=== PATIENT | male | born 1945 | race Hispanic/Latino ===

== ENCOUNTER 2018-08-21 03:56 | Inpatient (IN) | payer MEDICARE, OTHER ==
[~2018-08-21 03:56] MED LIST: ADRENALIN ONE
--- NOTE | 2018-08-21 04:48 | Emergency Department Report ---
ED Shortness of Breath HPI - General Chief Complaint: Cardiac Arrest/CPR Stated Complaint: RESP DISTRESS Time Seen by Provider: 08/21/18 04:09 Source: EMS Mode of arrival: Stretcher Limitations: Other - History of Present Illness Initial Comments: 73-year-old male with history of COPD, sleep apnea, chronic kidney disease, liver disease, morbid obesity presents to ED in respiratory arrest. states patient has been having some shortness of breath since being discharged from the [facility] at the end of last month. Patient is on 2 L of O2 chronically. Uses CPAP at night. Prior to EMS arrival patient became increasingly short of breath while on his CPAP. EMS states patient was alert and talking on their arrival but was slightly confused. O2 sats in the 80s on CPAP. Patient then went into cardiac arrest with EMS just prior to arrival, with reported rhythm of asystole. Upon ED arrival patient noted to be in PEA. ACLS was initiated. MD Complaint: shortness of breath -: During the night Severity: severe Improves With: nothing Worsens With: exertion Known History Of: COPD Treatments Prior to Arrival: oxygen, intubation - Related Data Home Oxygen Therapy: Yes Home Oxygen Amount: 2 Liters Home Medications Medication Instructions Recorded Confirmed Last Taken AtorvaSTATin [Lipitor] 10 mg PO QHS 08/21/18 08/21/18 Unknown Ferrous Sulfate [Feosol] 325 mg PO QDAY 08/21/18 08/21/18 Unknown Melatonin [Melatonin 10MG CAP] 10 mg PO DAILY 08/21/18 08/21/18 Unknown NIFEdipine [Nifedipine ER] 60 mg PO BID 08/21/18 08/21/18 Unknown Sennosides Tab [Senokot] 1 tab PO HS 08/21/18 08/21/18 Unknown Tamsulosin [Flomax] 2 cap PO HS 08/21/18 08/21/18 Unknown Torsemide [Demadex] 20 mg PO DAILY 08/21/18 08/21/18 Unknown Venlafaxine HCl [Venlafaxin ER] 75 mg PO QDAY 08/21/18 08/21/18 Unknown buPROPion [Wellbutrin] 100 mg PO DAILY 08/21/18 08/21/18 Unknown Allergies Allergy/AdvReac Type Severity Reaction Status Date / Time Penicillins Allergy Unknown Verified 08/21/18 04:49 -cillins Allergy Unknown Uncoded 06/24/19 04:49 ED Review of Systems ROS: Stated complaint: RESP DISTRESS Other details as noted in HPI Comment: Unobtainable due to pts medical conditions (cardiac arrest) ED Past Medical Hx - Past Medical History Previous Medical History?: Yes Hx COPD: Yes - Surgical History Past Surgical History?: Yes Additional Surgical History: unknown - Social History Smoking Status: Unknown if ever smoked - Medications Home Medications: Home Medications Medication Instructions Recorded Confirmed Last Taken Type AtorvaSTATin [Lipitor] 10 mg PO QHS 08/21/18 08/21/18 Unknown History Ferrous Sulfate [Feosol] 325 mg PO QDAY 08/21/18 08/21/18 Unknown History Melatonin [Melatonin 10MG CAP] 10 mg PO DAILY 08/21/18 08/21/18 Unknown History NIFEdipine [Nifedipine ER] 60 mg PO BID 08/21/18 08/21/18 Unknown History Sennosides Tab [Senokot] 1 tab PO HS 08/21/18 08/21/18 Unknown History Tamsulosin [Flomax] 2 cap PO HS 08/21/18 08/21/18 Unknown History Torsemide [Demadex] 20 mg PO DAILY 08/21/18 08/21/18 Unknown History Venlafaxine HCl [Venlafaxin ER] 75 mg PO QDAY 08/21/18 08/21/18 Unknown History buPROPion [Wellbutrin] 100 mg PO DAILY 08/21/18 08/21/18 Unknown History ED Physical Exam - General Limitations: Other General appearance: obese - Head Head exam: Present: atraumatic, normocephalic - Eye Eye exam: Present: normal appearance, PERRL - ENT ENT exam: Present: mucous membranes moist - Neck Neck exam: Present: normal inspection - Respiratory Respiratory exam: Present: other (agonal breaths present) - Cardiovascular Cardiovascular Exam: Present: other (pulseless) - GI/Abdominal GI/Abdominal exam: Present: soft. Absent: distended - Extremities Exam Extremities exam: Absent: pedal edema - Neurological Exam Neurological exam: Present: other (GCS= 3) - Skin Skin exam: Present: warm, dry, intact, normal color ED Course Vital Signs 08/21/18 08/21/18 08/21/18 03:56 04:00 04:16 Temperature Pulse Rate 65 74 Respiratory 43 H 13 Rate Blood Pressure 129/64 141/66 O2 Sat by Pulse 84 80 L 100 Oximetry 08/21/18 08/21/18 08/21/18 04:30 05:00 05:15 Temperature Pulse Rate 66 69 69 Respiratory 16 19 11 L Rate Blood Pressure 129/58 125/55 107/62 O2 Sat by Pulse 100 99 96 Oximetry 08/21/18 08/21/18 08/21/18 05:30 05:45 05:48 Temperature Pulse Rate 65 63 Respiratory 15 17 Rate Blood Pressure 101/68 106/37 O2 Sat by Pulse 96 94 100 Oximetry 08/21/18 08/21/18 08/21/18 06:00 06:15 06:30 Temperature Pulse Rate 63 72 73 Respiratory 16 16 16 Rate Blood Pressure 110/45 99/34 124/40 O2 Sat by Pulse 93 97 93 Oximetry 08/21/18 08/21/18 08/21/18 06:45 07:00 07:01 Temperature Pulse Rate 73 72 Respiratory 17 15 Rate Blood Pressure 117/42 134/68 O2 Sat by Pulse 95 96 94 Oximetry 08/21/18 08/21/18 08/21/18 07:15 07:30 07:45 Temperature Pulse Rate 70 68 65 Respiratory 23 26 H 26 H Rate Blood Pressure 124/50 119/75 117/50 O2 Sat by Pulse 99 97 99 Oximetry 08/21/18 08/21/18 08/21/18 08:00 08:15 08:24 Temperature Pulse Rate 62 60 59 L Respiratory 26 H 26 H Rate Blood Pressure 117/52 110/52 110/47 O2 Sat by Pulse 99 98 98 Oximetry 08/21/18 08/21/18 08/21/18 08:30 08:45 09:00 Temperature Pulse Rate 59 L 58 L 57 L Respiratory 26 H 26 H 26 H Rate Blood Pressure 113/50 112/50 106/52 O2 Sat by Pulse 95 97 97 Oximetry 08/21/18 08/21/18 08/21/18 09:15 09:30 09:45 Temperature Pulse Rate 58 L 62 64 Respiratory 26 H 20 23 Rate Blood Pressure 109/49 116/47 124/50 O2 Sat by Pulse 100 100 100 Oximetry 08/21/18 08/21/18 08/21/18 10:00 10:15 10:30 Temperature Pulse Rate 67 69 69 Respiratory 11 L 8 L 14 Rate Blood Pressure 124/52 129/52 135/62 O2 Sat by Pulse 96 96 95 Oximetry 08/21/18 08/21/18 08/21/18 10:45 11:15 11:30 Temperature Pulse Rate 71 72 72 Respiratory 12 22 18 Rate Blood Pressure 144/57 140/64 126/42 O2 Sat by Pulse 95 100 99 Oximetry 08/21/18 08/21/18 08/21/18 11:45 12:00 12:15 Temperature Pulse Rate 71 70 72 Respiratory 10 L 28 H 22 Rate Blood Pressure 120/46 120/46 123/41 O2 Sat by Pulse 96 95 97 Oximetry 08/21/18 08/21/18 08/21/18 12:31 12:45 12:51 Temperature Pulse Rate 69 72 72 Respiratory 15 28 H Rate Blood Pressure 105/45 129/46 128/48 O2 Sat by Pulse 95 100 99 Oximetry 08/21/18 08/21/18 08/21/18 13:01 13:15 13:30 Temperature Pulse Rate 72 73 73 Respiratory 12 12 11 L Rate Blood Pressure 126/76 126/47 116/50 O2 Sat by Pulse 92 Oximetry 08/21/18 08/21/18 08/21/18 13:45 14:00 14:15 Temperature Pulse Rate 71 71 74 Respiratory 13 17 20 Rate Blood Pressure 116/46 114/47 96/49 O2 Sat by Pulse 94 Oximetry 08/21/18 08/21/18 08/21/18 14:30 14:45 15:00 Temperature Pulse Rate 73 73 72 Respiratory 16 21 14 Rate Blood Pressure 111/46 110/43 111/43 O2 Sat by Pulse 89 94 95 Oximetry 08/21/18 08/21/18 08/21/18 15:15 15:30 15:45 Temperature Pulse Rate 72 72 72 Respiratory 19 25 H 22 Rate Blood Pressure 110/41 112/45 113/48 O2 Sat by Pulse 94 95 97 Oximetry 08/21/18 08/21/18 08/21/18 16:00 16:15 16:30 Temperature Pulse Rate 72 72 72 Respiratory 18 15 23 Rate Blood Pressure 113/47 115/50 115/48 O2 Sat by Pulse 100 97 97 Oximetry 08/21/18 08/21/18 08/21/18 16:45 17:00 17:15 Temperature Pulse Rate 73 73 73 Respiratory 24 10 L 10 L Rate Blood Pressure 117/47 117/49 112/47 O2 Sat by Pulse 99 100 100 Oximetry 08/21/18 08/21/18 08/21/18 17:30 17:32 17:45 Temperature 97.6 F Pulse Rate 73 73 Respiratory 13 13 Rate Blood Pressure 118/51 116/46 O2 Sat by Pulse 100 100 Oximetry 08/21/18 08/21/18 08/21/18 18:00 18:15 18:30 Temperature Pulse Rate 73 73 73 Respiratory 9 L 17 15 Rate Blood Pressure 118/48 119/49 118/47 O2 Sat by Pulse 100 100 100 Oximetry 08/21/18 08/21/18 08/21/18 18:45 19:00 19:15 Temperature Pulse Rate 73 73 73 Respiratory 11 L 18 16 Rate Blood Pressure 118/48 119/49 117/48 O2 Sat by Pulse 100 100 100 Oximetry 08/21/18 08/21/18 08/21/18 19:25 19:30 19:45 Temperature Pulse Rate 73 72 72 Respiratory 12 19 Rate Blood Pressure 114/48 116/48 116/47 O2 Sat by Pulse 100 99 97 Oximetry 08/21/18 08/21/18 08/21/18 20:00 20:15 20:30 Temperature 98.1 F Pulse Rate 72 72 72 Respiratory 18 15 13 Rate Blood Pressure 118/48 118/49 118/45 O2 Sat by Pulse 98 99 99 Oximetry 08/21/18 08/21/18 08/21/18 20:45 21:00 21:15 Temperature Pulse Rate 72 72 72 Respiratory 13 18 19 Rate Blood Pressure 121/49 117/48 118/52 O2 Sat by Pulse 99 99 99 Oximetry 08/21/18 08/21/18 08/21/18 21:30 21:45 22:00 Temperature Pulse Rate 72 74 71 Respiratory 18 12 28 H Rate Blood Pressure 124/51 126/52 118/49 O2 Sat by Pulse 99 97 99 Oximetry 08/21/18 08/21/18 08/21/18 22:15 22:30 22:45 Temperature Pulse Rate 72 71 71 Respiratory 26 H 28 H 24 Rate Blood Pressure 116/49 115/49 116/48 O2 Sat by Pulse 98 99 99 Oximetry 08/21/18 08/21/18 08/21/18 23:00 23:15 23:46 Temperature Pulse Rate 71 71 70 Respiratory 24 26 H 27 H Rate Blood Pressure 114/50 117/47 O2 Sat by Pulse 99 99 95 Oximetry 08/21/18 08/21/18 23:49 23:50 Temperature Pulse Rate 70 70 Respiratory 28 H Rate Blood Pressure 122/48 122/48 O2 Sat by Pulse 98 100 Oximetry - Reevaluation(s) Reevaluation #1: 08/21/18 04:10 Upon arrival pt in cardiac arrest. Poorly intubated by EMS, so tube removed and I intubated via Glidescope. No IV access upon arrival. After nurses obtained IV access, pt received 1 amp of bicarb, 2 rounds of Epi prior to pulse return. Right femoral line placed - Central Line Placement Right Femoral Consent Obtained: emergent situation Patient Placed on Monitor/Pulse Ox: Yes MD Prep: mask, gown, gloves Central Line Prep: Chlorhexidine scrub, sterile drapes applied Ultrasound Used for Placement: Yes Central Line Lumen Inserted: triple Central Line Position: good blood return, all ports aspirated, flus, sutured in place with nyl Dressing Applied: Tegaderm Patient Tolerated Procedure: well Complications: none - Intubation Laryngoscope: fiberoptic video scope ET Tube Size: 7.5 Tube Secured Depth (cm): 25 Tube Secured Location: teeth Tube Placement Confirmation: visualized tube passing t, equal breath sounds bilat, no breath sounds over epi, confirmation by capnometr Patient Tolerated Procedure: well Intubation Complications: none ED Medical Decision Making - Lab Data Result diagrams: 08/22/18 06:10 08/22/18 06:10 - EKG Data -: EKG Interpreted by Mn EKG shows normal: ST-T waves - EKG Data Interpretation: other (RBBB, prolonged MN, prior inferior infarct) - Radiology Data Radiology results: report reviewed, image reviewed - Medical Decision Making 73-year-old male status post cardiac arrest. Return of pulse after 2 rounds of epinephrine. Patient has WBCs and 19, with lactic acid of 5. Chest x-ray shows bilateral lower lung infiltrates with effusions. Blood cultures drawn, patient given antibiotic therapy to cover for hospital-acquired pneumonia, vancomycin and aztreonam, since he was recently hospitalized. 30/kg dosing of NS held due to volume overload. Effusions, possible edema, on CXR and BNP elevated. BP is currently stable, and administration of such a large volume of fluids may cause cardiac decline, given existing signs of cardiac and renal failure. reports history of chronic kidney disease. Creatinine is currently 4.3, with potassium of 6. Baseline creatinine is unknown, as patient has no previous records at this facility. Possibly acute on chronic renal failure. Hyperkalemia treatment initiated, including albuterol, insulin, D50, calcium chloride. EKG shows right bundle branch block, possibly widened due to the hyperkalemia. No ST changes present, troponin 0.03. Spoke w/ Dr Weber, hospitalist, for further management. - Differential Diagnosis COPD, ACS, pneumonia, pulm edema Critical Care Time: Yes Critical care time in (mins) excluding proc time.: 35 Critical care attestation.: If time is entered above; I have spent that time in minutes in the direct care of this critically ill patient, excluding procedure time. Critical Care Time: 35 minutes ED Disposition Clinical Impression: Cardiac arrest, Sepsis, Hyperkalemia, Lactic acidosis, Acute renal failure, Pneumonia Disposition: OP ADMIT IP TO THIS HOSP Is pt being admited?: Yes Condition: Stable Time of Disposition: 05:51
[2018-08-21 05:04] LABS: Hematocrit 24.5 % (35.5-45.6); Hemoglobin 7.7 gm/dl (11.8-15.2); Mean Corpuscular HGB Conc 32 % (32-34); Mean Corpuscular Hemoglobin 31 pg (28-32); Mean Corpuscular Volume 98 fl (84-94); Platelet Count 190 K/mm3 (140-440); Red Blood Count 2.49 M/mm3 (3.65-5.03); Red Cell Distribution Width 17.7 % (13.2-15.2)
[2018-08-21 05:09] LABS: INR 1.76 (0.87-1.13); Partial Thromboplastin Time 30.8 Sec. (24.2-36.6)
[2018-08-21] MEDS ORDERED: VANCOMYCIN/NS 1 GM/250 ML 1 GM/250 ML BAG IV ONE (05:15)
[2018-08-21] MEDS ORDERED: AZACTAM/NS 1 GM/50 ML 1 GM/50 ML VIAL IV ONE (05:15)
[2018-08-21] MEDS ORDERED: DIPRIVAN 10 MG/ML 1,000 MG/100 ML BOTTLE IV ONE ×2 (05:16→09:51)
[2018-08-21 05:18] LABS: Albumin 3.2 g/dL (3.9-5); Calcium 8.8 mg/dL (8.4-10.2)
[2018-08-21] MEDS ORDERED: CALCIUM CHLORIDE IV ONE (05:24)
[2018-08-21] MEDS ORDERED: KIONEX PR ONE (05:25)
[2018-08-21] MEDS ORDERED: HumuLIN R IV ONE (05:25)
[2018-08-21] MEDS ORDERED: D50W (25GM) Syringe IV ONE (05:25)
[2018-08-21] MEDS ORDERED: PROVENTIL IH ONE ×2 (05:25→08:48)
[2018-08-21] MEDS ORDERED: NACL 0.9% 1000 ML 1,000 ML IV ONE (05:36)
--- NOTE | 2018-08-21 05:43 | XRay Report ---
PROCEDURE: XR CHEST 1V AP TECHNIQUE: Chest radiograph single view. HISTORY: resp distress, post-intubation COMPARISONS: None . FINDINGS: Heart: Normal. Mediastinum/Vessels: Normal. Lungs/Pleural space: Bilateral lower lung infiltrates. Mild vascular congestion. Slight pleural effu sions. Bony thorax: No acute osseous abnormality. Life support devices: The endotracheal tube ends 2 cm above the joby. IMPRESSION: Mild bilateral lower lung infiltrates. Mild vascular congestion with slight pleural effu sions. The endotracheal tube ends 2 cm above the joby. This document is electronically signed by Jaycee Zayas DO., August 21 2018 05:42:14 AM ET
[2018-08-21 05:46] LABS: Basophils % (Manual) 0 % (0.0-1.8); Eosinophils % (Manual) 0 % (0.0-4.3); RBC Morphology Normal; Total Cells Counted 100
[2018-08-21] MEDS: DIPRIVAN 10 MG/ML 1,000 MG/100 ML BOTTLE IV SCH ×2 (05:57→09:57)
[2018-08-21 06:03] LABS: Chol/HDL Ratio 2.26 %
[2018-08-21] MEDS ORDERED: SODIUM CHLORIDE FLUSH SYRINGE 10 ML IV PRN (06:31)
[2018-08-21] MEDS ORDERED: ZOFRAN IV PRN (06:31)
[2018-08-21] MEDS ORDERED: TYLENOL PR PRN (06:31)
[2018-08-21] MEDS ORDERED: LEVAQUIN 750MG/150ML 750 MG/150 ML BAG IV SCH ×2 (06:33→06:45)
--- NOTE | 2018-08-21 06:38 | History and Physical Report ---
History of Present Illness Date of examination: 08/21/18 History of present illness: History is per the at bedside. 73 -year-old man with a history of COPD, chronic kidney disease, liver disease, diabetes, GITA, colon cancer, comes to the emergency room with complaints of shortness of breath. Per the he was in the hospital in June for COPD. Probably discharge he had decreased oral intake, last time became more short of breath, hallucinating and then became combative, pulling off his CPAP. She called EMS, they had difficulty intubating the patient in the field, he was bagged, per EMS, when he arrived at the entrance of the hospital he lost his pulse. Patient was intubated in the emergency room, given 2 rounds of epi with ROSC. Status post hyperkalemic cocktail PAST MEDICAL HISTORY:COPD, chronic kidney disease, liver disease, diabetes, GITA, colon cancer PAST SURGICAL HISTORY: Colon resection SOCIAL HISTORY: Denies alcohol, drugs, tobacco FAMILY HISTORY: Hypertension Medications and Allergies Allergies Allergy/AdvReac Type Severity Reaction Status Date / Time Penicillins Allergy Unknown Verified 08/21/18 04:49 -cillins Allergy Unknown Uncoded 08/21/18 04:49 Home Medications Medication Instructions Recorded Confirmed Last Taken Type AtorvaSTATin [Lipitor] 10 mg PO QHS 08/21/18 08/21/18 Unknown History Ferrous Sulfate [Feosol] 325 mg PO QDAY 08/21/18 08/21/18 Unknown History Melatonin [Melatonin 10MG CAP] 10 mg PO DAILY 08/21/18 08/21/18 Unknown History NIFEdipine [Nifedipine ER] 60 mg PO BID 08/21/18 08/21/18 Unknown History Sennosides Tab [Senokot] 1 tab PO HS 08/21/18 08/21/18 Unknown History Tamsulosin [Flomax] 2 cap PO HS 08/21/18 08/21/18 Unknown History Torsemide [Demadex] 20 mg PO DAILY 08/21/18 08/21/18 Unknown History Venlafaxine HCl [Venlafaxin ER] 75 mg PO QDAY 08/21/18 08/21/18 Unknown History buPROPion [Wellbutrin] 100 mg PO DAILY 08/21/18 08/21/18 Unknown History Active Meds: Active Medications Acetaminophen (Tylenol) 650 mg PO Q4H PRN PRN Reason: Pain MILD(1-3)/Fever >100.5/COOK Acetaminophen (Tylenol) 650 mg AR Q4H PRN PRN Reason: Pain MILD(1-3)/Fever >100.5/COOK Enoxaparin Sodium (Lovenox) 30 mg SUB-Q QDAY LUIS Vancomycin HCl (Vancomycin/Ns 1 Gm/250 Ml) 1 gm in 250 mls @ 167.007 mls/hr IV ONCE ONE; Protocol Stop: 08/21/18 06:44 Last Admin: 08/21/18 06:10 Dose: 167.007 mls/hr Documented by: Propofol (Diprivan 10 Mg/Ml) 1,000 mg in 100 mls @ 4.232 mls/hr IV TITR LUIS; Protocol Last Admin: 08/21/18 05:57 Dose: 10 mcg/kg/min, 8.464 mls/hr Documented by: Sodium Chloride (Nacl 0.9% 1000 Ml) 1,000 mls @ 150 mls/hr IV DIRECT LUIS Levofloxacin/Dextrose (Levaquin 750mg/150ml) 750 mg in 150 mls @ 100 mls/hr IV Q24H LUIS Methylprednisolone Sodium Succinate (Solu-Medrol) 125 mg IV Q6HR LUIS Ondansetron HCl (Zofran) 4 mg IV Q8H PRN PRN Reason: Nausea And Vomiting Sodium Chloride (Sodium Chloride Flush Syringe 10 Ml) 10 ml IV BID LUIS Sodium Chloride (Sodium Chloride Flush Syringe 10 Ml) 10 ml IV PRN PRN PRN Reason: LINE FLUSH Exam - Physical Exam Narrative exam: General Apperance: The patient lying in bed, breathing comfortable, intubated HEENT: Normocephalic, atraumatic. Pupils equally round and reactive to light, unable to do EOM, no sclericterus or JVD or thyromegaly or nodule. , no carotid bruit, mucous membranes moist, unable to examine oral cavity, ET tube in place Heart: S1-S2, regular is rhythm Lungs: Clear to auscultation bilaterally, breathing comfortable Abdomen: Positive bowel sounds, soft, nondistended, no organomegaly Extremities: No edema cyanosis clubbing Skin: no rash, nodule, warm and dry Neuro: Sedated - Constitutional Vitals: Temp Pulse Resp BP Pulse Ox 65 15 101/68 100 08/21/18 05:30 08/21/18 05:30 08/21/18 05:30 08/21/18 05:48 Results - Labs CBC & Chem 7: 08/24/18 10:10 08/24/18 14:27 Labs: Abnormal lab results 08/21/18 08/21/18 08/21/18 Range/Units 04:42 04:42 04:42 WBC 19.1 H (4.5-11.0) K/mm3 RBC 2.49 L (3.65-5.03) M/mm3 Hgb 7.7 L (11.8-15.2) gm/dl Hct 24.5 L (35.5-45.6) % MCV 98 H (84-94) fl RDW 17.7 H (13.2-15.2) % Seg Neuts % (Manual) 84.0 H (40.0-70.0) % Lymphocytes % (Manual) 7.0 L (13.4-35.0) % Monocytes % (Manual) 9.0 H (0.0-7.3) % Seg Neutrophils # Man 16.0 H (1.8-7.7) K/mm3 Monocytes # (Manual) 1.7 H (0.0-0.8) K/mm3 PT 20.1 H (12.2-14.9) Sec. INR 1.76 H (0.87-1.13) POC ABG pH (7.35-7.45) POC ABG pCO2 (35-45) POC ABG pO2 (80-105) Potassium (3.6-5.0) mmol/L Carbon Dioxide (22-30) mmol/L BUN (9-20) mg/dL Creatinine (0.8-1.5) mg/dL Glucose (75-100) mg/dL Lactic Acid (0.7-2.0) mmol/L Total Bilirubin (0.1-1.2) mg/dL AST (5-40) units/L ALT (7-56) units/L Troponin T 0.032 H (0.00-0.029) ng/mL NT-Pro-B Natriuret Pep (0-900) pg/mL Albumin (3.9-5) g/dL LDL Cholesterol Direct 44 L (50-130) mg/dL 08/21/18 08/21/18 08/21/18 Range/Units 04:42 04:42 04:42 WBC (4.5-11.0) K/mm3 RBC (3.65-5.03) M/mm3 Hgb (11.8-15.2) gm/dl Hct (35.5-45.6) % MCV (84-94) fl RDW (13.2-15.2) % Seg Neuts % (Manual) (40.0-70.0) % Lymphocytes % (Manual) (13.4-35.0) % Monocytes % (Manual) (0.0-7.3) % Seg Neutrophils # Man (1.8-7.7) K/mm3 Monocytes # (Manual) (0.0-0.8) K/mm3 PT (12.2-14.9) Sec. INR (0.87-1.13) POC ABG pH (7.35-7.45) POC ABG pCO2 (35-45) POC ABG pO2 (80-105) Potassium 6.0 H (3.6-5.0) mmol/L Carbon Dioxide 15 L (22-30) mmol/L BUN 57 H (9-20) mg/dL Creatinine 4.3 H (0.8-1.5) mg/dL Glucose 111 H (75-100) mg/dL Lactic Acid 5.80 H* (0.7-2.0) mmol/L Total Bilirubin 1.80 H (0.1-1.2) mg/dL AST 212 H (5-40) units/L ALT 94 H (7-56) units/L Troponin T (0.00-0.029) ng/mL NT-Pro-B Natriuret Pep 42651 H (0-900) pg/mL Albumin 3.2 L (3.9-5) g/dL LDL Cholesterol Direct (50-130) mg/dL 08/21/18 08/21/18 08/21/18 Range/Units 05:08 05:58 05:58 WBC (4.5-11.0) K/mm3 RBC (3.65-5.03) M/mm3 Hgb (11.8-15.2) gm/dl Hct (35.5-45.6) % MCV (84-94) fl RDW (13.2-15.2) % Seg Neuts % (Manual) (40.0-70.0) % Lymphocytes % (Manual) (13.4-35.0) % Monocytes % (Manual) (0.0-7.3) % Seg Neutrophils # Man (1.8-7.7) K/mm3 Monocytes # (Manual) (0.0-0.8) K/mm3 PT (12.2-14.9) Sec. INR (0.87-1.13) POC ABG pH 7.164 L (7.35-7.45) POC ABG pCO2 46.3 H (35-45) POC ABG pO2 229 H (80-105) Potassium (3.6-5.0) mmol/L Carbon Dioxide (22-30) mmol/L BUN (9-20) mg/dL Creatinine (0.8-1.5) mg/dL Glucose (75-100) mg/dL Lactic Acid 5.10 H* (0.7-2.0) mmol/L Total Bilirubin (0.1-1.2) mg/dL AST (5-40) units/L ALT (7-56) units/L Troponin T 0.035 H (0.00-0.029) ng/mL NT-Pro-B Natriuret Pep (0-900) pg/mL Albumin (3.9-5) g/dL LDL Cholesterol Direct (50-130) mg/dL - Imaging and Cardiology EKG: image reviewed Chest x-ray: report reviewed Assessment and Plan Assessment Acute respiratory failure Cardiac arrest Sepsis COPD exacerbation Pneumonia, HCAP Hyperkalemia Probably acute on chronic kidney disease Abnormal cardiac enzymes liver disease diabetes GITA colon cancer Plan Admit to medicine Start IV fluids, broad-spectrum antibiotics, IV steroids Check cardiac enzymes, echo, consult cardiology, critical care Continue sedation, s/p hyperkalemic cocktail, low potassium Check fingersticks and initiate insulin sliding scale Repeat ABG now DVT prophylaxis
[2018-08-21] MEDS ORDERED: D50W (25GM) Syringe IV PRN (06:48)
[2018-08-21] MEDS ORDERED: NACL 0.9% 1000 ML 1,000 ML IV SCH (07:00)
[2018-08-21] MEDS ORDERED: LEVAQUIN 750MG/150ML 750 MG/150 ML BAG IV ONE (07:51)
[2018-08-21] MEDS ORDERED: SOLU-Medrol ONE ×3 (07:51→19:28)
[2018-08-21 08:09] LABS: Creatine Kinase MB 9.1 ng/mL (0.0-4.0)
[2018-08-21] MEDS: SOLU-Medrol IV SCH ×3 (08:12→19:28)
--- NOTE | 2018-08-21 09:10 | Event Note ---
Date: 08/21/18 Admitted this morning; This is his only visit in our EMR and son at bedside. Intubated and sedated with diprivan AVSS Critical ill appearing, morbid obese bmi 50.2 lungs coarse bs with crackles abd soft kessler present Right TLC femoral line present ABG noted, still acidotic, consulted and d/w Dr. Dillon consulted nephrology
[2018-08-21] MEDS: SODIUM CHLORIDE FLUSH SYRINGE 10 ML IV SCH (09:30)
--- NOTE | 2018-08-21 09:52 | Consultation ---
History of Present Illness Consult date: 08/21/18 Requesting physician: HORACIO MENDEZ History of present illness: History is per the at bedside. 73 -year-old man with a history of COPD on home oxygen at 2L/min, chronic kidney disease, liver disease, diabetes, GITA, colon cancer, comes to the emergency room with complaints of shortness of breath. Per the he was in the hospital in June at the [facility] for shortness of breath, requiring BIPAP for several days. At the time she states he was diagnosed with CHF, but her denies that he has any heart problems. Since discharge he had decreased oral intake and ongoing shortness of breath.Last night he became more short of breath, hallucinating and then became combative, pulling off his home CPAP. She called EMS, they had difficulty intubating the patient in the field, he was bagged, per EMS, when he arrived at the entrance of the hospital he lost his pulse. Per EMS/ED notes -EMS states patient was alert and talking on their arrival but was slightly confused. O2 sats in the 80s on CPAP. Patient then went into cardiac arrest with EMS just prior to arrival, with reported rhythm of asystole. Upon ED arrival patient noted to be in PEA. ACLS was initiated. Patient was intubated in the emergency room, given 2 rounds of epinephrine, chest compressions with ROSC. A right femoral CVC was placed He is currently intubated. I have been consulted for critical care management. Patient was seen and examined. Vitals, labs, medications, chart and imaging were reviewed. Medications and Allergies Allergies Allergy/AdvReac Type Severity Reaction Status Date / Time Penicillins Allergy Unknown Verified 08/21/18 04:49 -cillins Allergy Unknown Uncoded 08/21/18 04:49 Home Medications Medication Instructions Recorded Confirmed Last Taken Type AtorvaSTATin [Lipitor] 10 mg PO QHS 08/21/18 08/21/18 Unknown History Ferrous Sulfate [Feosol] 325 mg PO QDAY 08/21/18 08/21/18 Unknown History Melatonin [Melatonin 10MG CAP] 10 mg PO DAILY 08/21/18 08/21/18 Unknown History NIFEdipine [Nifedipine ER] 60 mg PO BID 08/21/18 08/21/18 Unknown History Sennosides Tab [Senokot] 1 tab PO HS 08/21/18 08/21/18 Unknown History Tamsulosin [Flomax] 2 cap PO HS 08/21/18 08/21/18 Unknown History Torsemide [Demadex] 20 mg PO DAILY 08/21/18 08/21/18 Unknown History Venlafaxine HCl [Venlafaxin ER] 75 mg PO QDAY 08/21/18 08/21/18 Unknown History buPROPion [Wellbutrin] 100 mg PO DAILY 08/21/18 08/21/18 Unknown History Active Meds: Active Medications Acetaminophen (Tylenol) 650 mg PO Q4H PRN PRN Reason: Pain MILD(1-3)/Fever >100.5/COOK Acetaminophen (Tylenol) 650 mg [place] Q4H PRN PRN Reason: Pain MILD(1-3)/Fever >100.5/COOK Dextrose (D50w (25gm) Syringe) 50 ml IV PRN PRN PRN Reason: Hypoglycemia Propofol (Diprivan 10 Mg/Ml) 1,000 mg in 100 mls @ 4.232 mls/hr IV TITR LUIS; Protocol Last Titration: 08/21/18 07:32 Dose: 30 mcg/kg/min, 25.392 mls/hr Documented by: Levofloxacin/Dextrose (Levaquin 750mg/150ml) 750 mg in 150 mls @ 100 mls/hr IV Q48HR LUIS Last Admin: 08/21/18 08:14 Dose: 100 mls/hr Documented by: Aztreonam (Azactam/Ns 1 Gm/50 Ml) 1 gm in 50 mls @ 50 mls/hr IV Q8HR LUIS; Protocol Sodium Bicarbonate 150 meq/ (Dextrose) 1,150 mls @ 100 mls/hr IV DIRECT LUIS Insulin Human Lispro (Humalog) 0 unit SUB-Q Q6HR LUIS; Protocol Methylprednisolone Sodium Succinate (Solu-Medrol) 125 mg IV Q6HR LUIS Last Admin: 08/21/18 08:12 Dose: 125 mg Documented by: Ondansetron HCl (Zofran) 4 mg IV Q8H PRN PRN Reason: Nausea And Vomiting Sodium Chloride (Sodium Chloride Flush Syringe 10 Ml) 10 ml IV BID LUIS Last Admin: 08/21/18 09:30 Dose: 10 ml Documented by: Sodium Chloride (Sodium Chloride Flush Syringe 10 Ml) 10 ml IV PRN PRN PRN Reason: LINE FLUSH Review of Systems ROS unobtainable: due to endotracheal tube, due to mental status Physical Examination Vital signs: Vital Signs Pulse Ox 84 08/21/18 03:56 General appearance: lethargic, appears uncomfortable, other (morbidly obese) Eyes: non-icteric ENT: oropharynx dry, other (orally intubated, ETT 8, 24cm at the lip, OGT in place) Neck: supple, no JVD, other (short neck) Effort: mildly labored Ascultation: Bilateral: diminished breath sounds, rhonchi (coarse BS bilaterall y) Cardiovascular: regular rate and rhythm, other (S1,S2, no murmurs, no gallops or rubs) Gastrointestinal: normoactive bowel sounds, soft, non-tender, non-distended, other (Madison catheter in place, minimal urine tea colored) Integumentary: normal Extremities: no cyanosis, no edema, pulses normal, no ischemia or petechiae unable to assess other (intubated, on fentanyl) Results - Laboratory Findings CBC and BMP: 08/22/18 06:10 08/21/18 10:43 ABG POC ABG pH 7.160 (7.35-7.45) L 08/21/18 06:53 POC ABG pCO2 46.8 (35-45) H 08/21/18 06:53 POC ABG pO2 88 (80-105) 08/21/18 06:53 POC ABG HCO3 16.7 (22-26 mml/L) 08/21/18 06:53 POC ABG Total CO2 18 (23-27mmol/L) 08/21/18 06:53 POC ABG O2 Sat 93 08/21/18 06:53 PT/INR, D-dimer PT 20.1 Sec. (12.2-14.9) H 08/21/18 04:42 INR 1.76 (0.87-1.13) H 08/21/18 04:42 Abnormal lab findings: Abnormal Labs 08/21/18 08/21/18 08/21/18 04:42 04:42 04:42 WBC 19.1 H RBC 2.49 L Hgb 7.7 L Hct 24.5 L MCV 98 H RDW 17.7 H Seg Neuts % (Manual) 84.0 H Lymphocytes % (Manual) 7.0 L Monocytes % (Manual) 9.0 H Seg Neutrophils # Man 16.0 H Monocytes # (Manual) 1.7 H PT 20.1 H INR 1.76 H POC ABG pH POC ABG pCO2 POC ABG pO2 Potassium Carbon Dioxide BUN Creatinine Glucose Lactic Acid Total Bilirubin AST ALT Total Creatine Kinase CK-MB (CK-2) Troponin T 0.032 H NT-Pro-B Natriuret Pep Albumin LDL Cholesterol Direct 44 L 08/21/18 08/21/18 08/21/18 04:42 04:42 04:42 WBC RBC Hgb Hct MCV RDW Seg Neuts % (Manual) Lymphocytes % (Manual) Monocytes % (Manual) Seg Neutrophils # Man Monocytes # (Manual) PT INR POC ABG pH POC ABG pCO2 POC ABG pO2 Potassium 6.0 H Carbon Dioxide 15 L BUN 57 H Creatinine 4.3 H Glucose 111 H Lactic Acid 5.80 H* Total Bilirubin 1.80 H AST 212 H ALT 94 H Total Creatine Kinase CK-MB (CK-2) Troponin T NT-Pro-B Natriuret Pep 83323 H Albumin 3.2 L LDL Cholesterol Direct 08/21/18 08/21/18 08/21/18 05:08 05:58 05:58 WBC RBC Hgb Hct MCV RDW Seg Neuts % (Manual) Lymphocytes % (Manual) Monocytes % (Manual) Seg Neutrophils # Man Monocytes # (Manual) PT INR POC ABG pH 7.164 L POC ABG pCO2 46.3 H POC ABG pO2 229 H Potassium Carbon Dioxide BUN Creatinine Glucose Lactic Acid 5.10 H* Total Bilirubin AST ALT Total Creatine Kinase CK-MB (CK-2) Troponin T 0.035 H NT-Pro-B Natriuret Pep Albumin LDL Cholesterol Direct 08/21/18 08/21/18 08/21/18 06:45 06:45 06:53 WBC RBC Hgb Hct MCV RDW Seg Neuts % (Manual) Lymphocytes % (Manual) Monocytes % (Manual) Seg Neutrophils # Man Monocytes # (Manual) PT INR POC ABG pH 7.160 L POC ABG pCO2 46.8 H POC ABG pO2 Potassium Carbon Dioxide BUN Creatinine Glucose Lactic Acid 4.70 H* Total Bilirubin AST ALT Total Creatine Kinase 234 H CK-MB (CK-2) 9.1 H Troponin T 0.032 H NT-Pro-B Natriuret Pep Albumin LDL Cholesterol Direct - Diagnostic Findings Chest x-ray: image reviewed (Bilateral alveolar infiltrates, cardiomegally, ETT in position) Assessment and Plan -s/p Cardiopulmonary arrest with ROSC -Acute on chronic hypoxemic respiratory failure on MVS -Lactic acidosis -Acute metabolic/respiratory acidosis -Acute on chronic renal failure (multifactorial) -Sepsis probably secondary to aspiration PNA -AE-COPD -Acute metabolic-toxic encephalopathy -Morbid obesity -NSTEMI- probably type 2 ischemia -Type 2 DM -h/o Liver disease -h/o Colon CA -Hyperkalemia -Would have benefitted from targeted temperature management post cardiopulmonary arrest. Currently hypothermic, I have discussed with his RN that I am comfortable with permissive hypothermia for now. No need to warm him up to normal temperature -Continue with volume resuscitation -Serial cardiac enzymes/troponins, get BNP -2 D echocardiogram -Blood cultures, urine cultures with urinalysis, tracheal aspirate for culture Follow up cultures -Adjust minute ventilation for better gas exchange -Lung protective strategies -Serial CXR and ABG -VAP bundle addressed -Supplemental oxygen to keep O2 sats 88-90% -Restrictive oxygen therapy -Bronchodilators -Chronic home medications fro COPD -Short course of steroids -Accuchecks with glycemic control. Target blood glucose <180mg/dL -Address nutrition within the next 72 hours -Nutrition consult -Agitation management -Titrate sedation to RAAS 0 to -1 -Prevention of delirium, maintenance of sleep-wake cycle -Empiric antibiotic therapy for HAP/aspiration pneumonia -Will de-escalate therapy based on microbiology/AIDE/Cultures -Avoid nephrotoxic agents, adjust all antibiotics and medications for CrCL and GFR -VTE and Stress ulcer prophylaxis( therapeutic PPI for now) -Get FOBT- the aspirate from the OGT appears dark ?old blood -CT head in view of history of colon cancer with encephalopathy -Madison catheter in this critically ill patient with acute on chronic renal failure, requiring strict intake and output monitoring. Will assess daily, the need for ongoing Madison catheter -Will plan to discontinue the femoral CVC and place midline in the next 24 hours -Medical management of hyperkalemia- start bicarbonate infusion to help this this and also for volume resuscitation -[facility]- Renal CONDITION: CRITICAL PROGNOSIS: GUARDED CODE STATUS: FULL CODE Discussed extensively with the patient's son and his who were at the bedside. All their questions were answered. Discussed with the hospitalist, Dr. Mendez and with RT/RN Did notify the family that he may need HD, depending on how his renal function and hemodynamics respond to current therapies The high probability of a clinically significant, sudden or life-threatening deterioration of the [respiratory, cardiovascular, renal , gastrointestinal, neurology] system(s) required my full and direct attention, intervention and personal management. The aggregate critical care time was [75 ] minutes without overlap. Time includes spent on; [x] Data Review and interpretation [x] Patient assessment and monitoring of vital signs [x] Documentation [x] Medication orders and management
[2018-08-21] MEDS ORDERED: LOVENOX SUB-Q SCH (10:00)
[2018-08-21 11:20] LABS: Calcium 8.7 mg/dL (8.4-10.2)
[2018-08-21] MEDS ORDERED: LASIX 100 MG in NACL 0.9% 50 ML IV ONE (11:30)
[2018-08-21] MEDS ORDERED: ARTIFICIAL TEARS OPHTH OINT OU PRN (11:34)
[2018-08-21] MEDS ORDERED: VASELINE LIP THERAPY TP PRN (11:34)
[2018-08-21] MEDS ORDERED: SUBLIMAZE ONE ×3 (11:59→19:29)
[2018-08-21] MEDS ORDERED: fentaNYL DRIP Premix 2,000 MCG/100 ML BAG IV ONE ×3 (11:59→20:32)
[2018-08-21] MEDS: SODIUM BICARBONATE 150 MEQ in D5W 1,000 ML IV SCH (12:16)
[2018-08-21] MEDS: SUBLIMAZE IV PRN ×3 (12:20→18:50)
[2018-08-21] MEDS: fentaNYL DRIP Premix 2,000 MCG/100 ML BAG IV SCH ×4 (12:22→23:51)
[2018-08-21] MEDS: HumaLOG SUB-Q SCH (12:35)
--- NOTE | 2018-08-21 13:11 | Consultation ---
History of Present Illness Consult date: 08/21/18 Requesting physician: MARISSA ESTEBAN Consult reason: cardiac arrest History of present illness: The pt is a 73-year-old male with history of COPD, sleep apnea, chronic kidney disease, liver disease, morbid obesity. He is intubated on evaluation and thus HPI is obtained per the chart. Pt presented to ED in respiratory arrest. states patient has been having some shortness of breath since being discharged from the [facility] at the end of last month. Patient is on 2 L of O2 chronically. Uses CPAP at night. Prior to EMS arrival patient became increasingly short of breath while on his CPAP. EMS states patient was alert and talking on their arrival but was slightly confused. O2 sats in the 80s on CPAP. Patient then went into cardiac arrest with EMS just prior to arrival, with reported rhythm of asystole. Upon ED arrival patient noted to be in PEA. ACLS was initiated. ROSC obtained. Pt remains intubated, in NSR on evaluation. Past History Past Medical History: other (as per HPI) Medications and Allergies Allergies Allergy/AdvReac Type Severity Reaction Status Date / Time Penicillins Allergy Unknown Verified 08/21/18 04:49 -cillins Allergy Unknown Uncoded 08/21/18 04:49 Home Medications Medication Instructions Recorded Confirmed Last Taken Type AtorvaSTATin [Lipitor] 10 mg PO QHS 08/21/18 08/21/18 Unknown History Ferrous Sulfate [Feosol] 325 mg PO QDAY 08/21/18 08/21/18 Unknown History Melatonin [Melatonin 10MG CAP] 10 mg PO DAILY 08/21/18 08/21/18 Unknown History NIFEdipine [Nifedipine ER] 60 mg PO BID 08/21/18 08/21/18 Unknown History Sennosides Tab [Senokot] 1 tab PO HS 08/21/18 08/21/18 Unknown History Tamsulosin [Flomax] 2 cap PO HS 08/21/18 08/21/18 Unknown History Torsemide [Demadex] 20 mg PO DAILY 08/21/18 08/21/18 Unknown History Venlafaxine HCl [Venlafaxin ER] 75 mg PO QDAY 08/21/18 08/21/18 Unknown History buPROPion [Wellbutrin] 100 mg PO DAILY 08/21/18 08/21/18 Unknown History Active Meds: Active Medications Acetaminophen (Tylenol) 650 mg PO Q4H PRN PRN Reason: Pain MILD(1-3)/Fever >100.5/COOK Acetaminophen (Tylenol) 650 mg [place] Q4H PRN PRN Reason: Pain MILD(1-3)/Fever >100.5/COOK Dextrose (D50w (25gm) Syringe) 50 ml IV PRN PRN PRN Reason: Hypoglycemia Fentanyl (Sublimaze) 50 mcg IV Q10MIN PRN PRN Reason: ANALGESIA Last Admin: 08/21/18 12:20 Dose: 50 mcg Documented by: Hydrophilic Ointment (Vaseline Lip Therapy) 1 applic TP Q2HR PRN PRN Reason: Dry Lips Levofloxacin/Dextrose (Levaquin 750mg/150ml) 750 mg in 150 mls @ 100 mls/hr IV Q48HR LUIS Last Admin: 08/21/18 08:14 Dose: 100 mls/hr Documented by: Aztreonam (Azactam/Ns 1 Gm/50 Ml) 1 gm in 50 mls @ 50 mls/hr IV Q8HR LUIS; Protocol Sodium Bicarbonate 150 meq/ (Dextrose) 1,150 mls @ 100 mls/hr IV DIRECT LUIS Last Admin: 08/21/18 12:16 Dose: 100 mls/hr Documented by: Fentanyl Citrate (Fentanyl Drip Premix) 2,000 mcg in 100 mls @ 7.053 mls/hr IV TITR LUIS; Protocol Last Admin: 08/21/18 12:22 Dose: 1 mcg/kg/hr, 7.053 mls/hr Documented by: Insulin Human Lispro (Humalog) 0 unit SUB-Q Q6HR LUIS; Protocol Last Admin: 08/21/18 12:35 Dose: Not Given Documented by: Methylprednisolone Sodium Succinate (Solu-Medrol) 125 mg IV Q6HR LUIS Last Admin: 08/21/18 12:05 Dose: 125 mg Documented by: Multi-Ingred Cream/Lotion/Oil/Oint (Artificial Tears Ophth Oint) 1 applic OU Q4HR PRN PRN Reason: Dry Eye(s) Ondansetron HCl (Zofran) 4 mg IV Q8H PRN PRN Reason: Nausea And Vomiting Sodium Chloride (Sodium Chloride Flush Syringe 10 Ml) 10 ml IV BID LUIS Last Admin: 08/21/18 09:30 Dose: 10 ml Documented by: Sodium Chloride (Sodium Chloride Flush Syringe 10 Ml) 10 ml IV PRN PRN PRN Reason: LINE FLUSH Review of Systems ROS unobtainable: due to endotracheal tube, due to mental status Physical Examination Vital Signs Pulse Ox 84 08/21/18 03:56 General appearance: other (intubated, chronically ill appearing) Cardiac: Positive: Reg Rate and Rhythm, S1/S2 Lungs: Positive: Decreased Breath Sounds, Rhonchi, Oxygen, Ventilated Respirati ons Neuro: Positive: Other (intubated) Skin: Negative: Rash Extremities: Absent: edema Results 08/21/18 04:42 08/21/18 10:43 Cardiac Enzymes 08/21/18 08/21/18 Range/Units 04:42 06:45 AST 212 H (5-40) units/L CK-MB (CK-2) 9.1 H (0.0-4.0) ng/mL Coagulation 08/21/18 Range/Units 04:42 PT 20.1 H (12.2-14.9) Sec. INR 1.76 H (0.87-1.13) APTT 30.8 (24.2-36.6) Sec. Lipids 08/21/18 Range/Units 04:42 Triglycerides 87 (2-149) mg/dL Cholesterol 93 (50-199) mg/dL HDL Cholesterol 41 (40-59) mg/dL Cholesterol/HDL Ratio 2.26 % CBC 08/21/18 Range/Units 04:42 WBC 19.1 H (4.5-11.0) K/mm3 RBC 2.49 L (3.65-5.03) M/mm3 Hgb 7.7 L (11.8-15.2) gm/dl Hct 24.5 L (35.5-45.6) % Plt Count 190 (140-440) K/mm3 Lymph # [place] # [place] Eos # [place] Baso # [place] Comprehensive Metabolic Panel 08/21/18 08/21/18 Range/Units 04:42 10:43 Sodium 137 137 (137-145) mmol/L Potassium 6.0 H 4.9 (3.6-5.0) mmol/L Chloride 101.5 101.2 (98-107) mmol/L Carbon Dioxide 15 L 17 L (22-30) mmol/L BUN 57 H 59 H (9-20) mg/dL Creatinine 4.3 H 4.2 H (0.8-1.5) mg/dL Glucose 111 H 85 (75-100) mg/dL Calcium 8.8 8.7 (8.4-10.2) mg/dL AST 212 H (5-40) units/L ALT 94 H (7-56) units/L Alkaline Phosphatase 102 (35-129) units/L Total Protein 7.5 (6.3-8.2) g/dL Albumin 3.2 L (3.9-5) g/dL - Imaging and Cardiology Echo: pending EKG: report reviewed, image reviewed EKG interpretations - Telemetry EKG Rhythm: Sinus Rhythm - EKG Sinus rhythms and dysrhythmias: sinus rhythm AV and intraventricular conduction: right bundle branch block Assessment and Plan Await echo. Volume optimization per nephrology. Cont supportive management. Further recs to follow per hospital course. The patient has been seen in conjunction with Dr. Jay who agrees with the assessment and plan of care. - Patient Problems (1) Cardiac arrest Current Visit: Yes Status: Acute (2) Acute on chronic respiratory failure Current Visit: Yes Status: Acute (3) Acute renal failure Current Visit: Yes Status: Acute (4) Hyperkalemia Current Visit: Yes Status: Acute (5) Lactic acidosis Current Visit: Yes Status: Acute (6) Pneumonia Current Visit: Yes Status: Acute (7) Sepsis Current Visit: Yes Status: Suspected (8) Anemia Current Visit: Yes Status: Acute (9) GI bleed Current Visit: Yes Status: Suspected (10) Acute heart failure Current Visit: Yes Status: Acute (11) Elevated liver enzymes Current Visit: Yes Status: Acute (12) Elevated troponin Current Visit: Yes Status: Acute
[2018-08-21 14:25] LABS: Creatine Kinase MB 9.2 ng/mL (0.0-4.0)
[2018-08-21] MEDS ORDERED: VERSED IV PRN (14:32)
[2018-08-21] MEDS ORDERED: VERSED IV ONE (14:38)
[2018-08-21] MEDS: AZACTAM/NS 1 GM/50 ML 1 GM/50 ML VIAL IV SCH ×2 (14:50→23:53)
[2018-08-21] MEDS ORDERED: MIDAZOLAM 100 MG in NACL 0.9% 80 ML IV SCH (15:00)
[2018-08-21 15:25] LABS: Bacteria,Urine 1+ /HPF (Negative); Bilirubin,Urine NEG (Negative); Blood,Urine MOD (Negative); Color,Urine Yellow (Yellow); Mucus,Urine FEW /HPF; Urobilinogen,Urine < 2.0 mg/dL (<2.0)
--- NOTE | 2018-08-21 17:17 | Consultation ---
History of Present Illness - Reason for Consult acute renal failure - History of Present Illness 73-year-old gentleman with medical history significant for hypertension, congestive heart failure, diabetes mellitus type 2, chronic kidney disease stage III admitted with complaints of shortness of breath for the past few days is on home oxygen 2 L nasal cannula prior to the arrival in the hospital developed pulseless electrical activity and code was called and was intubated labs show worsening renal function from baseline currently on FiO2 60% of systems is limited as patient is intubated Past History Past Medical History: other (as per HPI) Medications and Allergies Allergies Allergy/AdvReac Type Severity Reaction Status Date / Time Penicillins Allergy Unknown Verified 08/21/18 04:49 -cillins Allergy Unknown Uncoded 08/21/18 04:49 Home Medications Medication Instructions Recorded Confirmed Last Taken Type AtorvaSTATin [Lipitor] 10 mg PO QHS 08/21/18 08/21/18 Unknown History Ferrous Sulfate [Feosol] 325 mg PO QDAY 08/21/18 08/21/18 Unknown History Melatonin [Melatonin 10MG CAP] 10 mg PO DAILY 08/21/18 08/21/18 Unknown History NIFEdipine [Nifedipine ER] 60 mg PO BID 08/21/18 08/21/18 Unknown History Sennosides Tab [Senokot] 1 tab PO HS 08/21/18 08/21/18 Unknown History Tamsulosin [Flomax] 2 cap PO HS 08/21/18 08/21/18 Unknown History Torsemide [Demadex] 20 mg PO DAILY 08/21/18 08/21/18 Unknown History Venlafaxine HCl [Venlafaxin ER] 75 mg PO QDAY 08/21/18 08/21/18 Unknown History buPROPion [Wellbutrin] 100 mg PO DAILY 08/21/18 08/21/18 Unknown History Active Meds: Active Medications Acetaminophen (Tylenol) 650 mg PO Q4H PRN PRN Reason: Pain MILD(1-3)/Fever >100.5/COOK Acetaminophen (Tylenol) 650 mg [place] Q4H PRN PRN Reason: Pain MILD(1-3)/Fever >100.5/COOK Dextrose (D50w (25gm) Syringe) 50 ml IV PRN PRN PRN Reason: Hypoglycemia Fentanyl (Sublimaze) 50 mcg IV Q10MIN PRN PRN Reason: ANALGESIA Last Admin: 08/21/18 12:40 Dose: 50 mcg Documented by: Hydrophilic Ointment (Vaseline Lip Therapy) 1 applic TP Q2HR PRN PRN Reason: Dry Lips Levofloxacin/Dextrose (Levaquin 750mg/150ml) 750 mg in 150 mls @ 100 mls/hr IV Q48HR LUIS Last Admin: 08/21/18 08:14 Dose: 100 mls/hr Documented by: Aztreonam (Azactam/Ns 1 Gm/50 Ml) 1 gm in 50 mls @ 50 mls/hr IV Q8HR LUIS; Protocol Last Admin: 08/21/18 14:50 Dose: 50 mls/hr Documented by: Sodium Bicarbonate 150 meq/ (Dextrose) 1,150 mls @ 100 mls/hr IV DIRECT LUIS Last Admin: 08/21/18 12:16 Dose: 100 mls/hr Documented by: Fentanyl Citrate (Fentanyl Drip Premix) 2,000 mcg in 100 mls @ 7.053 mls/hr IV TITR LUIS; Protocol Last Admin: 08/21/18 15:59 Dose: 4 mcg/kg/hr, 28.213 mls/hr Documented by: Midazolam HCl 100 mg/ Sodium (Chloride) 100 mls @ 2 mls/hr IV TITR LUIS; Protocol Last Admin: 08/21/18 15:00 Dose: 1 mg/hr, 1 mls/hr Documented by: Insulin Human Lispro (Humalog) 0 unit SUB-Q Q6HR LUIS; Protocol Last Admin: 08/21/18 12:35 Dose: Not Given Documented by: Methylprednisolone Sodium Succinate (Solu-Medrol) 125 mg IV Q6HR LUIS Last Admin: 08/21/18 12:05 Dose: 125 mg Documented by: Midazolam HCl (Versed) 2 mg IV Q10MIN PRN PRN Reason: Sedation Last Admin: 08/21/18 14:52 Dose: 2 mg Documented by: Multi-Ingred Cream/Lotion/Oil/Oint (Artificial Tears Ophth Oint) 1 applic OU Q4HR PRN PRN Reason: Dry Eye(s) Ondansetron HCl (Zofran) 4 mg IV Q8H PRN PRN Reason: Nausea And Vomiting Sodium Chloride (Sodium Chloride Flush Syringe 10 Ml) 10 ml IV BID LUIS Last Admin: 08/21/18 09:30 Dose: 10 ml Documented by: Sodium Chloride (Sodium Chloride Flush Syringe 10 Ml) 10 ml IV PRN PRN PRN Reason: LINE FLUSH Review of Systems ROS unobtainable: due to endotracheal tube Exam - Vital Signs Vital signs: Vital Signs Pulse Ox 84 08/21/18 03:56 - General Appearance General appearance: well-developed, well-nourished EENT: ATNC, PERRL, mucous membranes moist Neck: Present: neck supple Respiratory: Ronchi, Decreased Breath Sounds Heart: regular, S1S2 Gastrointestinal: Present: normal, normoactive bowel sounds Integumentary: no rash, warm and dry Neurologic: alert and oriented x3, CN 3-12 intact Psychiatric: mood/affect appropriate Results - Lab Results 08/21/18 04:42 08/21/18 10:43 Most recent lab results Calcium 8.7 mg/dL (8.4-10.2) 08/21/18 10:43 - Image Kidney/bladder ultrasound: other (I reviewed chest x-ray with bilateral patchy opacities. Pulmonary congestion versus airspace disease) Assessment and Plan - Patient Problems (1) Acute on chronic respiratory failure Current Visit: Yes Status: Acute Plan to address problem: Acute on chronic respiratory failure Currently intubated chest x-ray with consent for edema versus infiltrate We'll give Lasix 100 mg IV 1, and was put on antibiotics Remains intubated Wean oxygen as tolerated (2) Acute renal failure Current Visit: Yes Status: Acute Plan to address problem: Acute renal failure Has baseline history of chronic kidney disease stage III Current creatinine is 4.3 Currently has volume overload We'll initiate diuretics 100 mg Lasix 1 Obtain kidney ultrasound Obtain urine studies Avoid nephrotoxic medications (3) Hyperkalemia Current Visit: Yes Status: Acute Plan to address problem: Hyperkalemia moderately severe Recent cardiac arrest Received insulin and dextrose received calcium gluconate Received Kayexalate Also received diuretics Repeat potassium improved (4) Lactic acidosis Current Visit: Yes Status: Acute Plan to address problem: Lactic acidosis in setting of cardiac arrest Obtain echocardiogram to further evaluate cardiac function Trend lactic levels (5) Cardiac arrest Current Visit: Yes Status: Acute Plan to address problem: Cardiac arrest Query secondary to cardiogenic causes Status post intubation Remains intubated orally on broad-spectrum antibiotics Cardiology on board
[2018-08-21] MEDS ORDERED: VASELINE LIP THERAPY TP ONE (17:45)
[2018-08-22] MEDS: SODIUM CHLORIDE FLUSH SYRINGE 10 ML IV SCH ×3 (00:30→21:26)
[2018-08-22] MEDS: SOLU-Medrol IV SCH ×4 (00:30→21:26)
[2018-08-22] MEDS: HumaLOG SUB-Q SCH ×6 (00:35→23:59)
[2018-08-22] MEDS: SODIUM BICARBONATE 150 MEQ in D5W 1,000 ML IV SCH (00:46)
[2018-08-22] MEDS: fentaNYL DRIP Premix 2,000 MCG/100 ML BAG IV SCH ×3 (04:31→21:25)
[2018-08-22] MEDS: AZACTAM/NS 1 GM/50 ML 1 GM/50 ML VIAL IV SCH ×2 (06:12→13:26)
[2018-08-22 06:31] LABS: Hematocrit 21.2 % (35.5-45.6); Mean Corpuscular HGB Conc 33 % (32-34); Mean Corpuscular Hemoglobin 31 pg (28-32); Mean Corpuscular Volume 93 fl (84-94); Platelet Count 129 K/mm3 (140-440); Red Blood Count 2.27 M/mm3 (3.65-5.03); Red Cell Distribution Width 16.8 % (13.2-15.2)
[2018-08-22 06:55] LABS: Calcium 8.6 mg/dL (8.4-10.2)
--- NOTE | 2018-08-22 07:02 | Progress Note ---
Assessment and Plan -s/p Cardiopulmonary arrest with ROSC -Acute on chronic hypoxemic respiratory failure on MVS -Lactic acidosis -Acute metabolic/respiratory acidosis -Acute on chronic renal failure (multifactorial) -Sepsis probably secondary to aspiration PNA -AE-COPD -Acute metabolic-toxic encephalopathy -Morbid obesity -NSTEMI- probably type 2 ischemia -Type 2 DM -h/o Liver disease -h/o Colon CA -Hyperkalemia -Lung protective strategies -Serial CXR and ABG- adjust minute ventilation for better gas exchange -VAP bundle addressed -Blood cultures, urine cultures with urinalysis, tracheal aspirate for culture Follow up cultures -Start SATs and SBTs today -Supplemental oxygen to keep O2 sats 88-90% -Restrictive oxygen therapy -Bronchodilators -Short course of steroids with taper -Accuchecks with glycemic control. Target blood glucose <180mg/dL -Nutrition consult, start enteric nutrition with aspiration precautions...HOB >40 -Agitation management -Titrate sedation to RAAS 0 to -1 -Prevention of delirium, maintenance of sleep-wake cycle -Empiric antibiotic therapy for HAP/aspiration pneumonia -Currently on Aztreonam, Levofloxacin and had received a dose of vancomycin earlier. -Check random vancomycin level--discussed with Pharmacy -Avoid nephrotoxic agents, adjust all antibiotics and medications for CrCL and GFR -VTE and Stress ulcer prophylaxis( therapeutic PPI for now) -Madison catheter in this critically ill patient with acute on chronic renal failure, requiring strict intake and output monitoring. Will assess daily, the need for ongoing Madison catheter -Will plan to discontinue the femoral CVC and place midline -[facility] Discussed with hospitalist service Place on contact isolation until the final ID on blood cultures is received. CONDITION: CRITICAL PROGNOSIS: GUARDED CODE STATUS: FULL CODE The high probability of a clinically significant, sudden or life-threatening deterioration of the [respiratory, cardiovascular, renal , gastrointestinal, neurology] system(s) required my full and direct attention, intervention and personal management. The aggregate critical care time was [45 ] minutes without overlap. Time includes spent on; [x] Data Review and interpretation [x] Patient assessment and monitoring of vital signs [x] Documentation [x] Medication orders and management Subjective Date of service: 08/22/18 Interval history: Patient is seen today for: cardiopulmonary arrest, severe sepsis, acute hypoxemic-hypercapnic respiratory failure on MVS, edgar on ckd Seen and examined at bedside; 24hour events reviewed; nursing and respiratory care staff consulted; no adverse overnight events reported to me; no fevers overnight. Currently on midazolam and fentanyl infusions. Madison in place with clear urine, adequate amounts of urine Remains on full MVS, blood cultures positive for GPC in clusters Vitals, labs, medications, chart and imaging reviewed. Discussed in ICU-IDT rounds. Objective Vital Signs - 12hr 08/21/18 08/21/18 08/21/18 19:15 19:25 19:30 Temperature Pulse Rate 73 73 72 Pulse Rate [ From Monitor] Respiratory 16 12 Rate Blood Pressure 117/48 114/48 116/48 O2 Sat by Pulse 100 100 99 Oximetry 08/21/18 08/21/18 08/21/18 19:45 20:00 20:15 Temperature 98.1 F Pulse Rate 72 72 72 Pulse Rate [ From Monitor] Respiratory 19 18 15 Rate Blood Pressure 116/47 118/48 118/49 O2 Sat by Pulse 97 98 99 Oximetry 08/21/18 08/21/18 08/21/18 20:30 20:45 21:00 Temperature Pulse Rate 72 72 72 Pulse Rate [ From Monitor] Respiratory 13 13 18 Rate Blood Pressure 118/45 121/49 117/48 O2 Sat by Pulse 99 99 99 Oximetry 08/21/18 08/21/18 08/21/18 21:15 21:30 21:45 Temperature Pulse Rate 72 72 74 Pulse Rate [ From Monitor] Respiratory 19 18 12 Rate Blood Pressure 118/52 124/51 126/52 O2 Sat by Pulse 99 99 97 Oximetry 08/21/18 08/21/18 08/21/18 22:00 22:15 22:30 Temperature Pulse Rate 71 72 71 Pulse Rate [ From Monitor] Respiratory 28 H 26 H 28 H Rate Blood Pressure 118/49 116/49 115/49 O2 Sat by Pulse 99 98 99 Oximetry 08/21/18 08/21/18 08/21/18 22:45 23:00 23:15 Temperature Pulse Rate 71 71 71 Pulse Rate [ From Monitor] Respiratory 24 24 26 H Rate Blood Pressure 116/48 114/50 117/47 O2 Sat by Pulse 99 99 99 Oximetry 08/21/18 08/21/18 08/21/18 23:46 23:49 23:50 Temperature Pulse Rate 70 70 70 Pulse Rate [ From Monitor] Respiratory 27 H 28 H Rate Blood Pressure 122/48 122/48 O2 Sat by Pulse 95 98 100 Oximetry 08/22/18 08/22/18 08/22/18 00:00 00:10 00:20 Temperature 96 F L Pulse Rate 70 69 69 Pulse Rate [ 69 From Monitor] Respiratory 28 H 28 H 28 H Rate Blood Pressure 122/48 119/52 119/52 O2 Sat by Pulse 100 92 99 Oximetry 08/22/18 08/22/18 08/22/18 00:30 00:40 00:50 Temperature Pulse Rate 68 68 68 Pulse Rate [ From Monitor] Respiratory 28 H 28 H 28 H Rate Blood Pressure 119/52 119/52 119/52 O2 Sat by Pulse 100 100 100 Oximetry 08/22/18 08/22/18 08/22/18 01:00 01:10 01:20 Temperature Pulse Rate 68 69 69 Pulse Rate [ From Monitor] Respiratory 28 H 28 H 28 H Rate Blood Pressure 119/52 127/56 127/56 O2 Sat by Pulse 100 100 100 Oximetry 08/22/18 08/22/18 08/22/18 01:30 01:40 01:50 Temperature Pulse Rate 69 68 68 Pulse Rate [ From Monitor] Respiratory 28 H 28 H 28 H Rate Blood Pressure 127/56 127/56 127/56 O2 Sat by Pulse 100 100 100 Oximetry 08/22/18 08/22/18 08/22/18 02:00 02:10 02:21 Temperature Pulse Rate 68 68 68 Pulse Rate [ From Monitor] Respiratory 27 H 28 H 28 H Rate Blood Pressure 127/56 127/56 128/57 O2 Sat by Pulse 100 100 100 Oximetry 08/22/18 08/22/18 08/22/18 02:31 02:41 02:51 Temperature Pulse Rate 69 67 68 Pulse Rate [ From Monitor] Respiratory 28 H 28 H 22 Rate Blood Pressure 128/57 128/57 128/57 O2 Sat by Pulse 100 100 100 Oximetry 08/22/18 08/22/18 08/22/18 03:01 03:10 03:21 Temperature Pulse Rate 68 68 68 Pulse Rate [ From Monitor] Respiratory 25 H 28 H 28 H Rate Blood Pressure 129/63 129/63 129/63 O2 Sat by Pulse 100 100 100 Oximetry 08/22/18 08/22/18 08/22/18 03:31 03:41 03:50 Temperature Pulse Rate 69 69 70 Pulse Rate [ From Monitor] Respiratory 28 H 20 28 H Rate Blood Pressure 129/63 129/63 129/63 O2 Sat by Pulse 100 100 100 Oximetry 08/22/18 08/22/18 08/22/18 04:00 04:10 04:13 Temperature Pulse Rate 69 69 68 Pulse Rate [ 69 From Monitor] Respiratory 28 H 27 H Rate Blood Pressure 129/63 129/63 114/47 O2 Sat by Pulse 100 100 100 Oximetry 08/22/18 08/22/18 08/22/18 04:21 04:31 04:41 Temperature Pulse Rate 69 68 68 Pulse Rate [ From Monitor] Respiratory 28 H 28 H 28 H Rate Blood Pressure 114/47 114/47 114/47 O2 Sat by Pulse 100 100 100 Oximetry 08/22/18 08/22/18 08/22/18 04:51 05:01 05:11 Temperature Pulse Rate 69 69 69 Pulse Rate [ From Monitor] Respiratory 28 H 28 H 28 H Rate Blood Pressure 114/47 114/49 114/49 O2 Sat by Pulse 100 100 100 Oximetry 08/22/18 08/22/18 08/22/18 05:21 05:31 05:41 Temperature Pulse Rate 69 71 70 Pulse Rate [ From Monitor] Respiratory 28 H 28 H 28 H Rate Blood Pressure 114/49 114/49 114/49 O2 Sat by Pulse 100 100 100 Oximetry 08/22/18 08/22/18 08/22/18 05:50 06:00 06:10 Temperature Pulse Rate 69 68 68 Pulse Rate [ From Monitor] Respiratory 28 H 28 H 26 H Rate Blood Pressure 114/49 114/49 118/50 O2 Sat by Pulse 100 100 100 Oximetry 08/22/18 08/22/18 08/22/18 06:21 06:31 06:33 Temperature 97.1 F L Pulse Rate 68 67 Pulse Rate [ From Monitor] Respiratory 28 H 28 H Rate Blood Pressure 118/50 118/50 O2 Sat by Pulse 100 100 Oximetry 08/22/18 08/22/18 08/22/18 06:41 06:51 07:00 Temperature Pulse Rate 68 68 69 Pulse Rate [ From Monitor] Respiratory 27 H 25 H 28 H Rate Blood Pressure 118/50 118/50 118/50 O2 Sat by Pulse 100 100 100 Oximetry Constitutional: lethargic, appears uncomfortable, other (morbidly obese, orally intubated, 7.5ETT at 24cm at the lip, no dys-synchrony) Eyes: non-icteric ENT: oropharynx dry, other (orally intubated, ETT 8, 24cm at the lip, OGT in place) Neck: supple, no JVD, other (short neck) Effort: mildly labored Ascultation: Bilateral: diminished breath sounds, rhonchi (coarse BS bilaterally) Cardiovascular: regular rate and rhythm, other (S1,S2, no murmurs, no gallops or rubs) Gastrointestinal: normoactive bowel sounds, soft, non-tender, non-distended, other (Madison catheter in place, minimal urine tea colored) Integumentary: normal Extremities: no cyanosis, no edema, pulses normal, no ischemia or petechiae Neurologic: unable to assess Psychiatric: other (intubated, on fentanyl) CBC and BMP: 08/23/18 04:52 08/23/18 04:52 ABG, PT/INR, D-dimer: ABG POC ABG pH 7.457 (7.35-7.45) H 08/22/18 04:27 POC ABG pO2 117 (80-105) H 08/22/18 04:27 POC ABG HCO3 19.4 (22-26 mml/L) 08/22/18 04:27 POC ABG Total CO2 20 (23-27mmol/L) 08/22/18 04:27 POC ABG O2 Sat 99 08/22/18 04:27 PT/INR, D-dimer PT 20.1 Sec. (12.2-14.9) H 08/21/18 04:42 INR 1.76 (0.87-1.13) H 08/21/18 04:42 Abnormal lab findings: Abnormal Labs 08/21/18 08/21/18 08/21/18 04:42 04:42 04:42 WBC 19.1 H RBC 2.49 L Hgb 7.7 L Hct 24.5 L MCV 98 H RDW 17.7 H Plt Count Seg Neuts % (Manual) 84.0 H Lymphocytes % (Manual) 7.0 L Monocytes % (Manual) 9.0 H Seg Neutrophils # Man 16.0 H Monocytes # (Manual) 1.7 H PT 20.1 H INR 1.76 H POC ABG pH POC ABG pCO2 POC ABG pO2 Potassium Carbon Dioxide BUN Creatinine Glucose POC Glucose Lactic Acid Total Bilirubin AST ALT Total Creatine Kinase CK-MB (CK-2) CK-MB (CK-2) Rel Index Troponin T 0.032 H NT-Pro-B Natriuret Pep Albumin LDL Cholesterol Direct 44 L Urine WBC (Auto) 08/21/18 08/21/18 08/21/18 04:42 04:42 04:42 WBC RBC Hgb Hct MCV RDW Plt Count Seg Neuts % (Manual) Lymphocytes % (Manual) Monocytes % (Manual) Seg Neutrophils # Man Monocytes # (Manual) PT INR POC ABG pH POC ABG pCO2 POC ABG pO2 Potassium 6.0 H Carbon Dioxide 15 L BUN 57 H Creatinine 4.3 H Glucose 111 H POC Glucose Lactic Acid 5.80 H* Total Bilirubin 1.80 H AST 212 H ALT 94 H Total Creatine Kinase CK-MB (CK-2) CK-MB (CK-2) Rel Index Troponin T NT-Pro-B Natriuret Pep 81326 H Albumin 3.2 L LDL Cholesterol Direct Urine WBC (Auto) 08/21/18 08/21/18 08/21/18 05:08 05:58 05:58 WBC RBC Hgb Hct MCV RDW Plt Count Seg Neuts % (Manual) Lymphocytes % (Manual) Monocytes % (Manual) Seg Neutrophils # Man Monocytes # (Manual) PT INR POC ABG pH 7.164 L POC ABG pCO2 46.3 H POC ABG pO2 229 H Potassium Carbon Dioxide BUN Creatinine Glucose POC Glucose Lactic Acid 5.10 H* Total Bilirubin AST ALT Total Creatine Kinase CK-MB (CK-2) CK-MB (CK-2) Rel Index Troponin T 0.035 H NT-Pro-B Natriuret Pep Albumin LDL Cholesterol Direct Urine WBC (Auto) 08/21/18 08/21/18 08/21/18 06:45 06:45 06:53 WBC RBC Hgb Hct MCV RDW Plt Count Seg Neuts % (Manual) Lymphocytes % (Manual) Monocytes % (Manual) Seg Neutrophils # Man Monocytes # (Manual) PT INR POC ABG pH 7.160 L POC ABG pCO2 46.8 H POC ABG pO2 Potassium Carbon Dioxide BUN Creatinine Glucose POC Glucose Lactic Acid 4.70 H* Total Bilirubin AST ALT Total Creatine Kinase 234 H CK-MB (CK-2) 9.1 H CK-MB (CK-2) Rel Index Troponin T 0.032 H NT-Pro-B Natriuret Pep Albumin LDL Cholesterol Direct Urine WBC (Auto) 08/21/18 08/21/18 08/21/18 10:43 10:43 10:45 WBC RBC Hgb Hct MCV RDW Plt Count Seg Neuts % (Manual) Lymphocytes % (Manual) Monocytes % (Manual) Seg Neutrophils # Man Monocytes # (Manual) PT INR POC ABG pH POC ABG pCO2 POC ABG pO2 Potassium Carbon Dioxide 17 L BUN 59 H Creatinine 4.2 H Glucose POC Glucose Lactic Acid 3.70 H* Total Bilirubin AST ALT Total Creatine Kinase 222 H CK-MB (CK-2) 9.2 H CK-MB (CK-2) Rel Index 4.1 H Troponin T 0.044 H D NT-Pro-B Natriuret Pep Albumin LDL Cholesterol Direct Urine WBC (Auto) 08/21/18 08/21/18 08/21/18 11:38 12:33 15:03 WBC RBC Hgb Hct MCV RDW Plt Count Seg Neuts % (Manual) Lymphocytes % (Manual) Monocytes % (Manual) Seg Neutrophils # Man Monocytes # (Manual) PT INR POC ABG pH 7.250 L POC ABG pCO2 POC ABG pO2 121 H Potassium Carbon Dioxide BUN Creatinine Glucose POC Glucose 129 H Lactic Acid Total Bilirubin AST ALT Total Creatine Kinase CK-MB (CK-2) CK-MB (CK-2) Rel Index Troponin T NT-Pro-B Natriuret Pep Albumin LDL Cholesterol Direct Urine WBC (Auto) 13.0 H 08/21/18 08/22/18 08/22/18 15:47 00:01 04:27 WBC RBC Hgb Hct MCV RDW Plt Count Seg Neuts % (Manual) Lymphocytes % (Manual) Monocytes % (Manual) Seg Neutrophils # Man Monocytes # (Manual) PT INR POC ABG pH 7.457 H POC ABG pCO2 POC ABG pO2 117 H Potassium Carbon Dioxide BUN Creatinine Glucose POC Glucose 211 H Lactic Acid 2.70 H* Total Bilirubin AST ALT Total Creatine Kinase CK-MB (CK-2) CK-MB (CK-2) Rel Index Troponin T NT-Pro-B Natriuret Pep Albumin LDL Cholesterol Direct Urine WBC (Auto) 08/22/18 08/22/18 08/22/18 05:46 06:10 06:10 WBC RBC 2.27 L Hgb 7.0 L Hct 21.2 L MCV RDW 16.8 H Plt Count 129 L Seg Neuts % (Manual) Lymphocytes % (Manual) Monocytes % (Manual) Seg Neutrophils # Man Monocytes # (Manual) PT INR POC ABG pH POC ABG pCO2 POC ABG pO2 Potassium Carbon Dioxide 20 L BUN 63 H Creatinine 3.9 H Glucose 205 H POC Glucose 223 H Lactic Acid Total Bilirubin AST ALT Total Creatine Kinase CK-MB (CK-2) CK-MB (CK-2) Rel Index Troponin T NT-Pro-B Natriuret Pep Albumin LDL Cholesterol Direct Urine WBC (Auto) Chest x-ray: image reviewed Allied health notes reviewed: RT
--- NOTE | 2018-08-22 07:12 | XRay Report ---
PROCEDURE: XR CHEST 1V AP TECHNIQUE: Chest radiograph single view. HISTORY: follow up respiratory failure COMPARISONS: 08/21/2018 . FINDINGS: Heart: The heart is mild to moderately enlarged.. Mediastinum/Vessels: The lungs are diffusely congested.. Lungs/Pleural space: There is bilateral interstitial edema with extensive airspace disease in the ri ght lower lobe. Small effusions cannot be excluded.. Bony thorax: No acute osseous abnormality. Life support devices: The tip of the ET tube is just above the joby. The tip of the NG tube is in t he distal esophagus. It needs be advanced least 15 cm.. IMPRESSION: Diffuse pulmonary vascular congestion with interstitial edema. Stable extensive airspace disease in t he right lung base. The tip of the ET tube is just above the joby. The tip of NG tube is in the distal esophagus. The NG tube needs be advanced at least 15 cm with repe at imaging to confirm adequate positioning. This document is electronically signed by Abdi Babcock MD., August 22 2018 07:10:27 AM ET
[2018-08-22 08:32] LABS: Band Neutrophils # (Manual) 0.2 K/mm3; Basophils % (Manual) 0 % (0.0-1.8); Eosinophils % (Manual) 0 % (0.0-4.3); Total Cells Counted 100
[2018-08-22 08:34] LABS: Platelet Estimate Consistent w Auto; RBC Morphology Normal
[2018-08-22] MEDS ORDERED: SODIUM BICARBONATE FEEDTUBE PRN (09:25)
[2018-08-22] MEDS ORDERED: PANCREAZE DR 10,500 UNIT FEEDTUBE PRN (09:25)
[2018-08-22] MEDS ORDERED: SIMPLE SYRUP FEEDTUBE PRN ×2 (09:25)
--- NOTE | 2018-08-22 09:53 | Progress Note ---
Assessment and Plan Assessment and plan: 73 -year-old man with a history of COPD, chronic kidney disease, liver disease, diabetes, GITA, colon cancer, comes to the emergency room with complaints of shortness of 4. Per the he was in the hospital in June for COPD. Probably discharge he had decreased oral intake, last time became more short of breath, hallucinating and then became combative, pulling off his CPAP. She called EMS, they had difficulty intubating the patient in the field, he was bagged, per EMS, when he arrived at the entrance of the hospital he lost his pulse. Patient was intubated in the emergency room, given 2 rounds of epi with ROSC. Status post hyperkalemic cocktail Acute respiratory failure s/p Cardiac arrest Severe Sepsis COPD exacerbation Pneumonia, HCAP-PRESUMED GNR Acute Metabolic Encephalopathy Hyperkalemia Type 2 NM Anemia ?acute blood loss KHRIS secondary to vasomotor nephropathy with possible Probably acute on chronic kidney disease Abnormal cardiac enzymes liver disease diabetes Left facail contusion- No evidence of trauma ?infection GITA colon cancer Morbidly obese Plan Continue supportvie care- Remains intubated, off versed, still on fentanyl drip, hypothermia with bedhugg started Obtain ID consult considering GPC in culture and recent hx of MRSA CELLULITIS check blood cultures, h/h -obtain records from the [facility] -discussed with nursing staff, No family present. Aspiration precautions Cardiology and Critical care input noted Abx per ID recs Per family aptient has had prior admission to [facility] and was supposed to be on BIPAP which has been 4 weeks delayed. Case mangement consutl Echo reviewed, no vegitation noted. EF 40-45%, Discussed with cardiology The high probability of a clinically significant, sudden or life-threatening deterioration of the [respiratory, cardiovascular, renal , gastrointestinal, neurology] system(s) required my full and direct attention, intervention and personal management. The aggregate critical care time was [35 ] minutes without overlap. [x] Data Review and interpretation [x] Patient assessment and monitoring of vital signs [x] Documentation [x] Medication orders and management History Interval history: Patient seen and examined, remains on full ventilatory support. No adverse complaints reported to me overnight Hospitalist Physical - Physical exam Narrative exam: General Apperance: The patient lying in bed, on full mechanical ventilatory support, daughter at bedside. HEENT: Normocephalic, atraumatic. Pupils equally round and reactive to light, unable to do EOM, no sclericterus or JVD or thyromegaly or nodule. , no carotid bruit, mucous membranes moist, unable to examine oral cavity, ET tube in place Heart: S1-S2, regular is rhythm Lungs: Clear to auscultation bilaterally, breathing comfortable Abdomen: Positive bowel sounds, soft, nondistended, no organomegaly Extremities: No edema cyanosis clubbing Skin: no rash, nodule, warm and dry Neuro: Sedated - Constitutional Vitals: Temp Pulse Resp BP Pulse Ox 97.1 F L 69 28 H 118/50 100 08/22/18 06:33 08/22/18 07:49 08/22/18 07:00 08/22/18 07:49 08/22/18 07:49 General appearance: Present: other (intubated, chronically ill appearing) Results - Labs CBC & Chem 7: 08/23/18 04:52 08/23/18 04:52 Labs: Laboratory Last Values WBC 8.2 K/mm3 (4.5-11.0) 08/22/18 06:10 RBC 2.27 M/mm3 (3.65-5.03) L 08/22/18 06:10 Hgb 7.0 gm/dl (11.8-15.2) L 08/22/18 06:10 Hct 21.2 % (35.5-45.6) L 08/22/18 06:10 MCV 93 fl (84-94) 08/22/18 06:10 MCH 31 pg (28-32) 08/22/18 06:10 MCHC 33 % (32-34) 08/22/18 06:10 RDW 16.8 % (13.2-15.2) H 08/22/18 06:10 Plt Count 129 K/mm3 (140-440) L 08/22/18 06:10 Lymph % (Auto) Medical Office Representative 08/21/18 04:42 [place] % (Auto) Medical Office Representative 08/21/18 04:42 Eos % (Auto) Medical Office Representative 08/21/18 04:42 Baso % (Auto) Medical Office Representative 08/21/18 04:42 Lymph # Medical Office Representative 08/21/18 04:42 [place] # Medical Office Representative 08/21/18 04:42 Eos # Medical Office Representative 08/21/18 04:42 Baso # Medical Office Representative 08/21/18 04:42 Add Manual Diff Complete 08/22/18 06:10 Total Counted 100 08/22/18 06:10 Seg Neutrophils % Medical Office Representative 08/22/18 06:10 Seg Neuts % (Manual) 95.0 % (40.0-70.0) H 08/22/18 06:10 3.0 % 08/22/18 06:10 1.0 % (13.4-35.0) L 08/22/18 06:10 Reactive Lymphs % (Man) 0 % 08/22/18 06:10 1.0 % (0.0-7.3) 08/22/18 06:10 0 % (0.0-4.3) 08/22/18 06:10 0 % (0.0-1.8) 08/22/18 06:10 0 % 08/22/18 06:10 0 % 08/22/18 06:10 0 % 08/22/18 06:10 0 % 08/22/18 06:10 Nucleated RBC % 1.0 % (0.0-0.9) H 08/22/18 06:10 Seg Neutrophils # Medical Office Representative 08/21/18 04:42 Seg Neutrophils # Man 7.8 K/mm3 (1.8-7.7) H 08/22/18 06:10 Band Neutrophils # 0.2 K/mm3 08/22/18 06:10 0.1 K/mm3 (1.2-5.4) L 08/22/18 06:10 Abs React Lymphs (Man) 0.0 K/mm3 08/22/18 06:10 0.1 K/mm3 (0.0-0.8) 08/22/18 06:10 0.0 K/mm3 (0.0-0.4) 08/22/18 06:10 0.0 K/mm3 (0.0-0.1) 08/22/18 06:10 0.0 K/mm3 08/22/18 06:10 0.0 K/mm3 08/22/18 06:10 0.0 K/mm3 08/22/18 06:10 Blast Cells # 0.0 K/mm3 08/22/18 06:10 WBC Morphology Not Reportable 08/22/18 06:10 Hypersegmented Neuts Not Reportable 08/22/18 06:10 Hyposegmented Neuts Not Reportable 08/22/18 06:10 Hypogranular Neuts Not Reportable 08/22/18 06:10 Not Reportable 08/22/18 06:10 Not Reportable 08/22/18 06:10 Not Reportable 08/22/18 06:10 Not Reportable 08/22/18 06:10 Not Reportable 08/22/18 06:10 Not Reportable 08/22/18 06:10 Consistent w auto 08/22/18 06:10 Not Reportable 08/22/18 06:10 Plt Clumps, EDTA Not Reportable 08/22/18 06:10 Not Reportable 08/22/18 06:10 Not Reportable 08/22/18 06:10 Not Reportable 08/22/18 06:10 Plt Morphology Comment Not Reportable 08/22/18 06:10 RBC Morphology Normal 08/22/18 06:10 Dimorphic RBCs Not Reportable 08/22/18 06:10 Not Reportable 08/22/18 06:10 Not Reportable 08/22/18 06:10 Not Reportable 08/22/18 06:10 Not Reportable 08/22/18 06:10 Not Reportable 08/22/18 06:10 Not Reportable 08/22/18 06:10 Not Reportable 08/22/18 06:10 Not Reportable 08/22/18 06:10 Not Reportable 08/22/18 06:10 Not Reportable 08/22/18 06:10 Not Reportable 08/22/18 06:10 Not Reportable 08/22/18 06:10 Not Reportable 08/22/18 06:10 Not Reportable 08/22/18 06:10 Not Reportable 08/22/18 06:10 Not Reportable 08/22/18 06:10 Not Reportable 08/22/18 06:10 Not Reportable 08/22/18 06:10 Not Reportable 08/22/18 06:10 Acanthocytes (Spur) Not Reportable 08/22/18 06:10 Rouleaux Not Reportable 08/22/18 06:10 Not Reportable 08/22/18 06:10 Not Reportable 08/22/18 06:10 Not Reportable 08/22/18 06:10 Not Reportable 08/22/18 06:10 Hem Pathologist Commnt No 08/22/18 06:10 PT 20.1 Sec. (12.2-14.9) H 08/21/18 04:42 INR 1.76 (0.87-1.13) H 08/21/18 04:42 APTT 30.8 Sec. (24.2-36.6) 08/21/18 04:42 POC ABG pH 7.457 (7.35-7.45) H 08/22/18 04:27 POC ABG pCO2 39.3 (35-45) 08/21/18 11:38 POC ABG pO2 117 (80-105) H 08/22/18 04:27 POC ABG HCO3 19.4 (22-26 mml/L) 08/22/18 04:27 POC ABG Total CO2 20 (23-27mmol/L) 08/22/18 04:27 POC ABG O2 Sat 99 08/22/18 04:27 POC ABG Base Excess -5 ((-2) - (+3)mmol/L) 08/22/18 04:27 50 % 08/22/18 04:27 Sodium 137 mmol/L (137-145) 08/22/18 06:10 Potassium 4.7 mmol/L (3.6-5.0) 08/22/18 06:10 Chloride 100.2 mmol/L (98-107) 08/22/18 06:10 Carbon Dioxide 20 mmol/L (22-30) L 08/22/18 06:10 22 mmol/L 08/22/18 06:10 BUN 63 mg/dL (9-20) H 08/22/18 06:10 3.9 mg/dL (0.8-1.5) H 08/22/18 06:10 Estimated GFR 15 ml/min 08/22/18 06:10 16 % 08/22/18 06:10 Glucose 205 mg/dL (75-100) H 08/22/18 06:10 POC Glucose 223 (70-105) H 08/22/18 05:46 Lactic Acid 1.30 mmol/L (0.7-2.0) 08/21/18 20:50 Calcium 8.6 mg/dL (8.4-10.2) 08/22/18 06:10 1.80 mg/dL (0.1-1.2) H 08/21/18 04:42 AST 212 units/L (5-40) H 08/21/18 04:42 ALT 94 units/L (7-56) H 08/21/18 04:42 102 units/L (35-129) 08/21/18 04:42 222 units/L (55-170) H 08/21/18 10:45 CK-MB (CK-2) 9.2 ng/mL (0.0-4.0) H 08/21/18 10:45 CK-MB (CK-2) Rel Index 4.1 (0-4) H 08/21/18 10:45 0.044 ng/mL (0.00-0.029) H D 08/21/18 10:45 NT-Pro-B Natriuret Pep 32848 pg/mL (0-900) H 08/21/18 04:42 7.5 g/dL (6.3-8.2) 08/21/18 04:42 3.2 g/dL (3.9-5) L 08/21/18 04:42 0.7 % 08/21/18 04:42 Triglycerides 87 mg/dL (2-149) 08/21/18 04:42 Cholesterol 93 mg/dL (50-199) 08/21/18 04:42 44 mg/dL (50-130) L 08/21/18 04:42 41 mg/dL (40-59) 08/21/18 04:42 2.26 % 08/21/18 04:42 Yellow (Yellow) 08/21/18 15:03 Slightly-cloudy (Clear) 08/21/18 15:03 5.0 (5.0-7.0) 08/21/18 15:03 Ur Specific [place] 1.015 (1.003-1.030) 08/21/18 15:03 30 mg/dl mg/dL (Negative) 08/21/18 15:03 Neg mg/dL (Negative) 08/21/18 15:03 Neg mg/dL (Negative) 08/21/18 15:03 Mod (Negative) 08/21/18 15:03 Neg (Negative) 08/21/18 15:03 Neg (Negative) 08/21/18 15:03 < 2.0 mg/dL (<2.0) 08/21/18 15:03 Ur Leukocyte Esterase Tr (Negative) 08/21/18 15:03 13.0 /HPF (0.0-6.0) H 08/21/18 15:03 15.0 /HPF (0.0-6.0) 08/21/18 15:03 U Epithel Cells (Auto) 1.0 /HPF (0-13.0) 08/21/18 15:03 1+ /HPF (Negative) 08/21/18 15:03 Few /HPF 08/21/18 15:03 Active Medications - Current Medications Current Medications: Generic Name Dose Route Start Last Admin Trade Name Freq PRN Reason Stop Dose Admin Acetaminophen 650 mg 08/21/18 06:31 Tylenol PO Q4H PRN Pain MILD(1-3)/Fever >100.5/COOK Acetaminophen 650 mg 08/21/18 06:31 Tylenol [place] Q4H PRN Pain MILD(1-3)/Fever >100.5/COOK Lipase/Protease/Amylase 1 each 08/22/18 09:[address] 10,500 Unit FEEDTUBE PRN PRN For Clogged Feeding Tube Dextrose 50 ml 08/21/18 06:48 D50w (25gm) Syringe IV PRN PRN Hypoglycemia Famotidine 20 mg 08/22/18 10:00 Pepcid IV DAILY [facility] Fentanyl 50 mcg 08/21/18 11:34 08/21/18 18:50 Sublimaze IV 50 mcg Q10MIN PRN Administration ANALGESIA Furosemide 80 mg 08/22/18 10:00 Lasix IV 0900,2100 LUIS Heparin Sodium (Porcine) 5,000 unit 08/22/18 10:00 Heparin SUB-Q Q12HR [facility]IS Hydrophilic Ointment 1 applic 08/21/18 11:34 Vaseline Lip Therapy TP Q2HR PRN Dry Lips Levofloxacin/Dextrose 750 mg in 150 mls @ 100 mls/hr 08/21/18 06:45 08/21/18 08:14 Levaquin 750mg/150ml IV 100 mls/hr Q48HR [facility]IS Administration Aztreonam 1 gm in 50 mls @ 50 mls/hr 08/21/18 14:00 08/22/18 06:12 Azactam/Ns 1 Gm/50 Ml IV 50 mls/hr Q8HR [facility]IS Administration Protocol Sodium Bicarbonate 150 meq/ 1,150 mls @ 50 mls/hr 08/21/18 10:00 08/22/18 07:55 Dextrose IV 50 mls/hr DIRECT [facility] Infusion Fentanyl Citrate 2,000 mcg in 100 mls @ 7.053 mls/hr 08/21/18 12:00 08/22/18 07:56 Fentanyl Drip Premix IV 1 mcg/kg/hr TITR [facility]IS 7.053 mls/hr Titration Protocol 1 MCG/KG/HR Midazolam HCl 100 mg/ Sodium 100 mls @ 2 mls/hr 08/21/18 15:00 08/22/18 07:55 Chloride IV 1 mg/hr TITR LUIS 1 mls/hr Titration Protocol 2 MG/HR Insulin Human Lispro 0 unit 08/21/18 12:00 08/22/18 06:07 Humalog SUB-Q 4 unit Q6HR [facility] Administration Protocol Methylprednisolone Sodium Succinate 40 mg 08/22/18 14:00 Solu-Medrol IV 08/23/18 06:01 Q8HR [facility] Methylprednisolone Sodium Succinate 20 mg 08/23/18 14:00 Solu-Medrol IV 08/24/18 06:01 Q8HR [facility] Methylprednisolone Sodium Succinate 20 mg 08/24/18 22:00 Solu-Medrol IV 08/25/18 10:01 Q12HR [facility] Methylprednisolone Sodium Succinate 20 mg 08/26/18 10:00 Solu-Medrol IV 08/29/18 10:01 Q24HR [facility] Midazolam HCl 2 mg 08/21/18 14:32 08/21/18 14:52 Versed IV 2 mg Q10MIN PRN Administration Sedation Multi-Ingred Cream/Lotion/Oil/Oint 1 applic 08/21/18 11:34 Artificial Tears Ophth Oint OU Q4HR PRN Dry Eye(s) Ondansetron HCl 4 mg 08/21/18 06:31 Zofran IV Q8H PRN Nausea And Vomiting Simple Syrup 15 ml 08/22/18 09:25 Simple Syrup FEEDTUBE PRN PRN Hypoglycemia Simple Syrup 30 ml 08/22/18 09:25 Simple Syrup FEEDTUBE PRN PRN Hypoglycemia Sodium Bicarbonate 325 mg 08/22/18 09:25 Sodium Bicarbonate FEEDTUBE PRN PRN For Clogged Feeding Tube Sodium Chloride 10 ml 08/21/18 10:00 08/22/18 00:30 Sodium Chloride Flush Syringe 10 Ml IV 10 ml BID [facility] Administration Sodium Chloride 10 ml 08/21/18 06:31 Sodium Chloride Flush Syringe 10 Ml IV PRN PRN LINE FLUSH Nutrition/Malnutrition Assess - Dietary Evaluation Nutrition/Malnutrition Findings: Nutrition Notes Start: 08/21/18 16:58 Freq: Status: Active Protocol: Document 08/22/18 09:17 LP (Rec: 08/22/18 09:23 LP [id number]) Nutrition Notes Need for Assessment generated from: MD Order Initial or Follow up Reassessment Current Diagnosis Acute Kidney Injury,CKD(stage I-IV),COPD,Diabetes,Sepsis Other Pertinent Diagnosis Hx colon CA, Pneu Current Diet NPO Labs/Tests Reviewed Pertinent Medications Reviewed Height 5 ft 6 in Weight 144.6 kg [place] Body Weight (kg) 64.54 BMI 51.4 Subjective/Other Information Consult for TF. Pt continues on vent. Burn Absent Trauma Absent #1 Nutrition Diagnosis Inadequate oral intake Diagnosis Progress(for reassessment Continues documentation) Is patient on ventilator? Yes Is Patient Ambulatory and/or Out of Bed No REE-([facility]-confined to bed) 2571.672 Kcal/Kg value to use for calculation 14 Approximate Energy Requirements Using 2023 kcal/Kg Calculation Used for Recommendations Kcal/kg Additional Notes Protein needs are 161g (2.5g/ kg IBW) Fluid Needs: 1 ml/kcal Nutrition Intervention Change Diet Order: TF Nutrition Support: Nepro at 45ml/hr 150ml q4h flush Kcal 1,944 Protein (gm) 87 Fluid (mL) 785 Goal #1 Meet at least 80% of kcal and protein needs Anticipated Discharge Needs: Unable to determine at this time Follow-Up By: 08/24/18 Additional Comments Follow for TF start/tolerance
[2018-08-22] MEDS: LASIX IV SCH ×2 (10:01→20:38)
[2018-08-22] MEDS: HEPARIN SUB-Q SCH ×2 (10:02→21:27)
[2018-08-22] MEDS: PEPCID IV SCH (10:02)
--- NOTE | 2018-08-22 12:27 | Progress Note ---
Assessment and Plan - Patient Problems (1) Acute on chronic respiratory failure Current Visit: Yes Status: Acute Plan to address problem: Acute on chronic respiratory failure Currently intubated chest x-ray with consent for edema versus infiltrate We'll give Lasix 80 mg IV BID Remains intubated Wean oxygen as tolerated (2) Acute renal failure Current Visit: Yes Status: Acute Plan to address problem: Acute renal failure Has baseline history of chronic kidney disease stage III Admission creatinine is 4.3, current creatinine 3.9 Currently has volume overload Continue diuretics Lasix 80 mg IV twice a day Obtain kidney ultrasound Obtain urine studies Discontinue bicarbonate drip this will only worsen volume overload Avoid nephrotoxic medications (3) Hyperkalemia Current Visit: Yes Status: Acute Plan to address problem: Hyperkalemia moderately severe improved Recent cardiac arrest Received insulin and dextrose received calcium gluconate Received Kayexalate Also received diuretics Repeat potassium improved (4) Lactic acidosis Current Visit: Yes Status: Acute Plan to address problem: Lactic acidosis in setting of cardiac arrest I reviewed echocardiogram with global hypokinesis and reduced ejection fraction about 40% consistent with CHF Trend lactic levels (5) Cardiac arrest Current Visit: Yes Status: Acute Plan to address problem: Cardiac arrest Query secondary to cardiogenic causes Status post intubation Remains intubated orally on broad-spectrum antibiotics Cardiology on board Subjective Interval history: 73-year-old gentleman with medical history significant for hypertension, congestive heart failure, diabetes mellitus type 2, chronic kidney disease stage III admitted with complaints of shortness of breath for the past few days is on home oxygen 2 L nasal cannula prior to the arrival in the hospital developed pulseless electrical activity and code was called. Patient was seen today remains intubated FiO2 40% still has significant edema Chest x-ray with pulmonary edema Received Lasix yesterday with improvement in urine output patient's remains sedated review of systems unobtainable Objective - Vital Signs Vital signs: Vital Signs - 12hr 08/22/18 08/22/18 08/22/18 00:30 00:40 00:50 Temperature Pulse Rate 68 68 68 Pulse Rate [ From Monitor] Respiratory 28 H 28 H 28 H Rate Blood Pressure 119/52 119/52 119/52 O2 Sat by Pulse 100 100 100 Oximetry 08/22/18 08/22/18 08/22/18 01:00 01:10 01:20 Temperature Pulse Rate 68 69 69 Pulse Rate [ From Monitor] Respiratory 28 H 28 H 28 H Rate Blood Pressure 119/52 127/56 127/56 O2 Sat by Pulse 100 100 100 Oximetry 08/22/18 08/22/18 08/22/18 01:30 01:40 01:50 Temperature Pulse Rate 69 68 68 Pulse Rate [ From Monitor] Respiratory 28 H 28 H 28 H Rate Blood Pressure 127/56 127/56 127/56 O2 Sat by Pulse 100 100 100 Oximetry 08/22/18 08/22/18 08/22/18 02:00 02:10 02:21 Temperature Pulse Rate 68 68 68 Pulse Rate [ From Monitor] Respiratory 27 H 28 H 28 H Rate Blood Pressure 127/56 127/56 128/57 O2 Sat by Pulse 100 100 100 Oximetry 08/22/18 08/22/18 08/22/18 02:31 02:41 02:51 Temperature Pulse Rate 69 67 68 Pulse Rate [ From Monitor] Respiratory 28 H 28 H 22 Rate Blood Pressure 128/57 128/57 128/57 O2 Sat by Pulse 100 100 100 Oximetry 08/22/18 08/22/18 08/22/18 03:01 03:10 03:21 Temperature Pulse Rate 68 68 68 Pulse Rate [ From Monitor] Respiratory 25 H 28 H 28 H Rate Blood Pressure 129/63 129/63 129/63 O2 Sat by Pulse 100 100 100 Oximetry 08/22/18 08/22/18 08/22/18 03:31 03:41 03:50 Temperature Pulse Rate 69 69 70 Pulse Rate [ From Monitor] Respiratory 28 H 20 28 H Rate Blood Pressure 129/63 129/63 129/63 O2 Sat by Pulse 100 100 100 Oximetry 08/22/18 08/22/18 08/22/18 04:00 04:10 04:13 Temperature Pulse Rate 69 69 68 Pulse Rate [ 69 From Monitor] Respiratory 28 H 27 H Rate Blood Pressure 129/63 129/63 114/47 O2 Sat by Pulse 100 100 100 Oximetry 08/22/18 08/22/18 08/22/18 04:21 04:31 04:41 Temperature Pulse Rate 69 68 68 Pulse Rate [ From Monitor] Respiratory 28 H 28 H 28 H Rate Blood Pressure 114/47 114/47 114/47 O2 Sat by Pulse 100 100 100 Oximetry 08/22/18 08/22/18 08/22/18 04:51 05:01 05:11 Temperature Pulse Rate 69 69 69 Pulse Rate [ From Monitor] Respiratory 28 H 28 H 28 H Rate Blood Pressure 114/47 114/49 114/49 O2 Sat by Pulse 100 100 100 Oximetry 08/22/18 08/22/18 08/22/18 05:21 05:31 05:41 Temperature Pulse Rate 69 71 70 Pulse Rate [ From Monitor] Respiratory 28 H 28 H 28 H Rate Blood Pressure 114/49 114/49 114/49 O2 Sat by Pulse 100 100 100 Oximetry 08/22/18 08/22/18 08/22/18 05:50 06:00 06:10 Temperature Pulse Rate 69 68 68 Pulse Rate [ From Monitor] Respiratory 28 H 28 H 26 H Rate Blood Pressure 114/49 114/49 118/50 O2 Sat by Pulse 100 100 100 Oximetry 08/22/18 08/22/18 08/22/18 06:21 06:31 06:33 Temperature 97.1 F L Pulse Rate 68 67 Pulse Rate [ From Monitor] Respiratory 28 H 28 H Rate Blood Pressure 118/50 118/50 O2 Sat by Pulse 100 100 Oximetry 08/22/18 08/22/18 08/22/18 06:41 06:51 07:00 Temperature Pulse Rate 68 68 69 Pulse Rate [ From Monitor] Respiratory 27 H 25 H 28 H Rate Blood Pressure 118/50 118/50 118/50 O2 Sat by Pulse 100 100 100 Oximetry 08/22/18 07:49 Temperature Pulse Rate 69 Pulse Rate [ From Monitor] Respiratory Rate Blood Pressure 118/50 O2 Sat by Pulse 100 Oximetry - General Appearance General appearance: well-developed, well-nourished EENT: ATNC, PERRL, mucous membranes moist Neck: no JVD Respiratory: Present: Clear to Ascultation, Decreased Breath Sounds Cardiology: regular, S1S2 Gastrointestinal: normal, normoactive bowel sounds Integumentary: no rash, warm and dry Neurologic: no focal deficit, CN 3-12 intact Psychiatric: mood/affect appropriate - Lab 08/22/18 06:10 08/22/18 06:10 Most recent lab results Calcium 8.6 mg/dL (8.4-10.2) 08/22/18 06:10 - Imaging Chest x-ray: image reviewed (I reviewed chest x-ray with bilateral diffuse opacities consistent with pulmonary edema) Medications & Allergies - Medications Allergies/Adverse Reactions: Allergies Penicillins Allergy (Verified 08/21/18 04:49) Unknown -cillins Allergy (Uncoded 08/21/18 04:49) Unknown Home Medications: Home Medications Medication Instructions Recorded Confirmed Last Taken Type AtorvaSTATin [Lipitor] 10 mg PO QHS 08/21/18 08/21/18 Unknown History Ferrous Sulfate [Feosol] 325 mg PO QDAY 08/21/18 08/21/18 Unknown History Melatonin [Melatonin 10MG CAP] 10 mg PO DAILY 08/21/18 08/21/18 Unknown History NIFEdipine [Nifedipine ER] 60 mg PO BID 08/21/18 08/21/18 Unknown History Sennosides Tab [Senokot] 1 tab PO HS 08/21/18 08/21/18 Unknown History Tamsulosin [Flomax] 2 cap PO HS 08/21/18 08/21/18 Unknown History Torsemide [Demadex] 20 mg PO DAILY 08/21/18 08/21/18 Unknown History Venlafaxine HCl [Venlafaxin ER] 75 mg PO QDAY 08/21/18 08/21/18 Unknown History buPROPion [Wellbutrin] 100 mg PO DAILY 08/21/18 08/21/18 Unknown History Active Medications: Generic Name Dose Route Start Last Admin Trade Name Freq PRN Reason Stop Dose Admin Acetaminophen 650 mg 08/21/18 06:31 Tylenol PO Q4H PRN Pain MILD(1-3)/Fever >100.5/COOK Acetaminophen 650 mg 08/21/18 06:31 Tylenol [place] Q4H PRN Pain MILD(1-3)/Fever >100.5/COOK Lipase/Protease/Amylase 1 each 08/22/18 09:25 [place]cre[place] 10,500 Unit FEEDTUBE PRN PRN For Clogged Feeding Tube Dextrose 50 ml 08/21/18 06:48 D50w (25gm) Syringe IV PRN PRN Hypoglycemia Famotidine 20 mg 08/22/18 10:00 08/22/18 10:02 Pepcid IV 20 mg DAILY [facility] Administration Fentanyl 50 mcg 08/21/18 11:34 08/21/18 18:50 Sublimaze IV 50 mcg Q10MIN PRN Administration ANALGESIA Furosemide 80 mg 08/22/18 10:00 08/22/18 10:01 Lasix IV 80 mg 0900,2100 LUIS Administration Heparin Sodium (Porcine) 5,000 unit 08/22/18 10:00 08/22/18 10:02 Heparin SUB-Q 5,000 unit Q12HR [facility] Administration Hydrophilic Ointment 1 applic 08/21/18 11:34 Vaseline Lip Therapy TP Q2HR PRN Dry Lips Levofloxacin/Dextrose 750 mg in 150 mls @ 100 mls/hr 08/21/18 06:45 08/21/18 08:14 Levaquin 750mg/150ml IV 100 mls/hr Q48HR [facility] Administration Aztreonam 1 gm in 50 mls @ 50 mls/hr 08/21/18 14:00 08/22/18 06:12 Azactam/Ns 1 Gm/50 Ml IV 50 mls/hr Q8HR [facility] Administration Protocol Sodium Bicarbonate 150 meq/ 1,150 mls @ 50 mls/hr 08/21/18 10:00 08/22/18 07:55 Dextrose IV 50 mls/hr DIRECT [facility] Infusion Fentanyl Citrate 2,000 mcg in 100 mls @ 7.053 mls/hr 08/21/18 12:00 08/22/18 12:09 Fentanyl Drip Premix IV 2 mcg/kg/hr TITR LUIS 14.107 mls/hr Titration Protocol 1 MCG/KG/HR Midazolam HCl 100 mg/ Sodium 100 mls @ 2 mls/hr 08/21/18 15:00 08/22/18 12:09 Chloride IV 1 mg/hr TITR LUIS 1 mls/hr Titration Protocol 2 MG/HR Insulin Human Lispro 0 unit 08/21/18 12:00 08/22/18 06:07 Humalog SUB-Q 4 unit Q6HR [facility] Administration Protocol Methylprednisolone Sodium Succinate 40 mg 08/22/18 14:00 Solu-Medrol IV 08/23/18 06:01 Q8HR [facility] Methylprednisolone Sodium Succinate 20 mg 08/23/18 14:00 Solu-Medrol IV 08/24/18 06:01 Q8HR [facility] Methylprednisolone Sodium Succinate 20 mg 08/24/18 22:00 Solu-Medrol IV 08/25/18 10:01 Q12HR [facility] Methylprednisolone Sodium Succinate 20 mg 08/26/18 10:00 Solu-Medrol IV 08/29/18 10:01 Q24HR [facility] Midazolam HCl 2 mg 08/21/18 14:32 08/21/18 14:52 Versed IV 2 mg Q10MIN PRN Administration Sedation Multi-Ingred Cream/Lotion/Oil/Oint 1 applic 08/21/18 11:34 Artificial Tears Ophth Oint OU Q4HR PRN Dry Eye(s) Ondansetron HCl 4 mg 08/21/18 06:31 Zofran IV Q8H PRN Nausea And Vomiting Simple Syrup 15 ml 08/22/18 09:25 Simple Syrup FEEDTUBE PRN PRN Hypoglycemia Simple Syrup 30 ml 08/22/18 09:25 Simple Syrup FEEDTUBE PRN PRN Hypoglycemia Sodium Bicarbonate 325 mg 08/22/18 09:25 Sodium Bicarbonate FEEDTUBE PRN PRN For Clogged Feeding Tube Sodium Chloride 10 ml 08/21/18 10:00 08/22/18 10:02 Sodium Chloride Flush Syringe 10 Ml IV 10 ml BID LUIS Administration Sodium Chloride 10 ml 08/21/18 06:31 Sodium Chloride Flush Syringe 10 Ml IV PRN PRN LINE FLUSH
--- NOTE | 2018-08-22 12:50 | Progress Note ---
Assessment and Plan Echo reviewed - EF 40-45%, LV mod dilated, pseudonormalization, RV severely dilated, RA mod dilated, mod TR, RVSP 47mmHg. Cont supportive management. The patient has been seen in conjunction with Dr. Jay who agrees with the assessment and plan of care. - Patient Problems (1) Cardiac arrest Current Visit: Yes Status: Acute (2) Acute HFrEF (heart failure with reduced ejection fraction) Current Visit: Yes Status: Acute (3) Cardiomyopathy Current Visit: Yes Status: Acute (4) Acute on chronic respiratory failure Current Visit: Yes Status: Acute (5) Acute renal failure Current Visit: Yes Status: Acute (6) Hyperkalemia Current Visit: Yes Status: Acute (7) Lactic acidosis Current Visit: Yes Status: Acute (8) Pneumonia Current Visit: Yes Status: Acute (9) Sepsis Current Visit: Yes Status: Suspected (10) Anemia Current Visit: Yes Status: Acute (11) GI bleed Current Visit: Yes Status: Suspected (12) Elevated liver enzymes Current Visit: Yes Status: Acute (13) Elevated troponin Current Visit: Yes Status: Acute (14) Altered mental status Current Visit: Yes Status: Acute Subjective Date of service: 08/22/18 Principal diagnosis: cardiac arrest Interval history: pt remains intubated, sedated. no family at bedside. Objective Last Vital Signs Temp 97.1 F L 08/22/18 06:33 Pulse 69 08/22/18 07:49 Resp 28 H 08/22/18 07:00 BP 118/50 08/22/18 07:49 Pulse Ox 100 08/22/18 07:49 - Physical Examination General: Other (intubated, sedated) Neck: Positive: neck supple Cardiac: Positive: Reg Rate and Rhythm, S1/S2 Lungs: Positive: Oxygen, Ventilated Respirations Neuro: Positive: Other (intubated, sedated) Skin: Negative: Rash Extremities: Absent: edema - Labs and Meds Cardiac Enzymes 08/21/18 Range/Units 10:45 CK-MB (CK-2) 9.2 H (0.0-4.0) ng/mL CBC 08/22/18 Range/Units 06:10 WBC 8.2 (4.5-11.0) K/mm3 RBC 2.27 L (3.65-5.03) M/mm3 Hgb 7.0 L (11.8-15.2) gm/dl Hct 21.2 L (35.5-45.6) % Plt Count 129 L (140-440) K/mm3 Comprehensive Metabolic Panel 08/22/18 Range/Units 06:10 Sodium 137 (137-145) mmol/L Potassium 4.7 (3.6-5.0) mmol/L Chloride 100.2 (98-107) mmol/L Carbon Dioxide 20 L (22-30) mmol/L BUN 63 H (9-20) mg/dL Creatinine 3.9 H (0.8-1.5) mg/dL Glucose 205 H (75-100) mg/dL Calcium 8.6 (8.4-10.2) mg/dL - Imaging and Cardiology EKG: report reviewed, image reviewed Echo: report reviewed - Telemetry EKG Rhythm: Sinus Rhythm - EKG Sinus rhythms and dysrhythmias: sinus rhythm AV and intraventricular conduction: right bundle branch block
--- NOTE | 2018-08-22 14:23 | Consultation ---
History of Present Illness - Reason for Consult Consult date: 08/22/18 positive sputum and h/o MRSA Requesting physician: STEVEN GREENFIELD - History of Present Illness 73 y/o male with a history of chronic kidney disease, liver disease, COPD, diabetes, GITA, colon cancer admitted on 08/21/2018 due to 4-day history of progressive shortness of breath and right neck/face edema and tenderness associated with poor po intake. Patient is unable to provide a history as he is currently intubated and sedated. Per , at home he became hallucinating and combative, pulling off his CPAP and she called EMS. Of note, reports he was recently admitted to the [facility] due to cellulitis of left leg and found to have MRSA. She is not clear from what specimen. In the ED, temp 97.6, HR 67, R 43, BP 84, BP 129/64. WBC 19. Hg 7.7. Plat 190. Creat 4.3. Lactate 5.8. AST 212. AST 94. UA with 13 wbc, trace LE. Blood cultures 08/21/2018 GPC in clusters 1 of 4. Urine culture 08/21/2018 no growth. CXR bilateral infiltrate with airspace disease on RLL. Patient became unresponsive en route. EMS unable to intubate. Pt bagged with 100%. Patient found in asystole receiving s/p CRP. Blood cultures 08/21/2018 GPC in clusters 1 of 4. Sputum cultures 08/21/2018 Staph aureus. Review of Systems: unable to obtain Past History Past Medical History: other (as per HPI) Medications and Allergies Allergies Allergy/AdvReac Type Severity Reaction Status Date / Time Penicillins Allergy Unknown Verified 08/21/18 04:49 -cillins Allergy Unknown Uncoded 08/21/18 04:49 Home Medications Medication Instructions Recorded Confirmed Last Taken Type AtorvaSTATin [Lipitor] 10 mg PO QHS 08/21/18 08/21/18 Unknown History Ferrous Sulfate [Feosol] 325 mg PO QDAY 08/21/18 08/21/18 Unknown History Melatonin [Melatonin 10MG CAP] 10 mg PO DAILY 08/21/18 08/21/18 Unknown History NIFEdipine [Nifedipine ER] 60 mg PO BID 08/21/18 08/21/18 Unknown History Sennosides Tab [Senokot] 1 tab PO HS 08/21/18 08/21/18 Unknown History Tamsulosin [Flomax] 2 cap PO HS 08/21/18 08/21/18 Unknown History Torsemide [Demadex] 20 mg PO DAILY 08/21/18 08/21/18 Unknown History Venlafaxine HCl [Venlafaxin ER] 75 mg PO QDAY 08/21/18 08/21/18 Unknown History buPROPion [Wellbutrin] 100 mg PO DAILY 08/21/18 08/21/18 Unknown History Active Meds: Active Medications Acetaminophen (Tylenol) 650 mg PO Q4H PRN PRN Reason: Pain MILD(1-3)/Fever >100.5/COOK Acetaminophen (Tylenol) 650 mg MI Q4H PRN PRN Reason: Pain MILD(1-3)/Fever >100.5/COOK Lipase/Protease/Amylase (Pancreaze Dr 10,500 Unit) 1 each FEEDTUBE PRN PRN PRN Reason: For Clogged Feeding Tube Dextrose (D50w (25gm) Syringe) 50 ml IV PRN PRN PRN Reason: Hypoglycemia Famotidine (Pepcid) 20 mg IV DAILY [facility] Last Admin: 08/22/18 10:02 Dose: 20 mg Documented by: Fentanyl (Sublimaze) 50 mcg IV Q10MIN PRN PRN Reason: ANALGESIA Last Admin: 08/21/18 18:50 Dose: 50 mcg Documented by: Furosemide (Lasix) 80 mg IV 0900,2100 [facility] Last Admin: 08/22/18 10:01 Dose: 80 mg Documented by: Heparin Sodium (Porcine) (Heparin) 5,000 unit SUB-Q Q12HR [facility] Last Admin: 08/22/18 10:02 Dose: 5,000 unit Documented by: Hydrophilic Ointment (Vaseline Lip Therapy) 1 applic TP Q2HR PRN PRN Reason: Dry Lips Levofloxacin/Dextrose (Levaquin 750mg/150ml) 750 mg in 150 mls @ 100 mls/hr IV Q48HR [facility] Last Admin: 08/21/18 08:14 Dose: 100 mls/hr Documented by: Aztreonam (Azactam/Ns 1 Gm/50 Ml) 1 gm in 50 mls @ 50 mls/hr IV Q8HR [facility]; Protocol Last Admin: 08/22/18 13:26 Dose: 50 mls/hr Documented by: Fentanyl Citrate (Fentanyl Drip Premix) 2,000 mcg in 100 mls @ 7.053 mls/hr IV TITR LUIS; Protocol Last Titration: 08/22/18 12:09 Dose: 2 mcg/kg/hr, 14.107 mls/hr Documented by: Midazolam HCl 100 mg/ Sodium (Chloride) 100 mls @ 2 mls/hr IV TITR [facility]; Protocol Last Titration: 08/22/18 12:09 Dose: 1 mg/hr, 1 mls/hr Documented by: Insulin Human Lispro (Humalog) 0 unit SUB-Q Q6HR [facility]IS; Protocol Last Admin: 08/22/18 12:53 Dose: 3 unit Documented by: Methylprednisolone Sodium Succinate (Solu-Medrol) 40 mg IV Q8HR [facility] Stop: 08/23/18 06:01 Last Admin: 08/22/18 13:26 Dose: 40 mg Documented by: Methylprednisolone Sodium Succinate (Solu-Medrol) 20 mg IV Q8HR [facility] Stop: 08/24/18 06:01 Methylprednisolone Sodium Succinate (Solu-Medrol) 20 mg IV Q12HR [facility] Stop: 08/25/18 10:01 Methylprednisolone Sodium Succinate (Solu-Medrol) 20 mg IV Q24HR [facility] Stop: 08/29/18 10:01 Midazolam HCl (Versed) 2 mg IV Q10MIN PRN PRN Reason: Sedation Last Admin: 08/21/18 14:52 Dose: 2 mg Documented by: Multi-Ingred Cream/Lotion/Oil/Oint (Artificial Tears Ophth Oint) 1 applic OU Q4HR PRN PRN Reason: Dry Eye(s) Ondansetron HCl (Zofran) 4 mg IV Q8H PRN PRN Reason: Nausea And Vomiting Simple Syrup (Simple Syrup) 15 ml FEEDTUBE PRN PRN PRN Reason: Hypoglycemia Simple Syrup (Simple Syrup) 30 ml FEEDTUBE PRN PRN PRN Reason: Hypoglycemia Sodium Bicarbonate (Sodium Bicarbonate) 325 mg FEEDTUBE PRN PRN PRN Reason: For Clogged Feeding Tube Sodium Chloride (Sodium Chloride Flush Syringe 10 Ml) 10 ml IV BID [facility] Last Admin: 08/22/18 10:02 Dose: 10 ml Documented by: Sodium Chloride (Sodium Chloride Flush Syringe 10 Ml) 10 ml IV PRN PRN PRN Reason: LINE FLUSH Physical Examination - Physical Exam Narrative exam: General appearance: sedated intubated in NAD Eyes: anicteric sclerae, moist conjunctivae; no lid-lag; PERRLA HENT: Atraumatic; oropharynx +ETT Neck: left neck mandibular area edema and tenderness spread to left temporal area. Lungs: norris rhonchi CV: RRR Abdomen: Soft, non-tender; no masses or hepatosplenomegaly Extremities: no edema Skin: norris chronic calf discoloration Psych: sedated. Neuro: sedated - Constitutional Vitals: Vital Signs Temp Pulse Resp BP Pulse Ox 98.6 F 72 28 H 126/55 100 08/22/18 12:00 08/22/18 13:51 08/22/18 13:51 08/22/18 13:51 08/22/18 13:51 Temperature -Last 24 Hours Temperature 98.6 F Temperature 95.6 F Temperature 97.1 F Temperature 96 F Temperature 98.1 F Temperature 97.6 F Results - Labs CBC & Chem 7: 08/22/18 06:10 08/22/18 06:10 Labs: Abnormal lab results 08/21/18 08/21/18 08/21/18 Range/Units 10:45 12:33 15:03 RBC (3.65-5.03) M/mm3 Hgb (11.8-15.2) gm/dl Hct (35.5-45.6) % RDW (13.2-15.2) % Plt Count (140-440) K/mm3 Seg Neuts % (Manual) (40.0-70.0) % Lymphocytes % (Manual) (13.4-35.0) % Nucleated RBC % (0.0-0.9) % Seg Neutrophils # Man (1.8-7.7) K/mm3 Lymphocytes # (Manual) (1.2-5.4) K/mm3 POC ABG pH (7.35-7.45) POC ABG pO2 (80-105) Carbon Dioxide (22-30) mmol/L BUN (9-20) mg/dL Creatinine (0.8-1.5) mg/dL Glucose (75-100) mg/dL POC Glucose 129 H (70-105) Lactic Acid (0.7-2.0) mmol/L Total Creatine Kinase 222 H (55-170) units/L CK-MB (CK-2) 9.2 H (0.0-4.0) ng/mL CK-MB (CK-2) Rel Index 4.1 H (0-4) Troponin T 0.044 H D (0.00-0.029) ng/mL Urine WBC (Auto) 13.0 H (0.0-6.0) /HPF 08/21/18 08/22/18 08/22/18 Range/Units 15:47 00:01 04:27 RBC (3.65-5.03) M/mm3 Hgb (11.8-15.2) gm/dl Hct (35.5-45.6) % RDW (13.2-15.2) % Plt Count (140-440) K/mm3 Seg Neuts % (Manual) (40.0-70.0) % Lymphocytes % (Manual) (13.4-35.0) % Nucleated RBC % (0.0-0.9) % Seg Neutrophils # Man (1.8-7.7) K/mm3 Lymphocytes # (Manual) (1.2-5.4) K/mm3 POC ABG pH 7.457 H (7.35-7.45) POC ABG pO2 117 H (80-105) Carbon Dioxide (22-30) mmol/L BUN (9-20) mg/dL Creatinine (0.8-1.5) mg/dL Glucose (75-100) mg/dL POC Glucose 211 H (70-105) Lactic Acid 2.70 H* (0.7-2.0) mmol/L Total Creatine Kinase (55-170) units/L CK-MB (CK-2) (0.0-4.0) ng/mL CK-MB (CK-2) Rel Index (0-4) Troponin T (0.00-0.029) ng/mL Urine WBC (Auto) (0.0-6.0) /HPF 08/22/18 08/22/18 08/22/18 Range/Units 05:46 06:10 06:10 RBC 2.27 L (3.65-5.03) M/mm3 Hgb 7.0 L (11.8-15.2) gm/dl Hct 21.2 L (35.5-45.6) % RDW 16.8 H (13.2-15.2) % Plt Count 129 L (140-440) K/mm3 Seg Neuts % (Manual) 95.0 H (40.0-70.0) % Lymphocytes % (Manual) 1.0 L (13.4-35.0) % Nucleated RBC % 1.0 H (0.0-0.9) % Seg Neutrophils # Man 7.8 H (1.8-7.7) K/mm3 Lymphocytes # (Manual) 0.1 L (1.2-5.4) K/mm3 POC ABG pH (7.35-7.45) POC ABG pO2 (80-105) Carbon Dioxide 20 L (22-30) mmol/L BUN 63 H (9-20) mg/dL Creatinine 3.9 H (0.8-1.5) mg/dL Glucose 205 H (75-100) mg/dL POC Glucose 223 H (70-105) Lactic Acid (0.7-2.0) mmol/L Total Creatine Kinase (55-170) units/L CK-MB (CK-2) (0.0-4.0) ng/mL CK-MB (CK-2) Rel Index (0-4) Troponin T (0.00-0.029) ng/mL Urine WBC (Auto) (0.0-6.0) /HPF 08/22/18 Range/Units 12:57 RBC (3.65-5.03) M/mm3 Hgb (11.8-15.2) gm/dl Hct (35.5-45.6) % RDW (13.2-15.2) % Plt Count (140-440) K/mm3 Seg Neuts % (Manual) (40.0-70.0) % Lymphocytes % (Manual) (13.4-35.0) % Nucleated RBC % (0.0-0.9) % Seg Neutrophils # Man (1.8-7.7) K/mm3 Lymphocytes # (Manual) (1.2-5.4) K/mm3 POC ABG pH (7.35-7.45) POC ABG pO2 (80-105) Carbon Dioxide (22-30) mmol/L BUN (9-20) mg/dL Creatinine (0.8-1.5) mg/dL Glucose (75-100) mg/dL POC Glucose 166 H (70-105) Lactic Acid (0.7-2.0) mmol/L Total Creatine Kinase (55-170) units/L CK-MB (CK-2) (0.0-4.0) ng/mL CK-MB (CK-2) Rel Index (0-4) Troponin T (0.00-0.029) ng/mL Urine WBC (Auto) (0.0-6.0) /HPF Assessment and Plan Cultures: Blood cultures 08/21/2018 GPC in clusters 1 of 4. Sputum cultures 08/21/2018 Staph aureus. Assessment: 73 y/o male with a history of chronic kidney disease, liver disease, COPD, diabetes, GITA, colon cancer admitted on due to 4-day history of progressive shortness of breath and right neck/face edema and tenderness associated with po or po intake, patient became unresponsive en route. EMS unable to intubate. Pt bagged with 100%. Patient found in asystole at the ED receiving s/p CRP. 1) Severe Sepsis s/p arrest in the ED: Present on admission, manifested by tachypnea, leukocytosis, increased lactate. Etiology likely pneumonia +/- bacteremia. 2) Pneumonia: likely HCAP (recent admission to [facility] for MRSA cellulitis?). CXR shows bilateral infiltrate with airspace disease on RLL. Sputum cultures 08/21/2018 Staph aureus. ?MRSA pneumonia. 3) GPC Bacteremia: real v/s contaminant. Of note, recent history of MRSA infection. Blood cultures 08/21/2018 GPC in clusters 1 of 4. Sputum cultures 08/21/2018 Staph aureus. ?Staph bacteremia. 4) Left facial/neck swelling: parotitis ? neck infection? 5) Acute on CKD: renaly adjust meds 6) Elevated LFTs: from sepsis ? liver disease? 7) Acute encephalopathy: Per , at home he became hallucinating and combative, pulling off his CPAP ? sepsis Recommendations: - follow-up blood cultures, sputum and urine cultures - contact isolation - obtain CT head - obtaib CT soft tissue neck when stable to r/o left neck abscess/parotitis - obtain TTE - repeat blood cultures in 48h - continue vancomycin renally adjusted - stop aztreonam - continue levaquin for now, will stop soon Will follow. Vira Johnson MD Infectious Diseases [facility] ([facility] M [phone] O [phone]
--- NOTE | 2018-08-22 14:56 | Cat Scan Report ---
CT HEAD WITHOUT CONTRAST: HISTORY: Left sided occipital swelling. TECHNIQUE: Sequential 2.5mm CT images. COMPARISON: none. FINDINGS: Cerebral Parenchyma: Mild diffuse cortical volume loss is identified. A focal chronic cortical infarct in the right frontal lobe measures 2.7 x 1.9 cm. The remaining brain parenchyma is within normal limits. Cerebellum: Within normal limits. Brainstem: Within normal limits. Ventricles: Normal. Sella: Normal. Extra-axial spaces: Normal. Basal Cisterns: Normal. Intracranial Hemorrhage: None. Midline Shift: None. Calvarium: Intact. There is mild left temporal soft tissue swelling or edema. Sinuses: Normal. Mastoid Air Cells: Normal. Visualized Orbits: Normal. IMPRESSION: Mild volume loss. 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 Nonspecific left-sided soft tissue swelling or edema.
--- NOTE | 2018-08-22 14:58 | Cat Scan Report ---
CT FACIAL BONES WITHOUT CONTRAST: HISTORY: Left-sided occipital swelling. TECHNIQUE: Helical CT images with sagittal and coronal CT reformations. FINDINGS: All paranasal sinuses are clear. No sinus wall fracture, fluid level or opacification. The orbital cavities are symmetric and intact. The skull base and upper cervical spine demonstrate no evidence for acute injury. The mandible is intact although there appears to be anterior subluxation or dislocation at the left temporomandibular joint. There is adjacent soft tissue swelling in the left facial soft tissues and left parotid gland. No discrete hematoma or fluid collection. IMPRESSION: Subluxation or dislocation at the left temporomandibular joint is suspected. There is adjacent soft tissue swelling. No associated fracture is appreciated.
--- NOTE | 2018-08-22 19:33 | XRay Report ---
PROCEDURE: XR ABDOMEN 1V AP TECHNIQUE: AP view of the left lower chest/upper abdomen HISTORY: NGT placement COMPARISONS: . FINDINGS: There is an NG tube in place with the tip in the stomach. The visualized bowel gas pattern appears no rmal. The bones are unremarkable. IMPRESSION: NG tube tip in stomach This document is electronically signed by Amy Banegas MD., August 22 2018 07:31:47 PM ET
[2018-08-22] MEDS ORDERED: DUONEB *Not for PRN Use IH ONE (22:59)
--- NOTE | 2018-08-23 03:33 | XRay Report ---
PROCEDURE: XR CHEST 1V AP TECHNIQUE: Chest radiograph single view. HISTORY: follow up respiratory failure COMPARISONS: None . FINDINGS: Single frontal view of the chest was acquired and compared to the prior examination of August 22. Endotracheal tube lies in appropriate position. There is a nasogastric tube which extends into the st omach. There is cardiomegaly and moderate pulmonary edema, similar to the prior exam. There are small bilateral pleural effusions similar to prior exam. IMPRESSION: Moderate pulmonary edema similar to prior exam This document is electronically signed by Britton Mohr MD., August 23 2018 03:31:34 AM ET
[2018-08-23] MEDS: fentaNYL DRIP Premix 2,000 MCG/100 ML BAG IV SCH ×3 (04:24→18:19)
[2018-08-23 05:25] LABS: Hematocrit 22.8 % (35.5-45.6); Hemoglobin 7.5 gm/dl (11.8-15.2); Mean Corpuscular HGB Conc 33 % (32-34); Mean Corpuscular Hemoglobin 31 pg (28-32); Mean Corpuscular Volume 95 fl (84-94); Platelet Count 149 K/mm3 (140-440); Red Blood Count 2.39 M/mm3 (3.65-5.03); Red Cell Distribution Width 17.6 % (13.2-15.2)
[2018-08-23 05:45] LABS: Calcium 8.3 mg/dL (8.4-10.2)
[2018-08-23] MEDS: SOLU-Medrol IV SCH ×3 (05:48→22:17)
[2018-08-23] MEDS: HumaLOG SUB-Q SCH ×3 (05:48→18:00)
[2018-08-23 05:49] LABS: Albumin 2.8 g/dL (3.9-5); Calcium 8.2 mg/dL (8.4-10.2)
--- NOTE | 2018-08-23 07:59 | Progress Note ---
Assessment and Plan -s/p Cardiopulmonary arrest with ROSC -Acute on chronic hypoxemic respiratory failure on MVS -Lactic acidosis -Acute metabolic/respiratory acidosis -Acute on chronic renal failure (multifactorial) -Sepsis probably secondary to aspiration PNA -AE-COPD -Acute metabolic-toxic encephalopathy -Morbid obesity -NSTEMI- probably type 2 ischemia -Type 2 DM -h/o Liver disease -h/o Colon CA -Hyperkalemia LEFT TMJ JOINT DISLOCATION-POA May need renal replacement therapy to optimize UF and help facilitate liberation from MVS Daily SATs and SBTs -start today Will need maxillo facial surgery for evaluation of TMJ dislocation Discontinue the femoral CVC and place midline Enteric nutrition with aspiration precautions...HOB >40 -Lung protective strategies -Serial CXR and ABG-adjust minute ventilation for better gas exchange -VAP bundle addressed -Supplemental oxygen to keep O2 sats 88-90% -Restrictive oxygen therapy -Bronchodilators -Continue steroids with taper -Accuchecks with glycemic control. Target blood glucose <180mg/dL -Agitation management -Titrate sedation to RAAS 0 to -1 -Prevention of delirium, maintenance of sleep-wake cycle -Antibiotics per ID- currently on levofloxacin and vancomycin -Avoid nephrotoxic agents, adjust all antibiotics and medications for CrCL and GFR -VTE and Stress ulcer prophylaxis( Heparin/Famotidine) -Madison catheter in this critically ill patient with acute on chronic renal failure, requiring strict intake and output monitoring. Will assess daily, the need for ongoing Madison catheter Discussed with ID service Discussed in ICU-IDT rounds CONDITION: CRITICAL PROGNOSIS: GUARDED CODE STATUS: FULL CODE The high probability of a clinically significant, sudden or life-threatening deterioration of the [respiratory, cardiovascular, renal, gastrointestinal, neurology] system(s) required my full and direct attention, intervention and personal management. The aggregate critical care time was [45 ] minutes without overlap. Time includes spent on; [x] Data Review and interpretation [x] Patient assessment and monitoring of vital signs [x] Documentation [x] Medication orders and management Subjective Date of service: 08/23/18 Principal diagnosis: cardiac arrest Interval history: Patient is seen today for: cardiopulmonary arrest, severe sepsis, acute hypoxemic-hypercapnic respiratory failure on MVS, edgar on ckd Seen and examined at bedside; 24hour events reviewed; nursing and respiratory care staff consulted; no adverse overnight events reported to me; no fevers overnight, was hypothermic- external warming measure initiated Currently on fentanyl infusion at 2mcg. Madison in place with clear urine, inadequate response to lasix challenge Remains on full MVS, Vitals, labs, medications, chart and imaging reviewed. Discussed in ICU-IDT rounds. Objective Vital Signs - 12hr 08/22/18 08/22/18 08/22/18 20:00 20:01 20:11 Temperature 99.1 F Pulse Rate 70 70 70 Pulse Rate [ 73 From Monitor] Pulse Rate [ Throughout] Respiratory 14 14 16 Rate Respiratory Rate [ Throughout] Blood Pressure 113/49 113/49 O2 Sat by Pulse 96 97 98 Oximetry 08/22/18 08/22/18 08/22/18 20:21 20:31 20:41 Temperature Pulse Rate 71 72 72 Pulse Rate [ From Monitor] Pulse Rate [ Throughout] Respiratory 14 14 14 Rate Respiratory Rate [ Throughout] Blood Pressure 113/49 113/49 113/49 O2 Sat by Pulse 98 96 96 Oximetry 08/22/18 08/22/18 08/22/18 20:51 21:01 22:01 Temperature Pulse Rate 72 71 69 Pulse Rate [ From Monitor] Pulse Rate [ Throughout] Respiratory 13 15 14 Rate Respiratory Rate [ Throughout] Blood Pressure 113/49 118/55 113/52 O2 Sat by Pulse 98 97 95 Oximetry 08/22/18 08/22/18 08/22/18 23:00 23:01 23:10 Temperature Pulse Rate 71 Pulse Rate [ From Monitor] Pulse Rate [ 70 71 Throughout] Respiratory 13 Rate Respiratory 15 15 Rate [ Throughout] Blood Pressure 106/55 O2 Sat by Pulse 99 Oximetry 08/22/18 08/22/18 08/23/18 23:26 23:33 00:00 Temperature 99.3 F Pulse Rate 70 71 73 Pulse Rate [ 72 From Monitor] Pulse Rate [ Throughout] Respiratory 13 12 Rate Respiratory Rate [ Throughout] Blood Pressure 106/55 106/55 O2 Sat by Pulse 92 98 97 Oximetry 08/23/18 08/23/18 08/23/18 00:01 01:00 02:00 Temperature Pulse Rate 73 75 73 Pulse Rate [ From Monitor] Pulse Rate [ Throughout] Respiratory 10 L 12 15 Rate Respiratory Rate [ Throughout] Blood Pressure 115/56 115/56 109/58 O2 Sat by Pulse 94 91 94 Oximetry 08/23/18 08/23/18 08/23/18 03:01 03:24 04:00 Temperature 98.8 F Pulse Rate 69 70 66 Pulse Rate [ 66 From Monitor] Pulse Rate [ Throughout] Respiratory 12 20 Rate Respiratory Rate [ Throughout] Blood Pressure 108/53 106/55 O2 Sat by Pulse 97 99 Oximetry 08/23/18 08/23/18 08/23/18 04:01 05:01 06:01 Temperature Pulse Rate 67 66 67 Pulse Rate [ From Monitor] Pulse Rate [ Throughout] Respiratory 14 20 18 Rate Respiratory Rate [ Throughout] Blood Pressure 104/48 104/48 115/48 O2 Sat by Pulse 91 95 100 Oximetry 08/23/18 07:01 Temperature Pulse Rate 68 Pulse Rate [ From Monitor] Pulse Rate [ Throughout] Respiratory 18 Rate Respiratory Rate [ Throughout] Blood Pressure 120/52 O2 Sat by Pulse 100 Oximetry Constitutional: lethargic, appears uncomfortable, other (morbidly obese, orally intubated, 7.5ETT at 24cm at the lip, no dys-synchrony) Eyes: non-icteric ENT: oropharynx dry, other (orally intubated, ETT 8, 24cm at the lip, OGT in place) Neck: supple, no JVD, other (short neck) Effort: mildly labored Ascultation: Bilateral: diminished breath sounds, rhonchi (coarse BS bilaterally) Cardiovascular: regular rate and rhythm, other (S1,S2, no murmurs, no gallops or rubs) Gastrointestinal: normoactive bowel sounds, soft, non-tender, non-distended, other (Madison catheter in place, minimal urine tea colored) Integumentary: normal Extremities: no cyanosis, no edema, pulses normal, no ischemia or petechiae Neurologic: unable to assess Psychiatric: other (intubated, on fentanyl) CBC and BMP: 08/23/18 04:52 08/24/18 05:16 ABG, PT/INR, D-dimer: ABG POC ABG pH 7.249 (7.35-7.45) L 08/23/18 04:38 POC ABG pCO2 53.5 (35-45) H 08/23/18 04:38 POC ABG pO2 73 (80-105) L 08/23/18 04:38 POC ABG HCO3 23.4 (22-26 mml/L) 08/23/18 04:38 POC ABG Total CO2 25 (23-27mmol/L) 08/23/18 04:38 POC ABG O2 Sat 91 08/23/18 04:38 PT/INR, D-dimer PT 20.1 Sec. (12.2-14.9) H 08/21/18 04:42 INR 1.76 (0.87-1.13) H 08/21/18 04:42 Abnormal lab findings: Abnormal Labs 08/21/18 08/21/18 08/21/18 04:42 04:42 04:42 WBC 19.1 H RBC 2.49 L Hgb 7.7 L Hct 24.5 L MCV 98 H RDW 17.7 H Plt Count Seg Neuts % (Manual) 84.0 H Lymphocytes % (Manual) 7.0 L Monocytes % (Manual) 9.0 H Nucleated RBC % Seg Neutrophils # Man 16.0 H Lymphocytes # (Manual) Monocytes # (Manual) 1.7 H PT 20.1 H INR 1.76 H POC ABG pH POC ABG pCO2 POC ABG pO2 Potassium Carbon Dioxide BUN Creatinine Glucose POC Glucose Lactic Acid Calcium Total Bilirubin AST ALT Total Creatine Kinase CK-MB (CK-2) CK-MB (CK-2) Rel Index Troponin T 0.032 H C-Reactive Protein NT-Pro-B Natriuret Pep Albumin LDL Cholesterol Direct 44 L Urine WBC (Auto) 08/21/18 08/21/18 08/21/18 04:42 04:42 04:42 WBC RBC Hgb Hct MCV RDW Plt Count Seg Neuts % (Manual) Lymphocytes % (Manual) Monocytes % (Manual) Nucleated RBC % Seg Neutrophils # Man Lymphocytes # (Manual) Monocytes # (Manual) PT INR POC ABG pH POC ABG pCO2 POC ABG pO2 Potassium 6.0 H Carbon Dioxide 15 L BUN 57 H Creatinine 4.3 H Glucose 111 H POC Glucose Lactic Acid 5.80 H* Calcium Total Bilirubin 1.80 H AST 212 H ALT 94 H Total Creatine Kinase CK-MB (CK-2) CK-MB (CK-2) Rel Index Troponin T C-Reactive Protein NT-Pro-B Natriuret Pep 72687 H Albumin 3.2 L LDL Cholesterol Direct Urine WBC (Auto) 08/21/18 08/21/18 08/21/18 05:08 05:58 05:58 WBC RBC Hgb Hct MCV RDW Plt Count Seg Neuts % (Manual) Lymphocytes % (Manual) Monocytes % (Manual) Nucleated RBC % Seg Neutrophils # Man Lymphocytes # (Manual) Monocytes # (Manual) PT INR POC ABG pH 7.164 L POC ABG pCO2 46.3 H POC ABG pO2 229 H Potassium Carbon Dioxide BUN Creatinine Glucose POC Glucose Lactic Acid 5.10 H* Calcium Total Bilirubin AST ALT Total Creatine Kinase CK-MB (CK-2) CK-MB (CK-2) Rel Index Troponin T 0.035 H C-Reactive Protein NT-Pro-B Natriuret Pep Albumin LDL Cholesterol Direct Urine WBC (Auto) 08/21/18 08/21/18 08/21/18 06:45 06:45 06:53 WBC RBC Hgb Hct MCV RDW Plt Count Seg Neuts % (Manual) Lymphocytes % (Manual) Monocytes % (Manual) Nucleated RBC % Seg Neutrophils # Man Lymphocytes # (Manual) Monocytes # (Manual) PT INR POC ABG pH 7.160 L POC ABG pCO2 46.8 H POC ABG pO2 Potassium Carbon Dioxide BUN Creatinine Glucose POC Glucose Lactic Acid 4.70 H* Calcium Total Bilirubin AST ALT Total Creatine Kinase 234 H CK-MB (CK-2) 9.1 H CK-MB (CK-2) Rel Index Troponin T 0.032 H C-Reactive Protein NT-Pro-B Natriuret Pep Albumin LDL Cholesterol Direct Urine WBC (Auto) 08/21/18 08/21/18 08/21/18 10:43 10:43 10:45 WBC RBC Hgb Hct MCV RDW Plt Count Seg Neuts % (Manual) Lymphocytes % (Manual) Monocytes % (Manual) Nucleated RBC % Seg Neutrophils # Man Lymphocytes # (Manual) Monocytes # (Manual) PT INR POC ABG pH POC ABG pCO2 POC ABG pO2 Potassium Carbon Dioxide 17 L BUN 59 H Creatinine 4.2 H Glucose POC Glucose Lactic Acid 3.70 H* Calcium Total Bilirubin AST ALT Total Creatine Kinase 222 H CK-MB (CK-2) 9.2 H CK-MB (CK-2) Rel Index 4.1 H Troponin T 0.044 H D C-Reactive Protein NT-Pro-B Natriuret Pep Albumin LDL Cholesterol Direct Urine WBC (Auto) 08/21/18 08/21/18 08/21/18 11:38 12:33 15:03 WBC RBC Hgb Hct MCV RDW Plt Count Seg Neuts % (Manual) Lymphocytes % (Manual) Monocytes % (Manual) Nucleated RBC % Seg Neutrophils # Man Lymphocytes # (Manual) Monocytes # (Manual) PT INR POC ABG pH 7.250 L POC ABG pCO2 POC ABG pO2 121 H Potassium Carbon Dioxide BUN Creatinine Glucose POC Glucose 129 H Lactic Acid Calcium Total Bilirubin AST ALT Total Creatine Kinase CK-MB (CK-2) CK-MB (CK-2) Rel Index Troponin T C-Reactive Protein NT-Pro-B Natriuret Pep Albumin LDL Cholesterol Direct Urine WBC (Auto) 13.0 H 08/21/18 08/22/18 08/22/18 15:47 00:01 04:27 WBC RBC Hgb Hct MCV RDW Plt Count Seg Neuts % (Manual) Lymphocytes % (Manual) Monocytes % (Manual) Nucleated RBC % Seg Neutrophils # Man Lymphocytes # (Manual) Monocytes # (Manual) PT INR POC ABG pH 7.457 H POC ABG pCO2 POC ABG pO2 117 H Potassium Carbon Dioxide BUN Creatinine Glucose POC Glucose 211 H Lactic Acid 2.70 H* Calcium Total Bilirubin AST ALT Total Creatine Kinase CK-MB (CK-2) CK-MB (CK-2) Rel Index Troponin T C-Reactive Protein NT-Pro-B Natriuret Pep Albumin LDL Cholesterol Direct Urine WBC (Auto) 08/22/18 08/22/18 08/22/18 05:46 06:10 06:10 WBC RBC 2.27 L Hgb 7.0 L Hct 21.2 L MCV RDW 16.8 H Plt Count 129 L Seg Neuts % (Manual) 95.0 H Lymphocytes % (Manual) 1.0 L Monocytes % (Manual) Nucleated RBC % 1.0 H Seg Neutrophils # Man 7.8 H Lymphocytes # (Manual) 0.1 L Monocytes # (Manual) PT INR POC ABG pH POC ABG pCO2 POC ABG pO2 Potassium Carbon Dioxide 20 L BUN 63 H Creatinine 3.9 H Glucose 205 H POC Glucose 223 H Lactic Acid Calcium Total Bilirubin AST ALT Total Creatine Kinase CK-MB (CK-2) CK-MB (CK-2) Rel Index Troponin T C-Reactive Protein NT-Pro-B Natriuret Pep Albumin LDL Cholesterol Direct Urine WBC (Auto) 08/22/18 08/22/18 08/22/18 06:10 12:57 16:21 WBC RBC Hgb Hct MCV RDW Plt Count Seg Neuts % (Manual) Lymphocytes % (Manual) Monocytes % (Manual) Nucleated RBC % Seg Neutrophils # Man Lymphocytes # (Manual) Monocytes # (Manual) PT INR POC ABG pH 7.477 H POC ABG pCO2 POC ABG pO2 Potassium Carbon Dioxide BUN Creatinine Glucose POC Glucose 166 H Lactic Acid Calcium Total Bilirubin AST ALT Total Creatine Kinase CK-MB (CK-2) CK-MB (CK-2) Rel Index Troponin T C-Reactive Protein 23.60 H NT-Pro-B Natriuret Pep Albumin LDL Cholesterol Direct Urine WBC (Auto) 08/22/18 08/22/18 08/23/18 17:41 23:42 04:38 WBC RBC Hgb Hct MCV RDW Plt Count Seg Neuts % (Manual) Lymphocytes % (Manual) Monocytes % (Manual) Nucleated RBC % Seg Neutrophils # Man Lymphocytes # (Manual) Monocytes # (Manual) PT INR POC ABG pH 7.249 L POC ABG pCO2 53.5 H POC ABG pO2 73 L Potassium Carbon Dioxide BUN Creatinine Glucose POC Glucose 131 H 168 H Lactic Acid Calcium Total Bilirubin AST ALT Total Creatine Kinase CK-MB (CK-2) CK-MB (CK-2) Rel Index Troponin T C-Reactive Protein NT-Pro-B Natriuret Pep Albumin LDL Cholesterol Direct Urine WBC (Auto) 08/23/18 08/23/18 08/23/18 04:52 04:52 04:52 WBC RBC 2.39 L Hgb 7.5 L Hct 22.8 L MCV 95 H RDW 17.6 H Plt Count Seg Neuts % (Manual) Lymphocytes % (Manual) Monocytes % (Manual) Nucleated RBC % Seg Neutrophils # Man Lymphocytes # (Manual) Monocytes # (Manual) PT INR POC ABG pH POC ABG pCO2 POC ABG pO2 Potassium 5.6 H 5.6 H Carbon Dioxide 21 L BUN 71 H 72 H Creatinine 4.1 H 4.0 H Glucose 141 H 140 H POC Glucose Lactic Acid Calcium 8.3 L 8.2 L Total Bilirubin AST 247 H ALT 220 H Total Creatine Kinase CK-MB (CK-2) CK-MB (CK-2) Rel Index Troponin T C-Reactive Protein NT-Pro-B Natriuret Pep Albumin 2.8 L LDL Cholesterol Direct Urine WBC (Auto) 08/23/18 05:50 WBC RBC Hgb Hct MCV RDW Plt Count Seg Neuts % (Manual) Lymphocytes % (Manual) Monocytes % (Manual) Nucleated RBC % Seg Neutrophils # Man Lymphocytes # (Manual) Monocytes # (Manual) PT INR POC ABG pH POC ABG pCO2 POC ABG pO2 Potassium Carbon Dioxide BUN Creatinine Glucose POC Glucose 160 H Lactic Acid Calcium Total Bilirubin AST ALT Total Creatine Kinase CK-MB (CK-2) CK-MB (CK-2) Rel Index Troponin T C-Reactive Protein NT-Pro-B Natriuret Pep Albumin LDL Cholesterol Direct Urine WBC (Auto) Chest x-ray: image reviewed (Worsening aveolar infiltrates with some confluence in trace right lower lobe) Additional Studies: CT shows left TMJ dislocation v/s subluxation and some soft tissue swelling, no abscess, no parotitis. Allied health notes reviewed: RT
[2018-08-23] MEDS ORDERED: VANCOMYCIN PHARMACY TO DOSE IV SCH (08:00)
[2018-08-23] MEDS ORDERED: KIONEX PO ONE (09:00)
[2018-08-23] MEDS ORDERED: DIURIL IV ONE ×2 (09:00→22:00)
--- NOTE | 2018-08-23 09:03 | Progress Note ---
Assessment and Plan Cultures: Blood cultures 08/21/2018 CoNS 2 of 4 bottles. Sputum cultures 08/21/2018 Staph aureus. Urine cultures 08/21/2018 no growth Assessment: 73 y/o male with a history of chronic kidney disease, liver disease, COPD, diabetes, GITA, colon cancer admitted on due to 4-day history of progressive shortness of breath and right neck/face edema and tenderness associated with poor po intake, patient became unresponsive en route. EMS unable to intubate. Pt bagged with 100%. Patient found in asystole at the ED receiving s/p CRP. 1) Severe Sepsis s/p arrest in the ED: better, leukocytosis resolved, lactate now normal. Etiology likely pneumonia +/- bacteremia. 2) Pneumonia: likely HCAP (recent admission to [facility] for MRSA cellulitis?). CXR shows bilateral infiltrate with airspace disease on RLL. Sputum cultures 08/21/2018 Staph aureus. ?MRSA pneumonia. On vancomycin and levaquin. 3) CoNS Bacteremia: likely contaminant. Blood cultures 08/21/2018 CoNS 2 of 4 bottles. TTE no vegetations, EF 40-45% 4) Left facial/neck swelling/pain: CT shows left TMJ dislocation v/s subluxation and some soft tissue swelling, no abscess, no parotitis. 5) Acute on CKD: renaly adjust meds 6) Elevated LFTs: from sepsis ? liver disease? 7) Acute encephalopathy: Per , at home he became hallucinating and combative, pulling off his CPAP ? sepsis Recommendations: - ENT consult for left TMJ dislocation v/s subluxation on CT - follow-up sputum cultures - repeat blood cultures today - contact isolation - obtain TTE - continue vancomycin renally adjusted - stop levaquin Will follow. Vira Johnson MD Infectious Diseases [employer] [facility] [phone] O [phone] Subjective Date of service: 08/23/18 Principal diagnosis: cardiac arrest Interval history: Patient remains intubated sedated. No fever. ROS unable to obtain. Objective - Exam Narrative Exam: General appearance: sedated intubated in NAD Eyes: anicteric sclerae, moist conjunctivae; no lid-lag; PERRLA HENT: Atraumatic; oropharynx +ETT Neck: left neck mandibular area edema and tenderness spread to left temporal area. Lungs: norris rhonchi CV: RRR Abdomen: Soft, non-tender; no masses or hepatosplenomegaly Extremities: norris hands edema Skin: norris chronic calf discoloration Psych: sedated. Neuro: sedated right femoral line - Constitutional Vitals: Vital Signs Temp Pulse Resp BP Pulse Ox 98.8 F 68 18 120/52 100 08/23/18 04:00 08/23/18 07:01 08/23/18 07:01 08/23/18 07:01 08/23/18 07:01 Temperature -Last 24 Hours Temperature 98.8 F Temperature 99.3 F Temperature 99.1 F Temperature 97.6 F Temperature 98.6 F - Labs CBC & Chem 7: 08/23/18 04:52 08/23/18 04:52 Labs: Abnormal lab results 08/22/18 08/22/18 08/22/18 Range/Units 06:10 12:57 16:21 RBC (3.65-5.03) M/mm3 Hgb (11.8-15.2) gm/dl Hct (35.5-45.6) % MCV (84-94) fl RDW (13.2-15.2) % POC ABG pH 7.477 H (7.35-7.45) POC ABG pCO2 (35-45) POC ABG pO2 (80-105) Potassium (3.6-5.0) mmol/L Carbon Dioxide (22-30) mmol/L BUN (9-20) mg/dL Creatinine (0.8-1.5) mg/dL Glucose (75-100) mg/dL POC Glucose 166 H (70-105) Calcium (8.4-10.2) mg/dL AST (5-40) units/L ALT (7-56) units/L C-Reactive Protein 23.60 H (0.00-1.30) mg/dL Albumin (3.9-5) g/dL 08/22/18 08/22/18 08/23/18 Range/Units 17:41 23:42 04:38 RBC (3.65-5.03) M/mm3 Hgb (11.8-15.2) gm/dl Hct (35.5-45.6) % MCV (84-94) fl RDW (13.2-15.2) % POC ABG pH 7.249 L (7.35-7.45) POC ABG pCO2 53.5 H (35-45) POC ABG pO2 73 L (80-105) Potassium (3.6-5.0) mmol/L Carbon Dioxide (22-30) mmol/L BUN (9-20) mg/dL Creatinine (0.8-1.5) mg/dL Glucose (75-100) mg/dL POC Glucose 131 H 168 H (70-105) Calcium (8.4-10.2) mg/dL AST (5-40) units/L ALT (7-56) units/L C-Reactive Protein (0.00-1.30) mg/dL Albumin (3.9-5) g/dL 08/23/18 08/23/18 08/23/18 Range/Units 04:52 04:52 04:52 RBC 2.39 L (3.65-5.03) M/mm3 Hgb 7.5 L (11.8-15.2) gm/dl Hct 22.8 L (35.5-45.6) % MCV 95 H (84-94) fl RDW 17.6 H (13.2-15.2) % POC ABG pH (7.35-7.45) POC ABG pCO2 (35-45) POC ABG pO2 (80-105) Potassium 5.6 H 5.6 H (3.6-5.0) mmol/L Carbon Dioxide 21 L (22-30) mmol/L BUN 71 H 72 H (9-20) mg/dL Creatinine 4.1 H 4.0 H (0.8-1.5) mg/dL Glucose 141 H 140 H (75-100) mg/dL POC Glucose (70-105) Calcium 8.3 L 8.2 L (8.4-10.2) mg/dL AST 247 H (5-40) units/L ALT 220 H (7-56) units/L C-Reactive Protein (0.00-1.30) mg/dL Albumin 2.8 L (3.9-5) g/dL 08/23/18 Range/Units 05:50 RBC (3.65-5.03) M/mm3 Hgb (11.8-15.2) gm/dl Hct (35.5-45.6) % MCV (84-94) fl RDW (13.2-15.2) % POC ABG pH (7.35-7.45) POC ABG pCO2 (35-45) POC ABG pO2 (80-105) Potassium (3.6-5.0) mmol/L Carbon Dioxide (22-30) mmol/L BUN (9-20) mg/dL Creatinine (0.8-1.5) mg/dL Glucose (75-100) mg/dL POC Glucose 160 H (70-105) Calcium (8.4-10.2) mg/dL AST (5-40) units/L ALT (7-56) units/L C-Reactive Protein (0.00-1.30) mg/dL Albumin (3.9-5) g/dL
[2018-08-23] MEDS ORDERED: WATER FOR INJ Sterile (PF) 10 ML ONE ×2 (09:58→09:59)
[2018-08-23] MEDS ORDERED: VANCOMYCIN/NS 1 GM/250 ML 1 GM/250 ML BAG IV ONE (10:00)
--- NOTE | 2018-08-23 10:09 | Progress Note ---
Assessment and Plan - Patient Problems (1) Acute on chronic respiratory failure Current Visit: Yes Status: Acute Plan to address problem: Acute on chronic respiratory failure Currently intubated chest x-ray with consent for edema versus infiltrate We'll add Diuril 500 mg with furosemide 100 mg IV Remains intubated Wean oxygen as tolerated (2) Acute renal failure Current Visit: Yes Status: Acute Plan to address problem: Acute renal failure worsening Has baseline history of chronic kidney disease stage III Admission creatinine is 4.3, current creatinine 3.9 Current creatinine 4.1 mg/DL Currently has volume overload Now with hyperkalemia Chest x-ray with worsening edema Obtain kidney ultrasound Obtain urine studies Discontinue bicarbonate drip this will only worsen volume overload Avoid nephrotoxic medications (3) Hyperkalemia Current Visit: Yes Status: Acute Plan to address problem: Hyperkalemia worsening Recent cardiac arrest Received insulin and dextrose received calcium gluconate We'll give 30 g Kayexalate We'll also give diuretics (4) Lactic acidosis Current Visit: Yes Status: Acute Plan to address problem: Lactic acidosis in setting of cardiac arrest I reviewed echocardiogram with global hypokinesis and reduced ejection fraction about 40% consistent with CHF Trend lactic levels (5) Cardiac arrest Current Visit: Yes Status: Acute Plan to address problem: Cardiac arrest Query secondary to cardiogenic causes Status post intubation Remains intubated orally on broad-spectrum antibiotics Cardiology on board (6) Bacteremia due to coagulase-negative Staphylococcus Current Visit: Yes Status: Acute Plan to address problem: Tracheal culture with staph aureus also blood cultures growing same Continue broad-spectrum antibiotics Subjective Principal diagnosis: cardiac arrest Interval history: 73-year-old gentleman with medical history significant for hypertension, congestive heart failure, diabetes mellitus type 2, chronic kidney disease stage III admitted with complaints of shortness of breath for the past few days is on home oxygen 2 L nasal cannula prior to the arrival in the hospital developed pulseless electrical activity and code was called. Patient was seen today remains intubated FiO2 40% still has significant edema Chest x-ray with pulmonary edema Has had reduced urine output over the past 12hours blood pressure borderline but no severe hypotension noted. Objective - Vital Signs Vital signs: Vital Signs - 12hr 08/22/18 08/22/18 08/22/18 23:00 23:01 23:10 Temperature Pulse Rate 71 Pulse Rate [ From Monitor] Pulse Rate [ 70 71 Throughout] Respiratory 13 Rate Respiratory 15 15 Rate [ Throughout] Blood Pressure 106/55 O2 Sat by Pulse 99 Oximetry 08/22/18 08/22/18 08/23/18 23:26 23:33 00:00 Temperature 99.3 F Pulse Rate 70 71 73 Pulse Rate [ 72 From Monitor] Pulse Rate [ Throughout] Respiratory 13 12 Rate Respiratory Rate [ Throughout] Blood Pressure 106/55 106/55 O2 Sat by Pulse 92 98 97 Oximetry 08/23/18 08/23/18 08/23/18 00:01 01:00 02:00 Temperature Pulse Rate 73 75 73 Pulse Rate [ From Monitor] Pulse Rate [ Throughout] Respiratory 10 L 12 15 Rate Respiratory Rate [ Throughout] Blood Pressure 115/56 115/56 109/58 O2 Sat by Pulse 94 91 94 Oximetry 08/23/18 08/23/18 08/23/18 03:01 03:24 04:00 Temperature 98.8 F Pulse Rate 69 70 66 Pulse Rate [ 66 From Monitor] Pulse Rate [ Throughout] Respiratory 12 20 Rate Respiratory Rate [ Throughout] Blood Pressure 108/53 106/55 O2 Sat by Pulse 97 99 Oximetry 08/23/18 08/23/18 08/23/18 04:01 05:01 06:01 Temperature Pulse Rate 67 66 67 Pulse Rate [ From Monitor] Pulse Rate [ Throughout] Respiratory 14 20 18 Rate Respiratory Rate [ Throughout] Blood Pressure 104/48 104/48 115/48 O2 Sat by Pulse 91 95 100 Oximetry 08/23/18 08/23/18 07:01 09:09 Temperature Pulse Rate 68 66 Pulse Rate [ From Monitor] Pulse Rate [ Throughout] Respiratory 18 Rate Respiratory Rate [ Throughout] Blood Pressure 120/52 121/51 O2 Sat by Pulse 100 100 Oximetry - General Appearance General appearance: well-developed, well-nourished, sedated on ventilator EENT: ATNC, PERRL, mucous membranes moist Neck: no JVD Respiratory: Present: Rales, Ronchi Cardiology: regular, S1S2, faint heart tones Gastrointestinal: normal, normoactive bowel sounds, distended, obese Integumentary: no rash Neurologic: confused Psychiatric: mood/affect appropriate - Lab 08/23/18 04:52 08/23/18 04:52 Most recent lab results Calcium 8.2 mg/dL (8.4-10.2) L 08/23/18 04:52 Calcium 8.3 mg/dL (8.4-10.2) L 08/23/18 04:52 - Imaging Chest x-ray: image reviewed (I reviewed chest x-ray with worsening diffuse interstitial opacities consistent with pulmonary edema) Medications & Allergies - Medications Allergies/Adverse Reactions: Allergies Penicillins Allergy (Verified 08/21/18 04:49) Unknown -cillins Allergy (Uncoded 08/21/18 04:49) Unknown Home Medications: Home Medications Medication Instructions Recorded Confirmed Last Taken Type AtorvaSTATin [Lipitor] 10 mg PO QHS 08/21/18 08/21/18 Unknown History Ferrous Sulfate [Feosol] 325 mg PO QDAY 08/21/18 08/21/18 Unknown History Melatonin [Melatonin 10MG CAP] 10 mg PO DAILY 08/21/18 08/21/18 Unknown History NIFEdipine [Nifedipine ER] 60 mg PO BID 08/21/18 08/21/18 Unknown History Sennosides Tab [Senokot] 1 tab PO HS 08/21/18 08/21/18 Unknown History Tamsulosin [Flomax] 2 cap PO HS 08/21/18 08/21/18 Unknown History Torsemide [Demadex] 20 mg PO DAILY 08/21/18 08/21/18 Unknown History Venlafaxine HCl [Venlafaxin ER] 75 mg PO QDAY 08/21/18 08/21/18 Unknown History buPROPion [Wellbutrin] 100 mg PO DAILY 08/21/18 08/21/18 Unknown History Active Medications: Generic Name Dose Route Start Last Admin Trade Name Freq PRN Reason Stop Dose Admin Acetaminophen 650 mg 08/21/18 06:31 Tylenol PO Q4H PRN Pain MILD(1-3)/Fever >100.5/COOK Acetaminophen 650 mg 08/21/18 06:[address] Q4H PRN Pain MILD(1-3)/Fever >100.5/COOK Albuterol/Ipratropium 1 ampul 08/23/18 14:00 Duoneb *Not For Prn Use* IH Q6HRT LUIS Lipase/Protease/Amylase 1 each 08/22/18 09:25 Pancreamaris [place] 10,500 Unit FEEDTUBE PRN PRN For Clogged Feeding Tube Dextrose 50 ml 08/21/18 06:48 D50w (25gm) Syringe IV PRN PRN Hypoglycemia Famotidine 20 mg 08/22/18 10:00 08/22/18 10:02 Pepcid IV 20 mg DAILY LUIS Administration Fentanyl 50 mcg 08/21/18 11:34 08/21/18 18:50 Sublimaze IV 50 mcg Q10MIN PRN Administration ANALGESIA Heparin Sodium (Porcine) 5,000 unit 08/22/18 10:00 08/22/18 21:27 Heparin SUB-Q 5,000 unit Q12HR LUIS Administration Hydrophilic Ointment 1 applic 08/21/18 11:34 Vaseline Lip Therapy TP Q2HR PRN Dry Lips Fentanyl Citrate 2,000 mcg in 100 mls @ 7.053 mls/hr 08/21/18 12:00 08/23/18 04:24 Fentanyl Drip Premix IV 2 mcg/kg/hr TITR LUIS 14.107 mls/hr Administration Protocol 1 MCG/KG/HR Midazolam HCl 100 mg/ Sodium 100 mls @ 2 mls/hr 08/21/18 15:00 08/22/18 18:00 Chloride IV 0 mg/hr TITR LUIS 0 mls/hr Titration Protocol 2 MG/HR Vancomycin HCl 1 gm in 250 mls @ 167.007 mls/hr 08/23/18 10:00 Vancomycin/Ns 1 Gm/250 Ml IV 08/23/18 11:29 ONCE ONE Furosemide 100 mg/ Sodium 60 mls @ 100 mls/hr 08/23/18 10:30 Chloride IV 08/23/18 11:05 ONCE ONE Insulin Human Lispro 0 unit 08/21/18 12:00 08/23/18 05:48 Humalog SUB-Q 3 unit Q6HR LUIS Administration Protocol Methylprednisolone Sodium Succinate 20 mg 08/23/18 14:00 Solu-Medrol IV 08/24/18 06:01 Q8HR LUIS Methylprednisolone Sodium Succinate 20 mg 08/24/18 22:00 Solu-Medrol IV 08/25/18 10:01 Q12HR LUIS Methylprednisolone Sodium Succinate 20 mg 08/26/18 10:00 Solu-Medrol IV 08/29/18 10:01 Q24HR [facility] Midazolam HCl 2 mg 08/21/18 14:32 08/21/18 14:52 Versed IV 2 mg Q10MIN PRN Administration Sedation Multi-Ingred Cream/Lotion/Oil/Oint 1 applic 08/21/18 11:34 Artificial Tears Ophth Oint OU Q4HR PRN Dry Eye(s) Ondansetron HCl 4 mg 08/21/18 06:31 Zofran IV Q8H PRN Nausea And Vomiting Simple Syrup 15 ml 08/22/18 09:25 Simple Syrup FEEDTUBE PRN PRN Hypoglycemia Simple Syrup 30 ml 08/22/18 09:25 Simple Syrup FEEDTUBE PRN PRN Hypoglycemia Sodium Bicarbonate 325 mg 08/22/18 09:25 Sodium Bicarbonate FEEDTUBE PRN PRN For Clogged Feeding Tube Sodium Chloride 10 ml 08/21/18 10:00 08/22/18 21:26 Sodium Chloride Flush Syringe 10 Ml IV 10 ml BID LUIS Administration Sodium Chloride 10 ml 08/21/18 06:31 Sodium Chloride Flush Syringe 10 Ml IV PRN PRN LINE FLUSH
[2018-08-23] MEDS: PEPCID IV SCH (10:10)
[2018-08-23] MEDS: HEPARIN SUB-Q SCH ×2 (10:10→22:17)
[2018-08-23] MEDS: SODIUM CHLORIDE FLUSH SYRINGE 10 ML IV SCH (10:11)
[2018-08-23] MEDS ORDERED: LASIX 100 MG in NACL 0.9% 50 ML IV ONE (10:30)
[2018-08-23] MEDS ORDERED: WATER FOR INJ Sterile (PF) IV ONE (11:00)
--- NOTE | 2018-08-23 12:18 | Progress Note ---
Assessment and Plan Cont supportive management. The patient has been seen in conjunction with Dr. Nav Lua who agrees with the assessment and plan of care. - Patient Problems (1) Cardiac arrest Current Visit: Yes Status: Acute (2) Acute HFrEF (heart failure with reduced ejection fraction) Current Visit: Yes Status: Acute (3) Cardiomyopathy Current Visit: Yes Status: Acute (4) Acute on chronic respiratory failure Current Visit: Yes Status: Acute (5) Acute renal failure Current Visit: Yes Status: Acute (6) Hyperkalemia Current Visit: Yes Status: Acute (7) Lactic acidosis Current Visit: Yes Status: Acute (8) Pneumonia Current Visit: Yes Status: Acute (9) Sepsis Current Visit: Yes Status: Suspected (10) Anemia Current Visit: Yes Status: Acute (11) GI bleed Current Visit: Yes Status: Suspected (12) Elevated liver enzymes Current Visit: Yes Status: Acute (13) Elevated troponin Current Visit: Yes Status: Acute (14) Altered mental status Current Visit: Yes Status: Acute Subjective Date of service: 08/23/18 Principal diagnosis: cardiac arrest Interval history: pt remains intubated, sedated. no family at bedside. Objective Last Vital Signs Temp 98.8 F 08/23/18 04:00 Pulse 66 08/23/18 09:09 Resp 18 08/23/18 07:01 BP 121/51 08/23/18 09:09 Pulse Ox 100 08/23/18 09:09 - Physical Examination General: Other (intubated, sedated) Neck: Positive: neck supple Cardiac: Positive: Reg Rate and Rhythm, S1/S2 Lungs: Positive: Oxygen, Ventilated Respirations Neuro: Positive: Other (intubated, sedated) Skin: Negative: Rash Extremities: Absent: edema - Labs and Meds Cardiac Enzymes 08/23/18 Range/Units 04:52 AST 247 H (5-40) units/L CBC 08/23/18 Range/Units 04:52 WBC 10.2 (4.5-11.0) K/mm3 RBC 2.39 L (3.65-5.03) M/mm3 Hgb 7.5 L (11.8-15.2) gm/dl Hct 22.8 L (35.5-45.6) % Plt Count 149 (140-440) K/mm3 Comprehensive Metabolic Panel 08/23/18 08/23/18 Range/Units 04:52 04:52 Sodium 138 138 (137-145) mmol/L Potassium 5.6 H 5.6 H (3.6-5.0) mmol/L Chloride 100.0 99.6 (98-107) mmol/L Carbon Dioxide 21 L 22 (22-30) mmol/L BUN 71 H 72 H (9-20) mg/dL Creatinine 4.1 H 4.0 H (0.8-1.5) mg/dL Glucose 141 H 140 H (75-100) mg/dL Calcium 8.3 L 8.2 L (8.4-10.2) mg/dL AST 247 H (5-40) units/L ALT 220 H (7-56) units/L Alkaline Phosphatase 101 (35-129) units/L Total Protein 6.5 (6.3-8.2) g/dL Albumin 2.8 L (3.9-5) g/dL - Imaging and Cardiology EKG: report reviewed, image reviewed Echo: report reviewed ( EF 40-45%, LV mod dilated, pseudonormalization, RV severely dilated, RA mod dilated, mod TR, RVSP 47mmHg. ) - Telemetry EKG Rhythm: Sinus Rhythm - EKG Sinus rhythms and dysrhythmias: sinus rhythm AV and intraventricular conduction: right bundle branch block - Allied health notes Allied health notes reviewed: RT
[2018-08-23] MEDS: DUONEB *Not for PRN Use IH SCH ×2 (14:32→19:49)
--- NOTE | 2018-08-23 15:10 | Progress Note ---
Assessment and Plan Assessment and plan: 73 -year-old man with a history of COPD, chronic kidney disease, liver disease, diabetes, GITA, colon cancer, comes to the emergency room with complaints of shortness of 4. Per the he was in the hospital in June for COPD. Probably discharge he had decreased oral intake, last time became more short of breath, hallucinating and then became combative, pulling off his CPAP. She called EMS, they had difficulty intubating the patient in the field, he was bagged, per EMS, when he arrived at the entrance of the hospital he lost his pulse. Patient was intubated in the emergency room, given 2 rounds of epi with ROSC. Status post hyperkalemic cocktail Acute respiratory failure s/p Cardiac arrest Severe Sepsis COPD exacerbation Pneumonia, HCAP-PRESUMED GNR Acute Metabolic Encephalopathy LEFT TMJ JOINT DISLOCATION-POA Hyperkalemia Type 2 NM Anemia ?acute blood loss KHRIS secondary to vasomotor nephropathy with possible Probably acute on chronic kidney disease Abnormal cardiac enzymes liver disease diabetes Left facail contusion- No evidence of trauma ?infection GITA colon cancer Morbidly obese Plan Continue supportvie care- Remains intubated, off versed, still on fentanyl drip, hypothermia with bedhugg started Obtain ID consult considering GPC in culture and recent hx of MRSA CELLULITIS check blood cultures, h/h -obtain records from the [place] -discussed with nursing staff, No family present. Aspiration precautions Cardiology and Critical care input noted Abx per ID recs Per family aptient has had prior admission to [place] [facility] and was supposed to be on BIPAP which has been 4 weeks delayed. Case mangement consutl Echo reviewed, no vegitation noted. EF 40-45%, Discussed with cardiology The high probability of a clinically significant, sudden or life-threatening deterioration of the [respiratory, cardiovascular, renal , gastrointestinal, neurology] system(s) required my full and direct attention, intervention and personal management. The aggregate critical care time was [35 ] minutes without overlap. [x] Data Review and interpretation [x] Patient assessment and monitoring of vital signs [x] Documentation [x] Medication orders and management History Interval history: Patient seen and examined, remains on full ventilatory support. No adverse complaints reported to me overnight Hospitalist Physical - Physical exam Narrative exam: General Apperance: The patient lying in bed, on full mechanical ventilatory support, daughter at bedside. HEENT: Normocephalic, atraumatic. Pupils equally round and reactive to light, unable to do EOM, no sclericterus or JVD or thyromegaly or nodule. , no carotid bruit, mucous membranes moist, unable to examine oral cavity, ET tube in place Heart: S1-S2, regular is rhythm Lungs: Clear to auscultation bilaterally, breathing comfortable Abdomen: Positive bowel sounds, soft, nondistended, no organomegaly Extremities: No edema cyanosis clubbing Skin: no rash, nodule, warm and dry Neuro: Sedated - Constitutional Vitals: Temp Pulse Resp BP Pulse Ox 97.7 F 66 19 121/51 100 08/23/18 12:00 08/23/18 14:43 08/23/18 14:43 08/23/18 13:01 08/23/18 13:01 General appearance: Present: other (intubated, chronically ill appearing) Results - Labs CBC & Chem 7: 08/23/18 04:52 08/24/18 05:16 Labs: Laboratory Last Values WBC 10.2 K/mm3 (4.5-11.0) 08/23/18 04:52 RBC 2.39 M/mm3 (3.65-5.03) L 08/23/18 04:52 Hgb 7.5 gm/dl (11.8-15.2) L 08/23/18 04:52 Hct 22.8 % (35.5-45.6) L 08/23/18 04:52 MCV 95 fl (84-94) H 08/23/18 04:52 MCH 31 pg (28-32) 08/23/18 04:52 MCHC 33 % (32-34) 08/23/18 04:52 RDW 17.6 % (13.2-15.2) H 08/23/18 04:52 Plt Count 149 K/mm3 (140-440) 08/23/18 04:52 Lymph % (Auto) [place] 08/21/18 04:42 [place] % (Auto) [place] 08/21/18 04:42 Eos % (Auto) [place] 08/21/18 04:42 Baso % (Auto) [place] 08/21/18 04:42 Lymph # [place] 08/21/18 04:42 [place] # [place] 08/21/18 04:42 Eos # [place] 08/21/18 04:42 Baso # [place] 08/21/18 04:42 Add Manual Diff Complete 08/22/18 06:10 Total Counted 100 08/22/18 06:10 Seg Neutrophils % [place] 08/22/18 06:10 Seg Neuts % (Manual) 95.0 % (40.0-70.0) H 08/22/18 06:10 3.0 % 08/22/18 06:10 1.0 % (13.4-35.0) L 08/22/18 06:10 Reactive Lymphs % (Man) 0 % 08/22/18 06:10 1.0 % (0.0-7.3) 08/22/18 06:10 0 % (0.0-4.3) 08/22/18 06:10 0 % (0.0-1.8) 08/22/18 06:10 0 % 08/22/18 06:10 0 % 08/22/18 06:10 0 % 08/22/18 06:10 0 % 08/22/18 06:10 Nucleated RBC % 1.0 % (0.0-0.9) H 08/22/18 06:10 Seg Neutrophils # [place] 08/21/18 04:42 Seg Neutrophils # Man 7.8 K/mm3 (1.8-7.7) H 08/22/18 06:10 Band Neutrophils # 0.2 K/mm3 08/22/18 06:10 0.1 K/mm3 (1.2-5.4) L 08/22/18 06:10 Abs React Lymphs (Man) 0.0 K/mm3 08/22/18 06:10 0.1 K/mm3 (0.0-0.8) 08/22/18 06:10 0.0 K/mm3 (0.0-0.4) 08/22/18 06:10 0.0 K/mm3 (0.0-0.1) 08/22/18 06:10 0.0 K/mm3 08/22/18 06:10 0.0 K/mm3 08/22/18 06:10 0.0 K/mm3 08/22/18 06:10 Blast Cells # 0.0 K/mm3 08/22/18 06:10 WBC Morphology Not Reportable 08/22/18 06:10 Hypersegmented Neuts Not Reportable 08/22/18 06:10 Hyposegmented Neuts Not Reportable 08/22/18 06:10 Hypogranular Neuts Not Reportable 08/22/18 06:10 Not Reportable 08/22/18 06:10 Not Reportable 08/22/18 06:10 Not Reportable 08/22/18 06:10 Not Reportable 08/22/18 06:10 Not Reportable 08/22/18 06:10 Not Reportable 08/22/18 06:10 Consistent w auto 08/22/18 06:10 Not Reportable 08/22/18 06:10 Plt Clumps, EDTA Not Reportable 08/22/18 06:10 Not Reportable 08/22/18 06:10 Not Reportable 08/22/18 06:10 Not Reportable 08/22/18 06:10 Plt Morphology Comment Not Reportable 08/22/18 06:10 RBC Morphology Normal 08/22/18 06:10 Dimorphic RBCs Not Reportable 08/22/18 06:10 Not Reportable 08/22/18 06:10 Not Reportable 08/22/18 06:10 Not Reportable 08/22/18 06:10 Not Reportable 08/22/18 06:10 Not Reportable 08/22/18 06:10 Not Reportable 08/22/18 06:10 Not Reportable 08/22/18 06:10 Not Reportable 08/22/18 06:10 Not Reportable 08/22/18 06:10 Not Reportable 08/22/18 06:10 Not Reportable 08/22/18 06:10 Not Reportable 08/22/18 06:10 Not Reportable 08/22/18 06:10 Not Reportable 08/22/18 06:10 Not Reportable 08/22/18 06:10 Not Reportable 08/22/18 06:10 Not Reportable 08/22/18 06:10 Not Reportable 08/22/18 06:10 Not Reportable 08/22/18 06:10 Acanthocytes (Spur) Not Reportable 08/22/18 06:10 Rouleaux Not Reportable 08/22/18 06:10 Not Reportable 08/22/18 06:10 Not Reportable 08/22/18 06:10 Not Reportable 08/22/18 06:10 Not Reportable 08/22/18 06:10 Hem Pathologist Commnt No 08/22/18 06:10 PT 20.1 Sec. (12.2-14.9) H 08/21/18 04:42 INR 1.76 (0.87-1.13) H 08/21/18 04:42 APTT 30.8 Sec. (24.2-36.6) 08/21/18 04:42 POC ABG pH 7.337 (7.35-7.45) L 08/23/18 12:36 POC ABG pCO2 44.2 (35-45) 08/23/18 12:36 POC ABG pO2 145 (80-105) H 08/23/18 12:36 POC ABG HCO3 23.7 (22-26 mml/L) 08/23/18 12:36 POC ABG Total CO2 25 (23-27mmol/L) 08/23/18 12:36 POC ABG O2 Sat 99 08/23/18 12:36 POC ABG Base Excess -2 ((-2) - (+3)mmol/L) 08/23/18 12:36 55 % 08/23/18 12:36 Sodium 138 mmol/L (137-145) 08/23/18 04:52 Sodium 138 mmol/L (137-145) 08/23/18 04:52 Potassium 5.6 mmol/L (3.6-5.0) H 08/23/18 04:52 Potassium 5.6 mmol/L (3.6-5.0) H 08/23/18 04:52 Chloride 99.6 mmol/L (98-107) 08/23/18 04:52 Chloride 100.0 mmol/L (98-107) 08/23/18 04:52 Carbon Dioxide 21 mmol/L (22-30) L 08/23/18 04:52 Carbon Dioxide 22 mmol/L (22-30) 08/23/18 04:52 22 mmol/L 08/23/18 04:52 23 mmol/L 08/23/18 04:52 BUN 71 mg/dL (9-20) H 08/23/18 04:52 BUN 72 mg/dL (9-20) H 08/23/18 04:52 4.0 mg/dL (0.8-1.5) H 08/23/18 04:52 4.1 mg/dL (0.8-1.5) H 08/23/18 04:52 Estimated GFR 14 ml/min 08/23/18 04:52 Estimated GFR 15 ml/min 08/23/18 04:52 17 % 08/23/18 04:52 18 % 08/23/18 04:52 Glucose 140 mg/dL (75-100) H 08/23/18 04:52 Glucose 141 mg/dL (75-100) H 08/23/18 04:52 POC Glucose 160 (70-105) H 08/23/18 05:50 Lactic Acid 1.30 mmol/L (0.7-2.0) 08/21/18 20:50 Calcium 8.2 mg/dL (8.4-10.2) L 08/23/18 04:52 Calcium 8.3 mg/dL (8.4-10.2) L 08/23/18 04:52 0.80 mg/dL (0.1-1.2) 08/23/18 04:52 AST 247 units/L (5-40) H 08/23/18 04:52 ALT 220 units/L (7-56) H 08/23/18 04:52 101 units/L (35-129) 08/23/18 04:52 222 units/L (55-170) H 08/21/18 10:45 CK-MB (CK-2) 9.2 ng/mL (0.0-4.0) H 08/21/18 10:45 CK-MB (CK-2) Rel Index 4.1 (0-4) H 08/21/18 10:45 0.044 ng/mL (0.00-0.029) H D 08/21/18 10:45 23.60 mg/dL (0.00-1.30) H 08/22/18 06:10 NT-Pro-B Natriuret Pep 26632 pg/mL (0-900) H 08/23/18 08:38 6.5 g/dL (6.3-8.2) 08/23/18 04:52 2.8 g/dL (3.9-5) L 08/23/18 04:52 0.8 % 08/23/18 04:52 Triglycerides 87 mg/dL (2-149) 08/21/18 04:42 Cholesterol 93 mg/dL (50-199) 08/21/18 04:42 44 mg/dL (50-130) L 08/21/18 04:42 41 mg/dL (40-59) 08/21/18 04:42 2.26 % 08/21/18 04:42 Yellow (Yellow) 08/21/18 15:03 Slightly-cloudy (Clear) 08/21/18 15:03 5.0 (5.0-7.0) 08/21/18 15:03 Ur Specific [place] 1.015 (1.003-1.030) 08/21/18 15:03 30 mg/dl mg/dL (Negative) 08/21/18 15:03 Neg mg/dL (Negative) 08/21/18 15:03 Neg mg/dL (Negative) 08/21/18 15:03 Mod (Negative) 08/21/18 15:03 Neg (Negative) 08/21/18 15:03 Neg (Negative) 08/21/18 15:03 < 2.0 mg/dL (<2.0) 08/21/18 15:03 Ur Leukocyte Esterase Tr (Negative) 08/21/18 15:03 13.0 /HPF (0.0-6.0) H 08/21/18 15:03 15.0 /HPF (0.0-6.0) 08/21/18 15:03 U Epithel Cells (Auto) 1.0 /HPF (0-13.0) 08/21/18 15:03 1+ /HPF (Negative) 08/21/18 15:03 Few /HPF 08/21/18 15:03 Active Medications - Current Medications Current Medications: Generic Name Dose Route Start Last Admin Trade Name Freq PRN Reason Stop Dose Admin Acetaminophen 650 mg 08/21/18 06:31 Tylenol PO Q4H PRN Pain MILD(1-3)/Fever >100.5/COOK Acetaminophen 650 mg 08/21/18 06:[address] Q4H PRN Pain MILD(1-3)/Fever >100.5/COOK Albuterol/Ipratropium 1 ampul 08/23/18 14:00 08/23/18 14:32 Duoneb *Not For Prn Use* IH 1 ampul Q6HRT LUIS Administration Lipase/Protease/Amylase 1 each 08/22/18 09:25 [place] 10,500 Unit FEEDTUBE PRN PRN For Clogged Feeding Tube Dextrose 50 ml 08/21/18 06:48 D50w (25gm) Syringe IV PRN PRN Hypoglycemia Famotidine 20 mg 08/22/18 10:00 08/23/18 10:10 Pepcid IV 20 mg DAILY LUIS Administration Fentanyl 50 mcg 08/21/18 11:34 08/21/18 18:50 Sublimaze IV 50 mcg Q10MIN PRN Administration ANALGESIA Heparin Sodium (Porcine) 5,000 unit 08/22/18 10:00 08/23/18 10:10 Heparin SUB-Q 5,000 unit Q12HR LUIS Administration Hydrophilic Ointment 1 applic 08/21/18 11:34 Vaseline Lip Therapy TP Q2HR PRN Dry Lips Fentanyl Citrate 2,000 mcg in 100 mls @ 7.053 mls/hr 08/21/18 12:00 08/23/18 11:24 Fentanyl Drip Premix IV 2 mcg/kg/hr TITR LUIS 14.107 mls/hr Administration Protocol 1 MCG/KG/HR Midazolam HCl 100 mg/ Sodium 100 mls @ 2 mls/hr 08/21/18 15:00 08/22/18 18:00 Chloride IV 0 mg/hr TITR LUIS 0 mls/hr Titration Protocol 2 MG/HR Insulin Human Lispro 0 unit 08/21/18 12:00 08/23/18 12:18 Humalog SUB-Q 3 unit Q6HR LUIS Administration Protocol Methylprednisolone Sodium Succinate 20 mg 08/23/18 14:00 08/23/18 13:36 Solu-Medrol IV 08/24/18 06:01 20 mg Q8HR LUIS Administration Methylprednisolone Sodium Succinate 20 mg 08/24/18 22:00 Solu-Medrol IV 08/25/18 10:01 Q12HR LUIS Methylprednisolone Sodium Succinate 20 mg 08/26/18 10:00 Solu-Medrol IV 08/29/18 10:01 Q24HR LUIS Midazolam HCl 2 mg 08/21/18 14:32 08/21/18 14:52 Versed IV 2 mg Q10MIN PRN Administration Sedation Multi-Ingred Cream/Lotion/Oil/Oint 1 applic 08/21/18 11:34 Artificial Tears Ophth Oint OU Q4HR PRN Dry Eye(s) Ondansetron HCl 4 mg 08/21/18 06:31 Zofran IV Q8H PRN Nausea And Vomiting Simple Syrup 15 ml 08/22/18 09:25 Simple Syrup FEEDTUBE PRN PRN Hypoglycemia Simple Syrup 30 ml 08/22/18 09:25 Simple Syrup FEEDTUBE PRN PRN Hypoglycemia Sodium Bicarbonate 325 mg 08/22/18 09:25 Sodium Bicarbonate FEEDTUBE PRN PRN For Clogged Feeding Tube Sodium Chloride 10 ml 08/21/18 10:00 08/23/18 10:11 Sodium Chloride Flush Syringe 10 Ml IV 10 ml BID LUIS Administration Sodium Chloride 10 ml 08/21/18 06:31 Sodium Chloride Flush Syringe 10 Ml IV PRN PRN LINE FLUSH Nutrition/Malnutrition Assess - Dietary Evaluation Nutrition/Malnutrition Findings: Nutrition Notes Start: 08/21/18 16:58 Freq: Status: Active Protocol: Document 08/22/18 09:17 LP (Rec: 08/22/18 09:23 LP [id number]) Nutrition Notes Need for Assessment generated from: MD Order Initial or Follow up Reassessment Current Diagnosis Acute Kidney Injury,CKD(stage I-IV),COPD,Diabetes,Sepsis Other Pertinent Diagnosis Hx colon CA, Pneu Current Diet NPO Labs/Tests Reviewed Pertinent Medications Reviewed Height 5 ft 6 in Weight 144.6 kg [place] Body Weight (kg) 64.54 BMI 51.4 Subjective/Other Information Consult for TF. Pt continues on vent. Burn Absent Trauma Absent #1 Nutrition Diagnosis Inadequate oral intake Diagnosis Progress(for reassessment Continues documentation) Is patient on ventilator? Yes Is Patient Ambulatory and/or Out of Bed No REE-([facility]-confined to bed) 2571.672 Kcal/Kg value to use for calculation 14 Approximate Energy Requirements Using 2023 kcal/Kg Calculation Used for Recommendations Kcal/kg Additional Notes Protein needs are 161g (2.5g/ kg IBW) Fluid Needs: 1 ml/kcal Nutrition Intervention Change Diet Order: TF Nutrition Support: Nepro at 45ml/hr 150ml q4h flush Kcal 1,944 Protein (gm) 87 Fluid (mL) 785 Goal #1 Meet at least 80% of kcal and protein needs Anticipated Discharge Needs: Unable to determine at this time Follow-Up By: 08/24/18 Additional Comments Follow for TF start/tolerance
[2018-08-23 15:13] LABS: Calcium 8.1 mg/dL (8.4-10.2)
[2018-08-23] MEDS ORDERED: LASIX IV ONE (21:08)
[2018-08-23] MEDS ORDERED: DIURIL IV STA (21:09)
[2018-08-23 23:52] LABS: Calcium 8.4 mg/dL (8.4-10.2)
--- NOTE | 2018-08-24 04:48 | XRay Report ---
PROCEDURE: XR CHEST 1V AP TECHNIQUE: Chest radiograph single view. HISTORY: follow up respiratory failure COMPARISONS: None . FINDINGS: Single frontal view of the chest was acquired and compared to the prior examination of August 23. There is an endotracheal tube with its tip in appropriate position. There is a nasogastric tube, the distal tip of which is not included on the exam. There is cardiomegaly. There is mild pulmonary edema similar to the prior exam. There is some bibasil ar dependent consolidation which is likely atelectasis. IMPRESSION: Cardiomegaly and mild pulmonary edema Bibasilar dependent consolidation unchanged This document is electronically signed by Britton Mohr MD., August 24 2018 04:46:19 AM ET
[2018-08-24 05:57] LABS: Calcium 7.9 mg/dL (8.4-10.2)
[2018-08-24] MEDS: DUONEB *Not for PRN Use IH SCH ×3 (06:18→20:15)
[2018-08-24] MEDS: SOLU-Medrol IV SCH ×2 (07:08→22:46)
[2018-08-24] MEDS: HumaLOG SUB-Q SCH ×4 (07:08→17:17)
[2018-08-24] MEDS ORDERED: VANCOMYCIN PHARMACY TO DOSE IV SCH (08:00)
--- NOTE | 2018-08-24 08:13 | Progress Note ---
Assessment and Plan Cultures: Blood cultures 08/21/2018 CoNS 2 of 4 bottles. Sputum cultures 08/21/2018 MSSA Urine cultures 08/21/2018 no growth Assessment: 73 y/o male with a history of chronic kidney disease, liver disease, COPD, diabetes, GITA, colon cancer admitted on due to 4-day history of progressive shortness of breath and right neck/face edema and tenderness associated with poor po intake, patient became unresponsive en route. EMS unable to intubate. Pt bagged with 100%. Patient found in asystole at the ED receiving s/p CRP. 1) Severe Sepsis s/p arrest in the ED: better, leukocytosis resolved, lactate now normal. Etiology likely pneumonia +/- bacteremia. 2) Pneumonia: likely HCAP (recent admission to [facility] for MRSA cellulitis?). CXR shows bilateral infiltrate with airspace disease on RLL. Sputum cultures 08/21/2018 Staph aureus. ?MRSA pneumonia. On vancomycin and levaquin. 3) CoNS Bacteremia: likely contaminant. Blood cultures 08/21/2018 CoNS 2 of 4 bottles. TTE no vegetations, EF 40-45% 4) Left facial/neck swelling/pain: CT shows left TMJ dislocation v/s subluxation and some soft tissue swelling, no abscess, no parotitis. 5) Acute on CKD: renaly adjust meds 6) Elevated LFTs: from sepsis ? liver disease? 7) Acute encephalopathy: Per , at home he became hallucinating and combative, pulling off his CPAP ? 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 Will follow. Vira Johnson MD Infectious Diseases [employer] [facility] M [phone] O [phone] Subjective Date of service: 08/24/18 Principal diagnosis: cardiac arrest Interval history: Patient remains intubated sedated. No fever. ROS unable to obtain. Objective - Exam Narrative Exam: General appearance: sedated intubated in NAD Eyes: anicteric sclerae, moist conjunctivae; no lid-lag; PERRLA HENT: Atraumatic; oropharynx +ETT Neck: left neck mandibular area edema and tenderness spread to left temporal area. Lungs: norris rhonchi CV: RRR Abdomen: Soft, non-tender; no masses or hepatosplenomegaly Extremities: norris hands edema Skin: norris chronic calf discoloration Psych: sedated. Neuro: sedated right femoral line - Constitutional Vitals: Vital Signs Temp Pulse Resp BP Pulse Ox 99.6 F 72 13 121/51 98 08/24/18 06:00 08/24/18 06:00 08/24/18 06:00 08/24/18 06:00 08/24/18 06:00 Temperature -Last 24 Hours Temperature 99.6 F Temperature 99.1 F Temperature 98.9 F Temperature 98.1 F Temperature 97.7 F Temperature 97.7 F - Labs CBC & Chem 7: 08/23/18 04:52 08/24/18 05:16 Labs: Abnormal lab results 08/23/18 08/23/18 08/23/18 Range/Units 08:38 12:21 12:36 POC ABG pH 7.337 L (7.35-7.45) POC ABG pCO2 (35-45) POC ABG pO2 145 H (80-105) Sodium (137-145) mmol/L Potassium (3.6-5.0) mmol/L Chloride (98-107) mmol/L BUN (9-20) mg/dL Creatinine (0.8-1.5) mg/dL Glucose (75-100) mg/dL POC Glucose 177 H (70-105) Calcium (8.4-10.2) mg/dL NT-Pro-B Natriuret Pep 18660 H (0-900) pg/mL 08/23/18 08/23/18 08/23/18 Range/Units 14:24 18:05 22:43 POC ABG pH (7.35-7.45) POC ABG pCO2 (35-45) POC ABG pO2 (80-105) Sodium 136 L (137-145) mmol/L Potassium 5.2 H 5.3 H (3.6-5.0) mmol/L Chloride (98-107) mmol/L BUN 76 H 80 H (9-20) mg/dL Creatinine 4.2 H 4.0 H (0.8-1.5) mg/dL Glucose 158 H 164 H (75-100) mg/dL POC Glucose 169 H (70-105) Calcium 8.1 L (8.4-10.2) mg/dL NT-Pro-B Natriuret Pep (0-900) pg/mL 08/23/18 08/24/18 08/24/18 Range/Units 23:42 05:16 05:21 POC ABG pH 7.243 L (7.35-7.45) POC ABG pCO2 56.8 H (35-45) POC ABG pO2 (80-105) Sodium 136 L (137-145) mmol/L Potassium 5.2 H (3.6-5.0) mmol/L Chloride 97.9 L (98-107) mmol/L BUN 86 H (9-20) mg/dL Creatinine 4.3 H (0.8-1.5) mg/dL Glucose 202 H (75-100) mg/dL POC Glucose 183 H (70-105) Calcium 7.9 L (8.4-10.2) mg/dL NT-Pro-B Natriuret Pep (0-900) pg/mL 08/24/18 Range/Units 05:29 POC ABG pH (7.35-7.45) POC ABG pCO2 (35-45) POC ABG pO2 (80-105) Sodium (137-145) mmol/L Potassium (3.6-5.0) mmol/L Chloride (98-107) mmol/L BUN (9-20) mg/dL Creatinine (0.8-1.5) mg/dL Glucose (75-100) mg/dL POC Glucose 209 H (70-105) Calcium (8.4-10.2) mg/dL NT-Pro-B Natriuret Pep (0-900) pg/mL
--- NOTE | 2018-08-24 08:15 | Ultrasound Report ---
ULTRASOUND RENAL BILATERAL HISTORY: Acute kidney injury. TECHNIQUE: transabdominal ultrasound with color Doppler interrogation. FINDINGS: The right kidney measures 8.6 x 4.8 x 5.3cm. Right renal cortex: 1.2cm. The left kidney measures 9.9 x 5.7 x 6.3cm. Left renal cortex: 1.3cm. The right kidney is slightly atrophic with increased cortical echotexture. No focal right renal lesion or hydronephrosis is appreciated. Views of the left kidney are limited. The left kidney appears normal size, contour and echotexture. No focal left renal lesion or hydronephrosis. The bladder is partially empty and contains a [place] catheter. IMPRESSION: Slightly atrophic right kidney. Unremarkable left kidney.
[2018-08-24] MEDS ORDERED: KIONEX PO ONE (09:00)
--- NOTE | 2018-08-24 09:43 | Progress Note ---
Assessment and Plan - Patient Problems (1) Acute on chronic respiratory failure Current Visit: Yes Status: Acute Plan to address problem: Acute on chronic respiratory failure Currently intubated chest x-ray with consent for edema versus infiltrate Remains intubated Wean oxygen as tolerated (2) Acute renal failure Current Visit: Yes Status: Acute Plan to address problem: Acute renal failure worsening Has baseline history of chronic kidney disease stage III Admission creatinine is 4.3, current creatinine 3.9 Current creatinine 4.3 mg/DL Currently has volume overload also with hyperkalemia Chest x-ray with slight improvement in edema I reviewed renal ultrasound with small right kidney and normal sized left kidney etiology of KHRIS is likely volume overload with tubular injury in the setting of sepsis and cardiac arrest , also with atrophic right kidney. Will give one dose of Lasix today Hold Diuril for now. Discussed with daughter , may need RN ENDOSCOPY if renal function does not improve in the next 24hrs Repeat BMP at 3pm. Daughter will [facility] to [facility] Avoid nephrotoxic medications (3) Hyperkalemia Current Visit: Yes Status: Acute Plan to address problem: Hyperkalemia worsening Recent cardiac arrest Received insulin and dextrose received calcium gluconate repeat 30 g Kayexalate We'll also give diuretics (4) Lactic acidosis Current Visit: Yes Status: Acute (5) Cardiac arrest Current Visit: Yes Status: Acute Plan to address problem: Cardiac arrest Query secondary to cardiogenic causes Status post intubation Remains intubated orally on broad-spectrum antibiotics Cardiology on board (6) Bacteremia due to coagulase-negative Staphylococcus Current Visit: Yes Status: Acute Plan to address problem: Tracheal culture with staph aureus also blood cultures growing same Continue broad-spectrum antibiotics Subjective Principal diagnosis: cardiac arrest Interval history: 73-year-old gentleman with medical history significant for hypertension, congestive heart failure, diabetes mellitus type 2, chronic kidney disease stage III admitted with complaints of shortness of breath for the past few days is on home oxygen 2 L nasal cannula prior to the arrival in the hospital developed pulseless electrical activity and code was called. Patient was seen today remains intubated FiO2 35% still has significant edema He is signficantly agitated today , chewing on his tube and grimacing Discussed with Nursing staff Ensure pain control off sedation , plan for breathing trial Urine output is fair however this is despite signficant diuretics. Daughter at bedside, Discussed plan of care in detail with her and possible need for dialysis in the next 24hrs if hyperkalemia worsens or urine output declines . She reports he had CKD stage III in the past but will [facility] to get [facility]. Objective - Vital Signs Vital signs: Vital Signs - 12hr 08/23/18 08/23/18 08/24/18 22:01 23:01 00:00 Temperature 98.9 F Pulse Rate 66 66 68 Pulse Rate [ Anterior Bilateral Throughout] Pulse Rate [ 67 From Monitor] Respiratory 18 18 18 Rate Respiratory Rate [Anterior Bilateral Throughout] Blood Pressure 121/51 121/51 O2 Sat by Pulse 99 98 99 Oximetry 08/24/18 08/24/18 08/24/18 00:01 00:25 01:01 Temperature Pulse Rate 66 67 66 Pulse Rate [ Anterior Bilateral Throughout] Pulse Rate [ From Monitor] Respiratory 19 19 Rate Respiratory Rate [Anterior Bilateral Throughout] Blood Pressure 121/51 121/51 121/51 O2 Sat by Pulse 98 98 98 Oximetry 08/24/18 08/24/18 08/24/18 02:00 03:01 04:00 Temperature 99.1 F Pulse Rate 71 70 67 Pulse Rate [ Anterior Bilateral Throughout] Pulse Rate [ 67 From Monitor] Respiratory 18 18 19 Rate Respiratory Rate [Anterior Bilateral Throughout] Blood Pressure 121/51 121/51 121/51 O2 Sat by Pulse 96 94 98 Oximetry 08/24/18 08/24/18 08/24/18 04:50 05:00 06:00 Temperature 99.6 F Pulse Rate 79 79 72 Pulse Rate [ Anterior Bilateral Throughout] Pulse Rate [ From Monitor] Respiratory 14 13 Rate Respiratory Rate [Anterior Bilateral Throughout] Blood Pressure 121/51 121/51 121/51 O2 Sat by Pulse 98 98 98 Oximetry 08/24/18 08/24/18 08/24/18 07:01 07:59 08:00 Temperature 97.3 F L Pulse Rate 70 70 Pulse Rate [ 76 Anterior Bilateral Throughout] Pulse Rate [ 78 From Monitor] Respiratory 21 23 Rate Respiratory 20 Rate [Anterior Bilateral Throughout] Blood Pressure 121/51 136/60 O2 Sat by Pulse 100 99 Oximetry 08/24/18 08/24/18 08:01 08:10 Temperature Pulse Rate Pulse Rate [ 72 Anterior Bilateral Throughout] Pulse Rate [ From Monitor] Respiratory 23 Rate Respiratory 20 Rate [Anterior Bilateral Throughout] Blood Pressure 121/51 O2 Sat by Pulse 100 Oximetry - General Appearance General appearance: well-developed, well-nourished, anxious EENT: ATNC, PERRL, mucous membranes moist Neck: other (neck difficult to assess intubated. ) Respiratory: Present: Rales, Ronchi Cardiology: regular, S1S2 Gastrointestinal: normal, normoactive bowel sounds Integumentary: no rash Neurologic: no focal deficit, confused Musculoskeletal: deferred Psychiatric: mood/affect appropriate, agitated - Lab 08/23/18 04:52 08/24/18 05:16 Most recent lab results Calcium 7.9 mg/dL (8.4-10.2) L 08/24/18 05:16 Magnesium 2.30 mg/dL (1.7-2.3) 08/23/18 14:24 - Imaging Chest x-ray: image reviewed (I reviewed Chest X ray with bibasal opacities and cephalization, edema and pneumonia. ) Medications & Allergies - Medications Allergies/Adverse Reactions: Allergies Penicillins Allergy (Verified 08/21/18 04:49) Unknown -cillins Allergy (Uncoded 08/21/18 04:49) Unknown Home Medications: Home Medications Medication Instructions Recorded Confirmed Last Taken Type AtorvaSTATin [Lipitor] 10 mg PO QHS 08/21/18 08/21/18 Unknown History Ferrous Sulfate [Feosol] 325 mg PO QDAY 08/21/18 08/21/18 Unknown History Melatonin [Melatonin 10MG CAP] 10 mg PO DAILY 08/21/18 08/21/18 Unknown History NIFEdipine [Nifedipine ER] 60 mg PO BID 08/21/18 08/21/18 Unknown History Sennosides Tab [Senokot] 1 tab PO HS 08/21/18 08/21/18 Unknown History Tamsulosin [Flomax] 2 cap PO HS 08/21/18 08/21/18 Unknown History Torsemide [Demadex] 20 mg PO DAILY 08/21/18 08/21/18 Unknown History Venlafaxine HCl [Venlafaxin ER] 75 mg PO QDAY 08/21/18 08/21/18 Unknown History buPROPion [Wellbutrin] 100 mg PO DAILY 08/21/18 08/21/18 Unknown History Active Medications: Generic Name Dose Route Start Last Admin Trade Name Freq PRN Reason Stop Dose Admin Acetaminophen 650 mg 08/21/18 06:31 Tylenol PO Q4H PRN Pain MILD(1-3)/Fever >100.5/COOK Acetaminophen 650 mg 08/21/18 06:31 Tylenol CO Q4H PRN Pain MILD(1-3)/Fever >100.5/COOK Albuterol/Ipratropium 1 ampul 08/23/18 14:00 08/24/18 07:59 Duoneb *Not For Prn Use* IH 1 ampul Q6HRT LUIS Administration Lipase/Protease/Amylase 1 each 08/22/18 09:25 Pancreaze 10,500 Unit FEEDTUBE PRN PRN For Clogged Feeding Tube Dextrose 50 ml 08/21/18 06:48 D50w (25gm) Syringe IV PRN PRN Hypoglycemia Famotidine 20 mg 08/22/18 10:00 08/23/18 10:10 Pepcid IV 20 mg DAILY LUIS Administration Fentanyl 50 mcg 08/21/18 11:34 08/21/18 18:50 Sublimaze IV 50 mcg Q10MIN PRN Administration ANALGESIA Furosemide 60 mg 08/24/18 09:37 Lasix IV 08/24/18 09:38 ONCE ONE Heparin Sodium (Porcine) 5,000 unit 08/22/18 10:00 08/23/18 22:17 Heparin SUB-Q 5,000 unit Q12HR LUIS Administration Hydrophilic Ointment 1 applic 08/21/18 11:34 Vaseline Lip Therapy TP Q2HR PRN Dry Lips Fentanyl Citrate 2,000 mcg in 100 mls @ 7.053 mls/hr 08/21/18 12:00 08/24/18 08:55 Fentanyl Drip Premix IV 1 mcg/kg/hr TITR LUIS 7.053 mls/hr Titration Protocol 1 MCG/KG/HR Midazolam HCl 100 mg/ Sodium 100 mls @ 2 mls/hr 08/21/18 15:00 08/22/18 18:00 Chloride IV 0 mg/hr TITR LUIS 0 mls/hr Titration Protocol 2 MG/HR Insulin Human Lispro 0 unit 08/21/18 12:00 08/24/18 07:09 Humalog SUB-Q 1 unit Q6HR LUIS Administration Protocol Methylprednisolone Sodium Succinate 20 mg 08/24/18 22:00 Solu-Medrol IV 08/25/18 10:01 Q12HR LUIS Methylprednisolone Sodium Succinate 20 mg 08/26/18 10:00 Solu-Medrol IV 07/02/19 10:01 Q24HR LUIS Midazolam HCl 2 mg 08/21/18 14:32 08/21/18 14:52 Versed IV 2 mg Q10MIN PRN Administration Sedation Multi-Ingred Cream/Lotion/Oil/Oint 1 applic 08/21/18 11:34 Artificial Tears Ophth Oint OU Q4HR PRN Dry Eye(s) Ondansetron HCl 4 mg 08/21/18 06:31 Zofran IV Q8H PRN Nausea And Vomiting Simple Syrup 15 ml 08/22/18 09:25 Simple Syrup FEEDTUBE PRN PRN Hypoglycemia Simple Syrup 30 ml 08/22/18 09:25 Simple Syrup FEEDTUBE PRN PRN Hypoglycemia Sodium Bicarbonate 325 mg 08/22/18 09:25 Sodium Bicarbonate FEEDTUBE PRN PRN For Clogged Feeding Tube Sodium Chloride 10 ml 08/21/18 10:00 08/23/18 10:11 Sodium Chloride Flush Syringe 10 Ml IV 10 ml BID LUIS Administration Sodium Chloride 10 ml 08/21/18 06:31 Sodium Chloride Flush Syringe 10 Ml IV PRN PRN LINE FLUSH
[2018-08-24] MEDS ORDERED: LASIX IV ONE ×3 (10:00→23:15)
[2018-08-24 10:27] LABS: Hematocrit 23.3 % (35.5-45.6); Hemoglobin 7.5 gm/dl (11.8-15.2); Mean Corpuscular HGB Conc 32 % (32-34); Mean Corpuscular Hemoglobin 31 pg (28-32); Mean Corpuscular Volume 94 fl (84-94); Platelet Count 118 K/mm3 (140-440); Red Blood Count 2.47 M/mm3 (3.65-5.03); Red Cell Distribution Width 17.5 % (13.2-15.2)
[2018-08-24] MEDS: PEPCID IV SCH (10:44)
[2018-08-24] MEDS: HEPARIN SUB-Q SCH ×2 (10:44→22:45)
[2018-08-24] MEDS: SODIUM CHLORIDE FLUSH SYRINGE 10 ML IV SCH (10:45)
--- NOTE | 2018-08-24 11:05 | Progress Note ---
Assessment and Plan s/p Cardiopulmonary arrest with ROSC Acute on chronic hypoxemic respiratory failure on MVS Lactic acidosis Acute metabolic/respiratory acidosis Acute on chronic renal failure (multifactorial) Sepsis probably secondary to aspiration PNA AE-COPD Acute metabolic-toxic encephalopathy Morbid obesity NSTEMI- probably type 2 ischemia Type 2 DM h/o Liver disease h/o Colon CA Hyperkalemia LEFT TMJ JOINT DISLOCATION-POA - get VTE evaluation with dopplers and D-dimers - add brovana and pulmicort for severe COPD history / exacerbation (reduced JENELLE frequency) - decent urine output and good clear yellow color; continue diuresis per nephrology rec's - [employer] if fails diuretics - failed SBT and minute ventilation increased - continue daily SATs and SBTs - get EEG - get neurology evaluation - Will need maxillo facial surgery for evaluation of TMJ dislocation - Discontinued the femoral CVC and placed midline prior - Enteric nutrition with aspiration precautions...HOB >40 (begin reglan re: high residuals) - Lung protective strategies - Serial CXR and ABG (adjust minute ventilation for better gas exchange) - VAP bundle addressed - continue supplemental oxygen to keep O2 sats 88-90% - continue restrictive oxygen therapy - continue bronchodilators with pulmonry hygiene per RT - continue systemic steroids with slow taper - continue accuchecks with glycemic control per SSI for target blood glucose <180mg/dL - Agitation management - Titrate sedation to RASS 0 to -1 - Prevention of delirium, maintenance of sleep-wake cycle - Antibiotics per ID (currently on levofloxacin and vancomycin) - MSSA pneumonia and opal stopp contact precautions - Avoid nephrotoxic agents, adjust all antibiotics and medications for CrCL and GFR - VTE and Stress ulcer prophylaxis( Heparin/Famotidine) - Madison catheter in this critically ill patient with acute on chronic renal failure, requiring strict intake and output monitoring (Will assess daily, the need for ongoing Madison catheter) - continue other care per attending / other consultants .... care plan discussed at length with his in room Discussed with ID service Discussed in ICU-IDT rounds CONDITION: CRITICAL PROGNOSIS: GUARDED CODE STATUS: FULL CODE The high probability of a clinically significant, sudden or life-threatening deterioration of the [respiratory, cardiovascular, renal, gastrointestinal, neurology] system(s) required my full and direct attention, intervention and personal management. The aggregate critical care time was [40 ] minutes without overlap. Time includes spent on; [x] Data Review and interpretation [x] Patient assessment and monitoring of vital signs [x] Documentation [x] Medication orders and management Subjective Date of service: 08/24/18 Principal diagnosis: cardiac arrest Interval history: Patient is seen today for: cardiopulmonary arrest; severe sepsis; acute hypoxemic-hypercapnic respiratory failure on MVS; edgar on ckd Seen and examined at bedside; 24hour events reviewed; nursing and respiratory care staff consulted; no adverse overnight events reported to me; resting peacefully in bed; no sedation; jerks and tremors to slight sternal rub; no overt seizures; residuals in high 300's; and daughter in room Objective Vital Signs - 12hr 08/24/18 08/24/18 08/24/18 00:00 00:01 00:25 Temperature 98.9 F Pulse Rate 68 66 67 Pulse Rate [ Anterior Bilateral Throughout] Pulse Rate [ 67 From Monitor] Respiratory 18 19 Rate Respiratory Rate [Anterior Bilateral Throughout] Blood Pressure 121/51 121/51 O2 Sat by Pulse 99 98 98 Oximetry 08/24/18 08/24/18 08/24/18 01:01 02:00 03:01 Temperature Pulse Rate 66 71 70 Pulse Rate [ Anterior Bilateral Throughout] Pulse Rate [ From Monitor] Respiratory 19 18 18 Rate Respiratory Rate [Anterior Bilateral Throughout] Blood Pressure 121/51 121/51 121/51 O2 Sat by Pulse 98 96 94 Oximetry 08/24/18 08/24/18 08/24/18 04:00 04:50 05:00 Temperature 99.1 F Pulse Rate 67 79 79 Pulse Rate [ Anterior Bilateral Throughout] Pulse Rate [ 67 From Monitor] Respiratory 19 14 Rate Respiratory Rate [Anterior Bilateral Throughout] Blood Pressure 121/51 121/51 121/51 O2 Sat by Pulse 98 98 98 Oximetry 08/24/18 08/24/18 08/24/18 06:00 07:01 07:59 Temperature 99.6 F Pulse Rate 72 70 Pulse Rate [ 76 Anterior Bilateral Throughout] Pulse Rate [ From Monitor] Respiratory 13 21 Rate Respiratory 20 Rate [Anterior Bilateral Throughout] Blood Pressure 121/51 121/51 O2 Sat by Pulse 98 100 Oximetry 08/24/18 08/24/18 08/24/18 08:00 08:01 08:10 Temperature 97.3 F L Pulse Rate 70 Pulse Rate [ 72 Anterior Bilateral Throughout] Pulse Rate [ 78 From Monitor] Respiratory 23 23 Rate Respiratory 20 Rate [Anterior Bilateral Throughout] Blood Pressure 136/60 121/51 O2 Sat by Pulse 99 100 Oximetry Constitutional: lethargic, appears uncomfortable, other (morbidly obese, orally intubated, 7.5ETT at 24cm at the lip, no dys-synchrony) Eyes: non-icteric ENT: oropharynx moist, other (orally intubated, ETT 8, 24cm at the lip, OGT in place) Neck: supple, no JVD, other (short neck) Effort: mildly labored Ascultation: Bilateral: diminished breath sounds, rhonchi (coarse BS bilaterally) Percussion: Bilateral: not dull Cardiovascular: regular rate and rhythm, other (S1,S2, no murmurs, no gallops or rubs) Gastrointestinal: normoactive bowel sounds, soft, non-tender, non-distended, other (Madison catheter in place, minimal urine tea colored) Integumentary: normal Extremities: no cyanosis, no edema, pink and warm, pulses normal, no ischemia or petechiae Neurologic: non-focal exam (grossly), pupils equal and round, unable to assess Psychiatric: other (intubated, on fentanyl) CBC and BMP: 08/24/18 10:10 08/24/18 05:16 ABG, PT/INR, D-dimer: ABG POC ABG pH 7.243 (7.35-7.45) L 08/24/18 05:21 POC ABG pCO2 56.8 (35-45) H 08/24/18 05:21 POC ABG pO2 102 (80-105) 08/24/18 05:21 POC ABG HCO3 24.5 (22-26 mml/L) 08/24/18 05:21 POC ABG Total CO2 26 (23-27mmol/L) 08/24/18 05:21 POC ABG O2 Sat 96 08/24/18 05:21 PT/INR, D-dimer PT 20.1 Sec. (12.2-14.9) H 08/21/18 04:42 INR 1.76 (0.87-1.13) H 08/21/18 04:42 Abnormal lab findings: Abnormal Labs 08/21/18 08/21/18 08/21/18 04:42 04:42 04:42 WBC 19.1 H RBC 2.49 L Hgb 7.7 L Hct 24.5 L MCV 98 H RDW 17.7 H Plt Count Seg Neuts % (Manual) 84.0 H Lymphocytes % (Manual) 7.0 L Monocytes % (Manual) 9.0 H Nucleated RBC % Seg Neutrophils # Man 16.0 H Lymphocytes # (Manual) Monocytes # (Manual) 1.7 H PT 20.1 H INR 1.76 H POC ABG pH POC ABG pCO2 POC ABG pO2 Sodium Potassium Chloride Carbon Dioxide BUN Creatinine Glucose POC Glucose Lactic Acid Calcium Total Bilirubin AST ALT Total Creatine Kinase CK-MB (CK-2) CK-MB (CK-2) Rel Index Troponin T 0.032 H C-Reactive Protein NT-Pro-B Natriuret Pep Albumin LDL Cholesterol Direct 44 L Urine WBC (Auto) 08/21/18 08/21/18 08/21/18 04:42 04:42 04:42 WBC RBC Hgb Hct MCV RDW Plt Count Seg Neuts % (Manual) Lymphocytes % (Manual) Monocytes % (Manual) Nucleated RBC % Seg Neutrophils # Man Lymphocytes # (Manual) Monocytes # (Manual) PT INR POC ABG pH POC ABG pCO2 POC ABG pO2 Sodium Potassium 6.0 H Chloride Carbon Dioxide 15 L BUN 57 H Creatinine 4.3 H Glucose 111 H POC Glucose Lactic Acid 5.80 H* Calcium Total Bilirubin 1.80 H AST 212 H ALT 94 H Total Creatine Kinase CK-MB (CK-2) CK-MB (CK-2) Rel Index Troponin T C-Reactive Protein NT-Pro-B Natriuret Pep 52938 H Albumin 3.2 L LDL Cholesterol Direct Urine WBC (Auto) 08/21/18 08/21/18 08/21/18 05:08 05:58 05:58 WBC RBC Hgb Hct MCV RDW Plt Count Seg Neuts % (Manual) Lymphocytes % (Manual) Monocytes % (Manual) Nucleated RBC % Seg Neutrophils # Man Lymphocytes # (Manual) Monocytes # (Manual) PT INR POC ABG pH 7.164 L POC ABG pCO2 46.3 H POC ABG pO2 229 H Sodium Potassium Chloride Carbon Dioxide BUN Creatinine Glucose POC Glucose Lactic Acid 5.10 H* Calcium Total Bilirubin AST ALT Total Creatine Kinase CK-MB (CK-2) CK-MB (CK-2) Rel Index Troponin T 0.035 H C-Reactive Protein NT-Pro-B Natriuret Pep Albumin LDL Cholesterol Direct Urine WBC (Auto) 08/21/18 08/21/18 08/21/18 06:45 06:45 06:53 WBC RBC Hgb Hct MCV RDW Plt Count Seg Neuts % (Manual) Lymphocytes % (Manual) Monocytes % (Manual) Nucleated RBC % Seg Neutrophils # Man Lymphocytes # (Manual) Monocytes # (Manual) PT INR POC ABG pH 7.160 L POC ABG pCO2 46.8 H POC ABG pO2 Sodium Potassium Chloride Carbon Dioxide BUN Creatinine Glucose POC Glucose Lactic Acid 4.70 H* Calcium Total Bilirubin AST ALT Total Creatine Kinase 234 H CK-MB (CK-2) 9.1 H CK-MB (CK-2) Rel Index Troponin T 0.032 H C-Reactive Protein NT-Pro-B Natriuret Pep Albumin LDL Cholesterol Direct Urine WBC (Auto) 08/21/18 08/21/18 08/21/18 10:43 10:43 10:45 WBC RBC Hgb Hct MCV RDW Plt Count Seg Neuts % (Manual) Lymphocytes % (Manual) Monocytes % (Manual) Nucleated RBC % Seg Neutrophils # Man Lymphocytes # (Manual) Monocytes # (Manual) PT INR POC ABG pH POC ABG pCO2 POC ABG pO2 Sodium Potassium Chloride Carbon Dioxide 17 L BUN 59 H Creatinine 4.2 H Glucose POC Glucose Lactic Acid 3.70 H* Calcium Total Bilirubin AST ALT Total Creatine Kinase 222 H CK-MB (CK-2) 9.2 H CK-MB (CK-2) Rel Index 4.1 H Troponin T 0.044 H D C-Reactive Protein NT-Pro-B Natriuret Pep Albumin LDL Cholesterol Direct Urine WBC (Auto) 08/21/18 08/21/18 08/21/18 11:38 12:33 15:03 WBC RBC Hgb Hct MCV RDW Plt Count Seg Neuts % (Manual) Lymphocytes % (Manual) Monocytes % (Manual) Nucleated RBC % Seg Neutrophils # Man Lymphocytes # (Manual) Monocytes # (Manual) PT INR POC ABG pH 7.250 L POC ABG pCO2 POC ABG pO2 121 H Sodium Potassium Chloride Carbon Dioxide BUN Creatinine Glucose POC Glucose 129 H Lactic Acid Calcium Total Bilirubin AST ALT Total Creatine Kinase CK-MB (CK-2) CK-MB (CK-2) Rel Index Troponin T C-Reactive Protein NT-Pro-B Natriuret Pep Albumin LDL Cholesterol Direct Urine WBC (Auto) 13.0 H 08/21/18 08/22/18 08/22/18 15:47 00:01 04:27 WBC RBC Hgb Hct MCV RDW Plt Count Seg Neuts % (Manual) Lymphocytes % (Manual) Monocytes % (Manual) Nucleated RBC % Seg Neutrophils # Man Lymphocytes # (Manual) Monocytes # (Manual) PT INR POC ABG pH 7.457 H POC ABG pCO2 POC ABG pO2 117 H Sodium Potassium Chloride Carbon Dioxide BUN Creatinine Glucose POC Glucose 211 H Lactic Acid 2.70 H* Calcium Total Bilirubin AST ALT Total Creatine Kinase CK-MB (CK-2) CK-MB (CK-2) Rel Index Troponin T C-Reactive Protein NT-Pro-B Natriuret Pep Albumin LDL Cholesterol Direct Urine WBC (Auto) 08/22/18 08/22/18 08/22/18 05:46 06:10 06:10 WBC RBC 2.27 L Hgb 7.0 L Hct 21.2 L MCV RDW 16.8 H Plt Count 129 L Seg Neuts % (Manual) 95.0 H Lymphocytes % (Manual) 1.0 L Monocytes % (Manual) Nucleated RBC % 1.0 H Seg Neutrophils # Man 7.8 H Lymphocytes # (Manual) 0.1 L Monocytes # (Manual) PT INR POC ABG pH POC ABG pCO2 POC ABG pO2 Sodium Potassium Chloride Carbon Dioxide 20 L BUN 63 H Creatinine 3.9 H Glucose 205 H POC Glucose 223 H Lactic Acid Calcium Total Bilirubin AST ALT Total Creatine Kinase CK-MB (CK-2) CK-MB (CK-2) Rel Index Troponin T C-Reactive Protein NT-Pro-B Natriuret Pep Albumin LDL Cholesterol Direct Urine WBC (Auto) 08/22/18 08/22/18 08/22/18 06:10 12:57 16:21 WBC RBC Hgb Hct MCV RDW Plt Count Seg Neuts % (Manual) Lymphocytes % (Manual) Monocytes % (Manual) Nucleated RBC % Seg Neutrophils # Man Lymphocytes # (Manual) Monocytes # (Manual) PT INR POC ABG pH 7.477 H POC ABG pCO2 POC ABG pO2 Sodium Potassium Chloride Carbon Dioxide BUN Creatinine Glucose POC Glucose 166 H Lactic Acid Calcium Total Bilirubin AST ALT Total Creatine Kinase CK-MB (CK-2) CK-MB (CK-2) Rel Index Troponin T C-Reactive Protein 23.60 H NT-Pro-B Natriuret Pep Albumin LDL Cholesterol Direct Urine WBC (Auto) 08/22/18 08/22/18 08/23/18 17:41 23:42 04:38 WBC RBC Hgb Hct MCV RDW Plt Count Seg Neuts % (Manual) Lymphocytes % (Manual) Monocytes % (Manual) Nucleated RBC % Seg Neutrophils # Man Lymphocytes # (Manual) Monocytes # (Manual) PT INR POC ABG pH 7.249 L POC ABG pCO2 53.5 H POC ABG pO2 73 L Sodium Potassium Chloride Carbon Dioxide BUN Creatinine Glucose POC Glucose 131 H 168 H Lactic Acid Calcium Total Bilirubin AST ALT Total Creatine Kinase CK-MB (CK-2) CK-MB (CK-2) Rel Index Troponin T C-Reactive Protein NT-Pro-B Natriuret Pep Albumin LDL Cholesterol Direct Urine WBC (Auto) 08/23/18 08/23/18 08/23/18 04:52 04:52 04:52 WBC RBC 2.39 L Hgb 7.5 L Hct 22.8 L MCV 95 H RDW 17.6 H Plt Count Seg Neuts % (Manual) Lymphocytes % (Manual) Monocytes % (Manual) Nucleated RBC % Seg Neutrophils # Man Lymphocytes # (Manual) Monocytes # (Manual) PT INR POC ABG pH POC ABG pCO2 POC ABG pO2 Sodium Potassium 5.6 H 5.6 H Chloride Carbon Dioxide 21 L BUN 71 H 72 H Creatinine 4.1 H 4.0 H Glucose 141 H 140 H POC Glucose Lactic Acid Calcium 8.3 L 8.2 L Total Bilirubin AST 247 H ALT 220 H Total Creatine Kinase CK-MB (CK-2) CK-MB (CK-2) Rel Index Troponin T C-Reactive Protein NT-Pro-B Natriuret Pep Albumin 2.8 L LDL Cholesterol Direct Urine WBC (Auto) 08/23/18 08/23/18 08/23/18 05:50 08:38 12:21 WBC RBC Hgb Hct MCV RDW Plt Count Seg Neuts % (Manual) Lymphocytes % (Manual) Monocytes % (Manual) Nucleated RBC % Seg Neutrophils # Man Lymphocytes # (Manual) Monocytes # (Manual) PT INR POC ABG pH POC ABG pCO2 POC ABG pO2 Sodium Potassium Chloride Carbon Dioxide BUN Creatinine Glucose POC Glucose 160 H 177 H Lactic Acid Calcium Total Bilirubin AST ALT Total Creatine Kinase CK-MB (CK-2) CK-MB (CK-2) Rel Index Troponin T C-Reactive Protein NT-Pro-B Natriuret Pep 62398 H Albumin LDL Cholesterol Direct Urine WBC (Auto) 08/23/18 08/23/18 08/23/18 12:36 14:24 18:05 WBC RBC Hgb Hct MCV RDW Plt Count Seg Neuts % (Manual) Lymphocytes % (Manual) Monocytes % (Manual) Nucleated RBC % Seg Neutrophils # Man Lymphocytes # (Manual) Monocytes # (Manual) PT INR POC ABG pH 7.337 L POC ABG pCO2 POC ABG pO2 145 H Sodium 136 L Potassium 5.2 H Chloride Carbon Dioxide BUN 76 H Creatinine 4.2 H Glucose 158 H POC Glucose 169 H Lactic Acid Calcium 8.1 L Total Bilirubin AST ALT Total Creatine Kinase CK-MB (CK-2) CK-MB (CK-2) Rel Index Troponin T C-Reactive Protein NT-Pro-B Natriuret Pep Albumin LDL Cholesterol Direct Urine WBC (Auto) 08/23/18 08/23/18 08/24/18 22:43 23:42 05:16 WBC RBC Hgb Hct MCV RDW Plt Count Seg Neuts % (Manual) Lymphocytes % (Manual) Monocytes % (Manual) Nucleated RBC % Seg Neutrophils # Man Lymphocytes # (Manual) Monocytes # (Manual) PT INR POC ABG pH POC ABG pCO2 POC ABG pO2 Sodium 136 L Potassium 5.3 H 5.2 H Chloride 97.9 L Carbon Dioxide BUN 80 H 86 H Creatinine 4.0 H 4.3 H Glucose 164 H 202 H POC Glucose 183 H Lactic Acid Calcium 7.9 L Total Bilirubin AST ALT Total Creatine Kinase CK-MB (CK-2) CK-MB (CK-2) Rel Index Troponin T C-Reactive Protein NT-Pro-B Natriuret Pep Albumin LDL Cholesterol Direct Urine WBC (Auto) 08/24/18 08/24/18 08/24/18 05:21 05:29 10:10 WBC RBC 2.47 L Hgb 7.5 L Hct 23.3 L MCV RDW 17.5 H Plt Count 118 L Seg Neuts % (Manual) Lymphocytes % (Manual) Monocytes % (Manual) Nucleated RBC % Seg Neutrophils # Man Lymphocytes # (Manual) Monocytes # (Manual) PT INR POC ABG pH 7.243 L POC ABG pCO2 56.8 H POC ABG pO2 Sodium Potassium Chloride Carbon Dioxide BUN Creatinine Glucose POC Glucose 209 H Lactic Acid Calcium Total Bilirubin AST ALT Total Creatine Kinase CK-MB (CK-2) CK-MB (CK-2) Rel Index Troponin T C-Reactive Protein NT-Pro-B Natriuret Pep Albumin LDL Cholesterol Direct Urine WBC (Auto) Chest x-ray: image reviewed (cardiomegaly; mild interstitial edema) Allied health notes reviewed: RT
[2018-08-24 11:39] LABS: Basophils % (Manual) 0 % (0.0-1.8); Eosinophils % (Manual) 0 % (0.0-4.3); Total Cells Counted 100
[2018-08-24 11:40] LABS: Anisocytosis 1+; Platelet Estimate Consistent w Auto
--- NOTE | 2018-08-24 13:36 | Progress Note ---
Assessment and Plan Cont supportive management. The patient has been seen in conjunction with Dr. Jay who agrees with the assessment and plan of care. - Patient Problems (1) Cardiac arrest Current Visit: Yes Status: Acute (2) Acute HFrEF (heart failure with reduced ejection fraction) Current Visit: Yes Status: Acute (3) Cardiomyopathy Current Visit: Yes Status: Acute (4) Acute on chronic respiratory failure Current Visit: Yes Status: Acute (5) Acute renal failure Current Visit: Yes Status: Acute (6) Hyperkalemia Current Visit: Yes Status: Acute (7) Lactic acidosis Current Visit: Yes Status: Acute (8) Pneumonia Current Visit: Yes Status: Acute (9) Sepsis Current Visit: Yes Status: Suspected (10) Anemia Current Visit: Yes Status: Acute (11) GI bleed Current Visit: Yes Status: Suspected (12) Elevated liver enzymes Current Visit: Yes Status: Acute (13) Elevated troponin Current Visit: Yes Status: Acute (14) Altered mental status Current Visit: Yes Status: Acute Subjective Date of service: 08/24/18 Principal diagnosis: cardiac arrest Interval history: pt remains intubated, sedated. daughter at bedside. Objective Last Vital Signs Temp 98.3 F 08/24/18 11:48 Pulse 81 08/24/18 11:07 Resp 20 08/24/18 08:10 BP 134/63 08/24/18 11:07 Pulse Ox 96 08/24/18 11:07 - Physical Examination General: Other (intubated, sedated) Neck: Positive: neck supple Cardiac: Positive: Reg Rate and Rhythm, S1/S2 Neuro: Positive: Other (intubated, sedated) Skin: Negative: Rash Extremities: Absent: edema - Labs and Meds CBC 08/24/18 Range/Units 10:10 WBC 9.6 (4.5-11.0) K/mm3 RBC 2.47 L (3.65-5.03) M/mm3 Hgb 7.5 L (11.8-15.2) gm/dl Hct 23.3 L (35.5-45.6) % Plt Count 118 L (140-440) K/mm3 Comprehensive Metabolic Panel 08/23/18 08/23/18 08/24/18 Range/Units 14:24 22:43 05:16 Sodium 136 L 138 136 L (137-145) mmol/L Potassium 5.2 H 5.3 H 5.2 H (3.6-5.0) mmol/L Chloride 99.9 99.5 97.9 L (98-107) mmol/L Carbon Dioxide 23 22 23 (22-30) mmol/L BUN 76 H 80 H 86 H (9-20) mg/dL Creatinine 4.2 H 4.0 H 4.3 H (0.8-1.5) mg/dL Glucose 158 H 164 H 202 H (75-100) mg/dL Calcium 8.1 L 8.4 7.9 L (8.4-10.2) mg/dL - Imaging and Cardiology EKG: report reviewed, image reviewed Echo: report reviewed ( EF 40-45%, LV mod dilated, pseudonormalization, RV severely dilated, RA mod dilated, mod TR, RVSP 47mmHg. ) - EKG Sinus rhythms and dysrhythmias: sinus rhythm AV and intraventricular conduction: right bundle branch block - Allied health notes Allied health notes reviewed: RT
[2018-08-24] MEDS ORDERED: KEPPRA IV ONE (16:00)
[2018-08-24] MEDS ORDERED: D5W IV ONE (16:00)
--- NOTE | 2018-08-24 16:52 | Consultation ---
History of Present Illness Consult date: 08/24/18 Requesting physician: SAM BASSETT Reason for Consult: cardiac arrest, encephalopathy, jerks Chief complaint: cardiac arrest, encephalopathy, jerks History of present illness: This 73-year-old right-handed white male according to his has been falling for least of months. One fall dislocated his left TMJ but this is not been treated. Three days ago at 4 in the morning he had trouble breathing despite oxygen and was hallucinating and pulling his oxygen mask off. She called EMS at which point he had a cardiac or respiratory or both arrest. They attempted to intubate him. Notes from the chart indicate he was in [facility]. He was taken to this Hospital where he had several rounds of epinephrine. Some jerking of limbs yhas been noted since intubation. His mentions that he has had jerking in the past when his oxygen has been low. She states he was in the hospital at the [facility] for a week last month and was discharged July 20. Hospitalization was due to hyperkalemia to which the falls were attributed with retention of CO2 and inadequate oxygenation. CT scan shows minimal cerebellar but moderate cerebral atrophy and some white matter disease but no acute changes. History obtained from his and his daughter. 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 He was a heavy drinker until he stopped 20 years ago. Never illicit drugs. 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 Disabled due to [place] causing neuropathy and diabetes. , 1 child alive and well. Family history: Daughter has neuropathy but no diabetes and also has restless limb syndrome (arms and legs), no strokes or epilepsy, hypertension and both parents, diabetes in paternal grandmother. Review of systems: Headaches twice a month without nausea or photophonophobia. Lightheadedness associated with his falls. CPAP with 18 cm and 2 L of oxygen. Oxygen at night for over a year and for about a year as needed during the day. Some leg cramps. Occasional punching and kicking in sleep and occasional talking in sleep. Some forgetfulness. Numbness tingling and burning in hands and feet for some years.\ General appearance: Well-developed but severely obese early 70s white male, sedated, intubated with his at the bedside. HEENT: Atraumatic normocephalic, no bruits. Superficial temporal artery pulses 2+ without induration or enlargement. Cannot assess oropharynx due to intubation orally. Neck: Somewhat stiff, no bruits. Heart: Some wheezes heard, no murmur. No other extra sounds. Extremities: 2+ dorsalis pedis pulses, no clubbing or cyanosis but 1+ pretibial edema. Neurologic exam off fentanyl drip (Versed drip had been stopped earlier): Mental status: Not responding to commands in any clear way on my exam. Does not track me, does not clearly open eyes to command or voice though tends to keep them open anyway. Cranial nerves: Seems to blink to threat in all quadrants, cannot see fundi due to small pupils, PERRL, EOMs limited on Doll's eyes and dysconjugate gaze and does not track me, corneals are present, slight grimace bilaterally mainly of forehead with supraorbital or TMJ pressure. Cannot assess [place]. Has cough with tracheal suction but no gag reflex when testing with my tongue blade. Cannot do shoulder shrug or protrude tongue. Cerebellar: Cannot assess. Sensory exam: Slight withdrawal to pinprick left foot with some knee adduction. Some withdrawal of left arm to Nadira's testing. Motor exam upper extremities: Reflexive grasp on the right but not reproducible to command, sudden right thumb upwards gesture not clearly related to command, may be myoclonus. No grasp on the left. Some intermittent jerking of the hands. Brief jerk and withdrawal of right arm with nailbed pressure but more so on the left. Motor exam lower extremities: Intermittent jerking of the feet. Brief withdrawal with plantar stimulation bilaterally, slight withdrawal right foot to nailbed pressure but more so on the left foot with some knee adduction on the left. Reflexes: Jaw jerk, palmomental and snout are negative. Triceps are trace bilaterally, biceps and brachioradialis are 0 bilaterally. Nadira's is negative on the right and positive on the left, knee jerks and ankle jerks are 0 bilaterally without clonus. Toes are upgoing on the right and downgoing on the left to Babinski testing. Past History Past Medical History: other (as per HPI) Medications and Allergies Allergies Allergy/AdvReac Type Severity Reaction Status Date / Time Penicillins Allergy Unknown Verified 08/21/18 04:49 -cillins Allergy Unknown Uncoded 08/21/18 04:49 Home Medications Medication Instructions Recorded Confirmed Last Taken Type AtorvaSTATin [Lipitor] 10 mg PO QHS 08/21/18 08/21/18 Unknown History Ferrous Sulfate [Feosol] 325 mg PO QDAY 08/21/18 08/21/18 Unknown History Melatonin [Melatonin 10MG CAP] 10 mg PO DAILY 08/21/18 08/21/18 Unknown History NIFEdipine [Nifedipine ER] 60 mg PO BID 08/21/18 08/21/18 Unknown History Sennosides Tab [Senokot] 1 tab PO HS 08/21/18 08/21/18 Unknown History Tamsulosin [Flomax] 2 cap PO HS 08/21/18 08/21/18 Unknown History Torsemide [Demadex] 20 mg PO DAILY 08/21/18 08/21/18 Unknown History Venlafaxine HCl [Venlafaxin ER] 75 mg PO QDAY 08/21/18 08/21/18 Unknown History buPROPion [Wellbutrin] 100 mg PO DAILY 08/21/18 08/21/18 Unknown History Active Meds: Active Medications Acetaminophen (Tylenol) 650 mg PO Q4H PRN PRN Reason: Pain MILD(1-3)/Fever >100.5/COOK Acetaminophen (Tylenol) 650 mg [place] Q4H PRN PRN Reason: Pain MILD(1-3)/Fever >100.5/COOK Albuterol/Ipratropium (Duoneb *Not For Prn Use*) 1 ampul IH BIDRT LUIS Lipase/Protease/Amylase ([place] 10,500 Unit) 1 each FEEDTUBE PRN PRN PRN Reason: For Clogged Feeding Tube Arformoterol Tartrate (Brovana Nebu) 15 mcg IH Q12HRT LUIS Budesonide (Pulmicort) 0.5 mg IH Q12HRT LUIS Dextrose (D50w (25gm) Syringe) 50 ml IV PRN PRN PRN Reason: Hypoglycemia Famotidine (Pepcid) 20 mg IV DAILY [facility] Last Admin: 08/24/18 10:44 Dose: 20 mg Documented by: Fentanyl (Sublimaze) 50 mcg IV Q10MIN PRN PRN Reason: ANALGESIA Last Admin: 08/21/18 18:50 Dose: 50 mcg Documented by: Furosemide (Lasix) 60 mg IV ONCE ONE Stop: 08/24/18 20:01 Heparin Sodium (Porcine) (Heparin) 5,000 unit SUB-Q Q12HR LUIS Last Admin: 08/24/18 10:44 Dose: 5,000 unit Documented by: Hydrophilic Ointment (Vaseline Lip Therapy) 1 applic TP Q2HR PRN PRN Reason: Dry Lips Fentanyl Citrate (Fentanyl Drip Premix) 2,000 mcg in 100 mls @ 7.053 mls/hr IV TITR LUIS; Protocol Last Titration: 08/24/18 10:00 Dose: 1 mcg/kg/hr, 7.053 mls/hr Documented by: Midazolam HCl 100 mg/ Sodium (Chloride) 100 mls @ 2 mls/hr IV TITR LUIS; Protocol Last Titration: 08/22/18 18:00 Dose: 0 mg/hr, 0 mls/hr Documented by: Levetiracetam 750 mg/ Dextrose 107.5 mls @ 400 mls/hr IV Q6HR LUIS Insulin Human Lispro (Humalog) 0 unit SUB-Q Q6HR LUIS; Protocol Last Admin: 08/24/18 11:38 Dose: 4 unit Documented by: Methylprednisolone Sodium Succinate (Solu-Medrol) 20 mg IV Q12HR LUIS Stop: 08/25/18 10:01 Methylprednisolone Sodium Succinate (Solu-Medrol) 20 mg IV Q24HR LUIS Stop: 08/29/18 10:01 Midazolam HCl (Versed) 2 mg IV Q10MIN PRN PRN Reason: Sedation Last Admin: 08/21/18 14:52 Dose: 2 mg Documented by: Multi-Ingred Cream/Lotion/Oil/Oint (Artificial Tears Ophth Oint) 1 applic OU Q4HR PRN PRN Reason: Dry Eye(s) Ondansetron HCl (Zofran) 4 mg IV Q8H PRN PRN Reason: Nausea And Vomiting Simple Syrup (Simple Syrup) 15 ml FEEDTUBE PRN PRN PRN Reason: Hypoglycemia Simple Syrup (Simple Syrup) 30 ml FEEDTUBE PRN PRN PRN Reason: Hypoglycemia Sodium Bicarbonate (Sodium Bicarbonate) 325 mg FEEDTUBE PRN PRN PRN Reason: For Clogged Feeding Tube Sodium Chloride (Sodium Chloride Flush Syringe 10 Ml) 10 ml IV BID LUIS Last Admin: 08/24/18 10:45 Dose: 10 ml Documented by: Sodium Chloride (Sodium Chloride Flush Syringe 10 Ml) 10 ml IV PRN PRN PRN Reason: LINE FLUSH Physical Examination - Vital Signs Vital Signs: Vital Signs Pulse Ox 84 08/21/18 03:56 Results - Laboratory Findings CBC and BMP: 08/24/18 10:10 08/24/18 14:27 Abnormal Lab Findings: Abnormal Labs 08/21/18 08/21/18 08/21/18 04:42 04:42 04:42 WBC 19.1 H RBC 2.49 L Hgb 7.7 L Hct 24.5 L MCV 98 H RDW 17.7 H Plt Count Seg Neuts % (Manual) 84.0 H Lymphocytes % (Manual) 7.0 L Monocytes % (Manual) 9.0 H Nucleated RBC % Seg Neutrophils # Man 16.0 H Lymphocytes # (Manual) Monocytes # (Manual) 1.7 H PT 20.1 H INR 1.76 H D-Dimer POC ABG pH POC ABG pCO2 POC ABG pO2 Sodium Potassium Chloride Carbon Dioxide BUN Creatinine Glucose POC Glucose Lactic Acid Calcium Total Bilirubin AST ALT Total Creatine Kinase CK-MB (CK-2) CK-MB (CK-2) Rel Index Troponin T 0.032 H C-Reactive Protein NT-Pro-B Natriuret Pep Albumin LDL Cholesterol Direct 44 L Urine WBC (Auto) 08/21/18 08/21/18 08/21/18 04:42 04:42 04:42 WBC RBC Hgb Hct MCV RDW Plt Count Seg Neuts % (Manual) Lymphocytes % (Manual) Monocytes % (Manual) Nucleated RBC % Seg Neutrophils # Man Lymphocytes # (Manual) Monocytes # (Manual) PT INR D-Dimer POC ABG pH POC ABG pCO2 POC ABG pO2 Sodium Potassium 6.0 H Chloride Carbon Dioxide 15 L BUN 57 H Creatinine 4.3 H Glucose 111 H POC Glucose Lactic Acid 5.80 H* Calcium Total Bilirubin 1.80 H AST 212 H ALT 94 H Total Creatine Kinase CK-MB (CK-2) CK-MB (CK-2) Rel Index Troponin T C-Reactive Protein NT-Pro-B Natriuret Pep 49984 H Albumin 3.2 L LDL Cholesterol Direct Urine WBC (Auto) 08/21/18 08/21/18 08/21/18 05:08 05:58 05:58 WBC RBC Hgb Hct MCV RDW Plt Count Seg Neuts % (Manual) Lymphocytes % (Manual) Monocytes % (Manual) Nucleated RBC % Seg Neutrophils # Man Lymphocytes # (Manual) Monocytes # (Manual) PT INR D-Dimer POC ABG pH 7.164 L POC ABG pCO2 46.3 H POC ABG pO2 229 H Sodium Potassium Chloride Carbon Dioxide BUN Creatinine Glucose POC Glucose Lactic Acid 5.10 H* Calcium Total Bilirubin AST ALT Total Creatine Kinase CK-MB (CK-2) CK-MB (CK-2) Rel Index Troponin T 0.035 H C-Reactive Protein NT-Pro-B Natriuret Pep Albumin LDL Cholesterol Direct Urine WBC (Auto) 08/21/18 08/21/18 08/21/18 06:45 06:45 06:53 WBC RBC Hgb Hct MCV RDW Plt Count Seg Neuts % (Manual) Lymphocytes % (Manual) Monocytes % (Manual) Nucleated RBC % Seg Neutrophils # Man Lymphocytes # (Manual) Monocytes # (Manual) PT INR D-Dimer POC ABG pH 7.160 L POC ABG pCO2 46.8 H POC ABG pO2 Sodium Potassium Chloride Carbon Dioxide BUN Creatinine Glucose POC Glucose Lactic Acid 4.70 H* Calcium Total Bilirubin AST ALT Total Creatine Kinase 234 H CK-MB (CK-2) 9.1 H CK-MB (CK-2) Rel Index Troponin T 0.032 H C-Reactive Protein NT-Pro-B Natriuret Pep Albumin LDL Cholesterol Direct Urine WBC (Auto) 08/21/18 08/21/18 08/21/18 10:43 10:43 10:45 WBC RBC Hgb Hct MCV RDW Plt Count Seg Neuts % (Manual) Lymphocytes % (Manual) Monocytes % (Manual) Nucleated RBC % Seg Neutrophils # Man Lymphocytes # (Manual) Monocytes # (Manual) PT INR D-Dimer POC ABG pH POC ABG pCO2 POC ABG pO2 Sodium Potassium Chloride Carbon Dioxide 17 L BUN 59 H Creatinine 4.2 H Glucose POC Glucose Lactic Acid 3.70 H* Calcium Total Bilirubin AST ALT Total Creatine Kinase 222 H CK-MB (CK-2) 9.2 H CK-MB (CK-2) Rel Index 4.1 H Troponin T 0.044 H D C-Reactive Protein NT-Pro-B Natriuret Pep Albumin LDL Cholesterol Direct Urine WBC (Auto) 08/21/18 08/21/18 08/21/18 11:38 12:33 15:03 WBC RBC Hgb Hct MCV RDW Plt Count Seg Neuts % (Manual) Lymphocytes % (Manual) Monocytes % (Manual) Nucleated RBC % Seg Neutrophils # Man Lymphocytes # (Manual) Monocytes # (Manual) PT INR D-Dimer POC ABG pH 7.250 L POC ABG pCO2 POC ABG pO2 121 H Sodium Potassium Chloride Carbon Dioxide BUN Creatinine Glucose POC Glucose 129 H Lactic Acid Calcium Total Bilirubin AST ALT Total Creatine Kinase CK-MB (CK-2) CK-MB (CK-2) Rel Index Troponin T C-Reactive Protein NT-Pro-B Natriuret Pep Albumin LDL Cholesterol Direct Urine WBC (Auto) 13.0 H 08/21/18 08/22/18 08/22/18 15:47 00:01 04:27 WBC RBC Hgb Hct MCV RDW Plt Count Seg Neuts % (Manual) Lymphocytes % (Manual) Monocytes % (Manual) Nucleated RBC % Seg Neutrophils # Man Lymphocytes # (Manual) Monocytes # (Manual) PT INR D-Dimer POC ABG pH 7.457 H POC ABG pCO2 POC ABG pO2 117 H Sodium Potassium Chloride Carbon Dioxide BUN Creatinine Glucose POC Glucose 211 H Lactic Acid 2.70 H* Calcium Total Bilirubin AST ALT Total Creatine Kinase CK-MB (CK-2) CK-MB (CK-2) Rel Index Troponin T C-Reactive Protein NT-Pro-B Natriuret Pep Albumin LDL Cholesterol Direct Urine WBC (Auto) 08/22/18 08/22/18 08/22/18 05:46 06:10 06:10 WBC RBC 2.27 L Hgb 7.0 L Hct 21.2 L MCV RDW 16.8 H Plt Count 129 L Seg Neuts % (Manual) 95.0 H Lymphocytes % (Manual) 1.0 L Monocytes % (Manual) Nucleated RBC % 1.0 H Seg Neutrophils # Man 7.8 H Lymphocytes # (Manual) 0.1 L Monocytes # (Manual) PT INR D-Dimer POC ABG pH POC ABG pCO2 POC ABG pO2 Sodium Potassium Chloride Carbon Dioxide 20 L BUN 63 H Creatinine 3.9 H Glucose 205 H POC Glucose 223 H Lactic Acid Calcium Total Bilirubin AST ALT Total Creatine Kinase CK-MB (CK-2) CK-MB (CK-2) Rel Index Troponin T C-Reactive Protein NT-Pro-B Natriuret Pep Albumin LDL Cholesterol Direct Urine WBC (Auto) 08/22/18 08/22/18 08/22/18 06:10 12:57 16:21 WBC RBC Hgb Hct MCV RDW Plt Count Seg Neuts % (Manual) Lymphocytes % (Manual) Monocytes % (Manual) Nucleated RBC % Seg Neutrophils # Man Lymphocytes # (Manual) Monocytes # (Manual) PT INR D-Dimer POC ABG pH 7.477 H POC ABG pCO2 POC ABG pO2 Sodium Potassium Chloride Carbon Dioxide BUN Creatinine Glucose POC Glucose 166 H Lactic Acid Calcium Total Bilirubin AST ALT Total Creatine Kinase CK-MB (CK-2) CK-MB (CK-2) Rel Index Troponin T C-Reactive Protein 23.60 H NT-Pro-B Natriuret Pep Albumin LDL Cholesterol Direct Urine WBC (Auto) 08/22/18 08/22/18 08/23/18 17:41 23:42 04:38 WBC RBC Hgb Hct MCV RDW Plt Count Seg Neuts % (Manual) Lymphocytes % (Manual) Monocytes % (Manual) Nucleated RBC % Seg Neutrophils # Man Lymphocytes # (Manual) Monocytes # (Manual) PT INR D-Dimer POC ABG pH 7.249 L POC ABG pCO2 53.5 H POC ABG pO2 73 L Sodium Potassium Chloride Carbon Dioxide BUN Creatinine Glucose POC Glucose 131 H 168 H Lactic Acid Calcium Total Bilirubin AST ALT Total Creatine Kinase CK-MB (CK-2) CK-MB (CK-2) Rel Index Troponin T C-Reactive Protein NT-Pro-B Natriuret Pep Albumin LDL Cholesterol Direct Urine WBC (Auto) 08/23/18 08/23/18 08/23/18 04:52 04:52 04:52 WBC RBC 2.39 L Hgb 7.5 L Hct 22.8 L MCV 95 H RDW 17.6 H Plt Count Seg Neuts % (Manual) Lymphocytes % (Manual) Monocytes % (Manual) Nucleated RBC % Seg Neutrophils # Man Lymphocytes # (Manual) Monocytes # (Manual) PT INR D-Dimer POC ABG pH POC ABG pCO2 POC ABG pO2 Sodium Potassium 5.6 H 5.6 H Chloride Carbon Dioxide 21 L BUN 71 H 72 H Creatinine 4.1 H 4.0 H Glucose 141 H 140 H POC Glucose Lactic Acid Calcium 8.3 L 8.2 L Total Bilirubin AST 247 H ALT 220 H Total Creatine Kinase CK-MB (CK-2) CK-MB (CK-2) Rel Index Troponin T C-Reactive Protein NT-Pro-B Natriuret Pep Albumin 2.8 L LDL Cholesterol Direct Urine WBC (Auto) 08/23/18 08/23/18 08/23/18 05:50 08:38 12:21 WBC RBC Hgb Hct MCV RDW Plt Count Seg Neuts % (Manual) Lymphocytes % (Manual) Monocytes % (Manual) Nucleated RBC % Seg Neutrophils # Man Lymphocytes # (Manual) Monocytes # (Manual) PT INR D-Dimer POC ABG pH POC ABG pCO2 POC ABG pO2 Sodium Potassium Chloride Carbon Dioxide BUN Creatinine Glucose POC Glucose 160 H 177 H Lactic Acid Calcium Total Bilirubin AST ALT Total Creatine Kinase CK-MB (CK-2) CK-MB (CK-2) Rel Index Troponin T C-Reactive Protein NT-Pro-B Natriuret Pep 77420 H Albumin LDL Cholesterol Direct Urine WBC (Auto) 08/23/18 08/23/18 08/23/18 12:36 14:24 18:05 WBC RBC Hgb Hct MCV RDW Plt Count Seg Neuts % (Manual) Lymphocytes % (Manual) Monocytes % (Manual) Nucleated RBC % Seg Neutrophils # Man Lymphocytes # (Manual) Monocytes # (Manual) PT INR D-Dimer POC ABG pH 7.337 L POC ABG pCO2 POC ABG pO2 145 H Sodium 136 L Potassium 5.2 H Chloride Carbon Dioxide BUN 76 H Creatinine 4.2 H Glucose 158 H POC Glucose 169 H Lactic Acid Calcium 8.1 L Total Bilirubin AST ALT Total Creatine Kinase CK-MB (CK-2) CK-MB (CK-2) Rel Index Troponin T C-Reactive Protein NT-Pro-B Natriuret Pep Albumin LDL Cholesterol Direct Urine WBC (Auto) 08/23/18 08/23/18 08/24/18 22:43 23:42 05:16 WBC RBC Hgb Hct MCV RDW Plt Count Seg Neuts % (Manual) Lymphocytes % (Manual) Monocytes % (Manual) Nucleated RBC % Seg Neutrophils # Man Lymphocytes # (Manual) Monocytes # (Manual) PT INR D-Dimer POC ABG pH POC ABG pCO2 POC ABG pO2 Sodium 136 L Potassium 5.3 H 5.2 H Chloride 97.9 L Carbon Dioxide BUN 80 H 86 H Creatinine 4.0 H 4.3 H Glucose 164 H 202 H POC Glucose 183 H Lactic Acid Calcium 7.9 L Total Bilirubin AST ALT Total Creatine Kinase CK-MB (CK-2) CK-MB (CK-2) Rel Index Troponin T C-Reactive Protein NT-Pro-B Natriuret Pep Albumin LDL Cholesterol Direct Urine WBC (Auto) 08/24/18 08/24/18 08/24/18 05:21 05:29 10:10 WBC RBC 2.47 L Hgb 7.5 L Hct 23.3 L MCV RDW 17.5 H Plt Count 118 L Seg Neuts % (Manual) 92.0 H Lymphocytes % (Manual) 2.0 L Monocytes % (Manual) Nucleated RBC % Seg Neutrophils # Man 8.8 H Lymphocytes # (Manual) 0.2 L Monocytes # (Manual) PT INR D-Dimer POC ABG pH 7.243 L POC ABG pCO2 56.8 H POC ABG pO2 Sodium Potassium Chloride Carbon Dioxide BUN Creatinine Glucose POC Glucose 209 H Lactic Acid Calcium Total Bilirubin AST ALT Total Creatine Kinase CK-MB (CK-2) CK-MB (CK-2) Rel Index Troponin T C-Reactive Protein NT-Pro-B Natriuret Pep Albumin LDL Cholesterol Direct Urine WBC (Auto) 08/24/18 08/24/18 08/24/18 10:10 11:19 13:41 WBC RBC Hgb Hct MCV RDW Plt Count Seg Neuts % (Manual) Lymphocytes % (Manual) Monocytes % (Manual) Nucleated RBC % Seg Neutrophils # Man Lymphocytes # (Manual) Monocytes # (Manual) PT INR D-Dimer 1978.25 H POC ABG pH POC ABG pCO2 POC ABG pO2 Sodium Potassium Chloride Carbon Dioxide BUN Creatinine Glucose POC Glucose 212 H Lactic Acid Calcium Total Bilirubin AST ALT Total Creatine Kinase CK-MB (CK-2) CK-MB (CK-2) Rel Index Troponin T C-Reactive Protein NT-Pro-B Natriuret Pep 82663 H Albumin LDL Cholesterol Direct Urine WBC (Auto) 06/27/19 06/27/19 13:41 14:27 WBC RBC Hgb Hct MCV RDW Plt Count Seg Neuts % (Manual) Lymphocytes % (Manual) Monocytes % (Manual) Nucleated RBC % Seg Neutrophils # Man Lymphocytes # (Manual) Monocytes # (Manual) PT INR D-Dimer POC ABG pH POC ABG pCO2 POC ABG pO2 Sodium 136 L Potassium 5.1 H Chloride 97.8 L Carbon Dioxide BUN 90 H Creatinine 4.1 H Glucose 157 H POC Glucose Lactic Acid Calcium 8.0 L Total Bilirubin AST ALT Total Creatine Kinase CK-MB (CK-2) CK-MB (CK-2) Rel Index Troponin T C-Reactive Protein 9.00 H NT-Pro-B Natriuret Pep Albumin LDL Cholesterol Direct Urine WBC (Auto) Assessment and Plan Impression: 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 Neuropathy 4. REM behavioral sleep disorder (RBSD) 5. Sleep apnea Plan: 1. EEG being done. 2. MRI if not improving. 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 This certainly suggests improvement. 3. Keppra 2500 mg loading dose based on weight then 750 mg iv q12h due to creatinine clearance of 33.7. 4. Keppra level midday Tuesday. Aim for 30-60. Could taper Keppra slowly off after 3 months, if no seizures, and if EEG at that time shows no epileptiform activity. 5. Continue melatonin once extubated, for RBSD, may need to increase to 15 mg ONE HOUR before sleep. 6. Could try first vitamin B6 100 mg a day for neuropathy and if that fails after a 3 week trial, could try alpha lipoic acid 300 mg po bid for neuropathy. 50 min critical care time spent with this patient. Thank you for an interesting consultation on this unfortunate early 70s man. Signing off since improving, call for any questions.
--- NOTE | 2018-08-24 17:51 | Progress Note ---
Assessment and Plan Assessment and plan: 73 -year-old man with a history of COPD, chronic kidney disease, liver disease, diabetes, GITA, colon cancer, comes to the emergency room with complaints of shortness of 4. Per the he was in the hospital in June for COPD. Probably discharge he had decreased oral intake, last time became more short of breath, hallucinating and then became combative, pulling off his CPAP. She called EMS, they had difficulty intubating the patient in the field, he was bagged, per EMS, when he arrived at the entrance of the hospital he lost his pulse. Patient was intubated in the emergency room, given 2 rounds of epi with ROSC. Status post hyperkalemic cocktail Acute respiratory failure s/p Cardiac arrest-POA Severe Sepsis COPD exacerbation-POA Pneumonia, HCAP-PRESUMED GNR Acute Metabolic Encephalopathy LEFT TMJ JOINT DISLOCATION-POA Acute systolic Heart failure-POA Elevated D.DIMER Hyperkalemia Type 2 OK Anemia ?acute blood loss Myoclonic seziures Hypoxic ischemic Encephalopathy CARDIOMYOPATHY KHRIS secondary to vasomotor nephropathy with possible Probably acute on chronic kidney disease Abnormal cardiac enzymes Liver disease GITA colon cancer Morbidly obese Plan Continue supportvie care- Remains intubated, off versed, still on fentanyl drip, EEG ordered, Neurology consulted and EEG Started Doppler lower ext pending considering KUB to check for residual Obtain ID consult considering GPC in culture and recent hx of MRSA CELLULITIS check blood cultures, h/h -obtain records from the [place] -discussed with nursing staff, No family present. Aspiration precautions Cardiology and Critical care input noted Abx per ID recs Per family Patient has had prior admission to [place] [facility] and was supposed to be on BIPAP which has been 4 weeks delayed. Case management consult Echo reviewed, no vegetation noted. EF 40-45%, Discussed with cardiology The high probability of a clinically significant, sudden or life-threatening deterioration of the [respiratory, cardiovascular, renal , gastrointestinal, neurology] system(s) required my full and direct attention, intervention and personal management. The aggregate critical care time was [35 ] minutes without overlap. [x] Data Review and interpretation [x] Patient assessment and monitoring of vital signs [x] Documentation [x] Medication orders and management History Interval history: Patient seen and examined, remains on full ventilatory support. No adverse complaints reported to me overnight. weaning o2 down to 35%. patient noted to have high residuals Hospitalist Physical - Physical exam Narrative exam: General Apperance: The patient lying in bed, on full mechanical ventilatory support, daughter at bedside. HEENT: Normocephalic, atraumatic. Pupils equally round and reactive to light, unable to do EOM, no scleratic or JVD or thyromegaly or nodule. , no carotid bruit, mucous membranes moist, unable to examine oral cavity, ET tube in place Heart: S1-S2, regular is rhythm Lungs: Clear to auscultation bilaterally, breathing comfortable Abdomen: Positive bowel sounds, soft, nondistended, no organomegaly Extremities: No edema cyanosis clubbing Skin: no rash, nodule, warm and dry Neuro: Sedated - Constitutional Vitals: Temp Pulse Resp BP Pulse Ox 98.3 F 73 19 134/63 95 08/24/18 16:00 08/24/18 17:01 08/24/18 17:01 08/24/18 17:01 08/24/18 17:01 General appearance: Present: other (intubated, chronically ill appearing) Results - Labs CBC & Chem 7: 08/24/18 10:10 08/24/18 14:27 Labs: Laboratory Last Values WBC 9.6 K/mm3 (4.5-11.0) 08/24/18 10:10 RBC 2.47 M/mm3 (3.65-5.03) L 08/24/18 10:10 Hgb 7.5 gm/dl (11.8-15.2) L 08/24/18 10:10 Hct 23.3 % (35.5-45.6) L 08/24/18 10:10 MCV 94 fl (84-94) 08/24/18 10:10 MCH 31 pg (28-32) 08/24/18 10:10 MCHC 32 % (32-34) 08/24/18 10:10 RDW 17.5 % (13.2-15.2) H 08/24/18 10:10 Plt Count 118 K/mm3 (140-440) L 08/24/18 10:10 Lymph % (Auto) Development Vice President 08/21/18 04:42 [place] % (Auto) Development Vice President 08/21/18 04:42 Eos % (Auto) Development Vice President 08/21/18 04:42 Baso % (Auto) Development Vice President 08/21/18 04:42 Lymph # Development Vice President 08/21/18 04:42 [place] # Development Vice President 08/21/18 04:42 Eos # Development Vice President 08/21/18 04:42 Baso # Development Vice President 08/21/18 04:42 Add Manual Diff Complete 08/24/18 10:10 Total Counted 100 08/24/18 10:10 Seg Neutrophils % Development Vice President 08/24/18 10:10 Seg Neuts % (Manual) 92.0 % (40.0-70.0) H 08/24/18 10:10 0 % 08/24/18 10:10 2.0 % (13.4-35.0) L 08/24/18 10:10 Reactive Lymphs % (Man) 0 % 08/24/18 10:10 6.0 % (0.0-7.3) 08/24/18 10:10 0 % (0.0-4.3) 08/24/18 10:10 0 % (0.0-1.8) 08/24/18 10:10 0 % 08/24/18 10:10 0 % 08/24/18 10:10 0 % 08/24/18 10:10 0 % 08/24/18 10:10 Nucleated RBC % Not Reportable 08/24/18 10:10 Seg Neutrophils # Development Vice President 08/21/18 04:42 Seg Neutrophils # Man 8.8 K/mm3 (1.8-7.7) H 08/24/18 10:10 Band Neutrophils # 0.0 K/mm3 08/24/18 10:10 0.2 K/mm3 (1.2-5.4) L 08/24/18 10:10 Abs React Lymphs (Man) 0.0 K/mm3 08/24/18 10:10 0.6 K/mm3 (0.0-0.8) 08/24/18 10:10 0.0 K/mm3 (0.0-0.4) 08/24/18 10:10 0.0 K/mm3 (0.0-0.1) 08/24/18 10:10 0.0 K/mm3 08/24/18 10:10 0.0 K/mm3 08/24/18 10:10 0.0 K/mm3 08/24/18 10:10 Blast Cells # 0.0 K/mm3 08/24/18 10:10 WBC Morphology Not Reportable 08/24/18 10:10 Hypersegmented Neuts Not Reportable 08/24/18 10:10 Hyposegmented Neuts Not Reportable 08/24/18 10:10 Hypogranular Neuts Not Reportable 08/24/18 10:10 Not Reportable 08/24/18 10:10 Not Reportable 08/24/18 10:10 Not Reportable 08/24/18 10:10 Not Reportable 08/24/18 10:10 Not Reportable 08/24/18 10:10 Not Reportable 08/24/18 10:10 Consistent w auto 08/24/18 10:10 Not Reportable 08/24/18 10:10 Plt Clumps, EDTA Not Reportable 08/24/18 10:10 Not Reportable 08/24/18 10:10 Not Reportable 08/24/18 10:10 Not Reportable 08/24/18 10:10 Plt Morphology Comment Not Reportable 08/24/18 10:10 RBC Morphology Not Reportable 08/24/18 10:10 Dimorphic RBCs Not Reportable 08/24/18 10:10 Few 08/24/18 10:10 Not Reportable 08/24/18 10:10 Not Reportable 08/24/18 10:10 1+ 08/24/18 10:10 Not Reportable 08/24/18 10:10 Not Reportable 08/24/18 10:10 Not Reportable 08/24/18 10:10 Not Reportable 08/24/18 10:10 Not Reportable 08/24/18 10:10 Not Reportable 08/24/18 10:10 Not Reportable 08/24/18 10:10 Not Reportable 08/24/18 10:10 Not Reportable 08/24/18 10:10 Not Reportable 08/24/18 10:10 Not Reportable 08/24/18 10:10 Not Reportable 08/24/18 10:10 Not Reportable 08/24/18 10:10 Not Reportable 08/24/18 10:10 Not Reportable 08/24/18 10:10 Acanthocytes (Spur) Not Reportable 08/24/18 10:10 Rouleaux Not Reportable 08/24/18 10:10 Not Reportable 08/24/18 10:10 Not Reportable 08/24/18 10:10 Not Reportable 08/24/18 10:10 Not Reportable 08/24/18 10:10 Hem Pathologist Commnt No 08/24/18 10:10 PT 20.1 Sec. (12.2-14.9) H 08/21/18 04:42 INR 1.76 (0.87-1.13) H 08/21/18 04:42 APTT 30.8 Sec. (24.2-36.6) 08/21/18 04:42 1978.25 ng/mlDDU (0-234) H 08/24/18 13:41 POC ABG pH 7.243 (7.35-7.45) L 08/24/18 05:21 POC ABG pCO2 56.8 (35-45) H 08/24/18 05:21 POC ABG pO2 102 (80-105) 08/24/18 05:21 POC ABG HCO3 24.5 (22-26 mml/L) 08/24/18 05:21 POC ABG Total CO2 26 (23-27mmol/L) 08/24/18 05:21 POC ABG O2 Sat 96 08/24/18 05:21 POC ABG Base Excess -3 ((-2) - (+3)mmol/L) 08/24/18 05:21 40 % 08/24/18 05:21 Sodium 136 mmol/L (137-145) L 08/24/18 14:27 Potassium 5.1 mmol/L (3.6-5.0) H 08/24/18 14:27 Chloride 97.8 mmol/L (98-107) L 08/24/18 14:27 Carbon Dioxide 22 mmol/L (22-30) 08/24/18 14:27 21 mmol/L 08/24/18 14:27 BUN 90 mg/dL (9-20) H 08/24/18 14:27 4.1 mg/dL (0.8-1.5) H 08/24/18 14:27 Estimated GFR 14 ml/min 08/24/18 14:27 22 % 08/24/18 14:27 Glucose 157 mg/dL (75-100) H 08/24/18 14:27 POC Glucose 155 (70-105) H 08/24/18 17:23 Lactic Acid 1.30 mmol/L (0.7-2.0) 08/21/18 20:50 Calcium 8.0 mg/dL (8.4-10.2) L 08/24/18 14:27 Magnesium 2.30 mg/dL (1.7-2.3) 08/23/18 14:24 0.80 mg/dL (0.1-1.2) 08/23/18 04:52 AST 247 units/L (5-40) H 08/23/18 04:52 ALT 220 units/L (7-56) H 08/23/18 04:52 101 units/L (35-129) 08/23/18 04:52 222 units/L (55-170) H 08/21/18 10:45 CK-MB (CK-2) 9.2 ng/mL (0.0-4.0) H 08/21/18 10:45 CK-MB (CK-2) Rel Index 4.1 (0-4) H 08/21/18 10:45 0.044 ng/mL (0.00-0.029) H D 08/21/18 10:45 9.00 mg/dL (0.00-1.30) H 08/24/18 13:41 NT-Pro-B Natriuret Pep 56516 pg/mL (0-900) H 08/24/18 10:10 6.5 g/dL (6.3-8.2) 08/23/18 04:52 2.8 g/dL (3.9-5) L 08/23/18 04:52 0.8 % 08/23/18 04:52 Triglycerides 87 mg/dL (2-149) 08/21/18 04:42 Cholesterol 93 mg/dL (50-199) 08/21/18 04:42 44 mg/dL (50-130) L 08/21/18 04:42 41 mg/dL (40-59) 08/21/18 04:42 2.26 % 08/21/18 04:42 Yellow (Yellow) 08/21/18 15:03 Slightly-cloudy (Clear) 08/21/18 15:03 5.0 (5.0-7.0) 08/21/18 15:03 Ur Specific [place] 1.015 (1.003-1.030) 08/21/18 15:03 30 mg/dl mg/dL (Negative) 08/21/18 15:03 Neg mg/dL (Negative) 08/21/18 15:03 Neg mg/dL (Negative) 08/21/18 15:03 Mod (Negative) 08/21/18 15:03 Neg (Negative) 08/21/18 15:03 Neg (Negative) 08/21/18 15:03 < 2.0 mg/dL (<2.0) 08/21/18 15:03 Ur Leukocyte Esterase Tr (Negative) 08/21/18 15:03 13.0 /HPF (0.0-6.0) H 08/21/18 15:03 15.0 /HPF (0.0-6.0) 08/21/18 15:03 U Epithel Cells (Auto) 1.0 /HPF (0-13.0) 08/21/18 15:03 1+ /HPF (Negative) 08/21/18 15:03 Few /HPF 08/21/18 15:03 Random Vancomycin 12.4 ug/mL (0-40.0) 08/24/18 10:10 Active Medications - Current Medications Current Medications: Generic Name Dose Route Start Last Admin Trade Name Freq PRN Reason Stop Dose Admin Acetaminophen 650 mg 08/21/18 06:31 Tylenol PO Q4H PRN Pain MILD(1-3)/Fever >100.5/COOK Acetaminophen 650 mg 08/21/18 06:31 Tylenol HI Q4H PRN Pain MILD(1-3)/Fever >100.5/COOK Albuterol/Ipratropium 1 ampul 08/24/18 20:00 Duoneb *Not For Prn Use* IH BIDRT LUIS Lipase/Protease/Amylase 1 each 08/22/18 09:25 Pancreamaris [place] 10,500 Unit FEEDTUBE PRN PRN For Clogged Feeding Tube Arformoterol Tartrate 15 mcg 08/24/18 20:00 Brovana Nebu IH Q12HRT LUIS Budesonide 0.5 mg 08/24/18 20:00 Pulmicort IH Q12HRT LUIS Dextrose 50 ml 08/21/18 06:48 D50w (25gm) Syringe IV PRN PRN Hypoglycemia Famotidine 20 mg 08/22/18 10:00 08/24/18 10:44 Pepcid IV 20 mg DAILY LUIS Administration Fentanyl 50 mcg 08/21/18 11:34 08/21/18 18:50 Sublimaze IV 50 mcg Q10MIN PRN Administration ANALGESIA Furosemide 60 mg 08/24/18 20:00 Lasix IV 08/24/18 20:01 ONCE ONE Heparin Sodium (Porcine) 5,000 unit 08/22/18 10:00 08/24/18 10:44 Heparin SUB-Q 5,000 unit Q12HR [facility] Administration Hydrophilic Ointment 1 applic 08/21/18 11:34 Vaseline Lip Therapy TP Q2HR PRN Dry Lips Fentanyl Citrate 2,000 mcg in 100 mls @ 7.053 mls/hr 08/21/18 12:00 08/24/18 10:00 Fentanyl Drip Premix IV 1 mcg/kg/hr TITR LUIS 7.053 mls/hr Titration Protocol 1 MCG/KG/HR Midazolam HCl 100 mg/ Sodium 100 mls @ 2 mls/hr 08/21/18 15:00 08/22/18 18:00 Chloride IV 0 mg/hr TITR LUIS 0 mls/hr Titration Protocol 2 MG/HR Levetiracetam 750 mg/ Dextrose 107.5 mls @ 400 mls/hr 08/24/18 22:00 IV Q12HR [facility] Insulin Human Lispro 0 unit 08/21/18 12:00 08/24/18 17:17 Humalog SUB-Q 3 unit Q6HR [facility] Administration Protocol Methylprednisolone Sodium Succinate 20 mg 08/24/18 22:00 Solu-Medrol IV 08/25/18 10:01 Q12HR [facility] Methylprednisolone Sodium Succinate 20 mg 08/26/18 10:00 Solu-Medrol IV 08/29/18 10:01 Q24HR [facility] Midazolam HCl 2 mg 08/21/18 14:32 08/21/18 14:52 Versed IV 2 mg Q10MIN PRN Administration Sedation Multi-Ingred Cream/Lotion/Oil/Oint 1 applic 08/21/18 11:34 Artificial Tears Ophth Oint OU Q4HR PRN Dry Eye(s) Ondansetron HCl 4 mg 08/21/18 06:31 Zofran IV Q8H PRN Nausea And Vomiting Simple Syrup 15 ml 08/22/18 09:25 Simple Syrup FEEDTUBE PRN PRN Hypoglycemia Simple Syrup 30 ml 08/22/18 09:25 Simple Syrup FEEDTUBE PRN PRN Hypoglycemia Sodium Bicarbonate 325 mg 08/22/18 09:25 Sodium Bicarbonate FEEDTUBE PRN PRN For Clogged Feeding Tube Sodium Chloride 10 ml 08/21/18 10:00 08/24/18 10:45 Sodium Chloride Flush Syringe 10 Ml IV 10 ml BID LUIS Administration Sodium Chloride 10 ml 08/21/18 06:31 Sodium Chloride Flush Syringe 10 Ml IV PRN PRN LINE FLUSH Nutrition/Malnutrition Assess - Dietary Evaluation Nutrition/Malnutrition Findings: Nutrition Notes Start: 08/21/18 16:58 Freq: Status: Active Protocol: Document 08/24/18 14:38 RM (Rec: 08/24/18 14:42 RM [id number]) Nutrition Notes Initial or Follow up Reassessment Current Diagnosis Acute Kidney Injury,CKD(stage I-IV),COPD,Diabetes,Sepsis Other Pertinent Diagnosis Hx colon CA, Pneu Current Diet NPO Labs/Tests K 5.2 Pertinent Medications Lasix Height 5 ft 6 in Weight 146.3 kg [place] Body Weight (kg) 64.54 BMI 52.0 Subjective/Other Information Observed Nepro infusing at goal rate. Per nurse last residual was 300 mls. Percent of energy/protein needs met: 95%/54% Burn Absent Trauma Absent #1 Nutrition Diagnosis Inadequate oral intake Diagnosis Progress(for reassessment Continues documentation) Is patient on ventilator? Yes Is Patient Ambulatory and/or Out of Bed No REE-([facility]-confined to bed) 2592.060 Kcal/Kg value to use for calculation 14 Approximate Energy Requirements Using 2048 kcal/Kg Calculation Used for Recommendations Kcal/kg Additional Notes Protein needs are 161g (2.5g/ kg IBW) Fluid Needs: 1 ml/kcal Nutrition Intervention Nutrition Support: Nepro at 45ml/hr 150ml q4h flush Kcal 1,944 Protein (gm) 87 Fluid (mL) 785 Goal #1 Meet at least 80% of kcal and protein needs Anticipated Discharge Needs: Unable to determine at this time Follow-Up By: 08/28/18 Additional Comments Follow for residuals, K lab
--- NOTE | 2018-08-24 18:41 | Electroencephalogram Report ---
Electroencephalogram EEG Date of exam: 08/24/18 History: Jerking of limbs associated in the past with low oxygen according to his . Some jerking seen at the time of intubation EMS and in-hospital. Impression: This 17 channel (including 1 channel of EKG) digital EEG is performed with 10/20 international montage in a 20 minute recording. There is no alpha activity. There is slowing seen in the theta and delta range. EMG and motion artifact are prominent at times. There is no clear EEG correlation with ophthalmology surgical technician observed jerks or movements. There may be some POSTS (positive occipital sharp transients of sleep) but no other sleep architecture. At times triphasic waves are seen. Description: The waking background shows an appropriate organization with well-defined anterior posterior voltage and frequency gradients. Posteriorly, there is a well-developed alpha rhythm of [ ] Hz which is symmetrical and bilaterally reactive. Anteriorly, there is a pattern of lower voltage and slightly irregular theta and beta range frequencies. During drowsiness, there is attenuation of the background rhythms. The sleep background shows normal organization with well-formed sleep spindles and vertex waves which are synchronous and symmetrical. Throughout, the recording there are no epileptiform abnormalities, focal or lateralizing features, or significant interhemispheric findings. Interpretation: Moderately abnormal waking EEG due to slowing of background activity without clear evidence of drowsiness or sleep. This EEG does not exclude epilepsy of partial onset. Four EEGs over several months may be needed to capture interictal epileptiform activity. Myoclonic jerks (eg from hypoxia) often cannot be correlated with EEG since this requires back averaging of EEG from an EMG recording of the affected muscle (not available here).
[2018-08-24] MEDS: PULMICORT IH SCH (20:15)
[2018-08-24] MEDS: BROVANA NEBU IH SCH (20:15)
[2018-08-24] MEDS ORDERED: KEPPRA 750 MG in D5W 100 ML IV SCH (22:00)
[2018-08-24] MEDS ORDERED: KEPPRA 1,500 MG in D5W 100 ML IV SCH (22:00)
[2018-08-24] MEDS: KEPPRA 750 MG in D5W 100 ML IV SCH (22:46)
--- NOTE | 2018-08-25 05:42 | XRay Report ---
PROCEDURE: XR CHEST 1V AP TECHNIQUE: Chest radiograph single view. HISTORY: follow up respiratory failure COMPARISONS: None . FINDINGS: Frontal view of the chest was acquired and compared to the prior examination of July 2016. The endotracheal tube lies in appropriate position. There is cardiomegaly and stable mild pulmonary edema. There is bibasilar dependent consolidation, un changed in the prior exam, atelectasis versus pneumonia. IMPRESSION: Cardiomegaly and stable mild pulmonary edema Bibasilar infiltrates unchanged This document is electronically signed by Britton Mohr MD., August 25 2018 05:40:15 AM ET
[2018-08-25 06:33] LABS: Calcium 8.3 mg/dL (8.4-10.2)
[2018-08-25] MEDS: HumaLOG SUB-Q SCH ×4 (07:00→17:20)
[2018-08-25] MEDS: PULMICORT IH SCH ×2 (08:04→19:58)
[2018-08-25] MEDS: BROVANA NEBU IH SCH ×2 (08:04→19:58)
[2018-08-25] MEDS: DUONEB *Not for PRN Use IH SCH ×2 (08:05→19:58)
--- NOTE | 2018-08-25 09:50 | Progress Note ---
Assessment and Plan Assessment and plan: 73 -year-old man with a history of COPD, chronic kidney disease, liver disease, diabetes, GITA, colon cancer, comes to the emergency room with complaints of shortness of 4. Per the he was in the hospital in June for COPD. Probably discharge he had decreased oral intake, last time became more short of breath, hallucinating and then became combative, pulling off his CPAP. She called EMS, they had difficulty intubating the patient in the field, he was bagged, per EMS, when he arrived at the entrance of the hospital he lost his pulse. Patient was intubated in the emergency room, given 2 rounds of epi with ROSC. Status post hyperkalemic cocktail Contaminate Blood culture Acute respiratory failure s/p Cardiac arrest-POA Suspect Bowel obstruction Severe Sepsis- Resolved COPD exacerbation-POA Pneumonia, HCAP-PRESUMED GNR Acute Metabolic Encephalopathy LEFT TMJ JOINT DISLOCATION-POA Acute systolic Heart failure-POA Elevated D.DIMER Hyperkalemia Type 2 MN Anemia ?acute blood loss Thrombocytopenia Myoclonic seziures Hypoxic ischemic Encephalopathy CARDIOMYOPATHY KHRIS secondary to vasomotor nephropathy with possible Probably acute on chronic kidney disease Abnormal cardiac enzymes Liver disease GITA colon cancer BY HX Morbidly obese Plan Continue supportive care- Remains intubated, off versed, still on fentanyl drip Continue on abx Awaiting Doppler Hold tube feeds. TTE no vegetation Surgery consulted State KUB EEG ordered, Neurology consulted and EEG Started Doppler lower ext pending considering Obtain ID consult considering GPC in culture and recent hx of MRSA CELLULITIS check blood cultures, h[facility]h [facility] with [facility] staff, Aspiration precautions Cardiology and Critical care input noted Abx per ID recs Plan discussed with Family The high probability of a clinically significant, sudden or life-threatening deterioration of the [respiratory, cardiovascular, renal , gastrointestinal, neurology] system(s) required my full and direct attention, intervention and personal management. The aggregate critical care time was [35 ] minutes without overlap. [x] Data Review and interpretation [x] Patient assessment and monitoring of vital signs [x] Documentation [x] Medication orders and management History Interval history: Patient seen and examined, remains on full ventilatory support. Overnight was noted to have large amount of fecal like material coming out of the ngt. Hospitalist Physical - Physical exam Narrative exam: General Apperance: The patient lying in bed, on full mechanical ventilatory support, daughter at bedside. HEENT: Normocephalic, atraumatic. Pupils equally round and reactive to light, unable to do EOM, no scleratic or JVD or thyromegaly or nodule. , no carotid bruit, mucous membranes moist, unable to examine oral cavity, ET tube in place Heart: S1-S2, regular is rhythm Lungs: Clear to auscultation bilaterally, breathing comfortable Abdomen: Positive bowel sounds, soft, nondistended, no organomegaly Extremities: No edema cyanosis clubbing Skin: no rash, nodule, warm and dry Neuro: Sedated - Constitutional Vitals: Temp Pulse Resp BP Pulse Ox 99.1 F 76 22 128/62 99 08/25/18 04:00 08/25/18 09:01 08/25/18 09:01 08/25/18 09:01 08/25/18 09:01 General appearance: Present: other (intubated, chronically ill appearing) Results - Labs CBC & Chem 7: 08/25/18 16:43 08/26/18 05:53 Labs: Laboratory Last Values WBC 9.6 K/mm3 (4.5-11.0) 08/24/18 10:10 RBC 2.47 M/mm3 (3.65-5.03) L 08/24/18 10:10 Hgb 7.5 gm/dl (11.8-15.2) L 08/24/18 10:10 Hct 23.3 % (35.5-45.6) L 08/24/18 10:10 MCV 94 fl (84-94) 08/24/18 10:10 MCH 31 pg (28-32) 08/24/18 10:10 MCHC 32 % (32-34) 08/24/18 10:10 RDW 17.5 % (13.2-15.2) H 08/24/18 10:10 Plt Count 118 K/mm3 (140-440) L 08/24/18 10:10 Lymph % (Auto) Partner Manager 08/21/18 04:42 Mower % (Auto) Partner Manager 08/21/18 04:42 Eos % (Auto) Partner Manager 08/21/18 04:42 Baso % (Auto) Partner Manager 08/21/18 04:42 Lymph # Partner Manager 08/21/18 04:42 Mower # Partner Manager 08/21/18 04:42 Eos # Partner Manager 08/21/18 04:42 Baso # Partner Manager 08/21/18 04:42 Add Manual Diff Complete 08/24/18 10:10 Total Counted 100 08/24/18 10:10 Seg Neutrophils % Partner Manager 08/24/18 10:10 Seg Neuts % (Manual) 92.0 % (40.0-70.0) H 08/24/18 10:10 0 % 08/24/18 10:10 2.0 % (13.4-35.0) L 08/24/18 10:10 Reactive Lymphs % (Man) 0 % 08/24/18 10:10 6.0 % (0.0-7.3) 08/24/18 10:10 0 % (0.0-4.3) 08/24/18 10:10 0 % (0.0-1.8) 08/24/18 10:10 0 % 08/24/18 10:10 0 % 08/24/18 10:10 0 % 08/24/18 10:10 0 % 08/24/18 10:10 Nucleated RBC % Not Reportable 08/24/18 10:10 Seg Neutrophils # Partner Manager 08/21/18 04:42 Seg Neutrophils # Man 8.8 K/mm3 (1.8-7.7) H 08/24/18 10:10 Band Neutrophils # 0.0 K/mm3 08/24/18 10:10 0.2 K/mm3 (1.2-5.4) L 08/24/18 10:10 Abs React Lymphs (Man) 0.0 K/mm3 08/24/18 10:10 0.6 K/mm3 (0.0-0.8) 08/24/18 10:10 0.0 K/mm3 (0.0-0.4) 08/24/18 10:10 0.0 K/mm3 (0.0-0.1) 08/24/18 10:10 0.0 K/mm3 08/24/18 10:10 0.0 K/mm3 08/24/18 10:10 0.0 K/mm3 08/24/18 10:10 Blast Cells # 0.0 K/mm3 08/24/18 10:10 WBC Morphology Not Reportable 08/24/18 10:10 Hypersegmented Neuts Not Reportable 08/24/18 10:10 Hyposegmented Neuts Not Reportable 08/24/18 10:10 Hypogranular Neuts Not Reportable 08/24/18 10:10 Not Reportable 08/24/18 10:10 Not Reportable 08/24/18 10:10 Not Reportable 08/24/18 10:10 Not Reportable 08/24/18 10:10 Not Reportable 08/24/18 10:10 Not Reportable 08/24/18 10:10 Consistent w auto 08/24/18 10:10 Not Reportable 08/24/18 10:10 Plt Clumps, EDTA Not Reportable 08/24/18 10:10 Not Reportable 08/24/18 10:10 Not Reportable 08/24/18 10:10 Not Reportable 08/24/18 10:10 Plt Morphology Comment Not Reportable 08/24/18 10:10 RBC Morphology Not Reportable 08/24/18 10:10 Dimorphic RBCs Not Reportable 08/24/18 10:10 Few 08/24/18 10:10 Not Reportable 08/24/18 10:10 Not Reportable 08/24/18 10:10 1+ 08/24/18 10:10 Not Reportable 08/24/18 10:10 Not Reportable 08/24/18 10:10 Not Reportable 08/24/18 10:10 Not Reportable 08/24/18 10:10 Not Reportable 08/24/18 10:10 Not Reportable 08/24/18 10:10 Not Reportable 08/24/18 10:10 Not Reportable 08/24/18 10:10 Not Reportable 08/24/18 10:10 Not Reportable 08/24/18 10:10 Not Reportable 08/24/18 10:10 Not Reportable 08/24/18 10:10 Not Reportable 08/24/18 10:10 Not Reportable 08/24/18 10:10 Not Reportable 08/24/18 10:10 Acanthocytes (Spur) Not Reportable 08/24/18 10:10 Rouleaux Not Reportable 08/24/18 10:10 Not Reportable 08/24/18 10:10 Not Reportable 08/24/18 10:10 Not Reportable 08/24/18 10:10 Not Reportable 08/24/18 10:10 Hem Pathologist Commnt No 08/24/18 10:10 PT 20.1 Sec. (12.2-14.9) H 08/21/18 04:42 INR 1.76 (0.87-1.13) H 08/21/18 04:42 APTT 30.8 Sec. (24.2-36.6) 08/21/18 04:42 1978.25 ng/mlDDU (0-234) H 08/24/18 13:41 POC ABG pH 7.238 (7.35-7.45) L 08/25/18 05:22 POC ABG pCO2 58.2 (35-45) H 08/25/18 05:22 POC ABG pO2 82 (80-105) 08/25/18 05:22 POC ABG HCO3 24.8 (22-26 mml/L) 08/25/18 05:22 POC ABG Total CO2 27 (23-27mmol/L) 08/25/18 05:22 POC ABG O2 Sat 93 08/25/18 05:22 POC ABG Base Excess -3 ((-2) - (+3)mmol/L) 08/25/18 05:22 35 % 08/25/18 05:22 Sodium 140 mmol/L (137-145) 08/25/18 05:57 Potassium 5.4 mmol/L (3.6-5.0) H 08/25/18 05:57 Chloride 98.3 mmol/L (98-107) 08/25/18 05:57 Carbon Dioxide 22 mmol/L (22-30) 08/25/18 05:57 25 mmol/L 08/25/18 05:57 BUN 98 mg/dL (9-20) H 08/25/18 05:57 4.3 mg/dL (0.8-1.5) H 08/25/18 05:57 Estimated GFR 14 ml/min 08/25/18 05:57 23 % 08/25/18 05:57 Glucose 217 mg/dL (75-100) H 08/25/18 05:57 POC Glucose 235 (70-105) H 08/25/18 08:59 Lactic Acid 1.30 mmol/L (0.7-2.0) 08/21/18 20:50 Calcium 8.3 mg/dL (8.4-10.2) L 08/25/18 05:57 Magnesium 2.30 mg/dL (1.7-2.3) 08/23/18 14:24 0.80 mg/dL (0.1-1.2) 08/23/18 04:52 AST 247 units/L (5-40) H 08/23/18 04:52 ALT 220 units/L (7-56) H 08/23/18 04:52 101 units/L (35-129) 08/23/18 04:52 222 units/L (55-170) H 08/21/18 10:45 CK-MB (CK-2) 9.2 ng/mL (0.0-4.0) H 08/21/18 10:45 CK-MB (CK-2) Rel Index 4.1 (0-4) H 08/21/18 10:45 0.044 ng/mL (0.00-0.029) H D 08/21/18 10:45 9.00 mg/dL (0.00-1.30) H 08/24/18 13:41 NT-Pro-B Natriuret Pep 97041 pg/mL (0-900) H 08/25/18 05:57 6.5 g/dL (6.3-8.2) 08/23/18 04:52 2.8 g/dL (3.9-5) L 08/23/18 04:52 0.8 % 08/23/18 04:52 Triglycerides 87 mg/dL (2-149) 08/21/18 04:42 Cholesterol 93 mg/dL (50-199) 08/21/18 04:42 44 mg/dL (50-130) L 08/21/18 04:42 41 mg/dL (40-59) 08/21/18 04:42 2.26 % 08/21/18 04:42 Yellow (Yellow) 08/21/18 15:03 Slightly-cloudy (Clear) 08/21/18 15:03 5.0 (5.0-7.0) 08/21/18 15:03 Ur Specific [place] 1.015 (1.003-1.030) 08/21/18 15:03 30 mg/dl mg/dL (Negative) 08/21/18 15:03 Neg mg/dL (Negative) 08/21/18 15:03 Neg mg/dL (Negative) 08/21/18 15:03 Mod (Negative) 08/21/18 15:03 Neg (Negative) 08/21/18 15:03 Neg (Negative) 08/21/18 15:03 < 2.0 mg/dL (<2.0) 08/21/18 15:03 Ur Leukocyte Esterase Tr (Negative) 08/21/18 15:03 13.0 /HPF (0.0-6.0) H 08/21/18 15:03 15.0 /HPF (0.0-6.0) 08/21/18 15:03 U Epithel Cells (Auto) 1.0 /HPF (0-13.0) 08/21/18 15:03 1+ /HPF (Negative) 08/21/18 15:03 Few /HPF 08/21/18 15:03 Random Vancomycin 12.4 ug/mL (0-40.0) 08/24/18 10:10 Active Medications - Current Medications Current Medications: Generic Name Dose Route Start Last Admin Trade Name Freq PRN Reason Stop Dose Admin Acetaminophen 650 mg 08/21/18 06:31 Tylenol PO Q4H PRN Pain MILD(1-3)/Fever >100.5/COOK Acetaminophen 650 mg 08/21/18 06:31 Tylenol SD Q4H PRN Pain MILD(1-3)/Fever >100.5/COOK Albuterol/Ipratropium 1 ampul 08/24/18 20:00 08/25/18 08:05 Duoneb *Not For Prn Use* IH Not Given BIDRT LUIS Lipase/Protease/Amylase 1 each 08/22/18 09:25 Pancreamaris [place] 10,500 Unit FEEDTUBE PRN PRN For Clogged Feeding Tube Arformoterol Tartrate 15 mcg 08/24/18 20:00 08/25/18 08:04 Brovana Nebu IH 15 mcg Q12HRT LUIS Administration Budesonide 0.5 mg 08/24/18 20:00 08/25/18 08:04 Pulmicort IH 0.5 mg Q12HRT LUIS Administration Dextrose 50 ml 08/21/18 06:48 D50w (25gm) Syringe IV PRN PRN Hypoglycemia Famotidine 20 mg 08/25/18 10:00 Pepcid IV DAILY LUIS Fentanyl 50 mcg 08/21/18 11:34 08/21/18 18:50 Sublimaze IV 50 mcg Q10MIN PRN Administration ANALGESIA Heparin Sodium (Porcine) 5,000 unit 08/22/18 10:00 08/24/18 22:45 Heparin SUB-Q 5,000 unit Q12HR LUIS Administration Hydrophilic Ointment 1 applic 08/21/18 11:34 Vaseline Lip Therapy TP Q2HR PRN Dry Lips Fentanyl Citrate 2,000 mcg in 100 mls @ 7.053 mls/hr 08/21/18 12:00 08/24/18 15:00 Fentanyl Drip Premix IV Infused TITR LUIS Titration Protocol 1 MCG/KG/HR Midazolam HCl 100 mg/ Sodium 100 mls @ 2 mls/hr 08/21/18 15:00 08/24/18 18:21 Chloride IV 0 mg/hr TITR LUIS 0 mls/hr Titration Protocol 2 MG/HR Levetiracetam 750 mg/ Dextrose 107.5 mls @ 400 mls/hr 08/24/18 22:00 08/24/18 22:46 IV 400 mls/hr Q12HR LUIS Administration Cefazolin Sodium 2 gm/ Sodium 100 mls @ 200 mls/hr 08/25/18 10:00 Chloride IV Q24HR [facility] Insulin Human Lispro 0 unit 08/21/18 12:00 08/25/18 07:00 Humalog SUB-Q 4 unit Q6HR LUIS Administration Protocol Methylprednisolone Sodium Succinate 20 mg 08/24/18 22:00 08/24/18 22:46 Solu-Medrol IV 08/25/18 10:01 20 mg Q12HR LUIS Administration Methylprednisolone Sodium Succinate 20 mg 08/26/18 10:00 Solu-Medrol IV 08/29/18 10:01 Q24HR LUIS Midazolam HCl 2 mg 08/21/18 14:32 08/21/18 14:52 Versed IV 2 mg Q10MIN PRN Administration Sedation Multi-Ingred Cream/Lotion/Oil/Oint 1 applic 08/21/18 11:34 Artificial Tears Ophth Oint OU Q4HR PRN Dry Eye(s) Ondansetron HCl 4 mg 08/21/18 06:31 Zofran IV Q8H PRN Nausea And Vomiting Simple Syrup 15 ml 08/22/18 09:25 Simple Syrup FEEDTUBE PRN PRN Hypoglycemia Simple Syrup 30 ml 08/22/18 09:25 Simple Syrup FEEDTUBE PRN PRN Hypoglycemia Sodium Bicarbonate 325 mg 08/22/18 09:25 Sodium Bicarbonate FEEDTUBE PRN PRN For Clogged Feeding Tube Sodium Chloride 10 ml 08/21/18 10:00 08/24/18 10:45 Sodium Chloride Flush Syringe 10 Ml IV 10 ml BID LUIS Administration Sodium Chloride 10 ml 08/21/18 06:31 Sodium Chloride Flush Syringe 10 Ml IV PRN PRN LINE FLUSH Nutrition/Malnutrition Assess - Dietary Evaluation Nutrition/Malnutrition Findings: Nutrition Notes Start: 08/21/18 16:58 Freq: Status: Active Protocol: Document 08/24/18 14:38 RM (Rec: 08/24/18 14:42 RM [id number]) Nutrition Notes Initial or Follow up Reassessment Current Diagnosis Acute Kidney Injury,CKD(stage I-IV),COPD,Diabetes,Sepsis Other Pertinent Diagnosis Hx colon CA, Pneu Current Diet NPO Labs/Tests K 5.2 Pertinent Medications Lasix Height 5 ft 6 in Weight 146.3 kg [place] Body Weight (kg) 64.54 BMI 52.0 Subjective/Other Information Observed Nepro infusing at goal rate. Per nurse last residual was 300 mls. Percent of energy/protein needs met: 95%/54% Burn Absent Trauma Absent #1 Nutrition Diagnosis Inadequate oral intake Diagnosis Progress(for reassessment Continues documentation) Is patient on ventilator? Yes Is Patient Ambulatory and/or Out of Bed No REE-([facility]-confined to bed) 2592.060 Kcal/Kg value to use for calculation 14 Approximate Energy Requirements Using 2048 kcal/Kg Calculation Used for Recommendations Kcal/kg Additional Notes Protein needs are 161g (2.5g/ kg IBW) Fluid Needs: 1 ml/kcal Nutrition Intervention Nutrition Support: Nepro at 45ml/hr 150ml q4h flush Kcal 1,944 Protein (gm) 87 Fluid (mL) 785 Goal #1 Meet at least 80% of kcal and protein needs Anticipated Discharge Needs: Unable to determine at this time Follow-Up By: 08/28/18 Additional Comments Follow for residuals, K lab
[2018-08-25] MEDS: SODIUM CHLORIDE FLUSH SYRINGE 10 ML IV SCH ×3 (10:00→21:26)
[2018-08-25] MEDS ORDERED: ceFAZolin 2 GM in NACL 0.9% 100 ML IV ONE (10:00)
[2018-08-25] MEDS: KEPPRA 750 MG in D5W 100 ML IV SCH ×2 (10:23→21:26)
[2018-08-25] MEDS: SOLU-Medrol IV SCH (10:24)
[2018-08-25] MEDS: SUBLIMAZE IV PRN (10:29)
[2018-08-25] MEDS: HEPARIN SUB-Q SCH ×2 (10:30→21:26)
[2018-08-25] MEDS: PEPCID IV SCH (10:30)
--- NOTE | 2018-08-25 10:32 | XRay Report ---
ABDOMEN RADIOGRAPHS INDICATION: Obstruction. COMPARISON: 08/22/2018 FINDINGS: Frontal abdominal radiographs, 2 images again demonstrate esophagogastric tube tip and side-port within the stomach, now containing greater air. Mid to lower abdominal bowel caliber in the left hemiabdomen approximately 6 cm with possible transition about the splenic flexure not entirely excluded. Rectosigmoid though appears nondistended/unremarkable. Both flanks partly excluded from the radiographic margins. No definite pneumatosis or pneumoperitoneum, to the extent assessed. Imaged lung bases suggest cardiomegaly with bibasilar hazy opacities/infiltrates and obscured left hemidiaphragm. EKG leads. Multilevel spinal degenerative changes. CONCLUSION: 1. Nasogastric tube tip again noted in the stomach with bowel gas pattern, as described. CT may be further informative, if warranted. 2. Various other findings, including those at the imaged lung bases, as above. Thank you for the opportunity to participate in this patient's care.
--- NOTE | 2018-08-25 10:32 | Progress Note ---
Assessment and Plan Pt presented on 08/21 to ED with acute on chronic respiratory failure and respiratory arrest. Patient went into cardiac arrest just prior to EMS arrival arrival, with reported rhythm of asystole. Upon ED arrival patient noted to be in PEA and was coded again with eventual ROSC. Pt with sepsis, PNA, ARF. Echo showed EF 40-45%, LV mod dilated, pseudonormalization, RV severely dilated, RA mod dilated, mod TR, RVSP 47mmHg. Cont supportive management. The patient has been seen in conjunction with Dr. Jay who agrees with the assessment and plan of care. - Patient Problems (1) Cardiac arrest Current Visit: Yes Status: Acute (2) Acute HFrEF (heart failure with reduced ejection fraction) Current Visit: Yes Status: Acute (3) Cardiomyopathy Current Visit: Yes Status: Acute (4) Acute on chronic respiratory failure Current Visit: Yes Status: Acute (5) Acute renal failure Current Visit: Yes Status: Acute (6) Hyperkalemia Current Visit: Yes Status: Acute (7) Lactic acidosis Current Visit: Yes Status: Acute (8) Pneumonia Current Visit: Yes Status: Acute (9) Sepsis Current Visit: Yes Status: Suspected (10) Anemia Current Visit: Yes Status: Acute (11) GI bleed Current Visit: Yes Status: Suspected (12) Elevated liver enzymes Current Visit: Yes Status: Acute (13) Elevated troponin Current Visit: Yes Status: Acute (14) Altered mental status Current Visit: Yes Status: Acute Subjective Date of service: 08/25/18 Principal diagnosis: cardiac arrest Interval history: pt remains intubated, sedated. family at bedside. Objective Last Vital Signs Temp 99.1 F 08/25/18 04:00 Pulse 76 08/25/18 09:01 Resp 22 08/25/18 09:01 BP 128/62 08/25/18 09:01 Pulse Ox 99 08/25/18 09:01 - Physical Examination General: Other (intubated, sedated) Neck: Positive: neck supple Cardiac: Positive: Reg Rate and Rhythm, S1/S2 Lungs: Positive: Ventilated Respirations Neuro: Positive: Other (intubated, sedated) Skin: Negative: Rash Extremities: Absent: edema - Labs and Meds CBC 08/24/18 Range/Units 10:10 WBC 9.6 (4.5-11.0) K/mm3 RBC 2.47 L (3.65-5.03) M/mm3 Hgb 7.5 L (11.8-15.2) gm/dl Hct 23.3 L (35.5-45.6) % Plt Count 118 L (140-440) K/mm3 Comprehensive Metabolic Panel 08/24/18 08/25/18 Range/Units 14:27 05:57 Sodium 136 L 140 (137-145) mmol/L Potassium 5.1 H 5.4 H (3.6-5.0) mmol/L Chloride 97.8 L 98.3 (98-107) mmol/L Carbon Dioxide 22 22 (22-30) mmol/L BUN 90 H 98 H (9-20) mg/dL Creatinine 4.1 H 4.3 H (0.8-1.5) mg/dL Glucose 157 H 217 H (75-100) mg/dL Calcium 8.0 L 8.3 L (8.4-10.2) mg/dL - Imaging and Cardiology EKG: image reviewed Echo: report reviewed ( EF 40-45%, LV mod dilated, pseudonormalization, RV severely dilated, RA mod dilated, mod TR, RVSP 47mmHg. ) - EKG Sinus rhythms and dysrhythmias: sinus rhythm AV and intraventricular conduction: right bundle branch block - Allied health notes Allied health notes reviewed: RT
[2018-08-25] MEDS: ceFAZolin 2 GM in NACL 0.9% 100 ML IV SCH (10:58)
--- NOTE | 2018-08-25 12:37 | Progress Note ---
Assessment and Plan - Patient Problems (1) Acute on chronic respiratory failure Current Visit: Yes Status: Acute Plan to address problem: Acute on chronic respiratory failure Currently intubated chest x-ray with bilateral opacities edema versus infilt rate Remains intubated Wean oxygen as tolerated (2) Acute renal failure Current Visit: Yes Status: Acute Plan to address problem: Acute renal failure worsening Has baseline history of chronic kidney disease stage III Admission creatinine is 4.3, Current creatinine 4.3 mg/DL Currently has volume overload also with hyperkalemia Chest x-ray with slight improvement in edema I reviewed renal ultrasound with small right kidney and normal sized left kidney etiology of KHRIS is likely volume overload with tubular injury in the setting of sepsis and cardiac arrest , also with atrophic right kidney. Received Diuril and Lasix without impressive diuresis Daughter reports creatinine in April was 3.3-3.7mg/dl Discussed with daughter, recommend proceeding with [employer] for solute clearance given worsening renal function, volume overload and hyperkalemia Azotemia worsened by steroids for treatment of COPD will proceed with HD following Vas cath placement appreciate Vascular surgery assistance Plan of care discussed and prognosis discussed in detail I spent 45mins with greater than 50% face to face counselling on plan of care for treatment of renal failure ,risks and benefits of dialysis. continue Lasix 60mg IV today. Avoid nephrotoxic medications (3) Hyperkalemia Current Visit: Yes Status: Acute Plan to address problem: Hyperkalemia worsening Recent cardiac arrest Received insulin and dextrose received calcium gluconate received 30 g Kayexalate received give diuretics Will initiate HD today. (4) Lactic acidosis Current Visit: Yes Status: Acute (5) Cardiac arrest Current Visit: Yes Status: Acute Plan to address problem: Cardiac arrest Query secondary to cardiogenic causes Status post intubation Remains intubated orally on broad-spectrum antibiotics Cardiology on board (6) Bacteremia due to coagulase-negative Staphylococcus Current Visit: Yes Status: Acute Plan to address problem: Tracheal culture with staph aureus also blood cultures growing same Continue broad-spectrum antibiotics Subjective Principal diagnosis: cardiac arrest Interval history: 73-year-old gentleman with medical history significant for hypertension, conges tive heart failure, diabetes mellitus type 2, chronic kidney disease stage III admitted with complaints of shortness of breath for the past few days is on home oxygen 2 L nasal cannula prior to the arrival in the hospital developed pulseless electrical activity and code was called. Patient was seen today Less agitated today received Keppra overnight obeys commands well today. improving urine output this morning. Daughter at bedside, Discussed plan of care in detail with her and Patients at bedside , I explained prognosis and plan of care including dialysis need in detail Questions solicited and answered. Patients and daughter are agreeable with initiating hemodialysis today Objective - Vital Signs Vital signs: Vital Signs - 12hr 08/25/18 08/25/18 08/25/18 00:47 01:01 02:01 Temperature Pulse Rate 95 H 79 78 Pulse Rate [ Anterior Bilateral Throughout] Pulse Rate [ From Monitor] Respiratory 20 19 Rate Respiratory Rate [Anterior Bilateral Throughout] Blood Pressure 128/62 128/62 128/62 O2 Sat by Pulse 97 97 97 Oximetry 08/25/18 08/25/18 08/25/18 03:01 03:36 04:00 Temperature 99.1 F Pulse Rate 83 87 79 Pulse Rate [ Anterior Bilateral Throughout] Pulse Rate [ 84 From Monitor] Respiratory 19 18 Rate Respiratory Rate [Anterior Bilateral Throughout] Blood Pressure 128/62 128/62 O2 Sat by Pulse 97 97 98 Oximetry 08/25/18 08/25/18 08/25/18 04:01 05:01 06:01 Temperature Pulse Rate 93 H 96 H 75 Pulse Rate [ Anterior Bilateral Throughout] Pulse Rate [ From Monitor] Respiratory 15 10 L 12 Rate Respiratory Rate [Anterior Bilateral Throughout] Blood Pressure 128/62 128/62 128/62 O2 Sat by Pulse 97 93 99 Oximetry 08/25/18 08/25/18 08/25/18 07:01 08:00 08:01 Temperature Pulse Rate 69 77 82 Pulse Rate [ Anterior Bilateral Throughout] Pulse Rate [ 72 From Monitor] Respiratory 20 22 16 Rate Respiratory Rate [Anterior Bilateral Throughout] Blood Pressure 128/62 128/62 128/62 O2 Sat by Pulse 97 100 100 Oximetry 08/25/18 08/25/18 08/25/18 08:04 08:20 09:01 Temperature Pulse Rate 76 Pulse Rate [ 75 80 Anterior Bilateral Throughout] Pulse Rate [ From Monitor] Respiratory 22 Rate Respiratory 22 21 Rate [Anterior Bilateral Throughout] Blood Pressure 128/62 O2 Sat by Pulse 99 Oximetry 08/25/18 08/25/18 08/25/18 10:01 11:01 11:32 Temperature Pulse Rate 80 79 78 Pulse Rate [ Anterior Bilateral Throughout] Pulse Rate [ From Monitor] Respiratory 23 17 Rate Respiratory Rate [Anterior Bilateral Throughout] Blood Pressure 160/69 165/79 O2 Sat by Pulse 97 98 100 Oximetry 08/25/18 08/25/18 12:00 12:01 Temperature Pulse Rate 72 78 Pulse Rate [ Anterior Bilateral Throughout] Pulse Rate [ 72 From Monitor] Respiratory 21 18 Rate Respiratory Rate [Anterior Bilateral Throughout] Blood Pressure 165/79 O2 Sat by Pulse 99 99 Oximetry - General Appearance General appearance: well-developed, well-nourished EENT: ATNC, PERRL Neck: no JVD Respiratory: Present: Rales, Ronchi Cardiology: regular, S1S2 Gastrointestinal: normal, normoactive bowel sounds Integumentary: no rash Neurologic: other (awake and alert. ) Psychiatric: agitated - Lab 08/24/18 10:10 08/25/18 05:57 Most recent lab results Calcium 8.3 mg/dL (8.4-10.2) L 08/25/18 05:57 Magnesium 2.30 mg/dL (1.7-2.3) 08/23/18 14:24 - Imaging Chest x-ray: image reviewed (I reviewed CXr with bilateral patchy opacities pulmonary edema and infiltrate. ) Medications & Allergies - Medications Allergies/Adverse Reactions: Allergies Penicillins Allergy (Verified 08/21/18 04:49) Unknown -cillins Allergy (Uncoded 08/21/18 04:49) Unknown Home Medications: Home Medications Medication Instructions Recorded Confirmed Last Taken Type AtorvaSTATin [Lipitor] 10 mg PO QHS 08/21/18 08/21/18 Unknown History Ferrous Sulfate [Feosol] 325 mg PO QDAY 08/21/18 08/21/18 Unknown History Melatonin [Melatonin 10MG CAP] 10 mg PO DAILY 08/21/18 08/21/18 Unknown History NIFEdipine [Nifedipine ER] 60 mg PO BID 08/21/18 08/21/18 Unknown History Sennosides Tab [Senokot] 1 tab PO HS 08/21/18 08/21/18 Unknown History Tamsulosin [Flomax] 2 cap PO HS 08/21/18 08/21/18 Unknown History Torsemide [Demadex] 20 mg PO DAILY 08/21/18 08/21/18 Unknown History Venlafaxine HCl [Venlafaxin ER] 75 mg PO QDAY 08/21/18 08/21/18 Unknown History buPROPion [Wellbutrin] 100 mg PO DAILY 08/21/18 08/21/18 Unknown History Active Medications: Generic Name Dose Route Start Last Admin Trade Name Freq PRN Reason Stop Dose Admin Acetaminophen 650 mg 08/21/18 06:31 Tylenol PO Q4H PRN Pain MILD(1-3)/Fever >100.5/COOK Acetaminophen 650 mg 08/21/18 06:31 Tylenol PA Q4H PRN Pain MILD(1-3)/Fever >100.5/COOK Albuterol/Ipratropium 1 ampul 08/24/18 20:00 08/25/18 08:05 Duoneb *Not For Prn Use* IH Not Given BIDRT [facility] Lipase/Protease/Amylase 1 each 08/22/18 09:25 [place] 10,500 Unit FEEDTUBE PRN PRN For Clogged Feeding Tube Arformoterol Tartrate 15 mcg 08/24/18 20:00 08/25/18 08:04 Brovana Nebu IH 15 mcg Q12HRT [facility] Administration Budesonide 0.5 mg 08/24/18 20:00 08/25/18 08:04 Pulmicort IH 0.5 mg Q12HRT [facility] Administration Dextrose 50 ml 08/21/18 06:48 D50w (25gm) Syringe IV PRN PRN Hypoglycemia Famotidine 20 mg 08/25/18 10:00 08/25/18 10:30 Pepcid IV 20 mg DAILY [facility] Administration Fentanyl 50 mcg 08/21/18 11:34 08/25/18 10:29 Sublimaze IV 50 mcg Q10MIN PRN Administration ANALGESIA Heparin Sodium (Porcine) 5,000 unit 08/22/18 10:00 08/25/18 10:30 Heparin SUB-Q 5,000 unit Q12HR [facility] Administration Hydrophilic Ointment 1 applic 08/21/18 11:34 Vaseline Lip Therapy TP Q2HR PRN Dry Lips Fentanyl Citrate 2,000 mcg in 100 mls @ 7.053 mls/hr 08/21/18 12:00 08/24/18 15:00 Fentanyl Drip Premix IV Infused TITR [facility] Titration Protocol 1 MCG/KG/HR Midazolam HCl 100 mg/ Sodium 100 mls @ 2 mls/hr 08/21/18 15:00 08/24/18 18:21 Chloride IV 0 mg/hr TITR [facility] 0 mls/hr Titration Protocol 2 MG/HR Levetiracetam 750 mg/ Dextrose 107.5 mls @ 400 mls/hr 08/24/18 22:00 08/25/18 10:23 IV 400 mls/hr Q12HR [facility] Administration Cefazolin Sodium 2 gm/ Sodium 100 mls @ 200 mls/hr 08/25/18 10:00 08/25/18 10:58 Chloride IV 200 mls/hr Q24HR [facility] Administration Insulin Human Lispro 0 unit 08/21/18 12:00 08/25/18 12:27 Humalog SUB-Q 4 unit Q6HR [facility] Administration Protocol Methylprednisolone Sodium Succinate 20 mg 08/26/18 10:00 Solu-Medrol IV 08/29/18 10:01 Q24HR [facility] Midazolam HCl 2 mg 08/21/18 14:32 08/21/18 14:52 Versed IV 2 mg Q10MIN PRN Administration Sedation Multi-Ingred Cream/Lotion/Oil/Oint 1 applic 08/21/18 11:34 Artificial Tears Ophth Oint OU Q4HR PRN Dry Eye(s) Ondansetron HCl 4 mg 08/21/18 06:31 Zofran IV Q8H PRN Nausea And Vomiting Simple Syrup 15 ml 08/22/18 09:25 Simple Syrup FEEDTUBE PRN PRN Hypoglycemia Simple Syrup 30 ml 08/22/18 09:25 Simple Syrup FEEDTUBE PRN PRN Hypoglycemia Sodium Bicarbonate 325 mg 08/22/18 09:25 Sodium Bicarbonate FEEDTUBE PRN PRN For Clogged Feeding Tube Sodium Chloride 10 ml 08/21/18 10:00 08/24/18 10:45 Sodium Chloride Flush Syringe 10 Ml IV 10 ml BID [facility] Administration Sodium Chloride 10 ml 08/21/18 06:31 Sodium Chloride Flush Syringe 10 Ml IV PRN PRN LINE FLUSH
[2018-08-25] MEDS ORDERED: LANTUS SUB-Q ONE (13:00)
--- NOTE | 2018-08-25 13:22 | Progress Note ---
Assessment and Plan Cultures: Blood cultures 08/21/2018 CoNS 2 of 4 bottles. Sputum cultures 08/21/2018 MSSA Urine cultures 08/21/2018 no growth Assessment: 73 y/o male with a history of chronic kidney disease, liver disease, COPD, diabetes, GITA, colon cancer admitted on due to 4-day history of progressive shortness of breath and right neck/face edema and tenderness associated with poor po intake, patient became unresponsive en route. EMS unable to intubate. Pt bagged with 100%. Patient found in asystole at the ED receiving s/p CRP. 1) Severe Sepsis s/p arrest in the ED: better, leukocytosis resolved, lactate now normal. Etiology likely pneumonia +/- bacteremia +/- ? bowel obstruction. 2) Pneumonia: likely HCAP (recent admission to [facility] for MRSA cellulitis?). CXR shows bilateral infiltrate with airspace disease on RLL. Sputum cultures 08/21/2018 Staph aureus. ?MRSA pneumonia. On vancomycin and levaquin. 3) CoNS Bacteremia: likely contaminant. Blood cultures 08/21/2018 CoNS 2 of 4 bottles. TTE no vegetations, EF 40-45% 4) Left facial/neck swelling/pain: CT shows left TMJ dislocation v/s subluxation and some soft tissue swelling, no abscess, no parotitis. 5) Acute on CKD: renaly adjust meds 6) Elevated LFTs: from sepsis ? liver disease? 7) Acute encephalopathy: Per , at home he became hallucinating and combative, pulling off his CPAP ? sepsis 8) Penicillin allergy: ?unclear reaction 9) ? NGT with feculent material ? bowel obstruction. Recommendations: - surgical eval due to NGT with feculent material - trial of cefazolin IV while intubated if tolerates will stop vancomycin and continue cefazolin renally dosed - discussed with pharm - discussed with reaction to penicillin, very remote and unclear - left TMJ dislocation v/s subluxation on CT per director of transportation - f/u repeat blood cultures Dr Still will be covering the weekend Will follow. Vira Johnson MD Infectious Diseases Plant Biology Professor [facility] M [phone] O [phone] Subjective Date of service: 08/25/18 Principal diagnosis: cardiac arrest Interval history: Patient remains intubated sedated. No fever. Noted NGT fluid feculant ROS unable to obtain. Objective - Exam Narrative Exam: General appearance: sedated intubated in NAD Eyes: anicteric sclerae, moist conjunctivae; no lid-lag; PERRLA HENT: Atraumatic; oropharynx +ETT +NGT with feculent material Neck: left neck mandibular area edema and tenderness spread to left temporal area. Lungs: norris rhonchi CV: RRR Abdomen: Soft, non-tender; no masses or hepatosplenomegaly Extremities: norris hands edema Skin: norris chronic calf discoloration Psych: sedated. Neuro: sedated right femoral line - Constitutional Vitals: Vital Signs Temp Pulse Resp BP Pulse Ox 99.1 F 78 18 165/79 99 08/25/18 04:00 08/25/18 12:01 08/25/18 12:01 08/25/18 12:01 08/25/18 12:01 Temperature -Last 24 Hours Temperature 99.1 F Temperature 98.2 F Temperature 98.3 F - Labs CBC & Chem 7: 08/24/18 10:10 08/25/18 05:57 Labs: Abnormal lab results 08/24/18 08/24/18 08/24/18 Range/Units 13:41 13:41 14:27 D-Dimer 1978.25 H (0-234) ng/mlDDU POC ABG pH (7.35-7.45) POC ABG pCO2 (35-45) Sodium 136 L (137-145) mmol/L Potassium 5.1 H (3.6-5.0) mmol/L Chloride 97.8 L (98-107) mmol/L BUN 90 H (9-20) mg/dL Creatinine 4.1 H (0.8-1.5) mg/dL Glucose 157 H (75-100) mg/dL POC Glucose (70-105) Calcium 8.0 L (8.4-10.2) mg/dL C-Reactive Protein 9.00 H (0.00-1.30) mg/dL NT-Pro-B Natriuret Pep (0-900) pg/mL 08/24/18 08/25/18 08/25/18 Range/Units 17:23 00:38 05:22 D-Dimer (0-234) ng/mlDDU POC ABG pH 7.238 L (7.35-7.45) POC ABG pCO2 58.2 H (35-45) Sodium (137-145) mmol/L Potassium (3.6-5.0) mmol/L Chloride (98-107) mmol/L BUN (9-20) mg/dL Creatinine (0.8-1.5) mg/dL Glucose (75-100) mg/dL POC Glucose 155 H 176 H (70-105) Calcium (8.4-10.2) mg/dL C-Reactive Protein (0.00-1.30) mg/dL NT-Pro-B Natriuret Pep (0-900) pg/mL 08/25/18 08/25/18 08/25/18 Range/Units 05:57 06:56 08:59 D-Dimer (0-234) ng/mlDDU POC ABG pH (7.35-7.45) POC ABG pCO2 (35-45) Sodium (137-145) mmol/L Potassium 5.4 H (3.6-5.0) mmol/L Chloride (98-107) mmol/L BUN 98 H (9-20) mg/dL Creatinine 4.3 H (0.8-1.5) mg/dL Glucose 217 H (75-100) mg/dL POC Glucose 247 H 235 H (70-105) Calcium 8.3 L (8.4-10.2) mg/dL C-Reactive Protein (0.00-1.30) mg/dL NT-Pro-B Natriuret Pep 60248 H (0-900) pg/mL 08/25/18 08/25/18 Range/Units 11:38 12:29 D-Dimer (0-234) ng/mlDDU POC ABG pH 7.348 L (7.35-7.45) POC ABG pCO2 48.6 H (35-45) Sodium (137-145) mmol/L Potassium (3.6-5.0) mmol/L Chloride (98-107) mmol/L BUN (9-20) mg/dL Creatinine (0.8-1.5) mg/dL Glucose (75-100) mg/dL POC Glucose 237 H (70-105) Calcium (8.4-10.2) mg/dL C-Reactive Protein (0.00-1.30) mg/dL NT-Pro-B Natriuret Pep (0-900) pg/mL
[2018-08-25] MEDS ORDERED: HEPARIN 10,000 UNITS/10 ML ONE (13:56)
[2018-08-25] MEDS ORDERED: HEPARIN/NS 5000 UNIT/500ML(CATH LAB) 500 ML IR ONE ×2 (13:56→15:39)
[2018-08-25] MEDS ORDERED: ANCEF/STERILE WATER 2 GM/20 ML 0 GM/0 ML SYRINGE IV ONE (13:56)
[2018-08-25] MEDS ORDERED: NACL 0.9% 500 ML 500 ML ONE (14:11)
--- NOTE | 2018-08-25 14:22 | Consultation ---
History of Present Illness - Reason for Consult Consult date: 08/25/18 Eval for temporary HD access Requesting physician: ALEX HUYNH - History of Present Illness This pt is a 73yo WM admitted via the ER with AMS, s/p cardiopulmonary arrest. He has multiple comorbid conditions including colon cancer. The pt has acute on chronic renal failure, and needs to start HD per the nephrology service. A vascular surgery consult is requested to further evaluate. Past History Past Medical History: cancer (colon), COPD, diabetes, liver disease, renal failure (Chronic), other (GITA) Past Surgical History: Other (colon resection) Social history: . denies: smoking, alcohol abuse Family history: hypertension Medications and Allergies Allergies Allergy/AdvReac Type Severity Reaction Status Date / Time Penicillins Allergy Unknown Verified 08/21/18 04:49 -cillins Allergy Unknown Uncoded 08/21/18 04:49 Home Medications Medication Instructions Recorded Confirmed Last Taken Type AtorvaSTATin [Lipitor] 10 mg PO QHS 08/21/18 08/21/18 Unknown History Ferrous Sulfate [Feosol] 325 mg PO QDAY 08/21/18 08/21/18 Unknown History Melatonin [Melatonin 10MG CAP] 10 mg PO DAILY 08/21/18 08/21/18 Unknown History NIFEdipine [Nifedipine ER] 60 mg PO BID 08/21/18 08/21/18 Unknown History Sennosides Tab [Senokot] 1 tab PO HS 08/21/18 08/21/18 Unknown History Tamsulosin [Flomax] 2 cap PO HS 08/21/18 08/21/18 Unknown History Torsemide [Demadex] 20 mg PO DAILY 08/21/18 08/21/18 Unknown History Venlafaxine HCl [Venlafaxin ER] 75 mg PO QDAY 08/21/18 08/21/18 Unknown History buPROPion [Wellbutrin] 100 mg PO DAILY 08/21/18 08/21/18 Unknown History Active Meds: Active Medications Acetaminophen (Tylenol) 650 mg PO Q4H PRN PRN Reason: Pain MILD(1-3)/Fever >100.5/COOK Acetaminophen (Tylenol) 650 mg UT Q4H PRN PRN Reason: Pain MILD(1-3)/Fever >100.5/COOK Albuterol/Ipratropium (Duoneb *Not For Prn Use*) 1 ampul IH BIDRT [facility] Last Admin: 08/25/18 08:05 Dose: Not Given Documented by: Lipase/Protease/Amylase ([place] 10,500 Unit) 1 each FEEDTUBE PRN PRN PRN Reason: For Clogged Feeding Tube Arformoterol Tartrate (Brovana Nebu) 15 mcg IH Q12HRT [facility] Last Admin: 08/25/18 08:04 Dose: 15 mcg Documented by: Budesonide (Pulmicort) 0.5 mg IH Q12HRT [facility] Last Admin: 08/25/18 08:04 Dose: 0.5 mg Documented by: Dextrose (D50w (25gm) Syringe) 50 ml IV PRN PRN PRN Reason: Hypoglycemia Famotidine (Pepcid) 20 mg IV DAILY [facility] Last Admin: 08/25/18 10:30 Dose: 20 mg Documented by: Fentanyl (Sublimaze) 50 mcg IV Q10MIN PRN PRN Reason: ANALGESIA Last Admin: 08/25/18 10:29 Dose: 50 mcg Documented by: Heparin Sodium (Porcine) (Heparin) 5,000 unit SUB-Q Q12HR [facility] Last Admin: 08/25/18 10:30 Dose: 5,000 unit Documented by: Hydrophilic Ointment (Vaseline Lip Therapy) 1 applic TP Q2HR PRN PRN Reason: Dry Lips Fentanyl Citrate (Fentanyl Drip Premix) 2,000 mcg in 100 mls @ 7.053 mls/hr IV TITR [facility]; Protocol Last Titration: 08/24/18 15:00 Dose: Infused Documented by: Midazolam HCl 100 mg/ Sodium (Chloride) 100 mls @ 2 mls/hr IV TITR [facility]; Protocol Last Titration: 08/24/18 18:21 Dose: 0 mg/hr, 0 mls/hr Documented by: Levetiracetam 750 mg/ Dextrose 107.5 mls @ 400 mls/hr IV Q12HR [facility] Last Admin: 08/25/18 10:23 Dose: 400 mls/hr Documented by: Cefazolin Sodium 2 gm/ Sodium (Chloride) 100 mls @ 200 mls/hr IV Q24HR [facility] Last Admin: 08/25/18 10:58 Dose: 200 mls/hr Documented by: Insulin Human Lispro (Humalog) 0 unit SUB-Q Q6HR [facility]; Protocol Last Admin: 08/25/18 12:27 Dose: 4 unit Documented by: Methylprednisolone Sodium Succinate (Solu-Medrol) 20 mg IV Q24HR [facility] Stop: 08/29/18 10:01 Midazolam HCl (Versed) 2 mg IV Q10MIN PRN PRN Reason: Sedation Last Admin: 08/21/18 14:52 Dose: 2 mg Documented by: Multi-Ingred Cream/Lotion/Oil/Oint (Artificial Tears Ophth Oint) 1 applic OU Q4HR PRN PRN Reason: Dry Eye(s) Ondansetron HCl (Zofran) 4 mg IV Q8H PRN PRN Reason: Nausea And Vomiting Simple Syrup (Simple Syrup) 15 ml FEEDTUBE PRN PRN PRN Reason: Hypoglycemia Simple Syrup (Simple Syrup) 30 ml FEEDTUBE PRN PRN PRN Reason: Hypoglycemia Sodium Bicarbonate (Sodium Bicarbonate) 325 mg FEEDTUBE PRN PRN PRN Reason: For Clogged Feeding Tube Sodium Chloride (Sodium Chloride Flush Syringe 10 Ml) 10 ml IV BID [facility] Last Admin: 08/24/18 10:45 Dose: 10 ml Documented by: Sodium Chloride (Sodium Chloride Flush Syringe 10 Ml) 10 ml IV PRN PRN PRN Reason: LINE FLUSH Review of Systems ROS unobtainable: due to mental status Exam - Constitutional Vitals: Temp Pulse Resp BP Pulse Ox 99.1 F 78 18 165/79 99 08/25/18 04:00 08/25/18 12:01 08/25/18 12:01 08/25/18 12:01 08/25/18 12:01 General appearance: Present: no acute distress, obese - Neck Neck: Present: supple - Respiratory Respiratory effort: other (on mechanical ventilation) - Psychiatric Psychiatric: other (sedated) - Neurologic Neurologic: other (sedated) Results - Labs CBC & Chem 7: 08/24/18 10:10 08/25/18 05:57 Labs: Abnormal lab results 08/24/18 08/24/18 08/24/18 Range/Units 13:41 13:41 14:27 D-Dimer 1978.25 H (0-234) ng/mlDDU POC ABG pH (7.35-7.45) POC ABG pCO2 (35-45) Sodium 136 L (137-145) mmol/L Potassium 5.1 H (3.6-5.0) mmol/L Chloride 97.8 L (98-107) mmol/L BUN 90 H (9-20) mg/dL Creatinine 4.1 H (0.8-1.5) mg/dL Glucose 157 H (75-100) mg/dL POC Glucose (70-105) Calcium 8.0 L (8.4-10.2) mg/dL C-Reactive Protein 9.00 H (0.00-1.30) mg/dL NT-Pro-B Natriuret Pep (0-900) pg/mL 08/24/18 08/25/18 08/25/18 Range/Units 17:23 00:38 05:22 D-Dimer (0-234) ng/mlDDU POC ABG pH 7.238 L (7.35-7.45) POC ABG pCO2 58.2 H (35-45) Sodium (137-145) mmol/L Potassium (3.6-5.0) mmol/L Chloride (98-107) mmol/L BUN (9-20) mg/dL Creatinine (0.8-1.5) mg/dL Glucose (75-100) mg/dL POC Glucose 155 H 176 H (70-105) Calcium (8.4-10.2) mg/dL C-Reactive Protein (0.00-1.30) mg/dL NT-Pro-B Natriuret Pep (0-900) pg/mL 08/25/18 08/25/18 08/25/18 Range/Units 05:57 06:56 08:59 D-Dimer (0-234) ng/mlDDU POC ABG pH (7.35-7.45) POC ABG pCO2 (35-45) Sodium (137-145) mmol/L Potassium 5.4 H (3.6-5.0) mmol/L Chloride (98-107) mmol/L BUN 98 H (9-20) mg/dL Creatinine 4.3 H (0.8-1.5) mg/dL Glucose 217 H (75-100) mg/dL POC Glucose 247 H 235 H (70-105) Calcium 8.3 L (8.4-10.2) mg/dL C-Reactive Protein (0.00-1.30) mg/dL NT-Pro-B Natriuret Pep 17531 H (0-900) pg/mL 08/25/18 08/25/18 Range/Units 11:38 12:29 D-Dimer (0-234) ng/mlDDU POC ABG pH 7.348 L (7.35-7.45) POC ABG pCO2 48.6 H (35-45) Sodium (137-145) mmol/L Potassium (3.6-5.0) mmol/L Chloride (98-107) mmol/L BUN (9-20) mg/dL Creatinine (0.8-1.5) mg/dL Glucose (75-100) mg/dL POC Glucose 237 H (70-105) Calcium (8.4-10.2) mg/dL C-Reactive Protein (0.00-1.30) mg/dL NT-Pro-B Natriuret Pep (0-900) pg/mL Assessment and Plan This Pt needs temporary HD access to begin dialysis per the nephrology service. I spoke with the pt's family. I discussed the risk benefits and alternatives to vas cath insertion. They stated understanding, and agree to proceed. This will be performed in the laborer aquatic life utilizing with fluoroscopic and u/s guidance. - Patient Problems (1) Acute renal failure Current Visit: Yes Status: Acute (2) Colon cancer Current Visit: Yes Status: Acute (3) Small bowel obstruction Current Visit: Yes Status: Suspected (4) Diabetes Current Visit: Yes Status: Acute (5) COPD (chronic obstructive pulmonary disease) Current Visit: Yes Status: Acute (6) Acute on chronic respiratory failure Current Visit: Yes Status: Acute
[2018-08-25] MEDS: XYLOCAINE 1%/ EPI 1:100,000 INFILTRATI ONE ×2 (14:44→14:45)
--- NOTE | 2018-08-25 14:51 | Consultation ---
History of Present Illness Consult date: 08/25/18 Chief complaint: high residuals via NGT - History of present illness History of present illness: 73 yo M with hx of COPD, CKD, obesity who presented to ER with SOB and subsequently had respiratory arrest and was intubated. He remains intubated in the ICU and off sedation. Last night nursing noted high residuals via NGT. When NGT was hooked to suction, 400-500cc was feculent appearing material was suctioned. Patient denies pain in abdomen. No f/c. Patient cannot provide any history, obtained from chart and nursing. Surgery consulted to assess for possible obstruction. Past History Past Medical History: cancer (colon), COPD, diabetes, liver disease, renal failure (Chronic), other (GITA) Past Surgical History: Other (colon resection) Social history: . denies: smoking, alcohol abuse Family history: hypertension Medications and Allergies Allergies Allergy/AdvReac Type Severity Reaction Status Date / Time Penicillins Allergy Unknown Verified 08/21/18 04:49 -cillins Allergy Unknown Uncoded 08/21/18 04:49 Home Medications Medication Instructions Recorded Confirmed Last Taken Type AtorvaSTATin [Lipitor] 10 mg PO QHS 08/21/18 08/21/18 Unknown History Ferrous Sulfate [Feosol] 325 mg PO QDAY 08/21/18 08/21/18 Unknown History Melatonin [Melatonin 10MG CAP] 10 mg PO DAILY 08/21/18 08/21/18 Unknown History NIFEdipine [Nifedipine ER] 60 mg PO BID 08/21/18 08/21/18 Unknown History Sennosides Tab [Senokot] 1 tab PO HS 08/21/18 08/21/18 Unknown History Tamsulosin [Flomax] 2 cap PO HS 08/21/18 08/21/18 Unknown History Torsemide [Demadex] 20 mg PO DAILY 08/21/18 08/21/18 Unknown History Venlafaxine HCl [Venlafaxin ER] 75 mg PO QDAY 08/21/18 08/21/18 Unknown History buPROPion [Wellbutrin] 100 mg PO DAILY 08/21/18 08/21/18 Unknown History Active Meds: Active Medications Acetaminophen (Tylenol) 650 mg PO Q4H PRN PRN Reason: Pain MILD(1-3)/Fever >100.5/COOK Acetaminophen (Tylenol) 650 mg MS Q4H PRN PRN Reason: Pain MILD(1-3)/Fever >100.5/COOK Albuterol/Ipratropium (Duoneb *Not For Prn Use*) 1 ampul IH BIDRT [facility] Last Admin: 08/25/18 08:05 Dose: Not Given Documented by: Lipase/Protease/Amylase ([place] 10,500 Unit) 1 each FEEDTUBE PRN PRN PRN Reason: For Clogged Feeding Tube Arformoterol Tartrate (Brovana Nebu) 15 mcg IH Q12HRT [facility] Last Admin: 08/25/18 08:04 Dose: 15 mcg Documented by: Budesonide (Pulmicort) 0.5 mg IH Q12HRT [facility] Last Admin: 08/25/18 08:04 Dose: 0.5 mg Documented by: Dextrose (D50w (25gm) Syringe) 50 ml IV PRN PRN PRN Reason: Hypoglycemia Famotidine (Pepcid) 20 mg IV DAILY [facility] Last Admin: 08/25/18 10:30 Dose: 20 mg Documented by: Fentanyl (Sublimaze) 50 mcg IV Q10MIN PRN PRN Reason: ANALGESIA Last Admin: 08/25/18 10:29 Dose: 50 mcg Documented by: Heparin Sodium (Porcine) (Heparin) 5,000 unit SUB-Q Q12HR [facility] Last Admin: 08/25/18 10:30 Dose: 5,000 unit Documented by: Hydrophilic Ointment (Vaseline Lip Therapy) 1 applic TP Q2HR PRN PRN Reason: Dry Lips Fentanyl Citrate (Fentanyl Drip Premix) 2,000 mcg in 100 mls @ 7.053 mls/hr IV TITR [facility]IS; Protocol Last Titration: 08/24/18 15:00 Dose: Infused Documented by: Midazolam HCl 100 mg/ Sodium (Chloride) 100 mls @ 2 mls/hr IV TITR [facility]; Pr otocol Last Titration: 08/24/18 18:21 Dose: 0 mg/hr, 0 mls/hr Documented by: Levetiracetam 750 mg/ Dextrose 107.5 mls @ 400 mls/hr IV Q12HR [facility] Last Admin: 08/25/18 10:23 Dose: 400 mls/hr Documented by: Cefazolin Sodium 2 gm/ Sodium (Chloride) 100 mls @ 200 mls/hr IV Q24HR [facility] Last Admin: 08/25/18 10:58 Dose: 200 mls/hr Documented by: Insulin Human Lispro (Humalog) 0 unit SUB-Q Q6HR [facility]; Protocol Last Admin: 08/25/18 12:27 Dose: 4 unit Documented by: Methylprednisolone Sodium Succinate (Solu-Medrol) 20 mg IV Q24HR [facility] Stop: 08/29/18 10:01 Midazolam HCl (Versed) 2 mg IV Q10MIN PRN PRN Reason: Sedation Last Admin: 08/21/18 14:52 Dose: 2 mg Documented by: Multi-Ingred Cream/Lotion/Oil/Oint (Artificial Tears Ophth Oint) 1 applic OU Q4HR PRN PRN Reason: Dry Eye(s) Ondansetron HCl (Zofran) 4 mg IV Q8H PRN PRN Reason: Nausea And Vomiting Simple Syrup (Simple Syrup) 15 ml FEEDTUBE PRN PRN PRN Reason: Hypoglycemia Simple Syrup (Simple Syrup) 30 ml FEEDTUBE PRN PRN PRN Reason: Hypoglycemia Sodium Bicarbonate (Sodium Bicarbonate) 325 mg FEEDTUBE PRN PRN PRN Reason: For Clogged Feeding Tube Sodium Chloride (Sodium Chloride Flush Syringe 10 Ml) 10 ml IV BID [facility] Last Admin: 08/24/18 10:45 Dose: 10 ml Documented by: Sodium Chloride (Sodium Chloride Flush Syringe 10 Ml) 10 ml IV PRN PRN PRN Reason: LINE FLUSH Review of Systems ROS unobtainable: due to endotracheal tube, due to mental status Exam Vital Signs Pulse Ox 84 08/21/18 03:56 Narrative exam: Gen: Awake and alert. Opens eyes spontaneously. Answers yes/no questions ENT: NGT in place, clamped CV: S1, S2+ Resp: even and unlabored Abd: soft, NT, ND. Well healed surgical scar. Incisional hernia, soft, easily reducible and nontender. Obese with large pannus. Ext: edema Results - Labs 08/24/18 10:10 08/25/18 05:57 Abnormal lab results 08/24/18 08/24/18 08/24/18 Range/Units 13:41 13:41 14:27 D-Dimer 1978.25 H (0-234) ng/mlDDU POC ABG pH (7.35-7.45) POC ABG pCO2 (35-45) Sodium 136 L (137-145) mmol/L Potassium 5.1 H (3.6-5.0) mmol/L Chloride 97.8 L (98-107) mmol/L BUN 90 H (9-20) mg/dL Creatinine 4.1 H (0.8-1.5) mg/dL Glucose 157 H (75-100) mg/dL POC Glucose (70-105) Calcium 8.0 L (8.4-10.2) mg/dL C-Reactive Protein 9.00 H (0.00-1.30) mg/dL NT-Pro-B Natriuret Pep (0-900) pg/mL 08/24/18 08/25/18 08/25/18 Range/Units 17:23 00:38 05:22 D-Dimer (0-234) ng/mlDDU POC ABG pH 7.238 L (7.35-7.45) POC ABG pCO2 58.2 H (35-45) Sodium (137-145) mmol/L Potassium (3.6-5.0) mmol/L Chloride (98-107) mmol/L BUN (9-20) mg/dL Creatinine (0.8-1.5) mg/dL Glucose (75-100) mg/dL POC Glucose 155 H 176 H (70-105) Calcium (8.4-10.2) mg/dL C-Reactive Protein (0.00-1.30) mg/dL NT-Pro-B Natriuret Pep (0-900) pg/mL 08/25/18 08/25/18 08/25/18 Range/Units 05:57 06:56 08:59 D-Dimer (0-234) ng/mlDDU POC ABG pH (7.35-7.45) POC ABG pCO2 (35-45) Sodium (137-145) mmol/L Potassium 5.4 H (3.6-5.0) mmol/L Chloride (98-107) mmol/L BUN 98 H (9-20) mg/dL Creatinine 4.3 H (0.8-1.5) mg/dL Glucose 217 H (75-100) mg/dL POC Glucose 247 H 235 H (70-105) Calcium 8.3 L (8.4-10.2) mg/dL C-Reactive Protein (0.00-1.30) mg/dL NT-Pro-B Natriuret Pep 17569 H (0-900) pg/mL 08/25/18 08/25/18 Range/Units 11:38 12:29 D-Dimer (0-234) ng/mlDDU POC ABG pH 7.348 L (7.35-7.45) POC ABG pCO2 48.6 H (35-45) Sodium (137-145) mmol/L Potassium (3.6-5.0) mmol/L Chloride (98-107) mmol/L BUN (9-20) mg/dL Creatinine (0.8-1.5) mg/dL Glucose (75-100) mg/dL POC Glucose 237 H (70-105) Calcium (8.4-10.2) mg/dL C-Reactive Protein (0.00-1.30) mg/dL NT-Pro-B Natriuret Pep (0-900) pg/mL Diabetes panel 08/24/18 08/25/18 Range/Units 14:27 05:57 Sodium 136 L 140 (137-145) mmol/L Potassium 5.1 H 5.4 H (3.6-5.0) mmol/L Chloride 97.8 L 98.3 (98-107) mmol/L Carbon Dioxide 22 22 (22-30) mmol/L BUN 90 H 98 H (9-20) mg/dL Creatinine 4.1 H 4.3 H (0.8-1.5) mg/dL Glucose 157 H 217 H (75-100) mg/dL Calcium 8.0 L 8.3 L (8.4-10.2) mg/dL Calcium panel 08/24/18 08/25/18 Range/Units 14:27 05:57 Calcium 8.0 L 8.3 L (8.4-10.2) mg/dL Pituitary panel 08/24/18 08/25/18 Range/Units 14:27 05:57 Sodium 136 L 140 (137-145) mmol/L Potassium 5.1 H 5.4 H (3.6-5.0) mmol/L Chloride 97.8 L 98.3 (98-107) mmol/L Carbon Dioxide 22 22 (22-30) mmol/L BUN 90 H 98 H (9-20) mg/dL Creatinine 4.1 H 4.3 H (0.8-1.5) mg/dL Glucose 157 H 217 H (75-100) mg/dL Calcium 8.0 L 8.3 L (8.4-10.2) mg/dL Adrenal panel 08/24/18 08/25/18 Range/Units 14:27 05:57 Sodium 136 L 140 (137-145) mmol/L Potassium 5.1 H 5.4 H (3.6-5.0) mmol/L Chloride 97.8 L 98.3 (98-107) mmol/L Carbon Dioxide 22 22 (22-30) mmol/L BUN 90 H 98 H (9-20) mg/dL Creatinine 4.1 H 4.3 H (0.8-1.5) mg/dL Glucose 157 H 217 H (75-100) mg/dL Calcium 8.0 L 8.3 L (8.4-10.2) mg/dL - Imaging Abdominal x-ray: report reviewed, image reviewed CT scan - abdomen: image reviewed CT scan - pelvis: image reviewed Assessment and Plan 73 yo M with 1. high TF residuals, r/o bowel obstruction 2. VDRF 3. CKD 4. COPD 5. morbid obesity Plan: CT scan abd/pel reviewed, report pending - bowel is unremarkable and contrast through most of the small intestine. No free air. Bowel is not distended. Fecalization of small bowel proximal to enterocolonic anastamosis. Colon with air and stool. Will await official read 1. Keep NGT to LIWS 2. add reglan IV 3. PPI 4. Vent management per ICU 5. patient for vas cath for initiation of HD 6. gently IVF 7. DVT ppx Thank you, please call with questions.
--- NOTE | 2018-08-25 15:05 | Vascular Lab Report ---
PROCEDURE: VL VENOUS DUPLEX LE BILAT TECHNIQUE: Grayscale and color and spectral doppler ultrasound imaging of the bilateral lower extrem ity venous system was performed. HISTORY: cardiac arrest; leg swelling COMPARISONS: None. FINDINGS: There is normal compression and color flow within the bilateral lower extremity venous systems. Hien l augmentation was seen. IMPRESSION: No evidence of deep venous thrombosis. This document is electronically signed by Zhanna Stevens., August 25 2018 03:03:14 PM ET
[2018-08-25] MEDS ORDERED: XYLOCAINE 1%/ EPI 1:100,000 INFILTRATI ONE (15:15)
[2018-08-25] MEDS ORDERED: VERSED ONE (15:22)
--- NOTE | 2018-08-25 15:45 | Cat Scan Report ---
PROCEDURE: CT ABDOMEN PELVIS WO CON TECHNIQUE: Possible small bowel obstruction HISTORY: possible sbo COMPARISONS: None FINDINGS: FINDINGS: Lower Lung hawkins: There is dense consolidation in both lower lobes suggesting atelectasis or pneumo meseret. Small bilateral pleural effusions are also present. The heart is enlarged. Upper Abdomen: The edge of the liver is diffusely nodular suggesting cirrhosis. No discrete liver le sions are identified. There appear to be multiple small calcified gallstones lying dependently in the gallbladder. The gallbladder is distended. The adrenal glands, and pancreas are unremarkable. The sp akua is enlarged measuring 14.6 cm otherwise unremarkable. Kidneys, Ureters and Urinary bladder: There is an intermediate density nodule measuring 2.3 cm proje cting from the renal cortex of the upper third of the right kidney. This is a density of 30 Hounsfiel d units. Kidneys and ureters are otherwise unremarkable. No other renal masses or calculi are seen. T here is no hydronephrosis or ureteral calculi. Madison catheter is present in the urinary bladder which is otherwise nearly empty and difficult to characterize. No gross abnormality is seen. Retroperitoneum: Atherosclerotic changes are seen in the abdominal aorta. No aneurysm is visualized. Nonspecific subcentimeter lymph nodes are seen in the retroperitoneum. No pathologically enlarged ly mph nodes are identified. Bowel: The right side of the colon appears to been previously resected. Small bowel colonic anastomo sis visualized right side of the abdomen which appears patent. I do not see evidence of bowel obstruc tion. There is small amount of ascites collected along the edges of the liver and spleen and minimall y in the leaves of the mesentery. There is also small amount of ascites in the lower pelvis posterior ly. Small amount of ascites is collecting in a small right inguinal hernia containing the ascites and a s mall amount of adipose tissue. No herniated loops of bowel are identified. A mesh is visualized in the anterior abdominal wall. No hernia is seen in this location. There is marked diffuse subcutaneous edema throughout the abdomen and to a lesser degree the pelvis a nd lower extremities. Reproductive organs: Prostate gland does not appear to be enlarged. Other: No acute bone abnormalities are identified. IMPRESSION: No evidence of bowel obstruction. Right; previously resected. Colonic small bowel anastomosis appears patent. Cirrhosis of the liver suspected. Cholelithiasis. Gallbladder is distended and otherwise unremarkable. If clinically indicated gallblad melania ultrasound could be obtained for further characterization. Small amount of ascites present in the abdomen and pelvis as described. Small bilateral pleural effusions are present. There is marked diffuse subcutaneous edema throughout the abdomen and to a lesser degree the pelvis a nd lower extremities. Anterior abdominal wall mesh present as described. Cardiomegaly. Mild splenomegaly. Madison catheter in place. Intermediate dense nodule renal cortex right kidney as described. This may represent hyperdense cysts . Solid nodule not excluded. Correlation with renal ultrasound suggested. Small right inguinal hernia present as described. . This document is electronically signed by Tee Lux MD., August 25 2018 03:43:20 PM ET
--- NOTE | 2018-08-25 15:53 | Progress Note ---
Assessment and Plan s/p Cardiopulmonary arrest with ROSC Acute on chronic hypoxemic respiratory failure on MVS Lactic acidosis Acute metabolic/respiratory acidosis Acute on chronic renal failure (multifactorial) Sepsis probably secondary to aspiration PNA AE-COPD Acute metabolic-toxic encephalopathy Morbid obesity NSTEMI- probably type 2 ischemia Type 2 DM h/o Liver disease h/o Colon CA Hyperkalemia LEFT TMJ JOINT DISLOCATION-POA - surgery evaluation ongoing re: ? bowel obstruction - to begin HD/UF for toxin and volume clearance - Dopplers negative but D-dimer elevated; will consider CTA as VQ not possible while intubated - continue brovana and pulmicort for severe COPD history / exacerbation (reduced JENELLE frequency) - non-oliguric - continue daily SATs and SBTs as tolerated (itrate sedation for RASS 0 to -1) - s/p EEG - neurology evaluation ongoing - Will need maxillo facial surgery for evaluation of TMJ dislocation - continue enteral nutrition with aspiration precautions...HOB >40 (begin reglan re: high residuals) - continue lung protective strategies - serial CXR and ABG acutely - VAP bundle addressed - continue supplemental oxygen to keep O2 sats >/= 88-90% - continue restrictive oxygen therapy acutely - continue bronchodilators with pulmonry hygiene per RT - continue systemic steroids with slow taper - continue accuchecks with glycemic control per SSI for target blood glucose <180mg/dL - Agitation management - Prevention of delirium, maintenance of sleep-wake cycle - Antibiotics per ID (currently on levofloxacin and vancomycin) - MSSA pneumonia and contact precautions stopped - Avoid nephrotoxic agents, adjust all antibiotics and medications for CrCL and GFR - VTE and Stress ulcer prophylaxis( Heparin/Famotidine) - Madison catheter in this critically ill patient with acute on chronic renal failure, requiring strict intake and output monitoring (Will assess daily, the need for ongoing Madison catheter) - continue other care per attending / other consultants .... care plan discussed at length with his daughter in room Discussed in ICU-IDT rounds CONDITION: CRITICAL PROGNOSIS: GUARDED CODE STATUS: FULL CODE The high probability of a clinically significant, sudden or life-threatening deterioration of the [respiratory, cardiovascular, renal, gastrointestinal, neurology] system(s) required my full and direct attention, intervention and personal management. The aggregate critical care time was [40 ] minutes without overlap. Time includes spent on; [x] Data Review and interpretation [x] Patient assessment and monitoring of vital signs [x] Documentation [x] Medication orders and management Subjective Date of service: 08/25/18 Principal diagnosis: s/p cardiac arrest; severe sepsis; acute hypoxemic- hypercapnic resp failure Interval history: Patient is seen today for: cardiopulmonary arrest; severe sepsis; acute hypoxemic-hypercapnic respiratory failure on MVS; edgar on ckd Seen and examined at bedside; 24hour events reviewed; nursing and respiratory care staff consulted; no adverse overnight events reported to me; resting peacefully in bed; seen by neurology; gone for CT Abd/Pelvis affter fecal ttype material was reported from NGT and also for vascath placement; AMS is persistent; daughter in room; no emesis or overt aspiration Objective Vital Signs - 12hr 08/25/18 08/25/18 08/25/18 04:00 04:01 05:01 Temperature 99.1 F Pulse Rate 79 93 H 96 H Pulse Rate [ Anterior Bilateral Throughout] Pulse Rate [ 84 From Monitor] Respiratory 18 15 10 L Rate Respiratory Rate [Anterior Bilateral Throughout] Blood Pressure 128/62 128/62 O2 Sat by Pulse 98 97 93 Oximetry 08/25/18 08/25/18 08/25/18 06:01 07:01 08:00 Temperature Pulse Rate 75 69 77 Pulse Rate [ Anterior Bilateral Throughout] Pulse Rate [ 72 From Monitor] Respiratory 12 20 22 Rate Respiratory Rate [Anterior Bilateral Throughout] Blood Pressure 128/62 128/62 128/62 O2 Sat by Pulse 99 97 100 Oximetry 08/25/18 08/25/18 08/25/18 08:01 08:04 08:20 Temperature Pulse Rate 82 Pulse Rate [ 75 80 Anterior Bilateral Throughout] Pulse Rate [ From Monitor] Respiratory 16 Rate Respiratory 22 21 Rate [Anterior Bilateral Throughout] Blood Pressure 128/62 O2 Sat by Pulse 100 Oximetry 08/25/18 08/25/18 08/25/18 09:01 10:01 11:01 Temperature Pulse Rate 76 80 79 Pulse Rate [ Anterior Bilateral Throughout] Pulse Rate [ From Monitor] Respiratory 22 23 17 Rate Respiratory Rate [Anterior Bilateral Throughout] Blood Pressure 128/62 160/69 165/79 O2 Sat by Pulse 99 97 98 Oximetry 08/25/18 08/25/18 08/25/18 11:32 12:00 12:01 Temperature Pulse Rate 78 72 78 Pulse Rate [ Anterior Bilateral Throughout] Pulse Rate [ 72 From Monitor] Respiratory 21 18 Rate Respiratory Rate [Anterior Bilateral Throughout] Blood Pressure 165/79 O2 Sat by Pulse 100 99 99 Oximetry 08/25/18 13:01 Temperature Pulse Rate 78 Pulse Rate [ Anterior Bilateral Throughout] Pulse Rate [ From Monitor] Respiratory 16 Rate Respiratory Rate [Anterior Bilateral Throughout] Blood Pressure 165/79 O2 Sat by Pulse 98 Oximetry Constitutional: lethargic, appears uncomfortable, other (morbidly obese, orally intubated, 7.5ETT at 24cm at the lip, no dys-synchrony) Eyes: non-icteric ENT: oropharynx moist, other (orally intubated, ETT 8, 24cm at the lip, OGT in place) Neck: supple, no JVD, other (short neck) Effort: mildly labored Ascultation: Bilateral: diminished breath sounds, rhonchi (coarse BS bilaterally) Percussion: Bilateral: not dull Cardiovascular: regular rate and rhythm, other (S1,S2, no murmurs, no gallops or rubs) Gastrointestinal: normoactive bowel sounds, soft, non-tender, non-distended, other (Madison catheter in place, minimal urine tea colored) Integumentary: normal Extremities: no cyanosis, no edema, pink and warm, pulses normal, no ischemia or petechiae Neurologic: non-focal exam (grossly), pupils equal and round, unable to assess Psychiatric: other (intubated, on fentanyl) CBC and BMP: 08/28/18 04:49 08/28/18 04:49 ABG, PT/INR, D-dimer: ABG POC ABG pH 7.348 (7.35-7.45) L 08/25/18 11:38 POC ABG pCO2 48.6 (35-45) H 08/25/18 11:38 POC ABG pO2 91 (80-105) 08/25/18 11:38 POC ABG HCO3 26.7 (22-26 mml/L) 08/25/18 11:38 POC ABG Total CO2 28 (23-27mmol/L) 08/25/18 11:38 POC ABG O2 Sat 96 08/25/18 11:38 PT/INR, D-dimer PT 20.1 Sec. (12.2-14.9) H 08/21/18 04:42 INR 1.76 (0.87-1.13) H 08/21/18 04:42 1978.25 ng/mlDDU (0-234) H 08/24/18 13:41 Abnormal lab findings: Abnormal Labs 08/21/18 08/21/18 08/21/18 04:42 04:42 04:42 WBC 19.1 H RBC 2.49 L Hgb 7.7 L Hct 24.5 L MCV 98 H RDW 17.7 H Plt Count Seg Neuts % (Manual) 84.0 H Lymphocytes % (Manual) 7.0 L Monocytes % (Manual) 9.0 H Nucleated RBC % Seg Neutrophils # Man 16.0 H Lymphocytes # (Manual) Monocytes # (Manual) 1.7 H PT 20.1 H INR 1.76 H D-Dimer POC ABG pH POC ABG pCO2 POC ABG pO2 Sodium Potassium Chloride Carbon Dioxide BUN Creatinine Glucose POC Glucose Lactic Acid Calcium Total Bilirubin AST ALT Total Creatine Kinase CK-MB (CK-2) CK-MB (CK-2) Rel Index Troponin T 0.032 H C-Reactive Protein NT-Pro-B Natriuret Pep Albumin LDL Cholesterol Direct 44 L Urine WBC (Auto) 08/21/18 08/21/18 08/21/18 04:42 04:42 04:42 WBC RBC Hgb Hct MCV RDW Plt Count Seg Neuts % (Manual) Lymphocytes % (Manual) Monocytes % (Manual) Nucleated RBC % Seg Neutrophils # Man Lymphocytes # (Manual) Monocytes # (Manual) PT INR D-Dimer POC ABG pH POC ABG pCO2 POC ABG pO2 Sodium Potassium 6.0 H Chloride Carbon Dioxide 15 L BUN 57 H Creatinine 4.3 H Glucose 111 H POC Glucose Lactic Acid 5.80 H* Calcium Total Bilirubin 1.80 H AST 212 H ALT 94 H Total Creatine Kinase CK-MB (CK-2) CK-MB (CK-2) Rel Index Troponin T C-Reactive Protein NT-Pro-B Natriuret Pep 28303 H Albumin 3.2 L LDL Cholesterol Direct Urine WBC (Auto) 08/21/18 08/21/18 08/21/18 05:08 05:58 05:58 WBC RBC Hgb Hct MCV RDW Plt Count Seg Neuts % (Manual) Lymphocytes % (Manual) Monocytes % (Manual) Nucleated RBC % Seg Neutrophils # Man Lymphocytes # (Manual) Monocytes # (Manual) PT INR D-Dimer POC ABG pH 7.164 L POC ABG pCO2 46.3 H POC ABG pO2 229 H Sodium Potassium Chloride Carbon Dioxide BUN Creatinine Glucose POC Glucose Lactic Acid 5.10 H* Calcium Total Bilirubin AST ALT Total Creatine Kinase CK-MB (CK-2) CK-MB (CK-2) Rel Index Troponin T 0.035 H C-Reactive Protein NT-Pro-B Natriuret Pep Albumin LDL Cholesterol Direct Urine WBC (Auto) 08/21/18 08/21/18 08/21/18 06:45 06:45 06:53 WBC RBC Hgb Hct MCV RDW Plt Count Seg Neuts % (Manual) Lymphocytes % (Manual) Monocytes % (Manual) Nucleated RBC % Seg Neutrophils # Man Lymphocytes # (Manual) Monocytes # (Manual) PT INR D-Dimer POC ABG pH 7.160 L POC ABG pCO2 46.8 H POC ABG pO2 Sodium Potassium Chloride Carbon Dioxide BUN Creatinine Glucose POC Glucose Lactic Acid 4.70 H* Calcium Total Bilirubin AST ALT Total Creatine Kinase 234 H CK-MB (CK-2) 9.1 H CK-MB (CK-2) Rel Index Troponin T 0.032 H C-Reactive Protein NT-Pro-B Natriuret Pep Albumin LDL Cholesterol Direct Urine WBC (Auto) 08/21/18 08/21/18 08/21/18 10:43 10:43 10:45 WBC RBC Hgb Hct MCV RDW Plt Count Seg Neuts % (Manual) Lymphocytes % (Manual) Monocytes % (Manual) Nucleated RBC % Seg Neutrophils # Man Lymphocytes # (Manual) Monocytes # (Manual) PT INR D-Dimer POC ABG pH POC ABG pCO2 POC ABG pO2 Sodium Potassium Chloride Carbon Dioxide 17 L BUN 59 H Creatinine 4.2 H Glucose POC Glucose Lactic Acid 3.70 H* Calcium Total Bilirubin AST ALT Total Creatine Kinase 222 H CK-MB (CK-2) 9.2 H CK-MB (CK-2) Rel Index 4.1 H Troponin T 0.044 H D C-Reactive Protein NT-Pro-B Natriuret Pep Albumin LDL Cholesterol Direct Urine WBC (Auto) 08/21/18 08/21/18 08/21/18 11:38 12:33 15:03 WBC RBC Hgb Hct MCV RDW Plt Count Seg Neuts % (Manual) Lymphocytes % (Manual) Monocytes % (Manual) Nucleated RBC % Seg Neutrophils # Man Lymphocytes # (Manual) Monocytes # (Manual) PT INR D-Dimer POC ABG pH 7.250 L POC ABG pCO2 POC ABG pO2 121 H Sodium Potassium Chloride Carbon Dioxide BUN Creatinine Glucose POC Glucose 129 H Lactic Acid Calcium Total Bilirubin AST ALT Total Creatine Kinase CK-MB (CK-2) CK-MB (CK-2) Rel Index Troponin T C-Reactive Protein NT-Pro-B Natriuret Pep Albumin LDL Cholesterol Direct Urine WBC (Auto) 13.0 H 08/21/18 08/22/18 08/22/18 15:47 00:01 04:27 WBC RBC Hgb Hct MCV RDW Plt Count Seg Neuts % (Manual) Lymphocytes % (Manual) Monocytes % (Manual) Nucleated RBC % Seg Neutrophils # Man Lymphocytes # (Manual) Monocytes # (Manual) PT INR D-Dimer POC ABG pH 7.457 H POC ABG pCO2 POC ABG pO2 117 H Sodium Potassium Chloride Carbon Dioxide BUN Creatinine Glucose POC Glucose 211 H Lactic Acid 2.70 H* Calcium Total Bilirubin AST ALT Total Creatine Kinase CK-MB (CK-2) CK-MB (CK-2) Rel Index Troponin T C-Reactive Protein NT-Pro-B Natriuret Pep Albumin LDL Cholesterol Direct Urine WBC (Auto) 08/22/18 08/22/18 08/22/18 05:46 06:10 06:10 WBC RBC 2.27 L Hgb 7.0 L Hct 21.2 L MCV RDW 16.8 H Plt Count 129 L Seg Neuts % (Manual) 95.0 H Lymphocytes % (Manual) 1.0 L Monocytes % (Manual) Nucleated RBC % 1.0 H Seg Neutrophils # Man 7.8 H Lymphocytes # (Manual) 0.1 L Monocytes # (Manual) PT INR D-Dimer POC ABG pH POC ABG pCO2 POC ABG pO2 Sodium Potassium Chloride Carbon Dioxide 20 L BUN 63 H Creatinine 3.9 H Glucose 205 H POC Glucose 223 H Lactic Acid Calcium Total Bilirubin AST ALT Total Creatine Kinase CK-MB (CK-2) CK-MB (CK-2) Rel Index Troponin T C-Reactive Protein NT-Pro-B Natriuret Pep Albumin LDL Cholesterol Direct Urine WBC (Auto) 08/22/18 08/22/18 08/22/18 06:10 12:57 16:21 WBC RBC Hgb Hct MCV RDW Plt Count Seg Neuts % (Manual) Lymphocytes % (Manual) Monocytes % (Manual) Nucleated RBC % Seg Neutrophils # Man Lymphocytes # (Manual) Monocytes # (Manual) PT INR D-Dimer POC ABG pH 7.477 H POC ABG pCO2 POC ABG pO2 Sodium Potassium Chloride Carbon Dioxide BUN Creatinine Glucose POC Glucose 166 H Lactic Acid Calcium Total Bilirubin AST ALT Total Creatine Kinase CK-MB (CK-2) CK-MB (CK-2) Rel Index Troponin T C-Reactive Protein 23.60 H NT-Pro-B Natriuret Pep Albumin LDL Cholesterol Direct Urine WBC (Auto) 08/22/18 08/22/18 08/23/18 17:41 23:42 04:38 WBC RBC Hgb Hct MCV RDW Plt Count Seg Neuts % (Manual) Lymphocytes % (Manual) Monocytes % (Manual) Nucleated RBC % Seg Neutrophils # Man Lymphocytes # (Manual) Monocytes # (Manual) PT INR D-Dimer POC ABG pH 7.249 L POC ABG pCO2 53.5 H POC ABG pO2 73 L Sodium Potassium Chloride Carbon Dioxide BUN Creatinine Glucose POC Glucose 131 H 168 H Lactic Acid Calcium Total Bilirubin AST ALT Total Creatine Kinase CK-MB (CK-2) CK-MB (CK-2) Rel Index Troponin T C-Reactive Protein NT-Pro-B Natriuret Pep Albumin LDL Cholesterol Direct Urine WBC (Auto) 08/23/18 08/23/18 08/23/18 04:52 04:52 04:52 WBC RBC 2.39 L Hgb 7.5 L Hct 22.8 L MCV 95 H RDW 17.6 H Plt Count Seg Neuts % (Manual) Lymphocytes % (Manual) Monocytes % (Manual) Nucleated RBC % Seg Neutrophils # Man Lymphocytes # (Manual) Monocytes # (Manual) PT INR D-Dimer POC ABG pH POC ABG pCO2 POC ABG pO2 Sodium Potassium 5.6 H 5.6 H Chloride Carbon Dioxide 21 L BUN 71 H 72 H Creatinine 4.1 H 4.0 H Glucose 141 H 140 H POC Glucose Lactic Acid Calcium 8.3 L 8.2 L Total Bilirubin AST 247 H ALT 220 H Total Creatine Kinase CK-MB (CK-2) CK-MB (CK-2) Rel Index Troponin T C-Reactive Protein NT-Pro-B Natriuret Pep Albumin 2.8 L LDL Cholesterol Direct Urine WBC (Auto) 08/23/18 08/23/18 08/23/18 05:50 08:38 12:21 WBC RBC Hgb Hct MCV RDW Plt Count Seg Neuts % (Manual) Lymphocytes % (Manual) Monocytes % (Manual) Nucleated RBC % Seg Neutrophils # Man Lymphocytes # (Manual) Monocytes # (Manual) PT INR D-Dimer POC ABG pH POC ABG pCO2 POC ABG pO2 Sodium Potassium Chloride Carbon Dioxide BUN Creatinine Glucose POC Glucose 160 H 177 H Lactic Acid Calcium Total Bilirubin AST ALT Total Creatine Kinase CK-MB (CK-2) CK-MB (CK-2) Rel Index Troponin T C-Reactive Protein NT-Pro-B Natriuret Pep 01315 H Albumin LDL Cholesterol Direct Urine WBC (Auto) 08/23/18 08/23/18 08/23/18 12:36 14:24 18:05 WBC RBC Hgb Hct MCV RDW Plt Count Seg Neuts % (Manual) Lymphocytes % (Manual) Monocytes % (Manual) Nucleated RBC % Seg Neutrophils # Man Lymphocytes # (Manual) Monocytes # (Manual) PT INR D-Dimer POC ABG pH 7.337 L POC ABG pCO2 POC ABG pO2 145 H Sodium 136 L Potassium 5.2 H Chloride Carbon Dioxide BUN 76 H Creatinine 4.2 H Glucose 158 H POC Glucose 169 H Lactic Acid Calcium 8.1 L Total Bilirubin AST ALT Total Creatine Kinase CK-MB (CK-2) CK-MB (CK-2) Rel Index Troponin T C-Reactive Protein NT-Pro-B Natriuret Pep Albumin LDL Cholesterol Direct Urine WBC (Auto) 08/23/18 08/23/18 08/24/18 22:43 23:42 05:16 WBC RBC Hgb Hct MCV RDW Plt Count Seg Neuts % (Manual) Lymphocytes % (Manual) Monocytes % (Manual) Nucleated RBC % Seg Neutrophils # Man Lymphocytes # (Manual) Monocytes # (Manual) PT INR D-Dimer POC ABG pH POC ABG pCO2 POC ABG pO2 Sodium 136 L Potassium 5.3 H 5.2 H Chloride 97.9 L Carbon Dioxide BUN 80 H 86 H Creatinine 4.0 H 4.3 H Glucose 164 H 202 H POC Glucose 183 H Lactic Acid Calcium 7.9 L Total Bilirubin AST ALT Total Creatine Kinase CK-MB (CK-2) CK-MB (CK-2) Rel Index Troponin T C-Reactive Protein NT-Pro-B Natriuret Pep Albumin LDL Cholesterol Direct Urine WBC (Auto) 08/24/18 08/24/18 08/24/18 05:21 05:29 10:10 WBC RBC 2.47 L Hgb 7.5 L Hct 23.3 L MCV RDW 17.5 H Plt Count 118 L Seg Neuts % (Manual) 92.0 H Lymphocytes % (Manual) 2.0 L Monocytes % (Manual) Nucleated RBC % Seg Neutrophils # Man 8.8 H Lymphocytes # (Manual) 0.2 L Monocytes # (Manual) PT INR D-Dimer POC ABG pH 7.243 L POC ABG pCO2 56.8 H POC ABG pO2 Sodium Potassium Chloride Carbon Dioxide BUN Creatinine Glucose POC Glucose 209 H Lactic Acid Calcium Total Bilirubin AST ALT Total Creatine Kinase CK-MB (CK-2) CK-MB (CK-2) Rel Index Troponin T C-Reactive Protein NT-Pro-B Natriuret Pep Albumin LDL Cholesterol Direct Urine WBC (Auto) 08/24/18 08/24/18 08/24/18 10:10 11:19 13:41 WBC RBC Hgb Hct MCV RDW Plt Count Seg Neuts % (Manual) Lymphocytes % (Manual) Monocytes % (Manual) Nucleated RBC % Seg Neutrophils # Man Lymphocytes # (Manual) Monocytes # (Manual) PT INR D-Dimer 1978.25 H POC ABG pH POC ABG pCO2 POC ABG pO2 Sodium Potassium Chloride Carbon Dioxide BUN Creatinine Glucose POC Glucose 212 H Lactic Acid Calcium Total Bilirubin AST ALT Total Creatine Kinase CK-MB (CK-2) CK-MB (CK-2) Rel Index Troponin T C-Reactive Protein NT-Pro-B Natriuret Pep 36605 H Albumin LDL Cholesterol Direct Urine WBC (Auto) 08/24/18 08/24/18 08/24/18 13:41 14:27 17:23 WBC RBC Hgb Hct MCV RDW Plt Count Seg Neuts % (Manual) Lymphocytes % (Manual) Monocytes % (Manual) Nucleated RBC % Seg Neutrophils # Man Lymphocytes # (Manual) Monocytes # (Manual) PT INR D-Dimer POC ABG pH POC ABG pCO2 POC ABG pO2 Sodium 136 L Potassium 5.1 H Chloride 97.8 L Carbon Dioxide BUN 90 H Creatinine 4.1 H Glucose 157 H POC Glucose 155 H Lactic Acid Calcium 8.0 L Total Bilirubin AST ALT Total Creatine Kinase CK-MB (CK-2) CK-MB (CK-2) Rel Index Troponin T C-Reactive Protein 9.00 H NT-Pro-B Natriuret Pep Albumin LDL Cholesterol Direct Urine WBC (Auto) 08/25/18 08/25/18 08/25/18 00:38 05:22 05:57 WBC RBC Hgb Hct MCV RDW Plt Count Seg Neuts % (Manual) Lymphocytes % (Manual) Monocytes % (Manual) Nucleated RBC % Seg Neutrophils # Man Lymphocytes # (Manual) Monocytes # (Manual) PT INR D-Dimer POC ABG pH 7.238 L POC ABG pCO2 58.2 H POC ABG pO2 Sodium Potassium 5.4 H Chloride Carbon Dioxide BUN 98 H Creatinine 4.3 H Glucose 217 H POC Glucose 176 H Lactic Acid Calcium 8.3 L Total Bilirubin AST ALT Total Creatine Kinase CK-MB (CK-2) CK-MB (CK-2) Rel Index Troponin T C-Reactive Protein NT-Pro-B Natriuret Pep 29218 H Albumin LDL Cholesterol Direct Urine WBC (Auto) 08/25/18 08/25/18 08/25/18 06:56 08:59 11:38 WBC RBC Hgb Hct MCV RDW Plt Count Seg Neuts % (Manual) Lymphocytes % (Manual) Monocytes % (Manual) Nucleated RBC % Seg Neutrophils # Man Lymphocytes # (Manual) Monocytes # (Manual) PT INR D-Dimer POC ABG pH 7.348 L POC ABG pCO2 48.6 H POC ABG pO2 Sodium Potassium Chloride Carbon Dioxide BUN Creatinine Glucose POC Glucose 247 H 235 H Lactic Acid Calcium Total Bilirubin AST ALT Total Creatine Kinase CK-MB (CK-2) CK-MB (CK-2) Rel Index Troponin T C-Reactive Protein NT-Pro-B Natriuret Pep Albumin LDL Cholesterol Direct Urine WBC (Auto) 08/25/18 12:29 WBC RBC Hgb Hct MCV RDW Plt Count Seg Neuts % (Manual) Lymphocytes % (Manual) Monocytes % (Manual) Nucleated RBC % Seg Neutrophils # Man Lymphocytes # (Manual) Monocytes # (Manual) PT INR D-Dimer POC ABG pH POC ABG pCO2 POC ABG pO2 Sodium Potassium Chloride Carbon Dioxide BUN Creatinine Glucose POC Glucose 237 H Lactic Acid Calcium Total Bilirubin AST ALT Total Creatine Kinase CK-MB (CK-2) CK-MB (CK-2) Rel Index Troponin T C-Reactive Protein NT-Pro-B Natriuret Pep Albumin LDL Cholesterol Direct Urine WBC (Auto) Chest x-ray: image reviewed (small lung volumes; ETT in good position) Allied health notes reviewed: nursing
--- NOTE | 2018-08-25 16:01 | Operative Report ---
Operative Report Operative Report: Permacath Placement Diagnostic Venography Date of procedure: 08/25/2018 Pre-operative diagnosis: ESRD Post-operative diagnosis: same Procedure name(s): 1. US guided puncture of the right internal jugular vein 2. Selective catheter placement in the superior vena cava with diagnostic venography 3. Ultrasound guided puncture of the right common femoral vein 4. Placement of 44 cm permacath for dialysis in the right common femoral vein Surgeon: Tee Waggoner MD, FACS [employer] Technician: none Anesthesia: local with sedation; Sedation start: 1442 Sedation end: 1542 Total sedation time: 60 minutes or 4 anesthesia units EBL: minimal Operative indication: Patient is a 73 yo man who requires hemodialysis access. Findings: Good flow from both ports. Catheter located at the proximal inferior vena cava. 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 The superior vena cava appears to drain into the coronary sinus. The inferior vena cava appears to be of standard anatomy. Procedure: The patient was placed on the table in the supine position. He was already on a fentanyl drip. He was given Versed for additional anesthesia. The area over the right neck and chest was prepped with ChloraPrep solution and draped in the usual sterile fashion. Ultrasound interrogation revealed that the right internal jugular vein was widely patent. Local anesthesia was used with 1% lidocaine plain. A small incision was made over the right internal jugular vein. A small incision was made over the shoulder for tunneling the catheter. Using micropuncture technique and real-time ultrasound guidance, the right internal jugular vein was cannulated. The guidewire appeared to run into resistance after he got past the needle. Fluoroscopy revealed that the microwire was folded back on itself in the upper portion of the chest. I tended to straighten it out using the micro-sheath but it did not seem to want to proceed down the superior vena cava. Angiography was done through the micro- sheath which showed that I was clearly in the right internal jugular vein. However, all flow appeared to go across the left innominate vein and then down the left side of the chest toward the right atrium. I selectively placed a diagnostic catheter into the lower portion of the vena cava and confirmed that this was indeed the true superior vena cava but was draining into the coronary sinus. There is no evidence of venous structures on the right side of the chest. During these procedures the patient had significant tachycardia any time a guidewire was placed near the right atrium. I felt that it would not be appropriate to place a catheter in this vena cava because of the potential for cardiac arrhythmias. The area over the right groin was prepped with ChloraPrep solution and draped in usual sterile fashion. One percent lidocaine plain was used for local anesthesia. I should note that I reviewed his CT scan recently and new that he had a normal inferior vena cava. Micro-puncture technique was used to enter the right common femoral vein. Ultimately a 6 Romanian sheath was placed. Venography was done through the sheath which showed that the vena cava coursed through the abdomen in a standard fashion. A stiff guidewire was placed. The peel-away sheath was placed over the stiff guidewire. A 44 cm catheter had already been tunneled through a small tunnel site over the right anterior thigh. The catheter was then placed to the peel-away sheath and it was removed. The catheter was noted to be at approximately the T11 or T12 space. The catheter aspirated easily and flushed easily. It was filled to its stated volume with 1000 unit per milliliter heparin. The catheter was sewn in place using 2-0 Prolene. The catheter exit site was closed using 4-0 Monocryl. The skin insertion site was closed with 4-0 Monocryl. I should note that the jugular vein site and the tunnel exit side up on the chest were both closed with 4-0 Monocryl as well. Sterile dressings were applied. The patient tolerated the procedure well. He was taken from the cardiac catheterization lab in stable condition.
[2018-08-25 17:16] LABS: Hematocrit 27.4 % (35.5-45.6); Hemoglobin 8.9 gm/dl (11.8-15.2); INR 1.27 (0.87-1.13); Mean Corpuscular HGB Conc 33 % (32-34); Mean Corpuscular Hemoglobin 31 pg (28-32); Mean Corpuscular Volume 95 fl (84-94); Platelet Count 119 K/mm3 (140-440); Red Cell Distribution Width 17.3 % (13.2-15.2)
[2018-08-25] MEDS: DULCOLAX PR SCH (17:20)
[2018-08-25] MEDS: REGLAN IV SCH (17:20)
[2018-08-25 17:54] LABS: Anisocytosis 1+; Band Neutrophils # (Manual) 0.3 K/mm3; Basophils % (Manual) 0 % (0.0-1.8); Eosinophils % (Manual) 0 % (0.0-4.3); Total Cells Counted 100
[2018-08-25 17:55] LABS: Hypochromasia 1+; Ovalocytes Few; Platelet Estimate Consistent w Auto; Poikilocytosis Few
[2018-08-26] MEDS: HumaLOG SUB-Q SCH ×4 (00:28→17:58)
--- NOTE | 2018-08-26 05:59 | XRay Report ---
PROCEDURE: XR CHEST 1V AP TECHNIQUE: Chest radiograph single view. HISTORY: follow up respiratory failure COMPARISONS: None . FINDINGS: Single frontal view of the chest was acquired and compared to the prior examination of August 25. Cardiomegaly. There is an endotracheal tube with tip in appropriate position. There is a gastric tube which extends in the stomach. There is mild pulmonary edema which has improved. On the prior examination there is some right basila r consolidation which has resolved. IMPRESSION: Mild pulmonary edema improved This document is electronically signed by Britton Mohr MD., August 26 2018 05:57:16 AM ET
[2018-08-26] MEDS: REGLAN IV SCH (06:00)
[2018-08-26 06:33] LABS: BUN/Creatinine Ratio 27; Blood Urea Nitrogen 106 mg/dL (9-20); Calcium 8.1 mg/dL (8.4-10.2); Hemolysis Index 3
--- NOTE | 2018-08-26 07:48 | Progress Note ---
Assessment and Plan -s/p Cardiopulmonary arrest with ROSC -Acute on chronic hypoxemic respiratory failure on MVS -Lactic acidosis -Acute metabolic/respiratory acidosis -Acute on chronic renal failure (multifactorial) -Sepsis probably secondary to aspiration PNA -AE-COPD -Acute metabolic-toxic encephalopathy -Morbid obesity -NSTEMI- probably type 2 ischemia -Type 2 DM -h/o Liver disease -h/o Colon CA -Hyperkalemia LEFT TMJ JOINT DISLOCATION-POA Daily SATs and SBTs Will need maxillo facial surgery for evaluation of TMJ dislocation NGT to LIS, will need to addresss alternate sources of nutrition in trace next 24- 48 hours Decrease set rate to 16, get ABG after HD. -Lung protective strategies -CXR and ABG in am -VAP bundle addressed -Supplemental oxygen to keep O2 sats 88-90% -Restrictive oxygen therapy -Bronchodilators -Continue steroids with taper -Accuchecks with glycemic control. Target blood glucose <180mg/dL -Agitation management -Titrate sedation to RAAS 0 to -1 -Prevention of delirium, maintenance of sleep-wake cycle -Antibiotics per ID -Avoid nephrotoxic agents, adjust all antibiotics and medications for CrCL and GFR -VTE and Stress ulcer prophylaxis( Heparin/Famotidine) -Madison catheter in this critically ill patient with acute on chronic renal failure, requiring strict intake and output monitoring. Will assess daily, the need for ongoing Madison catheter Discussed with RT/RN CONDITION: CRITICAL PROGNOSIS: GUARDED CODE STATUS: FULL CODE The high probability of a clinically significant, sudden or life-threatening deterioration of the [respiratory, cardiovascular, renal, gastrointestinal, neurology] system(s) required my full and direct attention, intervention and personal management. The aggregate critical care time was [35 ] minutes without overlap. Time includes spent on; [x] Data Review and interpretation [x] Patient assessment and monitoring of vital signs [x] Documentation [x] Medication orders and management Subjective Date of service: 08/26/18 Principal diagnosis: s/p cardiac arrest; severe sepsis; acute hypoxemic- hypercapnic resp failure Interval history: Patient is seen today for: cardiopulmonary arrest, severe sepsis, acute hypoxemic-hypercapnic respiratory failure on MVS, KHRIS on CKD on HD Seen and examined at bedside; 24hour events reviewed; nursing and respiratory care staff consulted; no adverse overnight events reported to me; Currently on HD via femoral vascath and tolerating it well. Awake and alert Remains on full MVS, ETT 7.5 tube at 26 cm at the lip 22/450/6/35% ABG 7.39/45/101/27 No vasopressor support; indwelling Madison- making good urine output Vitals, labs, medications, chart and imaging reviewed. Discussed with RT/RN Objective Vital Signs - 12hr 08/25/18 08/25/18 08/25/18 19:49 19:50 19:59 Temperature 98.2 F Pulse Rate 68 Pulse Rate [ 68 Anterior Bilateral Throughout] Pulse Rate [ From Monitor] Respiratory Rate Respiratory 22 Rate [Anterior Bilateral Throughout] Blood Pressure 125/48 O2 Sat by Pulse 100 Oximetry 08/25/18 08/25/18 08/25/18 20:00 20:21 21:00 Temperature Pulse Rate 68 87 Pulse Rate [ 70 Anterior Bilateral Throughout] Pulse Rate [ 83 From Monitor] Respiratory 23 Rate Respiratory 20 Rate [Anterior Bilateral Throughout] Blood Pressure 125/48 135/94 O2 Sat by Pulse 94 97 Oximetry 08/25/18 08/25/18 08/25/18 22:00 23:00 23:21 Temperature Pulse Rate 81 76 86 Pulse Rate [ Anterior Bilateral Throughout] Pulse Rate [ From Monitor] Respiratory Rate Respiratory Rate [Anterior Bilateral Throughout] Blood Pressure 125/46 117/47 117/47 O2 Sat by Pulse 99 96 98 Oximetry 08/25/18 08/26/18 08/26/18 23:38 00:00 01:00 Temperature 98.1 F Pulse Rate 81 91 H 92 H Pulse Rate [ Anterior Bilateral Throughout] Pulse Rate [ 101 H From Monitor] Respiratory 22 Rate Respiratory Rate [Anterior Bilateral Throughout] Blood Pressure 124/50 124/50 130/58 O2 Sat by Pulse 98 98 96 Oximetry 08/26/18 08/26/18 08/26/18 02:00 03:00 04:00 Temperature 98.5 F Pulse Rate 76 76 90 Pulse Rate [ Anterior Bilateral Throughout] Pulse Rate [ 101 H From Monitor] Respiratory 18 Rate Respiratory Rate [Anterior Bilateral Throughout] Blood Pressure 111/43 119/42 124/47 O2 Sat by Pulse 98 97 97 Oximetry 08/26/18 08/26/18 08/26/18 04:38 05:00 06:00 Temperature Pulse Rate 80 96 H 105 H Pulse Rate [ Anterior Bilateral Throughout] Pulse Rate [ From Monitor] Respiratory Rate Respiratory Rate [Anterior Bilateral Throughout] Blood Pressure 128/55 128/55 128/55 O2 Sat by Pulse 99 96 91 Oximetry 08/26/18 06:39 Temperature Pulse Rate Pulse Rate [ Anterior Bilateral Throughout] Pulse Rate [ 101 H From Monitor] Respiratory 22 Rate Respiratory Rate [Anterior Bilateral Throughout] Blood Pressure O2 Sat by Pulse 100 Oximetry Constitutional: alert, appears uncomfortable, other (morbidly obese, orally intubated, 7.5 ETT at 26cm at the lip, no dys-synchrony) Eyes: non-icteric ENT: oropharynx moist, other (orally intubated, ETT 8, 24cm at the lip, OGT in place) Neck: supple, no JVD, other (short neck) Effort: mildly labored Ascultation: Bilateral: diminished breath sounds, rhonchi (coarse BS bilateral ly) Percussion: Bilateral: not dull Cardiovascular: regular rate and rhythm, other (S1,S2, no murmurs, no gallops or rubs) Gastrointestinal: normoactive bowel sounds, soft, non-tender, non-distended, other (Madison catheter in place, clear urine) Integumentary: normal, other (right femoral HD catheter) Extremities: no cyanosis, no edema, pink and warm, pulses normal, no ischemia or petechiae Neurologic: non-focal exam (grossly), pupils equal and round, other (awake and alert) Psychiatric: other (intubated, on fentanyl) CBC and BMP: 08/25/18 16:43 08/26/18 05:53 ABG, PT/INR, D-dimer: ABG POC ABG pH 7.388 (7.35-7.45) 08/26/18 04:56 POC ABG pCO2 45.2 (35-45) H 08/26/18 04:56 POC ABG pO2 101 (80-105) 08/26/18 04:56 POC ABG HCO3 27.2 (22-26 mml/L) 08/26/18 04:56 POC ABG Total CO2 29 (23-27mmol/L) 08/26/18 04:56 POC ABG O2 Sat 98 08/26/18 04:56 PT/INR, D-dimer PT 15.6 Sec. (12.2-14.9) H 08/25/18 16:43 INR 1.27 (0.87-1.13) H 08/25/18 16:43 1978.25 ng/mlDDU (0-234) H 08/24/18 13:41 Abnormal lab findings: Abnormal Labs 08/21/18 08/21/18 08/21/18 04:42 04:42 04:42 WBC 19.1 H RBC 2.49 L Hgb 7.7 L Hct 24.5 L MCV 98 H RDW 17.7 H Plt Count Seg Neuts % (Manual) 84.0 H Lymphocytes % (Manual) 7.0 L Monocytes % (Manual) 9.0 H Nucleated RBC % Seg Neutrophils # Man 16.0 H Lymphocytes # (Manual) Monocytes # (Manual) 1.7 H PT 20.1 H INR 1.76 H D-Dimer POC ABG pH POC ABG pCO2 POC ABG pO2 Sodium Potassium Chloride Carbon Dioxide BUN Creatinine Glucose POC Glucose Lactic Acid Calcium Total Bilirubin AST ALT Total Creatine Kinase CK-MB (CK-2) CK-MB (CK-2) Rel Index Troponin T 0.032 H C-Reactive Protein NT-Pro-B Natriuret Pep Albumin LDL Cholesterol Direct 44 L Urine WBC (Auto) 08/21/18 08/21/18 08/21/18 04:42 04:42 04:42 WBC RBC Hgb Hct MCV RDW Plt Count Seg Neuts % (Manual) Lymphocytes % (Manual) Monocytes % (Manual) Nucleated RBC % Seg Neutrophils # Man Lymphocytes # (Manual) Monocytes # (Manual) PT INR D-Dimer POC ABG pH POC ABG pCO2 POC ABG pO2 Sodium Potassium 6.0 H Chloride Carbon Dioxide 15 L BUN 57 H Creatinine 4.3 H Glucose 111 H POC Glucose Lactic Acid 5.80 H* Calcium Total Bilirubin 1.80 H AST 212 H ALT 94 H Total Creatine Kinase CK-MB (CK-2) CK-MB (CK-2) Rel Index Troponin T C-Reactive Protein NT-Pro-B Natriuret Pep 67039 H Albumin 3.2 L LDL Cholesterol Direct Urine WBC (Auto) 08/21/18 08/21/18 08/21/18 05:08 05:58 05:58 WBC RBC Hgb Hct MCV RDW Plt Count Seg Neuts % (Manual) Lymphocytes % (Manual) Monocytes % (Manual) Nucleated RBC % Seg Neutrophils # Man Lymphocytes # (Manual) Monocytes # (Manual) PT INR D-Dimer POC ABG pH 7.164 L POC ABG pCO2 46.3 H POC ABG pO2 229 H Sodium Potassium Chloride Carbon Dioxide BUN Creatinine Glucose POC Glucose Lactic Acid 5.10 H* Calcium Total Bilirubin AST ALT Total Creatine Kinase CK-MB (CK-2) CK-MB (CK-2) Rel Index Troponin T 0.035 H C-Reactive Protein NT-Pro-B Natriuret Pep Albumin LDL Cholesterol Direct Urine WBC (Auto) 08/21/18 08/21/18 08/21/18 06:45 06:45 06:53 WBC RBC Hgb Hct MCV RDW Plt Count Seg Neuts % (Manual) Lymphocytes % (Manual) Monocytes % (Manual) Nucleated RBC % Seg Neutrophils # Man Lymphocytes # (Manual) Monocytes # (Manual) PT INR D-Dimer POC ABG pH 7.160 L POC ABG pCO2 46.8 H POC ABG pO2 Sodium Potassium Chloride Carbon Dioxide BUN Creatinine Glucose POC Glucose Lactic Acid 4.70 H* Calcium Total Bilirubin AST ALT Total Creatine Kinase 234 H CK-MB (CK-2) 9.1 H CK-MB (CK-2) Rel Index Troponin T 0.032 H C-Reactive Protein NT-Pro-B Natriuret Pep Albumin LDL Cholesterol Direct Urine WBC (Auto) 08/21/18 08/21/18 08/21/18 10:43 10:43 10:45 WBC RBC Hgb Hct MCV RDW Plt Count Seg Neuts % (Manual) Lymphocytes % (Manual) Monocytes % (Manual) Nucleated RBC % Seg Neutrophils # Man Lymphocytes # (Manual) Monocytes # (Manual) PT INR D-Dimer POC ABG pH POC ABG pCO2 POC ABG pO2 Sodium Potassium Chloride Carbon Dioxide 17 L BUN 59 H Creatinine 4.2 H Glucose POC Glucose Lactic Acid 3.70 H* Calcium Total Bilirubin AST ALT Total Creatine Kinase 222 H CK-MB (CK-2) 9.2 H CK-MB (CK-2) Rel Index 4.1 H Troponin T 0.044 H D C-Reactive Protein NT-Pro-B Natriuret Pep Albumin LDL Cholesterol Direct Urine WBC (Auto) 08/21/18 08/21/18 08/21/18 11:38 12:33 15:03 WBC RBC Hgb Hct MCV RDW Plt Count Seg Neuts % (Manual) Lymphocytes % (Manual) Monocytes % (Manual) Nucleated RBC % Seg Neutrophils # Man Lymphocytes # (Manual) Monocytes # (Manual) PT INR D-Dimer POC ABG pH 7.250 L POC ABG pCO2 POC ABG pO2 121 H Sodium Potassium Chloride Carbon Dioxide BUN Creatinine Glucose POC Glucose 129 H Lactic Acid Calcium Total Bilirubin AST ALT Total Creatine Kinase CK-MB (CK-2) CK-MB (CK-2) Rel Index Troponin T C-Reactive Protein NT-Pro-B Natriuret Pep Albumin LDL Cholesterol Direct Urine WBC (Auto) 13.0 H 08/21/18 08/22/18 08/22/18 15:47 00:01 04:27 WBC RBC Hgb Hct MCV RDW Plt Count Seg Neuts % (Manual) Lymphocytes % (Manual) Monocytes % (Manual) Nucleated RBC % Seg Neutrophils # Man Lymphocytes # (Manual) Monocytes # (Manual) PT INR D-Dimer POC ABG pH 7.457 H POC ABG pCO2 POC ABG pO2 117 H Sodium Potassium Chloride Carbon Dioxide BUN Creatinine Glucose POC Glucose 211 H Lactic Acid 2.70 H* Calcium Total Bilirubin AST ALT Total Creatine Kinase CK-MB (CK-2) CK-MB (CK-2) Rel Index Troponin T C-Reactive Protein NT-Pro-B Natriuret Pep Albumin LDL Cholesterol Direct Urine WBC (Auto) 08/22/18 08/22/18 08/22/18 05:46 06:10 06:10 WBC RBC 2.27 L Hgb 7.0 L Hct 21.2 L MCV RDW 16.8 H Plt Count 129 L Seg Neuts % (Manual) 95.0 H Lymphocytes % (Manual) 1.0 L Monocytes % (Manual) Nucleated RBC % 1.0 H Seg Neutrophils # Man 7.8 H Lymphocytes # (Manual) 0.1 L Monocytes # (Manual) PT INR D-Dimer POC ABG pH POC ABG pCO2 POC ABG pO2 Sodium Potassium Chloride Carbon Dioxide 20 L BUN 63 H Creatinine 3.9 H Glucose 205 H POC Glucose 223 H Lactic Acid Calcium Total Bilirubin AST ALT Total Creatine Kinase CK-MB (CK-2) CK-MB (CK-2) Rel Index Troponin T C-Reactive Protein NT-Pro-B Natriuret Pep Albumin LDL Cholesterol Direct Urine WBC (Auto) 08/22/18 08/22/18 08/22/18 06:10 12:57 16:21 WBC RBC Hgb Hct MCV RDW Plt Count Seg Neuts % (Manual) Lymphocytes % (Manual) Monocytes % (Manual) Nucleated RBC % Seg Neutrophils # Man Lymphocytes # (Manual) Monocytes # (Manual) PT INR D-Dimer POC ABG pH 7.477 H POC ABG pCO2 POC ABG pO2 Sodium Potassium Chloride Carbon Dioxide BUN Creatinine Glucose POC Glucose 166 H Lactic Acid Calcium Total Bilirubin AST ALT Total Creatine Kinase CK-MB (CK-2) CK-MB (CK-2) Rel Index Troponin T C-Reactive Protein 23.60 H NT-Pro-B Natriuret Pep Albumin LDL Cholesterol Direct Urine WBC (Auto) 08/22/18 08/22/18 08/23/18 17:41 23:42 04:38 WBC RBC Hgb Hct MCV RDW Plt Count Seg Neuts % (Manual) Lymphocytes % (Manual) Monocytes % (Manual) Nucleated RBC % Seg Neutrophils # Man Lymphocytes # (Manual) Monocytes # (Manual) PT INR D-Dimer POC ABG pH 7.249 L POC ABG pCO2 53.5 H POC ABG pO2 73 L Sodium Potassium Chloride Carbon Dioxide BUN Creatinine Glucose POC Glucose 131 H 168 H Lactic Acid Calcium Total Bilirubin AST ALT Total Creatine Kinase CK-MB (CK-2) CK-MB (CK-2) Rel Index Troponin T C-Reactive Protein NT-Pro-B Natriuret Pep Albumin LDL Cholesterol Direct Urine WBC (Auto) 08/23/18 08/23/18 08/23/18 04:52 04:52 04:52 WBC RBC 2.39 L Hgb 7.5 L Hct 22.8 L MCV 95 H RDW 17.6 H Plt Count Seg Neuts % (Manual) Lymphocytes % (Manual) Monocytes % (Manual) Nucleated RBC % Seg Neutrophils # Man Lymphocytes # (Manual) Monocytes # (Manual) PT INR D-Dimer POC ABG pH POC ABG pCO2 POC ABG pO2 Sodium Potassium 5.6 H 5.6 H Chloride Carbon Dioxide 21 L BUN 71 H 72 H Creatinine 4.1 H 4.0 H Glucose 141 H 140 H POC Glucose Lactic Acid Calcium 8.3 L 8.2 L Total Bilirubin AST 247 H ALT 220 H Total Creatine Kinase CK-MB (CK-2) CK-MB (CK-2) Rel Index Troponin T C-Reactive Protein NT-Pro-B Natriuret Pep Albumin 2.8 L LDL Cholesterol Direct Urine WBC (Auto) 08/23/18 08/23/18 08/23/18 05:50 08:38 12:21 WBC RBC Hgb Hct MCV RDW Plt Count Seg Neuts % (Manual) Lymphocytes % (Manual) Monocytes % (Manual) Nucleated RBC % Seg Neutrophils # Man Lymphocytes # (Manual) Monocytes # (Manual) PT INR D-Dimer POC ABG pH POC ABG pCO2 POC ABG pO2 Sodium Potassium Chloride Carbon Dioxide BUN Creatinine Glucose POC Glucose 160 H 177 H Lactic Acid Calcium Total Bilirubin AST ALT Total Creatine Kinase CK-MB (CK-2) CK-MB (CK-2) Rel Index Troponin T C-Reactive Protein NT-Pro-B Natriuret Pep 20517 H Albumin LDL Cholesterol Direct Urine WBC (Auto) 08/23/18 08/23/18 08/23/18 12:36 14:24 18:05 WBC RBC Hgb Hct MCV RDW Plt Count Seg Neuts % (Manual) Lymphocytes % (Manual) Monocytes % (Manual) Nucleated RBC % Seg Neutrophils # Man Lymphocytes # (Manual) Monocytes # (Manual) PT INR D-Dimer POC ABG pH 7.337 L POC ABG pCO2 POC ABG pO2 145 H Sodium 136 L Potassium 5.2 H Chloride Carbon Dioxide BUN 76 H Creatinine 4.2 H Glucose 158 H POC Glucose 169 H Lactic Acid Calcium 8.1 L Total Bilirubin AST ALT Total Creatine Kinase CK-MB (CK-2) CK-MB (CK-2) Rel Index Troponin T C-Reactive Protein NT-Pro-B Natriuret Pep Albumin LDL Cholesterol Direct Urine WBC (Auto) 08/23/18 08/23/18 08/24/18 22:43 23:42 05:16 WBC RBC Hgb Hct MCV RDW Plt Count Seg Neuts % (Manual) Lymphocytes % (Manual) Monocytes % (Manual) Nucleated RBC % Seg Neutrophils # Man Lymphocytes # (Manual) Monocytes # (Manual) PT INR D-Dimer POC ABG pH POC ABG pCO2 POC ABG pO2 Sodium 136 L Potassium 5.3 H 5.2 H Chloride 97.9 L Carbon Dioxide BUN 80 H 86 H Creatinine 4.0 H 4.3 H Glucose 164 H 202 H POC Glucose 183 H Lactic Acid Calcium 7.9 L Total Bilirubin AST ALT Total Creatine Kinase CK-MB (CK-2) CK-MB (CK-2) Rel Index Troponin T C-Reactive Protein NT-Pro-B Natriuret Pep Albumin LDL Cholesterol Direct Urine WBC (Auto) 08/24/18 08/24/18 08/24/18 05:21 05:29 10:10 WBC RBC 2.47 L Hgb 7.5 L Hct 23.3 L MCV RDW 17.5 H Plt Count 118 L Seg Neuts % (Manual) 92.0 H Lymphocytes % (Manual) 2.0 L Monocytes % (Manual) Nucleated RBC % Seg Neutrophils # Man 8.8 H Lymphocytes # (Manual) 0.2 L Monocytes # (Manual) PT INR D-Dimer POC ABG pH 7.243 L POC ABG pCO2 56.8 H POC ABG pO2 Sodium Potassium Chloride Carbon Dioxide BUN Creatinine Glucose POC Glucose 209 H Lactic Acid Calcium Total Bilirubin AST ALT Total Creatine Kinase CK-MB (CK-2) CK-MB (CK-2) Rel Index Troponin T C-Reactive Protein NT-Pro-B Natriuret Pep Albumin LDL Cholesterol Direct Urine WBC (Auto) 08/24/18 08/24/18 08/24/18 10:10 11:19 13:41 WBC RBC Hgb Hct MCV RDW Plt Count Seg Neuts % (Manual) Lymphocytes % (Manual) Monocytes % (Manual) Nucleated RBC % Seg Neutrophils # Man Lymphocytes # (Manual) Monocytes # (Manual) PT INR D-Dimer 1978.25 H POC ABG pH POC ABG pCO2 POC ABG pO2 Sodium Potassium Chloride Carbon Dioxide BUN Creatinine Glucose POC Glucose 212 H Lactic Acid Calcium Total Bilirubin AST ALT Total Creatine Kinase CK-MB (CK-2) CK-MB (CK-2) Rel Index Troponin T C-Reactive Protein NT-Pro-B Natriuret Pep 93901 H Albumin LDL Cholesterol Direct Urine WBC (Auto) 08/24/18 08/24/18 08/24/18 13:41 14:27 17:23 WBC RBC Hgb Hct MCV RDW Plt Count Seg Neuts % (Manual) Lymphocytes % (Manual) Monocytes % (Manual) Nucleated RBC % Seg Neutrophils # Man Lymphocytes # (Manual) Monocytes # (Manual) PT INR D-Dimer POC ABG pH POC ABG pCO2 POC ABG pO2 Sodium 136 L Potassium 5.1 H Chloride 97.8 L Carbon Dioxide BUN 90 H Creatinine 4.1 H Glucose 157 H POC Glucose 155 H Lactic Acid Calcium 8.0 L Total Bilirubin AST ALT Total Creatine Kinase CK-MB (CK-2) CK-MB (CK-2) Rel Index Troponin T C-Reactive Protein 9.00 H NT-Pro-B Natriuret Pep Albumin LDL Cholesterol Direct Urine WBC (Auto) 08/25/18 08/25/18 08/25/18 00:38 05:22 05:57 WBC RBC Hgb Hct MCV RDW Plt Count Seg Neuts % (Manual) Lymphocytes % (Manual) Monocytes % (Manual) Nucleated RBC % Seg Neutrophils # Man Lymphocytes # (Manual) Monocytes # (Manual) PT INR D-Dimer POC ABG pH 7.238 L POC ABG pCO2 58.2 H POC ABG pO2 Sodium Potassium 5.4 H Chloride Carbon Dioxide BUN 98 H Creatinine 4.3 H Glucose 217 H POC Glucose 176 H Lactic Acid Calcium 8.3 L Total Bilirubin AST ALT Total Creatine Kinase CK-MB (CK-2) CK-MB (CK-2) Rel Index Troponin T C-Reactive Protein NT-Pro-B Natriuret Pep 75882 H Albumin LDL Cholesterol Direct Urine WBC (Auto) 08/25/18 08/25/18 08/25/18 06:56 08:59 11:38 WBC RBC Hgb Hct MCV RDW Plt Count Seg Neuts % (Manual) Lymphocytes % (Manual) Monocytes % (Manual) Nucleated RBC % Seg Neutrophils # Man Lymphocytes # (Manual) Monocytes # (Manual) PT INR D-Dimer POC ABG pH 7.348 L POC ABG pCO2 48.6 H POC ABG pO2 Sodium Potassium Chloride Carbon Dioxide BUN Creatinine Glucose POC Glucose 247 H 235 H Lactic Acid Calcium Total Bilirubin AST ALT Total Creatine Kinase CK-MB (CK-2) CK-MB (CK-2) Rel Index Troponin T C-Reactive Protein NT-Pro-B Natriuret Pep Albumin LDL Cholesterol Direct Urine WBC (Auto) 08/25/18 08/25/18 08/25/18 12:29 16:43 16:43 WBC 14.7 H RBC 2.90 L Hgb 8.9 L Hct 27.4 L MCV 95 H RDW 17.3 H Plt Count 119 L Seg Neuts % (Manual) 94.0 H Lymphocytes % (Manual) 2.0 L Monocytes % (Manual) Nucleated RBC % Seg Neutrophils # Man 13.8 H Lymphocytes # (Manual) 0.3 L Monocytes # (Manual) PT 15.6 H INR 1.27 H D-Dimer POC ABG pH POC ABG pCO2 POC ABG pO2 Sodium Potassium Chloride Carbon Dioxide BUN Creatinine Glucose POC Glucose 237 H Lactic Acid Calcium Total Bilirubin AST ALT Total Creatine Kinase CK-MB (CK-2) CK-MB (CK-2) Rel Index Troponin T C-Reactive Protein NT-Pro-B Natriuret Pep Albumin LDL Cholesterol Direct Urine WBC (Auto) 08/25/18 08/26/18 08/26/18 17:22 00:16 04:56 WBC RBC Hgb Hct MCV RDW Plt Count Seg Neuts % (Manual) Lymphocytes % (Manual) Monocytes % (Manual) Nucleated RBC % Seg Neutrophils # Man Lymphocytes # (Manual) Monocytes # (Manual) PT INR D-Dimer POC ABG pH POC ABG pCO2 45.2 H POC ABG pO2 Sodium Potassium Chloride Carbon Dioxide BUN Creatinine Glucose POC Glucose 200 H 180 H Lactic Acid Calcium Total Bilirubin AST ALT Total Creatine Kinase CK-MB (CK-2) CK-MB (CK-2) Rel Index Troponin T C-Reactive Protein NT-Pro-B Natriuret Pep Albumin LDL Cholesterol Direct Urine WBC (Auto) 08/26/18 08/26/18 05:53 06:20 WBC RBC Hgb Hct MCV RDW Plt Count Seg Neuts % (Manual) Lymphocytes % (Manual) Monocytes % (Manual) Nucleated RBC % Seg Neutrophils # Man Lymphocytes # (Manual) Monocytes # (Manual) PT INR D-Dimer POC ABG pH POC ABG pCO2 POC ABG pO2 Sodium Potassium Chloride Carbon Dioxide BUN 106 H Creatinine 3.9 H Glucose 137 H POC Glucose 131 H Lactic Acid Calcium 8.1 L Total Bilirubin AST ALT Total Creatine Kinase CK-MB (CK-2) CK-MB (CK-2) Rel Index Troponin T C-Reactive Protein NT-Pro-B Natriuret Pep Albumin LDL Cholesterol Direct Urine WBC (Auto) Chest x-ray: image reviewed Allied health notes reviewed: RT
--- NOTE | 2018-08-26 08:47 | Progress Note ---
Assessment and Plan Assessment and plan: 73 -year-old man with a history of COPD, chronic kidney disease, liver disease, diabetes, GITA, colon cancer, comes to the emergency room with complaints of shortness of 4. Per the he was in the hospital in June for COPD. Probably discharge he had decreased oral intake, last time became more short of breath, hallucinating and then became combative, pulling off his CPAP. She called EMS, they had difficulty intubating the patient in the field, he was bagged, per EMS, when he arrived at the entrance of the hospital he lost his pulse. Patient was intubated in the emergency room, given 2 rounds of epi with ROSC. Status post hyperkalemic cocktail Contaminate Blood culture Acute respiratory failure s/p Cardiac arrest-POA Bowel illeus- Resolving Severe Sepsis- Resolved COPD exacerbation-POA Pneumonia, HCAP-PRESUMED GNR Acute Metabolic Encephalopathy LEFT TMJ JOINT DISLOCATION-POA Acute systolic Heart failure-POA Elevated D.DIMER Hyperkalemia Type 2 CA Anemia ?acute blood loss Thrombocytopenia Myoclonic seziures Hypoxic ischemic Encephalopathy CARDIOMYOPATHY KHRIS secondary to vasomotor nephropathy with possible Probably acute on chronic kidney disease 3 Abnormal cardiac enzymes Liver disease GITA colon cancer BY HX Morbidly obese Plan Continue supportive care- Remains intubated, off versed, still on fentanyl drip Continue on abx Surgery input noted Dialysis started, Femoral vas cath placed 08/26/18 No evidence of obstruction possible Ileus which may be resolving as patient had BM and NGT output is clearing, Tube feeds still on hold Continue to monitor plt, considering dvt prophy Right IJ permacath started for dialysis EEG ordered, Neurology consulted and EEG Started Doppler lower ext pending considering ID input noted. 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 The aggregate critical care time was [35 ] minutes without overlap. [x] Data Review and interpretation [x] Patient assessment and monitoring of vital signs [x] Documentation [x] Medication orders and management History Interval history: Patient seen and examined, remains on full ventilatory support. NGT output improved Hospitalist Physical - Physical exam Narrative exam: General Apperance: The patient lying in bed, on full mechanical ventilatory support. awakens HEENT: Normocephalic, atraumatic. Pupils equally round and reactive to light, unable to do EOM, no scleratic or JVD or thyromegaly or nodule. , no carotid bruit, mucous membranes moist, unable to examine oral cavity, ET tube in place Heart: S1-S2, regular is rhythm Lungs: Clear to auscultation bilaterally, breathing comfortable Abdomen: Positive bowel sounds, soft, nondistended, no organomegaly Extremities: No edema cyanosis clubbing Skin: no rash, nodule, warm and dry Neuro: awakens, follows command - Constitutional Vitals: Temp Pulse Resp BP Pulse Ox 99.2 F 101 H 22 128/55 100 08/26/18 08:00 08/26/18 06:39 08/26/18 06:39 08/26/18 06:00 08/26/18 06:39 General appearance: Present: other (intubated, chronically ill appearing) Results - Labs CBC & Chem 7: 08/28/18 04:49 08/28/18 04:49 Labs: Laboratory Last Values WBC 14.7 K/mm3 (4.5-11.0) H 08/25/18 16:43 RBC 2.90 M/mm3 (3.65-5.03) L 08/25/18 16:43 Hgb 8.9 gm/dl (11.8-15.2) L 08/25/18 16:43 Hct 27.4 % (35.5-45.6) L 08/25/18 16:43 MCV 95 fl (84-94) H 08/25/18 16:43 MCH 31 pg (28-32) 08/25/18 16:43 MCHC 33 % (32-34) 08/25/18 16:43 RDW 17.3 % (13.2-15.2) H 08/25/18 16:43 Plt Count 119 K/mm3 (140-440) L 08/25/18 16:43 Lymph % (Auto) Shared Services Manager 08/25/18 16:43 [place] % (Auto) Shared Services Manager 08/25/18 16:43 Eos % (Auto) Shared Services Manager 08/25/18 16:43 Baso % (Auto) Shared Services Manager 08/25/18 16:43 Lymph # Shared Services Manager 08/25/18 16:43 [place] # Shared Services Manager 08/25/18 16:43 Eos # Shared Services Manager 08/25/18 16:43 Baso # Shared Services Manager 08/25/18 16:43 Add Manual Diff Complete 08/25/18 16:43 Total Counted 100 08/25/18 16:43 Seg Neutrophils % Shared Services Manager 08/25/18 16:43 Seg Neuts % (Manual) 94.0 % (40.0-70.0) H 08/25/18 16:43 2.0 % 08/25/18 16:43 2.0 % (13.4-35.0) L 08/25/18 16:43 Reactive Lymphs % (Man) 0 % 08/25/18 16:43 2.0 % (0.0-7.3) 08/25/18 16:43 0 % (0.0-4.3) 08/25/18 16:43 0 % (0.0-1.8) 08/25/18 16:43 0 % 08/25/18 16:43 0 % 08/25/18 16:43 0 % 08/25/18 16:43 0 % 08/25/18 16:43 Nucleated RBC % Not Reportable 08/25/18 16:43 Seg Neutrophils # Shared Services Manager 08/25/18 16:43 Seg Neutrophils # Man 13.8 K/mm3 (1.8-7.7) H 08/25/18 16:43 Band Neutrophils # 0.3 K/mm3 08/25/18 16:43 0.3 K/mm3 (1.2-5.4) L 08/25/18 16:43 Abs React Lymphs (Man) 0.0 K/mm3 08/25/18 16:43 0.3 K/mm3 (0.0-0.8) 08/25/18 16:43 0.0 K/mm3 (0.0-0.4) 08/25/18 16:43 0.0 K/mm3 (0.0-0.1) 08/25/18 16:43 0.0 K/mm3 08/25/18 16:43 0.0 K/mm3 08/25/18 16:43 0.0 K/mm3 08/25/18 16:43 Blast Cells # 0.0 K/mm3 08/25/18 16:43 WBC Morphology Not Reportable 08/25/18 16:43 Hypersegmented Neuts Not Reportable 08/25/18 16:43 Hyposegmented Neuts Not Reportable 08/25/18 16:43 Hypogranular Neuts Not Reportable 08/25/18 16:43 Not Reportable 08/25/18 16:43 Not Reportable 08/25/18 16:43 Not Reportable 08/25/18 16:43 Not Reportable 08/25/18 16:43 Not Reportable 08/25/18 16:43 Not Reportable 08/25/18 16:43 Consistent w auto 08/25/18 16:43 Not Reportable 08/25/18 16:43 Plt Clumps, EDTA Not Reportable 08/25/18 16:43 Not Reportable 08/25/18 16:43 Not Reportable 08/25/18 16:43 Not Reportable 08/25/18 16:43 Plt Morphology Comment Not Reportable 08/25/18 16:43 RBC Morphology Not Reportable 08/25/18 16:43 Dimorphic RBCs Not Reportable 08/25/18 16:43 Not Reportable 08/25/18 16:43 1+ 08/25/18 16:43 Few 08/25/18 16:43 1+ 08/25/18 16:43 Not Reportable 08/25/18 16:43 Not Reportable 08/25/18 16:43 Not Reportable 08/25/18 16:43 Not Reportable 08/25/18 16:43 Not Reportable 08/25/18 16:43 Not Reportable 08/25/18 16:43 Not Reportable 08/25/18 16:43 Few 08/25/18 16:43 Not Reportable 08/25/18 16:43 Not Reportable 08/25/18 16:43 Not Reportable 08/25/18 16:43 Not Reportable 08/25/18 16:43 Not Reportable 08/25/18 16:43 Not Reportable 08/25/18 16:43 Not Reportable 08/25/18 16:43 Acanthocytes (Spur) Not Reportable 08/25/18 16:43 Rouleaux Not Reportable 08/25/18 16:43 Not Reportable 08/25/18 16:43 Not Reportable 08/25/18 16:43 Not Reportable 08/25/18 16:43 Not Reportable 08/25/18 16:43 Hem Pathologist Commnt No 08/25/18 16:43 PT 15.6 Sec. (12.2-14.9) H 08/25/18 16:43 INR 1.27 (0.87-1.13) H 08/25/18 16:43 APTT 30.8 Sec. (24.2-36.6) 08/21/18 04:42 1978.25 ng/mlDDU (0-234) H 08/24/18 13:41 POC ABG pH 7.388 (7.35-7.45) 08/26/18 04:56 POC ABG pCO2 45.2 (35-45) H 08/26/18 04:56 POC ABG pO2 101 (80-105) 08/26/18 04:56 POC ABG HCO3 27.2 (22-26 mml/L) 08/26/18 04:56 POC ABG Total CO2 29 (23-27mmol/L) 08/26/18 04:56 POC ABG O2 Sat 98 08/26/18 04:56 POC ABG Base Excess 2 ((-2) - (+3)mmol/L) 08/26/18 04:56 35 % 08/26/18 04:56 Sodium 141 mmol/L (137-145) 08/26/18 05:53 Potassium 5.0 mmol/L (3.6-5.0) 08/26/18 05:53 Chloride 98.6 mmol/L (98-107) 08/26/18 05:53 Carbon Dioxide 24 mmol/L (22-30) 08/26/18 05:53 23 mmol/L 08/26/18 05:53 BUN 106 mg/dL (9-20) H 08/26/18 05:53 3.9 mg/dL (0.8-1.5) H 08/26/18 05:53 Estimated GFR 15 ml/min 08/26/18 05:53 27 % 08/26/18 05:53 Glucose 137 mg/dL (75-100) H 08/26/18 05:53 POC Glucose 126 (70-105) H 08/26/18 08:48 Lactic Acid 1.30 mmol/L (0.7-2.0) 08/21/18 20:50 Calcium 8.1 mg/dL (8.4-10.2) L 08/26/18 05:53 Magnesium 2.30 mg/dL (1.7-2.3) 08/23/18 14:24 0.80 mg/dL (0.1-1.2) 08/23/18 04:52 AST 247 units/L (5-40) H 08/23/18 04:52 ALT 220 units/L (7-56) H 08/23/18 04:52 101 units/L (35-129) 08/23/18 04:52 222 units/L (55-170) H 08/21/18 10:45 CK-MB (CK-2) 9.2 ng/mL (0.0-4.0) H 08/21/18 10:45 CK-MB (CK-2) Rel Index 4.1 (0-4) H 08/21/18 10:45 0.044 ng/mL (0.00-0.029) H D 08/21/18 10:45 9.00 mg/dL (0.00-1.30) H 08/24/18 13:41 NT-Pro-B Natriuret Pep 90936 pg/mL (0-900) H 08/25/18 05:57 6.5 g/dL (6.3-8.2) 08/23/18 04:52 2.8 g/dL (3.9-5) L 08/23/18 04:52 0.8 % 08/23/18 04:52 Triglycerides 87 mg/dL (2-149) 08/21/18 04:42 Cholesterol 93 mg/dL (50-199) 08/21/18 04:42 44 mg/dL (50-130) L 08/21/18 04:42 41 mg/dL (40-59) 08/21/18 04:42 2.26 % 08/21/18 04:42 Yellow (Yellow) 08/21/18 15:03 Slightly-cloudy (Clear) 08/21/18 15:03 5.0 (5.0-7.0) 08/21/18 15:03 Ur Specific [place] 1.015 (1.003-1.030) 08/21/18 15:03 30 mg/dl mg/dL (Negative) 08/21/18 15:03 Neg mg/dL (Negative) 08/21/18 15:03 Neg mg/dL (Negative) 08/21/18 15:03 Mod (Negative) 08/21/18 15:03 Neg (Negative) 08/21/18 15:03 Neg (Negative) 08/21/18 15:03 < 2.0 mg/dL (<2.0) 08/21/18 15:03 Ur Leukocyte Esterase Tr (Negative) 08/21/18 15:03 13.0 /HPF (0.0-6.0) H 08/21/18 15:03 15.0 /HPF (0.0-6.0) 08/21/18 15:03 U Epithel Cells (Auto) 1.0 /HPF (0-13.0) 08/21/18 15:03 1+ /HPF (Negative) 08/21/18 15:03 Few /HPF 08/21/18 15:03 Random Vancomycin 10.5 ug/mL (0-40.0) 08/26/18 05:53 Active Medications - Current Medications Current Medications: Generic Name Dose Route Start Last Admin Trade Name Freq PRN Reason Stop Dose Admin Acetaminophen 650 mg 08/21/18 06:31 Tylenol PO Q4H PRN Pain MILD(1-3)/Fever >100.5/COOK Acetaminophen 650 mg 08/21/18 06:31 Tylenol MD Q4H PRN Pain MILD(1-3)/Fever >100.5/COOK Albuterol/Ipratropium 1 ampul 08/24/18 20:00 08/25/18 19:58 Duoneb *Not For Prn Use* IH 1 ampul BIDRT LUIS Administration Lipase/Protease/Amylase 1 each 08/22/18 09:25 Pancreamaris [place] 10,500 Unit FEEDTUBE PRN PRN For Clogged Feeding Tube Arformoterol Tartrate 15 mcg 08/24/18 20:00 08/25/18 19:58 Christiana Salinas IH 15 mcg Q12HRT LUIS Administration Bisacodyl 10 mg 08/25/18 16:00 08/25/18 17:20 Dulcolax MD 10 mg QDAY LUIS Administration Budesonide 0.5 mg 08/24/18 20:00 08/25/18 19:58 Pulmicort IH 0.5 mg Q12HRT LUIS Administration Dextrose 50 ml 08/21/18 06:48 D50w (25gm) Syringe IV PRN PRN Hypoglycemia Famotidine 20 mg 08/25/18 10:00 08/25/18 10:30 Pepcid IV 20 mg DAILY LUIS Administration Fentanyl 50 mcg 08/21/18 11:34 08/25/18 10:29 Sublimaze IV 50 mcg Q10MIN PRN Administration ANALGESIA Heparin Sodium (Porcine) 5,000 unit 08/22/18 10:00 08/25/18 21:26 Heparin SUB-Q 5,000 unit Q12HR LUIS Administration Hydrophilic Ointment 1 applic 08/21/18 11:34 Vaseline Lip Therapy TP Q2HR PRN Dry Lips Fentanyl Citrate 2,000 mcg in 100 mls @ 7.053 mls/hr 08/21/18 12:00 08/24/18 15:00 Fentanyl Drip Premix IV Infused TITR LUIS Titration Protocol 1 MCG/KG/HR Midazolam HCl 100 mg/ Sodium 100 mls @ 2 mls/hr 08/21/18 15:00 08/24/18 18:21 Chloride IV 0 mg/hr TITR LUIS 0 mls/hr Titration Protocol 2 MG/HR Levetiracetam 750 mg/ Dextrose 107.5 mls @ 400 mls/hr 08/24/18 22:00 08/25/18 21:26 IV 400 mls/hr Q12HR LUIS Administration Cefazolin Sodium 2 gm/ Sodium 100 mls @ 200 mls/hr 08/25/18 10:00 08/25/18 10:58 Chloride IV 200 mls/hr Q24HR LUIS Administration Insulin Human Lispro 0 unit 08/21/18 12:00 08/26/18 06:32 Humalog SUB-Q Not Given Q6HR LUIS Protocol Methylprednisolone Sodium Succinate 20 mg 08/26/18 10:00 Solu-Medrol IV 08/29/18 10:01 Q24HR LUIS Metoclopramide HCl 10 mg 08/25/18 18:00 08/25/18 17:20 Reglan IV 10 mg Q12H LUIS Administration Midazolam HCl 2 mg 08/21/18 14:32 08/21/18 14:52 Versed IV 2 mg Q10MIN PRN Administration Sedation Multi-Ingred Cream/Lotion/Oil/Oint 1 applic 08/21/18 11:34 Artificial Tears Ophth Oint OU Q4HR PRN Dry Eye(s) Ondansetron HCl 4 mg 08/21/18 06:31 Zofran IV Q8H PRN Nausea And Vomiting Polyethylene Glycol 17 gm 08/26/18 10:00 Miralax 3350 PO QDAY LUIS Simple Syrup 15 ml 08/22/18 09:25 Simple Syrup FEEDTUBE PRN PRN Hypoglycemia Simple Syrup 30 ml 08/22/18 09:25 Simple Syrup FEEDTUBE PRN PRN Hypoglycemia Sodium Bicarbonate 325 mg 08/22/18 09:25 Sodium Bicarbonate FEEDTUBE PRN PRN For Clogged Feeding Tube Sodium Chloride 10 ml 08/21/18 10:00 08/25/18 21:26 Sodium Chloride Flush Syringe 10 Ml IV 10 ml BID LUIS Administration Sodium Chloride 10 ml 08/21/18 06:31 Sodium Chloride Flush Syringe 10 Ml IV PRN PRN LINE FLUSH Nutrition/Malnutrition Assess - Dietary Evaluation Nutrition/Malnutrition Findings: Nutrition Notes Start: 08/21/18 16:58 Freq: Status: Active Protocol: Document 08/24/18 14:38 RM (Rec: 08/24/18 14:42 RM [email or web address]) Nutrition Notes Initial or Follow up Reassessment Current Diagnosis Acute Kidney Injury,CKD(stage I-IV),COPD,Diabetes,Sepsis Other Pertinent Diagnosis Hx colon CA, Pneu Current Diet NPO Labs/Tests K 5.2 Pertinent Medications Lasix Height 5 ft 6 in Weight 146.3 kg [place] Body Weight (kg) 64.54 BMI 52.0 Subjective/Other Information Observed Nepro infusing at goal rate. Per nurse last residual was 300 mls. Percent of energy/protein needs met: 95%/54% Burn Absent Trauma Absent #1 Nutrition Diagnosis Inadequate oral intake Diagnosis Progress(for reassessment Continues documentation) Is patient on ventilator? Yes Is Patient Ambulatory and/or Out of Bed No REE-([facility]-confined to bed) 2592.060 Kcal/Kg value to use for calculation 14 Approximate Energy Requirements Using 2048 kcal/Kg Calculation Used for Recommendations Kcal/kg Additional Notes Protein needs are 161g (2.5g/ kg IBW) Fluid Needs: 1 ml/kcal Nutrition Intervention Nutrition Support: Nepro at 45ml/hr 150ml q4h flush Kcal 1,944 Protein (gm) 87 Fluid (mL) 785 Goal #1 Meet at least 80% of kcal and protein needs Anticipated Discharge Needs: Unable to determine at this time Follow-Up By: 08/28/18 Additional Comments Follow for [facility] lab
[2018-08-26] MEDS: BROVANA NEBU IH SCH ×2 (08:50→20:44)
[2018-08-26] MEDS: DUONEB *Not for PRN Use IH SCH ×2 (08:50→20:44)
[2018-08-26] MEDS: PULMICORT IH SCH ×2 (08:50→20:44)
--- NOTE | 2018-08-26 10:25 | Progress Note ---
Assessment and Plan Impression: * KHRIS on ckd * s/p Cardiopulmonary arrest with ROSC * Acute on chronic hypoxemic respiratory failure on MVS * Lactic acidosis * Acute metabolic/respiratory acidosis * Sepsis probably secondary to aspiration PNA * COPD * Acute metabolic-toxic encephalopathy * NSTEMI * Type 2 DM Plan: * HD q MWF and prn, plan hd treatment today as well * uf as tolerated * strict i/os, avoid nephrotoxins * daily lytes * renal diet Subjective Date of service: 08/26/18 Principal diagnosis: s/p cardiac arrest; severe sepsis; acute hypoxemic- hypercapnic resp failure Interval history: resting well in bed today Objective - Exam Narrative Exam: General appearance: well-developed, well-nourished EENT: ATNC, PERRL Neck: no JVD Respiratory: Present: Rales, [place] Cardiology: regular, S1S2 Gastrointestinal: normal, normoactive bowel sounds Integumentary: no rash Neurologic: other (awake and alert. ) Psychiatric: agitated - Vital Signs Vital signs: Vital Signs - 12hr 08/25/18 08/25/18 08/25/18 23:00 23:21 23:38 Temperature Pulse Rate 76 86 81 Pulse Rate [ From Monitor] Respiratory Rate Blood Pressure 117/47 117/47 124/50 O2 Sat by Pulse 96 98 98 Oximetry O2 Sat by Pulse Oximetry [ Anterior Bilateral Throughout] O2 Sat by Pulse Oximetry [ Throughout] 08/26/18 08/26/18 08/26/18 00:00 01:00 02:00 Temperature 98.1 F Pulse Rate 91 H 92 H 76 Pulse Rate [ 101 H From Monitor] Respiratory 22 Rate Blood Pressure 124/50 130/58 111/43 O2 Sat by Pulse 98 96 98 Oximetry O2 Sat by Pulse Oximetry [ Anterior Bilateral Throughout] O2 Sat by Pulse Oximetry [ Throughout] 08/26/18 08/26/18 08/26/18 03:00 04:00 04:38 Temperature 98.5 F Pulse Rate 76 90 80 Pulse Rate [ 101 H From Monitor] Respiratory 18 Rate Blood Pressure 119/42 124/47 128/55 O2 Sat by Pulse 97 97 99 Oximetry O2 Sat by Pulse Oximetry [ Anterior Bilateral Throughout] O2 Sat by Pulse Oximetry [ Throughout] 08/26/18 08/26/18 08/26/18 05:00 06:00 06:39 Temperature Pulse Rate 96 H 105 H Pulse Rate [ 101 H From Monitor] Respiratory 22 Rate Blood Pressure 128/55 128/55 O2 Sat by Pulse 96 91 100 Oximetry O2 Sat by Pulse Oximetry [ Anterior Bilateral Throughout] O2 Sat by Pulse Oximetry [ Throughout] 08/26/18 08/26/18 08/26/18 08:00 08:45 08:50 Temperature 99.2 F Pulse Rate 91 H Pulse Rate [ From Monitor] Respiratory Rate Blood Pressure 161/71 O2 Sat by Pulse 97 Oximetry O2 Sat by Pulse 98 Oximetry [ Anterior Bilateral Throughout] O2 Sat by Pulse 98 Oximetry [ Throughout] 08/26/18 08/26/18 08/26/18 09:15 09:30 09:45 Temperature Pulse Rate 93 H 86 87 Pulse Rate [ From Monitor] Respiratory Rate Blood Pressure 160/76 161/71 146/61 O2 Sat by Pulse Oximetry O2 Sat by Pulse Oximetry [ Anterior Bilateral Throughout] O2 Sat by Pulse Oximetry [ Throughout] 08/26/18 08/26/18 10:00 10:15 Temperature Pulse Rate 93 H 96 H Pulse Rate [ From Monitor] Respiratory Rate Blood Pressure 132/69 152/72 O2 Sat by Pulse Oximetry O2 Sat by Pulse Oximetry [ Anterior Bilateral Throughout] O2 Sat by Pulse Oximetry [ Throughout] - Lab 08/25/18 16:43 08/26/18 05:53 Most recent lab results Calcium 8.1 mg/dL (8.4-10.2) L 08/26/18 05:53 Magnesium 2.30 mg/dL (1.7-2.3) 08/23/18 14:24 Medications & Allergies - Medications Allergies/Adverse Reactions: Allergies Penicillins Allergy (Verified 08/21/18 04:49) Unknown -cillins Allergy (Uncoded 08/21/18 04:49) Unknown Home Medications: Home Medications Medication Instructions Recorded Confirmed Last Taken Type AtorvaSTATin [Lipitor] 10 mg PO QHS 08/21/18 08/21/18 Unknown History Ferrous Sulfate [Feosol] 325 mg PO QDAY 08/21/18 08/21/18 Unknown History Melatonin [Melatonin 10MG CAP] 10 mg PO DAILY 08/21/18 08/21/18 Unknown History NIFEdipine [Nifedipine ER] 60 mg PO BID 08/21/18 08/21/18 Unknown History Sennosides Tab [Senokot] 1 tab PO HS 08/21/18 08/21/18 Unknown History Tamsulosin [Flomax] 2 cap PO HS 08/21/18 08/21/18 Unknown History Torsemide [Demadex] 20 mg PO DAILY 08/21/18 08/21/18 Unknown History Venlafaxine HCl [Venlafaxin ER] 75 mg PO QDAY 08/21/18 08/21/18 Unknown History buPROPion [Wellbutrin] 100 mg PO DAILY 08/21/18 08/21/18 Unknown History Active Medications: Generic Name Dose Route Start Last Admin Trade Name Freq PRN Reason Stop Dose Admin Acetaminophen 650 mg 08/21/18 06:31 Tylenol PO Q4H PRN Pain MILD(1-3)/Fever >100.5/COOK Acetaminophen 650 mg 08/21/18 06:31 Tylenol ME Q4H PRN Pain MILD(1-3)/Fever >100.5/COOK Albuterol/Ipratropium 1 ampul 08/24/18 20:00 08/26/18 08:50 Duoneb *Not For Prn Use* IH 1 ampul BIDRT LUIS Administration Lipase/Protease/Amylase 1 each 08/22/18 09:25 Pancreamaris [place] 10,500 Unit FEEDTUBE PRN PRN For Clogged Feeding Tube Arformoterol Tartrate 15 mcg 08/24/18 20:00 08/26/18 08:50 Brovana Nebu IH 15 mcg Q12HRT LUIS Administration Bisacodyl 10 mg 08/25/18 16:00 08/25/18 17:20 Dulcolax [place] 10 mg QDAY LUIS Administration Budesonide 0.5 mg 08/24/18 20:00 08/26/18 08:50 Pulmicort IH 0.5 mg Q12HRT LUIS Administration Dextrose 50 ml 08/21/18 06:48 D50w (25gm) Syringe IV PRN PRN Hypoglycemia Famotidine 20 mg 08/25/18 10:00 08/25/18 10:30 Pepcid IV 20 mg DAILY LUIS Administration Fentanyl 50 mcg 08/21/18 11:34 08/25/18 10:29 Sublimaze IV 50 mcg Q10MIN PRN Administration ANALGESIA Heparin Sodium (Porcine) 5,000 unit 08/22/18 10:00 08/25/18 21:26 Heparin SUB-Q 5,000 unit Q12HR LUIS Administration Hydrophilic Ointment 1 applic 08/21/18 11:34 Vaseline Lip Therapy TP Q2HR PRN Dry Lips Fentanyl Citrate 2,000 mcg in 100 mls @ 7.053 mls/hr 08/21/18 12:00 08/24/18 15:00 Fentanyl Drip Premix IV Infused TITR LUIS Titration Protocol 1 MCG/KG/HR Midazolam HCl 100 mg/ Sodium 100 mls @ 2 mls/hr 08/21/18 15:00 08/24/18 18:21 Chloride IV 0 mg/hr TITR LUIS 0 mls/hr Titration Protocol 2 MG/HR Levetiracetam 750 mg/ Dextrose 107.5 mls @ 400 mls/hr 08/24/18 22:00 08/25/18 21:26 IV 400 mls/hr Q12HR LUIS Administration Cefazolin Sodium 2 gm/ Sodium 100 mls @ 200 mls/hr 08/25/18 10:00 08/25/18 10:58 Chloride IV 200 mls/hr Q24HR LUIS Administration Insulin Human Lispro 0 unit 08/21/18 12:00 08/26/18 06:32 Humalog SUB-Q Not Given Q6HR [facility] Protocol Methylprednisolone Sodium Succinate 20 mg 08/26/18 10:00 Solu-Medrol IV 08/29/18 10:01 Q24HR [facility] Metoclopramide HCl 10 mg 08/25/18 18:00 08/25/18 17:20 Reglan IV 10 mg Q12H LUIS Administration Midazolam HCl 2 mg 08/21/18 14:32 08/21/18 14:52 Versed IV 2 mg Q10MIN PRN Administration Sedation Multi-Ingred Cream/Lotion/Oil/Oint 1 applic 08/21/18 11:34 Artificial Tears Ophth Oint OU Q4HR PRN Dry Eye(s) Ondansetron HCl 4 mg 08/21/18 06:31 Zofran IV Q8H PRN Nausea And Vomiting Polyethylene Glycol 17 gm 08/26/18 10:00 Miralax 3350 PO QDAY LUIS Simple Syrup 15 ml 08/22/18 09:25 Simple Syrup FEEDTUBE PRN PRN Hypoglycemia Simple Syrup 30 ml 08/22/18 09:25 Simple Syrup FEEDTUBE PRN PRN Hypoglycemia Sodium Bicarbonate 325 mg 08/22/18 09:25 Sodium Bicarbonate FEEDTUBE PRN PRN For Clogged Feeding Tube Sodium Chloride 10 ml 08/21/18 10:00 08/25/18 21:26 Sodium Chloride Flush Syringe 10 Ml IV 10 ml BID LUIS Administration Sodium Chloride 10 ml 08/21/18 06:31 Sodium Chloride Flush Syringe 10 Ml IV PRN PRN LINE FLUSH
[2018-08-26] MEDS: KEPPRA 750 MG in D5W 100 ML IV SCH ×2 (10:42→23:30)
[2018-08-26] MEDS: SOLU-Medrol IV SCH (10:42)
[2018-08-26] MEDS: MIRALAX 3350 PO SCH (10:43)
[2018-08-26] MEDS: HEPARIN SUB-Q SCH ×2 (10:43→23:32)
[2018-08-26] MEDS: PEPCID IV SCH (10:44)
[2018-08-26] MEDS: DULCOLAX PR SCH (10:45)
[2018-08-26] MEDS: SUBLIMAZE IV PRN (10:49)
--- NOTE | 2018-08-26 11:41 | Progress Note ---
Assessment and Plan Cardiac status currently stable. Will continue supportive care. The patient has been seen in conjunction with Dr. Glover, who agrees with assessment and plan. - Patient Problems (1) Cardiac arrest Current Visit: Yes Status: Acute (2) Acute HFrEF (heart failure with reduced ejection fraction) Current Visit: Yes Status: Acute (3) Acute on chronic respiratory failure Current Visit: Yes Status: Acute (4) Acute renal failure Current Visit: Yes Status: Acute (5) Altered mental status Current Visit: Yes Status: Acute (6) Anemia Current Visit: Yes Status: Acute (7) Bacteremia due to coagulase-negative Staphylococcus Current Visit: Yes Status: Acute (8) COPD (chronic obstructive pulmonary disease) Current Visit: Yes Status: Acute (9) Cardiomyopathy Current Visit: Yes Status: Acute (10) Colon cancer Current Visit: Yes Status: Acute (11) Diabetes Current Visit: Yes Status: Acute (12) Elevated liver enzymes Current Visit: Yes Status: Acute (13) Elevated troponin Current Visit: Yes Status: Acute (14) Lactic acidosis Current Visit: Yes Status: Acute (15) Sepsis Current Visit: Yes Status: Acute (16) GI bleed Current Visit: Yes Status: Suspected Subjective Date of service: 08/26/18 Principal diagnosis: s/p cardiac arrest; severe sepsis; acute hypoxemic- hypercapnic resp failure Interval history: Patient intubated, but awake and alert. Objective Last Vital Signs Temp 99.2 F 08/26/18 08:00 Pulse 103 H 08/26/18 11:15 Resp 22 08/26/18 06:39 BP 158/80 08/26/18 11:15 Pulse Ox 97 08/26/18 08:50 - Physical Examination General: Other (intubated, sedated) HEENT: Positive: PERRL Neck: Positive: neck supple Cardiac: Positive: Regular Rhythm Lungs: Positive: Ventilated Respirations Neuro: Positive: Other (intubated, but awake and alert) Abdomen: Positive: Other (Obese) /Rectal: Other ([place] in place. ) Skin: Negative: Rash Musculoskeletal: Decreased Range of Motion Extremities: Present: Other (Generalized edema). Absent: edema - Labs and Meds Coagulation 08/25/18 Range/Units 16:43 PT 15.6 H (12.2-14.9) Sec. INR 1.27 H (0.87-1.13) CBC 08/25/18 Range/Units 16:43 WBC 14.7 H (4.5-11.0) K/mm3 RBC 2.90 L (3.65-5.03) M/mm3 Hgb 8.9 L (11.8-15.2) gm/dl Hct 27.4 L (35.5-45.6) % Plt Count 119 L (140-440) K/mm3 Lymph # Char Filter Tank Tender Head Ceiba # Char Filter Tank Tender Head Eos # Char Filter Tank Tender Head Baso # Char Filter Tank Tender Head Comprehensive Metabolic Panel 08/26/18 Range/Units 05:53 Sodium 141 (137-145) mmol/L Potassium 5.0 (3.6-5.0) mmol/L Chloride 98.6 (98-107) mmol/L Carbon Dioxide 24 (22-30) mmol/L BUN 106 H (9-20) mg/dL Creatinine 3.9 H (0.8-1.5) mg/dL Glucose 137 H (75-100) mg/dL Calcium 8.1 L (8.4-10.2) mg/dL - Imaging and Cardiology EKG: image reviewed Echo: report reviewed ( EF 40-45%, LV mod dilated, pseudonormalization, RV severely dilated, RA mod dilated, mod TR, RVSP 47mmHg. ) - Telemetry EKG Rhythm: Sinus Rhythm - EKG Sinus rhythms and dysrhythmias: sinus rhythm AV and intraventricular conduction: right bundle branch block - Allied health notes Allied health notes reviewed: RT
[2018-08-26] MEDS ORDERED: PANCREAZE DR 10,500 UNIT FEEDTUBE PRN ×2 (12:07→13:46)
[2018-08-26] MEDS ORDERED: SIMPLE SYRUP FEEDTUBE PRN ×4 (12:07→13:46)
[2018-08-26] MEDS ORDERED: SODIUM BICARBONATE FEEDTUBE PRN ×2 (12:07→13:46)
--- NOTE | 2018-08-26 12:16 | Progress Note ---
Assessment and Plan 73 yo M with 1. high TF residuals, r/o bowel obstruction 2. VDRF 3. CKD 4. COPD 5. morbid obesity Plan: CT scan abd/pel - no obstruction 1. Ok to start TF at 100cc/hr - will adv very slowly to goal of 45cc/hr 2. continue reglan IV 3. PPI 4. Vent management per ICU 5. HD per nephro 6. ok to stop IVF 7. DVT ppx 8. bowel regimen Thank you, please call with questions. Subjective Date of service: 08/26/18 Narrative: Pt seen and examined. Has had 2 BMs since yesterday. NGT to LIWS. On HD now. Objective Vital Signs - 12hr 08/26/18 08/26/18 08/26/18 01:00 02:00 03:00 Temperature Pulse Rate 92 H 76 76 Pulse Rate [ From Monitor] Pulse Rate [ Right Dorsalis Pedis] Respiratory Rate Blood Pressure 130/58 111/43 119/42 O2 Sat by Pulse 96 98 97 Oximetry O2 Sat by Pulse Oximetry [ Anterior Bilateral Throughout] O2 Sat by Pulse Oximetry [ Throughout] 08/26/18 08/26/18 08/26/18 04:00 04:38 05:00 Temperature 98.5 F Pulse Rate 90 80 96 H Pulse Rate [ 101 H From Monitor] Pulse Rate [ Right Dorsalis Pedis] Respiratory 18 Rate Blood Pressure 124/47 128/55 128/55 O2 Sat by Pulse 97 99 96 Oximetry O2 Sat by Pulse Oximetry [ Anterior Bilateral Throughout] O2 Sat by Pulse Oximetry [ Throughout] 08/26/18 08/26/18 08/26/18 06:00 06:30 06:39 Temperature Pulse Rate 105 H 80 Pulse Rate [ 101 H From Monitor] Pulse Rate [ Right Dorsalis Pedis] Respiratory 22 Rate Blood Pressure 128/55 128/55 O2 Sat by Pulse 91 97 100 Oximetry O2 Sat by Pulse Oximetry [ Anterior Bilateral Throughout] O2 Sat by Pulse Oximetry [ Throughout] 08/26/18 08/26/18 08/26/18 06:46 07:00 07:16 Temperature Pulse Rate 85 80 76 Pulse Rate [ From Monitor] Pulse Rate [ Right Dorsalis Pedis] Respiratory Rate Blood Pressure 128/55 130/45 130/45 O2 Sat by Pulse 99 98 94 Oximetry O2 Sat by Pulse Oximetry [ Anterior Bilateral Throughout] O2 Sat by Pulse Oximetry [ Throughout] 08/26/18 08/26/18 08/26/18 07:30 07:46 08:00 Temperature 99.2 F Pulse Rate 84 80 76 Pulse Rate [ 101 H From Monitor] Pulse Rate [ 101 H Right Dorsalis Pedis] Respiratory 20 Rate Blood Pressure 130/45 130/45 130/45 O2 Sat by Pulse 93 99 98 Oximetry O2 Sat by Pulse Oximetry [ Anterior Bilateral Throughout] O2 Sat by Pulse Oximetry [ Throughout] 08/26/18 08/26/18 08/26/18 08:16 08:30 08:45 Temperature Pulse Rate 90 100 H Pulse Rate [ From Monitor] Pulse Rate [ Right Dorsalis Pedis] Respiratory Rate Blood Pressure 130/45 130/45 O2 Sat by Pulse 98 96 Oximetry O2 Sat by Pulse 98 Oximetry [ Anterior Bilateral Throughout] O2 Sat by Pulse 98 Oximetry [ Throughout] 08/26/18 08/26/18 08/26/18 08:46 08:50 09:00 Temperature Pulse Rate 96 H 91 H 94 H Pulse Rate [ From Monitor] Pulse Rate [ Right Dorsalis Pedis] Respiratory Rate Blood Pressure 116/98 161/71 116/98 O2 Sat by Pulse 98 97 96 Oximetry O2 Sat by Pulse Oximetry [ Anterior Bilateral Throughout] O2 Sat by Pulse Oximetry [ Throughout] 08/26/18 08/26/18 08/26/18 09:15 09:16 09:30 Temperature Pulse Rate 93 H 94 H 93 H Pulse Rate [ From Monitor] Pulse Rate [ Right Dorsalis Pedis] Respiratory Rate Blood Pressure 160/76 116/98 160/76 O2 Sat by Pulse 98 97 Oximetry O2 Sat by Pulse Oximetry [ Anterior Bilateral Throughout] O2 Sat by Pulse Oximetry [ Throughout] 08/26/18 08/26/18 08/26/18 09:45 09:46 10:00 Temperature Pulse Rate 87 86 87 Pulse Rate [ From Monitor] Pulse Rate [ Right Dorsalis Pedis] Respiratory Rate Blood Pressure 146/61 161/71 146/61 O2 Sat by Pulse 98 99 Oximetry O2 Sat by Pulse Oximetry [ Anterior Bilateral Throughout] O2 Sat by Pulse Oximetry [ Throughout] 08/26/18 08/26/18 08/26/18 10:15 10:16 10:30 Temperature Pulse Rate 96 H 101 H 107 H Pulse Rate [ From Monitor] Pulse Rate [ Right Dorsalis Pedis] Respiratory Rate Blood Pressure 152/72 152/72 157/77 O2 Sat by Pulse 97 97 Oximetry O2 Sat by Pulse Oximetry [ Anterior Bilateral Throughout] O2 Sat by Pulse Oximetry [ Throughout] 08/26/18 08/26/18 08/26/18 10:45 10:46 11:00 Temperature Pulse Rate 104 H 104 H 101 H Pulse Rate [ From Monitor] Pulse Rate [ Right Dorsalis Pedis] Respiratory Rate Blood Pressure 170/86 170/86 173/83 O2 Sat by Pulse 94 97 Oximetry O2 Sat by Pulse Oximetry [ Anterior Bilateral Throughout] O2 Sat by Pulse Oximetry [ Throughout] 08/26/18 08/26/18 08/26/18 11:15 11:30 11:45 Temperature Pulse Rate 102 H 105 H 91 H Pulse Rate [ From Monitor] Pulse Rate [ Right Dorsalis Pedis] Respiratory Rate Blood Pressure 158/80 156/81 176/76 O2 Sat by Pulse 96 96 Oximetry O2 Sat by Pulse Oximetry [ Anterior Bilateral Throughout] O2 Sat by Pulse Oximetry [ Throughout] 08/26/18 11:57 Temperature Pulse Rate 91 H Pulse Rate [ From Monitor] Pulse Rate [ Right Dorsalis Pedis] Respiratory Rate Blood Pressure 177/81 O2 Sat by Pulse Oximetry O2 Sat by Pulse Oximetry [ Anterior Bilateral Throughout] O2 Sat by Pulse Oximetry [ Throughout] - General physical appearance Narrative Exam: Gen: on vent. Eyes open spontaneously ENT; NGT with light brown drainage in canister CV: S1, S2+ resp; on vent Abd: soft, obese, NT, ND NGT - 800cc of light brown drainage in canister - unsure of time interval or when canister was changed - Labs 08/25/18 16:43 08/26/18 05:53 Diabetes panel 08/26/18 Range/Units 05:53 Sodium 141 (137-145) mmol/L Potassium 5.0 (3.6-5.0) mmol/L Chloride 98.6 (98-107) mmol/L Carbon Dioxide 24 (22-30) mmol/L BUN 106 H (9-20) mg/dL Creatinine 3.9 H (0.8-1.5) mg/dL Glucose 137 H (75-100) mg/dL Calcium 8.1 L (8.4-10.2) mg/dL Calcium panel 08/26/18 Range/Units 05:53 Calcium 8.1 L (8.4-10.2) mg/dL Pituitary panel 08/26/18 Range/Units 05:53 Sodium 141 (137-145) mmol/L Potassium 5.0 (3.6-5.0) mmol/L Chloride 98.6 (98-107) mmol/L Carbon Dioxide 24 (22-30) mmol/L BUN 106 H (9-20) mg/dL Creatinine 3.9 H (0.8-1.5) mg/dL Glucose 137 H (75-100) mg/dL Calcium 8.1 L (8.4-10.2) mg/dL Adrenal panel 08/26/18 Range/Units 05:53 Sodium 141 (137-145) mmol/L Potassium 5.0 (3.6-5.0) mmol/L Chloride 98.6 (98-107) mmol/L Carbon Dioxide 24 (22-30) mmol/L BUN 106 H (9-20) mg/dL Creatinine 3.9 H (0.8-1.5) mg/dL Glucose 137 H (75-100) mg/dL Calcium 8.1 L (8.4-10.2) mg/dL
[2018-08-26] MEDS ORDERED: NACL 0.9 (PRIMING MACHINE ONLY DIALYSIS) MC ONE (12:29)
[2018-08-26] MEDS: ceFAZolin 2 GM in NACL 0.9% 100 ML IV SCH (13:10)
[2018-08-26] MEDS ORDERED: MORPHINE ONE (14:17)
[2018-08-26] MEDS: APRESOLINE IV PRN (15:19)
--- NOTE | 2018-08-26 15:51 | Progress Note ---
Assessment and Plan Cultures: 08/21/2018 Blood culture: CoNS, Diphtheroids Sputum cultures 08/21/2018 MSSA Urine cultures 08/21/2018 no growth Assessment: 73 y/o male with a history of chronic kidney disease, liver disease, COPD, diabetes, GITA, colon cancer admitted on due to 4-day history of progressive shortness of breath and right neck/face edema and tenderness associated with poor po intake, patient became unresponsive en route. EMS unable to intubate. Pt bagged with 100%. Patient found in asystole at the ED receiving s/p CRP. 1) Severe Sepsis s/p arrest in the ED: better, leukocytosis resolved, lactate now normal. Etiology ? pneumonia. 2) Pneumonia: likely HCAP (recent admission to [facility] for MRSA cellulitis?). CXR shows bilateral infiltrate with airspace disease on RLL. Sputum cultures 08/21/2018 MSSA. 3) CoNS and diphtheroids bacteremia: likely contaminant. Blood cultures 08/21/2018 CoNS 2 of 4 bottles. TTE no vegetations, EF 40-45%. Repeat cultures negative. 4) Acute on CKD: renaly adjust meds 5) Elevated LFTs: from sepsis ? liver disease? 6) Acute encephalopathy: ? sepsis related 7) Penicillin allergy: ?unclear reaction. Tolerating Cefazolin. 8) NGT with feculent material: bowel obstruction ruled out per CT. Gen Surgery following with plans for tube feeding. Recommendations: - Continue with cefazolin IV, Day 2 - WBC up, probably from steroids - Vancomycin d/natalee MD [facility] C: [phone] O: [phone] F: [phone] Subjective Date of service: 08/26/18 Principal diagnosis: s/p cardiac arrest; severe sepsis; acute hypoxemic- hypercapnic resp failure Interval history: No fever. Awake. Restless. at bedside. Still intubated. Objective - Exam Narrative Exam: Physical Exam: Constitutional: awake, restless, intubated. Obese Head, Ears, Nose: Normocephalic, atraumatic. External ears, nose normal. NG tube + Eyes: Conjunctivae/corneas clear. No icterus. No ptosis. Neck: Supple, no meningeal signs Oral: intubated Cardiovascular: S1, S2 normal. Respiratory: Good air entry, clear to auscultation bilaterally GI: Soft, non-tender; bowel sounds normal. No peritoneal signs Musculoskeletal: No pedal edema, no cyanosis. b/l LE hyperpigmentation Skin: No rash or abscess Hem/Lymphatic: No palpable cervical or supraclavicular nodes. No lymphangitis Psych: restless Neurological: awake, intubated, on vent - Constitutional Vitals: Vital Signs Temp Pulse Resp BP Pulse Ox 98.7 F 98 H 23 188/86 96 08/26/18 12:00 08/26/18 15:19 08/26/18 12:00 08/26/18 15:19 08/26/18 13:45 Temperature -Last 24 Hours Temperature 98.7 F Temperature 98.7 F Temperature 99.2 F Temperature 98.5 F Temperature 98.1 F Temperature 98.2 F - Labs CBC & Chem 7: 08/25/18 16:43 08/26/18 05:53 Labs: Abnormal lab results 08/25/18 08/25/18 08/25/18 Range/Units 16:43 16:43 17:22 WBC 14.7 H (4.5-11.0) K/mm3 RBC 2.90 L (3.65-5.03) M/mm3 Hgb 8.9 L (11.8-15.2) gm/dl Hct 27.4 L (35.5-45.6) % MCV 95 H (84-94) fl RDW 17.3 H (13.2-15.2) % Plt Count 119 L (140-440) K/mm3 Seg Neuts % (Manual) 94.0 H (40.0-70.0) % Lymphocytes % (Manual) 2.0 L (13.4-35.0) % Seg Neutrophils # Man 13.8 H (1.8-7.7) K/mm3 Lymphocytes # (Manual) 0.3 L (1.2-5.4) K/mm3 PT 15.6 H (12.2-14.9) Sec. INR 1.27 H (0.87-1.13) POC ABG pCO2 (35-45) BUN (9-20) mg/dL Creatinine (0.8-1.5) mg/dL Glucose (75-100) mg/dL POC Glucose 200 H (70-105) Calcium (8.4-10.2) mg/dL NT-Pro-B Natriuret Pep (0-900) pg/mL 08/26/18 08/26/18 08/26/18 Range/Units 00:16 04:56 05:53 WBC (4.5-11.0) K/mm3 RBC (3.65-5.03) M/mm3 Hgb (11.8-15.2) gm/dl Hct (35.5-45.6) % MCV (84-94) fl RDW (13.2-15.2) % Plt Count (140-440) K/mm3 Seg Neuts % (Manual) (40.0-70.0) % Lymphocytes % (Manual) (13.4-35.0) % Seg Neutrophils # Man (1.8-7.7) K/mm3 Lymphocytes # (Manual) (1.2-5.4) K/mm3 PT (12.2-14.9) Sec. INR (0.87-1.13) POC ABG pCO2 45.2 H (35-45) BUN 106 H (9-20) mg/dL Creatinine 3.9 H (0.8-1.5) mg/dL Glucose 137 H (75-100) mg/dL POC Glucose 180 H (70-105) Calcium 8.1 L (8.4-10.2) mg/dL NT-Pro-B Natriuret Pep > 00578 H (0-900) pg/mL 08/26/18 08/26/18 08/26/18 Range/Units 06:20 08:48 11:39 WBC (4.5-11.0) K/mm3 RBC (3.65-5.03) M/mm3 Hgb (11.8-15.2) gm/dl Hct (35.5-45.6) % MCV (84-94) fl RDW (13.2-15.2) % Plt Count (140-440) K/mm3 Seg Neuts % (Manual) (40.0-70.0) % Lymphocytes % (Manual) (13.4-35.0) % Seg Neutrophils # Man (1.8-7.7) K/mm3 Lymphocytes # (Manual) (1.2-5.4) K/mm3 PT (12.2-14.9) Sec. INR (0.87-1.13) POC ABG pCO2 (35-45) BUN (9-20) mg/dL Creatinine (0.8-1.5) mg/dL Glucose (75-100) mg/dL POC Glucose 131 H 126 H 156 H (70-105) Calcium (8.4-10.2) mg/dL NT-Pro-B Natriuret Pep (0-900) pg/mL - Imaging and cardiology Chest x-ray: report reviewed, image reviewed (R basilar consolidation improving.)
[2018-08-26] MEDS ORDERED: SUBLIMAZE IV PRN (16:26)
[2018-08-26] MEDS: fentaNYL DRIP Premix 2,000 MCG/100 ML BAG IV SCH (16:48)
[2018-08-26] MEDS ORDERED: fentaNYL DRIP Premix 2,000 MCG/100 ML BAG IV SCH (17:00)
[2018-08-26] MEDS: DIPRIVAN 10 MG/ML 1,000 MG/100 ML BOTTLE IV SCH ×2 (17:20→23:26)
[2018-08-26] MEDS: SODIUM CHLORIDE FLUSH SYRINGE 10 ML IV SCH ×2 (23:30→23:33)
[2018-08-27] MEDS: fentaNYL DRIP Premix 2,000 MCG/100 ML BAG IV SCH ×3 (00:23→17:20)
[2018-08-27] MEDS: HumaLOG SUB-Q SCH ×2 (00:39→05:27)
[2018-08-27] MEDS: REGLAN IV SCH (05:27)
--- NOTE | 2018-08-27 07:58 | XRay Report ---
EXAM: XR CHEST 1V AP HISTORY: follow up respiratory failure TECHNIQUE: Portable CXR dated August 27, 2018 at 2:00 AM. COMPARISON: CXR dated August 26, 2018. FINDINGS: ET tube in situ with distal tip approximately 5.1 cm above the joby (adequate position). Nasogastri c tube with distal tip out of [id number] below the hemidiaphragms, presumably within the stomach. Clinical correlation is advised. There is evidence for cardiomegaly. The pulmonary vascularity and interstitial markings are diffusely prominent, consistent with mild CHF or volume overload in the appropriate clinical setting (with mil d interval progression of congestive changes since the previous exam); cannot rule out concomitant br onchitis or bronchopneumonia (especially in the right lower lobe) in the appropriate clinical setting . There is increased opacity in the right lung base with loss of definition of the hemidiaphragm in shanda ping with basilar atelectasis and/or small pleural effusion; cannot rule out a pneumonic infiltrate i n the appropriate clinical setting. Clinical correlation is advised. There is no pneumothorax seen. T he visualized bony structures are within normal limits. IMPRESSION: 1. Findings consistent with mild CHF or volume overload in the appropriate clinical setting (with mi ld interval progression of congestive changes since the previous exam); cannot rule out concomitant b ronchitis or bronchopneumonia (especially in the right lower lobe) in the appropriate clinical settin g. 2. Increased opacity in the right lung base with loss of definition of the hemidiaphragm in keeping with basilar atelectasis and/or small pleural effusion (new finding); cannot rule out a pneumonic inf iltrate in the appropriate clinical setting. 3. Recommend clinical correlation and appropriate followup evaluation as clinically warranted to ens ure complete clearance. This document is electronically signed by Courtney Leblanc MD., August 27 2018 07:57:02 AM ET
[2018-08-27] MEDS: DUONEB *Not for PRN Use IH SCH ×2 (08:16→19:43)
[2018-08-27] MEDS: BROVANA NEBU IH SCH ×2 (08:16→19:43)
[2018-08-27] MEDS: PULMICORT IH SCH ×2 (08:16→19:43)
--- NOTE | 2018-08-27 09:09 | Progress Note ---
Assessment and Plan Impression: * KHRIS on ckd * s/p Cardiopulmonary arrest with ROSC * Acute on chronic hypoxemic respiratory failure on MVS * Lactic acidosis * Acute metabolic/respiratory acidosis * Sepsis probably secondary to aspiration PNA * COPD * Acute metabolic-toxic encephalopathy * NSTEMI * Type 2 DM Plan: * HD q MWF and prn * antibiotics per primary team * uf as tolerated * strict i/os, avoid nephrotoxins * daily lytes * renal diet Subjective Date of service: 08/27/18 Principal diagnosis: s/p cardiac arrest; severe sepsis; acute hypoxemic- hypercapnic resp failure Interval history: resting well in bed today Objective - Exam Narrative Exam: General appearance: well-developed, well-nourished EENT: ATNC, PERRL Neck: no JVD Respiratory: Present: Rales, Ronchi Cardiology: regular, S1S2 Gastrointestinal: normal, normoactive bowel sounds Integumentary: no rash Neurologic: other (awake and alert. ) Psychiatric: agitated - Vital Signs Vital signs: Vital Signs - 12hr 08/26/18 08/26/18 08/26/18 21:15 21:30 21:45 Temperature Pulse Rate 69 69 64 Pulse Rate [ Anterior Bilateral Throughout] Pulse Rate [ From Monitor] Pulse Rate [ Right Dorsalis Pedis] Respiratory Rate Respiratory Rate [Anterior Bilateral Throughout] Blood Pressure 169/68 163/67 162/63 O2 Sat by Pulse 100 99 98 Oximetry 08/26/18 08/26/18 08/26/18 22:00 22:15 22:30 Temperature Pulse Rate 62 74 79 Pulse Rate [ Anterior Bilateral Throughout] Pulse Rate [ From Monitor] Pulse Rate [ Right Dorsalis Pedis] Respiratory 18 13 Rate Respiratory Rate [Anterior Bilateral Throughout] Blood Pressure 158/61 165/71 164/69 O2 Sat by Pulse 98 95 97 Oximetry 08/26/18 08/26/18 08/26/18 22:45 23:00 23:16 Temperature Pulse Rate 84 74 68 Pulse Rate [ Anterior Bilateral Throughout] Pulse Rate [ From Monitor] Pulse Rate [ Right Dorsalis Pedis] Respiratory 14 19 18 Rate Respiratory Rate [Anterior Bilateral Throughout] Blood Pressure 157/62 157/62 157/62 O2 Sat by Pulse 89 99 Oximetry 08/26/18 08/26/18 08/26/18 23:30 23:40 23:45 Temperature Pulse Rate 67 67 69 Pulse Rate [ Anterior Bilateral Throughout] Pulse Rate [ From Monitor] Pulse Rate [ Right Dorsalis Pedis] Respiratory 18 18 Rate Respiratory Rate [Anterior Bilateral Throughout] Blood Pressure 157/62 162/45 162/45 O2 Sat by Pulse 100 100 99 Oximetry 08/26/18 08/27/18 08/27/18 23:46 00:00 00:08 Temperature 99.6 F Pulse Rate 70 68 Pulse Rate [ Anterior Bilateral Throughout] Pulse Rate [ 70 From Monitor] Pulse Rate [ 70 Right Dorsalis Pedis] Respiratory 19 18 Rate Respiratory Rate [Anterior Bilateral Throughout] Blood Pressure 166/41 166/41 O2 Sat by Pulse 100 100 Oximetry 08/27/18 08/27/18 08/27/18 00:15 00:30 00:45 Temperature Pulse Rate 72 66 61 Pulse Rate [ Anterior Bilateral Throughout] Pulse Rate [ From Monitor] Pulse Rate [ Right Dorsalis Pedis] Respiratory 18 18 18 Rate Respiratory Rate [Anterior Bilateral Throughout] Blood Pressure 166/46 168/67 168/64 O2 Sat by Pulse 100 100 100 Oximetry 08/27/18 08/27/18 08/27/18 01:00 01:16 01:30 Temperature Pulse Rate 60 70 60 Pulse Rate [ Anterior Bilateral Throughout] Pulse Rate [ From Monitor] Pulse Rate [ Right Dorsalis Pedis] Respiratory 18 17 19 Rate Respiratory Rate [Anterior Bilateral Throughout] Blood Pressure 165/62 165/62 143/59 O2 Sat by Pulse 100 100 Oximetry 08/27/18 08/27/18 08/27/18 01:46 02:00 02:16 Temperature Pulse Rate 61 60 65 Pulse Rate [ Anterior Bilateral Throughout] Pulse Rate [ From Monitor] Pulse Rate [ Right Dorsalis Pedis] Respiratory 18 20 18 Rate Respiratory Rate [Anterior Bilateral Throughout] Blood Pressure 138/63 138/63 138/63 O2 Sat by Pulse 99 99 Oximetry 08/27/18 08/27/18 08/27/18 02:30 02:46 03:00 Temperature Pulse Rate 60 62 61 Pulse Rate [ Anterior Bilateral Throughout] Pulse Rate [ From Monitor] Pulse Rate [ Right Dorsalis Pedis] Respiratory 18 18 18 Rate Respiratory Rate [Anterior Bilateral Throughout] Blood Pressure 138/63 143/61 143/61 O2 Sat by Pulse 100 100 Oximetry 08/27/18 08/27/18 08/27/18 03:16 03:30 03:39 Temperature 99.1 F Pulse Rate 61 59 L Pulse Rate [ Anterior Bilateral Throughout] Pulse Rate [ From Monitor] Pulse Rate [ Right Dorsalis Pedis] Respiratory 18 18 Rate Respiratory Rate [Anterior Bilateral Throughout] Blood Pressure 141/62 141/62 O2 Sat by Pulse 100 Oximetry 08/27/18 08/27/18 08/27/18 03:46 04:00 04:16 Temperature Pulse Rate 61 61 76 Pulse Rate [ Anterior Bilateral Throughout] Pulse Rate [ 70 From Monitor] Pulse Rate [ 81 Right Dorsalis Pedis] Respiratory 18 18 17 Rate Respiratory Rate [Anterior Bilateral Throughout] Blood Pressure 146/61 146/61 151/66 O2 Sat by Pulse 100 97 97 Oximetry 08/27/18 08/27/18 08/27/18 04:30 04:45 04:46 Temperature Pulse Rate 81 77 76 Pulse Rate [ Anterior Bilateral Throughout] Pulse Rate [ From Monitor] Pulse Rate [ Right Dorsalis Pedis] Respiratory 18 14 Rate Respiratory Rate [Anterior Bilateral Throughout] Blood Pressure 151/66 151/66 O2 Sat by Pulse 96 96 94 Oximetry 08/27/18 08/27/18 08/27/18 05:00 05:16 05:30 Temperature Pulse Rate 77 82 81 Pulse Rate [ Anterior Bilateral Throughout] Pulse Rate [ From Monitor] Pulse Rate [ Right Dorsalis Pedis] Respiratory 18 19 18 Rate Respiratory Rate [Anterior Bilateral Throughout] Blood Pressure 151/66 145/61 148/61 O2 Sat by Pulse 95 94 96 Oximetry 08/27/18 08/27/18 08/27/18 05:46 06:00 08:00 Temperature 98.3 F Pulse Rate 75 64 82 Pulse Rate [ Anterior Bilateral Throughout] Pulse Rate [ From Monitor] Pulse Rate [ Right Dorsalis Pedis] Respiratory 20 18 Rate Respiratory Rate [Anterior Bilateral Throughout] Blood Pressure 152/62 148/61 148/62 O2 Sat by Pulse 96 97 97 Oximetry 08/27/18 08:20 Temperature Pulse Rate Pulse Rate [ 80 Anterior Bilateral Throughout] Pulse Rate [ From Monitor] Pulse Rate [ Right Dorsalis Pedis] Respiratory Rate Respiratory 20 Rate [Anterior Bilateral Throughout] Blood Pressure O2 Sat by Pulse Oximetry - Lab 08/25/18 16:43 08/26/18 05:53 Most recent lab results Calcium 8.1 mg/dL (8.4-10.2) L 08/26/18 05:53 Magnesium 2.30 mg/dL (1.7-2.3) 08/23/18 14:24 Medications & Allergies - Medications Allergies/Adverse Reactions: Allergies Penicillins Allergy (Verified 08/21/18 04:49) Unknown -cillins Allergy (Uncoded 08/21/18 04:49) Unknown Home Medications: Home Medications Medication Instructions Recorded Confirmed Last Taken Type AtorvaSTATin [Lipitor] 10 mg PO QHS 08/21/18 08/21/18 Unknown History Ferrous Sulfate [Feosol] 325 mg PO QDAY 08/21/18 08/21/18 Unknown History Melatonin [Melatonin 10MG CAP] 10 mg PO DAILY 08/21/18 08/21/18 Unknown History NIFEdipine [Nifedipine ER] 60 mg PO BID 08/21/18 08/21/18 Unknown History Sennosides Tab [Senokot] 1 tab PO 08/21/18 08/21/18 Unknown History Tamsulosin [Flomax] 2 cap PO HS 08/21/18 08/21/18 Unknown History Torsemide [Demadex] 20 mg PO DAILY 08/21/18 08/21/18 Unknown History Venlafaxine HCl [Venlafaxin ER] 75 mg PO QDAY 08/21/18 08/21/18 Unknown History buPROPion [Wellbutrin] 100 mg PO DAILY 08/21/18 08/21/18 Unknown History Active Medications: Generic Name Dose Route Start Last Admin Trade Name Freq PRN Reason Stop Dose Admin Acetaminophen 650 mg 08/21/18 06:31 Tylenol PO Q4H PRN Pain MILD(1-3)/Fever >100.5/COOK Acetaminophen 650 mg 08/21/18 06:31 Tylenol GA Q4H PRN Pain MILD(1-3)/Fever >100.5/COOK Albuterol/Ipratropium 1 ampul 08/24/18 20:00 08/27/18 08:16 Duoneb *Not For Prn Use* IH 1 ampul BIDRT LUIS Administration Lipase/Protease/Amylase 1 each 08/26/18 12:07 Taye [place] 10,500 Unit FEEDTUBE PRN PRN For Clogged Feeding Tube Arformoterol Tartrate 15 mcg 08/24/18 20:00 08/27/18 08:16 Brovana Elmau IH 15 mcg Q12HRT LUIS Administration Bisacodyl 10 mg 08/25/18 16:00 08/26/18 10:45 Dulcolax GA Not Given QDAY LUIS Budesonide 0.5 mg 08/24/18 20:00 08/27/18 08:16 Pulmicort IH 0.5 mg Q12HRT LUIS Administration Dextrose 50 ml 08/21/18 06:48 D50w (25gm) Syringe IV PRN PRN Hypoglycemia Famotidine 20 mg 08/25/18 10:00 08/26/18 10:44 Pepcid IV 20 mg DAILY LUIS Administration Fentanyl 50 mcg 08/26/18 16:26 Sublimaze IV Q10MIN PRN ANALGESIA Heparin Sodium (Porcine) 5,000 unit 08/22/18 10:00 08/26/18 23:32 Heparin SUB-Q 5,000 unit Q12HR LUIS Administration Hydralazine HCl 10 mg 08/26/18 15:08 08/26/18 15:19 Apresoline IV 10 mg Q6H PRN Administration Hypertension Hydrophilic Ointment 1 applic 08/21/18 11:34 Vaseline Lip Therapy TP Q2HR PRN Dry Lips Fentanyl Citrate 2,000 mcg in 100 mls @ 7.053 mls/hr 08/21/18 12:00 08/27/18 01:00 Fentanyl Drip Premix IV 1 mcg/kg/hr TITR LUIS 7.053 mls/hr Titration Protocol 1 MCG/KG/HR Midazolam HCl 100 mg/ Sodium 100 mls @ 2 mls/hr 08/21/18 15:00 08/24/18 18:21 Chloride IV 0 mg/hr TITR LUIS 0 mls/hr Titration Protocol 2 MG/HR Levetiracetam 750 mg/ Dextrose 107.5 mls @ 400 mls/hr 08/24/18 22:00 08/26/18 23:30 IV 400 mls/hr Q12HR LUIS Administration Cefazolin Sodium 2 gm/ Sodium 100 mls @ 200 mls/hr 08/25/18 10:00 08/26/18 1 3:10 Chloride IV 200 mls/hr Q24HR LUIS Administration Propofol 1,000 mg in 100 mls @ 4.389 mls/hr 08/26/18 18:00 08/27/18 01:00 Diprivan 10 Mg/Ml IV 10 mcg/kg/min TITR LUIS 8.778 mls/hr Titration Protocol 5 MCG/KG/MIN Insulin Human Lispro 0 unit 08/21/18 12:00 08/27/18 05:27 Humalog SUB-Q Not Given Q6HR [facility] Protocol Methylprednisolone Sodium Succinate 20 mg 08/26/18 10:00 08/26/18 10:42 Solu-Medrol IV 08/29/18 10:01 20 mg Q24HR LUIS Administration Metoclopramide HCl 10 mg 08/25/18 18:00 08/27/18 05:27 Reglan IV 10 mg Q12H LUIS Administration Midazolam HCl 2 mg 08/21/18 14:32 08/21/18 14:52 Versed IV 2 mg Q10MIN PRN Administration Sedation Morphine Sulfate 2 mg 08/26/18 14:24 Morphine IV Q6H PRN Pain, Moderate (4-6) Multi-Ingred Cream/Lotion/Oil/Oint 1 applic 08/21/18 11:34 Artificial Tears Ophth Oint OU Q4HR PRN Dry Eye(s) Ondansetron HCl 4 mg 08/21/18 06:31 Zofran IV Q8H PRN Nausea And Vomiting Polyethylene Glycol 17 gm 08/26/18 10:00 08/26/18 10:43 Miralax 3350 PO 17 gm QDAY LUIS Administration Simple Syrup 15 ml 08/26/18 12:07 Simple Syrup FEEDTUBE PRN PRN Hypoglycemia Simple Syrup 30 ml 08/26/18 12:07 Simple Syrup FEEDTUBE PRN PRN Hypoglycemia Sodium Bicarbonate 325 mg 08/26/18 12:07 Sodium Bicarbonate FEEDTUBE PRN PRN For Clogged Feeding Tube Sodium Chloride 10 ml 08/21/18 10:00 08/26/18 23:33 Sodium Chloride Flush Syringe 10 Ml IV 10 ml BID LUIS Administration Sodium Chloride 10 ml 08/21/18 06:31 Sodium Chloride Flush Syringe 10 Ml IV PRN PRN LINE FLUSH
--- NOTE | 2018-08-27 09:30 | Progress Note ---
Assessment and Plan -s/p Cardiopulmonary arrest with ROSC -Acute on chronic hypoxemic respiratory failure on MVS -Lactic acidosis -Acute metabolic/respiratory acidosis -Acute on chronic renal failure (multifactorial) -Sepsis probably secondary to aspiration PNA -AE-COPD -Acute metabolic-toxic encephalopathy -Morbid obesity -NSTEMI- probably type 2 ischemia -Type 2 DM -h/o Liver disease -h/o Colon CA -Hyperkalemia LEFT TMJ JOINT DISLOCATION-POA Daily SATs and SBTs Will need maxillo facial surgery for evaluation of TMJ dislocation NGT to LIS, will need to addresss alternate sources of nutrition in trace next 24- 48 hours Decrease set rate to 16, get ABG after HD. -Lung protective strategies -CXR and ABG in am -VAP bundle addressed -Supplemental oxygen to keep O2 sats 88-90% -Restrictive oxygen therapy -Bronchodilators -Continue steroids with taper -Accuchecks with glycemic control. Target blood glucose <180mg/dL -Agitation management -Titrate sedation to RAAS 0 to -1 -Prevention of delirium, maintenance of sleep-wake cycle -Antibiotics per ID -Avoid nephrotoxic agents, adjust all antibiotics and medications for CrCL and GFR -VTE and Stress ulcer prophylaxis( Heparin/Famotidine) -Madison catheter in this critically ill patient with acute on chronic renal failure, requiring strict intake and output monitoring. Will assess daily, the need for ongoing Madison catheter Discussed with RT/RN Discussed with his at the bedside, answered all her questions. Continue liberation trials as tolerated, hopeful that he can be liberated from MVS, without a need for trachesotomy. CONDITION: CRITICAL PROGNOSIS: GUARDED CODE STATUS: FULL CODE The high probability of a clinically significant, sudden or life-threatening deterioration of the [respiratory, cardiovascular, renal, gastrointestinal, neurology] system(s) required my full and direct attention, intervention and personal management. The aggregate critical care time was [35 ] minutes without overlap. Time includes spent on; [x] Data Review and interpretation [x] Patient assessment and monitoring of vital signs [x] Documentation [x] Medication orders and management Subjective Date of service: 08/27/18 Principal diagnosis: s/p cardiac arrest; severe sepsis; acute hypoxemic- hypercapnic resp failure Interval history: Patient is seen today for: cardiopulmonary arrest, severe sepsis, acute hypoxemic-hypercapnic respiratory failure on MVS, KHRIS on CKD on HD Seen and examined at bedside; 24hour events reviewed; nursing and respiratory care staff consulted; no adverse overnight events reported to me; s/p HD yesterday via femoral vascath and toleratedit well. Awake and alert, obeying simple commands Was on Propofol and fentanyl , off for SAT Remains on full MVS, ETT 7.5 tube at 26 cm at the lip 22/450/6/35% ABG 7.39/45/101/27 No vasopressor support; indwelling Madison- making good urine output Vitals, labs, medications, chart and imaging reviewed. Discussed with RT/RN Objective Vital Signs - 12hr 08/26/18 08/26/18 08/26/18 21:45 22:00 22:15 Temperature Pulse Rate 64 62 74 Pulse Rate [ Anterior Bilateral Throughout] Pulse Rate [ From Monitor] Pulse Rate [ Right Dorsalis Pedis] Respiratory 18 Rate Respiratory Rate [Anterior Bilateral Throughout] Blood Pressure 162/63 158/61 165/71 O2 Sat by Pulse 98 98 95 Oximetry 08/26/18 08/26/18 08/26/18 22:30 22:45 23:00 Temperature Pulse Rate 79 84 74 Pulse Rate [ Anterior Bilateral Throughout] Pulse Rate [ From Monitor] Pulse Rate [ Right Dorsalis Pedis] Respiratory 13 14 19 Rate Respiratory Rate [Anterior Bilateral Throughout] Blood Pressure 164/69 157/62 157/62 O2 Sat by Pulse 97 89 99 Oximetry 08/26/18 08/26/18 08/26/18 23:16 23:30 23:40 Temperature Pulse Rate 68 67 67 Pulse Rate [ Anterior Bilateral Throughout] Pulse Rate [ From Monitor] Pulse Rate [ Right Dorsalis Pedis] Respiratory 18 18 Rate Respiratory Rate [Anterior Bilateral Throughout] Blood Pressure 157/62 157/62 162/45 O2 Sat by Pulse 100 100 Oximetry 08/26/18 08/26/18 08/27/18 23:45 23:46 00:00 Temperature 99.6 F Pulse Rate 69 70 Pulse Rate [ Anterior Bilateral Throughout] Pulse Rate [ 70 From Monitor] Pulse Rate [ 70 Right Dorsalis Pedis] Respiratory 18 19 Rate Respiratory Rate [Anterior Bilateral Throughout] Blood Pressure 162/45 166/41 O2 Sat by Pulse 99 100 Oximetry 08/27/18 08/27/18 08/27/18 00:08 00:15 00:30 Temperature Pulse Rate 68 72 66 Pulse Rate [ Anterior Bilateral Throughout] Pulse Rate [ From Monitor] Pulse Rate [ Right Dorsalis Pedis] Respiratory 18 18 18 Rate Respiratory Rate [Anterior Bilateral Throughout] Blood Pressure 166/41 166/46 168/67 O2 Sat by Pulse 100 100 100 Oximetry 08/27/18 08/27/18 08/27/18 00:45 01:00 01:16 Temperature Pulse Rate 61 60 70 Pulse Rate [ Anterior Bilateral Throughout] Pulse Rate [ From Monitor] Pulse Rate [ Right Dorsalis Pedis] Respiratory 18 18 17 Rate Respiratory Rate [Anterior Bilateral Throughout] Blood Pressure 168/64 165/62 165/62 O2 Sat by Pulse 100 100 100 Oximetry 08/27/18 08/27/18 08/27/18 01:30 01:46 02:00 Temperature Pulse Rate 60 61 60 Pulse Rate [ Anterior Bilateral Throughout] Pulse Rate [ From Monitor] Pulse Rate [ Right Dorsalis Pedis] Respiratory 19 18 20 Rate Respiratory Rate [Anterior Bilateral Throughout] Blood Pressure 143/59 138/63 138/63 O2 Sat by Pulse 99 Oximetry 08/27/18 08/27/18 08/27/18 02:16 02:30 02:46 Temperature Pulse Rate 65 60 62 Pulse Rate [ Anterior Bilateral Throughout] Pulse Rate [ From Monitor] Pulse Rate [ Right Dorsalis Pedis] Respiratory 18 18 18 Rate Respiratory Rate [Anterior Bilateral Throughout] Blood Pressure 138/63 138/63 143/61 O2 Sat by Pulse 99 100 100 Oximetry 08/27/18 08/27/18 08/27/18 03:00 03:16 03:30 Temperature Pulse Rate 61 61 59 L Pulse Rate [ Anterior Bilateral Throughout] Pulse Rate [ From Monitor] Pulse Rate [ Right Dorsalis Pedis] Respiratory 18 18 18 Rate Respiratory Rate [Anterior Bilateral Throughout] Blood Pressure 143/61 141/62 141/62 O2 Sat by Pulse 100 Oximetry 08/27/18 08/27/18 08/27/18 03:39 03:46 04:00 Temperature 99.1 F Pulse Rate 61 61 Pulse Rate [ Anterior Bilateral Throughout] Pulse Rate [ 70 From Monitor] Pulse Rate [ 81 Right Dorsalis Pedis] Respiratory 18 18 Rate Respiratory Rate [Anterior Bilateral Throughout] Blood Pressure 146/61 146/61 O2 Sat by Pulse 100 97 Oximetry 08/27/18 08/27/18 08/27/18 04:16 04:30 04:45 Temperature Pulse Rate 76 81 77 Pulse Rate [ Anterior Bilateral Throughout] Pulse Rate [ From Monitor] Pulse Rate [ Right Dorsalis Pedis] Respiratory 17 18 Rate Respiratory Rate [Anterior Bilateral Throughout] Blood Pressure 151/66 151/66 O2 Sat by Pulse 97 96 96 Oximetry 08/27/18 08/27/18 08/27/18 04:46 05:00 05:16 Temperature Pulse Rate 76 77 82 Pulse Rate [ Anterior Bilateral Throughout] Pulse Rate [ From Monitor] Pulse Rate [ Right Dorsalis Pedis] Respiratory 14 18 19 Rate Respiratory Rate [Anterior Bilateral Throughout] Blood Pressure 151/66 151/66 145/61 O2 Sat by Pulse 94 95 94 Oximetry 08/27/18 08/27/18 08/27/18 05:30 05:46 06:00 Temperature Pulse Rate 81 75 64 Pulse Rate [ Anterior Bilateral Throughout] Pulse Rate [ From Monitor] Pulse Rate [ Right Dorsalis Pedis] Respiratory 18 20 18 Rate Respiratory Rate [Anterior Bilateral Throughout] Blood Pressure 148/61 152/62 148/61 O2 Sat by Pulse 96 96 97 Oximetry 08/27/18 08/27/18 08/27/18 08:00 08:20 09:07 Temperature 98.3 F Pulse Rate 82 Pulse Rate [ 80 Anterior Bilateral Throughout] Pulse Rate [ From Monitor] Pulse Rate [ Right Dorsalis Pedis] Respiratory Rate Respiratory 20 Rate [Anterior Bilateral Throughout] Blood Pressure 148/62 151/59 O2 Sat by Pulse 97 90 Oximetry 08/27/18 09:23 Temperature Pulse Rate 94 H Pulse Rate [ Anterior Bilateral Throughout] Pulse Rate [ From Monitor] Pulse Rate [ Right Dorsalis Pedis] Respiratory Rate Respiratory Rate [Anterior Bilateral Throughout] Blood Pressure 151/59 O2 Sat by Pulse 93 Oximetry Constitutional: alert, appears uncomfortable, other (morbidly obese, orally intubated, 7.5 ETT at 26cm at the lip, no dys-synchrony) Eyes: non-icteric ENT: oropharynx moist, other (orally intubated, ETT 8, 24cm at the lip, OGT in place) Neck: supple, no JVD, other (short neck) Effort: mildly labored Ascultation: Bilateral: diminished breath sounds, rhonchi (coarse BS bilaterally) Percussion: Bilateral: not dull Cardiovascular: regular rate and rhythm, other (S1,S2, no murmurs, no gallops or rubs) Gastrointestinal: normoactive bowel sounds, soft, non-tender, non-distended, other (Madison catheter in place, clear urine) Integumentary: normal, other (right femoral HD catheter) Extremities: no cyanosis, no edema, pink and warm, pulses normal, no ischemia or petechiae Neurologic: non-focal exam (grossly), pupils equal and round, other (awake and alert, obeying one step commands) Psychiatric: other (intubated, on fentanyl) CBC and BMP: 08/30/18 06:10 08/30/18 05:34 ABG, PT/INR, D-dimer: ABG POC ABG pH 7.563 (7.35-7.45) H 08/27/18 04:59 POC ABG pO2 69 (80-105) L 08/27/18 04:59 POC ABG HCO3 25.7 (22-26 mml/L) 08/27/18 04:59 POC ABG Total CO2 27 (23-27mmol/L) 08/27/18 04:59 POC ABG O2 Sat 96 08/27/18 04:59 PT/INR, D-dimer PT 15.6 Sec. (12.2-14.9) H 08/25/18 16:43 INR 1.27 (0.87-1.13) H 08/25/18 16:43 1978.25 ng/mlDDU (0-234) H 08/24/18 13:41 Abnormal lab findings: Abnormal Labs 08/21/18 08/21/18 08/21/18 04:42 04:42 04:42 WBC 19.1 H RBC 2.49 L Hgb 7.7 L Hct 24.5 L MCV 98 H RDW 17.7 H Plt Count Seg Neuts % (Manual) 84.0 H Lymphocytes % (Manual) 7.0 L Monocytes % (Manual) 9.0 H Nucleated RBC % Seg Neutrophils # Man 16.0 H Lymphocytes # (Manual) Monocytes # (Manual) 1.7 H PT 20.1 H INR 1.76 H D-Dimer POC ABG pH POC ABG pCO2 POC ABG pO2 Sodium Potassium Chloride Carbon Dioxide BUN Creatinine Glucose POC Glucose Lactic Acid Calcium Total Bilirubin AST ALT Total Creatine Kinase CK-MB (CK-2) CK-MB (CK-2) Rel Index Troponin T 0.032 H C-Reactive Protein NT-Pro-B Natriuret Pep Albumin LDL Cholesterol Direct 44 L Urine WBC (Auto) 08/21/18 08/21/18 08/21/18 04:42 04:42 04:42 WBC RBC Hgb Hct MCV RDW Plt Count Seg Neuts % (Manual) Lymphocytes % (Manual) Monocytes % (Manual) Nucleated RBC % Seg Neutrophils # Man Lymphocytes # (Manual) Monocytes # (Manual) PT INR D-Dimer POC ABG pH POC ABG pCO2 POC ABG pO2 Sodium Potassium 6.0 H Chloride Carbon Dioxide 15 L BUN 57 H Creatinine 4.3 H Glucose 111 H POC Glucose Lactic Acid 5.80 H* Calcium Total Bilirubin 1.80 H AST 212 H ALT 94 H Total Creatine Kinase CK-MB (CK-2) CK-MB (CK-2) Rel Index Troponin T C-Reactive Protein NT-Pro-B Natriuret Pep 29280 H Albumin 3.2 L LDL Cholesterol Direct Urine WBC (Auto) 08/21/18 08/21/18 08/21/18 05:08 05:58 05:58 WBC RBC Hgb Hct MCV RDW Plt Count Seg Neuts % (Manual) Lymphocytes % (Manual) Monocytes % (Manual) Nucleated RBC % Seg Neutrophils # Man Lymphocytes # (Manual) Monocytes # (Manual) PT INR D-Dimer POC ABG pH 7.164 L POC ABG pCO2 46.3 H POC ABG pO2 229 H Sodium Potassium Chloride Carbon Dioxide BUN Creatinine Glucose POC Glucose Lactic Acid 5.10 H* Calcium Total Bilirubin AST ALT Total Creatine Kinase CK-MB (CK-2) CK-MB (CK-2) Rel Index Troponin T 0.035 H C-Reactive Protein NT-Pro-B Natriuret Pep Albumin LDL Cholesterol Direct Urine WBC (Auto) 08/21/18 08/21/18 08/21/18 06:45 06:45 06:53 WBC RBC Hgb Hct MCV RDW Plt Count Seg Neuts % (Manual) Lymphocytes % (Manual) Monocytes % (Manual) Nucleated RBC % Seg Neutrophils # Man Lymphocytes # (Manual) Monocytes # (Manual) PT INR D-Dimer POC ABG pH 7.160 L POC ABG pCO2 46.8 H POC ABG pO2 Sodium Potassium Chloride Carbon Dioxide BUN Creatinine Glucose POC Glucose Lactic Acid 4.70 H* Calcium Total Bilirubin AST ALT Total Creatine Kinase 234 H CK-MB (CK-2) 9.1 H CK-MB (CK-2) Rel Index Troponin T 0.032 H C-Reactive Protein NT-Pro-B Natriuret Pep Albumin LDL Cholesterol Direct Urine WBC (Auto) 08/21/18 08/21/18 08/21/18 10:43 10:43 10:45 WBC RBC Hgb Hct MCV RDW Plt Count Seg Neuts % (Manual) Lymphocytes % (Manual) Monocytes % (Manual) Nucleated RBC % Seg Neutrophils # Man Lymphocytes # (Manual) Monocytes # (Manual) PT INR D-Dimer POC ABG pH POC ABG pCO2 POC ABG pO2 Sodium Potassium Chloride Carbon Dioxide 17 L BUN 59 H Creatinine 4.2 H Glucose POC Glucose Lactic Acid 3.70 H* Calcium Total Bilirubin AST ALT Total Creatine Kinase 222 H CK-MB (CK-2) 9.2 H CK-MB (CK-2) Rel Index 4.1 H Troponin T 0.044 H D C-Reactive Protein NT-Pro-B Natriuret Pep Albumin LDL Cholesterol Direct Urine WBC (Auto) 08/21/18 08/21/18 08/21/18 11:38 12:33 15:03 WBC RBC Hgb Hct MCV RDW Plt Count Seg Neuts % (Manual) Lymphocytes % (Manual) Monocytes % (Manual) Nucleated RBC % Seg Neutrophils # Man Lymphocytes # (Manual) Monocytes # (Manual) PT INR D-Dimer POC ABG pH 7.250 L POC ABG pCO2 POC ABG pO2 121 H Sodium Potassium Chloride Carbon Dioxide BUN Creatinine Glucose POC Glucose 129 H Lactic Acid Calcium Total Bilirubin AST ALT Total Creatine Kinase CK-MB (CK-2) CK-MB (CK-2) Rel Index Troponin T C-Reactive Protein NT-Pro-B Natriuret Pep Albumin LDL Cholesterol Direct Urine WBC (Auto) 13.0 H 08/21/18 08/22/18 08/22/18 15:47 00:01 04:27 WBC RBC Hgb Hct MCV RDW Plt Count Seg Neuts % (Manual) Lymphocytes % (Manual) Monocytes % (Manual) Nucleated RBC % Seg Neutrophils # Man Lymphocytes # (Manual) Monocytes # (Manual) PT INR D-Dimer POC ABG pH 7.457 H POC ABG pCO2 POC ABG pO2 117 H Sodium Potassium Chloride Carbon Dioxide BUN Creatinine Glucose POC Glucose 211 H Lactic Acid 2.70 H* Calcium Total Bilirubin AST ALT Total Creatine Kinase CK-MB (CK-2) CK-MB (CK-2) Rel Index Troponin T C-Reactive Protein NT-Pro-B Natriuret Pep Albumin LDL Cholesterol Direct Urine WBC (Auto) 08/22/18 08/22/18 08/22/18 05:46 06:10 06:10 WBC RBC 2.27 L Hgb 7.0 L Hct 21.2 L MCV RDW 16.8 H Plt Count 129 L Seg Neuts % (Manual) 95.0 H Lymphocytes % (Manual) 1.0 L Monocytes % (Manual) Nucleated RBC % 1.0 H Seg Neutrophils # Man 7.8 H Lymphocytes # (Manual) 0.1 L Monocytes # (Manual) PT INR D-Dimer POC ABG pH POC ABG pCO2 POC ABG pO2 Sodium Potassium Chloride Carbon Dioxide 20 L BUN 63 H Creatinine 3.9 H Glucose 205 H POC Glucose 223 H Lactic Acid Calcium Total Bilirubin AST ALT Total Creatine Kinase CK-MB (CK-2) CK-MB (CK-2) Rel Index Troponin T C-Reactive Protein NT-Pro-B Natriuret Pep Albumin LDL Cholesterol Direct Urine WBC (Auto) 08/22/18 08/22/18 08/22/18 06:10 12:57 16:21 WBC RBC Hgb Hct MCV RDW Plt Count Seg Neuts % (Manual) Lymphocytes % (Manual) Monocytes % (Manual) Nucleated RBC % Seg Neutrophils # Man Lymphocytes # (Manual) Monocytes # (Manual) PT INR D-Dimer POC ABG pH 7.477 H POC ABG pCO2 POC ABG pO2 Sodium Potassium Chloride Carbon Dioxide BUN Creatinine Glucose POC Glucose 166 H Lactic Acid Calcium Total Bilirubin AST ALT Total Creatine Kinase CK-MB (CK-2) CK-MB (CK-2) Rel Index Troponin T C-Reactive Protein 23.60 H NT-Pro-B Natriuret Pep Albumin LDL Cholesterol Direct Urine WBC (Auto) 08/22/18 08/22/18 08/23/18 17:41 23:42 04:38 WBC RBC Hgb Hct MCV RDW Plt Count Seg Neuts % (Manual) Lymphocytes % (Manual) Monocytes % (Manual) Nucleated RBC % Seg Neutrophils # Man Lymphocytes # (Manual) Monocytes # (Manual) PT INR D-Dimer POC ABG pH 7.249 L POC ABG pCO2 53.5 H POC ABG pO2 73 L Sodium Potassium Chloride Carbon Dioxide BUN Creatinine Glucose POC Glucose 131 H 168 H Lactic Acid Calcium Total Bilirubin AST ALT Total Creatine Kinase CK-MB (CK-2) CK-MB (CK-2) Rel Index Troponin T C-Reactive Protein NT-Pro-B Natriuret Pep Albumin LDL Cholesterol Direct Urine WBC (Auto) 08/23/18 08/23/18 08/23/18 04:52 04:52 04:52 WBC RBC 2.39 L Hgb 7.5 L Hct 22.8 L MCV 95 H RDW 17.6 H Plt Count Seg Neuts % (Manual) Lymphocytes % (Manual) Monocytes % (Manual) Nucleated RBC % Seg Neutrophils # Man Lymphocytes # (Manual) Monocytes # (Manual) PT INR D-Dimer POC ABG pH POC ABG pCO2 POC ABG pO2 Sodium Potassium 5.6 H 5.6 H Chloride Carbon Dioxide 21 L BUN 71 H 72 H Creatinine 4.1 H 4.0 H Glucose 141 H 140 H POC Glucose Lactic Acid Calcium 8.3 L 8.2 L Total Bilirubin AST 247 H ALT 220 H Total Creatine Kinase CK-MB (CK-2) CK-MB (CK-2) Rel Index Troponin T C-Reactive Protein NT-Pro-B Natriuret Pep Albumin 2.8 L LDL Cholesterol Direct Urine WBC (Auto) 08/23/18 08/23/18 08/23/18 05:50 08:38 12:21 WBC RBC Hgb Hct MCV RDW Plt Count Seg Neuts % (Manual) Lymphocytes % (Manual) Monocytes % (Manual) Nucleated RBC % Seg Neutrophils # Man Lymphocytes # (Manual) Monocytes # (Manual) PT INR D-Dimer POC ABG pH POC ABG pCO2 POC ABG pO2 Sodium Potassium Chloride Carbon Dioxide BUN Creatinine Glucose POC Glucose 160 H 177 H Lactic Acid Calcium Total Bilirubin AST ALT Total Creatine Kinase CK-MB (CK-2) CK-MB (CK-2) Rel Index Troponin T C-Reactive Protein NT-Pro-B Natriuret Pep 90205 H Albumin LDL Cholesterol Direct Urine WBC (Auto) 08/23/18 08/23/18 08/23/18 12:36 14:24 18:05 WBC RBC Hgb Hct MCV RDW Plt Count Seg Neuts % (Manual) Lymphocytes % (Manual) Monocytes % (Manual) Nucleated RBC % Seg Neutrophils # Man Lymphocytes # (Manual) Monocytes # (Manual) PT INR D-Dimer POC ABG pH 7.337 L POC ABG pCO2 POC ABG pO2 145 H Sodium 136 L Potassium 5.2 H Chloride Carbon Dioxide BUN 76 H Creatinine 4.2 H Glucose 158 H POC Glucose 169 H Lactic Acid Calcium 8.1 L Total Bilirubin AST ALT Total Creatine Kinase CK-MB (CK-2) CK-MB (CK-2) Rel Index Troponin T C-Reactive Protein NT-Pro-B Natriuret Pep Albumin LDL Cholesterol Direct Urine WBC (Auto) 08/23/18 08/23/18 08/24/18 22:43 23:42 05:16 WBC RBC Hgb Hct MCV RDW Plt Count Seg Neuts % (Manual) Lymphocytes % (Manual) Monocytes % (Manual) Nucleated RBC % Seg Neutrophils # Man Lymphocytes # (Manual) Monocytes # (Manual) PT INR D-Dimer POC ABG pH POC ABG pCO2 POC ABG pO2 Sodium 136 L Potassium 5.3 H 5.2 H Chloride 97.9 L Carbon Dioxide BUN 80 H 86 H Creatinine 4.0 H 4.3 H Glucose 164 H 202 H POC Glucose 183 H Lactic Acid Calcium 7.9 L Total Bilirubin AST ALT Total Creatine Kinase CK-MB (CK-2) CK-MB (CK-2) Rel Index Troponin T C-Reactive Protein NT-Pro-B Natriuret Pep Albumin LDL Cholesterol Direct Urine WBC (Auto) 08/24/18 08/24/18 08/24/18 05:21 05:29 10:10 WBC RBC 2.47 L Hgb 7.5 L Hct 23.3 L MCV RDW 17.5 H Plt Count 118 L Seg Neuts % (Manual) 92.0 H Lymphocytes % (Manual) 2.0 L Monocytes % (Manual) Nucleated RBC % Seg Neutrophils # Man 8.8 H Lymphocytes # (Manual) 0.2 L Monocytes # (Manual) PT INR D-Dimer POC ABG pH 7.243 L POC ABG pCO2 56.8 H POC ABG pO2 Sodium Potassium Chloride Carbon Dioxide BUN Creatinine Glucose POC Glucose 209 H Lactic Acid Calcium Total Bilirubin AST ALT Total Creatine Kinase CK-MB (CK-2) CK-MB (CK-2) Rel Index Troponin T C-Reactive Protein NT-Pro-B Natriuret Pep Albumin LDL Cholesterol Direct Urine WBC (Auto) 08/24/18 08/24/18 08/24/18 10:10 11:19 13:41 WBC RBC Hgb Hct MCV RDW Plt Count Seg Neuts % (Manual) Lymphocytes % (Manual) Monocytes % (Manual) Nucleated RBC % Seg Neutrophils # Man Lymphocytes # (Manual) Monocytes # (Manual) PT INR D-Dimer 1978.25 H POC ABG pH POC ABG pCO2 POC ABG pO2 Sodium Potassium Chloride Carbon Dioxide BUN Creatinine Glucose POC Glucose 212 H Lactic Acid Calcium Total Bilirubin AST ALT Total Creatine Kinase CK-MB (CK-2) CK-MB (CK-2) Rel Index Troponin T C-Reactive Protein NT-Pro-B Natriuret Pep 83098 H Albumin LDL Cholesterol Direct Urine WBC (Auto) 08/24/18 08/24/18 08/24/18 13:41 14:27 17:23 WBC RBC Hgb Hct MCV RDW Plt Count Seg Neuts % (Manual) Lymphocytes % (Manual) Monocytes % (Manual) Nucleated RBC % Seg Neutrophils # Man Lymphocytes # (Manual) Monocytes # (Manual) PT INR D-Dimer POC ABG pH POC ABG pCO2 POC ABG pO2 Sodium 136 L Potassium 5.1 H Chloride 97.8 L Carbon Dioxide BUN 90 H Creatinine 4.1 H Glucose 157 H POC Glucose 155 H Lactic Acid Calcium 8.0 L Total Bilirubin AST ALT Total Creatine Kinase CK-MB (CK-2) CK-MB (CK-2) Rel Index Troponin T C-Reactive Protein 9.00 H NT-Pro-B Natriuret Pep Albumin LDL Cholesterol Direct Urine WBC (Auto) 08/25/18 08/25/18 08/25/18 00:38 05:22 05:57 WBC RBC Hgb Hct MCV RDW Plt Count Seg Neuts % (Manual) Lymphocytes % (Manual) Monocytes % (Manual) Nucleated RBC % Seg Neutrophils # Man Lymphocytes # (Manual) Monocytes # (Manual) PT INR D-Dimer POC ABG pH 7.238 L POC ABG pCO2 58.2 H POC ABG pO2 Sodium Potassium 5.4 H Chloride Carbon Dioxide BUN 98 H Creatinine 4.3 H Glucose 217 H POC Glucose 176 H Lactic Acid Calcium 8.3 L Total Bilirubin AST ALT Total Creatine Kinase CK-MB (CK-2) CK-MB (CK-2) Rel Index Troponin T C-Reactive Protein NT-Pro-B Natriuret Pep 09228 H Albumin LDL Cholesterol Direct Urine WBC (Auto) 08/25/18 08/25/18 08/25/18 06:56 08:59 11:38 WBC RBC Hgb Hct MCV RDW Plt Count Seg Neuts % (Manual) Lymphocytes % (Manual) Monocytes % (Manual) Nucleated RBC % Seg Neutrophils # Man Lymphocytes # (Manual) Monocytes # (Manual) PT INR D-Dimer POC ABG pH 7.348 L POC ABG pCO2 48.6 H POC ABG pO2 Sodium Potassium Chloride Carbon Dioxide BUN Creatinine Glucose POC Glucose 247 H 235 H Lactic Acid Calcium Total Bilirubin AST ALT Total Creatine Kinase CK-MB (CK-2) CK-MB (CK-2) Rel Index Troponin T C-Reactive Protein NT-Pro-B Natriuret Pep Albumin LDL Cholesterol Direct Urine WBC (Auto) 08/25/18 08/25/18 08/25/18 12:29 16:43 16:43 WBC 14.7 H RBC 2.90 L Hgb 8.9 L Hct 27.4 L MCV 95 H RDW 17.3 H Plt Count 119 L Seg Neuts % (Manual) 94.0 H Lymphocytes % (Manual) 2.0 L Monocytes % (Manual) Nucleated RBC % Seg Neutrophils # Man 13.8 H Lymphocytes # (Manual) 0.3 L Monocytes # (Manual) PT 15.6 H INR 1.27 H D-Dimer POC ABG pH POC ABG pCO2 POC ABG pO2 Sodium Potassium Chloride Carbon Dioxide BUN Creatinine Glucose POC Glucose 237 H Lactic Acid Calcium Total Bilirubin AST ALT Total Creatine Kinase CK-MB (CK-2) CK-MB (CK-2) Rel Index Troponin T C-Reactive Protein NT-Pro-B Natriuret Pep Albumin LDL Cholesterol Direct Urine WBC (Auto) 08/25/18 08/26/18 08/26/18 17:22 00:16 04:56 WBC RBC Hgb Hct MCV RDW Plt Count Seg Neuts % (Manual) Lymphocytes % (Manual) Monocytes % (Manual) Nucleated RBC % Seg Neutrophils # Man Lymphocytes # (Manual) Monocytes # (Manual) PT INR D-Dimer POC ABG pH POC ABG pCO2 45.2 H POC ABG pO2 Sodium Potassium Chloride Carbon Dioxide BUN Creatinine Glucose POC Glucose 200 H 180 H Lactic Acid Calcium Total Bilirubin AST ALT Total Creatine Kinase CK-MB (CK-2) CK-MB (CK-2) Rel Index Troponin T C-Reactive Protein NT-Pro-B Natriuret Pep Albumin LDL Cholesterol Direct Urine WBC (Auto) 08/26/18 08/26/18 08/26/18 05:53 06:20 08:48 WBC RBC Hgb Hct MCV RDW Plt Count Seg Neuts % (Manual) Lymphocytes % (Manual) Monocytes % (Manual) Nucleated RBC % Seg Neutrophils # Man Lymphocytes # (Manual) Monocytes # (Manual) PT INR D-Dimer POC ABG pH POC ABG pCO2 POC ABG pO2 Sodium Potassium Chloride Carbon Dioxide BUN 106 H Creatinine 3.9 H Glucose 137 H POC Glucose 131 H 126 H Lactic Acid Calcium 8.1 L Total Bilirubin AST ALT Total Creatine Kinase CK-MB (CK-2) CK-MB (CK-2) Rel Index Troponin T C-Reactive Protein NT-Pro-B Natriuret Pep > 72100 H Albumin LDL Cholesterol Direct Urine WBC (Auto) 08/26/18 08/26/18 08/26/18 11:39 17:33 18:02 WBC RBC Hgb Hct MCV RDW Plt Count Seg Neuts % (Manual) Lymphocytes % (Manual) Monocytes % (Manual) Nucleated RBC % Seg Neutrophils # Man Lymphocytes # (Manual) Monocytes # (Manual) PT INR D-Dimer POC ABG pH POC ABG pCO2 POC ABG pO2 58 L Sodium Potassium Chloride Carbon Dioxide BUN Creatinine Glucose POC Glucose 156 H 173 H Lactic Acid Calcium Total Bilirubin AST ALT Total Creatine Kinase CK-MB (CK-2) CK-MB (CK-2) Rel Index Troponin T C-Reactive Protein NT-Pro-B Natriuret Pep Albumin LDL Cholesterol Direct Urine WBC (Auto) 08/26/18 08/27/18 23:12 04:59 WBC RBC Hgb Hct MCV RDW Plt Count Seg Neuts % (Manual) Lymphocytes % (Manual) Monocytes % (Manual) Nucleated RBC % Seg Neutrophils # Man Lymphocytes # (Manual) Monocytes # (Manual) PT INR D-Dimer POC ABG pH 7.563 H POC ABG pCO2 POC ABG pO2 69 L Sodium Potassium Chloride Carbon Dioxide BUN Creatinine Glucose POC Glucose 130 H Lactic Acid Calcium Total Bilirubin AST ALT Total Creatine Kinase CK-MB (CK-2) CK-MB (CK-2) Rel Index Troponin T C-Reactive Protein NT-Pro-B Natriuret Pep Albumin LDL Cholesterol Direct Urine WBC (Auto) Chest x-ray: image reviewed Allied health notes reviewed: RT
--- NOTE | 2018-08-27 10:23 | Progress Note ---
Assessment and Plan Patient now awake and agitated. SBT underway. Surgery evaluating d/t concern for obstruction. From a cardiac standpoint, he is stable and we will continue supportive care. Patient has been seen in conjunction with Dr. Glover, who agrees with assessment and plan. - Patient Problems (1) Cardiac arrest Current Visit: Yes Status: Acute (2) Acute HFrEF (heart failure with reduced ejection fraction) Current Visit: Yes Status: Acute (3) Acute on chronic respiratory failure Current Visit: Yes Status: Acute (4) Acute renal failure Current Visit: Yes Status: Acute (5) Altered mental status Current Visit: Yes Status: Acute (6) Anemia Current Visit: Yes Status: Acute (7) Bacteremia due to coagulase-negative Staphylococcus Current Visit: Yes Status: Acute (8) COPD (chronic obstructive pulmonary disease) Current Visit: Yes Status: Acute (9) Cardiomyopathy Current Visit: Yes Status: Acute (10) Colon cancer Current Visit: Yes Status: Acute (11) Diabetes Current Visit: Yes Status: Acute (12) Elevated liver enzymes Current Visit: Yes Status: Acute (13) Elevated troponin Current Visit: Yes Status: Acute (14) Lactic acidosis Current Visit: Yes Status: Acute (15) Sepsis Current Visit: Yes Status: Acute (16) GI bleed Current Visit: Yes Status: Suspected Subjective Date of service: 08/27/18 Principal diagnosis: s/p cardiac arrest; severe sepsis; acute hypoxemic- hypercapnic resp failure Interval history: Patient intubated, but is currently on a breathing trial. Sedation is off and patient is awake and agitated. SR with PACs in 70s on telemetry. UOP approx 1.5L. Objective Last Vital Signs Temp 98.3 F 08/27/18 08:00 Pulse 94 H 08/27/18 09:23 Resp 20 08/27/18 08:20 BP 151/59 08/27/18 09:23 Pulse Ox 93 08/27/18 09:23 - Physical Examination General: Other (intubated. Awake and agitated. ) HEENT: Positive: PERRL Neck: Positive: neck supple Cardiac: Positive: Irregularly Regular, irregularly irregular Lungs: Positive: Decreased Breath Sounds, Ventilated Respirations Neuro: Positive: Grossly Intact, Other (intubated, but awake and alert) Abdomen: Positive: Soft, Other (Obese) /Rectal: Other ([place] in place. ) Skin: Positive: Clear. Negative: Rash Musculoskeletal: Decreased Range of Motion Extremities: Present: Other (Generalized edema). Absent: edema - Imaging and Cardiology EKG: image reviewed Echo: report reviewed ( EF 40-45%, LV mod dilated, pseudonormalization, RV severely dilated, RA mod dilated, mod TR, RVSP 47mmHg. ) - Telemetry EKG Rhythm: Sinus Rhythm - EKG Sinus rhythms and dysrhythmias: sinus rhythm Supraventricular dysrhythmia: atrial premature complexe AV and intraventricular conduction: right bundle branch block - Allied health notes Allied health notes reviewed: RT
[2018-08-27] MEDS: DIPRIVAN 10 MG/ML 1,000 MG/100 ML BOTTLE IV SCH ×2 (10:33→19:12)
[2018-08-27] MEDS: MIRALAX 3350 PO SCH (10:44)
[2018-08-27] MEDS: ceFAZolin 2 GM in NACL 0.9% 100 ML IV SCH (10:44)
[2018-08-27] MEDS: PEPCID IV SCH (10:44)
[2018-08-27] MEDS: HEPARIN SUB-Q SCH ×2 (10:44→22:25)
[2018-08-27] MEDS: KEPPRA 750 MG in D5W 100 ML IV SCH ×2 (10:44→22:27)
[2018-08-27] MEDS: DULCOLAX PR SCH (10:44)
[2018-08-27 12:44] LABS: Hematocrit 24.7 % (35.5-45.6); Hemoglobin 8.1 gm/dl (11.8-15.2); Mean Corpuscular HGB Conc 33 % (32-34); Mean Corpuscular Hemoglobin 31 pg (28-32); Mean Corpuscular Volume 93 fl (84-94); Red Blood Count 2.66 M/mm3 (3.65-5.03); Red Cell Distribution Width 16.7 % (13.2-15.2)
[2018-08-27 13:06] LABS: Albumin 2.4 g/dL (3.9-5); Calcium 7.6 mg/dL (8.4-10.2)
--- NOTE | 2018-08-27 14:19 | Progress Note ---
Assessment and Plan 73 yo M with 1. high TF residuals, r/o bowel obstruction, ?gastroparesis 2. VDRF 3. CKD 4. COPD 5. morbid obesity Plan: CT scan abd/pel - no obstruction. 1. TF not restarted yesterday as ordered. Per nursing, not started due to content coming out of NGT - only 300 cc documented x 24 hours yesterday. Ok to start TF at 10cc/hr - will adv very slowly to goal of 45cc/hr. Discussed with RN again. 2. continue reglan IV 3. on pepcid BID. 4. Vent management per ICU 5. HD per nephro 6. DVT ppx 7. bowel regimen Will s/o. Please call with questions or concerns.. Subjective Date of service: 08/27/18 Narrative: Pt seen and examined. Pt with multiple BMs. Family at bedside. No f/c. TF not started yesterday as per orders and discussion with RN. Objective Vital Signs - 12hr 08/27/18 08/27/18 08/27/18 02:30 02:46 03:00 Temperature Pulse Rate 60 62 61 Pulse Rate [ Anterior Bilateral Throughout] Pulse Rate [ From Monitor] Pulse Rate [ Right Dorsalis Pedis] Respiratory 18 18 18 Rate Respiratory Rate [Anterior Bilateral Throughout] Blood Pressure 138/63 143/61 143/61 O2 Sat by Pulse 100 100 Oximetry 08/27/18 08/27/18 08/27/18 03:16 03:30 03:39 Temperature 99.1 F Pulse Rate 61 59 L Pulse Rate [ Anterior Bilateral Throughout] Pulse Rate [ From Monitor] Pulse Rate [ Right Dorsalis Pedis] Respiratory 18 18 Rate Respiratory Rate [Anterior Bilateral Throughout] Blood Pressure 141/62 141/62 O2 Sat by Pulse 100 Oximetry 08/27/18 08/27/18 08/27/18 03:46 04:00 04:16 Temperature Pulse Rate 61 61 76 Pulse Rate [ Anterior Bilateral Throughout] Pulse Rate [ 70 From Monitor] Pulse Rate [ 81 Right Dorsalis Pedis] Respiratory 18 18 17 Rate Respiratory Rate [Anterior Bilateral Throughout] Blood Pressure 146/61 146/61 151/66 O2 Sat by Pulse 100 97 97 Oximetry 08/27/18 08/27/18 08/27/18 04:30 04:45 04:46 Temperature Pulse Rate 81 77 76 Pulse Rate [ Anterior Bilateral Throughout] Pulse Rate [ From Monitor] Pulse Rate [ Right Dorsalis Pedis] Respiratory 18 14 Rate Respiratory Rate [Anterior Bilateral Throughout] Blood Pressure 151/66 151/66 O2 Sat by Pulse 96 96 94 Oximetry 08/27/18 08/27/18 08/27/18 05:00 05:16 05:30 Temperature Pulse Rate 77 82 81 Pulse Rate [ Anterior Bilateral Throughout] Pulse Rate [ From Monitor] Pulse Rate [ Right Dorsalis Pedis] Respiratory 18 19 18 Rate Respiratory Rate [Anterior Bilateral Throughout] Blood Pressure 151/66 145/61 148/61 O2 Sat by Pulse 95 94 96 Oximetry 08/27/18 08/27/18 08/27/18 05:46 06:00 08:00 Temperature 98.3 F Pulse Rate 75 64 82 Pulse Rate [ Anterior Bilateral Throughout] Pulse Rate [ From Monitor] Pulse Rate [ Right Dorsalis Pedis] Respiratory 20 18 Rate Respiratory Rate [Anterior Bilateral Throughout] Blood Pressure 152/62 148/61 148/62 O2 Sat by Pulse 96 97 97 Oximetry 08/27/18 08/27/18 08/27/18 08:20 09:07 09:23 Temperature Pulse Rate 94 H Pulse Rate [ 80 Anterior Bilateral Throughout] Pulse Rate [ From Monitor] Pulse Rate [ Right Dorsalis Pedis] Respiratory Rate Respiratory 20 Rate [Anterior Bilateral Throughout] Blood Pressure 151/59 151/59 O2 Sat by Pulse 90 93 Oximetry 08/27/18 08/27/18 11:54 12:00 Temperature 98.9 F Pulse Rate 65 Pulse Rate [ Anterior Bilateral Throughout] Pulse Rate [ From Monitor] Pulse Rate [ Right Dorsalis Pedis] Respiratory Rate Respiratory Rate [Anterior Bilateral Throughout] Blood Pressure 205/32 O2 Sat by Pulse 97 Oximetry - General physical appearance Narrative Exam: Gen: Intubated, sedated ENT: NGT in place with clear pink tinged fluid in tubing. CV; S1, S2+ resp; on vent Abd: flat, obese - Labs 08/27/18 11:58 08/27/18 11:58 Diabetes panel 08/27/18 Range/Units 11:58 Sodium 138 (137-145) mmol/L Potassium 3.7 D (3.6-5.0) mmol/L Chloride 98.5 (98-107) mmol/L Carbon Dioxide 26 (22-30) mmol/L BUN 71 H (9-20) mg/dL Creatinine 2.9 H (0.8-1.5) mg/dL Glucose 93 (75-100) mg/dL Calcium 7.6 L (8.4-10.2) mg/dL AST 33 (5-40) units/L ALT 25 (7-56) units/L Alkaline Phosphatase 98 (35-129) units/L Total Protein 6.1 L (6.3-8.2) g/dL Albumin 2.4 L (3.9-5) g/dL Calcium panel 08/27/18 Range/Units 11:58 Calcium 7.6 L (8.4-10.2) mg/dL Albumin 2.4 L (3.9-5) g/dL Pituitary panel 08/27/18 Range/Units 11:58 Sodium 138 (137-145) mmol/L Potassium 3.7 D (3.6-5.0) mmol/L Chloride 98.5 (98-107) mmol/L Carbon Dioxide 26 (22-30) mmol/L BUN 71 H (9-20) mg/dL Creatinine 2.9 H (0.8-1.5) mg/dL Glucose 93 (75-100) mg/dL Calcium 7.6 L (8.4-10.2) mg/dL Adrenal panel 08/27/18 Range/Units 11:58 Sodium 138 (137-145) mmol/L Potassium 3.7 D (3.6-5.0) mmol/L Chloride 98.5 (98-107) mmol/L Carbon Dioxide 26 (22-30) mmol/L BUN 71 H (9-20) mg/dL Creatinine 2.9 H (0.8-1.5) mg/dL Glucose 93 (75-100) mg/dL Calcium 7.6 L (8.4-10.2) mg/dL Total Bilirubin 0.80 (0.1-1.2) mg/dL AST 33 (5-40) units/L ALT 25 (7-56) units/L Alkaline Phosphatase 98 (35-129) units/L Total Protein 6.1 L (6.3-8.2) g/dL Albumin 2.4 L (3.9-5) g/dL
[2018-08-27] MEDS: SODIUM CHLORIDE FLUSH SYRINGE 10 ML IV SCH (22:28)
[2018-08-28 00:27] LABS: Hepatitis A Antibody IgM Non-Reactive (NonReactive); Hepatitis B Core IgM Non-Reactive (NonReactive); Hepatitis C Virus Antibody Non-Reactive (NonReactive)
[2018-08-28] MEDS: HumaLOG SUB-Q SCH ×3 (00:56→18:57)
[2018-08-28 03:45] LABS: Hepatitis B Surface Antigen Non-Reactive (Negative)
--- NOTE | 2018-08-28 04:58 | XRay Report ---
PROCEDURE: XR CHEST 1V AP TECHNIQUE: Chest radiograph single view. HISTORY: follow up respiratory failure COMPARISONS: 08/27/2018 . FINDINGS: Satisfactory endotracheal and enteric tubes. No mediastinal shift. Cardiomegaly is unchanged. No pneu mothorax. Bibasilar opacities and effusions. IMPRESSION: Satisfactory appearance of the patient's support apparatus without pneumothorax or significant change compared to 08/27/2018. This document is electronically signed by Kilo Rooney MD., August 28 2018 04:56:12 AM ET
[2018-08-28] MEDS: DIPRIVAN 10 MG/ML 1,000 MG/100 ML BOTTLE IV SCH ×2 (04:59→19:29)
[2018-08-28] MEDS: fentaNYL DRIP Premix 2,000 MCG/100 ML BAG IV SCH ×3 (05:04→19:29)
[2018-08-28 05:38] LABS: Hematocrit 25.3 % (35.5-45.6); Hemoglobin 8.3 gm/dl (11.8-15.2); Mean Corpuscular HGB Conc 33 % (32-34); Mean Corpuscular Hemoglobin 31 pg (28-32); Mean Corpuscular Volume 96 fl (84-94); Red Blood Count 2.65 M/mm3 (3.65-5.03); Red Cell Distribution Width 17.3 % (13.2-15.2)
[2018-08-28 05:56] LABS: Platelet Count 83 K/mm3 (140-440)
[2018-08-28 05:59] LABS: Albumin 2.2 g/dL (3.9-5); Calcium 7.7 mg/dL (8.4-10.2)
[2018-08-28] MEDS: PULMICORT IH SCH ×2 (07:28→19:38)
[2018-08-28] MEDS: DUONEB *Not for PRN Use IH SCH ×2 (07:28→19:38)
[2018-08-28] MEDS: BROVANA NEBU IH SCH ×2 (07:28→19:38)
--- NOTE | 2018-08-28 08:31 | Progress Note ---
Assessment and Plan Impression: * Nonoliguric KHRIS on CKD * s/p Cardiopulmonary arrest with ROSC * Acute on chronic hypoxemic respiratory failure * Lactic acidosis * Acute metabolic/respiratory acidosis * Sepsis probably secondary to aspiration PNA * COPD * Acute metabolic-toxic encephalopathy * NSTEMI * Type 2 DM Plan: * Hemodialysis today as ordered * Monitor SCr and UOP for evidence of recovery * Reassess need for HD daily * Vent management per pulmonary/CCM * Antibiotics per primary team * Strict i/os * Avoid nephrotoxins * AM labs Subjective Date of service: 08/28/18 Principal diagnosis: s/p cardiac arrest; severe sepsis; acute hypoxemic- hypercapnic resp failure Interval history: No acute events overnight. Remains intubated. Objective - Vital Signs Vital signs: Vital Signs - 12hr 08/27/18 08/27/18 08/27/18 20:31 20:45 21:01 Temperature Pulse Rate 56 L 58 L 57 L Pulse Rate [ Anterior Bilateral Throughout] Pulse Rate [ From Monitor] Pulse Rate [ Right Dorsalis Pedis] Respiratory 18 14 18 Rate Respiratory Rate [Anterior Bilateral Throughout] Blood Pressure 165/58 165/58 158/52 O2 Sat by Pulse 100 100 100 Oximetry 08/27/18 08/27/18 08/27/18 21:15 21:31 21:45 Temperature Pulse Rate 55 L 56 L 56 L Pulse Rate [ Anterior Bilateral Throughout] Pulse Rate [ From Monitor] Pulse Rate [ Right Dorsalis Pedis] Respiratory 18 18 18 Rate Respiratory Rate [Anterior Bilateral Throughout] Blood Pressure 158/52 159/59 164/60 O2 Sat by Pulse 100 100 100 Oximetry 08/27/18 08/27/18 08/27/18 22:01 22:15 22:30 Temperature Pulse Rate 56 L 55 L 60 Pulse Rate [ Anterior Bilateral Throughout] Pulse Rate [ From Monitor] Pulse Rate [ Right Dorsalis Pedis] Respiratory 18 18 18 Rate Respiratory Rate [Anterior Bilateral Throughout] Blood Pressure 162/58 167/73 147/56 O2 Sat by Pulse 100 100 100 Oximetry 08/27/18 08/27/18 08/27/18 22:45 23:00 23:15 Temperature Pulse Rate 61 59 L 63 Pulse Rate [ Anterior Bilateral Throughout] Pulse Rate [ From Monitor] Pulse Rate [ Right Dorsalis Pedis] Respiratory 18 18 18 Rate Respiratory Rate [Anterior Bilateral Throughout] Blood Pressure 145/57 133/49 136/49 O2 Sat by Pulse 100 100 100 Oximetry 08/27/18 08/27/18 08/27/18 23:30 23:41 23:45 Temperature Pulse Rate 74 63 63 Pulse Rate [ Anterior Bilateral Throughout] Pulse Rate [ From Monitor] Pulse Rate [ Right Dorsalis Pedis] Respiratory 19 18 18 Rate Respiratory Rate [Anterior Bilateral Throughout] Blood Pressure 136/53 145/57 118/43 O2 Sat by Pulse 100 100 100 Oximetry 08/27/18 08/28/18 08/28/18 23:57 00:00 00:15 Temperature 98.6 F Pulse Rate 62 61 58 L Pulse Rate [ Anterior Bilateral Throughout] Pulse Rate [ 60 From Monitor] Pulse Rate [ 60 Right Dorsalis Pedis] Respiratory 18 19 Rate Respiratory Rate [Anterior Bilateral Throughout] Blood Pressure 126/51 126/51 129/51 O2 Sat by Pulse 100 100 100 Oximetry 08/28/18 08/28/18 08/28/18 00:30 00:45 01:00 Temperature Pulse Rate 58 L 54 L 56 L Pulse Rate [ Anterior Bilateral Throughout] Pulse Rate [ From Monitor] Pulse Rate [ Right Dorsalis Pedis] Respiratory 18 18 18 Rate Respiratory Rate [Anterior Bilateral Throughout] Blood Pressure 129/49 131/49 131/49 O2 Sat by Pulse 100 100 100 Oximetry 08/28/18 08/28/18 08/28/18 01:15 01:30 01:45 Temperature Pulse Rate 55 L 55 L 54 L Pulse Rate [ Anterior Bilateral Throughout] Pulse Rate [ From Monitor] Pulse Rate [ Right Dorsalis Pedis] Respiratory 18 18 18 Rate Respiratory Rate [Anterior Bilateral Throughout] Blood Pressure 134/50 135/54 134/50 O2 Sat by Pulse 100 100 100 Oximetry 08/28/18 08/28/18 08/28/18 02:00 02:15 02:30 Temperature Pulse Rate 55 L 68 63 Pulse Rate [ Anterior Bilateral Throughout] Pulse Rate [ From Monitor] Pulse Rate [ Right Dorsalis Pedis] Respiratory 18 18 18 Rate Respiratory Rate [Anterior Bilateral Throughout] Blood Pressure 139/53 147/61 127/47 O2 Sat by Pulse 100 100 100 Oximetry 08/28/18 08/28/18 08/28/18 02:45 03:00 03:15 Temperature Pulse Rate 59 L 57 L 59 L Pulse Rate [ Anterior Bilateral Throughout] Pulse Rate [ From Monitor] Pulse Rate [ Right Dorsalis Pedis] Respiratory 18 18 18 Rate Respiratory Rate [Anterior Bilateral Throughout] Blood Pressure 128/47 136/51 129/49 O2 Sat by Pulse 100 100 100 Oximetry 08/28/18 08/28/18 08/28/18 03:30 03:45 04:00 Temperature 98.2 F Pulse Rate 56 L 55 L 56 L Pulse Rate [ Anterior Bilateral Throughout] Pulse Rate [ 59 L From Monitor] Pulse Rate [ 59 L Right Dorsalis Pedis] Respiratory 18 18 18 Rate Respiratory Rate [Anterior Bilateral Throughout] Blood Pressure 128/48 127/45 134/51 O2 Sat by Pulse 100 100 100 Oximetry 08/28/18 08/28/18 08/28/18 04:15 04:24 04:30 Temperature Pulse Rate 55 L 57 L 56 L Pulse Rate [ Anterior Bilateral Throughout] Pulse Rate [ From Monitor] Pulse Rate [ Right Dorsalis Pedis] Respiratory 18 18 Rate Respiratory Rate [Anterior Bilateral Throughout] Blood Pressure 127/48 127/48 134/52 O2 Sat by Pulse 100 100 100 Oximetry 08/28/18 08/28/18 08/28/18 04:45 05:00 05:15 Temperature Pulse Rate 57 L 59 L 73 Pulse Rate [ Anterior Bilateral Throughout] Pulse Rate [ From Monitor] Pulse Rate [ Right Dorsalis Pedis] Respiratory 18 18 13 Rate Respiratory Rate [Anterior Bilateral Throughout] Blood Pressure 132/52 131/51 123/64 O2 Sat by Pulse 98 98 86 Oximetry 08/28/18 08/28/18 08/28/18 05:30 05:45 06:00 Temperature Pulse Rate 79 70 60 Pulse Rate [ Anterior Bilateral Throughout] Pulse Rate [ From Monitor] Pulse Rate [ Right Dorsalis Pedis] Respiratory 17 18 18 Rate Respiratory Rate [Anterior Bilateral Throughout] Blood Pressure 112/55 126/51 127/51 O2 Sat by Pulse 96 98 99 Oximetry 08/28/18 08/28/18 08/28/18 06:15 07:28 07:29 Temperature Pulse Rate 57 L 58 L Pulse Rate [ 78 Anterior Bilateral Throughout] Pulse Rate [ From Monitor] Pulse Rate [ Right Dorsalis Pedis] Respiratory 18 Rate Respiratory 18 Rate [Anterior Bilateral Throughout] Blood Pressure 137/54 143/54 O2 Sat by Pulse 99 99 Oximetry 08/28/18 07:38 Temperature Pulse Rate Pulse Rate [ 74 Anterior Bilateral Throughout] Pulse Rate [ From Monitor] Pulse Rate [ Right Dorsalis Pedis] Respiratory Rate Respiratory 18 Rate [Anterior Bilateral Throughout] Blood Pressure O2 Sat by Pulse Oximetry - General Appearance General appearance: intubated EENT: ATNC, other (ETT in place) Respiratory: Present: Other (coarse breath sounds) Cardiology: regular, S1S2 Gastrointestinal: no tenderness, no distended, obese Musculoskeletal: other (Trace edema) - Lab 08/28/18 04:49 08/28/18 04:49 Most recent lab results Calcium 7.7 mg/dL (8.4-10.2) L 08/28/18 04:49 Magnesium 2.30 mg/dL (1.7-2.3) 08/23/18 14:24 Medications & Allergies - Medications Allergies/Adverse Reactions: Allergies Penicillins Allergy (Verified 08/21/18 04:49) Unknown -cillins Allergy (Uncoded 08/21/18 04:49) Unknown Home Medications: Home Medications Medication Instructions Recorded Confirmed Last Taken Type AtorvaSTATin [Lipitor] 10 mg PO QHS 08/21/18 08/21/18 Unknown History Ferrous Sulfate [Feosol] 325 mg PO QDAY 08/21/18 08/21/18 Unknown History Melatonin [Melatonin 10MG CAP] 10 mg PO DAILY 08/21/18 08/21/18 Unknown History NIFEdipine [Nifedipine ER] 60 mg PO BID 08/21/18 08/21/18 Unknown History Sennosides Tab [Senokot] 1 tab PO HS 08/21/18 08/21/18 Unknown History Tamsulosin [Flomax] 2 cap PO HS 08/21/18 08/21/18 Unknown History Torsemide [Demadex] 20 mg PO DAILY 08/21/18 08/21/18 Unknown History Venlafaxine HCl [Venlafaxin ER] 75 mg PO QDAY 08/21/18 08/21/18 Unknown History buPROPion [Wellbutrin] 100 mg PO DAILY 08/21/18 08/21/18 Unknown History Active Medications: Generic Name Dose Route Start Last Admin Trade Name Freq PRN Reason Stop Dose Admin Acetaminophen 650 mg 08/21/18 06:31 Tylenol PO Q4H PRN Pain MILD(1-3)/Fever >100.5/COOK Acetaminophen 650 mg 08/21/18 06:31 Tylenol DE Q4H PRN Pain MILD(1-3)/Fever >100.5/COOK Albuterol/Ipratropium 1 ampul 08/24/18 20:00 08/28/18 07:28 Duoneb *Not For Prn Use* IH 1 ampul BIDRT LUIS Administration Lipase/Protease/Amylase 1 each 08/26/18 12:07 [place] 10,500 Unit FEEDTUBE PRN PRN For Clogged Feeding Tube Arformoterol Tartrate 15 mcg 08/24/18 20:00 08/28/18 07:28 Brovana Nebu IH 15 mcg Q12HRT LUIS Administration Bisacodyl 10 mg 08/25/18 16:00 08/27/18 10:44 Dulcolax DE 10 mg QDAY LUIS Administration Budesonide 0.5 mg 08/24/18 20:00 08/28/18 07:28 Pulmicort IH 0.5 mg Q12HRT LUIS Administration Dextrose 50 ml 08/21/18 06:48 D50w (25gm) Syringe IV PRN PRN Hypoglycemia Famotidine 20 mg 08/25/18 10:00 08/27/18 10:44 Pepcid IV 20 mg DAILY LUIS Administration Fentanyl 50 mcg 08/26/18 16:26 Sublimaze IV Q10MIN PRN ANALGESIA Heparin Sodium (Porcine) 5,000 unit 08/22/18 10:00 08/27/18 22:25 Heparin SUB-Q 5,000 unit Q12HR LUIS Administration Hydralazine HCl 10 mg 08/26/18 15:08 08/26/18 15:19 Apresoline IV 10 mg Q6H PRN Administration Hypertension Hydrophilic Ointment 1 applic 08/21/18 11:34 Vaseline Lip Therapy TP Q2HR PRN Dry Lips Midazolam HCl 100 mg/ Sodium 100 mls @ 2 mls/hr 08/21/18 15:00 08/24/18 18:21 Chloride IV 0 mg/hr TITR LUIS 0 mls/hr Titration Protocol 2 MG/HR Levetiracetam 750 mg/ Dextrose 107.5 mls @ 400 mls/hr 08/24/18 22:00 08/27/18 22:27 IV 400 mls/hr Q12HR LUIS Administration Cefazolin Sodium 2 gm/ Sodium 100 mls @ 200 mls/hr 08/25/18 10:00 08/27/18 10:44 Chloride IV 200 mls/hr Q24HR LUIS Administration Propofol 1,000 mg in 100 mls @ 4.389 mls/hr 08/26/18 18:00 08/28/18 04:59 Diprivan 10 Mg/Ml IV 10 mcg/kg/min TITR LUIS 8.778 mls/hr Administration Protocol 5 MCG/KG/MIN Fentanyl Citrate 2,000 mcg in 100 mls @ 7.053 mls/hr 08/27/18 12:00 08/28/18 05:04 Fentanyl Drip Premix IV 2 mcg/kg/hr TITR LUIS 14.107 mls/hr Administration Protocol 1 MCG/KG/HR Insulin Human Lispro 0 unit 08/21/18 12:00 08/28/18 05:06 Humalog SUB-Q Not Given Q6HR [facility] Protocol Methylprednisolone Sodium Succinate 20 mg 08/26/18 10:00 08/26/18 10:42 Solu-Medrol IV 08/29/18 10:01 20 mg Q24HR LUIS Administration Metoclopramide HCl 10 mg 08/25/18 18:00 08/27/18 05:27 Reglan IV 10 mg Q12H LUIS Administration Midazolam HCl 2 mg 08/21/18 14:32 08/21/18 14:52 Versed IV 2 mg Q10MIN PRN Administration Sedation Morphine Sulfate 2 mg 08/26/18 14:24 Morphine IV Q6H PRN Pain, Moderate (4-6) Multi-Ingred Cream/Lotion/Oil/Oint 1 applic 08/21/18 11:34 Artificial Tears Ophth Oint OU Q4HR PRN Dry Eye(s) Ondansetron HCl 4 mg 08/21/18 06:31 Zofran IV Q8H PRN Nausea And Vomiting Polyethylene Glycol 17 gm 08/26/18 10:00 08/27/18 10:44 Miralax 3350 PO 17 gm QDAY LUIS Administration Simple Syrup 15 ml 08/26/18 12:07 Simple Syrup FEEDTUBE PRN PRN Hypoglycemia Simple Syrup 30 ml 08/26/18 12:07 Simple Syrup FEEDTUBE PRN PRN Hypoglycemia Sodium Bicarbonate 325 mg 08/26/18 12:07 Sodium Bicarbonate FEEDTUBE PRN PRN For Clogged Feeding Tube Sodium Chloride 10 ml 08/21/18 10:00 08/27/18 22:28 Sodium Chloride Flush Syringe 10 Ml IV 10 ml BID LUIS Administration Sodium Chloride 10 ml 08/21/18 06:31 Sodium Chloride Flush Syringe 10 Ml IV PRN PRN LINE FLUSH
--- NOTE | 2018-08-28 10:10 | Progress Note ---
Assessment and Plan s/p Cardiopulmonary arrest with ROSC Acute on chronic hypoxemic respiratory failure on MVS Lactic acidosis Acute metabolic/respiratory acidosis Acute on chronic renal failure (multifactorial) Sepsis probably secondary to aspiration PNA AE-COPD Acute metabolic-toxic encephalopathy Morbid obesity NSTEMI- probably type 2 ischemia Type 2 DM h/o Liver disease h/o Colon CA Hyperkalemia LEFT TMJ JOINT DISLOCATION-POA - reduce set rate to 12/min - discontinue kessler catheter if OK with nephrology - surgery evaluation negative for bowel obstruction and now tolerating tube feeds well - continue HD/UF for toxin and volume clearance - Dopplers negative but D-dimer elevated; will consider CTA as VQ not possible while intubated - continue brovana and pulmicort for severe COPD history / exacerbation (reduced JENELLE frequency) - non-oliguric - continue daily SATs and SBTs as tolerated (titrate sedation for RASS 0 to -1) - s/p EEG - neurology evaluation ongoing - Will need maxillo facial surgery for evaluation of TMJ dislocation - continue enteral nutrition with aspiration precautions...HOB >40 - continue Rglan - continue lung protective strategies - serial CXR and ABG acutely - VAP bundle addressed - continue supplemental oxygen to keep O2 sats >/= 88-90% - continue restrictive oxygen therapy acutely - continue bronchodilators with pulmonary hygiene per RT - continue systemic steroids with slow taper - continue accuchecks with glycemic control per SSI for target blood glucose <180mg/dL - Agitation management - Prevention of delirium, maintenance of sleep-wake cycle - Antibiotics per ID (currently on levofloxacin and vancomycin) - MSSA pneumonia and contact precautions stopped - Avoid nephrotoxic agents, adjust all antibiotics and medications for CrCL and GFR - VTE and Stress ulcer prophylaxis( Heparin/Famotidine) - Kessler catheter in this critically ill patient with acute on chronic renal failure, requiring strict intake and output monitoring (Will assess daily, the need for ongoing Kessler catheter) - continue other care per attending / other consultants .... care plan discussed at length with his daughter in room Discussed in ICU-IDT rounds CONDITION: CRITICAL PROGNOSIS: GUARDED CODE STATUS: FULL CODE The high probability of a clinically significant, sudden or life-threatening deterioration of the [respiratory, cardiovascular, renal, gastrointestinal, neurology] system(s) required my full and direct attention, intervention and personal management. The aggregate critical care time was [35 ] minutes without overlap. Time includes spent on; [x] Data Review and interpretation [x] Patient assessment and monitoring of vital signs [x] Documentation [x] Medication orders and management Subjective Date of service: 08/28/18 Principal diagnosis: s/p cardiac arrest; severe sepsis; acute hypoxemic- hypercapnic resp failure Interval history: Patient is seen today for: cardiopulmonary arrest; severe sepsis; acute hypoxemic-hypercapnic respiratory failure on MVS; edgar on ckd Seen and examined at bedside; 24hour events reviewed; nursing and respiratory care staff consulted; no adverse overnight events reported to me; resting peacefully in bed; a little more alert; tenuously tolerating SBT; daughter in room; now with spontaneous movt to all extremities and following simple commands; No N/V/F/C; tolerating dialysis well so far Objective Vital Signs - 12hr 08/27/18 08/27/18 08/27/18 22:15 22:30 22:45 Temperature Pulse Rate 55 L 60 61 Pulse Rate [ Anterior Bilateral Throughout] Pulse Rate [ From Monitor] Pulse Rate [ Right Dorsalis Pedis] Respiratory 18 18 18 Rate Respiratory Rate [Anterior Bilateral Throughout] Blood Pressure 167/73 147/56 145/57 O2 Sat by Pulse 100 100 100 Oximetry 08/27/18 08/27/18 08/27/18 23:00 23:15 23:30 Temperature Pulse Rate 59 L 63 74 Pulse Rate [ Anterior Bilateral Throughout] Pulse Rate [ From Monitor] Pulse Rate [ Right Dorsalis Pedis] Respiratory 18 18 19 Rate Respiratory Rate [Anterior Bilateral Throughout] Blood Pressure 133/49 136/49 136/53 O2 Sat by Pulse 100 100 100 Oximetry 08/27/18 08/27/18 08/27/18 23:41 23:45 23:57 Temperature Pulse Rate 63 63 62 Pulse Rate [ Anterior Bilateral Throughout] Pulse Rate [ From Monitor] Pulse Rate [ Right Dorsalis Pedis] Respiratory 18 18 Rate Respiratory Rate [Anterior Bilateral Throughout] Blood Pressure 145/57 118/43 126/51 O2 Sat by Pulse 100 100 100 Oximetry 08/28/18 08/28/18 08/28/18 00:00 00:15 00:30 Temperature 98.6 F Pulse Rate 61 58 L 58 L Pulse Rate [ Anterior Bilateral Throughout] Pulse Rate [ 60 From Monitor] Pulse Rate [ 60 Right Dorsalis Pedis] Respiratory 18 19 18 Rate Respiratory Rate [Anterior Bilateral Throughout] Blood Pressure 126/51 129/51 129/49 O2 Sat by Pulse 100 100 100 Oximetry 08/28/18 08/28/18 08/28/18 00:45 01:00 01:15 Temperature Pulse Rate 54 L 56 L 55 L Pulse Rate [ Anterior Bilateral Throughout] Pulse Rate [ From Monitor] Pulse Rate [ Right Dorsalis Pedis] Respiratory 18 18 18 Rate Respiratory Rate [Anterior Bilateral Throughout] Blood Pressure 131/49 131/49 134/50 O2 Sat by Pulse 100 100 100 Oximetry 08/28/18 08/28/18 08/28/18 01:30 01:45 02:00 Temperature Pulse Rate 55 L 54 L 55 L Pulse Rate [ Anterior Bilateral Throughout] Pulse Rate [ From Monitor] Pulse Rate [ Right Dorsalis Pedis] Respiratory 18 18 18 Rate Respiratory Rate [Anterior Bilateral Throughout] Blood Pressure 135/54 134/50 139/53 O2 Sat by Pulse 100 100 100 Oximetry 08/28/18 08/28/18 08/28/18 02:15 02:30 02:45 Temperature Pulse Rate 68 63 59 L Pulse Rate [ Anterior Bilateral Throughout] Pulse Rate [ From Monitor] Pulse Rate [ Right Dorsalis Pedis] Respiratory 18 18 18 Rate Respiratory Rate [Anterior Bilateral Throughout] Blood Pressure 147/61 127/47 128/47 O2 Sat by Pulse 100 100 100 Oximetry 08/28/18 08/28/18 08/28/18 03:00 03:15 03:30 Temperature Pulse Rate 57 L 59 L 56 L Pulse Rate [ Anterior Bilateral Throughout] Pulse Rate [ From Monitor] Pulse Rate [ Right Dorsalis Pedis] Respiratory 18 18 18 Rate Respiratory Rate [Anterior Bilateral Throughout] Blood Pressure 136/51 129/49 128/48 O2 Sat by Pulse 100 100 100 Oximetry 08/28/18 08/28/18 08/28/18 03:45 04:00 04:15 Temperature 98.2 F Pulse Rate 55 L 56 L 55 L Pulse Rate [ Anterior Bilateral Throughout] Pulse Rate [ 59 L From Monitor] Pulse Rate [ 59 L Right Dorsalis Pedis] Respiratory 18 18 18 Rate Respiratory Rate [Anterior Bilateral Throughout] Blood Pressure 127/45 134/51 127/48 O2 Sat by Pulse 100 100 100 Oximetry 08/28/18 08/28/18 08/28/18 04:24 04:30 04:45 Temperature Pulse Rate 57 L 56 L 57 L Pulse Rate [ Anterior Bilateral Throughout] Pulse Rate [ From Monitor] Pulse Rate [ Right Dorsalis Pedis] Respiratory 18 18 Rate Respiratory Rate [Anterior Bilateral Throughout] Blood Pressure 127/48 134/52 132/52 O2 Sat by Pulse 100 100 98 Oximetry 08/28/18 08/28/18 08/28/18 05:00 05:15 05:30 Temperature Pulse Rate 59 L 73 79 Pulse Rate [ Anterior Bilateral Throughout] Pulse Rate [ From Monitor] Pulse Rate [ Right Dorsalis Pedis] Respiratory 18 13 17 Rate Respiratory Rate [Anterior Bilateral Throughout] Blood Pressure 131/51 123/64 112/55 O2 Sat by Pulse 98 86 96 Oximetry 08/28/18 08/28/18 08/28/18 05:45 06:00 06:15 Temperature Pulse Rate 70 60 57 L Pulse Rate [ Anterior Bilateral Throughout] Pulse Rate [ From Monitor] Pulse Rate [ Right Dorsalis Pedis] Respiratory 18 18 18 Rate Respiratory Rate [Anterior Bilateral Throughout] Blood Pressure 126/51 127/51 137/54 O2 Sat by Pulse 98 99 99 Oximetry 08/28/18 08/28/18 08/28/18 07:28 07:29 07:38 Temperature Pulse Rate 58 L Pulse Rate [ 78 74 Anterior Bilateral Throughout] Pulse Rate [ From Monitor] Pulse Rate [ Right Dorsalis Pedis] Respiratory Rate Respiratory 18 18 Rate [Anterior Bilateral Throughout] Blood Pressure 143/54 O2 Sat by Pulse 99 Oximetry Constitutional: alert, appears uncomfortable, other (morbidly obese, orally intubated, 7.5ETT at 24cm at the lip, no dys-synchrony) Eyes: non-icteric ENT: oropharynx moist, other (orally intubated, ETT 8, 24cm at the lip, OGT in place) Neck: supple, no JVD, other (short neck) Effort: mildly labored Ascultation: Bilateral: diminished breath sounds, rhonchi (coarse BS bilaterally) Percussion: Bilateral: not dull Cardiovascular: regular rate and rhythm, other (S1,S2, no murmurs, no gallops or rubs) Gastrointestinal: normoactive bowel sounds, soft, non-tender, non-distended, other (Kessler catheter in place, minimal urine tea colored) Integumentary: normal Extremities: no cyanosis, no edema, pink and warm, pulses normal, no ischemia or petechiae Neurologic: normal mental status, non-focal exam (grossly), pupils equal and round, CN II-XII normal Psychiatric: mood appropriate, affect normal, other CBC and BMP: 08/29/18 05:35 08/29/18 05:35 ABG, PT/INR, D-dimer: ABG POC ABG pH 7.425 (7.35-7.45) 08/28/18 04:38 POC ABG pCO2 43.7 (35-45) 08/28/18 04:38 POC ABG pO2 112 (80-105) H 08/28/18 04:38 POC ABG HCO3 28.7 (22-26 mml/L) 08/28/18 04:38 POC ABG Total CO2 30 (23-27mmol/L) 08/28/18 04:38 POC ABG O2 Sat 98 08/28/18 04:38 PT/INR, D-dimer PT 15.6 Sec. (12.2-14.9) H 08/25/18 16:43 INR 1.27 (0.87-1.13) H 08/25/18 16:43 1978.25 ng/mlDDU (0-234) H 08/24/18 13:41 Abnormal lab findings: Abnormal Labs 08/21/18 08/21/18 08/21/18 04:42 04:42 04:42 WBC 19.1 H RBC 2.49 L Hgb 7.7 L Hct 24.5 L MCV 98 H RDW 17.7 H Plt Count Seg Neuts % (Manual) 84.0 H Lymphocytes % (Manual) 7.0 L Monocytes % (Manual) 9.0 H Nucleated RBC % Seg Neutrophils # Man 16.0 H Lymphocytes # (Manual) Monocytes # (Manual) 1.7 H PT 20.1 H INR 1.76 H D-Dimer POC ABG pH POC ABG pCO2 POC ABG pO2 Sodium Potassium Chloride Carbon Dioxide BUN Creatinine Glucose POC Glucose Lactic Acid Calcium Total Bilirubin AST ALT Total Creatine Kinase CK-MB (CK-2) CK-MB (CK-2) Rel Index Troponin T 0.032 H C-Reactive Protein NT-Pro-B Natriuret Pep Total Protein Albumin LDL Cholesterol Direct 44 L Urine WBC (Auto) 08/21/18 08/21/18 08/21/18 04:42 04:42 04:42 WBC RBC Hgb Hct MCV RDW Plt Count Seg Neuts % (Manual) Lymphocytes % (Manual) Monocytes % (Manual) Nucleated RBC % Seg Neutrophils # Man Lymphocytes # (Manual) Monocytes # (Manual) PT INR D-Dimer POC ABG pH POC ABG pCO2 POC ABG pO2 Sodium Potassium 6.0 H Chloride Carbon Dioxide 15 L BUN 57 H Creatinine 4.3 H Glucose 111 H POC Glucose Lactic Acid 5.80 H* Calcium Total Bilirubin 1.80 H AST 212 H ALT 94 H Total Creatine Kinase CK-MB (CK-2) CK-MB (CK-2) Rel Index Troponin T C-Reactive Protein NT-Pro-B Natriuret Pep 76610 H Total Protein Albumin 3.2 L LDL Cholesterol Direct Urine WBC (Auto) 08/21/18 08/21/18 08/21/18 05:08 05:58 05:58 WBC RBC Hgb Hct MCV RDW Plt Count Seg Neuts % (Manual) Lymphocytes % (Manual) Monocytes % (Manual) Nucleated RBC % Seg Neutrophils # Man Lymphocytes # (Manual) Monocytes # (Manual) PT INR D-Dimer POC ABG pH 7.164 L POC ABG pCO2 46.3 H POC ABG pO2 229 H Sodium Potassium Chloride Carbon Dioxide BUN Creatinine Glucose POC Glucose Lactic Acid 5.10 H* Calcium Total Bilirubin AST ALT Total Creatine Kinase CK-MB (CK-2) CK-MB (CK-2) Rel Index Troponin T 0.035 H C-Reactive Protein NT-Pro-B Natriuret Pep Total Protein Albumin LDL Cholesterol Direct Urine WBC (Auto) 08/21/18 08/21/18 08/21/18 06:45 06:45 06:53 WBC RBC Hgb Hct MCV RDW Plt Count Seg Neuts % (Manual) Lymphocytes % (Manual) Monocytes % (Manual) Nucleated RBC % Seg Neutrophils # Man Lymphocytes # (Manual) Monocytes # (Manual) PT INR D-Dimer POC ABG pH 7.160 L POC ABG pCO2 46.8 H POC ABG pO2 Sodium Potassium Chloride Carbon Dioxide BUN Creatinine Glucose POC Glucose Lactic Acid 4.70 H* Calcium Total Bilirubin AST ALT Total Creatine Kinase 234 H CK-MB (CK-2) 9.1 H CK-MB (CK-2) Rel Index Troponin T 0.032 H C-Reactive Protein NT-Pro-B Natriuret Pep Total Protein Albumin LDL Cholesterol Direct Urine WBC (Auto) 0608/21/18 08/21/18 10:43 10:43 10:45 WBC RBC Hgb Hct MCV RDW Plt Count Seg Neuts % (Manual) Lymphocytes % (Manual) Monocytes % (Manual) Nucleated RBC % Seg Neutrophils # Man Lymphocytes # (Manual) Monocytes # (Manual) PT INR D-Dimer POC ABG pH POC ABG pCO2 POC ABG pO2 Sodium Potassium Chloride Carbon Dioxide 17 L BUN 59 H Creatinine 4.2 H Glucose POC Glucose Lactic Acid 3.70 H* Calcium Total Bilirubin AST ALT Total Creatine Kinase 222 H CK-MB (CK-2) 9.2 H CK-MB (CK-2) Rel Index 4.1 H Troponin T 0.044 H D C-Reactive Protein NT-Pro-B Natriuret Pep Total Protein Albumin LDL Cholesterol Direct Urine WBC (Auto) 08/21/18 08/21/18 08/21/18 11:38 12:33 15:03 WBC RBC Hgb Hct MCV RDW Plt Count Seg Neuts % (Manual) Lymphocytes % (Manual) Monocytes % (Manual) Nucleated RBC % Seg Neutrophils # Man Lymphocytes # (Manual) Monocytes # (Manual) PT INR D-Dimer POC ABG pH 7.250 L POC ABG pCO2 POC ABG pO2 121 H Sodium Potassium Chloride Carbon Dioxide BUN Creatinine Glucose POC Glucose 129 H Lactic Acid Calcium Total Bilirubin AST ALT Total Creatine Kinase CK-MB (CK-2) CK-MB (CK-2) Rel Index Troponin T C-Reactive Protein NT-Pro-B Natriuret Pep Total Protein Albumin LDL Cholesterol Direct Urine WBC (Auto) 13.0 H 08/21/18 08/22/18 08/22/18 15:47 00:01 04:27 WBC RBC Hgb Hct MCV RDW Plt Count Seg Neuts % (Manual) Lymphocytes % (Manual) Monocytes % (Manual) Nucleated RBC % Seg Neutrophils # Man Lymphocytes # (Manual) Monocytes # (Manual) PT INR D-Dimer POC ABG pH 7.457 H POC ABG pCO2 POC ABG pO2 117 H Sodium Potassium Chloride Carbon Dioxide BUN Creatinine Glucose POC Glucose 211 H Lactic Acid 2.70 H* Calcium Total Bilirubin AST ALT Total Creatine Kinase CK-MB (CK-2) CK-MB (CK-2) Rel Index Troponin T C-Reactive Protein NT-Pro-B Natriuret Pep Total Protein Albumin LDL Cholesterol Direct Urine WBC (Auto) 0608/22/18 08/22/18 05:46 06:10 06:10 WBC RBC 2.27 L Hgb 7.0 L Hct 21.2 L MCV RDW 16.8 H Plt Count 129 L Seg Neuts % (Manual) 95.0 H Lymphocytes % (Manual) 1.0 L Monocytes % (Manual) Nucleated RBC % 1.0 H Seg Neutrophils # Man 7.8 H Lymphocytes # (Manual) 0.1 L Monocytes # (Manual) PT INR D-Dimer POC ABG pH POC ABG pCO2 POC ABG pO2 Sodium Potassium Chloride Carbon Dioxide 20 L BUN 63 H Creatinine 3.9 H Glucose 205 H POC Glucose 223 H Lactic Acid Calcium Total Bilirubin AST ALT Total Creatine Kinase CK-MB (CK-2) CK-MB (CK-2) Rel Index Troponin T C-Reactive Protein NT-Pro-B Natriuret Pep Total Protein Albumin LDL Cholesterol Direct Urine WBC (Auto) 08/22/18 08/22/18 08/22/18 06:10 12:57 16:21 WBC RBC Hgb Hct MCV RDW Plt Count Seg Neuts % (Manual) Lymphocytes % (Manual) Monocytes % (Manual) Nucleated RBC % Seg Neutrophils # Man Lymphocytes # (Manual) Monocytes # (Manual) PT INR D-Dimer POC ABG pH 7.477 H POC ABG pCO2 POC ABG pO2 Sodium Potassium Chloride Carbon Dioxide BUN Creatinine Glucose POC Glucose 166 H Lactic Acid Calcium Total Bilirubin AST ALT Total Creatine Kinase CK-MB (CK-2) CK-MB (CK-2) Rel Index Troponin T C-Reactive Protein 23.60 H NT-Pro-B Natriuret Pep Total Protein Albumin LDL Cholesterol Direct Urine WBC (Auto) 08/22/18 08/22/18 08/23/18 17:41 23:42 04:38 WBC RBC Hgb Hct MCV RDW Plt Count Seg Neuts % (Manual) Lymphocytes % (Manual) Monocytes % (Manual) Nucleated RBC % Seg Neutrophils # Man Lymphocytes # (Manual) Monocytes # (Manual) PT INR D-Dimer POC ABG pH 7.249 L POC ABG pCO2 53.5 H POC ABG pO2 73 L Sodium Potassium Chloride Carbon Dioxide BUN Creatinine Glucose POC Glucose 131 H 168 H Lactic Acid Calcium Total Bilirubin AST ALT Total Creatine Kinase CK-MB (CK-2) CK-MB (CK-2) Rel Index Troponin T C-Reactive Protein NT-Pro-B Natriuret Pep Total Protein Albumin LDL Cholesterol Direct Urine WBC (Auto) 08/23/18 08/23/18 08/23/18 04:52 04:52 04:52 WBC RBC 2.39 L Hgb 7.5 L Hct 22.8 L MCV 95 H RDW 17.6 H Plt Count Seg Neuts % (Manual) Lymphocytes % (Manual) Monocytes % (Manual) Nucleated RBC % Seg Neutrophils # Man Lymphocytes # (Manual) Monocytes # (Manual) PT INR D-Dimer POC ABG pH POC ABG pCO2 POC ABG pO2 Sodium Potassium 5.6 H 5.6 H Chloride Carbon Dioxide 21 L BUN 71 H 72 H Creatinine 4.1 H 4.0 H Glucose 141 H 140 H POC Glucose Lactic Acid Calcium 8.3 L 8.2 L Total Bilirubin AST 247 H ALT 220 H Total Creatine Kinase CK-MB (CK-2) CK-MB (CK-2) Rel Index Troponin T C-Reactive Protein NT-Pro-B Natriuret Pep Total Protein Albumin 2.8 L LDL Cholesterol Direct Urine WBC (Auto) 08/23/18 08/23/18 08/23/18 05:50 08:38 12:21 WBC RBC Hgb Hct MCV RDW Plt Count Seg Neuts % (Manual) Lymphocytes % (Manual) Monocytes % (Manual) Nucleated RBC % Seg Neutrophils # Man Lymphocytes # (Manual) Monocytes # (Manual) PT INR D-Dimer POC ABG pH POC ABG pCO2 POC ABG pO2 Sodium Potassium Chloride Carbon Dioxide BUN Creatinine Glucose POC Glucose 160 H 177 H Lactic Acid Calcium Total Bilirubin AST ALT Total Creatine Kinase CK-MB (CK-2) CK-MB (CK-2) Rel Index Troponin T C-Reactive Protein NT-Pro-B Natriuret Pep 16669 H Total Protein Albumin LDL Cholesterol Direct Urine WBC (Auto) 08/23/18 08/23/18 08/23/18 12:36 14:24 18:05 WBC RBC Hgb Hct MCV RDW Plt Count Seg Neuts % (Manual) Lymphocytes % (Manual) Monocytes % (Manual) Nucleated RBC % Seg Neutrophils # Man Lymphocytes # (Manual) Monocytes # (Manual) PT INR D-Dimer POC ABG pH 7.337 L POC ABG pCO2 POC ABG pO2 145 H Sodium 136 L Potassium 5.2 H Chloride Carbon Dioxide BUN 76 H Creatinine 4.2 H Glucose 158 H POC Glucose 169 H Lactic Acid Calcium 8.1 L Total Bilirubin AST ALT Total Creatine Kinase CK-MB (CK-2) CK-MB (CK-2) Rel Index Troponin T C-Reactive Protein NT-Pro-B Natriuret Pep Total Protein Albumin LDL Cholesterol Direct Urine WBC (Auto) 08/23/18 08/23/18 08/24/18 22:43 23:42 05:16 WBC RBC Hgb Hct MCV RDW Plt Count Seg Neuts % (Manual) Lymphocytes % (Manual) Monocytes % (Manual) Nucleated RBC % Seg Neutrophils # Man Lymphocytes # (Manual) Monocytes # (Manual) PT INR D-Dimer POC ABG pH POC ABG pCO2 POC ABG pO2 Sodium 136 L Potassium 5.3 H 5.2 H Chloride 97.9 L Carbon Dioxide BUN 80 H 86 H Creatinine 4.0 H 4.3 H Glucose 164 H 202 H POC Glucose 183 H Lactic Acid Calcium 7.9 L Total Bilirubin AST ALT Total Creatine Kinase CK-MB (CK-2) CK-MB (CK-2) Rel Index Troponin T C-Reactive Protein NT-Pro-B Natriuret Pep Total Protein Albumin LDL Cholesterol Direct Urine WBC (Auto) 08/24/18 08/24/18 08/24/18 05:21 05:29 10:10 WBC RBC 2.47 L Hgb 7.5 L Hct 23.3 L MCV RDW 17.5 H Plt Count 118 L Seg Neuts % (Manual) 92.0 H Lymphocytes % (Manual) 2.0 L Monocytes % (Manual) Nucleated RBC % Seg Neutrophils # Man 8.8 H Lymphocytes # (Manual) 0.2 L Monocytes # (Manual) PT INR D-Dimer POC ABG pH 7.243 L POC ABG pCO2 56.8 H POC ABG pO2 Sodium Potassium Chloride Carbon Dioxide BUN Creatinine Glucose POC Glucose 209 H Lactic Acid Calcium Total Bilirubin AST ALT Total Creatine Kinase CK-MB (CK-2) CK-MB (CK-2) Rel Index Troponin T C-Reactive Protein NT-Pro-B Natriuret Pep Total Protein Albumin LDL Cholesterol Direct Urine WBC (Auto) 08/24/18 08/24/18 08/24/18 10:10 11:19 13:41 WBC RBC Hgb Hct MCV RDW Plt Count Seg Neuts % (Manual) Lymphocytes % (Manual) Monocytes % (Manual) Nucleated RBC % Seg Neutrophils # Man Lymphocytes # (Manual) Monocytes # (Manual) PT INR D-Dimer 1978.25 H POC ABG pH POC ABG pCO2 POC ABG pO2 Sodium Potassium Chloride Carbon Dioxide BUN Creatinine Glucose POC Glucose 212 H Lactic Acid Calcium Total Bilirubin AST ALT Total Creatine Kinase CK-MB (CK-2) CK-MB (CK-2) Rel Index Troponin T C-Reactive Protein NT-Pro-B Natriuret Pep 46817 H Total Protein Albumin LDL Cholesterol Direct Urine WBC (Auto) 08/24/18 08/24/18 08/24/18 13:41 14:27 17:23 WBC RBC Hgb Hct MCV RDW Plt Count Seg Neuts % (Manual) Lymphocytes % (Manual) Monocytes % (Manual) Nucleated RBC % Seg Neutrophils # Man Lymphocytes # (Manual) Monocytes # (Manual) PT INR D-Dimer POC ABG pH POC ABG pCO2 POC ABG pO2 Sodium 136 L Potassium 5.1 H Chloride 97.8 L Carbon Dioxide BUN 90 H Creatinine 4.1 H Glucose 157 H POC Glucose 155 H Lactic Acid Calcium 8.0 L Total Bilirubin AST ALT Total Creatine Kinase CK-MB (CK-2) CK-MB (CK-2) Rel Index Troponin T C-Reactive Protein 9.00 H NT-Pro-B Natriuret Pep Total Protein Albumin LDL Cholesterol Direct Urine WBC (Auto) 08/25/18 08/25/18 08/25/18 00:38 05:22 05:57 WBC RBC Hgb Hct MCV RDW Plt Count Seg Neuts % (Manual) Lymphocytes % (Manual) Monocytes % (Manual) Nucleated RBC % Seg Neutrophils # Man Lymphocytes # (Manual) Monocytes # (Manual) PT INR D-Dimer POC ABG pH 7.238 L POC ABG pCO2 58.2 H POC ABG pO2 Sodium Potassium 5.4 H Chloride Carbon Dioxide BUN 98 H Creatinine 4.3 H Glucose 217 H POC Glucose 176 H Lactic Acid Calcium 8.3 L Total Bilirubin AST ALT Total Creatine Kinase CK-MB (CK-2) CK-MB (CK-2) Rel Index Troponin T C-Reactive Protein NT-Pro-B Natriuret Pep 72848 H Total Protein Albumin LDL Cholesterol Direct Urine WBC (Auto) 08/25/18 08/25/18 08/25/18 06:56 08:59 11:38 WBC RBC Hgb Hct MCV RDW Plt Count Seg Neuts % (Manual) Lymphocytes % (Manual) Monocytes % (Manual) Nucleated RBC % Seg Neutrophils # Man Lymphocytes # (Manual) Monocytes # (Manual) PT INR D-Dimer POC ABG pH 7.348 L POC ABG pCO2 48.6 H POC ABG pO2 Sodium Potassium Chloride Carbon Dioxide BUN Creatinine Glucose POC Glucose 247 H 235 H Lactic Acid Calcium Total Bilirubin AST ALT Total Creatine Kinase CK-MB (CK-2) CK-MB (CK-2) Rel Index Troponin T C-Reactive Protein NT-Pro-B Natriuret Pep Total Protein Albumin LDL Cholesterol Direct Urine WBC (Auto) 08/25/18 08/25/18 08/25/18 12:29 16:43 16:43 WBC 14.7 H RBC 2.90 L Hgb 8.9 L Hct 27.4 L MCV 95 H RDW 17.3 H Plt Count 119 L Seg Neuts % (Manual) 94.0 H Lymphocytes % (Manual) 2.0 L Monocytes % (Manual) Nucleated RBC % Seg Neutrophils # Man 13.8 H Lymphocytes # (Manual) 0.3 L Monocytes # (Manual) PT 15.6 H INR 1.27 H D-Dimer POC ABG pH POC ABG pCO2 POC ABG pO2 Sodium Potassium Chloride Carbon Dioxide BUN Creatinine Glucose POC Glucose 237 H Lactic Acid Calcium Total Bilirubin AST ALT Total Creatine Kinase CK-MB (CK-2) CK-MB (CK-2) Rel Index Troponin T C-Reactive Protein NT-Pro-B Natriuret Pep Total Protein Albumin LDL Cholesterol Direct Urine WBC (Auto) 08/25/18 08/26/18 08/26/18 17:22 00:16 04:56 WBC RBC Hgb Hct MCV RDW Plt Count Seg Neuts % (Manual) Lymphocytes % (Manual) Monocytes % (Manual) Nucleated RBC % Seg Neutrophils # Man Lymphocytes # (Manual) Monocytes # (Manual) PT INR D-Dimer POC ABG pH POC ABG pCO2 45.2 H POC ABG pO2 Sodium Potassium Chloride Carbon Dioxide BUN Creatinine Glucose POC Glucose 200 H 180 H Lactic Acid Calcium Total Bilirubin AST ALT Total Creatine Kinase CK-MB (CK-2) CK-MB (CK-2) Rel Index Troponin T C-Reactive Protein NT-Pro-B Natriuret Pep Total Protein Albumin LDL Cholesterol Direct Urine WBC (Auto) 08/26/18 08/26/18 08/26/18 05:53 06:20 08:48 WBC RBC Hgb Hct MCV RDW Plt Count Seg Neuts % (Manual) Lymphocytes % (Manual) Monocytes % (Manual) Nucleated RBC % Seg Neutrophils # Man Lymphocytes # (Manual) Monocytes # (Manual) PT INR D-Dimer POC ABG pH POC ABG pCO2 POC ABG pO2 Sodium Potassium Chloride Carbon Dioxide BUN 106 H Creatinine 3.9 H Glucose 137 H POC Glucose 131 H 126 H Lactic Acid Calcium 8.1 L Total Bilirubin AST ALT Total Creatine Kinase CK-MB (CK-2) CK-MB (CK-2) Rel Index Troponin T C-Reactive Protein NT-Pro-B Natriuret Pep > 31352 H Total Protein Albumin LDL Cholesterol Direct Urine WBC (Auto) 08/26/18 08/26/18 08/26/18 11:39 17:33 18:02 WBC RBC Hgb Hct MCV RDW Plt Count Seg Neuts % (Manual) Lymphocytes % (Manual) Monocytes % (Manual) Nucleated RBC % Seg Neutrophils # Man Lymphocytes # (Manual) Monocytes # (Manual) PT INR D-Dimer POC ABG pH POC ABG pCO2 POC ABG pO2 58 L Sodium Potassium Chloride Carbon Dioxide BUN Creatinine Glucose POC Glucose 156 H 173 H Lactic Acid Calcium Total Bilirubin AST ALT Total Creatine Kinase CK-MB (CK-2) CK-MB (CK-2) Rel Index Troponin T C-Reactive Protein NT-Pro-B Natriuret Pep Total Protein Albumin LDL Cholesterol Direct Urine WBC (Auto) 08/26/18 08/27/18 08/27/18 23:12 04:59 11:51 WBC RBC Hgb Hct MCV RDW Plt Count Seg Neuts % (Manual) Lymphocytes % (Manual) Monocytes % (Manual) Nucleated RBC % Seg Neutrophils # Man Lymphocytes # (Manual) Monocytes # (Manual) PT INR D-Dimer POC ABG pH 7.563 H POC ABG pCO2 POC ABG pO2 69 L Sodium Potassium Chloride Carbon Dioxide BUN Creatinine Glucose POC Glucose 130 H 107 H Lactic Acid Calcium Total Bilirubin AST ALT Total Creatine Kinase CK-MB (CK-2) CK-MB (CK-2) Rel Index Troponin T C-Reactive Protein NT-Pro-B Natriuret Pep Total Protein Albumin LDL Cholesterol Direct Urine WBC (Auto) 08/27/18 08/27/18 08/27/18 11:58 11:58 11:58 WBC RBC 2.66 L Hgb 8.1 L Hct 24.7 L MCV RDW 16.7 H Plt Count Seg Neuts % (Manual) Lymphocytes % (Manual) Monocytes % (Manual) Nucleated RBC % Seg Neutrophils # Man Lymphocytes # (Manual) Monocytes # (Manual) PT INR D-Dimer POC ABG pH POC ABG pCO2 POC ABG pO2 Sodium Potassium Chloride Carbon Dioxide BUN 71 H Creatinine 2.9 H Glucose POC Glucose Lactic Acid Calcium 7.6 L Total Bilirubin AST ALT Total Creatine Kinase CK-MB (CK-2) CK-MB (CK-2) Rel Index Troponin T C-Reactive Protein NT-Pro-B Natriuret Pep > 50358 H Total Protein 6.1 L Albumin 2.4 L LDL Cholesterol Direct Urine WBC (Auto) 08/28/18 08/28/18 08/28/18 04:38 04:49 04:49 WBC RBC 2.65 L Hgb 8.3 L Hct 25.3 L MCV 96 H RDW 17.3 H Plt Count 83 L Seg Neuts % (Manual) Lymphocytes % (Manual) Monocytes % (Manual) Nucleated RBC % Seg Neutrophils # Man Lymphocytes # (Manual) Monocytes # (Manual) PT INR D-Dimer POC ABG pH POC ABG pCO2 POC ABG pO2 112 H Sodium Potassium Chloride Carbon Dioxide BUN Creatinine Glucose POC Glucose Lactic Acid Calcium Total Bilirubin AST ALT Total Creatine Kinase CK-MB (CK-2) CK-MB (CK-2) Rel Index Troponin T C-Reactive Protein NT-Pro-B Natriuret Pep > 98384 H Total Protein Albumin LDL Cholesterol Direct Urine WBC (Auto) 08/28/18 04:49 WBC RBC Hgb Hct MCV RDW Plt Count Seg Neuts % (Manual) Lymphocytes % (Manual) Monocytes % (Manual) Nucleated RBC % Seg Neutrophils # Man Lymphocytes # (Manual) Monocytes # (Manual) PT INR D-Dimer POC ABG pH POC ABG pCO2 POC ABG pO2 Sodium Potassium Chloride Carbon Dioxide BUN 69 H Creatinine 2.4 H Glucose POC Glucose Lactic Acid Calcium 7.7 L Total Bilirubin AST ALT Total Creatine Kinase CK-MB (CK-2) CK-MB (CK-2) Rel Index Troponin T C-Reactive Protein NT-Pro-B Natriuret Pep Total Protein 5.4 L Albumin 2.2 L LDL Cholesterol Direct Urine WBC (Auto) Chest x-ray: image reviewed (bibasilar infiltrates) Allied health notes reviewed: nursing
--- NOTE | 2018-08-28 12:00 | Progress Note ---
Assessment and Plan Cultures: 08/21/2018 Blood culture: CoNS, Diphtheroids Sputum cultures 08/21/2018 MSSA Urine cultures 08/21/2018 no growth Repeat blood cultures negative Assessment: 73 y/o male with a history of chronic kidney disease, liver disease, COPD, diabetes, GITA, colon cancer admitted on due to 4-day history of progressive shortness of breath and right neck/face edema and tenderness associated with poor po intake, patient became unresponsive en route. EMS unable to intubate. Pt bagged with 100%. Patient found in asystole at the ED receiving s/p CRP. 1) Severe Sepsis s/p arrest in the ED: better, leukocytosis resolved, lactate now normal. Etiology ? pneumonia. 2) Pneumonia: likely HCAP (recent admission to [facility] for MRSA cellulitis?). CXR shows bilateral infiltrate with airspace disease on RLL. Sputum cultures 08/21/2018 MSSA. 3) CoNS and diphtheroids bacteremia: likely contaminant. Blood cultures 08/21/2018 CoNS 2 of 4 bottles. TTE no vegetations, EF 40-45%. Repeat cultures negative. 4) Acute on CKD: renally adjust abx dosing. 5) Elevated LFTs: from sepsis ? liver disease? 6) Acute encephalopathy: ? sepsis related 7) Penicillin allergy: ?unclear reaction. Tolerating Cefazolin. 8) NGT with feculent material: bowel obstruction ruled out per CT. Gen Surgery following with plans for tube feeding. Recommendations: - Continue with cefazolin IV, Day 4 of 7. Dose adjusted. MD [facility] C: [phone] O: [phone] F: [phone] Subjective Date of service: 08/28/18 Principal diagnosis: s/p cardiac arrest; severe sepsis; acute hypoxemic- hypercapnic resp failure Interval history: Remains on the vent. No fever. On trickle tube feeds. Objective - Exam Narrative Exam: Physical Exam: Constitutional: intubated. Obese Head, Ears, Nose: Normocephalic, atraumatic. External ears, nose normal. Eyes: Conjunctivae/corneas clear. No icterus. No ptosis. Neck: Supple, no meningeal signs Oral: intubated Cardiovascular: S1, S2 normal. Respiratory: Good air entry, clear to auscultation bilaterally GI: Soft, non-tender; bowel sounds normal. No peritoneal signs Musculoskeletal: No pedal edema, no cyanosis. b/l LE hyperpigmentation Skin: No rash or abscess Hem/Lymphatic: No palpable cervical or supraclavicular nodes. No lymphangitis Psych: no agitation Neurological: intubated, on vent, exam limited - Constitutional Vitals: Vital Signs Temp Pulse Resp BP Pulse Ox 98.2 F 74 18 143/54 99 08/28/18 04:00 08/28/18 07:38 08/28/18 07:38 08/28/18 07:29 08/28/18 07:29 Temperature -Last 24 Hours Temperature 98.2 F Temperature 98.2 F Temperature 98.6 F Temperature 99.0 F Temperature 98.6 F Temperature 98.9 F - Labs CBC & Chem 7: 08/28/18 04:49 08/28/18 04:49 Labs: Abnormal lab results 08/27/18 08/27/18 08/27/18 Range/Units 11:51 11:58 11:58 RBC 2.66 L (3.65-5.03) M/mm3 Hgb 8.1 L (11.8-15.2) gm/dl Hct 24.7 L (35.5-45.6) % MCV (84-94) fl RDW 16.7 H (13.2-15.2) % Plt Count (140-440) K/mm3 POC ABG pO2 (80-105) BUN (9-20) mg/dL Creatinine (0.8-1.5) mg/dL POC Glucose 107 H (70-105) Calcium (8.4-10.2) mg/dL NT-Pro-B Natriuret Pep > 71194 H (0-900) pg/mL Total Protein (6.3-8.2) g/dL Albumin (3.9-5) g/dL 08/27/18 08/28/18 08/28/18 Range/Units 11:58 04:38 04:49 RBC (3.65-5.03) M/mm3 Hgb (11.8-15.2) gm/dl Hct (35.5-45.6) % MCV (84-94) fl RDW (13.2-15.2) % Plt Count (140-440) K/mm3 POC ABG pO2 112 H (80-105) BUN 71 H (9-20) mg/dL Creatinine 2.9 H (0.8-1.5) mg/dL POC Glucose (70-105) Calcium 7.6 L (8.4-10.2) mg/dL NT-Pro-B Natriuret Pep > 56120 H (0-900) pg/mL Total Protein 6.1 L (6.3-8.2) g/dL Albumin 2.4 L (3.9-5) g/dL 08/28/18 08/28/18 Range/Units 04:49 04:49 RBC 2.65 L (3.65-5.03) M/mm3 Hgb 8.3 L (11.8-15.2) gm/dl Hct 25.3 L (35.5-45.6) % MCV 96 H (84-94) fl RDW 17.3 H (13.2-15.2) % Plt Count 83 L (140-440) K/mm3 POC ABG pO2 (80-105) BUN 69 H (9-20) mg/dL Creatinine 2.4 H (0.8-1.5) mg/dL POC Glucose (70-105) Calcium 7.7 L (8.4-10.2) mg/dL NT-Pro-B Natriuret Pep (0-900) pg/mL Total Protein 5.4 L (6.3-8.2) g/dL Albumin 2.2 L (3.9-5) g/dL - Imaging and cardiology Chest x-ray: report reviewed, image reviewed (bibasilar opacities)
--- NOTE | 2018-08-28 12:50 | Progress Note ---
Assessment and Plan Cont supportive management. Will follow on as needed basis. The patient has been seen in conjunction with Dr. Thapa who agrees with the asse ssment and plan of care. - Patient Problems (1) Cardiac arrest Current Visit: Yes Status: Acute (2) Acute HFrEF (heart failure with reduced ejection fraction) Current Visit: Yes Status: Acute (3) Cardiomyopathy Current Visit: Yes Status: Acute (4) Acute on chronic respiratory failure Current Visit: Yes Status: Acute (5) Acute renal failure Current Visit: Yes Status: Acute (6) Hyperkalemia Current Visit: Yes Status: Acute (7) Lactic acidosis Current Visit: Yes Status: Acute (8) Pneumonia Current Visit: Yes Status: Acute (9) Sepsis Current Visit: Yes Status: Suspected (10) Anemia Current Visit: Yes Status: Acute (11) GI bleed Current Visit: Yes Status: Suspected (12) Elevated liver enzymes Current Visit: Yes Status: Acute (13) Elevated troponin Current Visit: Yes Status: Acute (14) Altered mental status Current Visit: Yes Status: Acute Subjective Date of service: 08/28/18 Principal diagnosis: s/p cardiac arrest; severe sepsis; acute hypoxemic- hypercapnic resp failure Interval history: pt remains intubated, sedated. family at bedside. Objective Last Vital Signs Temp 98.2 F 08/28/18 04:00 Pulse 74 08/28/18 07:38 Resp 18 08/28/18 07:38 BP 143/54 08/28/18 07:29 Pulse Ox 99 08/28/18 07:29 - Physical Examination General: Other (intubated. Awake and agitated. ) HEENT: Positive: PERRL Neck: Positive: neck supple Cardiac: Positive: Reg Rate and Rhythm, S1/S2 Lungs: Positive: Decreased Breath Sounds Neuro: Positive: Grossly Intact, Other (intubated, but awake and alert) Abdomen: Positive: Soft, Other (Obese) /Rectal: Other ([place] in place. ) Skin: Positive: Clear. Negative: Rash Musculoskeletal: Decreased Range of Motion Extremities: Present: Other (Generalized edema). Absent: edema - Labs and Meds Cardiac Enzymes 08/27/18 08/28/18 Range/Units 11:58 04:49 AST 33 27 (5-40) units/L CBC 08/28/18 Range/Units 04:49 WBC 8.3 (4.5-11.0) K/mm3 RBC 2.65 L (3.65-5.03) M/mm3 Hgb 8.3 L (11.8-15.2) gm/dl Hct 25.3 L (35.5-45.6) % Plt Count 83 L (140-440) K/mm3 Comprehensive Metabolic Panel 08/27/18 08/28/18 Range/Units 11:58 04:49 Sodium 138 139 (137-145) mmol/L Potassium 3.7 D 4.1 (3.6-5.0) mmol/L Chloride 98.5 101.2 (98-107) mmol/L Carbon Dioxide 26 25 (22-30) mmol/L BUN 71 H 69 H (9-20) mg/dL Creatinine 2.9 H 2.4 H (0.8-1.5) mg/dL Glucose 93 76 (75-100) mg/dL Calcium 7.6 L 7.7 L (8.4-10.2) mg/dL AST 33 27 (5-40) units/L ALT 25 12 (7-56) units/L Alkaline Phosphatase 98 87 (35-129) units/L Total Protein 6.1 L 5.4 L (6.3-8.2) g/dL Albumin 2.4 L 2.2 L (3.9-5) g/dL - Imaging and Cardiology EKG: image reviewed Echo: report reviewed ( EF 40-45%, LV mod dilated, pseudonormalization, RV severely dilated, RA mod dilated, mod TR, RVSP 47mmHg. ) - EKG Sinus rhythms and dysrhythmias: sinus rhythm AV and intraventricular conduction: right bundle branch block - Allied health notes Allied health notes reviewed: nursing
[2018-08-28] MEDS: SOLU-Medrol IV SCH (13:10)
[2018-08-28] MEDS: PEPCID IV SCH (13:10)
[2018-08-28] MEDS: HEPARIN SUB-Q SCH ×2 (13:11→21:50)
[2018-08-28] MEDS: DULCOLAX PR SCH (13:15)
--- NOTE | 2018-08-28 13:15 | Event Note ---
Date: 08/28/18 clinically better moving all extremities now - discontinue MRI - repeat CT head in a few days .... re-evaluate in am & prn
[2018-08-28] MEDS: MIRALAX 3350 PO SCH (13:16)
[2018-08-28] MEDS: ceFAZolin 2 GM in NACL 0.9% 100 ML IV SCH ×2 (13:28→21:55)
--- NOTE | 2018-08-28 15:53 | Event Note ---
Date: 08/28/18 Chart reviewed, Pt not seen. Pt with acute on CKD. Vascular surgery consulted to eval for temporary HD access. Pt brought down to the lab aid for the procedure. 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 The superior vena cava appears to drain into the coronary sinus. The inferior vena cava appears to be of standard anatomy. A femoral permacath was placed. Pt will need a CT scan of the chest to further clarify his anatomy. Chart review suggest will will be going for a CT scan of the head in the next few days. Recommend CT of the chest being performed at the same time.
--- NOTE | 2018-08-28 17:02 | Progress Note ---
Assessment and Plan Assessment and plan: 73 -year-old man with a history of COPD, chronic kidney disease, liver disease, diabetes, GITA, colon cancer, comes to the emergency room with complaints of shortness of 4. Per the he was in the hospital in June for COPD. Probably discharge he had decreased oral intake, last time became more short of breath, hallucinating and then became combative, pulling off his CPAP. She called EMS, they had difficulty intubating the patient in the field, he was bagged, per EMS, when he arrived at the entrance of the hospital he lost his pulse. Patient was intubated in the emergency room, given 2 rounds of epi with ROSC. Status post hyperkalemic cocktail Contaminate Blood culture Acute respiratory failure s/p Cardiac arrest-POA Bowel illeus- Resolving Severe Sepsis- Resolved COPD exacerbation-POA Pneumonia, HCAP-PRESUMED GNR Acute Metabolic Encephalopathy LEFT TMJ JOINT DISLOCATION-POA Acute systolic Heart failure-POA Elevated D.DIMER Hyperkalemia Type 2 PA Anemia ?acute blood loss Thrombocytopenia Myoclonic seziures Hypoxic ischemic Encephalopathy CARDIOMYOPATHY KHRIS secondary to vasomotor nephropathy with possible Probably acute on chronic kidney disease 3 Abnormal cardiac enzymes Liver disease GITA colon cancer BY HX Morbidly obese Plan Continue supportive care- Remains intubated, off versed, still on fentanyl drip Continue weaning trails Continue on abx Surgery input noted Dialysis started, Femoral vas cath placed 08/26/18- to be changed to permacath No evidence of obstruction possible Ileus which may be resolving as patient had BM and NGT output is clearing, Tube feeds still on hold Continue to monitor plt, considering dvt prophy Right IJ permacath started for dialysis EEG ordered, Neurology consulted and EEG Started Doppler lower ext pending with no DVT noted ID input noted. Patient with prior hx of MRSA cellulites check blood cultures, [facility] with [facility] staff, Aspiration precautions Cardiology and Critical care input noted Abx per ID recs Plan discussed with Family The high probability of a clinically significant, sudden or life-threatening deterioration of the [respiratory, cardiovascular, renal , gastrointestinal, neurology] system(s) required my full and direct attention, intervention and personal management. The aggregate critical care time was [35 ] minutes without overlap. [x] Data Review and interpretation [x] Patient assessment and monitoring of vital signs [x] Documentation [x] Medication orders and management History Interval history: Patient seen and examined, remains on full ventilatory support. NGT output improved, failed SBT yesterday and was agitated. Hospitalist Physical - Physical exam Narrative exam: General Apperance: The patient lying in bed, on full mechanical ventilatory support. awakens HEENT: Normocephalic, atraumatic. Pupils equally round and reactive to light, unable to do EOM, no scleratic or JVD or thyromegaly or nodule. , no carotid bruit, mucous membranes moist, ET tube in place, swelling in the TJ joint Heart: S1-S2, regular is rhythm Lungs: Clear to auscultation bilaterally, breathing comfortable Abdomen: Positive bowel sounds, soft, nondistended, no organomegaly Extremities: No edema cyanosis clubbing Skin: no rash, nodule, warm and dry Neuro: awakens, follows command - Constitutional Vitals: Temp Pulse Resp BP Pulse Ox 96.4 F L 64 10 L 133/57 99 08/28/18 14:30 08/28/18 17:00 08/28/18 14:30 08/28/18 17:00 08/28/18 14:30 General appearance: Present: other (intubated, chronically ill appearing) Results - Labs CBC & Chem 7: 08/28/18 04:49 08/28/18 04:49 Labs: Laboratory Last Values WBC 8.3 K/mm3 (4.5-11.0) 08/28/18 04:49 RBC 2.65 M/mm3 (3.65-5.03) L 08/28/18 04:49 Hgb 8.3 gm/dl (11.8-15.2) L 08/28/18 04:49 Hct 25.3 % (35.5-45.6) L 08/28/18 04:49 MCV 96 fl (84-94) H 08/28/18 04:49 MCH 31 pg (28-32) 08/28/18 04:49 MCHC 33 % (32-34) 08/28/18 04:49 RDW 17.3 % (13.2-15.2) H 08/28/18 04:49 Plt Count 83 K/mm3 (140-440) L 08/28/18 04:49 Lymph % (Auto) Research Director 08/25/18 16:43 [place] % (Auto) Research Director 08/25/18 16:43 Eos % (Auto) Research Director 08/25/18 16:43 Baso % (Auto) Research Director 08/25/18 16:43 Lymph # Research Director 08/25/18 16:43 [place] # Research Director 08/25/18 16:43 Eos # Research Director 08/25/18 16:43 Baso # Research Director 08/25/18 16:43 Add Manual Diff Complete 08/25/18 16:43 Total Counted 100 08/25/18 16:43 Seg Neutrophils % Research Director 08/25/18 16:43 Seg Neuts % (Manual) 94.0 % (40.0-70.0) H 08/25/18 16:43 2.0 % 08/25/18 16:43 2.0 % (13.4-35.0) L 08/25/18 16:43 Reactive Lymphs % (Man) 0 % 08/25/18 16:43 2.0 % (0.0-7.3) 08/25/18 16:43 0 % (0.0-4.3) 08/25/18 16:43 0 % (0.0-1.8) 08/25/18 16:43 0 % 08/25/18 16:43 0 % 08/25/18 16:43 0 % 08/25/18 16:43 0 % 08/25/18 16:43 Nucleated RBC % Not Reportable 08/25/18 16:43 Seg Neutrophils # Research Director 08/25/18 16:43 Seg Neutrophils # Man 13.8 K/mm3 (1.8-7.7) H 08/25/18 16:43 Band Neutrophils # 0.3 K/mm3 08/25/18 16:43 0.3 K/mm3 (1.2-5.4) L 08/25/18 16:43 Abs React Lymphs (Man) 0.0 K/mm3 08/25/18 16:43 0.3 K/mm3 (0.0-0.8) 08/25/18 16:43 0.0 K/mm3 (0.0-0.4) 08/25/18 16:43 0.0 K/mm3 (0.0-0.1) 08/25/18 16:43 0.0 K/mm3 08/25/18 16:43 0.0 K/mm3 08/25/18 16:43 0.0 K/mm3 08/25/18 16:43 Blast Cells # 0.0 K/mm3 08/25/18 16:43 WBC Morphology Not Reportable 08/25/18 16:43 Hypersegmented Neuts Not Reportable 08/25/18 16:43 Hyposegmented Neuts Not Reportable 08/25/18 16:43 Hypogranular Neuts Not Reportable 08/25/18 16:43 Not Reportable 08/25/18 16:43 Not Reportable 08/25/18 16:43 Not Reportable 08/25/18 16:43 Not Reportable 08/25/18 16:43 Not Reportable 08/25/18 16:43 Not Reportable 08/25/18 16:43 Consistent w auto 08/25/18 16:43 Not Reportable 08/25/18 16:43 Plt Clumps, EDTA Not Reportable 08/25/18 16:43 Not Reportable 08/25/18 16:43 Not Reportable 08/25/18 16:43 Not Reportable 08/25/18 16:43 Plt Morphology Comment Not Reportable 08/25/18 16:43 RBC Morphology Not Reportable 08/25/18 16:43 Dimorphic RBCs Not Reportable 08/25/18 16:43 Not Reportable 08/25/18 16:43 1+ 08/25/18 16:43 Few 08/25/18 16:43 1+ 08/25/18 16:43 Not Reportable 08/25/18 16:43 Not Reportable 08/25/18 16:43 Not Reportable 08/25/18 16:43 Not Reportable 08/25/18 16:43 Not Reportable 08/25/18 16:43 Not Reportable 08/25/18 16:43 Not Reportable 08/25/18 16:43 Few 08/25/18 16:43 Not Reportable 08/25/18 16:43 Not Reportable 08/25/18 16:43 Not Reportable 08/25/18 16:43 Not Reportable 08/25/18 16:43 Not Reportable 08/25/18 16:43 Not Reportable 08/25/18 16:43 Not Reportable 08/25/18 16:43 Acanthocytes (Spur) Not Reportable 08/25/18 16:43 Rouleaux Not Reportable 08/25/18 16:43 Not Reportable 08/25/18 16:43 Not Reportable 08/25/18 16:43 Not Reportable 08/25/18 16:43 Not Reportable 08/25/18 16:43 Hem Pathologist Commnt No 08/25/18 16:43 PT 15.6 Sec. (12.2-14.9) H 08/25/18 16:43 INR 1.27 (0.87-1.13) H 08/25/18 16:43 APTT 30.8 Sec. (24.2-36.6) 08/21/18 04:42 1978.25 ng/mlDDU (0-234) H 08/24/18 13:41 POC ABG pH 7.278 (7.35-7.45) L 08/28/18 14:24 POC ABG pCO2 57.9 (35-45) H 08/28/18 14:24 POC ABG pO2 79 (80-105) L 08/28/18 14:24 POC ABG HCO3 27.1 (22-26 mml/L) 08/28/18 14:24 POC ABG Total CO2 29 (23-27mmol/L) 08/28/18 14:24 POC ABG O2 Sat 93 08/28/18 14:24 POC ABG Base Excess 0 ((-2) - (+3)mmol/L) 08/28/18 14:24 30 % 08/28/18 14:24 Sodium 139 mmol/L (137-145) 08/28/18 04:49 Potassium 4.1 mmol/L (3.6-5.0) 08/28/18 04:49 Chloride 101.2 mmol/L (98-107) 08/28/18 04:49 Carbon Dioxide 25 mmol/L (22-30) 08/28/18 04:49 17 mmol/L 08/28/18 04:49 BUN 69 mg/dL (9-20) H 08/28/18 04:49 2.4 mg/dL (0.8-1.5) H 08/28/18 04:49 Estimated GFR 27 ml/min 08/28/18 04:49 29 % 08/28/18 04:49 Glucose 76 mg/dL (75-100) 08/28/18 04:49 POC Glucose 97 (70-105) 08/28/18 11:47 Lactic Acid 1.30 mmol/L (0.7-2.0) 08/21/18 20:50 Calcium 7.7 mg/dL (8.4-10.2) L 08/28/18 04:49 Magnesium 2.30 mg/dL (1.7-2.3) 08/23/18 14:24 0.60 mg/dL (0.1-1.2) 08/28/18 04:49 AST 27 units/L (5-40) 08/28/18 04:49 ALT 12 units/L (7-56) 08/28/18 04:49 87 units/L (35-129) 08/28/18 04:49 222 units/L (55-170) H 08/21/18 10:45 CK-MB (CK-2) 9.2 ng/mL (0.0-4.0) H 08/21/18 10:45 CK-MB (CK-2) Rel Index 4.1 (0-4) H 08/21/18 10:45 0.044 ng/mL (0.00-0.029) H D 08/21/18 10:45 9.00 mg/dL (0.00-1.30) H 08/24/18 13:41 NT-Pro-B Natriuret Pep > 33944 pg/mL (0-900) H 08/28/18 04:49 5.4 g/dL (6.3-8.2) L 08/28/18 04:49 2.2 g/dL (3.9-5) L 08/28/18 04:49 0.7 % 08/28/18 04:49 Triglycerides 87 mg/dL (2-149) 08/21/18 04:42 Cholesterol 93 mg/dL (50-199) 08/21/18 04:42 44 mg/dL (50-130) L 08/21/18 04:42 41 mg/dL (40-59) 08/21/18 04:42 2.26 % 08/21/18 04:42 Yellow (Yellow) 08/21/18 15:03 Slightly-cloudy (Clear) 08/21/18 15:03 5.0 (5.0-7.0) 08/21/18 15:03 Ur Specific [place] 1.015 (1.003-1.030) 08/21/18 15:03 30 mg/dl mg/dL (Negative) 08/21/18 15:03 Neg mg/dL (Negative) 08/21/18 15:03 Neg mg/dL (Negative) 08/21/18 15:03 Mod (Negative) 08/21/18 15:03 Neg (Negative) 08/21/18 15:03 Neg (Negative) 08/21/18 15:03 < 2.0 mg/dL (<2.0) 08/21/18 15:03 Ur Leukocyte Esterase Tr (Negative) 08/21/18 15:03 13.0 /HPF (0.0-6.0) H 08/21/18 15:03 15.0 /HPF (0.0-6.0) 08/21/18 15:03 U Epithel Cells (Auto) 1.0 /HPF (0-13.0) 08/21/18 15:03 1+ /HPF (Negative) 08/21/18 15:03 Few /HPF 08/21/18 15:03 Random Vancomycin 10.5 ug/mL (0-40.0) 08/26/18 05:53 Hepatitis A IgM Ab Non-reactive (NonReactive) 08/27/18 23:25 Hep Bs Antigen Non-reactive (Negative) 08/27/18 23:25 Hep B Core IgM Ab Non-reactive (NonReactive) 08/27/18 23:25 Non-reactive (NonReactive) 08/27/18 23:25 Active Medications - Current Medications Current Medications: Generic Name Dose Route Start Last Admin Trade Name Freq PRN Reason Stop Dose Admin Acetaminophen 650 mg 08/21/18 06:31 Tylenol PO Q4H PRN Pain MILD(1-3)/Fever >100.5/COOK Acetaminophen 650 mg 08/21/18 06:31 Tylenol [place] Q4H PRN Pain MILD(1-3)/Fever >100.5/COOK Albuterol/Ipratropium 1 ampul 08/24/18 20:00 08/28/18 07:28 Duoneb *Not For Prn Use* IH 1 ampul BIDRT LUIS Administration Lipase/Protease/Amylase 1 each 08/26/18 12:[address] 10,500 Unit FEEDTUBE PRN PRN For Clogged Feeding Tube Arformoterol Tartrate 15 mcg 08/24/18 20:00 08/28/18 07:28 Brovansally Willsu IH 15 mcg Q12HRT LUIS Administration Bisacodyl 10 mg 08/25/18 16:00 08/28/18 13:15 Dulcolax OK Not Given QDAY LUIS Budesonide 0.5 mg 08/24/18 20:00 08/28/18 07:28 Pulmicort IH 0.5 mg Q12HRT LUIS Administration Dextrose 50 ml 08/21/18 06:48 D50w (25gm) Syringe IV PRN PRN Hypoglycemia Famotidine 20 mg 08/25/18 10:00 08/28/18 13:10 Pepcid IV 20 mg DAILY LUIS Administration Fentanyl 50 mcg 08/26/18 16:26 Sublimaze IV Q10MIN PRN ANALGESIA Heparin Sodium (Porcine) 5,000 unit 08/22/18 10:00 08/28/18 13:11 Heparin SUB-Q 5,000 unit Q12HR LUIS Administration Hydralazine HCl 10 mg 08/26/18 15:08 08/26/18 15:19 Apresoline IV 10 mg Q6H PRN Administration Hypertension Hydrophilic Ointment 1 applic 08/21/18 11:34 Vaseline Lip Therapy TP Q2HR PRN Dry Lips Midazolam HCl 100 mg/ Sodium 100 mls @ 2 mls/hr 08/21/18 15:00 08/24/18 18:21 Chloride IV 0 mg/hr TITR LUIS 0 mls/hr Titration Protocol 2 MG/HR Levetiracetam 750 mg/ Dextrose 107.5 mls @ 400 mls/hr 08/24/18 22:00 08/27/18 22:27 IV 400 mls/hr Q12HR LUIS Administration Propofol 1,000 mg in 100 mls @ 4.389 mls/hr 08/26/18 18:00 08/28/18 04:59 Diprivan 10 Mg/Ml IV 10 mcg/kg/min TITR LUIS 8.778 mls/hr Administration Protocol 5 MCG/KG/MIN Fentanyl Citrate 2,000 mcg in 100 mls @ 7.053 mls/hr 08/27/18 12:00 08/28/18 13:10 Fentanyl Drip Premix IV 2 mcg/kg/hr TITR LUIS 14.107 mls/hr Administration Protocol 1 MCG/KG/HR Cefazolin Sodium 2 gm/ Sodium 100 mls @ 200 mls/hr 08/28/18 12:00 08/28/18 13:28 Chloride IV 200 mls/hr Q12HR LUIS Administration Insulin Human Lispro 0 unit 08/21/18 12:00 08/28/18 05:06 Humalog SUB-Q Not Given Q6HR [facility] Protocol Methylprednisolone Sodium Succinate 20 mg 08/26/18 10:00 08/28/18 13:10 Solu-Medrol IV 08/29/18 10:01 20 mg Q24HR LUIS Administration Metoclopramide HCl 10 mg 08/25/18 18:00 08/27/18 05:27 Reglan IV 10 mg Q12H LUIS Administration Midazolam HCl 2 mg 08/21/18 14:32 08/21/18 14:52 Versed IV 2 mg Q10MIN PRN Administration Sedation Morphine Sulfate 2 mg 08/26/18 14:24 Morphine IV Q6H PRN Pain, Moderate (4-6) Multi-Ingred Cream/Lotion/Oil/Oint 1 applic 08/21/18 11:34 Artificial Tears Ophth Oint OU Q4HR PRN Dry Eye(s) Ondansetron HCl 4 mg 08/21/18 06:31 Zofran IV Q8H PRN Nausea And Vomiting Polyethylene Glycol 17 gm 08/26/18 10:00 08/28/18 13:16 Miralax 3350 PO 17 gm QDAY LUIS Administration Simple Syrup 15 ml 08/26/18 12:07 Simple Syrup FEEDTUBE PRN PRN Hypoglycemia Simple Syrup 30 ml 08/26/18 12:07 Simple Syrup FEEDTUBE PRN PRN Hypoglycemia Sodium Bicarbonate 325 mg 08/26/18 12:07 Sodium Bicarbonate FEEDTUBE PRN PRN For Clogged Feeding Tube Sodium Chloride 10 ml 08/21/18 10:00 08/27/18 22:28 Sodium Chloride Flush Syringe 10 Ml IV 10 ml BID LUIS Administration Sodium Chloride 10 ml 08/21/18 06:31 Sodium Chloride Flush Syringe 10 Ml IV PRN PRN LINE FLUSH Nutrition/Malnutrition Assess - Dietary Evaluation Nutrition/Malnutrition Findings: Nutrition Notes Start: 08/21/18 16:58 Freq: Status: Active Protocol: Document 08/28/18 15:03 RM (Rec: 08/28/18 15:11 RM [id number]) Nutrition Notes Initial or Follow up Reassessment Current Diagnosis Acute Kidney Injury,CKD(stage I-IV),COPD,Diabetes,Sepsis Other Pertinent Diagnosis Hx colon CA, Pneu Current Diet Nepro at 45 ml/hr Labs/Tests K 4.1 Pertinent Medications Reviewed Height 5 ft 6 in Weight 146.3 kg [place] Body Weight (kg) 64.54 BMI 52.0 Subjective/Other Information Observed Nepro infusing at 10 ml/hr. Per nurse Dr. Holguin ordered TF to be reduced to trickle feed d/t pt having stool buildup. Nurse also stated that pt is not having many BMs. Burn Absent Trauma Absent #1 Nutrition Diagnosis Inadequate oral intake Diagnosis Progress(for reassessment Continues documentation) Is patient on ventilator? Yes Is Patient Ambulatory and/or Out of Bed No REE-([place]-confined to bed) 2592.060 Kcal/Kg value to use for calculation 14 Approximate Energy Requirements Using 2048 kcal/Kg Calculation Used for Recommendations Kcal/kg Additional Notes Protein needs are 161g (2.5g/ kg IBW) Fluid Needs: 1 ml/kcal Nutrition Intervention Nutrition Support: Nepro at 10 ml/hr 150ml q4h flush Kcal 432 Protein (gm) 18 Fluid (mL) 195 Goal #1 TF tolerance Goal #2 Trickle TF to meet needs as best possible Anticipated Discharge Needs: Unable to determine at this time Follow-Up By: 08/30/18 Additional Comments Follow for TF tolerance, BMs
[2018-08-28] MEDS: KEPPRA 750 MG in D5W 100 ML IV SCH (21:38)
[2018-08-28] MEDS: SODIUM CHLORIDE FLUSH SYRINGE 10 ML IV SCH (21:46)
[2018-08-28] MEDS: APRESOLINE IV PRN (21:49)
[2018-08-29] MEDS: HumaLOG SUB-Q SCH ×4 (00:57→17:29)
[2018-08-29] MEDS: fentaNYL DRIP Premix 2,000 MCG/100 ML BAG IV SCH (01:00)
[2018-08-29 06:14] LABS: Hematocrit 29.5 % (35.5-45.6); Hemoglobin 9.4 gm/dl (11.8-15.2); Mean Corpuscular HGB Conc 32 % (32-34); Mean Corpuscular Hemoglobin 31 pg (28-32); Mean Corpuscular Volume 96 fl (84-94); Platelet Count 127 K/mm3 (140-440); Red Blood Count 3.09 M/mm3 (3.65-5.03); Red Cell Distribution Width 17.9 % (13.2-15.2)
[2018-08-29] MEDS: REGLAN IV SCH ×3 (06:14→17:28)
[2018-08-29 06:40] LABS: Calcium 8.6 mg/dL (8.4-10.2)
[2018-08-29] MEDS: SODIUM CHLORIDE FLUSH SYRINGE 10 ML IV SCH ×4 (08:01→22:04)
[2018-08-29] MEDS: KEPPRA 750 MG in D5W 100 ML IV SCH ×3 (08:02→22:04)
[2018-08-29] MEDS: SOLU-Medrol IV SCH ×2 (08:03→10:38)
[2018-08-29] MEDS: PULMICORT IH SCH ×2 (08:52→20:10)
[2018-08-29] MEDS: BROVANA NEBU IH SCH ×2 (08:52→20:10)
[2018-08-29] MEDS: DUONEB *Not for PRN Use IH SCH ×2 (08:53→20:10)
--- NOTE | 2018-08-29 08:53 | Progress Note ---
Assessment and Plan Impression: * Nonoliguric KHRIS on CKD * s/p Cardiopulmonary arrest with ROSC * Acute on chronic hypoxemic respiratory failure * Lactic acidosis * Acute metabolic/respiratory acidosis * Sepsis probably secondary to aspiration PNA * COPD * Acute metabolic-toxic encephalopathy * NSTEMI * Type 2 DM Plan: * Hold HD today. Reassess daily for need for HD * Continue to monitor SCr and UOP for evidence of recovery * Vent management per pulmonary/CCM * Antibiotics per primary team * Strict i/os * Avoid nephrotoxins * AM labs * Plan of care discussed with daughter who is at bedside Subjective Date of service: 08/29/18 Principal diagnosis: s/p cardiac arrest; severe sepsis; acute hypoxemic-h ypercapnic resp failure Interval history: No acute events overnight. Objective - Vital Signs Vital signs: Vital Signs - 12hr 08/28/18 08/28/18 08/28/18 21:01 21:15 21:30 Temperature Pulse Rate 63 60 55 L Pulse Rate [ From Monitor] Respiratory 13 12 13 Rate Blood Pressure 161/53 176/64 173/57 O2 Sat by Pulse 97 96 96 Oximetry 08/28/18 08/28/18 08/28/18 21:45 21:49 22:00 Temperature Pulse Rate 58 L 61 62 Pulse Rate [ From Monitor] Respiratory 12 11 L Rate Blood Pressure 173/61 173/61 162/53 O2 Sat by Pulse 96 96 Oximetry 08/28/18 08/28/18 08/28/18 22:04 22:15 22:30 Temperature Pulse Rate 59 L 61 61 Pulse Rate [ From Monitor] Respiratory 12 12 12 Rate Blood Pressure 162/53 151/47 154/49 O2 Sat by Pulse 96 96 96 Oximetry 08/28/18 08/28/18 08/28/18 22:45 23:01 23:15 Temperature Pulse Rate 66 90 85 Pulse Rate [ From Monitor] Respiratory 12 15 12 Rate Blood Pressure 159/54 128/65 128/65 O2 Sat by Pulse 98 96 95 Oximetry 08/28/18 08/28/18 08/28/18 23:30 23:45 23:48 Temperature 97.9 F Pulse Rate 78 75 Pulse Rate [ From Monitor] Respiratory 12 12 Rate Blood Pressure 113/65 128/65 O2 Sat by Pulse 95 96 Oximetry 08/29/18 08/29/18 08/29/18 00:00 00:15 00:22 Temperature 98.7 F Pulse Rate 71 74 66 Pulse Rate [ 89 From Monitor] Respiratory 12 12 Rate Blood Pressure 145/64 171/71 145/58 O2 Sat by Pulse 100 97 100 Oximetry 08/29/18 08/29/18 08/29/18 00:30 00:45 01:00 Temperature Pulse Rate 72 66 67 Pulse Rate [ From Monitor] Respiratory 15 13 12 Rate Blood Pressure 178/73 144/54 144/54 O2 Sat by Pulse 99 93 Oximetry 08/29/18 08/29/18 08/29/18 01:15 01:31 01:45 Temperature Pulse Rate 64 63 63 Pulse Rate [ From Monitor] Respiratory 11 L 12 12 Rate Blood Pressure 127/52 94/50 96/42 O2 Sat by Pulse 95 94 95 Oximetry 08/29/18 08/29/18 08/29/18 02:00 02:15 02:30 Temperature Pulse Rate 61 61 62 Pulse Rate [ From Monitor] Respiratory 13 12 12 Rate Blood Pressure 96/42 90/41 99/43 O2 Sat by Pulse 93 94 95 Oximetry 08/29/18 08/29/18 08/29/18 02:45 03:01 03:15 Temperature Pulse Rate 61 63 62 Pulse Rate [ From Monitor] Respiratory 11 L 12 12 Rate Blood Pressure 87/39 90/43 96/42 O2 Sat by Pulse 95 95 95 Oximetry 08/29/18 08/29/18 08/29/18 03:30 03:35 03:45 Temperature 98.9 F Pulse Rate 61 63 Pulse Rate [ From Monitor] Respiratory 12 13 Rate Blood Pressure 88/43 91/43 O2 Sat by Pulse 95 96 Oximetry 08/29/18 08/29/18 08/29/18 04:00 04:01 04:15 Temperature Pulse Rate 65 64 69 Pulse Rate [ 85 From Monitor] Respiratory 13 12 Rate Blood Pressure 129/58 132/64 O2 Sat by Pulse 100 98 97 Oximetry 08/29/18 08/29/18 08/29/18 04:31 04:32 04:45 Temperature Pulse Rate 84 82 82 Pulse Rate [ From Monitor] Respiratory 11 L 12 Rate Blood Pressure 110/68 110/68 129/62 O2 Sat by Pulse 95 96 97 Oximetry 08/29/18 08/29/18 08/29/18 05:01 05:15 05:31 Temperature Pulse Rate 81 78 82 Pulse Rate [ From Monitor] Respiratory 11 L 11 L 15 Rate Blood Pressure 111/62 116/62 140/65 O2 Sat by Pulse 98 96 96 Oximetry 08/29/18 08/29/18 08/29/18 05:45 06:00 06:15 Temperature Pulse Rate 73 76 86 Pulse Rate [ From Monitor] Respiratory 11 L 12 11 L Rate Blood Pressure 134/68 133/57 110/62 O2 Sat by Pulse 95 97 97 Oximetry 08/29/18 06:30 Temperature Pulse Rate 73 Pulse Rate [ From Monitor] Respiratory 12 Rate Blood Pressure 112/55 O2 Sat by Pulse 99 Oximetry - General Appearance General appearance: well-developed, well-nourished, intubated EENT: ATNC, other (ETT in place) Respiratory: Present: Other (Coarse BS) Cardiology: regular, S1S2 Gastrointestinal: obese Integumentary: warm and dry Neurologic: other (intubated, sedated) - Lab 08/29/18 05:35 08/29/18 05:35 Most recent lab results Calcium 8.6 mg/dL (8.4-10.2) 08/29/18 05:35 Magnesium 2.30 mg/dL (1.7-2.3) 08/23/18 14:24 Medications & Allergies - Medications Allergies/Adverse Reactions: Allergies Penicillins Allergy (Verified 08/21/18 04:49) Unknown -cillins Allergy (Uncoded 08/21/18 04:49) Unknown Home Medications: Home Medications Medication Instructions Recorded Confirmed Last Taken Type AtorvaSTATin [Lipitor] 10 mg PO QHS 08/21/18 08/21/18 Unknown History Ferrous Sulfate [Feosol] 325 mg PO QDAY 08/21/18 08/21/18 Unknown History Melatonin [Melatonin 10MG CAP] 10 mg PO DAILY 08/21/18 08/21/18 Unknown History NIFEdipine [Nifedipine ER] 60 mg PO BID 08/21/18 08/21/18 Unknown History Sennosides Tab [Senokot] 1 tab PO HS 08/21/18 08/21/18 Unknown History Tamsulosin [Flomax] 2 cap PO HS 08/21/18 08/21/18 Unknown History Torsemide [Demadex] 20 mg PO DAILY 08/21/18 08/21/18 Unknown History Venlafaxine HCl [Venlafaxin ER] 75 mg PO QDAY 08/21/18 08/21/18 Unknown History buPROPion [Wellbutrin] 100 mg PO DAILY 08/21/18 08/21/18 Unknown History Active Medications: Generic Name Dose Route Start Last Admin Trade Name Freq PRN Reason Stop Dose Admin Acetaminophen 650 mg 08/21/18 06:31 Tylenol PO Q4H PRN Pain MILD(1-3)/Fever >100.5/COOK Acetaminophen 650 mg 08/21/18 06:31 Tylenol [place] Q4H PRN Pain MILD(1-3)/Fever >100.5/COOK Albuterol/Ipratropium 1 ampul 08/24/18 20:00 08/28/18 19:38 Duoneb *Not For Prn Use* IH 1 ampul BIDRT LUIS Administration Lipase/Protease/Amylase 1 each 08/26/18 12:07 Pancre[place] 10,500 Unit FEEDTUBE PRN PRN For Clogged Feeding Tube Arformoterol Tartrate 15 mcg 08/24/18 20:00 08/28/18 19:38 Brovana Nebu IH 15 mcg Q12HRT LUIS Administration Bisacodyl 10 mg 08/25/18 16:00 08/28/18 13:15 Dulcolax [place] Not Given QDAY LUIS Budesonide 0.5 mg 08/24/18 20:00 08/28/18 19:38 Pulmicort IH 0.5 mg Q12HRT LUIS Administration Dextrose 50 ml 08/21/18 06:48 D50w (25gm) Syringe IV PRN PRN Hypoglycemia Famotidine 20 mg 08/25/18 10:00 08/28/18 13:10 Pepcid IV 20 mg DAILY LUIS Administration Fentanyl 50 mcg 08/26/18 16:26 Sublimaze IV Q10MIN PRN ANALGESIA Heparin Sodium (Porcine) 5,000 unit 08/22/18 10:00 08/28/18 21:50 Heparin SUB-Q 5,000 unit Q12HR LUIS Administration Hydralazine HCl 10 mg 08/26/18 15:08 08/28/18 21:49 Apresoline IV 10 mg Q6H PRN Administration Hypertension Hydrophilic Ointment 1 applic 08/21/18 11:34 Vaseline Lip Therapy TP Q2HR PRN Dry Lips Midazolam HCl 100 mg/ Sodium 100 mls @ 2 mls/hr 08/21/18 15:00 08/24/18 18:21 Chloride IV 0 mg/hr TITR LUIS 0 mls/hr Titration Protocol 2 MG/HR Levetiracetam 750 mg/ Dextrose 107.5 mls @ 400 mls/hr 08/24/18 22:00 08/29/18 08:02 IV Not Given Q12HR [facility] Propofol 1,000 mg in 100 mls @ 4.389 mls/hr 08/26/18 18:00 08/29/18 03:52 Diprivan 10 Mg/Ml IV 0 mcg/kg/min TITR LUIS 0 mls/hr Titration Protocol 5 MCG/KG/MIN Fentanyl Citrate 2,000 mcg in 100 mls @ 7.053 mls/hr 08/27/18 12:00 08/29/18 06:14 Fentanyl Drip Premix IV 2 mcg/kg/hr TITR LUIS 14.107 mls/hr Titration Protocol 1 MCG/KG/HR Cefazolin Sodium 2 gm/ Sodium 100 mls @ 200 mls/hr 08/28/18 12:00 08/28/18 21:55 Chloride IV 200 mls/hr Q12HR [facility] Administration Insulin Human Lispro 0 unit 08/21/18 12:00 08/29/18 05:59 Humalog SUB-Q Not Given Q6HR [facility] Protocol Methylprednisolone Sodium Succinate 20 mg 08/26/18 10:00 08/29/18 08:03 Solu-Medrol IV 08/29/18 10:01 Not Given Q24HR [facility] Metoclopramide HCl 10 mg 08/25/18 18:00 08/29/18 08:01 Reglan IV Not Given Q12H [facility] Midazolam HCl 2 mg 08/21/18 14:32 08/21/18 14:52 Versed IV 2 mg Q10MIN PRN Administration Sedation Morphine Sulfate 2 mg 08/26/18 14:24 Morphine IV Q6H PRN Pain, Moderate (4-6) Multi-Ingred Cream/Lotion/Oil/Oint 1 applic 08/21/18 11:34 Artificial Tears Ophth Oint OU Q4HR PRN Dry Eye(s) Ondansetron HCl 4 mg 08/21/18 06:31 Zofran IV Q8H PRN Nausea And Vomiting Polyethylene Glycol 17 gm 08/26/18 10:00 08/28/18 13:16 Miralax 3350 PO 17 gm QDAY LUIS Administration Simple Syrup 15 ml 08/26/18 12:07 Simple Syrup FEEDTUBE PRN PRN Hypoglycemia Simple Syrup 30 ml 08/26/18 12:07 Simple Syrup FEEDTUBE PRN PRN Hypoglycemia Sodium Bicarbonate 325 mg 08/26/18 12:07 Sodium Bicarbonate FEEDTUBE PRN PRN For Clogged Feeding Tube Sodium Chloride 10 ml 08/21/18 10:00 08/29/18 08:01 Sodium Chloride Flush Syringe 10 Ml IV Not Given BID LUIS Sodium Chloride 10 ml 08/21/18 06:31 Sodium Chloride Flush Syringe 10 Ml IV PRN PRN LINE FLUSH
[2018-08-29] MEDS: APRESOLINE IV PRN ×3 (10:35→19:20)
[2018-08-29] MEDS: PEPCID IV SCH (10:38)
[2018-08-29] MEDS: ceFAZolin 2 GM in NACL 0.9% 100 ML IV SCH ×2 (10:39→17:29)
[2018-08-29] MEDS: HEPARIN SUB-Q SCH ×2 (10:49→22:04)
[2018-08-29] MEDS: MIRALAX 3350 PO SCH (10:55)
[2018-08-29] MEDS: DULCOLAX PR SCH (13:14)
--- NOTE | 2018-08-29 13:21 | Progress Note ---
Assessment and Plan Cultures: 08/21/2018 Blood culture: CoNS, Diphtheroids Sputum cultures 08/21/2018 MSSA Urine cultures 08/21/2018 no growth Repeat blood cultures negative Assessment: 73 y/o male with a history of chronic kidney disease, liver disease, COPD, diabetes, GITA, colon cancer admitted on due to 4-day history of progressive shortness of breath and right neck/face edema and tenderness associated with poor po intake, patient became unresponsive en route. EMS unable to intubate. Pt bagged with 100%. Patient found in asystole at the ED receiving s/p CRP. 1) Severe Sepsis s/p arrest in the ED: resolved, lactate now normal. Etiology ? pneumonia. 2) Pneumonia: likely HCAP (recent admission to [facility] for MRSA cellulitis?). CXR shows bilateral infiltrate with airspace disease on RLL. Sputum cultures 2018 MSSA. 3) CoNS and diphtheroids bacteremia: likely contaminant. Blood cultures 08/21/2018 CoNS 2 of 4 bottles. TTE no vegetations, EF 40-45%. Repeat cultures negative. 4) Acute renal failure on CKD: renally adjust abx dosing. On intermittent dialysis per nephrology. 5) Elevated LFTs: from sepsis ? liver disease? 6) Acute encephalopathy: ? sepsis related. Improved. 7) Penicillin allergy: ?unclear reaction. Tolerating Cefazolin. 8) NGT with feculent material: bowel obstruction ruled out per CT. Recommendations: - Continue with cefazolin IV, Day 5 of 7 MD [facility] C: [phone] O: [phone] F: [phone] Subjective Date of service: 08/29/18 Principal diagnosis: s/p cardiac arrest; severe sepsis; acute hypoxemic-h ypercapnic resp failure Interval history: Awake, alert, still on vent, but CPAP trial ongoing appears comfortable. No fever. at bedside. Objective - Exam Narrative Exam: Physical Exam: Constitutional: awake, intubated. Obese Head, Ears, Nose: Normocephalic, atraumatic. External ears, nose normal. Eyes: Conjunctivae/corneas clear. No icterus. No ptosis. Neck: Supple, no meningeal signs Oral: intubated. Cardiovascular: S1, S2 normal. Respiratory: Good air entry, clear to auscultation bilaterally GI: Soft, non-tender; bowel sounds normal. No peritoneal signs Musculoskeletal: No pedal edema, no cyanosis. b/l LE hyperpigmentation Skin: No rash or abscess Hem/Lymphatic: No palpable cervical or supraclavicular nodes. No lymphangitis Psych: calm, no agitation Neurological: awake, intubated, on vent, follows commands - Constitutional Vitals: Vital Signs Temp Pulse Resp BP Pulse Ox 97.4 F L 84 10 L 164/68 95 08/29/18 12:00 08/29/18 12:20 08/29/18 11:46 08/29/18 12:20 08/29/18 12:20 Temperature -Last 24 Hours Temperature 97.4 F Temperature 97.4 F Temperature 97.5 F Temperature 98.9 F Temperature 98.7 F Temperature 97.9 F Temperature 97.2 F Temperature 97.7 F Temperature 97.7 F Temperature 96.4 F - Labs CBC & Chem 7: 08/29/18 05:35 08/29/18 05:35 Labs: Abnormal lab results 08/28/18 08/29/18 08/29/18 Range/Units 14:24 00:11 04:39 WBC (4.5-11.0) K/mm3 RBC (3.65-5.03) M/mm3 Hgb (11.8-15.2) gm/dl Hct (35.5-45.6) % MCV (84-94) fl RDW (13.2-15.2) % Plt Count (140-440) K/mm3 POC ABG pH 7.278 L 7.312 L (7.35-7.45) POC ABG pCO2 57.9 H 57.6 H (35-45) POC ABG pO2 79 L 79 L (80-105) BUN (9-20) mg/dL Creatinine (0.8-1.5) mg/dL Glucose (75-100) mg/dL POC Glucose 171 H (70-105) 08/29/18 08/29/18 08/29/18 Range/Units 05:35 05:35 05:48 WBC 13.6 H (4.5-11.0) K/mm3 RBC 3.09 L (3.65-5.03) M/mm3 Hgb 9.4 L (11.8-15.2) gm/dl Hct 29.5 L (35.5-45.6) % MCV 96 H (84-94) fl RDW 17.9 H (13.2-15.2) % Plt Count 127 L (140-440) K/mm3 POC ABG pH (7.35-7.45) POC ABG pCO2 (35-45) POC ABG pO2 (80-105) BUN 42 H (9-20) mg/dL Creatinine 1.9 H (0.8-1.5) mg/dL Glucose 107 H (75-100) mg/dL POC Glucose 114 H (70-105) 08/29/18 Range/Units 11:37 WBC (4.5-11.0) K/mm3 RBC (3.65-5.03) M/mm3 Hgb (11.8-15.2) gm/dl Hct (35.5-45.6) % MCV (84-94) fl RDW (13.2-15.2) % Plt Count (140-440) K/mm3 POC ABG pH (7.35-7.45) POC ABG pCO2 (35-45) POC ABG pO2 (80-105) BUN (9-20) mg/dL Creatinine (0.8-1.5) mg/dL Glucose (75-100) mg/dL POC Glucose 116 H (70-105)
--- NOTE | 2018-08-29 14:05 | Progress Note ---
Assessment and Plan Assessment and plan: Patient is a 73 yo man with a history of hypertension, CKD 3, chronic respiratory failure on 2 liters of O2 due to end stage COPD, diabetes, GITA and colon cancer who presented to [facility] ED on 08/21/18 due to SOB, hallucinating and then became combative, pulling off his CPAP. He was just discharge from [place] at the end on June for COPD. Patient became unresponsive en route. EMS unable to intubate. Pt was bagged with 100%. When he arrived at the entrance of the hospital. he lost his pulse. Patient found in PEA. He was successfully intubated and resuscitated in ED with CPR/ACLS and 2 rounds of epi with ROSC. He was also in ARF with hyperkalemia. Acute on chronic hypoxic respiratory failure >96 hours ETT: continue CPAP trails, d/w Dr. Cottrell, trach and PEG has been discussed. KHRIS secondary to ATN and vasomotor nephropathy, poa acute on chronic kidney disease 3: on HD, Nephrology following, Dialysis started, Femoral vas cath placed 08/26/18- to be changed to permacath Acute COPD exacerbation-POA: continue to treat with nebs, o2, abx until completion Pneumonia, HCAP-PRESUMED GNR: Continue with cefazolin IV, Day 5 of 7 Acute Metabolic Encephalopathy Cardiac arrest-POA, successfully resuscitated, resolved Bowel illeus- Resolved, Surgery input noted Severe Sepsis- Resolved LEFT TMJ JOINT DISLOCATION-POA Acute systolic Heart failure-POA Elevated D.DIMER Hyperkalemia Type 2 MN Anemia ?acute blood loss Thrombocytopenia; CBC pending Myoclonic seziures: EEG ordered, Neurology consulted and EEG Started Hypoxic ischemic Encephalopathy CARDIOMYOPATHY Abnormal cardiac enzymes Liver disease GITA colon cancer BY HX Morbidly obese Plan Continue supportive care- Remains intubated, off versed, still on fentanyl drip Continue weaning trails Continue on abx No evidence of obstruction possible Ileus which may be resolving as patient had BM and NGT output is clearing, Tube feeds still on hold Continue to monitor plt, considering dvt prophy Right IJ permacath started for dialysis Doppler lower ext pending with no DVT noted ID input noted. Patient with prior hx of MRSA cellulites check blood cultures, [facility] with [facility] staff, Aspiration precautions Cardiology and Critical care input noted Abx per ID recs Plan discussed with Family The high probability of a clinically significant, sudden or life-threatening deterioration of the [respiratory, cardiovascular, renal , gastrointestinal, neurology] system(s) required my full and direct attention, intervention and personal management. The aggregate critical care time was [33 ] minutes without overlap. [x] Data Review and interpretation [x] Patient assessment and monitoring of vital signs [x] Documentation [x] Medication orders and management History Interval history: Patient was seen and examined. Follow-up on current diagnosis of Respiratory failure. No overnight events reported to me. Patient denies any chest pain, shortness breath, nausea/vomiting or severe headaches. Imaging, nursing note, chart, labs and old chart reviewed. Discussed with patient. Gen: critically ill appearing, intubated, sedated. HEENT: NCAT, EOMI, PERRL, OP Clear Neck: supple, no adenopathy, no thyromegaly, no JVD CVS/Heart: RRR, normal S1S2, pulses present bilaterally Chest/Lungs: diminished bs bilaterally, Symmetrical chest expansion, good air entry bilaterally GI/Abdomen: soft, NTND, good bowel sounds, no guarding or rebound /Bladder: no suprapubic tenderness, no CVA or paraspinal tenderness Extermity/Skin: dependent edema MSK: sedated Neuro: sedated Psych: sedated Hospitalist Physical - Constitutional Vitals: Temp Pulse Resp BP Pulse Ox 97.4 F L 82 10 L 153/46 94 08/29/18 12:00 08/29/18 13:30 08/29/18 13:30 08/29/18 13:30 08/29/18 13:30 General appearance: Present: other (intubated, chronically ill appearing) Results - Labs CBC & Chem 7: 08/29/18 05:35 08/29/18 05:35 Labs: Laboratory Last Values WBC 13.6 K/mm3 (4.5-11.0) H 08/29/18 05:35 RBC 3.09 M/mm3 (3.65-5.03) L 08/29/18 05:35 Hgb 9.4 gm/dl (11.8-15.2) L 08/29/18 05:35 Hct 29.5 % (35.5-45.6) L 08/29/18 05:35 MCV 96 fl (84-94) H 08/29/18 05:35 MCH 31 pg (28-32) 08/29/18 05:35 MCHC 32 % (32-34) 08/29/18 05:35 RDW 17.9 % (13.2-15.2) H 08/29/18 05:35 Plt Count 127 K/mm3 (140-440) L 08/29/18 05:35 Lymph % (Auto) Public Relations Associate 08/25/18 16:43 [place] % (Auto) Public Relations Associate 08/25/18 16:43 Eos % (Auto) Public Relations Associate 08/25/18 16:43 Baso % (Auto) Public Relations Associate 08/25/18 16:43 Lymph # Public Relations Associate 08/25/18 16:43 [place] # Public Relations Associate 08/25/18 16:43 Eos # Public Relations Associate 08/25/18 16:43 Baso # Public Relations Associate 08/25/18 16:43 Add Manual Diff Complete 08/25/18 16:43 Total Counted 100 08/25/18 16:43 Seg Neutrophils % Public Relations Associate 08/25/18 16:43 Seg Neuts % (Manual) 94.0 % (40.0-70.0) H 08/25/18 16:43 2.0 % 08/25/18 16:43 2.0 % (13.4-35.0) L 08/25/18 16:43 Reactive Lymphs % (Man) 0 % 08/25/18 16:43 2.0 % (0.0-7.3) 08/25/18 16:43 0 % (0.0-4.3) 08/25/18 16:43 0 % (0.0-1.8) 08/25/18 16:43 0 % 08/25/18 16:43 0 % 08/25/18 16:43 0 % 08/25/18 16:43 0 % 08/25/18 16:43 Nucleated RBC % Not Reportable 08/25/18 16:43 Seg Neutrophils # Public Relations Associate 08/25/18 16:43 Seg Neutrophils # Man 13.8 K/mm3 (1.8-7.7) H 08/25/18 16:43 Band Neutrophils # 0.3 K/mm3 08/25/18 16:43 0.3 K/mm3 (1.2-5.4) L 08/25/18 16:43 Abs React Lymphs (Man) 0.0 K/mm3 08/25/18 16:43 0.3 K/mm3 (0.0-0.8) 08/25/18 16:43 0.0 K/mm3 (0.0-0.4) 08/25/18 16:43 0.0 K/mm3 (0.0-0.1) 08/25/18 16:43 0.0 K/mm3 08/25/18 16:43 0.0 K/mm3 08/25/18 16:43 0.0 K/mm3 08/25/18 16:43 Blast Cells # 0.0 K/mm3 08/25/18 16:43 WBC Morphology Not Reportable 08/25/18 16:43 Hypersegmented Neuts Not Reportable 08/25/18 16:43 Hyposegmented Neuts Not Reportable 08/25/18 16:43 Hypogranular Neuts Not Reportable 08/25/18 16:43 Not Reportable 08/25/18 16:43 Not Reportable 08/25/18 16:43 Not Reportable 08/25/18 16:43 Not Reportable 08/25/18 16:43 Not Reportable 08/25/18 16:43 Not Reportable 08/25/18 16:43 Consistent w auto 08/25/18 16:43 Not Reportable 08/25/18 16:43 Plt Clumps, EDTA Not Reportable 08/25/18 16:43 Not Reportable 08/25/18 16:43 Not Reportable 08/25/18 16:43 Not Reportable 08/25/18 16:43 Plt Morphology Comment Not Reportable 08/25/18 16:43 RBC Morphology Not Reportable 08/25/18 16:43 Dimorphic RBCs Not Reportable 08/25/18 16:43 Not Reportable 08/25/18 16:43 1+ 08/25/18 16:43 Few 08/25/18 16:43 1+ 08/25/18 16:43 Not Reportable 08/25/18 16:43 Not Reportable 08/25/18 16:43 Not Reportable 08/25/18 16:43 Not Reportable 08/25/18 16:43 Not Reportable 08/25/18 16:43 Not Reportable 08/25/18 16:43 Not Reportable 08/25/18 16:43 Few 08/25/18 16:43 Not Reportable 08/25/18 16:43 Not Reportable 08/25/18 16:43 Not Reportable 08/25/18 16:43 Not Reportable 08/25/18 16:43 Not Reportable 08/25/18 16:43 Not Reportable 08/25/18 16:43 Not Reportable 08/25/18 16:43 Acanthocytes (Spur) Not Reportable 08/25/18 16:43 Rouleaux Not Reportable 08/25/18 16:43 Not Reportable 08/25/18 16:43 Not Reportable 08/25/18 16:43 Not Reportable 08/25/18 16:43 Not Reportable 08/25/18 16:43 Hem Pathologist Commnt No 08/25/18 16:43 PT 15.6 Sec. (12.2-14.9) H 08/25/18 16:43 INR 1.27 (0.87-1.13) H 08/25/18 16:43 APTT 30.8 Sec. (24.2-36.6) 08/21/18 04:42 1978.25 ng/mlDDU (0-234) H 08/24/18 13:41 POC ABG pH 7.312 (7.35-7.45) L 08/29/18 04:39 POC ABG pCO2 57.6 (35-45) H 08/29/18 04:39 POC ABG pO2 79 (80-105) L 08/29/18 04:39 POC ABG HCO3 29.1 (22-26 mml/L) 08/29/18 04:39 POC ABG Total CO2 31 (23-27mmol/L) 08/29/18 04:39 POC ABG O2 Sat 94 08/29/18 04:39 POC ABG Base Excess 3 ((-2) - (+3)mmol/L) 08/29/18 04:39 30 % 08/29/18 04:39 Sodium 144 mmol/L (137-145) 08/29/18 05:35 Potassium 4.2 mmol/L (3.6-5.0) 08/29/18 05:35 Chloride 105.0 mmol/L (98-107) 08/29/18 05:35 Carbon Dioxide 25 mmol/L (22-30) 08/29/18 05:35 18 mmol/L 08/29/18 05:35 BUN 42 mg/dL (9-20) H 08/29/18 05:35 1.9 mg/dL (0.8-1.5) H 08/29/18 05:35 Estimated GFR 35 ml/min 08/29/18 05:35 22 % 08/29/18 05:35 Glucose 107 mg/dL (75-100) H 08/29/18 05:35 POC Glucose 116 (70-105) H 08/29/18 11:37 Lactic Acid 1.30 mmol/L (0.7-2.0) 08/21/18 20:50 Calcium 8.6 mg/dL (8.4-10.2) 08/29/18 05:35 Magnesium 2.30 mg/dL (1.7-2.3) 08/23/18 14:24 0.60 mg/dL (0.1-1.2) 08/28/18 04:49 AST 27 units/L (5-40) 08/28/18 04:49 ALT 12 units/L (7-56) 08/28/18 04:49 87 units/L (35-129) 08/28/18 04:49 222 units/L (55-170) H 08/21/18 10:45 CK-MB (CK-2) 9.2 ng/mL (0.0-4.0) H 08/21/18 10:45 CK-MB (CK-2) Rel Index 4.1 (0-4) H 08/21/18 10:45 0.044 ng/mL (0.00-0.029) H D 08/21/18 10:45 9.00 mg/dL (0.00-1.30) H 08/24/18 13:41 NT-Pro-B Natriuret Pep > 82978 pg/mL (0-900) H 08/28/18 04:49 5.4 g/dL (6.3-8.2) L 08/28/18 04:49 2.2 g/dL (3.9-5) L 08/28/18 04:49 0.7 % 08/28/18 04:49 Triglycerides 87 mg/dL (2-149) 08/21/18 04:42 Cholesterol 93 mg/dL (50-199) 08/21/18 04:42 44 mg/dL (50-130) L 08/21/18 04:42 41 mg/dL (40-59) 08/21/18 04:42 2.26 % 08/21/18 04:42 Yellow (Yellow) 08/21/18 15:03 Slightly-cloudy (Clear) 08/21/18 15:03 5.0 (5.0-7.0) 08/21/18 15:03 Ur Specific [place] 1.015 (1.003-1.030) 08/21/18 15:03 30 mg/dl mg/dL (Negative) 08/21/18 15:03 Neg mg/dL (Negative) 08/21/18 15:03 Neg mg/dL (Negative) 08/21/18 15:03 Mod (Negative) 08/21/18 15:03 Neg (Negative) 08/21/18 15:03 Neg (Negative) 08/21/18 15:03 < 2.0 mg/dL (<2.0) 08/21/18 15:03 Ur Leukocyte Esterase Tr (Negative) 08/21/18 15:03 13.0 /HPF (0.0-6.0) H 08/21/18 15:03 15.0 /HPF (0.0-6.0) 08/21/18 15:03 U Epithel Cells (Auto) 1.0 /HPF (0-13.0) 08/21/18 15:03 1+ /HPF (Negative) 08/21/18 15:03 Few /HPF 08/21/18 15:03 Random Vancomycin 10.5 ug/mL (0-40.0) 08/26/18 05:53 Hepatitis A IgM Ab Non-reactive (NonReactive) 08/27/18 23:25 Hep Bs Antigen Non-reactive (Negative) 08/27/18 23:25 Hep B Core IgM Ab Non-reactive (NonReactive) 08/27/18 23:25 Non-reactive (NonReactive) 08/27/18 23:25 Active Medications - Current Medications Current Medications: Generic Name Dose Route Start Last Admin Trade Name Freq PRN Reason Stop Dose Admin Acetaminophen 650 mg 08/21/18 06:31 Tylenol PO Q4H PRN Pain MILD(1-3)/Fever >100.5/COOK Acetaminophen 650 mg 08/21/18 06:31 Tylenol MS Q4H PRN Pain MILD(1-3)/Fever >100.5/COOK Albuterol/Ipratropium 1 ampul 08/24/18 20:00 08/29/18 08:53 Duoneb *Not For Prn Use* IH Not Given BIDRT LUIS Lipase/Protease/Amylase 1 each 08/26/18 12:07 [place]aye [place] 10,500 Unit FEEDTUBE PRN PRN For Clogged Feeding Tube Arformoterol Tartrate 15 mcg 08/24/18 20:00 08/29/18 08:52 Brovana Nebu IH 15 mcg Q12HRT LUIS Administration Bisacodyl 10 mg 08/25/18 16:00 08/29/18 13:14 Dulcolax MS Not Given QDAY LUIS Budesonide 0.5 mg 08/24/18 20:00 08/29/18 08:52 Pulmicort IH 0.5 mg Q12HRT LUIS Administration Dextrose 50 ml 08/21/18 06:48 D50w (25gm) Syringe IV PRN PRN Hypoglycemia Famotidine 20 mg 08/25/18 10:00 08/29/18 10:38 Pepcid IV 20 mg DAILY LUIS Administration Fentanyl 50 mcg 08/26/18 16:26 Sublimaze IV Q10MIN PRN ANALGESIA Heparin Sodium (Porcine) 5,000 unit 08/22/18 10:00 08/29/18 10:49 Heparin SUB-Q 5,000 unit Q12HR LUIS Administration Hydralazine HCl 10 mg 08/26/18 15:08 08/29/18 10:35 Apresoline IV 10 mg Q6H PRN Administration Hypertension Hydrophilic Ointment 1 applic 08/21/18 11:34 Vaseline Lip Therapy TP Q2HR PRN Dry Lips Midazolam HCl 100 mg/ Sodium 100 mls @ 2 mls/hr 08/21/18 15:00 08/24/18 18:21 Chloride IV 0 mg/hr TITR LUIS 0 mls/hr Titration Protocol 2 MG/HR Levetiracetam 750 mg/ Dextrose 107.5 mls @ 400 mls/hr 08/24/18 22:00 08/29/18 10:39 IV 400 mls/hr Q12HR LUIS Administration Propofol 1,000 mg in 100 mls @ 4.389 mls/hr 08/26/18 18:00 08/29/18 11:21 Diprivan 10 Mg/Ml IV 0 mcg/kg/min TITR LUIS 0 mls/hr Titration Protocol 5 MCG/KG/MIN Fentanyl Citrate 2,000 mcg in 100 mls @ 7.053 mls/hr 08/27/18 12:00 08/29/18 09:15 Fentanyl Drip Premix IV 0 mcg/kg/hr TITR LUIS 0 mls/hr Titration Protocol 1 MCG/KG/HR Cefazolin Sodium 2 gm/ Sodium 100 mls @ 200 mls/hr 08/29/18 18:00 Chloride IV QPM [facility] Insulin Human Lispro 0 unit 08/21/18 12:00 08/29/18 13:14 Humalog SUB-Q Not Given Q6HR [facility] Protocol Metoclopramide HCl 10 mg 08/25/18 18:00 08/29/18 08:01 Reglan IV Not Given Q12H [facility] Midazolam HCl 2 mg 08/21/18 14:32 08/21/18 14:52 Versed IV 2 mg Q10MIN PRN Administration Sedation Morphine Sulfate 2 mg 08/26/18 14:24 Morphine IV Q6H PRN Pain, Moderate (4-6) Multi-Ingred Cream/Lotion/Oil/Oint 1 applic 08/21/18 11:34 Artificial Tears Ophth Oint OU Q4HR PRN Dry Eye(s) Ondansetron HCl 4 mg 08/21/18 06:31 Zofran IV Q8H PRN Nausea And Vomiting Polyethylene Glycol 17 gm 08/26/18 10:00 08/29/18 10:55 Miralax 3350 PO 17 gm QDAY LUIS Administration Simple Syrup 15 ml 08/26/18 12:07 Simple Syrup FEEDTUBE PRN PRN Hypoglycemia Simple Syrup 30 ml 08/26/18 12:07 Simple Syrup FEEDTUBE PRN PRN Hypoglycemia Sodium Bicarbonate 325 mg 08/26/18 12:07 Sodium Bicarbonate FEEDTUBE PRN PRN For Clogged Feeding Tube Sodium Chloride 10 ml 08/21/18 10:00 08/29/18 10:39 Sodium Chloride Flush Syringe 10 Ml IV 10 ml BID LUIS Administration Sodium Chloride 10 ml 08/21/18 06:31 Sodium Chloride Flush Syringe 10 Ml IV PRN PRN LINE FLUSH Nutrition/Malnutrition Assess - Dietary Evaluation Nutrition/Malnutrition Findings: Nutrition Notes Start: 08/21/18 16:58 Freq: Status: Active Protocol: Document 08/29/18 10:35 LP (Rec: 08/29/18 10:37 LP [id number]) Nutrition Notes Need for Assessment generated from: MD Order Initial or Follow up Brief Note Subjective/Other Information Consult for TF. Pt ok to increase TF to goal rate. Nutrition Intervention Nutrition Support: Nepro at 45ml/hr 150ml q4h flush Kcal 1,944 Protein (gm) 87 Fluid (mL) 785 Goal #1 TF tolerance Goal #2 Meet at least 80% of kcal and protein needs Anticipated Discharge Needs: Unable to determine at this time Follow-Up By: 09/01/18 Additional Comments Follow for TF tolerance
[2018-08-29] MEDS ORDERED: NORMODYNE IV STA (18:06)
[2018-08-30] MEDS: HumaLOG SUB-Q SCH ×6 (00:30→23:55)
[2018-08-30] MEDS: MORPHINE IV PRN (01:40)
[2018-08-30] MEDS: REGLAN IV SCH ×3 (06:29→18:39)
[2018-08-30 06:40] LABS: Hematocrit 25.6 % (35.5-45.6); Hemoglobin 8.2 gm/dl (11.8-15.2); Mean Corpuscular HGB Conc 32 % (32-34); Mean Corpuscular Hemoglobin 31 pg (28-32); Mean Corpuscular Volume 96 fl (84-94); Platelet Count 118 K/mm3 (140-440); Red Blood Count 2.68 M/mm3 (3.65-5.03); Red Cell Distribution Width 17.2 % (13.2-15.2)
--- NOTE | 2018-08-30 06:40 | Progress Note ---
Assessment and Plan s/p Cardiopulmonary arrest with ROSC Acute on chronic hypoxemic respiratory failure on MVS Lactic acidosis Acute metabolic/respiratory acidosis Acute on chronic renal failure (multifactorial) Sepsis probably secondary to aspiration PNA AE-COPD Acute metabolic-toxic encephalopathy Morbid obesity NSTEMI- probably type 2 ischemia Type 2 DM h/o Liver disease h/o Colon CA Hyperkalemia LEFT TMJ JOINT DISLOCATION-POA - will continue SBT whole day if tolerates and rest on AC overnight - tentative extubation if passes SBT in am - keep set rate at 12/min - surgery evaluation negative for bowel obstruction and now tolerating tube feeds well - continue HD/UF for toxin and volume clearance - Dopplers negative but D-dimer elevated; will get VQ post extubation - repeat CXR in am - continue brovana and pulmicort for severe COPD history / exacerbation (reduced JENELLE frequency) - continue daily SATs and SBTs as tolerated (titrate sedation for RASS 0 to -1) - s/p EEG - neurology evaluation ongoing - Will need maxillo facial surgery for evaluation of TMJ dislocation - continue enteral nutrition with aspiration precautions...HOB >40 - continue Reglan - continue lung protective strategies - VAP bundle addressed - continue supplemental oxygen to keep O2 sats >/= 88-90% - continue restrictive oxygen therapy acutely - continue bronchodilators with pulmonary hygiene per RT - continue systemic steroids with slow taper - continue accuchecks with glycemic control per SSI for target blood glucose <180mg/dL - Agitation management - Prevention of delirium, maintenance of sleep-wake cycle - Antibiotics per ID - MSSA pneumonia and contact precautions stopped - Avoid nephrotoxic agents, adjust all antibiotics and medications for CrCL and GFR - VTE and Stress ulcer prophylaxis( Heparin/Famotidine) - Madison catheter in this critically ill patient with acute on chronic renal failure, requiring strict intake and output monitoring (Will assess daily, the need for ongoing Madison catheter) - continue other care per attending / other consultants .... care plan discussed at length with his in room Discussed in ICU-IDT rounds CONDITION: CRITICAL PROGNOSIS: GUARDED CODE STATUS: FULL CODE The high probability of a clinically significant, sudden or life-threatening deterioration of the [respiratory, cardiovascular, renal, gastrointestinal, neurology] system(s) required my full and direct attention, intervention and personal management. The aggregate critical care time was [32 ] minutes without overlap. Time includes spent on; [x] Data Review and interpretation [x] Patient assessment and monitoring of vital signs [x] Documentation [x] Medication orders and management Subjective Date of service: 08/29/18 Principal diagnosis: s/p cardiac arrest; severe sepsis; acute hypoxemic- hypercapnic resp failure Interval history: LATE ENTRY FOR DOS 08/29/18 Patient is seen today for: cardiopulmonary arrest; severe sepsis; acute hypoxemic-hypercapnic respiratory failure on MVS; edgar on ckd Seen and examined at bedside; 24hour events reviewed; nursing and respiratory care staff consulted; no adverse overnight events reported to me; resting pe acefully in bed; much more alert and tolerating SBT very well; No N/V/F/C; in room; he denies acute chest pains or palpitations and suggest's he will be able to tolerate NIV well if needed acutely post extubation Objective Vital Signs - 12hr 08/29/18 08/29/18 08/29/18 18:46 19:00 19:16 Temperature Pulse Rate 76 72 71 Pulse Rate [ Anterior Bilateral Throughout] Respiratory 10 L 14 14 Rate Respiratory Rate [Anterior Bilateral Throughout] Blood Pressure 181/61 181/61 O2 Sat by Pulse 96 95 95 Oximetry 08/29/18 08/29/18 08/29/18 19:20 19:30 19:46 Temperature Pulse Rate 73 75 73 Pulse Rate [ Anterior Bilateral Throughout] Respiratory 14 13 13 Rate Respiratory Rate [Anterior Bilateral Throughout] Blood Pressure 181/61 176/56 173/56 O2 Sat by Pulse 98 95 98 Oximetry 08/29/18 08/29/18 08/29/18 19:58 20:00 20:11 Temperature 97.1 F L Pulse Rate 73 79 Pulse Rate [ 80 Anterior Bilateral Throughout] Respiratory 13 Rate Respiratory 12 Rate [Anterior Bilateral Throughout] Blood Pressure 175/56 173/56 O2 Sat by Pulse 97 96 Oximetry 08/29/18 08/29/18 08/29/18 20:13 20:16 20:28 Temperature Pulse Rate 70 76 Pulse Rate [ 74 Anterior Bilateral Throughout] Respiratory 12 15 Rate Respiratory 13 Rate [Anterior Bilateral Throughout] Blood Pressure 175/56 175/56 O2 Sat by Pulse 97 95 Oximetry 08/29/18 08/29/18 08/29/18 20:30 20:36 20:40 Temperature Pulse Rate 74 83 74 Pulse Rate [ Anterior Bilateral Throughout] Respiratory 16 14 14 Rate Respiratory Rate [Anterior Bilateral Throughout] Blood Pressure 185/65 185/65 O2 Sat by Pulse 91 97 98 Oximetry 08/29/18 08/29/18 08/29/18 20:46 21:00 21:16 Temperature Pulse Rate 83 79 85 Pulse Rate [ Anterior Bilateral Throughout] Respiratory 15 15 19 Rate Respiratory Rate [Anterior Bilateral Throughout] Blood Pressure 175/56 175/56 174/57 O2 Sat by Pulse 97 97 98 Oximetry 08/29/18 08/29/18 08/29/18 21:30 21:46 22:00 Temperature Pulse Rate 77 79 76 Pulse Rate [ Anterior Bilateral Throughout] Respiratory 15 14 14 Rate Respiratory Rate [Anterior Bilateral Throughout] Blood Pressure 164/50 164/50 165/55 O2 Sat by Pulse 97 98 98 Oximetry 08/29/18 08/29/18 08/29/18 22:05 22:16 22:30 Temperature Pulse Rate 79 75 Pulse Rate [ Anterior Bilateral Throughout] Respiratory 14 17 15 Rate Respiratory Rate [Anterior Bilateral Throughout] Blood Pressure 165/55 169/55 O2 Sat by Pulse 98 97 98 Oximetry 08/29/18 08/29/18 08/29/18 22:46 23:00 23:16 Temperature Pulse Rate 77 73 76 Pulse Rate [ Anterior Bilateral Throughout] Respiratory 15 13 15 Rate Respiratory Rate [Anterior Bilateral Throughout] Blood Pressure 169/55 153/48 153/48 O2 Sat by Pulse 97 98 98 Oximetry 08/29/18 08/29/18 08/30/18 23:30 23:46 00:00 Temperature Pulse Rate 76 75 76 Pulse Rate [ Anterior Bilateral Throughout] Respiratory 16 15 12 Rate Respiratory Rate [Anterior Bilateral Throughout] Blood Pressure 167/53 167/53 169/55 O2 Sat by Pulse 97 98 96 Oximetry 08/30/18 08/30/18 08/30/18 00:16 00:20 00:30 Temperature 98.0 F Pulse Rate 75 76 Pulse Rate [ Anterior Bilateral Throughout] Respiratory 14 16 Rate Respiratory Rate [Anterior Bilateral Throughout] Blood Pressure 169/55 171/57 O2 Sat by Pulse 98 97 Oximetry 08/30/18 08/30/18 08/30/18 00:46 00:52 01:00 Temperature Pulse Rate 76 76 76 Pulse Rate [ Anterior Bilateral Throughout] Respiratory 19 18 Rate Respiratory Rate [Anterior Bilateral Throughout] Blood Pressure 171/57 171/57 169/55 O2 Sat by Pulse 92 97 95 Oximetry 08/30/18 08/30/18 08/30/18 01:16 01:30 01:40 Temperature Pulse Rate 74 73 Pulse Rate [ Anterior Bilateral Throughout] Respiratory 17 18 18 Rate Respiratory Rate [Anterior Bilateral Throughout] Blood Pressure 210/76 210/76 O2 Sat by Pulse 97 96 Oximetry 08/30/18 08/30/18 08/30/18 01:46 02:00 02:10 Temperature Pulse Rate 74 69 Pulse Rate [ Anterior Bilateral Throughout] Respiratory 14 15 12 Rate Respiratory Rate [Anterior Bilateral Throughout] Blood Pressure 174/52 164/52 O2 Sat by Pulse 96 95 Oximetry 08/30/18 08/30/18 08/30/18 02:16 02:21 02:30 Temperature Pulse Rate 65 73 67 Pulse Rate [ Anterior Bilateral Throughout] Respiratory 16 14 12 Rate Respiratory Rate [Anterior Bilateral Throughout] Blood Pressure 160/46 160/46 O2 Sat by Pulse 97 98 95 Oximetry 08/30/18 08/30/18 08/30/18 02:46 03:00 03:16 Temperature Pulse Rate 68 70 75 Pulse Rate [ Anterior Bilateral Throughout] Respiratory 17 15 14 Rate Respiratory Rate [Anterior Bilateral Throughout] Blood Pressure 159/52 159/52 181/58 O2 Sat by Pulse 96 93 94 Oximetry 08/30/18 08/30/18 08/30/18 03:30 03:46 04:00 Temperature Pulse Rate 71 70 71 Pulse Rate [ Anterior Bilateral Throughout] Respiratory 15 15 17 Rate Respiratory Rate [Anterior Bilateral Throughout] Blood Pressure 181/58 165/51 180/52 O2 Sat by Pulse 94 93 94 Oximetry 08/30/18 08/30/18 08/30/18 04:16 04:20 04:25 Temperature 98.0 F Pulse Rate 81 75 74 Pulse Rate [ Anterior Bilateral Throughout] Respiratory 16 14 Rate Respiratory Rate [Anterior Bilateral Throughout] Blood Pressure 180/52 196/68 O2 Sat by Pulse 91 97 98 Oximetry 08/30/18 08/30/18 08/30/18 04:30 04:46 05:00 Temperature Pulse Rate 74 73 70 Pulse Rate [ Anterior Bilateral Throughout] Respiratory 15 16 16 Rate Respiratory Rate [Anterior Bilateral Throughout] Blood Pressure 180/52 175/61 175/61 O2 Sat by Pulse 99 99 Oximetry 08/30/18 08/30/18 08/30/18 05:16 05:30 05:46 Temperature Pulse Rate 72 66 67 Pulse Rate [ Anterior Bilateral Throughout] Respiratory 14 14 12 Rate Respiratory Rate [Anterior Bilateral Throughout] Blood Pressure 172/56 172/56 169/56 O2 Sat by Pulse 99 99 99 Oximetry 08/30/18 05:48 Temperature Pulse Rate 67 Pulse Rate [ Anterior Bilateral Throughout] Respiratory 14 Rate Respiratory Rate [Anterior Bilateral Throughout] Blood Pressure O2 Sat by Pulse 98 Oximetry Constitutional: alert, appears uncomfortable, other (morbidly obese, orally intubated, 7.5ETT at 24cm at the lip, no dys-synchrony) Eyes: non-icteric ENT: oropharynx moist, other (orally intubated, ETT 8, 24cm at the lip, OGT in place) Neck: supple, no JVD, other (short neck) Effort: mildly labored Ascultation: Bilateral: diminished breath sounds, rhonchi (coarse BS bilaterally in bases) Percussion: Bilateral: not dull Cardiovascular: regular rate and rhythm, other (S1,S2, no murmurs, no gallops or rubs) Gastrointestinal: normoactive bowel sounds, soft, non-tender, non-distended, other (Madison catheter in place, minimal urine tea colored) Integumentary: normal Extremities: no cyanosis, no edema, pink and warm, pulses normal, no ischemia or petechiae Neurologic: normal mental status, non-focal exam (grossly), pupils equal and round, CN II-XII normal Psychiatric: mood appropriate, affect normal CBC and BMP: 08/29/18 05:35 08/29/18 05:35 ABG, PT/INR, D-dimer: ABG POC ABG pH 7.384 (7.35-7.45) 08/30/18 04:41 POC ABG pCO2 48.1 (35-45) H 08/30/18 04:41 POC ABG pO2 84 (80-105) 08/30/18 04:41 POC ABG HCO3 28.7 (22-26 mml/L) 08/30/18 04:41 POC ABG Total CO2 30 (23-27mmol/L) 08/30/18 04:41 POC ABG O2 Sat 96 08/30/18 04:41 PT/INR, D-dimer PT 15.6 Sec. (12.2-14.9) H 08/25/18 16:43 INR 1.27 (0.87-1.13) H 08/25/18 16:43 1978.25 ng/mlDDU (0-234) H 08/24/18 13:41 Abnormal lab findings: Abnormal Labs 08/21/18 08/21/18 08/21/18 04:42 04:42 04:42 WBC 19.1 H RBC 2.49 L Hgb 7.7 L Hct 24.5 L MCV 98 H RDW 17.7 H Plt Count Seg Neuts % (Manual) 84.0 H Lymphocytes % (Manual) 7.0 L Monocytes % (Manual) 9.0 H Nucleated RBC % Seg Neutrophils # Man 16.0 H Lymphocytes # (Manual) Monocytes # (Manual) 1.7 H PT 20.1 H INR 1.76 H D-Dimer POC ABG pH POC ABG pCO2 POC ABG pO2 Sodium Potassium Chloride Carbon Dioxide BUN Creatinine Glucose POC Glucose Lactic Acid Calcium Total Bilirubin AST ALT Total Creatine Kinase CK-MB (CK-2) CK-MB (CK-2) Rel Index Troponin T 0.032 H C-Reactive Protein NT-Pro-B Natriuret Pep Total Protein Albumin LDL Cholesterol Direct 44 L Urine WBC (Auto) 08/21/18 08/21/18 08/21/18 04:42 04:42 04:42 WBC RBC Hgb Hct MCV RDW Plt Count Seg Neuts % (Manual) Lymphocytes % (Manual) Monocytes % (Manual) Nucleated RBC % Seg Neutrophils # Man Lymphocytes # (Manual) Monocytes # (Manual) PT INR D-Dimer POC ABG pH POC ABG pCO2 POC ABG pO2 Sodium Potassium 6.0 H Chloride Carbon Dioxide 15 L BUN 57 H Creatinine 4.3 H Glucose 111 H POC Glucose Lactic Acid 5.80 H* Calcium Total Bilirubin 1.80 H AST 212 H ALT 94 H Total Creatine Kinase CK-MB (CK-2) CK-MB (CK-2) Rel Index Troponin T C-Reactive Protein NT-Pro-B Natriuret Pep 08002 H Total Protein Albumin 3.2 L LDL Cholesterol Direct Urine WBC (Auto) 08/21/18 08/21/18 08/21/18 05:08 05:58 05:58 WBC RBC Hgb Hct MCV RDW Plt Count Seg Neuts % (Manual) Lymphocytes % (Manual) Monocytes % (Manual) Nucleated RBC % Seg Neutrophils # Man Lymphocytes # (Manual) Monocytes # (Manual) PT INR D-Dimer POC ABG pH 7.164 L POC ABG pCO2 46.3 H POC ABG pO2 229 H Sodium Potassium Chloride Carbon Dioxide BUN Creatinine Glucose POC Glucose Lactic Acid 5.10 H* Calcium Total Bilirubin AST ALT Total Creatine Kinase CK-MB (CK-2) CK-MB (CK-2) Rel Index Troponin T 0.035 H C-Reactive Protein NT-Pro-B Natriuret Pep Total Protein Albumin LDL Cholesterol Direct Urine WBC (Auto) 08/21/18 08/21/18 08/21/18 06:45 06:45 06:53 WBC RBC Hgb Hct MCV RDW Plt Count Seg Neuts % (Manual) Lymphocytes % (Manual) Monocytes % (Manual) Nucleated RBC % Seg Neutrophils # Man Lymphocytes # (Manual) Monocytes # (Manual) PT INR D-Dimer POC ABG pH 7.160 L POC ABG pCO2 46.8 H POC ABG pO2 Sodium Potassium Chloride Carbon Dioxide BUN Creatinine Glucose POC Glucose Lactic Acid 4.70 H* Calcium Total Bilirubin AST ALT Total Creatine Kinase 234 H CK-MB (CK-2) 9.1 H CK-MB (CK-2) Rel Index Troponin T 0.032 H C-Reactive Protein NT-Pro-B Natriuret Pep Total Protein Albumin LDL Cholesterol Direct Urine WBC (Auto) 08/21/18 08/21/18 08/21/18 10:43 10:43 10:45 WBC RBC Hgb Hct MCV RDW Plt Count Seg Neuts % (Manual) Lymphocytes % (Manual) Monocytes % (Manual) Nucleated RBC % Seg Neutrophils # Man Lymphocytes # (Manual) Monocytes # (Manual) PT INR D-Dimer POC ABG pH POC ABG pCO2 POC ABG pO2 Sodium Potassium Chloride Carbon Dioxide 17 L BUN 59 H Creatinine 4.2 H Glucose POC Glucose Lactic Acid 3.70 H* Calcium Total Bilirubin AST ALT Total Creatine Kinase 222 H CK-MB (CK-2) 9.2 H CK-MB (CK-2) Rel Index 4.1 H Troponin T 0.044 H D C-Reactive Protein NT-Pro-B Natriuret Pep Total Protein Albumin LDL Cholesterol Direct Urine WBC (Auto) 08/21/18 08/21/18 08/21/18 11:38 12:33 15:03 WBC RBC Hgb Hct MCV RDW Plt Count Seg Neuts % (Manual) Lymphocytes % (Manual) Monocytes % (Manual) Nucleated RBC % Seg Neutrophils # Man Lymphocytes # (Manual) Monocytes # (Manual) PT INR D-Dimer POC ABG pH 7.250 L POC ABG pCO2 POC ABG pO2 121 H Sodium Potassium Chloride Carbon Dioxide BUN Creatinine Glucose POC Glucose 129 H Lactic Acid Calcium Total Bilirubin AST ALT Total Creatine Kinase CK-MB (CK-2) CK-MB (CK-2) Rel Index Troponin T C-Reactive Protein NT-Pro-B Natriuret Pep Total Protein Albumin LDL Cholesterol Direct Urine WBC (Auto) 13.0 H 08/21/18 08/22/18 08/22/18 15:47 00:01 04:27 WBC RBC Hgb Hct MCV RDW Plt Count Seg Neuts % (Manual) Lymphocytes % (Manual) Monocytes % (Manual) Nucleated RBC % Seg Neutrophils # Man Lymphocytes # (Manual) Monocytes # (Manual) PT INR D-Dimer POC ABG pH 7.457 H POC ABG pCO2 POC ABG pO2 117 H Sodium Potassium Chloride Carbon Dioxide BUN Creatinine Glucose POC Glucose 211 H Lactic Acid 2.70 H* Calcium Total Bilirubin AST ALT Total Creatine Kinase CK-MB (CK-2) CK-MB (CK-2) Rel Index Troponin T C-Reactive Protein NT-Pro-B Natriuret Pep Total Protein Albumin LDL Cholesterol Direct Urine WBC (Auto) 08/22/18 08/22/18 08/22/18 05:46 06:10 06:10 WBC RBC 2.27 L Hgb 7.0 L Hct 21.2 L MCV RDW 16.8 H Plt Count 129 L Seg Neuts % (Manual) 95.0 H Lymphocytes % (Manual) 1.0 L Monocytes % (Manual) Nucleated RBC % 1.0 H Seg Neutrophils # Man 7.8 H Lymphocytes # (Manual) 0.1 L Monocytes # (Manual) PT INR D-Dimer POC ABG pH POC ABG pCO2 POC ABG pO2 Sodium Potassium Chloride Carbon Dioxide 20 L BUN 63 H Creatinine 3.9 H Glucose 205 H POC Glucose 223 H Lactic Acid Calcium Total Bilirubin AST ALT Total Creatine Kinase CK-MB (CK-2) CK-MB (CK-2) Rel Index Troponin T C-Reactive Protein NT-Pro-B Natriuret Pep Total Protein Albumin LDL Cholesterol Direct Urine WBC (Auto) 08/22/18 08/22/18 08/22/18 06:10 12:57 16:21 WBC RBC Hgb Hct MCV RDW Plt Count Seg Neuts % (Manual) Lymphocytes % (Manual) Monocytes % (Manual) Nucleated RBC % Seg Neutrophils # Man Lymphocytes # (Manual) Monocytes # (Manual) PT INR D-Dimer POC ABG pH 7.477 H POC ABG pCO2 POC ABG pO2 Sodium Potassium Chloride Carbon Dioxide BUN Creatinine Glucose POC Glucose 166 H Lactic Acid Calcium Total Bilirubin AST ALT Total Creatine Kinase CK-MB (CK-2) CK-MB (CK-2) Rel Index Troponin T C-Reactive Protein 23.60 H NT-Pro-B Natriuret Pep Total Protein Albumin LDL Cholesterol Direct Urine WBC (Auto) 08/22/18 08/22/18 08/23/18 17:41 23:42 04:38 WBC RBC Hgb Hct MCV RDW Plt Count Seg Neuts % (Manual) Lymphocytes % (Manual) Monocytes % (Manual) Nucleated RBC % Seg Neutrophils # Man Lymphocytes # (Manual) Monocytes # (Manual) PT INR D-Dimer POC ABG pH 7.249 L POC ABG pCO2 53.5 H POC ABG pO2 73 L Sodium Potassium Chloride Carbon Dioxide BUN Creatinine Glucose POC Glucose 131 H 168 H Lactic Acid Calcium Total Bilirubin AST ALT Total Creatine Kinase CK-MB (CK-2) CK-MB (CK-2) Rel Index Troponin T C-Reactive Protein NT-Pro-B Natriuret Pep Total Protein Albumin LDL Cholesterol Direct Urine WBC (Auto) 08/23/18 08/23/18 08/23/18 04:52 04:52 04:52 WBC RBC 2.39 L Hgb 7.5 L Hct 22.8 L MCV 95 H RDW 17.6 H Plt Count Seg Neuts % (Manual) Lymphocytes % (Manual) Monocytes % (Manual) Nucleated RBC % Seg Neutrophils # Man Lymphocytes # (Manual) Monocytes # (Manual) PT INR D-Dimer POC ABG pH POC ABG pCO2 POC ABG pO2 Sodium Potassium 5.6 H 5.6 H Chloride Carbon Dioxide 21 L BUN 71 H 72 H Creatinine 4.1 H 4.0 H Glucose 141 H 140 H POC Glucose Lactic Acid Calcium 8.3 L 8.2 L Total Bilirubin AST 247 H ALT 220 H Total Creatine Kinase CK-MB (CK-2) CK-MB (CK-2) Rel Index Troponin T C-Reactive Protein NT-Pro-B Natriuret Pep Total Protein Albumin 2.8 L LDL Cholesterol Direct Urine WBC (Auto) 08/23/18 08/23/18 08/23/18 05:50 08:38 12:21 WBC RBC Hgb Hct MCV RDW Plt Count Seg Neuts % (Manual) Lymphocytes % (Manual) Monocytes % (Manual) Nucleated RBC % Seg Neutrophils # Man Lymphocytes # (Manual) Monocytes # (Manual) PT INR D-Dimer POC ABG pH POC ABG pCO2 POC ABG pO2 Sodium Potassium Chloride Carbon Dioxide BUN Creatinine Glucose POC Glucose 160 H 177 H Lactic Acid Calcium Total Bilirubin AST ALT Total Creatine Kinase CK-MB (CK-2) CK-MB (CK-2) Rel Index Troponin T C-Reactive Protein NT-Pro-B Natriuret Pep 36193 H Total Protein Albumin LDL Cholesterol Direct Urine WBC (Auto) 08/23/18 08/23/18 08/23/18 12:36 14:24 18:05 WBC RBC Hgb Hct MCV RDW Plt Count Seg Neuts % (Manual) Lymphocytes % (Manual) Monocytes % (Manual) Nucleated RBC % Seg Neutrophils # Man Lymphocytes # (Manual) Monocytes # (Manual) PT INR D-Dimer POC ABG pH 7.337 L POC ABG pCO2 POC ABG pO2 145 H Sodium 136 L Potassium 5.2 H Chloride Carbon Dioxide BUN 76 H Creatinine 4.2 H Glucose 158 H POC Glucose 169 H Lactic Acid Calcium 8.1 L Total Bilirubin AST ALT Total Creatine Kinase CK-MB (CK-2) CK-MB (CK-2) Rel Index Troponin T C-Reactive Protein NT-Pro-B Natriuret Pep Total Protein Albumin LDL Cholesterol Direct Urine WBC (Auto) 08/23/18 08/23/18 08/24/18 22:43 23:42 05:16 WBC RBC Hgb Hct MCV RDW Plt Count Seg Neuts % (Manual) Lymphocytes % (Manual) Monocytes % (Manual) Nucleated RBC % Seg Neutrophils # Man Lymphocytes # (Manual) Monocytes # (Manual) PT INR D-Dimer POC ABG pH POC ABG pCO2 POC ABG pO2 Sodium 136 L Potassium 5.3 H 5.2 H Chloride 97.9 L Carbon Dioxide BUN 80 H 86 H Creatinine 4.0 H 4.3 H Glucose 164 H 202 H POC Glucose 183 H Lactic Acid Calcium 7.9 L Total Bilirubin AST ALT Total Creatine Kinase CK-MB (CK-2) CK-MB (CK-2) Rel Index Troponin T C-Reactive Protein NT-Pro-B Natriuret Pep Total Protein Albumin LDL Cholesterol Direct Urine WBC (Auto) 08/24/18 08/24/18 08/24/18 05:21 05:29 10:10 WBC RBC 2.47 L Hgb 7.5 L Hct 23.3 L MCV RDW 17.5 H Plt Count 118 L Seg Neuts % (Manual) 92.0 H Lymphocytes % (Manual) 2.0 L Monocytes % (Manual) Nucleated RBC % Seg Neutrophils # Man 8.8 H Lymphocytes # (Manual) 0.2 L Monocytes # (Manual) PT INR D-Dimer POC ABG pH 7.243 L POC ABG pCO2 56.8 H POC ABG pO2 Sodium Potassium Chloride Carbon Dioxide BUN Creatinine Glucose POC Glucose 209 H Lactic Acid Calcium Total Bilirubin AST ALT Total Creatine Kinase CK-MB (CK-2) CK-MB (CK-2) Rel Index Troponin T C-Reactive Protein NT-Pro-B Natriuret Pep Total Protein Albumin LDL Cholesterol Direct Urine WBC (Auto) 08/24/18 08/24/18 08/24/18 10:10 11:19 13:41 WBC RBC Hgb Hct MCV RDW Plt Count Seg Neuts % (Manual) Lymphocytes % (Manual) Monocytes % (Manual) Nucleated RBC % Seg Neutrophils # Man Lymphocytes # (Manual) Monocytes # (Manual) PT INR D-Dimer 1978.25 H POC ABG pH POC ABG pCO2 POC ABG pO2 Sodium Potassium Chloride Carbon Dioxide BUN Creatinine Glucose POC Glucose 212 H Lactic Acid Calcium Total Bilirubin AST ALT Total Creatine Kinase CK-MB (CK-2) CK-MB (CK-2) Rel Index Troponin T C-Reactive Protein NT-Pro-B Natriuret Pep 21623 H Total Protein Albumin LDL Cholesterol Direct Urine WBC (Auto) 08/24/18 08/24/18 08/24/18 13:41 14:27 17:23 WBC RBC Hgb Hct MCV RDW Plt Count Seg Neuts % (Manual) Lymphocytes % (Manual) Monocytes % (Manual) Nucleated RBC % Seg Neutrophils # Man Lymphocytes # (Manual) Monocytes # (Manual) PT INR D-Dimer POC ABG pH POC ABG pCO2 POC ABG pO2 Sodium 136 L Potassium 5.1 H Chloride 97.8 L Carbon Dioxide BUN 90 H Creatinine 4.1 H Glucose 157 H POC Glucose 155 H Lactic Acid Calcium 8.0 L Total Bilirubin AST ALT Total Creatine Kinase CK-MB (CK-2) CK-MB (CK-2) Rel Index Troponin T C-Reactive Protein 9.00 H NT-Pro-B Natriuret Pep Total Protein Albumin LDL Cholesterol Direct Urine WBC (Auto) 08/25/18 08/25/18 08/25/18 00:38 05:22 05:57 WBC RBC Hgb Hct MCV RDW Plt Count Seg Neuts % (Manual) Lymphocytes % (Manual) Monocytes % (Manual) Nucleated RBC % Seg Neutrophils # Man Lymphocytes # (Manual) Monocytes # (Manual) PT INR D-Dimer POC ABG pH 7.238 L POC ABG pCO2 58.2 H POC ABG pO2 Sodium Potassium 5.4 H Chloride Carbon Dioxide BUN 98 H Creatinine 4.3 H Glucose 217 H POC Glucose 176 H Lactic Acid Calcium 8.3 L Total Bilirubin AST ALT Total Creatine Kinase CK-MB (CK-2) CK-MB (CK-2) Rel Index Troponin T C-Reactive Protein NT-Pro-B Natriuret Pep 27052 H Total Protein Albumin LDL Cholesterol Direct Urine WBC (Auto) 08/25/18 08/25/18 08/25/18 06:56 08:59 11:38 WBC RBC Hgb Hct MCV RDW Plt Count Seg Neuts % (Manual) Lymphocytes % (Manual) Monocytes % (Manual) Nucleated RBC % Seg Neutrophils # Man Lymphocytes # (Manual) Monocytes # (Manual) PT INR D-Dimer POC ABG pH 7.348 L POC ABG pCO2 48.6 H POC ABG pO2 Sodium Potassium Chloride Carbon Dioxide BUN Creatinine Glucose POC Glucose 247 H 235 H Lactic Acid Calcium Total Bilirubin AST ALT Total Creatine Kinase CK-MB (CK-2) CK-MB (CK-2) Rel Index Troponin T C-Reactive Protein NT-Pro-B Natriuret Pep Total Protein Albumin LDL Cholesterol Direct Urine WBC (Auto) 08/25/18 08/25/18 08/25/18 12:29 16:43 16:43 WBC 14.7 H RBC 2.90 L Hgb 8.9 L Hct 27.4 L MCV 95 H RDW 17.3 H Plt Count 119 L Seg Neuts % (Manual) 94.0 H Lymphocytes % (Manual) 2.0 L Monocytes % (Manual) Nucleated RBC % Seg Neutrophils # Man 13.8 H Lymphocytes # (Manual) 0.3 L Monocytes # (Manual) PT 15.6 H INR 1.27 H D-Dimer POC ABG pH POC ABG pCO2 POC ABG pO2 Sodium Potassium Chloride Carbon Dioxide BUN Creatinine Glucose POC Glucose 237 H Lactic Acid Calcium Total Bilirubin AST ALT Total Creatine Kinase CK-MB (CK-2) CK-MB (CK-2) Rel Index Troponin T C-Reactive Protein NT-Pro-B Natriuret Pep Total Protein Albumin LDL Cholesterol Direct Urine WBC (Auto) 08/25/18 08/26/18 08/26/18 17:22 00:16 04:56 WBC RBC Hgb Hct MCV RDW Plt Count Seg Neuts % (Manual) Lymphocytes % (Manual) Monocytes % (Manual) Nucleated RBC % Seg Neutrophils # Man Lymphocytes # (Manual) Monocytes # (Manual) PT INR D-Dimer POC ABG pH POC ABG pCO2 45.2 H POC ABG pO2 Sodium Potassium Chloride Carbon Dioxide BUN Creatinine Glucose POC Glucose 200 H 180 H Lactic Acid Calcium Total Bilirubin AST ALT Total Creatine Kinase CK-MB (CK-2) CK-MB (CK-2) Rel Index Troponin T C-Reactive Protein NT-Pro-B Natriuret Pep Total Protein Albumin LDL Cholesterol Direct Urine WBC (Auto) 08/26/18 08/26/18 08/26/18 05:53 06:20 08:48 WBC RBC Hgb Hct MCV RDW Plt Count Seg Neuts % (Manual) Lymphocytes % (Manual) Monocytes % (Manual) Nucleated RBC % Seg Neutrophils # Man Lymphocytes # (Manual) Monocytes # (Manual) PT INR D-Dimer POC ABG pH POC ABG pCO2 POC ABG pO2 Sodium Potassium Chloride Carbon Dioxide BUN 106 H Creatinine 3.9 H Glucose 137 H POC Glucose 131 H 126 H Lactic Acid Calcium 8.1 L Total Bilirubin AST ALT Total Creatine Kinase CK-MB (CK-2) CK-MB (CK-2) Rel Index Troponin T C-Reactive Protein NT-Pro-B Natriuret Pep > 54946 H Total Protein Albumin LDL Cholesterol Direct Urine WBC (Auto) 08/26/18 08/26/18 08/26/18 11:39 17:33 18:02 WBC RBC Hgb Hct MCV RDW Plt Count Seg Neuts % (Manual) Lymphocytes % (Manual) Monocytes % (Manual) Nucleated RBC % Seg Neutrophils # Man Lymphocytes # (Manual) Monocytes # (Manual) PT INR D-Dimer POC ABG pH POC ABG pCO2 POC ABG pO2 58 L Sodium Potassium Chloride Carbon Dioxide BUN Creatinine Glucose POC Glucose 156 H 173 H Lactic Acid Calcium Total Bilirubin AST ALT Total Creatine Kinase CK-MB (CK-2) CK-MB (CK-2) Rel Index Troponin T C-Reactive Protein NT-Pro-B Natriuret Pep Total Protein Albumin LDL Cholesterol Direct Urine WBC (Auto) 08/26/18 08/27/18 08/27/18 23:12 04:59 11:51 WBC RBC Hgb Hct MCV RDW Plt Count Seg Neuts % (Manual) Lymphocytes % (Manual) Monocytes % (Manual) Nucleated RBC % Seg Neutrophils # Man Lymphocytes # (Manual) Monocytes # (Manual) PT INR D-Dimer POC ABG pH 7.563 H POC ABG pCO2 POC ABG pO2 69 L Sodium Potassium Chloride Carbon Dioxide BUN Creatinine Glucose POC Glucose 130 H 107 H Lactic Acid Calcium Total Bilirubin AST ALT Total Creatine Kinase CK-MB (CK-2) CK-MB (CK-2) Rel Index Troponin T C-Reactive Protein NT-Pro-B Natriuret Pep Total Protein Albumin LDL Cholesterol Direct Urine WBC (Auto) 08/27/18 08/27/18 08/27/18 11:58 11:58 11:58 WBC RBC 2.66 L Hgb 8.1 L Hct 24.7 L MCV RDW 16.7 H Plt Count Seg Neuts % (Manual) Lymphocytes % (Manual) Monocytes % (Manual) Nucleated RBC % Seg Neutrophils # Man Lymphocytes # (Manual) Monocytes # (Manual) PT INR D-Dimer POC ABG pH POC ABG pCO2 POC ABG pO2 Sodium Potassium Chloride Carbon Dioxide BUN 71 H Creatinine 2.9 H Glucose POC Glucose Lactic Acid Calcium 7.6 L Total Bilirubin AST ALT Total Creatine Kinase CK-MB (CK-2) CK-MB (CK-2) Rel Index Troponin T C-Reactive Protein NT-Pro-B Natriuret Pep > 95650 H Total Protein 6.1 L Albumin 2.4 L LDL Cholesterol Direct Urine WBC (Auto) 08/28/18 08/28/18 08/28/18 04:38 04:49 04:49 WBC RBC 2.65 L Hgb 8.3 L Hct 25.3 L MCV 96 H RDW 17.3 H Plt Count 83 L Seg Neuts % (Manual) Lymphocytes % (Manual) Monocytes % (Manual) Nucleated RBC % Seg Neutrophils # Man Lymphocytes # (Manual) Monocytes # (Manual) PT INR D-Dimer POC ABG pH POC ABG pCO2 POC ABG pO2 112 H Sodium Potassium Chloride Carbon Dioxide BUN Creatinine Glucose POC Glucose Lactic Acid Calcium Total Bilirubin AST ALT Total Creatine Kinase CK-MB (CK-2) CK-MB (CK-2) Rel Index Troponin T C-Reactive Protein NT-Pro-B Natriuret Pep > 20608 H Total Protein Albumin LDL Cholesterol Direct Urine WBC (Auto) 08/28/18 08/28/18 08/29/18 04:49 14:24 00:11 WBC RBC Hgb Hct MCV RDW Plt Count Seg Neuts % (Manual) Lymphocytes % (Manual) Monocytes % (Manual) Nucleated RBC % Seg Neutrophils # Man Lymphocytes # (Manual) Monocytes # (Manual) PT INR D-Dimer POC ABG pH 7.278 L POC ABG pCO2 57.9 H POC ABG pO2 79 L Sodium Potassium Chloride Carbon Dioxide BUN 69 H Creatinine 2.4 H Glucose POC Glucose 171 H Lactic Acid Calcium 7.7 L Total Bilirubin AST ALT Total Creatine Kinase CK-MB (CK-2) CK-MB (CK-2) Rel Index Troponin T C-Reactive Protein NT-Pro-B Natriuret Pep Total Protein 5.4 L Albumin 2.2 L LDL Cholesterol Direct Urine WBC (Auto) 08/29/18 08/29/18 08/29/18 04:39 05:35 05:35 WBC 13.6 H RBC 3.09 L Hgb 9.4 L Hct 29.5 L MCV 96 H RDW 17.9 H Plt Count 127 L Seg Neuts % (Manual) Lymphocytes % (Manual) Monocytes % (Manual) Nucleated RBC % Seg Neutrophils # Man Lymphocytes # (Manual) Monocytes # (Manual) PT INR D-Dimer POC ABG pH 7.312 L POC ABG pCO2 57.6 H POC ABG pO2 79 L Sodium Potassium Chloride Carbon Dioxide BUN 42 H Creatinine 1.9 H Glucose 107 H POC Glucose Lactic Acid Calcium Total Bilirubin AST ALT Total Creatine Kinase CK-MB (CK-2) CK-MB (CK-2) Rel Index Troponin T C-Reactive Protein NT-Pro-B Natriuret Pep Total Protein Albumin LDL Cholesterol Direct Urine WBC (Auto) 08/29/18 08/29/18 08/29/18 05:48 11:37 15:32 WBC RBC Hgb Hct MCV RDW Plt Count Seg Neuts % (Manual) Lymphocytes % (Manual) Monocytes % (Manual) Nucleated RBC % Seg Neutrophils # Man Lymphocytes # (Manual) Monocytes # (Manual) PT INR D-Dimer POC ABG pH POC ABG pCO2 47.0 H POC ABG pO2 78 L Sodium Potassium Chloride Carbon Dioxide BUN Creatinine Glucose POC Glucose 114 H 116 H Lactic Acid Calcium Total Bilirubin AST ALT Total Creatine Kinase CK-MB (CK-2) CK-MB (CK-2) Rel Index Troponin T C-Reactive Protein NT-Pro-B Natriuret Pep Total Protein Albumin LDL Cholesterol Direct Urine WBC (Auto) 08/29/18 08/30/18 08/30/18 17:28 00:17 04:41 WBC RBC Hgb Hct MCV RDW Plt Count Seg Neuts % (Manual) Lymphocytes % (Manual) Monocytes % (Manual) Nucleated RBC % Seg Neutrophils # Man Lymphocytes # (Manual) Monocytes # (Manual) PT INR D-Dimer POC ABG pH POC ABG pCO2 48.1 H POC ABG pO2 Sodium Potassium Chloride Carbon Dioxide BUN Creatinine Glucose POC Glucose 174 H 132 H Lactic Acid Calcium Total Bilirubin AST ALT Total Creatine Kinase CK-MB (CK-2) CK-MB (CK-2) Rel Index Troponin T C-Reactive Protein NT-Pro-B Natriuret Pep Total Protein Albumin LDL Cholesterol Direct Urine WBC (Auto) 08/30/18 05:17 WBC RBC Hgb Hct MCV RDW Plt Count Seg Neuts % (Manual) Lymphocytes % (Manual) Monocytes % (Manual) Nucleated RBC % Seg Neutrophils # Man Lymphocytes # (Manual) Monocytes # (Manual) PT INR D-Dimer POC ABG pH POC ABG pCO2 POC ABG pO2 Sodium Potassium Chloride Carbon Dioxide BUN Creatinine Glucose POC Glucose 141 H Lactic Acid Calcium Total Bilirubin AST ALT Total Creatine Kinase CK-MB (CK-2) CK-MB (CK-2) Rel Index Troponin T C-Reactive Protein NT-Pro-B Natriuret Pep Total Protein Albumin LDL Cholesterol Direct Urine WBC (Auto) Chest x-ray: pending Allied health notes reviewed: nursing
--- NOTE | 2018-08-30 06:41 | Progress Note ---
Assessment and Plan s/p Cardiopulmonary arrest with ROSC Acute on chronic hypoxemic respiratory failure on MVS Lactic acidosis Acute metabolic/respiratory acidosis Acute on chronic renal failure (multifactorial) Sepsis probably secondary to aspiration PNA AE-COPD Acute metabolic-toxic encephalopathy Morbid obesity NSTEMI- probably type 2 ischemia Type 2 DM h/o Liver disease h/o Colon CA Hyperkalemia LEFT TMJ JOINT DISLOCATION-POA - hold tube feeds - extubate after 2-3 hours - scheduled BIPAP qhs with prn daytime use post extubation - continue HD/UF for toxin and volume clearance - Dopplers negative but D-dimer elevated; will get VQ post extubation - repeat CXR prn at this point - continue brovana and pulmicort for severe COPD history / exacerbation (reduced JENELLE frequency) - continue daily SATs and SBTs as tolerated (titrate sedation for RASS 0 to -1) - s/p EEG - neurology evaluation ongoing - Will need maxillo facial surgery for evaluation of TMJ dislocation - continue enteral nutrition with aspiration precautions...HOB >40 - continue Reglan - continue lung protective strategies - VAP bundle addressed - continue supplemental oxygen to keep O2 sats >/= 88-90% - continue restrictive oxygen therapy acutely - continue bronchodilators with pulmonary hygiene per RT - continue systemic steroids with slow taper - continue accuchecks with glycemic control per SSI for target blood glucose <180mg/dL - Agitation management - Prevention of delirium, maintenance of sleep-wake cycle - Antibiotics per ID - MSSA pneumonia and contact precautions stopped - Avoid nephrotoxic agents, adjust all antibiotics and medications for CrCL and GFR - VTE and Stress ulcer prophylaxis( Heparin/Famotidine) - Madison catheter in this critically ill patient with acute on chronic renal failure, requiring strict intake and output monitoring (Will assess daily, the need for ongoing Madison catheter) - continue other care per attending / other consultants .... care plan discussed at length with his in room Discussed in ICU-IDT rounds CONDITION: CRITICAL PROGNOSIS: GUARDED CODE STATUS: FULL CODE The high probability of a clinically significant, sudden or life-threatening deterioration of the [respiratory, cardiovascular, renal, gastrointestinal, neurology] system(s) required my full and direct attention, intervention and personal management. The aggregate critical care time was [35] minutes without overlap. Time includes spent on; [x] Data Review and interpretation [x] Patient assessment and monitoring of vital signs [x] Documentation [x] Medication orders and management Subjective Date of service: 08/30/18 Principal diagnosis: s/p cardiac arrest; severe sepsis; acute hypoxemic- hypercapnic resp failure Interval history: Patient is seen today for: cardiopulmonary arrest; severe sepsis; acute hypoxemic-hypercapnic respiratory failure on MVS; edgar on ckd Seen and examined at bedside; 24hour events reviewed; nursing and respiratory care staff consulted; no adverse overnight events reported to me; resting peacefully in bed; A&O; tolerating SBT very well; No N/V/F/C Objective Vital Signs - 12hr 08/29/18 08/29/18 08/29/18 18:46 19:00 19:16 Temperature Pulse Rate 76 72 71 Pulse Rate [ Anterior Bilateral Throughout] Respiratory 10 L 14 14 Rate Respiratory Rate [Anterior Bilateral Throughout] Blood Pressure 181/61 181/61 O2 Sat by Pulse 96 95 95 Oximetry 08/29/18 08/29/18 08/29/18 19:20 19:30 19:46 Temperature Pulse Rate 73 75 73 Pulse Rate [ Anterior Bilateral Throughout] Respiratory 14 13 13 Rate Respiratory Rate [Anterior Bilateral Throughout] Blood Pressure 181/61 176/56 173/56 O2 Sat by Pulse 98 95 98 Oximetry 08/29/18 08/29/18 08/29/18 19:58 20:00 20:11 Temperature 97.1 F L Pulse Rate 73 79 Pulse Rate [ 80 Anterior Bilateral Throughout] Respiratory 13 Rate Respiratory 12 Rate [Anterior Bilateral Throughout] Blood Pressure 175/56 173/56 O2 Sat by Pulse 97 96 Oximetry 08/29/18 08/29/18 08/29/18 20:13 20:16 20:28 Temperature Pulse Rate 70 76 Pulse Rate [ 74 Anterior Bilateral Throughout] Respiratory 12 15 Rate Respiratory 13 Rate [Anterior Bilateral Throughout] Blood Pressure 175/56 175/56 O2 Sat by Pulse 97 95 Oximetry 08/29/18 08/29/18 08/29/18 20:30 20:36 20:40 Temperature Pulse Rate 74 83 74 Pulse Rate [ Anterior Bilateral Throughout] Respiratory 16 14 14 Rate Respiratory Rate [Anterior Bilateral Throughout] Blood Pressure 185/65 185/65 O2 Sat by Pulse 91 97 98 Oximetry 08/29/18 08/29/18 08/29/18 20:46 21:00 21:16 Temperature Pulse Rate 83 79 85 Pulse Rate [ Anterior Bilateral Throughout] Respiratory 15 15 19 Rate Respiratory Rate [Anterior Bilateral Throughout] Blood Pressure 175/56 175/56 174/57 O2 Sat by Pulse 97 97 98 Oximetry 08/29/18 08/29/18 08/29/18 21:30 21:46 22:00 Temperature Pulse Rate 77 79 76 Pulse Rate [ Anterior Bilateral Throughout] Respiratory 15 14 14 Rate Respiratory Rate [Anterior Bilateral Throughout] Blood Pressure 164/50 164/50 165/55 O2 Sat by Pulse 97 98 98 Oximetry 08/29/18 08/29/18 08/29/18 22:05 22:16 22:30 Temperature Pulse Rate 79 75 Pulse Rate [ Anterior Bilateral Throughout] Respiratory 14 17 15 Rate Respiratory Rate [Anterior Bilateral Throughout] Blood Pressure 165/55 169/55 O2 Sat by Pulse 98 97 98 Oximetry 08/29/18 08/29/18 08/29/18 22:46 23:00 23:16 Temperature Pulse Rate 77 73 76 Pulse Rate [ Anterior Bilateral Throughout] Respiratory 15 13 15 Rate Respiratory Rate [Anterior Bilateral Throughout] Blood Pressure 169/55 153/48 153/48 O2 Sat by Pulse 97 98 98 Oximetry 08/29/18 08/29/18 08/30/18 23:30 23:46 00:00 Temperature Pulse Rate 76 75 76 Pulse Rate [ Anterior Bilateral Throughout] Respiratory 16 15 12 Rate Respiratory Rate [Anterior Bilateral Throughout] Blood Pressure 167/53 167/53 169/55 O2 Sat by Pulse 97 98 96 Oximetry 08/30/18 08/30/18 08/30/18 00:16 00:20 00:30 Temperature 98.0 F Pulse Rate 75 76 Pulse Rate [ Anterior Bilateral Throughout] Respiratory 14 16 Rate Respiratory Rate [Anterior Bilateral Throughout] Blood Pressure 169/55 171/57 O2 Sat by Pulse 98 97 Oximetry 08/30/18 08/30/18 08/30/18 00:46 00:52 01:00 Temperature Pulse Rate 76 76 76 Pulse Rate [ Anterior Bilateral Throughout] Respiratory 19 18 Rate Respiratory Rate [Anterior Bilateral Throughout] Blood Pressure 171/57 171/57 169/55 O2 Sat by Pulse 92 97 95 Oximetry 08/30/18 08/30/18 08/30/18 01:16 01:30 01:40 Temperature Pulse Rate 74 73 Pulse Rate [ Anterior Bilateral Throughout] Respiratory 17 18 18 Rate Respiratory Rate [Anterior Bilateral Throughout] Blood Pressure 210/76 210/76 O2 Sat by Pulse 97 96 Oximetry 08/30/18 08/30/18 08/30/18 01:46 02:00 02:10 Temperature Pulse Rate 74 69 Pulse Rate [ Anterior Bilateral Throughout] Respiratory 14 15 12 Rate Respiratory Rate [Anterior Bilateral Throughout] Blood Pressure 174/52 164/52 O2 Sat by Pulse 96 95 Oximetry 08/30/18 08/30/18 08/30/18 02:16 02:21 02:30 Temperature Pulse Rate 65 73 67 Pulse Rate [ Anterior Bilateral Throughout] Respiratory 16 14 12 Rate Respiratory Rate [Anterior Bilateral Throughout] Blood Pressure 160/46 160/46 O2 Sat by Pulse 97 98 95 Oximetry 08/30/18 08/30/18 08/30/18 02:46 03:00 03:16 Temperature Pulse Rate 68 70 75 Pulse Rate [ Anterior Bilateral Throughout] Respiratory 17 15 14 Rate Respiratory Rate [Anterior Bilateral Throughout] Blood Pressure 159/52 159/52 181/58 O2 Sat by Pulse 96 93 94 Oximetry 08/30/18 08/30/18 08/30/18 03:30 03:46 04:00 Temperature Pulse Rate 71 70 71 Pulse Rate [ Anterior Bilateral Throughout] Respiratory 15 15 17 Rate Respiratory Rate [Anterior Bilateral Throughout] Blood Pressure 181/58 165/51 180/52 O2 Sat by Pulse 94 93 94 Oximetry 08/30/18 08/30/18 08/30/18 04:16 04:20 04:25 Temperature 98.0 F Pulse Rate 81 75 74 Pulse Rate [ Anterior Bilateral Throughout] Respiratory 16 14 Rate Respiratory Rate [Anterior Bilateral Throughout] Blood Pressure 180/52 196/68 O2 Sat by Pulse 91 97 98 Oximetry 08/30/18 08/30/18 08/30/18 04:30 04:46 05:00 Temperature Pulse Rate 74 73 70 Pulse Rate [ Anterior Bilateral Throughout] Respiratory 15 16 16 Rate Respiratory Rate [Anterior Bilateral Throughout] Blood Pressure 180/52 175/61 175/61 O2 Sat by Pulse 99 99 Oximetry 08/30/18 08/30/18 08/30/18 05:16 05:30 05:46 Temperature Pulse Rate 72 66 67 Pulse Rate [ Anterior Bilateral Throughout] Respiratory 14 14 12 Rate Respiratory Rate [Anterior Bilateral Throughout] Blood Pressure 172/56 172/56 169/56 O2 Sat by Pulse 99 99 99 Oximetry 08/30/18 05:48 Temperature Pulse Rate 67 Pulse Rate [ Anterior Bilateral Throughout] Respiratory 14 Rate Respiratory Rate [Anterior Bilateral Throughout] Blood Pressure O2 Sat by Pulse 98 Oximetry Constitutional: alert, appears uncomfortable, other (morbidly obese, orally intubated, 7.5ETT at 24cm at the lip, no dys-synchrony) Eyes: non-icteric ENT: oropharynx moist, other (orally intubated, ETT 8, 24cm at the lip, OGT in place) Neck: supple, no JVD, other (short neck) Effort: mildly labored Ascultation: Bilateral: diminished breath sounds, rhonchi (improved overall) Percussion: Bilateral: not dull Cardiovascular: regular rate and rhythm, other (S1,S2, no murmurs, no gallops or rubs) Gastrointestinal: normoactive bowel sounds, soft, non-tender, non-distended, other (Madison catheter in place, minimal urine tea colored) Integumentary: normal Extremities: no cyanosis, no edema, pink and warm, pulses normal, no ischemia or petechiae Neurologic: normal mental status, non-focal exam (grossly), pupils equal and round, CN II-XII normal Psychiatric: mood appropriate, affect normal CBC and BMP: 09/02/18 05:16 09/02/18 05:16 ABG, PT/INR, D-dimer: ABG POC ABG pH 7.384 (7.35-7.45) 08/30/18 04:41 POC ABG pCO2 48.1 (35-45) H 08/30/18 04:41 POC ABG pO2 84 (80-105) 08/30/18 04:41 POC ABG HCO3 28.7 (22-26 mml/L) 08/30/18 04:41 POC ABG Total CO2 30 (23-27mmol/L) 08/30/18 04:41 POC ABG O2 Sat 96 08/30/18 04:41 PT/INR, D-dimer PT 15.6 Sec. (12.2-14.9) H 08/25/18 16:43 INR 1.27 (0.87-1.13) H 08/25/18 16:43 1978.25 ng/mlDDU (0-234) H 08/24/18 13:41 Abnormal lab findings: Abnormal Labs 08/21/18 08/21/18 08/21/18 04:42 04:42 04:42 WBC 19.1 H RBC 2.49 L Hgb 7.7 L Hct 24.5 L MCV 98 H RDW 17.7 H Plt Count Seg Neuts % (Manual) 84.0 H Lymphocytes % (Manual) 7.0 L Monocytes % (Manual) 9.0 H Nucleated RBC % Seg Neutrophils # Man 16.0 H Lymphocytes # (Manual) Monocytes # (Manual) 1.7 H PT 20.1 H INR 1.76 H D-Dimer POC ABG pH POC ABG pCO2 POC ABG pO2 Sodium Potassium Chloride Carbon Dioxide BUN Creatinine Glucose POC Glucose Lactic Acid Calcium Total Bilirubin AST ALT Total Creatine Kinase CK-MB (CK-2) CK-MB (CK-2) Rel Index Troponin T 0.032 H C-Reactive Protein NT-Pro-B Natriuret Pep Total Protein Albumin LDL Cholesterol Direct 44 L Urine WBC (Auto) 08/21/18 08/21/18 08/21/18 04:42 04:42 04:42 WBC RBC Hgb Hct MCV RDW Plt Count Seg Neuts % (Manual) Lymphocytes % (Manual) Monocytes % (Manual) Nucleated RBC % Seg Neutrophils # Man Lymphocytes # (Manual) Monocytes # (Manual) PT INR D-Dimer POC ABG pH POC ABG pCO2 POC ABG pO2 Sodium Potassium 6.0 H Chloride Carbon Dioxide 15 L BUN 57 H Creatinine 4.3 H Glucose 111 H POC Glucose Lactic Acid 5.80 H* Calcium Total Bilirubin 1.80 H AST 212 H ALT 94 H Total Creatine Kinase CK-MB (CK-2) CK-MB (CK-2) Rel Index Troponin T C-Reactive Protein NT-Pro-B Natriuret Pep 93732 H Total Protein Albumin 3.2 L LDL Cholesterol Direct Urine WBC (Auto) 08/21/18 08/21/18 08/21/18 05:08 05:58 05:58 WBC RBC Hgb Hct MCV RDW Plt Count Seg Neuts % (Manual) Lymphocytes % (Manual) Monocytes % (Manual) Nucleated RBC % Seg Neutrophils # Man Lymphocytes # (Manual) Monocytes # (Manual) PT INR D-Dimer POC ABG pH 7.164 L POC ABG pCO2 46.3 H POC ABG pO2 229 H Sodium Potassium Chloride Carbon Dioxide BUN Creatinine Glucose POC Glucose Lactic Acid 5.10 H* Calcium Total Bilirubin AST ALT Total Creatine Kinase CK-MB (CK-2) CK-MB (CK-2) Rel Index Troponin T 0.035 H C-Reactive Protein NT-Pro-B Natriuret Pep Total Protein Albumin LDL Cholesterol Direct Urine WBC (Auto) 08/21/18 08/21/18 08/21/18 06:45 06:45 06:53 WBC RBC Hgb Hct MCV RDW Plt Count Seg Neuts % (Manual) Lymphocytes % (Manual) Monocytes % (Manual) Nucleated RBC % Seg Neutrophils # Man Lymphocytes # (Manual) Monocytes # (Manual) PT INR D-Dimer POC ABG pH 7.160 L POC ABG pCO2 46.8 H POC ABG pO2 Sodium Potassium Chloride Carbon Dioxide BUN Creatinine Glucose POC Glucose Lactic Acid 4.70 H* Calcium Total Bilirubin AST ALT Total Creatine Kinase 234 H CK-MB (CK-2) 9.1 H CK-MB (CK-2) Rel Index Troponin T 0.032 H C-Reactive Protein NT-Pro-B Natriuret Pep Total Protein Albumin LDL Cholesterol Direct Urine WBC (Auto) 08/21/18 08/21/18 08/21/18 10:43 10:43 10:45 WBC RBC Hgb Hct MCV RDW Plt Count Seg Neuts % (Manual) Lymphocytes % (Manual) Monocytes % (Manual) Nucleated RBC % Seg Neutrophils # Man Lymphocytes # (Manual) Monocytes # (Manual) PT INR D-Dimer POC ABG pH POC ABG pCO2 POC ABG pO2 Sodium Potassium Chloride Carbon Dioxide 17 L BUN 59 H Creatinine 4.2 H Glucose POC Glucose Lactic Acid 3.70 H* Calcium Total Bilirubin AST ALT Total Creatine Kinase 222 H CK-MB (CK-2) 9.2 H CK-MB (CK-2) Rel Index 4.1 H Troponin T 0.044 H D C-Reactive Protein NT-Pro-B Natriuret Pep Total Protein Albumin LDL Cholesterol Direct Urine WBC (Auto) 08/21/18 08/21/18 08/21/18 11:38 12:33 15:03 WBC RBC Hgb Hct MCV RDW Plt Count Seg Neuts % (Manual) Lymphocytes % (Manual) Monocytes % (Manual) Nucleated RBC % Seg Neutrophils # Man Lymphocytes # (Manual) Monocytes # (Manual) PT INR D-Dimer POC ABG pH 7.250 L POC ABG pCO2 POC ABG pO2 121 H Sodium Potassium Chloride Carbon Dioxide BUN Creatinine Glucose POC Glucose 129 H Lactic Acid Calcium Total Bilirubin AST ALT Total Creatine Kinase CK-MB (CK-2) CK-MB (CK-2) Rel Index Troponin T C-Reactive Protein NT-Pro-B Natriuret Pep Total Protein Albumin LDL Cholesterol Direct Urine WBC (Auto) 13.0 H 08/21/18 08/22/18 08/22/18 15:47 00:01 04:27 WBC RBC Hgb Hct MCV RDW Plt Count Seg Neuts % (Manual) Lymphocytes % (Manual) Monocytes % (Manual) Nucleated RBC % Seg Neutrophils # Man Lymphocytes # (Manual) Monocytes # (Manual) PT INR D-Dimer POC ABG pH 7.457 H POC ABG pCO2 POC ABG pO2 117 H Sodium Potassium Chloride Carbon Dioxide BUN Creatinine Glucose POC Glucose 211 H Lactic Acid 2.70 H* Calcium Total Bilirubin AST ALT Total Creatine Kinase CK-MB (CK-2) CK-MB (CK-2) Rel Index Troponin T C-Reactive Protein NT-Pro-B Natriuret Pep Total Protein Albumin LDL Cholesterol Direct Urine WBC (Auto) 08/22/18 08/22/18 08/22/18 05:46 06:10 06:10 WBC RBC 2.27 L Hgb 7.0 L Hct 21.2 L MCV RDW 16.8 H Plt Count 129 L Seg Neuts % (Manual) 95.0 H Lymphocytes % (Manual) 1.0 L Monocytes % (Manual) Nucleated RBC % 1.0 H Seg Neutrophils # Man 7.8 H Lymphocytes # (Manual) 0.1 L Monocytes # (Manual) PT INR D-Dimer POC ABG pH POC ABG pCO2 POC ABG pO2 Sodium Potassium Chloride Carbon Dioxide 20 L BUN 63 H Creatinine 3.9 H Glucose 205 H POC Glucose 223 H Lactic Acid Calcium Total Bilirubin AST ALT Total Creatine Kinase CK-MB (CK-2) CK-MB (CK-2) Rel Index Troponin T C-Reactive Protein NT-Pro-B Natriuret Pep Total Protein Albumin LDL Cholesterol Direct Urine WBC (Auto) 08/22/18 08/22/18 08/22/18 06:10 12:57 16:21 WBC RBC Hgb Hct MCV RDW Plt Count Seg Neuts % (Manual) Lymphocytes % (Manual) Monocytes % (Manual) Nucleated RBC % Seg Neutrophils # Man Lymphocytes # (Manual) Monocytes # (Manual) PT INR D-Dimer POC ABG pH 7.477 H POC ABG pCO2 POC ABG pO2 Sodium Potassium Chloride Carbon Dioxide BUN Creatinine Glucose POC Glucose 166 H Lactic Acid Calcium Total Bilirubin AST ALT Total Creatine Kinase CK-MB (CK-2) CK-MB (CK-2) Rel Index Troponin T C-Reactive Protein 23.60 H NT-Pro-B Natriuret Pep Total Protein Albumin LDL Cholesterol Direct Urine WBC (Auto) 08/22/18 08/22/18 08/23/18 17:41 23:42 04:38 WBC RBC Hgb Hct MCV RDW Plt Count Seg Neuts % (Manual) Lymphocytes % (Manual) Monocytes % (Manual) Nucleated RBC % Seg Neutrophils # Man Lymphocytes # (Manual) Monocytes # (Manual) PT INR D-Dimer POC ABG pH 7.249 L POC ABG pCO2 53.5 H POC ABG pO2 73 L Sodium Potassium Chloride Carbon Dioxide BUN Creatinine Glucose POC Glucose 131 H 168 H Lactic Acid Calcium Total Bilirubin AST ALT Total Creatine Kinase CK-MB (CK-2) CK-MB (CK-2) Rel Index Troponin T C-Reactive Protein NT-Pro-B Natriuret Pep Total Protein Albumin LDL Cholesterol Direct Urine WBC (Auto) 08/23/18 08/23/18 08/23/18 04:52 04:52 04:52 WBC RBC 2.39 L Hgb 7.5 L Hct 22.8 L MCV 95 H RDW 17.6 H Plt Count Seg Neuts % (Manual) Lymphocytes % (Manual) Monocytes % (Manual) Nucleated RBC % Seg Neutrophils # Man Lymphocytes # (Manual) Monocytes # (Manual) PT INR D-Dimer POC ABG pH POC ABG pCO2 POC ABG pO2 Sodium Potassium 5.6 H 5.6 H Chloride Carbon Dioxide 21 L BUN 71 H 72 H Creatinine 4.1 H 4.0 H Glucose 141 H 140 H POC Glucose Lactic Acid Calcium 8.3 L 8.2 L Total Bilirubin AST 247 H ALT 220 H Total Creatine Kinase CK-MB (CK-2) CK-MB (CK-2) Rel Index Troponin T C-Reactive Protein NT-Pro-B Natriuret Pep Total Protein Albumin 2.8 L LDL Cholesterol Direct Urine WBC (Auto) 08/23/18 08/23/18 08/23/18 05:50 08:38 12:21 WBC RBC Hgb Hct MCV RDW Plt Count Seg Neuts % (Manual) Lymphocytes % (Manual) Monocytes % (Manual) Nucleated RBC % Seg Neutrophils # Man Lymphocytes # (Manual) Monocytes # (Manual) PT INR D-Dimer POC ABG pH POC ABG pCO2 POC ABG pO2 Sodium Potassium Chloride Carbon Dioxide BUN Creatinine Glucose POC Glucose 160 H 177 H Lactic Acid Calcium Total Bilirubin AST ALT Total Creatine Kinase CK-MB (CK-2) CK-MB (CK-2) Rel Index Troponin T C-Reactive Protein NT-Pro-B Natriuret Pep 83873 H Total Protein Albumin LDL Cholesterol Direct Urine WBC (Auto) 08/23/18 08/23/18 08/23/18 12:36 14:24 18:05 WBC RBC Hgb Hct MCV RDW Plt Count Seg Neuts % (Manual) Lymphocytes % (Manual) Monocytes % (Manual) Nucleated RBC % Seg Neutrophils # Man Lymphocytes # (Manual) Monocytes # (Manual) PT INR D-Dimer POC ABG pH 7.337 L POC ABG pCO2 POC ABG pO2 145 H Sodium 136 L Potassium 5.2 H Chloride Carbon Dioxide BUN 76 H Creatinine 4.2 H Glucose 158 H POC Glucose 169 H Lactic Acid Calcium 8.1 L Total Bilirubin AST ALT Total Creatine Kinase CK-MB (CK-2) CK-MB (CK-2) Rel Index Troponin T C-Reactive Protein NT-Pro-B Natriuret Pep Total Protein Albumin LDL Cholesterol Direct Urine WBC (Auto) 08/23/18 08/23/18 08/24/18 22:43 23:42 05:16 WBC RBC Hgb Hct MCV RDW Plt Count Seg Neuts % (Manual) Lymphocytes % (Manual) Monocytes % (Manual) Nucleated RBC % Seg Neutrophils # Man Lymphocytes # (Manual) Monocytes # (Manual) PT INR D-Dimer POC ABG pH POC ABG pCO2 POC ABG pO2 Sodium 136 L Potassium 5.3 H 5.2 H Chloride 97.9 L Carbon Dioxide BUN 80 H 86 H Creatinine 4.0 H 4.3 H Glucose 164 H 202 H POC Glucose 183 H Lactic Acid Calcium 7.9 L Total Bilirubin AST ALT Total Creatine Kinase CK-MB (CK-2) CK-MB (CK-2) Rel Index Troponin T C-Reactive Protein NT-Pro-B Natriuret Pep Total Protein Albumin LDL Cholesterol Direct Urine WBC (Auto) 08/24/18 08/24/18 08/24/18 05:21 05:29 10:10 WBC RBC 2.47 L Hgb 7.5 L Hct 23.3 L MCV RDW 17.5 H Plt Count 118 L Seg Neuts % (Manual) 92.0 H Lymphocytes % (Manual) 2.0 L Monocytes % (Manual) Nucleated RBC % Seg Neutrophils # Man 8.8 H Lymphocytes # (Manual) 0.2 L Monocytes # (Manual) PT INR D-Dimer POC ABG pH 7.243 L POC ABG pCO2 56.8 H POC ABG pO2 Sodium Potassium Chloride Carbon Dioxide BUN Creatinine Glucose POC Glucose 209 H Lactic Acid Calcium Total Bilirubin AST ALT Total Creatine Kinase CK-MB (CK-2) CK-MB (CK-2) Rel Index Troponin T C-Reactive Protein NT-Pro-B Natriuret Pep Total Protein Albumin LDL Cholesterol Direct Urine WBC (Auto) 08/24/18 08/24/18 08/24/18 10:10 11:19 13:41 WBC RBC Hgb Hct MCV RDW Plt Count Seg Neuts % (Manual) Lymphocytes % (Manual) Monocytes % (Manual) Nucleated RBC % Seg Neutrophils # Man Lymphocytes # (Manual) Monocytes # (Manual) PT INR D-Dimer 1978.25 H POC ABG pH POC ABG pCO2 POC ABG pO2 Sodium Potassium Chloride Carbon Dioxide BUN Creatinine Glucose POC Glucose 212 H Lactic Acid Calcium Total Bilirubin AST ALT Total Creatine Kinase CK-MB (CK-2) CK-MB (CK-2) Rel Index Troponin T C-Reactive Protein NT-Pro-B Natriuret Pep 95545 H Total Protein Albumin LDL Cholesterol Direct Urine WBC (Auto) 08/24/18 08/24/18 08/24/18 13:41 14:27 17:23 WBC RBC Hgb Hct MCV RDW Plt Count Seg Neuts % (Manual) Lymphocytes % (Manual) Monocytes % (Manual) Nucleated RBC % Seg Neutrophils # Man Lymphocytes # (Manual) Monocytes # (Manual) PT INR D-Dimer POC ABG pH POC ABG pCO2 POC ABG pO2 Sodium 136 L Potassium 5.1 H Chloride 97.8 L Carbon Dioxide BUN 90 H Creatinine 4.1 H Glucose 157 H POC Glucose 155 H Lactic Acid Calcium 8.0 L Total Bilirubin AST ALT Total Creatine Kinase CK-MB (CK-2) CK-MB (CK-2) Rel Index Troponin T C-Reactive Protein 9.00 H NT-Pro-B Natriuret Pep Total Protein Albumin LDL Cholesterol Direct Urine WBC (Auto) 08/25/18 08/25/18 08/25/18 00:38 05:22 05:57 WBC RBC Hgb Hct MCV RDW Plt Count Seg Neuts % (Manual) Lymphocytes % (Manual) Monocytes % (Manual) Nucleated RBC % Seg Neutrophils # Man Lymphocytes # (Manual) Monocytes # (Manual) PT INR D-Dimer POC ABG pH 7.238 L POC ABG pCO2 58.2 H POC ABG pO2 Sodium Potassium 5.4 H Chloride Carbon Dioxide BUN 98 H Creatinine 4.3 H Glucose 217 H POC Glucose 176 H Lactic Acid Calcium 8.3 L Total Bilirubin AST ALT Total Creatine Kinase CK-MB (CK-2) CK-MB (CK-2) Rel Index Troponin T C-Reactive Protein NT-Pro-B Natriuret Pep 83176 H Total Protein Albumin LDL Cholesterol Direct Urine WBC (Auto) 08/25/18 08/25/18 08/25/18 06:56 08:59 11:38 WBC RBC Hgb Hct MCV RDW Plt Count Seg Neuts % (Manual) Lymphocytes % (Manual) Monocytes % (Manual) Nucleated RBC % Seg Neutrophils # Man Lymphocytes # (Manual) Monocytes # (Manual) PT INR D-Dimer POC ABG pH 7.348 L POC ABG pCO2 48.6 H POC ABG pO2 Sodium Potassium Chloride Carbon Dioxide BUN Creatinine Glucose POC Glucose 247 H 235 H Lactic Acid Calcium Total Bilirubin AST ALT Total Creatine Kinase CK-MB (CK-2) CK-MB (CK-2) Rel Index Troponin T C-Reactive Protein NT-Pro-B Natriuret Pep Total Protein Albumin LDL Cholesterol Direct Urine WBC (Auto) 08/25/18 08/25/18 08/25/18 12:29 16:43 16:43 WBC 14.7 H RBC 2.90 L Hgb 8.9 L Hct 27.4 L MCV 95 H RDW 17.3 H Plt Count 119 L Seg Neuts % (Manual) 94.0 H Lymphocytes % (Manual) 2.0 L Monocytes % (Manual) Nucleated RBC % Seg Neutrophils # Man 13.8 H Lymphocytes # (Manual) 0.3 L Monocytes # (Manual) PT 15.6 H INR 1.27 H D-Dimer POC ABG pH POC ABG pCO2 POC ABG pO2 Sodium Potassium Chloride Carbon Dioxide BUN Creatinine Glucose POC Glucose 237 H Lactic Acid Calcium Total Bilirubin AST ALT Total Creatine Kinase CK-MB (CK-2) CK-MB (CK-2) Rel Index Troponin T C-Reactive Protein NT-Pro-B Natriuret Pep Total Protein Albumin LDL Cholesterol Direct Urine WBC (Auto) 08/25/18 08/26/18 08/26/18 17:22 00:16 04:56 WBC RBC Hgb Hct MCV RDW Plt Count Seg Neuts % (Manual) Lymphocytes % (Manual) Monocytes % (Manual) Nucleated RBC % Seg Neutrophils # Man Lymphocytes # (Manual) Monocytes # (Manual) PT INR D-Dimer POC ABG pH POC ABG pCO2 45.2 H POC ABG pO2 Sodium Potassium Chloride Carbon Dioxide BUN Creatinine Glucose POC Glucose 200 H 180 H Lactic Acid Calcium Total Bilirubin AST ALT Total Creatine Kinase CK-MB (CK-2) CK-MB (CK-2) Rel Index Troponin T C-Reactive Protein NT-Pro-B Natriuret Pep Total Protein Albumin LDL Cholesterol Direct Urine WBC (Auto) 08/26/18 08/26/18 08/26/18 05:53 06:20 08:48 WBC RBC Hgb Hct MCV RDW Plt Count Seg Neuts % (Manual) Lymphocytes % (Manual) Monocytes % (Manual) Nucleated RBC % Seg Neutrophils # Man Lymphocytes # (Manual) Monocytes # (Manual) PT INR D-Dimer POC ABG pH POC ABG pCO2 POC ABG pO2 Sodium Potassium Chloride Carbon Dioxide BUN 106 H Creatinine 3.9 H Glucose 137 H POC Glucose 131 H 126 H Lactic Acid Calcium 8.1 L Total Bilirubin AST ALT Total Creatine Kinase CK-MB (CK-2) CK-MB (CK-2) Rel Index Troponin T C-Reactive Protein NT-Pro-B Natriuret Pep > 38907 H Total Protein Albumin LDL Cholesterol Direct Urine WBC (Auto) 08/26/18 08/26/18 08/26/18 11:39 17:33 18:02 WBC RBC Hgb Hct MCV RDW Plt Count Seg Neuts % (Manual) Lymphocytes % (Manual) Monocytes % (Manual) Nucleated RBC % Seg Neutrophils # Man Lymphocytes # (Manual) Monocytes # (Manual) PT INR D-Dimer POC ABG pH POC ABG pCO2 POC ABG pO2 58 L Sodium Potassium Chloride Carbon Dioxide BUN Creatinine Glucose POC Glucose 156 H 173 H Lactic Acid Calcium Total Bilirubin AST ALT Total Creatine Kinase CK-MB (CK-2) CK-MB (CK-2) Rel Index Troponin T C-Reactive Protein NT-Pro-B Natriuret Pep Total Protein Albumin LDL Cholesterol Direct Urine WBC (Auto) 08/26/18 08/27/18 08/27/18 23:12 04:59 11:51 WBC RBC Hgb Hct MCV RDW Plt Count Seg Neuts % (Manual) Lymphocytes % (Manual) Monocytes % (Manual) Nucleated RBC % Seg Neutrophils # Man Lymphocytes # (Manual) Monocytes # (Manual) PT INR D-Dimer POC ABG pH 7.563 H POC ABG pCO2 POC ABG pO2 69 L Sodium Potassium Chloride Carbon Dioxide BUN Creatinine Glucose POC Glucose 130 H 107 H Lactic Acid Calcium Total Bilirubin AST ALT Total Creatine Kinase CK-MB (CK-2) CK-MB (CK-2) Rel Index Troponin T C-Reactive Protein NT-Pro-B Natriuret Pep Total Protein Albumin LDL Cholesterol Direct Urine WBC (Auto) 08/27/18 08/27/18 08/27/18 11:58 11:58 11:58 WBC RBC 2.66 L Hgb 8.1 L Hct 24.7 L MCV RDW 16.7 H Plt Count Seg Neuts % (Manual) Lymphocytes % (Manual) Monocytes % (Manual) Nucleated RBC % Seg Neutrophils # Man Lymphocytes # (Manual) Monocytes # (Manual) PT INR D-Dimer POC ABG pH POC ABG pCO2 POC ABG pO2 Sodium Potassium Chloride Carbon Dioxide BUN 71 H Creatinine 2.9 H Glucose POC Glucose Lactic Acid Calcium 7.6 L Total Bilirubin AST ALT Total Creatine Kinase CK-MB (CK-2) CK-MB (CK-2) Rel Index Troponin T C-Reactive Protein NT-Pro-B Natriuret Pep > 61516 H Total Protein 6.1 L Albumin 2.4 L LDL Cholesterol Direct Urine WBC (Auto) 08/28/18 08/28/18 08/28/18 04:38 04:49 04:49 WBC RBC 2.65 L Hgb 8.3 L Hct 25.3 L MCV 96 H RDW 17.3 H Plt Count 83 L Seg Neuts % (Manual) Lymphocytes % (Manual) Monocytes % (Manual) Nucleated RBC % Seg Neutrophils # Man Lymphocytes # (Manual) Monocytes # (Manual) PT INR D-Dimer POC ABG pH POC ABG pCO2 POC ABG pO2 112 H Sodium Potassium Chloride Carbon Dioxide BUN Creatinine Glucose POC Glucose Lactic Acid Calcium Total Bilirubin AST ALT Total Creatine Kinase CK-MB (CK-2) CK-MB (CK-2) Rel Index Troponin T C-Reactive Protein NT-Pro-B Natriuret Pep > 50920 H Total Protein Albumin LDL Cholesterol Direct Urine WBC (Auto) 08/28/18 08/28/18 08/29/18 04:49 14:24 00:11 WBC RBC Hgb Hct MCV RDW Plt Count Seg Neuts % (Manual) Lymphocytes % (Manual) Monocytes % (Manual) Nucleated RBC % Seg Neutrophils # Man Lymphocytes # (Manual) Monocytes # (Manual) PT INR D-Dimer POC ABG pH 7.278 L POC ABG pCO2 57.9 H POC ABG pO2 79 L Sodium Potassium Chloride Carbon Dioxide BUN 69 H Creatinine 2.4 H Glucose POC Glucose 171 H Lactic Acid Calcium 7.7 L Total Bilirubin AST ALT Total Creatine Kinase CK-MB (CK-2) CK-MB (CK-2) Rel Index Troponin T C-Reactive Protein NT-Pro-B Natriuret Pep Total Protein 5.4 L Albumin 2.2 L LDL Cholesterol Direct Urine WBC (Auto) 08/29/18 08/29/18 08/29/18 04:39 05:35 05:35 WBC 13.6 H RBC 3.09 L Hgb 9.4 L Hct 29.5 L MCV 96 H RDW 17.9 H Plt Count 127 L Seg Neuts % (Manual) Lymphocytes % (Manual) Monocytes % (Manual) Nucleated RBC % Seg Neutrophils # Man Lymphocytes # (Manual) Monocytes # (Manual) PT INR D-Dimer POC ABG pH 7.312 L POC ABG pCO2 57.6 H POC ABG pO2 79 L Sodium Potassium Chloride Carbon Dioxide BUN 42 H Creatinine 1.9 H Glucose 107 H POC Glucose Lactic Acid Calcium Total Bilirubin AST ALT Total Creatine Kinase CK-MB (CK-2) CK-MB (CK-2) Rel Index Troponin T C-Reactive Protein NT-Pro-B Natriuret Pep Total Protein Albumin LDL Cholesterol Direct Urine WBC (Auto) 08/29/18 08/29/18 08/29/18 05:48 11:37 15:32 WBC RBC Hgb Hct MCV RDW Plt Count Seg Neuts % (Manual) Lymphocytes % (Manual) Monocytes % (Manual) Nucleated RBC % Seg Neutrophils # Man Lymphocytes # (Manual) Monocytes # (Manual) PT INR D-Dimer POC ABG pH POC ABG pCO2 47.0 H POC ABG pO2 78 L Sodium Potassium Chloride Carbon Dioxide BUN Creatinine Glucose POC Glucose 114 H 116 H Lactic Acid Calcium Total Bilirubin AST ALT Total Creatine Kinase CK-MB (CK-2) CK-MB (CK-2) Rel Index Troponin T C-Reactive Protein NT-Pro-B Natriuret Pep Total Protein Albumin LDL Cholesterol Direct Urine WBC (Auto) 08/29/18 08/30/18 08/30/18 17:28 00:17 04:41 WBC RBC Hgb Hct MCV RDW Plt Count Seg Neuts % (Manual) Lymphocytes % (Manual) Monocytes % (Manual) Nucleated RBC % Seg Neutrophils # Man Lymphocytes # (Manual) Monocytes # (Manual) PT INR D-Dimer POC ABG pH POC ABG pCO2 48.1 H POC ABG pO2 Sodium Potassium Chloride Carbon Dioxide BUN Creatinine Glucose POC Glucose 174 H 132 H Lactic Acid Calcium Total Bilirubin AST ALT Total Creatine Kinase CK-MB (CK-2) CK-MB (CK-2) Rel Index Troponin T C-Reactive Protein NT-Pro-B Natriuret Pep Total Protein Albumin LDL Cholesterol Direct Urine WBC (Auto) 08/30/18 05:17 WBC RBC Hgb Hct MCV RDW Plt Count Seg Neuts % (Manual) Lymphocytes % (Manual) Monocytes % (Manual) Nucleated RBC % Seg Neutrophils # Man Lymphocytes # (Manual) Monocytes # (Manual) PT INR D-Dimer POC ABG pH POC ABG pCO2 POC ABG pO2 Sodium Potassium Chloride Carbon Dioxide BUN Creatinine Glucose POC Glucose 141 H Lactic Acid Calcium Total Bilirubin AST ALT Total Creatine Kinase CK-MB (CK-2) CK-MB (CK-2) Rel Index Troponin T C-Reactive Protein NT-Pro-B Natriuret Pep Total Protein Albumin LDL Cholesterol Direct Urine WBC (Auto) Chest x-ray: image reviewed Allied health notes reviewed: nursing
[2018-08-30 07:01] LABS: Calcium 8.5 mg/dL (8.4-10.2)
[2018-08-30] MEDS: BROVANA NEBU IH SCH ×2 (08:17→19:59)
[2018-08-30] MEDS: PULMICORT IH SCH ×2 (08:17→19:58)
[2018-08-30] MEDS: DUONEB *Not for PRN Use IH SCH ×2 (08:17→19:58)
[2018-08-30] MEDS: SODIUM CHLORIDE FLUSH SYRINGE 10 ML IV SCH ×3 (08:35→22:26)
[2018-08-30] MEDS: ceFAZolin 2 GM in NACL 0.9% 100 ML IV SCH ×2 (08:36→18:37)
--- NOTE | 2018-08-30 08:46 | XRay Report ---
CHEST 1 VIEW INDICATION: pulmonary edema. COMPARISON: 08/28/2018 FINDINGS: Support devices: The endotracheal tube remains in good position. The nasogastric tube is unchanged an d is followed to the mid stomach. Heart: Mild cardiomegaly is stable. Lungs/Pleura: Pulmonary venous congestion has decreased by 25% since the previous exam. Improvement i n trace pleural effusions is also suspected. No consolidation or pneumothorax. Additional findings: None. IMPRESSION: 1. Mild improvement in congestive changes since the exam 2 days ago. Signer Name: Hilario Harris Jr, MD Signed: 08/30/2018 7:41 AM Workstation Name: [id number]
[2018-08-30] MEDS: HEPARIN SUB-Q SCH ×2 (11:12→22:27)
[2018-08-30] MEDS: MIRALAX 3350 PO SCH (11:12)
[2018-08-30] MEDS: DULCOLAX PR SCH (11:12)
[2018-08-30] MEDS: APRESOLINE IV PRN ×2 (11:12→22:26)
[2018-08-30] MEDS: PEPCID IV SCH (11:12)
[2018-08-30] MEDS: KEPPRA 750 MG in D5W 100 ML IV SCH ×2 (11:17→22:25)
--- NOTE | 2018-08-30 11:26 | Progress Note ---
Assessment and Plan Cultures: 08/21/2018 Blood culture: CoNS, Diphtheroids Sputum cultures 08/21/2018 MSSA Urine cultures 08/21/2018 no growth Repeat blood cultures negative Assessment: 73 y/o male with a history of chronic kidney disease, liver disease, COPD, diabetes, GITA, colon cancer admitted on due to 4-day history of progressive shortness of breath and right neck/face edema and tenderness associated with poor po intake, patient became unresponsive en route. EMS unable to intubate. Pt bagged with 100%. Patient found in asystole at the ED receiving s/p CRP. 1) Severe Sepsis s/p arrest in the ED: resolved, lactate now normal. Etiology ? pneumonia. 2) Pneumonia: likely HCAP (recent admission to [facility] for MRSA cellulitis?). CXR shows bilateral infiltrate with airspace disease on RLL. Sputum cultures 2018 MSSA. 3) CoNS and diphtheroids bacteremia: likely contaminant. Blood cultures 08/21/2018 CoNS 2 of 4 bottles. TTE no vegetations, EF 40-45%. Repeat cultures negative. 4) Acute renal failure on CKD: renally adjust abx dosing. On intermittent dialysis per nephrology. 5) Elevated LFTs: from sepsis ? liver disease? 6) Acute encephalopathy: ? sepsis related. Improved. 7) Penicillin allergy: ?unclear reaction. Tolerating Cefazolin. 8) NGT with feculent material: bowel obstruction ruled out per CT. tolerating tube feeds. Recommendations: - Continue with cefazolin IV, Day 6 of 7 MD [facility] C: [phone] O: [phone] F: [phone] Subjective Date of service: 08/30/18 Principal diagnosis: s/p cardiac arrest; severe sepsis; acute hypoxemic- hypercapnic resp failure Interval history: Awake, remains intubated. On CPAP trial this morning. No fever. Objective - Exam Narrative Exam: Physical Exam: Constitutional: awake, intubated. Obese Head, Ears, Nose: Normocephalic, atraumatic. External ears, nose normal. Eyes: Conjunctivae/corneas clear. No icterus. No ptosis. Neck: Supple, no meningeal signs Oral: intubated. Cardiovascular: S1, S2 normal. Respiratory: Good air entry, clear to auscultation bilaterally GI: Soft, non-tender; bowel sounds normal. No peritoneal signs Musculoskeletal: trace pedal edema, no cyanosis. b/l LE hyperpigmentation Skin: No rash or abscess Hem/Lymphatic: No palpable cervical or supraclavicular nodes. No lymphangitis Psych: calm, no agitation Neurological: awake, intubated, on vent, follows commands - Constitutional Vitals: Vital Signs Temp Pulse Resp BP Pulse Ox 98.2 F 76 11 L 181/65 98 08/30/18 08:00 08/30/18 11:12 08/30/18 11:00 08/30/18 11:12 08/30/18 11:00 Temperature -Last 24 Hours Temperature 98.2 F Temperature 98.0 F Temperature 98.0 F Temperature 97.1 F Temperature 99.0 F Temperature 97.4 F Temperature 97.4 F - Labs CBC & Chem 7: 08/30/18 06:10 08/30/18 05:34 Labs: Abnormal lab results 08/27/18 08/29/18 08/29/18 Range/Units 04:59 11:37 15:32 RBC (3.65-5.03) M/mm3 Hgb (11.8-15.2) gm/dl Hct (35.5-45.6) % MCV (84-94) fl RDW (13.2-15.2) % Plt Count (140-440) K/mm3 POC ABG pCO2 < 30 L 47.0 H (35-45) POC ABG pO2 78 L (80-105) BUN (9-20) mg/dL Creatinine (0.8-1.5) mg/dL Glucose (75-100) mg/dL POC Glucose 116 H (70-105) 08/29/18 08/30/18 08/30/18 Range/Units 17:28 00:17 04:41 RBC (3.65-5.03) M/mm3 Hgb (11.8-15.2) gm/dl Hct (35.5-45.6) % MCV (84-94) fl RDW (13.2-15.2) % Plt Count (140-440) K/mm3 POC ABG pCO2 48.1 H (35-45) POC ABG pO2 (80-105) BUN (9-20) mg/dL Creatinine (0.8-1.5) mg/dL Glucose (75-100) mg/dL POC Glucose 174 H 132 H (70-105) 08/30/18 08/30/18 08/30/18 Range/Units 05:17 05:34 06:10 RBC 2.68 L (3.65-5.03) M/mm3 Hgb 8.2 L (11.8-15.2) gm/dl Hct 25.6 L (35.5-45.6) % MCV 96 H (84-94) fl RDW 17.2 H (13.2-15.2) % Plt Count 118 L (140-440) K/mm3 POC ABG pCO2 (35-45) POC ABG pO2 (80-105) BUN 54 H (9-20) mg/dL Creatinine 2.4 H (0.8-1.5) mg/dL Glucose 120 H (75-100) mg/dL POC Glucose 141 H (70-105) - Imaging and cardiology Chest x-ray: report reviewed, image reviewed (improving airspace disease.)
--- NOTE | 2018-08-30 13:57 | Progress Note ---
Assessment and Plan Assessment and plan: Patient is a 73 yo man with a history of hypertension, CKD 3, chronic respiratory failure on 2 liters of O2 due to end stage COPD, diabetes, GITA and colon cancer who presented to [facility] ED on 08/21/18 due to SOB, hallucinating and then became combative, pulling off his CPAP. He was just discharge from [facility] at the end on June for COPD. Patient became unresponsive en route. EMS unable to intubate. Pt was bagged with 100%. When he arrived at the entrance of the hospital. he lost his pulse. Patient found in PEA. He was successfully intubated and resuscitated in ED with CPR/ACLS and 2 rounds of epi with ROSC. He was also in ARF with hyperkalemia. Acute on chronic hypoxic respiratory failure >96 hours ETT: continue CPAP trails, d/w Dr. Cottrell, trach and PEG has been discussed. KHRIS secondary to ATN and vasomotor nephropathy, poa acute on chronic kidney disease 3: on HD, Nephrology following, Dialysis started, Femoral vas cath placed 08/26/18- to be changed to permacath Acute COPD exacerbation-POA: continue to treat with nebs, o2, abx until completion Pneumonia, HCAP-PRESUMED GNR: Continue with cefazolin IV, Day 5 of 7 Acute Metabolic Encephalopathy Cardiac arrest-POA, successfully resuscitated, resolved Bowel illeus- Resolved, Surgery input noted Severe Sepsis- Resolved LEFT TMJ JOINT DISLOCATION-POA Acute systolic Heart failure-POA Elevated D.DIMER Hyperkalemia Type 2 MD Anemia ?acute blood loss Thrombocytopenia; CBC pending Myoclonic seziures: EEG ordered, Neurology consulted and EEG Started Hypoxic ischemic Encephalopathy CARDIOMYOPATHY Abnormal cardiac enzymes Liver disease GITA colon cancer BY HX Morbidly obese Plan Continue supportive care- Remains intubated, off versed, still on fentanyl drip Continue weaning trails Continue on abx No evidence of obstruction possible Ileus resolved as patient had BM and NGT output is clearing, Tube feeds restarted Continue to monitor plt, considering dvt prophy Right IJ permacath started for dialysis Doppler lower ext pending with no DVT noted ID input noted. Patient with prior hx of MRSA cellulites check blood cultures, h[facility]ed with [facility] staff, Aspiration precautions Cardiology and Critical care input noted Abx per ID recs Plan discussed with Family The high probability of a clinically significant, sudden or life-threatening deterioration of the [respiratory, cardiovascular, renal , gastrointestinal, neurology] system(s) required my full and direct attention, intervention and personal management. The aggregate critical care time was [31] minutes without overlap. [x] Data Review and interpretation [x] Patient assessment and monitoring of vital signs [x] Documentation [x] Medication orders and management History Interval history: Patient was seen and examined. Follow-up on current diagnosis of Respiratory failure. No overnight events reported to me. Imaging, nursing note, chart, labs and old chart reviewed. Discussed with daughter Jenny at bedside who has a plethora of questions. Hospitalist Physical - Physical exam Narrative exam: Gen: critically ill appearing, intubated, sedated. HEENT: NCAT, EOMI, PERRL, OP Clear Neck: supple, no adenopathy, no thyromegaly, no JVD CVS/Heart: RRR, normal S1S2, pulses present bilaterally Chest/Lungs: diminished bs bilaterally, Symmetrical chest expansion, good air entry bilaterally GI/Abdomen: soft, NTND, good bowel sounds, no guarding or rebound /Bladder: no suprapubic tenderness, no CVA or paraspinal tenderness Extermity/Skin: dependent edema MSK: sedated Neuro: sedated Psych: sedated - Constitutional Vitals: Temp Pulse Resp BP Pulse Ox 98.6 F 77 17 174/56 97 08/30/18 12:00 08/30/18 13:30 08/30/18 13:30 08/30/18 13:30 08/30/18 13:30 General appearance: Present: other (intubated, chronically ill appearing) Results - Labs CBC & Chem 7: 08/30/18 06:10 08/30/18 05:34 Labs: Laboratory Last Values WBC 9.4 K/mm3 (4.5-11.0) 08/30/18 06:10 RBC 2.68 M/mm3 (3.65-5.03) L 08/30/18 06:10 Hgb 8.2 gm/dl (11.8-15.2) L 08/30/18 06:10 Hct 25.6 % (35.5-45.6) L 08/30/18 06:10 MCV 96 fl (84-94) H 08/30/18 06:10 MCH 31 pg (28-32) 08/30/18 06:10 MCHC 32 % (32-34) 08/30/18 06:10 RDW 17.2 % (13.2-15.2) H 08/30/18 06:10 Plt Count 118 K/mm3 (140-440) L 08/30/18 06:10 Lymph % (Auto) [employer] 08/25/18 16:43 [place] % (Auto) [employer]ter 08/25/18 16:43 Eos % (Auto) [employer] 08/25/18 16:43 Baso % (Auto) [employer] 08/25/18 16:43 Lymph # [employer] 08/25/18 16:43 [place] # [employer]ter 08/25/18 16:43 Eos # [employer] Machine [employer]ter 08/25/18 16:43 Baso # [employer]ter 08/25/18 16:43 Add Manual Diff Complete 08/25/18 16:43 Total Counted 100 08/25/18 16:43 Seg Neutrophils % [employer] 08/25/18 16:43 Seg Neuts % (Manual) 94.0 % (40.0-70.0) H 08/25/18 16:43 2.0 % 08/25/18 16:43 2.0 % (13.4-35.0) L 08/25/18 16:43 Reactive Lymphs % (Man) 0 % 08/25/18 16:43 2.0 % (0.0-7.3) 08/25/18 16:43 0 % (0.0-4.3) 08/25/18 16:43 0 % (0.0-1.8) 08/25/18 16:43 0 % 08/25/18 16:43 0 % 08/25/18 16:43 0 % 08/25/18 16:43 0 % 08/25/18 16:43 Nucleated RBC % Not Reportable 08/25/18 16:43 Seg Neutrophils # [employer] 08/25/18 16:43 Seg Neutrophils # Man 13.8 K/mm3 (1.8-7.7) H 08/25/18 16:43 Band Neutrophils # 0.3 K/mm3 08/25/18 16:43 0.3 K/mm3 (1.2-5.4) L 08/25/18 16:43 Abs React Lymphs (Man) 0.0 K/mm3 08/25/18 16:43 0.3 K/mm3 (0.0-0.8) 08/25/18 16:43 0.0 K/mm3 (0.0-0.4) 08/25/18 16:43 0.0 K/mm3 (0.0-0.1) 08/25/18 16:43 0.0 K/mm3 08/25/18 16:43 0.0 K/mm3 08/25/18 16:43 0.0 K/mm3 08/25/18 16:43 Blast Cells # 0.0 K/mm3 08/25/18 16:43 WBC Morphology Not Reportable 08/25/18 16:43 Hypersegmented Neuts Not Reportable 08/25/18 16:43 Hyposegmented Neuts Not Reportable 08/25/18 16:43 Hypogranular Neuts Not Reportable 08/25/18 16:43 Not Reportable 08/25/18 16:43 Not Reportable 08/25/18 16:43 Not Reportable 08/25/18 16:43 Not Reportable 08/25/18 16:43 Not Reportable 08/25/18 16:43 Not Reportable 08/25/18 16:43 Consistent w auto 08/25/18 16:43 Not Reportable 08/25/18 16:43 Plt Clumps, EDTA Not Reportable 08/25/18 16:43 Not Reportable 08/25/18 16:43 Not Reportable 08/25/18 16:43 Not Reportable 08/25/18 16:43 Plt Morphology Comment Not Reportable 08/25/18 16:43 RBC Morphology Not Reportable 08/25/18 16:43 Dimorphic RBCs Not Reportable 08/25/18 16:43 Not Reportable 08/25/18 16:43 1+ 08/25/18 16:43 Few 08/25/18 16:43 1+ 08/25/18 16:43 Not Reportable 08/25/18 16:43 Not Reportable 08/25/18 16:43 Not Reportable 08/25/18 16:43 Not Reportable 08/25/18 16:43 Not Reportable 08/25/18 16:43 Not Reportable 08/25/18 16:43 Not Reportable 08/25/18 16:43 Few 08/25/18 16:43 Not Reportable 08/25/18 16:43 Not Reportable 08/25/18 16:43 Not Reportable 08/25/18 16:43 Not Reportable 08/25/18 16:43 Not Reportable 08/25/18 16:43 Not Reportable 08/25/18 16:43 Not Reportable 08/25/18 16:43 Acanthocytes (Spur) Not Reportable 08/25/18 16:43 Rouleaux Not Reportable 08/25/18 16:43 Not Reportable 08/25/18 16:43 Not Reportable 08/25/18 16:43 Not Reportable 08/25/18 16:43 Not Reportable 08/25/18 16:43 Hem Pathologist Commnt No 08/25/18 16:43 PT 15.6 Sec. (12.2-14.9) H 08/25/18 16:43 INR 1.27 (0.87-1.13) H 08/25/18 16:43 APTT 30.8 Sec. (24.2-36.6) 08/21/18 04:42 1978.25 ng/mlDDU (0-234) H 08/24/18 13:41 POC ABG pH 7.410 (7.35-7.45) 08/30/18 13:35 POC ABG pCO2 41.4 (35-45) 08/30/18 13:35 POC ABG pO2 99 (80-105) 08/30/18 13:35 POC ABG HCO3 26.2 (22-26 mml/L) 08/30/18 13:35 POC ABG Total CO2 27 (23-27mmol/L) 08/30/18 13:35 POC ABG O2 Sat 98 08/30/18 13:35 POC ABG Base Excess 2 ((-2) - (+3)mmol/L) 08/30/18 13:35 30 % 08/30/18 13:35 Sodium 144 mmol/L (137-145) 08/30/18 05:34 Potassium 4.1 mmol/L (3.6-5.0) 08/30/18 05:34 Chloride 104.1 mmol/L (98-107) 08/30/18 05:34 Carbon Dioxide 26 mmol/L (22-30) 08/30/18 05:34 18 mmol/L 08/30/18 05:34 BUN 54 mg/dL (9-20) H 08/30/18 05:34 2.4 mg/dL (0.8-1.5) H 08/30/18 05:34 Estimated GFR 27 ml/min 08/30/18 05:34 23 % 08/30/18 05:34 Glucose 120 mg/dL (75-100) H 08/30/18 05:34 POC Glucose 167 (70-105) H 08/30/18 13:11 Lactic Acid 1.30 mmol/L (0.7-2.0) 08/21/18 20:50 Calcium 8.5 mg/dL (8.4-10.2) 08/30/18 05:34 Magnesium 2.30 mg/dL (1.7-2.3) 08/23/18 14:24 0.60 mg/dL (0.1-1.2) 08/28/18 04:49 AST 27 units/L (5-40) 08/28/18 04:49 ALT 12 units/L (7-56) 08/28/18 04:49 87 units/L (35-129) 08/28/18 04:49 222 units/L (55-170) H 08/21/18 10:45 CK-MB (CK-2) 9.2 ng/mL (0.0-4.0) H 08/21/18 10:45 CK-MB (CK-2) Rel Index 4.1 (0-4) H 08/21/18 10:45 0.044 ng/mL (0.00-0.029) H D 08/21/18 10:45 9.00 mg/dL (0.00-1.30) H 08/24/18 13:41 NT-Pro-B Natriuret Pep > 13333 pg/mL (0-900) H 08/28/18 04:49 5.4 g/dL (6.3-8.2) L 08/28/18 04:49 2.2 g/dL (3.9-5) L 08/28/18 04:49 0.7 % 08/28/18 04:49 Triglycerides 87 mg/dL (2-149) 08/21/18 04:42 Cholesterol 93 mg/dL (50-199) 08/21/18 04:42 44 mg/dL (50-130) L 08/21/18 04:42 41 mg/dL (40-59) 08/21/18 04:42 2.26 % 08/21/18 04:42 Yellow (Yellow) 08/21/18 15:03 Slightly-cloudy (Clear) 08/21/18 15:03 5.0 (5.0-7.0) 08/21/18 15:03 Ur Specific [place] 1.015 (1.003-1.030) 08/21/18 15:03 30 mg/dl mg/dL (Negative) 08/21/18 15:03 Neg mg/dL (Negative) 08/21/18 15:03 Neg mg/dL (Negative) 08/21/18 15:03 Mod (Negative) 08/21/18 15:03 Neg (Negative) 08/21/18 15:03 Neg (Negative) 08/21/18 15:03 < 2.0 mg/dL (<2.0) 08/21/18 15:03 Ur Leukocyte Esterase Tr (Negative) 08/21/18 15:03 13.0 /HPF (0.0-6.0) H 08/21/18 15:03 15.0 /HPF (0.0-6.0) 08/21/18 15:03 U Epithel Cells (Auto) 1.0 /HPF (0-13.0) 08/21/18 15:03 1+ /HPF (Negative) 08/21/18 15:03 Few /HPF 08/21/18 15:03 Random Vancomycin 10.5 ug/mL (0-40.0) 08/26/18 05:53 Hepatitis A IgM Ab Non-reactive (NonReactive) 08/27/18 23:25 Hep Bs Antigen Non-reactive (Negative) 08/27/18 23:25 Hep B Core IgM Ab Non-reactive (NonReactive) 08/27/18 23:25 Non-reactive (NonReactive) 08/27/18 23:25 Active Medications - Current Medications Current Medications: Generic Name Dose Route Start Last Admin Trade Name Freq PRN Reason Stop Dose Admin Acetaminophen 650 mg 08/21/18 06:31 Tylenol PO Q4H PRN Pain MILD(1-3)/Fever >100.5/COOK Acetaminophen 650 mg 08/21/18 06:31 Tylenol IA Q4H PRN Pain MILD(1-3)/Fever >100.5/COOK Albuterol/Ipratropium 1 ampul 08/24/18 20:00 08/30/18 08:17 Duoneb *Not For Prn Use* IH Not Given BIDRT LUIS Lipase/Protease/Amylase 1 each 08/26/18 12:07 Pancreamaris [place] 10,500 Unit FEEDTUBE PRN PRN For Clogged Feeding Tube Arformoterol Tartrate 15 mcg 08/24/18 20:00 08/30/18 08:17 Brovana Nebu IH 15 mcg Q12HRT LUIS Administration Bisacodyl 10 mg 08/25/18 16:00 08/30/18 11:12 Dulcolax IA Not Given QDAY LUIS Budesonide 0.5 mg 08/24/18 20:00 08/30/18 08:17 Pulmicort IH 0.5 mg Q12HRT LUIS Administration Dextrose 50 ml 08/21/18 06:48 D50w (25gm) Syringe IV PRN PRN Hypoglycemia Famotidine 20 mg 08/25/18 10:00 08/30/18 11:12 Pepcid IV 20 mg DAILY LUIS Administration Fentanyl 50 mcg 08/26/18 16:26 Sublimaze IV Q10MIN PRN ANALGESIA Heparin Sodium (Porcine) 5,000 unit 08/22/18 10:00 08/30/18 11:12 Heparin SUB-Q 5,000 unit Q12HR LUIS Administration Hydralazine HCl 10 mg 08/29/18 16:14 08/30/18 11:12 Apresoline IV 10 mg Q4HR PRN Administration HTN Hydrophilic Ointment 1 applic 08/21/18 11:34 Vaseline Lip Therapy TP Q2HR PRN Dry Lips Midazolam HCl 100 mg/ Sodium 100 mls @ 2 mls/hr 08/21/18 15:00 08/24/18 18:21 Chloride IV 0 mg/hr TITR LUIS 0 mls/hr Titration Protocol 2 MG/HR Levetiracetam 750 mg/ Dextrose 107.5 mls @ 400 mls/hr 08/24/18 22:00 08/30/18 11:17 IV 400 mls/hr Q12HR LUIS Administration Propofol 1,000 mg in 100 mls @ 4.389 mls/hr 08/26/18 18:00 08/29/18 11:21 Diprivan 10 Mg/Ml IV 0 mcg/kg/min TITR LUIS 0 mls/hr Titration Protocol 5 MCG/KG/MIN Fentanyl Citrate 2,000 mcg in 100 mls @ 7.053 mls/hr 08/27/18 12:00 08/29/18 18:19 Fentanyl Drip Premix IV 0 mcg/kg/hr TITR LUIS 0 mls/hr Titration Protocol 1 MCG/KG/HR Cefazolin Sodium 2 gm/ Sodium 100 mls @ 200 mls/hr 08/29/18 18:00 08/29/18 17:29 Chloride IV 200 mls/hr QPM [facility] Administration Insulin Human Lispro 0 unit 08/21/18 12:00 08/30/18 08:35 Humalog SUB-Q Not Given Q6HR [facility] Protocol Metoclopramide HCl 10 mg 08/25/18 18:00 08/30/18 08:35 Reglan IV Not Given Q12H [facility] Midazolam HCl 2 mg 08/21/18 14:32 08/21/18 14:52 Versed IV 2 mg Q10MIN PRN Administration Sedation Morphine Sulfate 2 mg 08/26/18 14:24 08/30/18 01:40 Morphine IV 2 mg Q6H PRN Administration Pain, Moderate (4-6) Multi-Ingred Cream/Lotion/Oil/Oint 1 applic 08/21/18 11:34 Artificial Tears Ophth Oint OU Q4HR PRN Dry Eye(s) Ondansetron HCl 4 mg 08/21/18 06:31 Zofran IV Q8H PRN Nausea And Vomiting Polyethylene Glycol 17 gm 08/26/18 10:00 08/30/18 11:12 Miralax 3350 PO 17 gm QDAY LUIS Administration Simple Syrup 15 ml 08/26/18 12:07 Simple Syrup FEEDTUBE PRN PRN Hypoglycemia Simple Syrup 30 ml 08/26/18 12:07 Simple Syrup FEEDTUBE PRN PRN Hypoglycemia Sodium Bicarbonate 325 mg 08/26/18 12:07 Sodium Bicarbonate FEEDTUBE PRN PRN For Clogged Feeding Tube Sodium Chloride 10 ml 08/21/18 10:00 08/30/18 11:13 Sodium Chloride Flush Syringe 10 Ml IV 10 ml BID LUIS Administration Sodium Chloride 10 ml 08/21/18 06:31 Sodium Chloride Flush Syringe 10 Ml IV PRN PRN LINE FLUSH Nutrition/Malnutrition Assess - Dietary Evaluation Nutrition/Malnutrition Findings: Nutrition Notes Start: 08/21/18 16:58 Freq: Status: Active Protocol: Document 08/29/18 10:35 LP (Rec: 08/29/18 10:37 LP [id number]) Nutrition Notes Need for Assessment generated from: MD Order Initial or Follow up Brief Note Subjective/Other Information Consult for TF. Pt ok to increase TF to goal rate. Nutrition Intervention Nutrition Support: Nepro at 45ml/hr 150ml q4h flush Kcal 1,944 Protein (gm) 87 Fluid (mL) 785 Goal #1 TF tolerance Goal #2 Meet at least 80% of kcal and protein needs Anticipated Discharge Needs: Unable to determine at this time Follow-Up By: 09/01/18 Additional Comments Follow for TF tolerance
--- NOTE | 2018-08-30 20:19 | Progress Note ---
Assessment and Plan Impression: * Nonoliguric KHRIS on CKD * s/p Cardiopulmonary arrest with ROSC * Acute on chronic hypoxemic respiratory failure * Lactic acidosis * Acute metabolic/respiratory acidosis * Sepsis probably secondary to aspiration PNA * COPD * Acute metabolic-toxic encephalopathy * NSTEMI * Type 2 DM Plan: * Hold HD today. Last HD treatment on August 28. Continue to monitor SCr and UOP for evidence of recovery * Reassess daily for need for HD * Strict I/O - 24h urine output noted; per RN, day shift RN did not document I/O yesterday * Vent management per pulmonary/CCM * Start hydralazine 25mg PO/NGT TID * Antibiotics per primary team * Avoid nephrotoxins * AM labs * Plan of care discussed with family member who is at bedside Subjective Date of service: 08/30/18 Principal diagnosis: s/p cardiac arrest; severe sepsis; acute hypoxemic- hypercapnic resp failure Interval history: No acute events overnight. 24h urine output noted; per RN, day shift RN did not document I/O yesterday Objective - Vital Signs Vital signs: Vital Signs - 12hr 08/30/18 08/30/18 08/30/18 08:16 08:18 08:23 Temperature Pulse Rate 72 74 Pulse Rate [ 68 Anterior Bilateral Throughout] Respiratory 14 Rate Respiratory 14 Rate [Anterior Bilateral Throughout] Blood Pressure 160/52 160/52 O2 Sat by Pulse 97 97 Oximetry 08/30/18 08/30/18 08/30/18 08:30 08:46 09:00 Temperature Pulse Rate 75 71 67 Pulse Rate [ Anterior Bilateral Throughout] Respiratory 14 13 13 Rate Respiratory Rate [Anterior Bilateral Throughout] Blood Pressure 160/52 160/52 176/74 O2 Sat by Pulse 96 99 98 Oximetry 08/30/18 08/30/18 08/30/18 09:16 09:30 09:46 Temperature Pulse Rate 82 73 70 Pulse Rate [ Anterior Bilateral Throughout] Respiratory 18 13 12 Rate Respiratory Rate [Anterior Bilateral Throughout] Blood Pressure 176/74 147/65 176/74 O2 Sat by Pulse 99 99 99 Oximetry 08/30/18 08/30/18 08/30/18 10:00 10:16 10:30 Temperature Pulse Rate 72 73 70 Pulse Rate [ Anterior Bilateral Throughout] Respiratory 13 12 13 Rate Respiratory Rate [Anterior Bilateral Throughout] Blood Pressure 170/65 170/65 170/65 O2 Sat by Pulse 98 98 98 Oximetry 08/30/18 08/30/18 08/30/18 10:46 11:00 11:12 Temperature Pulse Rate 77 72 76 Pulse Rate [ Anterior Bilateral Throughout] Respiratory 10 L 11 L Rate Respiratory Rate [Anterior Bilateral Throughout] Blood Pressure 175/62 181/65 181/65 O2 Sat by Pulse 99 98 Oximetry 08/30/18 08/30/18 08/30/18 11:16 11:30 11:46 Temperature Pulse Rate 70 68 75 Pulse Rate [ Anterior Bilateral Throughout] Respiratory 13 14 13 Rate Respiratory Rate [Anterior Bilateral Throughout] Blood Pressure 181/65 162/52 162/52 O2 Sat by Pulse 97 98 98 Oximetry 08/30/18 08/30/18 08/30/18 12:00 12:16 12:30 Temperature 98.6 F Pulse Rate 67 61 67 Pulse Rate [ Anterior Bilateral Throughout] Respiratory 13 12 13 Rate Respiratory Rate [Anterior Bilateral Throughout] Blood Pressure 173/54 164/55 O2 Sat by Pulse 98 98 98 Oximetry 08/30/18 08/30/18 08/30/18 12:46 13:00 13:16 Temperature Pulse Rate 71 73 67 Pulse Rate [ Anterior Bilateral Throughout] Respiratory 15 13 13 Rate Respiratory Rate [Anterior Bilateral Throughout] Blood Pressure 173/54 174/56 174/56 O2 Sat by Pulse 98 99 98 Oximetry 08/30/18 08/30/18 08/30/18 13:30 13:45 13:46 Temperature Pulse Rate 77 80 Pulse Rate [ Anterior Bilateral Throughout] Respiratory 17 15 Rate Respiratory Rate [Anterior Bilateral Throughout] Blood Pressure 174/56 174/56 O2 Sat by Pulse 97 98 97 Oximetry 08/30/18 08/30/18 08/30/18 14:00 14:16 14:30 Temperature Pulse Rate 75 75 70 Pulse Rate [ Anterior Bilateral Throughout] Respiratory 19 18 16 Rate Respiratory Rate [Anterior Bilateral Throughout] Blood Pressure 169/61 169/61 158/52 O2 Sat by Pulse 96 95 97 Oximetry 08/30/18 08/30/18 08/30/18 14:46 15:00 15:16 Temperature Pulse Rate 74 75 77 Pulse Rate [ Anterior Bilateral Throughout] Respiratory 17 19 17 Rate Respiratory Rate [Anterior Bilateral Throughout] Blood Pressure 158/52 158/52 164/62 O2 Sat by Pulse 96 97 Oximetry 07/03/19 07/03/19 07/03/19 15:30 15:46 16:00 Temperature 98.9 F Pulse Rate 68 71 71 Pulse Rate [ Anterior Bilateral Throughout] Respiratory 15 19 17 Rate Respiratory Rate [Anterior Bilateral Throughout] Blood Pressure 161/57 161/57 163/63 O2 Sat by Pulse 97 98 97 Oximetry 08/30/18 08/30/18 08/30/18 16:16 16:30 16:46 Temperature Pulse Rate 73 73 77 Pulse Rate [ Anterior Bilateral Throughout] Respiratory 18 16 17 Rate Respiratory Rate [Anterior Bilateral Throughout] Blood Pressure 163/63 168/61 163/63 O2 Sat by Pulse 97 98 98 Oximetry 08/30/18 08/30/18 08/30/18 17:00 17:16 17:30 Temperature Pulse Rate 70 73 79 Pulse Rate [ Anterior Bilateral Throughout] Respiratory 15 14 14 Rate Respiratory Rate [Anterior Bilateral Throughout] Blood Pressure 163/63 172/60 172/69 O2 Sat by Pulse 96 99 98 Oximetry 08/30/18 08/30/18 08/30/18 17:46 18:00 18:16 Temperature Pulse Rate 74 73 69 Pulse Rate [ Anterior Bilateral Throughout] Respiratory 16 15 18 Rate Respiratory Rate [Anterior Bilateral Throughout] Blood Pressure 172/69 165/62 165/62 O2 Sat by Pulse 99 99 97 Oximetry 08/30/18 08/30/18 19:59 20:00 Temperature Pulse Rate Pulse Rate [ 74 Anterior Bilateral Throughout] Respiratory Rate Respiratory 15 Rate [Anterior Bilateral Throughout] Blood Pressure O2 Sat by Pulse 97 Oximetry - General Appearance General appearance: intubated EENT: ATNC, other (ETT in place) Respiratory: Present: Other (coarse breath sounds) Cardiology: regular, S1S2 Gastrointestinal: no tenderness, no distended, obese Neurologic: other (awake, alert) Psychiatric: cooperative - Lab 08/30/18 06:10 08/30/18 05:34 Most recent lab results Calcium 8.5 mg/dL (8.4-10.2) 08/30/18 05:34 Magnesium 2.30 mg/dL (1.7-2.3) 08/23/18 14:24 Medications & Allergies - Medications Allergies/Adverse Reactions: Allergies Penicillins Allergy (Verified 08/21/18 04:49) Unknown -cillins Allergy (Uncoded 08/21/18 04:49) Unknown Home Medications: Home Medications Medication Instructions Recorded Confirmed Last Taken Type AtorvaSTATin [Lipitor] 10 mg PO QHS 08/21/18 08/21/18 Unknown History Ferrous Sulfate [Feosol] 325 mg PO QDAY 08/21/18 08/21/18 Unknown History Melatonin [Melatonin 10MG CAP] 10 mg PO DAILY 08/21/18 08/21/18 Unknown History NIFEdipine [Nifedipine ER] 60 mg PO BID 08/21/18 08/21/18 Unknown History Sennosides Tab [Senokot] 1 tab PO HS 08/21/18 08/21/18 Unknown History Tamsulosin [Flomax] 2 cap PO HS 08/21/18 08/21/18 Unknown History Torsemide [Demadex] 20 mg PO DAILY 08/21/18 08/21/18 Unknown History Venlafaxine HCl [Venlafaxin ER] 75 mg PO QDAY 08/21/18 08/21/18 Unknown History buPROPion [Wellbutrin] 100 mg PO DAILY 08/21/18 08/21/18 Unknown History Active Medications: Generic Name Dose Route Start Last Admin Trade Name Freq PRN Reason Stop Dose Admin Acetaminophen 650 mg 08/21/18 06:31 Tylenol PO Q4H PRN Pain MILD(1-3)/Fever >100.5/COOK Acetaminophen 650 mg 08/21/18 06:31 Tylenol DC Q4H PRN Pain MILD(1-3)/Fever >100.5/COOK Albuterol/Ipratropium 1 ampul 08/24/18 20:00 08/30/18 19:58 Duoneb *Not For Prn Use* IH 1 ampul BIDRT LUIS Administration Lipase/Protease/Amylase 1 each 08/26/18 12:07 [place] 10,500 Unit FEEDTUBE PRN PRN For Clogged Feeding Tube Arformoterol Tartrate 15 mcg 08/24/18 20:00 08/30/18 19:59 Brovana Nebu IH 15 mcg Q12HRT LUIS Administration Bisacodyl 10 mg 08/25/18 16:00 08/30/18 11:12 Dulcolax DC Not Given QDAY LUIS Budesonide 0.5 mg 08/24/18 20:00 08/30/18 19:58 Pulmicort IH 0.5 mg Q12HRT LUIS Administration Dextrose 50 ml 08/21/18 06:48 D50w (25gm) Syringe IV PRN PRN Hypoglycemia Famotidine 20 mg 08/25/18 10:00 08/30/18 11:12 Pepcid IV 20 mg DAILY LUIS Administration Fentanyl 50 mcg 08/26/18 16:26 Sublimaze IV Q10MIN PRN ANALGESIA Heparin Sodium (Porcine) 5,000 unit 08/22/18 10:00 08/30/18 11:12 Heparin SUB-Q 5,000 unit Q12HR LUIS Administration Hydralazine HCl 10 mg 08/30/18 18:31 Apresoline IV 09/01/18 18:30 Q4HR PRN Blood Pressure Hydrophilic Ointment 1 applic 08/21/18 11:34 Vaseline Lip Therapy TP Q2HR PRN Dry Lips Midazolam HCl 100 mg/ Sodium 100 mls @ 2 mls/hr 08/21/18 15:00 08/24/18 18:21 Chloride IV 0 mg/hr TITR LUIS 0 mls/hr Titration Protocol 2 MG/HR Levetiracetam 750 mg/ Dextrose 107.5 mls @ 400 mls/hr 08/24/18 22:00 08/30/18 11:17 IV 400 mls/hr Q12HR LUIS Administration Propofol 1,000 mg in 100 mls @ 4.389 mls/hr 08/26/18 18:00 08/29/18 11:21 Diprivan 10 Mg/Ml IV 0 mcg/kg/min TITR LUIS 0 mls/hr Titration Protocol 5 MCG/KG/MIN Fentanyl Citrate 2,000 mcg in 100 mls @ 7.053 mls/hr 08/27/18 12:00 08/29/18 18:19 Fentanyl Drip Premix IV 0 mcg/kg/hr TITR LUIS 0 mls/hr Titration Protocol 1 MCG/KG/HR Cefazolin Sodium 2 gm/ Sodium 100 mls @ 200 mls/hr 08/29/18 18:00 08/30/18 18:37 Chloride IV 200 mls/hr QPM LUIS Administration Insulin Human Lispro 0 unit 08/21/18 12:00 08/30/18 18:38 Humalog SUB-Q Not Given Q6HR LUIS Protocol Metoclopramide HCl 10 mg 08/25/18 18:00 08/30/18 18:39 Reglan IV 10 mg Q12H LUIS Administration Midazolam HCl 2 mg 08/21/18 14:32 08/21/18 14:52 Versed IV 2 mg Q10MIN PRN Administration Sedation Morphine Sulfate 2 mg 08/26/18 14:24 08/30/18 01:40 Morphine IV 2 mg Q6H PRN Administration Pain, Moderate (4-6) Multi-Ingred Cream/Lotion/Oil/Oint 1 applic 08/21/18 11:34 Artificial Tears Ophth Oint OU Q4HR PRN Dry Eye(s) Ondansetron HCl 4 mg 08/21/18 06:31 Zofran IV Q8H PRN Nausea And Vomiting Polyethylene Glycol 17 gm 08/26/18 10:00 08/30/18 11:12 Miralax 3350 PO 17 gm QDAY LUIS Administration Simple Syrup 15 ml 08/26/18 12:07 Simple Syrup FEEDTUBE PRN PRN Hypoglycemia Simple Syrup 30 ml 08/26/18 12:07 Simple Syrup FEEDTUBE PRN PRN Hypoglycemia Sodium Bicarbonate 325 mg 08/26/18 12:07 Sodium Bicarbonate FEEDTUBE PRN PRN For Clogged Feeding Tube Sodium Chloride 10 ml 08/21/18 10:00 08/30/18 11:13 Sodium Chloride Flush Syringe 10 Ml IV 10 ml BID LUIS Administration Sodium Chloride 10 ml 08/21/18 06:31 Sodium Chloride Flush Syringe 10 Ml IV PRN PRN LINE FLUSH
[2018-08-30] MEDS: APRESOLINE PO SCH (21:31)
[2018-08-31 06:04] LABS: Hemoglobin 8.1 gm/dl (11.8-15.2); Mean Corpuscular HGB Conc 32 % (32-34); Mean Corpuscular Hemoglobin 31 pg (28-32); Mean Corpuscular Volume 96 fl (84-94); Platelet Count 128 K/mm3 (140-440); Red Blood Count 2.62 M/mm3 (3.65-5.03); Red Cell Distribution Width 17.5 % (13.2-15.2)
[2018-08-31 06:23] LABS: Calcium 8.5 mg/dL (8.4-10.2)
[2018-08-31] MEDS: HumaLOG SUB-Q SCH ×3 (07:38→21:46)
[2018-08-31] MEDS: APRESOLINE PO SCH ×3 (07:38→21:45)
[2018-08-31] MEDS: APRESOLINE IV PRN ×2 (07:44→13:16)
[2018-08-31] MEDS: REGLAN IV SCH ×2 (07:44→19:56)
--- NOTE | 2018-08-31 08:07 | Progress Note ---
Assessment and Plan -s/p Cardiopulmonary arrest with ROSC -Acute on chronic hypoxemic respiratory failure, extubated -Lactic acidosis -Acute metabolic/respiratory acidosis -Acute on chronic renal failure (multifactorial) -Sepsis probably secondary to aspiration PNA -AE-COPD -Acute metabolic-toxic encephalopathy -Morbid obesity -NSTEMI- probably type 2 ischemia -Type 2 DM -h/o Liver disease -h/o Colon CA -Hyperkalemia LEFT TMJ JOINT DISLOCATION-POA -Supplemental oxygen to keep O2 sats 88-90% -Restrictive oxygen therapy -Bronchodilators -Accuchecks with glycemic control. Target blood glucose <180mg/dL -Prevention of delirium, maintenance of sleep-wake cycle -Antibiotics per ID -Avoid nephrotoxic agents, adjust all antibiotics and medications for CrCL and GFR -VTE and Stress ulcer prophylaxis( Heparin/Famotidine) --PT/OT to treat Discussed with RT/RN Discussed with his at the bedside, answered all her questions. OK TO TRANSFER TO TELEMETRY FLOOR CONDITION: IMPROVING PROGNOSIS:FAIR CODE STATUS: FULL CODE Subjective Date of service: 08/31/18 Principal diagnosis: s/p cardiac arrest; severe sepsis; acute hypoxemic-hype rcapnic resp failure Interval history: Patient is seen today for: cardiopulmonary arrest, severe sepsis, acute hypoxemic-hypercapnic respiratory failure , extubated , KHRIS on CKD on HD Seen and examined at bedside; 24hour events reviewed; nursing and respiratory care staff consulted; no adverse overnight events reported to me; Awake and alert, obeying simple commands Extubated, passed swallow evaluation and is on a modified diet is at the bedside No vasopressor support; indwelling Madison- making good urine output Vitals, labs, medications, chart and imaging reviewed. Discussed with RT/RN Objective Vital Signs - 12hr 08/30/18 08/30/18 08/30/18 20:15 21:00 22:00 Temperature Pulse Rate 80 68 Pulse Rate [ 76 Anterior Bilateral Throughout] Pulse Rate [ From Monitor] Respiratory 16 20 Rate Respiratory 15 Rate [Anterior Bilateral Throughout] Blood Pressure 158/61 179/87 O2 Sat by Pulse 97 94 Oximetry 08/30/18 08/30/18 08/30/18 22:26 23:00 23:02 Temperature Pulse Rate 77 71 77 Pulse Rate [ Anterior Bilateral Throughout] Pulse Rate [ From Monitor] Respiratory 21 18 Rate Respiratory Rate [Anterior Bilateral Throughout] Blood Pressure 179/87 161/67 179/87 O2 Sat by Pulse 98 98 Oximetry 08/30/18 08/31/18 08/31/18 23:08 00:00 01:00 Temperature 98.8 F Pulse Rate 73 70 64 Pulse Rate [ Anterior Bilateral Throughout] Pulse Rate [ 70 From Monitor] Respiratory 16 16 19 Rate Respiratory Rate [Anterior Bilateral Throughout] Blood Pressure 161/67 157/60 159/52 O2 Sat by Pulse 98 98 97 Oximetry 08/31/18 08/31/18 08/31/18 02:00 03:00 04:00 Temperature 98.7 F Pulse Rate 67 68 60 Pulse Rate [ Anterior Bilateral Throughout] Pulse Rate [ 60 From Monitor] Respiratory 14 15 12 Rate Respiratory Rate [Anterior Bilateral Throughout] Blood Pressure 150/51 161/53 155/52 O2 Sat by Pulse 98 99 98 Oximetry 08/31/18 08/31/18 08/31/18 04:43 05:00 06:00 Temperature Pulse Rate 64 65 64 Pulse Rate [ Anterior Bilateral Throughout] Pulse Rate [ From Monitor] Respiratory 17 14 16 Rate Respiratory Rate [Anterior Bilateral Throughout] Blood Pressure 155/52 167/50 177/48 O2 Sat by Pulse 98 99 99 Oximetry 08/31/18 08/31/18 08/31/18 07:00 07:44 07:57 Temperature 98.0 F Pulse Rate 61 70 Pulse Rate [ Anterior Bilateral Throughout] Pulse Rate [ From Monitor] Respiratory 14 Rate Respiratory Rate [Anterior Bilateral Throughout] Blood Pressure 173/63 173/51 O2 Sat by Pulse 97 Oximetry Constitutional: alert, other (morbidly obese, resting peacefully in bed) Eyes: non-icteric ENT: oropharynx moist Neck: supple, no JVD, other (short neck) Effort: mildly labored Ascultation: Bilateral: diminished breath sounds, rhonchi (coarse BS bilaterally) Percussion: Bilateral: not dull Cardiovascular: regular rate and rhythm, other (S1,S2, no murmurs, no gallops or rubs) Gastrointestinal: normoactive bowel sounds, soft, non-tender, non-distended, other (Madison catheter in place, clear urine) Integumentary: normal, other (right femoral HD catheter) Extremities: no cyanosis, no edema, pink and warm, pulses normal, no ischemia or petechiae Neurologic: non-focal exam (grossly), pupils equal and round, CN II-XII normal, motor strength normal and, other (awake and alert, obeying commands) Psychiatric: mood appropriate, affect normal CBC and BMP: 09/11/18 06:00 09/11/18 06:00 ABG, PT/INR, D-dimer: ABG POC ABG pH 7.410 (7.35-7.45) 08/30/18 13:35 POC ABG pCO2 41.4 (35-45) 08/30/18 13:35 POC ABG pO2 99 (80-105) 08/30/18 13:35 POC ABG HCO3 26.2 (22-26 mml/L) 08/30/18 13:35 POC ABG Total CO2 27 (23-27mmol/L) 08/30/18 13:35 POC ABG O2 Sat 98 08/30/18 13:35 PT/INR, D-dimer PT 15.6 Sec. (12.2-14.9) H 08/25/18 16:43 INR 1.27 (0.87-1.13) H 08/25/18 16:43 1978.25 ng/mlDDU (0-234) H 08/24/18 13:41 Abnormal lab findings: Abnormal Labs 08/21/18 08/21/18 08/21/18 04:42 04:42 04:42 WBC 19.1 H RBC 2.49 L Hgb 7.7 L Hct 24.5 L MCV 98 H RDW 17.7 H Plt Count Seg Neuts % (Manual) 84.0 H Lymphocytes % (Manual) 7.0 L Monocytes % (Manual) 9.0 H Nucleated RBC % Seg Neutrophils # Man 16.0 H Lymphocytes # (Manual) Monocytes # (Manual) 1.7 H PT 20.1 H INR 1.76 H D-Dimer POC ABG pH POC ABG pCO2 POC ABG pO2 Sodium Potassium Chloride Carbon Dioxide BUN Creatinine Glucose POC Glucose Lactic Acid Calcium Total Bilirubin AST ALT Total Creatine Kinase CK-MB (CK-2) CK-MB (CK-2) Rel Index Troponin T 0.032 H C-Reactive Protein NT-Pro-B Natriuret Pep Total Protein Albumin LDL Cholesterol Direct 44 L Urine WBC (Auto) 08/21/18 08/21/18 08/21/18 04:42 04:42 04:42 WBC RBC Hgb Hct MCV RDW Plt Count Seg Neuts % (Manual) Lymphocytes % (Manual) Monocytes % (Manual) Nucleated RBC % Seg Neutrophils # Man Lymphocytes # (Manual) Monocytes # (Manual) PT INR D-Dimer POC ABG pH POC ABG pCO2 POC ABG pO2 Sodium Potassium 6.0 H Chloride Carbon Dioxide 15 L BUN 57 H Creatinine 4.3 H Glucose 111 H POC Glucose Lactic Acid 5.80 H* Calcium Total Bilirubin 1.80 H AST 212 H ALT 94 H Total Creatine Kinase CK-MB (CK-2) CK-MB (CK-2) Rel Index Troponin T C-Reactive Protein NT-Pro-B Natriuret Pep 19606 H Total Protein Albumin 3.2 L LDL Cholesterol Direct Urine WBC (Auto) 08/21/18 08/21/18 08/21/18 05:08 05:58 05:58 WBC RBC Hgb Hct MCV RDW Plt Count Seg Neuts % (Manual) Lymphocytes % (Manual) Monocytes % (Manual) Nucleated RBC % Seg Neutrophils # Man Lymphocytes # (Manual) Monocytes # (Manual) PT INR D-Dimer POC ABG pH 7.164 L POC ABG pCO2 46.3 H POC ABG pO2 229 H Sodium Potassium Chloride Carbon Dioxide BUN Creatinine Glucose POC Glucose Lactic Acid 5.10 H* Calcium Total Bilirubin AST ALT Total Creatine Kinase CK-MB (CK-2) CK-MB (CK-2) Rel Index Troponin T 0.035 H C-Reactive Protein NT-Pro-B Natriuret Pep Total Protein Albumin LDL Cholesterol Direct Urine WBC (Auto) 08/21/18 08/21/18 08/21/18 06:45 06:45 06:53 WBC RBC Hgb Hct MCV RDW Plt Count Seg Neuts % (Manual) Lymphocytes % (Manual) Monocytes % (Manual) Nucleated RBC % Seg Neutrophils # Man Lymphocytes # (Manual) Monocytes # (Manual) PT INR D-Dimer POC ABG pH 7.160 L POC ABG pCO2 46.8 H POC ABG pO2 Sodium Potassium Chloride Carbon Dioxide BUN Creatinine Glucose POC Glucose Lactic Acid 4.70 H* Calcium Total Bilirubin AST ALT Total Creatine Kinase 234 H CK-MB (CK-2) 9.1 H CK-MB (CK-2) Rel Index Troponin T 0.032 H C-Reactive Protein NT-Pro-B Natriuret Pep Total Protein Albumin LDL Cholesterol Direct Urine WBC (Auto) 0608/21/18 08/21/18 10:43 10:43 10:45 WBC RBC Hgb Hct MCV RDW Plt Count Seg Neuts % (Manual) Lymphocytes % (Manual) Monocytes % (Manual) Nucleated RBC % Seg Neutrophils # Man Lymphocytes # (Manual) Monocytes # (Manual) PT INR D-Dimer POC ABG pH POC ABG pCO2 POC ABG pO2 Sodium Potassium Chloride Carbon Dioxide 17 L BUN 59 H Creatinine 4.2 H Glucose POC Glucose Lactic Acid 3.70 H* Calcium Total Bilirubin AST ALT Total Creatine Kinase 222 H CK-MB (CK-2) 9.2 H CK-MB (CK-2) Rel Index 4.1 H Troponin T 0.044 H D C-Reactive Protein NT-Pro-B Natriuret Pep Total Protein Albumin LDL Cholesterol Direct Urine WBC (Auto) 08/21/18 08/21/18 08/21/18 11:38 12:33 15:03 WBC RBC Hgb Hct MCV RDW Plt Count Seg Neuts % (Manual) Lymphocytes % (Manual) Monocytes % (Manual) Nucleated RBC % Seg Neutrophils # Man Lymphocytes # (Manual) Monocytes # (Manual) PT INR D-Dimer POC ABG pH 7.250 L POC ABG pCO2 POC ABG pO2 121 H Sodium Potassium Chloride Carbon Dioxide BUN Creatinine Glucose POC Glucose 129 H Lactic Acid Calcium Total Bilirubin AST ALT Total Creatine Kinase CK-MB (CK-2) CK-MB (CK-2) Rel Index Troponin T C-Reactive Protein NT-Pro-B Natriuret Pep Total Protein Albumin LDL Cholesterol Direct Urine WBC (Auto) 13.0 H 08/21/18 08/22/18 08/22/18 15:47 00:01 04:27 WBC RBC Hgb Hct MCV RDW Plt Count Seg Neuts % (Manual) Lymphocytes % (Manual) Monocytes % (Manual) Nucleated RBC % Seg Neutrophils # Man Lymphocytes # (Manual) Monocytes # (Manual) PT INR D-Dimer POC ABG pH 7.457 H POC ABG pCO2 POC ABG pO2 117 H Sodium Potassium Chloride Carbon Dioxide BUN Creatinine Glucose POC Glucose 211 H Lactic Acid 2.70 H* Calcium Total Bilirubin AST ALT Total Creatine Kinase CK-MB (CK-2) CK-MB (CK-2) Rel Index Troponin T C-Reactive Protein NT-Pro-B Natriuret Pep Total Protein Albumin LDL Cholesterol Direct Urine WBC (Auto) 0608/22/18 08/22/18 05:46 06:10 06:10 WBC RBC 2.27 L Hgb 7.0 L Hct 21.2 L MCV RDW 16.8 H Plt Count 129 L Seg Neuts % (Manual) 95.0 H Lymphocytes % (Manual) 1.0 L Monocytes % (Manual) Nucleated RBC % 1.0 H Seg Neutrophils # Man 7.8 H Lymphocytes # (Manual) 0.1 L Monocytes # (Manual) PT INR D-Dimer POC ABG pH POC ABG pCO2 POC ABG pO2 Sodium Potassium Chloride Carbon Dioxide 20 L BUN 63 H Creatinine 3.9 H Glucose 205 H POC Glucose 223 H Lactic Acid Calcium Total Bilirubin AST ALT Total Creatine Kinase CK-MB (CK-2) CK-MB (CK-2) Rel Index Troponin T C-Reactive Protein NT-Pro-B Natriuret Pep Total Protein Albumin LDL Cholesterol Direct Urine WBC (Auto) 08/22/18 08/22/18 08/22/18 06:10 12:57 16:21 WBC RBC Hgb Hct MCV RDW Plt Count Seg Neuts % (Manual) Lymphocytes % (Manual) Monocytes % (Manual) Nucleated RBC % Seg Neutrophils # Man Lymphocytes # (Manual) Monocytes # (Manual) PT INR D-Dimer POC ABG pH 7.477 H POC ABG pCO2 POC ABG pO2 Sodium Potassium Chloride Carbon Dioxide BUN Creatinine Glucose POC Glucose 166 H Lactic Acid Calcium Total Bilirubin AST ALT Total Creatine Kinase CK-MB (CK-2) CK-MB (CK-2) Rel Index Troponin T C-Reactive Protein 23.60 H NT-Pro-B Natriuret Pep Total Protein Albumin LDL Cholesterol Direct Urine WBC (Auto) 08/22/18 08/22/18 08/23/18 17:41 23:42 04:38 WBC RBC Hgb Hct MCV RDW Plt Count Seg Neuts % (Manual) Lymphocytes % (Manual) Monocytes % (Manual) Nucleated RBC % Seg Neutrophils # Man Lymphocytes # (Manual) Monocytes # (Manual) PT INR D-Dimer POC ABG pH 7.249 L POC ABG pCO2 53.5 H POC ABG pO2 73 L Sodium Potassium Chloride Carbon Dioxide BUN Creatinine Glucose POC Glucose 131 H 168 H Lactic Acid Calcium Total Bilirubin AST ALT Total Creatine Kinase CK-MB (CK-2) CK-MB (CK-2) Rel Index Troponin T C-Reactive Protein NT-Pro-B Natriuret Pep Total Protein Albumin LDL Cholesterol Direct Urine WBC (Auto) 08/23/18 08/23/18 08/23/18 04:52 04:52 04:52 WBC RBC 2.39 L Hgb 7.5 L Hct 22.8 L MCV 95 H RDW 17.6 H Plt Count Seg Neuts % (Manual) Lymphocytes % (Manual) Monocytes % (Manual) Nucleated RBC % Seg Neutrophils # Man Lymphocytes # (Manual) Monocytes # (Manual) PT INR D-Dimer POC ABG pH POC ABG pCO2 POC ABG pO2 Sodium Potassium 5.6 H 5.6 H Chloride Carbon Dioxide 21 L BUN 71 H 72 H Creatinine 4.1 H 4.0 H Glucose 141 H 140 H POC Glucose Lactic Acid Calcium 8.3 L 8.2 L Total Bilirubin AST 247 H ALT 220 H Total Creatine Kinase CK-MB (CK-2) CK-MB (CK-2) Rel Index Troponin T C-Reactive Protein NT-Pro-B Natriuret Pep Total Protein Albumin 2.8 L LDL Cholesterol Direct Urine WBC (Auto) 08/23/18 08/23/18 08/23/18 05:50 08:38 12:21 WBC RBC Hgb Hct MCV RDW Plt Count Seg Neuts % (Manual) Lymphocytes % (Manual) Monocytes % (Manual) Nucleated RBC % Seg Neutrophils # Man Lymphocytes # (Manual) Monocytes # (Manual) PT INR D-Dimer POC ABG pH POC ABG pCO2 POC ABG pO2 Sodium Potassium Chloride Carbon Dioxide BUN Creatinine Glucose POC Glucose 160 H 177 H Lactic Acid Calcium Total Bilirubin AST ALT Total Creatine Kinase CK-MB (CK-2) CK-MB (CK-2) Rel Index Troponin T C-Reactive Protein NT-Pro-B Natriuret Pep 25526 H Total Protein Albumin LDL Cholesterol Direct Urine WBC (Auto) 08/23/18 08/23/18 08/23/18 12:36 14:24 18:05 WBC RBC Hgb Hct MCV RDW Plt Count Seg Neuts % (Manual) Lymphocytes % (Manual) Monocytes % (Manual) Nucleated RBC % Seg Neutrophils # Man Lymphocytes # (Manual) Monocytes # (Manual) PT INR D-Dimer POC ABG pH 7.337 L POC ABG pCO2 POC ABG pO2 145 H Sodium 136 L Potassium 5.2 H Chloride Carbon Dioxide BUN 76 H Creatinine 4.2 H Glucose 158 H POC Glucose 169 H Lactic Acid Calcium 8.1 L Total Bilirubin AST ALT Total Creatine Kinase CK-MB (CK-2) CK-MB (CK-2) Rel Index Troponin T C-Reactive Protein NT-Pro-B Natriuret Pep Total Protein Albumin LDL Cholesterol Direct Urine WBC (Auto) 08/23/18 08/23/18 08/24/18 22:43 23:42 05:16 WBC RBC Hgb Hct MCV RDW Plt Count Seg Neuts % (Manual) Lymphocytes % (Manual) Monocytes % (Manual) Nucleated RBC % Seg Neutrophils # Man Lymphocytes # (Manual) Monocytes # (Manual) PT INR D-Dimer POC ABG pH POC ABG pCO2 POC ABG pO2 Sodium 136 L Potassium 5.3 H 5.2 H Chloride 97.9 L Carbon Dioxide BUN 80 H 86 H Creatinine 4.0 H 4.3 H Glucose 164 H 202 H POC Glucose 183 H Lactic Acid Calcium 7.9 L Total Bilirubin AST ALT Total Creatine Kinase CK-MB (CK-2) CK-MB (CK-2) Rel Index Troponin T C-Reactive Protein NT-Pro-B Natriuret Pep Total Protein Albumin LDL Cholesterol Direct Urine WBC (Auto) 08/24/18 08/24/18 08/24/18 05:21 05:29 10:10 WBC RBC 2.47 L Hgb 7.5 L Hct 23.3 L MCV RDW 17.5 H Plt Count 118 L Seg Neuts % (Manual) 92.0 H Lymphocytes % (Manual) 2.0 L Monocytes % (Manual) Nucleated RBC % Seg Neutrophils # Man 8.8 H Lymphocytes # (Manual) 0.2 L Monocytes # (Manual) PT INR D-Dimer POC ABG pH 7.243 L POC ABG pCO2 56.8 H POC ABG pO2 Sodium Potassium Chloride Carbon Dioxide BUN Creatinine Glucose POC Glucose 209 H Lactic Acid Calcium Total Bilirubin AST ALT Total Creatine Kinase CK-MB (CK-2) CK-MB (CK-2) Rel Index Troponin T C-Reactive Protein NT-Pro-B Natriuret Pep Total Protein Albumin LDL Cholesterol Direct Urine WBC (Auto) 08/24/18 08/24/18 08/24/18 10:10 11:19 13:41 WBC RBC Hgb Hct MCV RDW Plt Count Seg Neuts % (Manual) Lymphocytes % (Manual) Monocytes % (Manual) Nucleated RBC % Seg Neutrophils # Man Lymphocytes # (Manual) Monocytes # (Manual) PT INR D-Dimer 1978.25 H POC ABG pH POC ABG pCO2 POC ABG pO2 Sodium Potassium Chloride Carbon Dioxide BUN Creatinine Glucose POC Glucose 212 H Lactic Acid Calcium Total Bilirubin AST ALT Total Creatine Kinase CK-MB (CK-2) CK-MB (CK-2) Rel Index Troponin T C-Reactive Protein NT-Pro-B Natriuret Pep 51525 H Total Protein Albumin LDL Cholesterol Direct Urine WBC (Auto) 08/24/18 08/24/18 08/24/18 13:41 14:27 17:23 WBC RBC Hgb Hct MCV RDW Plt Count Seg Neuts % (Manual) Lymphocytes % (Manual) Monocytes % (Manual) Nucleated RBC % Seg Neutrophils # Man Lymphocytes # (Manual) Monocytes # (Manual) PT INR D-Dimer POC ABG pH POC ABG pCO2 POC ABG pO2 Sodium 136 L Potassium 5.1 H Chloride 97.8 L Carbon Dioxide BUN 90 H Creatinine 4.1 H Glucose 157 H POC Glucose 155 H Lactic Acid Calcium 8.0 L Total Bilirubin AST ALT Total Creatine Kinase CK-MB (CK-2) CK-MB (CK-2) Rel Index Troponin T C-Reactive Protein 9.00 H NT-Pro-B Natriuret Pep Total Protein Albumin LDL Cholesterol Direct Urine WBC (Auto) 08/25/18 08/25/18 08/25/18 00:38 05:22 05:57 WBC RBC Hgb Hct MCV RDW Plt Count Seg Neuts % (Manual) Lymphocytes % (Manual) Monocytes % (Manual) Nucleated RBC % Seg Neutrophils # Man Lymphocytes # (Manual) Monocytes # (Manual) PT INR D-Dimer POC ABG pH 7.238 L POC ABG pCO2 58.2 H POC ABG pO2 Sodium Potassium 5.4 H Chloride Carbon Dioxide BUN 98 H Creatinine 4.3 H Glucose 217 H POC Glucose 176 H Lactic Acid Calcium 8.3 L Total Bilirubin AST ALT Total Creatine Kinase CK-MB (CK-2) CK-MB (CK-2) Rel Index Troponin T C-Reactive Protein NT-Pro-B Natriuret Pep 40829 H Total Protein Albumin LDL Cholesterol Direct Urine WBC (Auto) 08/25/18 08/25/18 08/25/18 06:56 08:59 11:38 WBC RBC Hgb Hct MCV RDW Plt Count Seg Neuts % (Manual) Lymphocytes % (Manual) Monocytes % (Manual) Nucleated RBC % Seg Neutrophils # Man Lymphocytes # (Manual) Monocytes # (Manual) PT INR D-Dimer POC ABG pH 7.348 L POC ABG pCO2 48.6 H POC ABG pO2 Sodium Potassium Chloride Carbon Dioxide BUN Creatinine Glucose POC Glucose 247 H 235 H Lactic Acid Calcium Total Bilirubin AST ALT Total Creatine Kinase CK-MB (CK-2) CK-MB (CK-2) Rel Index Troponin T C-Reactive Protein NT-Pro-B Natriuret Pep Total Protein Albumin LDL Cholesterol Direct Urine WBC (Auto) 08/25/18 08/25/18 08/25/18 12:29 16:43 16:43 WBC 14.7 H RBC 2.90 L Hgb 8.9 L Hct 27.4 L MCV 95 H RDW 17.3 H Plt Count 119 L Seg Neuts % (Manual) 94.0 H Lymphocytes % (Manual) 2.0 L Monocytes % (Manual) Nucleated RBC % Seg Neutrophils # Man 13.8 H Lymphocytes # (Manual) 0.3 L Monocytes # (Manual) PT 15.6 H INR 1.27 H D-Dimer POC ABG pH POC ABG pCO2 POC ABG pO2 Sodium Potassium Chloride Carbon Dioxide BUN Creatinine Glucose POC Glucose 237 H Lactic Acid Calcium Total Bilirubin AST ALT Total Creatine Kinase CK-MB (CK-2) CK-MB (CK-2) Rel Index Troponin T C-Reactive Protein NT-Pro-B Natriuret Pep Total Protein Albumin LDL Cholesterol Direct Urine WBC (Auto) 08/25/18 08/26/18 08/26/18 17:22 00:16 04:56 WBC RBC Hgb Hct MCV RDW Plt Count Seg Neuts % (Manual) Lymphocytes % (Manual) Monocytes % (Manual) Nucleated RBC % Seg Neutrophils # Man Lymphocytes # (Manual) Monocytes # (Manual) PT INR D-Dimer POC ABG pH POC ABG pCO2 45.2 H POC ABG pO2 Sodium Potassium Chloride Carbon Dioxide BUN Creatinine Glucose POC Glucose 200 H 180 H Lactic Acid Calcium Total Bilirubin AST ALT Total Creatine Kinase CK-MB (CK-2) CK-MB (CK-2) Rel Index Troponin T C-Reactive Protein NT-Pro-B Natriuret Pep Total Protein Albumin LDL Cholesterol Direct Urine WBC (Auto) 08/26/18 08/26/18 08/26/18 05:53 06:20 08:48 WBC RBC Hgb Hct MCV RDW Plt Count Seg Neuts % (Manual) Lymphocytes % (Manual) Monocytes % (Manual) Nucleated RBC % Seg Neutrophils # Man Lymphocytes # (Manual) Monocytes # (Manual) PT INR D-Dimer POC ABG pH POC ABG pCO2 POC ABG pO2 Sodium Potassium Chloride Carbon Dioxide BUN 106 H Creatinine 3.9 H Glucose 137 H POC Glucose 131 H 126 H Lactic Acid Calcium 8.1 L Total Bilirubin AST ALT Total Creatine Kinase CK-MB (CK-2) CK-MB (CK-2) Rel Index Troponin T C-Reactive Protein NT-Pro-B Natriuret Pep > 33523 H Total Protein Albumin LDL Cholesterol Direct Urine WBC (Auto) 08/26/18 08/26/18 08/26/18 11:39 17:33 18:02 WBC RBC Hgb Hct MCV RDW Plt Count Seg Neuts % (Manual) Lymphocytes % (Manual) Monocytes % (Manual) Nucleated RBC % Seg Neutrophils # Man Lymphocytes # (Manual) Monocytes # (Manual) PT INR D-Dimer POC ABG pH POC ABG pCO2 POC ABG pO2 58 L Sodium Potassium Chloride Carbon Dioxide BUN Creatinine Glucose POC Glucose 156 H 173 H Lactic Acid Calcium Total Bilirubin AST ALT Total Creatine Kinase CK-MB (CK-2) CK-MB (CK-2) Rel Index Troponin T C-Reactive Protein NT-Pro-B Natriuret Pep Total Protein Albumin LDL Cholesterol Direct Urine WBC (Auto) 08/26/18 08/27/18 08/27/18 23:12 04:59 11:51 WBC RBC Hgb Hct MCV RDW Plt Count Seg Neuts % (Manual) Lymphocytes % (Manual) Monocytes % (Manual) Nucleated RBC % Seg Neutrophils # Man Lymphocytes # (Manual) Monocytes # (Manual) PT INR D-Dimer POC ABG pH 7.563 H POC ABG pCO2 < 30 L POC ABG pO2 69 L Sodium Potassium Chloride Carbon Dioxide BUN Creatinine Glucose POC Glucose 130 H 107 H Lactic Acid Calcium Total Bilirubin AST ALT Total Creatine Kinase CK-MB (CK-2) CK-MB (CK-2) Rel Index Troponin T C-Reactive Protein NT-Pro-B Natriuret Pep Total Protein Albumin LDL Cholesterol Direct Urine WBC (Auto) 08/27/18 08/27/18 08/27/18 11:58 11:58 11:58 WBC RBC 2.66 L Hgb 8.1 L Hct 24.7 L MCV RDW 16.7 H Plt Count Seg Neuts % (Manual) Lymphocytes % (Manual) Monocytes % (Manual) Nucleated RBC % Seg Neutrophils # Man Lymphocytes # (Manual) Monocytes # (Manual) PT INR D-Dimer POC ABG pH POC ABG pCO2 POC ABG pO2 Sodium Potassium Chloride Carbon Dioxide BUN 71 H Creatinine 2.9 H Glucose POC Glucose Lactic Acid Calcium 7.6 L Total Bilirubin AST ALT Total Creatine Kinase CK-MB (CK-2) CK-MB (CK-2) Rel Index Troponin T C-Reactive Protein NT-Pro-B Natriuret Pep > 61563 H Total Protein 6.1 L Albumin 2.4 L LDL Cholesterol Direct Urine WBC (Auto) 08/28/18 08/28/18 08/28/18 04:38 04:49 04:49 WBC RBC 2.65 L Hgb 8.3 L Hct 25.3 L MCV 96 H RDW 17.3 H Plt Count 83 L Seg Neuts % (Manual) Lymphocytes % (Manual) Monocytes % (Manual) Nucleated RBC % Seg Neutrophils # Man Lymphocytes # (Manual) Monocytes # (Manual) PT INR D-Dimer POC ABG pH POC ABG pCO2 POC ABG pO2 112 H Sodium Potassium Chloride Carbon Dioxide BUN Creatinine Glucose POC Glucose Lactic Acid Calcium Total Bilirubin AST ALT Total Creatine Kinase CK-MB (CK-2) CK-MB (CK-2) Rel Index Troponin T C-Reactive Protein NT-Pro-B Natriuret Pep > 03655 H Total Protein Albumin LDL Cholesterol Direct Urine WBC (Auto) 08/28/18 08/28/18 08/29/18 04:49 14:24 00:11 WBC RBC Hgb Hct MCV RDW Plt Count Seg Neuts % (Manual) Lymphocytes % (Manual) Monocytes % (Manual) Nucleated RBC % Seg Neutrophils # Man Lymphocytes # (Manual) Monocytes # (Manual) PT INR D-Dimer POC ABG pH 7.278 L POC ABG pCO2 57.9 H POC ABG pO2 79 L Sodium Potassium Chloride Carbon Dioxide BUN 69 H Creatinine 2.4 H Glucose POC Glucose 171 H Lactic Acid Calcium 7.7 L Total Bilirubin AST ALT Total Creatine Kinase CK-MB (CK-2) CK-MB (CK-2) Rel Index Troponin T C-Reactive Protein NT-Pro-B Natriuret Pep Total Protein 5.4 L Albumin 2.2 L LDL Cholesterol Direct Urine WBC (Auto) 07/04/1808/29/18 08/29/18 04:39 05:35 05:35 WBC 13.6 H RBC 3.09 L Hgb 9.4 L Hct 29.5 L MCV 96 H RDW 17.9 H Plt Count 127 L Seg Neuts % (Manual) Lymphocytes % (Manual) Monocytes % (Manual) Nucleated RBC % Seg Neutrophils # Man Lymphocytes # (Manual) Monocytes # (Manual) PT INR D-Dimer POC ABG pH 7.312 L POC ABG pCO2 57.6 H POC ABG pO2 79 L Sodium Potassium Chloride Carbon Dioxide BUN 42 H Creatinine 1.9 H Glucose 107 H POC Glucose Lactic Acid Calcium Total Bilirubin AST ALT Total Creatine Kinase CK-MB (CK-2) CK-MB (CK-2) Rel Index Troponin T C-Reactive Protein NT-Pro-B Natriuret Pep Total Protein Albumin LDL Cholesterol Direct Urine WBC (Auto) 08/29/18 08/29/18 08/29/18 05:48 11:37 15:32 WBC RBC Hgb Hct MCV RDW Plt Count Seg Neuts % (Manual) Lymphocytes % (Manual) Monocytes % (Manual) Nucleated RBC % Seg Neutrophils # Man Lymphocytes # (Manual) Monocytes # (Manual) PT INR D-Dimer POC ABG pH POC ABG pCO2 47.0 H POC ABG pO2 78 L Sodium Potassium Chloride Carbon Dioxide BUN Creatinine Glucose POC Glucose 114 H 116 H Lactic Acid Calcium Total Bilirubin AST ALT Total Creatine Kinase CK-MB (CK-2) CK-MB (CK-2) Rel Index Troponin T C-Reactive Protein NT-Pro-B Natriuret Pep Total Protein Albumin LDL Cholesterol Direct Urine WBC (Auto) 08/29/18 08/30/18 08/30/18 17:28 00:17 04:41 WBC RBC Hgb Hct MCV RDW Plt Count Seg Neuts % (Manual) Lymphocytes % (Manual) Monocytes % (Manual) Nucleated RBC % Seg Neutrophils # Man Lymphocytes # (Manual) Monocytes # (Manual) PT INR D-Dimer POC ABG pH POC ABG pCO2 48.1 H POC ABG pO2 Sodium Potassium Chloride Carbon Dioxide BUN Creatinine Glucose POC Glucose 174 H 132 H Lactic Acid Calcium Total Bilirubin AST ALT Total Creatine Kinase CK-MB (CK-2) CK-MB (CK-2) Rel Index Troponin T C-Reactive Protein NT-Pro-B Natriuret Pep Total Protein Albumin LDL Cholesterol Direct Urine WBC (Auto) 08/30/18 08/30/18 08/30/18 05:17 05:34 06:10 WBC RBC 2.68 L Hgb 8.2 L Hct 25.6 L MCV 96 H RDW 17.2 H Plt Count 118 L Seg Neuts % (Manual) Lymphocytes % (Manual) Monocytes % (Manual) Nucleated RBC % Seg Neutrophils # Man Lymphocytes # (Manual) Monocytes # (Manual) PT INR D-Dimer POC ABG pH POC ABG pCO2 POC ABG pO2 Sodium Potassium Chloride Carbon Dioxide BUN 54 H Creatinine 2.4 H Glucose 120 H POC Glucose 141 H Lactic Acid Calcium Total Bilirubin AST ALT Total Creatine Kinase CK-MB (CK-2) CK-MB (CK-2) Rel Index Troponin T C-Reactive Protein NT-Pro-B Natriuret Pep Total Protein Albumin LDL Cholesterol Direct Urine WBC (Auto) 08/30/18 08/30/18 08/30/18 13:11 18:11 23:55 WBC RBC Hgb Hct MCV RDW Plt Count Seg Neuts % (Manual) Lymphocytes % (Manual) Monocytes % (Manual) Nucleated RBC % Seg Neutrophils # Man Lymphocytes # (Manual) Monocytes # (Manual) PT INR D-Dimer POC ABG pH POC ABG pCO2 POC ABG pO2 Sodium Potassium Chloride Carbon Dioxide BUN Creatinine Glucose POC Glucose 167 H 144 H 144 H Lactic Acid Calcium Total Bilirubin AST ALT Total Creatine Kinase CK-MB (CK-2) CK-MB (CK-2) Rel Index Troponin T C-Reactive Protein NT-Pro-B Natriuret Pep Total Protein Albumin LDL Cholesterol Direct Urine WBC (Auto) 08/31/18 08/31/18 08/31/18 05:07 05:07 05:44 WBC RBC 2.62 L Hgb 8.1 L Hct 25.0 L MCV 96 H RDW 17.5 H Plt Count 128 L Seg Neuts % (Manual) Lymphocytes % (Manual) Monocytes % (Manual) Nucleated RBC % Seg Neutrophils # Man Lymphocytes # (Manual) Monocytes # (Manual) PT INR D-Dimer POC ABG pH POC ABG pCO2 POC ABG pO2 Sodium Potassium Chloride Carbon Dioxide BUN 58 H Creatinine 2.3 H Glucose 103 H POC Glucose 109 H Lactic Acid Calcium Total Bilirubin AST ALT Total Creatine Kinase CK-MB (CK-2) CK-MB (CK-2) Rel Index Troponin T C-Reactive Protein NT-Pro-B Natriuret Pep Total Protein Albumin LDL Cholesterol Direct Urine WBC (Auto) Chest x-ray: image reviewed Allied health notes reviewed: RT
[2018-08-31] MEDS: DUONEB *Not for PRN Use IH SCH ×2 (08:56→20:45)
[2018-08-31] MEDS: BROVANA NEBU IH SCH ×2 (08:56→20:45)
[2018-08-31] MEDS: PULMICORT IH SCH ×2 (08:56→20:45)
--- NOTE | 2018-08-31 09:10 | Progress Note ---
Assessment and Plan Assessment and plan: Patient is a 73 yo man with a history of hypertension, CKD 3, chronic respiratory failure on 2 liters of O2 due to end stage COPD, diabetes, GITA and colon cancer who presented to [facility] ED on 08/21/18 due to SOB, hallucinating and then became combative, pulling off his CPAP. He was just discharge from [place] at the end on June for COPD. Patient became unresponsive en route. EMS unable to intubate. Pt was bagged with 100%. When he arrived at the entrance of the hospital. he lost his pulse. Patient found in PEA. He was successfully intubated and resuscitated in ED with CPR/ACLS and 2 rounds of epi with ROSC. He was also in ARF with hyperkalemia, right femoral Vas cath placed and hemodialysis started on 08/26/18. He continue to improve and was extubated on 08/30/2018. He passed his swallow evaluation on 08/31/18 and diet started. Acute on chronic hypoxic respiratory failure >96 hours ETT: extubated on 08/30/18, doing better, still requiring O2 KHRIS secondary to ATN and vasomotor nephropathy, poa acute on chronic kidney disease 3: on HD, Nephrology following, Dialysis started, Femoral vas cath placed 08/26/18- to be changed to permacath Acute COPD exacerbation-POA: continue to treat with nebs, o2, abx until completion Pneumonia, HCAP-PRESUMED GNR: treated with ABX, ID is following Acute Metabolic Encephalopathy resolving Cardiac arrest-POA, successfully resuscitated, resolved Bowel illeus- Resolved, Surgery input noted, they have signed off Severe Sepsis- Resolved LEFT TMJ JOINT DISLOCATION-POA: need Oral Facial Maxillary surgeon, not available here Acute systolic Heart failure-POA/Type 2 HI/CARDIOMYOPATHY and Abnormal cardiac enzymes: Cardiology consulted, input noted, they have signed off Elevated D.DIMER, Venous leg doppler negative for DVT: Pulmonology is following Hyperkalemia resolved:monitor bmp closely Anemia ?acute blood loss: follow CBC closely Thrombocytopenia; monitoring CBC Myoclonic seziures: EEG ordered, Neurology managing Hypoxic ischemic Encephalopathy Liver disease: monitor CMP GITA; on CPAP at night, Colon cancer BY HX Morbidly obese, bmi 52: [employer] consulted [facility] Transfer to telemetry CCT 32 minutes History Interval history: Patient was seen and examined. Follow-up on current diagnosis of Respiratory failure. No overnight events reported to me. Imaging, nursing note, chart, labs and old chart reviewed. Discussed with patient, and son at bedside. Extubated on 08/30/18 Hospitalist Physical - Physical exam Narrative exam: Gen: deconditioned, nad, extubated, talking, awake and alert HEENT: NCAT, EOMI, PERRL, OP Clear Neck: supple, no adenopathy, no thyromegaly, no JVD CVS/Heart: RRR, normal S1S2, pulses present bilaterally Chest/Lungs: diminished bs bilaterally, Symmetrical chest expansion, good air entry bilaterally GI/Abdomen: soft, NTND, good bowel sounds, no guarding or rebound /Bladder: no suprapubic tenderness, no CVA or paraspinal tenderness Extermity/Skin: dependent edema x 4 MSK: moving all extermities Neuro: no obvious focal deficits, equal strength. Psych: calm - Constitutional Vitals: Temp Pulse Resp BP Pulse Ox 98.0 F 68 16 173/51 96 08/31/18 07:57 08/31/18 08:56 08/31/18 08:56 08/31/18 07:44 08/31/18 08:54 General appearance: Present: other (intubated, chronically ill appearing) Results - Labs CBC & Chem 7: 08/31/18 05:07 08/31/18 05:07 Labs: Laboratory Last Values WBC 8.4 K/mm3 (4.5-11.0) 08/31/18 05:07 RBC 2.62 M/mm3 (3.65-5.03) L 08/31/18 05:07 Hgb 8.1 gm/dl (11.8-15.2) L 08/31/18 05:07 Hct 25.0 % (35.5-45.6) L 08/31/18 05:07 MCV 96 fl (84-94) H 08/31/18 05:07 MCH 31 pg (28-32) 08/31/18 05:07 MCHC 32 % (32-34) 08/31/18 05:07 RDW 17.5 % (13.2-15.2) H 08/31/18 05:07 Plt Count 128 K/mm3 (140-440) L 08/31/18 05:07 Lymph % (Auto) Tray Checker 08/25/18 16:43 [place] % (Auto) Tray Checker 08/25/18 16:43 Eos % (Auto) Tray Checker 08/25/18 16:43 Baso % (Auto) Tray Checker 08/25/18 16:43 Lymph # Tray Checker 08/25/18 16:43 [place] # Tray Checker 08/25/18 16:43 Eos # Tray Checker 08/25/18 16:43 Baso # Tray Checker 08/25/18 16:43 Add Manual Diff Complete 08/25/18 16:43 Total Counted 100 08/25/18 16:43 Seg Neutrophils % Tray Checker 08/25/18 16:43 Seg Neuts % (Manual) 94.0 % (40.0-70.0) H 08/25/18 16:43 2.0 % 08/25/18 16:43 2.0 % (13.4-35.0) L 08/25/18 16:43 Reactive Lymphs % (Man) 0 % 08/25/18 16:43 2.0 % (0.0-7.3) 08/25/18 16:43 0 % (0.0-4.3) 08/25/18 16:43 0 % (0.0-1.8) 08/25/18 16:43 0 % 08/25/18 16:43 0 % 08/25/18 16:43 0 % 08/25/18 16:43 0 % 08/25/18 16:43 Nucleated RBC % Not Reportable 08/25/18 16:43 Seg Neutrophils # Tray Checker 08/25/18 16:43 Seg Neutrophils # Man 13.8 K/mm3 (1.8-7.7) H 08/25/18 16:43 Band Neutrophils # 0.3 K/mm3 08/25/18 16:43 0.3 K/mm3 (1.2-5.4) L 08/25/18 16:43 Abs React Lymphs (Man) 0.0 K/mm3 08/25/18 16:43 0.3 K/mm3 (0.0-0.8) 08/25/18 16:43 0.0 K/mm3 (0.0-0.4) 08/25/18 16:43 0.0 K/mm3 (0.0-0.1) 08/25/18 16:43 0.0 K/mm3 08/25/18 16:43 0.0 K/mm3 08/25/18 16:43 0.0 K/mm3 08/25/18 16:43 Blast Cells # 0.0 K/mm3 08/25/18 16:43 WBC Morphology Not Reportable 08/25/18 16:43 Hypersegmented Neuts Not Reportable 08/25/18 16:43 Hyposegmented Neuts Not Reportable 08/25/18 16:43 Hypogranular Neuts Not Reportable 08/25/18 16:43 Not Reportable 08/25/18 16:43 Not Reportable 08/25/18 16:43 Not Reportable 08/25/18 16:43 Not Reportable 08/25/18 16:43 Not Reportable 08/25/18 16:43 Not Reportable 08/25/18 16:43 Consistent w auto 08/25/18 16:43 Not Reportable 08/25/18 16:43 Plt Clumps, EDTA Not Reportable 08/25/18 16:43 Not Reportable 08/25/18 16:43 Not Reportable 08/25/18 16:43 Not Reportable 08/25/18 16:43 Plt Morphology Comment Not Reportable 08/25/18 16:43 RBC Morphology Not Reportable 08/25/18 16:43 Dimorphic RBCs Not Reportable 08/25/18 16:43 Not Reportable 08/25/18 16:43 1+ 08/25/18 16:43 Few 08/25/18 16:43 1+ 08/25/18 16:43 Not Reportable 08/25/18 16:43 Not Reportable 08/25/18 16:43 Not Reportable 08/25/18 16:43 Not Reportable 08/25/18 16:43 Not Reportable 08/25/18 16:43 Not Reportable 08/25/18 16:43 Not Reportable 08/25/18 16:43 Few 08/25/18 16:43 Not Reportable 08/25/18 16:43 Not Reportable 08/25/18 16:43 Not Reportable 08/25/18 16:43 Not Reportable 08/25/18 16:43 Not Reportable 08/25/18 16:43 Not Reportable 08/25/18 16:43 Not Reportable 08/25/18 16:43 Acanthocytes (Spur) Not Reportable 08/25/18 16:43 Rouleaux Not Reportable 08/25/18 16:43 Not Reportable 08/25/18 16:43 Not Reportable 08/25/18 16:43 Not Reportable 08/25/18 16:43 Not Reportable 08/25/18 16:43 Hem Pathologist Commnt No 08/25/18 16:43 PT 15.6 Sec. (12.2-14.9) H 08/25/18 16:43 INR 1.27 (0.87-1.13) H 08/25/18 16:43 APTT 30.8 Sec. (24.2-36.6) 08/21/18 04:42 1978.25 ng/mlDDU (0-234) H 08/24/18 13:41 POC ABG pH 7.410 (7.35-7.45) 08/30/18 13:35 POC ABG pCO2 41.4 (35-45) 08/30/18 13:35 POC ABG pO2 99 (80-105) 08/30/18 13:35 POC ABG HCO3 26.2 (22-26 mml/L) 08/30/18 13:35 POC ABG Total CO2 27 (23-27mmol/L) 08/30/18 13:35 POC ABG O2 Sat 98 08/30/18 13:35 POC ABG Base Excess 2 ((-2) - (+3)mmol/L) 08/30/18 13:35 30 % 08/30/18 13:35 Sodium 145 mmol/L (137-145) 08/31/18 05:07 Potassium 3.9 mmol/L (3.6-5.0) 08/31/18 05:07 Chloride 106.2 mmol/L (98-107) 08/31/18 05:07 Carbon Dioxide 27 mmol/L (22-30) 08/31/18 05:07 16 mmol/L 08/31/18 05:07 BUN 58 mg/dL (9-20) H 08/31/18 05:07 2.3 mg/dL (0.8-1.5) H 08/31/18 05:07 Estimated GFR 28 ml/min 08/31/18 05:07 25 % 08/31/18 05:07 Glucose 103 mg/dL (75-100) H 08/31/18 05:07 POC Glucose 109 (70-105) H 08/31/18 05:44 Lactic Acid 1.30 mmol/L (0.7-2.0) 08/21/18 20:50 Calcium 8.5 mg/dL (8.4-10.2) 08/31/18 05:07 Magnesium 2.30 mg/dL (1.7-2.3) 08/23/18 14:24 0.60 mg/dL (0.1-1.2) 08/28/18 04:49 AST 27 units/L (5-40) 08/28/18 04:49 ALT 12 units/L (7-56) 08/28/18 04:49 87 units/L (35-129) 08/28/18 04:49 222 units/L (55-170) H 08/21/18 10:45 CK-MB (CK-2) 9.2 ng/mL (0.0-4.0) H 08/21/18 10:45 CK-MB (CK-2) Rel Index 4.1 (0-4) H 08/21/18 10:45 0.044 ng/mL (0.00-0.029) H D 08/21/18 10:45 9.00 mg/dL (0.00-1.30) H 08/24/18 13:41 NT-Pro-B Natriuret Pep > 25128 pg/mL (0-900) H 08/28/18 04:49 5.4 g/dL (6.3-8.2) L 08/28/18 04:49 2.2 g/dL (3.9-5) L 08/28/18 04:49 0.7 % 08/28/18 04:49 Triglycerides 87 mg/dL (2-149) 08/21/18 04:42 Cholesterol 93 mg/dL (50-199) 08/21/18 04:42 44 mg/dL (50-130) L 08/21/18 04:42 41 mg/dL (40-59) 08/21/18 04:42 2.26 % 08/21/18 04:42 Yellow (Yellow) 08/21/18 15:03 Slightly-cloudy (Clear) 08/21/18 15:03 5.0 (5.0-7.0) 08/21/18 15:03 Ur Specific [place] 1.015 (1.003-1.030) 08/21/18 15:03 30 mg/dl mg/dL (Negative) 08/21/18 15:03 Neg mg/dL (Negative) 08/21/18 15:03 Neg mg/dL (Negative) 08/21/18 15:03 Mod (Negative) 08/21/18 15:03 Neg (Negative) 08/21/18 15:03 Neg (Negative) 08/21/18 15:03 < 2.0 mg/dL (<2.0) 08/21/18 15:03 Ur Leukocyte Esterase Tr (Negative) 08/21/18 15:03 13.0 /HPF (0.0-6.0) H 08/21/18 15:03 15.0 /HPF (0.0-6.0) 08/21/18 15:03 U Epithel Cells (Auto) 1.0 /HPF (0-13.0) 08/21/18 15:03 1+ /HPF (Negative) 08/21/18 15:03 Few /HPF 08/21/18 15:03 Random Vancomycin 10.5 ug/mL (0-40.0) 08/26/18 05:53 Hepatitis A IgM Ab Non-reactive (NonReactive) 08/27/18 23:25 Hep Bs Antigen Non-reactive (Negative) 08/27/18 23:25 Hep B Core IgM Ab Non-reactive (NonReactive) 08/27/18 23:25 Non-reactive (NonReactive) 08/27/18 23:25 Active Medications - Current Medications Current Medications: Generic Name Dose Route Start Last Admin Trade Name Freq PRN Reason Stop Dose Admin Acetaminophen 650 mg 08/21/18 06:31 Tylenol PO Q4H PRN Pain MILD(1-3)/Fever >100.5/COOK Acetaminophen 650 mg 08/21/18 06:31 Tylenol OR Q4H PRN Pain MILD(1-3)/Fever >100.5/COOK Albuterol/Ipratropium 1 ampul 08/24/18 20:00 08/31/18 08:56 Duoneb *Not For Prn Use* IH 1 ampul BIDRT LUIS Administration Lipase/Protease/Amylase 1 each 08/26/18 12:07 [place] 10,500 Unit FEEDTUBE PRN PRN For Clogged Feeding Tube Arformoterol Tartrate 15 mcg 08/24/18 20:00 08/31/18 08:56 Brovana Nebu IH 15 mcg Q12HRT LUIS Administration Bisacodyl 10 mg 08/25/18 16:00 08/30/18 11:12 Dulcolax OR Not Given QDAY LUIS Budesonide 0.5 mg 08/24/18 20:00 08/31/18 08:56 Pulmicort IH 0.5 mg Q12HRT LUIS Administration Dextrose 50 ml 08/21/18 06:48 D50w (25gm) Syringe IV PRN PRN Hypoglycemia Famotidine 20 mg 08/25/18 10:00 08/30/18 11:12 Pepcid IV 20 mg DAILY LUIS Administration Fentanyl 50 mcg 08/26/18 16:26 Sublimaze IV Q10MIN PRN ANALGESIA Heparin Sodium (Porcine) 5,000 unit 08/22/18 10:00 08/30/18 22:27 Heparin SUB-Q 5,000 unit Q12HR LUIS Administration Hydralazine HCl 10 mg 08/30/18 18:31 08/31/18 07:44 Apresoline IV 09/01/18 18:30 10 mg Q4HR PRN Administration Blood Pressure Hydralazine HCl 25 mg 08/30/18 22:00 08/31/18 07:38 Apresoline PO Not Given Q8HR LUIS Hydrophilic Ointment 1 applic 08/21/18 11:34 Vaseline Lip Therapy TP Q2HR PRN Dry Lips Midazolam HCl 100 mg/ Sodium 100 mls @ 2 mls/hr 08/21/18 15:00 08/24/18 18:21 Chloride IV 0 mg/hr TITR LUIS 0 mls/hr Titration Protocol 2 MG/HR Levetiracetam 750 mg/ Dextrose 107.5 mls @ 400 mls/hr 08/24/18 22:00 08/30/18 22:25 IV 400 mls/hr Q12HR LUIS Administration Propofol 1,000 mg in 100 mls @ 4.389 mls/hr 08/26/18 18:00 08/29/18 11:21 Diprivan 10 Mg/Ml IV 0 mcg/kg/min TITR LUIS 0 mls/hr Titration Protocol 5 MCG/KG/MIN Fentanyl Citrate 2,000 mcg in 100 mls @ 7.053 mls/hr 08/27/18 12:00 08/29/18 18:19 Fentanyl Drip Premix IV 0 mcg/kg/hr TITR LUIS 0 mls/hr Titration Protocol 1 MCG/KG/HR Cefazolin Sodium 2 gm/ Sodium 100 mls @ 200 mls/hr 08/29/18 18:00 08/30/18 18:37 Chloride IV 200 mls/hr QPM LUIS Administration Insulin Human Lispro 0 unit 08/21/18 12:00 08/31/18 07:38 Humalog SUB-Q Not Given Q6HR [facility] Protocol Metoclopramide HCl 10 mg 08/25/18 18:00 08/31/18 07:44 Reglan IV 10 mg Q12H LUIS Administration Midazolam HCl 2 mg 08/21/18 14:32 08/21/18 14:52 Versed IV 2 mg Q10MIN PRN Administration Sedation Morphine Sulfate 2 mg 08/26/18 14:24 08/30/18 01:40 Morphine IV 2 mg Q6H PRN Administration Pain, Moderate (4-6) Multi-Ingred Cream/Lotion/Oil/Oint 1 applic 08/21/18 11:34 Artificial Tears Ophth Oint OU Q4HR PRN Dry Eye(s) Ondansetron HCl 4 mg 08/21/18 06:31 Zofran IV Q8H PRN Nausea And Vomiting Polyethylene Glycol 17 gm 08/26/18 10:00 08/30/18 11:12 Miralax 3350 PO 17 gm QDAY LUIS Administration Simple Syrup 15 ml 08/26/18 12:07 Simple Syrup FEEDTUBE PRN PRN Hypoglycemia Simple Syrup 30 ml 08/26/18 12:07 Simple Syrup FEEDTUBE PRN PRN Hypoglycemia Sodium Bicarbonate 325 mg 08/26/18 12:07 Sodium Bicarbonate FEEDTUBE PRN PRN For Clogged Feeding Tube Sodium Chloride 10 ml 08/21/18 10:00 08/30/18 22:26 Sodium Chloride Flush Syringe 10 Ml IV 10 ml BID LUIS Administration Sodium Chloride 10 ml 08/21/18 06:31 Sodium Chloride Flush Syringe 10 Ml IV PRN PRN LINE FLUSH Nutrition/Malnutrition Assess - Dietary Evaluation Nutrition/Malnutrition Findings: Nutrition Notes Start: 08/21/18 16:58 Freq: Status: Active Protocol: Document 08/29/18 10:35 LP (Rec: 08/29/18 10:37 LP [id number]) Nutrition Notes Need for Assessment generated from: MD Order Initial or Follow up Brief Note Subjective/Other Information Consult for TF. Pt ok to increase TF to goal rate. Nutrition Intervention Nutrition Support: Nepro at 45ml/hr 150ml q4h flush Kcal 1,944 Protein (gm) 87 Fluid (mL) 785 Goal #1 TF tolerance Goal #2 Meet at least 80% of kcal and protein needs Anticipated Discharge Needs: Unable to determine at this time Follow-Up By: 09/01/18 Additional Comments Follow for TF tolerance
[2018-08-31] MEDS: PEPCID IV SCH (10:29)
[2018-08-31] MEDS: HEPARIN SUB-Q SCH ×2 (10:29→21:45)
[2018-08-31] MEDS: DULCOLAX PR SCH (10:29)
[2018-08-31] MEDS: SODIUM CHLORIDE FLUSH SYRINGE 10 ML IV SCH ×3 (10:30→21:46)
[2018-08-31] MEDS: MIRALAX 3350 PO SCH (10:30)
--- NOTE | 2018-08-31 11:16 | Progress Note ---
Assessment and Plan Cultures: 08/21/2018 Blood culture: CoNS, Diphtheroids Sputum cultures 08/21/2018 MSSA Urine cultures 08/21/2018 no growth Repeat blood cultures negative Assessment: 73 y/o male with a history of chronic kidney disease, liver disease, COPD, diabetes, GITA, colon cancer admitted on due to 4-day history of progressive shortness of breath and right neck/face edema and tenderness associated with poor po intake, patient became unresponsive en route. EMS unable to intubate. Pt bagged with 100%. Patient found in asystole at the ED receiving s/p CRP. 1) Severe Sepsis s/p arrest in the ED: resolved, lactate now normal. Etiology likely RLL pneumonia. 2) Pneumonia: likely HCAP (recent admission to [facility] for MRSA cellulitis?). CXR shows bilateral infiltrate with airspace disease on RLL. Sputum cultures 08/21/2018 MSSA. 3) CoNS and diphtheroids bacteremia: likely contaminant. Blood cultures 08/22/19 19 CoNS 2 of 4 bottles. TTE no vegetations, EF 40-45%. Repeat cultures negative. 4) Acute renal failure on CKD: renally adjust abx dosing. On intermittent dialysis per nephrology. 5) Penicillin allergy: ?unclear reaction. Tolerating Cefazolin. Recommendations: - Continue with Cefazolin IV, Day 7 of 7, stop after today's dose MD [facility] C: [phone] O: [phone] F: [phone] Subjective Date of service: 08/31/18 Principal diagnosis: s/p cardiac arrest; severe sepsis; acute hypoxemic- hypercapnic resp failure Interval history: Extubated. Feeling well. No fever. No rash. Objective - Exam Narrative Exam: Physical Exam: Constitutional: awake, alert. Obese Head, Ears, Nose: Normocephalic, atraumatic. External ears, nose normal. Eyes: Conjunctivae/corneas clear. No icterus. No ptosis. Neck: thick neck, supple, no meningeal signs Oral: no thrush Cardiovascular: S1, S2 normal. Respiratory: left clear, right side with few rhonchi GI: Soft, non-tender; bowel sounds normal. No peritoneal signs Musculoskeletal: trace pedal edema, no cyanosis. b/l LE hyperpigmentation Skin: No rash or abscess Hem/Lymphatic: No palpable cervical or supraclavicular nodes. No lymphangitis Psych: calm, no agitation Neurological: awake, answers questions, follows commands - Constitutional Vitals: Vital Signs Temp Pulse Resp BP Pulse Ox 98.0 F 67 16 173/51 96 08/31/18 07:57 08/31/18 09:28 08/31/18 09:28 08/31/18 07:44 08/31/18 08:54 Temperature -Last 24 Hours Temperature 98.0 F Temperature 98.7 F Temperature 98.8 F Temperature 98.6 F Temperature 98.9 F Temperature 98.6 F - Labs CBC & Chem 7: 08/31/18 05:07 08/31/18 05:07 Labs: Abnormal lab results 08/30/18 08/30/18 08/30/18 Range/Units 13:11 18:11 23:55 RBC (3.65-5.03) M/mm3 Hgb (11.8-15.2) gm/dl Hct (35.5-45.6) % MCV (84-94) fl RDW (13.2-15.2) % Plt Count (140-440) K/mm3 BUN (9-20) mg/dL Creatinine (0.8-1.5) mg/dL Glucose (75-100) mg/dL POC Glucose 167 H 144 H 144 H (70-105) 08/31/18 08/31/18 08/31/18 Range/Units 05:07 05:07 05:44 RBC 2.62 L (3.65-5.03) M/mm3 Hgb 8.1 L (11.8-15.2) gm/dl Hct 25.0 L (35.5-45.6) % MCV 96 H (84-94) fl RDW 17.5 H (13.2-15.2) % Plt Count 128 L (140-440) K/mm3 BUN 58 H (9-20) mg/dL Creatinine 2.3 H (0.8-1.5) mg/dL Glucose 103 H (75-100) mg/dL POC Glucose 109 H (70-105)
--- NOTE | 2018-08-31 11:29 | Progress Note ---
Subjective Principal diagnosis: s/p cardiac arrest; severe sepsis; acute hypoxemic- hypercapnic resp failure Interval history: Patient was seen today for follow-up on multiple renal related issues Events of this hospitalization noted Vitals labs intake output medications were reviewed Social history: Reviewed Allergies: Reviewed Family history: Reviewed Physical examination HEENT: Oral mucosa moist no pallor or icterus Neck: Supple no JVD Chest: Clear to auscultation anteriorly CVS: Regular rate and rhythm S1 and S2 heard Abdomen: Soft nontender no suprapubic masses no organomegaly appreciable Extremity: Dry skin less than 1+ peripheral edema Musculoskeletal: No joint effusion noted in knees and ankle Neurological: Alert awake Dermatology: No petechial rashes Psychiatry: No evidence of any agitation and aggression noted Assessment and plan; Acute kidney injury with underlying chronic kidney disease in a patient who has had cardiopulmonary arrest resulting in hypoxemia respiratory failure likely etiology for renal failure appears to be due to acute tubular necrosis: Severe Patient is currently nonoliguric there is some increase in creatinine May need gentle hydration, check osmolality uric acid to guide the fluid therapy Patient was initiated on renal replacement therapy will need daily monitoring of labs close follow-up on the renal function dialysis only on when necessary basis, Avoid any form of nephrotoxic medication continue with supportive care Multiple underlying comorbidities including cardiopulmonary arrest, lactic acidosis, COPD, non-ST elevation [place], diabetes Overall prognosis guarded to poor We'll continue to follow and make recommendation from renal standpoint Objective - Vital Signs Vital signs: Vital Signs - 12hr 08/31/18 08/31/18 08/31/18 00:00 01:00 02:00 Temperature 98.8 F Pulse Rate 70 64 67 Pulse Rate [ Anterior Bilateral Throughout] Pulse Rate [ 70 From Monitor] Respiratory 16 19 14 Rate Respiratory Rate [Anterior Bilateral Throughout] Blood Pressure 157/60 159/52 150/51 O2 Sat by Pulse 98 97 98 Oximetry 08/31/18 08/31/18 08/31/18 03:00 04:00 04:43 Temperature 98.7 F Pulse Rate 68 60 64 Pulse Rate [ Anterior Bilateral Throughout] Pulse Rate [ 60 From Monitor] Respiratory 15 12 17 Rate Respiratory Rate [Anterior Bilateral Throughout] Blood Pressure 161/53 155/52 155/52 O2 Sat by Pulse 99 98 98 Oximetry 08/31/18 08/31/18 08/31/18 05:00 06:00 07:00 Temperature Pulse Rate 65 64 61 Pulse Rate [ Anterior Bilateral Throughout] Pulse Rate [ From Monitor] Respiratory 14 16 14 Rate Respiratory Rate [Anterior Bilateral Throughout] Blood Pressure 167/50 177/48 173/63 O2 Sat by Pulse 99 99 97 Oximetry 08/31/18 08/31/18 08/31/18 07:44 07:57 08:54 Temperature 98.0 F Pulse Rate 70 Pulse Rate [ Anterior Bilateral Throughout] Pulse Rate [ From Monitor] Respiratory Rate Respiratory Rate [Anterior Bilateral Throughout] Blood Pressure 173/51 O2 Sat by Pulse 96 Oximetry 08/31/18 08/31/18 08:56 09:28 Temperature Pulse Rate Pulse Rate [ 68 67 Anterior Bilateral Throughout] Pulse Rate [ From Monitor] Respiratory Rate Respiratory 16 16 Rate [Anterior Bilateral Throughout] Blood Pressure O2 Sat by Pulse Oximetry - Lab 08/31/18 05:07 08/31/18 05:07 Most recent lab results Calcium 8.5 mg/dL (8.4-10.2) 08/31/18 05:07 Magnesium 2.30 mg/dL (1.7-2.3) 08/23/18 14:24 Medications & Allergies - Medications Allergies/Adverse Reactions: Allergies Penicillins Allergy (Verified 08/21/18 04:49) Unknown -cillins Allergy (Uncoded 08/21/18 04:49) Unknown Home Medications: Home Medications Medication Instructions Recorded Confirmed Last Taken Type AtorvaSTATin [Lipitor] 10 mg PO QHS 08/21/18 08/21/18 Unknown History Ferrous Sulfate [Feosol] 325 mg PO QDAY 08/21/18 08/21/18 Unknown History Melatonin [Melatonin 10MG CAP] 10 mg PO DAILY 08/21/18 08/21/18 Unknown History NIFEdipine [Nifedipine ER] 60 mg PO BID 08/21/18 08/21/18 Unknown History Sennosides Tab [Senokot] 1 tab PO HS 08/21/18 08/21/18 Unknown History Tamsulosin [Flomax] 2 cap PO HS 08/21/18 08/21/18 Unknown History Torsemide [Demadex] 20 mg PO DAILY 08/21/18 08/21/18 Unknown History Venlafaxine HCl [Venlafaxin ER] 75 mg PO QDAY 08/21/18 08/21/18 Unknown History buPROPion [Wellbutrin] 100 mg PO DAILY 08/21/18 08/21/18 Unknown History Active Medications: Generic Name Dose Route Start Last Admin Trade Name Freq PRN Reason Stop Dose Admin Acetaminophen 650 mg 08/21/18 06:31 Tylenol PO Q4H PRN Pain MILD(1-3)/Fever >100.5/COOK Acetaminophen 650 mg 08/21/18 06:31 Tylenol ND Q4H PRN Pain MILD(1-3)/Fever >100.5/COOK Albuterol/Ipratropium 1 ampul 08/24/18 20:00 08/31/18 08:56 Duoneb *Not For Prn Use* IH 1 ampul BIDRT LUSI Administration Lipase/Protease/Amylase 1 each 08/26/18 12:07 [place] 10,500 Unit FEEDTUBE PRN PRN For Clogged Feeding Tube Arformoterol Tartrate 15 mcg 08/24/18 20:00 08/31/18 08:56 Brovana Nebu IH 15 mcg Q12HRT LUIS Administration Bisacodyl 10 mg 08/25/18 16:00 08/31/18 10:29 Dulcolax ND Not Given QDAY LUIS Budesonide 0.5 mg 08/24/18 20:00 08/31/18 08:56 Pulmicort IH 0.5 mg Q12HRT LUIS Administration Dextrose 50 ml 08/21/18 06:48 D50w (25gm) Syringe IV PRN PRN Hypoglycemia Famotidine 20 mg 08/25/18 10:00 08/31/18 10:29 Pepcid IV 20 mg DAILY LUIS Administration Fentanyl 50 mcg 08/26/18 16:26 Sublimaze IV Q10MIN PRN ANALGESIA Heparin Sodium (Porcine) 5,000 unit 08/22/18 10:00 08/31/18 10:29 Heparin SUB-Q 5,000 unit Q12HR LUIS Administration Hydralazine HCl 10 mg 08/30/18 18:31 08/31/18 07:44 Apresoline IV 09/01/18 18:30 10 mg Q4HR PRN Administration Blood Pressure Hydralazine HCl 25 mg 08/30/18 22:00 08/31/18 07:38 Apresoline PO Not Given Q8HR LUIS Hydrophilic Ointment 1 applic 08/21/18 11:34 Vaseline Lip Therapy TP Q2HR PRN Dry Lips Midazolam HCl 100 mg/ Sodium 100 mls @ 2 mls/hr 08/21/18 15:00 08/24/18 18:21 Chloride IV 0 mg/hr TITR LUIS 0 mls/hr Titration Protocol 2 MG/HR Levetiracetam 750 mg/ Dextrose 107.5 mls @ 400 mls/hr 08/24/18 22:00 08/30/18 22:25 IV 400 mls/hr Q12HR LUIS Administration Propofol 1,000 mg in 100 mls @ 4.389 mls/hr 08/26/18 18:00 08/29/18 11:21 Diprivan 10 Mg/Ml IV 0 mcg/kg/min TITR LUIS 0 mls/hr Titration Protocol 5 MCG/KG/MIN Fentanyl Citrate 2,000 mcg in 100 mls @ 7.053 mls/hr 08/27/18 12:00 08/29/18 18:19 Fentanyl Drip Premix IV 0 mcg/kg/hr TITR LUIS 0 mls/hr Titration Protocol 1 MCG/KG/HR Cefazolin Sodium 2 gm/ Sodium 100 mls @ 200 mls/hr 08/29/18 18:00 08/30/18 18:37 Chloride IV 200 mls/hr QPM LUIS Administration Insulin Human Lispro 0 unit 08/21/18 12:00 08/31/18 07:38 Humalog SUB-Q Not Given Q6HR [facility] Protocol Metoclopramide HCl 10 mg 08/25/18 18:00 08/31/18 07:44 Reglan IV 10 mg Q12H LUIS Administration Midazolam HCl 2 mg 08/21/18 14:32 08/21/18 14:52 Versed IV 2 mg Q10MIN PRN Administration Sedation Morphine Sulfate 2 mg 08/26/18 14:24 08/30/18 01:40 Morphine IV 2 mg Q6H PRN Administration Pain, Moderate (4-6) Multi-Ingred Cream/Lotion/Oil/Oint 1 applic 08/21/18 11:34 Artificial Tears Ophth Oint OU Q4HR PRN Dry Eye(s) Ondansetron HCl 4 mg 08/21/18 06:31 Zofran IV Q8H PRN Nausea And Vomiting Polyethylene Glycol 17 gm 08/26/18 10:00 08/31/18 10:30 Miralax 3350 PO Not Given QDAY LUIS Simple Syrup 15 ml 08/26/18 12:07 Simple Syrup FEEDTUBE PRN PRN Hypoglycemia Simple Syrup 30 ml 08/26/18 12:07 Simple Syrup FEEDTUBE PRN PRN Hypoglycemia Sodium Bicarbonate 325 mg 08/26/18 12:07 Sodium Bicarbonate FEEDTUBE PRN PRN For Clogged Feeding Tube Sodium Chloride 10 ml 08/21/18 10:00 08/31/18 10:30 Sodium Chloride Flush Syringe 10 Ml IV 10 ml BID LUIS Administration Sodium Chloride 10 ml 08/21/18 06:31 Sodium Chloride Flush Syringe 10 Ml IV PRN PRN LINE FLUSH
[2018-08-31] MEDS: KEPPRA 750 MG in D5W 100 ML IV SCH ×2 (13:15→21:44)
[2018-08-31] MEDS: ceFAZolin 2 GM in NACL 0.9% 100 ML IV SCH (19:52)
[2018-09-01] MEDS: REGLAN IV SCH ×2 (06:29→21:12)
[2018-09-01] MEDS: APRESOLINE PO SCH ×3 (06:29→21:13)
[2018-09-01] MEDS: PULMICORT IH SCH ×2 (07:31→20:38)
[2018-09-01] MEDS: DUONEB *Not for PRN Use IH SCH ×2 (07:31→20:38)
[2018-09-01] MEDS: BROVANA NEBU IH SCH ×2 (07:32→20:38)
[2018-09-01] MEDS: HumaLOG SUB-Q SCH ×3 (08:40→17:45)
[2018-09-01 09:49] LABS: Hematocrit 25.8 % (35.5-45.6); Hemoglobin 8.6 gm/dl (11.8-15.2); Mean Corpuscular HGB Conc 33 % (32-34); Mean Corpuscular Hemoglobin 31 pg (28-32); Mean Corpuscular Volume 94 fl (84-94); Platelet Count 146 K/mm3 (140-440); Red Blood Count 2.74 M/mm3 (3.65-5.03); Red Cell Distribution Width 17.3 % (13.2-15.2)
[2018-09-01 10:20] LABS: Calcium 7.1 mg/dL (8.4-10.2)
[2018-09-01] MEDS: KEPPRA 750 MG in D5W 100 ML IV SCH ×2 (10:21→21:51)
[2018-09-01] MEDS: SODIUM CHLORIDE FLUSH SYRINGE 10 ML IV SCH ×2 (10:22→21:14)
[2018-09-01] MEDS: DULCOLAX PR SCH (10:22)
[2018-09-01] MEDS: HEPARIN SUB-Q SCH ×2 (10:32→21:14)
--- NOTE | 2018-09-01 11:08 | Progress Note ---
Assessment and Plan Cultures: 08/21/2018 Blood culture: CoNS, Diphtheroids Sputum cultures 08/21/2018 MSSA Urine cultures 08/21/2018 no growth Repeat blood cultures negative Assessment: 73 y/o male with a history of chronic kidney disease, liver disease, COPD, diabetes, GITA, colon cancer admitted on due to 4-day history of progressive shortness of breath and right neck/face edema and tenderness associated with poor po intake, patient became unresponsive en route. EMS unable to intubate. Pt bagged with 100%. Patient found in asystole at the ED receiving s/p CRP. 1) Severe Sepsis s/p arrest in the ED: resolved, lactate now normal. Etiology likely RLL pneumonia. 2) Pneumonia: likely HCAP (recent admission to [facility] for MRSA cellulitis?). CXR shows bilateral infiltrate with airspace disease on RLL. Sputum cultures 08/21/2018 MSSA. 3) CoNS and diphtheroids bacteremia: likely contaminant. Blood cultures 08/21/2018 CoNS 2 of 4 bottles. TTE no vegetations, EF 40-45%. Repeat cultures negative. 4) Acute renal failure on CKD: renally adjust abx dosing. On intermittent dialysis per nephrology. 5) Penicillin allergy: ?unclear reaction. Tolerating Cefazolin. Recommendations: - Discontinue Cefazolin - antibiotic course completed - Monitor off antibiotics -follow-up ID clinic in 2 weeks (sent to billing administrator) Dr. Goncalves is supervisor [employer] this weekend [phone], please call for questions. Dr. Still will round on Tuesday. Korina Basurto NP [facility] M: [phone] O:[phone] Subjective Date of service: 09/01/18 Principal diagnosis: s/p cardiac arrest; severe sepsis; acute hypoxemic- hypercapnic resp failure Interval history: Patient seen and examined. Laying in bed. Reports generalized weakness with productive cough. No pain. No fevers . Objective - Exam Narrative Exam: Constitutional: awake, alert. Obese Head, Ears, Nose: Normocephalic, atraumatic. External ears, nose normal. Eyes: Conjunctivae/corneas clear. No icterus. No ptosis. Neck: thick neck, supple, no meningeal signs Oral: no thrush Cardiovascular: S1, S2 normal. Respiratory: left clear, right side with scattered rhonchi, +productive cough, brownish sputum GI: Soft, non-tender; bowel sounds normal. No peritoneal signs Musculoskeletal: trace pedal edema, no cyanosis. b/l LE hyperpigmentation Skin: No rash or abscess Hem/Lymphatic: No palpable cervical or supraclavicular nodes. No lymphangitis Psych: calm, no agitation Neurological: awake, answers questions, follows commands - Constitutional Vitals: Vital Signs Temp Pulse Resp BP Pulse Ox 97.6 F 62 18 144/51 97 09/01/18 05:45 09/01/18 07:31 09/01/18 07:31 09/01/18 06:29 09/01/18 07:31 Temperature -Last 24 Hours Temperature 97.6 F Temperature 97.4 F Temperature 97.7 F Temperature 97.7 F Temperature 97.8 F - Labs CBC & Chem 7: 09/01/18 09:21 09/01/18 09:21 Labs: Abnormal lab results 08/31/18 08/31/18 08/31/18 Range/Units 11:26 13:54 19:05 RBC (3.65-5.03) M/mm3 Hgb (11.8-15.2) gm/dl Hct (35.5-45.6) % RDW (13.2-15.2) % Potassium (3.6-5.0) mmol/L Chloride (98-107) mmol/L BUN (9-20) mg/dL Creatinine (0.8-1.5) mg/dL POC Glucose 117 H 186 H (70-105) Uric Acid 9.6 H (3.5-7.6) mg/dL Calcium (8.4-10.2) mg/dL 08/31/18 09/01/18 09/01/18 Range/Units 23:50 06:27 09:21 RBC 2.74 L (3.65-5.03) M/mm3 Hgb 8.6 L (11.8-15.2) gm/dl Hct 25.8 L (35.5-45.6) % RDW 17.3 H (13.2-15.2) % Potassium (3.6-5.0) mmol/L Chloride (98-107) mmol/L BUN (9-20) mg/dL Creatinine (0.8-1.5) mg/dL POC Glucose 141 H 62 L (70-105) Uric Acid (3.5-7.6) mg/dL Calcium (8.4-10.2) mg/dL 09/01/18 Range/Units 09:21 RBC (3.65-5.03) M/mm3 Hgb (11.8-15.2) gm/dl Hct (35.5-45.6) % RDW (13.2-15.2) % Potassium 3.0 L D (3.6-5.0) mmol/L Chloride 109.8 H (98-107) mmol/L BUN 45 H (9-20) mg/dL Creatinine 1.7 H (0.8-1.5) mg/dL POC Glucose (70-105) Uric Acid (3.5-7.6) mg/dL Calcium 7.1 L D (8.4-10.2) mg/dL
--- NOTE | 2018-09-01 11:23 | Progress Note ---
Assessment and Plan Impression: * Nonoliguric KHRIS on CKD * s/p Cardiopulmonary arrest with ROSC * Acute on chronic hypoxemic respiratory failure * Lactic acidosis * Acute metabolic/respiratory acidosis * Sepsis probably secondary to aspiration PNA * COPD * Acute metabolic-toxic encephalopathy * NSTEMI * Type 2 DM Plan: * Renal function recovering. Will hold HD today. Last HD treatment on August 28. * Continue to monitor SCr and UOP for evidence of recovery * Strict I/O * Antibiotics per primary team * Avoid nephrotoxins * AM labs * Plan of care discussed with family member who is at bedside * Will arrange femoral vascath removal for tomorrow pending stable renal function Subjective Date of service: 09/01/18 Principal diagnosis: s/p cardiac arrest; severe sepsis; acute hypoxemic- hypercapnic resp failure Interval history: Patient has no complaints today Objective - Vital Signs Vital signs: Vital Signs - 12hr 08/31/18 08/31/18 08/31/18 23:41 23:47 23:49 Temperature 97.4 F L Pulse Rate 65 60 Pulse Rate [ Anterior Bilateral Throughout] Pulse Rate [ From Monitor] Respiratory 20 Rate Respiratory Rate [Anterior Bilateral Throughout] Blood Pressure 145/59 O2 Sat by Pulse 97 Oximetry 08/31/18 09/01/18 09/01/18 23:54 04:00 05:44 Temperature Pulse Rate 62 62 Pulse Rate [ Anterior Bilateral Throughout] Pulse Rate [ 78 From Monitor] Respiratory 20 20 Rate Respiratory Rate [Anterior Bilateral Throughout] Blood Pressure 144/51 O2 Sat by Pulse 96 96 Oximetry 09/01/18 09/01/18 09/01/18 05:45 06:29 07:31 Temperature 97.6 F Pulse Rate 62 Pulse Rate [ 62 Anterior Bilateral Throughout] Pulse Rate [ From Monitor] Respiratory Rate Respiratory 18 Rate [Anterior Bilateral Throughout] Blood Pressure 144/51 O2 Sat by Pulse 97 Oximetry - General Appearance General appearance: well-developed, well-nourished EENT: ATNC Respiratory: Present: Other (coarse BS) Cardiology: regular, S1S2 Gastrointestinal: obese Neurologic: no focal deficit Psychiatric: cooperative - Lab 09/01/18 09:21 09/01/18 09:21 Most recent lab results Calcium 7.1 mg/dL (8.4-10.2) L D 09/01/18 09:21 Magnesium 2.30 mg/dL (1.7-2.3) 08/23/18 14:24 Medications & Allergies - Medications Allergies/Adverse Reactions: Allergies Penicillins Allergy (Verified 08/21/18 04:49) Unknown -cillins Allergy (Uncoded 08/21/18 04:49) Unknown Home Medications: Home Medications Medication Instructions Recorded Confirmed Last Taken Type AtorvaSTATin [Lipitor] 10 mg PO QHS 08/21/18 08/21/18 Unknown History Ferrous Sulfate [Feosol] 325 mg PO QDAY 08/21/18 08/21/18 Unknown History Melatonin [Melatonin 10MG CAP] 10 mg PO DAILY 08/21/18 08/21/18 Unknown History NIFEdipine [Nifedipine ER] 60 mg PO BID 08/21/18 08/21/18 Unknown History Sennosides Tab [Senokot] 1 tab PO HS 08/21/18 08/21/18 Unknown History Tamsulosin [Flomax] 2 cap PO HS 08/21/18 08/21/18 Unknown History Torsemide [Demadex] 20 mg PO DAILY 08/21/18 08/21/18 Unknown History Venlafaxine HCl [Venlafaxin ER] 75 mg PO QDAY 08/21/18 08/21/18 Unknown History buPROPion [Wellbutrin] 100 mg PO DAILY 08/21/18 08/21/18 Unknown History Active Medications: Generic Name Dose Route Start Last Admin Trade Name Freq PRN Reason Stop Dose Admin Acetaminophen 650 mg 08/21/18 06:31 Tylenol PO Q4H PRN Pain MILD(1-3)/Fever >100.5/COOK Albuterol/Ipratropium 1 ampul 08/24/18 20:00 09/01/18 07:31 Duoneb *Not For Prn Use* IH 1 ampul BIDRT LUIS Administration Lipase/Protease/Amylase 1 each 08/26/18 12:07 [place] 10,500 Unit FEEDTUBE PRN PRN For Clogged Feeding Tube Arformoterol Tartrate 15 mcg 08/24/18 20:00 09/01/18 07:32 Brovana Rita IH 15 mcg Q12HRT LUIS Administration Bisacodyl 10 mg 08/25/18 16:00 09/01/18 10:22 Dulcolax IA 10 mg QDAY LUIS Administration Budesonide 0.5 mg 08/24/18 20:00 09/01/18 07:31 Pulmicort IH 0.5 mg Q12HRT LUIS Administration Dextrose 50 ml 08/21/18 06:48 D50w (25gm) Syringe IV PRN PRN Hypoglycemia Heparin Sodium (Porcine) 5,000 unit 08/22/18 10:00 09/01/18 10:32 Heparin SUB-Q 5,000 unit Q12HR LUIS Administration Hydralazine HCl 10 mg 08/30/18 18:31 08/31/18 13:16 Apresoline IV 09/01/18 18:30 10 mg Q4HR PRN Administration Blood Pressure Hydralazine HCl 25 mg 08/30/18 22:00 09/01/18 06:29 Apresoline PO 25 mg Q8HR LUIS Administration Levetiracetam 750 mg/ Dextrose 107.5 mls @ 400 mls/hr 08/24/18 22:00 09/01/18 10:21 IV 400 mls/hr Q12HR ULIS Administration Insulin Human Lispro 0 unit 08/31/18 22:00 09/01/18 08:40 Humalog SUB-Q Not Given ACHS [facility] Protocol Metoclopramide HCl 10 mg 08/25/18 18:00 09/01/18 06:29 Reglan IV 10 mg Q12H LUIS Administration Morphine Sulfate 2 mg 08/26/18 14:24 08/30/18 01:40 Morphine IV 2 mg Q6H PRN Administration Pain, Moderate (4-6) Ondansetron HCl 4 mg 08/21/18 06:31 Zofran IV Q8H PRN Nausea And Vomiting Sodium Chloride 10 ml 08/21/18 10:00 09/01/18 10:22 Sodium Chloride Flush Syringe 10 Ml IV 10 ml BID LUIS Administration
--- NOTE | 2018-09-01 12:26 | Progress Note ---
Assessment and Plan -s/p Cardiopulmonary arrest with ROSC -Acute on chronic hypoxemic respiratory failure s/p MVS -Lactic acidosis, resolved -Acute metabolic/respiratory acidosis -Acute on chronic renal failure (multifactorial) -Sepsis probably secondary to aspiration PNA, resolving -AE-COPD -Acute metabolic-toxic encephalopathy -Morbid obesity -NSTEMI- probably type 2 ischemia -Type 2 DM -h/o Liver disease -h/o Colon CA -Hyperkalemia -LEFT TMJ JOINT DISLOCATION-POA -Supplemental oxygen to keep O2 sats 88-90% -Restrictive oxygen therapy -Bronchodilators -Modified diet with aspiration precautions -Accuchecks with glycemic control. Target blood glucose <180mg/dL -Prevention of delirium, maintenance of sleep-wake cycle -Antibiotics per ID -Avoid nephrotoxic agents, adjust all antibiotics and medications for CrCL and GFR -VTE and Stress ulcer prophylaxis( Heparin/Famotidine) --PT/OT to treat -increase activity -Will need maxillo facial evaluation -Nocturnal BIPAP and prn during the day Discussed with RT/RN Updated the patient and his at the bedside. CONDITION: IMPROVING PROGNOSIS:FAIR CODE STATUS: FULL CODE Subjective Date of service: 09/01/18 Principal diagnosis: s/p cardiac arrest; severe sepsis; acute hypoxemic-hyp ercapnic resp failure Interval history: Patient is seen today for: cardiopulmonary arrest, severe sepsis, acute hypoxemic-hypercapnic respiratory failure s/p MVS, KHRIS on CKD on HD Seen and examined at bedside; 24hour events reviewed; nursing and respiratory care staff consulted; no adverse overnight events reported to me; Awake and alert, obeying simple commands, being fed by his . Making good amounts of urine, HD on hold for now. He denies any chest pain, no shortness of breath, no nausea or vomiting, no fevers Objective Vital Signs - 12hr 09/01/18 09/01/18 09/01/18 04:00 05:44 05:45 Temperature 97.6 F Pulse Rate 62 62 Pulse Rate [ Anterior Bilateral Throughout] Respiratory 20 Rate Respiratory Rate [Anterior Bilateral Throughout] Blood Pressure 144/51 O2 Sat by Pulse 96 Oximetry 09/01/18 09/01/18 09/01/18 06:29 07:31 08:00 Temperature Pulse Rate 62 62 Pulse Rate [ 62 Anterior Bilateral Throughout] Respiratory Rate Respiratory 18 Rate [Anterior Bilateral Throughout] Blood Pressure 144/51 O2 Sat by Pulse 97 Oximetry Constitutional: no acute distress, alert Eyes: non-icteric ENT: oropharynx moist, other Neck: supple, no JVD, other (short neck) Effort: mildly labored Ascultation: Bilateral: diminished breath sounds, rhonchi (coarse BS bilaterally) Percussion: Bilateral: not dull Cardiovascular: regular rate and rhythm, other (S1,S2, no murmurs, no gallops or rubs) Gastrointestinal: normoactive bowel sounds, soft, non-tender, non-distended, other (Madison catheter in place, clear urine) Integumentary: normal, other (right femoral HD catheter) Extremities: no cyanosis, no edema, pink and warm, pulses normal, no ischemia or petechiae Neurologic: non-focal exam (grossly), pupils equal and round, motor strength no rmal and, other (awake and alert, obeying one step commands) Psychiatric: mood appropriate, affect normal CBC and BMP: 09/11/18 06:00 09/11/18 06:00 ABG, PT/INR, D-dimer: ABG POC ABG pH 7.410 (7.35-7.45) 08/30/18 13:35 POC ABG pCO2 41.4 (35-45) 08/30/18 13:35 POC ABG pO2 99 (80-105) 08/30/18 13:35 POC ABG HCO3 26.2 (22-26 mml/L) 08/30/18 13:35 POC ABG Total CO2 27 (23-27mmol/L) 08/30/18 13:35 POC ABG O2 Sat 98 08/30/18 13:35 PT/INR, D-dimer PT 15.6 Sec. (12.2-14.9) H 08/25/18 16:43 INR 1.27 (0.87-1.13) H 08/25/18 16:43 1978.25 ng/mlDDU (0-234) H 08/24/18 13:41 Abnormal lab findings: Abnormal Labs 08/21/18 08/21/18 08/21/18 04:42 04:42 04:42 WBC 19.1 H RBC 2.49 L Hgb 7.7 L Hct 24.5 L MCV 98 H RDW 17.7 H Plt Count Seg Neuts % (Manual) 84.0 H Lymphocytes % (Manual) 7.0 L Monocytes % (Manual) 9.0 H Nucleated RBC % Seg Neutrophils # Man 16.0 H Lymphocytes # (Manual) Monocytes # (Manual) 1.7 H PT 20.1 H INR 1.76 H D-Dimer POC ABG pH POC ABG pCO2 POC ABG pO2 Sodium Potassium Chloride Carbon Dioxide BUN Creatinine Glucose POC Glucose Lactic Acid Uric Acid Calcium Total Bilirubin AST ALT Total Creatine Kinase CK-MB (CK-2) CK-MB (CK-2) Rel Index Troponin T 0.032 H C-Reactive Protein NT-Pro-B Natriuret Pep Total Protein Albumin LDL Cholesterol Direct 44 L Urine WBC (Auto) 08/21/18 08/21/18 08/21/18 04:42 04:42 04:42 WBC RBC Hgb Hct MCV RDW Plt Count Seg Neuts % (Manual) Lymphocytes % (Manual) Monocytes % (Manual) Nucleated RBC % Seg Neutrophils # Man Lymphocytes # (Manual) Monocytes # (Manual) PT INR D-Dimer POC ABG pH POC ABG pCO2 POC ABG pO2 Sodium Potassium 6.0 H Chloride Carbon Dioxide 15 L BUN 57 H Creatinine 4.3 H Glucose 111 H POC Glucose Lactic Acid 5.80 H* Uric Acid Calcium Total Bilirubin 1.80 H AST 212 H ALT 94 H Total Creatine Kinase CK-MB (CK-2) CK-MB (CK-2) Rel Index Troponin T C-Reactive Protein NT-Pro-B Natriuret Pep 47262 H Total Protein Albumin 3.2 L LDL Cholesterol Direct Urine WBC (Auto) 08/21/18 08/21/18 08/21/18 05:08 05:58 05:58 WBC RBC Hgb Hct MCV RDW Plt Count Seg Neuts % (Manual) Lymphocytes % (Manual) Monocytes % (Manual) Nucleated RBC % Seg Neutrophils # Man Lymphocytes # (Manual) Monocytes # (Manual) PT INR D-Dimer POC ABG pH 7.164 L POC ABG pCO2 46.3 H POC ABG pO2 229 H Sodium Potassium Chloride Carbon Dioxide BUN Creatinine Glucose POC Glucose Lactic Acid 5.10 H* Uric Acid Calcium Total Bilirubin AST ALT Total Creatine Kinase CK-MB (CK-2) CK-MB (CK-2) Rel Index Troponin T 0.035 H C-Reactive Protein NT-Pro-B Natriuret Pep Total Protein Albumin LDL Cholesterol Direct Urine WBC (Auto) 08/21/18 08/21/18 08/21/18 06:45 06:45 06:53 WBC RBC Hgb Hct MCV RDW Plt Count Seg Neuts % (Manual) Lymphocytes % (Manual) Monocytes % (Manual) Nucleated RBC % Seg Neutrophils # Man Lymphocytes # (Manual) Monocytes # (Manual) PT INR D-Dimer POC ABG pH 7.160 L POC ABG pCO2 46.8 H POC ABG pO2 Sodium Potassium Chloride Carbon Dioxide BUN Creatinine Glucose POC Glucose Lactic Acid 4.70 H* Uric Acid Calcium Total Bilirubin AST ALT Total Creatine Kinase 234 H CK-MB (CK-2) 9.1 H CK-MB (CK-2) Rel Index Troponin T 0.032 H C-Reactive Protein NT-Pro-B Natriuret Pep Total Protein Albumin LDL Cholesterol Direct Urine WBC (Auto) 08/21/18 08/21/18 08/21/18 10:43 10:43 10:45 WBC RBC Hgb Hct MCV RDW Plt Count Seg Neuts % (Manual) Lymphocytes % (Manual) Monocytes % (Manual) Nucleated RBC % Seg Neutrophils # Man Lymphocytes # (Manual) Monocytes # (Manual) PT INR D-Dimer POC ABG pH POC ABG pCO2 POC ABG pO2 Sodium Potassium Chloride Carbon Dioxide 17 L BUN 59 H Creatinine 4.2 H Glucose POC Glucose Lactic Acid 3.70 H* Uric Acid Calcium Total Bilirubin AST ALT Total Creatine Kinase 222 H CK-MB (CK-2) 9.2 H CK-MB (CK-2) Rel Index 4.1 H Troponin T 0.044 H D C-Reactive Protein NT-Pro-B Natriuret Pep Total Protein Albumin LDL Cholesterol Direct Urine WBC (Auto) 08/21/18 08/21/18 08/21/18 11:38 12:33 15:03 WBC RBC Hgb Hct MCV RDW Plt Count Seg Neuts % (Manual) Lymphocytes % (Manual) Monocytes % (Manual) Nucleated RBC % Seg Neutrophils # Man Lymphocytes # (Manual) Monocytes # (Manual) PT INR D-Dimer POC ABG pH 7.250 L POC ABG pCO2 POC ABG pO2 121 H Sodium Potassium Chloride Carbon Dioxide BUN Creatinine Glucose POC Glucose 129 H Lactic Acid Uric Acid Calcium Total Bilirubin AST ALT Total Creatine Kinase CK-MB (CK-2) CK-MB (CK-2) Rel Index Troponin T C-Reactive Protein NT-Pro-B Natriuret Pep Total Protein Albumin LDL Cholesterol Direct Urine WBC (Auto) 13.0 H 08/21/18 08/22/18 08/22/18 15:47 00:01 04:27 WBC RBC Hgb Hct MCV RDW Plt Count Seg Neuts % (Manual) Lymphocytes % (Manual) Monocytes % (Manual) Nucleated RBC % Seg Neutrophils # Man Lymphocytes # (Manual) Monocytes # (Manual) PT INR D-Dimer POC ABG pH 7.457 H POC ABG pCO2 POC ABG pO2 117 H Sodium Potassium Chloride Carbon Dioxide BUN Creatinine Glucose POC Glucose 211 H Lactic Acid 2.70 H* Uric Acid Calcium Total Bilirubin AST ALT Total Creatine Kinase CK-MB (CK-2) CK-MB (CK-2) Rel Index Troponin T C-Reactive Protein NT-Pro-B Natriuret Pep Total Protein Albumin LDL Cholesterol Direct Urine WBC (Auto) 08/22/18 08/22/18 08/22/18 05:46 06:10 06:10 WBC RBC 2.27 L Hgb 7.0 L Hct 21.2 L MCV RDW 16.8 H Plt Count 129 L Seg Neuts % (Manual) 95.0 H Lymphocytes % (Manual) 1.0 L Monocytes % (Manual) Nucleated RBC % 1.0 H Seg Neutrophils # Man 7.8 H Lymphocytes # (Manual) 0.1 L Monocytes # (Manual) PT INR D-Dimer POC ABG pH POC ABG pCO2 POC ABG pO2 Sodium Potassium Chloride Carbon Dioxide 20 L BUN 63 H Creatinine 3.9 H Glucose 205 H POC Glucose 223 H Lactic Acid Uric Acid Calcium Total Bilirubin AST ALT Total Creatine Kinase CK-MB (CK-2) CK-MB (CK-2) Rel Index Troponin T C-Reactive Protein NT-Pro-B Natriuret Pep Total Protein Albumin LDL Cholesterol Direct Urine WBC (Auto) 08/22/18 08/22/18 08/22/18 06:10 12:57 16:21 WBC RBC Hgb Hct MCV RDW Plt Count Seg Neuts % (Manual) Lymphocytes % (Manual) Monocytes % (Manual) Nucleated RBC % Seg Neutrophils # Man Lymphocytes # (Manual) Monocytes # (Manual) PT INR D-Dimer POC ABG pH 7.477 H POC ABG pCO2 POC ABG pO2 Sodium Potassium Chloride Carbon Dioxide BUN Creatinine Glucose POC Glucose 166 H Lactic Acid Uric Acid Calcium Total Bilirubin AST ALT Total Creatine Kinase CK-MB (CK-2) CK-MB (CK-2) Rel Index Troponin T C-Reactive Protein 23.60 H NT-Pro-B Natriuret Pep Total Protein Albumin LDL Cholesterol Direct Urine WBC (Auto) 08/22/18 08/22/18 08/23/18 17:41 23:42 04:38 WBC RBC Hgb Hct MCV RDW Plt Count Seg Neuts % (Manual) Lymphocytes % (Manual) Monocytes % (Manual) Nucleated RBC % Seg Neutrophils # Man Lymphocytes # (Manual) Monocytes # (Manual) PT INR D-Dimer POC ABG pH 7.249 L POC ABG pCO2 53.5 H POC ABG pO2 73 L Sodium Potassium Chloride Carbon Dioxide BUN Creatinine Glucose POC Glucose 131 H 168 H Lactic Acid Uric Acid Calcium Total Bilirubin AST ALT Total Creatine Kinase CK-MB (CK-2) CK-MB (CK-2) Rel Index Troponin T C-Reactive Protein NT-Pro-B Natriuret Pep Total Protein Albumin LDL Cholesterol Direct Urine WBC (Auto) 08/23/18 08/23/18 08/23/18 04:52 04:52 04:52 WBC RBC 2.39 L Hgb 7.5 L Hct 22.8 L MCV 95 H RDW 17.6 H Plt Count Seg Neuts % (Manual) Lymphocytes % (Manual) Monocytes % (Manual) Nucleated RBC % Seg Neutrophils # Man Lymphocytes # (Manual) Monocytes # (Manual) PT INR D-Dimer POC ABG pH POC ABG pCO2 POC ABG pO2 Sodium Potassium 5.6 H 5.6 H Chloride Carbon Dioxide 21 L BUN 71 H 72 H Creatinine 4.1 H 4.0 H Glucose 141 H 140 H POC Glucose Lactic Acid Uric Acid Calcium 8.3 L 8.2 L Total Bilirubin AST 247 H ALT 220 H Total Creatine Kinase CK-MB (CK-2) CK-MB (CK-2) Rel Index Troponin T C-Reactive Protein NT-Pro-B Natriuret Pep Total Protein Albumin 2.8 L LDL Cholesterol Direct Urine WBC (Auto) 08/23/18 08/23/18 08/23/18 05:50 08:38 12:21 WBC RBC Hgb Hct MCV RDW Plt Count Seg Neuts % (Manual) Lymphocytes % (Manual) Monocytes % (Manual) Nucleated RBC % Seg Neutrophils # Man Lymphocytes # (Manual) Monocytes # (Manual) PT INR D-Dimer POC ABG pH POC ABG pCO2 POC ABG pO2 Sodium Potassium Chloride Carbon Dioxide BUN Creatinine Glucose POC Glucose 160 H 177 H Lactic Acid Uric Acid Calcium Total Bilirubin AST ALT Total Creatine Kinase CK-MB (CK-2) CK-MB (CK-2) Rel Index Troponin T C-Reactive Protein NT-Pro-B Natriuret Pep 90282 H Total Protein Albumin LDL Cholesterol Direct Urine WBC (Auto) 08/23/18 08/23/18 08/23/18 12:36 14:24 18:05 WBC RBC Hgb Hct MCV RDW Plt Count Seg Neuts % (Manual) Lymphocytes % (Manual) Monocytes % (Manual) Nucleated RBC % Seg Neutrophils # Man Lymphocytes # (Manual) Monocytes # (Manual) PT INR D-Dimer POC ABG pH 7.337 L POC ABG pCO2 POC ABG pO2 145 H Sodium 136 L Potassium 5.2 H Chloride Carbon Dioxide BUN 76 H Creatinine 4.2 H Glucose 158 H POC Glucose 169 H Lactic Acid Uric Acid Calcium 8.1 L Total Bilirubin AST ALT Total Creatine Kinase CK-MB (CK-2) CK-MB (CK-2) Rel Index Troponin T C-Reactive Protein NT-Pro-B Natriuret Pep Total Protein Albumin LDL Cholesterol Direct Urine WBC (Auto) 08/23/18 08/23/18 08/24/18 22:43 23:42 05:16 WBC RBC Hgb Hct MCV RDW Plt Count Seg Neuts % (Manual) Lymphocytes % (Manual) Monocytes % (Manual) Nucleated RBC % Seg Neutrophils # Man Lymphocytes # (Manual) Monocytes # (Manual) PT INR D-Dimer POC ABG pH POC ABG pCO2 POC ABG pO2 Sodium 136 L Potassium 5.3 H 5.2 H Chloride 97.9 L Carbon Dioxide BUN 80 H 86 H Creatinine 4.0 H 4.3 H Glucose 164 H 202 H POC Glucose 183 H Lactic Acid Uric Acid Calcium 7.9 L Total Bilirubin AST ALT Total Creatine Kinase CK-MB (CK-2) CK-MB (CK-2) Rel Index Troponin T C-Reactive Protein NT-Pro-B Natriuret Pep Total Protein Albumin LDL Cholesterol Direct Urine WBC (Auto) 08/24/18 08/24/18 08/24/18 05:21 05:29 10:10 WBC RBC 2.47 L Hgb 7.5 L Hct 23.3 L MCV RDW 17.5 H Plt Count 118 L Seg Neuts % (Manual) 92.0 H Lymphocytes % (Manual) 2.0 L Monocytes % (Manual) Nucleated RBC % Seg Neutrophils # Man 8.8 H Lymphocytes # (Manual) 0.2 L Monocytes # (Manual) PT INR D-Dimer POC ABG pH 7.243 L POC ABG pCO2 56.8 H POC ABG pO2 Sodium Potassium Chloride Carbon Dioxide BUN Creatinine Glucose POC Glucose 209 H Lactic Acid Uric Acid Calcium Total Bilirubin AST ALT Total Creatine Kinase CK-MB (CK-2) CK-MB (CK-2) Rel Index Troponin T C-Reactive Protein NT-Pro-B Natriuret Pep Total Protein Albumin LDL Cholesterol Direct Urine WBC (Auto) 08/24/18 08/24/18 08/24/18 10:10 11:19 13:41 WBC RBC Hgb Hct MCV RDW Plt Count Seg Neuts % (Manual) Lymphocytes % (Manual) Monocytes % (Manual) Nucleated RBC % Seg Neutrophils # Man Lymphocytes # (Manual) Monocytes # (Manual) PT INR D-Dimer 1978.25 H POC ABG pH POC ABG pCO2 POC ABG pO2 Sodium Potassium Chloride Carbon Dioxide BUN Creatinine Glucose POC Glucose 212 H Lactic Acid Uric Acid Calcium Total Bilirubin AST ALT Total Creatine Kinase CK-MB (CK-2) CK-MB (CK-2) Rel Index Troponin T C-Reactive Protein NT-Pro-B Natriuret Pep 55000 H Total Protein Albumin LDL Cholesterol Direct Urine WBC (Auto) 08/24/18 08/24/18 08/24/18 13:41 14:27 17:23 WBC RBC Hgb Hct MCV RDW Plt Count Seg Neuts % (Manual) Lymphocytes % (Manual) Monocytes % (Manual) Nucleated RBC % Seg Neutrophils # Man Lymphocytes # (Manual) Monocytes # (Manual) PT INR D-Dimer POC ABG pH POC ABG pCO2 POC ABG pO2 Sodium 136 L Potassium 5.1 H Chloride 97.8 L Carbon Dioxide BUN 90 H Creatinine 4.1 H Glucose 157 H POC Glucose 155 H Lactic Acid Uric Acid Calcium 8.0 L Total Bilirubin AST ALT Total Creatine Kinase CK-MB (CK-2) CK-MB (CK-2) Rel Index Troponin T C-Reactive Protein 9.00 H NT-Pro-B Natriuret Pep Total Protein Albumin LDL Cholesterol Direct Urine WBC (Auto) 08/25/18 08/25/18 08/25/18 00:38 05:22 05:57 WBC RBC Hgb Hct MCV RDW Plt Count Seg Neuts % (Manual) Lymphocytes % (Manual) Monocytes % (Manual) Nucleated RBC % Seg Neutrophils # Man Lymphocytes # (Manual) Monocytes # (Manual) PT INR D-Dimer POC ABG pH 7.238 L POC ABG pCO2 58.2 H POC ABG pO2 Sodium Potassium 5.4 H Chloride Carbon Dioxide BUN 98 H Creatinine 4.3 H Glucose 217 H POC Glucose 176 H Lactic Acid Uric Acid Calcium 8.3 L Total Bilirubin AST ALT Total Creatine Kinase CK-MB (CK-2) CK-MB (CK-2) Rel Index Troponin T C-Reactive Protein NT-Pro-B Natriuret Pep 22353 H Total Protein Albumin LDL Cholesterol Direct Urine WBC (Auto) 08/25/18 08/25/18 08/25/18 06:56 08:59 11:38 WBC RBC Hgb Hct MCV RDW Plt Count Seg Neuts % (Manual) Lymphocytes % (Manual) Monocytes % (Manual) Nucleated RBC % Seg Neutrophils # Man Lymphocytes # (Manual) Monocytes # (Manual) PT INR D-Dimer POC ABG pH 7.348 L POC ABG pCO2 48.6 H POC ABG pO2 Sodium Potassium Chloride Carbon Dioxide BUN Creatinine Glucose POC Glucose 247 H 235 H Lactic Acid Uric Acid Calcium Total Bilirubin AST ALT Total Creatine Kinase CK-MB (CK-2) CK-MB (CK-2) Rel Index Troponin T C-Reactive Protein NT-Pro-B Natriuret Pep Total Protein Albumin LDL Cholesterol Direct Urine WBC (Auto) 08/25/18 08/25/18 08/25/18 12:29 16:43 16:43 WBC 14.7 H RBC 2.90 L Hgb 8.9 L Hct 27.4 L MCV 95 H RDW 17.3 H Plt Count 119 L Seg Neuts % (Manual) 94.0 H Lymphocytes % (Manual) 2.0 L Monocytes % (Manual) Nucleated RBC % Seg Neutrophils # Man 13.8 H Lymphocytes # (Manual) 0.3 L Monocytes # (Manual) PT 15.6 H INR 1.27 H D-Dimer POC ABG pH POC ABG pCO2 POC ABG pO2 Sodium Potassium Chloride Carbon Dioxide BUN Creatinine Glucose POC Glucose 237 H Lactic Acid Uric Acid Calcium Total Bilirubin AST ALT Total Creatine Kinase CK-MB (CK-2) CK-MB (CK-2) Rel Index Troponin T C-Reactive Protein NT-Pro-B Natriuret Pep Total Protein Albumin LDL Cholesterol Direct Urine WBC (Auto) 08/25/18 08/26/18 08/26/18 17:22 00:16 04:56 WBC RBC Hgb Hct MCV RDW Plt Count Seg Neuts % (Manual) Lymphocytes % (Manual) Monocytes % (Manual) Nucleated RBC % Seg Neutrophils # Man Lymphocytes # (Manual) Monocytes # (Manual) PT INR D-Dimer POC ABG pH POC ABG pCO2 45.2 H POC ABG pO2 Sodium Potassium Chloride Carbon Dioxide BUN Creatinine Glucose POC Glucose 200 H 180 H Lactic Acid Uric Acid Calcium Total Bilirubin AST ALT Total Creatine Kinase CK-MB (CK-2) CK-MB (CK-2) Rel Index Troponin T C-Reactive Protein NT-Pro-B Natriuret Pep Total Protein Albumin LDL Cholesterol Direct Urine WBC (Auto) 08/26/18 08/26/18 08/26/18 05:53 06:20 08:48 WBC RBC Hgb Hct MCV RDW Plt Count Seg Neuts % (Manual) Lymphocytes % (Manual) Monocytes % (Manual) Nucleated RBC % Seg Neutrophils # Man Lymphocytes # (Manual) Monocytes # (Manual) PT INR D-Dimer POC ABG pH POC ABG pCO2 POC ABG pO2 Sodium Potassium Chloride Carbon Dioxide BUN 106 H Creatinine 3.9 H Glucose 137 H POC Glucose 131 H 126 H Lactic Acid Uric Acid Calcium 8.1 L Total Bilirubin AST ALT Total Creatine Kinase CK-MB (CK-2) CK-MB (CK-2) Rel Index Troponin T C-Reactive Protein NT-Pro-B Natriuret Pep > 82210 H Total Protein Albumin LDL Cholesterol Direct Urine WBC (Auto) 08/26/18 08/26/18 08/26/18 11:39 17:33 18:02 WBC RBC Hgb Hct MCV RDW Plt Count Seg Neuts % (Manual) Lymphocytes % (Manual) Monocytes % (Manual) Nucleated RBC % Seg Neutrophils # Man Lymphocytes # (Manual) Monocytes # (Manual) PT INR D-Dimer POC ABG pH POC ABG pCO2 POC ABG pO2 58 L Sodium Potassium Chloride Carbon Dioxide BUN Creatinine Glucose POC Glucose 156 H 173 H Lactic Acid Uric Acid Calcium Total Bilirubin AST ALT Total Creatine Kinase CK-MB (CK-2) CK-MB (CK-2) Rel Index Troponin T C-Reactive Protein NT-Pro-B Natriuret Pep Total Protein Albumin LDL Cholesterol Direct Urine WBC (Auto) 08/26/18 08/27/18 08/27/18 23:12 04:59 11:51 WBC RBC Hgb Hct MCV RDW Plt Count Seg Neuts % (Manual) Lymphocytes % (Manual) Monocytes % (Manual) Nucleated RBC % Seg Neutrophils # Man Lymphocytes # (Manual) Monocytes # (Manual) PT INR D-Dimer POC ABG pH 7.563 H POC ABG pCO2 < 30 L POC ABG pO2 69 L Sodium Potassium Chloride Carbon Dioxide BUN Creatinine Glucose POC Glucose 130 H 107 H Lactic Acid Uric Acid Calcium Total Bilirubin AST ALT Total Creatine Kinase CK-MB (CK-2) CK-MB (CK-2) Rel Index Troponin T C-Reactive Protein NT-Pro-B Natriuret Pep Total Protein Albumin LDL Cholesterol Direct Urine WBC (Auto) 08/27/18 08/27/18 08/27/18 11:58 11:58 11:58 WBC RBC 2.66 L Hgb 8.1 L Hct 24.7 L MCV RDW 16.7 H Plt Count Seg Neuts % (Manual) Lymphocytes % (Manual) Monocytes % (Manual) Nucleated RBC % Seg Neutrophils # Man Lymphocytes # (Manual) Monocytes # (Manual) PT INR D-Dimer POC ABG pH POC ABG pCO2 POC ABG pO2 Sodium Potassium Chloride Carbon Dioxide BUN 71 H Creatinine 2.9 H Glucose POC Glucose Lactic Acid Uric Acid Calcium 7.6 L Total Bilirubin AST ALT Total Creatine Kinase CK-MB (CK-2) CK-MB (CK-2) Rel Index Troponin T C-Reactive Protein NT-Pro-B Natriuret Pep > 75574 H Total Protein 6.1 L Albumin 2.4 L LDL Cholesterol Direct Urine WBC (Auto) 08/28/18 08/28/18 08/28/18 04:38 04:49 04:49 WBC RBC 2.65 L Hgb 8.3 L Hct 25.3 L MCV 96 H RDW 17.3 H Plt Count 83 L Seg Neuts % (Manual) Lymphocytes % (Manual) Monocytes % (Manual) Nucleated RBC % Seg Neutrophils # Man Lymphocytes # (Manual) Monocytes # (Manual) PT INR D-Dimer POC ABG pH POC ABG pCO2 POC ABG pO2 112 H Sodium Potassium Chloride Carbon Dioxide BUN Creatinine Glucose POC Glucose Lactic Acid Uric Acid Calcium Total Bilirubin AST ALT Total Creatine Kinase CK-MB (CK-2) CK-MB (CK-2) Rel Index Troponin T C-Reactive Protein NT-Pro-B Natriuret Pep > 57740 H Total Protein Albumin LDL Cholesterol Direct Urine WBC (Auto) 08/28/18 08/28/18 08/29/18 04:49 14:24 00:11 WBC RBC Hgb Hct MCV RDW Plt Count Seg Neuts % (Manual) Lymphocytes % (Manual) Monocytes % (Manual) Nucleated RBC % Seg Neutrophils # Man Lymphocytes # (Manual) Monocytes # (Manual) PT INR D-Dimer POC ABG pH 7.278 L POC ABG pCO2 57.9 H POC ABG pO2 79 L Sodium Potassium Chloride Carbon Dioxide BUN 69 H Creatinine 2.4 H Glucose POC Glucose 171 H Lactic Acid Uric Acid Calcium 7.7 L Total Bilirubin AST ALT Total Creatine Kinase CK-MB (CK-2) CK-MB (CK-2) Rel Index Troponin T C-Reactive Protein NT-Pro-B Natriuret Pep Total Protein 5.4 L Albumin 2.2 L LDL Cholesterol Direct Urine WBC (Auto) 08/29/18 08/29/18 08/29/18 04:39 05:35 05:35 WBC 13.6 H RBC 3.09 L Hgb 9.4 L Hct 29.5 L MCV 96 H RDW 17.9 H Plt Count 127 L Seg Neuts % (Manual) Lymphocytes % (Manual) Monocytes % (Manual) Nucleated RBC % Seg Neutrophils # Man Lymphocytes # (Manual) Monocytes # (Manual) PT INR D-Dimer POC ABG pH 7.312 L POC ABG pCO2 57.6 H POC ABG pO2 79 L Sodium Potassium Chloride Carbon Dioxide BUN 42 H Creatinine 1.9 H Glucose 107 H POC Glucose Lactic Acid Uric Acid Calcium Total Bilirubin AST ALT Total Creatine Kinase CK-MB (CK-2) CK-MB (CK-2) Rel Index Troponin T C-Reactive Protein NT-Pro-B Natriuret Pep Total Protein Albumin LDL Cholesterol Direct Urine WBC (Auto) 08/29/18 08/29/18 08/29/18 05:48 11:37 15:32 WBC RBC Hgb Hct MCV RDW Plt Count Seg Neuts % (Manual) Lymphocytes % (Manual) Monocytes % (Manual) Nucleated RBC % Seg Neutrophils # Man Lymphocytes # (Manual) Monocytes # (Manual) PT INR D-Dimer POC ABG pH POC ABG pCO2 47.0 H POC ABG pO2 78 L Sodium Potassium Chloride Carbon Dioxide BUN Creatinine Glucose POC Glucose 114 H 116 H Lactic Acid Uric Acid Calcium Total Bilirubin AST ALT Total Creatine Kinase CK-MB (CK-2) CK-MB (CK-2) Rel Index Troponin T C-Reactive Protein NT-Pro-B Natriuret Pep Total Protein Albumin LDL Cholesterol Direct Urine WBC (Auto) 08/29/18 08/30/18 08/30/18 17:28 00:17 04:41 WBC RBC Hgb Hct MCV RDW Plt Count Seg Neuts % (Manual) Lymphocytes % (Manual) Monocytes % (Manual) Nucleated RBC % Seg Neutrophils # Man Lymphocytes # (Manual) Monocytes # (Manual) PT INR D-Dimer POC ABG pH POC ABG pCO2 48.1 H POC ABG pO2 Sodium Potassium Chloride Carbon Dioxide BUN Creatinine Glucose POC Glucose 174 H 132 H Lactic Acid Uric Acid Calcium Total Bilirubin AST ALT Total Creatine Kinase CK-MB (CK-2) CK-MB (CK-2) Rel Index Troponin T C-Reactive Protein NT-Pro-B Natriuret Pep Total Protein Albumin LDL Cholesterol Direct Urine WBC (Auto) 08/30/18 08/30/18 08/30/18 05:17 05:34 06:10 WBC RBC 2.68 L Hgb 8.2 L Hct 25.6 L MCV 96 H RDW 17.2 H Plt Count 118 L Seg Neuts % (Manual) Lymphocytes % (Manual) Monocytes % (Manual) Nucleated RBC % Seg Neutrophils # Man Lymphocytes # (Manual) Monocytes # (Manual) PT INR D-Dimer POC ABG pH POC ABG pCO2 POC ABG pO2 Sodium Potassium Chloride Carbon Dioxide BUN 54 H Creatinine 2.4 H Glucose 120 H POC Glucose 141 H Lactic Acid Uric Acid Calcium Total Bilirubin AST ALT Total Creatine Kinase CK-MB (CK-2) CK-MB (CK-2) Rel Index Troponin T C-Reactive Protein NT-Pro-B Natriuret Pep Total Protein Albumin LDL Cholesterol Direct Urine WBC (Auto) 08/30/18 08/30/18 08/30/18 13:11 18:11 23:55 WBC RBC Hgb Hct MCV RDW Plt Count Seg Neuts % (Manual) Lymphocytes % (Manual) Monocytes % (Manual) Nucleated RBC % Seg Neutrophils # Man Lymphocytes # (Manual) Monocytes # (Manual) PT INR D-Dimer POC ABG pH POC ABG pCO2 POC ABG pO2 Sodium Potassium Chloride Carbon Dioxide BUN Creatinine Glucose POC Glucose 167 H 144 H 144 H Lactic Acid Uric Acid Calcium Total Bilirubin AST ALT Total Creatine Kinase CK-MB (CK-2) CK-MB (CK-2) Rel Index Troponin T C-Reactive Protein NT-Pro-B Natriuret Pep Total Protein Albumin LDL Cholesterol Direct Urine WBC (Auto) 08/31/18 08/31/18 08/31/18 05:07 05:07 05:44 WBC RBC 2.62 L Hgb 8.1 L Hct 25.0 L MCV 96 H RDW 17.5 H Plt Count 128 L Seg Neuts % (Manual) Lymphocytes % (Manual) Monocytes % (Manual) Nucleated RBC % Seg Neutrophils # Man Lymphocytes # (Manual) Monocytes # (Manual) PT INR D-Dimer POC ABG pH POC ABG pCO2 POC ABG pO2 Sodium Potassium Chloride Carbon Dioxide BUN 58 H Creatinine 2.3 H Glucose 103 H POC Glucose 109 H Lactic Acid Uric Acid Calcium Total Bilirubin AST ALT Total Creatine Kinase CK-MB (CK-2) CK-MB (CK-2) Rel Index Troponin T C-Reactive Protein NT-Pro-B Natriuret Pep Total Protein Albumin LDL Cholesterol Direct Urine WBC (Auto) 08/31/18 08/31/18 08/31/18 11:26 13:54 19:05 WBC RBC Hgb Hct MCV RDW Plt Count Seg Neuts % (Manual) Lymphocytes % (Manual) Monocytes % (Manual) Nucleated RBC % Seg Neutrophils # Man Lymphocytes # (Manual) Monocytes # (Manual) PT INR D-Dimer POC ABG pH POC ABG pCO2 POC ABG pO2 Sodium Potassium Chloride Carbon Dioxide BUN Creatinine Glucose POC Glucose 117 H 186 H Lactic Acid Uric Acid 9.6 H Calcium Total Bilirubin AST ALT Total Creatine Kinase CK-MB (CK-2) CK-MB (CK-2) Rel Index Troponin T C-Reactive Protein NT-Pro-B Natriuret Pep Total Protein Albumin LDL Cholesterol Direct Urine WBC (Auto) 08/31/18 09/01/18 09/01/18 23:50 06:27 09:21 WBC RBC 2.74 L Hgb 8.6 L Hct 25.8 L MCV RDW 17.3 H Plt Count Seg Neuts % (Manual) Lymphocytes % (Manual) Monocytes % (Manual) Nucleated RBC % Seg Neutrophils # Man Lymphocytes # (Manual) Monocytes # (Manual) PT INR D-Dimer POC ABG pH POC ABG pCO2 POC ABG pO2 Sodium Potassium Chloride Carbon Dioxide BUN Creatinine Glucose POC Glucose 141 H 62 L Lactic Acid Uric Acid Calcium Total Bilirubin AST ALT Total Creatine Kinase CK-MB (CK-2) CK-MB (CK-2) Rel Index Troponin T C-Reactive Protein NT-Pro-B Natriuret Pep Total Protein Albumin LDL Cholesterol Direct Urine WBC (Auto) 09/01/18 09:21 WBC RBC Hgb Hct MCV RDW Plt Count Seg Neuts % (Manual) Lymphocytes % (Manual) Monocytes % (Manual) Nucleated RBC % Seg Neutrophils # Man Lymphocytes # (Manual) Monocytes # (Manual) PT INR D-Dimer POC ABG pH POC ABG pCO2 POC ABG pO2 Sodium Potassium 3.0 L D Chloride 109.8 H Carbon Dioxide BUN 45 H Creatinine 1.7 H Glucose POC Glucose Lactic Acid Uric Acid Calcium 7.1 L D Total Bilirubin AST ALT Total Creatine Kinase CK-MB (CK-2) CK-MB (CK-2) Rel Index Troponin T C-Reactive Protein NT-Pro-B Natriuret Pep Total Protein Albumin LDL Cholesterol Direct Urine WBC (Auto) Allied health notes reviewed: RT
[2018-09-01] MEDS ORDERED: K-DUR PO ONE (14:43)
--- NOTE | 2018-09-01 14:47 | Progress Note ---
Assessment and Plan Assessment and plan: Patient is a 73 yo man with a history of hypertension, CKD 3, chronic respiratory failure on 2 liters of O2 due to end stage COPD, diabetes, GITA and colon cancer who presented to [facility] ED on 08/21/18 due to SOB, hallucinating and then became combative, pulling off his CPAP. He was just discharge from [facility] at the end on June for COPD. Patient became unresponsive en route. EMS unable to intubate. Pt was bagged with 100%. When he arrived at the entrance of the hospital. he lost his pulse. Patient found in PEA. He was successfully intubated and resuscitated in ED with CPR/ACLS and 2 rounds of epi with ROSC. He was also in ARF with hyperkalemia, right femoral Vas cath placed and hemodialysis started on 08/26/18. He continue to improve and was extubated on 08/30/2018. He passed his swallow evaluation on 08/31/18 and diet started. Acute on chronic hypoxic respiratory failure >96 hours ETT: extubated on 08/30/18, doing better, still requiring O2 KHRIS secondary to ATN and vasomotor nephropathy, poa acute on chronic kidney disease 3: on HD, Nephrology following, Dialysis started, Femoral vas cath placed 08/26/18- to be changed to permacath Acute COPD exacerbation-POA: continue to treat with nebs, o2, abx until completion Pneumonia, HCAP-PRESUMED GNR: treated with ABX, ID is following Acute Metabolic Encephalopathy resolving Cardiac arrest-POA, successfully resuscitated, resolved Bowel illeus- Resolved, Surgery input noted, they have signed off Severe Sepsis- Resolved LEFT TMJ JOINT DISLOCATION-POA: need Oral Facial Maxillary surgeon, not available here Acute systolic Heart failure-POA/Type 2 MN/CARDIOMYOPATHY and Abnormal cardiac enzymes: Cardiology consulted, input noted, they have signed off Elevated D.DIMER, Venous leg doppler negative for DVT: Pulmonology is following Hyperkalemia resolved:monitor bmp closely Anemia ?acute blood loss: follow CBC closely Thrombocytopenia; monitoring CBC Myoclonic seziures: EEG ordered, Neurology managing Hypoxic ischemic Encephalopathy Liver disease: monitor CMP GITA; on CPAP at night, Colon cancer BY HX Morbidly obese, bmi 52: Piling Cutter consulted [facility] pending History Interval history: Patient was seen and examined. Follow-up on current diagnosis of Respiratory failure. No overnight events reported to me. Imaging, nursing note, chart, labs and old chart reviewed. Discussed with patient, and son at bedside. Extubated on 08/30/18 Hospitalist Physical - Physical exam Narrative exam: Gen: deconditioned, nad, extubated, talking, awake and alert HEENT: NCAT, EOMI, PERRL, OP Clear Neck: supple, no adenopathy, no thyromegaly, no JVD CVS/Heart: RRR, normal S1S2, pulses present bilaterally Chest/Lungs: diminished bs bilaterally, Symmetrical chest expansion, good air entry bilaterally GI/Abdomen: soft, NTND, good bowel sounds, no guarding or rebound /Bladder: no suprapubic tenderness, no CVA or paraspinal tenderness Extermity/Skin: dependent edema x 4 MSK: moving all extermities Neuro: no obvious focal deficits, equal strength. Psych: calm - Constitutional Vitals: Temp Pulse Resp BP Pulse Ox 97.6 F 88 19 144/51 94 09/01/18 05:45 09/01/18 12:00 09/01/18 08:00 09/01/18 06:29 09/01/18 08:00 General appearance: Present: other (intubated, chronically ill appearing) Results - Labs CBC & Chem 7: 09/01/18 09:21 09/01/18 09:21 Labs: Laboratory Last Values WBC 7.9 K/mm3 (4.5-11.0) 09/01/18 09:21 RBC 2.74 M/mm3 (3.65-5.03) L 09/01/18 09:21 Hgb 8.6 gm/dl (11.8-15.2) L 09/01/18 09:21 Hct 25.8 % (35.5-45.6) L 09/01/18 09:21 MCV 94 fl (84-94) 09/01/18 09:21 MCH 31 pg (28-32) 09/01/18 09:21 MCHC 33 % (32-34) 09/01/18 09:21 RDW 17.3 % (13.2-15.2) H 09/01/18 09:21 Plt Count 146 K/mm3 (140-440) 09/01/18 09:21 Lymph % (Auto) Irrigation Manager 08/25/18 16:43 Yates % (Auto) Irrigation Manager 08/25/18 16:43 Eos % (Auto) Irrigation Manager 08/25/18 16:43 Baso % (Auto) Irrigation Manager 08/25/18 16:43 Lymph # Irrigation Manager 08/25/18 16:43 Yates # Irrigation Manager 08/25/18 16:43 Eos # Irrigation Manager 08/25/18 16:43 Baso # Irrigation Manager 08/25/18 16:43 Add Manual Diff Complete 08/25/18 16:43 Total Counted 100 08/25/18 16:43 Seg Neutrophils % Irrigation Manager 08/25/18 16:43 Seg Neuts % (Manual) 94.0 % (40.0-70.0) H 08/25/18 16:43 2.0 % 08/25/18 16:43 2.0 % (13.4-35.0) L 08/25/18 16:43 Reactive Lymphs % (Man) 0 % 08/25/18 16:43 2.0 % (0.0-7.3) 08/25/18 16:43 0 % (0.0-4.3) 08/25/18 16:43 0 % (0.0-1.8) 08/25/18 16:43 0 % 08/25/18 16:43 0 % 08/25/18 16:43 0 % 08/25/18 16:43 0 % 08/25/18 16:43 Nucleated RBC % Not Reportable 08/25/18 16:43 Seg Neutrophils # Irrigation Manager 08/25/18 16:43 Seg Neutrophils # Man 13.8 K/mm3 (1.8-7.7) H 08/25/18 16:43 Band Neutrophils # 0.3 K/mm3 08/25/18 16:43 0.3 K/mm3 (1.2-5.4) L 08/25/18 16:43 Abs React Lymphs (Man) 0.0 K/mm3 08/25/18 16:43 0.3 K/mm3 (0.0-0.8) 08/25/18 16:43 0.0 K/mm3 (0.0-0.4) 08/25/18 16:43 0.0 K/mm3 (0.0-0.1) 08/25/18 16:43 0.0 K/mm3 08/25/18 16:43 0.0 K/mm3 08/25/18 16:43 0.0 K/mm3 08/25/18 16:43 Blast Cells # 0.0 K/mm3 08/25/18 16:43 WBC Morphology Not Reportable 08/25/18 16:43 Hypersegmented Neuts Not Reportable 08/25/18 16:43 Hyposegmented Neuts Not Reportable 08/25/18 16:43 Hypogranular Neuts Not Reportable 08/25/18 16:43 Not Reportable 08/25/18 16:43 Not Reportable 08/25/18 16:43 Not Reportable 08/25/18 16:43 Not Reportable 08/25/18 16:43 Not Reportable 08/25/18 16:43 Not Reportable 08/25/18 16:43 Consistent w auto 08/25/18 16:43 Not Reportable 08/25/18 16:43 Plt Clumps, EDTA Not Reportable 08/25/18 16:43 Not Reportable 08/25/18 16:43 Not Reportable 08/25/18 16:43 Not Reportable 08/25/18 16:43 Plt Morphology Comment Not Reportable 08/25/18 16:43 RBC Morphology Not Reportable 08/25/18 16:43 Dimorphic RBCs Not Reportable 08/25/18 16:43 Not Reportable 08/25/18 16:43 1+ 08/25/18 16:43 Few 08/25/18 16:43 1+ 08/25/18 16:43 Not Reportable 08/25/18 16:43 Not Reportable 08/25/18 16:43 Not Reportable 08/25/18 16:43 Not Reportable 08/25/18 16:43 Not Reportable 08/25/18 16:43 Not Reportable 08/25/18 16:43 Not Reportable 08/25/18 16:43 Few 08/25/18 16:43 Not Reportable 08/25/18 16:43 Not Reportable 08/25/18 16:43 Not Reportable 08/25/18 16:43 Not Reportable 08/25/18 16:43 Not Reportable 08/25/18 16:43 Not Reportable 08/25/18 16:43 Not Reportable 08/25/18 16:43 Acanthocytes (Spur) Not Reportable 08/25/18 16:43 Rouleaux Not Reportable 08/25/18 16:43 Not Reportable 08/25/18 16:43 Not Reportable 08/25/18 16:43 Not Reportable 08/25/18 16:43 Not Reportable 08/25/18 16:43 Hem Pathologist Commnt No 08/25/18 16:43 PT 15.6 Sec. (12.2-14.9) H 08/25/18 16:43 INR 1.27 (0.87-1.13) H 08/25/18 16:43 APTT 30.8 Sec. (24.2-36.6) 08/21/18 04:42 1978.25 ng/mlDDU (0-234) H 08/24/18 13:41 POC ABG pH 7.410 (7.35-7.45) 08/30/18 13:35 POC ABG pCO2 41.4 (35-45) 08/30/18 13:35 POC ABG pO2 99 (80-105) 08/30/18 13:35 POC ABG HCO3 26.2 (22-26 mml/L) 08/30/18 13:35 POC ABG Total CO2 27 (23-27mmol/L) 08/30/18 13:35 POC ABG O2 Sat 98 08/30/18 13:35 POC ABG Base Excess 2 ((-2) - (+3)mmol/L) 08/30/18 13:35 30 % 08/30/18 13:35 Sodium 144 mmol/L (137-145) 09/01/18 09:21 Potassium 3.0 mmol/L (3.6-5.0) L D 09/01/18 09:21 Chloride 109.8 mmol/L (98-107) H 09/01/18 09:21 Carbon Dioxide 23 mmol/L (22-30) 09/01/18 09:21 14 mmol/L 09/01/18 09:21 BUN 45 mg/dL (9-20) H 09/01/18 09:21 1.7 mg/dL (0.8-1.5) H 09/01/18 09:21 Estimated GFR 40 ml/min 09/01/18 09:21 26 % 09/01/18 09:21 Glucose 100 mg/dL (75-100) 09/01/18 09:21 POC Glucose 106 (70-105) H 09/01/18 12:27 317 Mosm/kg 08/31/18 13:54 Lactic Acid 1.30 mmol/L (0.7-2.0) 08/21/18 20:50 9.6 mg/dL (3.5-7.6) H 08/31/18 13:54 Calcium 7.1 mg/dL (8.4-10.2) L D 09/01/18 09:21 Magnesium 2.30 mg/dL (1.7-2.3) 08/23/18 14:24 0.60 mg/dL (0.1-1.2) 08/28/18 04:49 AST 27 units/L (5-40) 08/28/18 04:49 ALT 12 units/L (7-56) 08/28/18 04:49 87 units/L (35-129) 08/28/18 04:49 222 units/L (55-170) H 08/21/18 10:45 CK-MB (CK-2) 9.2 ng/mL (0.0-4.0) H 08/21/18 10:45 CK-MB (CK-2) Rel Index 4.1 (0-4) H 08/21/18 10:45 0.044 ng/mL (0.00-0.029) H D 08/21/18 10:45 9.00 mg/dL (0.00-1.30) H 08/24/18 13:41 NT-Pro-B Natriuret Pep > 96968 pg/mL (0-900) H 08/28/18 04:49 5.4 g/dL (6.3-8.2) L 08/28/18 04:49 2.2 g/dL (3.9-5) L 08/28/18 04:49 0.7 % 08/28/18 04:49 Triglycerides 87 mg/dL (2-149) 08/21/18 04:42 Cholesterol 93 mg/dL (50-199) 08/21/18 04:42 44 mg/dL (50-130) L 08/21/18 04:42 41 mg/dL (40-59) 08/21/18 04:42 2.26 % 08/21/18 04:42 Yellow (Yellow) 08/21/18 15:03 Slightly-cloudy (Clear) 08/21/18 15:03 5.0 (5.0-7.0) 08/21/18 15:03 Ur Specific [place] 1.015 (1.003-1.030) 08/21/18 15:03 30 mg/dl mg/dL (Negative) 08/21/18 15:03 Neg mg/dL (Negative) 08/21/18 15:03 Neg mg/dL (Negative) 08/21/18 15:03 Mod (Negative) 08/21/18 15:03 Neg (Negative) 08/21/18 15:03 Neg (Negative) 08/21/18 15:03 < 2.0 mg/dL (<2.0) 08/21/18 15:03 Ur Leukocyte Esterase Tr (Negative) 08/21/18 15:03 13.0 /HPF (0.0-6.0) H 08/21/18 15:03 15.0 /HPF (0.0-6.0) 08/21/18 15:03 U Epithel Cells (Auto) 1.0 /HPF (0-13.0) 08/21/18 15:03 1+ /HPF (Negative) 08/21/18 15:03 Few /HPF 08/21/18 15:03 Random Vancomycin 10.5 ug/mL (0-40.0) 08/26/18 05:53 Levetiracetam 25.7 mcg/mL (12.0-46.0) 08/26/18 13:42 Hepatitis A IgM Ab Non-reactive (NonReactive) 08/27/18 23:25 Hep Bs Antigen Non-reactive (Negative) 08/27/18 23:25 Hep B Core IgM Ab Non-reactive (NonReactive) 08/27/18 23:25 Non-reactive (NonReactive) 08/27/18 23:25 Active Medications - Current Medications Current Medications: Generic Name Dose Route Start Last Admin Trade Name Freq PRN Reason Stop Dose Admin Acetaminophen 650 mg 08/21/18 06:31 Tylenol PO Q4H PRN Pain MILD(1-3)/Fever >100.5/COOK Albuterol/Ipratropium 1 ampul 08/24/18 20:00 09/01/18 07:31 Duoneb *Not For Prn Use* IH 1 ampul BIDRT LUIS Administration Lipase/Protease/Amylase 1 each 08/26/18 12:07 Taye Castle 10,500 Unit FEEDTUBE PRN PRN For Clogged Feeding Tube Arformoterol Tartrate 15 mcg 08/24/18 20:00 09/01/18 07:32 Brovana Nebu IH 15 mcg Q12HRT LUIS Administration Bisacodyl 10 mg 08/25/18 16:00 09/01/18 10:22 Dulcolax CA 10 mg QDAY LUIS Administration Budesonide 0.5 mg 08/24/18 20:00 09/01/18 07:31 Pulmicort IH 0.5 mg Q12HRT LUIS Administration Dextrose 50 ml 08/21/18 06:48 D50w (25gm) Syringe IV PRN PRN Hypoglycemia Heparin Sodium (Porcine) 5,000 unit 08/22/18 10:00 09/01/18 10:32 Heparin SUB-Q 5,000 unit Q12HR LUIS Administration Hydralazine HCl 10 mg 08/30/18 18:31 08/31/18 13:16 Apresoline IV 09/01/18 18:30 10 mg Q4HR PRN Administration Blood Pressure Hydralazine HCl 25 mg 08/30/18 22:00 09/01/18 06:29 Apresoline PO 25 mg Q8HR LUIS Administration Levetiracetam 750 mg/ Dextrose 107.5 mls @ 400 mls/hr 08/24/18 22:00 09/01/18 10:21 IV 400 mls/hr Q12HR LUIS Administration Insulin Human Lispro 0 unit 08/31/18 22:00 09/01/18 12:38 Humalog SUB-Q Not Given ACHS [facility] Protocol Metoclopramide HCl 10 mg 08/25/18 18:00 09/01/18 06:29 Reglan IV 10 mg Q12H LUIS Administration Morphine Sulfate 2 mg 08/26/18 14:24 08/30/18 01:40 Morphine IV 2 mg Q6H PRN Administration Pain, Moderate (4-6) Ondansetron HCl 4 mg 08/21/18 06:31 Zofran IV Q8H PRN Nausea And Vomiting Potassium Chloride 40 meq 09/01/18 14:43 K-Dur PO 09/01/18 14:44 ONCE ONE Sodium Chloride 10 ml 08/21/18 10:00 09/01/18 10:22 Sodium Chloride Flush Syringe 10 Ml IV 10 ml BID LUIS Administration Nutrition/Malnutrition Assess - Dietary Evaluation Nutrition/Malnutrition Findings: Nutrition Notes Start: 08/21/18 16:58 Freq: Status: Active Protocol: Document 08/29/18 10:35 LP (Rec: 08/29/18 10:37 LP [id number]) Nutrition Notes Need for Assessment generated from: MD Order Initial or Follow up Brief Note Subjective/Other Information Consult for TF. Pt ok to increase TF to goal rate. Nutrition Intervention Nutrition Support: Nepro at 45ml/hr 150ml q4h flush Kcal 1,944 Protein (gm) 87 Fluid (mL) 785 Goal #1 TF tolerance Goal #2 Meet at least 80% of kcal and protein needs Anticipated Discharge Needs: Unable to determine at this time Follow-Up By: 09/01/18 Additional Comments Follow for TF tolerance
[2018-09-01] MEDS: TYLENOL PO PRN (21:12)
[2018-09-02] MEDS: HumaLOG SUB-Q SCH ×5 (03:20→22:55)
[2018-09-02] MEDS: REGLAN IV SCH ×2 (05:55→18:37)
[2018-09-02 05:56] LABS: Hematocrit 24.8 % (35.5-45.6); Hemoglobin 8.1 gm/dl (11.8-15.2); Mean Corpuscular HGB Conc 33 % (32-34); Mean Corpuscular Hemoglobin 31 pg (28-32); Mean Corpuscular Volume 95 fl (84-94); Platelet Count 151 K/mm3 (140-440); Red Cell Distribution Width 17.1 % (13.2-15.2)
[2018-09-02] MEDS: APRESOLINE PO SCH ×3 (05:56→21:09)
[2018-09-02 06:18] LABS: Calcium 8.1 mg/dL (8.4-10.2)
[2018-09-02] MEDS: BROVANA NEBU IH SCH ×2 (08:03→20:52)
[2018-09-02] MEDS: DUONEB *Not for PRN Use IH SCH ×2 (08:03→20:52)
[2018-09-02] MEDS: PULMICORT IH SCH ×2 (08:03→20:52)
--- NOTE | 2018-09-02 10:00 | Progress Note ---
Subjective Principal diagnosis: s/p cardiac arrest; severe sepsis; acute hypoxemic- hypercapnic resp failure Interval history: Patient was seen today for follow-up on multiple renal related issues Events of this hospitalization noted Creatinine has stabilized Vitals labs intake output medications were reviewed Social history: Reviewed Allergies: Reviewed Family history: Reviewed Physical examination HEENT: Oral mucosa moist no pallor or icterus Neck: Supple no JVD Chest: Clear to auscultation anteriorly CVS: Regular rate and rhythm S1 and S2 heard Abdomen: Soft nontender no suprapubic masses no organomegaly appreciable Extremity: Dry skin less than 1+ peripheral edema Musculoskeletal: No joint effusion noted in knees and ankle Neurological: Alert awake Dermatology: No petechial rashes Psychiatry: No evidence of any agitation and aggression noted Assessment and plan; Acute kidney injury, renal function stable electrolytes appear to be stable no evidence of acidosis continue to hold dialysis for now and continue to monitor renal function closely As of today creatinine is 1.8 which was 1.7 yesterday hemoglobin is currently 8.1 platelet count 151,000 which is better Acute kidney injury with underlying chronic kidney disease in a patient who has had cardiopulmonary arrest resulting in hypoxemia respiratory failure likely etiology for renal failure appears to be due to acute tubular necrosis: Severe Avoid any form of nephrotoxic medication continue with supportive care Multiple underlying comorbidities including cardiopulmonary arrest, lactic acidosis, COPD, non-ST elevation MS, diabetes Overall prognosis guarded to poor We'll continue to follow and make recommendation from renal standpoint Objective - Vital Signs Vital signs: Vital Signs - 12hr 09/01/18 09/01/18 09/02/18 23:13 23:18 02:33 Temperature 98.4 F Pulse Rate 76 76 Pulse Rate [ Anterior Bilateral Throughout] Pulse Rate [ Apical] Respiratory 20 Rate Respiratory Rate [Anterior Bilateral Throughout] Blood Pressure 148/55 O2 Sat by Pulse 95 Oximetry 09/02/18 09/02/18 09/02/18 02:35 05:56 05:57 Temperature Pulse Rate 76 68 Pulse Rate [ Anterior Bilateral Throughout] Pulse Rate [ 72 Apical] Respiratory 20 20 Rate Respiratory Rate [Anterior Bilateral Throughout] Blood Pressure 159/48 159/48 O2 Sat by Pulse 95 95 Oximetry 09/02/18 09/02/18 09/02/18 05:58 07:32 08:03 Temperature 98.2 F 97.9 F Pulse Rate 73 Pulse Rate [ 74 Anterior Bilateral Throughout] Pulse Rate [ Apical] Respiratory 18 Rate Respiratory 18 Rate [Anterior Bilateral Throughout] Blood Pressure 147/53 O2 Sat by Pulse 96 95 Oximetry 09/02/18 08:13 Temperature Pulse Rate Pulse Rate [ 71 Anterior Bilateral Throughout] Pulse Rate [ Apical] Respiratory Rate Respiratory 18 Rate [Anterior Bilateral Throughout] Blood Pressure O2 Sat by Pulse Oximetry - Lab 09/02/18 05:16 09/02/18 05:16 Most recent lab results Calcium 8.1 mg/dL (8.4-10.2) L 09/02/18 05:16 Magnesium 2.00 mg/dL (1.7-2.3) 09/02/18 05:16 Medications & Allergies - Medications Allergies/Adverse Reactions: Allergies Penicillins Allergy (Verified 08/21/18 04:49) Unknown -cillins Allergy (Uncoded 08/21/18 04:49) Unknown Home Medications: Home Medications Medication Instructions Recorded Confirmed Last Taken Type AtorvaSTATin [Lipitor] 10 mg PO QHS 08/21/18 08/21/18 Unknown History Ferrous Sulfate [Feosol] 325 mg PO QDAY 08/21/18 08/21/18 Unknown History Melatonin [Melatonin 10MG CAP] 10 mg PO DAILY 08/21/18 08/21/18 Unknown History NIFEdipine [Nifedipine ER] 60 mg PO BID 08/21/18 08/21/18 Unknown History Sennosides Tab [Senokot] 1 tab PO HS 08/21/18 08/21/18 Unknown History Tamsulosin [Flomax] 2 cap PO HS 08/21/18 08/21/18 Unknown History Torsemide [Demadex] 20 mg PO DAILY 08/21/18 08/21/18 Unknown History Venlafaxine HCl [Venlafaxin ER] 75 mg PO QDAY 08/21/18 08/21/18 Unknown History buPROPion [Wellbutrin] 100 mg PO DAILY 08/21/18 08/21/18 Unknown History Active Medications: Generic Name Dose Route Start Last Admin Trade Name Freq PRN Reason Stop Dose Admin Acetaminophen 650 mg 08/21/18 06:31 09/01/18 21:12 Tylenol PO 650 mg Q4H PRN Administration Pain MILD(1-3)/Fever >100.5/COOK Albuterol/Ipratropium 1 ampul 08/24/18 20:00 09/02/18 08:03 Duoneb *Not For Prn Use* IH 1 ampul BIDRT LUIS Administration Lipase/Protease/Amylase 1 each 08/26/18 12:07 Taye Castle 10,500 Unit FEEDTUBE PRN PRN For Clogged Feeding Tube Arformoterol Tartrate 15 mcg 08/24/18 20:00 09/02/18 08:03 Brosincere Nebu IH 15 mcg Q12HRT LUIS Administration Bisacodyl 10 mg 08/25/18 16:00 09/01/18 10:22 Dulcolax [place] 10 mg QDAY LUIS Administration Budesonide 0.5 mg 08/24/18 20:00 09/02/18 08:03 Pulmicort IH 0.5 mg Q12HRT LUIS Administration Dextrose 50 ml 08/21/18 06:48 D50w (25gm) Syringe IV PRN PRN Hypoglycemia Heparin Sodium (Porcine) 5,000 unit 08/22/18 10:00 09/01/18 21:14 Heparin SUB-Q 5,000 unit Q12HR LUIS Administration Hydralazine HCl 25 mg 08/30/18 22:00 09/02/18 05:56 Apresoline PO 25 mg Q8HR LUIS Administration Levetiracetam 750 mg/ Dextrose 107.5 mls @ 400 mls/hr 08/24/18 22:00 09/01/18 21:51 IV 400 mls/hr Q12HR LUIS Administration Insulin Human Lispro 0 unit 08/31/18 22:00 09/02/18 03:20 Humalog SUB-Q Not Given ACHS [facility] Protocol Metoclopramide HCl 10 mg 08/25/18 18:00 09/02/18 05:55 Reglan IV 10 mg Q12H LUIS Administration Morphine Sulfate 2 mg 08/26/18 14:24 08/30/18 01:40 Morphine IV 2 mg Q6H PRN Administration Pain, Moderate (4-6) Ondansetron HCl 4 mg 08/21/18 06:31 Zofran IV Q8H PRN Nausea And Vomiting Sodium Chloride 10 ml 08/21/18 10:00 09/01/18 21:14 Sodium Chloride Flush Syringe 10 Ml IV 10 ml BID LUIS Administration
[2018-09-02] MEDS: SODIUM CHLORIDE FLUSH SYRINGE 10 ML IV SCH ×2 (10:13→21:09)
[2018-09-02] MEDS: HEPARIN SUB-Q SCH ×2 (10:30→21:09)
[2018-09-02] MEDS: KEPPRA 750 MG in D5W 100 ML IV SCH (12:17)
[2018-09-02] MEDS: DULCOLAX PR SCH (12:19)
[2018-09-02] MEDS ORDERED: DULCOLAX PR PRN (12:42)
--- NOTE | 2018-09-02 13:22 | Progress Note ---
Assessment and Plan s/p Cardiopulmonary arrest with ROSC Acute on chronic hypoxemic respiratory failure on MVS Lactic acidosis Acute metabolic/respiratory acidosis Acute on chronic renal failure (multifactorial) Sepsis probably secondary to aspiration PNA AE-COPD Acute metabolic-toxic encephalopathy Morbid obesity NSTEMI- probably type 2 ischemia Type 2 DM h/o Liver disease h/o Colon CA Hyperkalemia LEFT TMJ JOINT DISLOCATION-POA - VQ scan ordered for tuesday with CXR - continue scheduled BIPAP qhs with prn daytime use - continue HD/UF for toxin and volume clearance - repeat CXR prn at this point - continue brovana and pulmicort for severe COPD history / exacerbation (reduced JENELLE frequency) - Will need maxillo facial surgery for evaluation of TMJ dislocation - continue supplemental oxygen to keep O2 sats >/= 88-90% - continue bronchodilators with pulmonary hygiene per RT - systemic steroids tapered off - continue accuchecks with glycemic control per SSI for target blood glucose <180mg/dL - Antibiotics per ID - Avoid nephrotoxic agents, adjust all antibiotics and medications for CrCL and GFR - VTE and Stress ulcer prophylaxis( Heparin/Famotidine) - continue other care per attending / other consultants .... care plan discussed at length with his in room CODE STATUS: FULL CODE Subjective Date of service: 09/02/18 Principal diagnosis: s/p cardiac arrest; severe sepsis; acute hypoxemic- hypercapnic resp failure Interval history: Patient is seen today for: cardiopulmonary arrest; severe sepsis; acute hypoxemic-hypercapnic respiratory failure on MVS; edgar on ckd Seen and examined at bedside; 24hour events reviewed; nursing and respiratory care staff consulted; no adverse overnight events reported to me; resting peacefully in bed; remains on supplemental oxygen; No N/V/F/C Objective Vital Signs - 12hr 09/02/18 09/02/18 09/02/18 02:33 02:35 05:56 Temperature Pulse Rate 76 76 Pulse Rate [ Anterior Bilateral Throughout] Pulse Rate [ 72 Apical] Respiratory 20 Rate Respiratory Rate [Anterior Bilateral Throughout] Blood Pressure 159/48 O2 Sat by Pulse 95 Oximetry 09/02/18 09/02/18 09/02/18 05:57 05:58 07:32 Temperature 98.2 F 97.9 F Pulse Rate 68 73 Pulse Rate [ Anterior Bilateral Throughout] Pulse Rate [ Apical] Respiratory 20 18 Rate Respiratory Rate [Anterior Bilateral Throughout] Blood Pressure 159/48 147/53 O2 Sat by Pulse 95 96 Oximetry 09/02/18 09/02/18 09/02/18 07:52 08:03 08:13 Temperature Pulse Rate 72 Pulse Rate [ 74 71 Anterior Bilateral Throughout] Pulse Rate [ Apical] Respiratory 20 Rate Respiratory 18 18 Rate [Anterior Bilateral Throughout] Blood Pressure O2 Sat by Pulse 95 95 Oximetry Constitutional: alert, appears uncomfortable, other (morbidly obese, orally intubated, 7.5ETT at 24cm at the lip, no dys-synchrony) Eyes: non-icteric ENT: oropharynx moist, other (extubated) Neck: supple, no JVD, other (short neck) Effort: mildly labored Ascultation: Bilateral: diminished breath sounds, rhonchi (improved overall) Percussion: Bilateral: not dull Cardiovascular: regular rate and rhythm, other (S1,S2, no murmurs, no gallops or rubs) Gastrointestinal: normoactive bowel sounds, soft, non-tender, non-distended, other (Madison catheter in place, minimal urine tea colored) Integumentary: normal Extremities: no cyanosis, no edema, pink and warm, pulses normal, no ischemia or petechiae Neurologic: normal mental status, non-focal exam (grossly), pupils equal and round, CN II-XII normal Psychiatric: mood appropriate, affect normal CBC and BMP: 09/02/18 05:16 09/02/18 05:16 ABG, PT/INR, D-dimer: ABG POC ABG pH 7.410 (7.35-7.45) 08/30/18 13:35 POC ABG pCO2 41.4 (35-45) 08/30/18 13:35 POC ABG pO2 99 (80-105) 08/30/18 13:35 POC ABG HCO3 26.2 (22-26 mml/L) 08/30/18 13:35 POC ABG Total CO2 27 (23-27mmol/L) 08/30/18 13:35 POC ABG O2 Sat 98 08/30/18 13:35 PT/INR, D-dimer PT 15.6 Sec. (12.2-14.9) H 08/25/18 16:43 INR 1.27 (0.87-1.13) H 08/25/18 16:43 1978.25 ng/mlDDU (0-234) H 08/24/18 13:41 Abnormal lab findings: Abnormal Labs 08/21/18 08/21/18 08/21/18 04:42 04:42 04:42 WBC 19.1 H RBC 2.49 L Hgb 7.7 L Hct 24.5 L MCV 98 H RDW 17.7 H Plt Count Seg Neuts % (Manual) 84.0 H Lymphocytes % (Manual) 7.0 L Monocytes % (Manual) 9.0 H Nucleated RBC % Seg Neutrophils # Man 16.0 H Lymphocytes # (Manual) Monocytes # (Manual) 1.7 H PT 20.1 H INR 1.76 H D-Dimer POC ABG pH POC ABG pCO2 POC ABG pO2 Sodium Potassium Chloride Carbon Dioxide BUN Creatinine Glucose POC Glucose Lactic Acid Uric Acid Calcium Total Bilirubin AST ALT Total Creatine Kinase CK-MB (CK-2) CK-MB (CK-2) Rel Index Troponin T 0.032 H C-Reactive Protein NT-Pro-B Natriuret Pep Total Protein Albumin LDL Cholesterol Direct 44 L Urine WBC (Auto) 08/21/18 08/21/18 08/21/18 04:42 04:42 04:42 WBC RBC Hgb Hct MCV RDW Plt Count Seg Neuts % (Manual) Lymphocytes % (Manual) Monocytes % (Manual) Nucleated RBC % Seg Neutrophils # Man Lymphocytes # (Manual) Monocytes # (Manual) PT INR D-Dimer POC ABG pH POC ABG pCO2 POC ABG pO2 Sodium Potassium 6.0 H Chloride Carbon Dioxide 15 L BUN 57 H Creatinine 4.3 H Glucose 111 H POC Glucose Lactic Acid 5.80 H* Uric Acid Calcium Total Bilirubin 1.80 H AST 212 H ALT 94 H Total Creatine Kinase CK-MB (CK-2) CK-MB (CK-2) Rel Index Troponin T C-Reactive Protein NT-Pro-B Natriuret Pep 31289 H Total Protein Albumin 3.2 L LDL Cholesterol Direct Urine WBC (Auto) 08/21/18 08/21/18 08/21/18 05:08 05:58 05:58 WBC RBC Hgb Hct MCV RDW Plt Count Seg Neuts % (Manual) Lymphocytes % (Manual) Monocytes % (Manual) Nucleated RBC % Seg Neutrophils # Man Lymphocytes # (Manual) Monocytes # (Manual) PT INR D-Dimer POC ABG pH 7.164 L POC ABG pCO2 46.3 H POC ABG pO2 229 H Sodium Potassium Chloride Carbon Dioxide BUN Creatinine Glucose POC Glucose Lactic Acid 5.10 H* Uric Acid Calcium Total Bilirubin AST ALT Total Creatine Kinase CK-MB (CK-2) CK-MB (CK-2) Rel Index Troponin T 0.035 H C-Reactive Protein NT-Pro-B Natriuret Pep Total Protein Albumin LDL Cholesterol Direct Urine WBC (Auto) 08/21/18 08/21/18 08/21/18 06:45 06:45 06:53 WBC RBC Hgb Hct MCV RDW Plt Count Seg Neuts % (Manual) Lymphocytes % (Manual) Monocytes % (Manual) Nucleated RBC % Seg Neutrophils # Man Lymphocytes # (Manual) Monocytes # (Manual) PT INR D-Dimer POC ABG pH 7.160 L POC ABG pCO2 46.8 H POC ABG pO2 Sodium Potassium Chloride Carbon Dioxide BUN Creatinine Glucose POC Glucose Lactic Acid 4.70 H* Uric Acid Calcium Total Bilirubin AST ALT Total Creatine Kinase 234 H CK-MB (CK-2) 9.1 H CK-MB (CK-2) Rel Index Troponin T 0.032 H C-Reactive Protein NT-Pro-B Natriuret Pep Total Protein Albumin LDL Cholesterol Direct Urine WBC (Auto) 08/21/18 08/21/18 08/21/18 10:43 10:43 10:45 WBC RBC Hgb Hct MCV RDW Plt Count Seg Neuts % (Manual) Lymphocytes % (Manual) Monocytes % (Manual) Nucleated RBC % Seg Neutrophils # Man Lymphocytes # (Manual) Monocytes # (Manual) PT INR D-Dimer POC ABG pH POC ABG pCO2 POC ABG pO2 Sodium Potassium Chloride Carbon Dioxide 17 L BUN 59 H Creatinine 4.2 H Glucose POC Glucose Lactic Acid 3.70 H* Uric Acid Calcium Total Bilirubin AST ALT Total Creatine Kinase 222 H CK-MB (CK-2) 9.2 H CK-MB (CK-2) Rel Index 4.1 H Troponin T 0.044 H D C-Reactive Protein NT-Pro-B Natriuret Pep Total Protein Albumin LDL Cholesterol Direct Urine WBC (Auto) 08/21/18 08/21/18 08/21/18 11:38 12:33 15:03 WBC RBC Hgb Hct MCV RDW Plt Count Seg Neuts % (Manual) Lymphocytes % (Manual) Monocytes % (Manual) Nucleated RBC % Seg Neutrophils # Man Lymphocytes # (Manual) Monocytes # (Manual) PT INR D-Dimer POC ABG pH 7.250 L POC ABG pCO2 POC ABG pO2 121 H Sodium Potassium Chloride Carbon Dioxide BUN Creatinine Glucose POC Glucose 129 H Lactic Acid Uric Acid Calcium Total Bilirubin AST ALT Total Creatine Kinase CK-MB (CK-2) CK-MB (CK-2) Rel Index Troponin T C-Reactive Protein NT-Pro-B Natriuret Pep Total Protein Albumin LDL Cholesterol Direct Urine WBC (Auto) 13.0 H 08/21/18 08/22/18 08/22/18 15:47 00:01 04:27 WBC RBC Hgb Hct MCV RDW Plt Count Seg Neuts % (Manual) Lymphocytes % (Manual) Monocytes % (Manual) Nucleated RBC % Seg Neutrophils # Man Lymphocytes # (Manual) Monocytes # (Manual) PT INR D-Dimer POC ABG pH 7.457 H POC ABG pCO2 POC ABG pO2 117 H Sodium Potassium Chloride Carbon Dioxide BUN Creatinine Glucose POC Glucose 211 H Lactic Acid 2.70 H* Uric Acid Calcium Total Bilirubin AST ALT Total Creatine Kinase CK-MB (CK-2) CK-MB (CK-2) Rel Index Troponin T C-Reactive Protein NT-Pro-B Natriuret Pep Total Protein Albumin LDL Cholesterol Direct Urine WBC (Auto) 08/22/18 08/22/18 08/22/18 05:46 06:10 06:10 WBC RBC 2.27 L Hgb 7.0 L Hct 21.2 L MCV RDW 16.8 H Plt Count 129 L Seg Neuts % (Manual) 95.0 H Lymphocytes % (Manual) 1.0 L Monocytes % (Manual) Nucleated RBC % 1.0 H Seg Neutrophils # Man 7.8 H Lymphocytes # (Manual) 0.1 L Monocytes # (Manual) PT INR D-Dimer POC ABG pH POC ABG pCO2 POC ABG pO2 Sodium Potassium Chloride Carbon Dioxide 20 L BUN 63 H Creatinine 3.9 H Glucose 205 H POC Glucose 223 H Lactic Acid Uric Acid Calcium Total Bilirubin AST ALT Total Creatine Kinase CK-MB (CK-2) CK-MB (CK-2) Rel Index Troponin T C-Reactive Protein NT-Pro-B Natriuret Pep Total Protein Albumin LDL Cholesterol Direct Urine WBC (Auto) 08/22/18 08/22/18 08/22/18 06:10 12:57 16:21 WBC RBC Hgb Hct MCV RDW Plt Count Seg Neuts % (Manual) Lymphocytes % (Manual) Monocytes % (Manual) Nucleated RBC % Seg Neutrophils # Man Lymphocytes # (Manual) Monocytes # (Manual) PT INR D-Dimer POC ABG pH 7.477 H POC ABG pCO2 POC ABG pO2 Sodium Potassium Chloride Carbon Dioxide BUN Creatinine Glucose POC Glucose 166 H Lactic Acid Uric Acid Calcium Total Bilirubin AST ALT Total Creatine Kinase CK-MB (CK-2) CK-MB (CK-2) Rel Index Troponin T C-Reactive Protein 23.60 H NT-Pro-B Natriuret Pep Total Protein Albumin LDL Cholesterol Direct Urine WBC (Auto) 08/22/18 08/22/18 08/23/18 17:41 23:42 04:38 WBC RBC Hgb Hct MCV RDW Plt Count Seg Neuts % (Manual) Lymphocytes % (Manual) Monocytes % (Manual) Nucleated RBC % Seg Neutrophils # Man Lymphocytes # (Manual) Monocytes # (Manual) PT INR D-Dimer POC ABG pH 7.249 L POC ABG pCO2 53.5 H POC ABG pO2 73 L Sodium Potassium Chloride Carbon Dioxide BUN Creatinine Glucose POC Glucose 131 H 168 H Lactic Acid Uric Acid Calcium Total Bilirubin AST ALT Total Creatine Kinase CK-MB (CK-2) CK-MB (CK-2) Rel Index Troponin T C-Reactive Protein NT-Pro-B Natriuret Pep Total Protein Albumin LDL Cholesterol Direct Urine WBC (Auto) 08/23/18 08/23/18 08/23/18 04:52 04:52 04:52 WBC RBC 2.39 L Hgb 7.5 L Hct 22.8 L MCV 95 H RDW 17.6 H Plt Count Seg Neuts % (Manual) Lymphocytes % (Manual) Monocytes % (Manual) Nucleated RBC % Seg Neutrophils # Man Lymphocytes # (Manual) Monocytes # (Manual) PT INR D-Dimer POC ABG pH POC ABG pCO2 POC ABG pO2 Sodium Potassium 5.6 H 5.6 H Chloride Carbon Dioxide 21 L BUN 71 H 72 H Creatinine 4.1 H 4.0 H Glucose 141 H 140 H POC Glucose Lactic Acid Uric Acid Calcium 8.3 L 8.2 L Total Bilirubin AST 247 H ALT 220 H Total Creatine Kinase CK-MB (CK-2) CK-MB (CK-2) Rel Index Troponin T C-Reactive Protein NT-Pro-B Natriuret Pep Total Protein Albumin 2.8 L LDL Cholesterol Direct Urine WBC (Auto) 08/23/18 08/23/18 08/23/18 05:50 08:38 12:21 WBC RBC Hgb Hct MCV RDW Plt Count Seg Neuts % (Manual) Lymphocytes % (Manual) Monocytes % (Manual) Nucleated RBC % Seg Neutrophils # Man Lymphocytes # (Manual) Monocytes # (Manual) PT INR D-Dimer POC ABG pH POC ABG pCO2 POC ABG pO2 Sodium Potassium Chloride Carbon Dioxide BUN Creatinine Glucose POC Glucose 160 H 177 H Lactic Acid Uric Acid Calcium Total Bilirubin AST ALT Total Creatine Kinase CK-MB (CK-2) CK-MB (CK-2) Rel Index Troponin T C-Reactive Protein NT-Pro-B Natriuret Pep 89905 H Total Protein Albumin LDL Cholesterol Direct Urine WBC (Auto) 08/23/18 08/23/18 08/23/18 12:36 14:24 18:05 WBC RBC Hgb Hct MCV RDW Plt Count Seg Neuts % (Manual) Lymphocytes % (Manual) Monocytes % (Manual) Nucleated RBC % Seg Neutrophils # Man Lymphocytes # (Manual) Monocytes # (Manual) PT INR D-Dimer POC ABG pH 7.337 L POC ABG pCO2 POC ABG pO2 145 H Sodium 136 L Potassium 5.2 H Chloride Carbon Dioxide BUN 76 H Creatinine 4.2 H Glucose 158 H POC Glucose 169 H Lactic Acid Uric Acid Calcium 8.1 L Total Bilirubin AST ALT Total Creatine Kinase CK-MB (CK-2) CK-MB (CK-2) Rel Index Troponin T C-Reactive Protein NT-Pro-B Natriuret Pep Total Protein Albumin LDL Cholesterol Direct Urine WBC (Auto) 08/23/18 08/23/18 08/24/18 22:43 23:42 05:16 WBC RBC Hgb Hct MCV RDW Plt Count Seg Neuts % (Manual) Lymphocytes % (Manual) Monocytes % (Manual) Nucleated RBC % Seg Neutrophils # Man Lymphocytes # (Manual) Monocytes # (Manual) PT INR D-Dimer POC ABG pH POC ABG pCO2 POC ABG pO2 Sodium 136 L Potassium 5.3 H 5.2 H Chloride 97.9 L Carbon Dioxide BUN 80 H 86 H Creatinine 4.0 H 4.3 H Glucose 164 H 202 H POC Glucose 183 H Lactic Acid Uric Acid Calcium 7.9 L Total Bilirubin AST ALT Total Creatine Kinase CK-MB (CK-2) CK-MB (CK-2) Rel Index Troponin T C-Reactive Protein NT-Pro-B Natriuret Pep Total Protein Albumin LDL Cholesterol Direct Urine WBC (Auto) 08/24/18 08/24/18 08/24/18 05:21 05:29 10:10 WBC RBC 2.47 L Hgb 7.5 L Hct 23.3 L MCV RDW 17.5 H Plt Count 118 L Seg Neuts % (Manual) 92.0 H Lymphocytes % (Manual) 2.0 L Monocytes % (Manual) Nucleated RBC % Seg Neutrophils # Man 8.8 H Lymphocytes # (Manual) 0.2 L Monocytes # (Manual) PT INR D-Dimer POC ABG pH 7.243 L POC ABG pCO2 56.8 H POC ABG pO2 Sodium Potassium Chloride Carbon Dioxide BUN Creatinine Glucose POC Glucose 209 H Lactic Acid Uric Acid Calcium Total Bilirubin AST ALT Total Creatine Kinase CK-MB (CK-2) CK-MB (CK-2) Rel Index Troponin T C-Reactive Protein NT-Pro-B Natriuret Pep Total Protein Albumin LDL Cholesterol Direct Urine WBC (Auto) 08/24/18 08/24/18 08/24/18 10:10 11:19 13:41 WBC RBC Hgb Hct MCV RDW Plt Count Seg Neuts % (Manual) Lymphocytes % (Manual) Monocytes % (Manual) Nucleated RBC % Seg Neutrophils # Man Lymphocytes # (Manual) Monocytes # (Manual) PT INR D-Dimer 1978.25 H POC ABG pH POC ABG pCO2 POC ABG pO2 Sodium Potassium Chloride Carbon Dioxide BUN Creatinine Glucose POC Glucose 212 H Lactic Acid Uric Acid Calcium Total Bilirubin AST ALT Total Creatine Kinase CK-MB (CK-2) CK-MB (CK-2) Rel Index Troponin T C-Reactive Protein NT-Pro-B Natriuret Pep 49070 H Total Protein Albumin LDL Cholesterol Direct Urine WBC (Auto) 08/24/18 08/24/18 08/24/18 13:41 14:27 17:23 WBC RBC Hgb Hct MCV RDW Plt Count Seg Neuts % (Manual) Lymphocytes % (Manual) Monocytes % (Manual) Nucleated RBC % Seg Neutrophils # Man Lymphocytes # (Manual) Monocytes # (Manual) PT INR D-Dimer POC ABG pH POC ABG pCO2 POC ABG pO2 Sodium 136 L Potassium 5.1 H Chloride 97.8 L Carbon Dioxide BUN 90 H Creatinine 4.1 H Glucose 157 H POC Glucose 155 H Lactic Acid Uric Acid Calcium 8.0 L Total Bilirubin AST ALT Total Creatine Kinase CK-MB (CK-2) CK-MB (CK-2) Rel Index Troponin T C-Reactive Protein 9.00 H NT-Pro-B Natriuret Pep Total Protein Albumin LDL Cholesterol Direct Urine WBC (Auto) 08/25/18 08/25/18 08/25/18 00:38 05:22 05:57 WBC RBC Hgb Hct MCV RDW Plt Count Seg Neuts % (Manual) Lymphocytes % (Manual) Monocytes % (Manual) Nucleated RBC % Seg Neutrophils # Man Lymphocytes # (Manual) Monocytes # (Manual) PT INR D-Dimer POC ABG pH 7.238 L POC ABG pCO2 58.2 H POC ABG pO2 Sodium Potassium 5.4 H Chloride Carbon Dioxide BUN 98 H Creatinine 4.3 H Glucose 217 H POC Glucose 176 H Lactic Acid Uric Acid Calcium 8.3 L Total Bilirubin AST ALT Total Creatine Kinase CK-MB (CK-2) CK-MB (CK-2) Rel Index Troponin T C-Reactive Protein NT-Pro-B Natriuret Pep 25290 H Total Protein Albumin LDL Cholesterol Direct Urine WBC (Auto) 08/25/18 08/25/18 08/25/18 06:56 08:59 11:38 WBC RBC Hgb Hct MCV RDW Plt Count Seg Neuts % (Manual) Lymphocytes % (Manual) Monocytes % (Manual) Nucleated RBC % Seg Neutrophils # Man Lymphocytes # (Manual) Monocytes # (Manual) PT INR D-Dimer POC ABG pH 7.348 L POC ABG pCO2 48.6 H POC ABG pO2 Sodium Potassium Chloride Carbon Dioxide BUN Creatinine Glucose POC Glucose 247 H 235 H Lactic Acid Uric Acid Calcium Total Bilirubin AST ALT Total Creatine Kinase CK-MB (CK-2) CK-MB (CK-2) Rel Index Troponin T C-Reactive Protein NT-Pro-B Natriuret Pep Total Protein Albumin LDL Cholesterol Direct Urine WBC (Auto) 08/25/18 08/25/18 08/25/18 12:29 16:43 16:43 WBC 14.7 H RBC 2.90 L Hgb 8.9 L Hct 27.4 L MCV 95 H RDW 17.3 H Plt Count 119 L Seg Neuts % (Manual) 94.0 H Lymphocytes % (Manual) 2.0 L Monocytes % (Manual) Nucleated RBC % Seg Neutrophils # Man 13.8 H Lymphocytes # (Manual) 0.3 L Monocytes # (Manual) PT 15.6 H INR 1.27 H D-Dimer POC ABG pH POC ABG pCO2 POC ABG pO2 Sodium Potassium Chloride Carbon Dioxide BUN Creatinine Glucose POC Glucose 237 H Lactic Acid Uric Acid Calcium Total Bilirubin AST ALT Total Creatine Kinase CK-MB (CK-2) CK-MB (CK-2) Rel Index Troponin T C-Reactive Protein NT-Pro-B Natriuret Pep Total Protein Albumin LDL Cholesterol Direct Urine WBC (Auto) 08/25/18 08/26/18 08/26/18 17:22 00:16 04:56 WBC RBC Hgb Hct MCV RDW Plt Count Seg Neuts % (Manual) Lymphocytes % (Manual) Monocytes % (Manual) Nucleated RBC % Seg Neutrophils # Man Lymphocytes # (Manual) Monocytes # (Manual) PT INR D-Dimer POC ABG pH POC ABG pCO2 45.2 H POC ABG pO2 Sodium Potassium Chloride Carbon Dioxide BUN Creatinine Glucose POC Glucose 200 H 180 H Lactic Acid Uric Acid Calcium Total Bilirubin AST ALT Total Creatine Kinase CK-MB (CK-2) CK-MB (CK-2) Rel Index Troponin T C-Reactive Protein NT-Pro-B Natriuret Pep Total Protein Albumin LDL Cholesterol Direct Urine WBC (Auto) 08/26/18 08/26/18 08/26/18 05:53 06:20 08:48 WBC RBC Hgb Hct MCV RDW Plt Count Seg Neuts % (Manual) Lymphocytes % (Manual) Monocytes % (Manual) Nucleated RBC % Seg Neutrophils # Man Lymphocytes # (Manual) Monocytes # (Manual) PT INR D-Dimer POC ABG pH POC ABG pCO2 POC ABG pO2 Sodium Potassium Chloride Carbon Dioxide BUN 106 H Creatinine 3.9 H Glucose 137 H POC Glucose 131 H 126 H Lactic Acid Uric Acid Calcium 8.1 L Total Bilirubin AST ALT Total Creatine Kinase CK-MB (CK-2) CK-MB (CK-2) Rel Index Troponin T C-Reactive Protein NT-Pro-B Natriuret Pep > 08169 H Total Protein Albumin LDL Cholesterol Direct Urine WBC (Auto) 08/26/18 08/26/18 08/26/18 11:39 17:33 18:02 WBC RBC Hgb Hct MCV RDW Plt Count Seg Neuts % (Manual) Lymphocytes % (Manual) Monocytes % (Manual) Nucleated RBC % Seg Neutrophils # Man Lymphocytes # (Manual) Monocytes # (Manual) PT INR D-Dimer POC ABG pH POC ABG pCO2 POC ABG pO2 58 L Sodium Potassium Chloride Carbon Dioxide BUN Creatinine Glucose POC Glucose 156 H 173 H Lactic Acid Uric Acid Calcium Total Bilirubin AST ALT Total Creatine Kinase CK-MB (CK-2) CK-MB (CK-2) Rel Index Troponin T C-Reactive Protein NT-Pro-B Natriuret Pep Total Protein Albumin LDL Cholesterol Direct Urine WBC (Auto) 08/26/18 08/27/18 08/27/18 23:12 04:59 11:51 WBC RBC Hgb Hct MCV RDW Plt Count Seg Neuts % (Manual) Lymphocytes % (Manual) Monocytes % (Manual) Nucleated RBC % Seg Neutrophils # Man Lymphocytes # (Manual) Monocytes # (Manual) PT INR D-Dimer POC ABG pH 7.563 H POC ABG pCO2 < 30 L POC ABG pO2 69 L Sodium Potassium Chloride Carbon Dioxide BUN Creatinine Glucose POC Glucose 130 H 107 H Lactic Acid Uric Acid Calcium Total Bilirubin AST ALT Total Creatine Kinase CK-MB (CK-2) CK-MB (CK-2) Rel Index Troponin T C-Reactive Protein NT-Pro-B Natriuret Pep Total Protein Albumin LDL Cholesterol Direct Urine WBC (Auto) 08/27/18 08/27/18 08/27/18 11:58 11:58 11:58 WBC RBC 2.66 L Hgb 8.1 L Hct 24.7 L MCV RDW 16.7 H Plt Count Seg Neuts % (Manual) Lymphocytes % (Manual) Monocytes % (Manual) Nucleated RBC % Seg Neutrophils # Man Lymphocytes # (Manual) Monocytes # (Manual) PT INR D-Dimer POC ABG pH POC ABG pCO2 POC ABG pO2 Sodium Potassium Chloride Carbon Dioxide BUN 71 H Creatinine 2.9 H Glucose POC Glucose Lactic Acid Uric Acid Calcium 7.6 L Total Bilirubin AST ALT Total Creatine Kinase CK-MB (CK-2) CK-MB (CK-2) Rel Index Troponin T C-Reactive Protein NT-Pro-B Natriuret Pep > 67340 H Total Protein 6.1 L Albumin 2.4 L LDL Cholesterol Direct Urine WBC (Auto) 08/28/18 08/28/18 08/28/18 04:38 04:49 04:49 WBC RBC 2.65 L Hgb 8.3 L Hct 25.3 L MCV 96 H RDW 17.3 H Plt Count 83 L Seg Neuts % (Manual) Lymphocytes % (Manual) Monocytes % (Manual) Nucleated RBC % Seg Neutrophils # Man Lymphocytes # (Manual) Monocytes # (Manual) PT INR D-Dimer POC ABG pH POC ABG pCO2 POC ABG pO2 112 H Sodium Potassium Chloride Carbon Dioxide BUN Creatinine Glucose POC Glucose Lactic Acid Uric Acid Calcium Total Bilirubin AST ALT Total Creatine Kinase CK-MB (CK-2) CK-MB (CK-2) Rel Index Troponin T C-Reactive Protein NT-Pro-B Natriuret Pep > 98734 H Total Protein Albumin LDL Cholesterol Direct Urine WBC (Auto) 08/28/18 08/28/18 08/29/18 04:49 14:24 00:11 WBC RBC Hgb Hct MCV RDW Plt Count Seg Neuts % (Manual) Lymphocytes % (Manual) Monocytes % (Manual) Nucleated RBC % Seg Neutrophils # Man Lymphocytes # (Manual) Monocytes # (Manual) PT INR D-Dimer POC ABG pH 7.278 L POC ABG pCO2 57.9 H POC ABG pO2 79 L Sodium Potassium Chloride Carbon Dioxide BUN 69 H Creatinine 2.4 H Glucose POC Glucose 171 H Lactic Acid Uric Acid Calcium 7.7 L Total Bilirubin AST ALT Total Creatine Kinase CK-MB (CK-2) CK-MB (CK-2) Rel Index Troponin T C-Reactive Protein NT-Pro-B Natriuret Pep Total Protein 5.4 L Albumin 2.2 L LDL Cholesterol Direct Urine WBC (Auto) 08/29/18 08/29/18 08/29/18 04:39 05:35 05:35 WBC 13.6 H RBC 3.09 L Hgb 9.4 L Hct 29.5 L MCV 96 H RDW 17.9 H Plt Count 127 L Seg Neuts % (Manual) Lymphocytes % (Manual) Monocytes % (Manual) Nucleated RBC % Seg Neutrophils # Man Lymphocytes # (Manual) Monocytes # (Manual) PT INR D-Dimer POC ABG pH 7.312 L POC ABG pCO2 57.6 H POC ABG pO2 79 L Sodium Potassium Chloride Carbon Dioxide BUN 42 H Creatinine 1.9 H Glucose 107 H POC Glucose Lactic Acid Uric Acid Calcium Total Bilirubin AST ALT Total Creatine Kinase CK-MB (CK-2) CK-MB (CK-2) Rel Index Troponin T C-Reactive Protein NT-Pro-B Natriuret Pep Total Protein Albumin LDL Cholesterol Direct Urine WBC (Auto) 08/29/18 08/29/18 08/29/18 05:48 11:37 15:32 WBC RBC Hgb Hct MCV RDW Plt Count Seg Neuts % (Manual) Lymphocytes % (Manual) Monocytes % (Manual) Nucleated RBC % Seg Neutrophils # Man Lymphocytes # (Manual) Monocytes # (Manual) PT INR D-Dimer POC ABG pH POC ABG pCO2 47.0 H POC ABG pO2 78 L Sodium Potassium Chloride Carbon Dioxide BUN Creatinine Glucose POC Glucose 114 H 116 H Lactic Acid Uric Acid Calcium Total Bilirubin AST ALT Total Creatine Kinase CK-MB (CK-2) CK-MB (CK-2) Rel Index Troponin T C-Reactive Protein NT-Pro-B Natriuret Pep Total Protein Albumin LDL Cholesterol Direct Urine WBC (Auto) 08/29/18 08/30/18 08/30/18 17:28 00:17 04:41 WBC RBC Hgb Hct MCV RDW Plt Count Seg Neuts % (Manual) Lymphocytes % (Manual) Monocytes % (Manual) Nucleated RBC % Seg Neutrophils # Man Lymphocytes # (Manual) Monocytes # (Manual) PT INR D-Dimer POC ABG pH POC ABG pCO2 48.1 H POC ABG pO2 Sodium Potassium Chloride Carbon Dioxide BUN Creatinine Glucose POC Glucose 174 H 132 H Lactic Acid Uric Acid Calcium Total Bilirubin AST ALT Total Creatine Kinase CK-MB (CK-2) CK-MB (CK-2) Rel Index Troponin T C-Reactive Protein NT-Pro-B Natriuret Pep Total Protein Albumin LDL Cholesterol Direct Urine WBC (Auto) 08/30/18 08/30/18 08/30/18 05:17 05:34 06:10 WBC RBC 2.68 L Hgb 8.2 L Hct 25.6 L MCV 96 H RDW 17.2 H Plt Count 118 L Seg Neuts % (Manual) Lymphocytes % (Manual) Monocytes % (Manual) Nucleated RBC % Seg Neutrophils # Man Lymphocytes # (Manual) Monocytes # (Manual) PT INR D-Dimer POC ABG pH POC ABG pCO2 POC ABG pO2 Sodium Potassium Chloride Carbon Dioxide BUN 54 H Creatinine 2.4 H Glucose 120 H POC Glucose 141 H Lactic Acid Uric Acid Calcium Total Bilirubin AST ALT Total Creatine Kinase CK-MB (CK-2) CK-MB (CK-2) Rel Index Troponin T C-Reactive Protein NT-Pro-B Natriuret Pep Total Protein Albumin LDL Cholesterol Direct Urine WBC (Auto) 08/30/18 08/30/18 08/30/18 13:11 18:11 23:55 WBC RBC Hgb Hct MCV RDW Plt Count Seg Neuts % (Manual) Lymphocytes % (Manual) Monocytes % (Manual) Nucleated RBC % Seg Neutrophils # Man Lymphocytes # (Manual) Monocytes # (Manual) PT INR D-Dimer POC ABG pH POC ABG pCO2 POC ABG pO2 Sodium Potassium Chloride Carbon Dioxide BUN Creatinine Glucose POC Glucose 167 H 144 H 144 H Lactic Acid Uric Acid Calcium Total Bilirubin AST ALT Total Creatine Kinase CK-MB (CK-2) CK-MB (CK-2) Rel Index Troponin T C-Reactive Protein NT-Pro-B Natriuret Pep Total Protein Albumin LDL Cholesterol Direct Urine WBC (Auto) 08/31/18 08/31/18 08/31/18 05:07 05:07 05:44 WBC RBC 2.62 L Hgb 8.1 L Hct 25.0 L MCV 96 H RDW 17.5 H Plt Count 128 L Seg Neuts % (Manual) Lymphocytes % (Manual) Monocytes % (Manual) Nucleated RBC % Seg Neutrophils # Man Lymphocytes # (Manual) Monocytes # (Manual) PT INR D-Dimer POC ABG pH POC ABG pCO2 POC ABG pO2 Sodium Potassium Chloride Carbon Dioxide BUN 58 H Creatinine 2.3 H Glucose 103 H POC Glucose 109 H Lactic Acid Uric Acid Calcium Total Bilirubin AST ALT Total Creatine Kinase CK-MB (CK-2) CK-MB (CK-2) Rel Index Troponin T C-Reactive Protein NT-Pro-B Natriuret Pep Total Protein Albumin LDL Cholesterol Direct Urine WBC (Auto) 08/31/18 08/31/18 08/31/18 11:26 13:54 19:05 WBC RBC Hgb Hct MCV RDW Plt Count Seg Neuts % (Manual) Lymphocytes % (Manual) Monocytes % (Manual) Nucleated RBC % Seg Neutrophils # Man Lymphocytes # (Manual) Monocytes # (Manual) PT INR D-Dimer POC ABG pH POC ABG pCO2 POC ABG pO2 Sodium Potassium Chloride Carbon Dioxide BUN Creatinine Glucose POC Glucose 117 H 186 H Lactic Acid Uric Acid 9.6 H Calcium Total Bilirubin AST ALT Total Creatine Kinase CK-MB (CK-2) CK-MB (CK-2) Rel Index Troponin T C-Reactive Protein NT-Pro-B Natriuret Pep Total Protein Albumin LDL Cholesterol Direct Urine WBC (Auto) 08/31/18 09/01/18 09/01/18 23:50 06:27 09:21 WBC RBC 2.74 L Hgb 8.6 L Hct 25.8 L MCV RDW 17.3 H Plt Count Seg Neuts % (Manual) Lymphocytes % (Manual) Monocytes % (Manual) Nucleated RBC % Seg Neutrophils # Man Lymphocytes # (Manual) Monocytes # (Manual) PT INR D-Dimer POC ABG pH POC ABG pCO2 POC ABG pO2 Sodium Potassium Chloride Carbon Dioxide BUN Creatinine Glucose POC Glucose 141 H 62 L Lactic Acid Uric Acid Calcium Total Bilirubin AST ALT Total Creatine Kinase CK-MB (CK-2) CK-MB (CK-2) Rel Index Troponin T C-Reactive Protein NT-Pro-B Natriuret Pep Total Protein Albumin LDL Cholesterol Direct Urine WBC (Auto) 09/01/18 09/01/18 09/01/18 09:21 12:27 17:51 WBC RBC Hgb Hct MCV RDW Plt Count Seg Neuts % (Manual) Lymphocytes % (Manual) Monocytes % (Manual) Nucleated RBC % Seg Neutrophils # Man Lymphocytes # (Manual) Monocytes # (Manual) PT INR D-Dimer POC ABG pH POC ABG pCO2 POC ABG pO2 Sodium Potassium 3.0 L D Chloride 109.8 H Carbon Dioxide BUN 45 H Creatinine 1.7 H Glucose POC Glucose 106 H 108 H Lactic Acid Uric Acid Calcium 7.1 L D Total Bilirubin AST ALT Total Creatine Kinase CK-MB (CK-2) CK-MB (CK-2) Rel Index Troponin T C-Reactive Protein NT-Pro-B Natriuret Pep Total Protein Albumin LDL Cholesterol Direct Urine WBC (Auto) 09/02/18 09/02/18 09/02/18 05:16 05:16 12:01 WBC RBC 2.60 L Hgb 8.1 L Hct 24.8 L MCV 95 H RDW 17.1 H Plt Count Seg Neuts % (Manual) Lymphocytes % (Manual) Monocytes % (Manual) Nucleated RBC % Seg Neutrophils # Man Lymphocytes # (Manual) Monocytes # (Manual) PT INR D-Dimer POC ABG pH POC ABG pCO2 POC ABG pO2 Sodium Potassium Chloride Carbon Dioxide BUN 49 H Creatinine 1.8 H Glucose 107 H POC Glucose 124 H Lactic Acid Uric Acid Calcium 8.1 L Total Bilirubin AST ALT Total Creatine Kinase CK-MB (CK-2) CK-MB (CK-2) Rel Index Troponin T C-Reactive Protein NT-Pro-B Natriuret Pep Total Protein Albumin LDL Cholesterol Direct Urine WBC (Auto) Allied health notes reviewed: nursing
--- NOTE | 2018-09-02 15:16 | Progress Note ---
Assessment and Plan Assessment and plan: Patient is a 73 yo man with a history of hypertension, CKD 3, chronic respiratory failure on 2 liters of O2 due to end stage COPD, diabetes, GITA and colon cancer who presented to [facility] ED on 08/21/18 due to SOB, hallucinating and then became combative, pulling off his CPAP. He was just discharge from OR at the end on June for COPD. Patient became unresponsive en route. EMS unable to intubate. Pt was bagged with 100%. When he arrived at the entrance of the hospital. he lost his pulse. Patient found in PEA. He was successfully intubated and resuscitated in ED with CPR/ACLS and 2 rounds of epi with ROSC. He was also in ARF with hyperkalemia, right femoral Vas cath placed and hemodialysis started on 08/26/18. He continue to improve and was extubated on 08/30/2018. He passed his swallow evaluation on 08/31/18 and diet started. Acute on chronic hypoxic respiratory failure >96 hours ETT: extubated on 08/30/18, doing better, still requiring O2 KHRIS secondary to ATN and vasomotor nephropathy, poa acute on chronic kidney disease 3: on HD, Nephrology following, Dialysis started, Femoral vas cath placed 08/26/18- to be changed to permacath Acute COPD exacerbation-POA: continue to treat with nebs, o2, abx until completion Pneumonia, HCAP-PRESUMED GNR: treated with ABX, ID is following Acute Metabolic Encephalopathy resolving Cardiac arrest-POA, successfully resuscitated, resolved Bowel illeus- Resolved, Surgery input noted, they have signed off Severe Sepsis- Resolved LEFT TMJ JOINT DISLOCATION-POA: need Oral Facial Maxillary surgeon, not available here Acute systolic Heart failure-POA/Type 2 PA/CARDIOMYOPATHY and Abnormal cardiac enzymes: Cardiology consulted, input noted, they have signed off Elevated D.DIMER, Venous leg doppler negative for DVT: Pulmonology is following Hyperkalemia resolved:monitor bmp closely Anemia ?acute blood loss: follow CBC closely Thrombocytopenia; monitoring CBC Myoclonic seziures: EEG ordered, Neurology managing Hypoxic ischemic Encephalopathy Liver disease: monitor CMP GITA; on CPAP at night, Colon cancer BY HX Morbidly obese, bmi 52: Dehydrator Tender consulted [facility] pending History Interval history: Patient was seen and examined. Follow-up on current diagnosis of Respiratory failure. No overnight events reported to me. Imaging, nursing note, chart, labs and old chart reviewed. Discussed with patient, and son at bedside. Extubated on 08/30/18 Hospitalist Physical - Physical exam Narrative exam: Gen: deconditioned, nad, extubated, talking, awake and alert HEENT: NCAT, EOMI, PERRL, OP Clear Neck: supple, no adenopathy, no thyromegaly, no JVD CVS/Heart: RRR, normal S1S2, pulses present bilaterally Chest/Lungs: diminished bs bilaterally, Symmetrical chest expansion, good air entry bilaterally GI/Abdomen: soft, NTND, good bowel sounds, no guarding or rebound /Bladder: no suprapubic tenderness, no CVA or paraspinal tenderness Extermity/Skin: dependent edema x 4 MSK: moving all extermities Neuro: no obvious focal deficits, equal strength. Psych: calm - Constitutional Vitals: Temp Pulse Resp BP Pulse Ox 98.5 F 72 20 168/58 95 09/02/18 13:27 09/02/18 13:27 09/02/18 13:27 09/02/18 13:27 09/02/18 13:27 General appearance: Present: other (intubated, chronically ill appearing) Results - Labs CBC & Chem 7: 09/02/18 05:16 09/02/18 05:16 Labs: Laboratory Last Values WBC 7.5 K/mm3 (4.5-11.0) 09/02/18 05:16 RBC 2.60 M/mm3 (3.65-5.03) L 09/02/18 05:16 Hgb 8.1 gm/dl (11.8-15.2) L 09/02/18 05:16 Hct 24.8 % (35.5-45.6) L 09/02/18 05:16 MCV 95 fl (84-94) H 09/02/18 05:16 MCH 31 pg (28-32) 09/02/18 05:16 MCHC 33 % (32-34) 09/02/18 05:16 RDW 17.1 % (13.2-15.2) H 09/02/18 05:16 Plt Count 151 K/mm3 (140-440) 09/02/18 05:16 Lymph % (Auto) Hotel Sales Manager 08/25/18 16:43 [place] % (Auto) Hotel Sales Manager 08/25/18 16:43 Eos % (Auto) Hotel Sales Manager 08/25/18 16:43 Baso % (Auto) Hotel Sales Manager 08/25/18 16:43 Lymph # Hotel Sales Manager 08/25/18 16:43 [place] # Hotel Sales Manager 08/25/18 16:43 Eos # Hotel Sales Manager 08/25/18 16:43 Baso # Hotel Sales Manager 08/25/18 16:43 Add Manual Diff Complete 08/25/18 16:43 Total Counted 100 08/25/18 16:43 Seg Neutrophils % Hotel Sales Manager 08/25/18 16:43 Seg Neuts % (Manual) 94.0 % (40.0-70.0) H 08/25/18 16:43 2.0 % 08/25/18 16:43 2.0 % (13.4-35.0) L 08/25/18 16:43 Reactive Lymphs % (Man) 0 % 08/25/18 16:43 2.0 % (0.0-7.3) 08/25/18 16:43 0 % (0.0-4.3) 08/25/18 16:43 0 % (0.0-1.8) 08/25/18 16:43 0 % 08/25/18 16:43 0 % 08/25/18 16:43 0 % 08/25/18 16:43 0 % 08/25/18 16:43 Nucleated RBC % Not Reportable 08/25/18 16:43 Seg Neutrophils # Hotel Sales Manager 08/25/18 16:43 Seg Neutrophils # Man 13.8 K/mm3 (1.8-7.7) H 08/25/18 16:43 Band Neutrophils # 0.3 K/mm3 08/25/18 16:43 0.3 K/mm3 (1.2-5.4) L 08/25/18 16:43 Abs React Lymphs (Man) 0.0 K/mm3 08/25/18 16:43 0.3 K/mm3 (0.0-0.8) 08/25/18 16:43 0.0 K/mm3 (0.0-0.4) 08/25/18 16:43 0.0 K/mm3 (0.0-0.1) 08/25/18 16:43 0.0 K/mm3 08/25/18 16:43 0.0 K/mm3 08/25/18 16:43 0.0 K/mm3 08/25/18 16:43 Blast Cells # 0.0 K/mm3 08/25/18 16:43 WBC Morphology Not Reportable 08/25/18 16:43 Hypersegmented Neuts Not Reportable 08/25/18 16:43 Hyposegmented Neuts Not Reportable 08/25/18 16:43 Hypogranular Neuts Not Reportable 08/25/18 16:43 Not Reportable 08/25/18 16:43 Not Reportable 08/25/18 16:43 Not Reportable 08/25/18 16:43 Not Reportable 08/25/18 16:43 Not Reportable 08/25/18 16:43 Not Reportable 08/25/18 16:43 Consistent w auto 08/25/18 16:43 Not Reportable 08/25/18 16:43 Plt Clumps, EDTA Not Reportable 08/25/18 16:43 Not Reportable 08/25/18 16:43 Not Reportable 08/25/18 16:43 Not Reportable 08/25/18 16:43 Plt Morphology Comment Not Reportable 08/25/18 16:43 RBC Morphology Not Reportable 08/25/18 16:43 Dimorphic RBCs Not Reportable 08/25/18 16:43 Not Reportable 08/25/18 16:43 1+ 08/25/18 16:43 Few 08/25/18 16:43 1+ 08/25/18 16:43 Not Reportable 08/25/18 16:43 Not Reportable 08/25/18 16:43 Not Reportable 08/25/18 16:43 Not Reportable 08/25/18 16:43 Not Reportable 08/25/18 16:43 Not Reportable 08/25/18 16:43 Not Reportable 08/25/18 16:43 Few 08/25/18 16:43 Not Reportable 08/25/18 16:43 Not Reportable 08/25/18 16:43 Not Reportable 08/25/18 16:43 Not Reportable 08/25/18 16:43 Not Reportable 08/25/18 16:43 Not Reportable 08/25/18 16:43 Not Reportable 08/25/18 16:43 Acanthocytes (Spur) Not Reportable 08/25/18 16:43 Rouleaux Not Reportable 08/25/18 16:43 Not Reportable 08/25/18 16:43 Not Reportable 08/25/18 16:43 Not Reportable 08/25/18 16:43 Not Reportable 08/25/18 16:43 Hem Pathologist Commnt No 08/25/18 16:43 PT 15.6 Sec. (12.2-14.9) H 08/25/18 16:43 INR 1.27 (0.87-1.13) H 08/25/18 16:43 APTT 30.8 Sec. (24.2-36.6) 08/21/18 04:42 1978.25 ng/mlDDU (0-234) H 08/24/18 13:41 POC ABG pH 7.410 (7.35-7.45) 08/30/18 13:35 POC ABG pCO2 41.4 (35-45) 08/30/18 13:35 POC ABG pO2 99 (80-105) 08/30/18 13:35 POC ABG HCO3 26.2 (22-26 mml/L) 08/30/18 13:35 POC ABG Total CO2 27 (23-27mmol/L) 08/30/18 13:35 POC ABG O2 Sat 98 08/30/18 13:35 POC ABG Base Excess 2 ((-2) - (+3)mmol/L) 08/30/18 13:35 30 % 08/30/18 13:35 Sodium 138 mmol/L (137-145) 09/02/18 05:16 Potassium 4.2 mmol/L (3.6-5.0) D 09/02/18 05:16 Chloride 104.0 mmol/L (98-107) 09/02/18 05:16 Carbon Dioxide 26 mmol/L (22-30) 09/02/18 05:16 12 mmol/L 09/02/18 05:16 BUN 49 mg/dL (9-20) H 09/02/18 05:16 1.8 mg/dL (0.8-1.5) H 09/02/18 05:16 Estimated GFR 37 ml/min 09/02/18 05:16 27 % 09/02/18 05:16 Glucose 107 mg/dL (75-100) H 09/02/18 05:16 POC Glucose 124 (70-105) H 09/02/18 12:01 317 Mosm/kg 08/31/18 13:54 Lactic Acid 1.30 mmol/L (0.7-2.0) 08/21/18 20:50 9.6 mg/dL (3.5-7.6) H 08/31/18 13:54 Calcium 8.1 mg/dL (8.4-10.2) L 09/02/18 05:16 Magnesium 2.00 mg/dL (1.7-2.3) 09/02/18 05:16 0.60 mg/dL (0.1-1.2) 08/28/18 04:49 AST 27 units/L (5-40) 08/28/18 04:49 ALT 12 units/L (7-56) 08/28/18 04:49 87 units/L (35-129) 08/28/18 04:49 222 units/L (55-170) H 08/21/18 10:45 CK-MB (CK-2) 9.2 ng/mL (0.0-4.0) H 08/21/18 10:45 CK-MB (CK-2) Rel Index 4.1 (0-4) H 08/21/18 10:45 0.044 ng/mL (0.00-0.029) H D 08/21/18 10:45 9.00 mg/dL (0.00-1.30) H 08/24/18 13:41 NT-Pro-B Natriuret Pep > 75110 pg/mL (0-900) H 08/28/18 04:49 5.4 g/dL (6.3-8.2) L 08/28/18 04:49 2.2 g/dL (3.9-5) L 08/28/18 04:49 0.7 % 08/28/18 04:49 Triglycerides 87 mg/dL (2-149) 08/21/18 04:42 Cholesterol 93 mg/dL (50-199) 08/21/18 04:42 44 mg/dL (50-130) L 08/21/18 04:42 41 mg/dL (40-59) 08/21/18 04:42 2.26 % 08/21/18 04:42 Yellow (Yellow) 08/21/18 15:03 Slightly-cloudy (Clear) 08/21/18 15:03 5.0 (5.0-7.0) 08/21/18 15:03 Ur Specific [place] 1.015 (1.003-1.030) 08/21/18 15:03 30 mg/dl mg/dL (Negative) 08/21/18 15:03 Neg mg/dL (Negative) 08/21/18 15:03 Neg mg/dL (Negative) 08/21/18 15:03 Mod (Negative) 08/21/18 15:03 Neg (Negative) 08/21/18 15:03 Neg (Negative) 08/21/18 15:03 < 2.0 mg/dL (<2.0) 08/21/18 15:03 Ur Leukocyte Esterase Tr (Negative) 08/21/18 15:03 13.0 /HPF (0.0-6.0) H 08/21/18 15:03 15.0 /HPF (0.0-6.0) 08/21/18 15:03 U Epithel Cells (Auto) 1.0 /HPF (0-13.0) 08/21/18 15:03 1+ /HPF (Negative) 08/21/18 15:03 Few /HPF 08/21/18 15:03 Random Vancomycin 10.5 ug/mL (0-40.0) 08/26/18 05:53 Levetiracetam 25.7 mcg/mL (12.0-46.0) 08/26/18 13:42 Hepatitis A IgM Ab Non-reactive (NonReactive) 08/27/18 23:25 Hep Bs Antigen Non-reactive (Negative) 08/27/18 23:25 Hep B Core IgM Ab Non-reactive (NonReactive) 08/27/18 23:25 Non-reactive (NonReactive) 08/27/18 23:25 Active Medications - Current Medications Current Medications: Generic Name Dose Route Start Last Admin Trade Name Freq PRN Reason Stop Dose Admin Acetaminophen 650 mg 08/21/18 06:31 09/01/18 21:12 Tylenol PO 650 mg Q4H PRN Administration Pain MILD(1-3)/Fever >100.5/COOK Albuterol/Ipratropium 1 ampul 08/24/18 20:00 09/02/18 08:03 Duoneb *Not For Prn Use* IH 1 ampul BIDRT LUIS Administration Lipase/Protease/Amylase 1 each 08/26/18 12:07 [place] 10,500 Unit FEEDTUBE PRN PRN For Clogged Feeding Tube Arformoterol Tartrate 15 mcg 08/24/18 20:00 09/02/18 08:03 Brovana Nebu IH 15 mcg Q12HRT LUIS Administration Bisacodyl 10 mg 09/02/18 12:42 Dulcolax GA QDAY PRN Constipation Budesonide 0.5 mg 08/24/18 20:00 09/02/18 08:03 Pulmicort IH 0.5 mg Q12HRT LUIS Administration Dextrose 50 ml 08/21/18 06:48 D50w (25gm) Syringe IV PRN PRN Hypoglycemia Heparin Sodium (Porcine) 5,000 unit 08/22/18 10:00 09/02/18 10:30 Heparin SUB-Q 5,000 unit Q12HR LUIS Administration Hydralazine HCl 25 mg 08/30/18 22:00 09/02/18 13:55 Apresoline PO 25 mg Q8HR LUIS Administration Insulin Human Lispro 0 unit 08/31/18 22:00 09/02/18 12:10 Humalog SUB-Q Not Given ACHS [facility] Protocol Levetiracetam 750 mg 09/02/18 22:00 Keppra PO BID LUIS Metoclopramide HCl 10 mg 08/25/18 18:00 09/02/18 05:55 Reglan IV 10 mg Q12H LUIS Administration Morphine Sulfate 2 mg 08/26/18 14:24 08/30/18 01:40 Morphine IV 2 mg Q6H PRN Administration Pain, Moderate (4-6) Ondansetron HCl 4 mg 08/21/18 06:31 Zofran IV Q8H PRN Nausea And Vomiting Sodium Chloride 10 ml 08/21/18 10:00 09/02/18 10:13 Sodium Chloride Flush Syringe 10 Ml IV 10 ml BID LUIS Administration Nutrition/Malnutrition Assess - Dietary Evaluation Nutrition/Malnutrition Findings: Nutrition Notes Start: 08/21/18 16:58 Freq: Status: Active Protocol: Document 09/01/18 19:15 RM (Rec: 09/01/18 19:23 [id number]) Nutrition Notes Initial or Follow up Reassessment Current Diagnosis Acute Kidney Injury,CKD(stage I-IV),COPD,Diabetes,Sepsis Other Pertinent Diagnosis Hx colon CA, Pneu Current Diet Cardiac/Consistent CHO Labs/Tests Reviewed Pertinent Medications Reviewed Height 5 ft 6 in Weight 146.3 kg [place] Body Weight (kg) 64.54 BMI 52.0 Subjective/Other Information Pt moved to and TF D/C'd. Diet advanced to Cardiac/ Consistent CHO. Pt and pt in room at time of visit. Pt confused at time of visit. Pt stated that pt eats half of his meals. Percent of energy/protein needs met: 51%/65% Burn Absent Trauma Absent #1 Nutrition Diagnosis Inadequate oral intake Diagnosis Progress(for reassessment Continues documentation) Is patient on ventilator? Yes Is Patient Ambulatory and/or Out of Bed No REE-([place] Jeor-confined to bed) 2592.060 Kcal/Kg value to use for calculation 14 Approximate Energy Requirements Using 2048 kcal/Kg Calculation Used for Recommendations Kcal/kg Additional Notes Protein needs: 65-84g(1-1.3g/ kg IBW) Fluid Needs: 1 ml/kcal Nutrition Intervention Change Diet Order: Continue current Add Supplement/Snack (indicate name/kcal Glucerna Chocolate, [place] /protein ) 1 daily Provides kCal: 220 Provides Protein (gm) 10 Goal #1 Meet at least 75% of kcal and protein needs via PO intakes Anticipated Discharge Needs: Unable to determine at this time Follow-Up By: 09/05/18 Additional Comments Follow for PO and ONS intakes
[2018-09-02] MEDS: KEPPRA PO SCH (21:09)
[2018-09-03] MEDS: APRESOLINE PO SCH ×3 (07:06→21:26)
[2018-09-03] MEDS: REGLAN IV SCH ×2 (07:07→22:26)
[2018-09-03] MEDS: PULMICORT IH SCH ×2 (08:20→20:26)
[2018-09-03] MEDS: DUONEB *Not for PRN Use IH SCH ×2 (08:20→20:27)
[2018-09-03] MEDS: BROVANA NEBU IH SCH ×2 (08:20→20:26)
[2018-09-03] MEDS: KEPPRA PO SCH ×2 (10:10→21:26)
--- NOTE | 2018-09-03 10:10 | Progress Note ---
Subjective Principal diagnosis: s/p cardiac arrest; severe sepsis; acute hypoxemic- hypercapnic resp failure Interval history: Patient was seen today for follow-up on multiple renal related issues Events of this hospitalization noted No acute complaints No new labs today Vitals labs intake output medications were reviewed Social history: Reviewed Allergies: Reviewed Family history: Reviewed Physical examination HEENT: Oral mucosa moist no pallor or icterus Neck: Supple no JVD Chest: Clear to auscultation anteriorly CVS: Regular rate and rhythm S1 and S2 heard Abdomen: Soft nontender no suprapubic masses no organomegaly appreciable Extremity: Dry skin less than 1+ peripheral edema Musculoskeletal: No joint effusion noted in knees and ankle Neurological: Alert awake Dermatology: No petechial rashes Psychiatry: No evidence of any agitation and aggression noted Assessment and plan; Acute kidney injury requiring renal replacement therapy, renal function appears to have stabilized From renal standpoint patient's blood pressure is mildly elevated 167/54 He will need a follow-up labs, may require Aldactone, potassium was low, blood pressure was elevated Monitor renal labs periodically Will order for renal arterial Doppler Will give him erythropoietin 20,000 units subcutaneous time 1 hemoglobin has been around 8.18.2 for the last 4 days We'll continue to follow avoid any form of nephrotoxic medications Renal ultrasonogram obtained during this admission shows slightly atrophic left kidney? Renovascular disease? Renovascular hypertension, Acute kidney injury with underlying chronic kidney disease in a patient who has had cardiopulmonary arrest resulting in hypoxemia respiratory failure likely et iology for renal failure appears to be due to acute tubular necrosis: Severe Avoid any form of nephrotoxic medication continue with supportive care Multiple underlying comorbidities including cardiopulmonary arrest, lactic acidosis, COPD, non-ST elevation [place], diabetes Overall prognosis guarded to poor We'll continue to follow and make recommendation from renal standpoint Objective - Vital Signs Vital signs: Vital Signs - 12hr 09/02/18 09/02/18 09/03/18 23:09 23:14 00:57 Temperature 98.4 F Pulse Rate 64 79 Respiratory 20 16 Rate Blood Pressure 175/70 O2 Sat by Pulse 94 96 Oximetry 09/03/18 09/03/18 09/03/18 00:59 04:18 04:19 Temperature 97.6 F Pulse Rate 69 Respiratory 18 Rate Blood Pressure 169/72 O2 Sat by Pulse 96 96 Oximetry 09/03/18 09:21 Temperature 98.1 F Pulse Rate 77 Respiratory 20 Rate Blood Pressure 167/54 O2 Sat by Pulse 96 Oximetry - Lab 09/02/18 05:16 09/02/18 05:16 Most recent lab results Calcium 8.1 mg/dL (8.4-10.2) L 09/02/18 05:16 Magnesium 2.00 mg/dL (1.7-2.3) 09/02/18 05:16 Medications & Allergies - Medications Allergies/Adverse Reactions: Allergies Penicillins Allergy (Verified 08/21/18 04:49) Unknown -cillins Allergy (Uncoded 08/21/18 04:49) Unknown Home Medications: Home Medications Medication Instructions Recorded Confirmed Last Taken Type AtorvaSTATin [Lipitor] 10 mg PO QHS 08/21/18 08/21/18 Unknown History Ferrous Sulfate [Feosol] 325 mg PO QDAY 08/21/18 08/21/18 Unknown History Melatonin [Melatonin 10MG CAP] 10 mg PO DAILY 08/21/18 08/21/18 Unknown History NIFEdipine [Nifedipine ER] 60 mg PO BID 08/21/18 08/21/18 Unknown History Sennosides Tab [Senokot] 1 tab PO HS 08/21/18 08/21/18 Unknown History Tamsulosin [Flomax] 2 cap PO HS 08/21/18 08/21/18 Unknown History Torsemide [Demadex] 20 mg PO DAILY 08/21/18 08/21/18 Unknown History Venlafaxine HCl [Venlafaxin ER] 75 mg PO QDAY 08/21/18 08/21/18 Unknown History buPROPion [Wellbutrin] 100 mg PO DAILY 08/21/18 08/21/18 Unknown History Active Medications: Generic Name Dose Route Start Last Admin Trade Name Freq PRN Reason Stop Dose Admin Acetaminophen 650 mg 08/21/18 06:31 09/01/18 21:12 Tylenol PO 650 mg Q4H PRN Administration Pain MILD(1-3)/Fever >100.5/COOK Albuterol/Ipratropium 1 ampul 08/24/18 20:00 09/03/18 08:20 Duoneb *Not For Prn Use* IH 1 ampul BIDRT LUIS Administration Lipase/Protease/Amylase 1 each 08/26/18 12:07 Pancream[place] 10,500 Unit FEEDTUBE PRN PRN For Clogged Feeding Tube Arformoterol Tartrate 15 mcg 08/24/18 20:00 09/03/18 08:20 Brovana Nebu IH 15 mcg Q12HRT LUIS Administration Bisacodyl 10 mg 09/02/18 12:42 Dulcolax RI QDAY PRN Constipation Budesonide 0.5 mg 08/24/18 20:00 09/03/18 08:20 Pulmicort IH 0.5 mg Q12HRT LUIS Administration Dextrose 50 ml 08/21/18 06:48 D50w (25gm) Syringe IV PRN PRN Hypoglycemia Heparin Sodium (Porcine) 5,000 unit 08/22/18 10:00 09/02/18 21:09 Heparin SUB-Q 5,000 unit Q12HR LUIS Administration Hydralazine HCl 25 mg 08/30/18 22:00 09/03/18 07:06 Apresoline PO 25 mg Q8HR LUIS Administration Insulin Human Lispro 0 unit 08/31/18 22:00 09/02/18 22:55 Humalog SUB-Q Not Given ACHS [facility] Protocol Levetiracetam 750 mg 09/02/18 22:00 09/02/18 21:09 Keppra PO 750 mg BID LUIS Administration Metoclopramide HCl 10 mg 08/25/18 18:00 09/03/18 07:07 Reglan IV 10 mg Q12H LUIS Administration Morphine Sulfate 2 mg 08/26/18 14:24 08/30/18 01:40 Morphine IV 2 mg Q6H PRN Administration Pain, Moderate (4-6) Ondansetron HCl 4 mg 08/21/18 06:31 Zofran IV Q8H PRN Nausea And Vomiting Sodium Chloride 10 ml 08/21/18 10:00 09/02/18 21:09 Sodium Chloride Flush Syringe 10 Ml IV 10 ml BID LUIS Administration
[2018-09-03] MEDS: SODIUM CHLORIDE FLUSH SYRINGE 10 ML IV SCH ×2 (10:11→21:26)
[2018-09-03] MEDS: HEPARIN SUB-Q SCH ×2 (10:11→21:26)
[2018-09-03] MEDS: HumaLOG SUB-Q SCH ×4 (10:12→22:27)
[2018-09-03] MEDS ORDERED: PROCRIT SUB-Q ONE (11:11)
--- NOTE | 2018-09-03 14:28 | Progress Note ---
Assessment and Plan s/p Cardiopulmonary arrest with ROSC Acute on chronic hypoxemic respiratory failure on MVS Lactic acidosis Acute metabolic/respiratory acidosis Acute on chronic renal failure (multifactorial) Sepsis probably secondary to aspiration PNA AE-COPD Acute metabolic-toxic encephalopathy Morbid obesity NSTEMI- probably type 2 ischemia Type 2 DM h/o Liver disease h/o Colon CA Hyperkalemia LEFT TMJ JOINT DISLOCATION-POA - VQ scan ordered for tuesday with CXR - continue scheduled BIPAP qhs with prn daytime use - continue HD/UF for toxin and volume clearance - repeat CXR prn at this point - continue brovana and pulmicort for severe COPD history / exacerbation (reduced JENELLE frequency) - Will need maxillo facial surgery for evaluation of TMJ dislocation - continue supplemental oxygen to keep O2 sats >/= 88-90% - continue bronchodilators with pulmonary hygiene per RT - systemic steroids tapered off - continue accuchecks with glycemic control per SSI for target blood glucose <180mg/dL - Antibiotics per ID - Avoid nephrotoxic agents, adjust all antibiotics and medications for CrCL and GFR - VTE and Stress ulcer prophylaxis( Heparin/Famotidine) - continue other care per attending / other consultants .... care plan discussed at length with his in room CODE STATUS: FULL CODE Subjective Date of service: 09/03/18 Principal diagnosis: s/p cardiac arrest; severe sepsis; acute hypoxemic- hypercapnic resp failure Interval history: Patient is seen today for: cardiopulmonary arrest; severe sepsis; acute hypoxemic-hypercapnic respiratory failure on MVS; edgar on ckd Seen and examined at bedside; 24hour events reviewed; nursing and respiratory care staff consulted; no adverse overnight events reported to me; resting peacefully in bed; remains on supplemental oxygen; No N/V/F/C Objective Vital Signs - 12hr 09/03/18 09/03/18 09/03/18 04:18 04:19 07:00 Temperature 97.6 F Pulse Rate 69 73 Pulse Rate [ 73 Apical] Respiratory 18 18 Rate Blood Pressure 169/72 O2 Sat by Pulse 96 95 Oximetry 09/03/18 09:21 Temperature 98.1 F Pulse Rate 77 Pulse Rate [ Apical] Respiratory 20 Rate Blood Pressure 167/54 O2 Sat by Pulse 96 Oximetry Constitutional: alert, appears uncomfortable, other (morbidly obese, orally intubated, 7.5ETT at 24cm at the lip, no dys-synchrony) Eyes: non-icteric ENT: oropharynx moist, other (extubated) Neck: supple, no JVD, other (short neck) Effort: mildly labored Ascultation: Bilateral: diminished breath sounds, rhonchi (improved overall) Percussion: Bilateral: not dull Cardiovascular: regular rate and rhythm, other (S1,S2, no murmurs, no gallops or rubs) Gastrointestinal: normoactive bowel sounds, soft, non-tender, non-distended, other (Madison catheter in place, minimal urine tea colored) Integumentary: normal Extremities: no cyanosis, no edema, pink and warm, pulses normal, no ischemia or petechiae Neurologic: normal mental status, non-focal exam (grossly), pupils equal and round, CN II-XII normal Psychiatric: mood appropriate, affect normal CBC and BMP: 09/05/18 07:03 09/05/18 07:03 ABG, PT/INR, D-dimer: ABG POC ABG pH 7.410 (7.35-7.45) 08/30/18 13:35 POC ABG pCO2 41.4 (35-45) 08/30/18 13:35 POC ABG pO2 99 (80-105) 08/30/18 13:35 POC ABG HCO3 26.2 (22-26 mml/L) 08/30/18 13:35 POC ABG Total CO2 27 (23-27mmol/L) 08/30/18 13:35 POC ABG O2 Sat 98 08/30/18 13:35 PT/INR, D-dimer PT 15.6 Sec. (12.2-14.9) H 08/25/18 16:43 INR 1.27 (0.87-1.13) H 08/25/18 16:43 1978.25 ng/mlDDU (0-234) H 08/24/18 13:41 Abnormal lab findings: Abnormal Labs 08/21/18 08/21/18 08/21/18 04:42 04:42 04:42 WBC 19.1 H RBC 2.49 L Hgb 7.7 L Hct 24.5 L MCV 98 H RDW 17.7 H Plt Count Seg Neuts % (Manual) 84.0 H Lymphocytes % (Manual) 7.0 L Monocytes % (Manual) 9.0 H Nucleated RBC % Seg Neutrophils # Man 16.0 H Lymphocytes # (Manual) Monocytes # (Manual) 1.7 H PT 20.1 H INR 1.76 H D-Dimer POC ABG pH POC ABG pCO2 POC ABG pO2 Sodium Potassium Chloride Carbon Dioxide BUN Creatinine Glucose POC Glucose Lactic Acid Uric Acid Calcium Total Bilirubin AST ALT Total Creatine Kinase CK-MB (CK-2) CK-MB (CK-2) Rel Index Troponin T 0.032 H C-Reactive Protein NT-Pro-B Natriuret Pep Total Protein Albumin LDL Cholesterol Direct 44 L Urine WBC (Auto) 08/21/18 08/21/18 08/21/18 04:42 04:42 04:42 WBC RBC Hgb Hct MCV RDW Plt Count Seg Neuts % (Manual) Lymphocytes % (Manual) Monocytes % (Manual) Nucleated RBC % Seg Neutrophils # Man Lymphocytes # (Manual) Monocytes # (Manual) PT INR D-Dimer POC ABG pH POC ABG pCO2 POC ABG pO2 Sodium Potassium 6.0 H Chloride Carbon Dioxide 15 L BUN 57 H Creatinine 4.3 H Glucose 111 H POC Glucose Lactic Acid 5.80 H* Uric Acid Calcium Total Bilirubin 1.80 H AST 212 H ALT 94 H Total Creatine Kinase CK-MB (CK-2) CK-MB (CK-2) Rel Index Troponin T C-Reactive Protein NT-Pro-B Natriuret Pep 76932 H Total Protein Albumin 3.2 L LDL Cholesterol Direct Urine WBC (Auto) 08/21/18 08/21/18 08/21/18 05:08 05:58 05:58 WBC RBC Hgb Hct MCV RDW Plt Count Seg Neuts % (Manual) Lymphocytes % (Manual) Monocytes % (Manual) Nucleated RBC % Seg Neutrophils # Man Lymphocytes # (Manual) Monocytes # (Manual) PT INR D-Dimer POC ABG pH 7.164 L POC ABG pCO2 46.3 H POC ABG pO2 229 H Sodium Potassium Chloride Carbon Dioxide BUN Creatinine Glucose POC Glucose Lactic Acid 5.10 H* Uric Acid Calcium Total Bilirubin AST ALT Total Creatine Kinase CK-MB (CK-2) CK-MB (CK-2) Rel Index Troponin T 0.035 H C-Reactive Protein NT-Pro-B Natriuret Pep Total Protein Albumin LDL Cholesterol Direct Urine WBC (Auto) 06/24/19 06/24/19 06/24/19 06:45 06:45 06:53 WBC RBC Hgb Hct MCV RDW Plt Count Seg Neuts % (Manual) Lymphocytes % (Manual) Monocytes % (Manual) Nucleated RBC % Seg Neutrophils # Man Lymphocytes # (Manual) Monocytes # (Manual) PT INR D-Dimer POC ABG pH 7.160 L POC ABG pCO2 46.8 H POC ABG pO2 Sodium Potassium Chloride Carbon Dioxide BUN Creatinine Glucose POC Glucose Lactic Acid 4.70 H* Uric Acid Calcium Total Bilirubin AST ALT Total Creatine Kinase 234 H CK-MB (CK-2) 9.1 H CK-MB (CK-2) Rel Index Troponin T 0.032 H C-Reactive Protein NT-Pro-B Natriuret Pep Total Protein Albumin LDL Cholesterol Direct Urine WBC (Auto) 08/21/18 08/21/18 08/21/18 10:43 10:43 10:45 WBC RBC Hgb Hct MCV RDW Plt Count Seg Neuts % (Manual) Lymphocytes % (Manual) Monocytes % (Manual) Nucleated RBC % Seg Neutrophils # Man Lymphocytes # (Manual) Monocytes # (Manual) PT INR D-Dimer POC ABG pH POC ABG pCO2 POC ABG pO2 Sodium Potassium Chloride Carbon Dioxide 17 L BUN 59 H Creatinine 4.2 H Glucose POC Glucose Lactic Acid 3.70 H* Uric Acid Calcium Total Bilirubin AST ALT Total Creatine Kinase 222 H CK-MB (CK-2) 9.2 H CK-MB (CK-2) Rel Index 4.1 H Troponin T 0.044 H D C-Reactive Protein NT-Pro-B Natriuret Pep Total Protein Albumin LDL Cholesterol Direct Urine WBC (Auto) 08/21/18 08/21/18 08/21/18 11:38 12:33 15:03 WBC RBC Hgb Hct MCV RDW Plt Count Seg Neuts % (Manual) Lymphocytes % (Manual) Monocytes % (Manual) Nucleated RBC % Seg Neutrophils # Man Lymphocytes # (Manual) Monocytes # (Manual) PT INR D-Dimer POC ABG pH 7.250 L POC ABG pCO2 POC ABG pO2 121 H Sodium Potassium Chloride Carbon Dioxide BUN Creatinine Glucose POC Glucose 129 H Lactic Acid Uric Acid Calcium Total Bilirubin AST ALT Total Creatine Kinase CK-MB (CK-2) CK-MB (CK-2) Rel Index Troponin T C-Reactive Protein NT-Pro-B Natriuret Pep Total Protein Albumin LDL Cholesterol Direct Urine WBC (Auto) 13.0 H 08/21/18 08/22/18 08/22/18 15:47 00:01 04:27 WBC RBC Hgb Hct MCV RDW Plt Count Seg Neuts % (Manual) Lymphocytes % (Manual) Monocytes % (Manual) Nucleated RBC % Seg Neutrophils # Man Lymphocytes # (Manual) Monocytes # (Manual) PT INR D-Dimer POC ABG pH 7.457 H POC ABG pCO2 POC ABG pO2 117 H Sodium Potassium Chloride Carbon Dioxide BUN Creatinine Glucose POC Glucose 211 H Lactic Acid 2.70 H* Uric Acid Calcium Total Bilirubin AST ALT Total Creatine Kinase CK-MB (CK-2) CK-MB (CK-2) Rel Index Troponin T C-Reactive Protein NT-Pro-B Natriuret Pep Total Protein Albumin LDL Cholesterol Direct Urine WBC (Auto) 08/22/18 08/22/18 08/22/18 05:46 06:10 06:10 WBC RBC 2.27 L Hgb 7.0 L Hct 21.2 L MCV RDW 16.8 H Plt Count 129 L Seg Neuts % (Manual) 95.0 H Lymphocytes % (Manual) 1.0 L Monocytes % (Manual) Nucleated RBC % 1.0 H Seg Neutrophils # Man 7.8 H Lymphocytes # (Manual) 0.1 L Monocytes # (Manual) PT INR D-Dimer POC ABG pH POC ABG pCO2 POC ABG pO2 Sodium Potassium Chloride Carbon Dioxide 20 L BUN 63 H Creatinine 3.9 H Glucose 205 H POC Glucose 223 H Lactic Acid Uric Acid Calcium Total Bilirubin AST ALT Total Creatine Kinase CK-MB (CK-2) CK-MB (CK-2) Rel Index Troponin T C-Reactive Protein NT-Pro-B Natriuret Pep Total Protein Albumin LDL Cholesterol Direct Urine WBC (Auto) 08/22/18 08/22/18 08/22/18 06:10 12:57 16:21 WBC RBC Hgb Hct MCV RDW Plt Count Seg Neuts % (Manual) Lymphocytes % (Manual) Monocytes % (Manual) Nucleated RBC % Seg Neutrophils # Man Lymphocytes # (Manual) Monocytes # (Manual) PT INR D-Dimer POC ABG pH 7.477 H POC ABG pCO2 POC ABG pO2 Sodium Potassium Chloride Carbon Dioxide BUN Creatinine Glucose POC Glucose 166 H Lactic Acid Uric Acid Calcium Total Bilirubin AST ALT Total Creatine Kinase CK-MB (CK-2) CK-MB (CK-2) Rel Index Troponin T C-Reactive Protein 23.60 H NT-Pro-B Natriuret Pep Total Protein Albumin LDL Cholesterol Direct Urine WBC (Auto) 08/22/18 08/22/18 08/23/18 17:41 23:42 04:38 WBC RBC Hgb Hct MCV RDW Plt Count Seg Neuts % (Manual) Lymphocytes % (Manual) Monocytes % (Manual) Nucleated RBC % Seg Neutrophils # Man Lymphocytes # (Manual) Monocytes # (Manual) PT INR D-Dimer POC ABG pH 7.249 L POC ABG pCO2 53.5 H POC ABG pO2 73 L Sodium Potassium Chloride Carbon Dioxide BUN Creatinine Glucose POC Glucose 131 H 168 H Lactic Acid Uric Acid Calcium Total Bilirubin AST ALT Total Creatine Kinase CK-MB (CK-2) CK-MB (CK-2) Rel Index Troponin T C-Reactive Protein NT-Pro-B Natriuret Pep Total Protein Albumin LDL Cholesterol Direct Urine WBC (Auto) 08/23/18 08/23/18 08/23/18 04:52 04:52 04:52 WBC RBC 2.39 L Hgb 7.5 L Hct 22.8 L MCV 95 H RDW 17.6 H Plt Count Seg Neuts % (Manual) Lymphocytes % (Manual) Monocytes % (Manual) Nucleated RBC % Seg Neutrophils # Man Lymphocytes # (Manual) Monocytes # (Manual) PT INR D-Dimer POC ABG pH POC ABG pCO2 POC ABG pO2 Sodium Potassium 5.6 H 5.6 H Chloride Carbon Dioxide 21 L BUN 71 H 72 H Creatinine 4.1 H 4.0 H Glucose 141 H 140 H POC Glucose Lactic Acid Uric Acid Calcium 8.3 L 8.2 L Total Bilirubin AST 247 H ALT 220 H Total Creatine Kinase CK-MB (CK-2) CK-MB (CK-2) Rel Index Troponin T C-Reactive Protein NT-Pro-B Natriuret Pep Total Protein Albumin 2.8 L LDL Cholesterol Direct Urine WBC (Auto) 08/23/18 08/23/18 08/23/18 05:50 08:38 12:21 WBC RBC Hgb Hct MCV RDW Plt Count Seg Neuts % (Manual) Lymphocytes % (Manual) Monocytes % (Manual) Nucleated RBC % Seg Neutrophils # Man Lymphocytes # (Manual) Monocytes # (Manual) PT INR D-Dimer POC ABG pH POC ABG pCO2 POC ABG pO2 Sodium Potassium Chloride Carbon Dioxide BUN Creatinine Glucose POC Glucose 160 H 177 H Lactic Acid Uric Acid Calcium Total Bilirubin AST ALT Total Creatine Kinase CK-MB (CK-2) CK-MB (CK-2) Rel Index Troponin T C-Reactive Protein NT-Pro-B Natriuret Pep 87883 H Total Protein Albumin LDL Cholesterol Direct Urine WBC (Auto) 08/23/18 08/23/18 08/23/18 12:36 14:24 18:05 WBC RBC Hgb Hct MCV RDW Plt Count Seg Neuts % (Manual) Lymphocytes % (Manual) Monocytes % (Manual) Nucleated RBC % Seg Neutrophils # Man Lymphocytes # (Manual) Monocytes # (Manual) PT INR D-Dimer POC ABG pH 7.337 L POC ABG pCO2 POC ABG pO2 145 H Sodium 136 L Potassium 5.2 H Chloride Carbon Dioxide BUN 76 H Creatinine 4.2 H Glucose 158 H POC Glucose 169 H Lactic Acid Uric Acid Calcium 8.1 L Total Bilirubin AST ALT Total Creatine Kinase CK-MB (CK-2) CK-MB (CK-2) Rel Index Troponin T C-Reactive Protein NT-Pro-B Natriuret Pep Total Protein Albumin LDL Cholesterol Direct Urine WBC (Auto) 08/23/18 08/23/18 08/24/18 22:43 23:42 05:16 WBC RBC Hgb Hct MCV RDW Plt Count Seg Neuts % (Manual) Lymphocytes % (Manual) Monocytes % (Manual) Nucleated RBC % Seg Neutrophils # Man Lymphocytes # (Manual) Monocytes # (Manual) PT INR D-Dimer POC ABG pH POC ABG pCO2 POC ABG pO2 Sodium 136 L Potassium 5.3 H 5.2 H Chloride 97.9 L Carbon Dioxide BUN 80 H 86 H Creatinine 4.0 H 4.3 H Glucose 164 H 202 H POC Glucose 183 H Lactic Acid Uric Acid Calcium 7.9 L Total Bilirubin AST ALT Total Creatine Kinase CK-MB (CK-2) CK-MB (CK-2) Rel Index Troponin T C-Reactive Protein NT-Pro-B Natriuret Pep Total Protein Albumin LDL Cholesterol Direct Urine WBC (Auto) 08/24/18 08/24/18 08/24/18 05:21 05:29 10:10 WBC RBC 2.47 L Hgb 7.5 L Hct 23.3 L MCV RDW 17.5 H Plt Count 118 L Seg Neuts % (Manual) 92.0 H Lymphocytes % (Manual) 2.0 L Monocytes % (Manual) Nucleated RBC % Seg Neutrophils # Man 8.8 H Lymphocytes # (Manual) 0.2 L Monocytes # (Manual) PT INR D-Dimer POC ABG pH 7.243 L POC ABG pCO2 56.8 H POC ABG pO2 Sodium Potassium Chloride Carbon Dioxide BUN Creatinine Glucose POC Glucose 209 H Lactic Acid Uric Acid Calcium Total Bilirubin AST ALT Total Creatine Kinase CK-MB (CK-2) CK-MB (CK-2) Rel Index Troponin T C-Reactive Protein NT-Pro-B Natriuret Pep Total Protein Albumin LDL Cholesterol Direct Urine WBC (Auto) 08/24/18 08/24/18 08/24/18 10:10 11:19 13:41 WBC RBC Hgb Hct MCV RDW Plt Count Seg Neuts % (Manual) Lymphocytes % (Manual) Monocytes % (Manual) Nucleated RBC % Seg Neutrophils # Man Lymphocytes # (Manual) Monocytes # (Manual) PT INR D-Dimer 1978.25 H POC ABG pH POC ABG pCO2 POC ABG pO2 Sodium Potassium Chloride Carbon Dioxide BUN Creatinine Glucose POC Glucose 212 H Lactic Acid Uric Acid Calcium Total Bilirubin AST ALT Total Creatine Kinase CK-MB (CK-2) CK-MB (CK-2) Rel Index Troponin T C-Reactive Protein NT-Pro-B Natriuret Pep 41116 H Total Protein Albumin LDL Cholesterol Direct Urine WBC (Auto) 08/24/18 08/24/18 08/24/18 13:41 14:27 17:23 WBC RBC Hgb Hct MCV RDW Plt Count Seg Neuts % (Manual) Lymphocytes % (Manual) Monocytes % (Manual) Nucleated RBC % Seg Neutrophils # Man Lymphocytes # (Manual) Monocytes # (Manual) PT INR D-Dimer POC ABG pH POC ABG pCO2 POC ABG pO2 Sodium 136 L Potassium 5.1 H Chloride 97.8 L Carbon Dioxide BUN 90 H Creatinine 4.1 H Glucose 157 H POC Glucose 155 H Lactic Acid Uric Acid Calcium 8.0 L Total Bilirubin AST ALT Total Creatine Kinase CK-MB (CK-2) CK-MB (CK-2) Rel Index Troponin T C-Reactive Protein 9.00 H NT-Pro-B Natriuret Pep Total Protein Albumin LDL Cholesterol Direct Urine WBC (Auto) 08/25/18 08/25/18 08/25/18 00:38 05:22 05:57 WBC RBC Hgb Hct MCV RDW Plt Count Seg Neuts % (Manual) Lymphocytes % (Manual) Monocytes % (Manual) Nucleated RBC % Seg Neutrophils # Man Lymphocytes # (Manual) Monocytes # (Manual) PT INR D-Dimer POC ABG pH 7.238 L POC ABG pCO2 58.2 H POC ABG pO2 Sodium Potassium 5.4 H Chloride Carbon Dioxide BUN 98 H Creatinine 4.3 H Glucose 217 H POC Glucose 176 H Lactic Acid Uric Acid Calcium 8.3 L Total Bilirubin AST ALT Total Creatine Kinase CK-MB (CK-2) CK-MB (CK-2) Rel Index Troponin T C-Reactive Protein NT-Pro-B Natriuret Pep 95547 H Total Protein Albumin LDL Cholesterol Direct Urine WBC (Auto) 08/25/18 08/25/18 08/25/18 06:56 08:59 11:38 WBC RBC Hgb Hct MCV RDW Plt Count Seg Neuts % (Manual) Lymphocytes % (Manual) Monocytes % (Manual) Nucleated RBC % Seg Neutrophils # Man Lymphocytes # (Manual) Monocytes # (Manual) PT INR D-Dimer POC ABG pH 7.348 L POC ABG pCO2 48.6 H POC ABG pO2 Sodium Potassium Chloride Carbon Dioxide BUN Creatinine Glucose POC Glucose 247 H 235 H Lactic Acid Uric Acid Calcium Total Bilirubin AST ALT Total Creatine Kinase CK-MB (CK-2) CK-MB (CK-2) Rel Index Troponin T C-Reactive Protein NT-Pro-B Natriuret Pep Total Protein Albumin LDL Cholesterol Direct Urine WBC (Auto) 08/25/18 08/25/18 08/25/18 12:29 16:43 16:43 WBC 14.7 H RBC 2.90 L Hgb 8.9 L Hct 27.4 L MCV 95 H RDW 17.3 H Plt Count 119 L Seg Neuts % (Manual) 94.0 H Lymphocytes % (Manual) 2.0 L Monocytes % (Manual) Nucleated RBC % Seg Neutrophils # Man 13.8 H Lymphocytes # (Manual) 0.3 L Monocytes # (Manual) PT 15.6 H INR 1.27 H D-Dimer POC ABG pH POC ABG pCO2 POC ABG pO2 Sodium Potassium Chloride Carbon Dioxide BUN Creatinine Glucose POC Glucose 237 H Lactic Acid Uric Acid Calcium Total Bilirubin AST ALT Total Creatine Kinase CK-MB (CK-2) CK-MB (CK-2) Rel Index Troponin T C-Reactive Protein NT-Pro-B Natriuret Pep Total Protein Albumin LDL Cholesterol Direct Urine WBC (Auto) 08/25/18 08/26/18 08/26/18 17:22 00:16 04:56 WBC RBC Hgb Hct MCV RDW Plt Count Seg Neuts % (Manual) Lymphocytes % (Manual) Monocytes % (Manual) Nucleated RBC % Seg Neutrophils # Man Lymphocytes # (Manual) Monocytes # (Manual) PT INR D-Dimer POC ABG pH POC ABG pCO2 45.2 H POC ABG pO2 Sodium Potassium Chloride Carbon Dioxide BUN Creatinine Glucose POC Glucose 200 H 180 H Lactic Acid Uric Acid Calcium Total Bilirubin AST ALT Total Creatine Kinase CK-MB (CK-2) CK-MB (CK-2) Rel Index Troponin T C-Reactive Protein NT-Pro-B Natriuret Pep Total Protein Albumin LDL Cholesterol Direct Urine WBC (Auto) 08/26/18 08/26/18 08/26/18 05:53 06:20 08:48 WBC RBC Hgb Hct MCV RDW Plt Count Seg Neuts % (Manual) Lymphocytes % (Manual) Monocytes % (Manual) Nucleated RBC % Seg Neutrophils # Man Lymphocytes # (Manual) Monocytes # (Manual) PT INR D-Dimer POC ABG pH POC ABG pCO2 POC ABG pO2 Sodium Potassium Chloride Carbon Dioxide BUN 106 H Creatinine 3.9 H Glucose 137 H POC Glucose 131 H 126 H Lactic Acid Uric Acid Calcium 8.1 L Total Bilirubin AST ALT Total Creatine Kinase CK-MB (CK-2) CK-MB (CK-2) Rel Index Troponin T C-Reactive Protein NT-Pro-B Natriuret Pep > 95805 H Total Protein Albumin LDL Cholesterol Direct Urine WBC (Auto) 08/26/18 08/26/18 08/26/18 11:39 17:33 18:02 WBC RBC Hgb Hct MCV RDW Plt Count Seg Neuts % (Manual) Lymphocytes % (Manual) Monocytes % (Manual) Nucleated RBC % Seg Neutrophils # Man Lymphocytes # (Manual) Monocytes # (Manual) PT INR D-Dimer POC ABG pH POC ABG pCO2 POC ABG pO2 58 L Sodium Potassium Chloride Carbon Dioxide BUN Creatinine Glucose POC Glucose 156 H 173 H Lactic Acid Uric Acid Calcium Total Bilirubin AST ALT Total Creatine Kinase CK-MB (CK-2) CK-MB (CK-2) Rel Index Troponin T C-Reactive Protein NT-Pro-B Natriuret Pep Total Protein Albumin LDL Cholesterol Direct Urine WBC (Auto) 08/26/18 08/27/18 08/27/18 23:12 04:59 11:51 WBC RBC Hgb Hct MCV RDW Plt Count Seg Neuts % (Manual) Lymphocytes % (Manual) Monocytes % (Manual) Nucleated RBC % Seg Neutrophils # Man Lymphocytes # (Manual) Monocytes # (Manual) PT INR D-Dimer POC ABG pH 7.563 H POC ABG pCO2 < 30 L POC ABG pO2 69 L Sodium Potassium Chloride Carbon Dioxide BUN Creatinine Glucose POC Glucose 130 H 107 H Lactic Acid Uric Acid Calcium Total Bilirubin AST ALT Total Creatine Kinase CK-MB (CK-2) CK-MB (CK-2) Rel Index Troponin T C-Reactive Protein NT-Pro-B Natriuret Pep Total Protein Albumin LDL Cholesterol Direct Urine WBC (Auto) 08/27/18 08/27/18 08/27/18 11:58 11:58 11:58 WBC RBC 2.66 L Hgb 8.1 L Hct 24.7 L MCV RDW 16.7 H Plt Count Seg Neuts % (Manual) Lymphocytes % (Manual) Monocytes % (Manual) Nucleated RBC % Seg Neutrophils # Man Lymphocytes # (Manual) Monocytes # (Manual) PT INR D-Dimer POC ABG pH POC ABG pCO2 POC ABG pO2 Sodium Potassium Chloride Carbon Dioxide BUN 71 H Creatinine 2.9 H Glucose POC Glucose Lactic Acid Uric Acid Calcium 7.6 L Total Bilirubin AST ALT Total Creatine Kinase CK-MB (CK-2) CK-MB (CK-2) Rel Index Troponin T C-Reactive Protein NT-Pro-B Natriuret Pep > 25864 H Total Protein 6.1 L Albumin 2.4 L LDL Cholesterol Direct Urine WBC (Auto) 08/28/18 08/28/18 08/28/18 04:38 04:49 04:49 WBC RBC 2.65 L Hgb 8.3 L Hct 25.3 L MCV 96 H RDW 17.3 H Plt Count 83 L Seg Neuts % (Manual) Lymphocytes % (Manual) Monocytes % (Manual) Nucleated RBC % Seg Neutrophils # Man Lymphocytes # (Manual) Monocytes # (Manual) PT INR D-Dimer POC ABG pH POC ABG pCO2 POC ABG pO2 112 H Sodium Potassium Chloride Carbon Dioxide BUN Creatinine Glucose POC Glucose Lactic Acid Uric Acid Calcium Total Bilirubin AST ALT Total Creatine Kinase CK-MB (CK-2) CK-MB (CK-2) Rel Index Troponin T C-Reactive Protein NT-Pro-B Natriuret Pep > 56683 H Total Protein Albumin LDL Cholesterol Direct Urine WBC (Auto) 08/28/18 08/28/18 08/29/18 04:49 14:24 00:11 WBC RBC Hgb Hct MCV RDW Plt Count Seg Neuts % (Manual) Lymphocytes % (Manual) Monocytes % (Manual) Nucleated RBC % Seg Neutrophils # Man Lymphocytes # (Manual) Monocytes # (Manual) PT INR D-Dimer POC ABG pH 7.278 L POC ABG pCO2 57.9 H POC ABG pO2 79 L Sodium Potassium Chloride Carbon Dioxide BUN 69 H Creatinine 2.4 H Glucose POC Glucose 171 H Lactic Acid Uric Acid Calcium 7.7 L Total Bilirubin AST ALT Total Creatine Kinase CK-MB (CK-2) CK-MB (CK-2) Rel Index Troponin T C-Reactive Protein NT-Pro-B Natriuret Pep Total Protein 5.4 L Albumin 2.2 L LDL Cholesterol Direct Urine WBC (Auto) 08/29/18 08/29/18 08/29/18 04:39 05:35 05:35 WBC 13.6 H RBC 3.09 L Hgb 9.4 L Hct 29.5 L MCV 96 H RDW 17.9 H Plt Count 127 L Seg Neuts % (Manual) Lymphocytes % (Manual) Monocytes % (Manual) Nucleated RBC % Seg Neutrophils # Man Lymphocytes # (Manual) Monocytes # (Manual) PT INR D-Dimer POC ABG pH 7.312 L POC ABG pCO2 57.6 H POC ABG pO2 79 L Sodium Potassium Chloride Carbon Dioxide BUN 42 H Creatinine 1.9 H Glucose 107 H POC Glucose Lactic Acid Uric Acid Calcium Total Bilirubin AST ALT Total Creatine Kinase CK-MB (CK-2) CK-MB (CK-2) Rel Index Troponin T C-Reactive Protein NT-Pro-B Natriuret Pep Total Protein Albumin LDL Cholesterol Direct Urine WBC (Auto) 08/29/18 08/29/18 08/29/18 05:48 11:37 15:32 WBC RBC Hgb Hct MCV RDW Plt Count Seg Neuts % (Manual) Lymphocytes % (Manual) Monocytes % (Manual) Nucleated RBC % Seg Neutrophils # Man Lymphocytes # (Manual) Monocytes # (Manual) PT INR D-Dimer POC ABG pH POC ABG pCO2 47.0 H POC ABG pO2 78 L Sodium Potassium Chloride Carbon Dioxide BUN Creatinine Glucose POC Glucose 114 H 116 H Lactic Acid Uric Acid Calcium Total Bilirubin AST ALT Total Creatine Kinase CK-MB (CK-2) CK-MB (CK-2) Rel Index Troponin T C-Reactive Protein NT-Pro-B Natriuret Pep Total Protein Albumin LDL Cholesterol Direct Urine WBC (Auto) 08/29/18 08/30/18 08/30/18 17:28 00:17 04:41 WBC RBC Hgb Hct MCV RDW Plt Count Seg Neuts % (Manual) Lymphocytes % (Manual) Monocytes % (Manual) Nucleated RBC % Seg Neutrophils # Man Lymphocytes # (Manual) Monocytes # (Manual) PT INR D-Dimer POC ABG pH POC ABG pCO2 48.1 H POC ABG pO2 Sodium Potassium Chloride Carbon Dioxide BUN Creatinine Glucose POC Glucose 174 H 132 H Lactic Acid Uric Acid Calcium Total Bilirubin AST ALT Total Creatine Kinase CK-MB (CK-2) CK-MB (CK-2) Rel Index Troponin T C-Reactive Protein NT-Pro-B Natriuret Pep Total Protein Albumin LDL Cholesterol Direct Urine WBC (Auto) 08/30/18 08/30/18 08/30/18 05:17 05:34 06:10 WBC RBC 2.68 L Hgb 8.2 L Hct 25.6 L MCV 96 H RDW 17.2 H Plt Count 118 L Seg Neuts % (Manual) Lymphocytes % (Manual) Monocytes % (Manual) Nucleated RBC % Seg Neutrophils # Man Lymphocytes # (Manual) Monocytes # (Manual) PT INR D-Dimer POC ABG pH POC ABG pCO2 POC ABG pO2 Sodium Potassium Chloride Carbon Dioxide BUN 54 H Creatinine 2.4 H Glucose 120 H POC Glucose 141 H Lactic Acid Uric Acid Calcium Total Bilirubin AST ALT Total Creatine Kinase CK-MB (CK-2) CK-MB (CK-2) Rel Index Troponin T C-Reactive Protein NT-Pro-B Natriuret Pep Total Protein Albumin LDL Cholesterol Direct Urine WBC (Auto) 08/30/18 08/30/18 08/30/18 13:11 18:11 23:55 WBC RBC Hgb Hct MCV RDW Plt Count Seg Neuts % (Manual) Lymphocytes % (Manual) Monocytes % (Manual) Nucleated RBC % Seg Neutrophils # Man Lymphocytes # (Manual) Monocytes # (Manual) PT INR D-Dimer POC ABG pH POC ABG pCO2 POC ABG pO2 Sodium Potassium Chloride Carbon Dioxide BUN Creatinine Glucose POC Glucose 167 H 144 H 144 H Lactic Acid Uric Acid Calcium Total Bilirubin AST ALT Total Creatine Kinase CK-MB (CK-2) CK-MB (CK-2) Rel Index Troponin T C-Reactive Protein NT-Pro-B Natriuret Pep Total Protein Albumin LDL Cholesterol Direct Urine WBC (Auto) 08/31/18 08/31/18 08/31/18 05:07 05:07 05:44 WBC RBC 2.62 L Hgb 8.1 L Hct 25.0 L MCV 96 H RDW 17.5 H Plt Count 128 L Seg Neuts % (Manual) Lymphocytes % (Manual) Monocytes % (Manual) Nucleated RBC % Seg Neutrophils # Man Lymphocytes # (Manual) Monocytes # (Manual) PT INR D-Dimer POC ABG pH POC ABG pCO2 POC ABG pO2 Sodium Potassium Chloride Carbon Dioxide BUN 58 H Creatinine 2.3 H Glucose 103 H POC Glucose 109 H Lactic Acid Uric Acid Calcium Total Bilirubin AST ALT Total Creatine Kinase CK-MB (CK-2) CK-MB (CK-2) Rel Index Troponin T C-Reactive Protein NT-Pro-B Natriuret Pep Total Protein Albumin LDL Cholesterol Direct Urine WBC (Auto) 08/31/18 08/31/18 08/31/18 11:26 13:54 19:05 WBC RBC Hgb Hct MCV RDW Plt Count Seg Neuts % (Manual) Lymphocytes % (Manual) Monocytes % (Manual) Nucleated RBC % Seg Neutrophils # Man Lymphocytes # (Manual) Monocytes # (Manual) PT INR D-Dimer POC ABG pH POC ABG pCO2 POC ABG pO2 Sodium Potassium Chloride Carbon Dioxide BUN Creatinine Glucose POC Glucose 117 H 186 H Lactic Acid Uric Acid 9.6 H Calcium Total Bilirubin AST ALT Total Creatine Kinase CK-MB (CK-2) CK-MB (CK-2) Rel Index Troponin T C-Reactive Protein NT-Pro-B Natriuret Pep Total Protein Albumin LDL Cholesterol Direct Urine WBC (Auto) 08/31/18 09/01/18 09/01/18 23:50 06:27 09:21 WBC RBC 2.74 L Hgb 8.6 L Hct 25.8 L MCV RDW 17.3 H Plt Count Seg Neuts % (Manual) Lymphocytes % (Manual) Monocytes % (Manual) Nucleated RBC % Seg Neutrophils # Man Lymphocytes # (Manual) Monocytes # (Manual) PT INR D-Dimer POC ABG pH POC ABG pCO2 POC ABG pO2 Sodium Potassium Chloride Carbon Dioxide BUN Creatinine Glucose POC Glucose 141 H 62 L Lactic Acid Uric Acid Calcium Total Bilirubin AST ALT Total Creatine Kinase CK-MB (CK-2) CK-MB (CK-2) Rel Index Troponin T C-Reactive Protein NT-Pro-B Natriuret Pep Total Protein Albumin LDL Cholesterol Direct Urine WBC (Auto) 09/01/18 09/01/18 09/01/18 09:21 12:27 17:51 WBC RBC Hgb Hct MCV RDW Plt Count Seg Neuts % (Manual) Lymphocytes % (Manual) Monocytes % (Manual) Nucleated RBC % Seg Neutrophils # Man Lymphocytes # (Manual) Monocytes # (Manual) PT INR D-Dimer POC ABG pH POC ABG pCO2 POC ABG pO2 Sodium Potassium 3.0 L D Chloride 109.8 H Carbon Dioxide BUN 45 H Creatinine 1.7 H Glucose POC Glucose 106 H 108 H Lactic Acid Uric Acid Calcium 7.1 L D Total Bilirubin AST ALT Total Creatine Kinase CK-MB (CK-2) CK-MB (CK-2) Rel Index Troponin T C-Reactive Protein NT-Pro-B Natriuret Pep Total Protein Albumin LDL Cholesterol Direct Urine WBC (Auto) 09/02/18 09/02/18 09/02/18 05:16 05:16 12:01 WBC RBC 2.60 L Hgb 8.1 L Hct 24.8 L MCV 95 H RDW 17.1 H Plt Count Seg Neuts % (Manual) Lymphocytes % (Manual) Monocytes % (Manual) Nucleated RBC % Seg Neutrophils # Man Lymphocytes # (Manual) Monocytes # (Manual) PT INR D-Dimer POC ABG pH POC ABG pCO2 POC ABG pO2 Sodium Potassium Chloride Carbon Dioxide BUN 49 H Creatinine 1.8 H Glucose 107 H POC Glucose 124 H Lactic Acid Uric Acid Calcium 8.1 L Total Bilirubin AST ALT Total Creatine Kinase CK-MB (CK-2) CK-MB (CK-2) Rel Index Troponin T C-Reactive Protein NT-Pro-B Natriuret Pep Total Protein Albumin LDL Cholesterol Direct Urine WBC (Auto) 09/02/18 09/02/18 09/03/18 18:38 23:12 08:22 WBC RBC Hgb Hct MCV RDW Plt Count Seg Neuts % (Manual) Lymphocytes % (Manual) Monocytes % (Manual) Nucleated RBC % Seg Neutrophils # Man Lymphocytes # (Manual) Monocytes # (Manual) PT INR D-Dimer POC ABG pH POC ABG pCO2 POC ABG pO2 Sodium Potassium Chloride Carbon Dioxide BUN Creatinine Glucose POC Glucose 164 H 128 H 115 H Lactic Acid Uric Acid Calcium Total Bilirubin AST ALT Total Creatine Kinase CK-MB (CK-2) CK-MB (CK-2) Rel Index Troponin T C-Reactive Protein NT-Pro-B Natriuret Pep Total Protein Albumin LDL Cholesterol Direct Urine WBC (Auto) 09/03/18 11:48 WBC RBC Hgb Hct MCV RDW Plt Count Seg Neuts % (Manual) Lymphocytes % (Manual) Monocytes % (Manual) Nucleated RBC % Seg Neutrophils # Man Lymphocytes # (Manual) Monocytes # (Manual) PT INR D-Dimer POC ABG pH POC ABG pCO2 POC ABG pO2 Sodium Potassium Chloride Carbon Dioxide BUN Creatinine Glucose POC Glucose 203 H Lactic Acid Uric Acid Calcium Total Bilirubin AST ALT Total Creatine Kinase CK-MB (CK-2) CK-MB (CK-2) Rel Index Troponin T C-Reactive Protein NT-Pro-B Natriuret Pep Total Protein Albumin LDL Cholesterol Direct Urine WBC (Auto) Allied health notes reviewed: nursing
[2018-09-03] MEDS: ALDACTONE PO SCH (15:26)
--- NOTE | 2018-09-03 16:32 | Progress Note ---
Assessment and Plan Assessment and plan: Patient is a 73 yo man with a history of hypertension, CKD 3, chronic respiratory failure on 2 liters of O2 due to end stage COPD, diabetes, GITA and colon cancer who presented to [facility] ED on 08/21/18 due to SOB, hallucinating and then became combative, pulling off his CPAP. He was just discharge from [place] at the end on June for COPD. Patient became unresponsive en route. EMS unable to intubate. Pt was bagged with 100%. When he arrived at the entrance of the hospital. he lost his pulse. Patient found in PEA. He was successfully intubated and resuscitated in ED with CPR/ACLS and 2 rounds of epi with ROSC. He was also in ARF with hyperkalemia, right femoral Vas cath placed and hemodialysis started on 08/26/18. He continue to improve and was extubated on 08/30/2018. He passed his swallow evaluation on 08/31/18 and diet started. Acute on chronic hypoxic respiratory failure >96 hours ETT: extubated on 08/30/18, doing better, still requiring O2 KHRIS secondary to ATN and vasomotor nephropathy, poa acute on chronic kidney disease 3: on HD, Nephrology following, Dialysis started, Femoral vas cath placed 08/26/18- to be changed to permacath Acute COPD exacerbation-POA: continue to treat with nebs, o2, abx until completion Pneumonia, HCAP-PRESUMED GNR: treated with ABX, ID is following Acute Metabolic Encephalopathy resolving Cardiac arrest-POA, successfully resuscitated, resolved Bowel illeus- Resolved, Surgery input noted, they have signed off Severe Sepsis- Resolved LEFT TMJ JOINT DISLOCATION-POA: need Oral Facial Maxillary surgeon, not available here Acute systolic Heart failure-POA/Type 2 NC/CARDIOMYOPATHY and Abnormal cardiac enzymes: Cardiology consulted, input noted, they have signed off Elevated D.DIMER, Venous leg doppler negative for DVT: Pulmonology is following Hyperkalemia resolved:monitor bmp closely Anemia ?acute blood loss: follow CBC closely Thrombocytopenia; monitoring CBC Myoclonic seziures: EEG ordered, Neurology managing Hypoxic ischemic Encephalopathy Liver disease: monitor CMP GITA; on CPAP at night, Colon cancer BY HX Morbidly obese, bmi 52: [employer] [facility] History Interval history: Patient was seen and examined. Follow-up on current diagnosis of Respiratory failure. No overnight events reported to me. Imaging, nursing note, chart, labs and old chart reviewed. Discussed with patient, and son at bedside. Extubated on 08/30/18 Hospitalist Physical - Physical exam Narrative exam: Gen: deconditioned, nad, extubated, talking, awake and alert HEENT: NCAT, EOMI, PERRL, OP Clear Neck: supple, no adenopathy, no thyromegaly, no JVD CVS/Heart: RRR, normal S1S2, pulses present bilaterally Chest/Lungs: diminished bs bilaterally, Symmetrical chest expansion, good air entry bilaterally GI/Abdomen: soft, NTND, good bowel sounds, no guarding or rebound /Bladder: no suprapubic tenderness, no CVA or paraspinal tenderness Extermity/Skin: dependent edema x 4 MSK: moving all extermities Neuro: no obvious focal deficits, equal strength. Psych: calm - Constitutional Vitals: Temp Pulse Resp BP Pulse Ox 98.1 F 77 20 167/54 96 09/03/18 09:21 09/03/18 09:21 09/03/18 09:21 09/03/18 09:21 09/03/18 09:21 General appearance: Present: other (intubated, chronically ill appearing) Results - Labs CBC & Chem 7: 09/02/18 05:16 09/02/18 05:16 Labs: Laboratory Last Values WBC 7.5 K/mm3 (4.5-11.0) 09/02/18 05:16 RBC 2.60 M/mm3 (3.65-5.03) L 09/02/18 05:16 Hgb 8.1 gm/dl (11.8-15.2) L 09/02/18 05:16 Hct 24.8 % (35.5-45.6) L 09/02/18 05:16 MCV 95 fl (84-94) H 09/02/18 05:16 MCH 31 pg (28-32) 09/02/18 05:16 MCHC 33 % (32-34) 09/02/18 05:16 RDW 17.1 % (13.2-15.2) H 09/02/18 05:16 Plt Count 151 K/mm3 (140-440) 09/02/18 05:16 Lymph % (Auto) Milk Hauler 08/25/18 16:43 [place] % (Auto) Milk Hauler 08/25/18 16:43 Eos % (Auto) Milk Hauler 08/25/18 16:43 Baso % (Auto) Milk Hauler 08/25/18 16:43 Lymph # Milk Hauler 08/25/18 16:43 [place] # Milk Hauler 08/25/18 16:43 Eos # Milk Hauler 08/25/18 16:43 Baso # Milk Hauler 08/25/18 16:43 Add Manual Diff Complete 08/25/18 16:43 Total Counted 100 08/25/18 16:43 Seg Neutrophils % Milk Hauler 08/25/18 16:43 Seg Neuts % (Manual) 94.0 % (40.0-70.0) H 08/25/18 16:43 2.0 % 08/25/18 16:43 2.0 % (13.4-35.0) L 08/25/18 16:43 Reactive Lymphs % (Man) 0 % 08/25/18 16:43 2.0 % (0.0-7.3) 08/25/18 16:43 0 % (0.0-4.3) 08/25/18 16:43 0 % (0.0-1.8) 08/25/18 16:43 0 % 08/25/18 16:43 0 % 08/25/18 16:43 0 % 08/25/18 16:43 0 % 08/25/18 16:43 Nucleated RBC % Not Reportable 08/25/18 16:43 Seg Neutrophils # Milk Hauler 08/25/18 16:43 Seg Neutrophils # Man 13.8 K/mm3 (1.8-7.7) H 08/25/18 16:43 Band Neutrophils # 0.3 K/mm3 08/25/18 16:43 0.3 K/mm3 (1.2-5.4) L 08/25/18 16:43 Abs React Lymphs (Man) 0.0 K/mm3 08/25/18 16:43 0.3 K/mm3 (0.0-0.8) 08/25/18 16:43 0.0 K/mm3 (0.0-0.4) 08/25/18 16:43 0.0 K/mm3 (0.0-0.1) 08/25/18 16:43 0.0 K/mm3 08/25/18 16:43 0.0 K/mm3 08/25/18 16:43 0.0 K/mm3 08/25/18 16:43 Blast Cells # 0.0 K/mm3 08/25/18 16:43 WBC Morphology Not Reportable 08/25/18 16:43 Hypersegmented Neuts Not Reportable 08/25/18 16:43 Hyposegmented Neuts Not Reportable 08/25/18 16:43 Hypogranular Neuts Not Reportable 08/25/18 16:43 Not Reportable 08/25/18 16:43 Not Reportable 08/25/18 16:43 Not Reportable 08/25/18 16:43 Not Reportable 08/25/18 16:43 Not Reportable 08/25/18 16:43 Not Reportable 08/25/18 16:43 Consistent w auto 08/25/18 16:43 Not Reportable 08/25/18 16:43 Plt Clumps, EDTA Not Reportable 08/25/18 16:43 Not Reportable 08/25/18 16:43 Not Reportable 08/25/18 16:43 Not Reportable 08/25/18 16:43 Plt Morphology Comment Not Reportable 08/25/18 16:43 RBC Morphology Not Reportable 08/25/18 16:43 Dimorphic RBCs Not Reportable 08/25/18 16:43 Not Reportable 08/25/18 16:43 1+ 08/25/18 16:43 Few 08/25/18 16:43 1+ 08/25/18 16:43 Not Reportable 08/25/18 16:43 Not Reportable 08/25/18 16:43 Not Reportable 08/25/18 16:43 Not Reportable 08/25/18 16:43 Not Reportable 08/25/18 16:43 Not Reportable 08/25/18 16:43 Not Reportable 08/25/18 16:43 Few 08/25/18 16:43 Not Reportable 08/25/18 16:43 Not Reportable 08/25/18 16:43 Not Reportable 08/25/18 16:43 Not Reportable 08/25/18 16:43 Not Reportable 08/25/18 16:43 Not Reportable 08/25/18 16:43 Not Reportable 08/25/18 16:43 Acanthocytes (Spur) Not Reportable 08/25/18 16:43 Rouleaux Not Reportable 08/25/18 16:43 Not Reportable 08/25/18 16:43 Not Reportable 08/25/18 16:43 Not Reportable 08/25/18 16:43 Not Reportable 08/25/18 16:43 Hem Pathologist Commnt No 08/25/18 16:43 PT 15.6 Sec. (12.2-14.9) H 08/25/18 16:43 INR 1.27 (0.87-1.13) H 08/25/18 16:43 APTT 30.8 Sec. (24.2-36.6) 08/21/18 04:42 1978.25 ng/mlDDU (0-234) H 08/24/18 13:41 POC ABG pH 7.410 (7.35-7.45) 08/30/18 13:35 POC ABG pCO2 41.4 (35-45) 08/30/18 13:35 POC ABG pO2 99 (80-105) 08/30/18 13:35 POC ABG HCO3 26.2 (22-26 mml/L) 08/30/18 13:35 POC ABG Total CO2 27 (23-27mmol/L) 08/30/18 13:35 POC ABG O2 Sat 98 08/30/18 13:35 POC ABG Base Excess 2 ((-2) - (+3)mmol/L) 08/30/18 13:35 30 % 08/30/18 13:35 Sodium 138 mmol/L (137-145) 09/02/18 05:16 Potassium 4.2 mmol/L (3.6-5.0) D 09/02/18 05:16 Chloride 104.0 mmol/L (98-107) 09/02/18 05:16 Carbon Dioxide 26 mmol/L (22-30) 09/02/18 05:16 12 mmol/L 09/02/18 05:16 BUN 49 mg/dL (9-20) H 09/02/18 05:16 1.8 mg/dL (0.8-1.5) H 09/02/18 05:16 Estimated GFR 37 ml/min 09/02/18 05:16 27 % 09/02/18 05:16 Glucose 107 mg/dL (75-100) H 09/02/18 05:16 POC Glucose 203 (70-105) H 09/03/18 11:48 317 Mosm/kg 08/31/18 13:54 Lactic Acid 1.30 mmol/L (0.7-2.0) 08/21/18 20:50 9.6 mg/dL (3.5-7.6) H 08/31/18 13:54 Calcium 8.1 mg/dL (8.4-10.2) L 09/02/18 05:16 Magnesium 2.00 mg/dL (1.7-2.3) 09/02/18 05:16 0.60 mg/dL (0.1-1.2) 08/28/18 04:49 AST 27 units/L (5-40) 08/28/18 04:49 ALT 12 units/L (7-56) 08/28/18 04:49 87 units/L (35-129) 08/28/18 04:49 222 units/L (55-170) H 08/21/18 10:45 CK-MB (CK-2) 9.2 ng/mL (0.0-4.0) H 08/21/18 10:45 CK-MB (CK-2) Rel Index 4.1 (0-4) H 08/21/18 10:45 0.044 ng/mL (0.00-0.029) H D 08/21/18 10:45 9.00 mg/dL (0.00-1.30) H 08/24/18 13:41 NT-Pro-B Natriuret Pep > 99696 pg/mL (0-900) H 08/28/18 04:49 5.4 g/dL (6.3-8.2) L 08/28/18 04:49 2.2 g/dL (3.9-5) L 08/28/18 04:49 0.7 % 08/28/18 04:49 Triglycerides 87 mg/dL (2-149) 08/21/18 04:42 Cholesterol 93 mg/dL (50-199) 08/21/18 04:42 44 mg/dL (50-130) L 08/21/18 04:42 41 mg/dL (40-59) 08/21/18 04:42 2.26 % 08/21/18 04:42 Yellow (Yellow) 08/21/18 15:03 Slightly-cloudy (Clear) 08/21/18 15:03 5.0 (5.0-7.0) 08/21/18 15:03 Ur Specific [place] 1.015 (1.003-1.030) 08/21/18 15:03 30 mg/dl mg/dL (Negative) 08/21/18 15:03 Neg mg/dL (Negative) 08/21/18 15:03 Neg mg/dL (Negative) 08/21/18 15:03 Mod (Negative) 08/21/18 15:03 Neg (Negative) 08/21/18 15:03 Neg (Negative) 08/21/18 15:03 < 2.0 mg/dL (<2.0) 08/21/18 15:03 Ur Leukocyte Esterase Tr (Negative) 08/21/18 15:03 13.0 /HPF (0.0-6.0) H 08/21/18 15:03 15.0 /HPF (0.0-6.0) 08/21/18 15:03 U Epithel Cells (Auto) 1.0 /HPF (0-13.0) 08/21/18 15:03 1+ /HPF (Negative) 08/21/18 15:03 Few /HPF 08/21/18 15:03 Random Vancomycin 10.5 ug/mL (0-40.0) 08/26/18 05:53 Levetiracetam 25.7 mcg/mL (12.0-46.0) 08/26/18 13:42 Hepatitis A IgM Ab Non-reactive (NonReactive) 08/27/18 23:25 Hep Bs Antigen Non-reactive (Negative) 08/27/18 23:25 Hep B Core IgM Ab Non-reactive (NonReactive) 08/27/18 23:25 Non-reactive (NonReactive) 08/27/18 23:25 Active Medications - Current Medications Current Medications: Generic Name Dose Route Start Last Admin Trade Name Freq PRN Reason Stop Dose Admin Acetaminophen 650 mg 08/21/18 06:31 09/01/18 21:12 Tylenol PO 650 mg Q4H PRN Administration Pain MILD(1-3)/Fever >100.5/COOK Albuterol/Ipratropium 1 ampul 08/24/18 20:00 09/03/18 08:20 Duoneb *Not For Prn Use* IH 1 ampul BIDRT LUIS Administration Lipase/Protease/Amylase 1 each 08/26/18 12:07 Taye [place] 10,500 Unit FEEDTUBE PRN PRN For Clogged Feeding Tube Arformoterol Tartrate 15 mcg 08/24/18 20:00 09/03/18 08:20 Brovana Nebu IH 15 mcg Q12HRT LUIS Administration Bisacodyl 10 mg 09/02/18 12:42 Dulcolax [place] QDAY PRN Constipation Budesonide 0.5 mg 08/24/18 20:00 09/03/18 08:20 Pulmicort IH 0.5 mg Q12HRT LUIS Administration Dextrose 50 ml 08/21/18 06:48 D50w (25gm) Syringe IV PRN PRN Hypoglycemia Heparin Sodium (Porcine) 5,000 unit 08/22/18 10:00 09/03/18 10:11 Heparin SUB-Q 5,000 unit Q12HR LUIS Administration Hydralazine HCl 25 mg 08/30/18 22:00 09/03/18 15:24 Apresoline PO 25 mg Q8HR LUIS Administration Insulin Human Lispro 0 unit 08/31/18 22:00 09/03/18 12:58 Humalog SUB-Q 3 unit ACHS LUIS Administration Protocol Levetiracetam 750 mg 09/02/18 22:00 09/03/18 10:10 Keppra PO 750 mg BID LUIS Administration Metoclopramide HCl 10 mg 08/25/18 18:00 09/03/18 07:07 Reglan IV 10 mg Q12H LUIS Administration Morphine Sulfate 2 mg 08/26/18 14:24 08/30/18 01:40 Morphine IV 2 mg Q6H PRN Administration Pain, Moderate (4-6) Ondansetron HCl 4 mg 08/21/18 06:31 Zofran IV Q8H PRN Nausea And Vomiting Sodium Chloride 10 ml 08/21/18 10:00 09/03/18 10:11 Sodium Chloride Flush Syringe 10 Ml IV 10 ml BID LUIS Administration Spironolactone 25 mg 09/03/18 11:00 09/03/18 15:26 Aldactone PO 25 mg QDAY LUIS Administration Nutrition/Malnutrition Assess - Dietary Evaluation Nutrition/Malnutrition Findings: Nutrition Notes Start: 08/21/18 16:58 Freq: Status: Active Protocol: Document 09/01/18 19:15 RM (Rec: 09/01/18 19:23 RM [id number]) Nutrition Notes Initial or Follow up Reassessment Current Diagnosis Acute Kidney Injury,CKD(stage I-IV),COPD,Diabetes,Sepsis Other Pertinent Diagnosis Hx colon CA, Pneu Current Diet Cardiac/Consistent CHO Labs/Tests Reviewed Pertinent Medications Reviewed Height 5 ft 6 in Weight 146.3 kg [place] Body Weight (kg) 64.54 BMI 52.0 Subjective/Other Information Pt moved to and TF D/C'd. Diet advanced to Cardiac/ Consistent CHO. Pt and pt in room at time of visit. Pt confused at time of visit. Pt stated that pt eats half of his meals. Percent of energy/protein needs met: 51%/65% Burn Absent Trauma Absent #1 Nutrition Diagnosis Inadequate oral intake Diagnosis Progress(for reassessment Continues documentation) Is patient on ventilator? Yes Is Patient Ambulatory and/or Out of Bed No REE-([place]-confined to bed) 2592.060 Kcal/Kg value to use for calculation 14 Approximate Energy Requirements Using 2048 kcal/Kg Calculation Used for Recommendations Kcal/kg Additional Notes Protein needs: 65-84g(1-1.3g/ kg IBW) Fluid Needs: 1 ml/kcal Nutrition Intervention Change Diet Order: Continue current Add Supplement/Snack (indicate name/kcal Glucerna Chocolate, [place] /protein ) 1 daily Provides kCal: 220 Provides Protein (gm) 10 Goal #1 Meet at least 75% of kcal and protein needs via PO intakes Anticipated Discharge Needs: Unable to determine at this time Follow-Up By: 09/05/18 Additional Comments Follow for PO and ONS intakes
[2018-09-04] MEDS: REGLAN IV SCH ×2 (06:28→22:44)
[2018-09-04] MEDS: APRESOLINE PO SCH ×3 (06:28→22:45)
[2018-09-04] MEDS: DUONEB *Not for PRN Use IH SCH ×2 (08:10→20:27)
[2018-09-04] MEDS: BROVANA NEBU IH SCH ×2 (08:10→20:27)
[2018-09-04] MEDS: PULMICORT IH SCH ×2 (08:10→20:27)
--- NOTE | 2018-09-04 08:27 | XRay Report ---
CHEST 1 VIEW INDICATION: before VQ scan. Shortness of breath, evaluate for pulmonary embolus COMPARISON: 08/30/2018 FINDINGS: Support devices: The endotracheal tube and nasogastric tube have been removed since the previous exam Heart: Borderline to mild cardiomegaly is stable. Lungs/Pleura: Mild improvement in pulmonary venous congestion bilaterally. Minor discoid atelectasis is evident in the lower lobes. No consolidation, large pleural effusion or pneumothorax. Additional findings: None. IMPRESSION: Mild improvement in pulmonary venous congestion. Minor bibasilar atelectatic changes. No acute proces s. Signer Name: Hilario Harris Jr, MD Signed: 09/04/2018 8:22 AM Workstation Name: [id number]
[2018-09-04] MEDS: HumaLOG SUB-Q SCH ×4 (09:33→22:52)
--- NOTE | 2018-09-04 09:55 | Nuclear Medicine Report ---
VENTILATION PERFUSION PULMONARY SCINTIGRAPHY HISTORY: Shortness of breath COMPARISON: A same-day chest radiograph. TECHNIQUE: Radiopharmaceutical was inhaled. Tc-99m-MAA was then injected. Ventilation and perfusion images were acquired. RADIOPHARMACEUTICAL: 20.2 mCi of Xe-133 inhaled 5.3 mCi of Tc-99m-MAA injected FINDINGS: VENTILATION: Decreased ventilation of the left upper lobe significant air trapping on delayed scans. PERFUSION: No significant segmental or non-segmental unmatched defect. Left upper lobe perfusion defi ciency is matched on the ventilation scan. Additional Findings: None. IMPRESSION: 1. Low probability for pulmonary embolism. Signer Name: Te Durham MD Signed: 09/04/2018 9:51 AM Workstation Name: [id number]
--- NOTE | 2018-09-04 11:08 | Progress Note ---
Assessment and Plan Cultures: 08/21/2018 Blood culture: CoNS, Diphtheroids Sputum cultures 08/21/2018 MSSA Urine cultures 08/21/2018 no growth Repeat blood cultures negative Assessment: 73 y/o male with a history of chronic kidney disease, liver disease, COPD, diabetes, GITA, colon cancer admitted on due to 4-day history of progressive shortness of breath and right neck/face edema and tenderness associated with poor po intake, patient became unresponsive en route. EMS unable to intubate. Pt bagged with 100%. Patient found in asystole at the ED receiving s/p CRP. 1) Severe Sepsis s/p arrest in the ED: resolved, lactate now normal. Etiology likely RLL pneumonia. 2) Pneumonia: likely HCAP (recent admission to [facility] for MRSA cellulitis?). CXR shows bilateral infiltrate with airspace disease on RLL. Sputum cultures 08/21/2018 MSSA. 3) CoNS and diphtheroids bacteremia: likely contaminant. Blood cultures 08/21/2018 CoNS 2 of 4 bottles. TTE no vegetations, EF 40-45%. Repeat cultures negative. 4) Acute renal failure on CKD: renally adjust abx dosing. On intermittent dialysis per nephrology. 5) Penicillin allergy: ?unclear reaction. Tolerating Cefazolin. Recommendations: -Clinically stable, monitor off antibiotics -f/u ID clinic in 2 weeks - Sent to canvas marker -ID is signing off, please call for questions. [facility] M: [id number] O:[phone] Subjective Date of service: 09/04/18 Principal diagnosis: s/p cardiac arrest; severe sepsis; acute hypoxemic- hypercapnic resp failure Interval history: Patient seen and examined. Laying in bed. Reports continued generalized weakness. No pain. No fever. at bedside. Objective - Exam Narrative Exam: Constitutional: awake, alert. Obese Head, Ears, Nose: Normocephalic, atraumatic. External ears, nose normal. Eyes: Conjunctivae/corneas clear. No icterus. No ptosis. Neck: thick neck, supple, no meningeal signs Oral: no thrush Cardiovascular: S1, S2 normal. Respiratory: left clear, right side with scattered rhonchi, +productive cough, brownish sputum GI: Soft, non-tender; bowel sounds normal. No peritoneal signs Musculoskeletal: trace pedal edema, no cyanosis. b/l LE hyperpigmentation Skin: No rash or abscess Hem/Lymphatic: No palpable cervical or supraclavicular nodes. No lymphangitis Psych: calm, no agitation Neurological: awake, answers questions, follows commands - Constitutional Vitals: Vital Signs Temp Pulse Resp BP Pulse Ox 97.8 F 100 H 20 152/72 97 09/04/18 08:20 09/04/18 08:30 09/04/18 08:30 09/04/18 08:20 09/04/18 08:20 Temperature -Last 24 Hours Temperature 97.8 F Temperature 98.0 F Temperature 98.0 F Temperature 98.0 F Temperature 98.1 F Temperature 98.2 F - Labs CBC & Chem 7: 09/02/18 05:16 09/02/18 05:16 Labs: Abnormal lab results 09/03/18 09/03/18 09/03/18 Range/Units 11:48 16:37 20:48 POC Glucose 203 H 146 H 150 H (70-105) 09/04/18 Range/Units 08:29 POC Glucose 129 H (70-105)
[2018-09-04] MEDS ORDERED: XYLOCAINE 1% 20 mL INFILTRATI ONE (11:44)
--- NOTE | 2018-09-04 11:44 | Progress Note ---
Assessment and Plan Impression: * KHRIS on ckd * s/p Cardiopulmonary arrest with ROSC * Acute on chronic hypoxemic respiratory failure on MVS * Lactic acidosis * Acute metabolic/respiratory acidosis * Sepsis probably secondary to aspiration PNA * COPD * Acute metabolic-toxic encephalopathy * NSTEMI * Type 2 DM Plan: * antibiotics per primary team * strict i/os, avoid nephrotoxins * daily lytes * renal diet * Renal function recovering. Will hold HD today. * Continue to monitor SCr and UOP for evidence of recovery * Strict I/O * Antibiotics per primary team * Avoid nephrotoxins * AM labs Subjective Date of service: 09/04/18 Principal diagnosis: s/p cardiac arrest; severe sepsis; acute hypoxemic-hyperca pnic resp failure Interval history: resting well in bed today Objective - Exam Narrative Exam: General appearance: well-developed, well-nourished EENT: ATNC, PERRL Neck: no JVD Respiratory: Present: Rales, Ronchi Cardiology: regular, S1S2 Gastrointestinal: normal, normoactive bowel sounds Integumentary: no rash Neurologic: other (awake and alert. ) Psychiatric: agitated - Vital Signs Vital signs: Vital Signs - 12hr 09/04/18 09/04/18 09/04/18 04:24 08:10 08:13 Temperature 98.0 F Pulse Rate 102 H Pulse Rate [ 97 H Posterior Bilateral Throughout] Respiratory 18 Rate Respiratory 18 Rate [Posterior Bilateral Throughout] Blood Pressure 168/93 O2 Sat by Pulse 97 97 Oximetry 09/04/18 09/04/18 08:20 08:30 Temperature 97.8 F Pulse Rate 98 H Pulse Rate [ 100 H Posterior Bilateral Throughout] Respiratory 20 Rate Respiratory 20 Rate [Posterior Bilateral Throughout] Blood Pressure 152/72 O2 Sat by Pulse 97 Oximetry - Lab 09/02/18 05:16 09/02/18 05:16 Most recent lab results Calcium 8.1 mg/dL (8.4-10.2) L 09/02/18 05:16 Magnesium 2.00 mg/dL (1.7-2.3) 09/02/18 05:16 Medications & Allergies - Medications Allergies/Adverse Reactions: Allergies Penicillins Allergy (Verified 08/21/18 04:49) Unknown -cillins Allergy (Uncoded 08/21/18 04:49) Unknown Home Medications: Home Medications Medication Instructions Recorded Confirmed Last Taken Type AtorvaSTATin [Lipitor] 10 mg PO QHS 08/21/18 08/21/18 Unknown History Ferrous Sulfate [Feosol] 325 mg PO QDAY 08/21/18 08/21/18 Unknown History Melatonin [Melatonin 10MG CAP] 10 mg PO DAILY 08/21/18 08/21/18 Unknown History NIFEdipine [Nifedipine ER] 60 mg PO BID 08/21/18 08/21/18 Unknown History Sennosides Tab [Senokot] 1 tab PO HS 08/21/18 08/21/18 Unknown History Tamsulosin [Flomax] 2 cap PO HS 08/21/18 08/21/18 Unknown History Torsemide [Demadex] 20 mg PO DAILY 08/21/18 08/21/18 Unknown History Venlafaxine HCl [Venlafaxin ER] 75 mg PO QDAY 08/21/18 08/21/18 Unknown History buPROPion [Wellbutrin] 100 mg PO DAILY 08/21/18 08/21/18 Unknown History Active Medications: Generic Name Dose Route Start Last Admin Trade Name Freq PRN Reason Stop Dose Admin Acetaminophen 650 mg 08/21/18 06:31 09/01/18 21:12 Tylenol PO 650 mg Q4H PRN Administration Pain MILD(1-3)/Fever >100.5/COOK Albuterol/Ipratropium 1 ampul 08/24/18 20:00 09/04/18 08:10 Duoneb *Not For Prn Use* IH 1 ampul BIDRT LUIS Administration Lipase/Protease/Amylase 1 each 08/26/18 12:07 Taye [place] 10,500 Unit FEEDTUBE PRN PRN For Clogged Feeding Tube Arformoterol Tartrate 15 mcg 08/24/18 20:00 09/04/18 08:10 Brovana Nebu IH 15 mcg Q12HRT LUIS Administration Bisacodyl 10 mg 09/02/18 12:42 Dulcolax SC QDAY PRN Constipation Budesonide 0.5 mg 08/24/18 20:00 09/04/18 08:10 Pulmicort IH 0.5 mg Q12HRT LUIS Administration Dextrose 50 ml 08/21/18 06:48 D50w (25gm) Syringe IV PRN PRN Hypoglycemia Heparin Sodium (Porcine) 5,000 unit 08/22/18 10:00 09/03/18 21:26 Heparin SUB-Q 5,000 unit Q12HR LUIS Administration Hydralazine HCl 25 mg 08/30/18 22:00 09/04/18 06:28 Apresoline PO 25 mg Q8HR LUIS Administration Insulin Human Lispro 0 unit 08/31/18 22:00 09/04/18 09:33 Humalog SUB-Q Not Given ACHS [facility] Protocol Levetiracetam 750 mg 09/02/18 22:00 09/03/18 21:26 Keppra PO 750 mg BID LUIS Administration Lidocaine 10 ml 09/04/18 11:44 Xylocaine 1% 20 Ml INFILTRATI 09/04/18 11:45 ONCE ONE Metoclopramide HCl 10 mg 08/25/18 18:00 09/04/18 06:28 Reglan IV 10 mg Q12H LUIS Administration Morphine Sulfate 2 mg 08/26/18 14:24 08/30/18 01:40 Morphine IV 2 mg Q6H PRN Administration Pain, Moderate (4-6) Ondansetron HCl 4 mg 08/21/18 06:31 Zofran IV Q8H PRN Nausea And Vomiting Sodium Chloride 10 ml 08/21/18 10:00 09/03/18 21:26 Sodium Chloride Flush Syringe 10 Ml IV 10 ml BID LUIS Administration Spironolactone 25 mg 09/03/18 11:00 09/03/18 15:26 Aldactone PO 25 mg QDAY LUIS Administration
[2018-09-04] MEDS: ALDACTONE PO SCH (11:57)
[2018-09-04] MEDS: KEPPRA PO SCH ×3 (11:57→22:53)
[2018-09-04] MEDS: HEPARIN SUB-Q SCH ×2 (11:59→22:44)
[2018-09-04] MEDS: SODIUM CHLORIDE FLUSH SYRINGE 10 ML IV SCH ×2 (12:00→22:52)
--- NOTE | 2018-09-04 12:05 | Operative Report ---
Operative Report Operative Report: VASCULAR SURGERY OPERATIVE NOTE PREOP DIAGNOSIS: Resolving renal failure, Perma-cath no longer required POSTOP DIAGNOSIS: Same PROCEDURE: Removal of Right femoral Perma-cath Provider: Yosef Carvalho PA-C Supervising Physician: Luke Lopez MD ANESTHESIA: Local Indication: This pt is a 73yo WM s/p CP arrest with acute on CKD which required initiation of HD per the nephrology service. A IJ temporay HD catheter was attempted, but unsuccessful due to Vascular abnormalities of his central venous anatomy. A femoral PC was placed which he has used for HD since that point. His Cr has improved and stabilized. He is no long on HD, and a vascular surgery consult has been requested to evaluate for PC removal. Informed consent was obtained prior to the procedure. Findings: Successful removal of the right femoral Perma-cath. The tip and cuff were intact. DETAILS OF THE OPERATIVE PROCEDURE: The procedure was performed at the patient's bedside. He was laid in the supine position. The area over his right groin was prepped with betadine solution. He was draped in the usual standard fashion. The exit site was anesthestized with 1% Lidocaine. The exit site stitches had already pulled out. Gentle retraction was used in combination with blunt dissection. The catheter cuff was freed and the catheter was removed. Pressure was held at the groin until hemostasis was obtained. A sterile bio-occlusive/arielle dressing was applied. The patient tolerated the procedure without incident. Pt should lay flat x2 hrs. Post op instructions were discussed with the pt, his at the bedside, and his nursing staff. Yosef Carvalho PA-C
--- NOTE | 2018-09-04 13:39 | Vascular Lab Report ---
RENAL ARTERIAL DOPPLER ULTRASOUND HISTORY: Renal failure, right renal atrophy COMPARISON: CT of the abdomen and pelvis on 08/25/2018 TECHNIQUE: Routine renal arterial doppler ultrasound performed using grayscale, color and pulsed dopp ler. FINDINGS: Abdominal Aorta: No significant abnormality. Suprarenal velocity is 100 cm/s. Right kidney: Mild atrophy relative to the left. Kidney measures 9.5 cm. Resistive index: Less than 0.8 Right renal artery: Peak systolic velocity of 89 cm/s with fjaqq-ay-wcuhaq ratio of less than 3.5 Right renal vein: Patent. Left kidney: No significant abnormality. No hydronephrosis. Kidney measures 10.8 cm. Resistive index: Less than 0.8 Left renal artery: Peak systolic velocity of 84 cm/s with dvhnq-po-mwnzaz ratio of less than 3.5 Left renal vein: Patent. Additional findings: None. IMPRESSION: 1. No hemodynamically significant renal artery stenosis identified. Signer Name: Bulmaro Dewitt MD Signed: 09/04/2018 1:34 PM Workstation Name: [id number]
--- NOTE | 2018-09-04 14:03 | Progress Note ---
Assessment and Plan Assessment and plan: Patient is a 73 yo man with a history of hypertension, CKD 3, chronic respiratory failure on 2 liters of O2 due to end stage COPD, diabetes, GITA and colon cancer who presented to [facility] ED on 08/21/18 due to SOB, hallucinating and then became combative, pulling off his CPAP. He was just discharge from [facility] at the end on June for COPD. Patient became unresponsive en route. EMS unable to intubate. Pt was bagged with 100%. When he arrived at the entrance of the hospital. he lost his pulse. Patient found in PEA. He was successfully intubated and resuscitated in ED with CPR/ACLS and 2 rounds of epi with ROSC. He was also in ARF with hyperkalemia, right femoral Vas cath placed and hemodialysis started on 08/26/18. He continue to improve and was extubated on 08/30/2018. He passed his swallow evaluation on 08/31/18 and diet started. Acute on chronic hypoxic respiratory failure >96 hours ETT: extubated on 08/30/18, doing better, still requiring O2 KHRIS secondary to ATN and vasomotor nephropathy, poa acute on chronic kidney disease 3: off HD, Nephrology following, Dialysis started, Femoral perm-a-cath placed 08/26/18- and removed on 09/04/18, last day for HD was 4 days ago Acute COPD exacerbation-POA: continue to treat with nebs, o2, abx until completion Pneumonia, HCAP-PRESUMED GNR: treated with ABX, ID is following Acute Metabolic Encephalopathy resolving Cardiac arrest-POA, successfully resuscitated, resolved Bowel ileus- Resolved, Surgery input noted, they have signed off Severe Sepsis- Resolved LEFT TMJ JOINT DISLOCATION-POA: no need Oral Facial Maxillary surgeon urgently, not available here Acute systolic Heart failure-POA/Type 2 ND/CARDIOMYOPATHY and Abnormal cardiac enzymes: Cardiology consulted, input noted, they have signed off Elevated D.DIMER, Venous leg doppler negative for DVT: Pulmonology is following Hyperkalemia resolved:monitor bmp closely Anemia, acute blood loss: follow CBC closely Thrombocytopenia; monitoring CBC Myoclonic seziures: EEG ordered, Neurology managing Liver disease: monitor CMP GITA; on CPAP at night, Colon cancer BY HX Morbidly obese, bmi 52: Accounting Technician consulted [facility] Renal vasculature u/s negative for Renal artery stenosis perm a cath removal today, last hemodialysis I believe was on the 4th. Renal function has recovered Awaiting SNF placement History Interval history: Patient was seen and examined. Follow-up on current diagnosis of Respiratory failure. No overnight events reported to me. Imaging, nursing note, chart, labs and old chart reviewed. Discussed with patient, and son at bedside. Extubated on 08/30/18 Hospitalist Physical - Physical exam Narrative exam: Gen: deconditioned, nad, extubated, talking, awake and alert HEENT: NCAT, EOMI, PERRL, OP Clear Neck: supple, no adenopathy, no thyromegaly, no JVD CVS/Heart: RRR, normal S1S2, pulses present bilaterally Chest/Lungs: diminished bs bilaterally, Symmetrical chest expansion, good air entry bilaterally GI/Abdomen: soft, NTND, good bowel sounds, no guarding or rebound /Bladder: no suprapubic tenderness, no CVA or paraspinal tenderness Extermity/Skin: dependent edema x 4 MSK: moving all extermities Neuro: no obvious focal deficits, equal strength. Psych: calm - Constitutional Vitals: Temp Pulse Resp BP Pulse Ox 97.7 F 103 H 20 156/72 97 09/04/18 11:59 09/04/18 11:59 09/04/18 11:59 09/04/18 11:59 09/04/18 11:59 General appearance: Present: other (intubated, chronically ill appearing) Results - Labs CBC & Chem 7: 09/02/18 05:16 09/02/18 05:16 Labs: Laboratory Last Values WBC 7.5 K/mm3 (4.5-11.0) 09/02/18 05:16 RBC 2.60 M/mm3 (3.65-5.03) L 09/02/18 05:16 Hgb 8.1 gm/dl (11.8-15.2) L 09/02/18 05:16 Hct 24.8 % (35.5-45.6) L 09/02/18 05:16 MCV 95 fl (84-94) H 09/02/18 05:16 MCH 31 pg (28-32) 09/02/18 05:16 MCHC 33 % (32-34) 09/02/18 05:16 RDW 17.1 % (13.2-15.2) H 09/02/18 05:16 Plt Count 151 K/mm3 (140-440) 09/02/18 05:16 Lymph % (Auto) Phys Ther 08/25/18 16:43 Fisher % (Auto) Phys Ther 08/25/18 16:43 Eos % (Auto) Phys Ther 08/25/18 16:43 Baso % (Auto) Phys Ther 08/25/18 16:43 Lymph # Phys Ther 08/25/18 16:43 Fisher # Phys Ther 08/25/18 16:43 Eos # Phys Ther 08/25/18 16:43 Baso # Phys Ther 08/25/18 16:43 Add Manual Diff Complete 08/25/18 16:43 Total Counted 100 08/25/18 16:43 Seg Neutrophils % Phys Ther 08/25/18 16:43 Seg Neuts % (Manual) 94.0 % (40.0-70.0) H 08/25/18 16:43 2.0 % 08/25/18 16:43 2.0 % (13.4-35.0) L 08/25/18 16:43 Reactive Lymphs % (Man) 0 % 08/25/18 16:43 2.0 % (0.0-7.3) 08/25/18 16:43 0 % (0.0-4.3) 08/25/18 16:43 0 % (0.0-1.8) 08/25/18 16:43 0 % 08/25/18 16:43 0 % 08/25/18 16:43 0 % 08/25/18 16:43 0 % 08/25/18 16:43 Nucleated RBC % Not Reportable 08/25/18 16:43 Seg Neutrophils # Phys Ther 08/25/18 16:43 Seg Neutrophils # Man 13.8 K/mm3 (1.8-7.7) H 08/25/18 16:43 Band Neutrophils # 0.3 K/mm3 08/25/18 16:43 0.3 K/mm3 (1.2-5.4) L 08/25/18 16:43 Abs React Lymphs (Man) 0.0 K/mm3 08/25/18 16:43 0.3 K/mm3 (0.0-0.8) 08/25/18 16:43 0.0 K/mm3 (0.0-0.4) 08/25/18 16:43 0.0 K/mm3 (0.0-0.1) 08/25/18 16:43 0.0 K/mm3 08/25/18 16:43 0.0 K/mm3 08/25/18 16:43 0.0 K/mm3 08/25/18 16:43 Blast Cells # 0.0 K/mm3 08/25/18 16:43 WBC Morphology Not Reportable 08/25/18 16:43 Hypersegmented Neuts Not Reportable 08/25/18 16:43 Hyposegmented Neuts Not Reportable 08/25/18 16:43 Hypogranular Neuts Not Reportable 08/25/18 16:43 Not Reportable 08/25/18 16:43 Not Reportable 08/25/18 16:43 Not Reportable 08/25/18 16:43 Not Reportable 08/25/18 16:43 Not Reportable 08/25/18 16:43 Not Reportable 08/25/18 16:43 Consistent w auto 08/25/18 16:43 Not Reportable 08/25/18 16:43 Plt Clumps, EDTA Not Reportable 08/25/18 16:43 Not Reportable 08/25/18 16:43 Not Reportable 08/25/18 16:43 Not Reportable 08/25/18 16:43 Plt Morphology Comment Not Reportable 08/25/18 16:43 RBC Morphology Not Reportable 08/25/18 16:43 Dimorphic RBCs Not Reportable 08/25/18 16:43 Not Reportable 08/25/18 16:43 1+ 08/25/18 16:43 Few 08/25/18 16:43 1+ 08/25/18 16:43 Not Reportable 08/25/18 16:43 Not Reportable 08/25/18 16:43 Not Reportable 08/25/18 16:43 Not Reportable 08/25/18 16:43 Not Reportable 08/25/18 16:43 Not Reportable 08/25/18 16:43 Not Reportable 08/25/18 16:43 Few 08/25/18 16:43 Not Reportable 08/25/18 16:43 Not Reportable 08/25/18 16:43 Not Reportable 08/25/18 16:43 Not Reportable 08/25/18 16:43 Not Reportable 08/25/18 16:43 Not Reportable 08/25/18 16:43 Not Reportable 08/25/18 16:43 Acanthocytes (Spur) Not Reportable 08/25/18 16:43 Rouleaux Not Reportable 08/25/18 16:43 Not Reportable 08/25/18 16:43 Not Reportable 08/25/18 16:43 Not Reportable 08/25/18 16:43 Not Reportable 08/25/18 16:43 Hem Pathologist Commnt No 08/25/18 16:43 PT 15.6 Sec. (12.2-14.9) H 08/25/18 16:43 INR 1.27 (0.87-1.13) H 08/25/18 16:43 APTT 30.8 Sec. (24.2-36.6) 08/21/18 04:42 1978.25 ng/mlDDU (0-234) H 08/24/18 13:41 POC ABG pH 7.410 (7.35-7.45) 08/30/18 13:35 POC ABG pCO2 41.4 (35-45) 08/30/18 13:35 POC ABG pO2 99 (80-105) 08/30/18 13:35 POC ABG HCO3 26.2 (22-26 mml/L) 08/30/18 13:35 POC ABG Total CO2 27 (23-27mmol/L) 08/30/18 13:35 POC ABG O2 Sat 98 08/30/18 13:35 POC ABG Base Excess 2 ((-2) - (+3)mmol/L) 08/30/18 13:35 30 % 08/30/18 13:35 Sodium 138 mmol/L (137-145) 09/02/18 05:16 Potassium 4.2 mmol/L (3.6-5.0) D 09/02/18 05:16 Chloride 104.0 mmol/L (98-107) 09/02/18 05:16 Carbon Dioxide 26 mmol/L (22-30) 09/02/18 05:16 12 mmol/L 09/02/18 05:16 BUN 49 mg/dL (9-20) H 09/02/18 05:16 1.8 mg/dL (0.8-1.5) H 09/02/18 05:16 Estimated GFR 37 ml/min 09/02/18 05:16 27 % 09/02/18 05:16 Glucose 107 mg/dL (75-100) H 09/02/18 05:16 POC Glucose 149 (70-105) H 09/04/18 12:08 317 Mosm/kg 08/31/18 13:54 Lactic Acid 1.30 mmol/L (0.7-2.0) 08/21/18 20:50 9.6 mg/dL (3.5-7.6) H 08/31/18 13:54 Calcium 8.1 mg/dL (8.4-10.2) L 09/02/18 05:16 Magnesium 2.00 mg/dL (1.7-2.3) 09/02/18 05:16 0.60 mg/dL (0.1-1.2) 08/28/18 04:49 AST 27 units/L (5-40) 08/28/18 04:49 ALT 12 units/L (7-56) 08/28/18 04:49 87 units/L (35-129) 08/28/18 04:49 222 units/L (55-170) H 08/21/18 10:45 CK-MB (CK-2) 9.2 ng/mL (0.0-4.0) H 08/21/18 10:45 CK-MB (CK-2) Rel Index 4.1 (0-4) H 08/21/18 10:45 0.044 ng/mL (0.00-0.029) H D 08/21/18 10:45 9.00 mg/dL (0.00-1.30) H 08/24/18 13:41 NT-Pro-B Natriuret Pep > 17109 pg/mL (0-900) H 08/28/18 04:49 5.4 g/dL (6.3-8.2) L 08/28/18 04:49 2.2 g/dL (3.9-5) L 08/28/18 04:49 0.7 % 08/28/18 04:49 Triglycerides 87 mg/dL (2-149) 08/21/18 04:42 Cholesterol 93 mg/dL (50-199) 08/21/18 04:42 44 mg/dL (50-130) L 08/21/18 04:42 41 mg/dL (40-59) 08/21/18 04:42 2.26 % 08/21/18 04:42 Yellow (Yellow) 08/21/18 15:03 Slightly-cloudy (Clear) 08/21/18 15:03 5.0 (5.0-7.0) 08/21/18 15:03 Ur Specific [place] 1.015 (1.003-1.030) 08/21/18 15:03 30 mg/dl mg/dL (Negative) 08/21/18 15:03 Neg mg/dL (Negative) 08/21/18 15:03 Neg mg/dL (Negative) 08/21/18 15:03 Mod (Negative) 08/21/18 15:03 Neg (Negative) 08/21/18 15:03 Neg (Negative) 08/21/18 15:03 < 2.0 mg/dL (<2.0) 08/21/18 15:03 Ur Leukocyte Esterase Tr (Negative) 08/21/18 15:03 13.0 /HPF (0.0-6.0) H 08/21/18 15:03 15.0 /HPF (0.0-6.0) 08/21/18 15:03 U Epithel Cells (Auto) 1.0 /HPF (0-13.0) 08/21/18 15:03 1+ /HPF (Negative) 08/21/18 15:03 Few /HPF 08/21/18 15:03 Random Vancomycin 10.5 ug/mL (0-40.0) 08/26/18 05:53 Levetiracetam 25.7 mcg/mL (12.0-46.0) 08/26/18 13:42 Hepatitis A IgM Ab Non-reactive (NonReactive) 08/27/18 23:25 Hep Bs Antigen Non-reactive (Negative) 08/27/18 23:25 Hep B Core IgM Ab Non-reactive (NonReactive) 08/27/18 23:25 Non-reactive (NonReactive) 08/27/18 23:25 Active Medications - Current Medications Current Medications: Generic Name Dose Route Start Last Admin Trade Name Freq PRN Reason Stop Dose Admin Acetaminophen 650 mg 08/21/18 06:31 07/05/19 21:12 Tylenol PO 650 mg Q4H PRN Administration Pain MILD(1-3)/Fever >100.5/COOK Albuterol/Ipratropium 1 ampul 08/24/18 20:00 09/04/18 08:10 Duoneb *Not For Prn Use* IH 1 ampul BIDRT LUIS Administration Lipase/Protease/Amylase 1 each 08/26/18 12:07 Pancreamaris [place] 10,500 Unit FEEDTUBE PRN PRN For Clogged Feeding Tube Arformoterol Tartrate 15 mcg 08/24/18 20:00 09/04/18 08:10 Brovana Nebu IH 15 mcg Q12HRT LUIS Administration Bisacodyl 10 mg 09/02/18 12:42 Dulcolax MS QDAY PRN Constipation Budesonide 0.5 mg 08/24/18 20:00 09/04/18 08:10 Pulmicort IH 0.5 mg Q12HRT LUIS Administration Dextrose 50 ml 08/21/18 06:48 D50w (25gm) Syringe IV PRN PRN Hypoglycemia Heparin Sodium (Porcine) 5,000 unit 08/22/18 10:00 09/04/18 11:59 Heparin SUB-Q 5,000 unit Q12HR LUIS Administration Hydralazine HCl 25 mg 08/30/18 22:00 09/04/18 06:28 Apresoline PO 25 mg Q8HR LUIS Administration Insulin Human Lispro 0 unit 08/31/18 22:00 09/04/18 12:01 Humalog SUB-Q Not Given ACHS [facility] Protocol Levetiracetam 750 mg 09/02/18 22:00 09/04/18 11:57 Keppra PO 750 mg BID LUIS Administration Metoclopramide HCl 10 mg 08/25/18 18:00 09/04/18 06:28 Reglan IV 10 mg Q12H LUIS Administration Morphine Sulfate 2 mg 08/26/18 14:24 08/30/18 01:40 Morphine IV 2 mg Q6H PRN Administration Pain, Moderate (4-6) Ondansetron HCl 4 mg 08/21/18 06:31 Zofran IV Q8H PRN Nausea And Vomiting Sodium Chloride 10 ml 08/21/18 10:00 09/04/18 12:00 Sodium Chloride Flush Syringe 10 Ml IV 10 ml BID LUIS Administration Spironolactone 25 mg 09/03/18 11:00 09/04/18 11:57 Aldactone PO 25 mg QDAY LUIS Administration Nutrition/Malnutrition Assess - Dietary Evaluation Nutrition/Malnutrition Findings: Nutrition Notes Start: 08/21/18 16:58 Freq: Status: Active Protocol: Document 09/01/18 19:15 RM (Rec: 09/01/18 19:23 RM [id number]) Nutrition Notes Initial or Follow up Reassessment Current Diagnosis Acute Kidney Injury,CKD(stage I-IV),COPD,Diabetes,Sepsis Other Pertinent Diagnosis Hx colon CA, Pneu Current Diet Cardiac/Consistent CHO Labs/Tests Reviewed Pertinent Medications Reviewed Height 5 ft 6 in Weight 146.3 kg [place] Body Weight (kg) 64.54 BMI 52.0 Subjective/Other Information Pt moved to and TF D/C'd. Diet advanced to Cardiac/ Consistent CHO. Pt and pt in room at time of visit. Pt confused at time of visit. Pt stated that pt eats half of his meals. Percent of energy/protein needs met: 51%/65% Burn Absent Trauma Absent #1 Nutrition Diagnosis Inadequate oral intake Diagnosis Progress(for reassessment Continues documentation) Is patient on ventilator? Yes Is Patient Ambulatory and/or Out of Bed No REE-([facility]-confined to bed) 2592.060 Kcal/Kg value to use for calculation 14 Approximate Energy Requirements Using 2048 kcal/Kg Calculation Used for Recommendations Kcal/kg Additional Notes Protein needs: 65-84g(1-1.3g/ kg IBW) Fluid Needs: 1 ml/kcal Nutrition Intervention Change Diet Order: Continue current Add Supplement/Snack (indicate name/kcal Glucerna Chocolate, [place] /protein ) 1 daily Provides kCal: 220 Provides Protein (gm) 10 Goal #1 Meet at least 75% of kcal and protein needs via PO intakes Anticipated Discharge Needs: Unable to determine at this time Follow-Up By: 09/05/18 Additional Comments Follow for PO and ONS intakes
[2018-09-04 14:28] LABS: Calcium 8.4 mg/dL (8.4-10.2)
--- NOTE | 2018-09-04 17:14 | Progress Note ---
Assessment and Plan Patient is awake. Patient is resting on 3 L O2. O2 saturation is 97%. No acute respiratory distress. Patient is afebrile. No leukocytosis. BP 137/53. - Patient Problems (1) COPD (chronic obstructive pulmonary disease) Current Visit: Yes Status: Acute Plan to address problem: O2 3L nasal canula. Albuterol and atrovent aeorosol treatment q6 hours PRN for shortness of breath. Brovanna/ budesonide aeorsol treatment q 12 hours continue subq heparin. Patient is on reglan. (2) Acute on chronic respiratory failure Current Visit: Yes Status: Acute Plan to address problem: O2 3L nasal canula. Albuterol and atrovent aeorosol treatment q6 hours PRN for shortness of breath. Brovanna/ budesonide aeorsol treatment q 12 hours continue subq heparin. Patient is on reglan. (3) Acute HFrEF (heart failure with reduced ejection fraction) Current Visit: Yes Status: Acute (4) Acute renal failure Current Visit: Yes Status: Acute Plan to address problem: Management as per Nephrology. (5) Altered mental status Current Visit: Yes Status: Acute Plan to address problem: Management as per primary care and neurology. (6) Bacteremia due to coagulase-negative Staphylococcus Current Visit: Yes Status: Acute Plan to address problem: management as per infectious diseases. (7) Anemia Current Visit: Yes Status: Acute Plan to address problem: Management as per primary care. Subjective Date of service: 09/04/18 Principal diagnosis: s/p cardiac arrest; severe sepsis; acute hypoxemic- hypercapnic resp failure Interval history: Patient is awake. Patient is resting on 3 L O2. O2 saturation is 97%. No acute respiratory distress. Patient is afebrile. No leukocytosis. BP 137/53. Objective Vital Signs - 12hr 09/04/18 09/04/18 09/04/18 08:10 08:13 08:20 Temperature 97.8 F Pulse Rate 98 H Pulse Rate [ 97 H Posterior Bilateral Throughout] Respiratory 20 Rate Respiratory 18 Rate [Posterior Bilateral Throughout] Blood Pressure 152/72 O2 Sat by Pulse 97 97 Oximetry 09/04/18 09/04/18 09/04/18 08:30 10:00 11:57 Temperature Pulse Rate 112 H 103 H Pulse Rate [ 100 H Posterior Bilateral Throughout] Respiratory Rate Respiratory 20 Rate [Posterior Bilateral Throughout] Blood Pressure 156/72 O2 Sat by Pulse Oximetry 09/04/18 09/04/18 11:59 14:38 Temperature 97.7 F Pulse Rate 103 H 84 Pulse Rate [ Posterior Bilateral Throughout] Respiratory 20 Rate Respiratory Rate [Posterior Bilateral Throughout] Blood Pressure 156/72 137/53 O2 Sat by Pulse 97 Oximetry Constitutional: no acute distress, alert Eyes: non-icteric ENT: oropharynx moist, other (extubated) Neck: supple, no JVD, other (short neck) Effort: mildly labored Ascultation: Bilateral: diminished breath sounds, rhonchi (improved overall) Percussion: Bilateral: not dull Cardiovascular: regular rate and rhythm, other (S1,S2, no murmurs, no gallops or rubs) Gastrointestinal: normoactive bowel sounds, soft, non-tender, non-distended, other (Madison catheter in place, minimal urine tea colored) Integumentary: normal Extremities: no cyanosis, no edema, pink and warm, pulses normal, no ischemia or petechiae Neurologic: normal mental status, non-focal exam (grossly), pupils equal and round, CN II-XII normal Psychiatric: mood appropriate, affect normal CBC and BMP: 09/02/18 05:16 09/04/18 13:32 ABG, PT/INR, D-dimer: ABG POC ABG pH 7.410 (7.35-7.45) 08/30/18 13:35 POC ABG pCO2 41.4 (35-45) 08/30/18 13:35 POC ABG pO2 99 (80-105) 08/30/18 13:35 POC ABG HCO3 26.2 (22-26 mml/L) 08/30/18 13:35 POC ABG Total CO2 27 (23-27mmol/L) 08/30/18 13:35 POC ABG O2 Sat 98 08/30/18 13:35 PT/INR, D-dimer PT 15.6 Sec. (12.2-14.9) H 08/25/18 16:43 INR 1.27 (0.87-1.13) H 08/25/18 16:43 1978.25 ng/mlDDU (0-234) H 08/24/18 13:41 Abnormal lab findings: Abnormal Labs 08/21/18 08/21/18 08/21/18 04:42 04:42 04:42 WBC 19.1 H RBC 2.49 L Hgb 7.7 L Hct 24.5 L MCV 98 H RDW 17.7 H Plt Count Seg Neuts % (Manual) 84.0 H Lymphocytes % (Manual) 7.0 L Monocytes % (Manual) 9.0 H Nucleated RBC % Seg Neutrophils # Man 16.0 H Lymphocytes # (Manual) Monocytes # (Manual) 1.7 H PT 20.1 H INR 1.76 H D-Dimer POC ABG pH POC ABG pCO2 POC ABG pO2 Sodium Potassium Chloride Carbon Dioxide BUN Creatinine Glucose POC Glucose Lactic Acid Uric Acid Calcium Total Bilirubin AST ALT Total Creatine Kinase CK-MB (CK-2) CK-MB (CK-2) Rel Index Troponin T 0.032 H C-Reactive Protein NT-Pro-B Natriuret Pep Total Protein Albumin LDL Cholesterol Direct 44 L Urine WBC (Auto) 08/21/18 08/21/18 08/21/18 04:42 04:42 04:42 WBC RBC Hgb Hct MCV RDW Plt Count Seg Neuts % (Manual) Lymphocytes % (Manual) Monocytes % (Manual) Nucleated RBC % Seg Neutrophils # Man Lymphocytes # (Manual) Monocytes # (Manual) PT INR D-Dimer POC ABG pH POC ABG pCO2 POC ABG pO2 Sodium Potassium 6.0 H Chloride Carbon Dioxide 15 L BUN 57 H Creatinine 4.3 H Glucose 111 H POC Glucose Lactic Acid 5.80 H* Uric Acid Calcium Total Bilirubin 1.80 H AST 212 H ALT 94 H Total Creatine Kinase CK-MB (CK-2) CK-MB (CK-2) Rel Index Troponin T C-Reactive Protein NT-Pro-B Natriuret Pep 39024 H Total Protein Albumin 3.2 L LDL Cholesterol Direct Urine WBC (Auto) 08/21/18 08/21/18 08/21/18 05:08 05:58 05:58 WBC RBC Hgb Hct MCV RDW Plt Count Seg Neuts % (Manual) Lymphocytes % (Manual) Monocytes % (Manual) Nucleated RBC % Seg Neutrophils # Man Lymphocytes # (Manual) Monocytes # (Manual) PT INR D-Dimer POC ABG pH 7.164 L POC ABG pCO2 46.3 H POC ABG pO2 229 H Sodium Potassium Chloride Carbon Dioxide BUN Creatinine Glucose POC Glucose Lactic Acid 5.10 H* Uric Acid Calcium Total Bilirubin AST ALT Total Creatine Kinase CK-MB (CK-2) CK-MB (CK-2) Rel Index Troponin T 0.035 H C-Reactive Protein NT-Pro-B Natriuret Pep Total Protein Albumin LDL Cholesterol Direct Urine WBC (Auto) 08/21/18 08/21/18 08/21/18 06:45 06:45 06:53 WBC RBC Hgb Hct MCV RDW Plt Count Seg Neuts % (Manual) Lymphocytes % (Manual) Monocytes % (Manual) Nucleated RBC % Seg Neutrophils # Man Lymphocytes # (Manual) Monocytes # (Manual) PT INR D-Dimer POC ABG pH 7.160 L POC ABG pCO2 46.8 H POC ABG pO2 Sodium Potassium Chloride Carbon Dioxide BUN Creatinine Glucose POC Glucose Lactic Acid 4.70 H* Uric Acid Calcium Total Bilirubin AST ALT Total Creatine Kinase 234 H CK-MB (CK-2) 9.1 H CK-MB (CK-2) Rel Index Troponin T 0.032 H C-Reactive Protein NT-Pro-B Natriuret Pep Total Protein Albumin LDL Cholesterol Direct Urine WBC (Auto) 08/21/18 08/21/18 08/21/18 10:43 10:43 10:45 WBC RBC Hgb Hct MCV RDW Plt Count Seg Neuts % (Manual) Lymphocytes % (Manual) Monocytes % (Manual) Nucleated RBC % Seg Neutrophils # Man Lymphocytes # (Manual) Monocytes # (Manual) PT INR D-Dimer POC ABG pH POC ABG pCO2 POC ABG pO2 Sodium Potassium Chloride Carbon Dioxide 17 L BUN 59 H Creatinine 4.2 H Glucose POC Glucose Lactic Acid 3.70 H* Uric Acid Calcium Total Bilirubin AST ALT Total Creatine Kinase 222 H CK-MB (CK-2) 9.2 H CK-MB (CK-2) Rel Index 4.1 H Troponin T 0.044 H D C-Reactive Protein NT-Pro-B Natriuret Pep Total Protein Albumin LDL Cholesterol Direct Urine WBC (Auto) 08/21/18 08/21/18 08/21/18 11:38 12:33 15:03 WBC RBC Hgb Hct MCV RDW Plt Count Seg Neuts % (Manual) Lymphocytes % (Manual) Monocytes % (Manual) Nucleated RBC % Seg Neutrophils # Man Lymphocytes # (Manual) Monocytes # (Manual) PT INR D-Dimer POC ABG pH 7.250 L POC ABG pCO2 POC ABG pO2 121 H Sodium Potassium Chloride Carbon Dioxide BUN Creatinine Glucose POC Glucose 129 H Lactic Acid Uric Acid Calcium Total Bilirubin AST ALT Total Creatine Kinase CK-MB (CK-2) CK-MB (CK-2) Rel Index Troponin T C-Reactive Protein NT-Pro-B Natriuret Pep Total Protein Albumin LDL Cholesterol Direct Urine WBC (Auto) 13.0 H 08/21/18 08/22/18 08/22/18 15:47 00:01 04:27 WBC RBC Hgb Hct MCV RDW Plt Count Seg Neuts % (Manual) Lymphocytes % (Manual) Monocytes % (Manual) Nucleated RBC % Seg Neutrophils # Man Lymphocytes # (Manual) Monocytes # (Manual) PT INR D-Dimer POC ABG pH 7.457 H POC ABG pCO2 POC ABG pO2 117 H Sodium Potassium Chloride Carbon Dioxide BUN Creatinine Glucose POC Glucose 211 H Lactic Acid 2.70 H* Uric Acid Calcium Total Bilirubin AST ALT Total Creatine Kinase CK-MB (CK-2) CK-MB (CK-2) Rel Index Troponin T C-Reactive Protein NT-Pro-B Natriuret Pep Total Protein Albumin LDL Cholesterol Direct Urine WBC (Auto) 08/22/18 08/22/18 08/22/18 05:46 06:10 06:10 WBC RBC 2.27 L Hgb 7.0 L Hct 21.2 L MCV RDW 16.8 H Plt Count 129 L Seg Neuts % (Manual) 95.0 H Lymphocytes % (Manual) 1.0 L Monocytes % (Manual) Nucleated RBC % 1.0 H Seg Neutrophils # Man 7.8 H Lymphocytes # (Manual) 0.1 L Monocytes # (Manual) PT INR D-Dimer POC ABG pH POC ABG pCO2 POC ABG pO2 Sodium Potassium Chloride Carbon Dioxide 20 L BUN 63 H Creatinine 3.9 H Glucose 205 H POC Glucose 223 H Lactic Acid Uric Acid Calcium Total Bilirubin AST ALT Total Creatine Kinase CK-MB (CK-2) CK-MB (CK-2) Rel Index Troponin T C-Reactive Protein NT-Pro-B Natriuret Pep Total Protein Albumin LDL Cholesterol Direct Urine WBC (Auto) 08/22/18 08/22/18 08/22/18 06:10 12:57 16:21 WBC RBC Hgb Hct MCV RDW Plt Count Seg Neuts % (Manual) Lymphocytes % (Manual) Monocytes % (Manual) Nucleated RBC % Seg Neutrophils # Man Lymphocytes # (Manual) Monocytes # (Manual) PT INR D-Dimer POC ABG pH 7.477 H POC ABG pCO2 POC ABG pO2 Sodium Potassium Chloride Carbon Dioxide BUN Creatinine Glucose POC Glucose 166 H Lactic Acid Uric Acid Calcium Total Bilirubin AST ALT Total Creatine Kinase CK-MB (CK-2) CK-MB (CK-2) Rel Index Troponin T C-Reactive Protein 23.60 H NT-Pro-B Natriuret Pep Total Protein Albumin LDL Cholesterol Direct Urine WBC (Auto) 08/22/18 08/22/18 08/23/18 17:41 23:42 04:38 WBC RBC Hgb Hct MCV RDW Plt Count Seg Neuts % (Manual) Lymphocytes % (Manual) Monocytes % (Manual) Nucleated RBC % Seg Neutrophils # Man Lymphocytes # (Manual) Monocytes # (Manual) PT INR D-Dimer POC ABG pH 7.249 L POC ABG pCO2 53.5 H POC ABG pO2 73 L Sodium Potassium Chloride Carbon Dioxide BUN Creatinine Glucose POC Glucose 131 H 168 H Lactic Acid Uric Acid Calcium Total Bilirubin AST ALT Total Creatine Kinase CK-MB (CK-2) CK-MB (CK-2) Rel Index Troponin T C-Reactive Protein NT-Pro-B Natriuret Pep Total Protein Albumin LDL Cholesterol Direct Urine WBC (Auto) 08/23/18 08/23/18 08/23/18 04:52 04:52 04:52 WBC RBC 2.39 L Hgb 7.5 L Hct 22.8 L MCV 95 H RDW 17.6 H Plt Count Seg Neuts % (Manual) Lymphocytes % (Manual) Monocytes % (Manual) Nucleated RBC % Seg Neutrophils # Man Lymphocytes # (Manual) Monocytes # (Manual) PT INR D-Dimer POC ABG pH POC ABG pCO2 POC ABG pO2 Sodium Potassium 5.6 H 5.6 H Chloride Carbon Dioxide 21 L BUN 71 H 72 H Creatinine 4.1 H 4.0 H Glucose 141 H 140 H POC Glucose Lactic Acid Uric Acid Calcium 8.3 L 8.2 L Total Bilirubin AST 247 H ALT 220 H Total Creatine Kinase CK-MB (CK-2) CK-MB (CK-2) Rel Index Troponin T C-Reactive Protein NT-Pro-B Natriuret Pep Total Protein Albumin 2.8 L LDL Cholesterol Direct Urine WBC (Auto) 08/23/18 08/23/18 08/23/18 05:50 08:38 12:21 WBC RBC Hgb Hct MCV RDW Plt Count Seg Neuts % (Manual) Lymphocytes % (Manual) Monocytes % (Manual) Nucleated RBC % Seg Neutrophils # Man Lymphocytes # (Manual) Monocytes # (Manual) PT INR D-Dimer POC ABG pH POC ABG pCO2 POC ABG pO2 Sodium Potassium Chloride Carbon Dioxide BUN Creatinine Glucose POC Glucose 160 H 177 H Lactic Acid Uric Acid Calcium Total Bilirubin AST ALT Total Creatine Kinase CK-MB (CK-2) CK-MB (CK-2) Rel Index Troponin T C-Reactive Protein NT-Pro-B Natriuret Pep 46408 H Total Protein Albumin LDL Cholesterol Direct Urine WBC (Auto) 08/23/18 08/23/18 08/23/18 12:36 14:24 18:05 WBC RBC Hgb Hct MCV RDW Plt Count Seg Neuts % (Manual) Lymphocytes % (Manual) Monocytes % (Manual) Nucleated RBC % Seg Neutrophils # Man Lymphocytes # (Manual) Monocytes # (Manual) PT INR D-Dimer POC ABG pH 7.337 L POC ABG pCO2 POC ABG pO2 145 H Sodium 136 L Potassium 5.2 H Chloride Carbon Dioxide BUN 76 H Creatinine 4.2 H Glucose 158 H POC Glucose 169 H Lactic Acid Uric Acid Calcium 8.1 L Total Bilirubin AST ALT Total Creatine Kinase CK-MB (CK-2) CK-MB (CK-2) Rel Index Troponin T C-Reactive Protein NT-Pro-B Natriuret Pep Total Protein Albumin LDL Cholesterol Direct Urine WBC (Auto) 08/23/18 08/23/18 08/24/18 22:43 23:42 05:16 WBC RBC Hgb Hct MCV RDW Plt Count Seg Neuts % (Manual) Lymphocytes % (Manual) Monocytes % (Manual) Nucleated RBC % Seg Neutrophils # Man Lymphocytes # (Manual) Monocytes # (Manual) PT INR D-Dimer POC ABG pH POC ABG pCO2 POC ABG pO2 Sodium 136 L Potassium 5.3 H 5.2 H Chloride 97.9 L Carbon Dioxide BUN 80 H 86 H Creatinine 4.0 H 4.3 H Glucose 164 H 202 H POC Glucose 183 H Lactic Acid Uric Acid Calcium 7.9 L Total Bilirubin AST ALT Total Creatine Kinase CK-MB (CK-2) CK-MB (CK-2) Rel Index Troponin T C-Reactive Protein NT-Pro-B Natriuret Pep Total Protein Albumin LDL Cholesterol Direct Urine WBC (Auto) 08/24/18 08/24/18 08/24/18 05:21 05:29 10:10 WBC RBC 2.47 L Hgb 7.5 L Hct 23.3 L MCV RDW 17.5 H Plt Count 118 L Seg Neuts % (Manual) 92.0 H Lymphocytes % (Manual) 2.0 L Monocytes % (Manual) Nucleated RBC % Seg Neutrophils # Man 8.8 H Lymphocytes # (Manual) 0.2 L Monocytes # (Manual) PT INR D-Dimer POC ABG pH 7.243 L POC ABG pCO2 56.8 H POC ABG pO2 Sodium Potassium Chloride Carbon Dioxide BUN Creatinine Glucose POC Glucose 209 H Lactic Acid Uric Acid Calcium Total Bilirubin AST ALT Total Creatine Kinase CK-MB (CK-2) CK-MB (CK-2) Rel Index Troponin T C-Reactive Protein NT-Pro-B Natriuret Pep Total Protein Albumin LDL Cholesterol Direct Urine WBC (Auto) 08/24/18 08/24/18 08/24/18 10:10 11:19 13:41 WBC RBC Hgb Hct MCV RDW Plt Count Seg Neuts % (Manual) Lymphocytes % (Manual) Monocytes % (Manual) Nucleated RBC % Seg Neutrophils # Man Lymphocytes # (Manual) Monocytes # (Manual) PT INR D-Dimer 1978.25 H POC ABG pH POC ABG pCO2 POC ABG pO2 Sodium Potassium Chloride Carbon Dioxide BUN Creatinine Glucose POC Glucose 212 H Lactic Acid Uric Acid Calcium Total Bilirubin AST ALT Total Creatine Kinase CK-MB (CK-2) CK-MB (CK-2) Rel Index Troponin T C-Reactive Protein NT-Pro-B Natriuret Pep 81354 H Total Protein Albumin LDL Cholesterol Direct Urine WBC (Auto) 08/24/18 08/24/18 08/24/18 13:41 14:27 17:23 WBC RBC Hgb Hct MCV RDW Plt Count Seg Neuts % (Manual) Lymphocytes % (Manual) Monocytes % (Manual) Nucleated RBC % Seg Neutrophils # Man Lymphocytes # (Manual) Monocytes # (Manual) PT INR D-Dimer POC ABG pH POC ABG pCO2 POC ABG pO2 Sodium 136 L Potassium 5.1 H Chloride 97.8 L Carbon Dioxide BUN 90 H Creatinine 4.1 H Glucose 157 H POC Glucose 155 H Lactic Acid Uric Acid Calcium 8.0 L Total Bilirubin AST ALT Total Creatine Kinase CK-MB (CK-2) CK-MB (CK-2) Rel Index Troponin T C-Reactive Protein 9.00 H NT-Pro-B Natriuret Pep Total Protein Albumin LDL Cholesterol Direct Urine WBC (Auto) 08/25/18 08/25/18 08/25/18 00:38 05:22 05:57 WBC RBC Hgb Hct MCV RDW Plt Count Seg Neuts % (Manual) Lymphocytes % (Manual) Monocytes % (Manual) Nucleated RBC % Seg Neutrophils # Man Lymphocytes # (Manual) Monocytes # (Manual) PT INR D-Dimer POC ABG pH 7.238 L POC ABG pCO2 58.2 H POC ABG pO2 Sodium Potassium 5.4 H Chloride Carbon Dioxide BUN 98 H Creatinine 4.3 H Glucose 217 H POC Glucose 176 H Lactic Acid Uric Acid Calcium 8.3 L Total Bilirubin AST ALT Total Creatine Kinase CK-MB (CK-2) CK-MB (CK-2) Rel Index Troponin T C-Reactive Protein NT-Pro-B Natriuret Pep 42135 H Total Protein Albumin LDL Cholesterol Direct Urine WBC (Auto) 08/25/18 08/25/18 08/25/18 06:56 08:59 11:38 WBC RBC Hgb Hct MCV RDW Plt Count Seg Neuts % (Manual) Lymphocytes % (Manual) Monocytes % (Manual) Nucleated RBC % Seg Neutrophils # Man Lymphocytes # (Manual) Monocytes # (Manual) PT INR D-Dimer POC ABG pH 7.348 L POC ABG pCO2 48.6 H POC ABG pO2 Sodium Potassium Chloride Carbon Dioxide BUN Creatinine Glucose POC Glucose 247 H 235 H Lactic Acid Uric Acid Calcium Total Bilirubin AST ALT Total Creatine Kinase CK-MB (CK-2) CK-MB (CK-2) Rel Index Troponin T C-Reactive Protein NT-Pro-B Natriuret Pep Total Protein Albumin LDL Cholesterol Direct Urine WBC (Auto) 08/25/18 08/25/18 08/25/18 12:29 16:43 16:43 WBC 14.7 H RBC 2.90 L Hgb 8.9 L Hct 27.4 L MCV 95 H RDW 17.3 H Plt Count 119 L Seg Neuts % (Manual) 94.0 H Lymphocytes % (Manual) 2.0 L Monocytes % (Manual) Nucleated RBC % Seg Neutrophils # Man 13.8 H Lymphocytes # (Manual) 0.3 L Monocytes # (Manual) PT 15.6 H INR 1.27 H D-Dimer POC ABG pH POC ABG pCO2 POC ABG pO2 Sodium Potassium Chloride Carbon Dioxide BUN Creatinine Glucose POC Glucose 237 H Lactic Acid Uric Acid Calcium Total Bilirubin AST ALT Total Creatine Kinase CK-MB (CK-2) CK-MB (CK-2) Rel Index Troponin T C-Reactive Protein NT-Pro-B Natriuret Pep Total Protein Albumin LDL Cholesterol Direct Urine WBC (Auto) 08/25/18 08/26/18 08/26/18 17:22 00:16 04:56 WBC RBC Hgb Hct MCV RDW Plt Count Seg Neuts % (Manual) Lymphocytes % (Manual) Monocytes % (Manual) Nucleated RBC % Seg Neutrophils # Man Lymphocytes # (Manual) Monocytes # (Manual) PT INR D-Dimer POC ABG pH POC ABG pCO2 45.2 H POC ABG pO2 Sodium Potassium Chloride Carbon Dioxide BUN Creatinine Glucose POC Glucose 200 H 180 H Lactic Acid Uric Acid Calcium Total Bilirubin AST ALT Total Creatine Kinase CK-MB (CK-2) CK-MB (CK-2) Rel Index Troponin T C-Reactive Protein NT-Pro-B Natriuret Pep Total Protein Albumin LDL Cholesterol Direct Urine WBC (Auto) 08/26/18 08/26/18 08/26/18 05:53 06:20 08:48 WBC RBC Hgb Hct MCV RDW Plt Count Seg Neuts % (Manual) Lymphocytes % (Manual) Monocytes % (Manual) Nucleated RBC % Seg Neutrophils # Man Lymphocytes # (Manual) Monocytes # (Manual) PT INR D-Dimer POC ABG pH POC ABG pCO2 POC ABG pO2 Sodium Potassium Chloride Carbon Dioxide BUN 106 H Creatinine 3.9 H Glucose 137 H POC Glucose 131 H 126 H Lactic Acid Uric Acid Calcium 8.1 L Total Bilirubin AST ALT Total Creatine Kinase CK-MB (CK-2) CK-MB (CK-2) Rel Index Troponin T C-Reactive Protein NT-Pro-B Natriuret Pep > 62917 H Total Protein Albumin LDL Cholesterol Direct Urine WBC (Auto) 08/26/18 08/26/18 08/26/18 11:39 17:33 18:02 WBC RBC Hgb Hct MCV RDW Plt Count Seg Neuts % (Manual) Lymphocytes % (Manual) Monocytes % (Manual) Nucleated RBC % Seg Neutrophils # Man Lymphocytes # (Manual) Monocytes # (Manual) PT INR D-Dimer POC ABG pH POC ABG pCO2 POC ABG pO2 58 L Sodium Potassium Chloride Carbon Dioxide BUN Creatinine Glucose POC Glucose 156 H 173 H Lactic Acid Uric Acid Calcium Total Bilirubin AST ALT Total Creatine Kinase CK-MB (CK-2) CK-MB (CK-2) Rel Index Troponin T C-Reactive Protein NT-Pro-B Natriuret Pep Total Protein Albumin LDL Cholesterol Direct Urine WBC (Auto) 08/26/18 08/27/18 08/27/18 23:12 04:59 11:51 WBC RBC Hgb Hct MCV RDW Plt Count Seg Neuts % (Manual) Lymphocytes % (Manual) Monocytes % (Manual) Nucleated RBC % Seg Neutrophils # Man Lymphocytes # (Manual) Monocytes # (Manual) PT INR D-Dimer POC ABG pH 7.563 H POC ABG pCO2 < 30 L POC ABG pO2 69 L Sodium Potassium Chloride Carbon Dioxide BUN Creatinine Glucose POC Glucose 130 H 107 H Lactic Acid Uric Acid Calcium Total Bilirubin AST ALT Total Creatine Kinase CK-MB (CK-2) CK-MB (CK-2) Rel Index Troponin T C-Reactive Protein NT-Pro-B Natriuret Pep Total Protein Albumin LDL Cholesterol Direct Urine WBC (Auto) 08/27/18 08/27/18 08/27/18 11:58 11:58 11:58 WBC RBC 2.66 L Hgb 8.1 L Hct 24.7 L MCV RDW 16.7 H Plt Count Seg Neuts % (Manual) Lymphocytes % (Manual) Monocytes % (Manual) Nucleated RBC % Seg Neutrophils # Man Lymphocytes # (Manual) Monocytes # (Manual) PT INR D-Dimer POC ABG pH POC ABG pCO2 POC ABG pO2 Sodium Potassium Chloride Carbon Dioxide BUN 71 H Creatinine 2.9 H Glucose POC Glucose Lactic Acid Uric Acid Calcium 7.6 L Total Bilirubin AST ALT Total Creatine Kinase CK-MB (CK-2) CK-MB (CK-2) Rel Index Troponin T C-Reactive Protein NT-Pro-B Natriuret Pep > 05286 H Total Protein 6.1 L Albumin 2.4 L LDL Cholesterol Direct Urine WBC (Auto) 08/28/18 08/28/18 08/28/18 04:38 04:49 04:49 WBC RBC 2.65 L Hgb 8.3 L Hct 25.3 L MCV 96 H RDW 17.3 H Plt Count 83 L Seg Neuts % (Manual) Lymphocytes % (Manual) Monocytes % (Manual) Nucleated RBC % Seg Neutrophils # Man Lymphocytes # (Manual) Monocytes # (Manual) PT INR D-Dimer POC ABG pH POC ABG pCO2 POC ABG pO2 112 H Sodium Potassium Chloride Carbon Dioxide BUN Creatinine Glucose POC Glucose Lactic Acid Uric Acid Calcium Total Bilirubin AST ALT Total Creatine Kinase CK-MB (CK-2) CK-MB (CK-2) Rel Index Troponin T C-Reactive Protein NT-Pro-B Natriuret Pep > 18887 H Total Protein Albumin LDL Cholesterol Direct Urine WBC (Auto) 08/28/18 08/28/18 08/29/18 04:49 14:24 00:11 WBC RBC Hgb Hct MCV RDW Plt Count Seg Neuts % (Manual) Lymphocytes % (Manual) Monocytes % (Manual) Nucleated RBC % Seg Neutrophils # Man Lymphocytes # (Manual) Monocytes # (Manual) PT INR D-Dimer POC ABG pH 7.278 L POC ABG pCO2 57.9 H POC ABG pO2 79 L Sodium Potassium Chloride Carbon Dioxide BUN 69 H Creatinine 2.4 H Glucose POC Glucose 171 H Lactic Acid Uric Acid Calcium 7.7 L Total Bilirubin AST ALT Total Creatine Kinase CK-MB (CK-2) CK-MB (CK-2) Rel Index Troponin T C-Reactive Protein NT-Pro-B Natriuret Pep Total Protein 5.4 L Albumin 2.2 L LDL Cholesterol Direct Urine WBC (Auto) 08/29/18 08/29/18 08/29/18 04:39 05:35 05:35 WBC 13.6 H RBC 3.09 L Hgb 9.4 L Hct 29.5 L MCV 96 H RDW 17.9 H Plt Count 127 L Seg Neuts % (Manual) Lymphocytes % (Manual) Monocytes % (Manual) Nucleated RBC % Seg Neutrophils # Man Lymphocytes # (Manual) Monocytes # (Manual) PT INR D-Dimer POC ABG pH 7.312 L POC ABG pCO2 57.6 H POC ABG pO2 79 L Sodium Potassium Chloride Carbon Dioxide BUN 42 H Creatinine 1.9 H Glucose 107 H POC Glucose Lactic Acid Uric Acid Calcium Total Bilirubin AST ALT Total Creatine Kinase CK-MB (CK-2) CK-MB (CK-2) Rel Index Troponin T C-Reactive Protein NT-Pro-B Natriuret Pep Total Protein Albumin LDL Cholesterol Direct Urine WBC (Auto) 08/29/18 08/29/18 08/29/18 05:48 11:37 15:32 WBC RBC Hgb Hct MCV RDW Plt Count Seg Neuts % (Manual) Lymphocytes % (Manual) Monocytes % (Manual) Nucleated RBC % Seg Neutrophils # Man Lymphocytes # (Manual) Monocytes # (Manual) PT INR D-Dimer POC ABG pH POC ABG pCO2 47.0 H POC ABG pO2 78 L Sodium Potassium Chloride Carbon Dioxide BUN Creatinine Glucose POC Glucose 114 H 116 H Lactic Acid Uric Acid Calcium Total Bilirubin AST ALT Total Creatine Kinase CK-MB (CK-2) CK-MB (CK-2) Rel Index Troponin T C-Reactive Protein NT-Pro-B Natriuret Pep Total Protein Albumin LDL Cholesterol Direct Urine WBC (Auto) 08/29/18 08/30/18 08/30/18 17:28 00:17 04:41 WBC RBC Hgb Hct MCV RDW Plt Count Seg Neuts % (Manual) Lymphocytes % (Manual) Monocytes % (Manual) Nucleated RBC % Seg Neutrophils # Man Lymphocytes # (Manual) Monocytes # (Manual) PT INR D-Dimer POC ABG pH POC ABG pCO2 48.1 H POC ABG pO2 Sodium Potassium Chloride Carbon Dioxide BUN Creatinine Glucose POC Glucose 174 H 132 H Lactic Acid Uric Acid Calcium Total Bilirubin AST ALT Total Creatine Kinase CK-MB (CK-2) CK-MB (CK-2) Rel Index Troponin T C-Reactive Protein NT-Pro-B Natriuret Pep Total Protein Albumin LDL Cholesterol Direct Urine WBC (Auto) 08/30/18 08/30/18 08/30/18 05:17 05:34 06:10 WBC RBC 2.68 L Hgb 8.2 L Hct 25.6 L MCV 96 H RDW 17.2 H Plt Count 118 L Seg Neuts % (Manual) Lymphocytes % (Manual) Monocytes % (Manual) Nucleated RBC % Seg Neutrophils # Man Lymphocytes # (Manual) Monocytes # (Manual) PT INR D-Dimer POC ABG pH POC ABG pCO2 POC ABG pO2 Sodium Potassium Chloride Carbon Dioxide BUN 54 H Creatinine 2.4 H Glucose 120 H POC Glucose 141 H Lactic Acid Uric Acid Calcium Total Bilirubin AST ALT Total Creatine Kinase CK-MB (CK-2) CK-MB (CK-2) Rel Index Troponin T C-Reactive Protein NT-Pro-B Natriuret Pep Total Protein Albumin LDL Cholesterol Direct Urine WBC (Auto) 08/30/18 08/30/18 08/30/18 13:11 18:11 23:55 WBC RBC Hgb Hct MCV RDW Plt Count Seg Neuts % (Manual) Lymphocytes % (Manual) Monocytes % (Manual) Nucleated RBC % Seg Neutrophils # Man Lymphocytes # (Manual) Monocytes # (Manual) PT INR D-Dimer POC ABG pH POC ABG pCO2 POC ABG pO2 Sodium Potassium Chloride Carbon Dioxide BUN Creatinine Glucose POC Glucose 167 H 144 H 144 H Lactic Acid Uric Acid Calcium Total Bilirubin AST ALT Total Creatine Kinase CK-MB (CK-2) CK-MB (CK-2) Rel Index Troponin T C-Reactive Protein NT-Pro-B Natriuret Pep Total Protein Albumin LDL Cholesterol Direct Urine WBC (Auto) 08/31/18 08/31/18 08/31/18 05:07 05:07 05:44 WBC RBC 2.62 L Hgb 8.1 L Hct 25.0 L MCV 96 H RDW 17.5 H Plt Count 128 L Seg Neuts % (Manual) Lymphocytes % (Manual) Monocytes % (Manual) Nucleated RBC % Seg Neutrophils # Man Lymphocytes # (Manual) Monocytes # (Manual) PT INR D-Dimer POC ABG pH POC ABG pCO2 POC ABG pO2 Sodium Potassium Chloride Carbon Dioxide BUN 58 H Creatinine 2.3 H Glucose 103 H POC Glucose 109 H Lactic Acid Uric Acid Calcium Total Bilirubin AST ALT Total Creatine Kinase CK-MB (CK-2) CK-MB (CK-2) Rel Index Troponin T C-Reactive Protein NT-Pro-B Natriuret Pep Total Protein Albumin LDL Cholesterol Direct Urine WBC (Auto) 08/31/18 08/31/18 08/31/18 11:26 13:54 19:05 WBC RBC Hgb Hct MCV RDW Plt Count Seg Neuts % (Manual) Lymphocytes % (Manual) Monocytes % (Manual) Nucleated RBC % Seg Neutrophils # Man Lymphocytes # (Manual) Monocytes # (Manual) PT INR D-Dimer POC ABG pH POC ABG pCO2 POC ABG pO2 Sodium Potassium Chloride Carbon Dioxide BUN Creatinine Glucose POC Glucose 117 H 186 H Lactic Acid Uric Acid 9.6 H Calcium Total Bilirubin AST ALT Total Creatine Kinase CK-MB (CK-2) CK-MB (CK-2) Rel Index Troponin T C-Reactive Protein NT-Pro-B Natriuret Pep Total Protein Albumin LDL Cholesterol Direct Urine WBC (Auto) 08/31/18 09/01/18 09/01/18 23:50 06:27 09:21 WBC RBC 2.74 L Hgb 8.6 L Hct 25.8 L MCV RDW 17.3 H Plt Count Seg Neuts % (Manual) Lymphocytes % (Manual) Monocytes % (Manual) Nucleated RBC % Seg Neutrophils # Man Lymphocytes # (Manual) Monocytes # (Manual) PT INR D-Dimer POC ABG pH POC ABG pCO2 POC ABG pO2 Sodium Potassium Chloride Carbon Dioxide BUN Creatinine Glucose POC Glucose 141 H 62 L Lactic Acid Uric Acid Calcium Total Bilirubin AST ALT Total Creatine Kinase CK-MB (CK-2) CK-MB (CK-2) Rel Index Troponin T C-Reactive Protein NT-Pro-B Natriuret Pep Total Protein Albumin LDL Cholesterol Direct Urine WBC (Auto) 09/01/18 09/01/18 09/01/18 09:21 12:27 17:51 WBC RBC Hgb Hct MCV RDW Plt Count Seg Neuts % (Manual) Lymphocytes % (Manual) Monocytes % (Manual) Nucleated RBC % Seg Neutrophils # Man Lymphocytes # (Manual) Monocytes # (Manual) PT INR D-Dimer POC ABG pH POC ABG pCO2 POC ABG pO2 Sodium Potassium 3.0 L D Chloride 109.8 H Carbon Dioxide BUN 45 H Creatinine 1.7 H Glucose POC Glucose 106 H 108 H Lactic Acid Uric Acid Calcium 7.1 L D Total Bilirubin AST ALT Total Creatine Kinase CK-MB (CK-2) CK-MB (CK-2) Rel Index Troponin T C-Reactive Protein NT-Pro-B Natriuret Pep Total Protein Albumin LDL Cholesterol Direct Urine WBC (Auto) 09/02/18 09/02/18 09/02/18 05:16 05:16 12:01 WBC RBC 2.60 L Hgb 8.1 L Hct 24.8 L MCV 95 H RDW 17.1 H Plt Count Seg Neuts % (Manual) Lymphocytes % (Manual) Monocytes % (Manual) Nucleated RBC % Seg Neutrophils # Man Lymphocytes # (Manual) Monocytes # (Manual) PT INR D-Dimer POC ABG pH POC ABG pCO2 POC ABG pO2 Sodium Potassium Chloride Carbon Dioxide BUN 49 H Creatinine 1.8 H Glucose 107 H POC Glucose 124 H Lactic Acid Uric Acid Calcium 8.1 L Total Bilirubin AST ALT Total Creatine Kinase CK-MB (CK-2) CK-MB (CK-2) Rel Index Troponin T C-Reactive Protein NT-Pro-B Natriuret Pep Total Protein Albumin LDL Cholesterol Direct Urine WBC (Auto) 09/02/18 09/02/18 09/03/18 18:38 23:12 08:22 WBC RBC Hgb Hct MCV RDW Plt Count Seg Neuts % (Manual) Lymphocytes % (Manual) Monocytes % (Manual) Nucleated RBC % Seg Neutrophils # Man Lymphocytes # (Manual) Monocytes # (Manual) PT INR D-Dimer POC ABG pH POC ABG pCO2 POC ABG pO2 Sodium Potassium Chloride Carbon Dioxide BUN Creatinine Glucose POC Glucose 164 H 128 H 115 H Lactic Acid Uric Acid Calcium Total Bilirubin AST ALT Total Creatine Kinase CK-MB (CK-2) CK-MB (CK-2) Rel Index Troponin T C-Reactive Protein NT-Pro-B Natriuret Pep Total Protein Albumin LDL Cholesterol Direct Urine WBC (Auto) 09/03/18 09/03/18 09/03/18 11:48 16:37 20:48 WBC RBC Hgb Hct MCV RDW Plt Count Seg Neuts % (Manual) Lymphocytes % (Manual) Monocytes % (Manual) Nucleated RBC % Seg Neutrophils # Man Lymphocytes # (Manual) Monocytes # (Manual) PT INR D-Dimer POC ABG pH POC ABG pCO2 POC ABG pO2 Sodium Potassium Chloride Carbon Dioxide BUN Creatinine Glucose POC Glucose 203 H 146 H 150 H Lactic Acid Uric Acid Calcium Total Bilirubin AST ALT Total Creatine Kinase CK-MB (CK-2) CK-MB (CK-2) Rel Index Troponin T C-Reactive Protein NT-Pro-B Natriuret Pep Total Protein Albumin LDL Cholesterol Direct Urine WBC (Auto) 09/04/18 09/04/18 09/04/18 08:29 12:08 13:32 WBC RBC Hgb Hct MCV RDW Plt Count Seg Neuts % (Manual) Lymphocytes % (Manual) Monocytes % (Manual) Nucleated RBC % Seg Neutrophils # Man Lymphocytes # (Manual) Monocytes # (Manual) PT INR D-Dimer POC ABG pH POC ABG pCO2 POC ABG pO2 Sodium 136 L Potassium Chloride Carbon Dioxide BUN 42 H Creatinine 1.6 H Glucose 180 H POC Glucose 129 H 149 H Lactic Acid Uric Acid Calcium Total Bilirubin AST ALT Total Creatine Kinase CK-MB (CK-2) CK-MB (CK-2) Rel Index Troponin T C-Reactive Protein NT-Pro-B Natriuret Pep Total Protein Albumin LDL Cholesterol Direct Urine WBC (Auto) 09/04/18 16:33 WBC RBC Hgb Hct MCV RDW Plt Count Seg Neuts % (Manual) Lymphocytes % (Manual) Monocytes % (Manual) Nucleated RBC % Seg Neutrophils # Man Lymphocytes # (Manual) Monocytes # (Manual) PT INR D-Dimer POC ABG pH POC ABG pCO2 POC ABG pO2 Sodium Potassium Chloride Carbon Dioxide BUN Creatinine Glucose POC Glucose 165 H Lactic Acid Uric Acid Calcium Total Bilirubin AST ALT Total Creatine Kinase CK-MB (CK-2) CK-MB (CK-2) Rel Index Troponin T C-Reactive Protein NT-Pro-B Natriuret Pep Total Protein Albumin LDL Cholesterol Direct Urine WBC (Auto) Chest x-ray: report reviewed (Mild improvement in venous congestion. Mild bibasilar atelectasis.), image reviewed Allied health notes reviewed: nursing
[2018-09-05] MEDS: APRESOLINE PO SCH ×3 (05:52→22:07)
[2018-09-05] MEDS: REGLAN IV SCH ×2 (06:14→17:40)
[2018-09-05] MEDS: DUONEB *Not for PRN Use IH SCH ×2 (07:19→19:56)
[2018-09-05] MEDS: BROVANA NEBU IH SCH ×2 (07:20→19:56)
[2018-09-05] MEDS: PULMICORT IH SCH ×2 (07:20→19:56)
[2018-09-05 07:45] LABS: Hematocrit 27.4 % (35.5-45.6); Hemoglobin 9.1 gm/dl (11.8-15.2); Mean Corpuscular HGB Conc 33 % (32-34); Mean Corpuscular Hemoglobin 31 pg (28-32); Mean Corpuscular Volume 94 fl (84-94); Platelet Count 167 K/mm3 (140-440); Red Blood Count 2.92 M/mm3 (3.65-5.03); Red Cell Distribution Width 17.3 % (13.2-15.2)
[2018-09-05] MEDS: HumaLOG SUB-Q SCH ×4 (08:00→22:07)
[2018-09-05 08:14] LABS: Calcium 8.6 mg/dL (8.4-10.2)
--- NOTE | 2018-09-05 09:47 | Progress Note ---
Assessment and Plan Impression: * KHRIS on ckd * s/p Cardiopulmonary arrest with ROSC * Acute on chronic hypoxemic respiratory failure on MVS * Lactic acidosis * Acute metabolic/respiratory acidosis * Sepsis probably secondary to aspiration PNA * COPD * Acute metabolic-toxic encephalopathy * NSTEMI * Type 2 DM Plan: * antibiotics per primary team * daily lytes * renal diet * Renal function improving . His Vas-Cath has been removed. * No further indication for dialysis at this time. * Continue to monitor SCr and UOP . Approximately 1300 mL of urine recorded yesterday. * He currently has indwelling Madison catheter in place. * Strict I/O * Avoid nephrotoxins Subjective Date of service: 09/05/18 Principal diagnosis: s/p cardiac arrest; severe sepsis; acute hypoxemic- hypercapnic resp failure Interval history: Patient is comfortable today. Denies any shortness of breath. Currently on oxygen with nasal cannula at 3 L/m. Objective - Vital Signs Vital signs: Vital Signs - 12hr 09/04/18 09/05/18 09/05/18 22:00 00:03 01:04 Temperature 98.2 F Pulse Rate 105 H 74 94 H Pulse Rate [ Anterior Bilateral Throughout] Respiratory 22 18 16 Rate Respiratory Rate [Anterior Bilateral Throughout] Blood Pressure 138/64 Blood Pressure [Right] O2 Sat by Pulse 97 97 Oximetry 09/05/18 09/05/18 09/05/18 04:00 07:20 07:50 Temperature 98.6 F Pulse Rate 76 Pulse Rate [ 97 H 95 H Anterior Bilateral Throughout] Respiratory 16 Rate Respiratory 18 20 Rate [Anterior Bilateral Throughout] Blood Pressure Blood Pressure 167/72 [Right] O2 Sat by Pulse 97 98 Oximetry 09/05/18 07:55 Temperature 98.4 F Pulse Rate Pulse Rate [ Anterior Bilateral Throughout] Respiratory 18 Rate Respiratory Rate [Anterior Bilateral Throughout] Blood Pressure 151/75 Blood Pressure [Right] O2 Sat by Pulse Oximetry - General Appearance General appearance: well-developed, well-nourished, appears stated age, obese EENT: PERRL, mucous membranes moist Neck: no JVD, no thyromegaly, no carotid bruit, supple Respiratory: Present: Clear to Ascultation Cardiology: regular, normal heart rate, S1S2, no murmurs Gastrointestinal: normal, normoactive bowel sounds Integumentary: other (no edema) - Lab 09/05/18 07:03 09/05/18 07:03 Most recent lab results Calcium 8.6 mg/dL (8.4-10.2) 09/05/18 07:03 Magnesium 2.00 mg/dL (1.7-2.3) 09/02/18 05:16 Medications & Allergies - Medications Allergies/Adverse Reactions: Allergies Penicillins Allergy (Verified 08/21/18 04:49) Unknown -cillins Allergy (Uncoded 08/21/18 04:49) Unknown Home Medications: Home Medications Medication Instructions Recorded Confirmed Last Taken Type AtorvaSTATin [Lipitor] 10 mg PO QHS 08/21/18 08/21/18 Unknown History Ferrous Sulfate [Feosol] 325 mg PO QDAY 08/21/18 08/21/18 Unknown History Melatonin [Melatonin 10MG CAP] 10 mg PO DAILY 08/21/18 08/21/18 Unknown History NIFEdipine [Nifedipine ER] 60 mg PO BID 08/21/18 08/21/18 Unknown History Sennosides Tab [Senokot] 1 tab PO HS 08/21/18 08/21/18 Unknown History Tamsulosin [Flomax] 2 cap PO HS 08/21/18 08/21/18 Unknown History Torsemide [Demadex] 20 mg PO DAILY 08/21/18 08/21/18 Unknown History Venlafaxine HCl [Venlafaxin ER] 75 mg PO QDAY 08/21/18 08/21/18 Unknown History buPROPion [Wellbutrin] 100 mg PO DAILY 08/21/18 08/21/18 Unknown History Active Medications: Generic Name Dose Route Start Last Admin Trade Name Freq PRN Reason Stop Dose Admin Acetaminophen 650 mg 08/21/18 06:31 09/01/18 21:12 Tylenol PO 650 mg Q4H PRN Administration Pain MILD(1-3)/Fever >100.5/COOK Albuterol/Ipratropium 1 ampul 08/24/18 20:00 09/05/18 07:19 Duoneb *Not For Prn Use* IH 1 ampul BIDRT LUIS Administration Lipase/Protease/Amylase 1 each 08/26/18 12:07 [place]aye [place] 10,500 Unit FEEDTUBE PRN PRN For Clogged Feeding Tube Arformoterol Tartrate 15 mcg 08/24/18 20:00 09/05/18 07:20 Brovana Nebu IH 15 mcg Q12HRT LUIS Administration Bisacodyl 10 mg 09/02/18 12:42 Dulcolax PA QDAY PRN Constipation Budesonide 0.5 mg 08/24/18 20:00 09/05/18 07:20 Pulmicort IH 0.5 mg Q12HRT LUIS Administration Dextrose 50 ml 08/21/18 06:48 D50w (25gm) Syringe IV PRN PRN Hypoglycemia Heparin Sodium (Porcine) 5,000 unit 08/22/18 10:00 09/04/18 22:44 Heparin SUB-Q 5,000 unit Q12HR LUIS Administration Hydralazine HCl 25 mg 08/30/18 22:00 09/05/18 05:52 Apresoline PO 25 mg Q8HR LUIS Administration Insulin Human Lispro 0 unit 08/31/18 22:00 09/04/18 22:52 Humalog SUB-Q Not Given ACHS [facility] Protocol Levetiracetam 750 mg 09/04/18 22:00 09/04/18 22:44 Keppra PO 750 mg BID LUIS Administration Metoclopramide HCl 10 mg 08/25/18 18:00 09/05/18 06:14 Reglan IV Not Given Q12H LUIS Morphine Sulfate 2 mg 08/26/18 14:24 08/30/18 01:40 Morphine IV 2 mg Q6H PRN Administration Pain, Moderate (4-6) Ondansetron HCl 4 mg 08/21/18 06:31 Zofran IV Q8H PRN Nausea And Vomiting Sodium Chloride 10 ml 08/21/18 10:00 09/04/18 22:52 Sodium Chloride Flush Syringe 10 Ml IV 10 ml BID LUIS Administration Spironolactone 25 mg 09/03/18 11:00 09/04/18 11:57 Aldactone PO 25 mg QDAY LUIS Administration
--- NOTE | 2018-09-05 11:17 | Cat Scan Report ---
CT CHEST WITHOUT CONTRAST INDICATION / CLINICAL INFORMATION: MAIN: Pt stated had a heart attack x10 days ago, no prior surgeries. . Chest pain TECHNIQUE: Axial CT images were obtained through the chest without contrast. Sagittal and coronal reformatted im ages. All CT scans at this location are performed using CT dose reduction for ALARA by means of autom ated exposure control. COMPARISON: None available. FINDINGS: HEART: Mild cardiomegaly. No pericardial effusion. THORACIC AORTA: Mild diffuse calcifications. No aneurysm. MEDIASTINUM and ESTHER: No significant abnormality. LUNGS: Mild segmental atelectasis is identified in both lower lobes, right greater than left. No evid ence for mass or interstitial lung disease PLEURA: Small right pleural effusion. Trace left pleural effusion. No pneumothorax. ADDITIONAL FINDINGS: None. UPPER ABDOMEN: Moderate cirrhosis of the liver and ascites is identified in the upper abdomen SKELETAL SYSTEM: The bony structures are mildly demineralized. Nondisplaced anterior rib fractures ar e identified bilaterally spanning from levels 2-6. IMPRESSION: Mild cardiomegaly. Bibasilar atelectatic changes. Small to trace bilateral pleural effusions. Bilateral nondisplaced anterior rib fractures. Cirrhosis and ascites. Signer Name: Hilario Harris Jr, MD Signed: 09/05/2018 11:13 AM Workstation Name: [id number]
[2018-09-05] MEDS: KEPPRA PO SCH ×2 (11:59→22:06)
[2018-09-05] MEDS: ALDACTONE PO SCH (11:59)
[2018-09-05] MEDS: SODIUM CHLORIDE FLUSH SYRINGE 10 ML IV SCH ×2 (12:00→22:07)
[2018-09-05] MEDS: HEPARIN SUB-Q SCH ×2 (12:03→22:06)
[2018-09-05 12:22] LABS: Anisocytosis 1+; Band Neutrophils # (Manual) 0.1 K/mm3; Basophils % (Manual) 0 % (0.0-1.8); Macrocytosis Few; Platelet Estimate Consistent w Auto; Total Cells Counted 100
--- NOTE | 2018-09-05 14:38 | Progress Note ---
Assessment and Plan Patient is sleeping at this time on CPAP with 4 L O2. O2 saturation is 95%. No acute respiratory distress. Patient is afebrile. No leukocytosis. BP 151/75. - Patient Problems (1) COPD (chronic obstructive pulmonary disease) Current Visit: Yes Status: Acute Plan to address problem: CPAP with 4 litres O2. 4 litres O2 when he is not on BIPAP. Albuterol and atrovent aeorosol treatment q6 hours PRN for shortness of breath. Brovanna/ budesonide aeorsol treatment q 12 hours continue subq heparin. Patient is on reglan. (2) Acute on chronic respiratory failure Current Visit: Yes Status: Acute Plan to address problem: CPAP with 4 litres O2. 4 litres O2 when she is on BIPAP. Albuterol and atrovent aeorosol treatment q6 hours PRN for shortness of breath. Brovanna/ budesonide aeorsol treatment q 12 hours continue subq heparin. Patient is on reglan. (3) Acute HFrEF (heart failure with reduced ejection fraction) Current Visit: Yes Status: Acute Plan to address problem: Management as per cardiology. (4) Acute renal failure Current Visit: Yes Status: Acute Plan to address problem: Management as per Nephrology. (5) Altered mental status Current Visit: Yes Status: Acute Plan to address problem: Management as per primary care and neurology. (6) Bacteremia due to coagulase-negative Staphylococcus Current Visit: Yes Status: Acute Plan to address problem: management as per infectious diseases. (7) Anemia Current Visit: Yes Status: Acute Plan to address problem: Management as per primary care. Subjective Date of service: 09/05/18 Principal diagnosis: s/p cardiac arrest; severe sepsis; acute hypoxemic- hypercapnic resp failure Interval history: Patient is sleeping at this time on CPAP with 4 L O2. O2 saturation is 95%. No acute respiratory distress. Patient is afebrile. No leukocytosis. BP 151/75. Objective Vital Signs - 12hr 09/05/18 09/05/18 09/05/18 04:00 07:20 07:50 Temperature 98.6 F Pulse Rate 76 Pulse Rate [ 97 H 95 H Anterior Bilateral Throughout] Pulse Rate [ Apical] Respiratory 16 Rate Respiratory 18 20 Rate [Anterior Bilateral Throughout] Blood Pressure Blood Pressure 167/72 [Right] O2 Sat by Pulse 97 98 Oximetry 09/05/18 09/05/18 07:55 10:00 Temperature 98.4 F Pulse Rate 108 H Pulse Rate [ Anterior Bilateral Throughout] Pulse Rate [ 108 H Apical] Respiratory 18 18 Rate Respiratory Rate [Anterior Bilateral Throughout] Blood Pressure 151/75 Blood Pressure [Right] O2 Sat by Pulse 95 Oximetry Constitutional: no acute distress, alert Eyes: non-icteric ENT: oropharynx moist, other (extubated) Neck: supple, no JVD, other (short neck) Effort: mildly labored Ascultation: Bilateral: diminished breath sounds, rhonchi (improved overall) Percussion: Bilateral: not dull Cardiovascular: regular rate and rhythm, other (S1,S2, no murmurs, no gallops or rubs) Gastrointestinal: normoactive bowel sounds, soft, non-tender, non-distended, other (Madison catheter in place, minimal urine tea colored) Integumentary: normal Extremities: no cyanosis, no edema, pink and warm, pulses normal, no ischemia or petechiae Neurologic: normal mental status, non-focal exam (grossly), pupils equal and round, CN II-XII normal Psychiatric: mood appropriate, affect normal CBC and BMP: 09/05/18 07:03 09/05/18 07:03 ABG, PT/INR, D-dimer: ABG POC ABG pH 7.410 (7.35-7.45) 08/30/18 13:35 POC ABG pCO2 41.4 (35-45) 08/30/18 13:35 POC ABG pO2 99 (80-105) 08/30/18 13:35 POC ABG HCO3 26.2 (22-26 mml/L) 08/30/18 13:35 POC ABG Total CO2 27 (23-27mmol/L) 08/30/18 13:35 POC ABG O2 Sat 98 08/30/18 13:35 PT/INR, D-dimer PT 15.6 Sec. (12.2-14.9) H 08/25/18 16:43 INR 1.27 (0.87-1.13) H 08/25/18 16:43 1978.25 ng/mlDDU (0-234) H 08/24/18 13:41 Abnormal lab findings: Abnormal Labs 08/21/18 08/21/18 08/21/18 04:42 04:42 04:42 WBC 19.1 H RBC 2.49 L Hgb 7.7 L Hct 24.5 L MCV 98 H RDW 17.7 H Plt Count Seg Neuts % (Manual) 84.0 H Lymphocytes % (Manual) 7.0 L Monocytes % (Manual) 9.0 H Nucleated RBC % Seg Neutrophils # Man 16.0 H Lymphocytes # (Manual) Monocytes # (Manual) 1.7 H PT 20.1 H INR 1.76 H D-Dimer POC ABG pH POC ABG pCO2 POC ABG pO2 Sodium Potassium Chloride Carbon Dioxide BUN Creatinine Glucose POC Glucose Lactic Acid Uric Acid Calcium Total Bilirubin AST ALT Total Creatine Kinase CK-MB (CK-2) CK-MB (CK-2) Rel Index Troponin T 0.032 H C-Reactive Protein NT-Pro-B Natriuret Pep Total Protein Albumin LDL Cholesterol Direct 44 L Urine WBC (Auto) 08/21/18 08/21/18 08/21/18 04:42 04:42 04:42 WBC RBC Hgb Hct MCV RDW Plt Count Seg Neuts % (Manual) Lymphocytes % (Manual) Monocytes % (Manual) Nucleated RBC % Seg Neutrophils # Man Lymphocytes # (Manual) Monocytes # (Manual) PT INR D-Dimer POC ABG pH POC ABG pCO2 POC ABG pO2 Sodium Potassium 6.0 H Chloride Carbon Dioxide 15 L BUN 57 H Creatinine 4.3 H Glucose 111 H POC Glucose Lactic Acid 5.80 H* Uric Acid Calcium Total Bilirubin 1.80 H AST 212 H ALT 94 H Total Creatine Kinase CK-MB (CK-2) CK-MB (CK-2) Rel Index Troponin T C-Reactive Protein NT-Pro-B Natriuret Pep 08560 H Total Protein Albumin 3.2 L LDL Cholesterol Direct Urine WBC (Auto) 08/21/18 08/21/18 08/21/18 05:08 05:58 05:58 WBC RBC Hgb Hct MCV RDW Plt Count Seg Neuts % (Manual) Lymphocytes % (Manual) Monocytes % (Manual) Nucleated RBC % Seg Neutrophils # Man Lymphocytes # (Manual) Monocytes # (Manual) PT INR D-Dimer POC ABG pH 7.164 L POC ABG pCO2 46.3 H POC ABG pO2 229 H Sodium Potassium Chloride Carbon Dioxide BUN Creatinine Glucose POC Glucose Lactic Acid 5.10 H* Uric Acid Calcium Total Bilirubin AST ALT Total Creatine Kinase CK-MB (CK-2) CK-MB (CK-2) Rel Index Troponin T 0.035 H C-Reactive Protein NT-Pro-B Natriuret Pep Total Protein Albumin LDL Cholesterol Direct Urine WBC (Auto) 08/21/18 08/21/18 08/21/18 06:45 06:45 06:53 WBC RBC Hgb Hct MCV RDW Plt Count Seg Neuts % (Manual) Lymphocytes % (Manual) Monocytes % (Manual) Nucleated RBC % Seg Neutrophils # Man Lymphocytes # (Manual) Monocytes # (Manual) PT INR D-Dimer POC ABG pH 7.160 L POC ABG pCO2 46.8 H POC ABG pO2 Sodium Potassium Chloride Carbon Dioxide BUN Creatinine Glucose POC Glucose Lactic Acid 4.70 H* Uric Acid Calcium Total Bilirubin AST ALT Total Creatine Kinase 234 H CK-MB (CK-2) 9.1 H CK-MB (CK-2) Rel Index Troponin T 0.032 H C-Reactive Protein NT-Pro-B Natriuret Pep Total Protein Albumin LDL Cholesterol Direct Urine WBC (Auto) 08/21/18 08/21/18 08/21/18 10:43 10:43 10:45 WBC RBC Hgb Hct MCV RDW Plt Count Seg Neuts % (Manual) Lymphocytes % (Manual) Monocytes % (Manual) Nucleated RBC % Seg Neutrophils # Man Lymphocytes # (Manual) Monocytes # (Manual) PT INR D-Dimer POC ABG pH POC ABG pCO2 POC ABG pO2 Sodium Potassium Chloride Carbon Dioxide 17 L BUN 59 H Creatinine 4.2 H Glucose POC Glucose Lactic Acid 3.70 H* Uric Acid Calcium Total Bilirubin AST ALT Total Creatine Kinase 222 H CK-MB (CK-2) 9.2 H CK-MB (CK-2) Rel Index 4.1 H Troponin T 0.044 H D C-Reactive Protein NT-Pro-B Natriuret Pep Total Protein Albumin LDL Cholesterol Direct Urine WBC (Auto) 08/21/18 08/21/18 08/21/18 11:38 12:33 15:03 WBC RBC Hgb Hct MCV RDW Plt Count Seg Neuts % (Manual) Lymphocytes % (Manual) Monocytes % (Manual) Nucleated RBC % Seg Neutrophils # Man Lymphocytes # (Manual) Monocytes # (Manual) PT INR D-Dimer POC ABG pH 7.250 L POC ABG pCO2 POC ABG pO2 121 H Sodium Potassium Chloride Carbon Dioxide BUN Creatinine Glucose POC Glucose 129 H Lactic Acid Uric Acid Calcium Total Bilirubin AST ALT Total Creatine Kinase CK-MB (CK-2) CK-MB (CK-2) Rel Index Troponin T C-Reactive Protein NT-Pro-B Natriuret Pep Total Protein Albumin LDL Cholesterol Direct Urine WBC (Auto) 13.0 H 08/21/18 08/22/18 08/22/18 15:47 00:01 04:27 WBC RBC Hgb Hct MCV RDW Plt Count Seg Neuts % (Manual) Lymphocytes % (Manual) Monocytes % (Manual) Nucleated RBC % Seg Neutrophils # Man Lymphocytes # (Manual) Monocytes # (Manual) PT INR D-Dimer POC ABG pH 7.457 H POC ABG pCO2 POC ABG pO2 117 H Sodium Potassium Chloride Carbon Dioxide BUN Creatinine Glucose POC Glucose 211 H Lactic Acid 2.70 H* Uric Acid Calcium Total Bilirubin AST ALT Total Creatine Kinase CK-MB (CK-2) CK-MB (CK-2) Rel Index Troponin T C-Reactive Protein NT-Pro-B Natriuret Pep Total Protein Albumin LDL Cholesterol Direct Urine WBC (Auto) 08/22/18 08/22/18 08/22/18 05:46 06:10 06:10 WBC RBC 2.27 L Hgb 7.0 L Hct 21.2 L MCV RDW 16.8 H Plt Count 129 L Seg Neuts % (Manual) 95.0 H Lymphocytes % (Manual) 1.0 L Monocytes % (Manual) Nucleated RBC % 1.0 H Seg Neutrophils # Man 7.8 H Lymphocytes # (Manual) 0.1 L Monocytes # (Manual) PT INR D-Dimer POC ABG pH POC ABG pCO2 POC ABG pO2 Sodium Potassium Chloride Carbon Dioxide 20 L BUN 63 H Creatinine 3.9 H Glucose 205 H POC Glucose 223 H Lactic Acid Uric Acid Calcium Total Bilirubin AST ALT Total Creatine Kinase CK-MB (CK-2) CK-MB (CK-2) Rel Index Troponin T C-Reactive Protein NT-Pro-B Natriuret Pep Total Protein Albumin LDL Cholesterol Direct Urine WBC (Auto) 08/22/18 08/22/18 08/22/18 06:10 12:57 16:21 WBC RBC Hgb Hct MCV RDW Plt Count Seg Neuts % (Manual) Lymphocytes % (Manual) Monocytes % (Manual) Nucleated RBC % Seg Neutrophils # Man Lymphocytes # (Manual) Monocytes # (Manual) PT INR D-Dimer POC ABG pH 7.477 H POC ABG pCO2 POC ABG pO2 Sodium Potassium Chloride Carbon Dioxide BUN Creatinine Glucose POC Glucose 166 H Lactic Acid Uric Acid Calcium Total Bilirubin AST ALT Total Creatine Kinase CK-MB (CK-2) CK-MB (CK-2) Rel Index Troponin T C-Reactive Protein 23.60 H NT-Pro-B Natriuret Pep Total Protein Albumin LDL Cholesterol Direct Urine WBC (Auto) 08/22/18 08/22/18 08/23/18 17:41 23:42 04:38 WBC RBC Hgb Hct MCV RDW Plt Count Seg Neuts % (Manual) Lymphocytes % (Manual) Monocytes % (Manual) Nucleated RBC % Seg Neutrophils # Man Lymphocytes # (Manual) Monocytes # (Manual) PT INR D-Dimer POC ABG pH 7.249 L POC ABG pCO2 53.5 H POC ABG pO2 73 L Sodium Potassium Chloride Carbon Dioxide BUN Creatinine Glucose POC Glucose 131 H 168 H Lactic Acid Uric Acid Calcium Total Bilirubin AST ALT Total Creatine Kinase CK-MB (CK-2) CK-MB (CK-2) Rel Index Troponin T C-Reactive Protein NT-Pro-B Natriuret Pep Total Protein Albumin LDL Cholesterol Direct Urine WBC (Auto) 08/23/18 08/23/18 08/23/18 04:52 04:52 04:52 WBC RBC 2.39 L Hgb 7.5 L Hct 22.8 L MCV 95 H RDW 17.6 H Plt Count Seg Neuts % (Manual) Lymphocytes % (Manual) Monocytes % (Manual) Nucleated RBC % Seg Neutrophils # Man Lymphocytes # (Manual) Monocytes # (Manual) PT INR D-Dimer POC ABG pH POC ABG pCO2 POC ABG pO2 Sodium Potassium 5.6 H 5.6 H Chloride Carbon Dioxide 21 L BUN 71 H 72 H Creatinine 4.1 H 4.0 H Glucose 141 H 140 H POC Glucose Lactic Acid Uric Acid Calcium 8.3 L 8.2 L Total Bilirubin AST 247 H ALT 220 H Total Creatine Kinase CK-MB (CK-2) CK-MB (CK-2) Rel Index Troponin T C-Reactive Protein NT-Pro-B Natriuret Pep Total Protein Albumin 2.8 L LDL Cholesterol Direct Urine WBC (Auto) 08/23/18 08/23/18 08/23/18 05:50 08:38 12:21 WBC RBC Hgb Hct MCV RDW Plt Count Seg Neuts % (Manual) Lymphocytes % (Manual) Monocytes % (Manual) Nucleated RBC % Seg Neutrophils # Man Lymphocytes # (Manual) Monocytes # (Manual) PT INR D-Dimer POC ABG pH POC ABG pCO2 POC ABG pO2 Sodium Potassium Chloride Carbon Dioxide BUN Creatinine Glucose POC Glucose 160 H 177 H Lactic Acid Uric Acid Calcium Total Bilirubin AST ALT Total Creatine Kinase CK-MB (CK-2) CK-MB (CK-2) Rel Index Troponin T C-Reactive Protein NT-Pro-B Natriuret Pep 23197 H Total Protein Albumin LDL Cholesterol Direct Urine WBC (Auto) 08/23/18 08/23/18 08/23/18 12:36 14:24 18:05 WBC RBC Hgb Hct MCV RDW Plt Count Seg Neuts % (Manual) Lymphocytes % (Manual) Monocytes % (Manual) Nucleated RBC % Seg Neutrophils # Man Lymphocytes # (Manual) Monocytes # (Manual) PT INR D-Dimer POC ABG pH 7.337 L POC ABG pCO2 POC ABG pO2 145 H Sodium 136 L Potassium 5.2 H Chloride Carbon Dioxide BUN 76 H Creatinine 4.2 H Glucose 158 H POC Glucose 169 H Lactic Acid Uric Acid Calcium 8.1 L Total Bilirubin AST ALT Total Creatine Kinase CK-MB (CK-2) CK-MB (CK-2) Rel Index Troponin T C-Reactive Protein NT-Pro-B Natriuret Pep Total Protein Albumin LDL Cholesterol Direct Urine WBC (Auto) 08/23/18 08/23/18 08/24/18 22:43 23:42 05:16 WBC RBC Hgb Hct MCV RDW Plt Count Seg Neuts % (Manual) Lymphocytes % (Manual) Monocytes % (Manual) Nucleated RBC % Seg Neutrophils # Man Lymphocytes # (Manual) Monocytes # (Manual) PT INR D-Dimer POC ABG pH POC ABG pCO2 POC ABG pO2 Sodium 136 L Potassium 5.3 H 5.2 H Chloride 97.9 L Carbon Dioxide BUN 80 H 86 H Creatinine 4.0 H 4.3 H Glucose 164 H 202 H POC Glucose 183 H Lactic Acid Uric Acid Calcium 7.9 L Total Bilirubin AST ALT Total Creatine Kinase CK-MB (CK-2) CK-MB (CK-2) Rel Index Troponin T C-Reactive Protein NT-Pro-B Natriuret Pep Total Protein Albumin LDL Cholesterol Direct Urine WBC (Auto) 08/24/18 08/24/18 08/24/18 05:21 05:29 10:10 WBC RBC 2.47 L Hgb 7.5 L Hct 23.3 L MCV RDW 17.5 H Plt Count 118 L Seg Neuts % (Manual) 92.0 H Lymphocytes % (Manual) 2.0 L Monocytes % (Manual) Nucleated RBC % Seg Neutrophils # Man 8.8 H Lymphocytes # (Manual) 0.2 L Monocytes # (Manual) PT INR D-Dimer POC ABG pH 7.243 L POC ABG pCO2 56.8 H POC ABG pO2 Sodium Potassium Chloride Carbon Dioxide BUN Creatinine Glucose POC Glucose 209 H Lactic Acid Uric Acid Calcium Total Bilirubin AST ALT Total Creatine Kinase CK-MB (CK-2) CK-MB (CK-2) Rel Index Troponin T C-Reactive Protein NT-Pro-B Natriuret Pep Total Protein Albumin LDL Cholesterol Direct Urine WBC (Auto) 08/24/18 08/24/18 08/24/18 10:10 11:19 13:41 WBC RBC Hgb Hct MCV RDW Plt Count Seg Neuts % (Manual) Lymphocytes % (Manual) Monocytes % (Manual) Nucleated RBC % Seg Neutrophils # Man Lymphocytes # (Manual) Monocytes # (Manual) PT INR D-Dimer 1978.25 H POC ABG pH POC ABG pCO2 POC ABG pO2 Sodium Potassium Chloride Carbon Dioxide BUN Creatinine Glucose POC Glucose 212 H Lactic Acid Uric Acid Calcium Total Bilirubin AST ALT Total Creatine Kinase CK-MB (CK-2) CK-MB (CK-2) Rel Index Troponin T C-Reactive Protein NT-Pro-B Natriuret Pep 50121 H Total Protein Albumin LDL Cholesterol Direct Urine WBC (Auto) 08/24/18 08/24/18 08/24/18 13:41 14:27 17:23 WBC RBC Hgb Hct MCV RDW Plt Count Seg Neuts % (Manual) Lymphocytes % (Manual) Monocytes % (Manual) Nucleated RBC % Seg Neutrophils # Man Lymphocytes # (Manual) Monocytes # (Manual) PT INR D-Dimer POC ABG pH POC ABG pCO2 POC ABG pO2 Sodium 136 L Potassium 5.1 H Chloride 97.8 L Carbon Dioxide BUN 90 H Creatinine 4.1 H Glucose 157 H POC Glucose 155 H Lactic Acid Uric Acid Calcium 8.0 L Total Bilirubin AST ALT Total Creatine Kinase CK-MB (CK-2) CK-MB (CK-2) Rel Index Troponin T C-Reactive Protein 9.00 H NT-Pro-B Natriuret Pep Total Protein Albumin LDL Cholesterol Direct Urine WBC (Auto) 08/25/18 08/25/18 08/25/18 00:38 05:22 05:57 WBC RBC Hgb Hct MCV RDW Plt Count Seg Neuts % (Manual) Lymphocytes % (Manual) Monocytes % (Manual) Nucleated RBC % Seg Neutrophils # Man Lymphocytes # (Manual) Monocytes # (Manual) PT INR D-Dimer POC ABG pH 7.238 L POC ABG pCO2 58.2 H POC ABG pO2 Sodium Potassium 5.4 H Chloride Carbon Dioxide BUN 98 H Creatinine 4.3 H Glucose 217 H POC Glucose 176 H Lactic Acid Uric Acid Calcium 8.3 L Total Bilirubin AST ALT Total Creatine Kinase CK-MB (CK-2) CK-MB (CK-2) Rel Index Troponin T C-Reactive Protein NT-Pro-B Natriuret Pep 49506 H Total Protein Albumin LDL Cholesterol Direct Urine WBC (Auto) 08/25/18 08/25/18 08/25/18 06:56 08:59 11:38 WBC RBC Hgb Hct MCV RDW Plt Count Seg Neuts % (Manual) Lymphocytes % (Manual) Monocytes % (Manual) Nucleated RBC % Seg Neutrophils # Man Lymphocytes # (Manual) Monocytes # (Manual) PT INR D-Dimer POC ABG pH 7.348 L POC ABG pCO2 48.6 H POC ABG pO2 Sodium Potassium Chloride Carbon Dioxide BUN Creatinine Glucose POC Glucose 247 H 235 H Lactic Acid Uric Acid Calcium Total Bilirubin AST ALT Total Creatine Kinase CK-MB (CK-2) CK-MB (CK-2) Rel Index Troponin T C-Reactive Protein NT-Pro-B Natriuret Pep Total Protein Albumin LDL Cholesterol Direct Urine WBC (Auto) 08/25/18 08/25/18 08/25/18 12:29 16:43 16:43 WBC 14.7 H RBC 2.90 L Hgb 8.9 L Hct 27.4 L MCV 95 H RDW 17.3 H Plt Count 119 L Seg Neuts % (Manual) 94.0 H Lymphocytes % (Manual) 2.0 L Monocytes % (Manual) Nucleated RBC % Seg Neutrophils # Man 13.8 H Lymphocytes # (Manual) 0.3 L Monocytes # (Manual) PT 15.6 H INR 1.27 H D-Dimer POC ABG pH POC ABG pCO2 POC ABG pO2 Sodium Potassium Chloride Carbon Dioxide BUN Creatinine Glucose POC Glucose 237 H Lactic Acid Uric Acid Calcium Total Bilirubin AST ALT Total Creatine Kinase CK-MB (CK-2) CK-MB (CK-2) Rel Index Troponin T C-Reactive Protein NT-Pro-B Natriuret Pep Total Protein Albumin LDL Cholesterol Direct Urine WBC (Auto) 08/25/18 08/26/18 08/26/18 17:22 00:16 04:56 WBC RBC Hgb Hct MCV RDW Plt Count Seg Neuts % (Manual) Lymphocytes % (Manual) Monocytes % (Manual) Nucleated RBC % Seg Neutrophils # Man Lymphocytes # (Manual) Monocytes # (Manual) PT INR D-Dimer POC ABG pH POC ABG pCO2 45.2 H POC ABG pO2 Sodium Potassium Chloride Carbon Dioxide BUN Creatinine Glucose POC Glucose 200 H 180 H Lactic Acid Uric Acid Calcium Total Bilirubin AST ALT Total Creatine Kinase CK-MB (CK-2) CK-MB (CK-2) Rel Index Troponin T C-Reactive Protein NT-Pro-B Natriuret Pep Total Protein Albumin LDL Cholesterol Direct Urine WBC (Auto) 08/26/18 08/26/18 08/26/18 05:53 06:20 08:48 WBC RBC Hgb Hct MCV RDW Plt Count Seg Neuts % (Manual) Lymphocytes % (Manual) Monocytes % (Manual) Nucleated RBC % Seg Neutrophils # Man Lymphocytes # (Manual) Monocytes # (Manual) PT INR D-Dimer POC ABG pH POC ABG pCO2 POC ABG pO2 Sodium Potassium Chloride Carbon Dioxide BUN 106 H Creatinine 3.9 H Glucose 137 H POC Glucose 131 H 126 H Lactic Acid Uric Acid Calcium 8.1 L Total Bilirubin AST ALT Total Creatine Kinase CK-MB (CK-2) CK-MB (CK-2) Rel Index Troponin T C-Reactive Protein NT-Pro-B Natriuret Pep > 88036 H Total Protein Albumin LDL Cholesterol Direct Urine WBC (Auto) 08/26/18 08/26/18 08/26/18 11:39 17:33 18:02 WBC RBC Hgb Hct MCV RDW Plt Count Seg Neuts % (Manual) Lymphocytes % (Manual) Monocytes % (Manual) Nucleated RBC % Seg Neutrophils # Man Lymphocytes # (Manual) Monocytes # (Manual) PT INR D-Dimer POC ABG pH POC ABG pCO2 POC ABG pO2 58 L Sodium Potassium Chloride Carbon Dioxide BUN Creatinine Glucose POC Glucose 156 H 173 H Lactic Acid Uric Acid Calcium Total Bilirubin AST ALT Total Creatine Kinase CK-MB (CK-2) CK-MB (CK-2) Rel Index Troponin T C-Reactive Protein NT-Pro-B Natriuret Pep Total Protein Albumin LDL Cholesterol Direct Urine WBC (Auto) 08/26/18 08/27/18 08/27/18 23:12 04:59 11:51 WBC RBC Hgb Hct MCV RDW Plt Count Seg Neuts % (Manual) Lymphocytes % (Manual) Monocytes % (Manual) Nucleated RBC % Seg Neutrophils # Man Lymphocytes # (Manual) Monocytes # (Manual) PT INR D-Dimer POC ABG pH 7.563 H POC ABG pCO2 < 30 L POC ABG pO2 69 L Sodium Potassium Chloride Carbon Dioxide BUN Creatinine Glucose POC Glucose 130 H 107 H Lactic Acid Uric Acid Calcium Total Bilirubin AST ALT Total Creatine Kinase CK-MB (CK-2) CK-MB (CK-2) Rel Index Troponin T C-Reactive Protein NT-Pro-B Natriuret Pep Total Protein Albumin LDL Cholesterol Direct Urine WBC (Auto) 08/27/18 08/27/18 08/27/18 11:58 11:58 11:58 WBC RBC 2.66 L Hgb 8.1 L Hct 24.7 L MCV RDW 16.7 H Plt Count Seg Neuts % (Manual) Lymphocytes % (Manual) Monocytes % (Manual) Nucleated RBC % Seg Neutrophils # Man Lymphocytes # (Manual) Monocytes # (Manual) PT INR D-Dimer POC ABG pH POC ABG pCO2 POC ABG pO2 Sodium Potassium Chloride Carbon Dioxide BUN 71 H Creatinine 2.9 H Glucose POC Glucose Lactic Acid Uric Acid Calcium 7.6 L Total Bilirubin AST ALT Total Creatine Kinase CK-MB (CK-2) CK-MB (CK-2) Rel Index Troponin T C-Reactive Protein NT-Pro-B Natriuret Pep > 07004 H Total Protein 6.1 L Albumin 2.4 L LDL Cholesterol Direct Urine WBC (Auto) 08/28/18 08/28/18 08/28/18 04:38 04:49 04:49 WBC RBC 2.65 L Hgb 8.3 L Hct 25.3 L MCV 96 H RDW 17.3 H Plt Count 83 L Seg Neuts % (Manual) Lymphocytes % (Manual) Monocytes % (Manual) Nucleated RBC % Seg Neutrophils # Man Lymphocytes # (Manual) Monocytes # (Manual) PT INR D-Dimer POC ABG pH POC ABG pCO2 POC ABG pO2 112 H Sodium Potassium Chloride Carbon Dioxide BUN Creatinine Glucose POC Glucose Lactic Acid Uric Acid Calcium Total Bilirubin AST ALT Total Creatine Kinase CK-MB (CK-2) CK-MB (CK-2) Rel Index Troponin T C-Reactive Protein NT-Pro-B Natriuret Pep > 07945 H Total Protein Albumin LDL Cholesterol Direct Urine WBC (Auto) 08/28/18 08/28/18 08/29/18 04:49 14:24 00:11 WBC RBC Hgb Hct MCV RDW Plt Count Seg Neuts % (Manual) Lymphocytes % (Manual) Monocytes % (Manual) Nucleated RBC % Seg Neutrophils # Man Lymphocytes # (Manual) Monocytes # (Manual) PT INR D-Dimer POC ABG pH 7.278 L POC ABG pCO2 57.9 H POC ABG pO2 79 L Sodium Potassium Chloride Carbon Dioxide BUN 69 H Creatinine 2.4 H Glucose POC Glucose 171 H Lactic Acid Uric Acid Calcium 7.7 L Total Bilirubin AST ALT Total Creatine Kinase CK-MB (CK-2) CK-MB (CK-2) Rel Index Troponin T C-Reactive Protein NT-Pro-B Natriuret Pep Total Protein 5.4 L Albumin 2.2 L LDL Cholesterol Direct Urine WBC (Auto) 08/29/18 08/29/18 08/29/18 04:39 05:35 05:35 WBC 13.6 H RBC 3.09 L Hgb 9.4 L Hct 29.5 L MCV 96 H RDW 17.9 H Plt Count 127 L Seg Neuts % (Manual) Lymphocytes % (Manual) Monocytes % (Manual) Nucleated RBC % Seg Neutrophils # Man Lymphocytes # (Manual) Monocytes # (Manual) PT INR D-Dimer POC ABG pH 7.312 L POC ABG pCO2 57.6 H POC ABG pO2 79 L Sodium Potassium Chloride Carbon Dioxide BUN 42 H Creatinine 1.9 H Glucose 107 H POC Glucose Lactic Acid Uric Acid Calcium Total Bilirubin AST ALT Total Creatine Kinase CK-MB (CK-2) CK-MB (CK-2) Rel Index Troponin T C-Reactive Protein NT-Pro-B Natriuret Pep Total Protein Albumin LDL Cholesterol Direct Urine WBC (Auto) 08/29/18 08/29/18 08/29/18 05:48 11:37 15:32 WBC RBC Hgb Hct MCV RDW Plt Count Seg Neuts % (Manual) Lymphocytes % (Manual) Monocytes % (Manual) Nucleated RBC % Seg Neutrophils # Man Lymphocytes # (Manual) Monocytes # (Manual) PT INR D-Dimer POC ABG pH POC ABG pCO2 47.0 H POC ABG pO2 78 L Sodium Potassium Chloride Carbon Dioxide BUN Creatinine Glucose POC Glucose 114 H 116 H Lactic Acid Uric Acid Calcium Total Bilirubin AST ALT Total Creatine Kinase CK-MB (CK-2) CK-MB (CK-2) Rel Index Troponin T C-Reactive Protein NT-Pro-B Natriuret Pep Total Protein Albumin LDL Cholesterol Direct Urine WBC (Auto) 08/29/18 08/30/18 08/30/18 17:28 00:17 04:41 WBC RBC Hgb Hct MCV RDW Plt Count Seg Neuts % (Manual) Lymphocytes % (Manual) Monocytes % (Manual) Nucleated RBC % Seg Neutrophils # Man Lymphocytes # (Manual) Monocytes # (Manual) PT INR D-Dimer POC ABG pH POC ABG pCO2 48.1 H POC ABG pO2 Sodium Potassium Chloride Carbon Dioxide BUN Creatinine Glucose POC Glucose 174 H 132 H Lactic Acid Uric Acid Calcium Total Bilirubin AST ALT Total Creatine Kinase CK-MB (CK-2) CK-MB (CK-2) Rel Index Troponin T C-Reactive Protein NT-Pro-B Natriuret Pep Total Protein Albumin LDL Cholesterol Direct Urine WBC (Auto) 08/30/18 08/30/18 08/30/18 05:17 05:34 06:10 WBC RBC 2.68 L Hgb 8.2 L Hct 25.6 L MCV 96 H RDW 17.2 H Plt Count 118 L Seg Neuts % (Manual) Lymphocytes % (Manual) Monocytes % (Manual) Nucleated RBC % Seg Neutrophils # Man Lymphocytes # (Manual) Monocytes # (Manual) PT INR D-Dimer POC ABG pH POC ABG pCO2 POC ABG pO2 Sodium Potassium Chloride Carbon Dioxide BUN 54 H Creatinine 2.4 H Glucose 120 H POC Glucose 141 H Lactic Acid Uric Acid Calcium Total Bilirubin AST ALT Total Creatine Kinase CK-MB (CK-2) CK-MB (CK-2) Rel Index Troponin T C-Reactive Protein NT-Pro-B Natriuret Pep Total Protein Albumin LDL Cholesterol Direct Urine WBC (Auto) 08/30/18 08/30/18 08/30/18 13:11 18:11 23:55 WBC RBC Hgb Hct MCV RDW Plt Count Seg Neuts % (Manual) Lymphocytes % (Manual) Monocytes % (Manual) Nucleated RBC % Seg Neutrophils # Man Lymphocytes # (Manual) Monocytes # (Manual) PT INR D-Dimer POC ABG pH POC ABG pCO2 POC ABG pO2 Sodium Potassium Chloride Carbon Dioxide BUN Creatinine Glucose POC Glucose 167 H 144 H 144 H Lactic Acid Uric Acid Calcium Total Bilirubin AST ALT Total Creatine Kinase CK-MB (CK-2) CK-MB (CK-2) Rel Index Troponin T C-Reactive Protein NT-Pro-B Natriuret Pep Total Protein Albumin LDL Cholesterol Direct Urine WBC (Auto) 08/31/18 08/31/18 08/31/18 05:07 05:07 05:44 WBC RBC 2.62 L Hgb 8.1 L Hct 25.0 L MCV 96 H RDW 17.5 H Plt Count 128 L Seg Neuts % (Manual) Lymphocytes % (Manual) Monocytes % (Manual) Nucleated RBC % Seg Neutrophils # Man Lymphocytes # (Manual) Monocytes # (Manual) PT INR D-Dimer POC ABG pH POC ABG pCO2 POC ABG pO2 Sodium Potassium Chloride Carbon Dioxide BUN 58 H Creatinine 2.3 H Glucose 103 H POC Glucose 109 H Lactic Acid Uric Acid Calcium Total Bilirubin AST ALT Total Creatine Kinase CK-MB (CK-2) CK-MB (CK-2) Rel Index Troponin T C-Reactive Protein NT-Pro-B Natriuret Pep Total Protein Albumin LDL Cholesterol Direct Urine WBC (Auto) 08/31/18 08/31/18 08/31/18 11:26 13:54 19:05 WBC RBC Hgb Hct MCV RDW Plt Count Seg Neuts % (Manual) Lymphocytes % (Manual) Monocytes % (Manual) Nucleated RBC % Seg Neutrophils # Man Lymphocytes # (Manual) Monocytes # (Manual) PT INR D-Dimer POC ABG pH POC ABG pCO2 POC ABG pO2 Sodium Potassium Chloride Carbon Dioxide BUN Creatinine Glucose POC Glucose 117 H 186 H Lactic Acid Uric Acid 9.6 H Calcium Total Bilirubin AST ALT Total Creatine Kinase CK-MB (CK-2) CK-MB (CK-2) Rel Index Troponin T C-Reactive Protein NT-Pro-B Natriuret Pep Total Protein Albumin LDL Cholesterol Direct Urine WBC (Auto) 08/31/18 09/01/18 09/01/18 23:50 06:27 09:21 WBC RBC 2.74 L Hgb 8.6 L Hct 25.8 L MCV RDW 17.3 H Plt Count Seg Neuts % (Manual) Lymphocytes % (Manual) Monocytes % (Manual) Nucleated RBC % Seg Neutrophils # Man Lymphocytes # (Manual) Monocytes # (Manual) PT INR D-Dimer POC ABG pH POC ABG pCO2 POC ABG pO2 Sodium Potassium Chloride Carbon Dioxide BUN Creatinine Glucose POC Glucose 141 H 62 L Lactic Acid Uric Acid Calcium Total Bilirubin AST ALT Total Creatine Kinase CK-MB (CK-2) CK-MB (CK-2) Rel Index Troponin T C-Reactive Protein NT-Pro-B Natriuret Pep Total Protein Albumin LDL Cholesterol Direct Urine WBC (Auto) 09/01/18 09/01/18 09/01/18 09:21 12:27 17:51 WBC RBC Hgb Hct MCV RDW Plt Count Seg Neuts % (Manual) Lymphocytes % (Manual) Monocytes % (Manual) Nucleated RBC % Seg Neutrophils # Man Lymphocytes # (Manual) Monocytes # (Manual) PT INR D-Dimer POC ABG pH POC ABG pCO2 POC ABG pO2 Sodium Potassium 3.0 L D Chloride 109.8 H Carbon Dioxide BUN 45 H Creatinine 1.7 H Glucose POC Glucose 106 H 108 H Lactic Acid Uric Acid Calcium 7.1 L D Total Bilirubin AST ALT Total Creatine Kinase CK-MB (CK-2) CK-MB (CK-2) Rel Index Troponin T C-Reactive Protein NT-Pro-B Natriuret Pep Total Protein Albumin LDL Cholesterol Direct Urine WBC (Auto) 09/02/18 09/02/18 09/02/18 05:16 05:16 12:01 WBC RBC 2.60 L Hgb 8.1 L Hct 24.8 L MCV 95 H RDW 17.1 H Plt Count Seg Neuts % (Manual) Lymphocytes % (Manual) Monocytes % (Manual) Nucleated RBC % Seg Neutrophils # Man Lymphocytes # (Manual) Monocytes # (Manual) PT INR D-Dimer POC ABG pH POC ABG pCO2 POC ABG pO2 Sodium Potassium Chloride Carbon Dioxide BUN 49 H Creatinine 1.8 H Glucose 107 H POC Glucose 124 H Lactic Acid Uric Acid Calcium 8.1 L Total Bilirubin AST ALT Total Creatine Kinase CK-MB (CK-2) CK-MB (CK-2) Rel Index Troponin T C-Reactive Protein NT-Pro-B Natriuret Pep Total Protein Albumin LDL Cholesterol Direct Urine WBC (Auto) 09/02/18 09/02/18 09/03/18 18:38 23:12 08:22 WBC RBC Hgb Hct MCV RDW Plt Count Seg Neuts % (Manual) Lymphocytes % (Manual) Monocytes % (Manual) Nucleated RBC % Seg Neutrophils # Man Lymphocytes # (Manual) Monocytes # (Manual) PT INR D-Dimer POC ABG pH POC ABG pCO2 POC ABG pO2 Sodium Potassium Chloride Carbon Dioxide BUN Creatinine Glucose POC Glucose 164 H 128 H 115 H Lactic Acid Uric Acid Calcium Total Bilirubin AST ALT Total Creatine Kinase CK-MB (CK-2) CK-MB (CK-2) Rel Index Troponin T C-Reactive Protein NT-Pro-B Natriuret Pep Total Protein Albumin LDL Cholesterol Direct Urine WBC (Auto) 09/03/18 09/03/18 09/03/18 11:48 16:37 20:48 WBC RBC Hgb Hct MCV RDW Plt Count Seg Neuts % (Manual) Lymphocytes % (Manual) Monocytes % (Manual) Nucleated RBC % Seg Neutrophils # Man Lymphocytes # (Manual) Monocytes # (Manual) PT INR D-Dimer POC ABG pH POC ABG pCO2 POC ABG pO2 Sodium Potassium Chloride Carbon Dioxide BUN Creatinine Glucose POC Glucose 203 H 146 H 150 H Lactic Acid Uric Acid Calcium Total Bilirubin AST ALT Total Creatine Kinase CK-MB (CK-2) CK-MB (CK-2) Rel Index Troponin T C-Reactive Protein NT-Pro-B Natriuret Pep Total Protein Albumin LDL Cholesterol Direct Urine WBC (Auto) 09/04/18 09/04/18 09/04/18 08:29 12:08 13:32 WBC RBC Hgb Hct MCV RDW Plt Count Seg Neuts % (Manual) Lymphocytes % (Manual) Monocytes % (Manual) Nucleated RBC % Seg Neutrophils # Man Lymphocytes # (Manual) Monocytes # (Manual) PT INR D-Dimer POC ABG pH POC ABG pCO2 POC ABG pO2 Sodium 136 L Potassium Chloride Carbon Dioxide BUN 42 H Creatinine 1.6 H Glucose 180 H POC Glucose 129 H 149 H Lactic Acid Uric Acid Calcium Total Bilirubin AST ALT Total Creatine Kinase CK-MB (CK-2) CK-MB (CK-2) Rel Index Troponin T C-Reactive Protein NT-Pro-B Natriuret Pep Total Protein Albumin LDL Cholesterol Direct Urine WBC (Auto) 09/04/18 09/05/18 09/05/18 16:33 07:03 07:03 WBC RBC 2.92 L Hgb 9.1 L Hct 27.4 L MCV RDW 17.3 H Plt Count Seg Neuts % (Manual) 81.0 H Lymphocytes % (Manual) 7.0 L Monocytes % (Manual) 8.0 H Nucleated RBC % Seg Neutrophils # Man Lymphocytes # (Manual) 0.5 L Monocytes # (Manual) PT INR D-Dimer POC ABG pH POC ABG pCO2 POC ABG pO2 Sodium Potassium Chloride Carbon Dioxide BUN 40 H Creatinine Glucose 153 H POC Glucose 165 H Lactic Acid Uric Acid Calcium Total Bilirubin AST ALT Total Creatine Kinase CK-MB (CK-2) CK-MB (CK-2) Rel Index Troponin T C-Reactive Protein NT-Pro-B Natriuret Pep Total Protein Albumin LDL Cholesterol Direct Urine WBC (Auto) 09/05/18 09/05/18 08:00 11:51 WBC RBC Hgb Hct MCV RDW Plt Count Seg Neuts % (Manual) Lymphocytes % (Manual) Monocytes % (Manual) Nucleated RBC % Seg Neutrophils # Man Lymphocytes # (Manual) Monocytes # (Manual) PT INR D-Dimer POC ABG pH POC ABG pCO2 POC ABG pO2 Sodium Potassium Chloride Carbon Dioxide BUN Creatinine Glucose POC Glucose 146 H 207 H Lactic Acid Uric Acid Calcium Total Bilirubin AST ALT Total Creatine Kinase CK-MB (CK-2) CK-MB (CK-2) Rel Index Troponin T C-Reactive Protein NT-Pro-B Natriuret Pep Total Protein Albumin LDL Cholesterol Direct Urine WBC (Auto) CT scan - chest: report reviewed, image reviewed Additional Studies: CT of the chest with out Contrast done on 09/05/18 IMPRESSION: Mild cardiomegaly. Bibasilar atelectatic changes. Small to trace bilateral pleural effusions. Bilateral nondisplaced anterior rib fractures. Cirrhosis and ascites. Allied health notes reviewed: nursing
--- NOTE | 2018-09-05 19:45 | Progress Note ---
Assessment and Plan Assessment and plan: #1 acute on chronic respiratory failure continue O2 nebulizers. Improving. Patient able to not be short of breath resting comfortably in place. #2 acute kidney injury stage III. Off hemodialysis now. Page 3 acute COPD exacerbation. We'll continue nebulizers antibiotics O2 continuously. #3 pneumonia may be gram-negative nini continue current antibiotics per ID. #5. Sepsis resolved fever curve normal. Leukocytosis resolved. Pulseless electrical activity status post cardiorespiratory arrest. Patient stabilized. Started on beta renetta and aspirin. Supportive care. #6 seizure disorder EEG Normal 7 morbid obesity History Interval history: Her present hospital course unremarkable. Patient's at bedside. States he is not in pain still feels real weak. Since 73-year-old with history of hypertension and chronic kidney disease chronic respiratory failure on 2 L O2 intubated and extubated. Developed pulseless electrical activity. And received medical cold. She had totally weak but tolerating days well improving. Hospitalist Physical - Constitutional Vitals: Temp Pulse Resp BP Pulse Ox 97.5 F L 108 H 18 160/69 95 09/05/18 17:27 09/05/18 10:00 09/05/18 17:27 09/05/18 17:27 09/05/18 10:00 General appearance: Present: mild distress, other (intubated, chronically ill appearing) - EENT Eyes: Present: PERRL, EOM intact ENT: hearing intact, clear oral mucosa, oropharyngeal erythema, poor dentition, no dentition normal, no thrush - Neck Neck: Present: supple, normal ROM - Respiratory Respiratory effort: normal Respiratory: bilateral: diminished, rales - Cardiovascular Rhythm: regular - Extremities Extremities: no ischemia, pulses intact, pulses symmetrical, Full ROM Extremity abnormal: edema Peripheral Pulses: within normal limits - Abdominal General gastrointestinal: non-tender, non-distended, normal bowel sounds - Psychiatric Psychiatric: appropriate mood/affect, memory intact - Neurologic Neurologic: CNII-XII intact, moves all extremities Results - Labs CBC & Chem 7: 09/05/18 07:03 09/05/18 07:03 Labs: Laboratory Last Values WBC 6.7 K/mm3 (4.5-11.0) 09/05/18 07:03 RBC 2.92 M/mm3 (3.65-5.03) L 09/05/18 07:03 Hgb 9.1 gm/dl (11.8-15.2) L 09/05/18 07:03 Hct 27.4 % (35.5-45.6) L 09/05/18 07:03 MCV 94 fl (84-94) 09/05/18 07:03 MCH 31 pg (28-32) 09/05/18 07:03 MCHC 33 % (32-34) 09/05/18 07:03 RDW 17.3 % (13.2-15.2) H 09/05/18 07:03 Plt Count 167 K/mm3 (140-440) 09/05/18 07:03 Lymph % (Auto) [employer] 08/25/18 16:43 [place] % (Auto) [employer] 09/05/18 07:03 Eos % (Auto) [employer] 08/25/18 16:43 Baso % (Auto) [employer] 08/25/18 16:43 Lymph # [employer] 08/25/18 16:43 [place] # [employer] 08/25/18 16:43 Eos # [employer] 08/25/18 16:43 Baso # [employer] 08/25/18 16:43 Add Manual Diff Complete 09/05/18 07:03 Total Counted 100 09/05/18 07:03 Seg Neutrophils % [employer] 08/25/18 16:43 Seg Neuts % (Manual) 81.0 % (40.0-70.0) H 09/05/18 07:03 1.0 % 09/05/18 07:03 7.0 % (13.4-35.0) L 09/05/18 07:03 Reactive Lymphs % (Man) 0 % 09/05/18 07:03 8.0 % (0.0-7.3) H 09/05/18 07:03 3.0 % (0.0-4.3) 09/05/18 07:03 0 % (0.0-1.8) 09/05/18 07:03 0 % 09/05/18 07:03 0 % 09/05/18 07:03 0 % 09/05/18 07:03 0 % 09/05/18 07:03 Nucleated RBC % Not Reportable 09/05/18 07:03 Seg Neutrophils # [employer] 08/25/18 16:43 Seg Neutrophils # Man 5.4 K/mm3 (1.8-7.7) 09/05/18 07:03 Band Neutrophils # 0.1 K/mm3 09/05/18 07:03 0.5 K/mm3 (1.2-5.4) L 09/05/18 07:03 Abs React Lymphs (Man) 0.0 K/mm3 09/05/18 07:03 0.5 K/mm3 (0.0-0.8) 09/05/18 07:03 0.2 K/mm3 (0.0-0.4) 09/05/18 07:03 0.0 K/mm3 (0.0-0.1) 09/05/18 07:03 0.0 K/mm3 09/05/18 07:03 0.0 K/mm3 09/05/18 07:03 0.0 K/mm3 09/05/18 07:03 Blast Cells # 0.0 K/mm3 09/05/18 07:03 WBC Morphology Not Reportable 09/05/18 07:03 Hypersegmented Neuts Not Reportable 09/05/18 07:03 Hyposegmented Neuts Not Reportable 09/05/18 07:03 Hypogranular Neuts Not Reportable 09/05/18 07:03 Not Reportable 09/05/18 07:03 Not Reportable 09/05/18 07:03 Not Reportable 09/05/18 07:03 Not Reportable 09/05/18 07:03 Not Reportable 09/05/18 07:03 Not Reportable 09/05/18 07:03 Consistent w auto 09/05/18 07:03 Not Reportable 09/05/18 07:03 Plt Clumps, EDTA Not Reportable 09/05/18 07:03 Not Reportable 09/05/18 07:03 Not Reportable 09/05/18 07:03 Not Reportable 09/05/18 07:03 Plt Morphology Comment Not Reportable 09/05/18 07:03 RBC Morphology Not Reportable 09/05/18 07:03 Dimorphic RBCs Not Reportable 09/05/18 07:03 Not Reportable 09/05/18 07:03 Not Reportable 09/05/18 07:03 Not Reportable 09/05/18 07:03 1+ 09/05/18 07:03 Not Reportable 09/05/18 07:03 Few 09/05/18 07:03 Not Reportable 09/05/18 07:03 Not Reportable 09/05/18 07:03 Not Reportable 09/05/18 07:03 Not Reportable 09/05/18 07:03 Not Reportable 09/05/18 07:03 Not Reportable 09/05/18 07:03 Not Reportable 09/05/18 07:03 Not Reportable 09/05/18 07:03 Not Reportable 09/05/18 07:03 Not Reportable 09/05/18 07:03 Not Reportable 09/05/18 07:03 Not Reportable 09/05/18 07:03 Not Reportable 09/05/18 07:03 Acanthocytes (Spur) Not Reportable 09/05/18 07:03 Rouleaux Not Reportable 09/05/18 07:03 Not Reportable 09/05/18 07:03 Not Reportable 09/05/18 07:03 Not Reportable 09/05/18 07:03 Not Reportable 09/05/18 07:03 Hem Pathologist Commnt No 09/05/18 07:03 PT 15.6 Sec. (12.2-14.9) H 08/25/18 16:43 INR 1.27 (0.87-1.13) H 08/25/18 16:43 APTT 30.8 Sec. (24.2-36.6) 08/21/18 04:42 1978.25 ng/mlDDU (0-234) H 08/24/18 13:41 POC ABG pH 7.410 (7.35-7.45) 08/30/18 13:35 POC ABG pCO2 41.4 (35-45) 08/30/18 13:35 POC ABG pO2 99 (80-105) 08/30/18 13:35 POC ABG HCO3 26.2 (22-26 mml/L) 08/30/18 13:35 POC ABG Total CO2 27 (23-27mmol/L) 08/30/18 13:35 POC ABG O2 Sat 98 08/30/18 13:35 POC ABG Base Excess 2 ((-2) - (+3)mmol/L) 08/30/18 13:35 30 % 08/30/18 13:35 Sodium 138 mmol/L (137-145) 09/05/18 07:03 Potassium 4.5 mmol/L (3.6-5.0) 09/05/18 07:03 Chloride 102.6 mmol/L (98-107) 09/05/18 07:03 Carbon Dioxide 24 mmol/L (22-30) 09/05/18 07:03 16 mmol/L 09/05/18 07:03 BUN 40 mg/dL (9-20) H 09/05/18 07:03 1.5 mg/dL (0.8-1.5) 09/05/18 07:03 Estimated GFR 46 ml/min 09/05/18 07:03 27 % 09/05/18 07:03 Glucose 153 mg/dL (75-100) H 09/05/18 07:03 POC Glucose 97 (70-105) 09/05/18 16:30 317 Mosm/kg 08/31/18 13:54 Lactic Acid 1.30 mmol/L (0.7-2.0) 08/21/18 20:50 9.6 mg/dL (3.5-7.6) H 08/31/18 13:54 Calcium 8.6 mg/dL (8.4-10.2) 09/05/18 07:03 Magnesium 2.00 mg/dL (1.7-2.3) 09/02/18 05:16 0.60 mg/dL (0.1-1.2) 08/28/18 04:49 AST 27 units/L (5-40) 08/28/18 04:49 ALT 12 units/L (7-56) 08/28/18 04:49 87 units/L (35-129) 08/28/18 04:49 222 units/L (55-170) H 08/21/18 10:45 CK-MB (CK-2) 9.2 ng/mL (0.0-4.0) H 08/21/18 10:45 CK-MB (CK-2) Rel Index 4.1 (0-4) H 08/21/18 10:45 0.044 ng/mL (0.00-0.029) H D 08/21/18 10:45 9.00 mg/dL (0.00-1.30) H 08/24/18 13:41 NT-Pro-B Natriuret Pep > 84636 pg/mL (0-900) H 08/28/18 04:49 5.4 g/dL (6.3-8.2) L 08/28/18 04:49 2.2 g/dL (3.9-5) L 08/28/18 04:49 0.7 % 08/28/18 04:49 Triglycerides 87 mg/dL (2-149) 08/21/18 04:42 Cholesterol 93 mg/dL (50-199) 08/21/18 04:42 44 mg/dL (50-130) L 08/21/18 04:42 41 mg/dL (40-59) 08/21/18 04:42 2.26 % 08/21/18 04:42 Yellow (Yellow) 08/21/18 15:03 Slightly-cloudy (Clear) 08/21/18 15:03 5.0 (5.0-7.0) 08/21/18 15:03 Ur Specific [place] 1.015 (1.003-1.030) 08/21/18 15:03 30 mg/dl mg/dL (Negative) 08/21/18 15:03 Neg mg/dL (Negative) 08/21/18 15:03 Neg mg/dL (Negative) 08/21/18 15:03 Mod (Negative) 08/21/18 15:03 Neg (Negative) 08/21/18 15:03 Neg (Negative) 08/21/18 15:03 < 2.0 mg/dL (<2.0) 08/21/18 15:03 Ur Leukocyte Esterase Tr (Negative) 08/21/18 15:03 13.0 /HPF (0.0-6.0) H 08/21/18 15:03 15.0 /HPF (0.0-6.0) 08/21/18 15:03 U Epithel Cells (Auto) 1.0 /HPF (0-13.0) 08/21/18 15:03 1+ /HPF (Negative) 08/21/18 15:03 Few /HPF 08/21/18 15:03 Random Vancomycin 10.5 ug/mL (0-40.0) 08/26/18 05:53 Levetiracetam 25.7 mcg/mL (12.0-46.0) 08/26/18 13:42 Hepatitis A IgM Ab Non-reactive (NonReactive) 08/27/18 23:25 Hep Bs Antigen Non-reactive (Negative) 08/27/18 23:25 Hep B Core IgM Ab Non-reactive (NonReactive) 08/27/18 23:25 Non-reactive (NonReactive) 08/27/18 23:25 Active Medications - Current Medications Current Medications: Generic Name Dose Route Start Last Admin Trade Name Freq PRN Reason Stop Dose Admin Acetaminophen 650 mg 08/21/18 06:31 09/01/18 21:12 Tylenol PO 650 mg Q4H PRN Administration Pain MILD(1-3)/Fever >100.5/COOK Albuterol/Ipratropium 1 ampul 08/24/18 20:00 09/05/18 07:19 Duoneb *Not For Prn Use* IH 1 ampul BIDRT LUIS Administration Lipase/Protease/Amylase 1 each 08/26/18 12:07 Pancream[place] 10,500 Unit FEEDTUBE PRN PRN For Clogged Feeding Tube Arformoterol Tartrate 15 mcg 08/24/18 20:00 09/05/18 07:20 Brovana Nebu IH 15 mcg Q12HRT LUIS Administration Bisacodyl 10 mg 09/02/18 12:42 Dulcolax NE QDAY PRN Constipation Budesonide 0.5 mg 08/24/18 20:00 09/05/18 07:20 Pulmicort IH 0.5 mg Q12HRT LUIS Administration Dextrose 50 ml 08/21/18 06:48 D50w (25gm) Syringe IV PRN PRN Hypoglycemia Heparin Sodium (Porcine) 5,000 unit 08/22/18 10:00 09/05/18 12:03 Heparin SUB-Q 5,000 unit Q12HR LUIS Administration Hydralazine HCl 25 mg 08/30/18 22:00 09/05/18 14:03 Apresoline PO 25 mg Q8HR LUIS Administration Insulin Human Lispro 0 unit 08/31/18 22:00 09/05/18 17:20 Humalog SUB-Q Not Given ACHS LUIS Protocol Levetiracetam 750 mg 09/04/18 22:00 09/05/18 11:59 Keppra PO 750 mg BID LUIS Administration Metoclopramide HCl 10 mg 09/05/18 18:35 Reglan IV Q6H PRN Nausea And Vomiting Morphine Sulfate 2 mg 08/26/18 14:24 08/30/18 01:40 Morphine IV 2 mg Q6H PRN Administration Pain, Moderate (4-6) Ondansetron HCl 4 mg 08/21/18 06:31 Zofran IV Q8H PRN Nausea And Vomiting Sodium Chloride 10 ml 08/21/18 10:00 09/05/18 12:00 Sodium Chloride Flush Syringe 10 Ml IV 10 ml BID LUIS Administration Spironolactone 25 mg 09/03/18 11:00 09/05/18 11:59 Aldactone PO 25 mg QDAY LUIS Administration Nutrition/Malnutrition Assess - Dietary Evaluation Nutrition/Malnutrition Findings: Nutrition Notes Start: 08/21/18 16:58 Freq: Status: Active Protocol: Document 09/05/18 14:18 TUAN (Rec: 09/05/18 14:30 TUAN [id number] [email or web address]) Nutrition Notes Initial or Follow up Reassessment Current Diagnosis Heart Failure Other Pertinent Diagnosis COPD exacerbation, pneu, s/p cardiac arrest Current Diet Cardiac/Consistent CHO with chopped meats + Glucerna daily Labs/Tests Reviewed Pertinent Medications Reviewed Height 5 ft 6 in Weight 146.3 kg [place] Body Weight (kg) 64.54 BMI 52.0 Subjective/Other Information PT has consumed 75% of meals since last assessment. He drinks ONS daily as well. Percent of energy/protein needs met: 97% energy 70% pro (includes ONS) Burn Absent Trauma Absent #1 Nutrition Diagnosis Inadequate oral intake As Evidenced by Signs and Symptoms PO intake meeting >50% energy and pro needs Diagnosis Progress(for reassessment Improved documentation) Is patient on ventilator? No Is Patient Ambulatory and/or Out of Bed No REE-([facility]-confined to bed) 2592.060 Kcal/Kg value to use for calculation 12 Approximate Energy Requirements Using 1756 kcal/Kg Additional Notes Pro needs 1-1.2g/kg adjBW: 105-127g/day Fluid needs 1ml/kcal Nutrition Intervention Change Diet Order: Continue current Add Supplement/Snack (indicate name/kcal Glucerna Chocolate, [place] /protein ) 1 daily Provides kCal: 220 Provides Protein (gm) 10 Goal #1 Meet at least 75% of kcal and protein needs via PO intakes Follow-Up By: 09/12/18 Additional Comments F/U: stable intakes, wt
[2018-09-06] MEDS: APRESOLINE PO SCH ×3 (05:51→21:06)
[2018-09-06 07:16] LABS: Mean Corpuscular HGB Conc 33 % (32-34); Mean Corpuscular Hemoglobin 31 pg (28-32); Mean Corpuscular Volume 93 fl (84-94); Platelet Count 130 K/mm3 (140-440); Red Cell Distribution Width 17.4 % (13.2-15.2)
[2018-09-06 07:40] LABS: Calcium 8.5 mg/dL (8.4-10.2)
[2018-09-06] MEDS: PULMICORT IH SCH ×2 (07:53→20:25)
[2018-09-06] MEDS: BROVANA NEBU IH SCH ×2 (07:53→20:25)
[2018-09-06] MEDS: DUONEB *Not for PRN Use IH SCH ×2 (07:53→20:28)
[2018-09-06] MEDS: HumaLOG SUB-Q SCH ×4 (08:00→21:06)
[2018-09-06 08:29] LABS: Total Cells Counted 100
[2018-09-06 08:30] LABS: Anisocytosis 1+; Macrocytosis 1+; Platelet Estimate Consistent w Auto
--- NOTE | 2018-09-06 10:25 | Progress Note ---
Assessment and Plan Impression: * KHRIS on ckd * s/p Cardiopulmonary arrest with ROSC * Acute on chronic hypoxemic respiratory failure on MVS * Lactic acidosis * Acute metabolic/respiratory acidosis * Sepsis probably secondary to aspiration PNA * COPD * Acute metabolic-toxic encephalopathy * NSTEMI * Type 2 DM Plan: * antibiotics per primary team * daily lytes * renal diet * Renal function improving . His Vas-Cath has been removed. * No further indication for dialysis at this time. * Continue to monitor SCr and UOP . Approximately 1000 mL of urine recorded yesterday. * He currently has indwelling [place] catheter in place. * Strict I/O * Avoid nephrotoxins Subjective Date of service: 09/06/18 Principal diagnosis: s/p cardiac arrest; severe sepsis; acute hypoxemic- hypercapnic resp failure Interval history: Patient is comfortable today. Denies any shortness of breath. Currently on oxygen with nasal cannula at 3 L/m. Objective - Vital Signs Vital signs: Vital Signs - 12hr 09/05/18 09/05/18 09/05/18 22:40 22:50 22:52 Temperature 98.3 F Pulse Rate 95 H 91 H Pulse Rate [ Anterior Bilateral Throughout] Pulse Rate [ 107 H Apical] Pulse Rate [ Posterior Bilateral Throughout] Respiratory 20 18 20 Rate Respiratory Rate [Anterior Bilateral Throughout] Respiratory Rate [Posterior Bilateral Throughout] Blood Pressure 174/66 O2 Sat by Pulse 92 95 97 Oximetry 09/06/18 09/06/18 09/06/18 02:50 03:29 05:51 Temperature 97.7 F Pulse Rate 101 H 101 H Pulse Rate [ Anterior Bilateral Throughout] Pulse Rate [ Apical] Pulse Rate [ Posterior Bilateral Throughout] Respiratory 20 Rate Respiratory Rate [Anterior Bilateral Throughout] Respiratory Rate [Posterior Bilateral Throughout] Blood Pressure 143/63 160/57 160/57 O2 Sat by Pulse 99 Oximetry 09/06/18 09/06/18 09/06/18 07:15 07:54 08:30 Temperature 97.5 F L Pulse Rate Pulse Rate [ 93 H Anterior Bilateral Throughout] Pulse Rate [ Apical] Pulse Rate [ 84 Posterior Bilateral Throughout] Respiratory 18 Rate Respiratory 20 Rate [Anterior Bilateral Throughout] Respiratory 18 Rate [Posterior Bilateral Throughout] Blood Pressure 146/87 O2 Sat by Pulse Oximetry 09/06/18 09:48 Temperature Pulse Rate Pulse Rate [ Anterior Bilateral Throughout] Pulse Rate [ Apical] Pulse Rate [ Posterior Bilateral Throughout] Respiratory Rate Respiratory Rate [Anterior Bilateral Throughout] Respiratory Rate [Posterior Bilateral Throughout] Blood Pressure O2 Sat by Pulse 97 Oximetry - General Appearance General appearance: well-developed, well-nourished, appears stated age, obese EENT: PERRL, mucous membranes moist Neck: no JVD, no thyromegaly, no carotid bruit, supple Respiratory: Present: Clear to Ascultation Cardiology: regular, normal heart rate Gastrointestinal: normal, normoactive bowel sounds Integumentary: other (no edema) - Lab 09/06/18 06:42 09/06/18 06:42 Most recent lab results Calcium 8.5 mg/dL (8.4-10.2) 09/06/18 06:42 Magnesium 2.00 mg/dL (1.7-2.3) 09/02/18 05:16 Medications & Allergies - Medications Allergies/Adverse Reactions: Allergies Penicillins Allergy (Verified 08/21/18 04:49) Unknown -cillins Allergy (Uncoded 08/21/18 04:49) Unknown Home Medications: Home Medications Medication Instructions Recorded Confirmed Last Taken Type AtorvaSTATin [Lipitor] 10 mg PO QHS 08/21/18 08/21/18 Unknown History Ferrous Sulfate [Feosol] 325 mg PO QDAY 08/21/18 08/21/18 Unknown History Melatonin [Melatonin 10MG CAP] 10 mg PO DAILY 08/21/18 08/21/18 Unknown History NIFEdipine [Nifedipine ER] 60 mg PO BID 08/21/18 08/21/18 Unknown History Sennosides Tab [Senokot] 1 tab PO 08/21/18 08/21/18 Unknown History Tamsulosin [Flomax] 2 cap PO 08/21/18 08/21/18 Unknown History Torsemide [Demadex] 20 mg PO DAILY 08/21/18 08/21/18 Unknown History Venlafaxine HCl [Venlafaxin ER] 75 mg PO QDAY 08/21/18 08/21/18 Unknown History buPROPion [Wellbutrin] 100 mg PO DAILY 08/21/18 08/21/18 Unknown History Active Medications: Generic Name Dose Route Start Last Admin Trade Name Freq PRN Reason Stop Dose Admin Acetaminophen 650 mg 08/21/18 06:31 09/01/18 21:12 Tylenol PO 650 mg Q4H PRN Administration Pain MILD(1-3)/Fever >100.5/COOK Albuterol/Ipratropium 1 ampul 08/24/18 20:00 09/06/18 07:53 Duoneb *Not For Prn Use* IH 1 ampul BIDRT LUIS Administration Lipase/Protease/Amylase 1 each 08/26/18 12:07 [place] 10,500 Unit FEEDTUBE PRN PRN For Clogged Feeding Tube Arformoterol Tartrate 15 mcg 08/24/18 20:00 09/06/18 07:53 Brovana Nebu IH 15 mcg Q12HRT LUIS Administration Bisacodyl 10 mg 09/02/18 12:42 Dulcolax [place] QDAY PRN Constipation Budesonide 0.5 mg 08/24/18 20:00 09/06/18 07:53 Pulmicort IH 0.5 mg Q12HRT LUIS Administration Dextrose 50 ml 08/21/18 06:48 D50w (25gm) Syringe IV PRN PRN Hypoglycemia Heparin Sodium (Porcine) 5,000 unit 08/22/18 10:00 09/05/18 22:06 Heparin SUB-Q 5,000 unit Q12HR LUIS Administration Hydralazine HCl 25 mg 08/30/18 22:00 09/06/18 05:51 Apresoline PO 25 mg Q8HR LUIS Administration Insulin Human Lispro 0 unit 08/31/18 22:00 09/05/18 22:07 Humalog SUB-Q Not Given [facility] Protocol Levetiracetam 750 mg 09/04/18 22:00 09/05/18 22:06 Keppra PO 750 mg BID LUSI Administration Metoclopramide HCl 10 mg 09/05/18 18:35 Reglan IV Q6H PRN Nausea And Vomiting Morphine Sulfate 2 mg 08/26/18 14:24 08/30/18 01:40 Morphine IV 2 mg Q6H PRN Administration Pain, Moderate (4-6) Ondansetron HCl 4 mg 08/21/18 06:31 Zofran IV Q8H PRN Nausea And Vomiting Sodium Chloride 10 ml 08/21/18 10:00 09/05/18 22:07 Sodium Chloride Flush Syringe 10 Ml IV 10 ml BID LUIS Administration Spironolactone 25 mg 09/03/18 11:00 09/05/18 11:59 Aldactone PO 25 mg QDAY LUIS Administration
[2018-09-06] MEDS: KEPPRA PO SCH ×2 (12:00→21:04)
[2018-09-06] MEDS: REGLAN IV PRN (12:00)
[2018-09-06] MEDS: ALDACTONE PO SCH (12:01)
[2018-09-06] MEDS: HEPARIN SUB-Q SCH ×2 (12:03→21:04)
[2018-09-06] MEDS: SODIUM CHLORIDE FLUSH SYRINGE 10 ML IV SCH ×2 (12:05→21:06)
--- NOTE | 2018-09-06 13:29 | Progress Note ---
Assessment and Plan Pt noted to be in AFib on tele with HR currently 90s, AFib with SVR overnight with HR low 28bpm while pt sleeping, no pauses. AFib appears to be a new diagnosis for pt. Pt does not appear to be receiving any AV christy blocking agents. Agree with hydralazine for BP management. Encourage compliance with CPAP and cont to monitor for bradyarrhythmias on telemetry. Will not initiate systemic AC in regards to AFib at this time in setting of anemia and thrombocytopenia. The patient has been seen in conjunction with Dr. Smith who agrees with the assessment and plan of care. - Patient Problems (1) Cardiac arrest Current Visit: Yes Status: Acute (2) Atrial fibrillation Current Visit: Yes Status: Acute (3) Acute HFrEF (heart failure with reduced ejection fraction) Current Visit: Yes Status: Resolved (4) Cardiomyopathy Current Visit: Yes Status: Chronic (5) Acute on chronic respiratory failure Current Visit: Yes Status: Acute (6) Acute renal failure Current Visit: Yes Status: Acute (7) Pneumonia Current Visit: Yes Status: Acute (8) Sepsis Current Visit: Yes Status: Suspected (9) Anemia Current Visit: Yes Status: Acute (10) Thrombocytopenia Current Visit: Yes Status: Acute (11) Elevated troponin Current Visit: Yes Status: Acute Subjective Date of service: 09/06/18 Principal diagnosis: s/p cardiac arrest; severe sepsis; acute hypoxemic- hypercapnic resp failure Interval history: pt resting in bed, appears comfortable. no current complaints. in AFib on tele with HR currently 90s, pt noted to have AFib with SVR overnight with HR low 28bpm. Objective Last Vital Signs Temp 97.5 F L 09/06/18 08:30 Pulse 99 H 09/06/18 12:01 Resp 18 09/06/18 08:30 BP 146/87 09/06/18 08:30 Pulse Ox 97 09/06/18 09:48 - Physical Examination General: No Apparent Distress HEENT: Positive: PERRL Neck: Positive: neck supple Cardiac: Positive: irregularly irregular, S1/S2 Lungs: Positive: Decreased Breath Sounds Neuro: Positive: Grossly Intact Abdomen: Positive: Soft Skin: Positive: Clear. Negative: Rash Musculoskeletal: Decreased Range of Motion Extremities: Present: Other (Generalized edema). Absent: edema - Labs and Meds CBC 09/06/18 Range/Units 06:42 WBC 4.9 (4.5-11.0) K/mm3 RBC 2.90 L (3.65-5.03) M/mm3 Hgb 9.0 L (11.8-15.2) gm/dl Hct 27.0 L (35.5-45.6) % Plt Count 130 L (140-440) K/mm3 Comprehensive Metabolic Panel 09/06/18 Range/Units 06:42 Sodium 136 L (137-145) mmol/L Potassium 4.5 (3.6-5.0) mmol/L Chloride 101.6 (98-107) mmol/L Carbon Dioxide 25 (22-30) mmol/L BUN 39 H (9-20) mg/dL Creatinine 1.5 (0.8-1.5) mg/dL Glucose 106 H (75-100) mg/dL Calcium 8.5 (8.4-10.2) mg/dL - Imaging and Cardiology EKG: image reviewed Echo: report reviewed ( EF 40-45%, LV mod dilated, pseudonormalization, RV severely dilated, RA mod dilated, mod TR, RVSP 47mmHg. ) - Telemetry EKG Rhythm: Atrial Fibrillation - EKG Sinus rhythms and dysrhythmias: sinus rhythm AV and intraventricular conduction: right bundle branch block - Allied health notes Allied health notes reviewed: nursing
--- NOTE | 2018-09-06 15:00 | Progress Note ---
Assessment and Plan Patient is alert and resting on room air at this time. Not using oxygen as recommended. CPAP standby at the room. O2 saturation is 97%. No acute respiratory distress. Patient is afebrile. No leukocytosis. BP 146/87. - Patient Problems (1) COPD (chronic obstructive pulmonary disease) Current Visit: Yes Status: Acute Plan to address problem: CPAP with 4 litres O2. 4 litres O2 when he is not on BIPAP. Albuterol and atrovent aeorosol treatment q6 hours PRN for shortness of breath. Brovanna/ budesonide aeorsol treatment q 12 hours continue subq heparin. Patient is on reglan. (2) Acute on chronic respiratory failure Current Visit: Yes Status: Acute Plan to address problem: CPAP with 4 litres O2. 4 litres O2 when she is on BIPAP. Albuterol and atrovent aeorosol treatment q6 hours PRN for shortness of breath. Brovanna/ budesonide aeorsol treatment q 12 hours continue subq heparin. Patient is on reglan. (3) Acute HFrEF (heart failure with reduced ejection fraction) Current Visit: Yes Status: Resolved Plan to address problem: Management as per cardiology. (4) Acute renal failure Current Visit: Yes Status: Acute Plan to address problem: Management as per Nephrology. (5) Altered mental status Current Visit: Yes Status: Acute Plan to address problem: Management as per primary care and neurology. (6) Bacteremia due to coagulase-negative Staphylococcus Current Visit: Yes Status: Acute Plan to address problem: management as per infectious diseases. (7) Anemia Current Visit: Yes Status: Acute Plan to address problem: Management as per primary care. Subjective Date of service: 09/06/18 Principal diagnosis: s/p cardiac arrest; severe sepsis; acute hypoxemic-hypercapnic resp failure Interval history: Patient is alert and resting on room air at this time. Not using oxygen as recommended. CPAP standby at the room. O2 saturation is 97%. No acute respiratory distress. Patient is afebrile. No leukocytosis. BP 146/87. Objective Vital Signs - 12hr 09/06/18 09/06/18 09/06/18 03:29 05:51 07:15 Temperature 97.7 F Pulse Rate 101 H 101 H Pulse Rate [ 93 H Anterior Bilateral Throughout] Pulse Rate [ Posterior Bilateral Throughout] Respiratory 20 Rate Respiratory 20 Rate [Anterior Bilateral Throughout] Respiratory Rate [Posterior Bilateral Throughout] Blood Pressure 160/57 160/57 O2 Sat by Pulse 99 Oximetry 09/06/18 09/06/18 09/06/18 07:54 08:30 09:48 Temperature 97.5 F L Pulse Rate Pulse Rate [ Anterior Bilateral Throughout] Pulse Rate [ 84 Posterior Bilateral Throughout] Respiratory 18 Rate Respiratory Rate [Anterior Bilateral Throughout] Respiratory 18 Rate [Posterior Bilateral Throughout] Blood Pressure 146/87 O2 Sat by Pulse 97 Oximetry 09/06/18 12:01 Temperature Pulse Rate 99 H Pulse Rate [ Anterior Bilateral Throughout] Pulse Rate [ Posterior Bilateral Throughout] Respiratory Rate Respiratory Rate [Anterior Bilateral Throughout] Respiratory Rate [Posterior Bilateral Throughout] Blood Pressure O2 Sat by Pulse Oximetry Constitutional: no acute distress, alert Eyes: non-icteric ENT: oropharynx moist, other (extubated) Neck: supple, no JVD, other (short neck) Effort: mildly labored Ascultation: Bilateral: diminished breath sounds, rhonchi (improved overall) Percussion: Bilateral: not dull Cardiovascular: regular rate and rhythm, other (S1,S2, no murmurs, no gallops or rubs) Gastrointestinal: normoactive bowel sounds, soft, non-tender, non-distended, other (Madison catheter in place, minimal urine tea colored) Integumentary: normal Extremities: no cyanosis, no edema, pink and warm, pulses normal, no ischemia or petechiae Neurologic: normal mental status, non-focal exam (grossly), pupils equal and round, CN II-XII normal Psychiatric: mood appropriate, affect normal CBC and BMP: 09/06/18 06:42 09/06/18 06:42 ABG, PT/INR, D-dimer: ABG POC ABG pH 7.410 (7.35-7.45) 08/30/18 13:35 POC ABG pCO2 41.4 (35-45) 08/30/18 13:35 POC ABG pO2 99 (80-105) 08/30/18 13:35 POC ABG HCO3 26.2 (22-26 mml/L) 08/30/18 13:35 POC ABG Total CO2 27 (23-27mmol/L) 08/30/18 13:35 POC ABG O2 Sat 98 08/30/18 13:35 PT/INR, D-dimer PT 15.6 Sec. (12.2-14.9) H 08/25/18 16:43 INR 1.27 (0.87-1.13) H 08/25/18 16:43 1978.25 ng/mlDDU (0-234) H 08/24/18 13:41 Abnormal lab findings: Abnormal Labs 08/21/18 08/21/18 08/21/18 04:42 04:42 04:42 WBC 19.1 H RBC 2.49 L Hgb 7.7 L Hct 24.5 L MCV 98 H RDW 17.7 H Plt Count Seg Neuts % (Manual) 84.0 H Lymphocytes % (Manual) 7.0 L Monocytes % (Manual) 9.0 H Basophils % (Manual) Nucleated RBC % Seg Neutrophils # Man 16.0 H Lymphocytes # (Manual) Monocytes # (Manual) 1.7 H PT 20.1 H INR 1.76 H D-Dimer POC ABG pH POC ABG pCO2 POC ABG pO2 Sodium Potassium Chloride Carbon Dioxide BUN Creatinine Glucose POC Glucose Lactic Acid Uric Acid Calcium Total Bilirubin AST ALT Total Creatine Kinase CK-MB (CK-2) CK-MB (CK-2) Rel Index Troponin T 0.032 H C-Reactive Protein NT-Pro-B Natriuret Pep Total Protein Albumin LDL Cholesterol Direct 44 L Urine WBC (Auto) 08/21/18 08/21/18 08/21/18 04:42 04:42 04:42 WBC RBC Hgb Hct MCV RDW Plt Count Seg Neuts % (Manual) Lymphocytes % (Manual) Monocytes % (Manual) Basophils % (Manual) Nucleated RBC % Seg Neutrophils # Man Lymphocytes # (Manual) Monocytes # (Manual) PT INR D-Dimer POC ABG pH POC ABG pCO2 POC ABG pO2 Sodium Potassium 6.0 H Chloride Carbon Dioxide 15 L BUN 57 H Creatinine 4.3 H Glucose 111 H POC Glucose Lactic Acid 5.80 H* Uric Acid Calcium Total Bilirubin 1.80 H AST 212 H ALT 94 H Total Creatine Kinase CK-MB (CK-2) CK-MB (CK-2) Rel Index Troponin T C-Reactive Protein NT-Pro-B Natriuret Pep 42987 H Total Protein Albumin 3.2 L LDL Cholesterol Direct Urine WBC (Auto) 08/21/18 08/21/18 08/21/18 05:08 05:58 05:58 WBC RBC Hgb Hct MCV RDW Plt Count Seg Neuts % (Manual) Lymphocytes % (Manual) Monocytes % (Manual) Basophils % (Manual) Nucleated RBC % Seg Neutrophils # Man Lymphocytes # (Manual) Monocytes # (Manual) PT INR D-Dimer POC ABG pH 7.164 L POC ABG pCO2 46.3 H POC ABG pO2 229 H Sodium Potassium Chloride Carbon Dioxide BUN Creatinine Glucose POC Glucose Lactic Acid 5.10 H* Uric Acid Calcium Total Bilirubin AST ALT Total Creatine Kinase CK-MB (CK-2) CK-MB (CK-2) Rel Index Troponin T 0.035 H C-Reactive Protein NT-Pro-B Natriuret Pep Total Protein Albumin LDL Cholesterol Direct Urine WBC (Auto) 08/21/18 08/21/18 08/21/18 06:45 06:45 06:53 WBC RBC Hgb Hct MCV RDW Plt Count Seg Neuts % (Manual) Lymphocytes % (Manual) Monocytes % (Manual) Basophils % (Manual) Nucleated RBC % Seg Neutrophils # Man Lymphocytes # (Manual) Monocytes # (Manual) PT INR D-Dimer POC ABG pH 7.160 L POC ABG pCO2 46.8 H POC ABG pO2 Sodium Potassium Chloride Carbon Dioxide BUN Creatinine Glucose POC Glucose Lactic Acid 4.70 H* Uric Acid Calcium Total Bilirubin AST ALT Total Creatine Kinase 234 H CK-MB (CK-2) 9.1 H CK-MB (CK-2) Rel Index Troponin T 0.032 H C-Reactive Protein NT-Pro-B Natriuret Pep Total Protein Albumin LDL Cholesterol Direct Urine WBC (Auto) 08/21/18 08/21/18 08/21/18 10:43 10:43 10:45 WBC RBC Hgb Hct MCV RDW Plt Count Seg Neuts % (Manual) Lymphocytes % (Manual) Monocytes % (Manual) Basophils % (Manual) Nucleated RBC % Seg Neutrophils # Man Lymphocytes # (Manual) Monocytes # (Manual) PT INR D-Dimer POC ABG pH POC ABG pCO2 POC ABG pO2 Sodium Potassium Chloride Carbon Dioxide 17 L BUN 59 H Creatinine 4.2 H Glucose POC Glucose Lactic Acid 3.70 H* Uric Acid Calcium Total Bilirubin AST ALT Total Creatine Kinase 222 H CK-MB (CK-2) 9.2 H CK-MB (CK-2) Rel Index 4.1 H Troponin T 0.044 H D C-Reactive Protein NT-Pro-B Natriuret Pep Total Protein Albumin LDL Cholesterol Direct Urine WBC (Auto) 08/21/18 08/21/18 08/21/18 11:38 12:33 15:03 WBC RBC Hgb Hct MCV RDW Plt Count Seg Neuts % (Manual) Lymphocytes % (Manual) Monocytes % (Manual) Basophils % (Manual) Nucleated RBC % Seg Neutrophils # Man Lymphocytes # (Manual) Monocytes # (Manual) PT INR D-Dimer POC ABG pH 7.250 L POC ABG pCO2 POC ABG pO2 121 H Sodium Potassium Chloride Carbon Dioxide BUN Creatinine Glucose POC Glucose 129 H Lactic Acid Uric Acid Calcium Total Bilirubin AST ALT Total Creatine Kinase CK-MB (CK-2) CK-MB (CK-2) Rel Index Troponin T C-Reactive Protein NT-Pro-B Natriuret Pep Total Protein Albumin LDL Cholesterol Direct Urine WBC (Auto) 13.0 H 08/21/18 08/22/18 08/22/18 15:47 00:01 04:27 WBC RBC Hgb Hct MCV RDW Plt Count Seg Neuts % (Manual) Lymphocytes % (Manual) Monocytes % (Manual) Basophils % (Manual) Nucleated RBC % Seg Neutrophils # Man Lymphocytes # (Manual) Monocytes # (Manual) PT INR D-Dimer POC ABG pH 7.457 H POC ABG pCO2 POC ABG pO2 117 H Sodium Potassium Chloride Carbon Dioxide BUN Creatinine Glucose POC Glucose 211 H Lactic Acid 2.70 H* Uric Acid Calcium Total Bilirubin AST ALT Total Creatine Kinase CK-MB (CK-2) CK-MB (CK-2) Rel Index Troponin T C-Reactive Protein NT-Pro-B Natriuret Pep Total Protein Albumin LDL Cholesterol Direct Urine WBC (Auto) 08/22/18 08/22/18 08/22/18 05:46 06:10 06:10 WBC RBC 2.27 L Hgb 7.0 L Hct 21.2 L MCV RDW 16.8 H Plt Count 129 L Seg Neuts % (Manual) 95.0 H Lymphocytes % (Manual) 1.0 L Monocytes % (Manual) Basophils % (Manual) Nucleated RBC % 1.0 H Seg Neutrophils # Man 7.8 H Lymphocytes # (Manual) 0.1 L Monocytes # (Manual) PT INR D-Dimer POC ABG pH POC ABG pCO2 POC ABG pO2 Sodium Potassium Chloride Carbon Dioxide 20 L BUN 63 H Creatinine 3.9 H Glucose 205 H POC Glucose 223 H Lactic Acid Uric Acid Calcium Total Bilirubin AST ALT Total Creatine Kinase CK-MB (CK-2) CK-MB (CK-2) Rel Index Troponin T C-Reactive Protein NT-Pro-B Natriuret Pep Total Protein Albumin LDL Cholesterol Direct Urine WBC (Auto) 08/22/18 08/22/18 08/22/18 06:10 12:57 16:21 WBC RBC Hgb Hct MCV RDW Plt Count Seg Neuts % (Manual) Lymphocytes % (Manual) Monocytes % (Manual) Basophils % (Manual) Nucleated RBC % Seg Neutrophils # Man Lymphocytes # (Manual) Monocytes # (Manual) PT INR D-Dimer POC ABG pH 7.477 H POC ABG pCO2 POC ABG pO2 Sodium Potassium Chloride Carbon Dioxide BUN Creatinine Glucose POC Glucose 166 H Lactic Acid Uric Acid Calcium Total Bilirubin AST ALT Total Creatine Kinase CK-MB (CK-2) CK-MB (CK-2) Rel Index Troponin T C-Reactive Protein 23.60 H NT-Pro-B Natriuret Pep Total Protein Albumin LDL Cholesterol Direct Urine WBC (Auto) 08/22/18 08/22/18 08/23/18 17:41 23:42 04:38 WBC RBC Hgb Hct MCV RDW Plt Count Seg Neuts % (Manual) Lymphocytes % (Manual) Monocytes % (Manual) Basophils % (Manual) Nucleated RBC % Seg Neutrophils # Man Lymphocytes # (Manual) Monocytes # (Manual) PT INR D-Dimer POC ABG pH 7.249 L POC ABG pCO2 53.5 H POC ABG pO2 73 L Sodium Potassium Chloride Carbon Dioxide BUN Creatinine Glucose POC Glucose 131 H 168 H Lactic Acid Uric Acid Calcium Total Bilirubin AST ALT Total Creatine Kinase CK-MB (CK-2) CK-MB (CK-2) Rel Index Troponin T C-Reactive Protein NT-Pro-B Natriuret Pep Total Protein Albumin LDL Cholesterol Direct Urine WBC (Auto) 08/23/18 08/23/18 08/23/18 04:52 04:52 04:52 WBC RBC 2.39 L Hgb 7.5 L Hct 22.8 L MCV 95 H RDW 17.6 H Plt Count Seg Neuts % (Manual) Lymphocytes % (Manual) Monocytes % (Manual) Basophils % (Manual) Nucleated RBC % Seg Neutrophils # Man Lymphocytes # (Manual) Monocytes # (Manual) PT INR D-Dimer POC ABG pH POC ABG pCO2 POC ABG pO2 Sodium Potassium 5.6 H 5.6 H Chloride Carbon Dioxide 21 L BUN 71 H 72 H Creatinine 4.1 H 4.0 H Glucose 141 H 140 H POC Glucose Lactic Acid Uric Acid Calcium 8.3 L 8.2 L Total Bilirubin AST 247 H ALT 220 H Total Creatine Kinase CK-MB (CK-2) CK-MB (CK-2) Rel Index Troponin T C-Reactive Protein NT-Pro-B Natriuret Pep Total Protein Albumin 2.8 L LDL Cholesterol Direct Urine WBC (Auto) 08/23/18 08/23/18 08/23/18 05:50 08:38 12:21 WBC RBC Hgb Hct MCV RDW Plt Count Seg Neuts % (Manual) Lymphocytes % (Manual) Monocytes % (Manual) Basophils % (Manual) Nucleated RBC % Seg Neutrophils # Man Lymphocytes # (Manual) Monocytes # (Manual) PT INR D-Dimer POC ABG pH POC ABG pCO2 POC ABG pO2 Sodium Potassium Chloride Carbon Dioxide BUN Creatinine Glucose POC Glucose 160 H 177 H Lactic Acid Uric Acid Calcium Total Bilirubin AST ALT Total Creatine Kinase CK-MB (CK-2) CK-MB (CK-2) Rel Index Troponin T C-Reactive Protein NT-Pro-B Natriuret Pep 69038 H Total Protein Albumin LDL Cholesterol Direct Urine WBC (Auto) 08/23/18 08/23/18 08/23/18 12:36 14:24 18:05 WBC RBC Hgb Hct MCV RDW Plt Count Seg Neuts % (Manual) Lymphocytes % (Manual) Monocytes % (Manual) Basophils % (Manual) Nucleated RBC % Seg Neutrophils # Man Lymphocytes # (Manual) Monocytes # (Manual) PT INR D-Dimer POC ABG pH 7.337 L POC ABG pCO2 POC ABG pO2 145 H Sodium 136 L Potassium 5.2 H Chloride Carbon Dioxide BUN 76 H Creatinine 4.2 H Glucose 158 H POC Glucose 169 H Lactic Acid Uric Acid Calcium 8.1 L Total Bilirubin AST ALT Total Creatine Kinase CK-MB (CK-2) CK-MB (CK-2) Rel Index Troponin T C-Reactive Protein NT-Pro-B Natriuret Pep Total Protein Albumin LDL Cholesterol Direct Urine WBC (Auto) 08/23/18 08/23/18 08/24/18 22:43 23:42 05:16 WBC RBC Hgb Hct MCV RDW Plt Count Seg Neuts % (Manual) Lymphocytes % (Manual) Monocytes % (Manual) Basophils % (Manual) Nucleated RBC % Seg Neutrophils # Man Lymphocytes # (Manual) Monocytes # (Manual) PT INR D-Dimer POC ABG pH POC ABG pCO2 POC ABG pO2 Sodium 136 L Potassium 5.3 H 5.2 H Chloride 97.9 L Carbon Dioxide BUN 80 H 86 H Creatinine 4.0 H 4.3 H Glucose 164 H 202 H POC Glucose 183 H Lactic Acid Uric Acid Calcium 7.9 L Total Bilirubin AST ALT Total Creatine Kinase CK-MB (CK-2) CK-MB (CK-2) Rel Index Troponin T C-Reactive Protein NT-Pro-B Natriuret Pep Total Protein Albumin LDL Cholesterol Direct Urine WBC (Auto) 08/24/18 08/24/18 08/24/18 05:21 05:29 10:10 WBC RBC 2.47 L Hgb 7.5 L Hct 23.3 L MCV RDW 17.5 H Plt Count 118 L Seg Neuts % (Manual) 92.0 H Lymphocytes % (Manual) 2.0 L Monocytes % (Manual) Basophils % (Manual) Nucleated RBC % Seg Neutrophils # Man 8.8 H Lymphocytes # (Manual) 0.2 L Monocytes # (Manual) PT INR D-Dimer POC ABG pH 7.243 L POC ABG pCO2 56.8 H POC ABG pO2 Sodium Potassium Chloride Carbon Dioxide BUN Creatinine Glucose POC Glucose 209 H Lactic Acid Uric Acid Calcium Total Bilirubin AST ALT Total Creatine Kinase CK-MB (CK-2) CK-MB (CK-2) Rel Index Troponin T C-Reactive Protein NT-Pro-B Natriuret Pep Total Protein Albumin LDL Cholesterol Direct Urine WBC (Auto) 08/24/18 08/24/18 08/24/18 10:10 11:19 13:41 WBC RBC Hgb Hct MCV RDW Plt Count Seg Neuts % (Manual) Lymphocytes % (Manual) Monocytes % (Manual) Basophils % (Manual) Nucleated RBC % Seg Neutrophils # Man Lymphocytes # (Manual) Monocytes # (Manual) PT INR D-Dimer 1978.25 H POC ABG pH POC ABG pCO2 POC ABG pO2 Sodium Potassium Chloride Carbon Dioxide BUN Creatinine Glucose POC Glucose 212 H Lactic Acid Uric Acid Calcium Total Bilirubin AST ALT Total Creatine Kinase CK-MB (CK-2) CK-MB (CK-2) Rel Index Troponin T C-Reactive Protein NT-Pro-B Natriuret Pep 17349 H Total Protein Albumin LDL Cholesterol Direct Urine WBC (Auto) 08/24/18 08/24/18 08/24/18 13:41 14:27 17:23 WBC RBC Hgb Hct MCV RDW Plt Count Seg Neuts % (Manual) Lymphocytes % (Manual) Monocytes % (Manual) Basophils % (Manual) Nucleated RBC % Seg Neutrophils # Man Lymphocytes # (Manual) Monocytes # (Manual) PT INR D-Dimer POC ABG pH POC ABG pCO2 POC ABG pO2 Sodium 136 L Potassium 5.1 H Chloride 97.8 L Carbon Dioxide BUN 90 H Creatinine 4.1 H Glucose 157 H POC Glucose 155 H Lactic Acid Uric Acid Calcium 8.0 L Total Bilirubin AST ALT Total Creatine Kinase CK-MB (CK-2) CK-MB (CK-2) Rel Index Troponin T C-Reactive Protein 9.00 H NT-Pro-B Natriuret Pep Total Protein Albumin LDL Cholesterol Direct Urine WBC (Auto) 08/25/18 08/25/18 08/25/18 00:38 05:22 05:57 WBC RBC Hgb Hct MCV RDW Plt Count Seg Neuts % (Manual) Lymphocytes % (Manual) Monocytes % (Manual) Basophils % (Manual) Nucleated RBC % Seg Neutrophils # Man Lymphocytes # (Manual) Monocytes # (Manual) PT INR D-Dimer POC ABG pH 7.238 L POC ABG pCO2 58.2 H POC ABG pO2 Sodium Potassium 5.4 H Chloride Carbon Dioxide BUN 98 H Creatinine 4.3 H Glucose 217 H POC Glucose 176 H Lactic Acid Uric Acid Calcium 8.3 L Total Bilirubin AST ALT Total Creatine Kinase CK-MB (CK-2) CK-MB (CK-2) Rel Index Troponin T C-Reactive Protein NT-Pro-B Natriuret Pep 72113 H Total Protein Albumin LDL Cholesterol Direct Urine WBC (Auto) 08/25/18 08/25/18 08/25/18 06:56 08:59 11:38 WBC RBC Hgb Hct MCV RDW Plt Count Seg Neuts % (Manual) Lymphocytes % (Manual) Monocytes % (Manual) Basophils % (Manual) Nucleated RBC % Seg Neutrophils # Man Lymphocytes # (Manual) Monocytes # (Manual) PT INR D-Dimer POC ABG pH 7.348 L POC ABG pCO2 48.6 H POC ABG pO2 Sodium Potassium Chloride Carbon Dioxide BUN Creatinine Glucose POC Glucose 247 H 235 H Lactic Acid Uric Acid Calcium Total Bilirubin AST ALT Total Creatine Kinase CK-MB (CK-2) CK-MB (CK-2) Rel Index Troponin T C-Reactive Protein NT-Pro-B Natriuret Pep Total Protein Albumin LDL Cholesterol Direct Urine WBC (Auto) 08/25/18 08/25/18 08/25/18 12:29 16:43 16:43 WBC 14.7 H RBC 2.90 L Hgb 8.9 L Hct 27.4 L MCV 95 H RDW 17.3 H Plt Count 119 L Seg Neuts % (Manual) 94.0 H Lymphocytes % (Manual) 2.0 L Monocytes % (Manual) Basophils % (Manual) Nucleated RBC % Seg Neutrophils # Man 13.8 H Lymphocytes # (Manual) 0.3 L Monocytes # (Manual) PT 15.6 H INR 1.27 H D-Dimer POC ABG pH POC ABG pCO2 POC ABG pO2 Sodium Potassium Chloride Carbon Dioxide BUN Creatinine Glucose POC Glucose 237 H Lactic Acid Uric Acid Calcium Total Bilirubin AST ALT Total Creatine Kinase CK-MB (CK-2) CK-MB (CK-2) Rel Index Troponin T C-Reactive Protein NT-Pro-B Natriuret Pep Total Protein Albumin LDL Cholesterol Direct Urine WBC (Auto) 08/25/18 08/26/18 08/26/18 17:22 00:16 04:56 WBC RBC Hgb Hct MCV RDW Plt Count Seg Neuts % (Manual) Lymphocytes % (Manual) Monocytes % (Manual) Basophils % (Manual) Nucleated RBC % Seg Neutrophils # Man Lymphocytes # (Manual) Monocytes # (Manual) PT INR D-Dimer POC ABG pH POC ABG pCO2 45.2 H POC ABG pO2 Sodium Potassium Chloride Carbon Dioxide BUN Creatinine Glucose POC Glucose 200 H 180 H Lactic Acid Uric Acid Calcium Total Bilirubin AST ALT Total Creatine Kinase CK-MB (CK-2) CK-MB (CK-2) Rel Index Troponin T C-Reactive Protein NT-Pro-B Natriuret Pep Total Protein Albumin LDL Cholesterol Direct Urine WBC (Auto) 08/26/18 08/26/18 08/26/18 05:53 06:20 08:48 WBC RBC Hgb Hct MCV RDW Plt Count Seg Neuts % (Manual) Lymphocytes % (Manual) Monocytes % (Manual) Basophils % (Manual) Nucleated RBC % Seg Neutrophils # Man Lymphocytes # (Manual) Monocytes # (Manual) PT INR D-Dimer POC ABG pH POC ABG pCO2 POC ABG pO2 Sodium Potassium Chloride Carbon Dioxide BUN 106 H Creatinine 3.9 H Glucose 137 H POC Glucose 131 H 126 H Lactic Acid Uric Acid Calcium 8.1 L Total Bilirubin AST ALT Total Creatine Kinase CK-MB (CK-2) CK-MB (CK-2) Rel Index Troponin T C-Reactive Protein NT-Pro-B Natriuret Pep > 53139 H Total Protein Albumin LDL Cholesterol Direct Urine WBC (Auto) 08/26/18 08/26/18 08/26/18 11:39 17:33 18:02 WBC RBC Hgb Hct MCV RDW Plt Count Seg Neuts % (Manual) Lymphocytes % (Manual) Monocytes % (Manual) Basophils % (Manual) Nucleated RBC % Seg Neutrophils # Man Lymphocytes # (Manual) Monocytes # (Manual) PT INR D-Dimer POC ABG pH POC ABG pCO2 POC ABG pO2 58 L Sodium Potassium Chloride Carbon Dioxide BUN Creatinine Glucose POC Glucose 156 H 173 H Lactic Acid Uric Acid Calcium Total Bilirubin AST ALT Total Creatine Kinase CK-MB (CK-2) CK-MB (CK-2) Rel Index Troponin T C-Reactive Protein NT-Pro-B Natriuret Pep Total Protein Albumin LDL Cholesterol Direct Urine WBC (Auto) 08/26/18 08/27/18 08/27/18 23:12 04:59 11:51 WBC RBC Hgb Hct MCV RDW Plt Count Seg Neuts % (Manual) Lymphocytes % (Manual) Monocytes % (Manual) Basophils % (Manual) Nucleated RBC % Seg Neutrophils # Man Lymphocytes # (Manual) Monocytes # (Manual) PT INR D-Dimer POC ABG pH 7.563 H POC ABG pCO2 < 30 L POC ABG pO2 69 L Sodium Potassium Chloride Carbon Dioxide BUN Creatinine Glucose POC Glucose 130 H 107 H Lactic Acid Uric Acid Calcium Total Bilirubin AST ALT Total Creatine Kinase CK-MB (CK-2) CK-MB (CK-2) Rel Index Troponin T C-Reactive Protein NT-Pro-B Natriuret Pep Total Protein Albumin LDL Cholesterol Direct Urine WBC (Auto) 08/27/18 08/27/18 08/27/18 11:58 11:58 11:58 WBC RBC 2.66 L Hgb 8.1 L Hct 24.7 L MCV RDW 16.7 H Plt Count Seg Neuts % (Manual) Lymphocytes % (Manual) Monocytes % (Manual) Basophils % (Manual) Nucleated RBC % Seg Neutrophils # Man Lymphocytes # (Manual) Monocytes # (Manual) PT INR D-Dimer POC ABG pH POC ABG pCO2 POC ABG pO2 Sodium Potassium Chloride Carbon Dioxide BUN 71 H Creatinine 2.9 H Glucose POC Glucose Lactic Acid Uric Acid Calcium 7.6 L Total Bilirubin AST ALT Total Creatine Kinase CK-MB (CK-2) CK-MB (CK-2) Rel Index Troponin T C-Reactive Protein NT-Pro-B Natriuret Pep > 79479 H Total Protein 6.1 L Albumin 2.4 L LDL Cholesterol Direct Urine WBC (Auto) 08/28/18 08/28/18 08/28/18 04:38 04:49 04:49 WBC RBC 2.65 L Hgb 8.3 L Hct 25.3 L MCV 96 H RDW 17.3 H Plt Count 83 L Seg Neuts % (Manual) Lymphocytes % (Manual) Monocytes % (Manual) Basophils % (Manual) Nucleated RBC % Seg Neutrophils # Man Lymphocytes # (Manual) Monocytes # (Manual) PT INR D-Dimer POC ABG pH POC ABG pCO2 POC ABG pO2 112 H Sodium Potassium Chloride Carbon Dioxide BUN Creatinine Glucose POC Glucose Lactic Acid Uric Acid Calcium Total Bilirubin AST ALT Total Creatine Kinase CK-MB (CK-2) CK-MB (CK-2) Rel Index Troponin T C-Reactive Protein NT-Pro-B Natriuret Pep > 94420 H Total Protein Albumin LDL Cholesterol Direct Urine WBC (Auto) 08/28/18 08/28/18 08/29/18 04:49 14:24 00:11 WBC RBC Hgb Hct MCV RDW Plt Count Seg Neuts % (Manual) Lymphocytes % (Manual) Monocytes % (Manual) Basophils % (Manual) Nucleated RBC % Seg Neutrophils # Man Lymphocytes # (Manual) Monocytes # (Manual) PT INR D-Dimer POC ABG pH 7.278 L POC ABG pCO2 57.9 H POC ABG pO2 79 L Sodium Potassium Chloride Carbon Dioxide BUN 69 H Creatinine 2.4 H Glucose POC Glucose 171 H Lactic Acid Uric Acid Calcium 7.7 L Total Bilirubin AST ALT Total Creatine Kinase CK-MB (CK-2) CK-MB (CK-2) Rel Index Troponin T C-Reactive Protein NT-Pro-B Natriuret Pep Total Protein 5.4 L Albumin 2.2 L LDL Cholesterol Direct Urine WBC (Auto) 08/29/18 08/29/18 08/29/18 04:39 05:35 05:35 WBC 13.6 H RBC 3.09 L Hgb 9.4 L Hct 29.5 L MCV 96 H RDW 17.9 H Plt Count 127 L Seg Neuts % (Manual) Lymphocytes % (Manual) Monocytes % (Manual) Basophils % (Manual) Nucleated RBC % Seg Neutrophils # Man Lymphocytes # (Manual) Monocytes # (Manual) PT INR D-Dimer POC ABG pH 7.312 L POC ABG pCO2 57.6 H POC ABG pO2 79 L Sodium Potassium Chloride Carbon Dioxide BUN 42 H Creatinine 1.9 H Glucose 107 H POC Glucose Lactic Acid Uric Acid Calcium Total Bilirubin AST ALT Total Creatine Kinase CK-MB (CK-2) CK-MB (CK-2) Rel Index Troponin T C-Reactive Protein NT-Pro-B Natriuret Pep Total Protein Albumin LDL Cholesterol Direct Urine WBC (Auto) 08/29/18 08/29/18 08/29/18 05:48 11:37 15:32 WBC RBC Hgb Hct MCV RDW Plt Count Seg Neuts % (Manual) Lymphocytes % (Manual) Monocytes % (Manual) Basophils % (Manual) Nucleated RBC % Seg Neutrophils # Man Lymphocytes # (Manual) Monocytes # (Manual) PT INR D-Dimer POC ABG pH POC ABG pCO2 47.0 H POC ABG pO2 78 L Sodium Potassium Chloride Carbon Dioxide BUN Creatinine Glucose POC Glucose 114 H 116 H Lactic Acid Uric Acid Calcium Total Bilirubin AST ALT Total Creatine Kinase CK-MB (CK-2) CK-MB (CK-2) Rel Index Troponin T C-Reactive Protein NT-Pro-B Natriuret Pep Total Protein Albumin LDL Cholesterol Direct Urine WBC (Auto) 08/29/18 08/30/18 08/30/18 17:28 00:17 04:41 WBC RBC Hgb Hct MCV RDW Plt Count Seg Neuts % (Manual) Lymphocytes % (Manual) Monocytes % (Manual) Basophils % (Manual) Nucleated RBC % Seg Neutrophils # Man Lymphocytes # (Manual) Monocytes # (Manual) PT INR D-Dimer POC ABG pH POC ABG pCO2 48.1 H POC ABG pO2 Sodium Potassium Chloride Carbon Dioxide BUN Creatinine Glucose POC Glucose 174 H 132 H Lactic Acid Uric Acid Calcium Total Bilirubin AST ALT Total Creatine Kinase CK-MB (CK-2) CK-MB (CK-2) Rel Index Troponin T C-Reactive Protein NT-Pro-B Natriuret Pep Total Protein Albumin LDL Cholesterol Direct Urine WBC (Auto) 08/30/18 08/30/18 08/30/18 05:17 05:34 06:10 WBC RBC 2.68 L Hgb 8.2 L Hct 25.6 L MCV 96 H RDW 17.2 H Plt Count 118 L Seg Neuts % (Manual) Lymphocytes % (Manual) Monocytes % (Manual) Basophils % (Manual) Nucleated RBC % Seg Neutrophils # Man Lymphocytes # (Manual) Monocytes # (Manual) PT INR D-Dimer POC ABG pH POC ABG pCO2 POC ABG pO2 Sodium Potassium Chloride Carbon Dioxide BUN 54 H Creatinine 2.4 H Glucose 120 H POC Glucose 141 H Lactic Acid Uric Acid Calcium Total Bilirubin AST ALT Total Creatine Kinase CK-MB (CK-2) CK-MB (CK-2) Rel Index Troponin T C-Reactive Protein NT-Pro-B Natriuret Pep Total Protein Albumin LDL Cholesterol Direct Urine WBC (Auto) 08/30/18 08/30/18 08/30/18 13:11 18:11 23:55 WBC RBC Hgb Hct MCV RDW Plt Count Seg Neuts % (Manual) Lymphocytes % (Manual) Monocytes % (Manual) Basophils % (Manual) Nucleated RBC % Seg Neutrophils # Man Lymphocytes # (Manual) Monocytes # (Manual) PT INR D-Dimer POC ABG pH POC ABG pCO2 POC ABG pO2 Sodium Potassium Chloride Carbon Dioxide BUN Creatinine Glucose POC Glucose 167 H 144 H 144 H Lactic Acid Uric Acid Calcium Total Bilirubin AST ALT Total Creatine Kinase CK-MB (CK-2) CK-MB (CK-2) Rel Index Troponin T C-Reactive Protein NT-Pro-B Natriuret Pep Total Protein Albumin LDL Cholesterol Direct Urine WBC (Auto) 08/31/18 08/31/18 08/31/18 05:07 05:07 05:44 WBC RBC 2.62 L Hgb 8.1 L Hct 25.0 L MCV 96 H RDW 17.5 H Plt Count 128 L Seg Neuts % (Manual) Lymphocytes % (Manual) Monocytes % (Manual) Basophils % (Manual) Nucleated RBC % Seg Neutrophils # Man Lymphocytes # (Manual) Monocytes # (Manual) PT INR D-Dimer POC ABG pH POC ABG pCO2 POC ABG pO2 Sodium Potassium Chloride Carbon Dioxide BUN 58 H Creatinine 2.3 H Glucose 103 H POC Glucose 109 H Lactic Acid Uric Acid Calcium Total Bilirubin AST ALT Total Creatine Kinase CK-MB (CK-2) CK-MB (CK-2) Rel Index Troponin T C-Reactive Protein NT-Pro-B Natriuret Pep Total Protein Albumin LDL Cholesterol Direct Urine WBC (Auto) 08/31/18 08/31/18 08/31/18 11:26 13:54 19:05 WBC RBC Hgb Hct MCV RDW Plt Count Seg Neuts % (Manual) Lymphocytes % (Manual) Monocytes % (Manual) Basophils % (Manual) Nucleated RBC % Seg Neutrophils # Man Lymphocytes # (Manual) Monocytes # (Manual) PT INR D-Dimer POC ABG pH POC ABG pCO2 POC ABG pO2 Sodium Potassium Chloride Carbon Dioxide BUN Creatinine Glucose POC Glucose 117 H 186 H Lactic Acid Uric Acid 9.6 H Calcium Total Bilirubin AST ALT Total Creatine Kinase CK-MB (CK-2) CK-MB (CK-2) Rel Index Troponin T C-Reactive Protein NT-Pro-B Natriuret Pep Total Protein Albumin LDL Cholesterol Direct Urine WBC (Auto) 08/31/18 09/01/18 09/01/18 23:50 06:27 09:21 WBC RBC 2.74 L Hgb 8.6 L Hct 25.8 L MCV RDW 17.3 H Plt Count Seg Neuts % (Manual) Lymphocytes % (Manual) Monocytes % (Manual) Basophils % (Manual) Nucleated RBC % Seg Neutrophils # Man Lymphocytes # (Manual) Monocytes # (Manual) PT INR D-Dimer POC ABG pH POC ABG pCO2 POC ABG pO2 Sodium Potassium Chloride Carbon Dioxide BUN Creatinine Glucose POC Glucose 141 H 62 L Lactic Acid Uric Acid Calcium Total Bilirubin AST ALT Total Creatine Kinase CK-MB (CK-2) CK-MB (CK-2) Rel Index Troponin T C-Reactive Protein NT-Pro-B Natriuret Pep Total Protein Albumin LDL Cholesterol Direct Urine WBC (Auto) 09/01/18 09/01/18 09/01/18 09:21 12:27 17:51 WBC RBC Hgb Hct MCV RDW Plt Count Seg Neuts % (Manual) Lymphocytes % (Manual) Monocytes % (Manual) Basophils % (Manual) Nucleated RBC % Seg Neutrophils # Man Lymphocytes # (Manual) Monocytes # (Manual) PT INR D-Dimer POC ABG pH POC ABG pCO2 POC ABG pO2 Sodium Potassium 3.0 L D Chloride 109.8 H Carbon Dioxide BUN 45 H Creatinine 1.7 H Glucose POC Glucose 106 H 108 H Lactic Acid Uric Acid Calcium 7.1 L D Total Bilirubin AST ALT Total Creatine Kinase CK-MB (CK-2) CK-MB (CK-2) Rel Index Troponin T C-Reactive Protein NT-Pro-B Natriuret Pep Total Protein Albumin LDL Cholesterol Direct Urine WBC (Auto) 09/02/18 09/02/18 09/02/18 05:16 05:16 12:01 WBC RBC 2.60 L Hgb 8.1 L Hct 24.8 L MCV 95 H RDW 17.1 H Plt Count Seg Neuts % (Manual) Lymphocytes % (Manual) Monocytes % (Manual) Basophils % (Manual) Nucleated RBC % Seg Neutrophils # Man Lymphocytes # (Manual) Monocytes # (Manual) PT INR D-Dimer POC ABG pH POC ABG pCO2 POC ABG pO2 Sodium Potassium Chloride Carbon Dioxide BUN 49 H Creatinine 1.8 H Glucose 107 H POC Glucose 124 H Lactic Acid Uric Acid Calcium 8.1 L Total Bilirubin AST ALT Total Creatine Kinase CK-MB (CK-2) CK-MB (CK-2) Rel Index Troponin T C-Reactive Protein NT-Pro-B Natriuret Pep Total Protein Albumin LDL Cholesterol Direct Urine WBC (Auto) 09/02/18 09/02/18 09/03/18 18:38 23:12 08:22 WBC RBC Hgb Hct MCV RDW Plt Count Seg Neuts % (Manual) Lymphocytes % (Manual) Monocytes % (Manual) Basophils % (Manual) Nucleated RBC % Seg Neutrophils # Man Lymphocytes # (Manual) Monocytes # (Manual) PT INR D-Dimer POC ABG pH POC ABG pCO2 POC ABG pO2 Sodium Potassium Chloride Carbon Dioxide BUN Creatinine Glucose POC Glucose 164 H 128 H 115 H Lactic Acid Uric Acid Calcium Total Bilirubin AST ALT Total Creatine Kinase CK-MB (CK-2) CK-MB (CK-2) Rel Index Troponin T C-Reactive Protein NT-Pro-B Natriuret Pep Total Protein Albumin LDL Cholesterol Direct Urine WBC (Auto) 09/03/18 09/03/18 09/03/18 11:48 16:37 20:48 WBC RBC Hgb Hct MCV RDW Plt Count Seg Neuts % (Manual) Lymphocytes % (Manual) Monocytes % (Manual) Basophils % (Manual) Nucleated RBC % Seg Neutrophils # Man Lymphocytes # (Manual) Monocytes # (Manual) PT INR D-Dimer POC ABG pH POC ABG pCO2 POC ABG pO2 Sodium Potassium Chloride Carbon Dioxide BUN Creatinine Glucose POC Glucose 203 H 146 H 150 H Lactic Acid Uric Acid Calcium Total Bilirubin AST ALT Total Creatine Kinase CK-MB (CK-2) CK-MB (CK-2) Rel Index Troponin T C-Reactive Protein NT-Pro-B Natriuret Pep Total Protein Albumin LDL Cholesterol Direct Urine WBC (Auto) 09/04/18 09/04/18 09/04/18 08:29 12:08 13:32 WBC RBC Hgb Hct MCV RDW Plt Count Seg Neuts % (Manual) Lymphocytes % (Manual) Monocytes % (Manual) Basophils % (Manual) Nucleated RBC % Seg Neutrophils # Man Lymphocytes # (Manual) Monocytes # (Manual) PT INR D-Dimer POC ABG pH POC ABG pCO2 POC ABG pO2 Sodium 136 L Potassium Chloride Carbon Dioxide BUN 42 H Creatinine 1.6 H Glucose 180 H POC Glucose 129 H 149 H Lactic Acid Uric Acid Calcium Total Bilirubin AST ALT Total Creatine Kinase CK-MB (CK-2) CK-MB (CK-2) Rel Index Troponin T C-Reactive Protein NT-Pro-B Natriuret Pep Total Protein Albumin LDL Cholesterol Direct Urine WBC (Auto) 09/04/18 09/05/18 09/05/18 16:33 07:03 07:03 WBC RBC 2.92 L Hgb 9.1 L Hct 27.4 L MCV RDW 17.3 H Plt Count Seg Neuts % (Manual) 81.0 H Lymphocytes % (Manual) 7.0 L Monocytes % (Manual) 8.0 H Basophils % (Manual) Nucleated RBC % Seg Neutrophils # Man Lymphocytes # (Manual) 0.5 L Monocytes # (Manual) PT INR D-Dimer POC ABG pH POC ABG pCO2 POC ABG pO2 Sodium Potassium Chloride Carbon Dioxide BUN 40 H Creatinine Glucose 153 H POC Glucose 165 H Lactic Acid Uric Acid Calcium Total Bilirubin AST ALT Total Creatine Kinase CK-MB (CK-2) CK-MB (CK-2) Rel Index Troponin T C-Reactive Protein NT-Pro-B Natriuret Pep Total Protein Albumin LDL Cholesterol Direct Urine WBC (Auto) 09/05/18 09/05/18 09/05/18 08:00 11:51 21:20 WBC RBC Hgb Hct MCV RDW Plt Count Seg Neuts % (Manual) Lymphocytes % (Manual) Monocytes % (Manual) Basophils % (Manual) Nucleated RBC % Seg Neutrophils # Man Lymphocytes # (Manual) Monocytes # (Manual) PT INR D-Dimer POC ABG pH POC ABG pCO2 POC ABG pO2 Sodium Potassium Chloride Carbon Dioxide BUN Creatinine Glucose POC Glucose 146 H 207 H 114 H Lactic Acid Uric Acid Calcium Total Bilirubin AST ALT Total Creatine Kinase CK-MB (CK-2) CK-MB (CK-2) Rel Index Troponin T C-Reactive Protein NT-Pro-B Natriuret Pep Total Protein Albumin LDL Cholesterol Direct Urine WBC (Auto) 09/06/18 09/06/18 09/06/18 06:42 06:42 11:38 WBC RBC 2.90 L Hgb 9.0 L Hct 27.0 L MCV RDW 17.4 H Plt Count 130 L Seg Neuts % (Manual) 79.0 H Lymphocytes % (Manual) 6.0 L Monocytes % (Manual) 12.0 H Basophils % (Manual) 2.0 H Nucleated RBC % Seg Neutrophils # Man Lymphocytes # (Manual) 0.3 L Monocytes # (Manual) PT INR D-Dimer POC ABG pH POC ABG pCO2 POC ABG pO2 Sodium 136 L Potassium Chloride Carbon Dioxide BUN 39 H Creatinine Glucose 106 H POC Glucose 265 H Lactic Acid Uric Acid Calcium Total Bilirubin AST ALT Total Creatine Kinase CK-MB (CK-2) CK-MB (CK-2) Rel Index Troponin T C-Reactive Protein NT-Pro-B Natriuret Pep Total Protein Albumin LDL Cholesterol Direct Urine WBC (Auto) Allied health notes reviewed: nursing
--- NOTE | 2018-09-06 19:08 | Progress Note ---
Assessment and Plan Assessment and plan: #1 acute on chronic respiratory failure continue O2 nebulizers. Improving. Patient not be short of breath resting comfortably in place. He moves he does become short of breath. #2 acute kidney injury stage III. Off hemodialysis now. He shouldn't creatinine remained stable despite off hemodialysis. Page 3 acute COPD exacerbation. We'll continue nebulizers antibiotics O2 continuously. Also prednisone as discharged. #3 pneumonia may be gram-negative nini continue current antibiotics per ID. #5. Sepsis resolved fever curve normal. Leukocytosis resolved. Pulseless electrical activity status post cardiorespiratory arrest. Patient stabilized. Started on beta renetta and aspirin. Supportive care. #6 seizure disorder EEG Normal 7 morbid obesity still awaiting halfway placement. History Interval history: No new changes over p.m. patient resting comfortably. Spoke with patient and . Also spoke with case management and they're planning for [facility] facility. Hospitalist Physical - Constitutional Vitals: Temp Pulse Resp BP Pulse Ox 97.5 F L 90 18 146/87 97 09/06/18 08:30 09/06/18 18:05 09/06/18 08:30 09/06/18 08:30 09/06/18 09:48 General appearance: Present: no acute distress, other (intubated, chronically ill appearing) - EENT Eyes: Present: PERRL, EOM intact ENT: hearing intact, clear oral mucosa, dentition normal, no oropharyngeal erythema, no poor dentition, no thrush - Neck Neck: Present: supple, normal ROM - Respiratory Respiratory: negative: diminished, rales - Cardiovascular Rhythm: regularly irregular Heart Sounds: Present: S1 & S2, systolic murmur - Extremities Extremities: no ischemia, normal temperature, normal color Extremity abnormal: edema, other (generalized weakness and debility.) Peripheral Pulses: within normal limits - Abdominal General gastrointestinal: soft, non-tender, normal bowel sounds, other (obese.) - Psychiatric Psychiatric: appropriate mood/affect, intact judgment & insight, memory intact Results - Labs CBC & Chem 7: 09/06/18 06:42 09/06/18 06:42 Labs: Laboratory Last Values WBC 4.9 K/mm3 (4.5-11.0) 09/06/18 06:42 RBC 2.90 M/mm3 (3.65-5.03) L 09/06/18 06:42 Hgb 9.0 gm/dl (11.8-15.2) L 09/06/18 06:42 Hct 27.0 % (35.5-45.6) L 09/06/18 06:42 MCV 93 fl (84-94) 09/06/18 06:42 MCH 31 pg (28-32) 09/06/18 06:42 MCHC 33 % (32-34) 09/06/18 06:42 RDW 17.4 % (13.2-15.2) H 09/06/18 06:42 Plt Count 130 K/mm3 (140-440) L 09/06/18 06:42 Lymph % (Auto) Musical Performer 08/25/18 16:43 [place] % (Auto) Musical Performer 09/06/18 06:42 Eos % (Auto) Musical Performer 08/25/18 16:43 Baso % (Auto) Musical Performer 08/25/18 16:43 Lymph # Musical Performer 08/25/18 16:43 [place] # Musical Performer 08/25/18 16:43 Eos # Musical Performer 08/25/18 16:43 Baso # Musical Performer 08/25/18 16:43 Add Manual Diff Complete 09/06/18 06:42 Total Counted 100 09/06/18 06:42 Seg Neutrophils % Musical Performer 08/25/18 16:43 Seg Neuts % (Manual) 79.0 % (40.0-70.0) H 09/06/18 06:42 0 % 09/06/18 06:42 6.0 % (13.4-35.0) L 09/06/18 06:42 Reactive Lymphs % (Man) 0 % 09/06/18 06:42 12.0 % (0.0-7.3) H 09/06/18 06:42 1.0 % (0.0-4.3) 09/06/18 06:42 2.0 % (0.0-1.8) H 09/06/18 06:42 0 % 09/06/18 06:42 0 % 09/06/18 06:42 0 % 09/06/18 06:42 0 % 09/06/18 06:42 Nucleated RBC % Not Reportable 09/06/18 06:42 Seg Neutrophils # Musical Performer 08/25/18 16:43 Seg Neutrophils # Man 3.9 K/mm3 (1.8-7.7) 09/06/18 06:42 Band Neutrophils # 0.0 K/mm3 09/06/18 06:42 0.3 K/mm3 (1.2-5.4) L 09/06/18 06:42 Abs React Lymphs (Man) 0.0 K/mm3 09/06/18 06:42 0.6 K/mm3 (0.0-0.8) 09/06/18 06:42 0.0 K/mm3 (0.0-0.4) 09/06/18 06:42 0.1 K/mm3 (0.0-0.1) 09/06/18 06:42 0.0 K/mm3 09/06/18 06:42 0.0 K/mm3 09/06/18 06:42 0.0 K/mm3 09/06/18 06:42 Blast Cells # 0.0 K/mm3 09/06/18 06:42 WBC Morphology Not Reportable 09/06/18 06:42 Hypersegmented Neuts Not Reportable 09/06/18 06:42 Hyposegmented Neuts Not Reportable 09/06/18 06:42 Hypogranular Neuts Not Reportable 09/06/18 06:42 Not Reportable 09/06/18 06:42 Not Reportable 09/06/18 06:42 Not Reportable 09/06/18 06:42 Not Reportable 09/06/18 06:42 Not Reportable 09/06/18 06:42 Not Reportable 09/06/18 06:42 Consistent w auto 09/06/18 06:42 Not Reportable 09/06/18 06:42 Plt Clumps, EDTA Not Reportable 09/06/18 06:42 Not Reportable 09/06/18 06:42 Not Reportable 09/06/18 06:42 Not Reportable 09/06/18 06:42 Plt Morphology Comment Not Reportable 09/06/18 06:42 RBC Morphology Not Reportable 09/06/18 06:42 Dimorphic RBCs Not Reportable 09/06/18 06:42 Not Reportable 09/06/18 06:42 Not Reportable 09/06/18 06:42 Not Reportable 09/06/18 06:42 1+ 09/06/18 06:42 Not Reportable 09/06/18 06:42 1+ 09/06/18 06:42 Not Reportable 09/06/18 06:42 Not Reportable 09/06/18 06:42 Not Reportable 09/06/18 06:42 Not Reportable 09/06/18 06:42 Not Reportable 09/06/18 06:42 Not Reportable 09/06/18 06:42 Not Reportable 09/06/18 06:42 Not Reportable 09/06/18 06:42 Not Reportable 09/06/18 06:42 Not Reportable 09/06/18 06:42 Not Reportable 09/06/18 06:42 Not Reportable 09/06/18 06:42 Not Reportable 09/06/18 06:42 Acanthocytes (Spur) Not Reportable 09/06/18 06:42 Rouleaux Not Reportable 09/06/18 06:42 Not Reportable 09/06/18 06:42 Not Reportable 09/06/18 06:42 Not Reportable 09/06/18 06:42 Not Reportable 09/06/18 06:42 Hem Pathologist Commnt No 09/06/18 06:42 PT 15.6 Sec. (12.2-14.9) H 08/25/18 16:43 INR 1.27 (0.87-1.13) H 08/25/18 16:43 APTT 30.8 Sec. (24.2-36.6) 08/21/18 04:42 1978.25 ng/mlDDU (0-234) H 08/24/18 13:41 POC ABG pH 7.410 (7.35-7.45) 08/30/18 13:35 POC ABG pCO2 41.4 (35-45) 08/30/18 13:35 POC ABG pO2 99 (80-105) 08/30/18 13:35 POC ABG HCO3 26.2 (22-26 mml/L) 08/30/18 13:35 POC ABG Total CO2 27 (23-27mmol/L) 08/30/18 13:35 POC ABG O2 Sat 98 08/30/18 13:35 POC ABG Base Excess 2 ((-2) - (+3)mmol/L) 08/30/18 13:35 30 % 08/30/18 13:35 Sodium 136 mmol/L (137-145) L 09/06/18 06:42 Potassium 4.5 mmol/L (3.6-5.0) 09/06/18 06:42 Chloride 101.6 mmol/L (98-107) 09/06/18 06:42 Carbon Dioxide 25 mmol/L (22-30) 09/06/18 06:42 14 mmol/L 09/06/18 06:42 BUN 39 mg/dL (9-20) H 09/06/18 06:42 1.5 mg/dL (0.8-1.5) 09/06/18 06:42 Estimated GFR 46 ml/min 09/06/18 06:42 26 % 09/06/18 06:42 Glucose 106 mg/dL (75-100) H 09/06/18 06:42 POC Glucose 131 (70-105) H 09/06/18 16:37 317 Mosm/kg 08/31/18 13:54 Lactic Acid 1.30 mmol/L (0.7-2.0) 08/21/18 20:50 9.6 mg/dL (3.5-7.6) H 08/31/18 13:54 Calcium 8.5 mg/dL (8.4-10.2) 09/06/18 06:42 Magnesium 2.00 mg/dL (1.7-2.3) 09/02/18 05:16 0.60 mg/dL (0.1-1.2) 08/28/18 04:49 AST 27 units/L (5-40) 08/28/18 04:49 ALT 12 units/L (7-56) 08/28/18 04:49 87 units/L (35-129) 08/28/18 04:49 222 units/L (55-170) H 08/21/18 10:45 CK-MB (CK-2) 9.2 ng/mL (0.0-4.0) H 08/21/18 10:45 CK-MB (CK-2) Rel Index 4.1 (0-4) H 08/21/18 10:45 0.044 ng/mL (0.00-0.029) H D 08/21/18 10:45 9.00 mg/dL (0.00-1.30) H 08/24/18 13:41 NT-Pro-B Natriuret Pep > 30191 pg/mL (0-900) H 08/28/18 04:49 5.4 g/dL (6.3-8.2) L 08/28/18 04:49 2.2 g/dL (3.9-5) L 08/28/18 04:49 0.7 % 08/28/18 04:49 Triglycerides 87 mg/dL (2-149) 08/21/18 04:42 Cholesterol 93 mg/dL (50-199) 08/21/18 04:42 44 mg/dL (50-130) L 08/21/18 04:42 41 mg/dL (40-59) 08/21/18 04:42 2.26 % 08/21/18 04:42 Yellow (Yellow) 08/21/18 15:03 Slightly-cloudy (Clear) 08/21/18 15:03 5.0 (5.0-7.0) 08/21/18 15:03 Ur Specific [place] 1.015 (1.003-1.030) 08/21/18 15:03 30 mg/dl mg/dL (Negative) 08/21/18 15:03 Neg mg/dL (Negative) 08/21/18 15:03 Neg mg/dL (Negative) 08/21/18 15:03 Mod (Negative) 08/21/18 15:03 Neg (Negative) 08/21/18 15:03 Neg (Negative) 08/21/18 15:03 < 2.0 mg/dL (<2.0) 08/21/18 15:03 Ur Leukocyte Esterase Tr (Negative) 08/21/18 15:03 13.0 /HPF (0.0-6.0) H 08/21/18 15:03 15.0 /HPF (0.0-6.0) 08/21/18 15:03 U Epithel Cells (Auto) 1.0 /HPF (0-13.0) 08/21/18 15:03 1+ /HPF (Negative) 08/21/18 15:03 Few /HPF 08/21/18 15:03 Random Vancomycin 10.5 ug/mL (0-40.0) 08/26/18 05:53 Levetiracetam 25.7 mcg/mL (12.0-46.0) 08/26/18 13:42 Hepatitis A IgM Ab Non-reactive (NonReactive) 08/27/18 23:25 Hep Bs Antigen Non-reactive (Negative) 08/27/18 23:25 Hep B Core IgM Ab Non-reactive (NonReactive) 08/27/18 23:25 Non-reactive (NonReactive) 08/27/18 23:25 Active Medications - Current Medications Current Medications: Generic Name Dose Route Start Last Admin Trade Name Freq PRN Reason Stop Dose Admin Acetaminophen 650 mg 08/21/18 06:31 09/01/18 21:12 Tylenol PO 650 mg Q4H PRN Administration Pain MILD(1-3)/Fever >100.5/COOK Albuterol/Ipratropium 1 ampul 08/24/18 20:00 09/06/18 07:53 Duoneb *Not For Prn Use* IH 1 ampul BIDRT LUIS Administration Lipase/Protease/Amylase 1 each 08/26/18 12:07 Pancreamaris [place] 10,500 Unit FEEDTUBE PRN PRN For Clogged Feeding Tube Arformoterol Tartrate 15 mcg 08/24/18 20:00 09/06/18 07:53 Brovana Nebu IH 15 mcg Q12HRT LUIS Administration Bisacodyl 10 mg 09/02/18 12:42 Dulcolax GA QDAY PRN Constipation Budesonide 0.5 mg 08/24/18 20:00 09/06/18 07:53 Pulmicort IH 0.5 mg Q12HRT LUIS Administration Dextrose 50 ml 08/21/18 06:48 D50w (25gm) Syringe IV PRN PRN Hypoglycemia Heparin Sodium (Porcine) 5,000 unit 08/22/18 10:00 09/06/18 12:03 Heparin SUB-Q 5,000 unit Q12HR LUIS Administration Hydralazine HCl 25 mg 08/30/18 22:00 09/06/18 18:05 Apresoline PO 25 mg Q8HR LUIS Administration Insulin Human Lispro 0 unit 08/31/18 22:00 09/06/18 18:00 Humalog SUB-Q Not Given ACHS LUIS Protocol Levetiracetam 750 mg 09/04/18 22:00 09/06/18 12:00 Keppra PO 750 mg BID LUIS Administration Metoclopramide HCl 10 mg 09/05/18 18:35 07/10/19 12:00 Reglan IV 10 mg Q6H PRN Administration Nausea And Vomiting Morphine Sulfate 2 mg 08/26/18 14:24 08/30/18 01:40 Morphine IV 2 mg Q6H PRN Administration Pain, Moderate (4-6) Ondansetron HCl 4 mg 08/21/18 06:31 Zofran IV Q8H PRN Nausea And Vomiting Sodium Chloride 10 ml 08/21/18 10:00 09/06/18 12:05 Sodium Chloride Flush Syringe 10 Ml IV 10 ml BID LUIS Administration Spironolactone 25 mg 09/03/18 11:00 09/06/18 12:01 Aldactone PO 25 mg QDAY LUSI Administration Nutrition/Malnutrition Assess - Dietary Evaluation Nutrition/Malnutrition Findings: Nutrition Notes Start: 08/21/18 16:58 Freq: Status: Active Protocol: Document 09/05/18 14:18 TUAN (Rec: 09/05/18 14:30 TUAN [email or web address]) Nutrition Notes Initial or Follow up Reassessment Current Diagnosis Heart Failure Other Pertinent Diagnosis COPD exacerbation, pneu, s/p cardiac arrest Current Diet Cardiac/Consistent CHO with chopped meats + Glucerna daily Labs/Tests Reviewed Pertinent Medications Reviewed Height 5 ft 6 in Weight 146.3 kg [place] Body Weight (kg) 64.54 BMI 52.0 Subjective/Other Information PT has consumed 75% of meals since last assessment. He drinks ONS daily as well. Percent of energy/protein needs met: 97% energy 70% pro (includes ONS) Burn Absent Trauma Absent #1 Nutrition Diagnosis Inadequate oral intake As Evidenced by Signs and Symptoms PO intake meeting >50% energy and pro needs Diagnosis Progress(for reassessment Improved documentation) Is patient on ventilator? No Is Patient Ambulatory and/or Out of Bed No REE-([facility]-confined to bed) 2592.060 Kcal/Kg value to use for calculation 12 Approximate Energy Requirements Using 1756 kcal/Kg Additional Notes Pro needs 1-1.2g/kg adjBW: 105-127g/day Fluid needs 1ml/kcal Nutrition Intervention Change Diet Order: Continue current Add Supplement/Snack (indicate name/kcal Glucerna Chocolate, [place] /protein ) 1 daily Provides kCal: 220 Provides Protein (gm) 10 Goal #1 Meet at least 75% of kcal and protein needs via PO intakes Follow-Up By: 09/12/18 Additional Comments F/U: stable intakes, wt
[2018-09-07] MEDS: APRESOLINE PO SCH ×3 (05:10→21:35)
[2018-09-07 06:10] LABS: Basophils # (Auto) 0.1 K/mm3 (0.0-0.1); Basophils % (Auto) 1.9 % (0.0-1.8); Eosinophils # (Auto) 0.1 K/mm3 (0.0-0.4); Eosinophils % (Auto) 2.1 % (0.0-4.3); Hematocrit 26.5 % (35.5-45.6); Hemoglobin 8.7 gm/dl (11.8-15.2); Lymphocytes # (Auto) 0.7 K/mm3 (1.2-5.4); Lymphocytes % (Auto) 13.3 % (13.4-35.0); Mean Corpuscular HGB Conc 33 % (32-34); Mean Corpuscular Hemoglobin 31 pg (28-32); Mean Corpuscular Volume 95 fl (84-94); Monocytes # (Auto) 0.7 K/mm3 (0.0-0.8); Monocytes % (Auto) 14.2 % (0.0-7.3); Platelet Count 142 K/mm3 (140-440); Red Cell Distribution Width 17.7 % (13.2-15.2)
[2018-09-07 06:28] LABS: Calcium 8.7 mg/dL (8.4-10.2)
--- NOTE | 2018-09-07 09:26 | Progress Note ---
Assessment and Plan Impression: * KHRIS on ckd * s/p Cardiopulmonary arrest with ROSC * Acute on chronic hypoxemic respiratory failure on MVS * Lactic acidosis * Acute metabolic/respiratory acidosis * Sepsis probably secondary to aspiration PNA * COPD * Acute metabolic-toxic encephalopathy * NSTEMI * Type 2 DM Plan: * antibiotics per primary team * daily lytes * renal diet * Serum creatinine seems to have leveled off. His Vas-Cath has been removed. * No further indication for dialysis at this time. * Continue to monitor SCr and UOP . Remains nonoliguric . * He currently has indwelling Madison catheter in place. * Strict I/O * Avoid nephrotoxins Subjective Date of service: 09/07/18 Principal diagnosis: s/p cardiac arrest; severe sepsis; acute hypoxemic- hypercapnic resp failure Interval history: Patient is comfortable. Denies any shortness of breath. Currently has a CPAP mask on. No nausea or vomiting. Objective - Vital Signs Vital signs: Vital Signs - 12hr 09/06/18 09/07/18 09/07/18 23:26 01:24 03:00 Temperature 98.3 F Pulse Rate 88 102 H Respiratory 20 18 Rate Blood Pressure 156/78 O2 Sat by Pulse 97 95 Oximetry - General Appearance General appearance: well-developed, well-nourished, appears stated age, obese EENT: PERRL, mucous membranes moist Neck: no JVD, no thyromegaly, no carotid bruit, supple Respiratory: Present: Clear to Ascultation, Normal Exam Cardiology: regular, normal heart rate Gastrointestinal: normal, normoactive bowel sounds Integumentary: no rash, warm and dry, other (no edema) - Lab 09/07/18 05:12 09/07/18 05:12 Most recent lab results Calcium 8.7 mg/dL (8.4-10.2) 09/07/18 05:12 Magnesium 2.00 mg/dL (1.7-2.3) 09/02/18 05:16 Medications & Allergies - Medications Allergies/Adverse Reactions: Allergies Penicillins Allergy (Verified 08/21/18 04:49) Unknown -cillins Allergy (Uncoded 08/21/18 04:49) Unknown Home Medications: Home Medications Medication Instructions Recorded Confirmed Last Taken Type AtorvaSTATin [Lipitor] 10 mg PO QHS 08/21/18 08/21/18 Unknown History Ferrous Sulfate [Feosol] 325 mg PO QDAY 08/21/18 08/21/18 Unknown History Melatonin [Melatonin 10MG CAP] 10 mg PO DAILY 08/21/18 08/21/18 Unknown History NIFEdipine [Nifedipine ER] 60 mg PO BID 08/21/18 08/21/18 Unknown History Sennosides Tab [Senokot] 1 tab PO HS 08/21/18 08/21/18 Unknown History Tamsulosin [Flomax] 2 cap PO HS 08/21/18 08/21/18 Unknown History Torsemide [Demadex] 20 mg PO DAILY 08/21/18 08/21/18 Unknown History Venlafaxine HCl [Venlafaxin ER] 75 mg PO QDAY 08/21/18 08/21/18 Unknown History buPROPion [Wellbutrin] 100 mg PO DAILY 08/21/18 08/21/18 Unknown History Active Medications: Generic Name Dose Route Start Last Admin Trade Name Freq PRN Reason Stop Dose Admin Acetaminophen 650 mg 08/21/18 06:31 09/01/18 21:12 Tylenol PO 650 mg Q4H PRN Administration Pain MILD(1-3)/Fever >100.5/COOK Albuterol/Ipratropium 1 ampul 08/24/18 20:00 09/06/18 20:28 Duoneb *Not For Prn Use* IH Not Given BIDRT LUIS Lipase/Protease/Amylase 1 each 08/26/18 12:07 [place] 10,500 Unit FEEDTUBE PRN PRN For Clogged Feeding Tube Arformoterol Tartrate 15 mcg 08/24/18 20:00 09/06/18 20:25 Brovana Nebu IH 15 mcg Q12HRT LUIS Administration Bisacodyl 10 mg 09/02/18 12:42 Dulcolax LA QDAY PRN Constipation Budesonide 0.5 mg 08/24/18 20:00 09/06/18 20:25 Pulmicort IH 0.5 mg Q12HRT LUIS Administration Dextrose 50 ml 08/21/18 06:48 D50w (25gm) Syringe IV PRN PRN Hypoglycemia Heparin Sodium (Porcine) 5,000 unit 08/22/18 10:00 09/06/18 21:04 Heparin SUB-Q 5,000 unit Q12HR LUIS Administration Hydralazine HCl 25 mg 08/30/18 22:00 09/07/18 05:10 Apresoline PO 25 mg Q8HR LUIS Administration Insulin Human Lispro 0 unit 08/31/18 22:00 09/06/18 21:06 Humalog SUB-Q Not Given ACHS [facility] Protocol Levetiracetam 750 mg 09/04/18 22:00 09/06/18 21:04 Keppra PO 750 mg BID LUIS Administration Metoclopramide HCl 10 mg 09/05/18 18:35 09/06/18 12:00 Reglan IV 10 mg Q6H PRN Administration Nausea And Vomiting Morphine Sulfate 2 mg 08/26/18 14:24 08/30/18 01:40 Morphine IV 2 mg Q6H PRN Administration Pain, Moderate (4-6) Ondansetron HCl 4 mg 08/21/18 06:31 Zofran IV Q8H PRN Nausea And Vomiting Sodium Chloride 10 ml 08/21/18 10:00 09/06/18 21:06 Sodium Chloride Flush Syringe 10 Ml IV 10 ml BID LUIS Administration Spironolactone 25 mg 09/03/18 11:00 09/06/18 12:01 Aldactone PO 25 mg QDAY LUIS Administration
[2018-09-07] MEDS: KEPPRA PO SCH ×2 (10:00→21:34)
[2018-09-07] MEDS: PULMICORT IH SCH ×2 (10:35→21:21)
[2018-09-07] MEDS: BROVANA NEBU IH SCH ×2 (10:35→21:21)
[2018-09-07] MEDS: DUONEB *Not for PRN Use IH SCH ×2 (10:35→21:21)
--- NOTE | 2018-09-07 10:50 | Progress Note ---
Assessment and Plan Pt in AFib on tele with HR currently 90s, no SVR overnight, pt states he wore his CPAP all night. Would cont to avoid AV christy blocking agents. Agree with hydralazine for BP management. Encourage compliance with CPAP and cont to monitor for bradyarrhythmias on telemetry. Will not initiate systemic AC in regards to AFib at this time in setting of anemia and thrombocytopenia. Will plan for lexiscan MPI stress test in AM in setting of cardiomyopathy, cardiac arrest, new AFib, elevated trop, etc. NPO after MN. The patient has been seen in conjunction with Dr. Smith who agrees with the assessment and plan of care. - Patient Problems (1) Cardiac arrest Current Visit: Yes Status: Acute (2) Atrial fibrillation Current Visit: Yes Status: Acute (3) Acute HFrEF (heart failure with reduced ejection fraction) Current Visit: Yes Status: Resolved (4) Cardiomyopathy Current Visit: Yes Status: Chronic (5) Acute on chronic respiratory failure Current Visit: Yes Status: Acute (6) Acute renal failure Current Visit: Yes Status: Acute (7) Pneumonia Current Visit: Yes Status: Acute (8) Sepsis Current Visit: Yes Status: Suspected (9) Anemia Current Visit: Yes Status: Acute (10) Thrombocytopenia Current Visit: Yes Status: Acute (11) Elevated troponin Current Visit: Yes Status: Acute Subjective Date of service: 09/07/18 Principal diagnosis: s/p cardiac arrest; severe sepsis; acute hypoxemic- hypercapnic resp failure Interval history: pt resting in bed, appears comfortable. no current complaints. in AFib on tele with HR currently 90s, no SVR overnight, pt states he wore his CPAP all night. Objective Last Vital Signs Temp 98.3 F 09/06/18 23:26 Pulse 90 09/07/18 10:35 Resp 20 09/07/18 10:35 BP 156/78 09/06/18 23:26 Pulse Ox 99 09/07/18 10:40 - Physical Examination General: No Apparent Distress HEENT: Positive: PERRL Neck: Positive: neck supple Cardiac: Positive: irregularly irregular, S1/S2 Lungs: Positive: Decreased Breath Sounds Neuro: Positive: Grossly Intact Abdomen: Positive: Soft /Rectal: Other (Madison in place. ) Skin: Positive: Clear. Negative: Rash Musculoskeletal: Decreased Range of Motion Extremities: Present: Other (Generalized edema). Absent: edema - Labs and Meds CBC 09/07/18 Range/Units 05:12 WBC 4.9 (4.5-11.0) K/mm3 RBC 2.80 L (3.65-5.03) M/mm3 Hgb 8.7 L (11.8-15.2) gm/dl Hct 26.5 L (35.5-45.6) % Plt Count 142 (140-440) K/mm3 Lymph # 0.7 L (1.2-5.4) K/mm3 [place] # 0.7 (0.0-0.8) K/mm3 Eos # 0.1 (0.0-0.4) K/mm3 Baso # 0.1 (0.0-0.1) K/mm3 Comprehensive Metabolic Panel 09/07/18 Range/Units 05:12 Sodium 137 (137-145) mmol/L Potassium 4.8 (3.6-5.0) mmol/L Chloride 101.3 (98-107) mmol/L Carbon Dioxide 26 (22-30) mmol/L BUN 36 H (9-20) mg/dL Creatinine 1.5 (0.8-1.5) mg/dL Glucose 100 (75-100) mg/dL Calcium 8.7 (8.4-10.2) mg/dL - Imaging and Cardiology EKG: image reviewed Echo: report reviewed ( EF 40-45%, LV mod dilated, pseudonormalization, RV severely dilated, RA mod dilated, mod TR, RVSP 47mmHg. ) - EKG Sinus rhythms and dysrhythmias: sinus rhythm AV and intraventricular conduction: right bundle branch block - Allied health notes Allied health notes reviewed: nursing
[2018-09-07] MEDS: HumaLOG SUB-Q SCH ×4 (11:01→21:50)
[2018-09-07] MEDS: ALDACTONE PO SCH (11:18)
[2018-09-07] MEDS: HEPARIN SUB-Q SCH ×2 (11:19→21:34)
[2018-09-07] MEDS: SODIUM CHLORIDE FLUSH SYRINGE 10 ML IV SCH ×2 (11:20→21:36)
--- NOTE | 2018-09-07 13:33 | Progress Note ---
Assessment and Plan s/p Cardiopulmonary arrest with ROSC Acute on chronic hypoxemic respiratory failure on MVS Lactic acidosis Acute metabolic/respiratory acidosis Acute on chronic renal failure (multifactorial) Sepsis probably secondary to aspiration PNA AE-COPD Acute metabolic-toxic encephalopathy Morbid obesity NSTEMI- probably type 2 ischemia Type 2 DM h/o Liver disease h/o Colon CA Hyperkalemia LEFT TMJ JOINT DISLOCATION-POA - VQ scan low probability (no further w/up) - continue scheduled CPAP qhs with prn daytime use - HD/UF stopped - repeat CXR prn at this point - continue brovana and pulmicort for severe COPD history / exacerbation (reduced JENELLE frequency) - Will need maxillo facial surgery for evaluation of TMJ dislocation - continue supplemental oxygen to keep O2 sats >/= 88-90% - continue bronchodilators with pulmonary hygiene per RT - systemic steroids tapered off - continue accuchecks with glycemic control per SSI for target blood glucose <180mg/dL - Antibiotics per ID - Avoid nephrotoxic agents, adjust all antibiotics and medications for CrCL and GFR - VTE and Stress ulcer prophylaxis( Heparin/Famotidine) - continue other care per attending / other consultants .... care plan discussed at length with his in room CODE STATUS: FULL CODE Subjective Date of service: 09/07/18 Principal diagnosis: s/p cardiac arrest; severe sepsis; acute hypoxemic- hypercapnic resp failure Interval history: Patient is seen today for: cardiopulmonary arrest; severe sepsis; acute hypoxemic-hypercapnic respiratory failure on MVS; edgar on ckd Seen and examined at bedside; 24hour events reviewed; nursing and respiratory care staff consulted; no adverse overnight events reported to me; resting peacefully in bed; awaiting placement; tolerating CPAP qhs and very compliant; No N/V/F/C; denies chest pains or palpitations Objective Vital Signs - 12hr 09/07/18 09/07/18 09/07/18 03:00 10:35 10:40 Pulse Rate 102 H Pulse Rate [ 90 Anterior Left Upper Lobe] Pulse Rate [ 90 Anterior Right Upper Lobe] Respiratory 20 Rate [Anterior Left Upper Lobe ] Respiratory 20 Rate [Anterior Right Upper Lobe] O2 Sat by Pulse 99 Oximetry 09/07/18 11:18 Pulse Rate 92 H Pulse Rate [ Anterior Left Upper Lobe] Pulse Rate [ Anterior Right Upper Lobe] Respiratory Rate [Anterior Left Upper Lobe ] Respiratory Rate [Anterior Right Upper Lobe] O2 Sat by Pulse Oximetry Constitutional: no acute distress, alert Eyes: non-icteric ENT: oropharynx moist, other (extubated) Neck: supple, no JVD, other (short neck) Effort: mildly labored Ascultation: Bilateral: diminished breath sounds, rhonchi (improved overall) Percussion: Bilateral: not dull Cardiovascular: regular rate and rhythm, other (S1,S2, no murmurs, no gallops or rubs) Gastrointestinal: normoactive bowel sounds, soft, non-tender, non-distended, other (Madison catheter in place, minimal urine tea colored) Integumentary: normal Extremities: no cyanosis, no edema, pink and warm, pulses normal, no ischemia or petechiae Neurologic: normal mental status, non-focal exam (grossly), pupils equal and round, CN II-XII normal Psychiatric: mood appropriate, affect normal CBC and BMP: 09/08/18 05:23 09/08/18 05:23 ABG, PT/INR, D-dimer: ABG POC ABG pH 7.410 (7.35-7.45) 08/30/18 13:35 POC ABG pCO2 41.4 (35-45) 08/30/18 13:35 POC ABG pO2 99 (80-105) 08/30/18 13:35 POC ABG HCO3 26.2 (22-26 mml/L) 08/30/18 13:35 POC ABG Total CO2 27 (23-27mmol/L) 08/30/18 13:35 POC ABG O2 Sat 98 08/30/18 13:35 PT/INR, D-dimer PT 15.6 Sec. (12.2-14.9) H 08/25/18 16:43 INR 1.27 (0.87-1.13) H 08/25/18 16:43 1978.25 ng/mlDDU (0-234) H 08/24/18 13:41 Abnormal lab findings: Abnormal Labs 08/21/18 08/21/18 08/21/18 04:42 04:42 04:42 WBC 19.1 H RBC 2.49 L Hgb 7.7 L Hct 24.5 L MCV 98 H RDW 17.7 H Plt Count Lymph % (Auto) [place] % (Auto) Baso % (Auto) Lymph # Seg Neuts % (Manual) 84.0 H Lymphocytes % (Manual) 7.0 L Monocytes % (Manual) 9.0 H Basophils % (Manual) Nucleated RBC % Seg Neutrophils # Man 16.0 H Lymphocytes # (Manual) Monocytes # (Manual) 1.7 H PT 20.1 H INR 1.76 H D-Dimer POC ABG pH POC ABG pCO2 POC ABG pO2 Sodium Potassium Chloride Carbon Dioxide BUN Creatinine Glucose POC Glucose Lactic Acid Uric Acid Calcium Total Bilirubin AST ALT Total Creatine Kinase CK-MB (CK-2) CK-MB (CK-2) Rel Index Troponin T 0.032 H C-Reactive Protein NT-Pro-B Natriuret Pep Total Protein Albumin LDL Cholesterol Direct 44 L Urine WBC (Auto) 08/21/18 08/21/18 08/21/18 04:42 04:42 04:42 WBC RBC Hgb Hct MCV RDW Plt Count Lymph % (Auto) [place] % (Auto) Baso % (Auto) Lymph # Seg Neuts % (Manual) Lymphocytes % (Manual) Monocytes % (Manual) Basophils % (Manual) Nucleated RBC % Seg Neutrophils # Man Lymphocytes # (Manual) Monocytes # (Manual) PT INR D-Dimer POC ABG pH POC ABG pCO2 POC ABG pO2 Sodium Potassium 6.0 H Chloride Carbon Dioxide 15 L BUN 57 H Creatinine 4.3 H Glucose 111 H POC Glucose Lactic Acid 5.80 H* Uric Acid Calcium Total Bilirubin 1.80 H AST 212 H ALT 94 H Total Creatine Kinase CK-MB (CK-2) CK-MB (CK-2) Rel Index Troponin T C-Reactive Protein NT-Pro-B Natriuret Pep 67403 H Total Protein Albumin 3.2 L LDL Cholesterol Direct Urine WBC (Auto) 08/21/18 08/21/18 08/21/18 05:08 05:58 05:58 WBC RBC Hgb Hct MCV RDW Plt Count Lymph % (Auto) [place] % (Auto) Baso % (Auto) Lymph # Seg Neuts % (Manual) Lymphocytes % (Manual) Monocytes % (Manual) Basophils % (Manual) Nucleated RBC % Seg Neutrophils # Man Lymphocytes # (Manual) Monocytes # (Manual) PT INR D-Dimer POC ABG pH 7.164 L POC ABG pCO2 46.3 H POC ABG pO2 229 H Sodium Potassium Chloride Carbon Dioxide BUN Creatinine Glucose POC Glucose Lactic Acid 5.10 H* Uric Acid Calcium Total Bilirubin AST ALT Total Creatine Kinase CK-MB (CK-2) CK-MB (CK-2) Rel Index Troponin T 0.035 H C-Reactive Protein NT-Pro-B Natriuret Pep Total Protein Albumin LDL Cholesterol Direct Urine WBC (Auto) 08/21/18 08/21/18 08/21/18 06:45 06:45 06:53 WBC RBC Hgb Hct MCV RDW Plt Count Lymph % (Auto) [place] % (Auto) Baso % (Auto) Lymph # Seg Neuts % (Manual) Lymphocytes % (Manual) Monocytes % (Manual) Basophils % (Manual) Nucleated RBC % Seg Neutrophils # Man Lymphocytes # (Manual) Monocytes # (Manual) PT INR D-Dimer POC ABG pH 7.160 L POC ABG pCO2 46.8 H POC ABG pO2 Sodium Potassium Chloride Carbon Dioxide BUN Creatinine Glucose POC Glucose Lactic Acid 4.70 H* Uric Acid Calcium Total Bilirubin AST ALT Total Creatine Kinase 234 H CK-MB (CK-2) 9.1 H CK-MB (CK-2) Rel Index Troponin T 0.032 H C-Reactive Protein NT-Pro-B Natriuret Pep Total Protein Albumin LDL Cholesterol Direct Urine WBC (Auto) 08/21/18 08/21/18 08/21/18 10:43 10:43 10:45 WBC RBC Hgb Hct MCV RDW Plt Count Lymph % (Auto) [place] % (Auto) Baso % (Auto) Lymph # Seg Neuts % (Manual) Lymphocytes % (Manual) Monocytes % (Manual) Basophils % (Manual) Nucleated RBC % Seg Neutrophils # Man Lymphocytes # (Manual) Monocytes # (Manual) PT INR D-Dimer POC ABG pH POC ABG pCO2 POC ABG pO2 Sodium Potassium Chloride Carbon Dioxide 17 L BUN 59 H Creatinine 4.2 H Glucose POC Glucose Lactic Acid 3.70 H* Uric Acid Calcium Total Bilirubin AST ALT Total Creatine Kinase 222 H CK-MB (CK-2) 9.2 H CK-MB (CK-2) Rel Index 4.1 H Troponin T 0.044 H D C-Reactive Protein NT-Pro-B Natriuret Pep Total Protein Albumin LDL Cholesterol Direct Urine WBC (Auto) 08/21/18 08/21/18 08/21/18 11:38 12:33 15:03 WBC RBC Hgb Hct MCV RDW Plt Count Lymph % (Auto) [place] % (Auto) Baso % (Auto) Lymph # Seg Neuts % (Manual) Lymphocytes % (Manual) Monocytes % (Manual) Basophils % (Manual) Nucleated RBC % Seg Neutrophils # Man Lymphocytes # (Manual) Monocytes # (Manual) PT INR D-Dimer POC ABG pH 7.250 L POC ABG pCO2 POC ABG pO2 121 H Sodium Potassium Chloride Carbon Dioxide BUN Creatinine Glucose POC Glucose 129 H Lactic Acid Uric Acid Calcium Total Bilirubin AST ALT Total Creatine Kinase CK-MB (CK-2) CK-MB (CK-2) Rel Index Troponin T C-Reactive Protein NT-Pro-B Natriuret Pep Total Protein Albumin LDL Cholesterol Direct Urine WBC (Auto) 13.0 H 08/21/18 08/22/18 08/22/18 15:47 00:01 04:27 WBC RBC Hgb Hct MCV RDW Plt Count Lymph % (Auto) [place] % (Auto) Baso % (Auto) Lymph # Seg Neuts % (Manual) Lymphocytes % (Manual) Monocytes % (Manual) Basophils % (Manual) Nucleated RBC % Seg Neutrophils # Man Lymphocytes # (Manual) Monocytes # (Manual) PT INR D-Dimer POC ABG pH 7.457 H POC ABG pCO2 POC ABG pO2 117 H Sodium Potassium Chloride Carbon Dioxide BUN Creatinine Glucose POC Glucose 211 H Lactic Acid 2.70 H* Uric Acid Calcium Total Bilirubin AST ALT Total Creatine Kinase CK-MB (CK-2) CK-MB (CK-2) Rel Index Troponin T C-Reactive Protein NT-Pro-B Natriuret Pep Total Protein Albumin LDL Cholesterol Direct Urine WBC (Auto) 08/22/18 08/22/18 08/22/18 05:46 06:10 06:10 WBC RBC 2.27 L Hgb 7.0 L Hct 21.2 L MCV RDW 16.8 H Plt Count 129 L Lymph % (Auto) [place] % (Auto) Baso % (Auto) Lymph # Seg Neuts % (Manual) 95.0 H Lymphocytes % (Manual) 1.0 L Monocytes % (Manual) Basophils % (Manual) Nucleated RBC % 1.0 H Seg Neutrophils # Man 7.8 H Lymphocytes # (Manual) 0.1 L Monocytes # (Manual) PT INR D-Dimer POC ABG pH POC ABG pCO2 POC ABG pO2 Sodium Potassium Chloride Carbon Dioxide 20 L BUN 63 H Creatinine 3.9 H Glucose 205 H POC Glucose 223 H Lactic Acid Uric Acid Calcium Total Bilirubin AST ALT Total Creatine Kinase CK-MB (CK-2) CK-MB (CK-2) Rel Index Troponin T C-Reactive Protein NT-Pro-B Natriuret Pep Total Protein Albumin LDL Cholesterol Direct Urine WBC (Auto) 08/22/18 08/22/18 08/22/18 06:10 12:57 16:21 WBC RBC Hgb Hct MCV RDW Plt Count Lymph % (Auto) [place] % (Auto) Baso % (Auto) Lymph # Seg Neuts % (Manual) Lymphocytes % (Manual) Monocytes % (Manual) Basophils % (Manual) Nucleated RBC % Seg Neutrophils # Man Lymphocytes # (Manual) Monocytes # (Manual) PT INR D-Dimer POC ABG pH 7.477 H POC ABG pCO2 POC ABG pO2 Sodium Potassium Chloride Carbon Dioxide BUN Creatinine Glucose POC Glucose 166 H Lactic Acid Uric Acid Calcium Total Bilirubin AST ALT Total Creatine Kinase CK-MB (CK-2) CK-MB (CK-2) Rel Index Troponin T C-Reactive Protein 23.60 H NT-Pro-B Natriuret Pep Total Protein Albumin LDL Cholesterol Direct Urine WBC (Auto) 08/22/18 08/22/18 08/23/18 17:41 23:42 04:38 WBC RBC Hgb Hct MCV RDW Plt Count Lymph % (Auto) [place] % (Auto) Baso % (Auto) Lymph # Seg Neuts % (Manual) Lymphocytes % (Manual) Monocytes % (Manual) Basophils % (Manual) Nucleated RBC % Seg Neutrophils # Man Lymphocytes # (Manual) Monocytes # (Manual) PT INR D-Dimer POC ABG pH 7.249 L POC ABG pCO2 53.5 H POC ABG pO2 73 L Sodium Potassium Chloride Carbon Dioxide BUN Creatinine Glucose POC Glucose 131 H 168 H Lactic Acid Uric Acid Calcium Total Bilirubin AST ALT Total Creatine Kinase CK-MB (CK-2) CK-MB (CK-2) Rel Index Troponin T C-Reactive Protein NT-Pro-B Natriuret Pep Total Protein Albumin LDL Cholesterol Direct Urine WBC (Auto) 08/23/18 08/23/18 08/23/18 04:52 04:52 04:52 WBC RBC 2.39 L Hgb 7.5 L Hct 22.8 L MCV 95 H RDW 17.6 H Plt Count Lymph % (Auto) [place] % (Auto) Baso % (Auto) Lymph # Seg Neuts % (Manual) Lymphocytes % (Manual) Monocytes % (Manual) Basophils % (Manual) Nucleated RBC % Seg Neutrophils # Man Lymphocytes # (Manual) Monocytes # (Manual) PT INR D-Dimer POC ABG pH POC ABG pCO2 POC ABG pO2 Sodium Potassium 5.6 H 5.6 H Chloride Carbon Dioxide 21 L BUN 71 H 72 H Creatinine 4.1 H 4.0 H Glucose 141 H 140 H POC Glucose Lactic Acid Uric Acid Calcium 8.3 L 8.2 L Total Bilirubin AST 247 H ALT 220 H Total Creatine Kinase CK-MB (CK-2) CK-MB (CK-2) Rel Index Troponin T C-Reactive Protein NT-Pro-B Natriuret Pep Total Protein Albumin 2.8 L LDL Cholesterol Direct Urine WBC (Auto) 08/23/18 08/23/18 08/23/18 05:50 08:38 12:21 WBC RBC Hgb Hct MCV RDW Plt Count Lymph % (Auto) [place] % (Auto) Baso % (Auto) Lymph # Seg Neuts % (Manual) Lymphocytes % (Manual) Monocytes % (Manual) Basophils % (Manual) Nucleated RBC % Seg Neutrophils # Man Lymphocytes # (Manual) Monocytes # (Manual) PT INR D-Dimer POC ABG pH POC ABG pCO2 POC ABG pO2 Sodium Potassium Chloride Carbon Dioxide BUN Creatinine Glucose POC Glucose 160 H 177 H Lactic Acid Uric Acid Calcium Total Bilirubin AST ALT Total Creatine Kinase CK-MB (CK-2) CK-MB (CK-2) Rel Index Troponin T C-Reactive Protein NT-Pro-B Natriuret Pep 90513 H Total Protein Albumin LDL Cholesterol Direct Urine WBC (Auto) 08/23/18 08/23/18 08/23/18 12:36 14:24 18:05 WBC RBC Hgb Hct MCV RDW Plt Count Lymph % (Auto) [place] % (Auto) Baso % (Auto) Lymph # Seg Neuts % (Manual) Lymphocytes % (Manual) Monocytes % (Manual) Basophils % (Manual) Nucleated RBC % Seg Neutrophils # Man Lymphocytes # (Manual) Monocytes # (Manual) PT INR D-Dimer POC ABG pH 7.337 L POC ABG pCO2 POC ABG pO2 145 H Sodium 136 L Potassium 5.2 H Chloride Carbon Dioxide BUN 76 H Creatinine 4.2 H Glucose 158 H POC Glucose 169 H Lactic Acid Uric Acid Calcium 8.1 L Total Bilirubin AST ALT Total Creatine Kinase CK-MB (CK-2) CK-MB (CK-2) Rel Index Troponin T C-Reactive Protein NT-Pro-B Natriuret Pep Total Protein Albumin LDL Cholesterol Direct Urine WBC (Auto) 08/23/18 08/23/18 08/24/18 22:43 23:42 05:16 WBC RBC Hgb Hct MCV RDW Plt Count Lymph % (Auto) [place] % (Auto) Baso % (Auto) Lymph # Seg Neuts % (Manual) Lymphocytes % (Manual) Monocytes % (Manual) Basophils % (Manual) Nucleated RBC % Seg Neutrophils # Man Lymphocytes # (Manual) Monocytes # (Manual) PT INR D-Dimer POC ABG pH POC ABG pCO2 POC ABG pO2 Sodium 136 L Potassium 5.3 H 5.2 H Chloride 97.9 L Carbon Dioxide BUN 80 H 86 H Creatinine 4.0 H 4.3 H Glucose 164 H 202 H POC Glucose 183 H Lactic Acid Uric Acid Calcium 7.9 L Total Bilirubin AST ALT Total Creatine Kinase CK-MB (CK-2) CK-MB (CK-2) Rel Index Troponin T C-Reactive Protein NT-Pro-B Natriuret Pep Total Protein Albumin LDL Cholesterol Direct Urine WBC (Auto) 08/24/18 08/24/18 08/24/18 05:21 05:29 10:10 WBC RBC 2.47 L Hgb 7.5 L Hct 23.3 L MCV RDW 17.5 H Plt Count 118 L Lymph % (Auto) [place] % (Auto) Baso % (Auto) Lymph # Seg Neuts % (Manual) 92.0 H Lymphocytes % (Manual) 2.0 L Monocytes % (Manual) Basophils % (Manual) Nucleated RBC % Seg Neutrophils # Man 8.8 H Lymphocytes # (Manual) 0.2 L Monocytes # (Manual) PT INR D-Dimer POC ABG pH 7.243 L POC ABG pCO2 56.8 H POC ABG pO2 Sodium Potassium Chloride Carbon Dioxide BUN Creatinine Glucose POC Glucose 209 H Lactic Acid Uric Acid Calcium Total Bilirubin AST ALT Total Creatine Kinase CK-MB (CK-2) CK-MB (CK-2) Rel Index Troponin T C-Reactive Protein NT-Pro-B Natriuret Pep Total Protein Albumin LDL Cholesterol Direct Urine WBC (Auto) 08/24/18 08/24/18 08/24/18 10:10 11:19 13:41 WBC RBC Hgb Hct MCV RDW Plt Count Lymph % (Auto) [place] % (Auto) Baso % (Auto) Lymph # Seg Neuts % (Manual) Lymphocytes % (Manual) Monocytes % (Manual) Basophils % (Manual) Nucleated RBC % Seg Neutrophils # Man Lymphocytes # (Manual) Monocytes # (Manual) PT INR D-Dimer 1978.25 H POC ABG pH POC ABG pCO2 POC ABG pO2 Sodium Potassium Chloride Carbon Dioxide BUN Creatinine Glucose POC Glucose 212 H Lactic Acid Uric Acid Calcium Total Bilirubin AST ALT Total Creatine Kinase CK-MB (CK-2) CK-MB (CK-2) Rel Index Troponin T C-Reactive Protein NT-Pro-B Natriuret Pep 41813 H Total Protein Albumin LDL Cholesterol Direct Urine WBC (Auto) 08/24/18 08/24/18 08/24/18 13:41 14:27 17:23 WBC RBC Hgb Hct MCV RDW Plt Count Lymph % (Auto) [place] % (Auto) Baso % (Auto) Lymph # Seg Neuts % (Manual) Lymphocytes % (Manual) Monocytes % (Manual) Basophils % (Manual) Nucleated RBC % Seg Neutrophils # Man Lymphocytes # (Manual) Monocytes # (Manual) PT INR D-Dimer POC ABG pH POC ABG pCO2 POC ABG pO2 Sodium 136 L Potassium 5.1 H Chloride 97.8 L Carbon Dioxide BUN 90 H Creatinine 4.1 H Glucose 157 H POC Glucose 155 H Lactic Acid Uric Acid Calcium 8.0 L Total Bilirubin AST ALT Total Creatine Kinase CK-MB (CK-2) CK-MB (CK-2) Rel Index Troponin T C-Reactive Protein 9.00 H NT-Pro-B Natriuret Pep Total Protein Albumin LDL Cholesterol Direct Urine WBC (Auto) 08/25/18 08/25/18 08/25/18 00:38 05:22 05:57 WBC RBC Hgb Hct MCV RDW Plt Count Lymph % (Auto) [place] % (Auto) Baso % (Auto) Lymph # Seg Neuts % (Manual) Lymphocytes % (Manual) Monocytes % (Manual) Basophils % (Manual) Nucleated RBC % Seg Neutrophils # Man Lymphocytes # (Manual) Monocytes # (Manual) PT INR D-Dimer POC ABG pH 7.238 L POC ABG pCO2 58.2 H POC ABG pO2 Sodium Potassium 5.4 H Chloride Carbon Dioxide BUN 98 H Creatinine 4.3 H Glucose 217 H POC Glucose 176 H Lactic Acid Uric Acid Calcium 8.3 L Total Bilirubin AST ALT Total Creatine Kinase CK-MB (CK-2) CK-MB (CK-2) Rel Index Troponin T C-Reactive Protein NT-Pro-B Natriuret Pep 50199 H Total Protein Albumin LDL Cholesterol Direct Urine WBC (Auto) 08/25/18 08/25/18 08/25/18 06:56 08:59 11:38 WBC RBC Hgb Hct MCV RDW Plt Count Lymph % (Auto) [place] % (Auto) Baso % (Auto) Lymph # Seg Neuts % (Manual) Lymphocytes % (Manual) Monocytes % (Manual) Basophils % (Manual) Nucleated RBC % Seg Neutrophils # Man Lymphocytes # (Manual) Monocytes # (Manual) PT INR D-Dimer POC ABG pH 7.348 L POC ABG pCO2 48.6 H POC ABG pO2 Sodium Potassium Chloride Carbon Dioxide BUN Creatinine Glucose POC Glucose 247 H 235 H Lactic Acid Uric Acid Calcium Total Bilirubin AST ALT Total Creatine Kinase CK-MB (CK-2) CK-MB (CK-2) Rel Index Troponin T C-Reactive Protein NT-Pro-B Natriuret Pep Total Protein Albumin LDL Cholesterol Direct Urine WBC (Auto) 08/25/18 08/25/18 08/25/18 12:29 16:43 16:43 WBC 14.7 H RBC 2.90 L Hgb 8.9 L Hct 27.4 L MCV 95 H RDW 17.3 H Plt Count 119 L Lymph % (Auto) [place] % (Auto) Baso % (Auto) Lymph # Seg Neuts % (Manual) 94.0 H Lymphocytes % (Manual) 2.0 L Monocytes % (Manual) Basophils % (Manual) Nucleated RBC % Seg Neutrophils # Man 13.8 H Lymphocytes # (Manual) 0.3 L Monocytes # (Manual) PT 15.6 H INR 1.27 H D-Dimer POC ABG pH POC ABG pCO2 POC ABG pO2 Sodium Potassium Chloride Carbon Dioxide BUN Creatinine Glucose POC Glucose 237 H Lactic Acid Uric Acid Calcium Total Bilirubin AST ALT Total Creatine Kinase CK-MB (CK-2) CK-MB (CK-2) Rel Index Troponin T C-Reactive Protein NT-Pro-B Natriuret Pep Total Protein Albumin LDL Cholesterol Direct Urine WBC (Auto) 08/25/18 08/26/18 08/26/18 17:22 00:16 04:56 WBC RBC Hgb Hct MCV RDW Plt Count Lymph % (Auto) [place] % (Auto) Baso % (Auto) Lymph # Seg Neuts % (Manual) Lymphocytes % (Manual) Monocytes % (Manual) Basophils % (Manual) Nucleated RBC % Seg Neutrophils # Man Lymphocytes # (Manual) Monocytes # (Manual) PT INR D-Dimer POC ABG pH POC ABG pCO2 45.2 H POC ABG pO2 Sodium Potassium Chloride Carbon Dioxide BUN Creatinine Glucose POC Glucose 200 H 180 H Lactic Acid Uric Acid Calcium Total Bilirubin AST ALT Total Creatine Kinase CK-MB (CK-2) CK-MB (CK-2) Rel Index Troponin T C-Reactive Protein NT-Pro-B Natriuret Pep Total Protein Albumin LDL Cholesterol Direct Urine WBC (Auto) 08/26/18 08/26/18 08/26/18 05:53 06:20 08:48 WBC RBC Hgb Hct MCV RDW Plt Count Lymph % (Auto) [place] % (Auto) Baso % (Auto) Lymph # Seg Neuts % (Manual) Lymphocytes % (Manual) Monocytes % (Manual) Basophils % (Manual) Nucleated RBC % Seg Neutrophils # Man Lymphocytes # (Manual) Monocytes # (Manual) PT INR D-Dimer POC ABG pH POC ABG pCO2 POC ABG pO2 Sodium Potassium Chloride Carbon Dioxide BUN 106 H Creatinine 3.9 H Glucose 137 H POC Glucose 131 H 126 H Lactic Acid Uric Acid Calcium 8.1 L Total Bilirubin AST ALT Total Creatine Kinase CK-MB (CK-2) CK-MB (CK-2) Rel Index Troponin T C-Reactive Protein NT-Pro-B Natriuret Pep > 20594 H Total Protein Albumin LDL Cholesterol Direct Urine WBC (Auto) 08/26/18 08/26/18 08/26/18 11:39 17:33 18:02 WBC RBC Hgb Hct MCV RDW Plt Count Lymph % (Auto) [place] % (Auto) Baso % (Auto) Lymph # Seg Neuts % (Manual) Lymphocytes % (Manual) Monocytes % (Manual) Basophils % (Manual) Nucleated RBC % Seg Neutrophils # Man Lymphocytes # (Manual) Monocytes # (Manual) PT INR D-Dimer POC ABG pH POC ABG pCO2 POC ABG pO2 58 L Sodium Potassium Chloride Carbon Dioxide BUN Creatinine Glucose POC Glucose 156 H 173 H Lactic Acid Uric Acid Calcium Total Bilirubin AST ALT Total Creatine Kinase CK-MB (CK-2) CK-MB (CK-2) Rel Index Troponin T C-Reactive Protein NT-Pro-B Natriuret Pep Total Protein Albumin LDL Cholesterol Direct Urine WBC (Auto) 08/26/18 08/27/18 08/27/18 23:12 04:59 11:51 WBC RBC Hgb Hct MCV RDW Plt Count Lymph % (Auto) [place] % (Auto) Baso % (Auto) Lymph # Seg Neuts % (Manual) Lymphocytes % (Manual) Monocytes % (Manual) Basophils % (Manual) Nucleated RBC % Seg Neutrophils # Man Lymphocytes # (Manual) Monocytes # (Manual) PT INR D-Dimer POC ABG pH 7.563 H POC ABG pCO2 < 30 L POC ABG pO2 69 L Sodium Potassium Chloride Carbon Dioxide BUN Creatinine Glucose POC Glucose 130 H 107 H Lactic Acid Uric Acid Calcium Total Bilirubin AST ALT Total Creatine Kinase CK-MB (CK-2) CK-MB (CK-2) Rel Index Troponin T C-Reactive Protein NT-Pro-B Natriuret Pep Total Protein Albumin LDL Cholesterol Direct Urine WBC (Auto) 08/27/18 08/27/18 08/27/18 11:58 11:58 11:58 WBC RBC 2.66 L Hgb 8.1 L Hct 24.7 L MCV RDW 16.7 H Plt Count Lymph % (Auto) [place] % (Auto) Baso % (Auto) Lymph # Seg Neuts % (Manual) Lymphocytes % (Manual) Monocytes % (Manual) Basophils % (Manual) Nucleated RBC % Seg Neutrophils # Man Lymphocytes # (Manual) Monocytes # (Manual) PT INR D-Dimer POC ABG pH POC ABG pCO2 POC ABG pO2 Sodium Potassium Chloride Carbon Dioxide BUN 71 H Creatinine 2.9 H Glucose POC Glucose Lactic Acid Uric Acid Calcium 7.6 L Total Bilirubin AST ALT Total Creatine Kinase CK-MB (CK-2) CK-MB (CK-2) Rel Index Troponin T C-Reactive Protein NT-Pro-B Natriuret Pep > 99644 H Total Protein 6.1 L Albumin 2.4 L LDL Cholesterol Direct Urine WBC (Auto) 08/28/18 08/28/18 08/28/18 04:38 04:49 04:49 WBC RBC 2.65 L Hgb 8.3 L Hct 25.3 L MCV 96 H RDW 17.3 H Plt Count 83 L Lymph % (Auto) [place] % (Auto) Baso % (Auto) Lymph # Seg Neuts % (Manual) Lymphocytes % (Manual) Monocytes % (Manual) Basophils % (Manual) Nucleated RBC % Seg Neutrophils # Man Lymphocytes # (Manual) Monocytes # (Manual) PT INR D-Dimer POC ABG pH POC ABG pCO2 POC ABG pO2 112 H Sodium Potassium Chloride Carbon Dioxide BUN Creatinine Glucose POC Glucose Lactic Acid Uric Acid Calcium Total Bilirubin AST ALT Total Creatine Kinase CK-MB (CK-2) CK-MB (CK-2) Rel Index Troponin T C-Reactive Protein NT-Pro-B Natriuret Pep > 39345 H Total Protein Albumin LDL Cholesterol Direct Urine WBC (Auto) 08/28/18 08/28/18 08/29/18 04:49 14:24 00:11 WBC RBC Hgb Hct MCV RDW Plt Count Lymph % (Auto) [place] % (Auto) Baso % (Auto) Lymph # Seg Neuts % (Manual) Lymphocytes % (Manual) Monocytes % (Manual) Basophils % (Manual) Nucleated RBC % Seg Neutrophils # Man Lymphocytes # (Manual) Monocytes # (Manual) PT INR D-Dimer POC ABG pH 7.278 L POC ABG pCO2 57.9 H POC ABG pO2 79 L Sodium Potassium Chloride Carbon Dioxide BUN 69 H Creatinine 2.4 H Glucose POC Glucose 171 H Lactic Acid Uric Acid Calcium 7.7 L Total Bilirubin AST ALT Total Creatine Kinase CK-MB (CK-2) CK-MB (CK-2) Rel Index Troponin T C-Reactive Protein NT-Pro-B Natriuret Pep Total Protein 5.4 L Albumin 2.2 L LDL Cholesterol Direct Urine WBC (Auto) 08/29/18 08/29/18 08/29/18 04:39 05:35 05:35 WBC 13.6 H RBC 3.09 L Hgb 9.4 L Hct 29.5 L MCV 96 H RDW 17.9 H Plt Count 127 L Lymph % (Auto) [place] % (Auto) Baso % (Auto) Lymph # Seg Neuts % (Manual) Lymphocytes % (Manual) Monocytes % (Manual) Basophils % (Manual) Nucleated RBC % Seg Neutrophils # Man Lymphocytes # (Manual) Monocytes # (Manual) PT INR D-Dimer POC ABG pH 7.312 L POC ABG pCO2 57.6 H POC ABG pO2 79 L Sodium Potassium Chloride Carbon Dioxide BUN 42 H Creatinine 1.9 H Glucose 107 H POC Glucose Lactic Acid Uric Acid Calcium Total Bilirubin AST ALT Total Creatine Kinase CK-MB (CK-2) CK-MB (CK-2) Rel Index Troponin T C-Reactive Protein NT-Pro-B Natriuret Pep Total Protein Albumin LDL Cholesterol Direct Urine WBC (Auto) 08/29/18 08/29/18 08/29/18 05:48 11:37 15:32 WBC RBC Hgb Hct MCV RDW Plt Count Lymph % (Auto) [place] % (Auto) Baso % (Auto) Lymph # Seg Neuts % (Manual) Lymphocytes % (Manual) Monocytes % (Manual) Basophils % (Manual) Nucleated RBC % Seg Neutrophils # Man Lymphocytes # (Manual) Monocytes # (Manual) PT INR D-Dimer POC ABG pH POC ABG pCO2 47.0 H POC ABG pO2 78 L Sodium Potassium Chloride Carbon Dioxide BUN Creatinine Glucose POC Glucose 114 H 116 H Lactic Acid Uric Acid Calcium Total Bilirubin AST ALT Total Creatine Kinase CK-MB (CK-2) CK-MB (CK-2) Rel Index Troponin T C-Reactive Protein NT-Pro-B Natriuret Pep Total Protein Albumin LDL Cholesterol Direct Urine WBC (Auto) 08/29/18 08/30/18 08/30/18 17:28 00:17 04:41 WBC RBC Hgb Hct MCV RDW Plt Count Lymph % (Auto) [place] % (Auto) Baso % (Auto) Lymph # Seg Neuts % (Manual) Lymphocytes % (Manual) Monocytes % (Manual) Basophils % (Manual) Nucleated RBC % Seg Neutrophils # Man Lymphocytes # (Manual) Monocytes # (Manual) PT INR D-Dimer POC ABG pH POC ABG pCO2 48.1 H POC ABG pO2 Sodium Potassium Chloride Carbon Dioxide BUN Creatinine Glucose POC Glucose 174 H 132 H Lactic Acid Uric Acid Calcium Total Bilirubin AST ALT Total Creatine Kinase CK-MB (CK-2) CK-MB (CK-2) Rel Index Troponin T C-Reactive Protein NT-Pro-B Natriuret Pep Total Protein Albumin LDL Cholesterol Direct Urine WBC (Auto) 08/30/18 08/30/18 08/30/18 05:17 05:34 06:10 WBC RBC 2.68 L Hgb 8.2 L Hct 25.6 L MCV 96 H RDW 17.2 H Plt Count 118 L Lymph % (Auto) [place] % (Auto) Baso % (Auto) Lymph # Seg Neuts % (Manual) Lymphocytes % (Manual) Monocytes % (Manual) Basophils % (Manual) Nucleated RBC % Seg Neutrophils # Man Lymphocytes # (Manual) Monocytes # (Manual) PT INR D-Dimer POC ABG pH POC ABG pCO2 POC ABG pO2 Sodium Potassium Chloride Carbon Dioxide BUN 54 H Creatinine 2.4 H Glucose 120 H POC Glucose 141 H Lactic Acid Uric Acid Calcium Total Bilirubin AST ALT Total Creatine Kinase CK-MB (CK-2) CK-MB (CK-2) Rel Index Troponin T C-Reactive Protein NT-Pro-B Natriuret Pep Total Protein Albumin LDL Cholesterol Direct Urine WBC (Auto) 08/30/18 08/30/18 08/30/18 13:11 18:11 23:55 WBC RBC Hgb Hct MCV RDW Plt Count Lymph % (Auto) [place] % (Auto) Baso % (Auto) Lymph # Seg Neuts % (Manual) Lymphocytes % (Manual) Monocytes % (Manual) Basophils % (Manual) Nucleated RBC % Seg Neutrophils # Man Lymphocytes # (Manual) Monocytes # (Manual) PT INR D-Dimer POC ABG pH POC ABG pCO2 POC ABG pO2 Sodium Potassium Chloride Carbon Dioxide BUN Creatinine Glucose POC Glucose 167 H 144 H 144 H Lactic Acid Uric Acid Calcium Total Bilirubin AST ALT Total Creatine Kinase CK-MB (CK-2) CK-MB (CK-2) Rel Index Troponin T C-Reactive Protein NT-Pro-B Natriuret Pep Total Protein Albumin LDL Cholesterol Direct Urine WBC (Auto) 08/31/18 08/31/18 08/31/18 05:07 05:07 05:44 WBC RBC 2.62 L Hgb 8.1 L Hct 25.0 L MCV 96 H RDW 17.5 H Plt Count 128 L Lymph % (Auto) [place] % (Auto) Baso % (Auto) Lymph # Seg Neuts % (Manual) Lymphocytes % (Manual) Monocytes % (Manual) Basophils % (Manual) Nucleated RBC % Seg Neutrophils # Man Lymphocytes # (Manual) Monocytes # (Manual) PT INR D-Dimer POC ABG pH POC ABG pCO2 POC ABG pO2 Sodium Potassium Chloride Carbon Dioxide BUN 58 H Creatinine 2.3 H Glucose 103 H POC Glucose 109 H Lactic Acid Uric Acid Calcium Total Bilirubin AST ALT Total Creatine Kinase CK-MB (CK-2) CK-MB (CK-2) Rel Index Troponin T C-Reactive Protein NT-Pro-B Natriuret Pep Total Protein Albumin LDL Cholesterol Direct Urine WBC (Auto) 08/31/18 08/31/18 08/31/18 11:26 13:54 19:05 WBC RBC Hgb Hct MCV RDW Plt Count Lymph % (Auto) [place] % (Auto) Baso % (Auto) Lymph # Seg Neuts % (Manual) Lymphocytes % (Manual) Monocytes % (Manual) Basophils % (Manual) Nucleated RBC % Seg Neutrophils # Man Lymphocytes # (Manual) Monocytes # (Manual) PT INR D-Dimer POC ABG pH POC ABG pCO2 POC ABG pO2 Sodium Potassium Chloride Carbon Dioxide BUN Creatinine Glucose POC Glucose 117 H 186 H Lactic Acid Uric Acid 9.6 H Calcium Total Bilirubin AST ALT Total Creatine Kinase CK-MB (CK-2) CK-MB (CK-2) Rel Index Troponin T C-Reactive Protein NT-Pro-B Natriuret Pep Total Protein Albumin LDL Cholesterol Direct Urine WBC (Auto) 08/31/18 09/01/18 09/01/18 23:50 06:27 09:21 WBC RBC 2.74 L Hgb 8.6 L Hct 25.8 L MCV RDW 17.3 H Plt Count Lymph % (Auto) [place] % (Auto) Baso % (Auto) Lymph # Seg Neuts % (Manual) Lymphocytes % (Manual) Monocytes % (Manual) Basophils % (Manual) Nucleated RBC % Seg Neutrophils # Man Lymphocytes # (Manual) Monocytes # (Manual) PT INR D-Dimer POC ABG pH POC ABG pCO2 POC ABG pO2 Sodium Potassium Chloride Carbon Dioxide BUN Creatinine Glucose POC Glucose 141 H 62 L Lactic Acid Uric Acid Calcium Total Bilirubin AST ALT Total Creatine Kinase CK-MB (CK-2) CK-MB (CK-2) Rel Index Troponin T C-Reactive Protein NT-Pro-B Natriuret Pep Total Protein Albumin LDL Cholesterol Direct Urine WBC (Auto) 09/01/18 09/01/18 09/01/18 09:21 12:27 17:51 WBC RBC Hgb Hct MCV RDW Plt Count Lymph % (Auto) [place] % (Auto) Baso % (Auto) Lymph # Seg Neuts % (Manual) Lymphocytes % (Manual) Monocytes % (Manual) Basophils % (Manual) Nucleated RBC % Seg Neutrophils # Man Lymphocytes # (Manual) Monocytes # (Manual) PT INR D-Dimer POC ABG pH POC ABG pCO2 POC ABG pO2 Sodium Potassium 3.0 L D Chloride 109.8 H Carbon Dioxide BUN 45 H Creatinine 1.7 H Glucose POC Glucose 106 H 108 H Lactic Acid Uric Acid Calcium 7.1 L D Total Bilirubin AST ALT Total Creatine Kinase CK-MB (CK-2) CK-MB (CK-2) Rel Index Troponin T C-Reactive Protein NT-Pro-B Natriuret Pep Total Protein Albumin LDL Cholesterol Direct Urine WBC (Auto) 09/02/18 09/02/18 09/02/18 05:16 05:16 12:01 WBC RBC 2.60 L Hgb 8.1 L Hct 24.8 L MCV 95 H RDW 17.1 H Plt Count Lymph % (Auto) [place] % (Auto) Baso % (Auto) Lymph # Seg Neuts % (Manual) Lymphocytes % (Manual) Monocytes % (Manual) Basophils % (Manual) Nucleated RBC % Seg Neutrophils # Man Lymphocytes # (Manual) Monocytes # (Manual) PT INR D-Dimer POC ABG pH POC ABG pCO2 POC ABG pO2 Sodium Potassium Chloride Carbon Dioxide BUN 49 H Creatinine 1.8 H Glucose 107 H POC Glucose 124 H Lactic Acid Uric Acid Calcium 8.1 L Total Bilirubin AST ALT Total Creatine Kinase CK-MB (CK-2) CK-MB (CK-2) Rel Index Troponin T C-Reactive Protein NT-Pro-B Natriuret Pep Total Protein Albumin LDL Cholesterol Direct Urine WBC (Auto) 09/02/18 09/02/18 09/03/18 18:38 23:12 08:22 WBC RBC Hgb Hct MCV RDW Plt Count Lymph % (Auto) [place] % (Auto) Baso % (Auto) Lymph # Seg Neuts % (Manual) Lymphocytes % (Manual) Monocytes % (Manual) Basophils % (Manual) Nucleated RBC % Seg Neutrophils # Man Lymphocytes # (Manual) Monocytes # (Manual) PT INR D-Dimer POC ABG pH POC ABG pCO2 POC ABG pO2 Sodium Potassium Chloride Carbon Dioxide BUN Creatinine Glucose POC Glucose 164 H 128 H 115 H Lactic Acid Uric Acid Calcium Total Bilirubin AST ALT Total Creatine Kinase CK-MB (CK-2) CK-MB (CK-2) Rel Index Troponin T C-Reactive Protein NT-Pro-B Natriuret Pep Total Protein Albumin LDL Cholesterol Direct Urine WBC (Auto) 09/03/18 09/03/18 09/03/18 11:48 16:37 20:48 WBC RBC Hgb Hct MCV RDW Plt Count Lymph % (Auto) [place] % (Auto) Baso % (Auto) Lymph # Seg Neuts % (Manual) Lymphocytes % (Manual) Monocytes % (Manual) Basophils % (Manual) Nucleated RBC % Seg Neutrophils # Man Lymphocytes # (Manual) Monocytes # (Manual) PT INR D-Dimer POC ABG pH POC ABG pCO2 POC ABG pO2 Sodium Potassium Chloride Carbon Dioxide BUN Creatinine Glucose POC Glucose 203 H 146 H 150 H Lactic Acid Uric Acid Calcium Total Bilirubin AST ALT Total Creatine Kinase CK-MB (CK-2) CK-MB (CK-2) Rel Index Troponin T C-Reactive Protein NT-Pro-B Natriuret Pep Total Protein Albumin LDL Cholesterol Direct Urine WBC (Auto) 09/04/18 09/04/18 09/04/18 08:29 12:08 13:32 WBC RBC Hgb Hct MCV RDW Plt Count Lymph % (Auto) [place] % (Auto) Baso % (Auto) Lymph # Seg Neuts % (Manual) Lymphocytes % (Manual) Monocytes % (Manual) Basophils % (Manual) Nucleated RBC % Seg Neutrophils # Man Lymphocytes # (Manual) Monocytes # (Manual) PT INR D-Dimer POC ABG pH POC ABG pCO2 POC ABG pO2 Sodium 136 L Potassium Chloride Carbon Dioxide BUN 42 H Creatinine 1.6 H Glucose 180 H POC Glucose 129 H 149 H Lactic Acid Uric Acid Calcium Total Bilirubin AST ALT Total Creatine Kinase CK-MB (CK-2) CK-MB (CK-2) Rel Index Troponin T C-Reactive Protein NT-Pro-B Natriuret Pep Total Protein Albumin LDL Cholesterol Direct Urine WBC (Auto) 09/04/18 09/05/18 09/05/18 16:33 07:03 07:03 WBC RBC 2.92 L Hgb 9.1 L Hct 27.4 L MCV RDW 17.3 H Plt Count Lymph % (Auto) [place] % (Auto) Baso % (Auto) Lymph # Seg Neuts % (Manual) 81.0 H Lymphocytes % (Manual) 7.0 L Monocytes % (Manual) 8.0 H Basophils % (Manual) Nucleated RBC % Seg Neutrophils # Man Lymphocytes # (Manual) 0.5 L Monocytes # (Manual) PT INR D-Dimer POC ABG pH POC ABG pCO2 POC ABG pO2 Sodium Potassium Chloride Carbon Dioxide BUN 40 H Creatinine Glucose 153 H POC Glucose 165 H Lactic Acid Uric Acid Calcium Total Bilirubin AST ALT Total Creatine Kinase CK-MB (CK-2) CK-MB (CK-2) Rel Index Troponin T C-Reactive Protein NT-Pro-B Natriuret Pep Total Protein Albumin LDL Cholesterol Direct Urine WBC (Auto) 09/05/18 09/05/18 09/05/18 08:00 11:51 21:20 WBC RBC Hgb Hct MCV RDW Plt Count Lymph % (Auto) [place] % (Auto) Baso % (Auto) Lymph # Seg Neuts % (Manual) Lymphocytes % (Manual) Monocytes % (Manual) Basophils % (Manual) Nucleated RBC % Seg Neutrophils # Man Lymphocytes # (Manual) Monocytes # (Manual) PT INR D-Dimer POC ABG pH POC ABG pCO2 POC ABG pO2 Sodium Potassium Chloride Carbon Dioxide BUN Creatinine Glucose POC Glucose 146 H 207 H 114 H Lactic Acid Uric Acid Calcium Total Bilirubin AST ALT Total Creatine Kinase CK-MB (CK-2) CK-MB (CK-2) Rel Index Troponin T C-Reactive Protein NT-Pro-B Natriuret Pep Total Protein Albumin LDL Cholesterol Direct Urine WBC (Auto) 09/06/18 09/06/18 09/06/18 06:42 06:42 11:38 WBC RBC 2.90 L Hgb 9.0 L Hct 27.0 L MCV RDW 17.4 H Plt Count 130 L Lymph % (Auto) [place] % (Auto) Baso % (Auto) Lymph # Seg Neuts % (Manual) 79.0 H Lymphocytes % (Manual) 6.0 L Monocytes % (Manual) 12.0 H Basophils % (Manual) 2.0 H Nucleated RBC % Seg Neutrophils # Man Lymphocytes # (Manual) 0.3 L Monocytes # (Manual) PT INR D-Dimer POC ABG pH POC ABG pCO2 POC ABG pO2 Sodium 136 L Potassium Chloride Carbon Dioxide BUN 39 H Creatinine Glucose 106 H POC Glucose 265 H Lactic Acid Uric Acid Calcium Total Bilirubin AST ALT Total Creatine Kinase CK-MB (CK-2) CK-MB (CK-2) Rel Index Troponin T C-Reactive Protein NT-Pro-B Natriuret Pep Total Protein Albumin LDL Cholesterol Direct Urine WBC (Auto) 09/06/18 09/06/18 09/07/18 16:37 20:55 05:12 WBC RBC 2.80 L Hgb 8.7 L Hct 26.5 L MCV 95 H RDW 17.7 H Plt Count Lymph % (Auto) 13.3 L [place] % (Auto) 14.2 H Baso % (Auto) 1.9 H Lymph # 0.7 L Seg Neuts % (Manual) Lymphocytes % (Manual) Monocytes % (Manual) Basophils % (Manual) Nucleated RBC % Seg Neutrophils # Man Lymphocytes # (Manual) Monocytes # (Manual) PT INR D-Dimer POC ABG pH POC ABG pCO2 POC ABG pO2 Sodium Potassium Chloride Carbon Dioxide BUN Creatinine Glucose POC Glucose 131 H 135 H Lactic Acid Uric Acid Calcium Total Bilirubin AST ALT Total Creatine Kinase CK-MB (CK-2) CK-MB (CK-2) Rel Index Troponin T C-Reactive Protein NT-Pro-B Natriuret Pep Total Protein Albumin LDL Cholesterol Direct Urine WBC (Auto) 09/07/18 09/07/18 05:12 11:28 WBC RBC Hgb Hct MCV RDW Plt Count Lymph % (Auto) [place] % (Auto) Baso % (Auto) Lymph # Seg Neuts % (Manual) Lymphocytes % (Manual) Monocytes % (Manual) Basophils % (Manual) Nucleated RBC % Seg Neutrophils # Man Lymphocytes # (Manual) Monocytes # (Manual) PT INR D-Dimer POC ABG pH POC ABG pCO2 POC ABG pO2 Sodium Potassium Chloride Carbon Dioxide BUN 36 H Creatinine Glucose POC Glucose 176 H Lactic Acid Uric Acid Calcium Total Bilirubin AST ALT Total Creatine Kinase CK-MB (CK-2) CK-MB (CK-2) Rel Index Troponin T C-Reactive Protein NT-Pro-B Natriuret Pep Total Protein Albumin LDL Cholesterol Direct Urine WBC (Auto) Allied health notes reviewed: nursing
--- NOTE | 2018-09-07 18:22 | Progress Note ---
Assessment and Plan Assessment and plan: #1 acute on chronic respiratory failure continue O2 nebulizers. Improving. Patient not be short of breath resting comfortably but he has O2 mask on today. Daily is not complaining of shortness of breath while lying flat.. #2 acute kidney injury stage III. Off hemodialysis now. He shouldn't creati nine remained stable despite off hemodialysis. Page 3 acute COPD exacerbation. We'll continue nebulizers antibiotics O2 continuously. Also prednisone as discharged. [facility] #3 pneumonia may be gram-negative nini continue current antibiotics per ID. #5. Sepsis resolved fever curve normal. Leukocytosis resolved. Pulseless electrical activity status post cardiorespiratory arrest. Patient stabilized. Started on beta renetta and aspirin. Supportive care. #6 seizure disorder EEG Normal 7 morbid obesity still awaiting group home placement. History Interval history: The patient's is at bedside no new concerns. Patient states he did not have a good night. When asked what was wrong he is sedated the lights and noise. No physical symptoms. Hospitalist Physical - Constitutional Vitals: Temp Pulse Resp BP Pulse Ox 98.3 F 92 H 20 156/78 99 09/06/18 23:26 09/07/18 11:18 09/07/18 10:35 09/06/18 23:26 09/07/18 10:40 General appearance: Present: no acute distress, other (intubated, chronically ill appearing) - EENT Eyes: Present: PERRL, EOM intact ENT: hearing intact, clear oral mucosa, dentition normal - Neck Neck: Present: supple, normal ROM. Absent: enlarged thyroid, masses or JVD, cervical LAD - Respiratory Respiratory effort: normal Respiratory: bilateral: CTA - Cardiovascular Rhythm: regular - Extremities Extremities: no ischemia, pulses intact, pulses symmetrical Extremity abnormal: edema Peripheral Pulses: within normal limits - Abdominal General gastrointestinal: soft, non-tender, tender, normal bowel sounds - Integumentary Integumentary: Present: clear, warm, dry - Psychiatric Psychiatric: appropriate mood/affect, intact judgment & insight, memory intact - Neurologic Neurologic: CNII-XII intact, focal deficits, moves all extremities Results - Labs CBC & Chem 7: 09/07/18 05:12 09/07/18 05:12 Labs: Laboratory Last Values WBC 4.9 K/mm3 (4.5-11.0) 09/07/18 05:12 RBC 2.80 M/mm3 (3.65-5.03) L 09/07/18 05:12 Hgb 8.7 gm/dl (11.8-15.2) L 09/07/18 05:12 Hct 26.5 % (35.5-45.6) L 09/07/18 05:12 MCV 95 fl (84-94) H 09/07/18 05:12 MCH 31 pg (28-32) 09/07/18 05:12 MCHC 33 % (32-34) 09/07/18 05:12 RDW 17.7 % (13.2-15.2) H 09/07/18 05:12 Plt Count 142 K/mm3 (140-440) 09/07/18 05:12 Lymph % (Auto) 13.3 % (13.4-35.0) L 09/07/18 05:12 [place] % (Auto) 14.2 % (0.0-7.3) H 09/07/18 05:12 Eos % (Auto) 2.1 % (0.0-4.3) 09/07/18 05:12 Baso % (Auto) 1.9 % (0.0-1.8) H 09/07/18 05:12 Lymph # 0.7 K/mm3 (1.2-5.4) L 09/07/18 05:12 [place] # 0.7 K/mm3 (0.0-0.8) 09/07/18 05:12 Eos # 0.1 K/mm3 (0.0-0.4) 09/07/18 05:12 Baso # 0.1 K/mm3 (0.0-0.1) 09/07/18 05:12 Add Manual Diff Complete 09/06/18 06:42 Total Counted 100 09/06/18 06:42 Seg Neutrophils % 68.5 % (40.0-70.0) 09/07/18 05:12 Seg Neuts % (Manual) 79.0 % (40.0-70.0) H 09/06/18 06:42 0 % 09/06/18 06:42 6.0 % (13.4-35.0) L 09/06/18 06:42 Reactive Lymphs % (Man) 0 % 09/06/18 06:42 12.0 % (0.0-7.3) H 09/06/18 06:42 1.0 % (0.0-4.3) 09/06/18 06:42 2.0 % (0.0-1.8) H 09/06/18 06:42 0 % 09/06/18 06:42 0 % 09/06/18 06:42 0 % 09/06/18 06:42 0 % 09/06/18 06:42 Nucleated RBC % Not Reportable 09/06/18 06:42 Seg Neutrophils # 3.4 K/mm3 (1.8-7.7) 09/07/18 05:12 Seg Neutrophils # Man 3.9 K/mm3 (1.8-7.7) 09/06/18 06:42 Band Neutrophils # 0.0 K/mm3 09/06/18 06:42 0.3 K/mm3 (1.2-5.4) L 09/06/18 06:42 Abs React Lymphs (Man) 0.0 K/mm3 09/06/18 06:42 0.6 K/mm3 (0.0-0.8) 09/06/18 06:42 0.0 K/mm3 (0.0-0.4) 09/06/18 06:42 0.1 K/mm3 (0.0-0.1) 09/06/18 06:42 0.0 K/mm3 09/06/18 06:42 0.0 K/mm3 09/06/18 06:42 0.0 K/mm3 09/06/18 06:42 Blast Cells # 0.0 K/mm3 09/06/18 06:42 WBC Morphology Not Reportable 09/06/18 06:42 Hypersegmented Neuts Not Reportable 09/06/18 06:42 Hyposegmented Neuts Not Reportable 09/06/18 06:42 Hypogranular Neuts Not Reportable 09/06/18 06:42 Not Reportable 09/06/18 06:42 Not Reportable 09/06/18 06:42 Not Reportable 09/06/18 06:42 Not Reportable 09/06/18 06:42 Not Reportable 09/06/18 06:42 Not Reportable 09/06/18 06:42 Consistent w auto 09/06/18 06:42 Not Reportable 09/06/18 06:42 Plt Clumps, EDTA Not Reportable 09/06/18 06:42 Not Reportable 09/06/18 06:42 Not Reportable 09/06/18 06:42 Not Reportable 09/06/18 06:42 Plt Morphology Comment Not Reportable 09/06/18 06:42 RBC Morphology Not Reportable 09/06/18 06:42 Dimorphic RBCs Not Reportable 09/06/18 06:42 Not Reportable 09/06/18 06:42 Not Reportable 09/06/18 06:42 Not Reportable 09/06/18 06:42 1+ 09/06/18 06:42 Not Reportable 09/06/18 06:42 1+ 09/06/18 06:42 Not Reportable 09/06/18 06:42 Not Reportable 09/06/18 06:42 Not Reportable 09/06/18 06:42 Not Reportable 09/06/18 06:42 Not Reportable 09/06/18 06:42 Not Reportable 09/06/18 06:42 Not Reportable 09/06/18 06:42 Not Reportable 09/06/18 06:42 Not Reportable 09/06/18 06:42 Not Reportable 09/06/18 06:42 Not Reportable 09/06/18 06:42 Not Reportable 09/06/18 06:42 Not Reportable 09/06/18 06:42 Acanthocytes (Spur) Not Reportable 09/06/18 06:42 Rouleaux Not Reportable 09/06/18 06:42 Not Reportable 09/06/18 06:42 Not Reportable 09/06/18 06:42 Not Reportable 09/06/18 06:42 Not Reportable 09/06/18 06:42 Hem Pathologist Commnt No 09/06/18 06:42 PT 15.6 Sec. (12.2-14.9) H 08/25/18 16:43 INR 1.27 (0.87-1.13) H 08/25/18 16:43 APTT 30.8 Sec. (24.2-36.6) 08/21/18 04:42 1978.25 ng/mlDDU (0-234) H 08/24/18 13:41 POC ABG pH 7.410 (7.35-7.45) 08/30/18 13:35 POC ABG pCO2 41.4 (35-45) 08/30/18 13:35 POC ABG pO2 99 (80-105) 08/30/18 13:35 POC ABG HCO3 26.2 (22-26 mml/L) 08/30/18 13:35 POC ABG Total CO2 27 (23-27mmol/L) 08/30/18 13:35 POC ABG O2 Sat 98 08/30/18 13:35 POC ABG Base Excess 2 ((-2) - (+3)mmol/L) 08/30/18 13:35 30 % 08/30/18 13:35 Sodium 137 mmol/L (137-145) 09/07/18 05:12 Potassium 4.8 mmol/L (3.6-5.0) 09/07/18 05:12 Chloride 101.3 mmol/L (98-107) 09/07/18 05:12 Carbon Dioxide 26 mmol/L (22-30) 09/07/18 05:12 15 mmol/L 09/07/18 05:12 BUN 36 mg/dL (9-20) H 09/07/18 05:12 1.5 mg/dL (0.8-1.5) 09/07/18 05:12 Estimated GFR 46 ml/min 09/07/18 05:12 24 % 09/07/18 05:12 Glucose 100 mg/dL (75-100) 09/07/18 05:12 POC Glucose 131 (70-105) H 09/07/18 15:32 317 Mosm/kg 08/31/18 13:54 Lactic Acid 1.30 mmol/L (0.7-2.0) 08/21/18 20:50 9.6 mg/dL (3.5-7.6) H 08/31/18 13:54 Calcium 8.7 mg/dL (8.4-10.2) 09/07/18 05:12 Magnesium 2.00 mg/dL (1.7-2.3) 09/02/18 05:16 0.60 mg/dL (0.1-1.2) 08/28/18 04:49 AST 27 units/L (5-40) 08/28/18 04:49 ALT 12 units/L (7-56) 08/28/18 04:49 87 units/L (35-129) 08/28/18 04:49 222 units/L (55-170) H 08/21/18 10:45 CK-MB (CK-2) 9.2 ng/mL (0.0-4.0) H 08/21/18 10:45 CK-MB (CK-2) Rel Index 4.1 (0-4) H 08/21/18 10:45 0.044 ng/mL (0.00-0.029) H D 08/21/18 10:45 9.00 mg/dL (0.00-1.30) H 08/24/18 13:41 NT-Pro-B Natriuret Pep > 32709 pg/mL (0-900) H 08/28/18 04:49 5.4 g/dL (6.3-8.2) L 08/28/18 04:49 2.2 g/dL (3.9-5) L 08/28/18 04:49 0.7 % 08/28/18 04:49 Triglycerides 87 mg/dL (2-149) 08/21/18 04:42 Cholesterol 93 mg/dL (50-199) 08/21/18 04:42 44 mg/dL (50-130) L 08/21/18 04:42 41 mg/dL (40-59) 08/21/18 04:42 2.26 % 08/21/18 04:42 Yellow (Yellow) 08/21/18 15:03 Slightly-cloudy (Clear) 08/21/18 15:03 5.0 (5.0-7.0) 08/21/18 15:03 Ur Specific [place] 1.015 (1.003-1.030) 08/21/18 15:03 30 mg/dl mg/dL (Negative) 08/21/18 15:03 Neg mg/dL (Negative) 08/21/18 15:03 Neg mg/dL (Negative) 08/21/18 15:03 Mod (Negative) 08/21/18 15:03 Neg (Negative) 08/21/18 15:03 Neg (Negative) 08/21/18 15:03 < 2.0 mg/dL (<2.0) 08/21/18 15:03 Ur Leukocyte Esterase Tr (Negative) 08/21/18 15:03 13.0 /HPF (0.0-6.0) H 08/21/18 15:03 15.0 /HPF (0.0-6.0) 08/21/18 15:03 U Epithel Cells (Auto) 1.0 /HPF (0-13.0) 08/21/18 15:03 1+ /HPF (Negative) 08/21/18 15:03 Few /HPF 08/21/18 15:03 Random Vancomycin 10.5 ug/mL (0-40.0) 08/26/18 05:53 Levetiracetam 25.7 mcg/mL (12.0-46.0) 08/26/18 13:42 Hepatitis A IgM Ab Non-reactive (NonReactive) 08/27/18 23:25 Hep Bs Antigen Non-reactive (Negative) 08/27/18 23:25 Hep B Core IgM Ab Non-reactive (NonReactive) 08/27/18 23:25 Non-reactive (NonReactive) 08/27/18 23:25 Active Medications - Current Medications Current Medications: Generic Name Dose Route Start Last Admin Trade Name Freq PRN Reason Stop Dose Admin Acetaminophen 650 mg 08/21/18 06:31 09/01/18 21:12 Tylenol PO 650 mg Q4H PRN Administration Pain MILD(1-3)/Fever >100.5/COOK Albuterol/Ipratropium 1 ampul 08/24/18 20:00 09/07/18 10:35 Duoneb *Not For Prn Use* IH 1 ampul BIDRT LUIS Administration Lipase/Protease/Amylase 1 each 08/26/18 12:07 Pancreamaris [place] 10,500 Unit FEEDTUBE PRN PRN For Clogged Feeding Tube Arformoterol Tartrate 15 mcg 08/24/18 20:00 09/07/18 10:35 Brovana Nebu IH 15 mcg Q12HRT LUIS Administration Bisacodyl 10 mg 09/02/18 12:42 Dulcolax NV QDAY PRN Constipation Budesonide 0.5 mg 08/24/18 20:00 09/07/18 10:35 Pulmicort IH 0.5 mg Q12HRT LUIS Administration Dextrose 50 ml 08/21/18 06:48 D50w (25gm) Syringe IV PRN PRN Hypoglycemia Heparin Sodium (Porcine) 5,000 unit 08/22/18 10:00 09/07/18 11:19 Heparin SUB-Q 5,000 unit Q12HR LUIS Administration Hydralazine HCl 25 mg 08/30/18 22:00 09/07/18 05:10 Apresoline PO 25 mg Q8HR LUIS Administration Insulin Human Lispro 0 unit 08/31/18 22:00 09/07/18 11:30 Humalog SUB-Q 2 unit ACHS LUIS Administration Protocol Levetiracetam 750 mg 09/04/18 22:00 09/07/18 10:00 Keppra PO 750 mg BID LUIS Administration Metoclopramide HCl 10 mg 09/05/18 18:35 09/06/18 12:00 Reglan IV 10 mg Q6H PRN Administration Nausea And Vomiting Morphine Sulfate 2 mg 08/26/18 14:24 08/30/18 01:40 Morphine IV 2 mg Q6H PRN Administration Pain, Moderate (4-6) Ondansetron HCl 4 mg 08/21/18 06:31 Zofran IV Q8H PRN Nausea And Vomiting Sodium Chloride 10 ml 08/21/18 10:00 09/07/18 11:20 Sodium Chloride Flush Syringe 10 Ml IV 10 ml BID LUIS Administration Spironolactone 25 mg 09/03/18 11:00 09/07/18 11:18 Aldactone PO 25 mg QDAY LUIS Administration Nutrition/Malnutrition Assess - Dietary Evaluation Nutrition/Malnutrition Findings: Nutrition Notes Start: 08/21/18 16:58 Freq: Status: Active Protocol: Document 09/05/18 14:18 TUAN (Rec: 09/05/18 14:30 TUAN [email or web address]) Nutrition Notes Initial or Follow up Reassessment Current Diagnosis Heart Failure Other Pertinent Diagnosis COPD exacerbation, pneu, s/p cardiac arrest Current Diet Cardiac/Consistent CHO with chopped meats + Glucerna daily Labs/Tests Reviewed Pertinent Medications Reviewed Height 5 ft 6 in Weight 146.3 kg [place] Body Weight (kg) 64.54 BMI 52.0 Subjective/Other Information PT has consumed 75% of meals since last assessment. He drinks ONS daily as well. Percent of energy/protein needs met: 97% energy 70% pro (includes ONS) Burn Absent Trauma Absent #1 Nutrition Diagnosis Inadequate oral intake As Evidenced by Signs and Symptoms PO intake meeting >50% energy and pro needs Diagnosis Progress(for reassessment Improved documentation) Is patient on ventilator? No Is Patient Ambulatory and/or Out of Bed No REE-([place]-confined to bed) 2592.060 Kcal/Kg value to use for calculation 12 Approximate Energy Requirements Using 1756 kcal/Kg Additional Notes Pro needs 1-1.2g/kg adjBW: 105-127g/day Fluid needs 1ml/kcal Nutrition Intervention Change Diet Order: Continue current Add Supplement/Snack (indicate name/kcal Glucerna Chocolate, [place] /protein ) 1 daily Provides kCal: 220 Provides Protein (gm) 10 Goal #1 Meet at least 75% of kcal and protein needs via PO intakes Follow-Up By: 09/12/18 Additional Comments F/U: stable intakes, wt
[2018-09-08] MEDS: APRESOLINE PO SCH ×3 (05:49→21:57)
[2018-09-08 06:37] LABS: Basophils # (Auto) 0.1 K/mm3 (0.0-0.1); Basophils % (Auto) 1.9 % (0.0-1.8); Eosinophils # (Auto) 0.1 K/mm3 (0.0-0.4); Hematocrit 26.9 % (35.5-45.6); Hemoglobin 8.5 gm/dl (11.8-15.2); Lymphocytes # (Auto) 0.7 K/mm3 (1.2-5.4); Lymphocytes % (Auto) 13.1 % (13.4-35.0); Mean Corpuscular HGB Conc 32 % (32-34); Mean Corpuscular Hemoglobin 31 pg (28-32); Mean Corpuscular Volume 99 fl (84-94); Monocytes # (Auto) 0.8 K/mm3 (0.0-0.8); Monocytes % (Auto) 15.7 % (0.0-7.3); Platelet Count 136 K/mm3 (140-440); Red Blood Count 2.72 M/mm3 (3.65-5.03)
[2018-09-08 07:06] LABS: Calcium 8.5 mg/dL (8.4-10.2)
[2018-09-08] MEDS: DUONEB *Not for PRN Use IH SCH ×2 (07:36→21:31)
[2018-09-08] MEDS: PULMICORT IH SCH ×2 (07:36→21:29)
[2018-09-08] MEDS: BROVANA NEBU IH SCH ×2 (07:36→21:29)
[2018-09-08] MEDS ORDERED: LEXISCAN IV ONE ×2 (07:46→08:20)
--- NOTE | 2018-09-08 09:22 | Progress Note ---
Assessment and Plan Impression: * KHRIS on ckd * s/p Cardiopulmonary arrest with ROSC * Acute on chronic hypoxemic respiratory failure on MVS * Lactic acidosis * Acute metabolic/respiratory acidosis * Sepsis probably secondary to aspiration PNA * COPD * Acute metabolic-toxic encephalopathy * NSTEMI * Type 2 DM Plan: * antibiotics per primary team * daily lytes * renal diet * Serum creatinine seems to have leveled off. Serum creatinine is down to 1.3. His Vas-Cath has been removed. * Patient has history of stage III chronic kidney disease. [facility]. * No further indication for dialysis at this time. * Continue to monitor SCr and UOP . Remains nonoliguric . * He currently has indwelling Madison catheter in place. * Strict I/O * Avoid nephrotoxins * Serum potassium noted to be high normal at 5.2. Discontinue Spironolactone. Adjust dose of hydralazine. * Discussed with patient and his daughter at bedside Subjective Date of service: 09/08/18 Principal diagnosis: s/p cardiac arrest; severe sepsis; acute hypoxemic- hypercapnic resp failure Interval history: Patient is comfortable. Denies any shortness of breath. No nausea , vomiting or diarrhea. Objective - Vital Signs Vital signs: Vital Signs - 12hr 09/07/18 09/07/18 09/07/18 21:23 21:24 21:41 Temperature Pulse Rate Pulse Rate [ 102 H 91 H Anterior Right Upper Lobe] Respiratory Rate Respiratory 20 20 Rate [Anterior Right Upper Lobe] Blood Pressure O2 Sat by Pulse 98 Oximetry 09/07/18 09/08/18 09/08/18 23:13 00:00 04:08 Temperature 97.9 F 98.1 F Pulse Rate 99 H 91 H Pulse Rate [ Anterior Right Upper Lobe] Respiratory 22 21 Rate Respiratory Rate [Anterior Right Upper Lobe] Blood Pressure 138/69 127/50 O2 Sat by Pulse 98 Oximetry 09/08/18 07:32 Temperature 97.6 F Pulse Rate 84 Pulse Rate [ Anterior Right Upper Lobe] Respiratory 18 Rate Respiratory Rate [Anterior Right Upper Lobe] Blood Pressure 141/56 O2 Sat by Pulse 96 Oximetry - General Appearance General appearance: well-developed, well-nourished, appears stated age, obese EENT: PERRL, mucous membranes moist Neck: no JVD, no thyromegaly, no carotid bruit, supple Respiratory: Present: Clear to Ascultation Cardiology: regular, normal heart rate, S1S2, no murmurs Gastrointestinal: normal, normoactive bowel sounds Integumentary: other (no edema) - Lab 09/08/18 05:23 09/08/18 05:23 Most recent lab results Calcium 8.5 mg/dL (8.4-10.2) 09/08/18 05:23 Magnesium 2.00 mg/dL (1.7-2.3) 09/02/18 05:16 Medications & Allergies - Medications Allergies/Adverse Reactions: Allergies Penicillins Allergy (Verified 08/21/18 04:49) Unknown -cillins Allergy (Uncoded 08/21/18 04:49) Unknown Home Medications: Home Medications Medication Instructions Recorded Confirmed Last Taken Type AtorvaSTATin [Lipitor] 10 mg PO QHS 08/21/18 08/21/18 Unknown History Ferrous Sulfate [Feosol] 325 mg PO QDAY 08/21/18 08/21/18 Unknown History Melatonin [Melatonin 10MG CAP] 10 mg PO DAILY 08/21/18 08/21/18 Unknown History NIFEdipine [Nifedipine ER] 60 mg PO BID 08/21/18 08/21/18 Unknown History Sennosides Tab [Senokot] 1 tab PO HS 08/21/18 08/21/18 Unknown History Tamsulosin [Flomax] 2 cap PO HS 08/21/18 08/21/18 Unknown History Torsemide [Demadex] 20 mg PO DAILY 08/21/18 08/21/18 Unknown History Venlafaxine HCl [Venlafaxin ER] 75 mg PO QDAY 08/21/18 08/21/18 Unknown History buPROPion [Wellbutrin] 100 mg PO DAILY 08/21/18 08/21/18 Unknown History Active Medications: Generic Name Dose Route Start Last Admin Trade Name Freq PRN Reason Stop Dose Admin Acetaminophen 650 mg 08/21/18 06:31 09/01/18 21:12 Tylenol PO 650 mg Q4H PRN Administration Pain MILD(1-3)/Fever >100.5/COOK Albuterol/Ipratropium 1 ampul 08/24/18 20:00 09/08/18 07:36 Duoneb *Not For Prn Use* IH 1 ampul BIDRT LUIS Administration Lipase/Protease/Amylase 1 each 08/26/18 12:[address] 10,500 Unit FEEDTUBE PRN PRN For Clogged Feeding Tube Arformoterol Tartrate 15 mcg 08/24/18 20:00 09/08/18 07:36 Brovana Nebu IH 15 mcg Q12HRT LUIS Administration Bisacodyl 10 mg 09/02/18 12:42 Dulcolax DC QDAY PRN Constipation Budesonide 0.5 mg 08/24/18 20:00 09/08/18 07:36 Pulmicort IH 0.5 mg Q12HRT LUIS Administration Dextrose 50 ml 08/21/18 06:48 D50w (25gm) Syringe IV PRN PRN Hypoglycemia Heparin Sodium (Porcine) 5,000 unit 08/22/18 10:00 09/07/18 21:34 Heparin SUB-Q 5,000 unit Q12HR LUIS Administration Hydralazine HCl 25 mg 08/30/18 22:00 09/08/18 05:49 Apresoline PO 25 mg Q8HR LUIS Administration Insulin Human Lispro 0 unit 08/31/18 22:00 09/07/18 21:50 Humalog SUB-Q 2 unit ACHS LUIS Administration Protocol Levetiracetam 750 mg 09/04/18 22:00 09/07/18 21:34 Keppra PO 750 mg BID LUIS Administration Metoclopramide HCl 10 mg 09/05/18 18:35 09/06/18 12:00 Reglan IV 10 mg Q6H PRN Administration Nausea And Vomiting Morphine Sulfate 2 mg 08/26/18 14:24 08/30/18 01:40 Morphine IV 2 mg Q6H PRN Administration Pain, Moderate (4-6) Ondansetron HCl 4 mg 08/21/18 06:31 Zofran IV Q8H PRN Nausea And Vomiting Sodium Chloride 10 ml 08/21/18 10:00 09/07/18 21:36 Sodium Chloride Flush Syringe 10 Ml IV 10 ml BID LUIS Administration Spironolactone 25 mg 09/03/18 11:00 09/07/18 11:18 Aldactone PO 25 mg QDAY LUIS Administration
--- NOTE | 2018-09-08 09:26 | Progress Note ---
Assessment and Plan Assessment and plan: Acute on chronic respiratory failure. Etiology secondary to COPD exacerbation. Continue O2 and nebulizers. Improving. Acute kidney injury on CKD stage III. Off hemodialysis now. Creatinine remaine d stable despite off hemodialysis. Acute COPD exacerbation. We'll continue nebulizers, antibiotics and O2 continuously. Also prednisone at discharged. Patient doing well. Awaiting usp placement Pneumonia may be gram-negative nini continue current antibiotics per ID. Sepsis. Improved. Leukocytosis resolved. Pulseless electrical activity status post cardiorespiratory arrest. Patient stabilized. Started on beta renetta and aspirin. Supportive care. Seizure disorder. EEG Normal Morbid obesity. supportive care Disposition. Awaiting jail placement. History Interval history: No new issues overnight. Hospitalist Physical - Constitutional Vitals: Temp Pulse Resp BP Pulse Ox 97.6 F 84 18 141/56 96 09/08/18 07:32 09/08/18 07:32 09/08/18 07:32 09/08/18 07:32 09/08/18 07:32 General appearance: Present: no acute distress, other (intubated, chronically ill appearing) - EENT Eyes: Present: PERRL, EOM intact ENT: hearing intact, clear oral mucosa, dentition normal - Neck Neck: Present: supple, normal ROM - Respiratory Respiratory effort: normal Respiratory: bilateral: CTA - Cardiovascular Rhythm: regular Heart Sounds: Present: S1 & S2. Absent: gallop, rub - Extremities Extremities: no ischemia, No edema, Full ROM - Abdominal General gastrointestinal: soft, non-tender, non-distended, normal bowel sounds - Integumentary Integumentary: Present: clear, warm, dry - Neurologic Neurologic: CNII-XII intact, moves all extremities Results - Labs CBC & Chem 7: 09/08/18 05:23 09/08/18 05:23 Labs: Laboratory Last Values WBC 5.3 K/mm3 (4.5-11.0) 09/08/18 05:23 RBC 2.72 M/mm3 (3.65-5.03) L 09/08/18 05:23 Hgb 8.5 gm/dl (11.8-15.2) L 09/08/18 05:23 Hct 26.9 % (35.5-45.6) L 09/08/18 05:23 MCV 99 fl (84-94) H 09/08/18 05:23 MCH 31 pg (28-32) 09/08/18 05:23 MCHC 32 % (32-34) 09/08/18 05:23 RDW 18.0 % (13.2-15.2) H 09/08/18 05:23 Plt Count 136 K/mm3 (140-440) L 09/08/18 05:23 Lymph % (Auto) 13.1 % (13.4-35.0) L 09/08/18 05:23 [place] % (Auto) 15.7 % (0.0-7.3) H 09/08/18 05:23 Eos % (Auto) 2.0 % (0.0-4.3) 09/08/18 05:23 Baso % (Auto) 1.9 % (0.0-1.8) H 09/08/18 05:23 Lymph # 0.7 K/mm3 (1.2-5.4) L 09/08/18 05:23 [place] # 0.8 K/mm3 (0.0-0.8) 09/08/18 05:23 Eos # 0.1 K/mm3 (0.0-0.4) 09/08/18 05:23 Baso # 0.1 K/mm3 (0.0-0.1) 09/08/18 05:23 Add Manual Diff Complete 09/06/18 06:42 Total Counted 100 09/06/18 06:42 Seg Neutrophils % 67.3 % (40.0-70.0) 09/08/18 05:23 Seg Neuts % (Manual) 79.0 % (40.0-70.0) H 09/06/18 06:42 0 % 09/06/18 06:42 6.0 % (13.4-35.0) L 09/06/18 06:42 Reactive Lymphs % (Man) 0 % 09/06/18 06:42 12.0 % (0.0-7.3) H 09/06/18 06:42 1.0 % (0.0-4.3) 09/06/18 06:42 2.0 % (0.0-1.8) H 09/06/18 06:42 0 % 09/06/18 06:42 0 % 09/06/18 06:42 0 % 09/06/18 06:42 0 % 09/06/18 06:42 Nucleated RBC % Not Reportable 09/06/18 06:42 Seg Neutrophils # 3.6 K/mm3 (1.8-7.7) 09/08/18 05:23 Seg Neutrophils # Man 3.9 K/mm3 (1.8-7.7) 09/06/18 06:42 Band Neutrophils # 0.0 K/mm3 09/06/18 06:42 0.3 K/mm3 (1.2-5.4) L 09/06/18 06:42 Abs React Lymphs (Man) 0.0 K/mm3 09/06/18 06:42 0.6 K/mm3 (0.0-0.8) 09/06/18 06:42 0.0 K/mm3 (0.0-0.4) 09/06/18 06:42 0.1 K/mm3 (0.0-0.1) 09/06/18 06:42 0.0 K/mm3 09/06/18 06:42 0.0 K/mm3 09/06/18 06:42 0.0 K/mm3 09/06/18 06:42 Blast Cells # 0.0 K/mm3 09/06/18 06:42 WBC Morphology Not Reportable 09/06/18 06:42 Hypersegmented Neuts Not Reportable 09/06/18 06:42 Hyposegmented Neuts Not Reportable 09/06/18 06:42 Hypogranular Neuts Not Reportable 09/06/18 06:42 Not Reportable 09/06/18 06:42 Not Reportable 09/06/18 06:42 Not Reportable 09/06/18 06:42 Not Reportable 09/06/18 06:42 Not Reportable 09/06/18 06:42 Not Reportable 09/06/18 06:42 Consistent w auto 09/06/18 06:42 Not Reportable 09/06/18 06:42 Plt Clumps, EDTA Not Reportable 09/06/18 06:42 Not Reportable 09/06/18 06:42 Not Reportable 09/06/18 06:42 Not Reportable 09/06/18 06:42 Plt Morphology Comment Not Reportable 09/06/18 06:42 RBC Morphology Not Reportable 09/06/18 06:42 Dimorphic RBCs Not Reportable 09/06/18 06:42 Not Reportable 09/06/18 06:42 Not Reportable 09/06/18 06:42 Not Reportable 09/06/18 06:42 1+ 09/06/18 06:42 Not Reportable 09/06/18 06:42 1+ 09/06/18 06:42 Not Reportable 09/06/18 06:42 Not Reportable 09/06/18 06:42 Not Reportable 09/06/18 06:42 Not Reportable 09/06/18 06:42 Not Reportable 09/06/18 06:42 Not Reportable 09/06/18 06:42 Not Reportable 09/06/18 06:42 Not Reportable 09/06/18 06:42 Not Reportable 09/06/18 06:42 Not Reportable 09/06/18 06:42 Not Reportable 09/06/18 06:42 Not Reportable 09/06/18 06:42 Not Reportable 09/06/18 06:42 Acanthocytes (Spur) Not Reportable 09/06/18 06:42 Rouleaux Not Reportable 09/06/18 06:42 Not Reportable 09/06/18 06:42 Not Reportable 09/06/18 06:42 Not Reportable 09/06/18 06:42 Not Reportable 09/06/18 06:42 Hem Pathologist Commnt No 09/06/18 06:42 PT 15.6 Sec. (12.2-14.9) H 08/25/18 16:43 INR 1.27 (0.87-1.13) H 08/25/18 16:43 APTT 30.8 Sec. (24.2-36.6) 08/21/18 04:42 1978.25 ng/mlDDU (0-234) H 08/24/18 13:41 POC ABG pH 7.410 (7.35-7.45) 08/30/18 13:35 POC ABG pCO2 41.4 (35-45) 08/30/18 13:35 POC ABG pO2 99 (80-105) 08/30/18 13:35 POC ABG HCO3 26.2 (22-26 mml/L) 08/30/18 13:35 POC ABG Total CO2 27 (23-27mmol/L) 08/30/18 13:35 POC ABG O2 Sat 98 08/30/18 13:35 POC ABG Base Excess 2 ((-2) - (+3)mmol/L) 08/30/18 13:35 30 % 08/30/18 13:35 Sodium 134 mmol/L (137-145) L 09/08/18 05:23 Potassium 5.2 mmol/L (3.6-5.0) H 09/08/18 05:23 Chloride 101.3 mmol/L (98-107) 09/08/18 05:23 Carbon Dioxide 22 mmol/L (22-30) 09/08/18 05:23 16 mmol/L 09/08/18 05:23 BUN 36 mg/dL (9-20) H 09/08/18 05:23 1.3 mg/dL (0.8-1.5) 09/08/18 05:23 Estimated GFR 54 ml/min 09/08/18 05:23 28 % 09/08/18 05:23 Glucose 89 mg/dL (75-100) 09/08/18 05:23 POC Glucose 98 (70-105) 09/08/18 07:52 317 Mosm/kg 08/31/18 13:54 Lactic Acid 1.30 mmol/L (0.7-2.0) 08/21/18 20:50 9.6 mg/dL (3.5-7.6) H 08/31/18 13:54 Calcium 8.5 mg/dL (8.4-10.2) 09/08/18 05:23 Magnesium 2.00 mg/dL (1.7-2.3) 09/02/18 05:16 0.60 mg/dL (0.1-1.2) 08/28/18 04:49 AST 27 units/L (5-40) 08/28/18 04:49 ALT 12 units/L (7-56) 08/28/18 04:49 87 units/L (35-129) 08/28/18 04:49 222 units/L (55-170) H 08/21/18 10:45 CK-MB (CK-2) 9.2 ng/mL (0.0-4.0) H 08/21/18 10:45 CK-MB (CK-2) Rel Index 4.1 (0-4) H 08/21/18 10:45 0.015 ng/mL (0.00-0.029) 09/08/18 05:23 9.00 mg/dL (0.00-1.30) H 08/24/18 13:41 NT-Pro-B Natriuret Pep > 49422 pg/mL (0-900) H 08/28/18 04:49 5.4 g/dL (6.3-8.2) L 08/28/18 04:49 2.2 g/dL (3.9-5) L 08/28/18 04:49 0.7 % 08/28/18 04:49 Triglycerides 87 mg/dL (2-149) 08/21/18 04:42 Cholesterol 93 mg/dL (50-199) 08/21/18 04:42 44 mg/dL (50-130) L 08/21/18 04:42 41 mg/dL (40-59) 08/21/18 04:42 2.26 % 08/21/18 04:42 Yellow (Yellow) 08/21/18 15:03 Slightly-cloudy (Clear) 08/21/18 15:03 5.0 (5.0-7.0) 08/21/18 15:03 Ur Specific [place] 1.015 (1.003-1.030) 08/21/18 15:03 30 mg/dl mg/dL (Negative) 08/21/18 15:03 Neg mg/dL (Negative) 08/21/18 15:03 Neg mg/dL (Negative) 08/21/18 15:03 Mod (Negative) 08/21/18 15:03 Neg (Negative) 08/21/18 15:03 Neg (Negative) 08/21/18 15:03 < 2.0 mg/dL (<2.0) 08/21/18 15:03 Ur Leukocyte Esterase Tr (Negative) 08/21/18 15:03 13.0 /HPF (0.0-6.0) H 08/21/18 15:03 15.0 /HPF (0.0-6.0) 08/21/18 15:03 U Epithel Cells (Auto) 1.0 /HPF (0-13.0) 08/21/18 15:03 1+ /HPF (Negative) 08/21/18 15:03 Few /HPF 08/21/18 15:03 Random Vancomycin 10.5 ug/mL (0-40.0) 08/26/18 05:53 Levetiracetam 25.7 mcg/mL (12.0-46.0) 08/26/18 13:42 Hepatitis A IgM Ab Non-reactive (NonReactive) 08/27/18 23:25 Hep Bs Antigen Non-reactive (Negative) 08/27/18 23:25 Hep B Core IgM Ab Non-reactive (NonReactive) 08/27/18 23:25 Non-reactive (NonReactive) 08/27/18 23:25 Active Medications - Current Medications Current Medications: Generic Name Dose Route Start Last Admin Trade Name Freq PRN Reason Stop Dose Admin Acetaminophen 650 mg 08/21/18 06:31 09/01/18 21:12 Tylenol PO 650 mg Q4H PRN Administration Pain MILD(1-3)/Fever >100.5/COOK Albuterol/Ipratropium 1 ampul 08/24/18 20:00 09/08/18 07:36 Duoneb *Not For Prn Use* IH 1 ampul BIDRT LUIS Administration Lipase/Protease/Amylase 1 each 08/26/18 12:07 [place] 10,500 Unit FEEDTUBE PRN PRN For Clogged Feeding Tube Arformoterol Tartrate 15 mcg 08/24/18 20:00 09/08/18 07:36 Brovana Nebu IH 15 mcg Q12HRT LUIS Administration Bisacodyl 10 mg 09/02/18 12:42 Dulcolax MO QDAY PRN Constipation Budesonide 0.5 mg 08/24/18 20:00 09/08/18 07:36 Pulmicort IH 0.5 mg Q12HRT LUIS Administration Dextrose 50 ml 08/21/18 06:48 D50w (25gm) Syringe IV PRN PRN Hypoglycemia Heparin Sodium (Porcine) 5,000 unit 08/22/18 10:00 09/07/18 21:34 Heparin SUB-Q 5,000 unit Q12HR LIUS Administration Hydralazine HCl 25 mg 08/30/18 22:00 09/08/18 05:49 Apresoline PO 25 mg Q8HR LUIS Administration Insulin Human Lispro 0 unit 08/31/18 22:00 09/07/18 21:50 Humalog SUB-Q 2 unit ACHS LUIS Administration Protocol Levetiracetam 750 mg 09/04/18 22:00 09/07/18 21:34 Keppra PO 750 mg BID LUIS Administration Metoclopramide HCl 10 mg 09/05/18 18:35 09/06/18 12:00 Reglan IV 10 mg Q6H PRN Administration Nausea And Vomiting Morphine Sulfate 2 mg 08/26/18 14:24 08/30/18 01:40 Morphine IV 2 mg Q6H PRN Administration Pain, Moderate (4-6) Ondansetron HCl 4 mg 08/21/18 06:31 Zofran IV Q8H PRN Nausea And Vomiting Sodium Chloride 10 ml 08/21/18 10:00 09/07/18 21:36 Sodium Chloride Flush Syringe 10 Ml IV 10 ml BID LUIS Administration Spironolactone 25 mg 09/03/18 11:00 09/07/18 11:18 Aldactone PO 25 mg QDAY LUIS Administration Nutrition/Malnutrition Assess - Dietary Evaluation Nutrition/Malnutrition Findings: Nutrition Notes Start: 08/21/18 16:58 Freq: Status: Active Protocol: Document 09/05/18 14:18 TUAN (Rec: 09/05/18 14:30 TUAN [email or web address] [email or web address]) Nutrition Notes Initial or Follow up Reassessment Current Diagnosis Heart Failure Other Pertinent Diagnosis COPD exacerbation, pneu, s/p cardiac arrest Current Diet Cardiac/Consistent CHO with chopped meats + Glucerna daily Labs/Tests Reviewed Pertinent Medications Reviewed Height 5 ft 6 in Weight 146.3 kg [place] Body Weight (kg) 64.54 BMI 52.0 Subjective/Other Information PT has consumed 75% of meals since last assessment. He drinks ONS daily as well. Percent of energy/protein needs met: 97% energy 70% pro (includes ONS) Burn Absent Trauma Absent #1 Nutrition Diagnosis Inadequate oral intake As Evidenced by Signs and Symptoms PO intake meeting >50% energy and pro needs Diagnosis Progress(for reassessment Improved documentation) Is patient on ventilator? No Is Patient Ambulatory and/or Out of Bed No REE-([facility]-confined to bed) 2592.060 Kcal/Kg value to use for calculation 12 Approximate Energy Requirements Using 1756 kcal/Kg Additional Notes Pro needs 1-1.2g/kg adjBW: 105-127g/day Fluid needs 1ml/kcal Nutrition Intervention Change Diet Order: Continue current Add Supplement/Snack (indicate name/kcal Glucerna Chocolate, [place] /protein ) 1 daily Provides kCal: 220 Provides Protein (gm) 10 Goal #1 Meet at least 75% of kcal and protein needs via PO intakes Follow-Up By: 09/12/18 Additional Comments F/U: stable intakes, wt
[2018-09-08] MEDS: HumaLOG SUB-Q SCH ×4 (09:52→22:00)
[2018-09-08] MEDS: HEPARIN SUB-Q SCH ×2 (10:34→21:58)
[2018-09-08] MEDS: KEPPRA PO SCH ×2 (10:35→21:58)
[2018-09-08] MEDS: SODIUM CHLORIDE FLUSH SYRINGE 10 ML IV SCH ×2 (10:36→22:00)
--- NOTE | 2018-09-08 14:02 | Progress Note ---
Assessment and Plan s/p Cardiopulmonary arrest with ROSC Acute on chronic hypoxemic respiratory failure on MVS Lactic acidosis Acute metabolic/respiratory acidosis Acute on chronic renal failure (multifactorial) Sepsis probably secondary to aspiration PNA AE-COPD Acute metabolic-toxic encephalopathy Morbid obesity NSTEMI- probably type 2 ischemia Type 2 DM h/o Liver disease h/o Colon CA Hyperkalemia LEFT TMJ JOINT DISLOCATION-POA - VQ scan low probability (no further w/up) - continue scheduled CPAP qhs with prn daytime use - HD/UF stopped - repeat CXR prn at this point - continue brovana and pulmicort for severe COPD history / exacerbation (reduced JENELLE frequency) - Will need maxillo facial surgery for evaluation of TMJ dislocation - continue supplemental oxygen to keep O2 sats >/= 88-90% - continue bronchodilators with pulmonary hygiene per RT - systemic steroids tapered off - continue accuchecks with glycemic control per SSI for target blood glucose <180mg/dL - Antibiotics per ID - Avoid nephrotoxic agents, adjust all antibiotics and medications for CrCL and GFR - VTE and Stress ulcer prophylaxis( Heparin/Famotidine) - continue other care per attending / other consultants .... care plan discussed at length with his in room CODE STATUS: FULL CODE Subjective Date of service: 09/08/18 Principal diagnosis: s/p cardiac arrest; severe sepsis; acute hypoxemic- hypercapnic resp failure Interval history: Patient is seen today for: cardiopulmonary arrest; severe sepsis; acute hypoxemic-hypercapnic respiratory failure on MVS; edgar on ckd Seen and examined at bedside; 24hour events reviewed; nursing and respiratory care staff consulted; no adverse overnight events reported to me; resting peacefully in bed; Objective Vital Signs - 12hr 09/08/18 09/08/18 09/08/18 04:08 07:32 07:36 Temperature 98.1 F 97.6 F Pulse Rate 91 H 84 Pulse Rate [ 83 Anterior Bilateral Throughout] Pulse Rate [ From Monitor] Respiratory 21 18 Rate Respiratory 18 Rate [Anterior Bilateral Throughout] Blood Pressure 127/50 141/56 O2 Sat by Pulse 98 96 84 Oximetry 09/08/18 09/08/18 09/08/18 07:46 10:00 10:55 Temperature Pulse Rate 95 H Pulse Rate [ 84 Anterior Bilateral Throughout] Pulse Rate [ 95 H From Monitor] Respiratory 20 18 Rate Respiratory 18 Rate [Anterior Bilateral Throughout] Blood Pressure O2 Sat by Pulse 95 Oximetry Constitutional: no acute distress, alert Eyes: non-icteric ENT: oropharynx moist, other (extubated) Neck: supple, no JVD, other (short neck) Effort: mildly labored Ascultation: Bilateral: diminished breath sounds, rhonchi (improved overall) Percussion: Bilateral: not dull Cardiovascular: regular rate and rhythm, other (S1,S2, no murmurs, no gallops or rubs) Gastrointestinal: normoactive bowel sounds, soft, non-tender, non-distended, other (Madison catheter in place, minimal urine tea colored) Integumentary: normal Extremities: no cyanosis, no edema, pink and warm, pulses normal, no ischemia or petechiae Neurologic: normal mental status, non-focal exam (grossly), pupils equal and round, CN II-XII normal Psychiatric: mood appropriate, affect normal CBC and BMP: 09/08/18 05:23 09/08/18 05:23 ABG, PT/INR, D-dimer: ABG POC ABG pH 7.410 (7.35-7.45) 08/30/18 13:35 POC ABG pCO2 41.4 (35-45) 08/30/18 13:35 POC ABG pO2 99 (80-105) 08/30/18 13:35 POC ABG HCO3 26.2 (22-26 mml/L) 08/30/18 13:35 POC ABG Total CO2 27 (23-27mmol/L) 08/30/18 13:35 POC ABG O2 Sat 98 08/30/18 13:35 PT/INR, D-dimer PT 15.6 Sec. (12.2-14.9) H 08/25/18 16:43 INR 1.27 (0.87-1.13) H 08/25/18 16:43 1978.25 ng/mlDDU (0-234) H 08/24/18 13:41 Abnormal lab findings: Abnormal Labs 08/21/18 08/21/18 08/21/18 04:42 04:42 04:42 WBC 19.1 H RBC 2.49 L Hgb 7.7 L Hct 24.5 L MCV 98 H RDW 17.7 H Plt Count Lymph % (Auto) [place] % (Auto) Baso % (Auto) Lymph # Seg Neuts % (Manual) 84.0 H Lymphocytes % (Manual) 7.0 L Monocytes % (Manual) 9.0 H Basophils % (Manual) Nucleated RBC % Seg Neutrophils # Man 16.0 H Lymphocytes # (Manual) Monocytes # (Manual) 1.7 H PT 20.1 H INR 1.76 H D-Dimer POC ABG pH POC ABG pCO2 POC ABG pO2 Sodium Potassium Chloride Carbon Dioxide BUN Creatinine Glucose POC Glucose Lactic Acid Uric Acid Calcium Total Bilirubin AST ALT Total Creatine Kinase CK-MB (CK-2) CK-MB (CK-2) Rel Index Troponin T 0.032 H C-Reactive Protein NT-Pro-B Natriuret Pep Total Protein Albumin LDL Cholesterol Direct 44 L Urine WBC (Auto) 08/21/18 08/21/18 08/21/18 04:42 04:42 04:42 WBC RBC Hgb Hct MCV RDW Plt Count Lymph % (Auto) [place] % (Auto) Baso % (Auto) Lymph # Seg Neuts % (Manual) Lymphocytes % (Manual) Monocytes % (Manual) Basophils % (Manual) Nucleated RBC % Seg Neutrophils # Man Lymphocytes # (Manual) Monocytes # (Manual) PT INR D-Dimer POC ABG pH POC ABG pCO2 POC ABG pO2 Sodium Potassium 6.0 H Chloride Carbon Dioxide 15 L BUN 57 H Creatinine 4.3 H Glucose 111 H POC Glucose Lactic Acid 5.80 H* Uric Acid Calcium Total Bilirubin 1.80 H AST 212 H ALT 94 H Total Creatine Kinase CK-MB (CK-2) CK-MB (CK-2) Rel Index Troponin T C-Reactive Protein NT-Pro-B Natriuret Pep 30175 H Total Protein Albumin 3.2 L LDL Cholesterol Direct Urine WBC (Auto) 08/21/18 08/21/18 08/21/18 05:08 05:58 05:58 WBC RBC Hgb Hct MCV RDW Plt Count Lymph % (Auto) [place] % (Auto) Baso % (Auto) Lymph # Seg Neuts % (Manual) Lymphocytes % (Manual) Monocytes % (Manual) Basophils % (Manual) Nucleated RBC % Seg Neutrophils # Man Lymphocytes # (Manual) Monocytes # (Manual) PT INR D-Dimer POC ABG pH 7.164 L POC ABG pCO2 46.3 H POC ABG pO2 229 H Sodium Potassium Chloride Carbon Dioxide BUN Creatinine Glucose POC Glucose Lactic Acid 5.10 H* Uric Acid Calcium Total Bilirubin AST ALT Total Creatine Kinase CK-MB (CK-2) CK-MB (CK-2) Rel Index Troponin T 0.035 H C-Reactive Protein NT-Pro-B Natriuret Pep Total Protein Albumin LDL Cholesterol Direct Urine WBC (Auto) 08/21/18 08/21/18 08/21/18 06:45 06:45 06:53 WBC RBC Hgb Hct MCV RDW Plt Count Lymph % (Auto) [place] % (Auto) Baso % (Auto) Lymph # Seg Neuts % (Manual) Lymphocytes % (Manual) Monocytes % (Manual) Basophils % (Manual) Nucleated RBC % Seg Neutrophils # Man Lymphocytes # (Manual) Monocytes # (Manual) PT INR D-Dimer POC ABG pH 7.160 L POC ABG pCO2 46.8 H POC ABG pO2 Sodium Potassium Chloride Carbon Dioxide BUN Creatinine Glucose POC Glucose Lactic Acid 4.70 H* Uric Acid Calcium Total Bilirubin AST ALT Total Creatine Kinase 234 H CK-MB (CK-2) 9.1 H CK-MB (CK-2) Rel Index Troponin T 0.032 H C-Reactive Protein NT-Pro-B Natriuret Pep Total Protein Albumin LDL Cholesterol Direct Urine WBC (Auto) 08/21/18 08/21/18 08/21/18 10:43 10:43 10:45 WBC RBC Hgb Hct MCV RDW Plt Count Lymph % (Auto) [place] % (Auto) Baso % (Auto) Lymph # Seg Neuts % (Manual) Lymphocytes % (Manual) Monocytes % (Manual) Basophils % (Manual) Nucleated RBC % Seg Neutrophils # Man Lymphocytes # (Manual) Monocytes # (Manual) PT INR D-Dimer POC ABG pH POC ABG pCO2 POC ABG pO2 Sodium Potassium Chloride Carbon Dioxide 17 L BUN 59 H Creatinine 4.2 H Glucose POC Glucose Lactic Acid 3.70 H* Uric Acid Calcium Total Bilirubin AST ALT Total Creatine Kinase 222 H CK-MB (CK-2) 9.2 H CK-MB (CK-2) Rel Index 4.1 H Troponin T 0.044 H D C-Reactive Protein NT-Pro-B Natriuret Pep Total Protein Albumin LDL Cholesterol Direct Urine WBC (Auto) 08/21/18 08/21/18 08/21/18 11:38 12:33 15:03 WBC RBC Hgb Hct MCV RDW Plt Count Lymph % (Auto) [place] % (Auto) Baso % (Auto) Lymph # Seg Neuts % (Manual) Lymphocytes % (Manual) Monocytes % (Manual) Basophils % (Manual) Nucleated RBC % Seg Neutrophils # Man Lymphocytes # (Manual) Monocytes # (Manual) PT INR D-Dimer POC ABG pH 7.250 L POC ABG pCO2 POC ABG pO2 121 H Sodium Potassium Chloride Carbon Dioxide BUN Creatinine Glucose POC Glucose 129 H Lactic Acid Uric Acid Calcium Total Bilirubin AST ALT Total Creatine Kinase CK-MB (CK-2) CK-MB (CK-2) Rel Index Troponin T C-Reactive Protein NT-Pro-B Natriuret Pep Total Protein Albumin LDL Cholesterol Direct Urine WBC (Auto) 13.0 H 08/21/18 08/22/18 08/22/18 15:47 00:01 04:27 WBC RBC Hgb Hct MCV RDW Plt Count Lymph % (Auto) [place] % (Auto) Baso % (Auto) Lymph # Seg Neuts % (Manual) Lymphocytes % (Manual) Monocytes % (Manual) Basophils % (Manual) Nucleated RBC % Seg Neutrophils # Man Lymphocytes # (Manual) Monocytes # (Manual) PT INR D-Dimer POC ABG pH 7.457 H POC ABG pCO2 POC ABG pO2 117 H Sodium Potassium Chloride Carbon Dioxide BUN Creatinine Glucose POC Glucose 211 H Lactic Acid 2.70 H* Uric Acid Calcium Total Bilirubin AST ALT Total Creatine Kinase CK-MB (CK-2) CK-MB (CK-2) Rel Index Troponin T C-Reactive Protein NT-Pro-B Natriuret Pep Total Protein Albumin LDL Cholesterol Direct Urine WBC (Auto) 08/22/18 08/22/18 08/22/18 05:46 06:10 06:10 WBC RBC 2.27 L Hgb 7.0 L Hct 21.2 L MCV RDW 16.8 H Plt Count 129 L Lymph % (Auto) [place] % (Auto) Baso % (Auto) Lymph # Seg Neuts % (Manual) 95.0 H Lymphocytes % (Manual) 1.0 L Monocytes % (Manual) Basophils % (Manual) Nucleated RBC % 1.0 H Seg Neutrophils # Man 7.8 H Lymphocytes # (Manual) 0.1 L Monocytes # (Manual) PT INR D-Dimer POC ABG pH POC ABG pCO2 POC ABG pO2 Sodium Potassium Chloride Carbon Dioxide 20 L BUN 63 H Creatinine 3.9 H Glucose 205 H POC Glucose 223 H Lactic Acid Uric Acid Calcium Total Bilirubin AST ALT Total Creatine Kinase CK-MB (CK-2) CK-MB (CK-2) Rel Index Troponin T C-Reactive Protein NT-Pro-B Natriuret Pep Total Protein Albumin LDL Cholesterol Direct Urine WBC (Auto) 08/22/18 08/22/18 08/22/18 06:10 12:57 16:21 WBC RBC Hgb Hct MCV RDW Plt Count Lymph % (Auto) [place] % (Auto) Baso % (Auto) Lymph # Seg Neuts % (Manual) Lymphocytes % (Manual) Monocytes % (Manual) Basophils % (Manual) Nucleated RBC % Seg Neutrophils # Man Lymphocytes # (Manual) Monocytes # (Manual) PT INR D-Dimer POC ABG pH 7.477 H POC ABG pCO2 POC ABG pO2 Sodium Potassium Chloride Carbon Dioxide BUN Creatinine Glucose POC Glucose 166 H Lactic Acid Uric Acid Calcium Total Bilirubin AST ALT Total Creatine Kinase CK-MB (CK-2) CK-MB (CK-2) Rel Index Troponin T C-Reactive Protein 23.60 H NT-Pro-B Natriuret Pep Total Protein Albumin LDL Cholesterol Direct Urine WBC (Auto) 08/22/18 08/22/18 08/23/18 17:41 23:42 04:38 WBC RBC Hgb Hct MCV RDW Plt Count Lymph % (Auto) [place] % (Auto) Baso % (Auto) Lymph # Seg Neuts % (Manual) Lymphocytes % (Manual) Monocytes % (Manual) Basophils % (Manual) Nucleated RBC % Seg Neutrophils # Man Lymphocytes # (Manual) Monocytes # (Manual) PT INR D-Dimer POC ABG pH 7.249 L POC ABG pCO2 53.5 H POC ABG pO2 73 L Sodium Potassium Chloride Carbon Dioxide BUN Creatinine Glucose POC Glucose 131 H 168 H Lactic Acid Uric Acid Calcium Total Bilirubin AST ALT Total Creatine Kinase CK-MB (CK-2) CK-MB (CK-2) Rel Index Troponin T C-Reactive Protein NT-Pro-B Natriuret Pep Total Protein Albumin LDL Cholesterol Direct Urine WBC (Auto) 08/23/18 08/23/18 08/23/18 04:52 04:52 04:52 WBC RBC 2.39 L Hgb 7.5 L Hct 22.8 L MCV 95 H RDW 17.6 H Plt Count Lymph % (Auto) [place] % (Auto) Baso % (Auto) Lymph # Seg Neuts % (Manual) Lymphocytes % (Manual) Monocytes % (Manual) Basophils % (Manual) Nucleated RBC % Seg Neutrophils # Man Lymphocytes # (Manual) Monocytes # (Manual) PT INR D-Dimer POC ABG pH POC ABG pCO2 POC ABG pO2 Sodium Potassium 5.6 H 5.6 H Chloride Carbon Dioxide 21 L BUN 71 H 72 H Creatinine 4.1 H 4.0 H Glucose 141 H 140 H POC Glucose Lactic Acid Uric Acid Calcium 8.3 L 8.2 L Total Bilirubin AST 247 H ALT 220 H Total Creatine Kinase CK-MB (CK-2) CK-MB (CK-2) Rel Index Troponin T C-Reactive Protein NT-Pro-B Natriuret Pep Total Protein Albumin 2.8 L LDL Cholesterol Direct Urine WBC (Auto) 08/23/18 08/23/18 08/23/18 05:50 08:38 12:21 WBC RBC Hgb Hct MCV RDW Plt Count Lymph % (Auto) [place] % (Auto) Baso % (Auto) Lymph # Seg Neuts % (Manual) Lymphocytes % (Manual) Monocytes % (Manual) Basophils % (Manual) Nucleated RBC % Seg Neutrophils # Man Lymphocytes # (Manual) Monocytes # (Manual) PT INR D-Dimer POC ABG pH POC ABG pCO2 POC ABG pO2 Sodium Potassium Chloride Carbon Dioxide BUN Creatinine Glucose POC Glucose 160 H 177 H Lactic Acid Uric Acid Calcium Total Bilirubin AST ALT Total Creatine Kinase CK-MB (CK-2) CK-MB (CK-2) Rel Index Troponin T C-Reactive Protein NT-Pro-B Natriuret Pep 57809 H Total Protein Albumin LDL Cholesterol Direct Urine WBC (Auto) 08/23/18 08/23/18 08/23/18 12:36 14:24 18:05 WBC RBC Hgb Hct MCV RDW Plt Count Lymph % (Auto) [place] % (Auto) Baso % (Auto) Lymph # Seg Neuts % (Manual) Lymphocytes % (Manual) Monocytes % (Manual) Basophils % (Manual) Nucleated RBC % Seg Neutrophils # Man Lymphocytes # (Manual) Monocytes # (Manual) PT INR D-Dimer POC ABG pH 7.337 L POC ABG pCO2 POC ABG pO2 145 H Sodium 136 L Potassium 5.2 H Chloride Carbon Dioxide BUN 76 H Creatinine 4.2 H Glucose 158 H POC Glucose 169 H Lactic Acid Uric Acid Calcium 8.1 L Total Bilirubin AST ALT Total Creatine Kinase CK-MB (CK-2) CK-MB (CK-2) Rel Index Troponin T C-Reactive Protein NT-Pro-B Natriuret Pep Total Protein Albumin LDL Cholesterol Direct Urine WBC (Auto) 08/23/18 08/23/18 08/24/18 22:43 23:42 05:16 WBC RBC Hgb Hct MCV RDW Plt Count Lymph % (Auto) [place] % (Auto) Baso % (Auto) Lymph # Seg Neuts % (Manual) Lymphocytes % (Manual) Monocytes % (Manual) Basophils % (Manual) Nucleated RBC % Seg Neutrophils # Man Lymphocytes # (Manual) Monocytes # (Manual) PT INR D-Dimer POC ABG pH POC ABG pCO2 POC ABG pO2 Sodium 136 L Potassium 5.3 H 5.2 H Chloride 97.9 L Carbon Dioxide BUN 80 H 86 H Creatinine 4.0 H 4.3 H Glucose 164 H 202 H POC Glucose 183 H Lactic Acid Uric Acid Calcium 7.9 L Total Bilirubin AST ALT Total Creatine Kinase CK-MB (CK-2) CK-MB (CK-2) Rel Index Troponin T C-Reactive Protein NT-Pro-B Natriuret Pep Total Protein Albumin LDL Cholesterol Direct Urine WBC (Auto) 08/24/18 08/24/18 08/24/18 05:21 05:29 10:10 WBC RBC 2.47 L Hgb 7.5 L Hct 23.3 L MCV RDW 17.5 H Plt Count 118 L Lymph % (Auto) [place] % (Auto) Baso % (Auto) Lymph # Seg Neuts % (Manual) 92.0 H Lymphocytes % (Manual) 2.0 L Monocytes % (Manual) Basophils % (Manual) Nucleated RBC % Seg Neutrophils # Man 8.8 H Lymphocytes # (Manual) 0.2 L Monocytes # (Manual) PT INR D-Dimer POC ABG pH 7.243 L POC ABG pCO2 56.8 H POC ABG pO2 Sodium Potassium Chloride Carbon Dioxide BUN Creatinine Glucose POC Glucose 209 H Lactic Acid Uric Acid Calcium Total Bilirubin AST ALT Total Creatine Kinase CK-MB (CK-2) CK-MB (CK-2) Rel Index Troponin T C-Reactive Protein NT-Pro-B Natriuret Pep Total Protein Albumin LDL Cholesterol Direct Urine WBC (Auto) 08/24/18 08/24/18 08/24/18 10:10 11:19 13:41 WBC RBC Hgb Hct MCV RDW Plt Count Lymph % (Auto) [place] % (Auto) Baso % (Auto) Lymph # Seg Neuts % (Manual) Lymphocytes % (Manual) Monocytes % (Manual) Basophils % (Manual) Nucleated RBC % Seg Neutrophils # Man Lymphocytes # (Manual) Monocytes # (Manual) PT INR D-Dimer 1978.25 H POC ABG pH POC ABG pCO2 POC ABG pO2 Sodium Potassium Chloride Carbon Dioxide BUN Creatinine Glucose POC Glucose 212 H Lactic Acid Uric Acid Calcium Total Bilirubin AST ALT Total Creatine Kinase CK-MB (CK-2) CK-MB (CK-2) Rel Index Troponin T C-Reactive Protein NT-Pro-B Natriuret Pep 83524 H Total Protein Albumin LDL Cholesterol Direct Urine WBC (Auto) 08/24/18 08/24/18 08/24/18 13:41 14:27 17:23 WBC RBC Hgb Hct MCV RDW Plt Count Lymph % (Auto) [place] % (Auto) Baso % (Auto) Lymph # Seg Neuts % (Manual) Lymphocytes % (Manual) Monocytes % (Manual) Basophils % (Manual) Nucleated RBC % Seg Neutrophils # Man Lymphocytes # (Manual) Monocytes # (Manual) PT INR D-Dimer POC ABG pH POC ABG pCO2 POC ABG pO2 Sodium 136 L Potassium 5.1 H Chloride 97.8 L Carbon Dioxide BUN 90 H Creatinine 4.1 H Glucose 157 H POC Glucose 155 H Lactic Acid Uric Acid Calcium 8.0 L Total Bilirubin AST ALT Total Creatine Kinase CK-MB (CK-2) CK-MB (CK-2) Rel Index Troponin T C-Reactive Protein 9.00 H NT-Pro-B Natriuret Pep Total Protein Albumin LDL Cholesterol Direct Urine WBC (Auto) 08/25/18 08/25/18 08/25/18 00:38 05:22 05:57 WBC RBC Hgb Hct MCV RDW Plt Count Lymph % (Auto) [place] % (Auto) Baso % (Auto) Lymph # Seg Neuts % (Manual) Lymphocytes % (Manual) Monocytes % (Manual) Basophils % (Manual) Nucleated RBC % Seg Neutrophils # Man Lymphocytes # (Manual) Monocytes # (Manual) PT INR D-Dimer POC ABG pH 7.238 L POC ABG pCO2 58.2 H POC ABG pO2 Sodium Potassium 5.4 H Chloride Carbon Dioxide BUN 98 H Creatinine 4.3 H Glucose 217 H POC Glucose 176 H Lactic Acid Uric Acid Calcium 8.3 L Total Bilirubin AST ALT Total Creatine Kinase CK-MB (CK-2) CK-MB (CK-2) Rel Index Troponin T C-Reactive Protein NT-Pro-B Natriuret Pep 31542 H Total Protein Albumin LDL Cholesterol Direct Urine WBC (Auto) 08/25/18 08/25/18 08/25/18 06:56 08:59 11:38 WBC RBC Hgb Hct MCV RDW Plt Count Lymph % (Auto) [place] % (Auto) Baso % (Auto) Lymph # Seg Neuts % (Manual) Lymphocytes % (Manual) Monocytes % (Manual) Basophils % (Manual) Nucleated RBC % Seg Neutrophils # Man Lymphocytes # (Manual) Monocytes # (Manual) PT INR D-Dimer POC ABG pH 7.348 L POC ABG pCO2 48.6 H POC ABG pO2 Sodium Potassium Chloride Carbon Dioxide BUN Creatinine Glucose POC Glucose 247 H 235 H Lactic Acid Uric Acid Calcium Total Bilirubin AST ALT Total Creatine Kinase CK-MB (CK-2) CK-MB (CK-2) Rel Index Troponin T C-Reactive Protein NT-Pro-B Natriuret Pep Total Protein Albumin LDL Cholesterol Direct Urine WBC (Auto) 08/25/18 08/25/18 08/25/18 12:29 16:43 16:43 WBC 14.7 H RBC 2.90 L Hgb 8.9 L Hct 27.4 L MCV 95 H RDW 17.3 H Plt Count 119 L Lymph % (Auto) [place] % (Auto) Baso % (Auto) Lymph # Seg Neuts % (Manual) 94.0 H Lymphocytes % (Manual) 2.0 L Monocytes % (Manual) Basophils % (Manual) Nucleated RBC % Seg Neutrophils # Man 13.8 H Lymphocytes # (Manual) 0.3 L Monocytes # (Manual) PT 15.6 H INR 1.27 H D-Dimer POC ABG pH POC ABG pCO2 POC ABG pO2 Sodium Potassium Chloride Carbon Dioxide BUN Creatinine Glucose POC Glucose 237 H Lactic Acid Uric Acid Calcium Total Bilirubin AST ALT Total Creatine Kinase CK-MB (CK-2) CK-MB (CK-2) Rel Index Troponin T C-Reactive Protein NT-Pro-B Natriuret Pep Total Protein Albumin LDL Cholesterol Direct Urine WBC (Auto) 08/25/18 08/26/18 08/26/18 17:22 00:16 04:56 WBC RBC Hgb Hct MCV RDW Plt Count Lymph % (Auto) [place] % (Auto) Baso % (Auto) Lymph # Seg Neuts % (Manual) Lymphocytes % (Manual) Monocytes % (Manual) Basophils % (Manual) Nucleated RBC % Seg Neutrophils # Man Lymphocytes # (Manual) Monocytes # (Manual) PT INR D-Dimer POC ABG pH POC ABG pCO2 45.2 H POC ABG pO2 Sodium Potassium Chloride Carbon Dioxide BUN Creatinine Glucose POC Glucose 200 H 180 H Lactic Acid Uric Acid Calcium Total Bilirubin AST ALT Total Creatine Kinase CK-MB (CK-2) CK-MB (CK-2) Rel Index Troponin T C-Reactive Protein NT-Pro-B Natriuret Pep Total Protein Albumin LDL Cholesterol Direct Urine WBC (Auto) 08/26/18 08/26/18 08/26/18 05:53 06:20 08:48 WBC RBC Hgb Hct MCV RDW Plt Count Lymph % (Auto) [place] % (Auto) Baso % (Auto) Lymph # Seg Neuts % (Manual) Lymphocytes % (Manual) Monocytes % (Manual) Basophils % (Manual) Nucleated RBC % Seg Neutrophils # Man Lymphocytes # (Manual) Monocytes # (Manual) PT INR D-Dimer POC ABG pH POC ABG pCO2 POC ABG pO2 Sodium Potassium Chloride Carbon Dioxide BUN 106 H Creatinine 3.9 H Glucose 137 H POC Glucose 131 H 126 H Lactic Acid Uric Acid Calcium 8.1 L Total Bilirubin AST ALT Total Creatine Kinase CK-MB (CK-2) CK-MB (CK-2) Rel Index Troponin T C-Reactive Protein NT-Pro-B Natriuret Pep > 51598 H Total Protein Albumin LDL Cholesterol Direct Urine WBC (Auto) 08/26/18 08/26/18 08/26/18 11:39 17:33 18:02 WBC RBC Hgb Hct MCV RDW Plt Count Lymph % (Auto) [place] % (Auto) Baso % (Auto) Lymph # Seg Neuts % (Manual) Lymphocytes % (Manual) Monocytes % (Manual) Basophils % (Manual) Nucleated RBC % Seg Neutrophils # Man Lymphocytes # (Manual) Monocytes # (Manual) PT INR D-Dimer POC ABG pH POC ABG pCO2 POC ABG pO2 58 L Sodium Potassium Chloride Carbon Dioxide BUN Creatinine Glucose POC Glucose 156 H 173 H Lactic Acid Uric Acid Calcium Total Bilirubin AST ALT Total Creatine Kinase CK-MB (CK-2) CK-MB (CK-2) Rel Index Troponin T C-Reactive Protein NT-Pro-B Natriuret Pep Total Protein Albumin LDL Cholesterol Direct Urine WBC (Auto) 08/26/18 08/27/18 08/27/18 23:12 04:59 11:51 WBC RBC Hgb Hct MCV RDW Plt Count Lymph % (Auto) [place] % (Auto) Baso % (Auto) Lymph # Seg Neuts % (Manual) Lymphocytes % (Manual) Monocytes % (Manual) Basophils % (Manual) Nucleated RBC % Seg Neutrophils # Man Lymphocytes # (Manual) Monocytes # (Manual) PT INR D-Dimer POC ABG pH 7.563 H POC ABG pCO2 < 30 L POC ABG pO2 69 L Sodium Potassium Chloride Carbon Dioxide BUN Creatinine Glucose POC Glucose 130 H 107 H Lactic Acid Uric Acid Calcium Total Bilirubin AST ALT Total Creatine Kinase CK-MB (CK-2) CK-MB (CK-2) Rel Index Troponin T C-Reactive Protein NT-Pro-B Natriuret Pep Total Protein Albumin LDL Cholesterol Direct Urine WBC (Auto) 08/27/18 08/27/18 08/27/18 11:58 11:58 11:58 WBC RBC 2.66 L Hgb 8.1 L Hct 24.7 L MCV RDW 16.7 H Plt Count Lymph % (Auto) [place] % (Auto) Baso % (Auto) Lymph # Seg Neuts % (Manual) Lymphocytes % (Manual) Monocytes % (Manual) Basophils % (Manual) Nucleated RBC % Seg Neutrophils # Man Lymphocytes # (Manual) Monocytes # (Manual) PT INR D-Dimer POC ABG pH POC ABG pCO2 POC ABG pO2 Sodium Potassium Chloride Carbon Dioxide BUN 71 H Creatinine 2.9 H Glucose POC Glucose Lactic Acid Uric Acid Calcium 7.6 L Total Bilirubin AST ALT Total Creatine Kinase CK-MB (CK-2) CK-MB (CK-2) Rel Index Troponin T C-Reactive Protein NT-Pro-B Natriuret Pep > 61132 H Total Protein 6.1 L Albumin 2.4 L LDL Cholesterol Direct Urine WBC (Auto) 08/28/18 08/28/18 08/28/18 04:38 04:49 04:49 WBC RBC 2.65 L Hgb 8.3 L Hct 25.3 L MCV 96 H RDW 17.3 H Plt Count 83 L Lymph % (Auto) [place] % (Auto) Baso % (Auto) Lymph # Seg Neuts % (Manual) Lymphocytes % (Manual) Monocytes % (Manual) Basophils % (Manual) Nucleated RBC % Seg Neutrophils # Man Lymphocytes # (Manual) Monocytes # (Manual) PT INR D-Dimer POC ABG pH POC ABG pCO2 POC ABG pO2 112 H Sodium Potassium Chloride Carbon Dioxide BUN Creatinine Glucose POC Glucose Lactic Acid Uric Acid Calcium Total Bilirubin AST ALT Total Creatine Kinase CK-MB (CK-2) CK-MB (CK-2) Rel Index Troponin T C-Reactive Protein NT-Pro-B Natriuret Pep > 11627 H Total Protein Albumin LDL Cholesterol Direct Urine WBC (Auto) 08/28/18 08/28/18 08/29/18 04:49 14:24 00:11 WBC RBC Hgb Hct MCV RDW Plt Count Lymph % (Auto) [place] % (Auto) Baso % (Auto) Lymph # Seg Neuts % (Manual) Lymphocytes % (Manual) Monocytes % (Manual) Basophils % (Manual) Nucleated RBC % Seg Neutrophils # Man Lymphocytes # (Manual) Monocytes # (Manual) PT INR D-Dimer POC ABG pH 7.278 L POC ABG pCO2 57.9 H POC ABG pO2 79 L Sodium Potassium Chloride Carbon Dioxide BUN 69 H Creatinine 2.4 H Glucose POC Glucose 171 H Lactic Acid Uric Acid Calcium 7.7 L Total Bilirubin AST ALT Total Creatine Kinase CK-MB (CK-2) CK-MB (CK-2) Rel Index Troponin T C-Reactive Protein NT-Pro-B Natriuret Pep Total Protein 5.4 L Albumin 2.2 L LDL Cholesterol Direct Urine WBC (Auto) 08/29/18 08/29/18 08/29/18 04:39 05:35 05:35 WBC 13.6 H RBC 3.09 L Hgb 9.4 L Hct 29.5 L MCV 96 H RDW 17.9 H Plt Count 127 L Lymph % (Auto) [place] % (Auto) Baso % (Auto) Lymph # Seg Neuts % (Manual) Lymphocytes % (Manual) Monocytes % (Manual) Basophils % (Manual) Nucleated RBC % Seg Neutrophils # Man Lymphocytes # (Manual) Monocytes # (Manual) PT INR D-Dimer POC ABG pH 7.312 L POC ABG pCO2 57.6 H POC ABG pO2 79 L Sodium Potassium Chloride Carbon Dioxide BUN 42 H Creatinine 1.9 H Glucose 107 H POC Glucose Lactic Acid Uric Acid Calcium Total Bilirubin AST ALT Total Creatine Kinase CK-MB (CK-2) CK-MB (CK-2) Rel Index Troponin T C-Reactive Protein NT-Pro-B Natriuret Pep Total Protein Albumin LDL Cholesterol Direct Urine WBC (Auto) 08/29/18 08/29/18 08/29/18 05:48 11:37 15:32 WBC RBC Hgb Hct MCV RDW Plt Count Lymph % (Auto) [place] % (Auto) Baso % (Auto) Lymph # Seg Neuts % (Manual) Lymphocytes % (Manual) Monocytes % (Manual) Basophils % (Manual) Nucleated RBC % Seg Neutrophils # Man Lymphocytes # (Manual) Monocytes # (Manual) PT INR D-Dimer POC ABG pH POC ABG pCO2 47.0 H POC ABG pO2 78 L Sodium Potassium Chloride Carbon Dioxide BUN Creatinine Glucose POC Glucose 114 H 116 H Lactic Acid Uric Acid Calcium Total Bilirubin AST ALT Total Creatine Kinase CK-MB (CK-2) CK-MB (CK-2) Rel Index Troponin T C-Reactive Protein NT-Pro-B Natriuret Pep Total Protein Albumin LDL Cholesterol Direct Urine WBC (Auto) 08/29/18 08/30/18 08/30/18 17:28 00:17 04:41 WBC RBC Hgb Hct MCV RDW Plt Count Lymph % (Auto) [place] % (Auto) Baso % (Auto) Lymph # Seg Neuts % (Manual) Lymphocytes % (Manual) Monocytes % (Manual) Basophils % (Manual) Nucleated RBC % Seg Neutrophils # Man Lymphocytes # (Manual) Monocytes # (Manual) PT INR D-Dimer POC ABG pH POC ABG pCO2 48.1 H POC ABG pO2 Sodium Potassium Chloride Carbon Dioxide BUN Creatinine Glucose POC Glucose 174 H 132 H Lactic Acid Uric Acid Calcium Total Bilirubin AST ALT Total Creatine Kinase CK-MB (CK-2) CK-MB (CK-2) Rel Index Troponin T C-Reactive Protein NT-Pro-B Natriuret Pep Total Protein Albumin LDL Cholesterol Direct Urine WBC (Auto) 08/30/18 08/30/18 08/30/18 05:17 05:34 06:10 WBC RBC 2.68 L Hgb 8.2 L Hct 25.6 L MCV 96 H RDW 17.2 H Plt Count 118 L Lymph % (Auto) [place] % (Auto) Baso % (Auto) Lymph # Seg Neuts % (Manual) Lymphocytes % (Manual) Monocytes % (Manual) Basophils % (Manual) Nucleated RBC % Seg Neutrophils # Man Lymphocytes # (Manual) Monocytes # (Manual) PT INR D-Dimer POC ABG pH POC ABG pCO2 POC ABG pO2 Sodium Potassium Chloride Carbon Dioxide BUN 54 H Creatinine 2.4 H Glucose 120 H POC Glucose 141 H Lactic Acid Uric Acid Calcium Total Bilirubin AST ALT Total Creatine Kinase CK-MB (CK-2) CK-MB (CK-2) Rel Index Troponin T C-Reactive Protein NT-Pro-B Natriuret Pep Total Protein Albumin LDL Cholesterol Direct Urine WBC (Auto) 08/30/18 08/30/18 08/30/18 13:11 18:11 23:55 WBC RBC Hgb Hct MCV RDW Plt Count Lymph % (Auto) [place] % (Auto) Baso % (Auto) Lymph # Seg Neuts % (Manual) Lymphocytes % (Manual) Monocytes % (Manual) Basophils % (Manual) Nucleated RBC % Seg Neutrophils # Man Lymphocytes # (Manual) Monocytes # (Manual) PT INR D-Dimer POC ABG pH POC ABG pCO2 POC ABG pO2 Sodium Potassium Chloride Carbon Dioxide BUN Creatinine Glucose POC Glucose 167 H 144 H 144 H Lactic Acid Uric Acid Calcium Total Bilirubin AST ALT Total Creatine Kinase CK-MB (CK-2) CK-MB (CK-2) Rel Index Troponin T C-Reactive Protein NT-Pro-B Natriuret Pep Total Protein Albumin LDL Cholesterol Direct Urine WBC (Auto) 08/31/18 08/31/18 08/31/18 05:07 05:07 05:44 WBC RBC 2.62 L Hgb 8.1 L Hct 25.0 L MCV 96 H RDW 17.5 H Plt Count 128 L Lymph % (Auto) [place] % (Auto) Baso % (Auto) Lymph # Seg Neuts % (Manual) Lymphocytes % (Manual) Monocytes % (Manual) Basophils % (Manual) Nucleated RBC % Seg Neutrophils # Man Lymphocytes # (Manual) Monocytes # (Manual) PT INR D-Dimer POC ABG pH POC ABG pCO2 POC ABG pO2 Sodium Potassium Chloride Carbon Dioxide BUN 58 H Creatinine 2.3 H Glucose 103 H POC Glucose 109 H Lactic Acid Uric Acid Calcium Total Bilirubin AST ALT Total Creatine Kinase CK-MB (CK-2) CK-MB (CK-2) Rel Index Troponin T C-Reactive Protein NT-Pro-B Natriuret Pep Total Protein Albumin LDL Cholesterol Direct Urine WBC (Auto) 08/31/18 08/31/18 08/31/18 11:26 13:54 19:05 WBC RBC Hgb Hct MCV RDW Plt Count Lymph % (Auto) [place] % (Auto) Baso % (Auto) Lymph # Seg Neuts % (Manual) Lymphocytes % (Manual) Monocytes % (Manual) Basophils % (Manual) Nucleated RBC % Seg Neutrophils # Man Lymphocytes # (Manual) Monocytes # (Manual) PT INR D-Dimer POC ABG pH POC ABG pCO2 POC ABG pO2 Sodium Potassium Chloride Carbon Dioxide BUN Creatinine Glucose POC Glucose 117 H 186 H Lactic Acid Uric Acid 9.6 H Calcium Total Bilirubin AST ALT Total Creatine Kinase CK-MB (CK-2) CK-MB (CK-2) Rel Index Troponin T C-Reactive Protein NT-Pro-B Natriuret Pep Total Protein Albumin LDL Cholesterol Direct Urine WBC (Auto) 08/31/18 09/01/18 09/01/18 23:50 06:27 09:21 WBC RBC 2.74 L Hgb 8.6 L Hct 25.8 L MCV RDW 17.3 H Plt Count Lymph % (Auto) [place] % (Auto) Baso % (Auto) Lymph # Seg Neuts % (Manual) Lymphocytes % (Manual) Monocytes % (Manual) Basophils % (Manual) Nucleated RBC % Seg Neutrophils # Man Lymphocytes # (Manual) Monocytes # (Manual) PT INR D-Dimer POC ABG pH POC ABG pCO2 POC ABG pO2 Sodium Potassium Chloride Carbon Dioxide BUN Creatinine Glucose POC Glucose 141 H 62 L Lactic Acid Uric Acid Calcium Total Bilirubin AST ALT Total Creatine Kinase CK-MB (CK-2) CK-MB (CK-2) Rel Index Troponin T C-Reactive Protein NT-Pro-B Natriuret Pep Total Protein Albumin LDL Cholesterol Direct Urine WBC (Auto) 09/01/18 09/01/18 09/01/18 09:21 12:27 17:51 WBC RBC Hgb Hct MCV RDW Plt Count Lymph % (Auto) [place] % (Auto) Baso % (Auto) Lymph # Seg Neuts % (Manual) Lymphocytes % (Manual) Monocytes % (Manual) Basophils % (Manual) Nucleated RBC % Seg Neutrophils # Man Lymphocytes # (Manual) Monocytes # (Manual) PT INR D-Dimer POC ABG pH POC ABG pCO2 POC ABG pO2 Sodium Potassium 3.0 L D Chloride 109.8 H Carbon Dioxide BUN 45 H Creatinine 1.7 H Glucose POC Glucose 106 H 108 H Lactic Acid Uric Acid Calcium 7.1 L D Total Bilirubin AST ALT Total Creatine Kinase CK-MB (CK-2) CK-MB (CK-2) Rel Index Troponin T C-Reactive Protein NT-Pro-B Natriuret Pep Total Protein Albumin LDL Cholesterol Direct Urine WBC (Auto) 09/02/18 09/02/18 09/02/18 05:16 05:16 12:01 WBC RBC 2.60 L Hgb 8.1 L Hct 24.8 L MCV 95 H RDW 17.1 H Plt Count Lymph % (Auto) [place] % (Auto) Baso % (Auto) Lymph # Seg Neuts % (Manual) Lymphocytes % (Manual) Monocytes % (Manual) Basophils % (Manual) Nucleated RBC % Seg Neutrophils # Man Lymphocytes # (Manual) Monocytes # (Manual) PT INR D-Dimer POC ABG pH POC ABG pCO2 POC ABG pO2 Sodium Potassium Chloride Carbon Dioxide BUN 49 H Creatinine 1.8 H Glucose 107 H POC Glucose 124 H Lactic Acid Uric Acid Calcium 8.1 L Total Bilirubin AST ALT Total Creatine Kinase CK-MB (CK-2) CK-MB (CK-2) Rel Index Troponin T C-Reactive Protein NT-Pro-B Natriuret Pep Total Protein Albumin LDL Cholesterol Direct Urine WBC (Auto) 09/02/18 09/02/18 09/03/18 18:38 23:12 08:22 WBC RBC Hgb Hct MCV RDW Plt Count Lymph % (Auto) [place] % (Auto) Baso % (Auto) Lymph # Seg Neuts % (Manual) Lymphocytes % (Manual) Monocytes % (Manual) Basophils % (Manual) Nucleated RBC % Seg Neutrophils # Man Lymphocytes # (Manual) Monocytes # (Manual) PT INR D-Dimer POC ABG pH POC ABG pCO2 POC ABG pO2 Sodium Potassium Chloride Carbon Dioxide BUN Creatinine Glucose POC Glucose 164 H 128 H 115 H Lactic Acid Uric Acid Calcium Total Bilirubin AST ALT Total Creatine Kinase CK-MB (CK-2) CK-MB (CK-2) Rel Index Troponin T C-Reactive Protein NT-Pro-B Natriuret Pep Total Protein Albumin LDL Cholesterol Direct Urine WBC (Auto) 09/03/18 09/03/18 09/03/18 11:48 16:37 20:48 WBC RBC Hgb Hct MCV RDW Plt Count Lymph % (Auto) [place] % (Auto) Baso % (Auto) Lymph # Seg Neuts % (Manual) Lymphocytes % (Manual) Monocytes % (Manual) Basophils % (Manual) Nucleated RBC % Seg Neutrophils # Man Lymphocytes # (Manual) Monocytes # (Manual) PT INR D-Dimer POC ABG pH POC ABG pCO2 POC ABG pO2 Sodium Potassium Chloride Carbon Dioxide BUN Creatinine Glucose POC Glucose 203 H 146 H 150 H Lactic Acid Uric Acid Calcium Total Bilirubin AST ALT Total Creatine Kinase CK-MB (CK-2) CK-MB (CK-2) Rel Index Troponin T C-Reactive Protein NT-Pro-B Natriuret Pep Total Protein Albumin LDL Cholesterol Direct Urine WBC (Auto) 09/04/18 09/04/18 09/04/18 08:29 12:08 13:32 WBC RBC Hgb Hct MCV RDW Plt Count Lymph % (Auto) [place] % (Auto) Baso % (Auto) Lymph # Seg Neuts % (Manual) Lymphocytes % (Manual) Monocytes % (Manual) Basophils % (Manual) Nucleated RBC % Seg Neutrophils # Man Lymphocytes # (Manual) Monocytes # (Manual) PT INR D-Dimer POC ABG pH POC ABG pCO2 POC ABG pO2 Sodium 136 L Potassium Chloride Carbon Dioxide BUN 42 H Creatinine 1.6 H Glucose 180 H POC Glucose 129 H 149 H Lactic Acid Uric Acid Calcium Total Bilirubin AST ALT Total Creatine Kinase CK-MB (CK-2) CK-MB (CK-2) Rel Index Troponin T C-Reactive Protein NT-Pro-B Natriuret Pep Total Protein Albumin LDL Cholesterol Direct Urine WBC (Auto) 09/04/18 09/05/18 09/05/18 16:33 07:03 07:03 WBC RBC 2.92 L Hgb 9.1 L Hct 27.4 L MCV RDW 17.3 H Plt Count Lymph % (Auto) [place] % (Auto) Baso % (Auto) Lymph # Seg Neuts % (Manual) 81.0 H Lymphocytes % (Manual) 7.0 L Monocytes % (Manual) 8.0 H Basophils % (Manual) Nucleated RBC % Seg Neutrophils # Man Lymphocytes # (Manual) 0.5 L Monocytes # (Manual) PT INR D-Dimer POC ABG pH POC ABG pCO2 POC ABG pO2 Sodium Potassium Chloride Carbon Dioxide BUN 40 H Creatinine Glucose 153 H POC Glucose 165 H Lactic Acid Uric Acid Calcium Total Bilirubin AST ALT Total Creatine Kinase CK-MB (CK-2) CK-MB (CK-2) Rel Index Troponin T C-Reactive Protein NT-Pro-B Natriuret Pep Total Protein Albumin LDL Cholesterol Direct Urine WBC (Auto) 09/05/18 09/05/18 09/05/18 08:00 11:51 21:20 WBC RBC Hgb Hct MCV RDW Plt Count Lymph % (Auto) [place] % (Auto) Baso % (Auto) Lymph # Seg Neuts % (Manual) Lymphocytes % (Manual) Monocytes % (Manual) Basophils % (Manual) Nucleated RBC % Seg Neutrophils # Man Lymphocytes # (Manual) Monocytes # (Manual) PT INR D-Dimer POC ABG pH POC ABG pCO2 POC ABG pO2 Sodium Potassium Chloride Carbon Dioxide BUN Creatinine Glucose POC Glucose 146 H 207 H 114 H Lactic Acid Uric Acid Calcium Total Bilirubin AST ALT Total Creatine Kinase CK-MB (CK-2) CK-MB (CK-2) Rel Index Troponin T C-Reactive Protein NT-Pro-B Natriuret Pep Total Protein Albumin LDL Cholesterol Direct Urine WBC (Auto) 09/06/18 09/06/18 09/06/18 06:42 06:42 11:38 WBC RBC 2.90 L Hgb 9.0 L Hct 27.0 L MCV RDW 17.4 H Plt Count 130 L Lymph % (Auto) [place] % (Auto) Baso % (Auto) Lymph # Seg Neuts % (Manual) 79.0 H Lymphocytes % (Manual) 6.0 L Monocytes % (Manual) 12.0 H Basophils % (Manual) 2.0 H Nucleated RBC % Seg Neutrophils # Man Lymphocytes # (Manual) 0.3 L Monocytes # (Manual) PT INR D-Dimer POC ABG pH POC ABG pCO2 POC ABG pO2 Sodium 136 L Potassium Chloride Carbon Dioxide BUN 39 H Creatinine Glucose 106 H POC Glucose 265 H Lactic Acid Uric Acid Calcium Total Bilirubin AST ALT Total Creatine Kinase CK-MB (CK-2) CK-MB (CK-2) Rel Index Troponin T C-Reactive Protein NT-Pro-B Natriuret Pep Total Protein Albumin LDL Cholesterol Direct Urine WBC (Auto) 09/06/18 09/06/18 09/07/18 16:37 20:55 05:12 WBC RBC 2.80 L Hgb 8.7 L Hct 26.5 L MCV 95 H RDW 17.7 H Plt Count Lymph % (Auto) 13.3 L [place] % (Auto) 14.2 H Baso % (Auto) 1.9 H Lymph # 0.7 L Seg Neuts % (Manual) Lymphocytes % (Manual) Monocytes % (Manual) Basophils % (Manual) Nucleated RBC % Seg Neutrophils # Man Lymphocytes # (Manual) Monocytes # (Manual) PT INR D-Dimer POC ABG pH POC ABG pCO2 POC ABG pO2 Sodium Potassium Chloride Carbon Dioxide BUN Creatinine Glucose POC Glucose 131 H 135 H Lactic Acid Uric Acid Calcium Total Bilirubin AST ALT Total Creatine Kinase CK-MB (CK-2) CK-MB (CK-2) Rel Index Troponin T C-Reactive Protein NT-Pro-B Natriuret Pep Total Protein Albumin LDL Cholesterol Direct Urine WBC (Auto) 09/07/18 09/07/18 09/07/18 05:12 11:28 15:32 WBC RBC Hgb Hct MCV RDW Plt Count Lymph % (Auto) [place] % (Auto) Baso % (Auto) Lymph # Seg Neuts % (Manual) Lymphocytes % (Manual) Monocytes % (Manual) Basophils % (Manual) Nucleated RBC % Seg Neutrophils # Man Lymphocytes # (Manual) Monocytes # (Manual) PT INR D-Dimer POC ABG pH POC ABG pCO2 POC ABG pO2 Sodium Potassium Chloride Carbon Dioxide BUN 36 H Creatinine Glucose POC Glucose 176 H 131 H Lactic Acid Uric Acid Calcium Total Bilirubin AST ALT Total Creatine Kinase CK-MB (CK-2) CK-MB (CK-2) Rel Index Troponin T C-Reactive Protein NT-Pro-B Natriuret Pep Total Protein Albumin LDL Cholesterol Direct Urine WBC (Auto) 09/07/18 09/08/18 09/08/18 21:50 05:23 05:23 WBC RBC 2.72 L Hgb 8.5 L Hct 26.9 L MCV 99 H RDW 18.0 H Plt Count 136 L Lymph % (Auto) 13.1 L [place] % (Auto) 15.7 H Baso % (Auto) 1.9 H Lymph # 0.7 L Seg Neuts % (Manual) Lymphocytes % (Manual) Monocytes % (Manual) Basophils % (Manual) Nucleated RBC % Seg Neutrophils # Man Lymphocytes # (Manual) Monocytes # (Manual) PT INR D-Dimer POC ABG pH POC ABG pCO2 POC ABG pO2 Sodium 134 L Potassium 5.2 H Chloride Carbon Dioxide BUN 36 H Creatinine Glucose POC Glucose 160 H Lactic Acid Uric Acid Calcium Total Bilirubin AST ALT Total Creatine Kinase CK-MB (CK-2) CK-MB (CK-2) Rel Index Troponin T C-Reactive Protein NT-Pro-B Natriuret Pep Total Protein Albumin LDL Cholesterol Direct Urine WBC (Auto) 09/08/18 12:33 WBC RBC Hgb Hct MCV RDW Plt Count Lymph % (Auto) [place] % (Auto) Baso % (Auto) Lymph # Seg Neuts % (Manual) Lymphocytes % (Manual) Monocytes % (Manual) Basophils % (Manual) Nucleated RBC % Seg Neutrophils # Man Lymphocytes # (Manual) Monocytes # (Manual) PT INR D-Dimer POC ABG pH POC ABG pCO2 POC ABG pO2 Sodium Potassium Chloride Carbon Dioxide BUN Creatinine Glucose POC Glucose 198 H Lactic Acid Uric Acid Calcium Total Bilirubin AST ALT Total Creatine Kinase CK-MB (CK-2) CK-MB (CK-2) Rel Index Troponin T C-Reactive Protein NT-Pro-B Natriuret Pep Total Protein Albumin LDL Cholesterol Direct Urine WBC (Auto) Allied health notes reviewed: nursing
--- NOTE | 2018-09-08 14:38 | Progress Note ---
Assessment and Plan Pt in AFib on tele with HR currently 90s, no SVR overnight. Would cont to avoid AV christy blocking agents. Agree with hydralazine for BP andrey jesenia. Will not initiate systemic AC in regards to AFib at this time in setting of anemia and thrombocytopenia. Pt was unable to complete lexiscan MPI stress test today due to claustrophobia. He states he would like to reattempt this as an OP. Nothing further to add from cardiac perspective at this time. Will sign off. Recommend follow up in our office with Dr. Jay within 1-2 weeks of hospital discharge ([phone]). The patient has been seen in conjunction with Dr. Smith who agrees with the assessment and plan of care. - Patient Problems (1) Cardiac arrest Current Visit: Yes Status: Acute (2) Atrial fibrillation Current Visit: Yes Status: Acute (3) Acute HFrEF (heart failure with reduced ejection fraction) Current Visit: Yes Status: Resolved (4) Cardiomyopathy Current Visit: Yes Status: Chronic (5) Acute on chronic respiratory failure Current Visit: Yes Status: Acute (6) Acute renal failure Current Visit: Yes Status: Acute (7) Pneumonia Current Visit: Yes Status: Acute (8) Sepsis Current Visit: Yes Status: Suspected (9) Anemia Current Visit: Yes Status: Acute (10) Thrombocytopenia Current Visit: Yes Status: Acute (11) Elevated troponin Current Visit: Yes Status: Acute Subjective Date of service: 09/08/18 Principal diagnosis: s/p cardiac arrest; severe sepsis; acute hypoxemic- hypercapnic resp failure Interval history: pt resting in bed, appears comfortable. no current complaints. in AFib on tele with HR currently 90s, no SVR overnight, pt states he wore his CPAP all night. Objective Last Vital Signs Temp 97.6 F 09/08/18 07:32 Pulse 95 H 09/08/18 10:00 Resp 18 09/08/18 10:55 BP 141/56 09/08/18 07:32 Pulse Ox 95 09/08/18 10:55 - Physical Examination General: No Apparent Distress HEENT: Positive: PERRL Neck: Positive: neck supple Cardiac: Positive: irregularly irregular, S1/S2 Lungs: Positive: Decreased Breath Sounds Neuro: Positive: Grossly Intact Abdomen: Positive: Soft /Rectal: Other ([place] in place. ) Skin: Positive: Clear. Negative: Rash Musculoskeletal: Decreased Range of Motion Extremities: Present: Other (Generalized edema). Absent: edema - Labs and Meds CBC 09/08/18 Range/Units 05:23 WBC 5.3 (4.5-11.0) K/mm3 RBC 2.72 L (3.65-5.03) M/mm3 Hgb 8.5 L (11.8-15.2) gm/dl Hct 26.9 L (35.5-45.6) % Plt Count 136 L (140-440) K/mm3 Lymph # 0.7 L (1.2-5.4) K/mm3 [place] # 0.8 (0.0-0.8) K/mm3 Eos # 0.1 (0.0-0.4) K/mm3 Baso # 0.1 (0.0-0.1) K/mm3 Comprehensive Metabolic Panel 09/08/18 Range/Units 05:23 Sodium 134 L (137-145) mmol/L Potassium 5.2 H (3.6-5.0) mmol/L Chloride 101.3 (98-107) mmol/L Carbon Dioxide 22 (22-30) mmol/L BUN 36 H (9-20) mg/dL Creatinine 1.3 (0.8-1.5) mg/dL Glucose 89 (75-100) mg/dL Calcium 8.5 (8.4-10.2) mg/dL - Imaging and Cardiology EKG: image reviewed Echo: report reviewed ( EF 40-45%, LV mod dilated, pseudonormalization, RV severely dilated, RA mod dilated, mod TR, RVSP 47mmHg. ) - EKG Sinus rhythms and dysrhythmias: sinus rhythm AV and intraventricular conduction: right bundle branch block - Allied health notes Allied health notes reviewed: nursing
[2018-09-09 06:48] LABS: Basophils # (Auto) 0.1 K/mm3 (0.0-0.1); Basophils % (Auto) 1.9 % (0.0-1.8); Eosinophils # (Auto) 0.1 K/mm3 (0.0-0.4); Eosinophils % (Auto) 2.9 % (0.0-4.3); Hematocrit 25.2 % (35.5-45.6); Hemoglobin 8.1 gm/dl (11.8-15.2); Lymphocytes # (Auto) 0.6 K/mm3 (1.2-5.4); Lymphocytes % (Auto) 14.2 % (13.4-35.0); Mean Corpuscular HGB Conc 32 % (32-34); Mean Corpuscular Hemoglobin 31 pg (28-32); Mean Corpuscular Volume 95 fl (84-94); Monocytes # (Auto) 0.6 K/mm3 (0.0-0.8); Monocytes % (Auto) 14.3 % (0.0-7.3); Platelet Count 140 K/mm3 (140-440); Red Blood Count 2.64 M/mm3 (3.65-5.03); Red Cell Distribution Width 17.8 % (13.2-15.2)
[2018-09-09 07:03] LABS: Calcium 8.1 mg/dL (8.4-10.2)
[2018-09-09] MEDS: BROVANA NEBU IH SCH ×2 (07:54→20:29)
[2018-09-09] MEDS: PULMICORT IH SCH ×2 (07:54→20:29)
[2018-09-09] MEDS: DUONEB *Not for PRN Use IH SCH ×2 (07:54→20:29)
[2018-09-09] MEDS: HumaLOG SUB-Q SCH ×4 (08:20→22:25)
[2018-09-09] MEDS: KEPPRA PO SCH ×2 (09:36→22:24)
[2018-09-09] MEDS: HEPARIN SUB-Q SCH ×2 (09:37→22:24)
[2018-09-09] MEDS: APRESOLINE PO SCH ×2 (09:37→22:24)
[2018-09-09] MEDS: SODIUM CHLORIDE FLUSH SYRINGE 10 ML IV SCH ×2 (09:45→22:25)
--- NOTE | 2018-09-09 11:11 | Progress Note ---
Assessment and Plan Assessment and plan: Acute on chronic respiratory failure. Etiology secondary to COPD exacerbation. Continue O2 and nebulizers. Improving. Acute kidney injury on CKD stage III. Off hemodialysis now. Creatinine remaine d stable despite off hemodialysis. Acute COPD exacerbation. We'll continue nebulizers, antibiotics and O2 continuously. Also prednisone at discharged. Patient doing well. Awaiting detention placement Pneumonia may be gram-negative nini continue current antibiotics per ID. Sepsis. Improved. Leukocytosis resolved. Pulseless electrical activity status post cardiorespiratory arrest. Patient stabilized. Started on beta renetta and aspirin. Supportive care. Seizure disorder. EEG Normal Morbid obesity. supportive care Disposition. Awaiting residential placement. History Interval history: No new issues overnight. Hospitalist Physical - Constitutional Vitals: Temp Pulse Resp BP Pulse Ox 97.9 F 98 H 18 145/52 98 09/09/18 07:39 09/09/18 09:37 09/09/18 07:54 09/09/18 09:37 09/09/18 07:54 General appearance: Present: no acute distress, other (intubated, chronically ill appearing) - EENT Eyes: Present: PERRL, EOM intact ENT: hearing intact, clear oral mucosa, dentition normal - Neck Neck: Present: supple, normal ROM - Respiratory Respiratory effort: normal Respiratory: bilateral: CTA - Cardiovascular Rhythm: regular Heart Sounds: Present: S1 & S2. Absent: gallop, rub - Extremities Extremities: no ischemia, No edema, Full ROM - Abdominal General gastrointestinal: soft, non-tender, non-distended, normal bowel sounds - Integumentary Integumentary: Present: clear, warm, dry - Neurologic Neurologic: CNII-XII intact, moves all extremities Results - Labs CBC & Chem 7: 09/09/18 05:52 09/09/18 05:52 Labs: Laboratory Last Values WBC 4.5 K/mm3 (4.5-11.0) 09/09/18 05:52 RBC 2.64 M/mm3 (3.65-5.03) L 09/09/18 05:52 Hgb 8.1 gm/dl (11.8-15.2) L 09/09/18 05:52 Hct 25.2 % (35.5-45.6) L 09/09/18 05:52 MCV 95 fl (84-94) H 09/09/18 05:52 MCH 31 pg (28-32) 09/09/18 05:52 MCHC 32 % (32-34) 09/09/18 05:52 RDW 17.8 % (13.2-15.2) H 09/09/18 05:52 Plt Count 140 K/mm3 (140-440) 09/09/18 05:52 Lymph % (Auto) 14.2 % (13.4-35.0) 09/09/18 05:52 Nance % (Auto) 14.3 % (0.0-7.3) H 09/09/18 05:52 Eos % (Auto) 2.9 % (0.0-4.3) 09/09/18 05:52 Baso % (Auto) 1.9 % (0.0-1.8) H 09/09/18 05:52 Lymph # 0.6 K/mm3 (1.2-5.4) L 09/09/18 05:52 Nance # 0.6 K/mm3 (0.0-0.8) 09/09/18 05:52 Eos # 0.1 K/mm3 (0.0-0.4) 09/09/18 05:52 Baso # 0.1 K/mm3 (0.0-0.1) 09/09/18 05:52 Add Manual Diff Complete 09/06/18 06:42 Total Counted 100 09/06/18 06:42 Seg Neutrophils % 66.7 % (40.0-70.0) 09/09/18 05:52 Seg Neuts % (Manual) 79.0 % (40.0-70.0) H 09/06/18 06:42 0 % 09/06/18 06:42 6.0 % (13.4-35.0) L 09/06/18 06:42 Reactive Lymphs % (Man) 0 % 09/06/18 06:42 12.0 % (0.0-7.3) H 09/06/18 06:42 1.0 % (0.0-4.3) 09/06/18 06:42 2.0 % (0.0-1.8) H 09/06/18 06:42 0 % 09/06/18 06:42 0 % 09/06/18 06:42 0 % 09/06/18 06:42 0 % 09/06/18 06:42 Nucleated RBC % Not Reportable 09/06/18 06:42 Seg Neutrophils # 3.0 K/mm3 (1.8-7.7) 09/09/18 05:52 Seg Neutrophils # Man 3.9 K/mm3 (1.8-7.7) 09/06/18 06:42 Band Neutrophils # 0.0 K/mm3 09/06/18 06:42 0.3 K/mm3 (1.2-5.4) L 09/06/18 06:42 Abs React Lymphs (Man) 0.0 K/mm3 09/06/18 06:42 0.6 K/mm3 (0.0-0.8) 09/06/18 06:42 0.0 K/mm3 (0.0-0.4) 09/06/18 06:42 0.1 K/mm3 (0.0-0.1) 09/06/18 06:42 0.0 K/mm3 09/06/18 06:42 0.0 K/mm3 09/06/18 06:42 0.0 K/mm3 09/06/18 06:42 Blast Cells # 0.0 K/mm3 09/06/18 06:42 WBC Morphology Not Reportable 09/06/18 06:42 Hypersegmented Neuts Not Reportable 09/06/18 06:42 Hyposegmented Neuts Not Reportable 09/06/18 06:42 Hypogranular Neuts Not Reportable 09/06/18 06:42 Not Reportable 09/06/18 06:42 Not Reportable 09/06/18 06:42 Not Reportable 09/06/18 06:42 Not Reportable 09/06/18 06:42 Not Reportable 09/06/18 06:42 Not Reportable 09/06/18 06:42 Consistent w auto 09/06/18 06:42 Not Reportable 09/06/18 06:42 Plt Clumps, EDTA Not Reportable 09/06/18 06:42 Not Reportable 09/06/18 06:42 Not Reportable 09/06/18 06:42 Not Reportable 09/06/18 06:42 Plt Morphology Comment Not Reportable 09/06/18 06:42 RBC Morphology Not Reportable 09/06/18 06:42 Dimorphic RBCs Not Reportable 09/06/18 06:42 Not Reportable 09/06/18 06:42 Not Reportable 09/06/18 06:42 Not Reportable 09/06/18 06:42 1+ 09/06/18 06:42 Not Reportable 09/06/18 06:42 1+ 09/06/18 06:42 Not Reportable 09/06/18 06:42 Not Reportable 09/06/18 06:42 Not Reportable 09/06/18 06:42 Not Reportable 09/06/18 06:42 Not Reportable 09/06/18 06:42 Not Reportable 09/06/18 06:42 Not Reportable 09/06/18 06:42 Not Reportable 09/06/18 06:42 Not Reportable 09/06/18 06:42 Not Reportable 09/06/18 06:42 Not Reportable 09/06/18 06:42 Not Reportable 09/06/18 06:42 Not Reportable 09/06/18 06:42 Acanthocytes (Spur) Not Reportable 09/06/18 06:42 Rouleaux Not Reportable 09/06/18 06:42 Not Reportable 09/06/18 06:42 Not Reportable 09/06/18 06:42 Not Reportable 09/06/18 06:42 Not Reportable 09/06/18 06:42 Hem Pathologist Commnt No 09/06/18 06:42 PT 15.6 Sec. (12.2-14.9) H 08/25/18 16:43 INR 1.27 (0.87-1.13) H 08/25/18 16:43 APTT 30.8 Sec. (24.2-36.6) 08/21/18 04:42 1978.25 ng/mlDDU (0-234) H 08/24/18 13:41 POC ABG pH 7.410 (7.35-7.45) 08/30/18 13:35 POC ABG pCO2 41.4 (35-45) 08/30/18 13:35 POC ABG pO2 99 (80-105) 08/30/18 13:35 POC ABG HCO3 26.2 (22-26 mml/L) 08/30/18 13:35 POC ABG Total CO2 27 (23-27mmol/L) 08/30/18 13:35 POC ABG O2 Sat 98 08/30/18 13:35 POC ABG Base Excess 2 ((-2) - (+3)mmol/L) 08/30/18 13:35 30 % 08/30/18 13:35 Sodium 136 mmol/L (137-145) L 09/09/18 05:52 Potassium 5.0 mmol/L (3.6-5.0) 09/09/18 05:52 Chloride 103.3 mmol/L (98-107) 09/09/18 05:52 Carbon Dioxide 25 mmol/L (22-30) 09/09/18 05:52 13 mmol/L 09/09/18 05:52 BUN 34 mg/dL (9-20) H 09/09/18 05:52 1.4 mg/dL (0.8-1.5) 09/09/18 05:52 Estimated GFR 50 ml/min 09/09/18 05:52 24 % 09/09/18 05:52 Glucose 88 mg/dL (75-100) 09/09/18 05:52 POC Glucose 95 (70-105) 09/09/18 07:39 317 Mosm/kg 08/31/18 13:54 Lactic Acid 1.30 mmol/L (0.7-2.0) 08/21/18 20:50 9.6 mg/dL (3.5-7.6) H 08/31/18 13:54 Calcium 8.1 mg/dL (8.4-10.2) L 09/09/18 05:52 Magnesium 2.00 mg/dL (1.7-2.3) 09/02/18 05:16 0.60 mg/dL (0.1-1.2) 08/28/18 04:49 AST 27 units/L (5-40) 08/28/18 04:49 ALT 12 units/L (7-56) 08/28/18 04:49 87 units/L (35-129) 08/28/18 04:49 222 units/L (55-170) H 08/21/18 10:45 CK-MB (CK-2) 9.2 ng/mL (0.0-4.0) H 08/21/18 10:45 CK-MB (CK-2) Rel Index 4.1 (0-4) H 08/21/18 10:45 0.020 ng/mL (0.00-0.029) 09/08/18 09:06 9.00 mg/dL (0.00-1.30) H 08/24/18 13:41 NT-Pro-B Natriuret Pep > 34364 pg/mL (0-900) H 08/28/18 04:49 5.4 g/dL (6.3-8.2) L 08/28/18 04:49 2.2 g/dL (3.9-5) L 08/28/18 04:49 0.7 % 08/28/18 04:49 Triglycerides 87 mg/dL (2-149) 08/21/18 04:42 Cholesterol 93 mg/dL (50-199) 08/21/18 04:42 44 mg/dL (50-130) L 08/21/18 04:42 41 mg/dL (40-59) 08/21/18 04:42 2.26 % 08/21/18 04:42 Yellow (Yellow) 08/21/18 15:03 Slightly-cloudy (Clear) 08/21/18 15:03 5.0 (5.0-7.0) 08/21/18 15:03 Ur Specific [place] 1.015 (1.003-1.030) 08/21/18 15:03 30 mg/dl mg/dL (Negative) 08/21/18 15:03 Neg mg/dL (Negative) 08/21/18 15:03 Neg mg/dL (Negative) 08/21/18 15:03 Mod (Negative) 08/21/18 15:03 Neg (Negative) 08/21/18 15:03 Neg (Negative) 08/21/18 15:03 < 2.0 mg/dL (<2.0) 08/21/18 15:03 Ur Leukocyte Esterase Tr (Negative) 08/21/18 15:03 13.0 /HPF (0.0-6.0) H 08/21/18 15:03 15.0 /HPF (0.0-6.0) 08/21/18 15:03 U Epithel Cells (Auto) 1.0 /HPF (0-13.0) 08/21/18 15:03 1+ /HPF (Negative) 08/21/18 15:03 Few /HPF 08/21/18 15:03 Random Vancomycin 10.5 ug/mL (0-40.0) 08/26/18 05:53 Levetiracetam 25.7 mcg/mL (12.0-46.0) 08/26/18 13:42 Hepatitis A IgM Ab Non-reactive (NonReactive) 08/27/18 23:25 Hep Bs Antigen Non-reactive (Negative) 08/27/18 23:25 Hep B Core IgM Ab Non-reactive (NonReactive) 08/27/18 23:25 Non-reactive (NonReactive) 08/27/18 23:25 Active Medications - Current Medications Current Medications: Generic Name Dose Route Start Last Admin Trade Name Freq PRN Reason Stop Dose Admin Acetaminophen 650 mg 08/21/18 06:31 09/01/18 21:12 Tylenol PO 650 mg Q4H PRN Administration Pain MILD(1-3)/Fever >100.5/COOK Albuterol/Ipratropium 1 ampul 08/24/18 20:00 09/09/18 07:54 Duoneb *Not For Prn Use* IH 1 ampul BIDRT LUIS Administration Lipase/Protease/Amylase 1 each 08/26/18 12:07 Pancreamaris [place] 10,500 Unit FEEDTUBE PRN PRN For Clogged Feeding Tube Arformoterol Tartrate 15 mcg 08/24/18 20:00 09/09/18 07:54 Brovana Nebu IH 15 mcg Q12HRT LUIS Administration Bisacodyl 10 mg 09/02/18 12:42 Dulcolax NM QDAY PRN Constipation Budesonide 0.5 mg 08/24/18 20:00 09/09/18 07:54 Pulmicort IH 0.5 mg Q12HRT LUIS Administration Dextrose 50 ml 08/21/18 06:48 D50w (25gm) Syringe IV PRN PRN Hypoglycemia Heparin Sodium (Porcine) 5,000 unit 08/22/18 10:00 09/09/18 09:37 Heparin SUB-Q 5,000 unit Q12HR LUIS Administration Hydralazine HCl 50 mg 09/08/18 10:00 09/09/18 09:37 Apresoline PO 50 mg BID LUIS Administration Insulin Human Lispro 0 unit 08/31/18 22:00 09/09/18 08:20 Humalog SUB-Q Not Given ACHS [facility] Protocol Levetiracetam 750 mg 09/04/18 22:00 09/09/18 09:36 Keppra PO 750 mg BID LUIS Administration Metoclopramide HCl 10 mg 09/05/18 18:35 09/06/18 12:00 Reglan IV 10 mg Q6H PRN Administration Nausea And Vomiting Morphine Sulfate 2 mg 08/26/18 14:24 08/30/18 01:40 Morphine IV 2 mg Q6H PRN Administration Pain, Moderate (4-6) Ondansetron HCl 4 mg 08/21/18 06:31 Zofran IV Q8H PRN Nausea And Vomiting Sodium Chloride 10 ml 08/21/18 10:00 09/09/18 09:45 Sodium Chloride Flush Syringe 10 Ml IV 10 ml BID LUIS Administration Zolpidem Tartrate 5 mg 09/09/18 00:19 Ambien PO QHS PRN Sleep Nutrition/Malnutrition Assess - Dietary Evaluation Nutrition/Malnutrition Findings: Nutrition Notes Start: 08/21/18 16:58 Freq: Status: Active Protocol: Document 09/05/18 14:18 TUAN (Rec: 09/05/18 14:30 TUAN [id number] [email or web address]) Nutrition Notes Initial or Follow up Reassessment Current Diagnosis Heart Failure Other Pertinent Diagnosis COPD exacerbation, pneu, s/p cardiac arrest Current Diet Cardiac/Consistent CHO with chopped meats + Glucerna daily Labs/Tests Reviewed Pertinent Medications Reviewed Height 5 ft 6 in Weight 146.3 kg [place] Body Weight (kg) 64.54 BMI 52.0 Subjective/Other Information PT has consumed 75% of meals since last assessment. He drinks ONS daily as well. Percent of energy/protein needs met: 97% energy 70% pro (includes ONS) Burn Absent Trauma Absent #1 Nutrition Diagnosis Inadequate oral intake As Evidenced by Signs and Symptoms PO intake meeting >50% energy and pro needs Diagnosis Progress(for reassessment Improved documentation) Is patient on ventilator? No Is Patient Ambulatory and/or Out of Bed No REE-([place]-confined to bed) 2592.060 Kcal/Kg value to use for calculation 12 Approximate Energy Requirements Using 1756 kcal/Kg Additional Notes Pro needs 1-1.2g/kg adjBW: 105-127g/day Fluid needs 1ml/kcal Nutrition Intervention Change Diet Order: Continue current Add Supplement/Snack (indicate name/kcal Glucerna Chocolate, [place] /protein ) 1 daily Provides kCal: 220 Provides Protein (gm) 10 Goal #1 Meet at least 75% of kcal and protein needs via PO intakes Follow-Up By: 09/12/18 Additional Comments F/U: stable intakes, wt
--- NOTE | 2018-09-09 14:10 | Progress Note ---
Assessment and Plan - Patient Problems (1) Acute on chronic respiratory failure Current Visit: Yes Status: Acute Plan to address problem: Acute on chronic respiratory failure reviewed chest x-ray with small effusions Remains intubated Wean oxygen as tolerated (2) Acute renal failure Current Visit: Yes Status: Acute Plan to address problem: Acute renal failure improved Has baseline history of chronic kidney disease stage III Admission creatinine is 4.3, Current creatinine 1.5 mg/DL I reviewed renal ultrasound with small right kidney and normal sized left kidney etiology of KHRIS is likely volume overload with tubular injury in the setting of sepsis and cardiac arrest , also with atrophic right kidney. Received HD following Vas cath placement appreciate Vascular surgery assistance Avoid nephrotoxic medications follow up with [place] neph[facility] Will sign off. (3) Hyperkalemia Current Visit: Yes Status: Acute Plan to address problem: Hyperkalemia:resolved K :5.0 Low potassium diet. (4) Cardiac arrest Current Visit: Yes Status: Acute Plan to address problem: Cardiac arrest Query secondary to cardiogenic causes Status post intubation now extubated. received broad-spectrum antibiotics Subjective Principal diagnosis: s/p cardiac arrest; severe sepsis; acute hypoxemic- hypercapnic resp failure Interval history: 73-year-old gentleman with medical history significant for hypertension, congestive heart failure, diabetes mellitus type 2, chronic kidney disease stage III admitted with complaints of shortness of breath for the past few days is on home oxygen 2 L nasal cannula prior to the arrival in the hospital developed pulseless electrical activity and code was called. Patient was seen today Doing well anxious to be discharge plans were to rehabilitation renal function is markedly improved Denies any orthopnea PND Objective - Vital Signs Vital signs: Vital Signs - 12hr 09/09/18 09/09/18 09/09/18 04:26 04:30 07:39 Temperature 98.4 F 97.9 F Pulse Rate 93 H 98 H Pulse Rate [ Anterior Bilateral Throughout] Respiratory 20 16 Rate Respiratory Rate [Anterior Bilateral Throughout] Blood Pressure 119/50 145/52 O2 Sat by Pulse 96 100 Oximetry 09/09/18 09/09/18 07:54 09:37 Temperature Pulse Rate 98 H Pulse Rate [ 86 Anterior Bilateral Throughout] Respiratory Rate Respiratory 18 Rate [Anterior Bilateral Throughout] Blood Pressure 145/52 O2 Sat by Pulse 98 Oximetry - General Appearance General appearance: well-developed, well-nourished EENT: ATNC, PERRL Neck: no JVD Respiratory: Present: Clear to Ascultation Cardiology: regular, S1S2 Gastrointestinal: normal, normoactive bowel sounds Integumentary: no rash Neurologic: alert and oriented x3, CN 3-12 intact Psychiatric: mood/affect appropriate - Lab 09/09/18 05:52 09/09/18 05:52 Most recent lab results Calcium 8.1 mg/dL (8.4-10.2) L 09/09/18 05:52 Magnesium 2.00 mg/dL (1.7-2.3) 09/02/18 05:16 - Imaging Chest x-ray: image reviewed (i reviewed cxr trace effusions) Medications & Allergies - Medications Allergies/Adverse Reactions: Allergies Penicillins Allergy (Verified 08/21/18 04:49) Unknown -cillins Allergy (Uncoded 08/21/18 04:49) Unknown Home Medications: Home Medications Medication Instructions Recorded Confirmed Last Taken Type AtorvaSTATin [Lipitor] 10 mg PO QHS 08/21/18 08/21/18 Unknown History Ferrous Sulfate [Feosol] 325 mg PO QDAY 08/21/18 08/21/18 Unknown History Melatonin [Melatonin 10MG CAP] 10 mg PO DAILY 08/21/18 08/21/18 Unknown History NIFEdipine [Nifedipine ER] 60 mg PO BID 08/21/18 08/21/18 Unknown History Sennosides Tab [Senokot] 1 tab PO HS 08/21/18 08/21/18 Unknown History Tamsulosin [Flomax] 2 cap PO HS 08/21/18 08/21/18 Unknown History Torsemide [Demadex] 20 mg PO DAILY 08/21/18 08/21/18 Unknown History Venlafaxine HCl [Venlafaxin ER] 75 mg PO QDAY 08/21/18 08/21/18 Unknown History buPROPion [Wellbutrin] 100 mg PO DAILY 08/21/18 08/21/18 Unknown History Active Medications: Generic Name Dose Route Start Last Admin Trade Name Freq PRN Reason Stop Dose Admin Acetaminophen 650 mg 08/21/18 06:31 09/01/18 21:12 Tylenol PO 650 mg Q4H PRN Administration Pain MILD(1-3)/Fever >100.5/COOK Albuterol/Ipratropium 1 ampul 08/24/18 20:00 09/09/18 07:54 Duoneb *Not For Prn Use* IH 1 ampul BIDRT LUIS Administration Lipase/Protease/Amylase 1 each 08/26/18 12:07 [place] 10,500 Unit FEEDTUBE PRN PRN For Clogged Feeding Tube Arformoterol Tartrate 15 mcg 08/24/18 20:00 09/09/18 07:54 Brovana Nebu IH 15 mcg Q12HRT LUIS Administration Bisacodyl 10 mg 09/02/18 12:42 Dulcolax SC QDAY PRN Constipation Budesonide 0.5 mg 08/24/18 20:00 09/09/18 07:54 Pulmicort IH 0.5 mg Q12HRT LUIS Administration Dextrose 50 ml 08/21/18 06:48 D50w (25gm) Syringe IV PRN PRN Hypoglycemia Heparin Sodium (Porcine) 5,000 unit 08/22/18 10:00 09/09/18 09:37 Heparin SUB-Q 5,000 unit Q12HR LUIS Administration Hydralazine HCl 50 mg 09/08/18 10:00 09/09/18 09:37 Apresoline PO 50 mg BID LUIS Administration Insulin Human Lispro 0 unit 08/31/18 22:00 09/09/18 08:20 Humalog SUB-Q Not Given A[facility]S [facility] Protocol Levetiracetam 750 mg 09/04/18 22:00 09/09/18 09:36 Keppra PO 750 mg BID LUIS Administration Metoclopramide HCl 10 mg 09/05/18 18:35 09/06/18 12:00 Reglan IV 10 mg Q6H PRN Administration Nausea And Vomiting Morphine Sulfate 2 mg 08/26/18 14:24 08/30/18 01:40 Morphine IV 2 mg Q6H PRN Administration Pain, Moderate (4-6) Ondansetron HCl 4 mg 08/21/18 06:31 Zofran IV Q8H PRN Nausea And Vomiting Sodium Chloride 10 ml 08/21/18 10:00 09/09/18 09:45 Sodium Chloride Flush Syringe 10 Ml IV 10 ml BID LUIS Administration Zolpidem Tartrate 5 mg 09/09/18 00:19 Ambien PO QHS PRN Sleep
--- NOTE | 2018-09-09 18:28 | Progress Note ---
Assessment and Plan Patient is alert and resting on 2 litres O2. CPAP standby at the room. O2 saturation is 99%. No acute respiratory distress. Patient is afebrile. No leukocytosis. - Patient Problems (1) COPD (chronic obstructive pulmonary disease) Current Visit: Yes Status: Acute Plan to address problem: CPAP with 2 litres O2. 2 litres O2 when he is not on BIPAP. Albuterol and atrovent aeorosol treatment q6 hours PRN for shortness of breath. Brovanna/ budesonide aeorsol treatment q 12 hours continue subq heparin. Patient is on reglan. (2) Acute on chronic respiratory failure Current Visit: Yes Status: Acute Plan to address problem: CPAP with 2 litres O2. 2 litres O2 when she is on BIPAP. Albuterol and atrovent aeorosol treatment q6 hours PRN for shortness of breath. Brovanna/ budesonide aeorsol treatment q 12 hours continue subq heparin. Patient is on reglan. (3) Acute HFrEF (heart failure with reduced ejection fraction) Current Visit: Yes Status: Resolved Plan to address problem: Management as per cardiology. (4) Acute renal failure Current Visit: Yes Status: Acute Plan to address problem: Management as per Nephrology. (5) Altered mental status Current Visit: Yes Status: Acute Plan to address problem: Management as per primary care and neurology. (6) Bacteremia due to coagulase-negative Staphylococcus Current Visit: Yes Status: Acute Plan to address problem: management as per infectious diseases. (7) Anemia Current Visit: Yes Status: Acute Plan to address problem: Management as per primary care. Subjective Date of service: 09/09/18 Principal diagnosis: s/p cardiac arrest; severe sepsis; acute hypoxemic- hypercapnic resp failure Interval history: Patient is alert and resting on 2 litres O2. CPAP standby at the room. O2 saturation is 99%. No acute respiratory distress. Patient is afebrile. No leukocytosis. Objective Vital Signs - 12hr 09/09/18 09/09/18 09/09/18 07:39 07:54 08:04 Temperature 97.9 F Pulse Rate 98 H Pulse Rate [ 86 107 H Anterior Bilateral Throughout] Pulse Rate [ Apical] Pulse Rate [ From Monitor] Respiratory 16 Rate Respiratory 18 20 Rate [Anterior Bilateral Throughout] Blood Pressure 145/52 O2 Sat by Pulse 100 98 Oximetry 09/09/18 09/09/18 09/09/18 09:37 10:00 12:46 Temperature 97.8 F Pulse Rate 98 H 90 Pulse Rate [ Anterior Bilateral Throughout] Pulse Rate [ 98 H Apical] Pulse Rate [ 98 H From Monitor] Respiratory 20 16 Rate Respiratory Rate [Anterior Bilateral Throughout] Blood Pressure 145/52 152/75 O2 Sat by Pulse 99 Oximetry Constitutional: no acute distress, alert Eyes: non-icteric ENT: oropharynx moist, other (extubated) Neck: supple, no JVD, other (short neck) Effort: mildly labored Ascultation: Bilateral: diminished breath sounds, rhonchi (improved overall) Percussion: Bilateral: not dull Cardiovascular: regular rate and rhythm, other (S1,S2, no murmurs, no gallops or rubs) Gastrointestinal: normoactive bowel sounds, soft, non-tender, non-distended, ot her (Mad[place] catheter in place, minimal urine tea colored) Integumentary: normal Extremities: no cyanosis, no edema, pink and warm, pulses normal, no ischemia or petechiae Neurologic: normal mental status, non-focal exam (grossly), pupils equal and round, CN II-XII normal Psychiatric: mood appropriate, affect normal CBC and BMP: 09/09/18 05:52 09/09/18 05:52 ABG, PT/INR, D-dimer: ABG POC ABG pH 7.410 (7.35-7.45) 08/30/18 13:35 POC ABG pCO2 41.4 (35-45) 08/30/18 13:35 POC ABG pO2 99 (80-105) 08/30/18 13:35 POC ABG HCO3 26.2 (22-26 mml/L) 08/30/18 13:35 POC ABG Total CO2 27 (23-27mmol/L) 08/30/18 13:35 POC ABG O2 Sat 98 08/30/18 13:35 PT/INR, D-dimer PT 15.6 Sec. (12.2-14.9) H 08/25/18 16:43 INR 1.27 (0.87-1.13) H 08/25/18 16:43 1978.25 ng/mlDDU (0-234) H 08/24/18 13:41 Abnormal lab findings: Abnormal Labs 08/21/18 08/21/18 08/21/18 04:42 04:42 04:42 WBC 19.1 H RBC 2.49 L Hgb 7.7 L Hct 24.5 L MCV 98 H RDW 17.7 H Plt Count Lymph % (Auto) [place] % (Auto) Baso % (Auto) Lymph # Seg Neuts % (Manual) 84.0 H Lymphocytes % (Manual) 7.0 L Monocytes % (Manual) 9.0 H Basophils % (Manual) Nucleated RBC % Seg Neutrophils # Man 16.0 H Lymphocytes # (Manual) Monocytes # (Manual) 1.7 H PT 20.1 H INR 1.76 H D-Dimer POC ABG pH POC ABG pCO2 POC ABG pO2 Sodium Potassium Chloride Carbon Dioxide BUN Creatinine Glucose POC Glucose Lactic Acid Uric Acid Calcium Total Bilirubin AST ALT Total Creatine Kinase CK-MB (CK-2) CK-MB (CK-2) Rel Index Troponin T 0.032 H C-Reactive Protein NT-Pro-B Natriuret Pep Total Protein Albumin LDL Cholesterol Direct 44 L Urine WBC (Auto) 08/21/18 08/21/18 08/21/18 04:42 04:42 04:42 WBC RBC Hgb Hct MCV RDW Plt Count Lymph % (Auto) [place] % (Auto) Baso % (Auto) Lymph # Seg Neuts % (Manual) Lymphocytes % (Manual) Monocytes % (Manual) Basophils % (Manual) Nucleated RBC % Seg Neutrophils # Man Lymphocytes # (Manual) Monocytes # (Manual) PT INR D-Dimer POC ABG pH POC ABG pCO2 POC ABG pO2 Sodium Potassium 6.0 H Chloride Carbon Dioxide 15 L BUN 57 H Creatinine 4.3 H Glucose 111 H POC Glucose Lactic Acid 5.80 H* Uric Acid Calcium Total Bilirubin 1.80 H AST 212 H ALT 94 H Total Creatine Kinase CK-MB (CK-2) CK-MB (CK-2) Rel Index Troponin T C-Reactive Protein NT-Pro-B Natriuret Pep 75333 H Total Protein Albumin 3.2 L LDL Cholesterol Direct Urine WBC (Auto) 08/21/18 08/21/18 08/21/18 05:08 05:58 05:58 WBC RBC Hgb Hct MCV RDW Plt Count Lymph % (Auto) [place] % (Auto) Baso % (Auto) Lymph # Seg Neuts % (Manual) Lymphocytes % (Manual) Monocytes % (Manual) Basophils % (Manual) Nucleated RBC % Seg Neutrophils # Man Lymphocytes # (Manual) Monocytes # (Manual) PT INR D-Dimer POC ABG pH 7.164 L POC ABG pCO2 46.3 H POC ABG pO2 229 H Sodium Potassium Chloride Carbon Dioxide BUN Creatinine Glucose POC Glucose Lactic Acid 5.10 H* Uric Acid Calcium Total Bilirubin AST ALT Total Creatine Kinase CK-MB (CK-2) CK-MB (CK-2) Rel Index Troponin T 0.035 H C-Reactive Protein NT-Pro-B Natriuret Pep Total Protein Albumin LDL Cholesterol Direct Urine WBC (Auto) 08/21/18 08/21/18 08/21/18 06:45 06:45 06:53 WBC RBC Hgb Hct MCV RDW Plt Count Lymph % (Auto) [place] % (Auto) Baso % (Auto) Lymph # Seg Neuts % (Manual) Lymphocytes % (Manual) Monocytes % (Manual) Basophils % (Manual) Nucleated RBC % Seg Neutrophils # Man Lymphocytes # (Manual) Monocytes # (Manual) PT INR D-Dimer POC ABG pH 7.160 L POC ABG pCO2 46.8 H POC ABG pO2 Sodium Potassium Chloride Carbon Dioxide BUN Creatinine Glucose POC Glucose Lactic Acid 4.70 H* Uric Acid Calcium Total Bilirubin AST ALT Total Creatine Kinase 234 H CK-MB (CK-2) 9.1 H CK-MB (CK-2) Rel Index Troponin T 0.032 H C-Reactive Protein NT-Pro-B Natriuret Pep Total Protein Albumin LDL Cholesterol Direct Urine WBC (Auto) 08/21/18 08/21/18 08/21/18 10:43 10:43 10:45 WBC RBC Hgb Hct MCV RDW Plt Count Lymph % (Auto) [place] % (Auto) Baso % (Auto) Lymph # Seg Neuts % (Manual) Lymphocytes % (Manual) Monocytes % (Manual) Basophils % (Manual) Nucleated RBC % Seg Neutrophils # Man Lymphocytes # (Manual) Monocytes # (Manual) PT INR D-Dimer POC ABG pH POC ABG pCO2 POC ABG pO2 Sodium Potassium Chloride Carbon Dioxide 17 L BUN 59 H Creatinine 4.2 H Glucose POC Glucose Lactic Acid 3.70 H* Uric Acid Calcium Total Bilirubin AST ALT Total Creatine Kinase 222 H CK-MB (CK-2) 9.2 H CK-MB (CK-2) Rel Index 4.1 H Troponin T 0.044 H D C-Reactive Protein NT-Pro-B Natriuret Pep Total Protein Albumin LDL Cholesterol Direct Urine WBC (Auto) 08/21/18 08/21/18 08/21/18 11:38 12:33 15:03 WBC RBC Hgb Hct MCV RDW Plt Count Lymph % (Auto) [place] % (Auto) Baso % (Auto) Lymph # Seg Neuts % (Manual) Lymphocytes % (Manual) Monocytes % (Manual) Basophils % (Manual) Nucleated RBC % Seg Neutrophils # Man Lymphocytes # (Manual) Monocytes # (Manual) PT INR D-Dimer POC ABG pH 7.250 L POC ABG pCO2 POC ABG pO2 121 H Sodium Potassium Chloride Carbon Dioxide BUN Creatinine Glucose POC Glucose 129 H Lactic Acid Uric Acid Calcium Total Bilirubin AST ALT Total Creatine Kinase CK-MB (CK-2) CK-MB (CK-2) Rel Index Troponin T C-Reactive Protein NT-Pro-B Natriuret Pep Total Protein Albumin LDL Cholesterol Direct Urine WBC (Auto) 13.0 H 08/21/18 08/22/18 08/22/18 15:47 00:01 04:27 WBC RBC Hgb Hct MCV RDW Plt Count Lymph % (Auto) [place] % (Auto) Baso % (Auto) Lymph # Seg Neuts % (Manual) Lymphocytes % (Manual) Monocytes % (Manual) Basophils % (Manual) Nucleated RBC % Seg Neutrophils # Man Lymphocytes # (Manual) Monocytes # (Manual) PT INR D-Dimer POC ABG pH 7.457 H POC ABG pCO2 POC ABG pO2 117 H Sodium Potassium Chloride Carbon Dioxide BUN Creatinine Glucose POC Glucose 211 H Lactic Acid 2.70 H* Uric Acid Calcium Total Bilirubin AST ALT Total Creatine Kinase CK-MB (CK-2) CK-MB (CK-2) Rel Index Troponin T C-Reactive Protein NT-Pro-B Natriuret Pep Total Protein Albumin LDL Cholesterol Direct Urine WBC (Auto) 08/22/18 08/22/18 08/22/18 05:46 06:10 06:10 WBC RBC 2.27 L Hgb 7.0 L Hct 21.2 L MCV RDW 16.8 H Plt Count 129 L Lymph % (Auto) [place] % (Auto) Baso % (Auto) Lymph # Seg Neuts % (Manual) 95.0 H Lymphocytes % (Manual) 1.0 L Monocytes % (Manual) Basophils % (Manual) Nucleated RBC % 1.0 H Seg Neutrophils # Man 7.8 H Lymphocytes # (Manual) 0.1 L Monocytes # (Manual) PT INR D-Dimer POC ABG pH POC ABG pCO2 POC ABG pO2 Sodium Potassium Chloride Carbon Dioxide 20 L BUN 63 H Creatinine 3.9 H Glucose 205 H POC Glucose 223 H Lactic Acid Uric Acid Calcium Total Bilirubin AST ALT Total Creatine Kinase CK-MB (CK-2) CK-MB (CK-2) Rel Index Troponin T C-Reactive Protein NT-Pro-B Natriuret Pep Total Protein Albumin LDL Cholesterol Direct Urine WBC (Auto) 08/22/18 08/22/18 08/22/18 06:10 12:57 16:21 WBC RBC Hgb Hct MCV RDW Plt Count Lymph % (Auto) [place] % (Auto) Baso % (Auto) Lymph # Seg Neuts % (Manual) Lymphocytes % (Manual) Monocytes % (Manual) Basophils % (Manual) Nucleated RBC % Seg Neutrophils # Man Lymphocytes # (Manual) Monocytes # (Manual) PT INR D-Dimer POC ABG pH 7.477 H POC ABG pCO2 POC ABG pO2 Sodium Potassium Chloride Carbon Dioxide BUN Creatinine Glucose POC Glucose 166 H Lactic Acid Uric Acid Calcium Total Bilirubin AST ALT Total Creatine Kinase CK-MB (CK-2) CK-MB (CK-2) Rel Index Troponin T C-Reactive Protein 23.60 H NT-Pro-B Natriuret Pep Total Protein Albumin LDL Cholesterol Direct Urine WBC (Auto) 08/22/18 08/22/18 08/23/18 17:41 23:42 04:38 WBC RBC Hgb Hct MCV RDW Plt Count Lymph % (Auto) [place] % (Auto) Baso % (Auto) Lymph # Seg Neuts % (Manual) Lymphocytes % (Manual) Monocytes % (Manual) Basophils % (Manual) Nucleated RBC % Seg Neutrophils # Man Lymphocytes # (Manual) Monocytes # (Manual) PT INR D-Dimer POC ABG pH 7.249 L POC ABG pCO2 53.5 H POC ABG pO2 73 L Sodium Potassium Chloride Carbon Dioxide BUN Creatinine Glucose POC Glucose 131 H 168 H Lactic Acid Uric Acid Calcium Total Bilirubin AST ALT Total Creatine Kinase CK-MB (CK-2) CK-MB (CK-2) Rel Index Troponin T C-Reactive Protein NT-Pro-B Natriuret Pep Total Protein Albumin LDL Cholesterol Direct Urine WBC (Auto) 08/23/18 08/23/18 08/23/18 04:52 04:52 04:52 WBC RBC 2.39 L Hgb 7.5 L Hct 22.8 L MCV 95 H RDW 17.6 H Plt Count Lymph % (Auto) [place] % (Auto) Baso % (Auto) Lymph # Seg Neuts % (Manual) Lymphocytes % (Manual) Monocytes % (Manual) Basophils % (Manual) Nucleated RBC % Seg Neutrophils # Man Lymphocytes # (Manual) Monocytes # (Manual) PT INR D-Dimer POC ABG pH POC ABG pCO2 POC ABG pO2 Sodium Potassium 5.6 H 5.6 H Chloride Carbon Dioxide 21 L BUN 71 H 72 H Creatinine 4.1 H 4.0 H Glucose 141 H 140 H POC Glucose Lactic Acid Uric Acid Calcium 8.3 L 8.2 L Total Bilirubin AST 247 H ALT 220 H Total Creatine Kinase CK-MB (CK-2) CK-MB (CK-2) Rel Index Troponin T C-Reactive Protein NT-Pro-B Natriuret Pep Total Protein Albumin 2.8 L LDL Cholesterol Direct Urine WBC (Auto) 08/23/18 08/23/18 08/23/18 05:50 08:38 12:21 WBC RBC Hgb Hct MCV RDW Plt Count Lymph % (Auto) [place] % (Auto) Baso % (Auto) Lymph # Seg Neuts % (Manual) Lymphocytes % (Manual) Monocytes % (Manual) Basophils % (Manual) Nucleated RBC % Seg Neutrophils # Man Lymphocytes # (Manual) Monocytes # (Manual) PT INR D-Dimer POC ABG pH POC ABG pCO2 POC ABG pO2 Sodium Potassium Chloride Carbon Dioxide BUN Creatinine Glucose POC Glucose 160 H 177 H Lactic Acid Uric Acid Calcium Total Bilirubin AST ALT Total Creatine Kinase CK-MB (CK-2) CK-MB (CK-2) Rel Index Troponin T C-Reactive Protein NT-Pro-B Natriuret Pep 05970 H Total Protein Albumin LDL Cholesterol Direct Urine WBC (Auto) 08/23/18 08/23/18 08/23/18 12:36 14:24 18:05 WBC RBC Hgb Hct MCV RDW Plt Count Lymph % (Auto) [place] % (Auto) Baso % (Auto) Lymph # Seg Neuts % (Manual) Lymphocytes % (Manual) Monocytes % (Manual) Basophils % (Manual) Nucleated RBC % Seg Neutrophils # Man Lymphocytes # (Manual) Monocytes # (Manual) PT INR D-Dimer POC ABG pH 7.337 L POC ABG pCO2 POC ABG pO2 145 H Sodium 136 L Potassium 5.2 H Chloride Carbon Dioxide BUN 76 H Creatinine 4.2 H Glucose 158 H POC Glucose 169 H Lactic Acid Uric Acid Calcium 8.1 L Total Bilirubin AST ALT Total Creatine Kinase CK-MB (CK-2) CK-MB (CK-2) Rel Index Troponin T C-Reactive Protein NT-Pro-B Natriuret Pep Total Protein Albumin LDL Cholesterol Direct Urine WBC (Auto) 08/23/18 08/23/18 08/24/18 22:43 23:42 05:16 WBC RBC Hgb Hct MCV RDW Plt Count Lymph % (Auto) [place] % (Auto) Baso % (Auto) Lymph # Seg Neuts % (Manual) Lymphocytes % (Manual) Monocytes % (Manual) Basophils % (Manual) Nucleated RBC % Seg Neutrophils # Man Lymphocytes # (Manual) Monocytes # (Manual) PT INR D-Dimer POC ABG pH POC ABG pCO2 POC ABG pO2 Sodium 136 L Potassium 5.3 H 5.2 H Chloride 97.9 L Carbon Dioxide BUN 80 H 86 H Creatinine 4.0 H 4.3 H Glucose 164 H 202 H POC Glucose 183 H Lactic Acid Uric Acid Calcium 7.9 L Total Bilirubin AST ALT Total Creatine Kinase CK-MB (CK-2) CK-MB (CK-2) Rel Index Troponin T C-Reactive Protein NT-Pro-B Natriuret Pep Total Protein Albumin LDL Cholesterol Direct Urine WBC (Auto) 08/24/18 08/24/18 08/24/18 05:21 05:29 10:10 WBC RBC 2.47 L Hgb 7.5 L Hct 23.3 L MCV RDW 17.5 H Plt Count 118 L Lymph % (Auto) [place] % (Auto) Baso % (Auto) Lymph # Seg Neuts % (Manual) 92.0 H Lymphocytes % (Manual) 2.0 L Monocytes % (Manual) Basophils % (Manual) Nucleated RBC % Seg Neutrophils # Man 8.8 H Lymphocytes # (Manual) 0.2 L Monocytes # (Manual) PT INR D-Dimer POC ABG pH 7.243 L POC ABG pCO2 56.8 H POC ABG pO2 Sodium Potassium Chloride Carbon Dioxide BUN Creatinine Glucose POC Glucose 209 H Lactic Acid Uric Acid Calcium Total Bilirubin AST ALT Total Creatine Kinase CK-MB (CK-2) CK-MB (CK-2) Rel Index Troponin T C-Reactive Protein NT-Pro-B Natriuret Pep Total Protein Albumin LDL Cholesterol Direct Urine WBC (Auto) 08/24/18 08/24/18 08/24/18 10:10 11:19 13:41 WBC RBC Hgb Hct MCV RDW Plt Count Lymph % (Auto) [place] % (Auto) Baso % (Auto) Lymph # Seg Neuts % (Manual) Lymphocytes % (Manual) Monocytes % (Manual) Basophils % (Manual) Nucleated RBC % Seg Neutrophils # Man Lymphocytes # (Manual) Monocytes # (Manual) PT INR D-Dimer 1978.25 H POC ABG pH POC ABG pCO2 POC ABG pO2 Sodium Potassium Chloride Carbon Dioxide BUN Creatinine Glucose POC Glucose 212 H Lactic Acid Uric Acid Calcium Total Bilirubin AST ALT Total Creatine Kinase CK-MB (CK-2) CK-MB (CK-2) Rel Index Troponin T C-Reactive Protein NT-Pro-B Natriuret Pep 56324 H Total Protein Albumin LDL Cholesterol Direct Urine WBC (Auto) 08/24/18 08/24/18 08/24/18 13:41 14:27 17:23 WBC RBC Hgb Hct MCV RDW Plt Count Lymph % (Auto) [place] % (Auto) Baso % (Auto) Lymph # Seg Neuts % (Manual) Lymphocytes % (Manual) Monocytes % (Manual) Basophils % (Manual) Nucleated RBC % Seg Neutrophils # Man Lymphocytes # (Manual) Monocytes # (Manual) PT INR D-Dimer POC ABG pH POC ABG pCO2 POC ABG pO2 Sodium 136 L Potassium 5.1 H Chloride 97.8 L Carbon Dioxide BUN 90 H Creatinine 4.1 H Glucose 157 H POC Glucose 155 H Lactic Acid Uric Acid Calcium 8.0 L Total Bilirubin AST ALT Total Creatine Kinase CK-MB (CK-2) CK-MB (CK-2) Rel Index Troponin T C-Reactive Protein 9.00 H NT-Pro-B Natriuret Pep Total Protein Albumin LDL Cholesterol Direct Urine WBC (Auto) 08/25/18 08/25/18 08/25/18 00:38 05:22 05:57 WBC RBC Hgb Hct MCV RDW Plt Count Lymph % (Auto) [place] % (Auto) Baso % (Auto) Lymph # Seg Neuts % (Manual) Lymphocytes % (Manual) Monocytes % (Manual) Basophils % (Manual) Nucleated RBC % Seg Neutrophils # Man Lymphocytes # (Manual) Monocytes # (Manual) PT INR D-Dimer POC ABG pH 7.238 L POC ABG pCO2 58.2 H POC ABG pO2 Sodium Potassium 5.4 H Chloride Carbon Dioxide BUN 98 H Creatinine 4.3 H Glucose 217 H POC Glucose 176 H Lactic Acid Uric Acid Calcium 8.3 L Total Bilirubin AST ALT Total Creatine Kinase CK-MB (CK-2) CK-MB (CK-2) Rel Index Troponin T C-Reactive Protein NT-Pro-B Natriuret Pep 49756 H Total Protein Albumin LDL Cholesterol Direct Urine WBC (Auto) 08/25/18 08/25/18 08/25/18 06:56 08:59 11:38 WBC RBC Hgb Hct MCV RDW Plt Count Lymph % (Auto) [place] % (Auto) Baso % (Auto) Lymph # Seg Neuts % (Manual) Lymphocytes % (Manual) Monocytes % (Manual) Basophils % (Manual) Nucleated RBC % Seg Neutrophils # Man Lymphocytes # (Manual) Monocytes # (Manual) PT INR D-Dimer POC ABG pH 7.348 L POC ABG pCO2 48.6 H POC ABG pO2 Sodium Potassium Chloride Carbon Dioxide BUN Creatinine Glucose POC Glucose 247 H 235 H Lactic Acid Uric Acid Calcium Total Bilirubin AST ALT Total Creatine Kinase CK-MB (CK-2) CK-MB (CK-2) Rel Index Troponin T C-Reactive Protein NT-Pro-B Natriuret Pep Total Protein Albumin LDL Cholesterol Direct Urine WBC (Auto) 08/25/18 08/25/18 08/25/18 12:29 16:43 16:43 WBC 14.7 H RBC 2.90 L Hgb 8.9 L Hct 27.4 L MCV 95 H RDW 17.3 H Plt Count 119 L Lymph % (Auto) [place] % (Auto) Baso % (Auto) Lymph # Seg Neuts % (Manual) 94.0 H Lymphocytes % (Manual) 2.0 L Monocytes % (Manual) Basophils % (Manual) Nucleated RBC % Seg Neutrophils # Man 13.8 H Lymphocytes # (Manual) 0.3 L Monocytes # (Manual) PT 15.6 H INR 1.27 H D-Dimer POC ABG pH POC ABG pCO2 POC ABG pO2 Sodium Potassium Chloride Carbon Dioxide BUN Creatinine Glucose POC Glucose 237 H Lactic Acid Uric Acid Calcium Total Bilirubin AST ALT Total Creatine Kinase CK-MB (CK-2) CK-MB (CK-2) Rel Index Troponin T C-Reactive Protein NT-Pro-B Natriuret Pep Total Protein Albumin LDL Cholesterol Direct Urine WBC (Auto) 08/25/18 08/26/18 08/26/18 17:22 00:16 04:56 WBC RBC Hgb Hct MCV RDW Plt Count Lymph % (Auto) [place] % (Auto) Baso % (Auto) Lymph # Seg Neuts % (Manual) Lymphocytes % (Manual) Monocytes % (Manual) Basophils % (Manual) Nucleated RBC % Seg Neutrophils # Man Lymphocytes # (Manual) Monocytes # (Manual) PT INR D-Dimer POC ABG pH POC ABG pCO2 45.2 H POC ABG pO2 Sodium Potassium Chloride Carbon Dioxide BUN Creatinine Glucose POC Glucose 200 H 180 H Lactic Acid Uric Acid Calcium Total Bilirubin AST ALT Total Creatine Kinase CK-MB (CK-2) CK-MB (CK-2) Rel Index Troponin T C-Reactive Protein NT-Pro-B Natriuret Pep Total Protein Albumin LDL Cholesterol Direct Urine WBC (Auto) 08/26/18 08/26/18 08/26/18 05:53 06:20 08:48 WBC RBC Hgb Hct MCV RDW Plt Count Lymph % (Auto) [place] % (Auto) Baso % (Auto) Lymph # Seg Neuts % (Manual) Lymphocytes % (Manual) Monocytes % (Manual) Basophils % (Manual) Nucleated RBC % Seg Neutrophils # Man Lymphocytes # (Manual) Monocytes # (Manual) PT INR D-Dimer POC ABG pH POC ABG pCO2 POC ABG pO2 Sodium Potassium Chloride Carbon Dioxide BUN 106 H Creatinine 3.9 H Glucose 137 H POC Glucose 131 H 126 H Lactic Acid Uric Acid Calcium 8.1 L Total Bilirubin AST ALT Total Creatine Kinase CK-MB (CK-2) CK-MB (CK-2) Rel Index Troponin T C-Reactive Protein NT-Pro-B Natriuret Pep > 12027 H Total Protein Albumin LDL Cholesterol Direct Urine WBC (Auto) 08/26/18 08/26/18 08/26/18 11:39 17:33 18:02 WBC RBC Hgb Hct MCV RDW Plt Count Lymph % (Auto) [place] % (Auto) Baso % (Auto) Lymph # Seg Neuts % (Manual) Lymphocytes % (Manual) Monocytes % (Manual) Basophils % (Manual) Nucleated RBC % Seg Neutrophils # Man Lymphocytes # (Manual) Monocytes # (Manual) PT INR D-Dimer POC ABG pH POC ABG pCO2 POC ABG pO2 58 L Sodium Potassium Chloride Carbon Dioxide BUN Creatinine Glucose POC Glucose 156 H 173 H Lactic Acid Uric Acid Calcium Total Bilirubin AST ALT Total Creatine Kinase CK-MB (CK-2) CK-MB (CK-2) Rel Index Troponin T C-Reactive Protein NT-Pro-B Natriuret Pep Total Protein Albumin LDL Cholesterol Direct Urine WBC (Auto) 08/26/18 08/27/18 08/27/18 23:12 04:59 11:51 WBC RBC Hgb Hct MCV RDW Plt Count Lymph % (Auto) [place] % (Auto) Baso % (Auto) Lymph # Seg Neuts % (Manual) Lymphocytes % (Manual) Monocytes % (Manual) Basophils % (Manual) Nucleated RBC % Seg Neutrophils # Man Lymphocytes # (Manual) Monocytes # (Manual) PT INR D-Dimer POC ABG pH 7.563 H POC ABG pCO2 < 30 L POC ABG pO2 69 L Sodium Potassium Chloride Carbon Dioxide BUN Creatinine Glucose POC Glucose 130 H 107 H Lactic Acid Uric Acid Calcium Total Bilirubin AST ALT Total Creatine Kinase CK-MB (CK-2) CK-MB (CK-2) Rel Index Troponin T C-Reactive Protein NT-Pro-B Natriuret Pep Total Protein Albumin LDL Cholesterol Direct Urine WBC (Auto) 08/27/18 08/27/18 08/27/18 11:58 11:58 11:58 WBC RBC 2.66 L Hgb 8.1 L Hct 24.7 L MCV RDW 16.7 H Plt Count Lymph % (Auto) [place] % (Auto) Baso % (Auto) Lymph # Seg Neuts % (Manual) Lymphocytes % (Manual) Monocytes % (Manual) Basophils % (Manual) Nucleated RBC % Seg Neutrophils # Man Lymphocytes # (Manual) Monocytes # (Manual) PT INR D-Dimer POC ABG pH POC ABG pCO2 POC ABG pO2 Sodium Potassium Chloride Carbon Dioxide BUN 71 H Creatinine 2.9 H Glucose POC Glucose Lactic Acid Uric Acid Calcium 7.6 L Total Bilirubin AST ALT Total Creatine Kinase CK-MB (CK-2) CK-MB (CK-2) Rel Index Troponin T C-Reactive Protein NT-Pro-B Natriuret Pep > 47811 H Total Protein 6.1 L Albumin 2.4 L LDL Cholesterol Direct Urine WBC (Auto) 08/28/18 08/28/18 08/28/18 04:38 04:49 04:49 WBC RBC 2.65 L Hgb 8.3 L Hct 25.3 L MCV 96 H RDW 17.3 H Plt Count 83 L Lymph % (Auto) [place] % (Auto) Baso % (Auto) Lymph # Seg Neuts % (Manual) Lymphocytes % (Manual) Monocytes % (Manual) Basophils % (Manual) Nucleated RBC % Seg Neutrophils # Man Lymphocytes # (Manual) Monocytes # (Manual) PT INR D-Dimer POC ABG pH POC ABG pCO2 POC ABG pO2 112 H Sodium Potassium Chloride Carbon Dioxide BUN Creatinine Glucose POC Glucose Lactic Acid Uric Acid Calcium Total Bilirubin AST ALT Total Creatine Kinase CK-MB (CK-2) CK-MB (CK-2) Rel Index Troponin T C-Reactive Protein NT-Pro-B Natriuret Pep > 36874 H Total Protein Albumin LDL Cholesterol Direct Urine WBC (Auto) 08/28/18 08/28/18 08/29/18 04:49 14:24 00:11 WBC RBC Hgb Hct MCV RDW Plt Count Lymph % (Auto) [place] % (Auto) Baso % (Auto) Lymph # Seg Neuts % (Manual) Lymphocytes % (Manual) Monocytes % (Manual) Basophils % (Manual) Nucleated RBC % Seg Neutrophils # Man Lymphocytes # (Manual) Monocytes # (Manual) PT INR D-Dimer POC ABG pH 7.278 L POC ABG pCO2 57.9 H POC ABG pO2 79 L Sodium Potassium Chloride Carbon Dioxide BUN 69 H Creatinine 2.4 H Glucose POC Glucose 171 H Lactic Acid Uric Acid Calcium 7.7 L Total Bilirubin AST ALT Total Creatine Kinase CK-MB (CK-2) CK-MB (CK-2) Rel Index Troponin T C-Reactive Protein NT-Pro-B Natriuret Pep Total Protein 5.4 L Albumin 2.2 L LDL Cholesterol Direct Urine WBC (Auto) 08/29/18 08/29/18 08/29/18 04:39 05:35 05:35 WBC 13.6 H RBC 3.09 L Hgb 9.4 L Hct 29.5 L MCV 96 H RDW 17.9 H Plt Count 127 L Lymph % (Auto) [place] % (Auto) Baso % (Auto) Lymph # Seg Neuts % (Manual) Lymphocytes % (Manual) Monocytes % (Manual) Basophils % (Manual) Nucleated RBC % Seg Neutrophils # Man Lymphocytes # (Manual) Monocytes # (Manual) PT INR D-Dimer POC ABG pH 7.312 L POC ABG pCO2 57.6 H POC ABG pO2 79 L Sodium Potassium Chloride Carbon Dioxide BUN 42 H Creatinine 1.9 H Glucose 107 H POC Glucose Lactic Acid Uric Acid Calcium Total Bilirubin AST ALT Total Creatine Kinase CK-MB (CK-2) CK-MB (CK-2) Rel Index Troponin T C-Reactive Protein NT-Pro-B Natriuret Pep Total Protein Albumin LDL Cholesterol Direct Urine WBC (Auto) 08/29/18 08/29/18 08/29/18 05:48 11:37 15:32 WBC RBC Hgb Hct MCV RDW Plt Count Lymph % (Auto) [place] % (Auto) Baso % (Auto) Lymph # Seg Neuts % (Manual) Lymphocytes % (Manual) Monocytes % (Manual) Basophils % (Manual) Nucleated RBC % Seg Neutrophils # Man Lymphocytes # (Manual) Monocytes # (Manual) PT INR D-Dimer POC ABG pH POC ABG pCO2 47.0 H POC ABG pO2 78 L Sodium Potassium Chloride Carbon Dioxide BUN Creatinine Glucose POC Glucose 114 H 116 H Lactic Acid Uric Acid Calcium Total Bilirubin AST ALT Total Creatine Kinase CK-MB (CK-2) CK-MB (CK-2) Rel Index Troponin T C-Reactive Protein NT-Pro-B Natriuret Pep Total Protein Albumin LDL Cholesterol Direct Urine WBC (Auto) 08/29/18 08/30/18 08/30/18 17:28 00:17 04:41 WBC RBC Hgb Hct MCV RDW Plt Count Lymph % (Auto) [place] % (Auto) Baso % (Auto) Lymph # Seg Neuts % (Manual) Lymphocytes % (Manual) Monocytes % (Manual) Basophils % (Manual) Nucleated RBC % Seg Neutrophils # Man Lymphocytes # (Manual) Monocytes # (Manual) PT INR D-Dimer POC ABG pH POC ABG pCO2 48.1 H POC ABG pO2 Sodium Potassium Chloride Carbon Dioxide BUN Creatinine Glucose POC Glucose 174 H 132 H Lactic Acid Uric Acid Calcium Total Bilirubin AST ALT Total Creatine Kinase CK-MB (CK-2) CK-MB (CK-2) Rel Index Troponin T C-Reactive Protein NT-Pro-B Natriuret Pep Total Protein Albumin LDL Cholesterol Direct Urine WBC (Auto) 08/30/18 08/30/18 08/30/18 05:17 05:34 06:10 WBC RBC 2.68 L Hgb 8.2 L Hct 25.6 L MCV 96 H RDW 17.2 H Plt Count 118 L Lymph % (Auto) [place] % (Auto) Baso % (Auto) Lymph # Seg Neuts % (Manual) Lymphocytes % (Manual) Monocytes % (Manual) Basophils % (Manual) Nucleated RBC % Seg Neutrophils # Man Lymphocytes # (Manual) Monocytes # (Manual) PT INR D-Dimer POC ABG pH POC ABG pCO2 POC ABG pO2 Sodium Potassium Chloride Carbon Dioxide BUN 54 H Creatinine 2.4 H Glucose 120 H POC Glucose 141 H Lactic Acid Uric Acid Calcium Total Bilirubin AST ALT Total Creatine Kinase CK-MB (CK-2) CK-MB (CK-2) Rel Index Troponin T C-Reactive Protein NT-Pro-B Natriuret Pep Total Protein Albumin LDL Cholesterol Direct Urine WBC (Auto) 08/30/18 08/30/18 08/30/18 13:11 18:11 23:55 WBC RBC Hgb Hct MCV RDW Plt Count Lymph % (Auto) [place] % (Auto) Baso % (Auto) Lymph # Seg Neuts % (Manual) Lymphocytes % (Manual) Monocytes % (Manual) Basophils % (Manual) Nucleated RBC % Seg Neutrophils # Man Lymphocytes # (Manual) Monocytes # (Manual) PT INR D-Dimer POC ABG pH POC ABG pCO2 POC ABG pO2 Sodium Potassium Chloride Carbon Dioxide BUN Creatinine Glucose POC Glucose 167 H 144 H 144 H Lactic Acid Uric Acid Calcium Total Bilirubin AST ALT Total Creatine Kinase CK-MB (CK-2) CK-MB (CK-2) Rel Index Troponin T C-Reactive Protein NT-Pro-B Natriuret Pep Total Protein Albumin LDL Cholesterol Direct Urine WBC (Auto) 08/31/18 08/31/18 08/31/18 05:07 05:07 05:44 WBC RBC 2.62 L Hgb 8.1 L Hct 25.0 L MCV 96 H RDW 17.5 H Plt Count 128 L Lymph % (Auto) [place] % (Auto) Baso % (Auto) Lymph # Seg Neuts % (Manual) Lymphocytes % (Manual) Monocytes % (Manual) Basophils % (Manual) Nucleated RBC % Seg Neutrophils # Man Lymphocytes # (Manual) Monocytes # (Manual) PT INR D-Dimer POC ABG pH POC ABG pCO2 POC ABG pO2 Sodium Potassium Chloride Carbon Dioxide BUN 58 H Creatinine 2.3 H Glucose 103 H POC Glucose 109 H Lactic Acid Uric Acid Calcium Total Bilirubin AST ALT Total Creatine Kinase CK-MB (CK-2) CK-MB (CK-2) Rel Index Troponin T C-Reactive Protein NT-Pro-B Natriuret Pep Total Protein Albumin LDL Cholesterol Direct Urine WBC (Auto) 08/31/18 08/31/18 08/31/18 11:26 13:54 19:05 WBC RBC Hgb Hct MCV RDW Plt Count Lymph % (Auto) [place] % (Auto) Baso % (Auto) Lymph # Seg Neuts % (Manual) Lymphocytes % (Manual) Monocytes % (Manual) Basophils % (Manual) Nucleated RBC % Seg Neutrophils # Man Lymphocytes # (Manual) Monocytes # (Manual) PT INR D-Dimer POC ABG pH POC ABG pCO2 POC ABG pO2 Sodium Potassium Chloride Carbon Dioxide BUN Creatinine Glucose POC Glucose 117 H 186 H Lactic Acid Uric Acid 9.6 H Calcium Total Bilirubin AST ALT Total Creatine Kinase CK-MB (CK-2) CK-MB (CK-2) Rel Index Troponin T C-Reactive Protein NT-Pro-B Natriuret Pep Total Protein Albumin LDL Cholesterol Direct Urine WBC (Auto) 08/31/18 09/01/18 09/01/18 23:50 06:27 09:21 WBC RBC 2.74 L Hgb 8.6 L Hct 25.8 L MCV RDW 17.3 H Plt Count Lymph % (Auto) [place] % (Auto) Baso % (Auto) Lymph # Seg Neuts % (Manual) Lymphocytes % (Manual) Monocytes % (Manual) Basophils % (Manual) Nucleated RBC % Seg Neutrophils # Man Lymphocytes # (Manual) Monocytes # (Manual) PT INR D-Dimer POC ABG pH POC ABG pCO2 POC ABG pO2 Sodium Potassium Chloride Carbon Dioxide BUN Creatinine Glucose POC Glucose 141 H 62 L Lactic Acid Uric Acid Calcium Total Bilirubin AST ALT Total Creatine Kinase CK-MB (CK-2) CK-MB (CK-2) Rel Index Troponin T C-Reactive Protein NT-Pro-B Natriuret Pep Total Protein Albumin LDL Cholesterol Direct Urine WBC (Auto) 09/01/18 09/01/18 09/01/18 09:21 12:27 17:51 WBC RBC Hgb Hct MCV RDW Plt Count Lymph % (Auto) [place] % (Auto) Baso % (Auto) Lymph # Seg Neuts % (Manual) Lymphocytes % (Manual) Monocytes % (Manual) Basophils % (Manual) Nucleated RBC % Seg Neutrophils # Man Lymphocytes # (Manual) Monocytes # (Manual) PT INR D-Dimer POC ABG pH POC ABG pCO2 POC ABG pO2 Sodium Potassium 3.0 L D Chloride 109.8 H Carbon Dioxide BUN 45 H Creatinine 1.7 H Glucose POC Glucose 106 H 108 H Lactic Acid Uric Acid Calcium 7.1 L D Total Bilirubin AST ALT Total Creatine Kinase CK-MB (CK-2) CK-MB (CK-2) Rel Index Troponin T C-Reactive Protein NT-Pro-B Natriuret Pep Total Protein Albumin LDL Cholesterol Direct Urine WBC (Auto) 09/02/18 09/02/18 09/02/18 05:16 05:16 12:01 WBC RBC 2.60 L Hgb 8.1 L Hct 24.8 L MCV 95 H RDW 17.1 H Plt Count Lymph % (Auto) [place] % (Auto) Baso % (Auto) Lymph # Seg Neuts % (Manual) Lymphocytes % (Manual) Monocytes % (Manual) Basophils % (Manual) Nucleated RBC % Seg Neutrophils # Man Lymphocytes # (Manual) Monocytes # (Manual) PT INR D-Dimer POC ABG pH POC ABG pCO2 POC ABG pO2 Sodium Potassium Chloride Carbon Dioxide BUN 49 H Creatinine 1.8 H Glucose 107 H POC Glucose 124 H Lactic Acid Uric Acid Calcium 8.1 L Total Bilirubin AST ALT Total Creatine Kinase CK-MB (CK-2) CK-MB (CK-2) Rel Index Troponin T C-Reactive Protein NT-Pro-B Natriuret Pep Total Protein Albumin LDL Cholesterol Direct Urine WBC (Auto) 09/02/18 09/02/18 09/03/18 18:38 23:12 08:22 WBC RBC Hgb Hct MCV RDW Plt Count Lymph % (Auto) [place] % (Auto) Baso % (Auto) Lymph # Seg Neuts % (Manual) Lymphocytes % (Manual) Monocytes % (Manual) Basophils % (Manual) Nucleated RBC % Seg Neutrophils # Man Lymphocytes # (Manual) Monocytes # (Manual) PT INR D-Dimer POC ABG pH POC ABG pCO2 POC ABG pO2 Sodium Potassium Chloride Carbon Dioxide BUN Creatinine Glucose POC Glucose 164 H 128 H 115 H Lactic Acid Uric Acid Calcium Total Bilirubin AST ALT Total Creatine Kinase CK-MB (CK-2) CK-MB (CK-2) Rel Index Troponin T C-Reactive Protein NT-Pro-B Natriuret Pep Total Protein Albumin LDL Cholesterol Direct Urine WBC (Auto) 09/03/18 09/03/18 09/03/18 11:48 16:37 20:48 WBC RBC Hgb Hct MCV RDW Plt Count Lymph % (Auto) [place] % (Auto) Baso % (Auto) Lymph # Seg Neuts % (Manual) Lymphocytes % (Manual) Monocytes % (Manual) Basophils % (Manual) Nucleated RBC % Seg Neutrophils # Man Lymphocytes # (Manual) Monocytes # (Manual) PT INR D-Dimer POC ABG pH POC ABG pCO2 POC ABG pO2 Sodium Potassium Chloride Carbon Dioxide BUN Creatinine Glucose POC Glucose 203 H 146 H 150 H Lactic Acid Uric Acid Calcium Total Bilirubin AST ALT Total Creatine Kinase CK-MB (CK-2) CK-MB (CK-2) Rel Index Troponin T C-Reactive Protein NT-Pro-B Natriuret Pep Total Protein Albumin LDL Cholesterol Direct Urine WBC (Auto) 09/04/18 09/04/18 09/04/18 08:29 12:08 13:32 WBC RBC Hgb Hct MCV RDW Plt Count Lymph % (Auto) [place] % (Auto) Baso % (Auto) Lymph # Seg Neuts % (Manual) Lymphocytes % (Manual) Monocytes % (Manual) Basophils % (Manual) Nucleated RBC % Seg Neutrophils # Man Lymphocytes # (Manual) Monocytes # (Manual) PT INR D-Dimer POC ABG pH POC ABG pCO2 POC ABG pO2 Sodium 136 L Potassium Chloride Carbon Dioxide BUN 42 H Creatinine 1.6 H Glucose 180 H POC Glucose 129 H 149 H Lactic Acid Uric Acid Calcium Total Bilirubin AST ALT Total Creatine Kinase CK-MB (CK-2) CK-MB (CK-2) Rel Index Troponin T C-Reactive Protein NT-Pro-B Natriuret Pep Total Protein Albumin LDL Cholesterol Direct Urine WBC (Auto) 09/04/18 09/05/18 09/05/18 16:33 07:03 07:03 WBC RBC 2.92 L Hgb 9.1 L Hct 27.4 L MCV RDW 17.3 H Plt Count Lymph % (Auto) [place] % (Auto) Baso % (Auto) Lymph # Seg Neuts % (Manual) 81.0 H Lymphocytes % (Manual) 7.0 L Monocytes % (Manual) 8.0 H Basophils % (Manual) Nucleated RBC % Seg Neutrophils # Man Lymphocytes # (Manual) 0.5 L Monocytes # (Manual) PT INR D-Dimer POC ABG pH POC ABG pCO2 POC ABG pO2 Sodium Potassium Chloride Carbon Dioxide BUN 40 H Creatinine Glucose 153 H POC Glucose 165 H Lactic Acid Uric Acid Calcium Total Bilirubin AST ALT Total Creatine Kinase CK-MB (CK-2) CK-MB (CK-2) Rel Index Troponin T C-Reactive Protein NT-Pro-B Natriuret Pep Total Protein Albumin LDL Cholesterol Direct Urine WBC (Auto) 09/05/18 09/05/18 09/05/18 08:00 11:51 21:20 WBC RBC Hgb Hct MCV RDW Plt Count Lymph % (Auto) [place] % (Auto) Baso % (Auto) Lymph # Seg Neuts % (Manual) Lymphocytes % (Manual) Monocytes % (Manual) Basophils % (Manual) Nucleated RBC % Seg Neutrophils # Man Lymphocytes # (Manual) Monocytes # (Manual) PT INR D-Dimer POC ABG pH POC ABG pCO2 POC ABG pO2 Sodium Potassium Chloride Carbon Dioxide BUN Creatinine Glucose POC Glucose 146 H 207 H 114 H Lactic Acid Uric Acid Calcium Total Bilirubin AST ALT Total Creatine Kinase CK-MB (CK-2) CK-MB (CK-2) Rel Index Troponin T C-Reactive Protein NT-Pro-B Natriuret Pep Total Protein Albumin LDL Cholesterol Direct Urine WBC (Auto) 09/06/18 09/06/18 09/06/18 06:42 06:42 11:38 WBC RBC 2.90 L Hgb 9.0 L Hct 27.0 L MCV RDW 17.4 H Plt Count 130 L Lymph % (Auto) [place] % (Auto) Baso % (Auto) Lymph # Seg Neuts % (Manual) 79.0 H Lymphocytes % (Manual) 6.0 L Monocytes % (Manual) 12.0 H Basophils % (Manual) 2.0 H Nucleated RBC % Seg Neutrophils # Man Lymphocytes # (Manual) 0.3 L Monocytes # (Manual) PT INR D-Dimer POC ABG pH POC ABG pCO2 POC ABG pO2 Sodium 136 L Potassium Chloride Carbon Dioxide BUN 39 H Creatinine Glucose 106 H POC Glucose 265 H Lactic Acid Uric Acid Calcium Total Bilirubin AST ALT Total Creatine Kinase CK-MB (CK-2) CK-MB (CK-2) Rel Index Troponin T C-Reactive Protein NT-Pro-B Natriuret Pep Total Protein Albumin LDL Cholesterol Direct Urine WBC (Auto) 09/06/18 09/06/18 09/07/18 16:37 20:55 05:12 WBC RBC 2.80 L Hgb 8.7 L Hct 26.5 L MCV 95 H RDW 17.7 H Plt Count Lymph % (Auto) 13.3 L [place] % (Auto) 14.2 H Baso % (Auto) 1.9 H Lymph # 0.7 L Seg Neuts % (Manual) Lymphocytes % (Manual) Monocytes % (Manual) Basophils % (Manual) Nucleated RBC % Seg Neutrophils # Man Lymphocytes # (Manual) Monocytes # (Manual) PT INR D-Dimer POC ABG pH POC ABG pCO2 POC ABG pO2 Sodium Potassium Chloride Carbon Dioxide BUN Creatinine Glucose POC Glucose 131 H 135 H Lactic Acid Uric Acid Calcium Total Bilirubin AST ALT Total Creatine Kinase CK-MB (CK-2) CK-MB (CK-2) Rel Index Troponin T C-Reactive Protein NT-Pro-B Natriuret Pep Total Protein Albumin LDL Cholesterol Direct Urine WBC (Auto) 09/07/18 09/07/18 09/07/18 05:12 11:28 15:32 WBC RBC Hgb Hct MCV RDW Plt Count Lymph % (Auto) [place] % (Auto) Baso % (Auto) Lymph # Seg Neuts % (Manual) Lymphocytes % (Manual) Monocytes % (Manual) Basophils % (Manual) Nucleated RBC % Seg Neutrophils # Man Lymphocytes # (Manual) Monocytes # (Manual) PT INR D-Dimer POC ABG pH POC ABG pCO2 POC ABG pO2 Sodium Potassium Chloride Carbon Dioxide BUN 36 H Creatinine Glucose POC Glucose 176 H 131 H Lactic Acid Uric Acid Calcium Total Bilirubin AST ALT Total Creatine Kinase CK-MB (CK-2) CK-MB (CK-2) Rel Index Troponin T C-Reactive Protein NT-Pro-B Natriuret Pep Total Protein Albumin LDL Cholesterol Direct Urine WBC (Auto) 09/07/18 09/08/18 09/08/18 21:50 05:23 05:23 WBC RBC 2.72 L Hgb 8.5 L Hct 26.9 L MCV 99 H RDW 18.0 H Plt Count 136 L Lymph % (Auto) 13.1 L [place] % (Auto) 15.7 H Baso % (Auto) 1.9 H Lymph # 0.7 L Seg Neuts % (Manual) Lymphocytes % (Manual) Monocytes % (Manual) Basophils % (Manual) Nucleated RBC % Seg Neutrophils # Man Lymphocytes # (Manual) Monocytes # (Manual) PT INR D-Dimer POC ABG pH POC ABG pCO2 POC ABG pO2 Sodium 134 L Potassium 5.2 H Chloride Carbon Dioxide BUN 36 H Creatinine Glucose POC Glucose 160 H Lactic Acid Uric Acid Calcium Total Bilirubin AST ALT Total Creatine Kinase CK-MB (CK-2) CK-MB (CK-2) Rel Index Troponin T C-Reactive Protein NT-Pro-B Natriuret Pep Total Protein Albumin LDL Cholesterol Direct Urine WBC (Auto) 09/08/18 09/08/18 09/09/18 12:33 16:57 05:52 WBC RBC 2.64 L Hgb 8.1 L Hct 25.2 L MCV 95 H RDW 17.8 H Plt Count Lymph % (Auto) [place] % (Auto) 14.3 H Baso % (Auto) 1.9 H Lymph # 0.6 L Seg Neuts % (Manual) Lymphocytes % (Manual) Monocytes % (Manual) Basophils % (Manual) Nucleated RBC % Seg Neutrophils # Man Lymphocytes # (Manual) Monocytes # (Manual) PT INR D-Dimer POC ABG pH POC ABG pCO2 POC ABG pO2 Sodium Potassium Chloride Carbon Dioxide BUN Creatinine Glucose POC Glucose 198 H 195 H Lactic Acid Uric Acid Calcium Total Bilirubin AST ALT Total Creatine Kinase CK-MB (CK-2) CK-MB (CK-2) Rel Index Troponin T C-Reactive Protein NT-Pro-B Natriuret Pep Total Protein Albumin LDL Cholesterol Direct Urine WBC (Auto) 09/09/18 09/09/18 09/09/18 05:52 11:50 16:28 WBC RBC Hgb Hct MCV RDW Plt Count Lymph % (Auto) [place] % (Auto) Baso % (Auto) Lymph # Seg Neuts % (Manual) Lymphocytes % (Manual) Monocytes % (Manual) Basophils % (Manual) Nucleated RBC % Seg Neutrophils # Man Lymphocytes # (Manual) Monocytes # (Manual) PT INR D-Dimer POC ABG pH POC ABG pCO2 POC ABG pO2 Sodium 136 L Potassium Chloride Carbon Dioxide BUN 34 H Creatinine Glucose POC Glucose 122 H 170 H Lactic Acid Uric Acid Calcium 8.1 L Total Bilirubin AST ALT Total Creatine Kinase CK-MB (CK-2) CK-MB (CK-2) Rel Index Troponin T C-Reactive Protein NT-Pro-B Natriuret Pep Total Protein Albumin LDL Cholesterol Direct Urine WBC (Auto) Allied health notes reviewed: nursing
[2018-09-09] MEDS: AMBIEN PO PRN (22:24)
[2018-09-10] MEDS: REGLAN IV PRN (03:02)
[2018-09-10 06:12] LABS: Basophils # (Auto) 0.1 K/mm3 (0.0-0.1); Eosinophils # (Auto) 0.1 K/mm3 (0.0-0.4); Hemoglobin 8.2 gm/dl (11.8-15.2); Lymphocytes # (Auto) 0.6 K/mm3 (1.2-5.4); Lymphocytes % (Auto) 15.6 % (13.4-35.0); Mean Corpuscular HGB Conc 33 % (32-34); Mean Corpuscular Hemoglobin 31 pg (28-32); Mean Corpuscular Volume 95 fl (84-94); Monocytes # (Auto) 0.6 K/mm3 (0.0-0.8); Monocytes % (Auto) 15.9 % (0.0-7.3); Platelet Count 147 K/mm3 (140-440); Red Blood Count 2.63 M/mm3 (3.65-5.03); Red Cell Distribution Width 17.4 % (13.2-15.2)
[2018-09-10 06:40] LABS: Calcium 8.3 mg/dL (8.4-10.2)
[2018-09-10] MEDS: BROVANA NEBU IH SCH ×2 (07:28→19:45)
[2018-09-10] MEDS: DUONEB *Not for PRN Use IH SCH ×2 (07:28→19:45)
[2018-09-10] MEDS: PULMICORT IH SCH ×2 (07:28→19:45)
[2018-09-10] MEDS: APRESOLINE PO SCH ×2 (09:32→22:16)
[2018-09-10] MEDS: HumaLOG SUB-Q SCH ×4 (09:33→22:21)
[2018-09-10] MEDS: KEPPRA PO SCH ×2 (09:33→22:17)
[2018-09-10] MEDS: HEPARIN SUB-Q SCH ×2 (09:33→22:17)
[2018-09-10] MEDS: SODIUM CHLORIDE FLUSH SYRINGE 10 ML IV SCH ×2 (09:34→22:17)
--- NOTE | 2018-09-10 12:44 | Progress Note ---
Assessment and Plan Assessment and plan: Acute on chronic respiratory failure. Etiology secondary to COPD exacerbation. Continue O2 and nebulizers. Improving. Acute kidney injury on CKD stage III. Off hemodialysis now. Creatinine remaine d stable despite off hemodialysis. Acute COPD exacerbation. We'll continue nebulizers, antibiotics and O2 continuously. Also prednisone at discharged. Patient doing well. Awaiting senior care placement Pneumonia may be gram-negative nini continue current antibiotics per ID. Sepsis. Improved. Leukocytosis resolved. Pulseless electrical activity status post cardiorespiratory arrest. Patient stabilized. Started on beta renetta and aspirin. Supportive care. Seizure disorder. EEG Normal Morbid obesity. supportive care Disposition. Awaiting retirement placement. History Interval history: No new issues overnight. Hospitalist Physical - Constitutional Vitals: Temp Pulse Resp BP Pulse Ox 98.1 F 89 22 145/55 94 09/10/18 11:48 09/10/18 11:48 09/10/18 11:48 09/10/18 11:48 09/10/18 11:48 General appearance: Present: no acute distress, other (intubated, chronically ill appearing) - EENT Eyes: Present: PERRL, EOM intact ENT: hearing intact, clear oral mucosa, dentition normal - Neck Neck: Present: supple, normal ROM - Respiratory Respiratory effort: normal Respiratory: bilateral: CTA - Cardiovascular Rhythm: regular Heart Sounds: Present: S1 & S2. Absent: gallop, rub - Extremities Extremities: no ischemia, No edema, Full ROM - Abdominal General gastrointestinal: soft, non-tender, non-distended, normal bowel sounds - Integumentary Integumentary: Present: clear, warm, dry - Neurologic Neurologic: CNII-XII intact, moves all extremities Results - Labs CBC & Chem 7: 09/10/18 05:09 09/10/18 05:09 Labs: Laboratory Last Values WBC 3.9 K/mm3 (4.5-11.0) L 09/10/18 05:09 RBC 2.63 M/mm3 (3.65-5.03) L 09/10/18 05:09 Hgb 8.2 gm/dl (11.8-15.2) L 09/10/18 05:09 Hct 25.0 % (35.5-45.6) L 09/10/18 05:09 MCV 95 fl (84-94) H 09/10/18 05:09 MCH 31 pg (28-32) 09/10/18 05:09 MCHC 33 % (32-34) 09/10/18 05:09 RDW 17.4 % (13.2-15.2) H 09/10/18 05:09 Plt Count 147 K/mm3 (140-440) 09/10/18 05:09 Lymph % (Auto) 15.6 % (13.4-35.0) 09/10/18 05:09 [place] % (Auto) 15.9 % (0.0-7.3) H 09/10/18 05:09 Eos % (Auto) 3.0 % (0.0-4.3) 09/10/18 05:09 Baso % (Auto) 2.0 % (0.0-1.8) H 09/10/18 05:09 Lymph # 0.6 K/mm3 (1.2-5.4) L 09/10/18 05:09 [place] # 0.6 K/mm3 (0.0-0.8) 09/10/18 05:09 Eos # 0.1 K/mm3 (0.0-0.4) 09/10/18 05:09 Baso # 0.1 K/mm3 (0.0-0.1) 09/10/18 05:09 Add Manual Diff Complete 09/06/18 06:42 Total Counted 100 09/06/18 06:42 Seg Neutrophils % 63.5 % (40.0-70.0) 09/10/18 05:09 Seg Neuts % (Manual) 79.0 % (40.0-70.0) H 09/06/18 06:42 0 % 09/06/18 06:42 6.0 % (13.4-35.0) L 09/06/18 06:42 Reactive Lymphs % (Man) 0 % 09/06/18 06:42 12.0 % (0.0-7.3) H 09/06/18 06:42 1.0 % (0.0-4.3) 09/06/18 06:42 2.0 % (0.0-1.8) H 09/06/18 06:42 0 % 09/06/18 06:42 0 % 09/06/18 06:42 0 % 09/06/18 06:42 0 % 09/06/18 06:42 Nucleated RBC % Not Reportable 09/06/18 06:42 Seg Neutrophils # 2.5 K/mm3 (1.8-7.7) 09/10/18 05:09 Seg Neutrophils # Man 3.9 K/mm3 (1.8-7.7) 09/06/18 06:42 Band Neutrophils # 0.0 K/mm3 09/06/18 06:42 0.3 K/mm3 (1.2-5.4) L 09/06/18 06:42 Abs React Lymphs (Man) 0.0 K/mm3 09/06/18 06:42 0.6 K/mm3 (0.0-0.8) 09/06/18 06:42 0.0 K/mm3 (0.0-0.4) 09/06/18 06:42 0.1 K/mm3 (0.0-0.1) 09/06/18 06:42 0.0 K/mm3 09/06/18 06:42 0.0 K/mm3 09/06/18 06:42 0.0 K/mm3 09/06/18 06:42 Blast Cells # 0.0 K/mm3 09/06/18 06:42 WBC Morphology Not Reportable 09/06/18 06:42 Hypersegmented Neuts Not Reportable 09/06/18 06:42 Hyposegmented Neuts Not Reportable 09/06/18 06:42 Hypogranular Neuts Not Reportable 09/06/18 06:42 Not Reportable 09/06/18 06:42 Not Reportable 09/06/18 06:42 Not Reportable 09/06/18 06:42 Not Reportable 09/06/18 06:42 Not Reportable 09/06/18 06:42 Not Reportable 09/06/18 06:42 Consistent w auto 09/06/18 06:42 Not Reportable 09/06/18 06:42 Plt Clumps, EDTA Not Reportable 09/06/18 06:42 Not Reportable 09/06/18 06:42 Not Reportable 09/06/18 06:42 Not Reportable 09/06/18 06:42 Plt Morphology Comment Not Reportable 09/06/18 06:42 RBC Morphology Not Reportable 09/06/18 06:42 Dimorphic RBCs Not Reportable 09/06/18 06:42 Not Reportable 09/06/18 06:42 Not Reportable 09/06/18 06:42 Not Reportable 09/06/18 06:42 1+ 09/06/18 06:42 Not Reportable 09/06/18 06:42 1+ 09/06/18 06:42 Not Reportable 09/06/18 06:42 Not Reportable 09/06/18 06:42 Not Reportable 09/06/18 06:42 Not Reportable 09/06/18 06:42 Not Reportable 09/06/18 06:42 Not Reportable 09/06/18 06:42 Not Reportable 09/06/18 06:42 Not Reportable 09/06/18 06:42 Not Reportable 09/06/18 06:42 Not Reportable 09/06/18 06:42 Not Reportable 09/06/18 06:42 Not Reportable 09/06/18 06:42 Not Reportable 09/06/18 06:42 Acanthocytes (Spur) Not Reportable 09/06/18 06:42 Rouleaux Not Reportable 09/06/18 06:42 Not Reportable 09/06/18 06:42 Not Reportable 09/06/18 06:42 Not Reportable 09/06/18 06:42 Not Reportable 09/06/18 06:42 Hem Pathologist Commnt No 09/06/18 06:42 PT 15.6 Sec. (12.2-14.9) H 08/25/18 16:43 INR 1.27 (0.87-1.13) H 08/25/18 16:43 APTT 30.8 Sec. (24.2-36.6) 08/21/18 04:42 1978.25 ng/mlDDU (0-234) H 08/24/18 13:41 POC ABG pH 7.410 (7.35-7.45) 08/30/18 13:35 POC ABG pCO2 41.4 (35-45) 08/30/18 13:35 POC ABG pO2 99 (80-105) 08/30/18 13:35 POC ABG HCO3 26.2 (22-26 mml/L) 08/30/18 13:35 POC ABG Total CO2 27 (23-27mmol/L) 08/30/18 13:35 POC ABG O2 Sat 98 08/30/18 13:35 POC ABG Base Excess 2 ((-2) - (+3)mmol/L) 08/30/18 13:35 30 % 08/30/18 13:35 Sodium 137 mmol/L (137-145) 09/10/18 05:09 Potassium 5.1 mmol/L (3.6-5.0) H 09/10/18 05:09 Chloride 103.7 mmol/L (98-107) 09/10/18 05:09 Carbon Dioxide 24 mmol/L (22-30) 09/10/18 05:09 14 mmol/L 09/10/18 05:09 BUN 31 mg/dL (9-20) H 09/10/18 05:09 1.4 mg/dL (0.8-1.5) 09/10/18 05:09 Estimated GFR 50 ml/min 09/10/18 05:09 22 % 09/10/18 05:09 Glucose 106 mg/dL (75-100) H 09/10/18 05:09 POC Glucose 144 (70-105) H 09/09/18 22:02 317 Mosm/kg 08/31/18 13:54 Lactic Acid 1.30 mmol/L (0.7-2.0) 08/21/18 20:50 9.6 mg/dL (3.5-7.6) H 08/31/18 13:54 Calcium 8.3 mg/dL (8.4-10.2) L 09/10/18 05:09 Magnesium 2.00 mg/dL (1.7-2.3) 09/02/18 05:16 0.60 mg/dL (0.1-1.2) 08/28/18 04:49 AST 27 units/L (5-40) 08/28/18 04:49 ALT 12 units/L (7-56) 08/28/18 04:49 87 units/L (35-129) 08/28/18 04:49 222 units/L (55-170) H 08/21/18 10:45 CK-MB (CK-2) 9.2 ng/mL (0.0-4.0) H 08/21/18 10:45 CK-MB (CK-2) Rel Index 4.1 (0-4) H 08/21/18 10:45 0.020 ng/mL (0.00-0.029) 09/08/18 09:06 9.00 mg/dL (0.00-1.30) H 08/24/18 13:41 NT-Pro-B Natriuret Pep > 80977 pg/mL (0-900) H 08/28/18 04:49 5.4 g/dL (6.3-8.2) L 08/28/18 04:49 2.2 g/dL (3.9-5) L 08/28/18 04:49 0.7 % 08/28/18 04:49 Triglycerides 87 mg/dL (2-149) 08/21/18 04:42 Cholesterol 93 mg/dL (50-199) 08/21/18 04:42 44 mg/dL (50-130) L 08/21/18 04:42 41 mg/dL (40-59) 08/21/18 04:42 2.26 % 08/21/18 04:42 Yellow (Yellow) 08/21/18 15:03 Slightly-cloudy (Clear) 08/21/18 15:03 5.0 (5.0-7.0) 08/21/18 15:03 Ur Specific [place] 1.015 (1.003-1.030) 08/21/18 15:03 30 mg/dl mg/dL (Negative) 08/21/18 15:03 Neg mg/dL (Negative) 08/21/18 15:03 Neg mg/dL (Negative) 08/21/18 15:03 Mod (Negative) 08/21/18 15:03 Neg (Negative) 08/21/18 15:03 Neg (Negative) 08/21/18 15:03 < 2.0 mg/dL (<2.0) 08/21/18 15:03 Ur Leukocyte Esterase Tr (Negative) 08/21/18 15:03 13.0 /HPF (0.0-6.0) H 08/21/18 15:03 15.0 /HPF (0.0-6.0) 08/21/18 15:03 U Epithel Cells (Auto) 1.0 /HPF (0-13.0) 08/21/18 15:03 1+ /HPF (Negative) 08/21/18 15:03 Few /HPF 08/21/18 15:03 Random Vancomycin 10.5 ug/mL (0-40.0) 08/26/18 05:53 Levetiracetam 25.7 mcg/mL (12.0-46.0) 08/26/18 13:42 Hepatitis A IgM Ab Non-reactive (NonReactive) 08/27/18 23:25 Hep Bs Antigen Non-reactive (Negative) 08/27/18 23:25 Hep B Core IgM Ab Non-reactive (NonReactive) 08/27/18 23:25 Non-reactive (NonReactive) 08/27/18 23:25 Active Medications - Current Medications Current Medications: Generic Name Dose Route Start Last Admin Trade Name Freq PRN Reason Stop Dose Admin Acetaminophen 650 mg 08/21/18 06:31 09/01/18 21:12 Tylenol PO 650 mg Q4H PRN Administration Pain MILD(1-3)/Fever >100.5/COOK Albuterol/Ipratropium 1 ampul 08/24/18 20:00 09/10/18 07:28 Duoneb *Not For Prn Use* IH 1 ampul BIDRT LUIS Administration Lipase/Protease/Amylase 1 each 08/26/18 12:07 Pancreamaris [place] 10,500 Unit FEEDTUBE PRN PRN For Clogged Feeding Tube Arformoterol Tartrate 15 mcg 08/24/18 20:00 09/10/18 07:28 Brovana Nebu IH 15 mcg Q12HRT LUIS Administration Bisacodyl 10 mg 09/02/18 12:42 Dulcolax [place] QDAY PRN Constipation Budesonide 0.5 mg 08/24/18 20:00 09/10/18 07:28 Pulmicort IH 0.5 mg Q12HRT LUIS Administration Dextrose 50 ml 08/21/18 06:48 D50w (25gm) Syringe IV PRN PRN Hypoglycemia Heparin Sodium (Porcine) 5,000 unit 08/22/18 10:00 09/10/18 09:33 Heparin SUB-Q 5,000 unit Q12HR LUIS Administration Hydralazine HCl 50 mg 09/08/18 10:00 09/10/18 09:32 Apresoline PO 50 mg BID LUIS Administration Insulin Human Lispro 0 unit 08/31/18 22:00 09/10/18 09:33 Humalog SUB-Q 6 unit ACHS LUIS Administration Protocol Levetiracetam 750 mg 09/04/18 22:00 09/10/18 09:33 Keppra PO 750 mg BID LUIS Administration Metoclopramide HCl 10 mg 09/05/18 18:35 09/10/18 03:02 Reglan IV 10 mg Q6H PRN Administration Nausea And Vomiting Morphine Sulfate 2 mg 08/26/18 14:24 08/30/18 01:40 Morphine IV 2 mg Q6H PRN Administration Pain, Moderate (4-6) Ondansetron HCl 4 mg 08/21/18 06:31 Zofran IV Q8H PRN Nausea And Vomiting Sodium Chloride 10 ml 08/21/18 10:00 09/10/18 09:34 Sodium Chloride Flush Syringe 10 Ml IV 10 ml BID LUIS Administration Zolpidem Tartrate 5 mg 09/09/18 00:19 09/09/18 22:24 Ambien PO 5 mg QHS PRN Administration Sleep Nutrition/Malnutrition Assess - Dietary Evaluation Nutrition/Malnutrition Findings: Nutrition Notes Start: 08/21/18 16:58 Freq: Status: Active Protocol: Document 09/05/18 14:18 TUAN (Rec: 09/05/18 14:30 TUAN [email or web address]) Nutrition Notes Initial or Follow up Reassessment Current Diagnosis Heart Failure Other Pertinent Diagnosis COPD exacerbation, pneu, s/p cardiac arrest Current Diet Cardiac/Consistent CHO with chopped meats + Glucerna daily Labs/Tests Reviewed Pertinent Medications Reviewed Height 5 ft 6 in Weight 146.3 kg [place] Body Weight (kg) 64.54 BMI 52.0 Subjective/Other Information PT has consumed 75% of meals since last assessment. He drinks ONS daily as well. Percent of energy/protein needs met: 97% energy 70% pro (includes ONS) Burn Absent Trauma Absent #1 Nutrition Diagnosis Inadequate oral intake As Evidenced by Signs and Symptoms PO intake meeting >50% energy and pro needs Diagnosis Progress(for reassessment Improved documentation) Is patient on ventilator? No Is Patient Ambulatory and/or Out of Bed No REE-([facility]-confined to bed) 2592.060 Kcal/Kg value to use for calculation 12 Approximate Energy Requirements Using 1756 kcal/Kg Additional Notes Pro needs 1-1.2g/kg adjBW: 105-127g/day Fluid needs 1ml/kcal Nutrition Intervention Change Diet Order: Continue current Add Supplement/Snack (indicate name/kcal Glucerna Chocolate, [place] /protein ) 1 daily Provides kCal: 220 Provides Protein (gm) 10 Goal #1 Meet at least 75% of kcal and protein needs via PO intakes Follow-Up By: 09/12/18 Additional Comments F/U: stable intakes, wt
--- NOTE | 2018-09-10 15:38 | Progress Note ---
Assessment and Plan Patient is sleeping on 2 litres O2. CPAP standby at the room. O2 saturation is 94%. No acute respiratory distress. Patient is afebrile. No leukocytosis. - Patient Problems (1) COPD (chronic obstructive pulmonary disease) Current Visit: Yes Status: Acute Plan to address problem: CPAP with 2 litres O2. 2 litres O2 when he is not on BIPAP. Albuterol and atrovent aeorosol treatment q6 hours PRN for shortness of breath. Brovanna/ budesonide aeorsol treatment q 12 hours continue subq heparin. Patient is on reglan. (2) Acute on chronic respiratory failure Current Visit: Yes Status: Acute Plan to address problem: CPAP with 2 litres O2. 2 litres O2 when she is on BIPAP. Albuterol and atrovent aeorosol treatment q6 hours PRN for shortness of breath. Brovanna/ budesonide aeorsol treatment q 12 hours continue subq heparin. Patient is on reglan. (3) Acute HFrEF (heart failure with reduced ejection fraction) Current Visit: Yes Status: Resolved Plan to address problem: Management as per cardiology. (4) Acute renal failure Current Visit: Yes Status: Acute Plan to address problem: Management as per Nephrology. (5) Altered mental status Current Visit: Yes Status: Acute Plan to address problem: Management as per primary care and neurology. (6) Bacteremia due to coagulase-negative Staphylococcus Current Visit: Yes Status: Acute Plan to address problem: management as per infectious diseases. (7) Anemia Current Visit: Yes Status: Acute Plan to address problem: Management as per primary care. Subjective Date of service: 09/10/18 Principal diagnosis: s/p cardiac arrest; severe sepsis; acute hypoxemic- hypercapnic resp failure Interval history: Patient is sleeping on 2 litres O2. CPAP standby at the room. O2 saturation is 94%. No acute respiratory distress. Patient is afebrile. No leukocytosis. Objective Vital Signs - 12hr 09/10/18 09/10/18 09/10/18 04:09 04:17 07:28 Temperature 98.0 F Pulse Rate 99 H Pulse Rate [ 98 H Anterior Bilateral Throughout] Pulse Rate [ Apical] Pulse Rate [ From Monitor] Respiratory 22 Rate Respiratory 18 Rate [Anterior Bilateral Throughout] Blood Pressure 142/61 O2 Sat by Pulse 97 96 Oximetry 09/10/18 09/10/18 09/10/18 08:53 09:32 11:48 Temperature 98.1 F 98.1 F Pulse Rate 142 H 100 H 89 Pulse Rate [ Anterior Bilateral Throughout] Pulse Rate [ Apical] Pulse Rate [ From Monitor] Respiratory 24 22 Rate Respiratory Rate [Anterior Bilateral Throughout] Blood Pressure 137/76 137/76 145/55 O2 Sat by Pulse 97 94 Oximetry 09/10/18 12:36 Temperature Pulse Rate Pulse Rate [ Anterior Bilateral Throughout] Pulse Rate [ 100 H Apical] Pulse Rate [ 100 H From Monitor] Respiratory 20 Rate Respiratory Rate [Anterior Bilateral Throughout] Blood Pressure O2 Sat by Pulse 97 Oximetry Constitutional: no acute distress, asleep Eyes: non-icteric ENT: oropharynx moist, other (extubated) Neck: supple, no JVD, other (short neck) Effort: mildly labored Ascultation: Bilateral: diminished breath sounds, rhonchi (improved overall) Percussion: Bilateral: not dull Cardiovascular: regular rate and rhythm, other (S1,S2, no murmurs, no gallops or rubs) Gastrointestinal: normoactive bowel sounds, soft, non-tender, non-distended, other (Madison catheter in place, minimal urine tea colored) Integumentary: normal Extremities: no cyanosis, no edema, pink and warm, pulses normal, no ischemia or petechiae Neurologic: normal mental status, non-focal exam (grossly), pupils equal and round, CN II-XII normal Psychiatric: mood appropriate, affect normal CBC and BMP: 09/10/18 05:09 09/10/18 05:09 ABG, PT/INR, D-dimer: ABG POC ABG pH 7.410 (7.35-7.45) 08/30/18 13:35 POC ABG pCO2 41.4 (35-45) 08/30/18 13:35 POC ABG pO2 99 (80-105) 08/30/18 13:35 POC ABG HCO3 26.2 (22-26 mml/L) 08/30/18 13:35 POC ABG Total CO2 27 (23-27mmol/L) 08/30/18 13:35 POC ABG O2 Sat 98 08/30/18 13:35 PT/INR, D-dimer PT 15.6 Sec. (12.2-14.9) H 08/25/18 16:43 INR 1.27 (0.87-1.13) H 08/25/18 16:43 1978.25 ng/mlDDU (0-234) H 08/24/18 13:41 Abnormal lab findings: Abnormal Labs 08/21/18 08/21/18 08/21/18 04:42 04:42 04:42 WBC 19.1 H RBC 2.49 L Hgb 7.7 L Hct 24.5 L MCV 98 H RDW 17.7 H Plt Count Lymph % (Auto) [place] % (Auto) Baso % (Auto) Lymph # Seg Neuts % (Manual) 84.0 H Lymphocytes % (Manual) 7.0 L Monocytes % (Manual) 9.0 H Basophils % (Manual) Nucleated RBC % Seg Neutrophils # Man 16.0 H Lymphocytes # (Manual) Monocytes # (Manual) 1.7 H PT 20.1 H INR 1.76 H D-Dimer POC ABG pH POC ABG pCO2 POC ABG pO2 Sodium Potassium Chloride Carbon Dioxide BUN Creatinine Glucose POC Glucose Lactic Acid Uric Acid Calcium Total Bilirubin AST ALT Total Creatine Kinase CK-MB (CK-2) CK-MB (CK-2) Rel Index Troponin T 0.032 H C-Reactive Protein NT-Pro-B Natriuret Pep Total Protein Albumin LDL Cholesterol Direct 44 L Urine WBC (Auto) 08/21/18 08/21/18 08/21/18 04:42 04:42 04:42 WBC RBC Hgb Hct MCV RDW Plt Count Lymph % (Auto) [place] % (Auto) Baso % (Auto) Lymph # Seg Neuts % (Manual) Lymphocytes % (Manual) Monocytes % (Manual) Basophils % (Manual) Nucleated RBC % Seg Neutrophils # Man Lymphocytes # (Manual) Monocytes # (Manual) PT INR D-Dimer POC ABG pH POC ABG pCO2 POC ABG pO2 Sodium Potassium 6.0 H Chloride Carbon Dioxide 15 L BUN 57 H Creatinine 4.3 H Glucose 111 H POC Glucose Lactic Acid 5.80 H* Uric Acid Calcium Total Bilirubin 1.80 H AST 212 H ALT 94 H Total Creatine Kinase CK-MB (CK-2) CK-MB (CK-2) Rel Index Troponin T C-Reactive Protein NT-Pro-B Natriuret Pep 84257 H Total Protein Albumin 3.2 L LDL Cholesterol Direct Urine WBC (Auto) 08/21/18 08/21/18 08/21/18 05:08 05:58 05:58 WBC RBC Hgb Hct MCV RDW Plt Count Lymph % (Auto) [place] % (Auto) Baso % (Auto) Lymph # Seg Neuts % (Manual) Lymphocytes % (Manual) Monocytes % (Manual) Basophils % (Manual) Nucleated RBC % Seg Neutrophils # Man Lymphocytes # (Manual) Monocytes # (Manual) PT INR D-Dimer POC ABG pH 7.164 L POC ABG pCO2 46.3 H POC ABG pO2 229 H Sodium Potassium Chloride Carbon Dioxide BUN Creatinine Glucose POC Glucose Lactic Acid 5.10 H* Uric Acid Calcium Total Bilirubin AST ALT Total Creatine Kinase CK-MB (CK-2) CK-MB (CK-2) Rel Index Troponin T 0.035 H C-Reactive Protein NT-Pro-B Natriuret Pep Total Protein Albumin LDL Cholesterol Direct Urine WBC (Auto) 08/21/18 08/21/18 08/21/18 06:45 06:45 06:53 WBC RBC Hgb Hct MCV RDW Plt Count Lymph % (Auto) [place] % (Auto) Baso % (Auto) Lymph # Seg Neuts % (Manual) Lymphocytes % (Manual) Monocytes % (Manual) Basophils % (Manual) Nucleated RBC % Seg Neutrophils # Man Lymphocytes # (Manual) Monocytes # (Manual) PT INR D-Dimer POC ABG pH 7.160 L POC ABG pCO2 46.8 H POC ABG pO2 Sodium Potassium Chloride Carbon Dioxide BUN Creatinine Glucose POC Glucose Lactic Acid 4.70 H* Uric Acid Calcium Total Bilirubin AST ALT Total Creatine Kinase 234 H CK-MB (CK-2) 9.1 H CK-MB (CK-2) Rel Index Troponin T 0.032 H C-Reactive Protein NT-Pro-B Natriuret Pep Total Protein Albumin LDL Cholesterol Direct Urine WBC (Auto) 08/21/18 08/21/18 08/21/18 10:43 10:43 10:45 WBC RBC Hgb Hct MCV RDW Plt Count Lymph % (Auto) [place] % (Auto) Baso % (Auto) Lymph # Seg Neuts % (Manual) Lymphocytes % (Manual) Monocytes % (Manual) Basophils % (Manual) Nucleated RBC % Seg Neutrophils # Man Lymphocytes # (Manual) Monocytes # (Manual) PT INR D-Dimer POC ABG pH POC ABG pCO2 POC ABG pO2 Sodium Potassium Chloride Carbon Dioxide 17 L BUN 59 H Creatinine 4.2 H Glucose POC Glucose Lactic Acid 3.70 H* Uric Acid Calcium Total Bilirubin AST ALT Total Creatine Kinase 222 H CK-MB (CK-2) 9.2 H CK-MB (CK-2) Rel Index 4.1 H Troponin T 0.044 H D C-Reactive Protein NT-Pro-B Natriuret Pep Total Protein Albumin LDL Cholesterol Direct Urine WBC (Auto) 08/21/18 08/21/18 08/21/18 11:38 12:33 15:03 WBC RBC Hgb Hct MCV RDW Plt Count Lymph % (Auto) [place] % (Auto) Baso % (Auto) Lymph # Seg Neuts % (Manual) Lymphocytes % (Manual) Monocytes % (Manual) Basophils % (Manual) Nucleated RBC % Seg Neutrophils # Man Lymphocytes # (Manual) Monocytes # (Manual) PT INR D-Dimer POC ABG pH 7.250 L POC ABG pCO2 POC ABG pO2 121 H Sodium Potassium Chloride Carbon Dioxide BUN Creatinine Glucose POC Glucose 129 H Lactic Acid Uric Acid Calcium Total Bilirubin AST ALT Total Creatine Kinase CK-MB (CK-2) CK-MB (CK-2) Rel Index Troponin T C-Reactive Protein NT-Pro-B Natriuret Pep Total Protein Albumin LDL Cholesterol Direct Urine WBC (Auto) 13.0 H 08/21/18 08/22/18 08/22/18 15:47 00:01 04:27 WBC RBC Hgb Hct MCV RDW Plt Count Lymph % (Auto) [place] % (Auto) Baso % (Auto) Lymph # Seg Neuts % (Manual) Lymphocytes % (Manual) Monocytes % (Manual) Basophils % (Manual) Nucleated RBC % Seg Neutrophils # Man Lymphocytes # (Manual) Monocytes # (Manual) PT INR D-Dimer POC ABG pH 7.457 H POC ABG pCO2 POC ABG pO2 117 H Sodium Potassium Chloride Carbon Dioxide BUN Creatinine Glucose POC Glucose 211 H Lactic Acid 2.70 H* Uric Acid Calcium Total Bilirubin AST ALT Total Creatine Kinase CK-MB (CK-2) CK-MB (CK-2) Rel Index Troponin T C-Reactive Protein NT-Pro-B Natriuret Pep Total Protein Albumin LDL Cholesterol Direct Urine WBC (Auto) 08/22/18 08/22/18 08/22/18 05:46 06:10 06:10 WBC RBC 2.27 L Hgb 7.0 L Hct 21.2 L MCV RDW 16.8 H Plt Count 129 L Lymph % (Auto) [place] % (Auto) Baso % (Auto) Lymph # Seg Neuts % (Manual) 95.0 H Lymphocytes % (Manual) 1.0 L Monocytes % (Manual) Basophils % (Manual) Nucleated RBC % 1.0 H Seg Neutrophils # Man 7.8 H Lymphocytes # (Manual) 0.1 L Monocytes # (Manual) PT INR D-Dimer POC ABG pH POC ABG pCO2 POC ABG pO2 Sodium Potassium Chloride Carbon Dioxide 20 L BUN 63 H Creatinine 3.9 H Glucose 205 H POC Glucose 223 H Lactic Acid Uric Acid Calcium Total Bilirubin AST ALT Total Creatine Kinase CK-MB (CK-2) CK-MB (CK-2) Rel Index Troponin T C-Reactive Protein NT-Pro-B Natriuret Pep Total Protein Albumin LDL Cholesterol Direct Urine WBC (Auto) 08/22/18 08/22/18 08/22/18 06:10 12:57 16:21 WBC RBC Hgb Hct MCV RDW Plt Count Lymph % (Auto) [place] % (Auto) Baso % (Auto) Lymph # Seg Neuts % (Manual) Lymphocytes % (Manual) Monocytes % (Manual) Basophils % (Manual) Nucleated RBC % Seg Neutrophils # Man Lymphocytes # (Manual) Monocytes # (Manual) PT INR D-Dimer POC ABG pH 7.477 H POC ABG pCO2 POC ABG pO2 Sodium Potassium Chloride Carbon Dioxide BUN Creatinine Glucose POC Glucose 166 H Lactic Acid Uric Acid Calcium Total Bilirubin AST ALT Total Creatine Kinase CK-MB (CK-2) CK-MB (CK-2) Rel Index Troponin T C-Reactive Protein 23.60 H NT-Pro-B Natriuret Pep Total Protein Albumin LDL Cholesterol Direct Urine WBC (Auto) 08/22/18 08/22/18 08/23/18 17:41 23:42 04:38 WBC RBC Hgb Hct MCV RDW Plt Count Lymph % (Auto) [place] % (Auto) Baso % (Auto) Lymph # Seg Neuts % (Manual) Lymphocytes % (Manual) Monocytes % (Manual) Basophils % (Manual) Nucleated RBC % Seg Neutrophils # Man Lymphocytes # (Manual) Monocytes # (Manual) PT INR D-Dimer POC ABG pH 7.249 L POC ABG pCO2 53.5 H POC ABG pO2 73 L Sodium Potassium Chloride Carbon Dioxide BUN Creatinine Glucose POC Glucose 131 H 168 H Lactic Acid Uric Acid Calcium Total Bilirubin AST ALT Total Creatine Kinase CK-MB (CK-2) CK-MB (CK-2) Rel Index Troponin T C-Reactive Protein NT-Pro-B Natriuret Pep Total Protein Albumin LDL Cholesterol Direct Urine WBC (Auto) 08/23/18 08/23/18 08/23/18 04:52 04:52 04:52 WBC RBC 2.39 L Hgb 7.5 L Hct 22.8 L MCV 95 H RDW 17.6 H Plt Count Lymph % (Auto) [place] % (Auto) Baso % (Auto) Lymph # Seg Neuts % (Manual) Lymphocytes % (Manual) Monocytes % (Manual) Basophils % (Manual) Nucleated RBC % Seg Neutrophils # Man Lymphocytes # (Manual) Monocytes # (Manual) PT INR D-Dimer POC ABG pH POC ABG pCO2 POC ABG pO2 Sodium Potassium 5.6 H 5.6 H Chloride Carbon Dioxide 21 L BUN 71 H 72 H Creatinine 4.1 H 4.0 H Glucose 141 H 140 H POC Glucose Lactic Acid Uric Acid Calcium 8.3 L 8.2 L Total Bilirubin AST 247 H ALT 220 H Total Creatine Kinase CK-MB (CK-2) CK-MB (CK-2) Rel Index Troponin T C-Reactive Protein NT-Pro-B Natriuret Pep Total Protein Albumin 2.8 L LDL Cholesterol Direct Urine WBC (Auto) 08/23/18 08/23/18 08/23/18 05:50 08:38 12:21 WBC RBC Hgb Hct MCV RDW Plt Count Lymph % (Auto) [place] % (Auto) Baso % (Auto) Lymph # Seg Neuts % (Manual) Lymphocytes % (Manual) Monocytes % (Manual) Basophils % (Manual) Nucleated RBC % Seg Neutrophils # Man Lymphocytes # (Manual) Monocytes # (Manual) PT INR D-Dimer POC ABG pH POC ABG pCO2 POC ABG pO2 Sodium Potassium Chloride Carbon Dioxide BUN Creatinine Glucose POC Glucose 160 H 177 H Lactic Acid Uric Acid Calcium Total Bilirubin AST ALT Total Creatine Kinase CK-MB (CK-2) CK-MB (CK-2) Rel Index Troponin T C-Reactive Protein NT-Pro-B Natriuret Pep 04802 H Total Protein Albumin LDL Cholesterol Direct Urine WBC (Auto) 08/23/18 08/23/18 08/23/18 12:36 14:24 18:05 WBC RBC Hgb Hct MCV RDW Plt Count Lymph % (Auto) [place] % (Auto) Baso % (Auto) Lymph # Seg Neuts % (Manual) Lymphocytes % (Manual) Monocytes % (Manual) Basophils % (Manual) Nucleated RBC % Seg Neutrophils # Man Lymphocytes # (Manual) Monocytes # (Manual) PT INR D-Dimer POC ABG pH 7.337 L POC ABG pCO2 POC ABG pO2 145 H Sodium 136 L Potassium 5.2 H Chloride Carbon Dioxide BUN 76 H Creatinine 4.2 H Glucose 158 H POC Glucose 169 H Lactic Acid Uric Acid Calcium 8.1 L Total Bilirubin AST ALT Total Creatine Kinase CK-MB (CK-2) CK-MB (CK-2) Rel Index Troponin T C-Reactive Protein NT-Pro-B Natriuret Pep Total Protein Albumin LDL Cholesterol Direct Urine WBC (Auto) 08/23/18 08/23/18 08/24/18 22:43 23:42 05:16 WBC RBC Hgb Hct MCV RDW Plt Count Lymph % (Auto) [place] % (Auto) Baso % (Auto) Lymph # Seg Neuts % (Manual) Lymphocytes % (Manual) Monocytes % (Manual) Basophils % (Manual) Nucleated RBC % Seg Neutrophils # Man Lymphocytes # (Manual) Monocytes # (Manual) PT INR D-Dimer POC ABG pH POC ABG pCO2 POC ABG pO2 Sodium 136 L Potassium 5.3 H 5.2 H Chloride 97.9 L Carbon Dioxide BUN 80 H 86 H Creatinine 4.0 H 4.3 H Glucose 164 H 202 H POC Glucose 183 H Lactic Acid Uric Acid Calcium 7.9 L Total Bilirubin AST ALT Total Creatine Kinase CK-MB (CK-2) CK-MB (CK-2) Rel Index Troponin T C-Reactive Protein NT-Pro-B Natriuret Pep Total Protein Albumin LDL Cholesterol Direct Urine WBC (Auto) 08/24/18 08/24/18 08/24/18 05:21 05:29 10:10 WBC RBC 2.47 L Hgb 7.5 L Hct 23.3 L MCV RDW 17.5 H Plt Count 118 L Lymph % (Auto) [place] % (Auto) Baso % (Auto) Lymph # Seg Neuts % (Manual) 92.0 H Lymphocytes % (Manual) 2.0 L Monocytes % (Manual) Basophils % (Manual) Nucleated RBC % Seg Neutrophils # Man 8.8 H Lymphocytes # (Manual) 0.2 L Monocytes # (Manual) PT INR D-Dimer POC ABG pH 7.243 L POC ABG pCO2 56.8 H POC ABG pO2 Sodium Potassium Chloride Carbon Dioxide BUN Creatinine Glucose POC Glucose 209 H Lactic Acid Uric Acid Calcium Total Bilirubin AST ALT Total Creatine Kinase CK-MB (CK-2) CK-MB (CK-2) Rel Index Troponin T C-Reactive Protein NT-Pro-B Natriuret Pep Total Protein Albumin LDL Cholesterol Direct Urine WBC (Auto) 08/24/18 08/24/18 08/24/18 10:10 11:19 13:41 WBC RBC Hgb Hct MCV RDW Plt Count Lymph % (Auto) [place] % (Auto) Baso % (Auto) Lymph # Seg Neuts % (Manual) Lymphocytes % (Manual) Monocytes % (Manual) Basophils % (Manual) Nucleated RBC % Seg Neutrophils # Man Lymphocytes # (Manual) Monocytes # (Manual) PT INR D-Dimer 1978.25 H POC ABG pH POC ABG pCO2 POC ABG pO2 Sodium Potassium Chloride Carbon Dioxide BUN Creatinine Glucose POC Glucose 212 H Lactic Acid Uric Acid Calcium Total Bilirubin AST ALT Total Creatine Kinase CK-MB (CK-2) CK-MB (CK-2) Rel Index Troponin T C-Reactive Protein NT-Pro-B Natriuret Pep 65377 H Total Protein Albumin LDL Cholesterol Direct Urine WBC (Auto) 08/24/18 08/24/18 08/24/18 13:41 14:27 17:23 WBC RBC Hgb Hct MCV RDW Plt Count Lymph % (Auto) [place] % (Auto) Baso % (Auto) Lymph # Seg Neuts % (Manual) Lymphocytes % (Manual) Monocytes % (Manual) Basophils % (Manual) Nucleated RBC % Seg Neutrophils # Man Lymphocytes # (Manual) Monocytes # (Manual) PT INR D-Dimer POC ABG pH POC ABG pCO2 POC ABG pO2 Sodium 136 L Potassium 5.1 H Chloride 97.8 L Carbon Dioxide BUN 90 H Creatinine 4.1 H Glucose 157 H POC Glucose 155 H Lactic Acid Uric Acid Calcium 8.0 L Total Bilirubin AST ALT Total Creatine Kinase CK-MB (CK-2) CK-MB (CK-2) Rel Index Troponin T C-Reactive Protein 9.00 H NT-Pro-B Natriuret Pep Total Protein Albumin LDL Cholesterol Direct Urine WBC (Auto) 06/08/25/18 08/25/18 00:38 05:22 05:57 WBC RBC Hgb Hct MCV RDW Plt Count Lymph % (Auto) [place] % (Auto) Baso % (Auto) Lymph # Seg Neuts % (Manual) Lymphocytes % (Manual) Monocytes % (Manual) Basophils % (Manual) Nucleated RBC % Seg Neutrophils # Man Lymphocytes # (Manual) Monocytes # (Manual) PT INR D-Dimer POC ABG pH 7.238 L POC ABG pCO2 58.2 H POC ABG pO2 Sodium Potassium 5.4 H Chloride Carbon Dioxide BUN 98 H Creatinine 4.3 H Glucose 217 H POC Glucose 176 H Lactic Acid Uric Acid Calcium 8.3 L Total Bilirubin AST ALT Total Creatine Kinase CK-MB (CK-2) CK-MB (CK-2) Rel Index Troponin T C-Reactive Protein NT-Pro-B Natriuret Pep 33369 H Total Protein Albumin LDL Cholesterol Direct Urine WBC (Auto) 08/25/18 08/25/18 08/25/18 06:56 08:59 11:38 WBC RBC Hgb Hct MCV RDW Plt Count Lymph % (Auto) [place] % (Auto) Baso % (Auto) Lymph # Seg Neuts % (Manual) Lymphocytes % (Manual) Monocytes % (Manual) Basophils % (Manual) Nucleated RBC % Seg Neutrophils # Man Lymphocytes # (Manual) Monocytes # (Manual) PT INR D-Dimer POC ABG pH 7.348 L POC ABG pCO2 48.6 H POC ABG pO2 Sodium Potassium Chloride Carbon Dioxide BUN Creatinine Glucose POC Glucose 247 H 235 H Lactic Acid Uric Acid Calcium Total Bilirubin AST ALT Total Creatine Kinase CK-MB (CK-2) CK-MB (CK-2) Rel Index Troponin T C-Reactive Protein NT-Pro-B Natriuret Pep Total Protein Albumin LDL Cholesterol Direct Urine WBC (Auto) 08/25/18 08/25/18 08/25/18 12:29 16:43 16:43 WBC 14.7 H RBC 2.90 L Hgb 8.9 L Hct 27.4 L MCV 95 H RDW 17.3 H Plt Count 119 L Lymph % (Auto) [place] % (Auto) Baso % (Auto) Lymph # Seg Neuts % (Manual) 94.0 H Lymphocytes % (Manual) 2.0 L Monocytes % (Manual) Basophils % (Manual) Nucleated RBC % Seg Neutrophils # Man 13.8 H Lymphocytes # (Manual) 0.3 L Monocytes # (Manual) PT 15.6 H INR 1.27 H D-Dimer POC ABG pH POC ABG pCO2 POC ABG pO2 Sodium Potassium Chloride Carbon Dioxide BUN Creatinine Glucose POC Glucose 237 H Lactic Acid Uric Acid Calcium Total Bilirubin AST ALT Total Creatine Kinase CK-MB (CK-2) CK-MB (CK-2) Rel Index Troponin T C-Reactive Protein NT-Pro-B Natriuret Pep Total Protein Albumin LDL Cholesterol Direct Urine WBC (Auto) 08/25/18 08/26/18 08/26/18 17:22 00:16 04:56 WBC RBC Hgb Hct MCV RDW Plt Count Lymph % (Auto) [place] % (Auto) Baso % (Auto) Lymph # Seg Neuts % (Manual) Lymphocytes % (Manual) Monocytes % (Manual) Basophils % (Manual) Nucleated RBC % Seg Neutrophils # Man Lymphocytes # (Manual) Monocytes # (Manual) PT INR D-Dimer POC ABG pH POC ABG pCO2 45.2 H POC ABG pO2 Sodium Potassium Chloride Carbon Dioxide BUN Creatinine Glucose POC Glucose 200 H 180 H Lactic Acid Uric Acid Calcium Total Bilirubin AST ALT Total Creatine Kinase CK-MB (CK-2) CK-MB (CK-2) Rel Index Troponin T C-Reactive Protein NT-Pro-B Natriuret Pep Total Protein Albumin LDL Cholesterol Direct Urine WBC (Auto) 08/26/18 08/26/18 08/26/18 05:53 06:20 08:48 WBC RBC Hgb Hct MCV RDW Plt Count Lymph % (Auto) [place] % (Auto) Baso % (Auto) Lymph # Seg Neuts % (Manual) Lymphocytes % (Manual) Monocytes % (Manual) Basophils % (Manual) Nucleated RBC % Seg Neutrophils # Man Lymphocytes # (Manual) Monocytes # (Manual) PT INR D-Dimer POC ABG pH POC ABG pCO2 POC ABG pO2 Sodium Potassium Chloride Carbon Dioxide BUN 106 H Creatinine 3.9 H Glucose 137 H POC Glucose 131 H 126 H Lactic Acid Uric Acid Calcium 8.1 L Total Bilirubin AST ALT Total Creatine Kinase CK-MB (CK-2) CK-MB (CK-2) Rel Index Troponin T C-Reactive Protein NT-Pro-B Natriuret Pep > 55988 H Total Protein Albumin LDL Cholesterol Direct Urine WBC (Auto) 08/26/18 08/26/18 08/26/18 11:39 17:33 18:02 WBC RBC Hgb Hct MCV RDW Plt Count Lymph % (Auto) [place] % (Auto) Baso % (Auto) Lymph # Seg Neuts % (Manual) Lymphocytes % (Manual) Monocytes % (Manual) Basophils % (Manual) Nucleated RBC % Seg Neutrophils # Man Lymphocytes # (Manual) Monocytes # (Manual) PT INR D-Dimer POC ABG pH POC ABG pCO2 POC ABG pO2 58 L Sodium Potassium Chloride Carbon Dioxide BUN Creatinine Glucose POC Glucose 156 H 173 H Lactic Acid Uric Acid Calcium Total Bilirubin AST ALT Total Creatine Kinase CK-MB (CK-2) CK-MB (CK-2) Rel Index Troponin T C-Reactive Protein NT-Pro-B Natriuret Pep Total Protein Albumin LDL Cholesterol Direct Urine WBC (Auto) 08/26/18 08/27/18 08/27/18 23:12 04:59 11:51 WBC RBC Hgb Hct MCV RDW Plt Count Lymph % (Auto) [place] % (Auto) Baso % (Auto) Lymph # Seg Neuts % (Manual) Lymphocytes % (Manual) Monocytes % (Manual) Basophils % (Manual) Nucleated RBC % Seg Neutrophils # Man Lymphocytes # (Manual) Monocytes # (Manual) PT INR D-Dimer POC ABG pH 7.563 H POC ABG pCO2 < 30 L POC ABG pO2 69 L Sodium Potassium Chloride Carbon Dioxide BUN Creatinine Glucose POC Glucose 130 H 107 H Lactic Acid Uric Acid Calcium Total Bilirubin AST ALT Total Creatine Kinase CK-MB (CK-2) CK-MB (CK-2) Rel Index Troponin T C-Reactive Protein NT-Pro-B Natriuret Pep Total Protein Albumin LDL Cholesterol Direct Urine WBC (Auto) 08/27/18 08/27/18 08/27/18 11:58 11:58 11:58 WBC RBC 2.66 L Hgb 8.1 L Hct 24.7 L MCV RDW 16.7 H Plt Count Lymph % (Auto) [place] % (Auto) Baso % (Auto) Lymph # Seg Neuts % (Manual) Lymphocytes % (Manual) Monocytes % (Manual) Basophils % (Manual) Nucleated RBC % Seg Neutrophils # Man Lymphocytes # (Manual) Monocytes # (Manual) PT INR D-Dimer POC ABG pH POC ABG pCO2 POC ABG pO2 Sodium Potassium Chloride Carbon Dioxide BUN 71 H Creatinine 2.9 H Glucose POC Glucose Lactic Acid Uric Acid Calcium 7.6 L Total Bilirubin AST ALT Total Creatine Kinase CK-MB (CK-2) CK-MB (CK-2) Rel Index Troponin T C-Reactive Protein NT-Pro-B Natriuret Pep > 16790 H Total Protein 6.1 L Albumin 2.4 L LDL Cholesterol Direct Urine WBC (Auto) 08/28/18 08/28/18 08/28/18 04:38 04:49 04:49 WBC RBC 2.65 L Hgb 8.3 L Hct 25.3 L MCV 96 H RDW 17.3 H Plt Count 83 L Lymph % (Auto) [place] % (Auto) Baso % (Auto) Lymph # Seg Neuts % (Manual) Lymphocytes % (Manual) Monocytes % (Manual) Basophils % (Manual) Nucleated RBC % Seg Neutrophils # Man Lymphocytes # (Manual) Monocytes # (Manual) PT INR D-Dimer POC ABG pH POC ABG pCO2 POC ABG pO2 112 H Sodium Potassium Chloride Carbon Dioxide BUN Creatinine Glucose POC Glucose Lactic Acid Uric Acid Calcium Total Bilirubin AST ALT Total Creatine Kinase CK-MB (CK-2) CK-MB (CK-2) Rel Index Troponin T C-Reactive Protein NT-Pro-B Natriuret Pep > 87368 H Total Protein Albumin LDL Cholesterol Direct Urine WBC (Auto) 08/28/18 08/28/18 08/29/18 04:49 14:24 00:11 WBC RBC Hgb Hct MCV RDW Plt Count Lymph % (Auto) [place] % (Auto) Baso % (Auto) Lymph # Seg Neuts % (Manual) Lymphocytes % (Manual) Monocytes % (Manual) Basophils % (Manual) Nucleated RBC % Seg Neutrophils # Man Lymphocytes # (Manual) Monocytes # (Manual) PT INR D-Dimer POC ABG pH 7.278 L POC ABG pCO2 57.9 H POC ABG pO2 79 L Sodium Potassium Chloride Carbon Dioxide BUN 69 H Creatinine 2.4 H Glucose POC Glucose 171 H Lactic Acid Uric Acid Calcium 7.7 L Total Bilirubin AST ALT Total Creatine Kinase CK-MB (CK-2) CK-MB (CK-2) Rel Index Troponin T C-Reactive Protein NT-Pro-B Natriuret Pep Total Protein 5.4 L Albumin 2.2 L LDL Cholesterol Direct Urine WBC (Auto) 08/29/18 08/29/18 08/29/18 04:39 05:35 05:35 WBC 13.6 H RBC 3.09 L Hgb 9.4 L Hct 29.5 L MCV 96 H RDW 17.9 H Plt Count 127 L Lymph % (Auto) [place] % (Auto) Baso % (Auto) Lymph # Seg Neuts % (Manual) Lymphocytes % (Manual) Monocytes % (Manual) Basophils % (Manual) Nucleated RBC % Seg Neutrophils # Man Lymphocytes # (Manual) Monocytes # (Manual) PT INR D-Dimer POC ABG pH 7.312 L POC ABG pCO2 57.6 H POC ABG pO2 79 L Sodium Potassium Chloride Carbon Dioxide BUN 42 H Creatinine 1.9 H Glucose 107 H POC Glucose Lactic Acid Uric Acid Calcium Total Bilirubin AST ALT Total Creatine Kinase CK-MB (CK-2) CK-MB (CK-2) Rel Index Troponin T C-Reactive Protein NT-Pro-B Natriuret Pep Total Protein Albumin LDL Cholesterol Direct Urine WBC (Auto) 08/29/18 08/29/18 08/29/18 05:48 11:37 15:32 WBC RBC Hgb Hct MCV RDW Plt Count Lymph % (Auto) [place] % (Auto) Baso % (Auto) Lymph # Seg Neuts % (Manual) Lymphocytes % (Manual) Monocytes % (Manual) Basophils % (Manual) Nucleated RBC % Seg Neutrophils # Man Lymphocytes # (Manual) Monocytes # (Manual) PT INR D-Dimer POC ABG pH POC ABG pCO2 47.0 H POC ABG pO2 78 L Sodium Potassium Chloride Carbon Dioxide BUN Creatinine Glucose POC Glucose 114 H 116 H Lactic Acid Uric Acid Calcium Total Bilirubin AST ALT Total Creatine Kinase CK-MB (CK-2) CK-MB (CK-2) Rel Index Troponin T C-Reactive Protein NT-Pro-B Natriuret Pep Total Protein Albumin LDL Cholesterol Direct Urine WBC (Auto) 08/29/18 08/30/18 08/30/18 17:28 00:17 04:41 WBC RBC Hgb Hct MCV RDW Plt Count Lymph % (Auto) [place] % (Auto) Baso % (Auto) Lymph # Seg Neuts % (Manual) Lymphocytes % (Manual) Monocytes % (Manual) Basophils % (Manual) Nucleated RBC % Seg Neutrophils # Man Lymphocytes # (Manual) Monocytes # (Manual) PT INR D-Dimer POC ABG pH POC ABG pCO2 48.1 H POC ABG pO2 Sodium Potassium Chloride Carbon Dioxide BUN Creatinine Glucose POC Glucose 174 H 132 H Lactic Acid Uric Acid Calcium Total Bilirubin AST ALT Total Creatine Kinase CK-MB (CK-2) CK-MB (CK-2) Rel Index Troponin T C-Reactive Protein NT-Pro-B Natriuret Pep Total Protein Albumin LDL Cholesterol Direct Urine WBC (Auto) 08/30/18 08/30/18 08/30/18 05:17 05:34 06:10 WBC RBC 2.68 L Hgb 8.2 L Hct 25.6 L MCV 96 H RDW 17.2 H Plt Count 118 L Lymph % (Auto) [place] % (Auto) Baso % (Auto) Lymph # Seg Neuts % (Manual) Lymphocytes % (Manual) Monocytes % (Manual) Basophils % (Manual) Nucleated RBC % Seg Neutrophils # Man Lymphocytes # (Manual) Monocytes # (Manual) PT INR D-Dimer POC ABG pH POC ABG pCO2 POC ABG pO2 Sodium Potassium Chloride Carbon Dioxide BUN 54 H Creatinine 2.4 H Glucose 120 H POC Glucose 141 H Lactic Acid Uric Acid Calcium Total Bilirubin AST ALT Total Creatine Kinase CK-MB (CK-2) CK-MB (CK-2) Rel Index Troponin T C-Reactive Protein NT-Pro-B Natriuret Pep Total Protein Albumin LDL Cholesterol Direct Urine WBC (Auto) 08/30/18 08/30/18 08/30/18 13:11 18:11 23:55 WBC RBC Hgb Hct MCV RDW Plt Count Lymph % (Auto) [place] % (Auto) Baso % (Auto) Lymph # Seg Neuts % (Manual) Lymphocytes % (Manual) Monocytes % (Manual) Basophils % (Manual) Nucleated RBC % Seg Neutrophils # Man Lymphocytes # (Manual) Monocytes # (Manual) PT INR D-Dimer POC ABG pH POC ABG pCO2 POC ABG pO2 Sodium Potassium Chloride Carbon Dioxide BUN Creatinine Glucose POC Glucose 167 H 144 H 144 H Lactic Acid Uric Acid Calcium Total Bilirubin AST ALT Total Creatine Kinase CK-MB (CK-2) CK-MB (CK-2) Rel Index Troponin T C-Reactive Protein NT-Pro-B Natriuret Pep Total Protein Albumin LDL Cholesterol Direct Urine WBC (Auto) 08/31/18 08/31/18 08/31/18 05:07 05:07 05:44 WBC RBC 2.62 L Hgb 8.1 L Hct 25.0 L MCV 96 H RDW 17.5 H Plt Count 128 L Lymph % (Auto) [place] % (Auto) Baso % (Auto) Lymph # Seg Neuts % (Manual) Lymphocytes % (Manual) Monocytes % (Manual) Basophils % (Manual) Nucleated RBC % Seg Neutrophils # Man Lymphocytes # (Manual) Monocytes # (Manual) PT INR D-Dimer POC ABG pH POC ABG pCO2 POC ABG pO2 Sodium Potassium Chloride Carbon Dioxide BUN 58 H Creatinine 2.3 H Glucose 103 H POC Glucose 109 H Lactic Acid Uric Acid Calcium Total Bilirubin AST ALT Total Creatine Kinase CK-MB (CK-2) CK-MB (CK-2) Rel Index Troponin T C-Reactive Protein NT-Pro-B Natriuret Pep Total Protein Albumin LDL Cholesterol Direct Urine WBC (Auto) 08/31/18 08/31/18 08/31/18 11:26 13:54 19:05 WBC RBC Hgb Hct MCV RDW Plt Count Lymph % (Auto) [place] % (Auto) Baso % (Auto) Lymph # Seg Neuts % (Manual) Lymphocytes % (Manual) Monocytes % (Manual) Basophils % (Manual) Nucleated RBC % Seg Neutrophils # Man Lymphocytes # (Manual) Monocytes # (Manual) PT INR D-Dimer POC ABG pH POC ABG pCO2 POC ABG pO2 Sodium Potassium Chloride Carbon Dioxide BUN Creatinine Glucose POC Glucose 117 H 186 H Lactic Acid Uric Acid 9.6 H Calcium Total Bilirubin AST ALT Total Creatine Kinase CK-MB (CK-2) CK-MB (CK-2) Rel Index Troponin T C-Reactive Protein NT-Pro-B Natriuret Pep Total Protein Albumin LDL Cholesterol Direct Urine WBC (Auto) 08/31/18 09/01/18 09/01/18 23:50 06:27 09:21 WBC RBC 2.74 L Hgb 8.6 L Hct 25.8 L MCV RDW 17.3 H Plt Count Lymph % (Auto) [place] % (Auto) Baso % (Auto) Lymph # Seg Neuts % (Manual) Lymphocytes % (Manual) Monocytes % (Manual) Basophils % (Manual) Nucleated RBC % Seg Neutrophils # Man Lymphocytes # (Manual) Monocytes # (Manual) PT INR D-Dimer POC ABG pH POC ABG pCO2 POC ABG pO2 Sodium Potassium Chloride Carbon Dioxide BUN Creatinine Glucose POC Glucose 141 H 62 L Lactic Acid Uric Acid Calcium Total Bilirubin AST ALT Total Creatine Kinase CK-MB (CK-2) CK-MB (CK-2) Rel Index Troponin T C-Reactive Protein NT-Pro-B Natriuret Pep Total Protein Albumin LDL Cholesterol Direct Urine WBC (Auto) 09/01/18 09/01/18 09/01/18 09:21 12:27 17:51 WBC RBC Hgb Hct MCV RDW Plt Count Lymph % (Auto) [place] % (Auto) Baso % (Auto) Lymph # Seg Neuts % (Manual) Lymphocytes % (Manual) Monocytes % (Manual) Basophils % (Manual) Nucleated RBC % Seg Neutrophils # Man Lymphocytes # (Manual) Monocytes # (Manual) PT INR D-Dimer POC ABG pH POC ABG pCO2 POC ABG pO2 Sodium Potassium 3.0 L D Chloride 109.8 H Carbon Dioxide BUN 45 H Creatinine 1.7 H Glucose POC Glucose 106 H 108 H Lactic Acid Uric Acid Calcium 7.1 L D Total Bilirubin AST ALT Total Creatine Kinase CK-MB (CK-2) CK-MB (CK-2) Rel Index Troponin T C-Reactive Protein NT-Pro-B Natriuret Pep Total Protein Albumin LDL Cholesterol Direct Urine WBC (Auto) 09/02/18 09/02/18 09/02/18 05:16 05:16 12:01 WBC RBC 2.60 L Hgb 8.1 L Hct 24.8 L MCV 95 H RDW 17.1 H Plt Count Lymph % (Auto) [place] % (Auto) Baso % (Auto) Lymph # Seg Neuts % (Manual) Lymphocytes % (Manual) Monocytes % (Manual) Basophils % (Manual) Nucleated RBC % Seg Neutrophils # Man Lymphocytes # (Manual) Monocytes # (Manual) PT INR D-Dimer POC ABG pH POC ABG pCO2 POC ABG pO2 Sodium Potassium Chloride Carbon Dioxide BUN 49 H Creatinine 1.8 H Glucose 107 H POC Glucose 124 H Lactic Acid Uric Acid Calcium 8.1 L Total Bilirubin AST ALT Total Creatine Kinase CK-MB (CK-2) CK-MB (CK-2) Rel Index Troponin T C-Reactive Protein NT-Pro-B Natriuret Pep Total Protein Albumin LDL Cholesterol Direct Urine WBC (Auto) 09/02/18 09/02/18 09/03/18 18:38 23:12 08:22 WBC RBC Hgb Hct MCV RDW Plt Count Lymph % (Auto) [place] % (Auto) Baso % (Auto) Lymph # Seg Neuts % (Manual) Lymphocytes % (Manual) Monocytes % (Manual) Basophils % (Manual) Nucleated RBC % Seg Neutrophils # Man Lymphocytes # (Manual) Monocytes # (Manual) PT INR D-Dimer POC ABG pH POC ABG pCO2 POC ABG pO2 Sodium Potassium Chloride Carbon Dioxide BUN Creatinine Glucose POC Glucose 164 H 128 H 115 H Lactic Acid Uric Acid Calcium Total Bilirubin AST ALT Total Creatine Kinase CK-MB (CK-2) CK-MB (CK-2) Rel Index Troponin T C-Reactive Protein NT-Pro-B Natriuret Pep Total Protein Albumin LDL Cholesterol Direct Urine WBC (Auto) 09/03/18 09/03/18 09/03/18 11:48 16:37 20:48 WBC RBC Hgb Hct MCV RDW Plt Count Lymph % (Auto) [place] % (Auto) Baso % (Auto) Lymph # Seg Neuts % (Manual) Lymphocytes % (Manual) Monocytes % (Manual) Basophils % (Manual) Nucleated RBC % Seg Neutrophils # Man Lymphocytes # (Manual) Monocytes # (Manual) PT INR D-Dimer POC ABG pH POC ABG pCO2 POC ABG pO2 Sodium Potassium Chloride Carbon Dioxide BUN Creatinine Glucose POC Glucose 203 H 146 H 150 H Lactic Acid Uric Acid Calcium Total Bilirubin AST ALT Total Creatine Kinase CK-MB (CK-2) CK-MB (CK-2) Rel Index Troponin T C-Reactive Protein NT-Pro-B Natriuret Pep Total Protein Albumin LDL Cholesterol Direct Urine WBC (Auto) 09/04/18 09/04/18 09/04/18 08:29 12:08 13:32 WBC RBC Hgb Hct MCV RDW Plt Count Lymph % (Auto) [place] % (Auto) Baso % (Auto) Lymph # Seg Neuts % (Manual) Lymphocytes % (Manual) Monocytes % (Manual) Basophils % (Manual) Nucleated RBC % Seg Neutrophils # Man Lymphocytes # (Manual) Monocytes # (Manual) PT INR D-Dimer POC ABG pH POC ABG pCO2 POC ABG pO2 Sodium 136 L Potassium Chloride Carbon Dioxide BUN 42 H Creatinine 1.6 H Glucose 180 H POC Glucose 129 H 149 H Lactic Acid Uric Acid Calcium Total Bilirubin AST ALT Total Creatine Kinase CK-MB (CK-2) CK-MB (CK-2) Rel Index Troponin T C-Reactive Protein NT-Pro-B Natriuret Pep Total Protein Albumin LDL Cholesterol Direct Urine WBC (Auto) 09/04/18 09/05/18 09/05/18 16:33 07:03 07:03 WBC RBC 2.92 L Hgb 9.1 L Hct 27.4 L MCV RDW 17.3 H Plt Count Lymph % (Auto) [place] % (Auto) Baso % (Auto) Lymph # Seg Neuts % (Manual) 81.0 H Lymphocytes % (Manual) 7.0 L Monocytes % (Manual) 8.0 H Basophils % (Manual) Nucleated RBC % Seg Neutrophils # Man Lymphocytes # (Manual) 0.5 L Monocytes # (Manual) PT INR D-Dimer POC ABG pH POC ABG pCO2 POC ABG pO2 Sodium Potassium Chloride Carbon Dioxide BUN 40 H Creatinine Glucose 153 H POC Glucose 165 H Lactic Acid Uric Acid Calcium Total Bilirubin AST ALT Total Creatine Kinase CK-MB (CK-2) CK-MB (CK-2) Rel Index Troponin T C-Reactive Protein NT-Pro-B Natriuret Pep Total Protein Albumin LDL Cholesterol Direct Urine WBC (Auto) 09/05/18 09/05/18 09/05/18 08:00 11:51 21:20 WBC RBC Hgb Hct MCV RDW Plt Count Lymph % (Auto) [place] % (Auto) Baso % (Auto) Lymph # Seg Neuts % (Manual) Lymphocytes % (Manual) Monocytes % (Manual) Basophils % (Manual) Nucleated RBC % Seg Neutrophils # Man Lymphocytes # (Manual) Monocytes # (Manual) PT INR D-Dimer POC ABG pH POC ABG pCO2 POC ABG pO2 Sodium Potassium Chloride Carbon Dioxide BUN Creatinine Glucose POC Glucose 146 H 207 H 114 H Lactic Acid Uric Acid Calcium Total Bilirubin AST ALT Total Creatine Kinase CK-MB (CK-2) CK-MB (CK-2) Rel Index Troponin T C-Reactive Protein NT-Pro-B Natriuret Pep Total Protein Albumin LDL Cholesterol Direct Urine WBC (Auto) 09/06/18 09/06/18 09/06/18 06:42 06:42 11:38 WBC RBC 2.90 L Hgb 9.0 L Hct 27.0 L MCV RDW 17.4 H Plt Count 130 L Lymph % (Auto) [place] % (Auto) Baso % (Auto) Lymph # Seg Neuts % (Manual) 79.0 H Lymphocytes % (Manual) 6.0 L Monocytes % (Manual) 12.0 H Basophils % (Manual) 2.0 H Nucleated RBC % Seg Neutrophils # Man Lymphocytes # (Manual) 0.3 L Monocytes # (Manual) PT INR D-Dimer POC ABG pH POC ABG pCO2 POC ABG pO2 Sodium 136 L Potassium Chloride Carbon Dioxide BUN 39 H Creatinine Glucose 106 H POC Glucose 265 H Lactic Acid Uric Acid Calcium Total Bilirubin AST ALT Total Creatine Kinase CK-MB (CK-2) CK-MB (CK-2) Rel Index Troponin T C-Reactive Protein NT-Pro-B Natriuret Pep Total Protein Albumin LDL Cholesterol Direct Urine WBC (Auto) 09/06/18 09/06/18 09/07/18 16:37 20:55 05:12 WBC RBC 2.80 L Hgb 8.7 L Hct 26.5 L MCV 95 H RDW 17.7 H Plt Count Lymph % (Auto) 13.3 L [place] % (Auto) 14.2 H Baso % (Auto) 1.9 H Lymph # 0.7 L Seg Neuts % (Manual) Lymphocytes % (Manual) Monocytes % (Manual) Basophils % (Manual) Nucleated RBC % Seg Neutrophils # Man Lymphocytes # (Manual) Monocytes # (Manual) PT INR D-Dimer POC ABG pH POC ABG pCO2 POC ABG pO2 Sodium Potassium Chloride Carbon Dioxide BUN Creatinine Glucose POC Glucose 131 H 135 H Lactic Acid Uric Acid Calcium Total Bilirubin AST ALT Total Creatine Kinase CK-MB (CK-2) CK-MB (CK-2) Rel Index Troponin T C-Reactive Protein NT-Pro-B Natriuret Pep Total Protein Albumin LDL Cholesterol Direct Urine WBC (Auto) 09/07/18 09/07/18 09/07/18 05:12 11:28 15:32 WBC RBC Hgb Hct MCV RDW Plt Count Lymph % (Auto) [place] % (Auto) Baso % (Auto) Lymph # Seg Neuts % (Manual) Lymphocytes % (Manual) Monocytes % (Manual) Basophils % (Manual) Nucleated RBC % Seg Neutrophils # Man Lymphocytes # (Manual) Monocytes # (Manual) PT INR D-Dimer POC ABG pH POC ABG pCO2 POC ABG pO2 Sodium Potassium Chloride Carbon Dioxide BUN 36 H Creatinine Glucose POC Glucose 176 H 131 H Lactic Acid Uric Acid Calcium Total Bilirubin AST ALT Total Creatine Kinase CK-MB (CK-2) CK-MB (CK-2) Rel Index Troponin T C-Reactive Protein NT-Pro-B Natriuret Pep Total Protein Albumin LDL Cholesterol Direct Urine WBC (Auto) 09/07/18 09/08/18 09/08/18 21:50 05:23 05:23 WBC RBC 2.72 L Hgb 8.5 L Hct 26.9 L MCV 99 H RDW 18.0 H Plt Count 136 L Lymph % (Auto) 13.1 L [place] % (Auto) 15.7 H Baso % (Auto) 1.9 H Lymph # 0.7 L Seg Neuts % (Manual) Lymphocytes % (Manual) Monocytes % (Manual) Basophils % (Manual) Nucleated RBC % Seg Neutrophils # Man Lymphocytes # (Manual) Monocytes # (Manual) PT INR D-Dimer POC ABG pH POC ABG pCO2 POC ABG pO2 Sodium 134 L Potassium 5.2 H Chloride Carbon Dioxide BUN 36 H Creatinine Glucose POC Glucose 160 H Lactic Acid Uric Acid Calcium Total Bilirubin AST ALT Total Creatine Kinase CK-MB (CK-2) CK-MB (CK-2) Rel Index Troponin T C-Reactive Protein NT-Pro-B Natriuret Pep Total Protein Albumin LDL Cholesterol Direct Urine WBC (Auto) 09/08/18 09/08/18 09/09/18 12:33 16:57 05:52 WBC RBC 2.64 L Hgb 8.1 L Hct 25.2 L MCV 95 H RDW 17.8 H Plt Count Lymph % (Auto) [place] % (Auto) 14.3 H Baso % (Auto) 1.9 H Lymph # 0.6 L Seg Neuts % (Manual) Lymphocytes % (Manual) Monocytes % (Manual) Basophils % (Manual) Nucleated RBC % Seg Neutrophils # Man Lymphocytes # (Manual) Monocytes # (Manual) PT INR D-Dimer POC ABG pH POC ABG pCO2 POC ABG pO2 Sodium Potassium Chloride Carbon Dioxide BUN Creatinine Glucose POC Glucose 198 H 195 H Lactic Acid Uric Acid Calcium Total Bilirubin AST ALT Total Creatine Kinase CK-MB (CK-2) CK-MB (CK-2) Rel Index Troponin T C-Reactive Protein NT-Pro-B Natriuret Pep Total Protein Albumin LDL Cholesterol Direct Urine WBC (Auto) 09/09/18 09/09/18 09/09/18 05:52 11:50 16:28 WBC RBC Hgb Hct MCV RDW Plt Count Lymph % (Auto) [place] % (Auto) Baso % (Auto) Lymph # Seg Neuts % (Manual) Lymphocytes % (Manual) Monocytes % (Manual) Basophils % (Manual) Nucleated RBC % Seg Neutrophils # Man Lymphocytes # (Manual) Monocytes # (Manual) PT INR D-Dimer POC ABG pH POC ABG pCO2 POC ABG pO2 Sodium 136 L Potassium Chloride Carbon Dioxide BUN 34 H Creatinine Glucose POC Glucose 122 H 170 H Lactic Acid Uric Acid Calcium 8.1 L Total Bilirubin AST ALT Total Creatine Kinase CK-MB (CK-2) CK-MB (CK-2) Rel Index Troponin T C-Reactive Protein NT-Pro-B Natriuret Pep Total Protein Albumin LDL Cholesterol Direct Urine WBC (Auto) 09/09/18 09/10/18 09/10/18 22:02 05:09 05:09 WBC 3.9 L RBC 2.63 L Hgb 8.2 L Hct 25.0 L MCV 95 H RDW 17.4 H Plt Count Lymph % (Auto) [place] % (Auto) 15.9 H Baso % (Auto) 2.0 H Lymph # 0.6 L Seg Neuts % (Manual) Lymphocytes % (Manual) Monocytes % (Manual) Basophils % (Manual) Nucleated RBC % Seg Neutrophils # Man Lymphocytes # (Manual) Monocytes # (Manual) PT INR D-Dimer POC ABG pH POC ABG pCO2 POC ABG pO2 Sodium Potassium 5.1 H Chloride Carbon Dioxide BUN 31 H Creatinine Glucose 106 H POC Glucose 144 H Lactic Acid Uric Acid Calcium 8.3 L Total Bilirubin AST ALT Total Creatine Kinase CK-MB (CK-2) CK-MB (CK-2) Rel Index Troponin T C-Reactive Protein NT-Pro-B Natriuret Pep Total Protein Albumin LDL Cholesterol Direct Urine WBC (Auto) Allied health notes reviewed: nursing
[2018-09-10] MEDS: AMBIEN PO PRN (22:17)
[2018-09-11] MEDS: BENADRYL PO PRN ×3 (06:14→21:31)
[2018-09-11 06:15] LABS: Basophils # (Auto) 0.1 K/mm3 (0.0-0.1); Basophils % (Auto) 2.6 % (0.0-1.8); Eosinophils # (Auto) 0.2 K/mm3 (0.0-0.4); Eosinophils % (Auto) 5.2 % (0.0-4.3); Hemoglobin 7.4 gm/dl (11.8-15.2); Lymphocytes # (Auto) 0.6 K/mm3 (1.2-5.4); Lymphocytes % (Auto) 16.1 % (13.4-35.0); Mean Corpuscular HGB Conc 32 % (32-34); Mean Corpuscular Hemoglobin 31 pg (28-32); Mean Corpuscular Volume 96 fl (84-94); Monocytes # (Auto) 0.5 K/mm3 (0.0-0.8); Monocytes % (Auto) 15.3 % (0.0-7.3); Platelet Count 151 K/mm3 (140-440); Red Blood Count 2.41 M/mm3 (3.65-5.03); Red Cell Distribution Width 18.1 % (13.2-15.2)
[2018-09-11 06:40] LABS: Calcium 8.6 mg/dL (8.4-10.2)
[2018-09-11] MEDS: BROVANA NEBU IH SCH ×2 (07:09→20:42)
[2018-09-11] MEDS: DUONEB *Not for PRN Use IH SCH ×2 (07:10→20:46)
[2018-09-11] MEDS: PULMICORT IH SCH ×2 (07:10→20:42)
[2018-09-11] MEDS: HumaLOG SUB-Q SCH ×4 (09:07→21:31)
[2018-09-11] MEDS: HEPARIN SUB-Q SCH ×2 (09:28→21:31)
[2018-09-11] MEDS: APRESOLINE PO SCH ×2 (09:28→21:31)
[2018-09-11] MEDS: KEPPRA PO SCH ×2 (09:28→21:31)
[2018-09-11] MEDS: SODIUM CHLORIDE FLUSH SYRINGE 10 ML IV SCH ×2 (09:28→21:31)
[2018-09-11] MEDS ORDERED: KIONEX PO NR (12:04)
--- NOTE | 2018-09-11 12:04 | Progress Note ---
Assessment and Plan Assessment and plan: Acute on chronic respiratory failure. Etiology secondary to COPD exacerbation. Continue O2 and nebulizers. Improving. Acute kidney injury on CKD stage III. Off hemodialysis now. Creatinine remaine d stable despite off hemodialysis. Acute COPD exacerbation. We'll continue nebulizers, antibiotics and O2 continuously. Also prednisone at discharge. Patient doing well. Awaiting fci placement Pneumonia may be gram-negative nini continue current antibiotics per ID. Sepsis. Improved. Leukocytosis resolved. Pulseless electrical activity status post cardiorespiratory arrest. Cont. beta renetta and aspirin. Supportive care. Seizure disorder. EEG Normal Morbid obesity. supportive care Disposition. Awaiting alf placement. History Interval history: No new issues overnight. Hospitalist Physical - Constitutional Vitals: Temp Pulse Resp BP Pulse Ox 97.7 F 112 H 20 118/58 98 09/11/18 04:32 09/11/18 10:00 09/11/18 04:30 09/11/18 04:30 09/11/18 04:30 General appearance: Present: no acute distress, other (intubated, chronically ill appearing) - EENT Eyes: Present: PERRL, EOM intact ENT: hearing intact, clear oral mucosa, dentition normal - Neck Neck: Present: supple, normal ROM - Respiratory Respiratory effort: normal Respiratory: bilateral: CTA - Cardiovascular Rhythm: regular Heart Sounds: Present: S1 & S2. Absent: gallop, rub - Extremities Extremities: no ischemia, No edema, Full ROM - Abdominal General gastrointestinal: soft, non-tender, non-distended, normal bowel sounds - Integumentary Integumentary: Present: clear, warm, dry - Neurologic Neurologic: CNII-XII intact, moves all extremities Results - Labs CBC & Chem 7: 09/11/18 06:00 09/11/18 06:00 Labs: Laboratory Last Values WBC 3.5 K/mm3 (4.5-11.0) L 09/11/18 06:00 RBC 2.41 M/mm3 (3.65-5.03) L 09/11/18 06:00 Hgb 7.4 gm/dl (11.8-15.2) L 09/11/18 06:00 Hct 23.0 % (35.5-45.6) L 09/11/18 06:00 MCV 96 fl (84-94) H 09/11/18 06:00 MCH 31 pg (28-32) 09/11/18 06:00 MCHC 32 % (32-34) 09/11/18 06:00 RDW 18.1 % (13.2-15.2) H 09/11/18 06:00 Plt Count 151 K/mm3 (140-440) 09/11/18 06:00 Lymph % (Auto) 16.1 % (13.4-35.0) 09/11/18 06:00 [place] % (Auto) 15.3 % (0.0-7.3) H 09/11/18 06:00 Eos % (Auto) 5.2 % (0.0-4.3) H 09/11/18 06:00 Baso % (Auto) 2.6 % (0.0-1.8) H 09/11/18 06:00 Lymph # 0.6 K/mm3 (1.2-5.4) L 09/11/18 06:00 [place] # 0.5 K/mm3 (0.0-0.8) 09/11/18 06:00 Eos # 0.2 K/mm3 (0.0-0.4) 09/11/18 06:00 Baso # 0.1 K/mm3 (0.0-0.1) 09/11/18 06:00 Add Manual Diff Complete 09/06/18 06:42 Total Counted 100 09/06/18 06:42 Seg Neutrophils % 60.8 % (40.0-70.0) 09/11/18 06:00 Seg Neuts % (Manual) 79.0 % (40.0-70.0) H 09/06/18 06:42 0 % 09/06/18 06:42 6.0 % (13.4-35.0) L 09/06/18 06:42 Reactive Lymphs % (Man) 0 % 09/06/18 06:42 12.0 % (0.0-7.3) H 09/06/18 06:42 1.0 % (0.0-4.3) 09/06/18 06:42 2.0 % (0.0-1.8) H 09/06/18 06:42 0 % 09/06/18 06:42 0 % 09/06/18 06:42 0 % 09/06/18 06:42 0 % 09/06/18 06:42 Nucleated RBC % Not Reportable 09/06/18 06:42 Seg Neutrophils # 2.1 K/mm3 (1.8-7.7) 09/11/18 06:00 Seg Neutrophils # Man 3.9 K/mm3 (1.8-7.7) 09/06/18 06:42 Band Neutrophils # 0.0 K/mm3 09/06/18 06:42 0.3 K/mm3 (1.2-5.4) L 09/06/18 06:42 Abs React Lymphs (Man) 0.0 K/mm3 09/06/18 06:42 0.6 K/mm3 (0.0-0.8) 09/06/18 06:42 0.0 K/mm3 (0.0-0.4) 09/06/18 06:42 0.1 K/mm3 (0.0-0.1) 09/06/18 06:42 0.0 K/mm3 09/06/18 06:42 0.0 K/mm3 09/06/18 06:42 0.0 K/mm3 09/06/18 06:42 Blast Cells # 0.0 K/mm3 09/06/18 06:42 WBC Morphology Not Reportable 09/06/18 06:42 Hypersegmented Neuts Not Reportable 09/06/18 06:42 Hyposegmented Neuts Not Reportable 09/06/18 06:42 Hypogranular Neuts Not Reportable 09/06/18 06:42 Not Reportable 09/06/18 06:42 Not Reportable 09/06/18 06:42 Not Reportable 09/06/18 06:42 Not Reportable 09/06/18 06:42 Not Reportable 09/06/18 06:42 Not Reportable 09/06/18 06:42 Consistent w auto 09/06/18 06:42 Not Reportable 09/06/18 06:42 Plt Clumps, EDTA Not Reportable 09/06/18 06:42 Not Reportable 09/06/18 06:42 Not Reportable 09/06/18 06:42 Not Reportable 09/06/18 06:42 Plt Morphology Comment Not Reportable 09/06/18 06:42 RBC Morphology Not Reportable 09/06/18 06:42 Dimorphic RBCs Not Reportable 09/06/18 06:42 Not Reportable 09/06/18 06:42 Not Reportable 09/06/18 06:42 Not Reportable 09/06/18 06:42 1+ 09/06/18 06:42 Not Reportable 09/06/18 06:42 1+ 09/06/18 06:42 Not Reportable 09/06/18 06:42 Not Reportable 09/06/18 06:42 Not Reportable 09/06/18 06:42 Not Reportable 09/06/18 06:42 Not Reportable 09/06/18 06:42 Not Reportable 09/06/18 06:42 Not Reportable 09/06/18 06:42 Not Reportable 09/06/18 06:42 Not Reportable 09/06/18 06:42 Not Reportable 09/06/18 06:42 Not Reportable 09/06/18 06:42 Not Reportable 09/06/18 06:42 Not Reportable 09/06/18 06:42 Acanthocytes (Spur) Not Reportable 09/06/18 06:42 Rouleaux Not Reportable 09/06/18 06:42 Not Reportable 09/06/18 06:42 Not Reportable 09/06/18 06:42 Not Reportable 09/06/18 06:42 Not Reportable 09/06/18 06:42 Hem Pathologist Commnt No 09/06/18 06:42 PT 15.6 Sec. (12.2-14.9) H 08/25/18 16:43 INR 1.27 (0.87-1.13) H 08/25/18 16:43 APTT 30.8 Sec. (24.2-36.6) 08/21/18 04:42 1978.25 ng/mlDDU (0-234) H 08/24/18 13:41 POC ABG pH 7.410 (7.35-7.45) 08/30/18 13:35 POC ABG pCO2 41.4 (35-45) 08/30/18 13:35 POC ABG pO2 99 (80-105) 08/30/18 13:35 POC ABG HCO3 26.2 (22-26 mml/L) 08/30/18 13:35 POC ABG Total CO2 27 (23-27mmol/L) 08/30/18 13:35 POC ABG O2 Sat 98 08/30/18 13:35 POC ABG Base Excess 2 ((-2) - (+3)mmol/L) 08/30/18 13:35 30 % 08/30/18 13:35 Sodium 137 mmol/L (137-145) 09/11/18 06:00 Potassium 5.4 mmol/L (3.6-5.0) H 09/11/18 06:00 Chloride 103.1 mmol/L (98-107) 09/11/18 06:00 Carbon Dioxide 25 mmol/L (22-30) 09/11/18 06:00 14 mmol/L 09/11/18 06:00 BUN 30 mg/dL (9-20) H 09/11/18 06:00 1.5 mg/dL (0.8-1.5) 09/11/18 06:00 Estimated GFR 46 ml/min 09/11/18 06:00 20 % 09/11/18 06:00 Glucose 108 mg/dL (75-100) H 09/11/18 06:00 POC Glucose 124 (70-105) H 09/11/18 09:11 317 Mosm/kg 08/31/18 13:54 Lactic Acid 1.30 mmol/L (0.7-2.0) 08/21/18 20:50 9.6 mg/dL (3.5-7.6) H 08/31/18 13:54 Calcium 8.6 mg/dL (8.4-10.2) 09/11/18 06:00 Magnesium 2.00 mg/dL (1.7-2.3) 09/02/18 05:16 0.60 mg/dL (0.1-1.2) 08/28/18 04:49 AST 27 units/L (5-40) 08/28/18 04:49 ALT 12 units/L (7-56) 08/28/18 04:49 87 units/L (35-129) 08/28/18 04:49 222 units/L (55-170) H 08/21/18 10:45 CK-MB (CK-2) 9.2 ng/mL (0.0-4.0) H 08/21/18 10:45 CK-MB (CK-2) Rel Index 4.1 (0-4) H 08/21/18 10:45 0.020 ng/mL (0.00-0.029) 09/08/18 09:06 9.00 mg/dL (0.00-1.30) H 08/24/18 13:41 NT-Pro-B Natriuret Pep > 64819 pg/mL (0-900) H 08/28/18 04:49 5.4 g/dL (6.3-8.2) L 08/28/18 04:49 2.2 g/dL (3.9-5) L 08/28/18 04:49 0.7 % 08/28/18 04:49 Triglycerides 87 mg/dL (2-149) 08/21/18 04:42 Cholesterol 93 mg/dL (50-199) 08/21/18 04:42 44 mg/dL (50-130) L 08/21/18 04:42 41 mg/dL (40-59) 08/21/18 04:42 2.26 % 08/21/18 04:42 Yellow (Yellow) 08/21/18 15:03 Slightly-cloudy (Clear) 08/21/18 15:03 5.0 (5.0-7.0) 08/21/18 15:03 Ur Specific [place] 1.015 (1.003-1.030) 08/21/18 15:03 30 mg/dl mg/dL (Negative) 08/21/18 15:03 Neg mg/dL (Negative) 08/21/18 15:03 Neg mg/dL (Negative) 08/21/18 15:03 Mod (Negative) 08/21/18 15:03 Neg (Negative) 08/21/18 15:03 Neg (Negative) 08/21/18 15:03 < 2.0 mg/dL (<2.0) 08/21/18 15:03 Ur Leukocyte Esterase Tr (Negative) 08/21/18 15:03 13.0 /HPF (0.0-6.0) H 08/21/18 15:03 15.0 /HPF (0.0-6.0) 08/21/18 15:03 U Epithel Cells (Auto) 1.0 /HPF (0-13.0) 08/21/18 15:03 1+ /HPF (Negative) 08/21/18 15:03 Few /HPF 08/21/18 15:03 Random Vancomycin 10.5 ug/mL (0-40.0) 08/26/18 05:53 Levetiracetam 25.7 mcg/mL (12.0-46.0) 08/26/18 13:42 Hepatitis A IgM Ab Non-reactive (NonReactive) 08/27/18 23:25 Hep Bs Antigen Non-reactive (Negative) 08/27/18 23:25 Hep B Core IgM Ab Non-reactive (NonReactive) 08/27/18 23:25 Non-reactive (NonReactive) 08/27/18 23:25 Active Medications - Current Medications Current Medications: Generic Name Dose Route Start Last Admin Trade Name Freq PRN Reason Stop Dose Admin Acetaminophen 650 mg 08/21/18 06:31 09/01/18 21:12 Tylenol PO 650 mg Q4H PRN Administration Pain MILD(1-3)/Fever >100.5/COOK Albuterol/Ipratropium 1 ampul 08/24/18 20:00 09/11/18 07:10 Duoneb *Not For Prn Use* IH 1 ampul BIDRT LUIS Administration Lipase/Protease/Amylase 1 each 08/26/18 12:07 Pancreamaris [place] 10,500 Unit FEEDTUBE PRN PRN For Clogged Feeding Tube Arformoterol Tartrate 15 mcg 08/24/18 20:00 09/11/18 07:09 Brovana Nebu IH 15 mcg Q12HRT LUIS Administration Bisacodyl 10 mg 09/02/18 12:42 Dulcolax [place] QDAY PRN Constipation Budesonide 0.5 mg 08/24/18 20:00 09/11/18 07:10 Pulmicort IH 0.5 mg Q12HRT LUIS Administration Dextrose 50 ml 08/21/18 06:48 D50w (25gm) Syringe IV PRN PRN Hypoglycemia Diphenhydramine HCl 25 mg 09/11/18 06:07 09/11/18 06:14 Benadryl PO 25 mg Q6H PRN Administration Itching Heparin Sodium (Porcine) 5,000 unit 08/22/18 10:00 09/11/18 09:28 Heparin SUB-Q 5,000 unit Q12HR LUIS Administration Hydralazine HCl 50 mg 09/08/18 10:00 09/11/18 09:28 Apresoline PO 50 mg BID LUIS Administration Insulin Human Lispro 0 unit 08/31/18 22:00 09/11/18 09:07 Humalog SUB-Q Not Given ACHS [facility] Protocol Levetiracetam 750 mg 09/04/18 22:00 09/11/18 09:28 Keppra PO 750 mg BID LUIS Administration Metoclopramide HCl 10 mg 09/05/18 18:35 09/10/18 03:02 Reglan IV 10 mg Q6H PRN Administration Nausea And Vomiting Morphine Sulfate 2 mg 08/26/18 14:24 08/30/18 01:40 Morphine IV 2 mg Q6H PRN Administration Pain, Moderate (4-6) Ondansetron HCl 4 mg 08/21/18 06:31 Zofran IV Q8H PRN Nausea And Vomiting Sodium Chloride 10 ml 08/21/18 10:00 09/11/18 09:28 Sodium Chloride Flush Syringe 10 Ml IV 10 ml BID LUIS Administration Zolpidem Tartrate 5 mg 09/09/18 00:19 09/10/18 22:17 Ambien PO 5 mg QHS PRN Administration Sleep Nutrition/Malnutrition Assess - Dietary Evaluation Nutrition/Malnutrition Findings: Nutrition Notes Start: 08/21/18 16:58 Freq: Status: Active Protocol: Document 09/05/18 14:18 TUAN (Rec: 09/05/18 14:30 TUAN [email or web address]) Nutrition Notes Initial or Follow up Reassessment Current Diagnosis Heart Failure Other Pertinent Diagnosis COPD exacerbation, pneu, s/p cardiac arrest Current Diet Cardiac/Consistent CHO with chopped meats + Glucerna daily Labs/Tests Reviewed Pertinent Medications Reviewed Height 5 ft 6 in Weight 146.3 kg [place] Body Weight (kg) 64.54 BMI 52.0 Subjective/Other Information PT has consumed 75% of meals since last assessment. He drinks ONS daily as well. Percent of energy/protein needs met: 97% energy 70% pro (includes ONS) Burn Absent Trauma Absent #1 Nutrition Diagnosis Inadequate oral intake As Evidenced by Signs and Symptoms PO intake meeting >50% energy and pro needs Diagnosis Progress(for reassessment Improved documentation) Is patient on ventilator? No Is Patient Ambulatory and/or Out of Bed No REE-([place]-confined to bed) 2592.060 Kcal/Kg value to use for calculation 12 Approximate Energy Requirements Using 1756 kcal/Kg Additional Notes Pro needs 1-1.2g/kg adjBW: 105-127g/day Fluid needs 1ml/kcal Nutrition Intervention Change Diet Order: Continue current Add Supplement/Snack (indicate name/kcal Glucerna Chocolate, [place] /protein ) 1 daily Provides kCal: 220 Provides Protein (gm) 10 Goal #1 Meet at least 75% of kcal and protein needs via PO intakes Follow-Up By: 09/12/18 Additional Comments F/U: stable intakes, wt
--- NOTE | 2018-09-11 17:02 | Progress Note ---
Assessment and Plan Patient is awake and resting on CPAP with 3 litres O2. O2 saturation is 98%. No acute respiratory distress. Patient is afebrile. No leukocytosis. - Patient Problems (1) COPD (chronic obstructive pulmonary disease) Current Visit: Yes Status: Acute Plan to address problem: CPAP with 3 litres O2. 3 litres O2 when he is not on BIPAP. Albuterol and atrovent aeorosol treatment q6 hours PRN for shortness of breath. Brovanna/ budesonide aeorsol treatment q 12 hours continue subq heparin. Patient is on reglan. (2) Acute on chronic respiratory failure Current Visit: Yes Status: Acute Plan to address problem: CPAP with 3 litres O2. 3 litres O2 when she is on BIPAP. Albuterol and atrovent aeorosol treatment q6 hours PRN for shortness of breath. Brovanna/ budesonide aeorsol treatment q 12 hours continue subq heparin. Patient is on reglan. (3) Acute HFrEF (heart failure with reduced ejection fraction) Current Visit: Yes Status: Resolved Plan to address problem: Management as per cardiology. (4) Acute renal failure Current Visit: Yes Status: Acute Plan to address problem: Management as per Nephrology. (5) Altered mental status Current Visit: Yes Status: Acute Plan to address problem: Management as per primary care and neurology. (6) Bacteremia due to coagulase-negative Staphylococcus Current Visit: Yes Status: Acute Plan to address problem: management as per infectious diseases. (7) Anemia Current Visit: Yes Status: Acute Plan to address problem: Management as per primary care. Subjective Date of service: 09/11/18 Principal diagnosis: s/p cardiac arrest; severe sepsis; acute hypoxemic- hypercapnic resp failure Interval history: Patient is awake and resting on CPAP with 3 litres O2. O2 saturation is 98%. No acute respiratory distress. Patient is afebrile. No leukocytosis. Objective Vital Signs - 12hr 09/11/18 10:00 Pulse Rate 112 H Constitutional: no acute distress, alert Eyes: non-icteric ENT: oropharynx moist, other Neck: supple, no JVD, other (short neck) Effort: mildly labored Ascultation: Bilateral: diminished breath sounds, rhonchi (coarse BS bilaterally) Percussion: Bilateral: not dull Cardiovascular: regular rate and rhythm, other (S1,S2, no murmurs, no gallops or rubs) Gastrointestinal: normoactive bowel sounds, soft, non-tender, non-distended, other (Madison catheter in place, clear urine) Integumentary: normal, other (right femoral HD catheter) Extremities: no cyanosis, no edema, pink and warm, pulses normal, no ischemia or petechiae Neurologic: non-focal exam (grossly), pupils equal and round, motor strength normal and, other (awake and alert, obeying one step commands) Psychiatric: mood appropriate, affect normal CBC and BMP: 09/11/18 06:00 09/11/18 06:00 ABG, PT/INR, D-dimer: ABG POC ABG pH 7.410 (7.35-7.45) 08/30/18 13:35 POC ABG pCO2 41.4 (35-45) 08/30/18 13:35 POC ABG pO2 99 (80-105) 08/30/18 13:35 POC ABG HCO3 26.2 (22-26 mml/L) 08/30/18 13:35 POC ABG Total CO2 27 (23-27mmol/L) 08/30/18 13:35 POC ABG O2 Sat 98 08/30/18 13:35 PT/INR, D-dimer PT 15.6 Sec. (12.2-14.9) H 08/25/18 16:43 INR 1.27 (0.87-1.13) H 08/25/18 16:43 1978.25 ng/mlDDU (0-234) H 08/24/18 13:41 Abnormal lab findings: Abnormal Labs 08/21/18 08/21/18 08/21/18 04:42 04:42 04:42 WBC 19.1 H RBC 2.49 L Hgb 7.7 L Hct 24.5 L MCV 98 H RDW 17.7 H Plt Count Lymph % (Auto) [place] % (Auto) Eos % (Auto) Baso % (Auto) Lymph # Seg Neuts % (Manual) 84.0 H Lymphocytes % (Manual) 7.0 L Monocytes % (Manual) 9.0 H Basophils % (Manual) Nucleated RBC % Seg Neutrophils # Man 16.0 H Lymphocytes # (Manual) Monocytes # (Manual) 1.7 H PT 20.1 H INR 1.76 H D-Dimer POC ABG pH POC ABG pCO2 POC ABG pO2 Sodium Potassium Chloride Carbon Dioxide BUN Creatinine Glucose POC Glucose Lactic Acid Uric Acid Calcium Total Bilirubin AST ALT Total Creatine Kinase CK-MB (CK-2) CK-MB (CK-2) Rel Index Troponin T 0.032 H C-Reactive Protein NT-Pro-B Natriuret Pep Total Protein Albumin LDL Cholesterol Direct 44 L Urine WBC (Auto) 08/21/18 08/21/18 08/21/18 04:42 04:42 04:42 WBC RBC Hgb Hct MCV RDW Plt Count Lymph % (Auto) [place] % (Auto) Eos % (Auto) Baso % (Auto) Lymph # Seg Neuts % (Manual) Lymphocytes % (Manual) Monocytes % (Manual) Basophils % (Manual) Nucleated RBC % Seg Neutrophils # Man Lymphocytes # (Manual) Monocytes # (Manual) PT INR D-Dimer POC ABG pH POC ABG pCO2 POC ABG pO2 Sodium Potassium 6.0 H Chloride Carbon Dioxide 15 L BUN 57 H Creatinine 4.3 H Glucose 111 H POC Glucose Lactic Acid 5.80 H* Uric Acid Calcium Total Bilirubin 1.80 H AST 212 H ALT 94 H Total Creatine Kinase CK-MB (CK-2) CK-MB (CK-2) Rel Index Troponin T C-Reactive Protein NT-Pro-B Natriuret Pep 90621 H Total Protein Albumin 3.2 L LDL Cholesterol Direct Urine WBC (Auto) 08/21/18 08/21/18 08/21/18 05:08 05:58 05:58 WBC RBC Hgb Hct MCV RDW Plt Count Lymph % (Auto) [place] % (Auto) Eos % (Auto) Baso % (Auto) Lymph # Seg Neuts % (Manual) Lymphocytes % (Manual) Monocytes % (Manual) Basophils % (Manual) Nucleated RBC % Seg Neutrophils # Man Lymphocytes # (Manual) Monocytes # (Manual) PT INR D-Dimer POC ABG pH 7.164 L POC ABG pCO2 46.3 H POC ABG pO2 229 H Sodium Potassium Chloride Carbon Dioxide BUN Creatinine Glucose POC Glucose Lactic Acid 5.10 H* Uric Acid Calcium Total Bilirubin AST ALT Total Creatine Kinase CK-MB (CK-2) CK-MB (CK-2) Rel Index Troponin T 0.035 H C-Reactive Protein NT-Pro-B Natriuret Pep Total Protein Albumin LDL Cholesterol Direct Urine WBC (Auto) 08/21/18 08/21/18 08/21/18 06:45 06:45 06:53 WBC RBC Hgb Hct MCV RDW Plt Count Lymph % (Auto) [place] % (Auto) Eos % (Auto) Baso % (Auto) Lymph # Seg Neuts % (Manual) Lymphocytes % (Manual) Monocytes % (Manual) Basophils % (Manual) Nucleated RBC % Seg Neutrophils # Man Lymphocytes # (Manual) Monocytes # (Manual) PT INR D-Dimer POC ABG pH 7.160 L POC ABG pCO2 46.8 H POC ABG pO2 Sodium Potassium Chloride Carbon Dioxide BUN Creatinine Glucose POC Glucose Lactic Acid 4.70 H* Uric Acid Calcium Total Bilirubin AST ALT Total Creatine Kinase 234 H CK-MB (CK-2) 9.1 H CK-MB (CK-2) Rel Index Troponin T 0.032 H C-Reactive Protein NT-Pro-B Natriuret Pep Total Protein Albumin LDL Cholesterol Direct Urine WBC (Auto) 08/21/18 08/21/18 08/21/18 10:43 10:43 10:45 WBC RBC Hgb Hct MCV RDW Plt Count Lymph % (Auto) [place] % (Auto) Eos % (Auto) Baso % (Auto) Lymph # Seg Neuts % (Manual) Lymphocytes % (Manual) Monocytes % (Manual) Basophils % (Manual) Nucleated RBC % Seg Neutrophils # Man Lymphocytes # (Manual) Monocytes # (Manual) PT INR D-Dimer POC ABG pH POC ABG pCO2 POC ABG pO2 Sodium Potassium Chloride Carbon Dioxide 17 L BUN 59 H Creatinine 4.2 H Glucose POC Glucose Lactic Acid 3.70 H* Uric Acid Calcium Total Bilirubin AST ALT Total Creatine Kinase 222 H CK-MB (CK-2) 9.2 H CK-MB (CK-2) Rel Index 4.1 H Troponin T 0.044 H D C-Reactive Protein NT-Pro-B Natriuret Pep Total Protein Albumin LDL Cholesterol Direct Urine WBC (Auto) 08/21/18 08/21/18 08/21/18 11:38 12:33 15:03 WBC RBC Hgb Hct MCV RDW Plt Count Lymph % (Auto) [place] % (Auto) Eos % (Auto) Baso % (Auto) Lymph # Seg Neuts % (Manual) Lymphocytes % (Manual) Monocytes % (Manual) Basophils % (Manual) Nucleated RBC % Seg Neutrophils # Man Lymphocytes # (Manual) Monocytes # (Manual) PT INR D-Dimer POC ABG pH 7.250 L POC ABG pCO2 POC ABG pO2 121 H Sodium Potassium Chloride Carbon Dioxide BUN Creatinine Glucose POC Glucose 129 H Lactic Acid Uric Acid Calcium Total Bilirubin AST ALT Total Creatine Kinase CK-MB (CK-2) CK-MB (CK-2) Rel Index Troponin T C-Reactive Protein NT-Pro-B Natriuret Pep Total Protein Albumin LDL Cholesterol Direct Urine WBC (Auto) 13.0 H 08/21/18 08/22/18 08/22/18 15:47 00:01 04:27 WBC RBC Hgb Hct MCV RDW Plt Count Lymph % (Auto) [place] % (Auto) Eos % (Auto) Baso % (Auto) Lymph # Seg Neuts % (Manual) Lymphocytes % (Manual) Monocytes % (Manual) Basophils % (Manual) Nucleated RBC % Seg Neutrophils # Man Lymphocytes # (Manual) Monocytes # (Manual) PT INR D-Dimer POC ABG pH 7.457 H POC ABG pCO2 POC ABG pO2 117 H Sodium Potassium Chloride Carbon Dioxide BUN Creatinine Glucose POC Glucose 211 H Lactic Acid 2.70 H* Uric Acid Calcium Total Bilirubin AST ALT Total Creatine Kinase CK-MB (CK-2) CK-MB (CK-2) Rel Index Troponin T C-Reactive Protein NT-Pro-B Natriuret Pep Total Protein Albumin LDL Cholesterol Direct Urine WBC (Auto) 08/22/18 08/22/18 08/22/18 05:46 06:10 06:10 WBC RBC 2.27 L Hgb 7.0 L Hct 21.2 L MCV RDW 16.8 H Plt Count 129 L Lymph % (Auto) [place] % (Auto) Eos % (Auto) Baso % (Auto) Lymph # Seg Neuts % (Manual) 95.0 H Lymphocytes % (Manual) 1.0 L Monocytes % (Manual) Basophils % (Manual) Nucleated RBC % 1.0 H Seg Neutrophils # Man 7.8 H Lymphocytes # (Manual) 0.1 L Monocytes # (Manual) PT INR D-Dimer POC ABG pH POC ABG pCO2 POC ABG pO2 Sodium Potassium Chloride Carbon Dioxide 20 L BUN 63 H Creatinine 3.9 H Glucose 205 H POC Glucose 223 H Lactic Acid Uric Acid Calcium Total Bilirubin AST ALT Total Creatine Kinase CK-MB (CK-2) CK-MB (CK-2) Rel Index Troponin T C-Reactive Protein NT-Pro-B Natriuret Pep Total Protein Albumin LDL Cholesterol Direct Urine WBC (Auto) 08/22/18 08/22/18 08/22/18 06:10 12:57 16:21 WBC RBC Hgb Hct MCV RDW Plt Count Lymph % (Auto) [place] % (Auto) Eos % (Auto) Baso % (Auto) Lymph # Seg Neuts % (Manual) Lymphocytes % (Manual) Monocytes % (Manual) Basophils % (Manual) Nucleated RBC % Seg Neutrophils # Man Lymphocytes # (Manual) Monocytes # (Manual) PT INR D-Dimer POC ABG pH 7.477 H POC ABG pCO2 POC ABG pO2 Sodium Potassium Chloride Carbon Dioxide BUN Creatinine Glucose POC Glucose 166 H Lactic Acid Uric Acid Calcium Total Bilirubin AST ALT Total Creatine Kinase CK-MB (CK-2) CK-MB (CK-2) Rel Index Troponin T C-Reactive Protein 23.60 H NT-Pro-B Natriuret Pep Total Protein Albumin LDL Cholesterol Direct Urine WBC (Auto) 08/22/18 08/22/18 08/23/18 17:41 23:42 04:38 WBC RBC Hgb Hct MCV RDW Plt Count Lymph % (Auto) [place] % (Auto) Eos % (Auto) Baso % (Auto) Lymph # Seg Neuts % (Manual) Lymphocytes % (Manual) Monocytes % (Manual) Basophils % (Manual) Nucleated RBC % Seg Neutrophils # Man Lymphocytes # (Manual) Monocytes # (Manual) PT INR D-Dimer POC ABG pH 7.249 L POC ABG pCO2 53.5 H POC ABG pO2 73 L Sodium Potassium Chloride Carbon Dioxide BUN Creatinine Glucose POC Glucose 131 H 168 H Lactic Acid Uric Acid Calcium Total Bilirubin AST ALT Total Creatine Kinase CK-MB (CK-2) CK-MB (CK-2) Rel Index Troponin T C-Reactive Protein NT-Pro-B Natriuret Pep Total Protein Albumin LDL Cholesterol Direct Urine WBC (Auto) 08/23/18 08/23/18 08/23/18 04:52 04:52 04:52 WBC RBC 2.39 L Hgb 7.5 L Hct 22.8 L MCV 95 H RDW 17.6 H Plt Count Lymph % (Auto) [place] % (Auto) Eos % (Auto) Baso % (Auto) Lymph # Seg Neuts % (Manual) Lymphocytes % (Manual) Monocytes % (Manual) Basophils % (Manual) Nucleated RBC % Seg Neutrophils # Man Lymphocytes # (Manual) Monocytes # (Manual) PT INR D-Dimer POC ABG pH POC ABG pCO2 POC ABG pO2 Sodium Potassium 5.6 H 5.6 H Chloride Carbon Dioxide 21 L BUN 71 H 72 H Creatinine 4.1 H 4.0 H Glucose 141 H 140 H POC Glucose Lactic Acid Uric Acid Calcium 8.3 L 8.2 L Total Bilirubin AST 247 H ALT 220 H Total Creatine Kinase CK-MB (CK-2) CK-MB (CK-2) Rel Index Troponin T C-Reactive Protein NT-Pro-B Natriuret Pep Total Protein Albumin 2.8 L LDL Cholesterol Direct Urine WBC (Auto) 08/23/18 08/23/18 08/23/18 05:50 08:38 12:21 WBC RBC Hgb Hct MCV RDW Plt Count Lymph % (Auto) [place] % (Auto) Eos % (Auto) Baso % (Auto) Lymph # Seg Neuts % (Manual) Lymphocytes % (Manual) Monocytes % (Manual) Basophils % (Manual) Nucleated RBC % Seg Neutrophils # Man Lymphocytes # (Manual) Monocytes # (Manual) PT INR D-Dimer POC ABG pH POC ABG pCO2 POC ABG pO2 Sodium Potassium Chloride Carbon Dioxide BUN Creatinine Glucose POC Glucose 160 H 177 H Lactic Acid Uric Acid Calcium Total Bilirubin AST ALT Total Creatine Kinase CK-MB (CK-2) CK-MB (CK-2) Rel Index Troponin T C-Reactive Protein NT-Pro-B Natriuret Pep 77903 H Total Protein Albumin LDL Cholesterol Direct Urine WBC (Auto) 08/23/18 08/23/18 08/23/18 12:36 14:24 18:05 WBC RBC Hgb Hct MCV RDW Plt Count Lymph % (Auto) [place] % (Auto) Eos % (Auto) Baso % (Auto) Lymph # Seg Neuts % (Manual) Lymphocytes % (Manual) Monocytes % (Manual) Basophils % (Manual) Nucleated RBC % Seg Neutrophils # Man Lymphocytes # (Manual) Monocytes # (Manual) PT INR D-Dimer POC ABG pH 7.337 L POC ABG pCO2 POC ABG pO2 145 H Sodium 136 L Potassium 5.2 H Chloride Carbon Dioxide BUN 76 H Creatinine 4.2 H Glucose 158 H POC Glucose 169 H Lactic Acid Uric Acid Calcium 8.1 L Total Bilirubin AST ALT Total Creatine Kinase CK-MB (CK-2) CK-MB (CK-2) Rel Index Troponin T C-Reactive Protein NT-Pro-B Natriuret Pep Total Protein Albumin LDL Cholesterol Direct Urine WBC (Auto) 08/23/18 08/23/18 08/24/18 22:43 23:42 05:16 WBC RBC Hgb Hct MCV RDW Plt Count Lymph % (Auto) [place] % (Auto) Eos % (Auto) Baso % (Auto) Lymph # Seg Neuts % (Manual) Lymphocytes % (Manual) Monocytes % (Manual) Basophils % (Manual) Nucleated RBC % Seg Neutrophils # Man Lymphocytes # (Manual) Monocytes # (Manual) PT INR D-Dimer POC ABG pH POC ABG pCO2 POC ABG pO2 Sodium 136 L Potassium 5.3 H 5.2 H Chloride 97.9 L Carbon Dioxide BUN 80 H 86 H Creatinine 4.0 H 4.3 H Glucose 164 H 202 H POC Glucose 183 H Lactic Acid Uric Acid Calcium 7.9 L Total Bilirubin AST ALT Total Creatine Kinase CK-MB (CK-2) CK-MB (CK-2) Rel Index Troponin T C-Reactive Protein NT-Pro-B Natriuret Pep Total Protein Albumin LDL Cholesterol Direct Urine WBC (Auto) 08/24/18 08/24/18 08/24/18 05:21 05:29 10:10 WBC RBC 2.47 L Hgb 7.5 L Hct 23.3 L MCV RDW 17.5 H Plt Count 118 L Lymph % (Auto) [place] % (Auto) Eos % (Auto) Baso % (Auto) Lymph # Seg Neuts % (Manual) 92.0 H Lymphocytes % (Manual) 2.0 L Monocytes % (Manual) Basophils % (Manual) Nucleated RBC % Seg Neutrophils # Man 8.8 H Lymphocytes # (Manual) 0.2 L Monocytes # (Manual) PT INR D-Dimer POC ABG pH 7.243 L POC ABG pCO2 56.8 H POC ABG pO2 Sodium Potassium Chloride Carbon Dioxide BUN Creatinine Glucose POC Glucose 209 H Lactic Acid Uric Acid Calcium Total Bilirubin AST ALT Total Creatine Kinase CK-MB (CK-2) CK-MB (CK-2) Rel Index Troponin T C-Reactive Protein NT-Pro-B Natriuret Pep Total Protein Albumin LDL Cholesterol Direct Urine WBC (Auto) 06/27/19 06/27/19 06/27/19 10:10 11:19 13:41 WBC RBC Hgb Hct MCV RDW Plt Count Lymph % (Auto) [place] % (Auto) Eos % (Auto) Baso % (Auto) Lymph # Seg Neuts % (Manual) Lymphocytes % (Manual) Monocytes % (Manual) Basophils % (Manual) Nucleated RBC % Seg Neutrophils # Man Lymphocytes # (Manual) Monocytes # (Manual) PT INR D-Dimer 1978.25 H POC ABG pH POC ABG pCO2 POC ABG pO2 Sodium Potassium Chloride Carbon Dioxide BUN Creatinine Glucose POC Glucose 212 H Lactic Acid Uric Acid Calcium Total Bilirubin AST ALT Total Creatine Kinase CK-MB (CK-2) CK-MB (CK-2) Rel Index Troponin T C-Reactive Protein NT-Pro-B Natriuret Pep 05118 H Total Protein Albumin LDL Cholesterol Direct Urine WBC (Auto) 08/24/18 08/24/18 08/24/18 13:41 14:27 17:23 WBC RBC Hgb Hct MCV RDW Plt Count Lymph % (Auto) [place] % (Auto) Eos % (Auto) Baso % (Auto) Lymph # Seg Neuts % (Manual) Lymphocytes % (Manual) Monocytes % (Manual) Basophils % (Manual) Nucleated RBC % Seg Neutrophils # Man Lymphocytes # (Manual) Monocytes # (Manual) PT INR D-Dimer POC ABG pH POC ABG pCO2 POC ABG pO2 Sodium 136 L Potassium 5.1 H Chloride 97.8 L Carbon Dioxide BUN 90 H Creatinine 4.1 H Glucose 157 H POC Glucose 155 H Lactic Acid Uric Acid Calcium 8.0 L Total Bilirubin AST ALT Total Creatine Kinase CK-MB (CK-2) CK-MB (CK-2) Rel Index Troponin T C-Reactive Protein 9.00 H NT-Pro-B Natriuret Pep Total Protein Albumin LDL Cholesterol Direct Urine WBC (Auto) 08/25/18 08/25/18 08/25/18 00:38 05:22 05:57 WBC RBC Hgb Hct MCV RDW Plt Count Lymph % (Auto) [place] % (Auto) Eos % (Auto) Baso % (Auto) Lymph # Seg Neuts % (Manual) Lymphocytes % (Manual) Monocytes % (Manual) Basophils % (Manual) Nucleated RBC % Seg Neutrophils # Man Lymphocytes # (Manual) Monocytes # (Manual) PT INR D-Dimer POC ABG pH 7.238 L POC ABG pCO2 58.2 H POC ABG pO2 Sodium Potassium 5.4 H Chloride Carbon Dioxide BUN 98 H Creatinine 4.3 H Glucose 217 H POC Glucose 176 H Lactic Acid Uric Acid Calcium 8.3 L Total Bilirubin AST ALT Total Creatine Kinase CK-MB (CK-2) CK-MB (CK-2) Rel Index Troponin T C-Reactive Protein NT-Pro-B Natriuret Pep 98729 H Total Protein Albumin LDL Cholesterol Direct Urine WBC (Auto) 08/25/18 08/25/18 08/25/18 06:56 08:59 11:38 WBC RBC Hgb Hct MCV RDW Plt Count Lymph % (Auto) [place] % (Auto) Eos % (Auto) Baso % (Auto) Lymph # Seg Neuts % (Manual) Lymphocytes % (Manual) Monocytes % (Manual) Basophils % (Manual) Nucleated RBC % Seg Neutrophils # Man Lymphocytes # (Manual) Monocytes # (Manual) PT INR D-Dimer POC ABG pH 7.348 L POC ABG pCO2 48.6 H POC ABG pO2 Sodium Potassium Chloride Carbon Dioxide BUN Creatinine Glucose POC Glucose 247 H 235 H Lactic Acid Uric Acid Calcium Total Bilirubin AST ALT Total Creatine Kinase CK-MB (CK-2) CK-MB (CK-2) Rel Index Troponin T C-Reactive Protein NT-Pro-B Natriuret Pep Total Protein Albumin LDL Cholesterol Direct Urine WBC (Auto) 08/25/18 08/25/18 08/25/18 12:29 16:43 16:43 WBC 14.7 H RBC 2.90 L Hgb 8.9 L Hct 27.4 L MCV 95 H RDW 17.3 H Plt Count 119 L Lymph % (Auto) [place] % (Auto) Eos % (Auto) Baso % (Auto) Lymph # Seg Neuts % (Manual) 94.0 H Lymphocytes % (Manual) 2.0 L Monocytes % (Manual) Basophils % (Manual) Nucleated RBC % Seg Neutrophils # Man 13.8 H Lymphocytes # (Manual) 0.3 L Monocytes # (Manual) PT 15.6 H INR 1.27 H D-Dimer POC ABG pH POC ABG pCO2 POC ABG pO2 Sodium Potassium Chloride Carbon Dioxide BUN Creatinine Glucose POC Glucose 237 H Lactic Acid Uric Acid Calcium Total Bilirubin AST ALT Total Creatine Kinase CK-MB (CK-2) CK-MB (CK-2) Rel Index Troponin T C-Reactive Protein NT-Pro-B Natriuret Pep Total Protein Albumin LDL Cholesterol Direct Urine WBC (Auto) 08/25/18 08/26/18 08/26/18 17:22 00:16 04:56 WBC RBC Hgb Hct MCV RDW Plt Count Lymph % (Auto) [place] % (Auto) Eos % (Auto) Baso % (Auto) Lymph # Seg Neuts % (Manual) Lymphocytes % (Manual) Monocytes % (Manual) Basophils % (Manual) Nucleated RBC % Seg Neutrophils # Man Lymphocytes # (Manual) Monocytes # (Manual) PT INR D-Dimer POC ABG pH POC ABG pCO2 45.2 H POC ABG pO2 Sodium Potassium Chloride Carbon Dioxide BUN Creatinine Glucose POC Glucose 200 H 180 H Lactic Acid Uric Acid Calcium Total Bilirubin AST ALT Total Creatine Kinase CK-MB (CK-2) CK-MB (CK-2) Rel Index Troponin T C-Reactive Protein NT-Pro-B Natriuret Pep Total Protein Albumin LDL Cholesterol Direct Urine WBC (Auto) 08/26/18 08/26/18 08/26/18 05:53 06:20 08:48 WBC RBC Hgb Hct MCV RDW Plt Count Lymph % (Auto) [place] % (Auto) Eos % (Auto) Baso % (Auto) Lymph # Seg Neuts % (Manual) Lymphocytes % (Manual) Monocytes % (Manual) Basophils % (Manual) Nucleated RBC % Seg Neutrophils # Man Lymphocytes # (Manual) Monocytes # (Manual) PT INR D-Dimer POC ABG pH POC ABG pCO2 POC ABG pO2 Sodium Potassium Chloride Carbon Dioxide BUN 106 H Creatinine 3.9 H Glucose 137 H POC Glucose 131 H 126 H Lactic Acid Uric Acid Calcium 8.1 L Total Bilirubin AST ALT Total Creatine Kinase CK-MB (CK-2) CK-MB (CK-2) Rel Index Troponin T C-Reactive Protein NT-Pro-B Natriuret Pep > 93661 H Total Protein Albumin LDL Cholesterol Direct Urine WBC (Auto) 08/26/18 08/26/18 08/26/18 11:39 17:33 18:02 WBC RBC Hgb Hct MCV RDW Plt Count Lymph % (Auto) [place] % (Auto) Eos % (Auto) Baso % (Auto) Lymph # Seg Neuts % (Manual) Lymphocytes % (Manual) Monocytes % (Manual) Basophils % (Manual) Nucleated RBC % Seg Neutrophils # Man Lymphocytes # (Manual) Monocytes # (Manual) PT INR D-Dimer POC ABG pH POC ABG pCO2 POC ABG pO2 58 L Sodium Potassium Chloride Carbon Dioxide BUN Creatinine Glucose POC Glucose 156 H 173 H Lactic Acid Uric Acid Calcium Total Bilirubin AST ALT Total Creatine Kinase CK-MB (CK-2) CK-MB (CK-2) Rel Index Troponin T C-Reactive Protein NT-Pro-B Natriuret Pep Total Protein Albumin LDL Cholesterol Direct Urine WBC (Auto) 08/26/18 08/27/18 08/27/18 23:12 04:59 11:51 WBC RBC Hgb Hct MCV RDW Plt Count Lymph % (Auto) [place] % (Auto) Eos % (Auto) Baso % (Auto) Lymph # Seg Neuts % (Manual) Lymphocytes % (Manual) Monocytes % (Manual) Basophils % (Manual) Nucleated RBC % Seg Neutrophils # Man Lymphocytes # (Manual) Monocytes # (Manual) PT INR D-Dimer POC ABG pH 7.563 H POC ABG pCO2 < 30 L POC ABG pO2 69 L Sodium Potassium Chloride Carbon Dioxide BUN Creatinine Glucose POC Glucose 130 H 107 H Lactic Acid Uric Acid Calcium Total Bilirubin AST ALT Total Creatine Kinase CK-MB (CK-2) CK-MB (CK-2) Rel Index Troponin T C-Reactive Protein NT-Pro-B Natriuret Pep Total Protein Albumin LDL Cholesterol Direct Urine WBC (Auto) 08/27/18 08/27/18 08/27/18 11:58 11:58 11:58 WBC RBC 2.66 L Hgb 8.1 L Hct 24.7 L MCV RDW 16.7 H Plt Count Lymph % (Auto) [place] % (Auto) Eos % (Auto) Baso % (Auto) Lymph # Seg Neuts % (Manual) Lymphocytes % (Manual) Monocytes % (Manual) Basophils % (Manual) Nucleated RBC % Seg Neutrophils # Man Lymphocytes # (Manual) Monocytes # (Manual) PT INR D-Dimer POC ABG pH POC ABG pCO2 POC ABG pO2 Sodium Potassium Chloride Carbon Dioxide BUN 71 H Creatinine 2.9 H Glucose POC Glucose Lactic Acid Uric Acid Calcium 7.6 L Total Bilirubin AST ALT Total Creatine Kinase CK-MB (CK-2) CK-MB (CK-2) Rel Index Troponin T C-Reactive Protein NT-Pro-B Natriuret Pep > 16986 H Total Protein 6.1 L Albumin 2.4 L LDL Cholesterol Direct Urine WBC (Auto) 08/28/18 08/28/18 08/28/18 04:38 04:49 04:49 WBC RBC 2.65 L Hgb 8.3 L Hct 25.3 L MCV 96 H RDW 17.3 H Plt Count 83 L Lymph % (Auto) [place] % (Auto) Eos % (Auto) Baso % (Auto) Lymph # Seg Neuts % (Manual) Lymphocytes % (Manual) Monocytes % (Manual) Basophils % (Manual) Nucleated RBC % Seg Neutrophils # Man Lymphocytes # (Manual) Monocytes # (Manual) PT INR D-Dimer POC ABG pH POC ABG pCO2 POC ABG pO2 112 H Sodium Potassium Chloride Carbon Dioxide BUN Creatinine Glucose POC Glucose Lactic Acid Uric Acid Calcium Total Bilirubin AST ALT Total Creatine Kinase CK-MB (CK-2) CK-MB (CK-2) Rel Index Troponin T C-Reactive Protein NT-Pro-B Natriuret Pep > 60898 H Total Protein Albumin LDL Cholesterol Direct Urine WBC (Auto) 08/28/18 08/28/18 08/29/18 04:49 14:24 00:11 WBC RBC Hgb Hct MCV RDW Plt Count Lymph % (Auto) [place] % (Auto) Eos % (Auto) Baso % (Auto) Lymph # Seg Neuts % (Manual) Lymphocytes % (Manual) Monocytes % (Manual) Basophils % (Manual) Nucleated RBC % Seg Neutrophils # Man Lymphocytes # (Manual) Monocytes # (Manual) PT INR D-Dimer POC ABG pH 7.278 L POC ABG pCO2 57.9 H POC ABG pO2 79 L Sodium Potassium Chloride Carbon Dioxide BUN 69 H Creatinine 2.4 H Glucose POC Glucose 171 H Lactic Acid Uric Acid Calcium 7.7 L Total Bilirubin AST ALT Total Creatine Kinase CK-MB (CK-2) CK-MB (CK-2) Rel Index Troponin T C-Reactive Protein NT-Pro-B Natriuret Pep Total Protein 5.4 L Albumin 2.2 L LDL Cholesterol Direct Urine WBC (Auto) 08/29/18 08/29/18 08/29/18 04:39 05:35 05:35 WBC 13.6 H RBC 3.09 L Hgb 9.4 L Hct 29.5 L MCV 96 H RDW 17.9 H Plt Count 127 L Lymph % (Auto) [place] % (Auto) Eos % (Auto) Baso % (Auto) Lymph # Seg Neuts % (Manual) Lymphocytes % (Manual) Monocytes % (Manual) Basophils % (Manual) Nucleated RBC % Seg Neutrophils # Man Lymphocytes # (Manual) Monocytes # (Manual) PT INR D-Dimer POC ABG pH 7.312 L POC ABG pCO2 57.6 H POC ABG pO2 79 L Sodium Potassium Chloride Carbon Dioxide BUN 42 H Creatinine 1.9 H Glucose 107 H POC Glucose Lactic Acid Uric Acid Calcium Total Bilirubin AST ALT Total Creatine Kinase CK-MB (CK-2) CK-MB (CK-2) Rel Index Troponin T C-Reactive Protein NT-Pro-B Natriuret Pep Total Protein Albumin LDL Cholesterol Direct Urine WBC (Auto) 08/29/18 08/29/18 08/29/18 05:48 11:37 15:32 WBC RBC Hgb Hct MCV RDW Plt Count Lymph % (Auto) [place] % (Auto) Eos % (Auto) Baso % (Auto) Lymph # Seg Neuts % (Manual) Lymphocytes % (Manual) Monocytes % (Manual) Basophils % (Manual) Nucleated RBC % Seg Neutrophils # Man Lymphocytes # (Manual) Monocytes # (Manual) PT INR D-Dimer POC ABG pH POC ABG pCO2 47.0 H POC ABG pO2 78 L Sodium Potassium Chloride Carbon Dioxide BUN Creatinine Glucose POC Glucose 114 H 116 H Lactic Acid Uric Acid Calcium Total Bilirubin AST ALT Total Creatine Kinase CK-MB (CK-2) CK-MB (CK-2) Rel Index Troponin T C-Reactive Protein NT-Pro-B Natriuret Pep Total Protein Albumin LDL Cholesterol Direct Urine WBC (Auto) 08/29/18 08/30/18 08/30/18 17:28 00:17 04:41 WBC RBC Hgb Hct MCV RDW Plt Count Lymph % (Auto) [place] % (Auto) Eos % (Auto) Baso % (Auto) Lymph # Seg Neuts % (Manual) Lymphocytes % (Manual) Monocytes % (Manual) Basophils % (Manual) Nucleated RBC % Seg Neutrophils # Man Lymphocytes # (Manual) Monocytes # (Manual) PT INR D-Dimer POC ABG pH POC ABG pCO2 48.1 H POC ABG pO2 Sodium Potassium Chloride Carbon Dioxide BUN Creatinine Glucose POC Glucose 174 H 132 H Lactic Acid Uric Acid Calcium Total Bilirubin AST ALT Total Creatine Kinase CK-MB (CK-2) CK-MB (CK-2) Rel Index Troponin T C-Reactive Protein NT-Pro-B Natriuret Pep Total Protein Albumin LDL Cholesterol Direct Urine WBC (Auto) 08/30/18 08/30/18 08/30/18 05:17 05:34 06:10 WBC RBC 2.68 L Hgb 8.2 L Hct 25.6 L MCV 96 H RDW 17.2 H Plt Count 118 L Lymph % (Auto) [place] % (Auto) Eos % (Auto) Baso % (Auto) Lymph # Seg Neuts % (Manual) Lymphocytes % (Manual) Monocytes % (Manual) Basophils % (Manual) Nucleated RBC % Seg Neutrophils # Man Lymphocytes # (Manual) Monocytes # (Manual) PT INR D-Dimer POC ABG pH POC ABG pCO2 POC ABG pO2 Sodium Potassium Chloride Carbon Dioxide BUN 54 H Creatinine 2.4 H Glucose 120 H POC Glucose 141 H Lactic Acid Uric Acid Calcium Total Bilirubin AST ALT Total Creatine Kinase CK-MB (CK-2) CK-MB (CK-2) Rel Index Troponin T C-Reactive Protein NT-Pro-B Natriuret Pep Total Protein Albumin LDL Cholesterol Direct Urine WBC (Auto) 08/30/18 08/30/18 08/30/18 13:11 18:11 23:55 WBC RBC Hgb Hct MCV RDW Plt Count Lymph % (Auto) [place] % (Auto) Eos % (Auto) Baso % (Auto) Lymph # Seg Neuts % (Manual) Lymphocytes % (Manual) Monocytes % (Manual) Basophils % (Manual) Nucleated RBC % Seg Neutrophils # Man Lymphocytes # (Manual) Monocytes # (Manual) PT INR D-Dimer POC ABG pH POC ABG pCO2 POC ABG pO2 Sodium Potassium Chloride Carbon Dioxide BUN Creatinine Glucose POC Glucose 167 H 144 H 144 H Lactic Acid Uric Acid Calcium Total Bilirubin AST ALT Total Creatine Kinase CK-MB (CK-2) CK-MB (CK-2) Rel Index Troponin T C-Reactive Protein NT-Pro-B Natriuret Pep Total Protein Albumin LDL Cholesterol Direct Urine WBC (Auto) 08/31/18 08/31/18 08/31/18 05:07 05:07 05:44 WBC RBC 2.62 L Hgb 8.1 L Hct 25.0 L MCV 96 H RDW 17.5 H Plt Count 128 L Lymph % (Auto) [place] % (Auto) Eos % (Auto) Baso % (Auto) Lymph # Seg Neuts % (Manual) Lymphocytes % (Manual) Monocytes % (Manual) Basophils % (Manual) Nucleated RBC % Seg Neutrophils # Man Lymphocytes # (Manual) Monocytes # (Manual) PT INR D-Dimer POC ABG pH POC ABG pCO2 POC ABG pO2 Sodium Potassium Chloride Carbon Dioxide BUN 58 H Creatinine 2.3 H Glucose 103 H POC Glucose 109 H Lactic Acid Uric Acid Calcium Total Bilirubin AST ALT Total Creatine Kinase CK-MB (CK-2) CK-MB (CK-2) Rel Index Troponin T C-Reactive Protein NT-Pro-B Natriuret Pep Total Protein Albumin LDL Cholesterol Direct Urine WBC (Auto) 08/31/18 08/31/18 08/31/18 11:26 13:54 19:05 WBC RBC Hgb Hct MCV RDW Plt Count Lymph % (Auto) [place] % (Auto) Eos % (Auto) Baso % (Auto) Lymph # Seg Neuts % (Manual) Lymphocytes % (Manual) Monocytes % (Manual) Basophils % (Manual) Nucleated RBC % Seg Neutrophils # Man Lymphocytes # (Manual) Monocytes # (Manual) PT INR D-Dimer POC ABG pH POC ABG pCO2 POC ABG pO2 Sodium Potassium Chloride Carbon Dioxide BUN Creatinine Glucose POC Glucose 117 H 186 H Lactic Acid Uric Acid 9.6 H Calcium Total Bilirubin AST ALT Total Creatine Kinase CK-MB (CK-2) CK-MB (CK-2) Rel Index Troponin T C-Reactive Protein NT-Pro-B Natriuret Pep Total Protein Albumin LDL Cholesterol Direct Urine WBC (Auto) 08/31/18 09/01/18 09/01/18 23:50 06:27 09:21 WBC RBC 2.74 L Hgb 8.6 L Hct 25.8 L MCV RDW 17.3 H Plt Count Lymph % (Auto) [place] % (Auto) Eos % (Auto) Baso % (Auto) Lymph # Seg Neuts % (Manual) Lymphocytes % (Manual) Monocytes % (Manual) Basophils % (Manual) Nucleated RBC % Seg Neutrophils # Man Lymphocytes # (Manual) Monocytes # (Manual) PT INR D-Dimer POC ABG pH POC ABG pCO2 POC ABG pO2 Sodium Potassium Chloride Carbon Dioxide BUN Creatinine Glucose POC Glucose 141 H 62 L Lactic Acid Uric Acid Calcium Total Bilirubin AST ALT Total Creatine Kinase CK-MB (CK-2) CK-MB (CK-2) Rel Index Troponin T C-Reactive Protein NT-Pro-B Natriuret Pep Total Protein Albumin LDL Cholesterol Direct Urine WBC (Auto) 09/01/18 09/01/18 09/01/18 09:21 12:27 17:51 WBC RBC Hgb Hct MCV RDW Plt Count Lymph % (Auto) [place] % (Auto) Eos % (Auto) Baso % (Auto) Lymph # Seg Neuts % (Manual) Lymphocytes % (Manual) Monocytes % (Manual) Basophils % (Manual) Nucleated RBC % Seg Neutrophils # Man Lymphocytes # (Manual) Monocytes # (Manual) PT INR D-Dimer POC ABG pH POC ABG pCO2 POC ABG pO2 Sodium Potassium 3.0 L D Chloride 109.8 H Carbon Dioxide BUN 45 H Creatinine 1.7 H Glucose POC Glucose 106 H 108 H Lactic Acid Uric Acid Calcium 7.1 L D Total Bilirubin AST ALT Total Creatine Kinase CK-MB (CK-2) CK-MB (CK-2) Rel Index Troponin T C-Reactive Protein NT-Pro-B Natriuret Pep Total Protein Albumin LDL Cholesterol Direct Urine WBC (Auto) 09/02/18 09/02/18 09/02/18 05:16 05:16 12:01 WBC RBC 2.60 L Hgb 8.1 L Hct 24.8 L MCV 95 H RDW 17.1 H Plt Count Lymph % (Auto) [place] % (Auto) Eos % (Auto) Baso % (Auto) Lymph # Seg Neuts % (Manual) Lymphocytes % (Manual) Monocytes % (Manual) Basophils % (Manual) Nucleated RBC % Seg Neutrophils # Man Lymphocytes # (Manual) Monocytes # (Manual) PT INR D-Dimer POC ABG pH POC ABG pCO2 POC ABG pO2 Sodium Potassium Chloride Carbon Dioxide BUN 49 H Creatinine 1.8 H Glucose 107 H POC Glucose 124 H Lactic Acid Uric Acid Calcium 8.1 L Total Bilirubin AST ALT Total Creatine Kinase CK-MB (CK-2) CK-MB (CK-2) Rel Index Troponin T C-Reactive Protein NT-Pro-B Natriuret Pep Total Protein Albumin LDL Cholesterol Direct Urine WBC (Auto) 09/02/18 09/02/18 09/03/18 18:38 23:12 08:22 WBC RBC Hgb Hct MCV RDW Plt Count Lymph % (Auto) [place] % (Auto) Eos % (Auto) Baso % (Auto) Lymph # Seg Neuts % (Manual) Lymphocytes % (Manual) Monocytes % (Manual) Basophils % (Manual) Nucleated RBC % Seg Neutrophils # Man Lymphocytes # (Manual) Monocytes # (Manual) PT INR D-Dimer POC ABG pH POC ABG pCO2 POC ABG pO2 Sodium Potassium Chloride Carbon Dioxide BUN Creatinine Glucose POC Glucose 164 H 128 H 115 H Lactic Acid Uric Acid Calcium Total Bilirubin AST ALT Total Creatine Kinase CK-MB (CK-2) CK-MB (CK-2) Rel Index Troponin T C-Reactive Protein NT-Pro-B Natriuret Pep Total Protein Albumin LDL Cholesterol Direct Urine WBC (Auto) 09/03/18 09/03/18 09/03/18 11:48 16:37 20:48 WBC RBC Hgb Hct MCV RDW Plt Count Lymph % (Auto) [place] % (Auto) Eos % (Auto) Baso % (Auto) Lymph # Seg Neuts % (Manual) Lymphocytes % (Manual) Monocytes % (Manual) Basophils % (Manual) Nucleated RBC % Seg Neutrophils # Man Lymphocytes # (Manual) Monocytes # (Manual) PT INR D-Dimer POC ABG pH POC ABG pCO2 POC ABG pO2 Sodium Potassium Chloride Carbon Dioxide BUN Creatinine Glucose POC Glucose 203 H 146 H 150 H Lactic Acid Uric Acid Calcium Total Bilirubin AST ALT Total Creatine Kinase CK-MB (CK-2) CK-MB (CK-2) Rel Index Troponin T C-Reactive Protein NT-Pro-B Natriuret Pep Total Protein Albumin LDL Cholesterol Direct Urine WBC (Auto) 09/04/18 09/04/18 09/04/18 08:29 12:08 13:32 WBC RBC Hgb Hct MCV RDW Plt Count Lymph % (Auto) [place] % (Auto) Eos % (Auto) Baso % (Auto) Lymph # Seg Neuts % (Manual) Lymphocytes % (Manual) Monocytes % (Manual) Basophils % (Manual) Nucleated RBC % Seg Neutrophils # Man Lymphocytes # (Manual) Monocytes # (Manual) PT INR D-Dimer POC ABG pH POC ABG pCO2 POC ABG pO2 Sodium 136 L Potassium Chloride Carbon Dioxide BUN 42 H Creatinine 1.6 H Glucose 180 H POC Glucose 129 H 149 H Lactic Acid Uric Acid Calcium Total Bilirubin AST ALT Total Creatine Kinase CK-MB (CK-2) CK-MB (CK-2) Rel Index Troponin T C-Reactive Protein NT-Pro-B Natriuret Pep Total Protein Albumin LDL Cholesterol Direct Urine WBC (Auto) 09/04/18 09/05/18 09/05/18 16:33 07:03 07:03 WBC RBC 2.92 L Hgb 9.1 L Hct 27.4 L MCV RDW 17.3 H Plt Count Lymph % (Auto) [place] % (Auto) Eos % (Auto) Baso % (Auto) Lymph # Seg Neuts % (Manual) 81.0 H Lymphocytes % (Manual) 7.0 L Monocytes % (Manual) 8.0 H Basophils % (Manual) Nucleated RBC % Seg Neutrophils # Man Lymphocytes # (Manual) 0.5 L Monocytes # (Manual) PT INR D-Dimer POC ABG pH POC ABG pCO2 POC ABG pO2 Sodium Potassium Chloride Carbon Dioxide BUN 40 H Creatinine Glucose 153 H POC Glucose 165 H Lactic Acid Uric Acid Calcium Total Bilirubin AST ALT Total Creatine Kinase CK-MB (CK-2) CK-MB (CK-2) Rel Index Troponin T C-Reactive Protein NT-Pro-B Natriuret Pep Total Protein Albumin LDL Cholesterol Direct Urine WBC (Auto) 09/05/18 09/05/18 09/05/18 08:00 11:51 21:20 WBC RBC Hgb Hct MCV RDW Plt Count Lymph % (Auto) [place] % (Auto) Eos % (Auto) Baso % (Auto) Lymph # Seg Neuts % (Manual) Lymphocytes % (Manual) Monocytes % (Manual) Basophils % (Manual) Nucleated RBC % Seg Neutrophils # Man Lymphocytes # (Manual) Monocytes # (Manual) PT INR D-Dimer POC ABG pH POC ABG pCO2 POC ABG pO2 Sodium Potassium Chloride Carbon Dioxide BUN Creatinine Glucose POC Glucose 146 H 207 H 114 H Lactic Acid Uric Acid Calcium Total Bilirubin AST ALT Total Creatine Kinase CK-MB (CK-2) CK-MB (CK-2) Rel Index Troponin T C-Reactive Protein NT-Pro-B Natriuret Pep Total Protein Albumin LDL Cholesterol Direct Urine WBC (Auto) 09/06/18 09/06/18 09/06/18 06:42 06:42 11:38 WBC RBC 2.90 L Hgb 9.0 L Hct 27.0 L MCV RDW 17.4 H Plt Count 130 L Lymph % (Auto) [place] % (Auto) Eos % (Auto) Baso % (Auto) Lymph # Seg Neuts % (Manual) 79.0 H Lymphocytes % (Manual) 6.0 L Monocytes % (Manual) 12.0 H Basophils % (Manual) 2.0 H Nucleated RBC % Seg Neutrophils # Man Lymphocytes # (Manual) 0.3 L Monocytes # (Manual) PT INR D-Dimer POC ABG pH POC ABG pCO2 POC ABG pO2 Sodium 136 L Potassium Chloride Carbon Dioxide BUN 39 H Creatinine Glucose 106 H POC Glucose 265 H Lactic Acid Uric Acid Calcium Total Bilirubin AST ALT Total Creatine Kinase CK-MB (CK-2) CK-MB (CK-2) Rel Index Troponin T C-Reactive Protein NT-Pro-B Natriuret Pep Total Protein Albumin LDL Cholesterol Direct Urine WBC (Auto) 09/06/18 09/06/18 09/07/18 16:37 20:55 05:12 WBC RBC 2.80 L Hgb 8.7 L Hct 26.5 L MCV 95 H RDW 17.7 H Plt Count Lymph % (Auto) 13.3 L [place] % (Auto) 14.2 H Eos % (Auto) Baso % (Auto) 1.9 H Lymph # 0.7 L Seg Neuts % (Manual) Lymphocytes % (Manual) Monocytes % (Manual) Basophils % (Manual) Nucleated RBC % Seg Neutrophils # Man Lymphocytes # (Manual) Monocytes # (Manual) PT INR D-Dimer POC ABG pH POC ABG pCO2 POC ABG pO2 Sodium Potassium Chloride Carbon Dioxide BUN Creatinine Glucose POC Glucose 131 H 135 H Lactic Acid Uric Acid Calcium Total Bilirubin AST ALT Total Creatine Kinase CK-MB (CK-2) CK-MB (CK-2) Rel Index Troponin T C-Reactive Protein NT-Pro-B Natriuret Pep Total Protein Albumin LDL Cholesterol Direct Urine WBC (Auto) 09/07/18 09/07/18 09/07/18 05:12 11:28 15:32 WBC RBC Hgb Hct MCV RDW Plt Count Lymph % (Auto) [place] % (Auto) Eos % (Auto) Baso % (Auto) Lymph # Seg Neuts % (Manual) Lymphocytes % (Manual) Monocytes % (Manual) Basophils % (Manual) Nucleated RBC % Seg Neutrophils # Man Lymphocytes # (Manual) Monocytes # (Manual) PT INR D-Dimer POC ABG pH POC ABG pCO2 POC ABG pO2 Sodium Potassium Chloride Carbon Dioxide BUN 36 H Creatinine Glucose POC Glucose 176 H 131 H Lactic Acid Uric Acid Calcium Total Bilirubin AST ALT Total Creatine Kinase CK-MB (CK-2) CK-MB (CK-2) Rel Index Troponin T C-Reactive Protein NT-Pro-B Natriuret Pep Total Protein Albumin LDL Cholesterol Direct Urine WBC (Auto) 09/07/18 09/08/1809/08/19 21:50 05:23 05:23 WBC RBC 2.72 L Hgb 8.5 L Hct 26.9 L MCV 99 H RDW 18.0 H Plt Count 136 L Lymph % (Auto) 13.1 L [place] % (Auto) 15.7 H Eos % (Auto) Baso % (Auto) 1.9 H Lymph # 0.7 L Seg Neuts % (Manual) Lymphocytes % (Manual) Monocytes % (Manual) Basophils % (Manual) Nucleated RBC % Seg Neutrophils # Man Lymphocytes # (Manual) Monocytes # (Manual) PT INR D-Dimer POC ABG pH POC ABG pCO2 POC ABG pO2 Sodium 134 L Potassium 5.2 H Chloride Carbon Dioxide BUN 36 H Creatinine Glucose POC Glucose 160 H Lactic Acid Uric Acid Calcium Total Bilirubin AST ALT Total Creatine Kinase CK-MB (CK-2) CK-MB (CK-2) Rel Index Troponin T C-Reactive Protein NT-Pro-B Natriuret Pep Total Protein Albumin LDL Cholesterol Direct Urine WBC (Auto) 09/08/18 09/08/18 09/09/18 12:33 16:57 05:52 WBC RBC 2.64 L Hgb 8.1 L Hct 25.2 L MCV 95 H RDW 17.8 H Plt Count Lymph % (Auto) [place] % (Auto) 14.3 H Eos % (Auto) Baso % (Auto) 1.9 H Lymph # 0.6 L Seg Neuts % (Manual) Lymphocytes % (Manual) Monocytes % (Manual) Basophils % (Manual) Nucleated RBC % Seg Neutrophils # Man Lymphocytes # (Manual) Monocytes # (Manual) PT INR D-Dimer POC ABG pH POC ABG pCO2 POC ABG pO2 Sodium Potassium Chloride Carbon Dioxide BUN Creatinine Glucose POC Glucose 198 H 195 H Lactic Acid Uric Acid Calcium Total Bilirubin AST ALT Total Creatine Kinase CK-MB (CK-2) CK-MB (CK-2) Rel Index Troponin T C-Reactive Protein NT-Pro-B Natriuret Pep Total Protein Albumin LDL Cholesterol Direct Urine WBC (Auto) 09/09/18 09/09/18 09/09/18 05:52 11:50 16:28 WBC RBC Hgb Hct MCV RDW Plt Count Lymph % (Auto) [place] % (Auto) Eos % (Auto) Baso % (Auto) Lymph # Seg Neuts % (Manual) Lymphocytes % (Manual) Monocytes % (Manual) Basophils % (Manual) Nucleated RBC % Seg Neutrophils # Man Lymphocytes # (Manual) Monocytes # (Manual) PT INR D-Dimer POC ABG pH POC ABG pCO2 POC ABG pO2 Sodium 136 L Potassium Chloride Carbon Dioxide BUN 34 H Creatinine Glucose POC Glucose 122 H 170 H Lactic Acid Uric Acid Calcium 8.1 L Total Bilirubin AST ALT Total Creatine Kinase CK-MB (CK-2) CK-MB (CK-2) Rel Index Troponin T C-Reactive Protein NT-Pro-B Natriuret Pep Total Protein Albumin LDL Cholesterol Direct Urine WBC (Auto) 09/09/18 09/10/18 09/10/18 22:02 05:09 05:09 WBC 3.9 L RBC 2.63 L Hgb 8.2 L Hct 25.0 L MCV 95 H RDW 17.4 H Plt Count Lymph % (Auto) [place] % (Auto) 15.9 H Eos % (Auto) Baso % (Auto) 2.0 H Lymph # 0.6 L Seg Neuts % (Manual) Lymphocytes % (Manual) Monocytes % (Manual) Basophils % (Manual) Nucleated RBC % Seg Neutrophils # Man Lymphocytes # (Manual) Monocytes # (Manual) PT INR D-Dimer POC ABG pH POC ABG pCO2 POC ABG pO2 Sodium Potassium 5.1 H Chloride Carbon Dioxide BUN 31 H Creatinine Glucose 106 H POC Glucose 144 H Lactic Acid Uric Acid Calcium 8.3 L Total Bilirubin AST ALT Total Creatine Kinase CK-MB (CK-2) CK-MB (CK-2) Rel Index Troponin T C-Reactive Protein NT-Pro-B Natriuret Pep Total Protein Albumin LDL Cholesterol Direct Urine WBC (Auto) 09/10/18 09/10/18 09/10/18 13:09 17:07 21:13 WBC RBC Hgb Hct MCV RDW Plt Count Lymph % (Auto) [place] % (Auto) Eos % (Auto) Baso % (Auto) Lymph # Seg Neuts % (Manual) Lymphocytes % (Manual) Monocytes % (Manual) Basophils % (Manual) Nucleated RBC % Seg Neutrophils # Man Lymphocytes # (Manual) Monocytes # (Manual) PT INR D-Dimer POC ABG pH POC ABG pCO2 POC ABG pO2 Sodium Potassium Chloride Carbon Dioxide BUN Creatinine Glucose POC Glucose 134 H 117 H 154 H Lactic Acid Uric Acid Calcium Total Bilirubin AST ALT Total Creatine Kinase CK-MB (CK-2) CK-MB (CK-2) Rel Index Troponin T C-Reactive Protein NT-Pro-B Natriuret Pep Total Protein Albumin LDL Cholesterol Direct Urine WBC (Auto) 09/11/18 09/11/18 09/11/18 06:00 06:00 09:11 WBC 3.5 L RBC 2.41 L Hgb 7.4 L Hct 23.0 L MCV 96 H RDW 18.1 H Plt Count Lymph % (Auto) [place] % (Auto) 15.3 H Eos % (Auto) 5.2 H Baso % (Auto) 2.6 H Lymph # 0.6 L Seg Neuts % (Manual) Lymphocytes % (Manual) Monocytes % (Manual) Basophils % (Manual) Nucleated RBC % Seg Neutrophils # Man Lymphocytes # (Manual) Monocytes # (Manual) PT INR D-Dimer POC ABG pH POC ABG pCO2 POC ABG pO2 Sodium Potassium 5.4 H Chloride Carbon Dioxide BUN 30 H Creatinine Glucose 108 H POC Glucose 124 H Lactic Acid Uric Acid Calcium Total Bilirubin AST ALT Total Creatine Kinase CK-MB (CK-2) CK-MB (CK-2) Rel Index Troponin T C-Reactive Protein NT-Pro-B Natriuret Pep Total Protein Albumin LDL Cholesterol Direct Urine WBC (Auto) 09/11/18 09/11/18 12:06 16:18 WBC RBC Hgb Hct MCV RDW Plt Count Lymph % (Auto) [place] % (Auto) Eos % (Auto) Baso % (Auto) Lymph # Seg Neuts % (Manual) Lymphocytes % (Manual) Monocytes % (Manual) Basophils % (Manual) Nucleated RBC % Seg Neutrophils # Man Lymphocytes # (Manual) Monocytes # (Manual) PT INR D-Dimer POC ABG pH POC ABG pCO2 POC ABG pO2 Sodium Potassium Chloride Carbon Dioxide BUN Creatinine Glucose POC Glucose 144 H 138 H Lactic Acid Uric Acid Calcium Total Bilirubin AST ALT Total Creatine Kinase CK-MB (CK-2) CK-MB (CK-2) Rel Index Troponin T C-Reactive Protein NT-Pro-B Natriuret Pep Total Protein Albumin LDL Cholesterol Direct Urine WBC (Auto) Allied health notes reviewed: RT
[2018-09-12] MEDS: AMBIEN PO PRN ×2 (02:00→23:02)
[2018-09-12] MEDS: HumaLOG SUB-Q SCH ×4 (08:00→22:53)
[2018-09-12] MEDS: BROVANA NEBU IH SCH ×2 (09:37→20:55)
[2018-09-12] MEDS: PULMICORT IH SCH ×2 (09:37→20:55)
[2018-09-12] MEDS: DUONEB *Not for PRN Use IH SCH ×2 (09:37→20:55)
[2018-09-12 09:40] LABS: Hemoglobin 8.1 gm/dl (11.8-15.2); Mean Corpuscular HGB Conc 32 % (32-34); Mean Corpuscular Hemoglobin 31 pg (28-32); Mean Corpuscular Volume 96 fl (84-94); Platelet Count 174 K/mm3 (140-440); Red Blood Count 2.62 M/mm3 (3.65-5.03); Red Cell Distribution Width 17.8 % (13.2-15.2)
[2018-09-12 10:05] LABS: Calcium 8.7 mg/dL (8.4-10.2)
[2018-09-12] MEDS: KEPPRA PO SCH ×2 (10:27→23:02)
[2018-09-12] MEDS: APRESOLINE PO SCH ×2 (10:27→23:02)
[2018-09-12] MEDS: HEPARIN SUB-Q SCH ×2 (10:28→23:02)
[2018-09-12] MEDS: BENADRYL PO PRN (10:32)
--- NOTE | 2018-09-12 12:46 | Progress Note ---
Assessment and Plan Assessment and plan: Acute on chronic respiratory failure. Etiology secondary to COPD exacerbation. Continue O2 and nebulizers. Improving. Acute kidney injury on CKD stage III. Off hemodialysis now. Creatinine remained stable despite off hemodialysis. Acute COPD exacerbation. We'll continue nebulizers, antibiotics and O2 continuously. Also prednisone at discharge. Patient doing well. Awaiting half-way placement Hyperkalemia. recheck in am Pneumonia may be gram-negative nini continue current antibiotics per ID. Sepsis. Improved. Leukocytosis resolved. Pulseless electrical activity status post cardiorespiratory arrest. Cont. beta renetta and aspirin. Supportive care. Seizure disorder. EEG Normal Morbid obesity. supportive care Disposition. Awaiting fpc placement. History Interval history: Feels better No shortness of breath currently Hospitalist Physical - Physical exam Narrative exam: Gen: Not in acute distress, lying in bed, morbidly obese HEENT: Normocephalic, atraumatic Neck: supple, no JVD Heart: S1 and S2 reg, no murmurs, rubs or gallop Lungs: Decreased breath sounds, no crackles or wheeze Abd: soft, non tender, non distended, normal BS Ext: No edema, no clubbing, no cyanosis Neuro:awake,alert, Oriented X 3. No focal signs - Constitutional Vitals: Temp Pulse Resp BP Pulse Ox 98.2 F 84 18 149/69 87 09/12/18 11:35 09/12/18 10:27 09/12/18 11:35 09/12/18 11:35 09/12/18 11:35 General appearance: Present: no acute distress, other (intubated, chronically ill appearing) Results - Labs CBC & Chem 7: 09/13/18 06:48 09/13/18 06:48 Labs: Laboratory Last Values WBC 4.0 K/mm3 (4.5-11.0) L 09/12/18 09:17 RBC 2.62 M/mm3 (3.65-5.03) L 09/12/18 09:17 Hgb 8.1 gm/dl (11.8-15.2) L 09/12/18 09:17 Hct 25.0 % (35.5-45.6) L 09/12/18 09:17 MCV 96 fl (84-94) H 09/12/18 09:17 MCH 31 pg (28-32) 09/12/18 09:17 MCHC 32 % (32-34) 09/12/18 09:17 RDW 17.8 % (13.2-15.2) H 09/12/18 09:17 Plt Count 174 K/mm3 (140-440) 09/12/18 09:17 Lymph % (Auto) 16.1 % (13.4-35.0) 09/11/18 06:00 [place] % (Auto) 15.3 % (0.0-7.3) H 09/11/18 06:00 Eos % (Auto) 5.2 % (0.0-4.3) H 09/11/18 06:00 Baso % (Auto) 2.6 % (0.0-1.8) H 09/11/18 06:00 Lymph # 0.6 K/mm3 (1.2-5.4) L 09/11/18 06:00 [place] # 0.5 K/mm3 (0.0-0.8) 09/11/18 06:00 Eos # 0.2 K/mm3 (0.0-0.4) 09/11/18 06:00 Baso # 0.1 K/mm3 (0.0-0.1) 09/11/18 06:00 Add Manual Diff Complete 09/06/18 06:42 Total Counted 100 09/06/18 06:42 Seg Neutrophils % 60.8 % (40.0-70.0) 09/11/18 06:00 Seg Neuts % (Manual) 79.0 % (40.0-70.0) H 09/06/18 06:42 0 % 09/06/18 06:42 6.0 % (13.4-35.0) L 09/06/18 06:42 Reactive Lymphs % (Man) 0 % 09/06/18 06:42 12.0 % (0.0-7.3) H 09/06/18 06:42 1.0 % (0.0-4.3) 09/06/18 06:42 2.0 % (0.0-1.8) H 09/06/18 06:42 0 % 09/06/18 06:42 0 % 09/06/18 06:42 0 % 09/06/18 06:42 0 % 09/06/18 06:42 Nucleated RBC % Not Reportable 09/06/18 06:42 Seg Neutrophils # 2.1 K/mm3 (1.8-7.7) 09/11/18 06:00 Seg Neutrophils # Man 3.9 K/mm3 (1.8-7.7) 09/06/18 06:42 Band Neutrophils # 0.0 K/mm3 09/06/18 06:42 0.3 K/mm3 (1.2-5.4) L 09/06/18 06:42 Abs React Lymphs (Man) 0.0 K/mm3 09/06/18 06:42 0.6 K/mm3 (0.0-0.8) 09/06/18 06:42 0.0 K/mm3 (0.0-0.4) 09/06/18 06:42 0.1 K/mm3 (0.0-0.1) 09/06/18 06:42 0.0 K/mm3 09/06/18 06:42 0.0 K/mm3 09/06/18 06:42 0.0 K/mm3 09/06/18 06:42 Blast Cells # 0.0 K/mm3 09/06/18 06:42 WBC Morphology Not Reportable 09/06/18 06:42 Hypersegmented Neuts Not Reportable 09/06/18 06:42 Hyposegmented Neuts Not Reportable 09/06/18 06:42 Hypogranular Neuts Not Reportable 09/06/18 06:42 Not Reportable 09/06/18 06:42 Not Reportable 09/06/18 06:42 Not Reportable 09/06/18 06:42 Not Reportable 09/06/18 06:42 Not Reportable 09/06/18 06:42 Not Reportable 09/06/18 06:42 Consistent w auto 09/06/18 06:42 Not Reportable 09/06/18 06:42 Plt Clumps, EDTA Not Reportable 09/06/18 06:42 Not Reportable 09/06/18 06:42 Not Reportable 09/06/18 06:42 Not Reportable 09/06/18 06:42 Plt Morphology Comment Not Reportable 09/06/18 06:42 RBC Morphology Not Reportable 09/06/18 06:42 Dimorphic RBCs Not Reportable 09/06/18 06:42 Not Reportable 09/06/18 06:42 Not Reportable 09/06/18 06:42 Not Reportable 09/06/18 06:42 1+ 09/06/18 06:42 Not Reportable 09/06/18 06:42 1+ 09/06/18 06:42 Not Reportable 09/06/18 06:42 Not Reportable 09/06/18 06:42 Not Reportable 09/06/18 06:42 Not Reportable 09/06/18 06:42 Not Reportable 09/06/18 06:42 Not Reportable 09/06/18 06:42 Not Reportable 09/06/18 06:42 Not Reportable 09/06/18 06:42 Not Reportable 09/06/18 06:42 Not Reportable 09/06/18 06:42 Not Reportable 09/06/18 06:42 Not Reportable 09/06/18 06:42 Not Reportable 09/06/18 06:42 Acanthocytes (Spur) Not Reportable 09/06/18 06:42 Rouleaux Not Reportable 09/06/18 06:42 Not Reportable 09/06/18 06:42 Not Reportable 09/06/18 06:42 Not Reportable 09/06/18 06:42 Not Reportable 09/06/18 06:42 Hem Pathologist Commnt No 09/06/18 06:42 PT 15.6 Sec. (12.2-14.9) H 08/25/18 16:43 INR 1.27 (0.87-1.13) H 08/25/18 16:43 APTT 30.8 Sec. (24.2-36.6) 08/21/18 04:42 1978.25 ng/mlDDU (0-234) H 08/24/18 13:41 POC ABG pH 7.410 (7.35-7.45) 08/30/18 13:35 POC ABG pCO2 41.4 (35-45) 08/30/18 13:35 POC ABG pO2 99 (80-105) 08/30/18 13:35 POC ABG HCO3 26.2 (22-26 mml/L) 08/30/18 13:35 POC ABG Total CO2 27 (23-27mmol/L) 08/30/18 13:35 POC ABG O2 Sat 98 08/30/18 13:35 POC ABG Base Excess 2 ((-2) - (+3)mmol/L) 08/30/18 13:35 30 % 08/30/18 13:35 Sodium 137 mmol/L (137-145) 09/12/18 09:17 Potassium 5.3 mmol/L (3.6-5.0) H 09/12/18 09:17 Chloride 102.0 mmol/L (98-107) 09/12/18 09:17 Carbon Dioxide 24 mmol/L (22-30) 09/12/18 09:17 16 mmol/L 09/12/18 09:17 BUN 27 mg/dL (9-20) H 09/12/18 09:17 1.4 mg/dL (0.8-1.5) 09/12/18 09:17 Estimated GFR 50 ml/min 09/12/18 09:17 19 % 09/12/18 09:17 Glucose 113 mg/dL (75-100) H 09/12/18 09:17 POC Glucose 147 (70-105) H 09/12/18 11:16 317 Mosm/kg 08/31/18 13:54 Lactic Acid 1.30 mmol/L (0.7-2.0) 08/21/18 20:50 9.6 mg/dL (3.5-7.6) H 08/31/18 13:54 Calcium 8.7 mg/dL (8.4-10.2) 09/12/18 09:17 Magnesium 2.00 mg/dL (1.7-2.3) 09/02/18 05:16 0.60 mg/dL (0.1-1.2) 08/28/18 04:49 AST 27 units/L (5-40) 08/28/18 04:49 ALT 12 units/L (7-56) 08/28/18 04:49 87 units/L (35-129) 08/28/18 04:49 222 units/L (55-170) H 08/21/18 10:45 CK-MB (CK-2) 9.2 ng/mL (0.0-4.0) H 08/21/18 10:45 CK-MB (CK-2) Rel Index 4.1 (0-4) H 08/21/18 10:45 0.020 ng/mL (0.00-0.029) 09/08/18 09:06 9.00 mg/dL (0.00-1.30) H 08/24/18 13:41 NT-Pro-B Natriuret Pep > 65098 pg/mL (0-900) H 08/28/18 04:49 5.4 g/dL (6.3-8.2) L 08/28/18 04:49 2.2 g/dL (3.9-5) L 08/28/18 04:49 0.7 % 08/28/18 04:49 Triglycerides 87 mg/dL (2-149) 08/21/18 04:42 Cholesterol 93 mg/dL (50-199) 08/21/18 04:42 44 mg/dL (50-130) L 08/21/18 04:42 41 mg/dL (40-59) 08/21/18 04:42 2.26 % 08/21/18 04:42 Yellow (Yellow) 08/21/18 15:03 Slightly-cloudy (Clear) 08/21/18 15:03 5.0 (5.0-7.0) 08/21/18 15:03 Ur Specific [place] 1.015 (1.003-1.030) 08/21/18 15:03 30 mg/dl mg/dL (Negative) 08/21/18 15:03 Neg mg/dL (Negative) 08/21/18 15:03 Neg mg/dL (Negative) 08/21/18 15:03 Mod (Negative) 08/21/18 15:03 Neg (Negative) 08/21/18 15:03 Neg (Negative) 08/21/18 15:03 < 2.0 mg/dL (<2.0) 08/21/18 15:03 Ur Leukocyte Esterase Tr (Negative) 08/21/18 15:03 13.0 /HPF (0.0-6.0) H 08/21/18 15:03 15.0 /HPF (0.0-6.0) 08/21/18 15:03 U Epithel Cells (Auto) 1.0 /HPF (0-13.0) 08/21/18 15:03 1+ /HPF (Negative) 08/21/18 15:03 Few /HPF 08/21/18 15:03 Random Vancomycin 10.5 ug/mL (0-40.0) 08/26/18 05:53 Levetiracetam 25.7 mcg/mL (12.0-46.0) 08/26/18 13:42 Hepatitis A IgM Ab Non-reactive (NonReactive) 08/27/18 23:25 Hep Bs Antigen Non-reactive (Negative) 08/27/18 23:25 Hep B Core IgM Ab Non-reactive (NonReactive) 08/27/18 23:25 Non-reactive (NonReactive) 08/27/18 23:25 Active Medications - Current Medications Current Medications: Generic Name Dose Route Start Last Admin Trade Name Freq PRN Reason Stop Dose Admin Acetaminophen 650 mg 08/21/18 06:31 09/01/18 21:12 Tylenol PO 650 mg Q4H PRN Administration Pain MILD(1-3)/Fever >100.5/COOK Albuterol/Ipratropium 1 ampul 08/24/18 20:00 09/12/18 09:37 Duoneb *Not For Prn Use* IH Not Given BIDRT LUIS Lipase/Protease/Amylase 1 each 08/26/18 12:07 Pancreaze 10,500 Unit FEEDTUBE PRN PRN For Clogged Feeding Tube Arformoterol Tartrate 15 mcg 08/24/18 20:00 09/12/18 09:37 Brovana Nebu IH 15 mcg Q12HRT LUIS Administration Bisacodyl 10 mg 09/02/18 12:42 Dulcolax NM QDAY PRN Constipation Budesonide 0.5 mg 08/24/18 20:00 09/12/18 09:37 Pulmicort IH 0.5 mg Q12HRT LUIS Administration Dextrose 50 ml 08/21/18 06:48 D50w (25gm) Syringe IV PRN PRN Hypoglycemia Diphenhydramine HCl 25 mg 09/11/18 06:07 09/12/18 10:32 Benadryl PO 25 mg Q6H PRN Administration Itching Heparin Sodium (Porcine) 5,000 unit 08/22/18 10:00 09/12/18 10:28 Heparin SUB-Q 5,000 unit Q12HR LUIS Administration Hydralazine HCl 50 mg 09/08/18 10:00 09/12/18 10:27 Apresoline PO 50 mg BID LUIS Administration Insulin Human Lispro 0 unit 08/31/18 22:00 09/11/18 21:31 Humalog SUB-Q Not Given ACHS [facility] Protocol Levetiracetam 750 mg 09/04/18 22:00 09/12/18 10:27 Keppra PO 750 mg BID LUIS Administration Metoclopramide HCl 10 mg 09/05/18 18:35 09/10/18 03:02 Reglan IV 10 mg Q6H PRN Administration Nausea And Vomiting Morphine Sulfate 2 mg 08/26/18 14:24 08/30/18 01:40 Morphine IV 2 mg Q6H PRN Administration Pain, Moderate (4-6) Ondansetron HCl 4 mg 08/21/18 06:31 Zofran IV Q8H PRN Nausea And Vomiting Sodium Chloride 10 ml 08/21/18 10:00 09/11/18 21:31 Sodium Chloride Flush Syringe 10 Ml IV 10 ml BID LUIS Administration Zolpidem Tartrate 5 mg 09/09/18 00:19 09/12/18 02:00 Ambien PO 5 mg QHS PRN Administration Sleep Nutrition/Malnutrition Assess - Dietary Evaluation Nutrition/Malnutrition Findings: Nutrition Notes Start: 08/21/18 16:58 Freq: Status: Active Protocol: Document 09/05/18 14:18 TUAN (Rec: 09/05/18 14:30 TUAN [email or web address]) Nutrition Notes Initial or Follow up Reassessment Current Diagnosis Heart Failure Other Pertinent Diagnosis COPD exacerbation, pneu, s/p cardiac arrest Current Diet Cardiac/Consistent CHO with chopped meats + Glucerna daily Labs/Tests Reviewed Pertinent Medications Reviewed Height 5 ft 6 in Weight 146.3 kg [place] Body Weight (kg) 64.54 BMI 52.0 Subjective/Other Information PT has consumed 75% of meals since last assessment. He drinks ONS daily as well. Percent of energy/protein needs met: 97% energy 70% pro (includes ONS) Burn Absent Trauma Absent #1 Nutrition Diagnosis Inadequate oral intake As Evidenced by Signs and Symptoms PO intake meeting >50% energy and pro needs Diagnosis Progress(for reassessment Improved documentation) Is patient on ventilator? No Is Patient Ambulatory and/or Out of Bed No REE-([place]-confined to bed) 2592.060 Kcal/Kg value to use for calculation 12 Approximate Energy Requirements Using 1756 kcal/Kg Additional Notes Pro needs 1-1.2g/kg adjBW: 105-127g/day Fluid needs 1ml/kcal Nutrition Intervention Change Diet Order: Continue current Add Supplement/Snack (indicate name/kcal Glucerna Chocolate, [place] /protein ) 1 daily Provides kCal: 220 Provides Protein (gm) 10 Goal #1 Meet at least 75% of kcal and protein needs via PO intakes Follow-Up By: 09/12/18 Additional Comments F/U: stable intakes, wt
--- NOTE | 2018-09-12 16:56 | Progress Note ---
Assessment and Plan Patient is awake and resting on CPAP with 3 litres O2. O2 saturation is 87%. No acute respiratory distress. Patient is afebrile. No leukocytosis. - Patient Problems (1) COPD (chronic obstructive pulmonary disease) Current Visit: Yes Status: Acute Plan to address problem: CPAP with 3 litres O2. 3 litres O2 when he is not on BIPAP. Albuterol and atrovent aeorosol treatment q6 hours PRN for shortness of breath. Brovanna/ budesonide aeorsol treatment q 12 hours continue subq heparin. Patient is on reglan. (2) Acute on chronic respiratory failure Current Visit: Yes Status: Acute Plan to address problem: CPAP with 3 litres O2. 3 litres O2 when she is on BIPAP. Albuterol and atrovent aeorosol treatment q6 hours PRN for shortness of breath. Brovanna/ budesonide aeorsol treatment q 12 hours continue subq heparin. Patient is on reglan. (3) Acute HFrEF (heart failure with reduced ejection fraction) Current Visit: Yes Status: Resolved Plan to address problem: Management as per cardiology. (4) Acute renal failure Current Visit: Yes Status: Acute Plan to address problem: Management as per Nephrology. (5) Altered mental status Current Visit: Yes Status: Acute Plan to address problem: Management as per primary care and neurology. (6) Bacteremia due to coagulase-negative Staphylococcus Current Visit: Yes Status: Acute Plan to address problem: management as per infectious diseases. (7) Anemia Current Visit: Yes Status: Acute Plan to address problem: Management as per primary care. Subjective Date of service: 09/12/18 Principal diagnosis: s/p cardiac arrest; severe sepsis; acute hypoxemic- hypercapnic resp failure Interval history: Patient is awake and resting on CPAP with 3 litres O2. O2 saturation is 87%. No acute respiratory distress. Patient is afebrile. No leukocytosis. Objective Vital Signs - 12hr 09/12/18 09/12/18 09/12/18 09:36 09:37 09:46 Temperature Pulse Rate Pulse Rate [ 91 H 99 H Anterior Right Upper Lobe] Respiratory Rate Respiratory 20 18 Rate [Anterior Right Upper Lobe] Blood Pressure O2 Sat by Pulse 100 Oximetry 09/12/18 09/12/18 09/12/18 10:00 10:27 11:35 Temperature 98.2 F Pulse Rate 104 H 84 Pulse Rate [ Anterior Right Upper Lobe] Respiratory 18 Rate Respiratory Rate [Anterior Right Upper Lobe] Blood Pressure 149/69 O2 Sat by Pulse 87 Oximetry Constitutional: no acute distress, alert Eyes: non-icteric ENT: oropharynx moist, other Neck: supple, no JVD, other (short neck) Effort: mildly labored Ascultation: Bilateral: diminished breath sounds, rhonchi (coarse BS bilaterally) Percussion: Bilateral: not dull Cardiovascular: regular rate and rhythm, other (S1,S2, no murmurs, no gallops or rubs) Gastrointestinal: normoactive bowel sounds, soft, non-tender, non-distended, other (Madison catheter in place, clear urine) Integumentary: normal, other (right femoral HD catheter) Extremities: no cyanosis, no edema, pink and warm, pulses normal, no ischemia or petechiae Neurologic: non-focal exam (grossly), pupils equal and round, motor strength normal and, other (awake and alert, obeying one step commands) Psychiatric: mood appropriate, affect normal CBC and BMP: 09/12/18 09:17 09/12/18 09:17 ABG, PT/INR, D-dimer: ABG POC ABG pH 7.410 (7.35-7.45) 08/30/18 13:35 POC ABG pCO2 41.4 (35-45) 08/30/18 13:35 POC ABG pO2 99 (80-105) 08/30/18 13:35 POC ABG HCO3 26.2 (22-26 mml/L) 08/30/18 13:35 POC ABG Total CO2 27 (23-27mmol/L) 08/30/18 13:35 POC ABG O2 Sat 98 08/30/18 13:35 PT/INR, D-dimer PT 15.6 Sec. (12.2-14.9) H 08/25/18 16:43 INR 1.27 (0.87-1.13) H 08/25/18 16:43 1978.25 ng/mlDDU (0-234) H 08/24/18 13:41 Abnormal lab findings: Abnormal Labs 08/21/18 08/21/18 08/21/18 04:42 04:42 04:42 WBC 19.1 H RBC 2.49 L Hgb 7.7 L Hct 24.5 L MCV 98 H RDW 17.7 H Plt Count Lymph % (Auto) [place] % (Auto) Eos % (Auto) Baso % (Auto) Lymph # Seg Neuts % (Manual) 84.0 H Lymphocytes % (Manual) 7.0 L Monocytes % (Manual) 9.0 H Basophils % (Manual) Nucleated RBC % Seg Neutrophils # Man 16.0 H Lymphocytes # (Manual) Monocytes # (Manual) 1.7 H PT 20.1 H INR 1.76 H D-Dimer POC ABG pH POC ABG pCO2 POC ABG pO2 Sodium Potassium Chloride Carbon Dioxide BUN Creatinine Glucose POC Glucose Lactic Acid Uric Acid Calcium Total Bilirubin AST ALT Total Creatine Kinase CK-MB (CK-2) CK-MB (CK-2) Rel Index Troponin T 0.032 H C-Reactive Protein NT-Pro-B Natriuret Pep Total Protein Albumin LDL Cholesterol Direct 44 L Urine WBC (Auto) 08/21/18 08/21/18 08/21/18 04:42 04:42 04:42 WBC RBC Hgb Hct MCV RDW Plt Count Lymph % (Auto) [place] % (Auto) Eos % (Auto) Baso % (Auto) Lymph # Seg Neuts % (Manual) Lymphocytes % (Manual) Monocytes % (Manual) Basophils % (Manual) Nucleated RBC % Seg Neutrophils # Man Lymphocytes # (Manual) Monocytes # (Manual) PT INR D-Dimer POC ABG pH POC ABG pCO2 POC ABG pO2 Sodium Potassium 6.0 H Chloride Carbon Dioxide 15 L BUN 57 H Creatinine 4.3 H Glucose 111 H POC Glucose Lactic Acid 5.80 H* Uric Acid Calcium Total Bilirubin 1.80 H AST 212 H ALT 94 H Total Creatine Kinase CK-MB (CK-2) CK-MB (CK-2) Rel Index Troponin T C-Reactive Protein NT-Pro-B Natriuret Pep 93609 H Total Protein Albumin 3.2 L LDL Cholesterol Direct Urine WBC (Auto) 08/21/18 08/21/18 08/21/18 05:08 05:58 05:58 WBC RBC Hgb Hct MCV RDW Plt Count Lymph % (Auto) [place] % (Auto) Eos % (Auto) Baso % (Auto) Lymph # Seg Neuts % (Manual) Lymphocytes % (Manual) Monocytes % (Manual) Basophils % (Manual) Nucleated RBC % Seg Neutrophils # Man Lymphocytes # (Manual) Monocytes # (Manual) PT INR D-Dimer POC ABG pH 7.164 L POC ABG pCO2 46.3 H POC ABG pO2 229 H Sodium Potassium Chloride Carbon Dioxide BUN Creatinine Glucose POC Glucose Lactic Acid 5.10 H* Uric Acid Calcium Total Bilirubin AST ALT Total Creatine Kinase CK-MB (CK-2) CK-MB (CK-2) Rel Index Troponin T 0.035 H C-Reactive Protein NT-Pro-B Natriuret Pep Total Protein Albumin LDL Cholesterol Direct Urine WBC (Auto) 08/21/18 08/21/18 08/21/18 06:45 06:45 06:53 WBC RBC Hgb Hct MCV RDW Plt Count Lymph % (Auto) [place] % (Auto) Eos % (Auto) Baso % (Auto) Lymph # Seg Neuts % (Manual) Lymphocytes % (Manual) Monocytes % (Manual) Basophils % (Manual) Nucleated RBC % Seg Neutrophils # Man Lymphocytes # (Manual) Monocytes # (Manual) PT INR D-Dimer POC ABG pH 7.160 L POC ABG pCO2 46.8 H POC ABG pO2 Sodium Potassium Chloride Carbon Dioxide BUN Creatinine Glucose POC Glucose Lactic Acid 4.70 H* Uric Acid Calcium Total Bilirubin AST ALT Total Creatine Kinase 234 H CK-MB (CK-2) 9.1 H CK-MB (CK-2) Rel Index Troponin T 0.032 H C-Reactive Protein NT-Pro-B Natriuret Pep Total Protein Albumin LDL Cholesterol Direct Urine WBC (Auto) 08/21/18 08/21/18 08/21/18 10:43 10:43 10:45 WBC RBC Hgb Hct MCV RDW Plt Count Lymph % (Auto) [place] % (Auto) Eos % (Auto) Baso % (Auto) Lymph # Seg Neuts % (Manual) Lymphocytes % (Manual) Monocytes % (Manual) Basophils % (Manual) Nucleated RBC % Seg Neutrophils # Man Lymphocytes # (Manual) Monocytes # (Manual) PT INR D-Dimer POC ABG pH POC ABG pCO2 POC ABG pO2 Sodium Potassium Chloride Carbon Dioxide 17 L BUN 59 H Creatinine 4.2 H Glucose POC Glucose Lactic Acid 3.70 H* Uric Acid Calcium Total Bilirubin AST ALT Total Creatine Kinase 222 H CK-MB (CK-2) 9.2 H CK-MB (CK-2) Rel Index 4.1 H Troponin T 0.044 H D C-Reactive Protein NT-Pro-B Natriuret Pep Total Protein Albumin LDL Cholesterol Direct Urine WBC (Auto) 08/21/18 08/21/18 08/21/18 11:38 12:33 15:03 WBC RBC Hgb Hct MCV RDW Plt Count Lymph % (Auto) [place] % (Auto) Eos % (Auto) Baso % (Auto) Lymph # Seg Neuts % (Manual) Lymphocytes % (Manual) Monocytes % (Manual) Basophils % (Manual) Nucleated RBC % Seg Neutrophils # Man Lymphocytes # (Manual) Monocytes # (Manual) PT INR D-Dimer POC ABG pH 7.250 L POC ABG pCO2 POC ABG pO2 121 H Sodium Potassium Chloride Carbon Dioxide BUN Creatinine Glucose POC Glucose 129 H Lactic Acid Uric Acid Calcium Total Bilirubin AST ALT Total Creatine Kinase CK-MB (CK-2) CK-MB (CK-2) Rel Index Troponin T C-Reactive Protein NT-Pro-B Natriuret Pep Total Protein Albumin LDL Cholesterol Direct Urine WBC (Auto) 13.0 H 08/21/18 08/22/18 08/22/18 15:47 00:01 04:27 WBC RBC Hgb Hct MCV RDW Plt Count Lymph % (Auto) [place] % (Auto) Eos % (Auto) Baso % (Auto) Lymph # Seg Neuts % (Manual) Lymphocytes % (Manual) Monocytes % (Manual) Basophils % (Manual) Nucleated RBC % Seg Neutrophils # Man Lymphocytes # (Manual) Monocytes # (Manual) PT INR D-Dimer POC ABG pH 7.457 H POC ABG pCO2 POC ABG pO2 117 H Sodium Potassium Chloride Carbon Dioxide BUN Creatinine Glucose POC Glucose 211 H Lactic Acid 2.70 H* Uric Acid Calcium Total Bilirubin AST ALT Total Creatine Kinase CK-MB (CK-2) CK-MB (CK-2) Rel Index Troponin T C-Reactive Protein NT-Pro-B Natriuret Pep Total Protein Albumin LDL Cholesterol Direct Urine WBC (Auto) 08/22/18 08/22/18 08/22/18 05:46 06:10 06:10 WBC RBC 2.27 L Hgb 7.0 L Hct 21.2 L MCV RDW 16.8 H Plt Count 129 L Lymph % (Auto) [place] % (Auto) Eos % (Auto) Baso % (Auto) Lymph # Seg Neuts % (Manual) 95.0 H Lymphocytes % (Manual) 1.0 L Monocytes % (Manual) Basophils % (Manual) Nucleated RBC % 1.0 H Seg Neutrophils # Man 7.8 H Lymphocytes # (Manual) 0.1 L Monocytes # (Manual) PT INR D-Dimer POC ABG pH POC ABG pCO2 POC ABG pO2 Sodium Potassium Chloride Carbon Dioxide 20 L BUN 63 H Creatinine 3.9 H Glucose 205 H POC Glucose 223 H Lactic Acid Uric Acid Calcium Total Bilirubin AST ALT Total Creatine Kinase CK-MB (CK-2) CK-MB (CK-2) Rel Index Troponin T C-Reactive Protein NT-Pro-B Natriuret Pep Total Protein Albumin LDL Cholesterol Direct Urine WBC (Auto) 08/22/18 08/22/18 08/22/18 06:10 12:57 16:21 WBC RBC Hgb Hct MCV RDW Plt Count Lymph % (Auto) [place] % (Auto) Eos % (Auto) Baso % (Auto) Lymph # Seg Neuts % (Manual) Lymphocytes % (Manual) Monocytes % (Manual) Basophils % (Manual) Nucleated RBC % Seg Neutrophils # Man Lymphocytes # (Manual) Monocytes # (Manual) PT INR D-Dimer POC ABG pH 7.477 H POC ABG pCO2 POC ABG pO2 Sodium Potassium Chloride Carbon Dioxide BUN Creatinine Glucose POC Glucose 166 H Lactic Acid Uric Acid Calcium Total Bilirubin AST ALT Total Creatine Kinase CK-MB (CK-2) CK-MB (CK-2) Rel Index Troponin T C-Reactive Protein 23.60 H NT-Pro-B Natriuret Pep Total Protein Albumin LDL Cholesterol Direct Urine WBC (Auto) 08/22/18 08/22/18 08/23/18 17:41 23:42 04:38 WBC RBC Hgb Hct MCV RDW Plt Count Lymph % (Auto) [place] % (Auto) Eos % (Auto) Baso % (Auto) Lymph # Seg Neuts % (Manual) Lymphocytes % (Manual) Monocytes % (Manual) Basophils % (Manual) Nucleated RBC % Seg Neutrophils # Man Lymphocytes # (Manual) Monocytes # (Manual) PT INR D-Dimer POC ABG pH 7.249 L POC ABG pCO2 53.5 H POC ABG pO2 73 L Sodium Potassium Chloride Carbon Dioxide BUN Creatinine Glucose POC Glucose 131 H 168 H Lactic Acid Uric Acid Calcium Total Bilirubin AST ALT Total Creatine Kinase CK-MB (CK-2) CK-MB (CK-2) Rel Index Troponin T C-Reactive Protein NT-Pro-B Natriuret Pep Total Protein Albumin LDL Cholesterol Direct Urine WBC (Auto) 08/23/18 08/23/18 08/23/18 04:52 04:52 04:52 WBC RBC 2.39 L Hgb 7.5 L Hct 22.8 L MCV 95 H RDW 17.6 H Plt Count Lymph % (Auto) [place] % (Auto) Eos % (Auto) Baso % (Auto) Lymph # Seg Neuts % (Manual) Lymphocytes % (Manual) Monocytes % (Manual) Basophils % (Manual) Nucleated RBC % Seg Neutrophils # Man Lymphocytes # (Manual) Monocytes # (Manual) PT INR D-Dimer POC ABG pH POC ABG pCO2 POC ABG pO2 Sodium Potassium 5.6 H 5.6 H Chloride Carbon Dioxide 21 L BUN 71 H 72 H Creatinine 4.1 H 4.0 H Glucose 141 H 140 H POC Glucose Lactic Acid Uric Acid Calcium 8.3 L 8.2 L Total Bilirubin AST 247 H ALT 220 H Total Creatine Kinase CK-MB (CK-2) CK-MB (CK-2) Rel Index Troponin T C-Reactive Protein NT-Pro-B Natriuret Pep Total Protein Albumin 2.8 L LDL Cholesterol Direct Urine WBC (Auto) 08/23/18 08/23/18 08/23/18 05:50 08:38 12:21 WBC RBC Hgb Hct MCV RDW Plt Count Lymph % (Auto) [place] % (Auto) Eos % (Auto) Baso % (Auto) Lymph # Seg Neuts % (Manual) Lymphocytes % (Manual) Monocytes % (Manual) Basophils % (Manual) Nucleated RBC % Seg Neutrophils # Man Lymphocytes # (Manual) Monocytes # (Manual) PT INR D-Dimer POC ABG pH POC ABG pCO2 POC ABG pO2 Sodium Potassium Chloride Carbon Dioxide BUN Creatinine Glucose POC Glucose 160 H 177 H Lactic Acid Uric Acid Calcium Total Bilirubin AST ALT Total Creatine Kinase CK-MB (CK-2) CK-MB (CK-2) Rel Index Troponin T C-Reactive Protein NT-Pro-B Natriuret Pep 87082 H Total Protein Albumin LDL Cholesterol Direct Urine WBC (Auto) 08/23/18 08/23/18 08/23/18 12:36 14:24 18:05 WBC RBC Hgb Hct MCV RDW Plt Count Lymph % (Auto) [place] % (Auto) Eos % (Auto) Baso % (Auto) Lymph # Seg Neuts % (Manual) Lymphocytes % (Manual) Monocytes % (Manual) Basophils % (Manual) Nucleated RBC % Seg Neutrophils # Man Lymphocytes # (Manual) Monocytes # (Manual) PT INR D-Dimer POC ABG pH 7.337 L POC ABG pCO2 POC ABG pO2 145 H Sodium 136 L Potassium 5.2 H Chloride Carbon Dioxide BUN 76 H Creatinine 4.2 H Glucose 158 H POC Glucose 169 H Lactic Acid Uric Acid Calcium 8.1 L Total Bilirubin AST ALT Total Creatine Kinase CK-MB (CK-2) CK-MB (CK-2) Rel Index Troponin T C-Reactive Protein NT-Pro-B Natriuret Pep Total Protein Albumin LDL Cholesterol Direct Urine WBC (Auto) 08/23/18 08/23/18 08/24/18 22:43 23:42 05:16 WBC RBC Hgb Hct MCV RDW Plt Count Lymph % (Auto) [place] % (Auto) Eos % (Auto) Baso % (Auto) Lymph # Seg Neuts % (Manual) Lymphocytes % (Manual) Monocytes % (Manual) Basophils % (Manual) Nucleated RBC % Seg Neutrophils # Man Lymphocytes # (Manual) Monocytes # (Manual) PT INR D-Dimer POC ABG pH POC ABG pCO2 POC ABG pO2 Sodium 136 L Potassium 5.3 H 5.2 H Chloride 97.9 L Carbon Dioxide BUN 80 H 86 H Creatinine 4.0 H 4.3 H Glucose 164 H 202 H POC Glucose 183 H Lactic Acid Uric Acid Calcium 7.9 L Total Bilirubin AST ALT Total Creatine Kinase CK-MB (CK-2) CK-MB (CK-2) Rel Index Troponin T C-Reactive Protein NT-Pro-B Natriuret Pep Total Protein Albumin LDL Cholesterol Direct Urine WBC (Auto) 08/24/18 08/24/18 08/24/18 05:21 05:29 10:10 WBC RBC 2.47 L Hgb 7.5 L Hct 23.3 L MCV RDW 17.5 H Plt Count 118 L Lymph % (Auto) [place] % (Auto) Eos % (Auto) Baso % (Auto) Lymph # Seg Neuts % (Manual) 92.0 H Lymphocytes % (Manual) 2.0 L Monocytes % (Manual) Basophils % (Manual) Nucleated RBC % Seg Neutrophils # Man 8.8 H Lymphocytes # (Manual) 0.2 L Monocytes # (Manual) PT INR D-Dimer POC ABG pH 7.243 L POC ABG pCO2 56.8 H POC ABG pO2 Sodium Potassium Chloride Carbon Dioxide BUN Creatinine Glucose POC Glucose 209 H Lactic Acid Uric Acid Calcium Total Bilirubin AST ALT Total Creatine Kinase CK-MB (CK-2) CK-MB (CK-2) Rel Index Troponin T C-Reactive Protein NT-Pro-B Natriuret Pep Total Protein Albumin LDL Cholesterol Direct Urine WBC (Auto) 08/24/18 08/24/18 08/24/18 10:10 11:19 13:41 WBC RBC Hgb Hct MCV RDW Plt Count Lymph % (Auto) [place] % (Auto) Eos % (Auto) Baso % (Auto) Lymph # Seg Neuts % (Manual) Lymphocytes % (Manual) Monocytes % (Manual) Basophils % (Manual) Nucleated RBC % Seg Neutrophils # Man Lymphocytes # (Manual) Monocytes # (Manual) PT INR D-Dimer 1978.25 H POC ABG pH POC ABG pCO2 POC ABG pO2 Sodium Potassium Chloride Carbon Dioxide BUN Creatinine Glucose POC Glucose 212 H Lactic Acid Uric Acid Calcium Total Bilirubin AST ALT Total Creatine Kinase CK-MB (CK-2) CK-MB (CK-2) Rel Index Troponin T C-Reactive Protein NT-Pro-B Natriuret Pep 68416 H Total Protein Albumin LDL Cholesterol Direct Urine WBC (Auto) 08/24/18 08/24/18 08/24/18 13:41 14:27 17:23 WBC RBC Hgb Hct MCV RDW Plt Count Lymph % (Auto) [place] % (Auto) Eos % (Auto) Baso % (Auto) Lymph # Seg Neuts % (Manual) Lymphocytes % (Manual) Monocytes % (Manual) Basophils % (Manual) Nucleated RBC % Seg Neutrophils # Man Lymphocytes # (Manual) Monocytes # (Manual) PT INR D-Dimer POC ABG pH POC ABG pCO2 POC ABG pO2 Sodium 136 L Potassium 5.1 H Chloride 97.8 L Carbon Dioxide BUN 90 H Creatinine 4.1 H Glucose 157 H POC Glucose 155 H Lactic Acid Uric Acid Calcium 8.0 L Total Bilirubin AST ALT Total Creatine Kinase CK-MB (CK-2) CK-MB (CK-2) Rel Index Troponin T C-Reactive Protein 9.00 H NT-Pro-B Natriuret Pep Total Protein Albumin LDL Cholesterol Direct Urine WBC (Auto) 08/25/18 08/25/18 08/25/18 00:38 05:22 05:57 WBC RBC Hgb Hct MCV RDW Plt Count Lymph % (Auto) [place] % (Auto) Eos % (Auto) Baso % (Auto) Lymph # Seg Neuts % (Manual) Lymphocytes % (Manual) Monocytes % (Manual) Basophils % (Manual) Nucleated RBC % Seg Neutrophils # Man Lymphocytes # (Manual) Monocytes # (Manual) PT INR D-Dimer POC ABG pH 7.238 L POC ABG pCO2 58.2 H POC ABG pO2 Sodium Potassium 5.4 H Chloride Carbon Dioxide BUN 98 H Creatinine 4.3 H Glucose 217 H POC Glucose 176 H Lactic Acid Uric Acid Calcium 8.3 L Total Bilirubin AST ALT Total Creatine Kinase CK-MB (CK-2) CK-MB (CK-2) Rel Index Troponin T C-Reactive Protein NT-Pro-B Natriuret Pep 77024 H Total Protein Albumin LDL Cholesterol Direct Urine WBC (Auto) 08/25/18 08/25/18 08/25/18 06:56 08:59 11:38 WBC RBC Hgb Hct MCV RDW Plt Count Lymph % (Auto) [place] % (Auto) Eos % (Auto) Baso % (Auto) Lymph # Seg Neuts % (Manual) Lymphocytes % (Manual) Monocytes % (Manual) Basophils % (Manual) Nucleated RBC % Seg Neutrophils # Man Lymphocytes # (Manual) Monocytes # (Manual) PT INR D-Dimer POC ABG pH 7.348 L POC ABG pCO2 48.6 H POC ABG pO2 Sodium Potassium Chloride Carbon Dioxide BUN Creatinine Glucose POC Glucose 247 H 235 H Lactic Acid Uric Acid Calcium Total Bilirubin AST ALT Total Creatine Kinase CK-MB (CK-2) CK-MB (CK-2) Rel Index Troponin T C-Reactive Protein NT-Pro-B Natriuret Pep Total Protein Albumin LDL Cholesterol Direct Urine WBC (Auto) 08/25/18 08/25/18 08/25/18 12:29 16:43 16:43 WBC 14.7 H RBC 2.90 L Hgb 8.9 L Hct 27.4 L MCV 95 H RDW 17.3 H Plt Count 119 L Lymph % (Auto) [place] % (Auto) Eos % (Auto) Baso % (Auto) Lymph # Seg Neuts % (Manual) 94.0 H Lymphocytes % (Manual) 2.0 L Monocytes % (Manual) Basophils % (Manual) Nucleated RBC % Seg Neutrophils # Man 13.8 H Lymphocytes # (Manual) 0.3 L Monocytes # (Manual) PT 15.6 H INR 1.27 H D-Dimer POC ABG pH POC ABG pCO2 POC ABG pO2 Sodium Potassium Chloride Carbon Dioxide BUN Creatinine Glucose POC Glucose 237 H Lactic Acid Uric Acid Calcium Total Bilirubin AST ALT Total Creatine Kinase CK-MB (CK-2) CK-MB (CK-2) Rel Index Troponin T C-Reactive Protein NT-Pro-B Natriuret Pep Total Protein Albumin LDL Cholesterol Direct Urine WBC (Auto) 08/25/18 08/26/18 08/26/18 17:22 00:16 04:56 WBC RBC Hgb Hct MCV RDW Plt Count Lymph % (Auto) [place] % (Auto) Eos % (Auto) Baso % (Auto) Lymph # Seg Neuts % (Manual) Lymphocytes % (Manual) Monocytes % (Manual) Basophils % (Manual) Nucleated RBC % Seg Neutrophils # Man Lymphocytes # (Manual) Monocytes # (Manual) PT INR D-Dimer POC ABG pH POC ABG pCO2 45.2 H POC ABG pO2 Sodium Potassium Chloride Carbon Dioxide BUN Creatinine Glucose POC Glucose 200 H 180 H Lactic Acid Uric Acid Calcium Total Bilirubin AST ALT Total Creatine Kinase CK-MB (CK-2) CK-MB (CK-2) Rel Index Troponin T C-Reactive Protein NT-Pro-B Natriuret Pep Total Protein Albumin LDL Cholesterol Direct Urine WBC (Auto) 08/26/18 08/26/18 08/26/18 05:53 06:20 08:48 WBC RBC Hgb Hct MCV RDW Plt Count Lymph % (Auto) [place] % (Auto) Eos % (Auto) Baso % (Auto) Lymph # Seg Neuts % (Manual) Lymphocytes % (Manual) Monocytes % (Manual) Basophils % (Manual) Nucleated RBC % Seg Neutrophils # Man Lymphocytes # (Manual) Monocytes # (Manual) PT INR D-Dimer POC ABG pH POC ABG pCO2 POC ABG pO2 Sodium Potassium Chloride Carbon Dioxide BUN 106 H Creatinine 3.9 H Glucose 137 H POC Glucose 131 H 126 H Lactic Acid Uric Acid Calcium 8.1 L Total Bilirubin AST ALT Total Creatine Kinase CK-MB (CK-2) CK-MB (CK-2) Rel Index Troponin T C-Reactive Protein NT-Pro-B Natriuret Pep > 24217 H Total Protein Albumin LDL Cholesterol Direct Urine WBC (Auto) 08/26/18 08/26/18 08/26/18 11:39 17:33 18:02 WBC RBC Hgb Hct MCV RDW Plt Count Lymph % (Auto) [place] % (Auto) Eos % (Auto) Baso % (Auto) Lymph # Seg Neuts % (Manual) Lymphocytes % (Manual) Monocytes % (Manual) Basophils % (Manual) Nucleated RBC % Seg Neutrophils # Man Lymphocytes # (Manual) Monocytes # (Manual) PT INR D-Dimer POC ABG pH POC ABG pCO2 POC ABG pO2 58 L Sodium Potassium Chloride Carbon Dioxide BUN Creatinine Glucose POC Glucose 156 H 173 H Lactic Acid Uric Acid Calcium Total Bilirubin AST ALT Total Creatine Kinase CK-MB (CK-2) CK-MB (CK-2) Rel Index Troponin T C-Reactive Protein NT-Pro-B Natriuret Pep Total Protein Albumin LDL Cholesterol Direct Urine WBC (Auto) 08/26/18 08/27/18 08/27/18 23:12 04:59 11:51 WBC RBC Hgb Hct MCV RDW Plt Count Lymph % (Auto) [place] % (Auto) Eos % (Auto) Baso % (Auto) Lymph # Seg Neuts % (Manual) Lymphocytes % (Manual) Monocytes % (Manual) Basophils % (Manual) Nucleated RBC % Seg Neutrophils # Man Lymphocytes # (Manual) Monocytes # (Manual) PT INR D-Dimer POC ABG pH 7.563 H POC ABG pCO2 < 30 L POC ABG pO2 69 L Sodium Potassium Chloride Carbon Dioxide BUN Creatinine Glucose POC Glucose 130 H 107 H Lactic Acid Uric Acid Calcium Total Bilirubin AST ALT Total Creatine Kinase CK-MB (CK-2) CK-MB (CK-2) Rel Index Troponin T C-Reactive Protein NT-Pro-B Natriuret Pep Total Protein Albumin LDL Cholesterol Direct Urine WBC (Auto) 08/27/18 08/27/18 08/27/18 11:58 11:58 11:58 WBC RBC 2.66 L Hgb 8.1 L Hct 24.7 L MCV RDW 16.7 H Plt Count Lymph % (Auto) [place] % (Auto) Eos % (Auto) Baso % (Auto) Lymph # Seg Neuts % (Manual) Lymphocytes % (Manual) Monocytes % (Manual) Basophils % (Manual) Nucleated RBC % Seg Neutrophils # Man Lymphocytes # (Manual) Monocytes # (Manual) PT INR D-Dimer POC ABG pH POC ABG pCO2 POC ABG pO2 Sodium Potassium Chloride Carbon Dioxide BUN 71 H Creatinine 2.9 H Glucose POC Glucose Lactic Acid Uric Acid Calcium 7.6 L Total Bilirubin AST ALT Total Creatine Kinase CK-MB (CK-2) CK-MB (CK-2) Rel Index Troponin T C-Reactive Protein NT-Pro-B Natriuret Pep > 29305 H Total Protein 6.1 L Albumin 2.4 L LDL Cholesterol Direct Urine WBC (Auto) 08/28/18 08/28/18 08/28/18 04:38 04:49 04:49 WBC RBC 2.65 L Hgb 8.3 L Hct 25.3 L MCV 96 H RDW 17.3 H Plt Count 83 L Lymph % (Auto) [place] % (Auto) Eos % (Auto) Baso % (Auto) Lymph # Seg Neuts % (Manual) Lymphocytes % (Manual) Monocytes % (Manual) Basophils % (Manual) Nucleated RBC % Seg Neutrophils # Man Lymphocytes # (Manual) Monocytes # (Manual) PT INR D-Dimer POC ABG pH POC ABG pCO2 POC ABG pO2 112 H Sodium Potassium Chloride Carbon Dioxide BUN Creatinine Glucose POC Glucose Lactic Acid Uric Acid Calcium Total Bilirubin AST ALT Total Creatine Kinase CK-MB (CK-2) CK-MB (CK-2) Rel Index Troponin T C-Reactive Protein NT-Pro-B Natriuret Pep > 42046 H Total Protein Albumin LDL Cholesterol Direct Urine WBC (Auto) 08/28/18 08/28/18 08/29/18 04:49 14:24 00:11 WBC RBC Hgb Hct MCV RDW Plt Count Lymph % (Auto) [place] % (Auto) Eos % (Auto) Baso % (Auto) Lymph # Seg Neuts % (Manual) Lymphocytes % (Manual) Monocytes % (Manual) Basophils % (Manual) Nucleated RBC % Seg Neutrophils # Man Lymphocytes # (Manual) Monocytes # (Manual) PT INR D-Dimer POC ABG pH 7.278 L POC ABG pCO2 57.9 H POC ABG pO2 79 L Sodium Potassium Chloride Carbon Dioxide BUN 69 H Creatinine 2.4 H Glucose POC Glucose 171 H Lactic Acid Uric Acid Calcium 7.7 L Total Bilirubin AST ALT Total Creatine Kinase CK-MB (CK-2) CK-MB (CK-2) Rel Index Troponin T C-Reactive Protein NT-Pro-B Natriuret Pep Total Protein 5.4 L Albumin 2.2 L LDL Cholesterol Direct Urine WBC (Auto) 08/29/18 08/29/18 08/29/18 04:39 05:35 05:35 WBC 13.6 H RBC 3.09 L Hgb 9.4 L Hct 29.5 L MCV 96 H RDW 17.9 H Plt Count 127 L Lymph % (Auto) [place] % (Auto) Eos % (Auto) Baso % (Auto) Lymph # Seg Neuts % (Manual) Lymphocytes % (Manual) Monocytes % (Manual) Basophils % (Manual) Nucleated RBC % Seg Neutrophils # Man Lymphocytes # (Manual) Monocytes # (Manual) PT INR D-Dimer POC ABG pH 7.312 L POC ABG pCO2 57.6 H POC ABG pO2 79 L Sodium Potassium Chloride Carbon Dioxide BUN 42 H Creatinine 1.9 H Glucose 107 H POC Glucose Lactic Acid Uric Acid Calcium Total Bilirubin AST ALT Total Creatine Kinase CK-MB (CK-2) CK-MB (CK-2) Rel Index Troponin T C-Reactive Protein NT-Pro-B Natriuret Pep Total Protein Albumin LDL Cholesterol Direct Urine WBC (Auto) 08/29/18 08/29/18 08/29/18 05:48 11:37 15:32 WBC RBC Hgb Hct MCV RDW Plt Count Lymph % (Auto) [place] % (Auto) Eos % (Auto) Baso % (Auto) Lymph # Seg Neuts % (Manual) Lymphocytes % (Manual) Monocytes % (Manual) Basophils % (Manual) Nucleated RBC % Seg Neutrophils # Man Lymphocytes # (Manual) Monocytes # (Manual) PT INR D-Dimer POC ABG pH POC ABG pCO2 47.0 H POC ABG pO2 78 L Sodium Potassium Chloride Carbon Dioxide BUN Creatinine Glucose POC Glucose 114 H 116 H Lactic Acid Uric Acid Calcium Total Bilirubin AST ALT Total Creatine Kinase CK-MB (CK-2) CK-MB (CK-2) Rel Index Troponin T C-Reactive Protein NT-Pro-B Natriuret Pep Total Protein Albumin LDL Cholesterol Direct Urine WBC (Auto) 08/29/18 08/30/18 08/30/18 17:28 00:17 04:41 WBC RBC Hgb Hct MCV RDW Plt Count Lymph % (Auto) [place] % (Auto) Eos % (Auto) Baso % (Auto) Lymph # Seg Neuts % (Manual) Lymphocytes % (Manual) Monocytes % (Manual) Basophils % (Manual) Nucleated RBC % Seg Neutrophils # Man Lymphocytes # (Manual) Monocytes # (Manual) PT INR D-Dimer POC ABG pH POC ABG pCO2 48.1 H POC ABG pO2 Sodium Potassium Chloride Carbon Dioxide BUN Creatinine Glucose POC Glucose 174 H 132 H Lactic Acid Uric Acid Calcium Total Bilirubin AST ALT Total Creatine Kinase CK-MB (CK-2) CK-MB (CK-2) Rel Index Troponin T C-Reactive Protein NT-Pro-B Natriuret Pep Total Protein Albumin LDL Cholesterol Direct Urine WBC (Auto) 08/30/18 08/30/18 08/30/18 05:17 05:34 06:10 WBC RBC 2.68 L Hgb 8.2 L Hct 25.6 L MCV 96 H RDW 17.2 H Plt Count 118 L Lymph % (Auto) [place] % (Auto) Eos % (Auto) Baso % (Auto) Lymph # Seg Neuts % (Manual) Lymphocytes % (Manual) Monocytes % (Manual) Basophils % (Manual) Nucleated RBC % Seg Neutrophils # Man Lymphocytes # (Manual) Monocytes # (Manual) PT INR D-Dimer POC ABG pH POC ABG pCO2 POC ABG pO2 Sodium Potassium Chloride Carbon Dioxide BUN 54 H Creatinine 2.4 H Glucose 120 H POC Glucose 141 H Lactic Acid Uric Acid Calcium Total Bilirubin AST ALT Total Creatine Kinase CK-MB (CK-2) CK-MB (CK-2) Rel Index Troponin T C-Reactive Protein NT-Pro-B Natriuret Pep Total Protein Albumin LDL Cholesterol Direct Urine WBC (Auto) 08/30/18 08/30/18 08/30/18 13:11 18:11 23:55 WBC RBC Hgb Hct MCV RDW Plt Count Lymph % (Auto) [place] % (Auto) Eos % (Auto) Baso % (Auto) Lymph # Seg Neuts % (Manual) Lymphocytes % (Manual) Monocytes % (Manual) Basophils % (Manual) Nucleated RBC % Seg Neutrophils # Man Lymphocytes # (Manual) Monocytes # (Manual) PT INR D-Dimer POC ABG pH POC ABG pCO2 POC ABG pO2 Sodium Potassium Chloride Carbon Dioxide BUN Creatinine Glucose POC Glucose 167 H 144 H 144 H Lactic Acid Uric Acid Calcium Total Bilirubin AST ALT Total Creatine Kinase CK-MB (CK-2) CK-MB (CK-2) Rel Index Troponin T C-Reactive Protein NT-Pro-B Natriuret Pep Total Protein Albumin LDL Cholesterol Direct Urine WBC (Auto) 08/31/18 08/31/18 08/31/18 05:07 05:07 05:44 WBC RBC 2.62 L Hgb 8.1 L Hct 25.0 L MCV 96 H RDW 17.5 H Plt Count 128 L Lymph % (Auto) [place] % (Auto) Eos % (Auto) Baso % (Auto) Lymph # Seg Neuts % (Manual) Lymphocytes % (Manual) Monocytes % (Manual) Basophils % (Manual) Nucleated RBC % Seg Neutrophils # Man Lymphocytes # (Manual) Monocytes # (Manual) PT INR D-Dimer POC ABG pH POC ABG pCO2 POC ABG pO2 Sodium Potassium Chloride Carbon Dioxide BUN 58 H Creatinine 2.3 H Glucose 103 H POC Glucose 109 H Lactic Acid Uric Acid Calcium Total Bilirubin AST ALT Total Creatine Kinase CK-MB (CK-2) CK-MB (CK-2) Rel Index Troponin T C-Reactive Protein NT-Pro-B Natriuret Pep Total Protein Albumin LDL Cholesterol Direct Urine WBC (Auto) 08/31/18 08/31/18 08/31/18 11:26 13:54 19:05 WBC RBC Hgb Hct MCV RDW Plt Count Lymph % (Auto) [place] % (Auto) Eos % (Auto) Baso % (Auto) Lymph # Seg Neuts % (Manual) Lymphocytes % (Manual) Monocytes % (Manual) Basophils % (Manual) Nucleated RBC % Seg Neutrophils # Man Lymphocytes # (Manual) Monocytes # (Manual) PT INR D-Dimer POC ABG pH POC ABG pCO2 POC ABG pO2 Sodium Potassium Chloride Carbon Dioxide BUN Creatinine Glucose POC Glucose 117 H 186 H Lactic Acid Uric Acid 9.6 H Calcium Total Bilirubin AST ALT Total Creatine Kinase CK-MB (CK-2) CK-MB (CK-2) Rel Index Troponin T C-Reactive Protein NT-Pro-B Natriuret Pep Total Protein Albumin LDL Cholesterol Direct Urine WBC (Auto) 08/31/18 09/01/18 09/01/18 23:50 06:27 09:21 WBC RBC 2.74 L Hgb 8.6 L Hct 25.8 L MCV RDW 17.3 H Plt Count Lymph % (Auto) [place] % (Auto) Eos % (Auto) Baso % (Auto) Lymph # Seg Neuts % (Manual) Lymphocytes % (Manual) Monocytes % (Manual) Basophils % (Manual) Nucleated RBC % Seg Neutrophils # Man Lymphocytes # (Manual) Monocytes # (Manual) PT INR D-Dimer POC ABG pH POC ABG pCO2 POC ABG pO2 Sodium Potassium Chloride Carbon Dioxide BUN Creatinine Glucose POC Glucose 141 H 62 L Lactic Acid Uric Acid Calcium Total Bilirubin AST ALT Total Creatine Kinase CK-MB (CK-2) CK-MB (CK-2) Rel Index Troponin T C-Reactive Protein NT-Pro-B Natriuret Pep Total Protein Albumin LDL Cholesterol Direct Urine WBC (Auto) 09/01/18 09/01/18 09/01/18 09:21 12:27 17:51 WBC RBC Hgb Hct MCV RDW Plt Count Lymph % (Auto) [place] % (Auto) Eos % (Auto) Baso % (Auto) Lymph # Seg Neuts % (Manual) Lymphocytes % (Manual) Monocytes % (Manual) Basophils % (Manual) Nucleated RBC % Seg Neutrophils # Man Lymphocytes # (Manual) Monocytes # (Manual) PT INR D-Dimer POC ABG pH POC ABG pCO2 POC ABG pO2 Sodium Potassium 3.0 L D Chloride 109.8 H Carbon Dioxide BUN 45 H Creatinine 1.7 H Glucose POC Glucose 106 H 108 H Lactic Acid Uric Acid Calcium 7.1 L D Total Bilirubin AST ALT Total Creatine Kinase CK-MB (CK-2) CK-MB (CK-2) Rel Index Troponin T C-Reactive Protein NT-Pro-B Natriuret Pep Total Protein Albumin LDL Cholesterol Direct Urine WBC (Auto) 09/02/18 09/02/18 09/02/18 05:16 05:16 12:01 WBC RBC 2.60 L Hgb 8.1 L Hct 24.8 L MCV 95 H RDW 17.1 H Plt Count Lymph % (Auto) [place] % (Auto) Eos % (Auto) Baso % (Auto) Lymph # Seg Neuts % (Manual) Lymphocytes % (Manual) Monocytes % (Manual) Basophils % (Manual) Nucleated RBC % Seg Neutrophils # Man Lymphocytes # (Manual) Monocytes # (Manual) PT INR D-Dimer POC ABG pH POC ABG pCO2 POC ABG pO2 Sodium Potassium Chloride Carbon Dioxide BUN 49 H Creatinine 1.8 H Glucose 107 H POC Glucose 124 H Lactic Acid Uric Acid Calcium 8.1 L Total Bilirubin AST ALT Total Creatine Kinase CK-MB (CK-2) CK-MB (CK-2) Rel Index Troponin T C-Reactive Protein NT-Pro-B Natriuret Pep Total Protein Albumin LDL Cholesterol Direct Urine WBC (Auto) 09/02/18 09/02/18 09/03/18 18:38 23:12 08:22 WBC RBC Hgb Hct MCV RDW Plt Count Lymph % (Auto) [place] % (Auto) Eos % (Auto) Baso % (Auto) Lymph # Seg Neuts % (Manual) Lymphocytes % (Manual) Monocytes % (Manual) Basophils % (Manual) Nucleated RBC % Seg Neutrophils # Man Lymphocytes # (Manual) Monocytes # (Manual) PT INR D-Dimer POC ABG pH POC ABG pCO2 POC ABG pO2 Sodium Potassium Chloride Carbon Dioxide BUN Creatinine Glucose POC Glucose 164 H 128 H 115 H Lactic Acid Uric Acid Calcium Total Bilirubin AST ALT Total Creatine Kinase CK-MB (CK-2) CK-MB (CK-2) Rel Index Troponin T C-Reactive Protein NT-Pro-B Natriuret Pep Total Protein Albumin LDL Cholesterol Direct Urine WBC (Auto) 09/03/18 09/03/18 09/03/18 11:48 16:37 20:48 WBC RBC Hgb Hct MCV RDW Plt Count Lymph % (Auto) [place] % (Auto) Eos % (Auto) Baso % (Auto) Lymph # Seg Neuts % (Manual) Lymphocytes % (Manual) Monocytes % (Manual) Basophils % (Manual) Nucleated RBC % Seg Neutrophils # Man Lymphocytes # (Manual) Monocytes # (Manual) PT INR D-Dimer POC ABG pH POC ABG pCO2 POC ABG pO2 Sodium Potassium Chloride Carbon Dioxide BUN Creatinine Glucose POC Glucose 203 H 146 H 150 H Lactic Acid Uric Acid Calcium Total Bilirubin AST ALT Total Creatine Kinase CK-MB (CK-2) CK-MB (CK-2) Rel Index Troponin T C-Reactive Protein NT-Pro-B Natriuret Pep Total Protein Albumin LDL Cholesterol Direct Urine WBC (Auto) 09/04/18 09/04/18 09/04/18 08:29 12:08 13:32 WBC RBC Hgb Hct MCV RDW Plt Count Lymph % (Auto) [place] % (Auto) Eos % (Auto) Baso % (Auto) Lymph # Seg Neuts % (Manual) Lymphocytes % (Manual) Monocytes % (Manual) Basophils % (Manual) Nucleated RBC % Seg Neutrophils # Man Lymphocytes # (Manual) Monocytes # (Manual) PT INR D-Dimer POC ABG pH POC ABG pCO2 POC ABG pO2 Sodium 136 L Potassium Chloride Carbon Dioxide BUN 42 H Creatinine 1.6 H Glucose 180 H POC Glucose 129 H 149 H Lactic Acid Uric Acid Calcium Total Bilirubin AST ALT Total Creatine Kinase CK-MB (CK-2) CK-MB (CK-2) Rel Index Troponin T C-Reactive Protein NT-Pro-B Natriuret Pep Total Protein Albumin LDL Cholesterol Direct Urine WBC (Auto) 09/04/18 09/05/18 09/05/18 16:33 07:03 07:03 WBC RBC 2.92 L Hgb 9.1 L Hct 27.4 L MCV RDW 17.3 H Plt Count Lymph % (Auto) [place] % (Auto) Eos % (Auto) Baso % (Auto) Lymph # Seg Neuts % (Manual) 81.0 H Lymphocytes % (Manual) 7.0 L Monocytes % (Manual) 8.0 H Basophils % (Manual) Nucleated RBC % Seg Neutrophils # Man Lymphocytes # (Manual) 0.5 L Monocytes # (Manual) PT INR D-Dimer POC ABG pH POC ABG pCO2 POC ABG pO2 Sodium Potassium Chloride Carbon Dioxide BUN 40 H Creatinine Glucose 153 H POC Glucose 165 H Lactic Acid Uric Acid Calcium Total Bilirubin AST ALT Total Creatine Kinase CK-MB (CK-2) CK-MB (CK-2) Rel Index Troponin T C-Reactive Protein NT-Pro-B Natriuret Pep Total Protein Albumin LDL Cholesterol Direct Urine WBC (Auto) 09/05/18 09/05/18 09/05/18 08:00 11:51 21:20 WBC RBC Hgb Hct MCV RDW Plt Count Lymph % (Auto) [place] % (Auto) Eos % (Auto) Baso % (Auto) Lymph # Seg Neuts % (Manual) Lymphocytes % (Manual) Monocytes % (Manual) Basophils % (Manual) Nucleated RBC % Seg Neutrophils # Man Lymphocytes # (Manual) Monocytes # (Manual) PT INR D-Dimer POC ABG pH POC ABG pCO2 POC ABG pO2 Sodium Potassium Chloride Carbon Dioxide BUN Creatinine Glucose POC Glucose 146 H 207 H 114 H Lactic Acid Uric Acid Calcium Total Bilirubin AST ALT Total Creatine Kinase CK-MB (CK-2) CK-MB (CK-2) Rel Index Troponin T C-Reactive Protein NT-Pro-B Natriuret Pep Total Protein Albumin LDL Cholesterol Direct Urine WBC (Auto) 09/06/18 09/06/18 09/06/18 06:42 06:42 11:38 WBC RBC 2.90 L Hgb 9.0 L Hct 27.0 L MCV RDW 17.4 H Plt Count 130 L Lymph % (Auto) [place] % (Auto) Eos % (Auto) Baso % (Auto) Lymph # Seg Neuts % (Manual) 79.0 H Lymphocytes % (Manual) 6.0 L Monocytes % (Manual) 12.0 H Basophils % (Manual) 2.0 H Nucleated RBC % Seg Neutrophils # Man Lymphocytes # (Manual) 0.3 L Monocytes # (Manual) PT INR D-Dimer POC ABG pH POC ABG pCO2 POC ABG pO2 Sodium 136 L Potassium Chloride Carbon Dioxide BUN 39 H Creatinine Glucose 106 H POC Glucose 265 H Lactic Acid Uric Acid Calcium Total Bilirubin AST ALT Total Creatine Kinase CK-MB (CK-2) CK-MB (CK-2) Rel Index Troponin T C-Reactive Protein NT-Pro-B Natriuret Pep Total Protein Albumin LDL Cholesterol Direct Urine WBC (Auto) 09/06/18 09/06/18 09/07/18 16:37 20:55 05:12 WBC RBC 2.80 L Hgb 8.7 L Hct 26.5 L MCV 95 H RDW 17.7 H Plt Count Lymph % (Auto) 13.3 L [place] % (Auto) 14.2 H Eos % (Auto) Baso % (Auto) 1.9 H Lymph # 0.7 L Seg Neuts % (Manual) Lymphocytes % (Manual) Monocytes % (Manual) Basophils % (Manual) Nucleated RBC % Seg Neutrophils # Man Lymphocytes # (Manual) Monocytes # (Manual) PT INR D-Dimer POC ABG pH POC ABG pCO2 POC ABG pO2 Sodium Potassium Chloride Carbon Dioxide BUN Creatinine Glucose POC Glucose 131 H 135 H Lactic Acid Uric Acid Calcium Total Bilirubin AST ALT Total Creatine Kinase CK-MB (CK-2) CK-MB (CK-2) Rel Index Troponin T C-Reactive Protein NT-Pro-B Natriuret Pep Total Protein Albumin LDL Cholesterol Direct Urine WBC (Auto) 09/07/18 09/07/18 09/07/18 05:12 11:28 15:32 WBC RBC Hgb Hct MCV RDW Plt Count Lymph % (Auto) [place] % (Auto) Eos % (Auto) Baso % (Auto) Lymph # Seg Neuts % (Manual) Lymphocytes % (Manual) Monocytes % (Manual) Basophils % (Manual) Nucleated RBC % Seg Neutrophils # Man Lymphocytes # (Manual) Monocytes # (Manual) PT INR D-Dimer POC ABG pH POC ABG pCO2 POC ABG pO2 Sodium Potassium Chloride Carbon Dioxide BUN 36 H Creatinine Glucose POC Glucose 176 H 131 H Lactic Acid Uric Acid Calcium Total Bilirubin AST ALT Total Creatine Kinase CK-MB (CK-2) CK-MB (CK-2) Rel Index Troponin T C-Reactive Protein NT-Pro-B Natriuret Pep Total Protein Albumin LDL Cholesterol Direct Urine WBC (Auto) 09/07/18 09/08/18 09/08/18 21:50 05:23 05:23 WBC RBC 2.72 L Hgb 8.5 L Hct 26.9 L MCV 99 H RDW 18.0 H Plt Count 136 L Lymph % (Auto) 13.1 L [place] % (Auto) 15.7 H Eos % (Auto) Baso % (Auto) 1.9 H Lymph # 0.7 L Seg Neuts % (Manual) Lymphocytes % (Manual) Monocytes % (Manual) Basophils % (Manual) Nucleated RBC % Seg Neutrophils # Man Lymphocytes # (Manual) Monocytes # (Manual) PT INR D-Dimer POC ABG pH POC ABG pCO2 POC ABG pO2 Sodium 134 L Potassium 5.2 H Chloride Carbon Dioxide BUN 36 H Creatinine Glucose POC Glucose 160 H Lactic Acid Uric Acid Calcium Total Bilirubin AST ALT Total Creatine Kinase CK-MB (CK-2) CK-MB (CK-2) Rel Index Troponin T C-Reactive Protein NT-Pro-B Natriuret Pep Total Protein Albumin LDL Cholesterol Direct Urine WBC (Auto) 09/08/18 09/08/18 09/09/18 12:33 16:57 05:52 WBC RBC 2.64 L Hgb 8.1 L Hct 25.2 L MCV 95 H RDW 17.8 H Plt Count Lymph % (Auto) [place] % (Auto) 14.3 H Eos % (Auto) Baso % (Auto) 1.9 H Lymph # 0.6 L Seg Neuts % (Manual) Lymphocytes % (Manual) Monocytes % (Manual) Basophils % (Manual) Nucleated RBC % Seg Neutrophils # Man Lymphocytes # (Manual) Monocytes # (Manual) PT INR D-Dimer POC ABG pH POC ABG pCO2 POC ABG pO2 Sodium Potassium Chloride Carbon Dioxide BUN Creatinine Glucose POC Glucose 198 H 195 H Lactic Acid Uric Acid Calcium Total Bilirubin AST ALT Total Creatine Kinase CK-MB (CK-2) CK-MB (CK-2) Rel Index Troponin T C-Reactive Protein NT-Pro-B Natriuret Pep Total Protein Albumin LDL Cholesterol Direct Urine WBC (Auto) 09/09/18 09/09/18 09/09/18 05:52 11:50 16:28 WBC RBC Hgb Hct MCV RDW Plt Count Lymph % (Auto) [place] % (Auto) Eos % (Auto) Baso % (Auto) Lymph # Seg Neuts % (Manual) Lymphocytes % (Manual) Monocytes % (Manual) Basophils % (Manual) Nucleated RBC % Seg Neutrophils # Man Lymphocytes # (Manual) Monocytes # (Manual) PT INR D-Dimer POC ABG pH POC ABG pCO2 POC ABG pO2 Sodium 136 L Potassium Chloride Carbon Dioxide BUN 34 H Creatinine Glucose POC Glucose 122 H 170 H Lactic Acid Uric Acid Calcium 8.1 L Total Bilirubin AST ALT Total Creatine Kinase CK-MB (CK-2) CK-MB (CK-2) Rel Index Troponin T C-Reactive Protein NT-Pro-B Natriuret Pep Total Protein Albumin LDL Cholesterol Direct Urine WBC (Auto) 09/09/18 09/10/18 09/10/18 22:02 05:09 05:09 WBC 3.9 L RBC 2.63 L Hgb 8.2 L Hct 25.0 L MCV 95 H RDW 17.4 H Plt Count Lymph % (Auto) [place] % (Auto) 15.9 H Eos % (Auto) Baso % (Auto) 2.0 H Lymph # 0.6 L Seg Neuts % (Manual) Lymphocytes % (Manual) Monocytes % (Manual) Basophils % (Manual) Nucleated RBC % Seg Neutrophils # Man Lymphocytes # (Manual) Monocytes # (Manual) PT INR D-Dimer POC ABG pH POC ABG pCO2 POC ABG pO2 Sodium Potassium 5.1 H Chloride Carbon Dioxide BUN 31 H Creatinine Glucose 106 H POC Glucose 144 H Lactic Acid Uric Acid Calcium 8.3 L Total Bilirubin AST ALT Total Creatine Kinase CK-MB (CK-2) CK-MB (CK-2) Rel Index Troponin T C-Reactive Protein NT-Pro-B Natriuret Pep Total Protein Albumin LDL Cholesterol Direct Urine WBC (Auto) 09/10/18 09/10/18 09/10/18 13:09 17:07 21:13 WBC RBC Hgb Hct MCV RDW Plt Count Lymph % (Auto) [place] % (Auto) Eos % (Auto) Baso % (Auto) Lymph # Seg Neuts % (Manual) Lymphocytes % (Manual) Monocytes % (Manual) Basophils % (Manual) Nucleated RBC % Seg Neutrophils # Man Lymphocytes # (Manual) Monocytes # (Manual) PT INR D-Dimer POC ABG pH POC ABG pCO2 POC ABG pO2 Sodium Potassium Chloride Carbon Dioxide BUN Creatinine Glucose POC Glucose 134 H 117 H 154 H Lactic Acid Uric Acid Calcium Total Bilirubin AST ALT Total Creatine Kinase CK-MB (CK-2) CK-MB (CK-2) Rel Index Troponin T C-Reactive Protein NT-Pro-B Natriuret Pep Total Protein Albumin LDL Cholesterol Direct Urine WBC (Auto) 09/11/18 09/11/18 09/11/18 06:00 06:00 09:11 WBC 3.5 L RBC 2.41 L Hgb 7.4 L Hct 23.0 L MCV 96 H RDW 18.1 H Plt Count Lymph % (Auto) [place] % (Auto) 15.3 H Eos % (Auto) 5.2 H Baso % (Auto) 2.6 H Lymph # 0.6 L Seg Neuts % (Manual) Lymphocytes % (Manual) Monocytes % (Manual) Basophils % (Manual) Nucleated RBC % Seg Neutrophils # Man Lymphocytes # (Manual) Monocytes # (Manual) PT INR D-Dimer POC ABG pH POC ABG pCO2 POC ABG pO2 Sodium Potassium 5.4 H Chloride Carbon Dioxide BUN 30 H Creatinine Glucose 108 H POC Glucose 124 H Lactic Acid Uric Acid Calcium Total Bilirubin AST ALT Total Creatine Kinase CK-MB (CK-2) CK-MB (CK-2) Rel Index Troponin T C-Reactive Protein NT-Pro-B Natriuret Pep Total Protein Albumin LDL Cholesterol Direct Urine WBC (Auto) 09/11/18 09/11/18 09/11/18 12:06 16:18 21:26 WBC RBC Hgb Hct MCV RDW Plt Count Lymph % (Auto) [place] % (Auto) Eos % (Auto) Baso % (Auto) Lymph # Seg Neuts % (Manual) Lymphocytes % (Manual) Monocytes % (Manual) Basophils % (Manual) Nucleated RBC % Seg Neutrophils # Man Lymphocytes # (Manual) Monocytes # (Manual) PT INR D-Dimer POC ABG pH POC ABG pCO2 POC ABG pO2 Sodium Potassium Chloride Carbon Dioxide BUN Creatinine Glucose POC Glucose 144 H 138 H 163 H Lactic Acid Uric Acid Calcium Total Bilirubin AST ALT Total Creatine Kinase CK-MB (CK-2) CK-MB (CK-2) Rel Index Troponin T C-Reactive Protein NT-Pro-B Natriuret Pep Total Protein Albumin LDL Cholesterol Direct Urine WBC (Auto) 09/12/18 09/12/18 09/12/18 09:17 09:17 11:16 WBC 4.0 L RBC 2.62 L Hgb 8.1 L Hct 25.0 L MCV 96 H RDW 17.8 H Plt Count Lymph % (Auto) [place] % (Auto) Eos % (Auto) Baso % (Auto) Lymph # Seg Neuts % (Manual) Lymphocytes % (Manual) Monocytes % (Manual) Basophils % (Manual) Nucleated RBC % Seg Neutrophils # Man Lymphocytes # (Manual) Monocytes # (Manual) PT INR D-Dimer POC ABG pH POC ABG pCO2 POC ABG pO2 Sodium Potassium 5.3 H Chloride Carbon Dioxide BUN 27 H Creatinine Glucose 113 H POC Glucose 147 H Lactic Acid Uric Acid Calcium Total Bilirubin AST ALT Total Creatine Kinase CK-MB (CK-2) CK-MB (CK-2) Rel Index Troponin T C-Reactive Protein NT-Pro-B Natriuret Pep Total Protein Albumin LDL Cholesterol Direct Urine WBC (Auto) 09/12/18 15:31 WBC RBC Hgb Hct MCV RDW Plt Count Lymph % (Auto) [place] % (Auto) Eos % (Auto) Baso % (Auto) Lymph # Seg Neuts % (Manual) Lymphocytes % (Manual) Monocytes % (Manual) Basophils % (Manual) Nucleated RBC % Seg Neutrophils # Man Lymphocytes # (Manual) Monocytes # (Manual) PT INR D-Dimer POC ABG pH POC ABG pCO2 POC ABG pO2 Sodium Potassium Chloride Carbon Dioxide BUN Creatinine Glucose POC Glucose 126 H Lactic Acid Uric Acid Calcium Total Bilirubin AST ALT Total Creatine Kinase CK-MB (CK-2) CK-MB (CK-2) Rel Index Troponin T C-Reactive Protein NT-Pro-B Natriuret Pep Total Protein Albumin LDL Cholesterol Direct Urine WBC (Auto) Allied health notes reviewed: RT
[2018-09-12] MEDS: SODIUM CHLORIDE FLUSH SYRINGE 10 ML IV SCH ×2 (19:03→23:08)
[2018-09-13] MEDS: BENADRYL PO PRN (01:50)
[2018-09-13] MEDS: HumaLOG SUB-Q SCH ×4 (07:00→21:38)
[2018-09-13 07:35] LABS: Hematocrit 23.7 % (35.5-45.6); Hemoglobin 7.7 gm/dl (11.8-15.2); Mean Corpuscular HGB Conc 33 % (32-34); Mean Corpuscular Hemoglobin 31 pg (28-32); Mean Corpuscular Volume 95 fl (84-94); Platelet Count 178 K/mm3 (140-440); Red Blood Count 2.49 M/mm3 (3.65-5.03); Red Cell Distribution Width 17.4 % (13.2-15.2)
[2018-09-13 08:00] LABS: Calcium 8.5 mg/dL (8.4-10.2)
[2018-09-13] MEDS: BROVANA NEBU IH SCH ×2 (08:13→20:47)
[2018-09-13] MEDS: PULMICORT IH SCH ×2 (08:13→20:47)
[2018-09-13] MEDS: DUONEB *Not for PRN Use IH SCH ×2 (08:14→20:48)
[2018-09-13] MEDS ORDERED: D50W (25GM) Vial IV STA (09:25)
--- NOTE | 2018-09-13 09:26 | Progress Note ---
Assessment and Plan Assessment and plan: Acute on chronic respiratory failure. Etiology secondary to COPD exacerbation. Continue O2 and nebulizers. Improving. Acute kidney injury on CKD stage III. Off hemodialysis now. Creatinine remained stable despite off hemodialysis. Acute COPD exacerbation. We'll continue nebulizers, antibiotics and O2 continuously. Also prednisone at discharge. Patient doing well. [facility]wait[facility] [place] Hyperkalemia. recheck in am Pneumonia may be gram-negative nini continue current antibiotics per ID. Sepsis. Improved. Leukocytosis resolved. Pulseless electrical activity status post cardiorespiratory arrest. Cont. beta renetta and aspirin. Supportive care. Seizure disorder. EEG Normal Morbid obesity. supportive care Disposition. Awaiting shelter placement. stable to transfer to [facility]. History Interval history: Feels better No shortness of breath currently Hospitalist Physical - Physical exam Narrative exam: Gen: Not in acute distress, lying in bed, morbidly obese HEENT: Normocephalic, atraumatic Neck: supple, no JVD Heart: S1 and S2 reg, no murmurs, rubs or gallop Lungs: Decreased breath sounds, no crackles or wheeze Abd: soft, non tender, non distended, normal BS Ext: No edema, no clubbing, no cyanosis Neuro:awake,alert, Oriented X 3. No focal signs - Constitutional Vitals: Temp Pulse Resp BP Pulse Ox 98.1 F 99 H 20 145/85 95 09/13/18 08:10 09/13/18 08:24 09/13/18 08:24 09/13/18 08:10 09/13/18 09:04 General appearance: Present: no acute distress, other (intubated, chronically ill appearing) Results - Labs CBC & Chem 7: 09/13/18 06:48 09/13/18 06:48 Labs: Laboratory Last Values WBC 3.7 K/mm3 (4.5-11.0) L 09/13/18 06:48 RBC 2.49 M/mm3 (3.65-5.03) L 09/13/18 06:48 Hgb 7.7 gm/dl (11.8-15.2) L 09/13/18 06:48 Hct 23.7 % (35.5-45.6) L 09/13/18 06:48 MCV 95 fl (84-94) H 09/13/18 06:48 MCH 31 pg (28-32) 09/13/18 06:48 MCHC 33 % (32-34) 09/13/18 06:48 RDW 17.4 % (13.2-15.2) H 09/13/18 06:48 Plt Count 178 K/mm3 (140-440) 09/13/18 06:48 Lymph % (Auto) 16.1 % (13.4-35.0) 09/11/18 06:00 Gray % (Auto) 15.3 % (0.0-7.3) H 09/11/18 06:00 Eos % (Auto) 5.2 % (0.0-4.3) H 09/11/18 06:00 Baso % (Auto) 2.6 % (0.0-1.8) H 09/11/18 06:00 Lymph # 0.6 K/mm3 (1.2-5.4) L 09/11/18 06:00 Gray # 0.5 K/mm3 (0.0-0.8) 09/11/18 06:00 Eos # 0.2 K/mm3 (0.0-0.4) 09/11/18 06:00 Baso # 0.1 K/mm3 (0.0-0.1) 09/11/18 06:00 Add Manual Diff Complete 09/06/18 06:42 Total Counted 100 09/06/18 06:42 Seg Neutrophils % 60.8 % (40.0-70.0) 09/11/18 06:00 Seg Neuts % (Manual) 79.0 % (40.0-70.0) H 09/06/18 06:42 0 % 09/06/18 06:42 6.0 % (13.4-35.0) L 09/06/18 06:42 Reactive Lymphs % (Man) 0 % 09/06/18 06:42 12.0 % (0.0-7.3) H 09/06/18 06:42 1.0 % (0.0-4.3) 09/06/18 06:42 2.0 % (0.0-1.8) H 09/06/18 06:42 0 % 09/06/18 06:42 0 % 09/06/18 06:42 0 % 09/06/18 06:42 0 % 09/06/18 06:42 Nucleated RBC % Not Reportable 09/06/18 06:42 Seg Neutrophils # 2.1 K/mm3 (1.8-7.7) 09/11/18 06:00 Seg Neutrophils # Man 3.9 K/mm3 (1.8-7.7) 09/06/18 06:42 Band Neutrophils # 0.0 K/mm3 09/06/18 06:42 0.3 K/mm3 (1.2-5.4) L 09/06/18 06:42 Abs React Lymphs (Man) 0.0 K/mm3 09/06/18 06:42 0.6 K/mm3 (0.0-0.8) 09/06/18 06:42 0.0 K/mm3 (0.0-0.4) 09/06/18 06:42 0.1 K/mm3 (0.0-0.1) 09/06/18 06:42 0.0 K/mm3 09/06/18 06:42 0.0 K/mm3 09/06/18 06:42 0.0 K/mm3 09/06/18 06:42 Blast Cells # 0.0 K/mm3 09/06/18 06:42 WBC Morphology Not Reportable 09/06/18 06:42 Hypersegmented Neuts Not Reportable 09/06/18 06:42 Hyposegmented Neuts Not Reportable 09/06/18 06:42 Hypogranular Neuts Not Reportable 09/06/18 06:42 Not Reportable 09/06/18 06:42 Not Reportable 09/06/18 06:42 Not Reportable 09/06/18 06:42 Not Reportable 09/06/18 06:42 Not Reportable 09/06/18 06:42 Not Reportable 09/06/18 06:42 Consistent w auto 09/06/18 06:42 Not Reportable 09/06/18 06:42 Plt Clumps, EDTA Not Reportable 09/06/18 06:42 Not Reportable 09/06/18 06:42 Not Reportable 09/06/18 06:42 Not Reportable 09/06/18 06:42 Plt Morphology Comment Not Reportable 09/06/18 06:42 RBC Morphology Not Reportable 09/06/18 06:42 Dimorphic RBCs Not Reportable 09/06/18 06:42 Not Reportable 09/06/18 06:42 Not Reportable 09/06/18 06:42 Not Reportable 09/06/18 06:42 1+ 09/06/18 06:42 Not Reportable 09/06/18 06:42 1+ 09/06/18 06:42 Not Reportable 09/06/18 06:42 Not Reportable 09/06/18 06:42 Not Reportable 09/06/18 06:42 Not Reportable 09/06/18 06:42 Not Reportable 09/06/18 06:42 Not Reportable 09/06/18 06:42 Not Reportable 09/06/18 06:42 Not Reportable 09/06/18 06:42 Not Reportable 09/06/18 06:42 Not Reportable 09/06/18 06:42 Not Reportable 09/06/18 06:42 Not Reportable 09/06/18 06:42 Not Reportable 09/06/18 06:42 Acanthocytes (Spur) Not Reportable 09/06/18 06:42 Rouleaux Not Reportable 09/06/18 06:42 Not Reportable 09/06/18 06:42 Not Reportable 09/06/18 06:42 Not Reportable 09/06/18 06:42 Not Reportable 09/06/18 06:42 Hem Pathologist Commnt No 09/06/18 06:42 PT 15.6 Sec. (12.2-14.9) H 08/25/18 16:43 INR 1.27 (0.87-1.13) H 08/25/18 16:43 APTT 30.8 Sec. (24.2-36.6) 08/21/18 04:42 1978.25 ng/mlDDU (0-234) H 08/24/18 13:41 POC ABG pH 7.410 (7.35-7.45) 08/30/18 13:35 POC ABG pCO2 41.4 (35-45) 08/30/18 13:35 POC ABG pO2 99 (80-105) 08/30/18 13:35 POC ABG HCO3 26.2 (22-26 mml/L) 08/30/18 13:35 POC ABG Total CO2 27 (23-27mmol/L) 08/30/18 13:35 POC ABG O2 Sat 98 08/30/18 13:35 POC ABG Base Excess 2 ((-2) - (+3)mmol/L) 08/30/18 13:35 30 % 08/30/18 13:35 Sodium 137 mmol/L (137-145) 09/13/18 06:48 Potassium 5.5 mmol/L (3.6-5.0) H 09/13/18 06:48 Chloride 102.9 mmol/L (98-107) 09/13/18 06:48 Carbon Dioxide 24 mmol/L (22-30) 09/13/18 06:48 16 mmol/L 09/13/18 06:48 BUN 25 mg/dL (9-20) H 09/13/18 06:48 1.4 mg/dL (0.8-1.5) 09/13/18 06:48 Estimated GFR 50 ml/min 09/13/18 06:48 18 % 09/13/18 06:48 Glucose 106 mg/dL (75-100) H 09/13/18 06:48 POC Glucose 100 (70-105) 09/13/18 08:15 317 Mosm/kg 08/31/18 13:54 Lactic Acid 1.30 mmol/L (0.7-2.0) 08/21/18 20:50 9.6 mg/dL (3.5-7.6) H 08/31/18 13:54 Calcium 8.5 mg/dL (8.4-10.2) 09/13/18 06:48 Magnesium 2.00 mg/dL (1.7-2.3) 09/02/18 05:16 0.60 mg/dL (0.1-1.2) 08/28/18 04:49 AST 27 units/L (5-40) 08/28/18 04:49 ALT 12 units/L (7-56) 08/28/18 04:49 87 units/L (35-129) 08/28/18 04:49 222 units/L (55-170) H 08/21/18 10:45 CK-MB (CK-2) 9.2 ng/mL (0.0-4.0) H 08/21/18 10:45 CK-MB (CK-2) Rel Index 4.1 (0-4) H 08/21/18 10:45 0.020 ng/mL (0.00-0.029) 09/08/18 09:06 9.00 mg/dL (0.00-1.30) H 08/24/18 13:41 NT-Pro-B Natriuret Pep > 92930 pg/mL (0-900) H 08/28/18 04:49 5.4 g/dL (6.3-8.2) L 08/28/18 04:49 2.2 g/dL (3.9-5) L 08/28/18 04:49 0.7 % 08/28/18 04:49 Triglycerides 87 mg/dL (2-149) 08/21/18 04:42 Cholesterol 93 mg/dL (50-199) 08/21/18 04:42 44 mg/dL (50-130) L 08/21/18 04:42 41 mg/dL (40-59) 08/21/18 04:42 2.26 % 08/21/18 04:42 Yellow (Yellow) 08/21/18 15:03 Slightly-cloudy (Clear) 08/21/18 15:03 5.0 (5.0-7.0) 08/21/18 15:03 Ur Specific [place] 1.015 (1.003-1.030) 08/21/18 15:03 30 mg/dl mg/dL (Negative) 08/21/18 15:03 Neg mg/dL (Negative) 08/21/18 15:03 Neg mg/dL (Negative) 08/21/18 15:03 Mod (Negative) 08/21/18 15:03 Neg (Negative) 08/21/18 15:03 Neg (Negative) 08/21/18 15:03 < 2.0 mg/dL (<2.0) 08/21/18 15:03 Ur Leukocyte Esterase Tr (Negative) 08/21/18 15:03 13.0 /HPF (0.0-6.0) H 08/21/18 15:03 15.0 /HPF (0.0-6.0) 08/21/18 15:03 U Epithel Cells (Auto) 1.0 /HPF (0-13.0) 08/21/18 15:03 1+ /HPF (Negative) 08/21/18 15:03 Few /HPF 08/21/18 15:03 Random Vancomycin 10.5 ug/mL (0-40.0) 08/26/18 05:53 Levetiracetam 25.7 mcg/mL (12.0-46.0) 08/26/18 13:42 Hepatitis A IgM Ab Non-reactive (NonReactive) 08/27/18 23:25 Hep Bs Antigen Non-reactive (Negative) 08/27/18 23:25 Hep B Core IgM Ab Non-reactive (NonReactive) 08/27/18 23:25 Non-reactive (NonReactive) 08/27/18 23:25 Active Medications - Current Medications Current Medications: Generic Name Dose Route Start Last Admin Trade Name Freq PRN Reason Stop Dose Admin Acetaminophen 650 mg 08/21/18 06:31 09/01/18 21:12 Tylenol PO 650 mg Q4H PRN Administration Pain MILD(1-3)/Fever >100.5/COOK Albuterol/Ipratropium 1 ampul 08/24/18 20:00 09/13/18 08:14 Duoneb *Not For Prn Use* IH Not Given BIDRT LUIS Lipase/Protease/Amylase 1 each 08/26/18 12:07 Pancreamaris [place] 10,500 Unit FEEDTUBE PRN PRN For Clogged Feeding Tube Arformoterol Tartrate 15 mcg 08/24/18 20:00 09/13/18 08:13 Brovana Nebu IH 15 mcg Q12HRT LUIS Administration Bisacodyl 10 mg 09/02/18 12:42 Dulcolax [place] QDAY PRN Constipation Budesonide 0.5 mg 08/24/18 20:00 09/13/18 08:13 Pulmicort IH 0.5 mg Q12HRT LUIS Administration Dextrose 50 ml 08/21/18 06:48 D50w (25gm) Syringe IV PRN PRN Hypoglycemia Dextrose 25 gm 09/13/18 09:25 D50w (25gm) Vial IV 09/13/18 09:26 ONCE STA Diphenhydramine HCl 25 mg 09/11/18 06:07 09/13/18 01:50 Benadryl PO 25 mg Q6H PRN Administration Itching Heparin Sodium (Porcine) 5,000 unit 08/22/18 10:00 09/12/18 23:02 Heparin SUB-Q 5,000 unit Q12HR LUIS Administration Hydralazine HCl 50 mg 09/08/18 10:00 09/12/18 23:02 Apresoline PO 50 mg BID LUIS Administration Insulin Human Lispro 0 unit 08/31/18 22:00 09/12/18 22:53 Humalog SUB-Q Not Given ACHS REPLACED BY [facility] Protocol Insulin Human Regular 10 units 09/13/18 09:24 Humulin R IV 09/13/18 09:25 ONCE STA Levetiracetam 750 mg 09/04/18 22:00 09/12/18 23:02 Keppra PO 750 mg BID LUIS Administration Metoclopramide HCl 10 mg 09/05/18 18:35 09/10/18 03:02 Reglan IV 10 mg Q6H PRN Administration Nausea And Vomiting Morphine Sulfate 2 mg 08/26/18 14:24 08/30/18 01:40 Morphine IV 2 mg Q6H PRN Administration Pain, Moderate (4-6) Ondansetron HCl 4 mg 08/21/18 06:31 Zofran IV Q8H PRN Nausea And Vomiting Sodium Chloride 10 ml 08/21/18 10:00 09/12/18 23:08 Sodium Chloride Flush Syringe 10 Ml IV 10 ml BID LUIS Administration Sodium Polystyrene Sulfonate 30 gm 09/13/18 10:00 Kionex PO 09/13/18 12:01 Q6HR LUIS Zolpidem Tartrate 5 mg 09/09/18 00:19 09/12/18 23:02 Ambien PO 5 mg QHS PRN Administration Sleep Nutrition/Malnutrition Assess - Dietary Evaluation Nutrition/Malnutrition Findings: Nutrition Notes Start: 08/21/18 16:58 Freq: Status: Active Protocol: Document 09/12/18 14:04 RM (Rec: 09/12/18 14:12 RM [id number]) Nutrition Notes Initial or Follow up Reassessment Current Diagnosis CKD(stage I-IV),Diabetes, Sepsis,Heart Failure Other Pertinent Diagnosis COPD exacerbation, pneu, s/p cardiac arrest Current Diet Cardiac/Consistent CHO Labs/Tests Reviewed Pertinent Medications Reviewed Height 5 ft 6 in Weight 138.1 kg [place] Body Weight (kg) 64.54 BMI 49.1 Weight change and time frame Current wt obtained from [facility]. Wt loss possibly d/t fluid change Subjective/Other Information Glucerna no longer in diet order. Pt stated that he eats 1/3 to 50% of his meals. Stated that he was drinking the Glucerna previously but has not received any the past few days. [employer] brought pt 2 Glucerna. Burn Absent Trauma Absent #1 Nutrition Diagnosis Inadequate oral intake Diagnosis Progress(for reassessment Continues documentation) Is patient on ventilator? No Is Patient Ambulatory and/or Out of Bed No REE-([facility]-confined to bed) 2493.756 Kcal/Kg value to use for calculation 12 Approximate Energy Requirements Using 1657 kcal/Kg Calculation Used for Recommendations Kcal/kg Additional Notes Pro needs 1-1.2g/kg adjBW: 105-127g/day Fluid needs 1ml/kcal Nutrition Intervention Change Diet Order: Continue current Add Supplement/Snack (indicate name/kcal Glucerna Chocolate, [place] /protein ) BID Provides kCal: 440 Provides Protein (gm) 20 Goal #1 Meet at least 75% of kcal and protein needs via PO intakes Anticipated Discharge Needs: Cardiac/Consistent CHO Follow-Up By: 09/18/18 Additional Comments Follow for PO and ONS intakes
[2018-09-13] MEDS ORDERED: D50W (25GM) Syringe IV ONE (10:00)
[2018-09-13] MEDS: HumuLIN R IV ONE ×2 (10:46→11:17)
[2018-09-13] MEDS: APRESOLINE PO SCH ×2 (10:51→21:43)
[2018-09-13] MEDS: KEPPRA PO SCH ×2 (10:51→21:42)
[2018-09-13] MEDS: HEPARIN SUB-Q SCH ×2 (10:52→21:43)
[2018-09-13] MEDS: KIONEX PO SCH ×2 (11:17→17:28)
[2018-09-13] MEDS: SODIUM CHLORIDE FLUSH SYRINGE 10 ML IV SCH ×2 (11:18→21:44)
--- NOTE | 2018-09-13 16:10 | Progress Note ---
Assessment and Plan Patient is awake and resting on CPAP with 2 litres O2. O2 saturation is 99%. No acute respiratory distress. Patient is afebrile. No leukocytosis. - Patient Problems (1) COPD (chronic obstructive pulmonary disease) Current Visit: Yes Status: Acute Plan to address problem: CPAP with 2 litres O2. 2 litres O2 when he is not on BIPAP. Albuterol and atrovent aeorosol treatment q6 hours PRN for shortness of breath. Brovanna/ budesonide aeorsol treatment q 12 hours continue subq heparin. Patient is on reglan. (2) Acute on chronic respiratory failure Current Visit: Yes Status: Acute Plan to address problem: CPAP with 2 litres O2. 2 litres O2 when she is on BIPAP. Albuterol and atrovent aeorosol treatment q6 hours PRN for shortness of breath. Brovanna/ budesonide aeorsol treatment q 12 hours continue subq heparin. Patient is on reglan. (3) Acute HFrEF (heart failure with reduced ejection fraction) Current Visit: Yes Status: Resolved Plan to address problem: Management as per cardiology. (4) Acute renal failure Current Visit: Yes Status: Acute Plan to address problem: Management as per Nephrology. (5) Altered mental status Current Visit: Yes Status: Acute Plan to address problem: Management as per primary care and neurology. (6) Bacteremia due to coagulase-negative Staphylococcus Current Visit: Yes Status: Acute Plan to address problem: management as per infectious diseases. (7) Anemia Current Visit: Yes Status: Acute Plan to address problem: Management as per primary care. Subjective Date of service: 09/13/18 Principal diagnosis: s/p cardiac arrest; severe sepsis; acute hypoxemic- hypercapnic resp failure Interval history: Patient is awake and resting on CPAP with 2 litres O2. O2 saturation is 99%. No acute respiratory distress. Patient is afebrile. No leukocytosis. Objective Vital Signs - 12hr 09/13/18 09/13/18 09/13/18 05:26 05:27 08:10 Temperature 97.4 F L 98.1 F Pulse Rate 114 H 60 Pulse Rate [ Anterior Bilateral Throughout] Pulse Rate [ Apical] Pulse Rate [ From Monitor] Respiratory 20 18 Rate Respiratory Rate [Anterior Bilateral Throughout] Blood Pressure 144/65 145/85 O2 Sat by Pulse 97 83 L Oximetry 09/13/18 09/13/18 09/13/18 08:14 08:24 09:04 Temperature Pulse Rate Pulse Rate [ 97 H 99 H Anterior Bilateral Throughout] Pulse Rate [ Apical] Pulse Rate [ From Monitor] Respiratory Rate Respiratory 20 20 Rate [Anterior Bilateral Throughout] Blood Pressure O2 Sat by Pulse 95 Oximetry 09/13/18 09/13/18 09/13/18 10:00 10:51 12:47 Temperature 97.5 F L Pulse Rate 117 H 99 H 54 L Pulse Rate [ Anterior Bilateral Throughout] Pulse Rate [ 104 H Apical] Pulse Rate [ 92 H From Monitor] Respiratory 20 18 Rate Respiratory Rate [Anterior Bilateral Throughout] Blood Pressure 145/85 156/67 O2 Sat by Pulse 95 99 Oximetry Constitutional: no acute distress, alert Eyes: non-icteric ENT: oropharynx moist, other Neck: supple, no JVD, other (short neck) Effort: mildly labored Ascultation: Bilateral: diminished breath sounds, rhonchi (coarse BS bilaterally) Percussion: Bilateral: not dull Cardiovascular: regular rate and rhythm, other (S1,S2, no murmurs, no gallops or rubs) Gastrointestinal: normoactive bowel sounds, soft, non-tender, non-distended, other (Madison catheter in place, clear urine) Integumentary: normal, other (right femoral HD catheter) Extremities: no cyanosis, no edema, pink and warm, pulses normal, no ischemia or petechiae Neurologic: non-focal exam (grossly), pupils equal and round, motor strength normal and, other (awake and alert, obeying one step commands) Psychiatric: mood appropriate, affect normal CBC and BMP: 09/13/18 06:48 09/13/18 06:48 ABG, PT/INR, D-dimer: ABG POC ABG pH 7.410 (7.35-7.45) 08/30/18 13:35 POC ABG pCO2 41.4 (35-45) 08/30/18 13:35 POC ABG pO2 99 (80-105) 08/30/18 13:35 POC ABG HCO3 26.2 (22-26 mml/L) 08/30/18 13:35 POC ABG Total CO2 27 (23-27mmol/L) 08/30/18 13:35 POC ABG O2 Sat 98 08/30/18 13:35 PT/INR, D-dimer PT 15.6 Sec. (12.2-14.9) H 08/25/18 16:43 INR 1.27 (0.87-1.13) H 08/25/18 16:43 1978.25 ng/mlDDU (0-234) H 08/24/18 13:41 Abnormal lab findings: Abnormal Labs 08/21/18 08/21/18 08/21/18 04:42 04:42 04:42 WBC 19.1 H RBC 2.49 L Hgb 7.7 L Hct 24.5 L MCV 98 H RDW 17.7 H Plt Count Lymph % (Auto) Mitchell % (Auto) Eos % (Auto) Baso % (Auto) Lymph # Seg Neuts % (Manual) 84.0 H Lymphocytes % (Manual) 7.0 L Monocytes % (Manual) 9.0 H Basophils % (Manual) Nucleated RBC % Seg Neutrophils # Man 16.0 H Lymphocytes # (Manual) Monocytes # (Manual) 1.7 H PT 20.1 H INR 1.76 H D-Dimer POC ABG pH POC ABG pCO2 POC ABG pO2 Sodium Potassium Chloride Carbon Dioxide BUN Creatinine Glucose POC Glucose Lactic Acid Uric Acid Calcium Total Bilirubin AST ALT Total Creatine Kinase CK-MB (CK-2) CK-MB (CK-2) Rel Index Troponin T 0.032 H C-Reactive Protein NT-Pro-B Natriuret Pep Total Protein Albumin LDL Cholesterol Direct 44 L Urine WBC (Auto) 08/21/18 08/21/18 08/21/18 04:42 04:42 04:42 WBC RBC Hgb Hct MCV RDW Plt Count Lymph % (Auto) Mitchell % (Auto) Eos % (Auto) Baso % (Auto) Lymph # Seg Neuts % (Manual) Lymphocytes % (Manual) Monocytes % (Manual) Basophils % (Manual) Nucleated RBC % Seg Neutrophils # Man Lymphocytes # (Manual) Monocytes # (Manual) PT INR D-Dimer POC ABG pH POC ABG pCO2 POC ABG pO2 Sodium Potassium 6.0 H Chloride Carbon Dioxide 15 L BUN 57 H Creatinine 4.3 H Glucose 111 H POC Glucose Lactic Acid 5.80 H* Uric Acid Calcium Total Bilirubin 1.80 H AST 212 H ALT 94 H Total Creatine Kinase CK-MB (CK-2) CK-MB (CK-2) Rel Index Troponin T C-Reactive Protein NT-Pro-B Natriuret Pep 95790 H Total Protein Albumin 3.2 L LDL Cholesterol Direct Urine WBC (Auto) 08/21/18 08/21/18 08/21/18 05:08 05:58 05:58 WBC RBC Hgb Hct MCV RDW Plt Count Lymph % (Auto) Mitchell % (Auto) Eos % (Auto) Baso % (Auto) Lymph # Seg Neuts % (Manual) Lymphocytes % (Manual) Monocytes % (Manual) Basophils % (Manual) Nucleated RBC % Seg Neutrophils # Man Lymphocytes # (Manual) Monocytes # (Manual) PT INR D-Dimer POC ABG pH 7.164 L POC ABG pCO2 46.3 H POC ABG pO2 229 H Sodium Potassium Chloride Carbon Dioxide BUN Creatinine Glucose POC Glucose Lactic Acid 5.10 H* Uric Acid Calcium Total Bilirubin AST ALT Total Creatine Kinase CK-MB (CK-2) CK-MB (CK-2) Rel Index Troponin T 0.035 H C-Reactive Protein NT-Pro-B Natriuret Pep Total Protein Albumin LDL Cholesterol Direct Urine WBC (Auto) 08/21/18 08/21/18 08/21/18 06:45 06:45 06:53 WBC RBC Hgb Hct MCV RDW Plt Count Lymph % (Auto) Mitchell % (Auto) Eos % (Auto) Baso % (Auto) Lymph # Seg Neuts % (Manual) Lymphocytes % (Manual) Monocytes % (Manual) Basophils % (Manual) Nucleated RBC % Seg Neutrophils # Man Lymphocytes # (Manual) Monocytes # (Manual) PT INR D-Dimer POC ABG pH 7.160 L POC ABG pCO2 46.8 H POC ABG pO2 Sodium Potassium Chloride Carbon Dioxide BUN Creatinine Glucose POC Glucose Lactic Acid 4.70 H* Uric Acid Calcium Total Bilirubin AST ALT Total Creatine Kinase 234 H CK-MB (CK-2) 9.1 H CK-MB (CK-2) Rel Index Troponin T 0.032 H C-Reactive Protein NT-Pro-B Natriuret Pep Total Protein Albumin LDL Cholesterol Direct Urine WBC (Auto) 08/21/18 08/21/18 08/21/18 10:43 10:43 10:45 WBC RBC Hgb Hct MCV RDW Plt Count Lymph % (Auto) Mitchell % (Auto) Eos % (Auto) Baso % (Auto) Lymph # Seg Neuts % (Manual) Lymphocytes % (Manual) Monocytes % (Manual) Basophils % (Manual) Nucleated RBC % Seg Neutrophils # Man Lymphocytes # (Manual) Monocytes # (Manual) PT INR D-Dimer POC ABG pH POC ABG pCO2 POC ABG pO2 Sodium Potassium Chloride Carbon Dioxide 17 L BUN 59 H Creatinine 4.2 H Glucose POC Glucose Lactic Acid 3.70 H* Uric Acid Calcium Total Bilirubin AST ALT Total Creatine Kinase 222 H CK-MB (CK-2) 9.2 H CK-MB (CK-2) Rel Index 4.1 H Troponin T 0.044 H D C-Reactive Protein NT-Pro-B Natriuret Pep Total Protein Albumin LDL Cholesterol Direct Urine WBC (Auto) 08/21/18 08/21/18 08/21/18 11:38 12:33 15:03 WBC RBC Hgb Hct MCV RDW Plt Count Lymph % (Auto) Mitchell % (Auto) Eos % (Auto) Baso % (Auto) Lymph # Seg Neuts % (Manual) Lymphocytes % (Manual) Monocytes % (Manual) Basophils % (Manual) Nucleated RBC % Seg Neutrophils # Man Lymphocytes # (Manual) Monocytes # (Manual) PT INR D-Dimer POC ABG pH 7.250 L POC ABG pCO2 POC ABG pO2 121 H Sodium Potassium Chloride Carbon Dioxide BUN Creatinine Glucose POC Glucose 129 H Lactic Acid Uric Acid Calcium Total Bilirubin AST ALT Total Creatine Kinase CK-MB (CK-2) CK-MB (CK-2) Rel Index Troponin T C-Reactive Protein NT-Pro-B Natriuret Pep Total Protein Albumin LDL Cholesterol Direct Urine WBC (Auto) 13.0 H 08/21/18 08/22/18 08/22/18 15:47 00:01 04:27 WBC RBC Hgb Hct MCV RDW Plt Count Lymph % (Auto) Mitchell % (Auto) Eos % (Auto) Baso % (Auto) Lymph # Seg Neuts % (Manual) Lymphocytes % (Manual) Monocytes % (Manual) Basophils % (Manual) Nucleated RBC % Seg Neutrophils # Man Lymphocytes # (Manual) Monocytes # (Manual) PT INR D-Dimer POC ABG pH 7.457 H POC ABG pCO2 POC ABG pO2 117 H Sodium Potassium Chloride Carbon Dioxide BUN Creatinine Glucose POC Glucose 211 H Lactic Acid 2.70 H* Uric Acid Calcium Total Bilirubin AST ALT Total Creatine Kinase CK-MB (CK-2) CK-MB (CK-2) Rel Index Troponin T C-Reactive Protein NT-Pro-B Natriuret Pep Total Protein Albumin LDL Cholesterol Direct Urine WBC (Auto) 08/22/18 08/22/18 08/22/18 05:46 06:10 06:10 WBC RBC 2.27 L Hgb 7.0 L Hct 21.2 L MCV RDW 16.8 H Plt Count 129 L Lymph % (Auto) Mitchell % (Auto) Eos % (Auto) Baso % (Auto) Lymph # Seg Neuts % (Manual) 95.0 H Lymphocytes % (Manual) 1.0 L Monocytes % (Manual) Basophils % (Manual) Nucleated RBC % 1.0 H Seg Neutrophils # Man 7.8 H Lymphocytes # (Manual) 0.1 L Monocytes # (Manual) PT INR D-Dimer POC ABG pH POC ABG pCO2 POC ABG pO2 Sodium Potassium Chloride Carbon Dioxide 20 L BUN 63 H Creatinine 3.9 H Glucose 205 H POC Glucose 223 H Lactic Acid Uric Acid Calcium Total Bilirubin AST ALT Total Creatine Kinase CK-MB (CK-2) CK-MB (CK-2) Rel Index Troponin T C-Reactive Protein NT-Pro-B Natriuret Pep Total Protein Albumin LDL Cholesterol Direct Urine WBC (Auto) 08/22/18 08/22/18 08/22/18 06:10 12:57 16:21 WBC RBC Hgb Hct MCV RDW Plt Count Lymph % (Auto) Mitchell % (Auto) Eos % (Auto) Baso % (Auto) Lymph # Seg Neuts % (Manual) Lymphocytes % (Manual) Monocytes % (Manual) Basophils % (Manual) Nucleated RBC % Seg Neutrophils # Man Lymphocytes # (Manual) Monocytes # (Manual) PT INR D-Dimer POC ABG pH 7.477 H POC ABG pCO2 POC ABG pO2 Sodium Potassium Chloride Carbon Dioxide BUN Creatinine Glucose POC Glucose 166 H Lactic Acid Uric Acid Calcium Total Bilirubin AST ALT Total Creatine Kinase CK-MB (CK-2) CK-MB (CK-2) Rel Index Troponin T C-Reactive Protein 23.60 H NT-Pro-B Natriuret Pep Total Protein Albumin LDL Cholesterol Direct Urine WBC (Auto) 08/22/18 08/22/18 08/23/18 17:41 23:42 04:38 WBC RBC Hgb Hct MCV RDW Plt Count Lymph % (Auto) Mitchell % (Auto) Eos % (Auto) Baso % (Auto) Lymph # Seg Neuts % (Manual) Lymphocytes % (Manual) Monocytes % (Manual) Basophils % (Manual) Nucleated RBC % Seg Neutrophils # Man Lymphocytes # (Manual) Monocytes # (Manual) PT INR D-Dimer POC ABG pH 7.249 L POC ABG pCO2 53.5 H POC ABG pO2 73 L Sodium Potassium Chloride Carbon Dioxide BUN Creatinine Glucose POC Glucose 131 H 168 H Lactic Acid Uric Acid Calcium Total Bilirubin AST ALT Total Creatine Kinase CK-MB (CK-2) CK-MB (CK-2) Rel Index Troponin T C-Reactive Protein NT-Pro-B Natriuret Pep Total Protein Albumin LDL Cholesterol Direct Urine WBC (Auto) 08/23/18 08/23/18 08/23/18 04:52 04:52 04:52 WBC RBC 2.39 L Hgb 7.5 L Hct 22.8 L MCV 95 H RDW 17.6 H Plt Count Lymph % (Auto) Mitchell % (Auto) Eos % (Auto) Baso % (Auto) Lymph # Seg Neuts % (Manual) Lymphocytes % (Manual) Monocytes % (Manual) Basophils % (Manual) Nucleated RBC % Seg Neutrophils # Man Lymphocytes # (Manual) Monocytes # (Manual) PT INR D-Dimer POC ABG pH POC ABG pCO2 POC ABG pO2 Sodium Potassium 5.6 H 5.6 H Chloride Carbon Dioxide 21 L BUN 71 H 72 H Creatinine 4.1 H 4.0 H Glucose 141 H 140 H POC Glucose Lactic Acid Uric Acid Calcium 8.3 L 8.2 L Total Bilirubin AST 247 H ALT 220 H Total Creatine Kinase CK-MB (CK-2) CK-MB (CK-2) Rel Index Troponin T C-Reactive Protein NT-Pro-B Natriuret Pep Total Protein Albumin 2.8 L LDL Cholesterol Direct Urine WBC (Auto) 08/23/18 08/23/18 08/23/18 05:50 08:38 12:21 WBC RBC Hgb Hct MCV RDW Plt Count Lymph % (Auto) Mitchell % (Auto) Eos % (Auto) Baso % (Auto) Lymph # Seg Neuts % (Manual) Lymphocytes % (Manual) Monocytes % (Manual) Basophils % (Manual) Nucleated RBC % Seg Neutrophils # Man Lymphocytes # (Manual) Monocytes # (Manual) PT INR D-Dimer POC ABG pH POC ABG pCO2 POC ABG pO2 Sodium Potassium Chloride Carbon Dioxide BUN Creatinine Glucose POC Glucose 160 H 177 H Lactic Acid Uric Acid Calcium Total Bilirubin AST ALT Total Creatine Kinase CK-MB (CK-2) CK-MB (CK-2) Rel Index Troponin T C-Reactive Protein NT-Pro-B Natriuret Pep 31927 H Total Protein Albumin LDL Cholesterol Direct Urine WBC (Auto) 08/23/18 08/23/18 08/23/18 12:36 14:24 18:05 WBC RBC Hgb Hct MCV RDW Plt Count Lymph % (Auto) Mitchell % (Auto) Eos % (Auto) Baso % (Auto) Lymph # Seg Neuts % (Manual) Lymphocytes % (Manual) Monocytes % (Manual) Basophils % (Manual) Nucleated RBC % Seg Neutrophils # Man Lymphocytes # (Manual) Monocytes # (Manual) PT INR D-Dimer POC ABG pH 7.337 L POC ABG pCO2 POC ABG pO2 145 H Sodium 136 L Potassium 5.2 H Chloride Carbon Dioxide BUN 76 H Creatinine 4.2 H Glucose 158 H POC Glucose 169 H Lactic Acid Uric Acid Calcium 8.1 L Total Bilirubin AST ALT Total Creatine Kinase CK-MB (CK-2) CK-MB (CK-2) Rel Index Troponin T C-Reactive Protein NT-Pro-B Natriuret Pep Total Protein Albumin LDL Cholesterol Direct Urine WBC (Auto) 08/23/18 08/23/18 08/24/18 22:43 23:42 05:16 WBC RBC Hgb Hct MCV RDW Plt Count Lymph % (Auto) Mitchell % (Auto) Eos % (Auto) Baso % (Auto) Lymph # Seg Neuts % (Manual) Lymphocytes % (Manual) Monocytes % (Manual) Basophils % (Manual) Nucleated RBC % Seg Neutrophils # Man Lymphocytes # (Manual) Monocytes # (Manual) PT INR D-Dimer POC ABG pH POC ABG pCO2 POC ABG pO2 Sodium 136 L Potassium 5.3 H 5.2 H Chloride 97.9 L Carbon Dioxide BUN 80 H 86 H Creatinine 4.0 H 4.3 H Glucose 164 H 202 H POC Glucose 183 H Lactic Acid Uric Acid Calcium 7.9 L Total Bilirubin AST ALT Total Creatine Kinase CK-MB (CK-2) CK-MB (CK-2) Rel Index Troponin T C-Reactive Protein NT-Pro-B Natriuret Pep Total Protein Albumin LDL Cholesterol Direct Urine WBC (Auto) 08/24/18 08/24/18 08/24/18 05:21 05:29 10:10 WBC RBC 2.47 L Hgb 7.5 L Hct 23.3 L MCV RDW 17.5 H Plt Count 118 L Lymph % (Auto) Mitchell % (Auto) Eos % (Auto) Baso % (Auto) Lymph # Seg Neuts % (Manual) 92.0 H Lymphocytes % (Manual) 2.0 L Monocytes % (Manual) Basophils % (Manual) Nucleated RBC % Seg Neutrophils # Man 8.8 H Lymphocytes # (Manual) 0.2 L Monocytes # (Manual) PT INR D-Dimer POC ABG pH 7.243 L POC ABG pCO2 56.8 H POC ABG pO2 Sodium Potassium Chloride Carbon Dioxide BUN Creatinine Glucose POC Glucose 209 H Lactic Acid Uric Acid Calcium Total Bilirubin AST ALT Total Creatine Kinase CK-MB (CK-2) CK-MB (CK-2) Rel Index Troponin T C-Reactive Protein NT-Pro-B Natriuret Pep Total Protein Albumin LDL Cholesterol Direct Urine WBC (Auto) 08/24/18 08/24/18 08/24/18 10:10 11:19 13:41 WBC RBC Hgb Hct MCV RDW Plt Count Lymph % (Auto) Mitchell % (Auto) Eos % (Auto) Baso % (Auto) Lymph # Seg Neuts % (Manual) Lymphocytes % (Manual) Monocytes % (Manual) Basophils % (Manual) Nucleated RBC % Seg Neutrophils # Man Lymphocytes # (Manual) Monocytes # (Manual) PT INR D-Dimer 1978.25 H POC ABG pH POC ABG pCO2 POC ABG pO2 Sodium Potassium Chloride Carbon Dioxide BUN Creatinine Glucose POC Glucose 212 H Lactic Acid Uric Acid Calcium Total Bilirubin AST ALT Total Creatine Kinase CK-MB (CK-2) CK-MB (CK-2) Rel Index Troponin T C-Reactive Protein NT-Pro-B Natriuret Pep 16999 H Total Protein Albumin LDL Cholesterol Direct Urine WBC (Auto) 08/24/18 08/24/18 08/24/18 13:41 14:27 17:23 WBC RBC Hgb Hct MCV RDW Plt Count Lymph % (Auto) Mitchell % (Auto) Eos % (Auto) Baso % (Auto) Lymph # Seg Neuts % (Manual) Lymphocytes % (Manual) Monocytes % (Manual) Basophils % (Manual) Nucleated RBC % Seg Neutrophils # Man Lymphocytes # (Manual) Monocytes # (Manual) PT INR D-Dimer POC ABG pH POC ABG pCO2 POC ABG pO2 Sodium 136 L Potassium 5.1 H Chloride 97.8 L Carbon Dioxide BUN 90 H Creatinine 4.1 H Glucose 157 H POC Glucose 155 H Lactic Acid Uric Acid Calcium 8.0 L Total Bilirubin AST ALT Total Creatine Kinase CK-MB (CK-2) CK-MB (CK-2) Rel Index Troponin T C-Reactive Protein 9.00 H NT-Pro-B Natriuret Pep Total Protein Albumin LDL Cholesterol Direct Urine WBC (Auto) 08/25/18 08/25/18 08/25/18 00:38 05:22 05:57 WBC RBC Hgb Hct MCV RDW Plt Count Lymph % (Auto) Mitchell % (Auto) Eos % (Auto) Baso % (Auto) Lymph # Seg Neuts % (Manual) Lymphocytes % (Manual) Monocytes % (Manual) Basophils % (Manual) Nucleated RBC % Seg Neutrophils # Man Lymphocytes # (Manual) Monocytes # (Manual) PT INR D-Dimer POC ABG pH 7.238 L POC ABG pCO2 58.2 H POC ABG pO2 Sodium Potassium 5.4 H Chloride Carbon Dioxide BUN 98 H Creatinine 4.3 H Glucose 217 H POC Glucose 176 H Lactic Acid Uric Acid Calcium 8.3 L Total Bilirubin AST ALT Total Creatine Kinase CK-MB (CK-2) CK-MB (CK-2) Rel Index Troponin T C-Reactive Protein NT-Pro-B Natriuret Pep 35488 H Total Protein Albumin LDL Cholesterol Direct Urine WBC (Auto) 08/25/18 08/25/18 08/25/18 06:56 08:59 11:38 WBC RBC Hgb Hct MCV RDW Plt Count Lymph % (Auto) Mitchell % (Auto) Eos % (Auto) Baso % (Auto) Lymph # Seg Neuts % (Manual) Lymphocytes % (Manual) Monocytes % (Manual) Basophils % (Manual) Nucleated RBC % Seg Neutrophils # Man Lymphocytes # (Manual) Monocytes # (Manual) PT INR D-Dimer POC ABG pH 7.348 L POC ABG pCO2 48.6 H POC ABG pO2 Sodium Potassium Chloride Carbon Dioxide BUN Creatinine Glucose POC Glucose 247 H 235 H Lactic Acid Uric Acid Calcium Total Bilirubin AST ALT Total Creatine Kinase CK-MB (CK-2) CK-MB (CK-2) Rel Index Troponin T C-Reactive Protein NT-Pro-B Natriuret Pep Total Protein Albumin LDL Cholesterol Direct Urine WBC (Auto) 08/25/18 08/25/18 08/25/18 12:29 16:43 16:43 WBC 14.7 H RBC 2.90 L Hgb 8.9 L Hct 27.4 L MCV 95 H RDW 17.3 H Plt Count 119 L Lymph % (Auto) Mitchell % (Auto) Eos % (Auto) Baso % (Auto) Lymph # Seg Neuts % (Manual) 94.0 H Lymphocytes % (Manual) 2.0 L Monocytes % (Manual) Basophils % (Manual) Nucleated RBC % Seg Neutrophils # Man 13.8 H Lymphocytes # (Manual) 0.3 L Monocytes # (Manual) PT 15.6 H INR 1.27 H D-Dimer POC ABG pH POC ABG pCO2 POC ABG pO2 Sodium Potassium Chloride Carbon Dioxide BUN Creatinine Glucose POC Glucose 237 H Lactic Acid Uric Acid Calcium Total Bilirubin AST ALT Total Creatine Kinase CK-MB (CK-2) CK-MB (CK-2) Rel Index Troponin T C-Reactive Protein NT-Pro-B Natriuret Pep Total Protein Albumin LDL Cholesterol Direct Urine WBC (Auto) 08/25/18 08/26/18 08/26/18 17:22 00:16 04:56 WBC RBC Hgb Hct MCV RDW Plt Count Lymph % (Auto) Mitchell % (Auto) Eos % (Auto) Baso % (Auto) Lymph # Seg Neuts % (Manual) Lymphocytes % (Manual) Monocytes % (Manual) Basophils % (Manual) Nucleated RBC % Seg Neutrophils # Man Lymphocytes # (Manual) Monocytes # (Manual) PT INR D-Dimer POC ABG pH POC ABG pCO2 45.2 H POC ABG pO2 Sodium Potassium Chloride Carbon Dioxide BUN Creatinine Glucose POC Glucose 200 H 180 H Lactic Acid Uric Acid Calcium Total Bilirubin AST ALT Total Creatine Kinase CK-MB (CK-2) CK-MB (CK-2) Rel Index Troponin T C-Reactive Protein NT-Pro-B Natriuret Pep Total Protein Albumin LDL Cholesterol Direct Urine WBC (Auto) 08/26/18 08/26/18 08/26/18 05:53 06:20 08:48 WBC RBC Hgb Hct MCV RDW Plt Count Lymph % (Auto) Mitchell % (Auto) Eos % (Auto) Baso % (Auto) Lymph # Seg Neuts % (Manual) Lymphocytes % (Manual) Monocytes % (Manual) Basophils % (Manual) Nucleated RBC % Seg Neutrophils # Man Lymphocytes # (Manual) Monocytes # (Manual) PT INR D-Dimer POC ABG pH POC ABG pCO2 POC ABG pO2 Sodium Potassium Chloride Carbon Dioxide BUN 106 H Creatinine 3.9 H Glucose 137 H POC Glucose 131 H 126 H Lactic Acid Uric Acid Calcium 8.1 L Total Bilirubin AST ALT Total Creatine Kinase CK-MB (CK-2) CK-MB (CK-2) Rel Index Troponin T C-Reactive Protein NT-Pro-B Natriuret Pep > 03015 H Total Protein Albumin LDL Cholesterol Direct Urine WBC (Auto) 08/26/18 08/26/18 08/26/18 11:39 17:33 18:02 WBC RBC Hgb Hct MCV RDW Plt Count Lymph % (Auto) Mitchell % (Auto) Eos % (Auto) Baso % (Auto) Lymph # Seg Neuts % (Manual) Lymphocytes % (Manual) Monocytes % (Manual) Basophils % (Manual) Nucleated RBC % Seg Neutrophils # Man Lymphocytes # (Manual) Monocytes # (Manual) PT INR D-Dimer POC ABG pH POC ABG pCO2 POC ABG pO2 58 L Sodium Potassium Chloride Carbon Dioxide BUN Creatinine Glucose POC Glucose 156 H 173 H Lactic Acid Uric Acid Calcium Total Bilirubin AST ALT Total Creatine Kinase CK-MB (CK-2) CK-MB (CK-2) Rel Index Troponin T C-Reactive Protein NT-Pro-B Natriuret Pep Total Protein Albumin LDL Cholesterol Direct Urine WBC (Auto) 08/26/18 08/27/18 08/27/18 23:12 04:59 11:51 WBC RBC Hgb Hct MCV RDW Plt Count Lymph % (Auto) Mitchell % (Auto) Eos % (Auto) Baso % (Auto) Lymph # Seg Neuts % (Manual) Lymphocytes % (Manual) Monocytes % (Manual) Basophils % (Manual) Nucleated RBC % Seg Neutrophils # Man Lymphocytes # (Manual) Monocytes # (Manual) PT INR D-Dimer POC ABG pH 7.563 H POC ABG pCO2 < 30 L POC ABG pO2 69 L Sodium Potassium Chloride Carbon Dioxide BUN Creatinine Glucose POC Glucose 130 H 107 H Lactic Acid Uric Acid Calcium Total Bilirubin AST ALT Total Creatine Kinase CK-MB (CK-2) CK-MB (CK-2) Rel Index Troponin T C-Reactive Protein NT-Pro-B Natriuret Pep Total Protein Albumin LDL Cholesterol Direct Urine WBC (Auto) 08/27/18 08/27/18 08/27/18 11:58 11:58 11:58 WBC RBC 2.66 L Hgb 8.1 L Hct 24.7 L MCV RDW 16.7 H Plt Count Lymph % (Auto) Mitchell % (Auto) Eos % (Auto) Baso % (Auto) Lymph # Seg Neuts % (Manual) Lymphocytes % (Manual) Monocytes % (Manual) Basophils % (Manual) Nucleated RBC % Seg Neutrophils # Man Lymphocytes # (Manual) Monocytes # (Manual) PT INR D-Dimer POC ABG pH POC ABG pCO2 POC ABG pO2 Sodium Potassium Chloride Carbon Dioxide BUN 71 H Creatinine 2.9 H Glucose POC Glucose Lactic Acid Uric Acid Calcium 7.6 L Total Bilirubin AST ALT Total Creatine Kinase CK-MB (CK-2) CK-MB (CK-2) Rel Index Troponin T C-Reactive Protein NT-Pro-B Natriuret Pep > 84482 H Total Protein 6.1 L Albumin 2.4 L LDL Cholesterol Direct Urine WBC (Auto) 08/28/18 08/28/18 08/28/18 04:38 04:49 04:49 WBC RBC 2.65 L Hgb 8.3 L Hct 25.3 L MCV 96 H RDW 17.3 H Plt Count 83 L Lymph % (Auto) Mitchell % (Auto) Eos % (Auto) Baso % (Auto) Lymph # Seg Neuts % (Manual) Lymphocytes % (Manual) Monocytes % (Manual) Basophils % (Manual) Nucleated RBC % Seg Neutrophils # Man Lymphocytes # (Manual) Monocytes # (Manual) PT INR D-Dimer POC ABG pH POC ABG pCO2 POC ABG pO2 112 H Sodium Potassium Chloride Carbon Dioxide BUN Creatinine Glucose POC Glucose Lactic Acid Uric Acid Calcium Total Bilirubin AST ALT Total Creatine Kinase CK-MB (CK-2) CK-MB (CK-2) Rel Index Troponin T C-Reactive Protein NT-Pro-B Natriuret Pep > 56583 H Total Protein Albumin LDL Cholesterol Direct Urine WBC (Auto) 08/28/18 08/28/18 08/29/18 04:49 14:24 00:11 WBC RBC Hgb Hct MCV RDW Plt Count Lymph % (Auto) Mitchell % (Auto) Eos % (Auto) Baso % (Auto) Lymph # Seg Neuts % (Manual) Lymphocytes % (Manual) Monocytes % (Manual) Basophils % (Manual) Nucleated RBC % Seg Neutrophils # Man Lymphocytes # (Manual) Monocytes # (Manual) PT INR D-Dimer POC ABG pH 7.278 L POC ABG pCO2 57.9 H POC ABG pO2 79 L Sodium Potassium Chloride Carbon Dioxide BUN 69 H Creatinine 2.4 H Glucose POC Glucose 171 H Lactic Acid Uric Acid Calcium 7.7 L Total Bilirubin AST ALT Total Creatine Kinase CK-MB (CK-2) CK-MB (CK-2) Rel Index Troponin T C-Reactive Protein NT-Pro-B Natriuret Pep Total Protein 5.4 L Albumin 2.2 L LDL Cholesterol Direct Urine WBC (Auto) 08/29/18 08/29/18 08/29/18 04:39 05:35 05:35 WBC 13.6 H RBC 3.09 L Hgb 9.4 L Hct 29.5 L MCV 96 H RDW 17.9 H Plt Count 127 L Lymph % (Auto) Mitchell % (Auto) Eos % (Auto) Baso % (Auto) Lymph # Seg Neuts % (Manual) Lymphocytes % (Manual) Monocytes % (Manual) Basophils % (Manual) Nucleated RBC % Seg Neutrophils # Man Lymphocytes # (Manual) Monocytes # (Manual) PT INR D-Dimer POC ABG pH 7.312 L POC ABG pCO2 57.6 H POC ABG pO2 79 L Sodium Potassium Chloride Carbon Dioxide BUN 42 H Creatinine 1.9 H Glucose 107 H POC Glucose Lactic Acid Uric Acid Calcium Total Bilirubin AST ALT Total Creatine Kinase CK-MB (CK-2) CK-MB (CK-2) Rel Index Troponin T C-Reactive Protein NT-Pro-B Natriuret Pep Total Protein Albumin LDL Cholesterol Direct Urine WBC (Auto) 08/29/18 08/29/18 08/29/18 05:48 11:37 15:32 WBC RBC Hgb Hct MCV RDW Plt Count Lymph % (Auto) Mitchell % (Auto) Eos % (Auto) Baso % (Auto) Lymph # Seg Neuts % (Manual) Lymphocytes % (Manual) Monocytes % (Manual) Basophils % (Manual) Nucleated RBC % Seg Neutrophils # Man Lymphocytes # (Manual) Monocytes # (Manual) PT INR D-Dimer POC ABG pH POC ABG pCO2 47.0 H POC ABG pO2 78 L Sodium Potassium Chloride Carbon Dioxide BUN Creatinine Glucose POC Glucose 114 H 116 H Lactic Acid Uric Acid Calcium Total Bilirubin AST ALT Total Creatine Kinase CK-MB (CK-2) CK-MB (CK-2) Rel Index Troponin T C-Reactive Protein NT-Pro-B Natriuret Pep Total Protein Albumin LDL Cholesterol Direct Urine WBC (Auto) 08/29/18 08/30/18 08/30/18 17:28 00:17 04:41 WBC RBC Hgb Hct MCV RDW Plt Count Lymph % (Auto) Mitchell % (Auto) Eos % (Auto) Baso % (Auto) Lymph # Seg Neuts % (Manual) Lymphocytes % (Manual) Monocytes % (Manual) Basophils % (Manual) Nucleated RBC % Seg Neutrophils # Man Lymphocytes # (Manual) Monocytes # (Manual) PT INR D-Dimer POC ABG pH POC ABG pCO2 48.1 H POC ABG pO2 Sodium Potassium Chloride Carbon Dioxide BUN Creatinine Glucose POC Glucose 174 H 132 H Lactic Acid Uric Acid Calcium Total Bilirubin AST ALT Total Creatine Kinase CK-MB (CK-2) CK-MB (CK-2) Rel Index Troponin T C-Reactive Protein NT-Pro-B Natriuret Pep Total Protein Albumin LDL Cholesterol Direct Urine WBC (Auto) 08/30/18 08/30/18 08/30/18 05:17 05:34 06:10 WBC RBC 2.68 L Hgb 8.2 L Hct 25.6 L MCV 96 H RDW 17.2 H Plt Count 118 L Lymph % (Auto) Mitchell % (Auto) Eos % (Auto) Baso % (Auto) Lymph # Seg Neuts % (Manual) Lymphocytes % (Manual) Monocytes % (Manual) Basophils % (Manual) Nucleated RBC % Seg Neutrophils # Man Lymphocytes # (Manual) Monocytes # (Manual) PT INR D-Dimer POC ABG pH POC ABG pCO2 POC ABG pO2 Sodium Potassium Chloride Carbon Dioxide BUN 54 H Creatinine 2.4 H Glucose 120 H POC Glucose 141 H Lactic Acid Uric Acid Calcium Total Bilirubin AST ALT Total Creatine Kinase CK-MB (CK-2) CK-MB (CK-2) Rel Index Troponin T C-Reactive Protein NT-Pro-B Natriuret Pep Total Protein Albumin LDL Cholesterol Direct Urine WBC (Auto) 08/30/18 08/30/18 08/30/18 13:11 18:11 23:55 WBC RBC Hgb Hct MCV RDW Plt Count Lymph % (Auto) Mitchell % (Auto) Eos % (Auto) Baso % (Auto) Lymph # Seg Neuts % (Manual) Lymphocytes % (Manual) Monocytes % (Manual) Basophils % (Manual) Nucleated RBC % Seg Neutrophils # Man Lymphocytes # (Manual) Monocytes # (Manual) PT INR D-Dimer POC ABG pH POC ABG pCO2 POC ABG pO2 Sodium Potassium Chloride Carbon Dioxide BUN Creatinine Glucose POC Glucose 167 H 144 H 144 H Lactic Acid Uric Acid Calcium Total Bilirubin AST ALT Total Creatine Kinase CK-MB (CK-2) CK-MB (CK-2) Rel Index Troponin T C-Reactive Protein NT-Pro-B Natriuret Pep Total Protein Albumin LDL Cholesterol Direct Urine WBC (Auto) 08/31/18 08/31/18 08/31/18 05:07 05:07 05:44 WBC RBC 2.62 L Hgb 8.1 L Hct 25.0 L MCV 96 H RDW 17.5 H Plt Count 128 L Lymph % (Auto) Mitchell % (Auto) Eos % (Auto) Baso % (Auto) Lymph # Seg Neuts % (Manual) Lymphocytes % (Manual) Monocytes % (Manual) Basophils % (Manual) Nucleated RBC % Seg Neutrophils # Man Lymphocytes # (Manual) Monocytes # (Manual) PT INR D-Dimer POC ABG pH POC ABG pCO2 POC ABG pO2 Sodium Potassium Chloride Carbon Dioxide BUN 58 H Creatinine 2.3 H Glucose 103 H POC Glucose 109 H Lactic Acid Uric Acid Calcium Total Bilirubin AST ALT Total Creatine Kinase CK-MB (CK-2) CK-MB (CK-2) Rel Index Troponin T C-Reactive Protein NT-Pro-B Natriuret Pep Total Protein Albumin LDL Cholesterol Direct Urine WBC (Auto) 08/31/18 08/31/18 08/31/18 11:26 13:54 19:05 WBC RBC Hgb Hct MCV RDW Plt Count Lymph % (Auto) Mitchell % (Auto) Eos % (Auto) Baso % (Auto) Lymph # Seg Neuts % (Manual) Lymphocytes % (Manual) Monocytes % (Manual) Basophils % (Manual) Nucleated RBC % Seg Neutrophils # Man Lymphocytes # (Manual) Monocytes # (Manual) PT INR D-Dimer POC ABG pH POC ABG pCO2 POC ABG pO2 Sodium Potassium Chloride Carbon Dioxide BUN Creatinine Glucose POC Glucose 117 H 186 H Lactic Acid Uric Acid 9.6 H Calcium Total Bilirubin AST ALT Total Creatine Kinase CK-MB (CK-2) CK-MB (CK-2) Rel Index Troponin T C-Reactive Protein NT-Pro-B Natriuret Pep Total Protein Albumin LDL Cholesterol Direct Urine WBC (Auto) 08/31/18 09/01/18 09/01/18 23:50 06:27 09:21 WBC RBC 2.74 L Hgb 8.6 L Hct 25.8 L MCV RDW 17.3 H Plt Count Lymph % (Auto) Mitchell % (Auto) Eos % (Auto) Baso % (Auto) Lymph # Seg Neuts % (Manual) Lymphocytes % (Manual) Monocytes % (Manual) Basophils % (Manual) Nucleated RBC % Seg Neutrophils # Man Lymphocytes # (Manual) Monocytes # (Manual) PT INR D-Dimer POC ABG pH POC ABG pCO2 POC ABG pO2 Sodium Potassium Chloride Carbon Dioxide BUN Creatinine Glucose POC Glucose 141 H 62 L Lactic Acid Uric Acid Calcium Total Bilirubin AST ALT Total Creatine Kinase CK-MB (CK-2) CK-MB (CK-2) Rel Index Troponin T C-Reactive Protein NT-Pro-B Natriuret Pep Total Protein Albumin LDL Cholesterol Direct Urine WBC (Auto) 09/01/18 09/01/18 09/01/18 09:21 12:27 17:51 WBC RBC Hgb Hct MCV RDW Plt Count Lymph % (Auto) [place] % (Auto) Eos % (Auto) Baso % (Auto) Lymph # Seg Neuts % (Manual) Lymphocytes % (Manual) Monocytes % (Manual) Basophils % (Manual) Nucleated RBC % Seg Neutrophils # Man Lymphocytes # (Manual) Monocytes # (Manual) PT INR D-Dimer POC ABG pH POC ABG pCO2 POC ABG pO2 Sodium Potassium 3.0 L D Chloride 109.8 H Carbon Dioxide BUN 45 H Creatinine 1.7 H Glucose POC Glucose 106 H 108 H Lactic Acid Uric Acid Calcium 7.1 L D Total Bilirubin AST ALT Total Creatine Kinase CK-MB (CK-2) CK-MB (CK-2) Rel Index Troponin T C-Reactive Protein NT-Pro-B Natriuret Pep Total Protein Albumin LDL Cholesterol Direct Urine WBC (Auto) 09/02/18 09/02/18 09/02/18 05:16 05:16 12:01 WBC RBC 2.60 L Hgb 8.1 L Hct 24.8 L MCV 95 H RDW 17.1 H Plt Count Lymph % (Auto) Mitchell % (Auto) Eos % (Auto) Baso % (Auto) Lymph # Seg Neuts % (Manual) Lymphocytes % (Manual) Monocytes % (Manual) Basophils % (Manual) Nucleated RBC % Seg Neutrophils # Man Lymphocytes # (Manual) Monocytes # (Manual) PT INR D-Dimer POC ABG pH POC ABG pCO2 POC ABG pO2 Sodium Potassium Chloride Carbon Dioxide BUN 49 H Creatinine 1.8 H Glucose 107 H POC Glucose 124 H Lactic Acid Uric Acid Calcium 8.1 L Total Bilirubin AST ALT Total Creatine Kinase CK-MB (CK-2) CK-MB (CK-2) Rel Index Troponin T C-Reactive Protein NT-Pro-B Natriuret Pep Total Protein Albumin LDL Cholesterol Direct Urine WBC (Auto) 09/02/18 09/02/18 09/03/18 18:38 23:12 08:22 WBC RBC Hgb Hct MCV RDW Plt Count Lymph % (Auto) [place] % (Auto) Eos % (Auto) Baso % (Auto) Lymph # Seg Neuts % (Manual) Lymphocytes % (Manual) Monocytes % (Manual) Basophils % (Manual) Nucleated RBC % Seg Neutrophils # Man Lymphocytes # (Manual) Monocytes # (Manual) PT INR D-Dimer POC ABG pH POC ABG pCO2 POC ABG pO2 Sodium Potassium Chloride Carbon Dioxide BUN Creatinine Glucose POC Glucose 164 H 128 H 115 H Lactic Acid Uric Acid Calcium Total Bilirubin AST ALT Total Creatine Kinase CK-MB (CK-2) CK-MB (CK-2) Rel Index Troponin T C-Reactive Protein NT-Pro-B Natriuret Pep Total Protein Albumin LDL Cholesterol Direct Urine WBC (Auto) 09/03/18 09/03/18 09/03/18 11:48 16:37 20:48 WBC RBC Hgb Hct MCV RDW Plt Count Lymph % (Auto) [place] % (Auto) Eos % (Auto) Baso % (Auto) Lymph # Seg Neuts % (Manual) Lymphocytes % (Manual) Monocytes % (Manual) Basophils % (Manual) Nucleated RBC % Seg Neutrophils # Man Lymphocytes # (Manual) Monocytes # (Manual) PT INR D-Dimer POC ABG pH POC ABG pCO2 POC ABG pO2 Sodium Potassium Chloride Carbon Dioxide BUN Creatinine Glucose POC Glucose 203 H 146 H 150 H Lactic Acid Uric Acid Calcium Total Bilirubin AST ALT Total Creatine Kinase CK-MB (CK-2) CK-MB (CK-2) Rel Index Troponin T C-Reactive Protein NT-Pro-B Natriuret Pep Total Protein Albumin LDL Cholesterol Direct Urine WBC (Auto) 09/04/18 09/04/18 09/04/18 08:29 12:08 13:32 WBC RBC Hgb Hct MCV RDW Plt Count Lymph % (Auto) Mitchell % (Auto) Eos % (Auto) Baso % (Auto) Lymph # Seg Neuts % (Manual) Lymphocytes % (Manual) Monocytes % (Manual) Basophils % (Manual) Nucleated RBC % Seg Neutrophils # Man Lymphocytes # (Manual) Monocytes # (Manual) PT INR D-Dimer POC ABG pH POC ABG pCO2 POC ABG pO2 Sodium 136 L Potassium Chloride Carbon Dioxide BUN 42 H Creatinine 1.6 H Glucose 180 H POC Glucose 129 H 149 H Lactic Acid Uric Acid Calcium Total Bilirubin AST ALT Total Creatine Kinase CK-MB (CK-2) CK-MB (CK-2) Rel Index Troponin T C-Reactive Protein NT-Pro-B Natriuret Pep Total Protein Albumin LDL Cholesterol Direct Urine WBC (Auto) 09/04/18 09/05/18 09/05/18 16:33 07:03 07:03 WBC RBC 2.92 L Hgb 9.1 L Hct 27.4 L MCV RDW 17.3 H Plt Count Lymph % (Auto) Mitchell % (Auto) Eos % (Auto) Baso % (Auto) Lymph # Seg Neuts % (Manual) 81.0 H Lymphocytes % (Manual) 7.0 L Monocytes % (Manual) 8.0 H Basophils % (Manual) Nucleated RBC % Seg Neutrophils # Man Lymphocytes # (Manual) 0.5 L Monocytes # (Manual) PT INR D-Dimer POC ABG pH POC ABG pCO2 POC ABG pO2 Sodium Potassium Chloride Carbon Dioxide BUN 40 H Creatinine Glucose 153 H POC Glucose 165 H Lactic Acid Uric Acid Calcium Total Bilirubin AST ALT Total Creatine Kinase CK-MB (CK-2) CK-MB (CK-2) Rel Index Troponin T C-Reactive Protein NT-Pro-B Natriuret Pep Total Protein Albumin LDL Cholesterol Direct Urine WBC (Auto) 09/05/18 09/05/18 09/05/18 08:00 11:51 21:20 WBC RBC Hgb Hct MCV RDW Plt Count Lymph % (Auto) [place] % (Auto) Eos % (Auto) Baso % (Auto) Lymph # Seg Neuts % (Manual) Lymphocytes % (Manual) Monocytes % (Manual) Basophils % (Manual) Nucleated RBC % Seg Neutrophils # Man Lymphocytes # (Manual) Monocytes # (Manual) PT INR D-Dimer POC ABG pH POC ABG pCO2 POC ABG pO2 Sodium Potassium Chloride Carbon Dioxide BUN Creatinine Glucose POC Glucose 146 H 207 H 114 H Lactic Acid Uric Acid Calcium Total Bilirubin AST ALT Total Creatine Kinase CK-MB (CK-2) CK-MB (CK-2) Rel Index Troponin T C-Reactive Protein NT-Pro-B Natriuret Pep Total Protein Albumin LDL Cholesterol Direct Urine WBC (Auto) 09/06/18 09/06/18 09/06/18 06:42 06:42 11:38 WBC RBC 2.90 L Hgb 9.0 L Hct 27.0 L MCV RDW 17.4 H Plt Count 130 L Lymph % (Auto) Mitchell % (Auto) Eos % (Auto) Baso % (Auto) Lymph # Seg Neuts % (Manual) 79.0 H Lymphocytes % (Manual) 6.0 L Monocytes % (Manual) 12.0 H Basophils % (Manual) 2.0 H Nucleated RBC % Seg Neutrophils # Man Lymphocytes # (Manual) 0.3 L Monocytes # (Manual) PT INR D-Dimer POC ABG pH POC ABG pCO2 POC ABG pO2 Sodium 136 L Potassium Chloride Carbon Dioxide BUN 39 H Creatinine Glucose 106 H POC Glucose 265 H Lactic Acid Uric Acid Calcium Total Bilirubin AST ALT Total Creatine Kinase CK-MB (CK-2) CK-MB (CK-2) Rel Index Troponin T C-Reactive Protein NT-Pro-B Natriuret Pep Total Protein Albumin LDL Cholesterol Direct Urine WBC (Auto) 09/06/18 09/06/18 09/07/18 16:37 20:55 05:12 WBC RBC 2.80 L Hgb 8.7 L Hct 26.5 L MCV 95 H RDW 17.7 H Plt Count Lymph % (Auto) 13.3 L Mitchell % (Auto) 14.2 H Eos % (Auto) Baso % (Auto) 1.9 H Lymph # 0.7 L Seg Neuts % (Manual) Lymphocytes % (Manual) Monocytes % (Manual) Basophils % (Manual) Nucleated RBC % Seg Neutrophils # Man Lymphocytes # (Manual) Monocytes # (Manual) PT INR D-Dimer POC ABG pH POC ABG pCO2 POC ABG pO2 Sodium Potassium Chloride Carbon Dioxide BUN Creatinine Glucose POC Glucose 131 H 135 H Lactic Acid Uric Acid Calcium Total Bilirubin AST ALT Total Creatine Kinase CK-MB (CK-2) CK-MB (CK-2) Rel Index Troponin T C-Reactive Protein NT-Pro-B Natriuret Pep Total Protein Albumin LDL Cholesterol Direct Urine WBC (Auto) 09/07/18 09/07/18 09/07/18 05:12 11:28 15:32 WBC RBC Hgb Hct MCV RDW Plt Count Lymph % (Auto) [place] % (Auto) Eos % (Auto) Baso % (Auto) Lymph # Seg Neuts % (Manual) Lymphocytes % (Manual) Monocytes % (Manual) Basophils % (Manual) Nucleated RBC % Seg Neutrophils # Man Lymphocytes # (Manual) Monocytes # (Manual) PT INR D-Dimer POC ABG pH POC ABG pCO2 POC ABG pO2 Sodium Potassium Chloride Carbon Dioxide BUN 36 H Creatinine Glucose POC Glucose 176 H 131 H Lactic Acid Uric Acid Calcium Total Bilirubin AST ALT Total Creatine Kinase CK-MB (CK-2) CK-MB (CK-2) Rel Index Troponin T C-Reactive Protein NT-Pro-B Natriuret Pep Total Protein Albumin LDL Cholesterol Direct Urine WBC (Auto) 09/07/18 09/08/18 09/08/18 21:50 05:23 05:23 WBC RBC 2.72 L Hgb 8.5 L Hct 26.9 L MCV 99 H RDW 18.0 H Plt Count 136 L Lymph % (Auto) 13.1 L Mitchell % (Auto) 15.7 H Eos % (Auto) Baso % (Auto) 1.9 H Lymph # 0.7 L Seg Neuts % (Manual) Lymphocytes % (Manual) Monocytes % (Manual) Basophils % (Manual) Nucleated RBC % Seg Neutrophils # Man Lymphocytes # (Manual) Monocytes # (Manual) PT INR D-Dimer POC ABG pH POC ABG pCO2 POC ABG pO2 Sodium 134 L Potassium 5.2 H Chloride Carbon Dioxide BUN 36 H Creatinine Glucose POC Glucose 160 H Lactic Acid Uric Acid Calcium Total Bilirubin AST ALT Total Creatine Kinase CK-MB (CK-2) CK-MB (CK-2) Rel Index Troponin T C-Reactive Protein NT-Pro-B Natriuret Pep Total Protein Albumin LDL Cholesterol Direct Urine WBC (Auto) 09/08/18 09/08/18 09/09/18 12:33 16:57 05:52 WBC RBC 2.64 L Hgb 8.1 L Hct 25.2 L MCV 95 H RDW 17.8 H Plt Count Lymph % (Auto) Mitchell % (Auto) 14.3 H Eos % (Auto) Baso % (Auto) 1.9 H Lymph # 0.6 L Seg Neuts % (Manual) Lymphocytes % (Manual) Monocytes % (Manual) Basophils % (Manual) Nucleated RBC % Seg Neutrophils # Man Lymphocytes # (Manual) Monocytes # (Manual) PT INR D-Dimer POC ABG pH POC ABG pCO2 POC ABG pO2 Sodium Potassium Chloride Carbon Dioxide BUN Creatinine Glucose POC Glucose 198 H 195 H Lactic Acid Uric Acid Calcium Total Bilirubin AST ALT Total Creatine Kinase CK-MB (CK-2) CK-MB (CK-2) Rel Index Troponin T C-Reactive Protein NT-Pro-B Natriuret Pep Total Protein Albumin LDL Cholesterol Direct Urine WBC (Auto) 09/09/18 09/09/18 09/09/18 05:52 11:50 16:28 WBC RBC Hgb Hct MCV RDW Plt Count Lymph % (Auto) [place] % (Auto) Eos % (Auto) Baso % (Auto) Lymph # Seg Neuts % (Manual) Lymphocytes % (Manual) Monocytes % (Manual) Basophils % (Manual) Nucleated RBC % Seg Neutrophils # Man Lymphocytes # (Manual) Monocytes # (Manual) PT INR D-Dimer POC ABG pH POC ABG pCO2 POC ABG pO2 Sodium 136 L Potassium Chloride Carbon Dioxide BUN 34 H Creatinine Glucose POC Glucose 122 H 170 H Lactic Acid Uric Acid Calcium 8.1 L Total Bilirubin AST ALT Total Creatine Kinase CK-MB (CK-2) CK-MB (CK-2) Rel Index Troponin T C-Reactive Protein NT-Pro-B Natriuret Pep Total Protein Albumin LDL Cholesterol Direct Urine WBC (Auto) 09/09/18 09/10/18 09/10/18 22:02 05:09 05:09 WBC 3.9 L RBC 2.63 L Hgb 8.2 L Hct 25.0 L MCV 95 H RDW 17.4 H Plt Count Lymph % (Auto) Mitchell % (Auto) 15.9 H Eos % (Auto) Baso % (Auto) 2.0 H Lymph # 0.6 L Seg Neuts % (Manual) Lymphocytes % (Manual) Monocytes % (Manual) Basophils % (Manual) Nucleated RBC % Seg Neutrophils # Man Lymphocytes # (Manual) Monocytes # (Manual) PT INR D-Dimer POC ABG pH POC ABG pCO2 POC ABG pO2 Sodium Potassium 5.1 H Chloride Carbon Dioxide BUN 31 H Creatinine Glucose 106 H POC Glucose 144 H Lactic Acid Uric Acid Calcium 8.3 L Total Bilirubin AST ALT Total Creatine Kinase CK-MB (CK-2) CK-MB (CK-2) Rel Index Troponin T C-Reactive Protein NT-Pro-B Natriuret Pep Total Protein Albumin LDL Cholesterol Direct Urine WBC (Auto) 09/10/18 09/10/18 09/10/18 13:09 17:07 21:13 WBC RBC Hgb Hct MCV RDW Plt Count Lymph % (Auto) [place] % (Auto) Eos % (Auto) Baso % (Auto) Lymph # Seg Neuts % (Manual) Lymphocytes % (Manual) Monocytes % (Manual) Basophils % (Manual) Nucleated RBC % Seg Neutrophils # Man Lymphocytes # (Manual) Monocytes # (Manual) PT INR D-Dimer POC ABG pH POC ABG pCO2 POC ABG pO2 Sodium Potassium Chloride Carbon Dioxide BUN Creatinine Glucose POC Glucose 134 H 117 H 154 H Lactic Acid Uric Acid Calcium Total Bilirubin AST ALT Total Creatine Kinase CK-MB (CK-2) CK-MB (CK-2) Rel Index Troponin T C-Reactive Protein NT-Pro-B Natriuret Pep Total Protein Albumin LDL Cholesterol Direct Urine WBC (Auto) 09/11/18 09/11/18 09/11/18 06:00 06:00 09:11 WBC 3.5 L RBC 2.41 L Hgb 7.4 L Hct 23.0 L MCV 96 H RDW 18.1 H Plt Count Lymph % (Auto) [place] % (Auto) 15.3 H Eos % (Auto) 5.2 H Baso % (Auto) 2.6 H Lymph # 0.6 L Seg Neuts % (Manual) Lymphocytes % (Manual) Monocytes % (Manual) Basophils % (Manual) Nucleated RBC % Seg Neutrophils # Man Lymphocytes # (Manual) Monocytes # (Manual) PT INR D-Dimer POC ABG pH POC ABG pCO2 POC ABG pO2 Sodium Potassium 5.4 H Chloride Carbon Dioxide BUN 30 H Creatinine Glucose 108 H POC Glucose 124 H Lactic Acid Uric Acid Calcium Total Bilirubin AST ALT Total Creatine Kinase CK-MB (CK-2) CK-MB (CK-2) Rel Index Troponin T C-Reactive Protein NT-Pro-B Natriuret Pep Total Protein Albumin LDL Cholesterol Direct Urine WBC (Auto) 09/11/18 09/11/18 09/11/18 12:06 16:18 21:26 WBC RBC Hgb Hct MCV RDW Plt Count Lymph % (Auto) [place] % (Auto) Eos % (Auto) Baso % (Auto) Lymph # Seg Neuts % (Manual) Lymphocytes % (Manual) Monocytes % (Manual) Basophils % (Manual) Nucleated RBC % Seg Neutrophils # Man Lymphocytes # (Manual) Monocytes # (Manual) PT INR D-Dimer POC ABG pH POC ABG pCO2 POC ABG pO2 Sodium Potassium Chloride Carbon Dioxide BUN Creatinine Glucose POC Glucose 144 H 138 H 163 H Lactic Acid Uric Acid Calcium Total Bilirubin AST ALT Total Creatine Kinase CK-MB (CK-2) CK-MB (CK-2) Rel Index Troponin T C-Reactive Protein NT-Pro-B Natriuret Pep Total Protein Albumin LDL Cholesterol Direct Urine WBC (Auto) 09/12/18 09/12/18 09/12/18 09:17 09:17 11:16 WBC 4.0 L RBC 2.62 L Hgb 8.1 L Hct 25.0 L MCV 96 H RDW 17.8 H Plt Count Lymph % (Auto) [place] % (Auto) Eos % (Auto) Baso % (Auto) Lymph # Seg Neuts % (Manual) Lymphocytes % (Manual) Monocytes % (Manual) Basophils % (Manual) Nucleated RBC % Seg Neutrophils # Man Lymphocytes # (Manual) Monocytes # (Manual) PT INR D-Dimer POC ABG pH POC ABG pCO2 POC ABG pO2 Sodium Potassium 5.3 H Chloride Carbon Dioxide BUN 27 H Creatinine Glucose 113 H POC Glucose 147 H Lactic Acid Uric Acid Calcium Total Bilirubin AST ALT Total Creatine Kinase CK-MB (CK-2) CK-MB (CK-2) Rel Index Troponin T C-Reactive Protein NT-Pro-B Natriuret Pep Total Protein Albumin LDL Cholesterol Direct Urine WBC (Auto) 09/12/18 09/12/18 09/13/18 15:31 21:23 06:48 WBC 3.7 L RBC 2.49 L Hgb 7.7 L Hct 23.7 L MCV 95 H RDW 17.4 H Plt Count Lymph % (Auto) [place] % (Auto) Eos % (Auto) Baso % (Auto) Lymph # Seg Neuts % (Manual) Lymphocytes % (Manual) Monocytes % (Manual) Basophils % (Manual) Nucleated RBC % Seg Neutrophils # Man Lymphocytes # (Manual) Monocytes # (Manual) PT INR D-Dimer POC ABG pH POC ABG pCO2 POC ABG pO2 Sodium Potassium Chloride Carbon Dioxide BUN Creatinine Glucose POC Glucose 126 H 116 H Lactic Acid Uric Acid Calcium Total Bilirubin AST ALT Total Creatine Kinase CK-MB (CK-2) CK-MB (CK-2) Rel Index Troponin T C-Reactive Protein NT-Pro-B Natriuret Pep Total Protein Albumin LDL Cholesterol Direct Urine WBC (Auto) 09/13/18 06:48 WBC RBC Hgb Hct MCV RDW Plt Count Lymph % (Auto) [place] % (Auto) Eos % (Auto) Baso % (Auto) Lymph # Seg Neuts % (Manual) Lymphocytes % (Manual) Monocytes % (Manual) Basophils % (Manual) Nucleated RBC % Seg Neutrophils # Man Lymphocytes # (Manual) Monocytes # (Manual) PT INR D-Dimer POC ABG pH POC ABG pCO2 POC ABG pO2 Sodium Potassium 5.5 H Chloride Carbon Dioxide BUN 25 H Creatinine Glucose 106 H POC Glucose Lactic Acid Uric Acid Calcium Total Bilirubin AST ALT Total Creatine Kinase CK-MB (CK-2) CK-MB (CK-2) Rel Index Troponin T C-Reactive Protein NT-Pro-B Natriuret Pep Total Protein Albumin LDL Cholesterol Direct Urine WBC (Auto) Allied health notes reviewed: RT
[2018-09-14 05:26] LABS: Calcium 8.2 mg/dL (8.4-10.2)
[2018-09-14] MEDS: HumaLOG SUB-Q SCH ×4 (08:24→22:18)
--- NOTE | 2018-09-14 09:03 | Progress Note ---
Assessment and Plan -s/p Cardiopulmonary arrest with ROSC -Acute on chronic hypoxemic respiratory failure s/p MVS -Lactic acidosis, resolved -Acute metabolic/respiratory acidosis -Acute on chronic renal failure (multifactorial) -Sepsis probably secondary to aspiration PNA, resolving -AE-COPD -Acute metabolic-toxic encephalopathy -Morbid obesity -NSTEMI- probably type 2 ischemia -Type 2 DM -h/o Liver disease -h/o Colon CA -Hyperkalemia -LEFT TMJ JOINT DISLOCATION-POA -Supplemental oxygen to keep O2 sats 88-90% -Restrictive oxygen therapy -Bronchodilators -Modified diet with aspiration precautions -Accuchecks with glycemic control. Target blood glucose <180mg/dL -Prevention of delirium, maintenance of sleep-wake cycle -Antibiotics per ID -Avoid nephrotoxic agents, adjust all antibiotics and medications for CrCL and GFR -VTE and Stress ulcer prophylaxis( Heparin/Famotidine) --PT/OT to treat -increase activity -Will need maxillo facial evaluation -Nocturnal BIPAP and prn during the day Discussed with RT/RN Updated the patient and his at the bedside. CONDITION: IMPROVING PROGNOSIS:FAIR CODE STATUS: FULL CODE Subjective Date of service: 09/14/18 Principal diagnosis: s/p cardiac arrest; severe sepsis; acute hypoxemic-hyp ercapnic resp failure Interval history: Patient is seen today for: cardiopulmonary arrest, severe sepsis, acute hypoxemic-hypercapnic respiratory failure s/p MVS, KHRIS on CKD on HD Seen and examined at bedside; 24hour events reviewed; nursing and respiratory care staff consulted; no adverse overnight events reported to me; Awake and alert, obeying simple commands, being fed by his . Making good amounts of urine, HD on hold for now. He denies any chest pain, no shortness of breath, no nausea or vomiting, no fevers Objective Vital Signs - 12hr 09/13/18 09/13/18 09/14/18 21:43 22:00 02:08 Temperature 97.5 F L Pulse Rate 97 H 89 Pulse Rate [ 89 From Monitor] Respiratory 16 16 Rate Blood Pressure 150/86 144/74 O2 Sat by Pulse 96 96 Oximetry 09/14/18 09/14/18 07:07 08:01 Temperature 98.5 F Pulse Rate 90 Pulse Rate [ From Monitor] Respiratory 20 18 Rate Blood Pressure 141/62 O2 Sat by Pulse 97 96 Oximetry Constitutional: no acute distress, alert Eyes: non-icteric ENT: oropharynx moist, other Neck: supple, no JVD, other (short neck) Effort: mildly labored Ascultation: Bilateral: diminished breath sounds, rhonchi (coarse BS bilaterally) Percussion: Bilateral: not dull Cardiovascular: regular rate and rhythm, other (S1,S2, no murmurs, no gallops or rubs) Gastrointestinal: normoactive bowel sounds, soft, non-tender, non-distended, other (Madison catheter in place, clear urine) Integumentary: normal, other (right femoral HD catheter) Extremities: no cyanosis, no edema, pink and warm, pulses normal, no ischemia or petechiae Neurologic: non-focal exam (grossly), pupils equal and round, motor strength normal and, other (awake and alert, obeying one step commands) Psychiatric: mood appropriate, affect normal CBC and BMP: 09/13/18 06:48 09/14/18 04:44 ABG, PT/INR, D-dimer: ABG POC ABG pH 7.410 (7.35-7.45) 08/30/18 13:35 POC ABG pCO2 41.4 (35-45) 08/30/18 13:35 POC ABG pO2 99 (80-105) 08/30/18 13:35 POC ABG HCO3 26.2 (22-26 mml/L) 08/30/18 13:35 POC ABG Total CO2 27 (23-27mmol/L) 08/30/18 13:35 POC ABG O2 Sat 98 08/30/18 13:35 PT/INR, D-dimer PT 15.6 Sec. (12.2-14.9) H 08/25/18 16:43 INR 1.27 (0.87-1.13) H 08/25/18 16:43 1978.25 ng/mlDDU (0-234) H 08/24/18 13:41 Abnormal lab findings: Abnormal Labs 08/21/18 08/21/18 08/21/18 04:42 04:42 04:42 WBC 19.1 H RBC 2.49 L Hgb 7.7 L Hct 24.5 L MCV 98 H RDW 17.7 H Plt Count Lymph % (Auto) [place] % (Auto) Eos % (Auto) Baso % (Auto) Lymph # Seg Neuts % (Manual) 84.0 H Lymphocytes % (Manual) 7.0 L Monocytes % (Manual) 9.0 H Basophils % (Manual) Nucleated RBC % Seg Neutrophils # Man 16.0 H Lymphocytes # (Manual) Monocytes # (Manual) 1.7 H PT 20.1 H INR 1.76 H D-Dimer POC ABG pH POC ABG pCO2 POC ABG pO2 Sodium Potassium Chloride Carbon Dioxide BUN Creatinine Glucose POC Glucose Lactic Acid Uric Acid Calcium Total Bilirubin AST ALT Total Creatine Kinase CK-MB (CK-2) CK-MB (CK-2) Rel Index Troponin T 0.032 H C-Reactive Protein NT-Pro-B Natriuret Pep Total Protein Albumin LDL Cholesterol Direct 44 L Urine WBC (Auto) 08/21/18 08/21/18 08/21/18 04:42 04:42 04:42 WBC RBC Hgb Hct MCV RDW Plt Count Lymph % (Auto) [place] % (Auto) Eos % (Auto) Baso % (Auto) Lymph # Seg Neuts % (Manual) Lymphocytes % (Manual) Monocytes % (Manual) Basophils % (Manual) Nucleated RBC % Seg Neutrophils # Man Lymphocytes # (Manual) Monocytes # (Manual) PT INR D-Dimer POC ABG pH POC ABG pCO2 POC ABG pO2 Sodium Potassium 6.0 H Chloride Carbon Dioxide 15 L BUN 57 H Creatinine 4.3 H Glucose 111 H POC Glucose Lactic Acid 5.80 H* Uric Acid Calcium Total Bilirubin 1.80 H AST 212 H ALT 94 H Total Creatine Kinase CK-MB (CK-2) CK-MB (CK-2) Rel Index Troponin T C-Reactive Protein NT-Pro-B Natriuret Pep 86353 H Total Protein Albumin 3.2 L LDL Cholesterol Direct Urine WBC (Auto) 08/21/18 08/21/18 08/21/18 05:08 05:58 05:58 WBC RBC Hgb Hct MCV RDW Plt Count Lymph % (Auto) [place] % (Auto) Eos % (Auto) Baso % (Auto) Lymph # Seg Neuts % (Manual) Lymphocytes % (Manual) Monocytes % (Manual) Basophils % (Manual) Nucleated RBC % Seg Neutrophils # Man Lymphocytes # (Manual) Monocytes # (Manual) PT INR D-Dimer POC ABG pH 7.164 L POC ABG pCO2 46.3 H POC ABG pO2 229 H Sodium Potassium Chloride Carbon Dioxide BUN Creatinine Glucose POC Glucose Lactic Acid 5.10 H* Uric Acid Calcium Total Bilirubin AST ALT Total Creatine Kinase CK-MB (CK-2) CK-MB (CK-2) Rel Index Troponin T 0.035 H C-Reactive Protein NT-Pro-B Natriuret Pep Total Protein Albumin LDL Cholesterol Direct Urine WBC (Auto) 08/21/18 08/21/18 08/21/18 06:45 06:45 06:53 WBC RBC Hgb Hct MCV RDW Plt Count Lymph % (Auto) [place] % (Auto) Eos % (Auto) Baso % (Auto) Lymph # Seg Neuts % (Manual) Lymphocytes % (Manual) Monocytes % (Manual) Basophils % (Manual) Nucleated RBC % Seg Neutrophils # Man Lymphocytes # (Manual) Monocytes # (Manual) PT INR D-Dimer POC ABG pH 7.160 L POC ABG pCO2 46.8 H POC ABG pO2 Sodium Potassium Chloride Carbon Dioxide BUN Creatinine Glucose POC Glucose Lactic Acid 4.70 H* Uric Acid Calcium Total Bilirubin AST ALT Total Creatine Kinase 234 H CK-MB (CK-2) 9.1 H CK-MB (CK-2) Rel Index Troponin T 0.032 H C-Reactive Protein NT-Pro-B Natriuret Pep Total Protein Albumin LDL Cholesterol Direct Urine WBC (Auto) 08/21/18 08/21/18 08/21/18 10:43 10:43 10:45 WBC RBC Hgb Hct MCV RDW Plt Count Lymph % (Auto) [place] % (Auto) Eos % (Auto) Baso % (Auto) Lymph # Seg Neuts % (Manual) Lymphocytes % (Manual) Monocytes % (Manual) Basophils % (Manual) Nucleated RBC % Seg Neutrophils # Man Lymphocytes # (Manual) Monocytes # (Manual) PT INR D-Dimer POC ABG pH POC ABG pCO2 POC ABG pO2 Sodium Potassium Chloride Carbon Dioxide 17 L BUN 59 H Creatinine 4.2 H Glucose POC Glucose Lactic Acid 3.70 H* Uric Acid Calcium Total Bilirubin AST ALT Total Creatine Kinase 222 H CK-MB (CK-2) 9.2 H CK-MB (CK-2) Rel Index 4.1 H Troponin T 0.044 H D C-Reactive Protein NT-Pro-B Natriuret Pep Total Protein Albumin LDL Cholesterol Direct Urine WBC (Auto) 08/21/18 08/21/18 08/21/18 11:38 12:33 15:03 WBC RBC Hgb Hct MCV RDW Plt Count Lymph % (Auto) [place] % (Auto) Eos % (Auto) Baso % (Auto) Lymph # Seg Neuts % (Manual) Lymphocytes % (Manual) Monocytes % (Manual) Basophils % (Manual) Nucleated RBC % Seg Neutrophils # Man Lymphocytes # (Manual) Monocytes # (Manual) PT INR D-Dimer POC ABG pH 7.250 L POC ABG pCO2 POC ABG pO2 121 H Sodium Potassium Chloride Carbon Dioxide BUN Creatinine Glucose POC Glucose 129 H Lactic Acid Uric Acid Calcium Total Bilirubin AST ALT Total Creatine Kinase CK-MB (CK-2) CK-MB (CK-2) Rel Index Troponin T C-Reactive Protein NT-Pro-B Natriuret Pep Total Protein Albumin LDL Cholesterol Direct Urine WBC (Auto) 13.0 H 08/21/18 08/22/18 08/22/18 15:47 00:01 04:27 WBC RBC Hgb Hct MCV RDW Plt Count Lymph % (Auto) [place] % (Auto) Eos % (Auto) Baso % (Auto) Lymph # Seg Neuts % (Manual) Lymphocytes % (Manual) Monocytes % (Manual) Basophils % (Manual) Nucleated RBC % Seg Neutrophils # Man Lymphocytes # (Manual) Monocytes # (Manual) PT INR D-Dimer POC ABG pH 7.457 H POC ABG pCO2 POC ABG pO2 117 H Sodium Potassium Chloride Carbon Dioxide BUN Creatinine Glucose POC Glucose 211 H Lactic Acid 2.70 H* Uric Acid Calcium Total Bilirubin AST ALT Total Creatine Kinase CK-MB (CK-2) CK-MB (CK-2) Rel Index Troponin T C-Reactive Protein NT-Pro-B Natriuret Pep Total Protein Albumin LDL Cholesterol Direct Urine WBC (Auto) 08/22/18 08/22/18 08/22/18 05:46 06:10 06:10 WBC RBC 2.27 L Hgb 7.0 L Hct 21.2 L MCV RDW 16.8 H Plt Count 129 L Lymph % (Auto) [place] % (Auto) Eos % (Auto) Baso % (Auto) Lymph # Seg Neuts % (Manual) 95.0 H Lymphocytes % (Manual) 1.0 L Monocytes % (Manual) Basophils % (Manual) Nucleated RBC % 1.0 H Seg Neutrophils # Man 7.8 H Lymphocytes # (Manual) 0.1 L Monocytes # (Manual) PT INR D-Dimer POC ABG pH POC ABG pCO2 POC ABG pO2 Sodium Potassium Chloride Carbon Dioxide 20 L BUN 63 H Creatinine 3.9 H Glucose 205 H POC Glucose 223 H Lactic Acid Uric Acid Calcium Total Bilirubin AST ALT Total Creatine Kinase CK-MB (CK-2) CK-MB (CK-2) Rel Index Troponin T C-Reactive Protein NT-Pro-B Natriuret Pep Total Protein Albumin LDL Cholesterol Direct Urine WBC (Auto) 08/22/18 08/22/18 08/22/18 06:10 12:57 16:21 WBC RBC Hgb Hct MCV RDW Plt Count Lymph % (Auto) [place] % (Auto) Eos % (Auto) Baso % (Auto) Lymph # Seg Neuts % (Manual) Lymphocytes % (Manual) Monocytes % (Manual) Basophils % (Manual) Nucleated RBC % Seg Neutrophils # Man Lymphocytes # (Manual) Monocytes # (Manual) PT INR D-Dimer POC ABG pH 7.477 H POC ABG pCO2 POC ABG pO2 Sodium Potassium Chloride Carbon Dioxide BUN Creatinine Glucose POC Glucose 166 H Lactic Acid Uric Acid Calcium Total Bilirubin AST ALT Total Creatine Kinase CK-MB (CK-2) CK-MB (CK-2) Rel Index Troponin T C-Reactive Protein 23.60 H NT-Pro-B Natriuret Pep Total Protein Albumin LDL Cholesterol Direct Urine WBC (Auto) 08/22/18 08/22/18 08/23/18 17:41 23:42 04:38 WBC RBC Hgb Hct MCV RDW Plt Count Lymph % (Auto) [place] % (Auto) Eos % (Auto) Baso % (Auto) Lymph # Seg Neuts % (Manual) Lymphocytes % (Manual) Monocytes % (Manual) Basophils % (Manual) Nucleated RBC % Seg Neutrophils # Man Lymphocytes # (Manual) Monocytes # (Manual) PT INR D-Dimer POC ABG pH 7.249 L POC ABG pCO2 53.5 H POC ABG pO2 73 L Sodium Potassium Chloride Carbon Dioxide BUN Creatinine Glucose POC Glucose 131 H 168 H Lactic Acid Uric Acid Calcium Total Bilirubin AST ALT Total Creatine Kinase CK-MB (CK-2) CK-MB (CK-2) Rel Index Troponin T C-Reactive Protein NT-Pro-B Natriuret Pep Total Protein Albumin LDL Cholesterol Direct Urine WBC (Auto) 08/23/18 08/23/18 08/23/18 04:52 04:52 04:52 WBC RBC 2.39 L Hgb 7.5 L Hct 22.8 L MCV 95 H RDW 17.6 H Plt Count Lymph % (Auto) [place] % (Auto) Eos % (Auto) Baso % (Auto) Lymph # Seg Neuts % (Manual) Lymphocytes % (Manual) Monocytes % (Manual) Basophils % (Manual) Nucleated RBC % Seg Neutrophils # Man Lymphocytes # (Manual) Monocytes # (Manual) PT INR D-Dimer POC ABG pH POC ABG pCO2 POC ABG pO2 Sodium Potassium 5.6 H 5.6 H Chloride Carbon Dioxide 21 L BUN 71 H 72 H Creatinine 4.1 H 4.0 H Glucose 141 H 140 H POC Glucose Lactic Acid Uric Acid Calcium 8.3 L 8.2 L Total Bilirubin AST 247 H ALT 220 H Total Creatine Kinase CK-MB (CK-2) CK-MB (CK-2) Rel Index Troponin T C-Reactive Protein NT-Pro-B Natriuret Pep Total Protein Albumin 2.8 L LDL Cholesterol Direct Urine WBC (Auto) 08/23/18 08/23/18 08/23/18 05:50 08:38 12:21 WBC RBC Hgb Hct MCV RDW Plt Count Lymph % (Auto) [place] % (Auto) Eos % (Auto) Baso % (Auto) Lymph # Seg Neuts % (Manual) Lymphocytes % (Manual) Monocytes % (Manual) Basophils % (Manual) Nucleated RBC % Seg Neutrophils # Man Lymphocytes # (Manual) Monocytes # (Manual) PT INR D-Dimer POC ABG pH POC ABG pCO2 POC ABG pO2 Sodium Potassium Chloride Carbon Dioxide BUN Creatinine Glucose POC Glucose 160 H 177 H Lactic Acid Uric Acid Calcium Total Bilirubin AST ALT Total Creatine Kinase CK-MB (CK-2) CK-MB (CK-2) Rel Index Troponin T C-Reactive Protein NT-Pro-B Natriuret Pep 82374 H Total Protein Albumin LDL Cholesterol Direct Urine WBC (Auto) 08/23/18 08/23/18 08/23/18 12:36 14:24 18:05 WBC RBC Hgb Hct MCV RDW Plt Count Lymph % (Auto) [place] % (Auto) Eos % (Auto) Baso % (Auto) Lymph # Seg Neuts % (Manual) Lymphocytes % (Manual) Monocytes % (Manual) Basophils % (Manual) Nucleated RBC % Seg Neutrophils # Man Lymphocytes # (Manual) Monocytes # (Manual) PT INR D-Dimer POC ABG pH 7.337 L POC ABG pCO2 POC ABG pO2 145 H Sodium 136 L Potassium 5.2 H Chloride Carbon Dioxide BUN 76 H Creatinine 4.2 H Glucose 158 H POC Glucose 169 H Lactic Acid Uric Acid Calcium 8.1 L Total Bilirubin AST ALT Total Creatine Kinase CK-MB (CK-2) CK-MB (CK-2) Rel Index Troponin T C-Reactive Protein NT-Pro-B Natriuret Pep Total Protein Albumin LDL Cholesterol Direct Urine WBC (Auto) 08/23/18 08/23/18 08/24/18 22:43 23:42 05:16 WBC RBC Hgb Hct MCV RDW Plt Count Lymph % (Auto) [place] % (Auto) Eos % (Auto) Baso % (Auto) Lymph # Seg Neuts % (Manual) Lymphocytes % (Manual) Monocytes % (Manual) Basophils % (Manual) Nucleated RBC % Seg Neutrophils # Man Lymphocytes # (Manual) Monocytes # (Manual) PT INR D-Dimer POC ABG pH POC ABG pCO2 POC ABG pO2 Sodium 136 L Potassium 5.3 H 5.2 H Chloride 97.9 L Carbon Dioxide BUN 80 H 86 H Creatinine 4.0 H 4.3 H Glucose 164 H 202 H POC Glucose 183 H Lactic Acid Uric Acid Calcium 7.9 L Total Bilirubin AST ALT Total Creatine Kinase CK-MB (CK-2) CK-MB (CK-2) Rel Index Troponin T C-Reactive Protein NT-Pro-B Natriuret Pep Total Protein Albumin LDL Cholesterol Direct Urine WBC (Auto) 08/24/18 08/24/18 08/24/18 05:21 05:29 10:10 WBC RBC 2.47 L Hgb 7.5 L Hct 23.3 L MCV RDW 17.5 H Plt Count 118 L Lymph % (Auto) [place] % (Auto) Eos % (Auto) Baso % (Auto) Lymph # Seg Neuts % (Manual) 92.0 H Lymphocytes % (Manual) 2.0 L Monocytes % (Manual) Basophils % (Manual) Nucleated RBC % Seg Neutrophils # Man 8.8 H Lymphocytes # (Manual) 0.2 L Monocytes # (Manual) PT INR D-Dimer POC ABG pH 7.243 L POC ABG pCO2 56.8 H POC ABG pO2 Sodium Potassium Chloride Carbon Dioxide BUN Creatinine Glucose POC Glucose 209 H Lactic Acid Uric Acid Calcium Total Bilirubin AST ALT Total Creatine Kinase CK-MB (CK-2) CK-MB (CK-2) Rel Index Troponin T C-Reactive Protein NT-Pro-B Natriuret Pep Total Protein Albumin LDL Cholesterol Direct Urine WBC (Auto) 08/24/18 08/24/18 08/24/18 10:10 11:19 13:41 WBC RBC Hgb Hct MCV RDW Plt Count Lymph % (Auto) [place] % (Auto) Eos % (Auto) Baso % (Auto) Lymph # Seg Neuts % (Manual) Lymphocytes % (Manual) Monocytes % (Manual) Basophils % (Manual) Nucleated RBC % Seg Neutrophils # Man Lymphocytes # (Manual) Monocytes # (Manual) PT INR D-Dimer 1978.25 H POC ABG pH POC ABG pCO2 POC ABG pO2 Sodium Potassium Chloride Carbon Dioxide BUN Creatinine Glucose POC Glucose 212 H Lactic Acid Uric Acid Calcium Total Bilirubin AST ALT Total Creatine Kinase CK-MB (CK-2) CK-MB (CK-2) Rel Index Troponin T C-Reactive Protein NT-Pro-B Natriuret Pep 86049 H Total Protein Albumin LDL Cholesterol Direct Urine WBC (Auto) 08/24/18 08/24/18 08/24/18 13:41 14:27 17:23 WBC RBC Hgb Hct MCV RDW Plt Count Lymph % (Auto) [place] % (Auto) Eos % (Auto) Baso % (Auto) Lymph # Seg Neuts % (Manual) Lymphocytes % (Manual) Monocytes % (Manual) Basophils % (Manual) Nucleated RBC % Seg Neutrophils # Man Lymphocytes # (Manual) Monocytes # (Manual) PT INR D-Dimer POC ABG pH POC ABG pCO2 POC ABG pO2 Sodium 136 L Potassium 5.1 H Chloride 97.8 L Carbon Dioxide BUN 90 H Creatinine 4.1 H Glucose 157 H POC Glucose 155 H Lactic Acid Uric Acid Calcium 8.0 L Total Bilirubin AST ALT Total Creatine Kinase CK-MB (CK-2) CK-MB (CK-2) Rel Index Troponin T C-Reactive Protein 9.00 H NT-Pro-B Natriuret Pep Total Protein Albumin LDL Cholesterol Direct Urine WBC (Auto) 08/25/18 08/25/18 08/25/18 00:38 05:22 05:57 WBC RBC Hgb Hct MCV RDW Plt Count Lymph % (Auto) [place] % (Auto) Eos % (Auto) Baso % (Auto) Lymph # Seg Neuts % (Manual) Lymphocytes % (Manual) Monocytes % (Manual) Basophils % (Manual) Nucleated RBC % Seg Neutrophils # Man Lymphocytes # (Manual) Monocytes # (Manual) PT INR D-Dimer POC ABG pH 7.238 L POC ABG pCO2 58.2 H POC ABG pO2 Sodium Potassium 5.4 H Chloride Carbon Dioxide BUN 98 H Creatinine 4.3 H Glucose 217 H POC Glucose 176 H Lactic Acid Uric Acid Calcium 8.3 L Total Bilirubin AST ALT Total Creatine Kinase CK-MB (CK-2) CK-MB (CK-2) Rel Index Troponin T C-Reactive Protein NT-Pro-B Natriuret Pep 03075 H Total Protein Albumin LDL Cholesterol Direct Urine WBC (Auto) 08/25/18 08/25/18 08/25/18 06:56 08:59 11:38 WBC RBC Hgb Hct MCV RDW Plt Count Lymph % (Auto) [place] % (Auto) Eos % (Auto) Baso % (Auto) Lymph # Seg Neuts % (Manual) Lymphocytes % (Manual) Monocytes % (Manual) Basophils % (Manual) Nucleated RBC % Seg Neutrophils # Man Lymphocytes # (Manual) Monocytes # (Manual) PT INR D-Dimer POC ABG pH 7.348 L POC ABG pCO2 48.6 H POC ABG pO2 Sodium Potassium Chloride Carbon Dioxide BUN Creatinine Glucose POC Glucose 247 H 235 H Lactic Acid Uric Acid Calcium Total Bilirubin AST ALT Total Creatine Kinase CK-MB (CK-2) CK-MB (CK-2) Rel Index Troponin T C-Reactive Protein NT-Pro-B Natriuret Pep Total Protein Albumin LDL Cholesterol Direct Urine WBC (Auto) 08/25/18 08/25/18 08/25/18 12:29 16:43 16:43 WBC 14.7 H RBC 2.90 L Hgb 8.9 L Hct 27.4 L MCV 95 H RDW 17.3 H Plt Count 119 L Lymph % (Auto) [place] % (Auto) Eos % (Auto) Baso % (Auto) Lymph # Seg Neuts % (Manual) 94.0 H Lymphocytes % (Manual) 2.0 L Monocytes % (Manual) Basophils % (Manual) Nucleated RBC % Seg Neutrophils # Man 13.8 H Lymphocytes # (Manual) 0.3 L Monocytes # (Manual) PT 15.6 H INR 1.27 H D-Dimer POC ABG pH POC ABG pCO2 POC ABG pO2 Sodium Potassium Chloride Carbon Dioxide BUN Creatinine Glucose POC Glucose 237 H Lactic Acid Uric Acid Calcium Total Bilirubin AST ALT Total Creatine Kinase CK-MB (CK-2) CK-MB (CK-2) Rel Index Troponin T C-Reactive Protein NT-Pro-B Natriuret Pep Total Protein Albumin LDL Cholesterol Direct Urine WBC (Auto) 08/25/18 08/26/18 08/26/18 17:22 00:16 04:56 WBC RBC Hgb Hct MCV RDW Plt Count Lymph % (Auto) [place] % (Auto) Eos % (Auto) Baso % (Auto) Lymph # Seg Neuts % (Manual) Lymphocytes % (Manual) Monocytes % (Manual) Basophils % (Manual) Nucleated RBC % Seg Neutrophils # Man Lymphocytes # (Manual) Monocytes # (Manual) PT INR D-Dimer POC ABG pH POC ABG pCO2 45.2 H POC ABG pO2 Sodium Potassium Chloride Carbon Dioxide BUN Creatinine Glucose POC Glucose 200 H 180 H Lactic Acid Uric Acid Calcium Total Bilirubin AST ALT Total Creatine Kinase CK-MB (CK-2) CK-MB (CK-2) Rel Index Troponin T C-Reactive Protein NT-Pro-B Natriuret Pep Total Protein Albumin LDL Cholesterol Direct Urine WBC (Auto) 08/26/18 08/26/18 08/26/18 05:53 06:20 08:48 WBC RBC Hgb Hct MCV RDW Plt Count Lymph % (Auto) [place] % (Auto) Eos % (Auto) Baso % (Auto) Lymph # Seg Neuts % (Manual) Lymphocytes % (Manual) Monocytes % (Manual) Basophils % (Manual) Nucleated RBC % Seg Neutrophils # Man Lymphocytes # (Manual) Monocytes # (Manual) PT INR D-Dimer POC ABG pH POC ABG pCO2 POC ABG pO2 Sodium Potassium Chloride Carbon Dioxide BUN 106 H Creatinine 3.9 H Glucose 137 H POC Glucose 131 H 126 H Lactic Acid Uric Acid Calcium 8.1 L Total Bilirubin AST ALT Total Creatine Kinase CK-MB (CK-2) CK-MB (CK-2) Rel Index Troponin T C-Reactive Protein NT-Pro-B Natriuret Pep > 13252 H Total Protein Albumin LDL Cholesterol Direct Urine WBC (Auto) 08/26/18 08/26/18 08/26/18 11:39 17:33 18:02 WBC RBC Hgb Hct MCV RDW Plt Count Lymph % (Auto) [place] % (Auto) Eos % (Auto) Baso % (Auto) Lymph # Seg Neuts % (Manual) Lymphocytes % (Manual) Monocytes % (Manual) Basophils % (Manual) Nucleated RBC % Seg Neutrophils # Man Lymphocytes # (Manual) Monocytes # (Manual) PT INR D-Dimer POC ABG pH POC ABG pCO2 POC ABG pO2 58 L Sodium Potassium Chloride Carbon Dioxide BUN Creatinine Glucose POC Glucose 156 H 173 H Lactic Acid Uric Acid Calcium Total Bilirubin AST ALT Total Creatine Kinase CK-MB (CK-2) CK-MB (CK-2) Rel Index Troponin T C-Reactive Protein NT-Pro-B Natriuret Pep Total Protein Albumin LDL Cholesterol Direct Urine WBC (Auto) 08/26/18 08/27/18 08/27/18 23:12 04:59 11:51 WBC RBC Hgb Hct MCV RDW Plt Count Lymph % (Auto) [place] % (Auto) Eos % (Auto) Baso % (Auto) Lymph # Seg Neuts % (Manual) Lymphocytes % (Manual) Monocytes % (Manual) Basophils % (Manual) Nucleated RBC % Seg Neutrophils # Man Lymphocytes # (Manual) Monocytes # (Manual) PT INR D-Dimer POC ABG pH 7.563 H POC ABG pCO2 < 30 L POC ABG pO2 69 L Sodium Potassium Chloride Carbon Dioxide BUN Creatinine Glucose POC Glucose 130 H 107 H Lactic Acid Uric Acid Calcium Total Bilirubin AST ALT Total Creatine Kinase CK-MB (CK-2) CK-MB (CK-2) Rel Index Troponin T C-Reactive Protein NT-Pro-B Natriuret Pep Total Protein Albumin LDL Cholesterol Direct Urine WBC (Auto) 08/27/18 08/27/18 08/27/18 11:58 11:58 11:58 WBC RBC 2.66 L Hgb 8.1 L Hct 24.7 L MCV RDW 16.7 H Plt Count Lymph % (Auto) [place] % (Auto) Eos % (Auto) Baso % (Auto) Lymph # Seg Neuts % (Manual) Lymphocytes % (Manual) Monocytes % (Manual) Basophils % (Manual) Nucleated RBC % Seg Neutrophils # Man Lymphocytes # (Manual) Monocytes # (Manual) PT INR D-Dimer POC ABG pH POC ABG pCO2 POC ABG pO2 Sodium Potassium Chloride Carbon Dioxide BUN 71 H Creatinine 2.9 H Glucose POC Glucose Lactic Acid Uric Acid Calcium 7.6 L Total Bilirubin AST ALT Total Creatine Kinase CK-MB (CK-2) CK-MB (CK-2) Rel Index Troponin T C-Reactive Protein NT-Pro-B Natriuret Pep > 39101 H Total Protein 6.1 L Albumin 2.4 L LDL Cholesterol Direct Urine WBC (Auto) 08/28/18 08/28/18 08/28/18 04:38 04:49 04:49 WBC RBC 2.65 L Hgb 8.3 L Hct 25.3 L MCV 96 H RDW 17.3 H Plt Count 83 L Lymph % (Auto) [place] % (Auto) Eos % (Auto) Baso % (Auto) Lymph # Seg Neuts % (Manual) Lymphocytes % (Manual) Monocytes % (Manual) Basophils % (Manual) Nucleated RBC % Seg Neutrophils # Man Lymphocytes # (Manual) Monocytes # (Manual) PT INR D-Dimer POC ABG pH POC ABG pCO2 POC ABG pO2 112 H Sodium Potassium Chloride Carbon Dioxide BUN Creatinine Glucose POC Glucose Lactic Acid Uric Acid Calcium Total Bilirubin AST ALT Total Creatine Kinase CK-MB (CK-2) CK-MB (CK-2) Rel Index Troponin T C-Reactive Protein NT-Pro-B Natriuret Pep > 61945 H Total Protein Albumin LDL Cholesterol Direct Urine WBC (Auto) 08/28/18 08/28/18 08/29/18 04:49 14:24 00:11 WBC RBC Hgb Hct MCV RDW Plt Count Lymph % (Auto) [place] % (Auto) Eos % (Auto) Baso % (Auto) Lymph # Seg Neuts % (Manual) Lymphocytes % (Manual) Monocytes % (Manual) Basophils % (Manual) Nucleated RBC % Seg Neutrophils # Man Lymphocytes # (Manual) Monocytes # (Manual) PT INR D-Dimer POC ABG pH 7.278 L POC ABG pCO2 57.9 H POC ABG pO2 79 L Sodium Potassium Chloride Carbon Dioxide BUN 69 H Creatinine 2.4 H Glucose POC Glucose 171 H Lactic Acid Uric Acid Calcium 7.7 L Total Bilirubin AST ALT Total Creatine Kinase CK-MB (CK-2) CK-MB (CK-2) Rel Index Troponin T C-Reactive Protein NT-Pro-B Natriuret Pep Total Protein 5.4 L Albumin 2.2 L LDL Cholesterol Direct Urine WBC (Auto) 08/29/18 08/29/18 08/29/18 04:39 05:35 05:35 WBC 13.6 H RBC 3.09 L Hgb 9.4 L Hct 29.5 L MCV 96 H RDW 17.9 H Plt Count 127 L Lymph % (Auto) [place] % (Auto) Eos % (Auto) Baso % (Auto) Lymph # Seg Neuts % (Manual) Lymphocytes % (Manual) Monocytes % (Manual) Basophils % (Manual) Nucleated RBC % Seg Neutrophils # Man Lymphocytes # (Manual) Monocytes # (Manual) PT INR D-Dimer POC ABG pH 7.312 L POC ABG pCO2 57.6 H POC ABG pO2 79 L Sodium Potassium Chloride Carbon Dioxide BUN 42 H Creatinine 1.9 H Glucose 107 H POC Glucose Lactic Acid Uric Acid Calcium Total Bilirubin AST ALT Total Creatine Kinase CK-MB (CK-2) CK-MB (CK-2) Rel Index Troponin T C-Reactive Protein NT-Pro-B Natriuret Pep Total Protein Albumin LDL Cholesterol Direct Urine WBC (Auto) 08/29/18 08/29/18 08/29/18 05:48 11:37 15:32 WBC RBC Hgb Hct MCV RDW Plt Count Lymph % (Auto) [place] % (Auto) Eos % (Auto) Baso % (Auto) Lymph # Seg Neuts % (Manual) Lymphocytes % (Manual) Monocytes % (Manual) Basophils % (Manual) Nucleated RBC % Seg Neutrophils # Man Lymphocytes # (Manual) Monocytes # (Manual) PT INR D-Dimer POC ABG pH POC ABG pCO2 47.0 H POC ABG pO2 78 L Sodium Potassium Chloride Carbon Dioxide BUN Creatinine Glucose POC Glucose 114 H 116 H Lactic Acid Uric Acid Calcium Total Bilirubin AST ALT Total Creatine Kinase CK-MB (CK-2) CK-MB (CK-2) Rel Index Troponin T C-Reactive Protein NT-Pro-B Natriuret Pep Total Protein Albumin LDL Cholesterol Direct Urine WBC (Auto) 08/29/18 08/30/18 08/30/18 17:28 00:17 04:41 WBC RBC Hgb Hct MCV RDW Plt Count Lymph % (Auto) [place] % (Auto) Eos % (Auto) Baso % (Auto) Lymph # Seg Neuts % (Manual) Lymphocytes % (Manual) Monocytes % (Manual) Basophils % (Manual) Nucleated RBC % Seg Neutrophils # Man Lymphocytes # (Manual) Monocytes # (Manual) PT INR D-Dimer POC ABG pH POC ABG pCO2 48.1 H POC ABG pO2 Sodium Potassium Chloride Carbon Dioxide BUN Creatinine Glucose POC Glucose 174 H 132 H Lactic Acid Uric Acid Calcium Total Bilirubin AST ALT Total Creatine Kinase CK-MB (CK-2) CK-MB (CK-2) Rel Index Troponin T C-Reactive Protein NT-Pro-B Natriuret Pep Total Protein Albumin LDL Cholesterol Direct Urine WBC (Auto) 08/30/18 08/30/18 08/30/18 05:17 05:34 06:10 WBC RBC 2.68 L Hgb 8.2 L Hct 25.6 L MCV 96 H RDW 17.2 H Plt Count 118 L Lymph % (Auto) [place] % (Auto) Eos % (Auto) Baso % (Auto) Lymph # Seg Neuts % (Manual) Lymphocytes % (Manual) Monocytes % (Manual) Basophils % (Manual) Nucleated RBC % Seg Neutrophils # Man Lymphocytes # (Manual) Monocytes # (Manual) PT INR D-Dimer POC ABG pH POC ABG pCO2 POC ABG pO2 Sodium Potassium Chloride Carbon Dioxide BUN 54 H Creatinine 2.4 H Glucose 120 H POC Glucose 141 H Lactic Acid Uric Acid Calcium Total Bilirubin AST ALT Total Creatine Kinase CK-MB (CK-2) CK-MB (CK-2) Rel Index Troponin T C-Reactive Protein NT-Pro-B Natriuret Pep Total Protein Albumin LDL Cholesterol Direct Urine WBC (Auto) 08/30/18 08/30/18 08/30/18 13:11 18:11 23:55 WBC RBC Hgb Hct MCV RDW Plt Count Lymph % (Auto) [place] % (Auto) Eos % (Auto) Baso % (Auto) Lymph # Seg Neuts % (Manual) Lymphocytes % (Manual) Monocytes % (Manual) Basophils % (Manual) Nucleated RBC % Seg Neutrophils # Man Lymphocytes # (Manual) Monocytes # (Manual) PT INR D-Dimer POC ABG pH POC ABG pCO2 POC ABG pO2 Sodium Potassium Chloride Carbon Dioxide BUN Creatinine Glucose POC Glucose 167 H 144 H 144 H Lactic Acid Uric Acid Calcium Total Bilirubin AST ALT Total Creatine Kinase CK-MB (CK-2) CK-MB (CK-2) Rel Index Troponin T C-Reactive Protein NT-Pro-B Natriuret Pep Total Protein Albumin LDL Cholesterol Direct Urine WBC (Auto) 08/31/18 08/31/18 08/31/18 05:07 05:07 05:44 WBC RBC 2.62 L Hgb 8.1 L Hct 25.0 L MCV 96 H RDW 17.5 H Plt Count 128 L Lymph % (Auto) [place] % (Auto) Eos % (Auto) Baso % (Auto) Lymph # Seg Neuts % (Manual) Lymphocytes % (Manual) Monocytes % (Manual) Basophils % (Manual) Nucleated RBC % Seg Neutrophils # Man Lymphocytes # (Manual) Monocytes # (Manual) PT INR D-Dimer POC ABG pH POC ABG pCO2 POC ABG pO2 Sodium Potassium Chloride Carbon Dioxide BUN 58 H Creatinine 2.3 H Glucose 103 H POC Glucose 109 H Lactic Acid Uric Acid Calcium Total Bilirubin AST ALT Total Creatine Kinase CK-MB (CK-2) CK-MB (CK-2) Rel Index Troponin T C-Reactive Protein NT-Pro-B Natriuret Pep Total Protein Albumin LDL Cholesterol Direct Urine WBC (Auto) 08/31/18 08/31/18 08/31/18 11:26 13:54 19:05 WBC RBC Hgb Hct MCV RDW Plt Count Lymph % (Auto) [place] % (Auto) Eos % (Auto) Baso % (Auto) Lymph # Seg Neuts % (Manual) Lymphocytes % (Manual) Monocytes % (Manual) Basophils % (Manual) Nucleated RBC % Seg Neutrophils # Man Lymphocytes # (Manual) Monocytes # (Manual) PT INR D-Dimer POC ABG pH POC ABG pCO2 POC ABG pO2 Sodium Potassium Chloride Carbon Dioxide BUN Creatinine Glucose POC Glucose 117 H 186 H Lactic Acid Uric Acid 9.6 H Calcium Total Bilirubin AST ALT Total Creatine Kinase CK-MB (CK-2) CK-MB (CK-2) Rel Index Troponin T C-Reactive Protein NT-Pro-B Natriuret Pep Total Protein Albumin LDL Cholesterol Direct Urine WBC (Auto) 08/31/18 09/01/18 09/01/18 23:50 06:27 09:21 WBC RBC 2.74 L Hgb 8.6 L Hct 25.8 L MCV RDW 17.3 H Plt Count Lymph % (Auto) [place] % (Auto) Eos % (Auto) Baso % (Auto) Lymph # Seg Neuts % (Manual) Lymphocytes % (Manual) Monocytes % (Manual) Basophils % (Manual) Nucleated RBC % Seg Neutrophils # Man Lymphocytes # (Manual) Monocytes # (Manual) PT INR D-Dimer POC ABG pH POC ABG pCO2 POC ABG pO2 Sodium Potassium Chloride Carbon Dioxide BUN Creatinine Glucose POC Glucose 141 H 62 L Lactic Acid Uric Acid Calcium Total Bilirubin AST ALT Total Creatine Kinase CK-MB (CK-2) CK-MB (CK-2) Rel Index Troponin T C-Reactive Protein NT-Pro-B Natriuret Pep Total Protein Albumin LDL Cholesterol Direct Urine WBC (Auto) 09/01/18 09/01/18 09/01/18 09:21 12:27 17:51 WBC RBC Hgb Hct MCV RDW Plt Count Lymph % (Auto) [place] % (Auto) Eos % (Auto) Baso % (Auto) Lymph # Seg Neuts % (Manual) Lymphocytes % (Manual) Monocytes % (Manual) Basophils % (Manual) Nucleated RBC % Seg Neutrophils # Man Lymphocytes # (Manual) Monocytes # (Manual) PT INR D-Dimer POC ABG pH POC ABG pCO2 POC ABG pO2 Sodium Potassium 3.0 L D Chloride 109.8 H Carbon Dioxide BUN 45 H Creatinine 1.7 H Glucose POC Glucose 106 H 108 H Lactic Acid Uric Acid Calcium 7.1 L D Total Bilirubin AST ALT Total Creatine Kinase CK-MB (CK-2) CK-MB (CK-2) Rel Index Troponin T C-Reactive Protein NT-Pro-B Natriuret Pep Total Protein Albumin LDL Cholesterol Direct Urine WBC (Auto) 09/02/18 09/02/18 09/02/18 05:16 05:16 12:01 WBC RBC 2.60 L Hgb 8.1 L Hct 24.8 L MCV 95 H RDW 17.1 H Plt Count Lymph % (Auto) [place] % (Auto) Eos % (Auto) Baso % (Auto) Lymph # Seg Neuts % (Manual) Lymphocytes % (Manual) Monocytes % (Manual) Basophils % (Manual) Nucleated RBC % Seg Neutrophils # Man Lymphocytes # (Manual) Monocytes # (Manual) PT INR D-Dimer POC ABG pH POC ABG pCO2 POC ABG pO2 Sodium Potassium Chloride Carbon Dioxide BUN 49 H Creatinine 1.8 H Glucose 107 H POC Glucose 124 H Lactic Acid Uric Acid Calcium 8.1 L Total Bilirubin AST ALT Total Creatine Kinase CK-MB (CK-2) CK-MB (CK-2) Rel Index Troponin T C-Reactive Protein NT-Pro-B Natriuret Pep Total Protein Albumin LDL Cholesterol Direct Urine WBC (Auto) 09/02/18 09/02/18 09/03/18 18:38 23:12 08:22 WBC RBC Hgb Hct MCV RDW Plt Count Lymph % (Auto) [place] % (Auto) Eos % (Auto) Baso % (Auto) Lymph # Seg Neuts % (Manual) Lymphocytes % (Manual) Monocytes % (Manual) Basophils % (Manual) Nucleated RBC % Seg Neutrophils # Man Lymphocytes # (Manual) Monocytes # (Manual) PT INR D-Dimer POC ABG pH POC ABG pCO2 POC ABG pO2 Sodium Potassium Chloride Carbon Dioxide BUN Creatinine Glucose POC Glucose 164 H 128 H 115 H Lactic Acid Uric Acid Calcium Total Bilirubin AST ALT Total Creatine Kinase CK-MB (CK-2) CK-MB (CK-2) Rel Index Troponin T C-Reactive Protein NT-Pro-B Natriuret Pep Total Protein Albumin LDL Cholesterol Direct Urine WBC (Auto) 09/03/18 09/03/18 09/03/18 11:48 16:37 20:48 WBC RBC Hgb Hct MCV RDW Plt Count Lymph % (Auto) [place] % (Auto) Eos % (Auto) Baso % (Auto) Lymph # Seg Neuts % (Manual) Lymphocytes % (Manual) Monocytes % (Manual) Basophils % (Manual) Nucleated RBC % Seg Neutrophils # Man Lymphocytes # (Manual) Monocytes # (Manual) PT INR D-Dimer POC ABG pH POC ABG pCO2 POC ABG pO2 Sodium Potassium Chloride Carbon Dioxide BUN Creatinine Glucose POC Glucose 203 H 146 H 150 H Lactic Acid Uric Acid Calcium Total Bilirubin AST ALT Total Creatine Kinase CK-MB (CK-2) CK-MB (CK-2) Rel Index Troponin T C-Reactive Protein NT-Pro-B Natriuret Pep Total Protein Albumin LDL Cholesterol Direct Urine WBC (Auto) 09/04/18 09/04/18 09/04/18 08:29 12:08 13:32 WBC RBC Hgb Hct MCV RDW Plt Count Lymph % (Auto) [place] % (Auto) Eos % (Auto) Baso % (Auto) Lymph # Seg Neuts % (Manual) Lymphocytes % (Manual) Monocytes % (Manual) Basophils % (Manual) Nucleated RBC % Seg Neutrophils # Man Lymphocytes # (Manual) Monocytes # (Manual) PT INR D-Dimer POC ABG pH POC ABG pCO2 POC ABG pO2 Sodium 136 L Potassium Chloride Carbon Dioxide BUN 42 H Creatinine 1.6 H Glucose 180 H POC Glucose 129 H 149 H Lactic Acid Uric Acid Calcium Total Bilirubin AST ALT Total Creatine Kinase CK-MB (CK-2) CK-MB (CK-2) Rel Index Troponin T C-Reactive Protein NT-Pro-B Natriuret Pep Total Protein Albumin LDL Cholesterol Direct Urine WBC (Auto) 09/04/18 09/05/18 09/05/18 16:33 07:03 07:03 WBC RBC 2.92 L Hgb 9.1 L Hct 27.4 L MCV RDW 17.3 H Plt Count Lymph % (Auto) [place] % (Auto) Eos % (Auto) Baso % (Auto) Lymph # Seg Neuts % (Manual) 81.0 H Lymphocytes % (Manual) 7.0 L Monocytes % (Manual) 8.0 H Basophils % (Manual) Nucleated RBC % Seg Neutrophils # Man Lymphocytes # (Manual) 0.5 L Monocytes # (Manual) PT INR D-Dimer POC ABG pH POC ABG pCO2 POC ABG pO2 Sodium Potassium Chloride Carbon Dioxide BUN 40 H Creatinine Glucose 153 H POC Glucose 165 H Lactic Acid Uric Acid Calcium Total Bilirubin AST ALT Total Creatine Kinase CK-MB (CK-2) CK-MB (CK-2) Rel Index Troponin T C-Reactive Protein NT-Pro-B Natriuret Pep Total Protein Albumin LDL Cholesterol Direct Urine WBC (Auto) 09/05/18 09/05/18 09/05/18 08:00 11:51 21:20 WBC RBC Hgb Hct MCV RDW Plt Count Lymph % (Auto) [place] % (Auto) Eos % (Auto) Baso % (Auto) Lymph # Seg Neuts % (Manual) Lymphocytes % (Manual) Monocytes % (Manual) Basophils % (Manual) Nucleated RBC % Seg Neutrophils # Man Lymphocytes # (Manual) Monocytes # (Manual) PT INR D-Dimer POC ABG pH POC ABG pCO2 POC ABG pO2 Sodium Potassium Chloride Carbon Dioxide BUN Creatinine Glucose POC Glucose 146 H 207 H 114 H Lactic Acid Uric Acid Calcium Total Bilirubin AST ALT Total Creatine Kinase CK-MB (CK-2) CK-MB (CK-2) Rel Index Troponin T C-Reactive Protein NT-Pro-B Natriuret Pep Total Protein Albumin LDL Cholesterol Direct Urine WBC (Auto) 09/06/18 09/06/18 09/06/18 06:42 06:42 11:38 WBC RBC 2.90 L Hgb 9.0 L Hct 27.0 L MCV RDW 17.4 H Plt Count 130 L Lymph % (Auto) [place] % (Auto) Eos % (Auto) Baso % (Auto) Lymph # Seg Neuts % (Manual) 79.0 H Lymphocytes % (Manual) 6.0 L Monocytes % (Manual) 12.0 H Basophils % (Manual) 2.0 H Nucleated RBC % Seg Neutrophils # Man Lymphocytes # (Manual) 0.3 L Monocytes # (Manual) PT INR D-Dimer POC ABG pH POC ABG pCO2 POC ABG pO2 Sodium 136 L Potassium Chloride Carbon Dioxide BUN 39 H Creatinine Glucose 106 H POC Glucose 265 H Lactic Acid Uric Acid Calcium Total Bilirubin AST ALT Total Creatine Kinase CK-MB (CK-2) CK-MB (CK-2) Rel Index Troponin T C-Reactive Protein NT-Pro-B Natriuret Pep Total Protein Albumin LDL Cholesterol Direct Urine WBC (Auto) 09/06/18 09/06/18 09/07/18 16:37 20:55 05:12 WBC RBC 2.80 L Hgb 8.7 L Hct 26.5 L MCV 95 H RDW 17.7 H Plt Count Lymph % (Auto) 13.3 L [place] % (Auto) 14.2 H Eos % (Auto) Baso % (Auto) 1.9 H Lymph # 0.7 L Seg Neuts % (Manual) Lymphocytes % (Manual) Monocytes % (Manual) Basophils % (Manual) Nucleated RBC % Seg Neutrophils # Man Lymphocytes # (Manual) Monocytes # (Manual) PT INR D-Dimer POC ABG pH POC ABG pCO2 POC ABG pO2 Sodium Potassium Chloride Carbon Dioxide BUN Creatinine Glucose POC Glucose 131 H 135 H Lactic Acid Uric Acid Calcium Total Bilirubin AST ALT Total Creatine Kinase CK-MB (CK-2) CK-MB (CK-2) Rel Index Troponin T C-Reactive Protein NT-Pro-B Natriuret Pep Total Protein Albumin LDL Cholesterol Direct Urine WBC (Auto) 09/07/18 09/07/18 09/07/18 05:12 11:28 15:32 WBC RBC Hgb Hct MCV RDW Plt Count Lymph % (Auto) [place] % (Auto) Eos % (Auto) Baso % (Auto) Lymph # Seg Neuts % (Manual) Lymphocytes % (Manual) Monocytes % (Manual) Basophils % (Manual) Nucleated RBC % Seg Neutrophils # Man Lymphocytes # (Manual) Monocytes # (Manual) PT INR D-Dimer POC ABG pH POC ABG pCO2 POC ABG pO2 Sodium Potassium Chloride Carbon Dioxide BUN 36 H Creatinine Glucose POC Glucose 176 H 131 H Lactic Acid Uric Acid Calcium Total Bilirubin AST ALT Total Creatine Kinase CK-MB (CK-2) CK-MB (CK-2) Rel Index Troponin T C-Reactive Protein NT-Pro-B Natriuret Pep Total Protein Albumin LDL Cholesterol Direct Urine WBC (Auto) 09/07/18 09/08/18 09/08/18 21:50 05:23 05:23 WBC RBC 2.72 L Hgb 8.5 L Hct 26.9 L MCV 99 H RDW 18.0 H Plt Count 136 L Lymph % (Auto) 13.1 L [place] % (Auto) 15.7 H Eos % (Auto) Baso % (Auto) 1.9 H Lymph # 0.7 L Seg Neuts % (Manual) Lymphocytes % (Manual) Monocytes % (Manual) Basophils % (Manual) Nucleated RBC % Seg Neutrophils # Man Lymphocytes # (Manual) Monocytes # (Manual) PT INR D-Dimer POC ABG pH POC ABG pCO2 POC ABG pO2 Sodium 134 L Potassium 5.2 H Chloride Carbon Dioxide BUN 36 H Creatinine Glucose POC Glucose 160 H Lactic Acid Uric Acid Calcium Total Bilirubin AST ALT Total Creatine Kinase CK-MB (CK-2) CK-MB (CK-2) Rel Index Troponin T C-Reactive Protein NT-Pro-B Natriuret Pep Total Protein Albumin LDL Cholesterol Direct Urine WBC (Auto) 09/08/18 09/08/18 09/09/18 12:33 16:57 05:52 WBC RBC 2.64 L Hgb 8.1 L Hct 25.2 L MCV 95 H RDW 17.8 H Plt Count Lymph % (Auto) [place] % (Auto) 14.3 H Eos % (Auto) Baso % (Auto) 1.9 H Lymph # 0.6 L Seg Neuts % (Manual) Lymphocytes % (Manual) Monocytes % (Manual) Basophils % (Manual) Nucleated RBC % Seg Neutrophils # Man Lymphocytes # (Manual) Monocytes # (Manual) PT INR D-Dimer POC ABG pH POC ABG pCO2 POC ABG pO2 Sodium Potassium Chloride Carbon Dioxide BUN Creatinine Glucose POC Glucose 198 H 195 H Lactic Acid Uric Acid Calcium Total Bilirubin AST ALT Total Creatine Kinase CK-MB (CK-2) CK-MB (CK-2) Rel Index Troponin T C-Reactive Protein NT-Pro-B Natriuret Pep Total Protein Albumin LDL Cholesterol Direct Urine WBC (Auto) 07/09/09/18 09/09/18 05:52 11:50 16:28 WBC RBC Hgb Hct MCV RDW Plt Count Lymph % (Auto) [place] % (Auto) Eos % (Auto) Baso % (Auto) Lymph # Seg Neuts % (Manual) Lymphocytes % (Manual) Monocytes % (Manual) Basophils % (Manual) Nucleated RBC % Seg Neutrophils # Man Lymphocytes # (Manual) Monocytes # (Manual) PT INR D-Dimer POC ABG pH POC ABG pCO2 POC ABG pO2 Sodium 136 L Potassium Chloride Carbon Dioxide BUN 34 H Creatinine Glucose POC Glucose 122 H 170 H Lactic Acid Uric Acid Calcium 8.1 L Total Bilirubin AST ALT Total Creatine Kinase CK-MB (CK-2) CK-MB (CK-2) Rel Index Troponin T C-Reactive Protein NT-Pro-B Natriuret Pep Total Protein Albumin LDL Cholesterol Direct Urine WBC (Auto) 09/09/18 09/10/18 09/10/18 22:02 05:09 05:09 WBC 3.9 L RBC 2.63 L Hgb 8.2 L Hct 25.0 L MCV 95 H RDW 17.4 H Plt Count Lymph % (Auto) [place] % (Auto) 15.9 H Eos % (Auto) Baso % (Auto) 2.0 H Lymph # 0.6 L Seg Neuts % (Manual) Lymphocytes % (Manual) Monocytes % (Manual) Basophils % (Manual) Nucleated RBC % Seg Neutrophils # Man Lymphocytes # (Manual) Monocytes # (Manual) PT INR D-Dimer POC ABG pH POC ABG pCO2 POC ABG pO2 Sodium Potassium 5.1 H Chloride Carbon Dioxide BUN 31 H Creatinine Glucose 106 H POC Glucose 144 H Lactic Acid Uric Acid Calcium 8.3 L Total Bilirubin AST ALT Total Creatine Kinase CK-MB (CK-2) CK-MB (CK-2) Rel Index Troponin T C-Reactive Protein NT-Pro-B Natriuret Pep Total Protein Albumin LDL Cholesterol Direct Urine WBC (Auto) 09/10/18 09/10/18 09/10/18 13:09 17:07 21:13 WBC RBC Hgb Hct MCV RDW Plt Count Lymph % (Auto) [place] % (Auto) Eos % (Auto) Baso % (Auto) Lymph # Seg Neuts % (Manual) Lymphocytes % (Manual) Monocytes % (Manual) Basophils % (Manual) Nucleated RBC % Seg Neutrophils # Man Lymphocytes # (Manual) Monocytes # (Manual) PT INR D-Dimer POC ABG pH POC ABG pCO2 POC ABG pO2 Sodium Potassium Chloride Carbon Dioxide BUN Creatinine Glucose POC Glucose 134 H 117 H 154 H Lactic Acid Uric Acid Calcium Total Bilirubin AST ALT Total Creatine Kinase CK-MB (CK-2) CK-MB (CK-2) Rel Index Troponin T C-Reactive Protein NT-Pro-B Natriuret Pep Total Protein Albumin LDL Cholesterol Direct Urine WBC (Auto) 09/11/18 09/11/18 09/11/18 06:00 06:00 09:11 WBC 3.5 L RBC 2.41 L Hgb 7.4 L Hct 23.0 L MCV 96 H RDW 18.1 H Plt Count Lymph % (Auto) [place] % (Auto) 15.3 H Eos % (Auto) 5.2 H Baso % (Auto) 2.6 H Lymph # 0.6 L Seg Neuts % (Manual) Lymphocytes % (Manual) Monocytes % (Manual) Basophils % (Manual) Nucleated RBC % Seg Neutrophils # Man Lymphocytes # (Manual) Monocytes # (Manual) PT INR D-Dimer POC ABG pH POC ABG pCO2 POC ABG pO2 Sodium Potassium 5.4 H Chloride Carbon Dioxide BUN 30 H Creatinine Glucose 108 H POC Glucose 124 H Lactic Acid Uric Acid Calcium Total Bilirubin AST ALT Total Creatine Kinase CK-MB (CK-2) CK-MB (CK-2) Rel Index Troponin T C-Reactive Protein NT-Pro-B Natriuret Pep Total Protein Albumin LDL Cholesterol Direct Urine WBC (Auto) 09/11/18 09/11/18 09/11/18 12:06 16:18 21:26 WBC RBC Hgb Hct MCV RDW Plt Count Lymph % (Auto) [place] % (Auto) Eos % (Auto) Baso % (Auto) Lymph # Seg Neuts % (Manual) Lymphocytes % (Manual) Monocytes % (Manual) Basophils % (Manual) Nucleated RBC % Seg Neutrophils # Man Lymphocytes # (Manual) Monocytes # (Manual) PT INR D-Dimer POC ABG pH POC ABG pCO2 POC ABG pO2 Sodium Potassium Chloride Carbon Dioxide BUN Creatinine Glucose POC Glucose 144 H 138 H 163 H Lactic Acid Uric Acid Calcium Total Bilirubin AST ALT Total Creatine Kinase CK-MB (CK-2) CK-MB (CK-2) Rel Index Troponin T C-Reactive Protein NT-Pro-B Natriuret Pep Total Protein Albumin LDL Cholesterol Direct Urine WBC (Auto) 09/12/18 09/12/18 09/12/18 09:17 09:17 11:16 WBC 4.0 L RBC 2.62 L Hgb 8.1 L Hct 25.0 L MCV 96 H RDW 17.8 H Plt Count Lymph % (Auto) [place] % (Auto) Eos % (Auto) Baso % (Auto) Lymph # Seg Neuts % (Manual) Lymphocytes % (Manual) Monocytes % (Manual) Basophils % (Manual) Nucleated RBC % Seg Neutrophils # Man Lymphocytes # (Manual) Monocytes # (Manual) PT INR D-Dimer POC ABG pH POC ABG pCO2 POC ABG pO2 Sodium Potassium 5.3 H Chloride Carbon Dioxide BUN 27 H Creatinine Glucose 113 H POC Glucose 147 H Lactic Acid Uric Acid Calcium Total Bilirubin AST ALT Total Creatine Kinase CK-MB (CK-2) CK-MB (CK-2) Rel Index Troponin T C-Reactive Protein NT-Pro-B Natriuret Pep Total Protein Albumin LDL Cholesterol Direct Urine WBC (Auto) 09/12/18 09/12/18 09/13/18 15:31 21:23 06:48 WBC 3.7 L RBC 2.49 L Hgb 7.7 L Hct 23.7 L MCV 95 H RDW 17.4 H Plt Count Lymph % (Auto) [place] % (Auto) Eos % (Auto) Baso % (Auto) Lymph # Seg Neuts % (Manual) Lymphocytes % (Manual) Monocytes % (Manual) Basophils % (Manual) Nucleated RBC % Seg Neutrophils # Man Lymphocytes # (Manual) Monocytes # (Manual) PT INR D-Dimer POC ABG pH POC ABG pCO2 POC ABG pO2 Sodium Potassium Chloride Carbon Dioxide BUN Creatinine Glucose POC Glucose 126 H 116 H Lactic Acid Uric Acid Calcium Total Bilirubin AST ALT Total Creatine Kinase CK-MB (CK-2) CK-MB (CK-2) Rel Index Troponin T C-Reactive Protein NT-Pro-B Natriuret Pep Total Protein Albumin LDL Cholesterol Direct Urine WBC (Auto) 09/13/18 09/13/18 09/13/18 06:48 16:49 21:44 WBC RBC Hgb Hct MCV RDW Plt Count Lymph % (Auto) [place] % (Auto) Eos % (Auto) Baso % (Auto) Lymph # Seg Neuts % (Manual) Lymphocytes % (Manual) Monocytes % (Manual) Basophils % (Manual) Nucleated RBC % Seg Neutrophils # Man Lymphocytes # (Manual) Monocytes # (Manual) PT INR D-Dimer POC ABG pH POC ABG pCO2 POC ABG pO2 Sodium Potassium 5.5 H Chloride Carbon Dioxide BUN 25 H Creatinine Glucose 106 H POC Glucose 112 H 117 H Lactic Acid Uric Acid Calcium Total Bilirubin AST ALT Total Creatine Kinase CK-MB (CK-2) CK-MB (CK-2) Rel Index Troponin T C-Reactive Protein NT-Pro-B Natriuret Pep Total Protein Albumin LDL Cholesterol Direct Urine WBC (Auto) 09/14/18 04:44 WBC RBC Hgb Hct MCV RDW Plt Count Lymph % (Auto) [place] % (Auto) Eos % (Auto) Baso % (Auto) Lymph # Seg Neuts % (Manual) Lymphocytes % (Manual) Monocytes % (Manual) Basophils % (Manual) Nucleated RBC % Seg Neutrophils # Man Lymphocytes # (Manual) Monocytes # (Manual) PT INR D-Dimer POC ABG pH POC ABG pCO2 POC ABG pO2 Sodium Potassium 5.1 H Chloride Carbon Dioxide BUN 23 H Creatinine Glucose 112 H POC Glucose Lactic Acid Uric Acid Calcium 8.2 L Total Bilirubin AST ALT Total Creatine Kinase CK-MB (CK-2) CK-MB (CK-2) Rel Index Troponin T C-Reactive Protein NT-Pro-B Natriuret Pep Total Protein Albumin LDL Cholesterol Direct Urine WBC (Auto) Allied health notes reviewed: RT
[2018-09-14] MEDS: APRESOLINE PO SCH ×2 (09:59→22:19)
[2018-09-14] MEDS: KEPPRA PO SCH ×2 (10:00→22:20)
[2018-09-14] MEDS: HEPARIN SUB-Q SCH ×2 (10:04→22:19)
[2018-09-14] MEDS: SODIUM CHLORIDE FLUSH SYRINGE 10 ML IV SCH ×2 (10:04→22:20)
[2018-09-14] MEDS: BROVANA NEBU IH SCH ×2 (10:08→20:10)
[2018-09-14] MEDS: PULMICORT IH SCH ×2 (10:08→20:10)
[2018-09-14] MEDS: DUONEB *Not for PRN Use IH SCH ×2 (10:09→20:10)
--- NOTE | 2018-09-14 11:26 | Progress Note ---
Assessment and Plan Assessment and plan: Acute on chronic respiratory failure. Etiology secondary to COPD exacerbation. Continue O2 and nebulizers. Improving. Acute kidney injury on CKD stage III. Off hemodialysis now. Creatinine remained stable despite off hemodialysis. Acute COPD exacerbation. We'll continue nebulizers, antibiotics and O2 continuously. Patient doing well. Awaiting fdc placement Hyperkalemia. Give kayexalate and recheck in am Pneumonia may be gram-negative nini continue current antibiotics per ID. Sepsis. Improved. Leukocytosis resolved. Pulseless electrical activity status post cardiorespiratory arrest. Cont. beta renetta and aspirin. Supportive care. Seizure disorder. EEG Normal Morbid obesity. supportive care Disposition. Awaiting usp placement. History Interval history: Feels better No shortness of breath currently Hospitalist Physical - Physical exam Narrative exam: Gen: Not in acute distress, lying in bed, morbidly obese HEENT: Normocephalic, atraumatic Neck: supple, no JVD Heart: S1 and S2 reg, no murmurs, rubs or gallop Lungs: Decreased breath sounds, no crackles or wheeze Abd: soft, non tender, non distended, normal BS Ext: No edema, no clubbing, no cyanosis Neuro:awake,alert, Oriented X 3. No focal signs - Constitutional Vitals: Temp Pulse Resp BP Pulse Ox 98.5 F 88 18 141/62 99 09/14/18 07:07 09/14/18 10:19 09/14/18 10:19 09/14/18 07:07 09/14/18 10:00 General appearance: Present: no acute distress, other (intubated, chronically ill appearing) Results - Labs CBC & Chem 7: 09/13/18 06:48 09/14/18 04:44 Labs: Laboratory Last Values WBC 3.7 K/mm3 (4.5-11.0) L 09/13/18 06:48 RBC 2.49 M/mm3 (3.65-5.03) L 09/13/18 06:48 Hgb 7.7 gm/dl (11.8-15.2) L 09/13/18 06:48 Hct 23.7 % (35.5-45.6) L 09/13/18 06:48 MCV 95 fl (84-94) H 09/13/18 06:48 MCH 31 pg (28-32) 09/13/18 06:48 MCHC 33 % (32-34) 09/13/18 06:48 RDW 17.4 % (13.2-15.2) H 09/13/18 06:48 Plt Count 178 K/mm3 (140-440) 09/13/18 06:48 Lymph % (Auto) 16.1 % (13.4-35.0) 09/11/18 06:00 [place] % (Auto) 15.3 % (0.0-7.3) H 09/11/18 06:00 Eos % (Auto) 5.2 % (0.0-4.3) H 09/11/18 06:00 Baso % (Auto) 2.6 % (0.0-1.8) H 09/11/18 06:00 Lymph # 0.6 K/mm3 (1.2-5.4) L 09/11/18 06:00 [place] # 0.5 K/mm3 (0.0-0.8) 09/11/18 06:00 Eos # 0.2 K/mm3 (0.0-0.4) 09/11/18 06:00 Baso # 0.1 K/mm3 (0.0-0.1) 09/11/18 06:00 Add Manual Diff Complete 09/06/18 06:42 Total Counted 100 09/06/18 06:42 Seg Neutrophils % 60.8 % (40.0-70.0) 09/11/18 06:00 Seg Neuts % (Manual) 79.0 % (40.0-70.0) H 09/06/18 06:42 0 % 09/06/18 06:42 6.0 % (13.4-35.0) L 09/06/18 06:42 Reactive Lymphs % (Man) 0 % 09/06/18 06:42 12.0 % (0.0-7.3) H 09/06/18 06:42 1.0 % (0.0-4.3) 09/06/18 06:42 2.0 % (0.0-1.8) H 09/06/18 06:42 0 % 09/06/18 06:42 0 % 09/06/18 06:42 0 % 09/06/18 06:42 0 % 09/06/18 06:42 Nucleated RBC % Not Reportable 09/06/18 06:42 Seg Neutrophils # 2.1 K/mm3 (1.8-7.7) 09/11/18 06:00 Seg Neutrophils # Man 3.9 K/mm3 (1.8-7.7) 09/06/18 06:42 Band Neutrophils # 0.0 K/mm3 09/06/18 06:42 0.3 K/mm3 (1.2-5.4) L 09/06/18 06:42 Abs React Lymphs (Man) 0.0 K/mm3 09/06/18 06:42 0.6 K/mm3 (0.0-0.8) 09/06/18 06:42 0.0 K/mm3 (0.0-0.4) 09/06/18 06:42 0.1 K/mm3 (0.0-0.1) 09/06/18 06:42 0.0 K/mm3 09/06/18 06:42 0.0 K/mm3 09/06/18 06:42 0.0 K/mm3 09/06/18 06:42 Blast Cells # 0.0 K/mm3 09/06/18 06:42 WBC Morphology Not Reportable 09/06/18 06:42 Hypersegmented Neuts Not Reportable 09/06/18 06:42 Hyposegmented Neuts Not Reportable 09/06/18 06:42 Hypogranular Neuts Not Reportable 09/06/18 06:42 Not Reportable 09/06/18 06:42 Not Reportable 09/06/18 06:42 Not Reportable 09/06/18 06:42 Not Reportable 09/06/18 06:42 Not Reportable 09/06/18 06:42 Not Reportable 09/06/18 06:42 Consistent w auto 09/06/18 06:42 Not Reportable 09/06/18 06:42 Plt Clumps, EDTA Not Reportable 09/06/18 06:42 Not Reportable 09/06/18 06:42 Not Reportable 09/06/18 06:42 Not Reportable 09/06/18 06:42 Plt Morphology Comment Not Reportable 09/06/18 06:42 RBC Morphology Not Reportable 09/06/18 06:42 Dimorphic RBCs Not Reportable 09/06/18 06:42 Not Reportable 09/06/18 06:42 Not Reportable 09/06/18 06:42 Not Reportable 09/06/18 06:42 1+ 09/06/18 06:42 Not Reportable 09/06/18 06:42 1+ 09/06/18 06:42 Not Reportable 09/06/18 06:42 Not Reportable 09/06/18 06:42 Not Reportable 09/06/18 06:42 Not Reportable 09/06/18 06:42 Not Reportable 09/06/18 06:42 Not Reportable 09/06/18 06:42 Not Reportable 09/06/18 06:42 Not Reportable 09/06/18 06:42 Not Reportable 09/06/18 06:42 Not Reportable 09/06/18 06:42 Not Reportable 09/06/18 06:42 Not Reportable 09/06/18 06:42 Not Reportable 09/06/18 06:42 Acanthocytes (Spur) Not Reportable 09/06/18 06:42 Rouleaux Not Reportable 09/06/18 06:42 Not Reportable 09/06/18 06:42 Not Reportable 09/06/18 06:42 Not Reportable 09/06/18 06:42 Not Reportable 09/06/18 06:42 Hem Pathologist Commnt No 09/06/18 06:42 PT 15.6 Sec. (12.2-14.9) H 08/25/18 16:43 INR 1.27 (0.87-1.13) H 08/25/18 16:43 APTT 30.8 Sec. (24.2-36.6) 08/21/18 04:42 1978.25 ng/mlDDU (0-234) H 08/24/18 13:41 POC ABG pH 7.410 (7.35-7.45) 08/30/18 13:35 POC ABG pCO2 41.4 (35-45) 08/30/18 13:35 POC ABG pO2 99 (80-105) 08/30/18 13:35 POC ABG HCO3 26.2 (22-26 mml/L) 08/30/18 13:35 POC ABG Total CO2 27 (23-27mmol/L) 08/30/18 13:35 POC ABG O2 Sat 98 08/30/18 13:35 POC ABG Base Excess 2 ((-2) - (+3)mmol/L) 08/30/18 13:35 30 % 08/30/18 13:35 Sodium 141 mmol/L (137-145) 09/14/18 04:44 Potassium 5.1 mmol/L (3.6-5.0) H 09/14/18 04:44 Chloride 104.4 mmol/L (98-107) 09/14/18 04:44 Carbon Dioxide 28 mmol/L (22-30) 09/14/18 04:44 14 mmol/L 09/14/18 04:44 BUN 23 mg/dL (9-20) H 09/14/18 04:44 1.4 mg/dL (0.8-1.5) 09/14/18 04:44 Estimated GFR 50 ml/min 09/14/18 04:44 16 % 09/14/18 04:44 Glucose 112 mg/dL (75-100) H 09/14/18 04:44 POC Glucose 99 (70-105) 09/14/18 07:16 317 Mosm/kg 08/31/18 13:54 Lactic Acid 1.30 mmol/L (0.7-2.0) 08/21/18 20:50 9.6 mg/dL (3.5-7.6) H 08/31/18 13:54 Calcium 8.2 mg/dL (8.4-10.2) L 09/14/18 04:44 Magnesium 2.00 mg/dL (1.7-2.3) 09/02/18 05:16 0.60 mg/dL (0.1-1.2) 08/28/18 04:49 AST 27 units/L (5-40) 08/28/18 04:49 ALT 12 units/L (7-56) 08/28/18 04:49 87 units/L (35-129) 08/28/18 04:49 222 units/L (55-170) H 08/21/18 10:45 CK-MB (CK-2) 9.2 ng/mL (0.0-4.0) H 08/21/18 10:45 CK-MB (CK-2) Rel Index 4.1 (0-4) H 08/21/18 10:45 0.020 ng/mL (0.00-0.029) 09/08/18 09:06 9.00 mg/dL (0.00-1.30) H 08/24/18 13:41 NT-Pro-B Natriuret Pep > 99583 pg/mL (0-900) H 08/28/18 04:49 5.4 g/dL (6.3-8.2) L 08/28/18 04:49 2.2 g/dL (3.9-5) L 08/28/18 04:49 0.7 % 08/28/18 04:49 Triglycerides 87 mg/dL (2-149) 08/21/18 04:42 Cholesterol 93 mg/dL (50-199) 08/21/18 04:42 44 mg/dL (50-130) L 08/21/18 04:42 41 mg/dL (40-59) 08/21/18 04:42 2.26 % 08/21/18 04:42 Yellow (Yellow) 08/21/18 15:03 Slightly-cloudy (Clear) 08/21/18 15:03 5.0 (5.0-7.0) 08/21/18 15:03 Ur Specific [place] 1.015 (1.003-1.030) 08/21/18 15:03 30 mg/dl mg/dL (Negative) 08/21/18 15:03 Neg mg/dL (Negative) 08/21/18 15:03 Neg mg/dL (Negative) 08/21/18 15:03 Mod (Negative) 08/21/18 15:03 Neg (Negative) 08/21/18 15:03 Neg (Negative) 08/21/18 15:03 < 2.0 mg/dL (<2.0) 08/21/18 15:03 Ur Leukocyte Esterase Tr (Negative) 08/21/18 15:03 13.0 /HPF (0.0-6.0) H 08/21/18 15:03 15.0 /HPF (0.0-6.0) 08/21/18 15:03 U Epithel Cells (Auto) 1.0 /HPF (0-13.0) 08/21/18 15:03 1+ /HPF (Negative) 08/21/18 15:03 Few /HPF 08/21/18 15:03 Random Vancomycin 10.5 ug/mL (0-40.0) 08/26/18 05:53 Levetiracetam 25.7 mcg/mL (12.0-46.0) 08/26/18 13:42 Hepatitis A IgM Ab Non-reactive (NonReactive) 08/27/18 23:25 Hep Bs Antigen Non-reactive (Negative) 08/27/18 23:25 Hep B Core IgM Ab Non-reactive (NonReactive) 08/27/18 23:25 Non-reactive (NonReactive) 08/27/18 23:25 Active Medications - Current Medications Current Medications: Generic Name Dose Route Start Last Admin Trade Name Freq PRN Reason Stop Dose Admin Acetaminophen 650 mg 08/21/18 06:31 09/01/18 21:12 Tylenol PO 650 mg Q4H PRN Administration Pain MILD(1-3)/Fever >100.5/COOK Albuterol/Ipratropium 1 ampul 08/24/18 20:00 09/14/18 10:09 Duoneb *Not For Prn Use* IH Not Given BIDRT LUIS Lipase/Protease/Amylase 1 each 08/26/18 12:07 Pancreamaris [place] 10,500 Unit FEEDTUBE PRN PRN For Clogged Feeding Tube Arformoterol Tartrate 15 mcg 08/24/18 20:00 09/14/18 10:08 Brovana Nebu IH 15 mcg Q12HRT LUIS Administration Bisacodyl 10 mg 09/02/18 12:42 Dulcolax [place] QDAY PRN Constipation Budesonide 0.5 mg 08/24/18 20:00 09/14/18 10:08 Pulmicort IH 0.5 mg Q12HRT LUIS Administration Dextrose 50 ml 08/21/18 06:48 D50w (25gm) Syringe IV PRN PRN Hypoglycemia Diphenhydramine HCl 25 mg 09/11/18 06:07 09/13/18 01:50 Benadryl PO 25 mg Q6H PRN Administration Itching Heparin Sodium (Porcine) 5,000 unit 08/22/18 10:00 09/14/18 10:04 Heparin SUB-Q 5,000 unit Q12HR LUIS Administration Hydralazine HCl 50 mg 09/08/18 10:00 09/14/18 09:59 Apresoline PO 50 mg BID LUIS Administration Insulin Human Lispro 0 unit 08/31/18 22:00 09/14/18 08:24 Humalog SUB-Q Not Given ACHS [facility] Protocol Levetiracetam 750 mg 09/04/18 22:00 09/14/18 10:00 Keppra PO 750 mg BID LUIS Administration Metoclopramide HCl 10 mg 09/05/18 18:35 09/10/18 03:02 Reglan IV 10 mg Q6H PRN Administration Nausea And Vomiting Morphine Sulfate 2 mg 08/26/18 14:24 08/30/18 01:40 Morphine IV 2 mg Q6H PRN Administration Pain, Moderate (4-6) Ondansetron HCl 4 mg 08/21/18 06:31 Zofran IV Q8H PRN Nausea And Vomiting Sodium Chloride 10 ml 08/21/18 10:00 09/14/18 10:04 Sodium Chloride Flush Syringe 10 Ml IV 10 ml BID LUIS Administration Zolpidem Tartrate 5 mg 09/09/18 00:19 09/12/18 23:02 Ambien PO 5 mg QHS PRN Administration Sleep Nutrition/Malnutrition Assess - Dietary Evaluation Nutrition/Malnutrition Findings: Nutrition Notes Start: 08/21/18 16:58 Freq: Status: Active Protocol: Document 09/12/18 14:04 RM (Rec: 09/12/18 14:12 [email or web address]) Nutrition Notes Initial or Follow up Reassessment Current Diagnosis CKD(stage I-IV),Diabetes, Sepsis,Heart Failure Other Pertinent Diagnosis COPD exacerbation, pneu, s/p cardiac arrest Current Diet Cardiac/Consistent CHO Labs/Tests Reviewed Pertinent Medications Reviewed Height 5 ft 6 in Weight 138.1 kg [place] Body Weight (kg) 64.54 BMI 49.1 Weight change and time frame Current wt obtained from [facility]. Wt loss possibly d/t fluid change Subjective/Other Information Glucerna no longer in diet order. Pt stated that he eats 1/3 to 50% of his meals. Stated that he was drinking the Glucerna previously but has not received any the past few days. Manager [employer] brought pt 2 Glucerna. Burn Absent Trauma Absent #1 Nutrition Diagnosis Inadequate oral intake Diagnosis Progress(for reassessment Continues documentation) Is patient on ventilator? No Is Patient Ambulatory and/or Out of Bed No REE-([place] Jeor-confined to bed) 2493.756 Kcal/Kg value to use for calculation 12 Approximate Energy Requirements Using 1657 kcal/Kg Calculation Used for Recommendations Kcal/kg Additional Notes Pro needs 1-1.2g/kg adjBW: 105-127g/day Fluid needs 1ml/kcal Nutrition Intervention Change Diet Order: Continue current Add Supplement/Snack (indicate name/kcal Glucerna Chocolate, [place] /protein ) BID Provides kCal: 440 Provides Protein (gm) 20 Goal #1 Meet at least 75% of kcal and protein needs via PO intakes Anticipated Discharge Needs: Cardiac/Consistent CHO Follow-Up By: 09/18/18 Additional Comments Follow for PO and ONS intakes
[2018-09-14] MEDS: BENADRYL PO PRN (12:28)
[2018-09-14] MEDS ORDERED: KIONEX PO ONE (16:45)
[2018-09-15] MEDS: AMBIEN PO PRN (00:31)
[2018-09-15] MEDS: HumaLOG SUB-Q SCH ×4 (08:30→22:42)
[2018-09-15] MEDS: KEPPRA PO SCH ×2 (11:00→22:35)
[2018-09-15] MEDS: SODIUM CHLORIDE FLUSH SYRINGE 10 ML IV SCH ×2 (11:00→22:36)
[2018-09-15] MEDS: HEPARIN SUB-Q SCH ×2 (11:00→22:39)
[2018-09-15] MEDS: APRESOLINE PO SCH ×2 (11:23→22:34)
--- NOTE | 2018-09-15 13:07 | Progress Note ---
Assessment and Plan -s/p Cardiopulmonary arrest with ROSC -Acute on chronic hypoxemic respiratory failure s/p MVS -Lactic acidosis, resolved -Acute metabolic/respiratory acidosis -Acute on chronic renal failure (multifactorial) -Sepsis probably secondary to aspiration PNA, resolving -AE-COPD -Acute metabolic-toxic encephalopathy -Morbid obesity -NSTEMI- probably type 2 ischemia -Type 2 DM -h/o Liver disease -h/o Colon CA -Hyperkalemia -LEFT TMJ JOINT DISLOCATION-POA -Supplemental oxygen to keep O2 sats 88-90% -Restrictive oxygen therapy -Bronchodilators -Modified diet with aspiration precautions -Accuchecks with glycemic control. Target blood glucose <180mg/dL -Prevention of delirium, maintenance of sleep-wake cycle -Antibiotics per ID -Avoid nephrotoxic agents, adjust all antibiotics and medications for CrCL and GFR -VTE and Stress ulcer prophylaxis( Heparin/Famotidine) --PT/OT to treat -increase activity -Will need maxillo facial evaluation -Nocturnal BIPAP and prn during the day Discussed with RT/RN Updated the patient and his at the bedside. CONDITION: IMPROVING PROGNOSIS:FAIR CODE STATUS: FULL CODE Subjective Date of service: 09/15/18 Principal diagnosis: s/p cardiac arrest; severe sepsis; acute hypoxemic-hyp ercapnic resp failure Interval history: Patient is seen today for: cardiopulmonary arrest, severe sepsis, acute hypoxemic-hypercapnic respiratory failure s/p MVS, KHRIS on CKD on HD Seen and examined at bedside; 24hour events reviewed; nursing and respiratory care staff consulted; no adverse overnight events reported to me; Awake and alert, obeying simple commands, being fed by his . Making good amounts of urine, HD on hold for now. He denies any chest pain, no shortness of breath, no nausea or vomiting, no fevers Objective Vital Signs - 12hr 09/15/18 09/15/18 09/15/18 02:59 07:44 09:29 Temperature 98.6 F 98.0 F Pulse Rate 97 H 103 H Respiratory 22 22 Rate Blood Pressure 125/70 103/67 O2 Sat by Pulse 96 96 94 Oximetry 09/15/18 09/15/18 11:21 11:23 Temperature Pulse Rate 101 H 101 H Respiratory Rate Blood Pressure 122/71 122/71 O2 Sat by Pulse 99 Oximetry Constitutional: no acute distress, alert Eyes: non-icteric ENT: oropharynx moist, other Neck: supple, no JVD, other (short neck) Effort: mildly labored Ascultation: Bilateral: diminished breath sounds, rhonchi (coarse BS bilaterally) Percussion: Bilateral: not dull Cardiovascular: regular rate and rhythm, other (S1,S2, no murmurs, no gallops or rubs) Gastrointestinal: normoactive bowel sounds, soft, non-tender, non-distended, other (Madison catheter in place, clear urine) Integumentary: normal, other (right femoral HD catheter) Extremities: no cyanosis, no edema, pink and warm, pulses normal, no ischemia or petechiae Neurologic: non-focal exam (grossly), pupils equal and round, motor strength normal and, other (awake and alert, obeying one step commands) Psychiatric: mood appropriate, affect normal CBC and BMP: 09/13/18 06:48 09/15/18 07:49 ABG, PT/INR, D-dimer: ABG POC ABG pH 7.410 (7.35-7.45) 08/30/18 13:35 POC ABG pCO2 41.4 (35-45) 08/30/18 13:35 POC ABG pO2 99 (80-105) 08/30/18 13:35 POC ABG HCO3 26.2 (22-26 mml/L) 08/30/18 13:35 POC ABG Total CO2 27 (23-27mmol/L) 08/30/18 13:35 POC ABG O2 Sat 98 08/30/18 13:35 PT/INR, D-dimer PT 15.6 Sec. (12.2-14.9) H 08/25/18 16:43 INR 1.27 (0.87-1.13) H 08/25/18 16:43 1978.25 ng/mlDDU (0-234) H 08/24/18 13:41 Abnormal lab findings: Abnormal Labs 08/21/18 08/21/18 08/21/18 04:42 04:42 04:42 WBC 19.1 H RBC 2.49 L Hgb 7.7 L Hct 24.5 L MCV 98 H RDW 17.7 H Plt Count Lymph % (Auto) [place] % (Auto) Eos % (Auto) Baso % (Auto) Lymph # Seg Neuts % (Manual) 84.0 H Lymphocytes % (Manual) 7.0 L Monocytes % (Manual) 9.0 H Basophils % (Manual) Nucleated RBC % Seg Neutrophils # Man 16.0 H Lymphocytes # (Manual) Monocytes # (Manual) 1.7 H PT 20.1 H INR 1.76 H D-Dimer POC ABG pH POC ABG pCO2 POC ABG pO2 Sodium Potassium Chloride Carbon Dioxide BUN Creatinine Glucose POC Glucose Lactic Acid Uric Acid Calcium Total Bilirubin AST ALT Total Creatine Kinase CK-MB (CK-2) CK-MB (CK-2) Rel Index Troponin T 0.032 H C-Reactive Protein NT-Pro-B Natriuret Pep Total Protein Albumin LDL Cholesterol Direct 44 L Urine WBC (Auto) 08/21/18 08/21/18 08/21/18 04:42 04:42 04:42 WBC RBC Hgb Hct MCV RDW Plt Count Lymph % (Auto) [place] % (Auto) Eos % (Auto) Baso % (Auto) Lymph # Seg Neuts % (Manual) Lymphocytes % (Manual) Monocytes % (Manual) Basophils % (Manual) Nucleated RBC % Seg Neutrophils # Man Lymphocytes # (Manual) Monocytes # (Manual) PT INR D-Dimer POC ABG pH POC ABG pCO2 POC ABG pO2 Sodium Potassium 6.0 H Chloride Carbon Dioxide 15 L BUN 57 H Creatinine 4.3 H Glucose 111 H POC Glucose Lactic Acid 5.80 H* Uric Acid Calcium Total Bilirubin 1.80 H AST 212 H ALT 94 H Total Creatine Kinase CK-MB (CK-2) CK-MB (CK-2) Rel Index Troponin T C-Reactive Protein NT-Pro-B Natriuret Pep 81670 H Total Protein Albumin 3.2 L LDL Cholesterol Direct Urine WBC (Auto) 08/21/18 08/21/18 08/21/18 05:08 05:58 05:58 WBC RBC Hgb Hct MCV RDW Plt Count Lymph % (Auto) [place] % (Auto) Eos % (Auto) Baso % (Auto) Lymph # Seg Neuts % (Manual) Lymphocytes % (Manual) Monocytes % (Manual) Basophils % (Manual) Nucleated RBC % Seg Neutrophils # Man Lymphocytes # (Manual) Monocytes # (Manual) PT INR D-Dimer POC ABG pH 7.164 L POC ABG pCO2 46.3 H POC ABG pO2 229 H Sodium Potassium Chloride Carbon Dioxide BUN Creatinine Glucose POC Glucose Lactic Acid 5.10 H* Uric Acid Calcium Total Bilirubin AST ALT Total Creatine Kinase CK-MB (CK-2) CK-MB (CK-2) Rel Index Troponin T 0.035 H C-Reactive Protein NT-Pro-B Natriuret Pep Total Protein Albumin LDL Cholesterol Direct Urine WBC (Auto) 08/21/18 08/21/18 08/21/18 06:45 06:45 06:53 WBC RBC Hgb Hct MCV RDW Plt Count Lymph % (Auto) [place] % (Auto) Eos % (Auto) Baso % (Auto) Lymph # Seg Neuts % (Manual) Lymphocytes % (Manual) Monocytes % (Manual) Basophils % (Manual) Nucleated RBC % Seg Neutrophils # Man Lymphocytes # (Manual) Monocytes # (Manual) PT INR D-Dimer POC ABG pH 7.160 L POC ABG pCO2 46.8 H POC ABG pO2 Sodium Potassium Chloride Carbon Dioxide BUN Creatinine Glucose POC Glucose Lactic Acid 4.70 H* Uric Acid Calcium Total Bilirubin AST ALT Total Creatine Kinase 234 H CK-MB (CK-2) 9.1 H CK-MB (CK-2) Rel Index Troponin T 0.032 H C-Reactive Protein NT-Pro-B Natriuret Pep Total Protein Albumin LDL Cholesterol Direct Urine WBC (Auto) 08/21/18 08/21/18 08/21/18 10:43 10:43 10:45 WBC RBC Hgb Hct MCV RDW Plt Count Lymph % (Auto) [place] % (Auto) Eos % (Auto) Baso % (Auto) Lymph # Seg Neuts % (Manual) Lymphocytes % (Manual) Monocytes % (Manual) Basophils % (Manual) Nucleated RBC % Seg Neutrophils # Man Lymphocytes # (Manual) Monocytes # (Manual) PT INR D-Dimer POC ABG pH POC ABG pCO2 POC ABG pO2 Sodium Potassium Chloride Carbon Dioxide 17 L BUN 59 H Creatinine 4.2 H Glucose POC Glucose Lactic Acid 3.70 H* Uric Acid Calcium Total Bilirubin AST ALT Total Creatine Kinase 222 H CK-MB (CK-2) 9.2 H CK-MB (CK-2) Rel Index 4.1 H Troponin T 0.044 H D C-Reactive Protein NT-Pro-B Natriuret Pep Total Protein Albumin LDL Cholesterol Direct Urine WBC (Auto) 08/21/18 08/21/18 08/21/18 11:38 12:33 15:03 WBC RBC Hgb Hct MCV RDW Plt Count Lymph % (Auto) [place] % (Auto) Eos % (Auto) Baso % (Auto) Lymph # Seg Neuts % (Manual) Lymphocytes % (Manual) Monocytes % (Manual) Basophils % (Manual) Nucleated RBC % Seg Neutrophils # Man Lymphocytes # (Manual) Monocytes # (Manual) PT INR D-Dimer POC ABG pH 7.250 L POC ABG pCO2 POC ABG pO2 121 H Sodium Potassium Chloride Carbon Dioxide BUN Creatinine Glucose POC Glucose 129 H Lactic Acid Uric Acid Calcium Total Bilirubin AST ALT Total Creatine Kinase CK-MB (CK-2) CK-MB (CK-2) Rel Index Troponin T C-Reactive Protein NT-Pro-B Natriuret Pep Total Protein Albumin LDL Cholesterol Direct Urine WBC (Auto) 13.0 H 08/21/18 08/22/18 08/22/18 15:47 00:01 04:27 WBC RBC Hgb Hct MCV RDW Plt Count Lymph % (Auto) [place] % (Auto) Eos % (Auto) Baso % (Auto) Lymph # Seg Neuts % (Manual) Lymphocytes % (Manual) Monocytes % (Manual) Basophils % (Manual) Nucleated RBC % Seg Neutrophils # Man Lymphocytes # (Manual) Monocytes # (Manual) PT INR D-Dimer POC ABG pH 7.457 H POC ABG pCO2 POC ABG pO2 117 H Sodium Potassium Chloride Carbon Dioxide BUN Creatinine Glucose POC Glucose 211 H Lactic Acid 2.70 H* Uric Acid Calcium Total Bilirubin AST ALT Total Creatine Kinase CK-MB (CK-2) CK-MB (CK-2) Rel Index Troponin T C-Reactive Protein NT-Pro-B Natriuret Pep Total Protein Albumin LDL Cholesterol Direct Urine WBC (Auto) 08/22/18 08/22/18 08/22/18 05:46 06:10 06:10 WBC RBC 2.27 L Hgb 7.0 L Hct 21.2 L MCV RDW 16.8 H Plt Count 129 L Lymph % (Auto) [place] % (Auto) Eos % (Auto) Baso % (Auto) Lymph # Seg Neuts % (Manual) 95.0 H Lymphocytes % (Manual) 1.0 L Monocytes % (Manual) Basophils % (Manual) Nucleated RBC % 1.0 H Seg Neutrophils # Man 7.8 H Lymphocytes # (Manual) 0.1 L Monocytes # (Manual) PT INR D-Dimer POC ABG pH POC ABG pCO2 POC ABG pO2 Sodium Potassium Chloride Carbon Dioxide 20 L BUN 63 H Creatinine 3.9 H Glucose 205 H POC Glucose 223 H Lactic Acid Uric Acid Calcium Total Bilirubin AST ALT Total Creatine Kinase CK-MB (CK-2) CK-MB (CK-2) Rel Index Troponin T C-Reactive Protein NT-Pro-B Natriuret Pep Total Protein Albumin LDL Cholesterol Direct Urine WBC (Auto) 08/22/18 08/22/18 08/22/18 06:10 12:57 16:21 WBC RBC Hgb Hct MCV RDW Plt Count Lymph % (Auto) [place] % (Auto) Eos % (Auto) Baso % (Auto) Lymph # Seg Neuts % (Manual) Lymphocytes % (Manual) Monocytes % (Manual) Basophils % (Manual) Nucleated RBC % Seg Neutrophils # Man Lymphocytes # (Manual) Monocytes # (Manual) PT INR D-Dimer POC ABG pH 7.477 H POC ABG pCO2 POC ABG pO2 Sodium Potassium Chloride Carbon Dioxide BUN Creatinine Glucose POC Glucose 166 H Lactic Acid Uric Acid Calcium Total Bilirubin AST ALT Total Creatine Kinase CK-MB (CK-2) CK-MB (CK-2) Rel Index Troponin T C-Reactive Protein 23.60 H NT-Pro-B Natriuret Pep Total Protein Albumin LDL Cholesterol Direct Urine WBC (Auto) 08/22/18 08/22/18 08/23/18 17:41 23:42 04:38 WBC RBC Hgb Hct MCV RDW Plt Count Lymph % (Auto) [place] % (Auto) Eos % (Auto) Baso % (Auto) Lymph # Seg Neuts % (Manual) Lymphocytes % (Manual) Monocytes % (Manual) Basophils % (Manual) Nucleated RBC % Seg Neutrophils # Man Lymphocytes # (Manual) Monocytes # (Manual) PT INR D-Dimer POC ABG pH 7.249 L POC ABG pCO2 53.5 H POC ABG pO2 73 L Sodium Potassium Chloride Carbon Dioxide BUN Creatinine Glucose POC Glucose 131 H 168 H Lactic Acid Uric Acid Calcium Total Bilirubin AST ALT Total Creatine Kinase CK-MB (CK-2) CK-MB (CK-2) Rel Index Troponin T C-Reactive Protein NT-Pro-B Natriuret Pep Total Protein Albumin LDL Cholesterol Direct Urine WBC (Auto) 08/23/18 08/23/18 08/23/18 04:52 04:52 04:52 WBC RBC 2.39 L Hgb 7.5 L Hct 22.8 L MCV 95 H RDW 17.6 H Plt Count Lymph % (Auto) [place] % (Auto) Eos % (Auto) Baso % (Auto) Lymph # Seg Neuts % (Manual) Lymphocytes % (Manual) Monocytes % (Manual) Basophils % (Manual) Nucleated RBC % Seg Neutrophils # Man Lymphocytes # (Manual) Monocytes # (Manual) PT INR D-Dimer POC ABG pH POC ABG pCO2 POC ABG pO2 Sodium Potassium 5.6 H 5.6 H Chloride Carbon Dioxide 21 L BUN 71 H 72 H Creatinine 4.1 H 4.0 H Glucose 141 H 140 H POC Glucose Lactic Acid Uric Acid Calcium 8.3 L 8.2 L Total Bilirubin AST 247 H ALT 220 H Total Creatine Kinase CK-MB (CK-2) CK-MB (CK-2) Rel Index Troponin T C-Reactive Protein NT-Pro-B Natriuret Pep Total Protein Albumin 2.8 L LDL Cholesterol Direct Urine WBC (Auto) 08/23/18 08/23/18 08/23/18 05:50 08:38 12:21 WBC RBC Hgb Hct MCV RDW Plt Count Lymph % (Auto) [place] % (Auto) Eos % (Auto) Baso % (Auto) Lymph # Seg Neuts % (Manual) Lymphocytes % (Manual) Monocytes % (Manual) Basophils % (Manual) Nucleated RBC % Seg Neutrophils # Man Lymphocytes # (Manual) Monocytes # (Manual) PT INR D-Dimer POC ABG pH POC ABG pCO2 POC ABG pO2 Sodium Potassium Chloride Carbon Dioxide BUN Creatinine Glucose POC Glucose 160 H 177 H Lactic Acid Uric Acid Calcium Total Bilirubin AST ALT Total Creatine Kinase CK-MB (CK-2) CK-MB (CK-2) Rel Index Troponin T C-Reactive Protein NT-Pro-B Natriuret Pep 22344 H Total Protein Albumin LDL Cholesterol Direct Urine WBC (Auto) 08/23/18 08/23/18 08/23/18 12:36 14:24 18:05 WBC RBC Hgb Hct MCV RDW Plt Count Lymph % (Auto) [place] % (Auto) Eos % (Auto) Baso % (Auto) Lymph # Seg Neuts % (Manual) Lymphocytes % (Manual) Monocytes % (Manual) Basophils % (Manual) Nucleated RBC % Seg Neutrophils # Man Lymphocytes # (Manual) Monocytes # (Manual) PT INR D-Dimer POC ABG pH 7.337 L POC ABG pCO2 POC ABG pO2 145 H Sodium 136 L Potassium 5.2 H Chloride Carbon Dioxide BUN 76 H Creatinine 4.2 H Glucose 158 H POC Glucose 169 H Lactic Acid Uric Acid Calcium 8.1 L Total Bilirubin AST ALT Total Creatine Kinase CK-MB (CK-2) CK-MB (CK-2) Rel Index Troponin T C-Reactive Protein NT-Pro-B Natriuret Pep Total Protein Albumin LDL Cholesterol Direct Urine WBC (Auto) 08/23/18 08/23/18 08/24/18 22:43 23:42 05:16 WBC RBC Hgb Hct MCV RDW Plt Count Lymph % (Auto) [place] % (Auto) Eos % (Auto) Baso % (Auto) Lymph # Seg Neuts % (Manual) Lymphocytes % (Manual) Monocytes % (Manual) Basophils % (Manual) Nucleated RBC % Seg Neutrophils # Man Lymphocytes # (Manual) Monocytes # (Manual) PT INR D-Dimer POC ABG pH POC ABG pCO2 POC ABG pO2 Sodium 136 L Potassium 5.3 H 5.2 H Chloride 97.9 L Carbon Dioxide BUN 80 H 86 H Creatinine 4.0 H 4.3 H Glucose 164 H 202 H POC Glucose 183 H Lactic Acid Uric Acid Calcium 7.9 L Total Bilirubin AST ALT Total Creatine Kinase CK-MB (CK-2) CK-MB (CK-2) Rel Index Troponin T C-Reactive Protein NT-Pro-B Natriuret Pep Total Protein Albumin LDL Cholesterol Direct Urine WBC (Auto) 08/24/18 08/24/18 08/24/18 05:21 05:29 10:10 WBC RBC 2.47 L Hgb 7.5 L Hct 23.3 L MCV RDW 17.5 H Plt Count 118 L Lymph % (Auto) [place] % (Auto) Eos % (Auto) Baso % (Auto) Lymph # Seg Neuts % (Manual) 92.0 H Lymphocytes % (Manual) 2.0 L Monocytes % (Manual) Basophils % (Manual) Nucleated RBC % Seg Neutrophils # Man 8.8 H Lymphocytes # (Manual) 0.2 L Monocytes # (Manual) PT INR D-Dimer POC ABG pH 7.243 L POC ABG pCO2 56.8 H POC ABG pO2 Sodium Potassium Chloride Carbon Dioxide BUN Creatinine Glucose POC Glucose 209 H Lactic Acid Uric Acid Calcium Total Bilirubin AST ALT Total Creatine Kinase CK-MB (CK-2) CK-MB (CK-2) Rel Index Troponin T C-Reactive Protein NT-Pro-B Natriuret Pep Total Protein Albumin LDL Cholesterol Direct Urine WBC (Auto) 08/24/18 08/24/18 08/24/18 10:10 11:19 13:41 WBC RBC Hgb Hct MCV RDW Plt Count Lymph % (Auto) [place] % (Auto) Eos % (Auto) Baso % (Auto) Lymph # Seg Neuts % (Manual) Lymphocytes % (Manual) Monocytes % (Manual) Basophils % (Manual) Nucleated RBC % Seg Neutrophils # Man Lymphocytes # (Manual) Monocytes # (Manual) PT INR D-Dimer 1978.25 H POC ABG pH POC ABG pCO2 POC ABG pO2 Sodium Potassium Chloride Carbon Dioxide BUN Creatinine Glucose POC Glucose 212 H Lactic Acid Uric Acid Calcium Total Bilirubin AST ALT Total Creatine Kinase CK-MB (CK-2) CK-MB (CK-2) Rel Index Troponin T C-Reactive Protein NT-Pro-B Natriuret Pep 51965 H Total Protein Albumin LDL Cholesterol Direct Urine WBC (Auto) 08/24/18 08/24/18 08/24/18 13:41 14:27 17:23 WBC RBC Hgb Hct MCV RDW Plt Count Lymph % (Auto) [place] % (Auto) Eos % (Auto) Baso % (Auto) Lymph # Seg Neuts % (Manual) Lymphocytes % (Manual) Monocytes % (Manual) Basophils % (Manual) Nucleated RBC % Seg Neutrophils # Man Lymphocytes # (Manual) Monocytes # (Manual) PT INR D-Dimer POC ABG pH POC ABG pCO2 POC ABG pO2 Sodium 136 L Potassium 5.1 H Chloride 97.8 L Carbon Dioxide BUN 90 H Creatinine 4.1 H Glucose 157 H POC Glucose 155 H Lactic Acid Uric Acid Calcium 8.0 L Total Bilirubin AST ALT Total Creatine Kinase CK-MB (CK-2) CK-MB (CK-2) Rel Index Troponin T C-Reactive Protein 9.00 H NT-Pro-B Natriuret Pep Total Protein Albumin LDL Cholesterol Direct Urine WBC (Auto) 08/25/18 08/25/18 08/25/18 00:38 05:22 05:57 WBC RBC Hgb Hct MCV RDW Plt Count Lymph % (Auto) [place] % (Auto) Eos % (Auto) Baso % (Auto) Lymph # Seg Neuts % (Manual) Lymphocytes % (Manual) Monocytes % (Manual) Basophils % (Manual) Nucleated RBC % Seg Neutrophils # Man Lymphocytes # (Manual) Monocytes # (Manual) PT INR D-Dimer POC ABG pH 7.238 L POC ABG pCO2 58.2 H POC ABG pO2 Sodium Potassium 5.4 H Chloride Carbon Dioxide BUN 98 H Creatinine 4.3 H Glucose 217 H POC Glucose 176 H Lactic Acid Uric Acid Calcium 8.3 L Total Bilirubin AST ALT Total Creatine Kinase CK-MB (CK-2) CK-MB (CK-2) Rel Index Troponin T C-Reactive Protein NT-Pro-B Natriuret Pep 57196 H Total Protein Albumin LDL Cholesterol Direct Urine WBC (Auto) 08/25/18 08/25/18 08/25/18 06:56 08:59 11:38 WBC RBC Hgb Hct MCV RDW Plt Count Lymph % (Auto) [place] % (Auto) Eos % (Auto) Baso % (Auto) Lymph # Seg Neuts % (Manual) Lymphocytes % (Manual) Monocytes % (Manual) Basophils % (Manual) Nucleated RBC % Seg Neutrophils # Man Lymphocytes # (Manual) Monocytes # (Manual) PT INR D-Dimer POC ABG pH 7.348 L POC ABG pCO2 48.6 H POC ABG pO2 Sodium Potassium Chloride Carbon Dioxide BUN Creatinine Glucose POC Glucose 247 H 235 H Lactic Acid Uric Acid Calcium Total Bilirubin AST ALT Total Creatine Kinase CK-MB (CK-2) CK-MB (CK-2) Rel Index Troponin T C-Reactive Protein NT-Pro-B Natriuret Pep Total Protein Albumin LDL Cholesterol Direct Urine WBC (Auto) 08/25/18 08/25/18 08/25/18 12:29 16:43 16:43 WBC 14.7 H RBC 2.90 L Hgb 8.9 L Hct 27.4 L MCV 95 H RDW 17.3 H Plt Count 119 L Lymph % (Auto) [place] % (Auto) Eos % (Auto) Baso % (Auto) Lymph # Seg Neuts % (Manual) 94.0 H Lymphocytes % (Manual) 2.0 L Monocytes % (Manual) Basophils % (Manual) Nucleated RBC % Seg Neutrophils # Man 13.8 H Lymphocytes # (Manual) 0.3 L Monocytes # (Manual) PT 15.6 H INR 1.27 H D-Dimer POC ABG pH POC ABG pCO2 POC ABG pO2 Sodium Potassium Chloride Carbon Dioxide BUN Creatinine Glucose POC Glucose 237 H Lactic Acid Uric Acid Calcium Total Bilirubin AST ALT Total Creatine Kinase CK-MB (CK-2) CK-MB (CK-2) Rel Index Troponin T C-Reactive Protein NT-Pro-B Natriuret Pep Total Protein Albumin LDL Cholesterol Direct Urine WBC (Auto) 08/25/18 08/26/18 08/26/18 17:22 00:16 04:56 WBC RBC Hgb Hct MCV RDW Plt Count Lymph % (Auto) [place] % (Auto) Eos % (Auto) Baso % (Auto) Lymph # Seg Neuts % (Manual) Lymphocytes % (Manual) Monocytes % (Manual) Basophils % (Manual) Nucleated RBC % Seg Neutrophils # Man Lymphocytes # (Manual) Monocytes # (Manual) PT INR D-Dimer POC ABG pH POC ABG pCO2 45.2 H POC ABG pO2 Sodium Potassium Chloride Carbon Dioxide BUN Creatinine Glucose POC Glucose 200 H 180 H Lactic Acid Uric Acid Calcium Total Bilirubin AST ALT Total Creatine Kinase CK-MB (CK-2) CK-MB (CK-2) Rel Index Troponin T C-Reactive Protein NT-Pro-B Natriuret Pep Total Protein Albumin LDL Cholesterol Direct Urine WBC (Auto) 08/26/18 08/26/18 08/26/18 05:53 06:20 08:48 WBC RBC Hgb Hct MCV RDW Plt Count Lymph % (Auto) [place] % (Auto) Eos % (Auto) Baso % (Auto) Lymph # Seg Neuts % (Manual) Lymphocytes % (Manual) Monocytes % (Manual) Basophils % (Manual) Nucleated RBC % Seg Neutrophils # Man Lymphocytes # (Manual) Monocytes # (Manual) PT INR D-Dimer POC ABG pH POC ABG pCO2 POC ABG pO2 Sodium Potassium Chloride Carbon Dioxide BUN 106 H Creatinine 3.9 H Glucose 137 H POC Glucose 131 H 126 H Lactic Acid Uric Acid Calcium 8.1 L Total Bilirubin AST ALT Total Creatine Kinase CK-MB (CK-2) CK-MB (CK-2) Rel Index Troponin T C-Reactive Protein NT-Pro-B Natriuret Pep > 05568 H Total Protein Albumin LDL Cholesterol Direct Urine WBC (Auto) 08/26/18 08/26/18 08/26/18 11:39 17:33 18:02 WBC RBC Hgb Hct MCV RDW Plt Count Lymph % (Auto) [place] % (Auto) Eos % (Auto) Baso % (Auto) Lymph # Seg Neuts % (Manual) Lymphocytes % (Manual) Monocytes % (Manual) Basophils % (Manual) Nucleated RBC % Seg Neutrophils # Man Lymphocytes # (Manual) Monocytes # (Manual) PT INR D-Dimer POC ABG pH POC ABG pCO2 POC ABG pO2 58 L Sodium Potassium Chloride Carbon Dioxide BUN Creatinine Glucose POC Glucose 156 H 173 H Lactic Acid Uric Acid Calcium Total Bilirubin AST ALT Total Creatine Kinase CK-MB (CK-2) CK-MB (CK-2) Rel Index Troponin T C-Reactive Protein NT-Pro-B Natriuret Pep Total Protein Albumin LDL Cholesterol Direct Urine WBC (Auto) 08/26/18 08/27/18 08/27/18 23:12 04:59 11:51 WBC RBC Hgb Hct MCV RDW Plt Count Lymph % (Auto) [place] % (Auto) Eos % (Auto) Baso % (Auto) Lymph # Seg Neuts % (Manual) Lymphocytes % (Manual) Monocytes % (Manual) Basophils % (Manual) Nucleated RBC % Seg Neutrophils # Man Lymphocytes # (Manual) Monocytes # (Manual) PT INR D-Dimer POC ABG pH 7.563 H POC ABG pCO2 < 30 L POC ABG pO2 69 L Sodium Potassium Chloride Carbon Dioxide BUN Creatinine Glucose POC Glucose 130 H 107 H Lactic Acid Uric Acid Calcium Total Bilirubin AST ALT Total Creatine Kinase CK-MB (CK-2) CK-MB (CK-2) Rel Index Troponin T C-Reactive Protein NT-Pro-B Natriuret Pep Total Protein Albumin LDL Cholesterol Direct Urine WBC (Auto) 08/27/18 08/27/18 08/27/18 11:58 11:58 11:58 WBC RBC 2.66 L Hgb 8.1 L Hct 24.7 L MCV RDW 16.7 H Plt Count Lymph % (Auto) [place] % (Auto) Eos % (Auto) Baso % (Auto) Lymph # Seg Neuts % (Manual) Lymphocytes % (Manual) Monocytes % (Manual) Basophils % (Manual) Nucleated RBC % Seg Neutrophils # Man Lymphocytes # (Manual) Monocytes # (Manual) PT INR D-Dimer POC ABG pH POC ABG pCO2 POC ABG pO2 Sodium Potassium Chloride Carbon Dioxide BUN 71 H Creatinine 2.9 H Glucose POC Glucose Lactic Acid Uric Acid Calcium 7.6 L Total Bilirubin AST ALT Total Creatine Kinase CK-MB (CK-2) CK-MB (CK-2) Rel Index Troponin T C-Reactive Protein NT-Pro-B Natriuret Pep > 69040 H Total Protein 6.1 L Albumin 2.4 L LDL Cholesterol Direct Urine WBC (Auto) 08/28/18 08/28/18 08/28/18 04:38 04:49 04:49 WBC RBC 2.65 L Hgb 8.3 L Hct 25.3 L MCV 96 H RDW 17.3 H Plt Count 83 L Lymph % (Auto) [place] % (Auto) Eos % (Auto) Baso % (Auto) Lymph # Seg Neuts % (Manual) Lymphocytes % (Manual) Monocytes % (Manual) Basophils % (Manual) Nucleated RBC % Seg Neutrophils # Man Lymphocytes # (Manual) Monocytes # (Manual) PT INR D-Dimer POC ABG pH POC ABG pCO2 POC ABG pO2 112 H Sodium Potassium Chloride Carbon Dioxide BUN Creatinine Glucose POC Glucose Lactic Acid Uric Acid Calcium Total Bilirubin AST ALT Total Creatine Kinase CK-MB (CK-2) CK-MB (CK-2) Rel Index Troponin T C-Reactive Protein NT-Pro-B Natriuret Pep > 54966 H Total Protein Albumin LDL Cholesterol Direct Urine WBC (Auto) 08/28/18 08/28/18 08/29/18 04:49 14:24 00:11 WBC RBC Hgb Hct MCV RDW Plt Count Lymph % (Auto) [place] % (Auto) Eos % (Auto) Baso % (Auto) Lymph # Seg Neuts % (Manual) Lymphocytes % (Manual) Monocytes % (Manual) Basophils % (Manual) Nucleated RBC % Seg Neutrophils # Man Lymphocytes # (Manual) Monocytes # (Manual) PT INR D-Dimer POC ABG pH 7.278 L POC ABG pCO2 57.9 H POC ABG pO2 79 L Sodium Potassium Chloride Carbon Dioxide BUN 69 H Creatinine 2.4 H Glucose POC Glucose 171 H Lactic Acid Uric Acid Calcium 7.7 L Total Bilirubin AST ALT Total Creatine Kinase CK-MB (CK-2) CK-MB (CK-2) Rel Index Troponin T C-Reactive Protein NT-Pro-B Natriuret Pep Total Protein 5.4 L Albumin 2.2 L LDL Cholesterol Direct Urine WBC (Auto) 08/29/18 08/29/18 08/29/18 04:39 05:35 05:35 WBC 13.6 H RBC 3.09 L Hgb 9.4 L Hct 29.5 L MCV 96 H RDW 17.9 H Plt Count 127 L Lymph % (Auto) [place] % (Auto) Eos % (Auto) Baso % (Auto) Lymph # Seg Neuts % (Manual) Lymphocytes % (Manual) Monocytes % (Manual) Basophils % (Manual) Nucleated RBC % Seg Neutrophils # Man Lymphocytes # (Manual) Monocytes # (Manual) PT INR D-Dimer POC ABG pH 7.312 L POC ABG pCO2 57.6 H POC ABG pO2 79 L Sodium Potassium Chloride Carbon Dioxide BUN 42 H Creatinine 1.9 H Glucose 107 H POC Glucose Lactic Acid Uric Acid Calcium Total Bilirubin AST ALT Total Creatine Kinase CK-MB (CK-2) CK-MB (CK-2) Rel Index Troponin T C-Reactive Protein NT-Pro-B Natriuret Pep Total Protein Albumin LDL Cholesterol Direct Urine WBC (Auto) 08/29/18 08/29/18 08/29/18 05:48 11:37 15:32 WBC RBC Hgb Hct MCV RDW Plt Count Lymph % (Auto) [place] % (Auto) Eos % (Auto) Baso % (Auto) Lymph # Seg Neuts % (Manual) Lymphocytes % (Manual) Monocytes % (Manual) Basophils % (Manual) Nucleated RBC % Seg Neutrophils # Man Lymphocytes # (Manual) Monocytes # (Manual) PT INR D-Dimer POC ABG pH POC ABG pCO2 47.0 H POC ABG pO2 78 L Sodium Potassium Chloride Carbon Dioxide BUN Creatinine Glucose POC Glucose 114 H 116 H Lactic Acid Uric Acid Calcium Total Bilirubin AST ALT Total Creatine Kinase CK-MB (CK-2) CK-MB (CK-2) Rel Index Troponin T C-Reactive Protein NT-Pro-B Natriuret Pep Total Protein Albumin LDL Cholesterol Direct Urine WBC (Auto) 08/29/18 08/30/18 08/30/18 17:28 00:17 04:41 WBC RBC Hgb Hct MCV RDW Plt Count Lymph % (Auto) [place] % (Auto) Eos % (Auto) Baso % (Auto) Lymph # Seg Neuts % (Manual) Lymphocytes % (Manual) Monocytes % (Manual) Basophils % (Manual) Nucleated RBC % Seg Neutrophils # Man Lymphocytes # (Manual) Monocytes # (Manual) PT INR D-Dimer POC ABG pH POC ABG pCO2 48.1 H POC ABG pO2 Sodium Potassium Chloride Carbon Dioxide BUN Creatinine Glucose POC Glucose 174 H 132 H Lactic Acid Uric Acid Calcium Total Bilirubin AST ALT Total Creatine Kinase CK-MB (CK-2) CK-MB (CK-2) Rel Index Troponin T C-Reactive Protein NT-Pro-B Natriuret Pep Total Protein Albumin LDL Cholesterol Direct Urine WBC (Auto) 08/30/18 08/30/18 08/30/18 05:17 05:34 06:10 WBC RBC 2.68 L Hgb 8.2 L Hct 25.6 L MCV 96 H RDW 17.2 H Plt Count 118 L Lymph % (Auto) [place] % (Auto) Eos % (Auto) Baso % (Auto) Lymph # Seg Neuts % (Manual) Lymphocytes % (Manual) Monocytes % (Manual) Basophils % (Manual) Nucleated RBC % Seg Neutrophils # Man Lymphocytes # (Manual) Monocytes # (Manual) PT INR D-Dimer POC ABG pH POC ABG pCO2 POC ABG pO2 Sodium Potassium Chloride Carbon Dioxide BUN 54 H Creatinine 2.4 H Glucose 120 H POC Glucose 141 H Lactic Acid Uric Acid Calcium Total Bilirubin AST ALT Total Creatine Kinase CK-MB (CK-2) CK-MB (CK-2) Rel Index Troponin T C-Reactive Protein NT-Pro-B Natriuret Pep Total Protein Albumin LDL Cholesterol Direct Urine WBC (Auto) 08/30/18 08/30/18 08/30/18 13:11 18:11 23:55 WBC RBC Hgb Hct MCV RDW Plt Count Lymph % (Auto) [place] % (Auto) Eos % (Auto) Baso % (Auto) Lymph # Seg Neuts % (Manual) Lymphocytes % (Manual) Monocytes % (Manual) Basophils % (Manual) Nucleated RBC % Seg Neutrophils # Man Lymphocytes # (Manual) Monocytes # (Manual) PT INR D-Dimer POC ABG pH POC ABG pCO2 POC ABG pO2 Sodium Potassium Chloride Carbon Dioxide BUN Creatinine Glucose POC Glucose 167 H 144 H 144 H Lactic Acid Uric Acid Calcium Total Bilirubin AST ALT Total Creatine Kinase CK-MB (CK-2) CK-MB (CK-2) Rel Index Troponin T C-Reactive Protein NT-Pro-B Natriuret Pep Total Protein Albumin LDL Cholesterol Direct Urine WBC (Auto) 08/31/18 08/31/18 08/31/18 05:07 05:07 05:44 WBC RBC 2.62 L Hgb 8.1 L Hct 25.0 L MCV 96 H RDW 17.5 H Plt Count 128 L Lymph % (Auto) [place] % (Auto) Eos % (Auto) Baso % (Auto) Lymph # Seg Neuts % (Manual) Lymphocytes % (Manual) Monocytes % (Manual) Basophils % (Manual) Nucleated RBC % Seg Neutrophils # Man Lymphocytes # (Manual) Monocytes # (Manual) PT INR D-Dimer POC ABG pH POC ABG pCO2 POC ABG pO2 Sodium Potassium Chloride Carbon Dioxide BUN 58 H Creatinine 2.3 H Glucose 103 H POC Glucose 109 H Lactic Acid Uric Acid Calcium Total Bilirubin AST ALT Total Creatine Kinase CK-MB (CK-2) CK-MB (CK-2) Rel Index Troponin T C-Reactive Protein NT-Pro-B Natriuret Pep Total Protein Albumin LDL Cholesterol Direct Urine WBC (Auto) 08/31/18 08/31/18 08/31/18 11:26 13:54 19:05 WBC RBC Hgb Hct MCV RDW Plt Count Lymph % (Auto) [place] % (Auto) Eos % (Auto) Baso % (Auto) Lymph # Seg Neuts % (Manual) Lymphocytes % (Manual) Monocytes % (Manual) Basophils % (Manual) Nucleated RBC % Seg Neutrophils # Man Lymphocytes # (Manual) Monocytes # (Manual) PT INR D-Dimer POC ABG pH POC ABG pCO2 POC ABG pO2 Sodium Potassium Chloride Carbon Dioxide BUN Creatinine Glucose POC Glucose 117 H 186 H Lactic Acid Uric Acid 9.6 H Calcium Total Bilirubin AST ALT Total Creatine Kinase CK-MB (CK-2) CK-MB (CK-2) Rel Index Troponin T C-Reactive Protein NT-Pro-B Natriuret Pep Total Protein Albumin LDL Cholesterol Direct Urine WBC (Auto) 08/31/18 09/01/18 09/01/18 23:50 06:27 09:21 WBC RBC 2.74 L Hgb 8.6 L Hct 25.8 L MCV RDW 17.3 H Plt Count Lymph % (Auto) [place] % (Auto) Eos % (Auto) Baso % (Auto) Lymph # Seg Neuts % (Manual) Lymphocytes % (Manual) Monocytes % (Manual) Basophils % (Manual) Nucleated RBC % Seg Neutrophils # Man Lymphocytes # (Manual) Monocytes # (Manual) PT INR D-Dimer POC ABG pH POC ABG pCO2 POC ABG pO2 Sodium Potassium Chloride Carbon Dioxide BUN Creatinine Glucose POC Glucose 141 H 62 L Lactic Acid Uric Acid Calcium Total Bilirubin AST ALT Total Creatine Kinase CK-MB (CK-2) CK-MB (CK-2) Rel Index Troponin T C-Reactive Protein NT-Pro-B Natriuret Pep Total Protein Albumin LDL Cholesterol Direct Urine WBC (Auto) 09/01/18 09/01/18 09/01/18 09:21 12:27 17:51 WBC RBC Hgb Hct MCV RDW Plt Count Lymph % (Auto) [place] % (Auto) Eos % (Auto) Baso % (Auto) Lymph # Seg Neuts % (Manual) Lymphocytes % (Manual) Monocytes % (Manual) Basophils % (Manual) Nucleated RBC % Seg Neutrophils # Man Lymphocytes # (Manual) Monocytes # (Manual) PT INR D-Dimer POC ABG pH POC ABG pCO2 POC ABG pO2 Sodium Potassium 3.0 L D Chloride 109.8 H Carbon Dioxide BUN 45 H Creatinine 1.7 H Glucose POC Glucose 106 H 108 H Lactic Acid Uric Acid Calcium 7.1 L D Total Bilirubin AST ALT Total Creatine Kinase CK-MB (CK-2) CK-MB (CK-2) Rel Index Troponin T C-Reactive Protein NT-Pro-B Natriuret Pep Total Protein Albumin LDL Cholesterol Direct Urine WBC (Auto) 09/02/18 09/02/18 09/02/18 05:16 05:16 12:01 WBC RBC 2.60 L Hgb 8.1 L Hct 24.8 L MCV 95 H RDW 17.1 H Plt Count Lymph % (Auto) [place] % (Auto) Eos % (Auto) Baso % (Auto) Lymph # Seg Neuts % (Manual) Lymphocytes % (Manual) Monocytes % (Manual) Basophils % (Manual) Nucleated RBC % Seg Neutrophils # Man Lymphocytes # (Manual) Monocytes # (Manual) PT INR D-Dimer POC ABG pH POC ABG pCO2 POC ABG pO2 Sodium Potassium Chloride Carbon Dioxide BUN 49 H Creatinine 1.8 H Glucose 107 H POC Glucose 124 H Lactic Acid Uric Acid Calcium 8.1 L Total Bilirubin AST ALT Total Creatine Kinase CK-MB (CK-2) CK-MB (CK-2) Rel Index Troponin T C-Reactive Protein NT-Pro-B Natriuret Pep Total Protein Albumin LDL Cholesterol Direct Urine WBC (Auto) 09/02/18 09/02/18 09/03/18 18:38 23:12 08:22 WBC RBC Hgb Hct MCV RDW Plt Count Lymph % (Auto) [place] % (Auto) Eos % (Auto) Baso % (Auto) Lymph # Seg Neuts % (Manual) Lymphocytes % (Manual) Monocytes % (Manual) Basophils % (Manual) Nucleated RBC % Seg Neutrophils # Man Lymphocytes # (Manual) Monocytes # (Manual) PT INR D-Dimer POC ABG pH POC ABG pCO2 POC ABG pO2 Sodium Potassium Chloride Carbon Dioxide BUN Creatinine Glucose POC Glucose 164 H 128 H 115 H Lactic Acid Uric Acid Calcium Total Bilirubin AST ALT Total Creatine Kinase CK-MB (CK-2) CK-MB (CK-2) Rel Index Troponin T C-Reactive Protein NT-Pro-B Natriuret Pep Total Protein Albumin LDL Cholesterol Direct Urine WBC (Auto) 09/03/18 09/03/18 09/03/18 11:48 16:37 20:48 WBC RBC Hgb Hct MCV RDW Plt Count Lymph % (Auto) [place] % (Auto) Eos % (Auto) Baso % (Auto) Lymph # Seg Neuts % (Manual) Lymphocytes % (Manual) Monocytes % (Manual) Basophils % (Manual) Nucleated RBC % Seg Neutrophils # Man Lymphocytes # (Manual) Monocytes # (Manual) PT INR D-Dimer POC ABG pH POC ABG pCO2 POC ABG pO2 Sodium Potassium Chloride Carbon Dioxide BUN Creatinine Glucose POC Glucose 203 H 146 H 150 H Lactic Acid Uric Acid Calcium Total Bilirubin AST ALT Total Creatine Kinase CK-MB (CK-2) CK-MB (CK-2) Rel Index Troponin T C-Reactive Protein NT-Pro-B Natriuret Pep Total Protein Albumin LDL Cholesterol Direct Urine WBC (Auto) 09/04/18 09/04/18 09/04/18 08:29 12:08 13:32 WBC RBC Hgb Hct MCV RDW Plt Count Lymph % (Auto) [place] % (Auto) Eos % (Auto) Baso % (Auto) Lymph # Seg Neuts % (Manual) Lymphocytes % (Manual) Monocytes % (Manual) Basophils % (Manual) Nucleated RBC % Seg Neutrophils # Man Lymphocytes # (Manual) Monocytes # (Manual) PT INR D-Dimer POC ABG pH POC ABG pCO2 POC ABG pO2 Sodium 136 L Potassium Chloride Carbon Dioxide BUN 42 H Creatinine 1.6 H Glucose 180 H POC Glucose 129 H 149 H Lactic Acid Uric Acid Calcium Total Bilirubin AST ALT Total Creatine Kinase CK-MB (CK-2) CK-MB (CK-2) Rel Index Troponin T C-Reactive Protein NT-Pro-B Natriuret Pep Total Protein Albumin LDL Cholesterol Direct Urine WBC (Auto) 09/04/18 09/05/18 09/05/18 16:33 07:03 07:03 WBC RBC 2.92 L Hgb 9.1 L Hct 27.4 L MCV RDW 17.3 H Plt Count Lymph % (Auto) [place] % (Auto) Eos % (Auto) Baso % (Auto) Lymph # Seg Neuts % (Manual) 81.0 H Lymphocytes % (Manual) 7.0 L Monocytes % (Manual) 8.0 H Basophils % (Manual) Nucleated RBC % Seg Neutrophils # Man Lymphocytes # (Manual) 0.5 L Monocytes # (Manual) PT INR D-Dimer POC ABG pH POC ABG pCO2 POC ABG pO2 Sodium Potassium Chloride Carbon Dioxide BUN 40 H Creatinine Glucose 153 H POC Glucose 165 H Lactic Acid Uric Acid Calcium Total Bilirubin AST ALT Total Creatine Kinase CK-MB (CK-2) CK-MB (CK-2) Rel Index Troponin T C-Reactive Protein NT-Pro-B Natriuret Pep Total Protein Albumin LDL Cholesterol Direct Urine WBC (Auto) 09/05/18 09/05/18 09/05/18 08:00 11:51 21:20 WBC RBC Hgb Hct MCV RDW Plt Count Lymph % (Auto) [place] % (Auto) Eos % (Auto) Baso % (Auto) Lymph # Seg Neuts % (Manual) Lymphocytes % (Manual) Monocytes % (Manual) Basophils % (Manual) Nucleated RBC % Seg Neutrophils # Man Lymphocytes # (Manual) Monocytes # (Manual) PT INR D-Dimer POC ABG pH POC ABG pCO2 POC ABG pO2 Sodium Potassium Chloride Carbon Dioxide BUN Creatinine Glucose POC Glucose 146 H 207 H 114 H Lactic Acid Uric Acid Calcium Total Bilirubin AST ALT Total Creatine Kinase CK-MB (CK-2) CK-MB (CK-2) Rel Index Troponin T C-Reactive Protein NT-Pro-B Natriuret Pep Total Protein Albumin LDL Cholesterol Direct Urine WBC (Auto) 09/06/18 09/06/18 09/06/18 06:42 06:42 11:38 WBC RBC 2.90 L Hgb 9.0 L Hct 27.0 L MCV RDW 17.4 H Plt Count 130 L Lymph % (Auto) [place] % (Auto) Eos % (Auto) Baso % (Auto) Lymph # Seg Neuts % (Manual) 79.0 H Lymphocytes % (Manual) 6.0 L Monocytes % (Manual) 12.0 H Basophils % (Manual) 2.0 H Nucleated RBC % Seg Neutrophils # Man Lymphocytes # (Manual) 0.3 L Monocytes # (Manual) PT INR D-Dimer POC ABG pH POC ABG pCO2 POC ABG pO2 Sodium 136 L Potassium Chloride Carbon Dioxide BUN 39 H Creatinine Glucose 106 H POC Glucose 265 H Lactic Acid Uric Acid Calcium Total Bilirubin AST ALT Total Creatine Kinase CK-MB (CK-2) CK-MB (CK-2) Rel Index Troponin T C-Reactive Protein NT-Pro-B Natriuret Pep Total Protein Albumin LDL Cholesterol Direct Urine WBC (Auto) 09/06/18 09/06/18 09/07/18 16:37 20:55 05:12 WBC RBC 2.80 L Hgb 8.7 L Hct 26.5 L MCV 95 H RDW 17.7 H Plt Count Lymph % (Auto) 13.3 L [place] % (Auto) 14.2 H Eos % (Auto) Baso % (Auto) 1.9 H Lymph # 0.7 L Seg Neuts % (Manual) Lymphocytes % (Manual) Monocytes % (Manual) Basophils % (Manual) Nucleated RBC % Seg Neutrophils # Man Lymphocytes # (Manual) Monocytes # (Manual) PT INR D-Dimer POC ABG pH POC ABG pCO2 POC ABG pO2 Sodium Potassium Chloride Carbon Dioxide BUN Creatinine Glucose POC Glucose 131 H 135 H Lactic Acid Uric Acid Calcium Total Bilirubin AST ALT Total Creatine Kinase CK-MB (CK-2) CK-MB (CK-2) Rel Index Troponin T C-Reactive Protein NT-Pro-B Natriuret Pep Total Protein Albumin LDL Cholesterol Direct Urine WBC (Auto) 09/07/18 09/07/18 09/07/18 05:12 11:28 15:32 WBC RBC Hgb Hct MCV RDW Plt Count Lymph % (Auto) [place] % (Auto) Eos % (Auto) Baso % (Auto) Lymph # Seg Neuts % (Manual) Lymphocytes % (Manual) Monocytes % (Manual) Basophils % (Manual) Nucleated RBC % Seg Neutrophils # Man Lymphocytes # (Manual) Monocytes # (Manual) PT INR D-Dimer POC ABG pH POC ABG pCO2 POC ABG pO2 Sodium Potassium Chloride Carbon Dioxide BUN 36 H Creatinine Glucose POC Glucose 176 H 131 H Lactic Acid Uric Acid Calcium Total Bilirubin AST ALT Total Creatine Kinase CK-MB (CK-2) CK-MB (CK-2) Rel Index Troponin T C-Reactive Protein NT-Pro-B Natriuret Pep Total Protein Albumin LDL Cholesterol Direct Urine WBC (Auto) 09/07/18 09/08/18 09/08/18 21:50 05:23 05:23 WBC RBC 2.72 L Hgb 8.5 L Hct 26.9 L MCV 99 H RDW 18.0 H Plt Count 136 L Lymph % (Auto) 13.1 L [place] % (Auto) 15.7 H Eos % (Auto) Baso % (Auto) 1.9 H Lymph # 0.7 L Seg Neuts % (Manual) Lymphocytes % (Manual) Monocytes % (Manual) Basophils % (Manual) Nucleated RBC % Seg Neutrophils # Man Lymphocytes # (Manual) Monocytes # (Manual) PT INR D-Dimer POC ABG pH POC ABG pCO2 POC ABG pO2 Sodium 134 L Potassium 5.2 H Chloride Carbon Dioxide BUN 36 H Creatinine Glucose POC Glucose 160 H Lactic Acid Uric Acid Calcium Total Bilirubin AST ALT Total Creatine Kinase CK-MB (CK-2) CK-MB (CK-2) Rel Index Troponin T C-Reactive Protein NT-Pro-B Natriuret Pep Total Protein Albumin LDL Cholesterol Direct Urine WBC (Auto) 09/08/18 09/08/18 09/09/18 12:33 16:57 05:52 WBC RBC 2.64 L Hgb 8.1 L Hct 25.2 L MCV 95 H RDW 17.8 H Plt Count Lymph % (Auto) [place] % (Auto) 14.3 H Eos % (Auto) Baso % (Auto) 1.9 H Lymph # 0.6 L Seg Neuts % (Manual) Lymphocytes % (Manual) Monocytes % (Manual) Basophils % (Manual) Nucleated RBC % Seg Neutrophils # Man Lymphocytes # (Manual) Monocytes # (Manual) PT INR D-Dimer POC ABG pH POC ABG pCO2 POC ABG pO2 Sodium Potassium Chloride Carbon Dioxide BUN Creatinine Glucose POC Glucose 198 H 195 H Lactic Acid Uric Acid Calcium Total Bilirubin AST ALT Total Creatine Kinase CK-MB (CK-2) CK-MB (CK-2) Rel Index Troponin T C-Reactive Protein NT-Pro-B Natriuret Pep Total Protein Albumin LDL Cholesterol Direct Urine WBC (Auto) 09/09/18 09/09/18 09/09/18 05:52 11:50 16:28 WBC RBC Hgb Hct MCV RDW Plt Count Lymph % (Auto) [place] % (Auto) Eos % (Auto) Baso % (Auto) Lymph # Seg Neuts % (Manual) Lymphocytes % (Manual) Monocytes % (Manual) Basophils % (Manual) Nucleated RBC % Seg Neutrophils # Man Lymphocytes # (Manual) Monocytes # (Manual) PT INR D-Dimer POC ABG pH POC ABG pCO2 POC ABG pO2 Sodium 136 L Potassium Chloride Carbon Dioxide BUN 34 H Creatinine Glucose POC Glucose 122 H 170 H Lactic Acid Uric Acid Calcium 8.1 L Total Bilirubin AST ALT Total Creatine Kinase CK-MB (CK-2) CK-MB (CK-2) Rel Index Troponin T C-Reactive Protein NT-Pro-B Natriuret Pep Total Protein Albumin LDL Cholesterol Direct Urine WBC (Auto) 09/09/18 09/10/18 09/10/18 22:02 05:09 05:09 WBC 3.9 L RBC 2.63 L Hgb 8.2 L Hct 25.0 L MCV 95 H RDW 17.4 H Plt Count Lymph % (Auto) [place] % (Auto) 15.9 H Eos % (Auto) Baso % (Auto) 2.0 H Lymph # 0.6 L Seg Neuts % (Manual) Lymphocytes % (Manual) Monocytes % (Manual) Basophils % (Manual) Nucleated RBC % Seg Neutrophils # Man Lymphocytes # (Manual) Monocytes # (Manual) PT INR D-Dimer POC ABG pH POC ABG pCO2 POC ABG pO2 Sodium Potassium 5.1 H Chloride Carbon Dioxide BUN 31 H Creatinine Glucose 106 H POC Glucose 144 H Lactic Acid Uric Acid Calcium 8.3 L Total Bilirubin AST ALT Total Creatine Kinase CK-MB (CK-2) CK-MB (CK-2) Rel Index Troponin T C-Reactive Protein NT-Pro-B Natriuret Pep Total Protein Albumin LDL Cholesterol Direct Urine WBC (Auto) 09/10/18 09/10/18 09/10/18 13:09 17:07 21:13 WBC RBC Hgb Hct MCV RDW Plt Count Lymph % (Auto) [place] % (Auto) Eos % (Auto) Baso % (Auto) Lymph # Seg Neuts % (Manual) Lymphocytes % (Manual) Monocytes % (Manual) Basophils % (Manual) Nucleated RBC % Seg Neutrophils # Man Lymphocytes # (Manual) Monocytes # (Manual) PT INR D-Dimer POC ABG pH POC ABG pCO2 POC ABG pO2 Sodium Potassium Chloride Carbon Dioxide BUN Creatinine Glucose POC Glucose 134 H 117 H 154 H Lactic Acid Uric Acid Calcium Total Bilirubin AST ALT Total Creatine Kinase CK-MB (CK-2) CK-MB (CK-2) Rel Index Troponin T C-Reactive Protein NT-Pro-B Natriuret Pep Total Protein Albumin LDL Cholesterol Direct Urine WBC (Auto) 09/11/18 09/11/18 09/11/18 06:00 06:00 09:11 WBC 3.5 L RBC 2.41 L Hgb 7.4 L Hct 23.0 L MCV 96 H RDW 18.1 H Plt Count Lymph % (Auto) [place] % (Auto) 15.3 H Eos % (Auto) 5.2 H Baso % (Auto) 2.6 H Lymph # 0.6 L Seg Neuts % (Manual) Lymphocytes % (Manual) Monocytes % (Manual) Basophils % (Manual) Nucleated RBC % Seg Neutrophils # Man Lymphocytes # (Manual) Monocytes # (Manual) PT INR D-Dimer POC ABG pH POC ABG pCO2 POC ABG pO2 Sodium Potassium 5.4 H Chloride Carbon Dioxide BUN 30 H Creatinine Glucose 108 H POC Glucose 124 H Lactic Acid Uric Acid Calcium Total Bilirubin AST ALT Total Creatine Kinase CK-MB (CK-2) CK-MB (CK-2) Rel Index Troponin T C-Reactive Protein NT-Pro-B Natriuret Pep Total Protein Albumin LDL Cholesterol Direct Urine WBC (Auto) 09/11/18 09/11/18 09/11/18 12:06 16:18 21:26 WBC RBC Hgb Hct MCV RDW Plt Count Lymph % (Auto) [place] % (Auto) Eos % (Auto) Baso % (Auto) Lymph # Seg Neuts % (Manual) Lymphocytes % (Manual) Monocytes % (Manual) Basophils % (Manual) Nucleated RBC % Seg Neutrophils # Man Lymphocytes # (Manual) Monocytes # (Manual) PT INR D-Dimer POC ABG pH POC ABG pCO2 POC ABG pO2 Sodium Potassium Chloride Carbon Dioxide BUN Creatinine Glucose POC Glucose 144 H 138 H 163 H Lactic Acid Uric Acid Calcium Total Bilirubin AST ALT Total Creatine Kinase CK-MB (CK-2) CK-MB (CK-2) Rel Index Troponin T C-Reactive Protein NT-Pro-B Natriuret Pep Total Protein Albumin LDL Cholesterol Direct Urine WBC (Auto) 09/12/18 09/12/18 09/12/18 09:17 09:17 11:16 WBC 4.0 L RBC 2.62 L Hgb 8.1 L Hct 25.0 L MCV 96 H RDW 17.8 H Plt Count Lymph % (Auto) [place] % (Auto) Eos % (Auto) Baso % (Auto) Lymph # Seg Neuts % (Manual) Lymphocytes % (Manual) Monocytes % (Manual) Basophils % (Manual) Nucleated RBC % Seg Neutrophils # Man Lymphocytes # (Manual) Monocytes # (Manual) PT INR D-Dimer POC ABG pH POC ABG pCO2 POC ABG pO2 Sodium Potassium 5.3 H Chloride Carbon Dioxide BUN 27 H Creatinine Glucose 113 H POC Glucose 147 H Lactic Acid Uric Acid Calcium Total Bilirubin AST ALT Total Creatine Kinase CK-MB (CK-2) CK-MB (CK-2) Rel Index Troponin T C-Reactive Protein NT-Pro-B Natriuret Pep Total Protein Albumin LDL Cholesterol Direct Urine WBC (Auto) 09/12/18 09/12/18 09/13/18 15:31 21:23 06:48 WBC 3.7 L RBC 2.49 L Hgb 7.7 L Hct 23.7 L MCV 95 H RDW 17.4 H Plt Count Lymph % (Auto) [place] % (Auto) Eos % (Auto) Baso % (Auto) Lymph # Seg Neuts % (Manual) Lymphocytes % (Manual) Monocytes % (Manual) Basophils % (Manual) Nucleated RBC % Seg Neutrophils # Man Lymphocytes # (Manual) Monocytes # (Manual) PT INR D-Dimer POC ABG pH POC ABG pCO2 POC ABG pO2 Sodium Potassium Chloride Carbon Dioxide BUN Creatinine Glucose POC Glucose 126 H 116 H Lactic Acid Uric Acid Calcium Total Bilirubin AST ALT Total Creatine Kinase CK-MB (CK-2) CK-MB (CK-2) Rel Index Troponin T C-Reactive Protein NT-Pro-B Natriuret Pep Total Protein Albumin LDL Cholesterol Direct Urine WBC (Auto) 09/13/18 09/13/18 09/13/18 06:48 16:49 21:44 WBC RBC Hgb Hct MCV RDW Plt Count Lymph % (Auto) [place] % (Auto) Eos % (Auto) Baso % (Auto) Lymph # Seg Neuts % (Manual) Lymphocytes % (Manual) Monocytes % (Manual) Basophils % (Manual) Nucleated RBC % Seg Neutrophils # Man Lymphocytes # (Manual) Monocytes # (Manual) PT INR D-Dimer POC ABG pH POC ABG pCO2 POC ABG pO2 Sodium Potassium 5.5 H Chloride Carbon Dioxide BUN 25 H Creatinine Glucose 106 H POC Glucose 112 H 117 H Lactic Acid Uric Acid Calcium Total Bilirubin AST ALT Total Creatine Kinase CK-MB (CK-2) CK-MB (CK-2) Rel Index Troponin T C-Reactive Protein NT-Pro-B Natriuret Pep Total Protein Albumin LDL Cholesterol Direct Urine WBC (Auto) 09/14/18 09/14/18 09/14/18 04:44 11:43 16:35 WBC RBC Hgb Hct MCV RDW Plt Count Lymph % (Auto) [place] % (Auto) Eos % (Auto) Baso % (Auto) Lymph # Seg Neuts % (Manual) Lymphocytes % (Manual) Monocytes % (Manual) Basophils % (Manual) Nucleated RBC % Seg Neutrophils # Man Lymphocytes # (Manual) Monocytes # (Manual) PT INR D-Dimer POC ABG pH POC ABG pCO2 POC ABG pO2 Sodium Potassium 5.1 H Chloride Carbon Dioxide BUN 23 H Creatinine Glucose 112 H POC Glucose 166 H 140 H Lactic Acid Uric Acid Calcium 8.2 L Total Bilirubin AST ALT Total Creatine Kinase CK-MB (CK-2) CK-MB (CK-2) Rel Index Troponin T C-Reactive Protein NT-Pro-B Natriuret Pep Total Protein Albumin LDL Cholesterol Direct Urine WBC (Auto) 09/14/18 09/15/18 21:44 11:41 WBC RBC Hgb Hct MCV RDW Plt Count Lymph % (Auto) [place] % (Auto) Eos % (Auto) Baso % (Auto) Lymph # Seg Neuts % (Manual) Lymphocytes % (Manual) Monocytes % (Manual) Basophils % (Manual) Nucleated RBC % Seg Neutrophils # Man Lymphocytes # (Manual) Monocytes # (Manual) PT INR D-Dimer POC ABG pH POC ABG pCO2 POC ABG pO2 Sodium Potassium Chloride Carbon Dioxide BUN Creatinine Glucose POC Glucose 172 H 143 H Lactic Acid Uric Acid Calcium Total Bilirubin AST ALT Total Creatine Kinase CK-MB (CK-2) CK-MB (CK-2) Rel Index Troponin T C-Reactive Protein NT-Pro-B Natriuret Pep Total Protein Albumin LDL Cholesterol Direct Urine WBC (Auto) Allied health notes reviewed: RT
--- NOTE | 2018-09-15 14:10 | Progress Note ---
Assessment and Plan Assessment and plan: Acute on chronic respiratory failure. Etiology secondary to COPD exacerbation. Continue O2 and nebulizers. Improving. Acute kidney injury on CKD stage III. Off hemodialysis now. Creatinine remained stable despite off hemodialysis. Acute COPD exacerbation. We'll continue nebulizers, antibiotics and O2 continuously. Patient doing well. Awaiting fci placement Hyperkalemia. Now resolved after multiple doses kayexalate Pneumonia may be gram-negative nini continue current antibiotics per ID. Sepsis. Improved. Leukocytosis resolved. Pulseless electrical activity status post cardiorespiratory arrest. Cont. beta renetta and aspirin. Supportive care. Seizure disorder. EEG Normal Morbid obesity. supportive care Disposition. Awaiting [facility] placement. History Interval history: Feels better No shortness of breath currently Hospitalist Physical - Physical exam Narrative exam: Gen: Not in acute distress, lying in bed, morbidly obese HEENT: Normocephalic, atraumatic Neck: supple, no JVD Heart: S1 and S2 reg, no murmurs, rubs or gallop Lungs: Decreased breath sounds, no crackles or wheeze Abd: soft, non tender, non distended, normal BS Ext: No edema, no clubbing, no cyanosis Neuro:awake,alert, Oriented X 3. No focal signs - Constitutional Vitals: Temp Pulse Resp BP Pulse Ox 98.0 F 101 H 22 122/71 99 09/15/18 07:44 09/15/18 11:23 09/15/18 07:44 09/15/18 11:23 09/15/18 11:21 General appearance: Present: no acute distress, other (intubated, chronically ill appearing) Results - Labs CBC & Chem 7: 09/13/18 06:48 09/15/18 07:49 Labs: Laboratory Last Values WBC 3.7 K/mm3 (4.5-11.0) L 09/13/18 06:48 RBC 2.49 M/mm3 (3.65-5.03) L 09/13/18 06:48 Hgb 7.7 gm/dl (11.8-15.2) L 09/13/18 06:48 Hct 23.7 % (35.5-45.6) L 09/13/18 06:48 MCV 95 fl (84-94) H 09/13/18 06:48 MCH 31 pg (28-32) 09/13/18 06:48 MCHC 33 % (32-34) 09/13/18 06:48 RDW 17.4 % (13.2-15.2) H 09/13/18 06:48 Plt Count 178 K/mm3 (140-440) 09/13/18 06:48 Lymph % (Auto) 16.1 % (13.4-35.0) 09/11/18 06:00 [place] % (Auto) 15.3 % (0.0-7.3) H 09/11/18 06:00 Eos % (Auto) 5.2 % (0.0-4.3) H 09/11/18 06:00 Baso % (Auto) 2.6 % (0.0-1.8) H 09/11/18 06:00 Lymph # 0.6 K/mm3 (1.2-5.4) L 09/11/18 06:00 [place] # 0.5 K/mm3 (0.0-0.8) 09/11/18 06:00 Eos # 0.2 K/mm3 (0.0-0.4) 09/11/18 06:00 Baso # 0.1 K/mm3 (0.0-0.1) 09/11/18 06:00 Add Manual Diff Complete 09/06/18 06:42 Total Counted 100 09/06/18 06:42 Seg Neutrophils % 60.8 % (40.0-70.0) 09/11/18 06:00 Seg Neuts % (Manual) 79.0 % (40.0-70.0) H 09/06/18 06:42 0 % 09/06/18 06:42 6.0 % (13.4-35.0) L 09/06/18 06:42 Reactive Lymphs % (Man) 0 % 09/06/18 06:42 12.0 % (0.0-7.3) H 09/06/18 06:42 1.0 % (0.0-4.3) 09/06/18 06:42 2.0 % (0.0-1.8) H 09/06/18 06:42 0 % 09/06/18 06:42 0 % 09/06/18 06:42 0 % 09/06/18 06:42 0 % 09/06/18 06:42 Nucleated RBC % Not Reportable 09/06/18 06:42 Seg Neutrophils # 2.1 K/mm3 (1.8-7.7) 09/11/18 06:00 Seg Neutrophils # Man 3.9 K/mm3 (1.8-7.7) 09/06/18 06:42 Band Neutrophils # 0.0 K/mm3 09/06/18 06:42 0.3 K/mm3 (1.2-5.4) L 09/06/18 06:42 Abs React Lymphs (Man) 0.0 K/mm3 09/06/18 06:42 0.6 K/mm3 (0.0-0.8) 09/06/18 06:42 0.0 K/mm3 (0.0-0.4) 09/06/18 06:42 0.1 K/mm3 (0.0-0.1) 09/06/18 06:42 0.0 K/mm3 09/06/18 06:42 0.0 K/mm3 09/06/18 06:42 0.0 K/mm3 09/06/18 06:42 Blast Cells # 0.0 K/mm3 09/06/18 06:42 WBC Morphology Not Reportable 09/06/18 06:42 Hypersegmented Neuts Not Reportable 09/06/18 06:42 Hyposegmented Neuts Not Reportable 09/06/18 06:42 Hypogranular Neuts Not Reportable 09/06/18 06:42 Not Reportable 09/06/18 06:42 Not Reportable 09/06/18 06:42 Not Reportable 09/06/18 06:42 Not Reportable 09/06/18 06:42 Not Reportable 09/06/18 06:42 Not Reportable 09/06/18 06:42 Consistent w auto 09/06/18 06:42 Not Reportable 09/06/18 06:42 Plt Clumps, EDTA Not Reportable 09/06/18 06:42 Not Reportable 09/06/18 06:42 Not Reportable 09/06/18 06:42 Not Reportable 09/06/18 06:42 Plt Morphology Comment Not Reportable 09/06/18 06:42 RBC Morphology Not Reportable 09/06/18 06:42 Dimorphic RBCs Not Reportable 09/06/18 06:42 Not Reportable 09/06/18 06:42 Not Reportable 09/06/18 06:42 Not Reportable 09/06/18 06:42 1+ 09/06/18 06:42 Not Reportable 09/06/18 06:42 1+ 09/06/18 06:42 Not Reportable 09/06/18 06:42 Not Reportable 09/06/18 06:42 Not Reportable 09/06/18 06:42 Not Reportable 09/06/18 06:42 Not Reportable 09/06/18 06:42 Not Reportable 09/06/18 06:42 Not Reportable 09/06/18 06:42 Not Reportable 09/06/18 06:42 Not Reportable 09/06/18 06:42 Not Reportable 09/06/18 06:42 Not Reportable 09/06/18 06:42 Not Reportable 09/06/18 06:42 Not Reportable 09/06/18 06:42 Acanthocytes (Spur) Not Reportable 09/06/18 06:42 Rouleaux Not Reportable 09/06/18 06:42 Not Reportable 09/06/18 06:42 Not Reportable 09/06/18 06:42 Not Reportable 09/06/18 06:42 Not Reportable 09/06/18 06:42 Hem Pathologist Commnt No 09/06/18 06:42 PT 15.6 Sec. (12.2-14.9) H 08/25/18 16:43 INR 1.27 (0.87-1.13) H 08/25/18 16:43 APTT 30.8 Sec. (24.2-36.6) 08/21/18 04:42 1978.25 ng/mlDDU (0-234) H 08/24/18 13:41 POC ABG pH 7.410 (7.35-7.45) 08/30/18 13:35 POC ABG pCO2 41.4 (35-45) 08/30/18 13:35 POC ABG pO2 99 (80-105) 08/30/18 13:35 POC ABG HCO3 26.2 (22-26 mml/L) 08/30/18 13:35 POC ABG Total CO2 27 (23-27mmol/L) 08/30/18 13:35 POC ABG O2 Sat 98 08/30/18 13:35 POC ABG Base Excess 2 ((-2) - (+3)mmol/L) 08/30/18 13:35 30 % 08/30/18 13:35 Sodium 141 mmol/L (137-145) 09/14/18 04:44 Potassium 4.8 mmol/L (3.6-5.0) 09/15/18 07:49 Chloride 104.4 mmol/L (98-107) 09/14/18 04:44 Carbon Dioxide 28 mmol/L (22-30) 09/14/18 04:44 14 mmol/L 09/14/18 04:44 BUN 23 mg/dL (9-20) H 09/14/18 04:44 1.4 mg/dL (0.8-1.5) 09/14/18 04:44 Estimated GFR 50 ml/min 09/14/18 04:44 16 % 09/14/18 04:44 Glucose 112 mg/dL (75-100) H 09/14/18 04:44 POC Glucose 143 (70-105) H 09/15/18 11:41 317 Mosm/kg 08/31/18 13:54 Lactic Acid 1.30 mmol/L (0.7-2.0) 08/21/18 20:50 9.6 mg/dL (3.5-7.6) H 08/31/18 13:54 Calcium 8.2 mg/dL (8.4-10.2) L 09/14/18 04:44 Magnesium 2.00 mg/dL (1.7-2.3) 09/02/18 05:16 0.60 mg/dL (0.1-1.2) 08/28/18 04:49 AST 27 units/L (5-40) 08/28/18 04:49 ALT 12 units/L (7-56) 08/28/18 04:49 87 units/L (35-129) 08/28/18 04:49 222 units/L (55-170) H 08/21/18 10:45 CK-MB (CK-2) 9.2 ng/mL (0.0-4.0) H 08/21/18 10:45 CK-MB (CK-2) Rel Index 4.1 (0-4) H 08/21/18 10:45 0.020 ng/mL (0.00-0.029) 09/08/18 09:06 9.00 mg/dL (0.00-1.30) H 08/24/18 13:41 NT-Pro-B Natriuret Pep > 64651 pg/mL (0-900) H 08/28/18 04:49 5.4 g/dL (6.3-8.2) L 08/28/18 04:49 2.2 g/dL (3.9-5) L 08/28/18 04:49 0.7 % 08/28/18 04:49 Triglycerides 87 mg/dL (2-149) 08/21/18 04:42 Cholesterol 93 mg/dL (50-199) 08/21/18 04:42 44 mg/dL (50-130) L 08/21/18 04:42 41 mg/dL (40-59) 08/21/18 04:42 2.26 % 08/21/18 04:42 Yellow (Yellow) 08/21/18 15:03 Slightly-cloudy (Clear) 08/21/18 15:03 5.0 (5.0-7.0) 08/21/18 15:03 Ur Specific [place] 1.015 (1.003-1.030) 08/21/18 15:03 30 mg/dl mg/dL (Negative) 08/21/18 15:03 Neg mg/dL (Negative) 08/21/18 15:03 Neg mg/dL (Negative) 08/21/18 15:03 Mod (Negative) 08/21/18 15:03 Neg (Negative) 08/21/18 15:03 Neg (Negative) 08/21/18 15:03 < 2.0 mg/dL (<2.0) 08/21/18 15:03 Ur Leukocyte Esterase Tr (Negative) 08/21/18 15:03 13.0 /HPF (0.0-6.0) H 08/21/18 15:03 15.0 /HPF (0.0-6.0) 08/21/18 15:03 U Epithel Cells (Auto) 1.0 /HPF (0-13.0) 08/21/18 15:03 1+ /HPF (Negative) 08/21/18 15:03 Few /HPF 08/21/18 15:03 Random Vancomycin 10.5 ug/mL (0-40.0) 08/26/18 05:53 Levetiracetam 25.7 mcg/mL (12.0-46.0) 08/26/18 13:42 Hepatitis A IgM Ab Non-reactive (NonReactive) 08/27/18 23:25 Hep Bs Antigen Non-reactive (Negative) 08/27/18 23:25 Hep B Core IgM Ab Non-reactive (NonReactive) 08/27/18 23:25 Non-reactive (NonReactive) 08/27/18 23:25 Active Medications - Current Medications Current Medications: Generic Name Dose Route Start Last Admin Trade Name Freq PRN Reason Stop Dose Admin Acetaminophen 650 mg 08/21/18 06:31 09/01/18 21:12 Tylenol PO 650 mg Q4H PRN Administration Pain MILD(1-3)/Fever >100.5/COOK Albuterol/Ipratropium 1 ampul 08/24/18 20:00 09/14/18 20:10 Duoneb *Not For Prn Use* IH 1 ampul BIDRT LUIS Administration Lipase/Protease/Amylase 1 each 08/26/18 12:07 Pancreamaris [place] 10,500 Unit FEEDTUBE PRN PRN For Clogged Feeding Tube Arformoterol Tartrate 15 mcg 08/24/18 20:00 09/14/18 20:10 Brovana Nebu IH 15 mcg Q12HRT LUIS Administration Bisacodyl 10 mg 09/02/18 12:42 Dulcolax AR QDAY PRN Constipation Budesonide 0.5 mg 08/24/18 20:00 09/14/18 20:10 Pulmicort IH 0.5 mg Q12HRT LUIS Administration Dextrose 50 ml 08/21/18 06:48 D50w (25gm) Syringe IV PRN PRN Hypoglycemia Diphenhydramine HCl 25 mg 09/11/18 06:07 09/14/18 12:28 Benadryl PO 25 mg Q6H PRN Administration Itching Heparin Sodium (Porcine) 5,000 unit 08/22/18 10:00 09/15/18 11:00 Heparin SUB-Q 5,000 unit Q12HR LUIS Administration Hydralazine HCl 50 mg 09/08/18 10:00 09/15/18 11:23 Apresoline PO 50 mg BID LUIS Administration Insulin Human Lispro 0 unit 08/31/18 22:00 09/15/18 12:00 Humalog SUB-Q Not Given ACHS [facility] Protocol Levetiracetam 750 mg 09/04/18 22:00 09/15/18 11:00 Keppra PO 750 mg BID LUIS Administration Metoclopramide HCl 10 mg 09/05/18 18:35 09/10/18 03:02 Reglan IV 10 mg Q6H PRN Administration Nausea And Vomiting Morphine Sulfate 2 mg 08/26/18 14:24 08/30/18 01:40 Morphine IV 2 mg Q6H PRN Administration Pain, Moderate (4-6) Ondansetron HCl 4 mg 08/21/18 06:31 Zofran IV Q8H PRN Nausea And Vomiting Sodium Chloride 10 ml 08/21/18 10:00 09/15/18 11:00 Sodium Chloride Flush Syringe 10 Ml IV 10 ml BID LUIS Administration Zolpidem Tartrate 5 mg 09/09/18 00:19 09/15/18 00:31 Ambien PO 5 mg QHS PRN Administration Sleep Nutrition/Malnutrition Assess - Dietary Evaluation Nutrition/Malnutrition Findings: Nutrition Notes Start: 08/21/18 16:58 Freq: Status: Active Protocol: Document 09/12/18 14:04 RM (Rec: 09/12/18 14:12 [email or web address]) Nutrition Notes Initial or Follow up Reassessment Current Diagnosis CKD(stage I-IV),Diabetes, Sepsis,Heart Failure Other Pertinent Diagnosis COPD exacerbation, pneu, s/p cardiac arrest Current Diet Cardiac/Consistent CHO Labs/Tests Reviewed Pertinent Medications Reviewed Height 5 ft 6 in Weight 138.1 kg [place] Body Weight (kg) 64.54 BMI 49.1 Weight change and time frame Current wt obtained from [facility]. Wt loss possibly d/t fluid change Subjective/Other Information Glucerna no longer in diet order. Pt stated that he eats 1/3 to 50% of his meals. Stated that he was drinking the Glucerna previously but has not received any the past few days. Assistant Surveyor brought pt 2 Glucerna. Burn Absent Trauma Absent #1 Nutrition Diagnosis Inadequate oral intake Diagnosis Progress(for reassessment Continues documentation) Is patient on ventilator? No Is Patient Ambulatory and/or Out of Bed No REE-([place] Jeor-confined to bed) 2493.756 Kcal/Kg value to use for calculation 12 Approximate Energy Requirements Using 1657 kcal/Kg Calculation Used for Recommendations Kcal/kg Additional Notes Pro needs 1-1.2g/kg adjBW: 105-127g/day Fluid needs 1ml/kcal Nutrition Intervention Change Diet Order: Continue current Add Supplement/Snack (indicate name/kcal Glucerna Chocolate, [place] /protein ) BID Provides kCal: 440 Provides Protein (gm) 20 Goal #1 Meet at least 75% of kcal and protein needs via PO intakes Anticipated Discharge Needs: Cardiac/Consistent CHO Follow-Up By: 09/18/18 Additional Comments Follow for PO and ONS intakes
[2018-09-15] MEDS: BROVANA NEBU IH SCH ×2 (19:54→20:13)
[2018-09-15] MEDS: PULMICORT IH SCH ×2 (19:54→20:14)
[2018-09-15] MEDS: DUONEB *Not for PRN Use IH SCH ×2 (20:13→20:14)
[2018-09-16] MEDS: AMBIEN PO PRN (00:49)
--- NOTE | 2018-09-16 07:11 | Progress Note ---
Subjective Date of service: 09/16/18 Principal diagnosis: s/p cardiac arrest; severe sepsis; acute hypoxemic- hypercapnic resp failure Interval history: Patient is seen today for: cardiopulmonary arrest, severe sepsis, acute hypoxemic-hypercapnic respiratory failure s/p MVS, KHRIS on CKD on HD Seen and examined at bedside; 24hour events reviewed; nursing and respiratory care staff consulted; no adverse overnight events reported to me; Awake and alert, obeying simple commands, being fed by his . Making good amounts of urine, HD on hold for now. He denies any chest pain, no shortness of breath, no nausea or vomiting, no fevers Objective Vital Signs - 12hr 09/15/18 09/15/18 09/15/18 19:59 20:02 20:13 Temperature 98.7 F Pulse Rate 94 H Pulse Rate [ 95 H Anterior Bilateral Throughout] Respiratory 20 Rate Respiratory 18 Rate [Anterior Bilateral Throughout] Blood Pressure 130/74 Blood Pressure [Right] O2 Sat by Pulse 96 96 Oximetry 09/15/18 09/16/18 22:34 03:10 Temperature 97.8 F Pulse Rate 94 H 81 Pulse Rate [ Anterior Bilateral Throughout] Respiratory 18 Rate Respiratory Rate [Anterior Bilateral Throughout] Blood Pressure 130/74 Blood Pressure 140/63 [Right] O2 Sat by Pulse 100 Oximetry Constitutional: no acute distress, alert Eyes: non-icteric ENT: oropharynx moist, other Neck: supple, no JVD, other (short neck) Effort: mildly labored Ascultation: Bilateral: diminished breath sounds, rhonchi (coarse BS bilaterally) Percussion: Bilateral: not dull Cardiovascular: regular rate and rhythm, other (S1,S2, no murmurs, no gallops or rubs) Gastrointestinal: normoactive bowel sounds, soft, non-tender, non-distended, other (Madison catheter in place, clear urine) Integumentary: normal, other (right femoral HD catheter) Extremities: no cyanosis, no edema, pink and warm, pulses normal, no ischemia or petechiae Neurologic: non-focal exam (grossly), pupils equal and round, motor strength normal and, other (awake and alert, obeying one step commands) Psychiatric: mood appropriate, affect normal CBC and BMP: 09/13/18 06:48 09/15/18 07:49 ABG, PT/INR, D-dimer: ABG POC ABG pH 7.410 (7.35-7.45) 08/30/18 13:35 POC ABG pCO2 41.4 (35-45) 08/30/18 13:35 POC ABG pO2 99 (80-105) 08/30/18 13:35 POC ABG HCO3 26.2 (22-26 mml/L) 08/30/18 13:35 POC ABG Total CO2 27 (23-27mmol/L) 08/30/18 13:35 POC ABG O2 Sat 98 08/30/18 13:35 PT/INR, D-dimer PT 15.6 Sec. (12.2-14.9) H 08/25/18 16:43 INR 1.27 (0.87-1.13) H 08/25/18 16:43 1978.25 ng/mlDDU (0-234) H 08/24/18 13:41 Abnormal lab findings: Abnormal Labs 08/21/18 08/21/18 08/21/18 04:42 04:42 04:42 WBC 19.1 H RBC 2.49 L Hgb 7.7 L Hct 24.5 L MCV 98 H RDW 17.7 H Plt Count Lymph % (Auto) [place] % (Auto) Eos % (Auto) Baso % (Auto) Lymph # Seg Neuts % (Manual) 84.0 H Lymphocytes % (Manual) 7.0 L Monocytes % (Manual) 9.0 H Basophils % (Manual) Nucleated RBC % Seg Neutrophils # Man 16.0 H Lymphocytes # (Manual) Monocytes # (Manual) 1.7 H PT 20.1 H INR 1.76 H D-Dimer POC ABG pH POC ABG pCO2 POC ABG pO2 Sodium Potassium Chloride Carbon Dioxide BUN Creatinine Glucose POC Glucose Lactic Acid Uric Acid Calcium Total Bilirubin AST ALT Total Creatine Kinase CK-MB (CK-2) CK-MB (CK-2) Rel Index Troponin T 0.032 H C-Reactive Protein NT-Pro-B Natriuret Pep Total Protein Albumin LDL Cholesterol Direct 44 L Urine WBC (Auto) 08/21/18 08/21/18 08/21/18 04:42 04:42 04:42 WBC RBC Hgb Hct MCV RDW Plt Count Lymph % (Auto) [place] % (Auto) Eos % (Auto) Baso % (Auto) Lymph # Seg Neuts % (Manual) Lymphocytes % (Manual) Monocytes % (Manual) Basophils % (Manual) Nucleated RBC % Seg Neutrophils # Man Lymphocytes # (Manual) Monocytes # (Manual) PT INR D-Dimer POC ABG pH POC ABG pCO2 POC ABG pO2 Sodium Potassium 6.0 H Chloride Carbon Dioxide 15 L BUN 57 H Creatinine 4.3 H Glucose 111 H POC Glucose Lactic Acid 5.80 H* Uric Acid Calcium Total Bilirubin 1.80 H AST 212 H ALT 94 H Total Creatine Kinase CK-MB (CK-2) CK-MB (CK-2) Rel Index Troponin T C-Reactive Protein NT-Pro-B Natriuret Pep 35062 H Total Protein Albumin 3.2 L LDL Cholesterol Direct Urine WBC (Auto) 08/21/18 08/21/18 08/21/18 05:08 05:58 05:58 WBC RBC Hgb Hct MCV RDW Plt Count Lymph % (Auto) [place] % (Auto) Eos % (Auto) Baso % (Auto) Lymph # Seg Neuts % (Manual) Lymphocytes % (Manual) Monocytes % (Manual) Basophils % (Manual) Nucleated RBC % Seg Neutrophils # Man Lymphocytes # (Manual) Monocytes # (Manual) PT INR D-Dimer POC ABG pH 7.164 L POC ABG pCO2 46.3 H POC ABG pO2 229 H Sodium Potassium Chloride Carbon Dioxide BUN Creatinine Glucose POC Glucose Lactic Acid 5.10 H* Uric Acid Calcium Total Bilirubin AST ALT Total Creatine Kinase CK-MB (CK-2) CK-MB (CK-2) Rel Index Troponin T 0.035 H C-Reactive Protein NT-Pro-B Natriuret Pep Total Protein Albumin LDL Cholesterol Direct Urine WBC (Auto) 08/21/18 08/21/18 08/21/18 06:45 06:45 06:53 WBC RBC Hgb Hct MCV RDW Plt Count Lymph % (Auto) [place] % (Auto) Eos % (Auto) Baso % (Auto) Lymph # Seg Neuts % (Manual) Lymphocytes % (Manual) Monocytes % (Manual) Basophils % (Manual) Nucleated RBC % Seg Neutrophils # Man Lymphocytes # (Manual) Monocytes # (Manual) PT INR D-Dimer POC ABG pH 7.160 L POC ABG pCO2 46.8 H POC ABG pO2 Sodium Potassium Chloride Carbon Dioxide BUN Creatinine Glucose POC Glucose Lactic Acid 4.70 H* Uric Acid Calcium Total Bilirubin AST ALT Total Creatine Kinase 234 H CK-MB (CK-2) 9.1 H CK-MB (CK-2) Rel Index Troponin T 0.032 H C-Reactive Protein NT-Pro-B Natriuret Pep Total Protein Albumin LDL Cholesterol Direct Urine WBC (Auto) 08/21/18 08/21/18 08/21/18 10:43 10:43 10:45 WBC RBC Hgb Hct MCV RDW Plt Count Lymph % (Auto) [place] % (Auto) Eos % (Auto) Baso % (Auto) Lymph # Seg Neuts % (Manual) Lymphocytes % (Manual) Monocytes % (Manual) Basophils % (Manual) Nucleated RBC % Seg Neutrophils # Man Lymphocytes # (Manual) Monocytes # (Manual) PT INR D-Dimer POC ABG pH POC ABG pCO2 POC ABG pO2 Sodium Potassium Chloride Carbon Dioxide 17 L BUN 59 H Creatinine 4.2 H Glucose POC Glucose Lactic Acid 3.70 H* Uric Acid Calcium Total Bilirubin AST ALT Total Creatine Kinase 222 H CK-MB (CK-2) 9.2 H CK-MB (CK-2) Rel Index 4.1 H Troponin T 0.044 H D C-Reactive Protein NT-Pro-B Natriuret Pep Total Protein Albumin LDL Cholesterol Direct Urine WBC (Auto) 08/21/18 08/21/18 08/21/18 11:38 12:33 15:03 WBC RBC Hgb Hct MCV RDW Plt Count Lymph % (Auto) [place] % (Auto) Eos % (Auto) Baso % (Auto) Lymph # Seg Neuts % (Manual) Lymphocytes % (Manual) Monocytes % (Manual) Basophils % (Manual) Nucleated RBC % Seg Neutrophils # Man Lymphocytes # (Manual) Monocytes # (Manual) PT INR D-Dimer POC ABG pH 7.250 L POC ABG pCO2 POC ABG pO2 121 H Sodium Potassium Chloride Carbon Dioxide BUN Creatinine Glucose POC Glucose 129 H Lactic Acid Uric Acid Calcium Total Bilirubin AST ALT Total Creatine Kinase CK-MB (CK-2) CK-MB (CK-2) Rel Index Troponin T C-Reactive Protein NT-Pro-B Natriuret Pep Total Protein Albumin LDL Cholesterol Direct Urine WBC (Auto) 13.0 H 08/21/18 08/22/18 08/22/18 15:47 00:01 04:27 WBC RBC Hgb Hct MCV RDW Plt Count Lymph % (Auto) [place] % (Auto) Eos % (Auto) Baso % (Auto) Lymph # Seg Neuts % (Manual) Lymphocytes % (Manual) Monocytes % (Manual) Basophils % (Manual) Nucleated RBC % Seg Neutrophils # Man Lymphocytes # (Manual) Monocytes # (Manual) PT INR D-Dimer POC ABG pH 7.457 H POC ABG pCO2 POC ABG pO2 117 H Sodium Potassium Chloride Carbon Dioxide BUN Creatinine Glucose POC Glucose 211 H Lactic Acid 2.70 H* Uric Acid Calcium Total Bilirubin AST ALT Total Creatine Kinase CK-MB (CK-2) CK-MB (CK-2) Rel Index Troponin T C-Reactive Protein NT-Pro-B Natriuret Pep Total Protein Albumin LDL Cholesterol Direct Urine WBC (Auto) 08/22/18 08/22/18 08/22/18 05:46 06:10 06:10 WBC RBC 2.27 L Hgb 7.0 L Hct 21.2 L MCV RDW 16.8 H Plt Count 129 L Lymph % (Auto) [place] % (Auto) Eos % (Auto) Baso % (Auto) Lymph # Seg Neuts % (Manual) 95.0 H Lymphocytes % (Manual) 1.0 L Monocytes % (Manual) Basophils % (Manual) Nucleated RBC % 1.0 H Seg Neutrophils # Man 7.8 H Lymphocytes # (Manual) 0.1 L Monocytes # (Manual) PT INR D-Dimer POC ABG pH POC ABG pCO2 POC ABG pO2 Sodium Potassium Chloride Carbon Dioxide 20 L BUN 63 H Creatinine 3.9 H Glucose 205 H POC Glucose 223 H Lactic Acid Uric Acid Calcium Total Bilirubin AST ALT Total Creatine Kinase CK-MB (CK-2) CK-MB (CK-2) Rel Index Troponin T C-Reactive Protein NT-Pro-B Natriuret Pep Total Protein Albumin LDL Cholesterol Direct Urine WBC (Auto) 08/22/18 08/22/18 08/22/18 06:10 12:57 16:21 WBC RBC Hgb Hct MCV RDW Plt Count Lymph % (Auto) [place] % (Auto) Eos % (Auto) Baso % (Auto) Lymph # Seg Neuts % (Manual) Lymphocytes % (Manual) Monocytes % (Manual) Basophils % (Manual) Nucleated RBC % Seg Neutrophils # Man Lymphocytes # (Manual) Monocytes # (Manual) PT INR D-Dimer POC ABG pH 7.477 H POC ABG pCO2 POC ABG pO2 Sodium Potassium Chloride Carbon Dioxide BUN Creatinine Glucose POC Glucose 166 H Lactic Acid Uric Acid Calcium Total Bilirubin AST ALT Total Creatine Kinase CK-MB (CK-2) CK-MB (CK-2) Rel Index Troponin T C-Reactive Protein 23.60 H NT-Pro-B Natriuret Pep Total Protein Albumin LDL Cholesterol Direct Urine WBC (Auto) 08/22/18 08/22/18 08/23/18 17:41 23:42 04:38 WBC RBC Hgb Hct MCV RDW Plt Count Lymph % (Auto) [place] % (Auto) Eos % (Auto) Baso % (Auto) Lymph # Seg Neuts % (Manual) Lymphocytes % (Manual) Monocytes % (Manual) Basophils % (Manual) Nucleated RBC % Seg Neutrophils # Man Lymphocytes # (Manual) Monocytes # (Manual) PT INR D-Dimer POC ABG pH 7.249 L POC ABG pCO2 53.5 H POC ABG pO2 73 L Sodium Potassium Chloride Carbon Dioxide BUN Creatinine Glucose POC Glucose 131 H 168 H Lactic Acid Uric Acid Calcium Total Bilirubin AST ALT Total Creatine Kinase CK-MB (CK-2) CK-MB (CK-2) Rel Index Troponin T C-Reactive Protein NT-Pro-B Natriuret Pep Total Protein Albumin LDL Cholesterol Direct Urine WBC (Auto) 08/23/18 08/23/18 08/23/18 04:52 04:52 04:52 WBC RBC 2.39 L Hgb 7.5 L Hct 22.8 L MCV 95 H RDW 17.6 H Plt Count Lymph % (Auto) [place] % (Auto) Eos % (Auto) Baso % (Auto) Lymph # Seg Neuts % (Manual) Lymphocytes % (Manual) Monocytes % (Manual) Basophils % (Manual) Nucleated RBC % Seg Neutrophils # Man Lymphocytes # (Manual) Monocytes # (Manual) PT INR D-Dimer POC ABG pH POC ABG pCO2 POC ABG pO2 Sodium Potassium 5.6 H 5.6 H Chloride Carbon Dioxide 21 L BUN 71 H 72 H Creatinine 4.1 H 4.0 H Glucose 141 H 140 H POC Glucose Lactic Acid Uric Acid Calcium 8.3 L 8.2 L Total Bilirubin AST 247 H ALT 220 H Total Creatine Kinase CK-MB (CK-2) CK-MB (CK-2) Rel Index Troponin T C-Reactive Protein NT-Pro-B Natriuret Pep Total Protein Albumin 2.8 L LDL Cholesterol Direct Urine WBC (Auto) 08/23/18 08/23/18 08/23/18 05:50 08:38 12:21 WBC RBC Hgb Hct MCV RDW Plt Count Lymph % (Auto) [place] % (Auto) Eos % (Auto) Baso % (Auto) Lymph # Seg Neuts % (Manual) Lymphocytes % (Manual) Monocytes % (Manual) Basophils % (Manual) Nucleated RBC % Seg Neutrophils # Man Lymphocytes # (Manual) Monocytes # (Manual) PT INR D-Dimer POC ABG pH POC ABG pCO2 POC ABG pO2 Sodium Potassium Chloride Carbon Dioxide BUN Creatinine Glucose POC Glucose 160 H 177 H Lactic Acid Uric Acid Calcium Total Bilirubin AST ALT Total Creatine Kinase CK-MB (CK-2) CK-MB (CK-2) Rel Index Troponin T C-Reactive Protein NT-Pro-B Natriuret Pep 72222 H Total Protein Albumin LDL Cholesterol Direct Urine WBC (Auto) 08/23/18 08/23/18 08/23/18 12:36 14:24 18:05 WBC RBC Hgb Hct MCV RDW Plt Count Lymph % (Auto) [place] % (Auto) Eos % (Auto) Baso % (Auto) Lymph # Seg Neuts % (Manual) Lymphocytes % (Manual) Monocytes % (Manual) Basophils % (Manual) Nucleated RBC % Seg Neutrophils # Man Lymphocytes # (Manual) Monocytes # (Manual) PT INR D-Dimer POC ABG pH 7.337 L POC ABG pCO2 POC ABG pO2 145 H Sodium 136 L Potassium 5.2 H Chloride Carbon Dioxide BUN 76 H Creatinine 4.2 H Glucose 158 H POC Glucose 169 H Lactic Acid Uric Acid Calcium 8.1 L Total Bilirubin AST ALT Total Creatine Kinase CK-MB (CK-2) CK-MB (CK-2) Rel Index Troponin T C-Reactive Protein NT-Pro-B Natriuret Pep Total Protein Albumin LDL Cholesterol Direct Urine WBC (Auto) 08/23/18 08/23/18 08/24/18 22:43 23:42 05:16 WBC RBC Hgb Hct MCV RDW Plt Count Lymph % (Auto) [place] % (Auto) Eos % (Auto) Baso % (Auto) Lymph # Seg Neuts % (Manual) Lymphocytes % (Manual) Monocytes % (Manual) Basophils % (Manual) Nucleated RBC % Seg Neutrophils # Man Lymphocytes # (Manual) Monocytes # (Manual) PT INR D-Dimer POC ABG pH POC ABG pCO2 POC ABG pO2 Sodium 136 L Potassium 5.3 H 5.2 H Chloride 97.9 L Carbon Dioxide BUN 80 H 86 H Creatinine 4.0 H 4.3 H Glucose 164 H 202 H POC Glucose 183 H Lactic Acid Uric Acid Calcium 7.9 L Total Bilirubin AST ALT Total Creatine Kinase CK-MB (CK-2) CK-MB (CK-2) Rel Index Troponin T C-Reactive Protein NT-Pro-B Natriuret Pep Total Protein Albumin LDL Cholesterol Direct Urine WBC (Auto) 08/24/18 08/24/18 08/24/18 05:21 05:29 10:10 WBC RBC 2.47 L Hgb 7.5 L Hct 23.3 L MCV RDW 17.5 H Plt Count 118 L Lymph % (Auto) [place] % (Auto) Eos % (Auto) Baso % (Auto) Lymph # Seg Neuts % (Manual) 92.0 H Lymphocytes % (Manual) 2.0 L Monocytes % (Manual) Basophils % (Manual) Nucleated RBC % Seg Neutrophils # Man 8.8 H Lymphocytes # (Manual) 0.2 L Monocytes # (Manual) PT INR D-Dimer POC ABG pH 7.243 L POC ABG pCO2 56.8 H POC ABG pO2 Sodium Potassium Chloride Carbon Dioxide BUN Creatinine Glucose POC Glucose 209 H Lactic Acid Uric Acid Calcium Total Bilirubin AST ALT Total Creatine Kinase CK-MB (CK-2) CK-MB (CK-2) Rel Index Troponin T C-Reactive Protein NT-Pro-B Natriuret Pep Total Protein Albumin LDL Cholesterol Direct Urine WBC (Auto) 08/24/18 08/24/18 08/24/18 10:10 11:19 13:41 WBC RBC Hgb Hct MCV RDW Plt Count Lymph % (Auto) [place] % (Auto) Eos % (Auto) Baso % (Auto) Lymph # Seg Neuts % (Manual) Lymphocytes % (Manual) Monocytes % (Manual) Basophils % (Manual) Nucleated RBC % Seg Neutrophils # Man Lymphocytes # (Manual) Monocytes # (Manual) PT INR D-Dimer 1978.25 H POC ABG pH POC ABG pCO2 POC ABG pO2 Sodium Potassium Chloride Carbon Dioxide BUN Creatinine Glucose POC Glucose 212 H Lactic Acid Uric Acid Calcium Total Bilirubin AST ALT Total Creatine Kinase CK-MB (CK-2) CK-MB (CK-2) Rel Index Troponin T C-Reactive Protein NT-Pro-B Natriuret Pep 74851 H Total Protein Albumin LDL Cholesterol Direct Urine WBC (Auto) 08/24/18 08/24/18 08/24/18 13:41 14:27 17:23 WBC RBC Hgb Hct MCV RDW Plt Count Lymph % (Auto) [place] % (Auto) Eos % (Auto) Baso % (Auto) Lymph # Seg Neuts % (Manual) Lymphocytes % (Manual) Monocytes % (Manual) Basophils % (Manual) Nucleated RBC % Seg Neutrophils # Man Lymphocytes # (Manual) Monocytes # (Manual) PT INR D-Dimer POC ABG pH POC ABG pCO2 POC ABG pO2 Sodium 136 L Potassium 5.1 H Chloride 97.8 L Carbon Dioxide BUN 90 H Creatinine 4.1 H Glucose 157 H POC Glucose 155 H Lactic Acid Uric Acid Calcium 8.0 L Total Bilirubin AST ALT Total Creatine Kinase CK-MB (CK-2) CK-MB (CK-2) Rel Index Troponin T C-Reactive Protein 9.00 H NT-Pro-B Natriuret Pep Total Protein Albumin LDL Cholesterol Direct Urine WBC (Auto) 08/25/18 08/25/18 08/25/18 00:38 05:22 05:57 WBC RBC Hgb Hct MCV RDW Plt Count Lymph % (Auto) [place] % (Auto) Eos % (Auto) Baso % (Auto) Lymph # Seg Neuts % (Manual) Lymphocytes % (Manual) Monocytes % (Manual) Basophils % (Manual) Nucleated RBC % Seg Neutrophils # Man Lymphocytes # (Manual) Monocytes # (Manual) PT INR D-Dimer POC ABG pH 7.238 L POC ABG pCO2 58.2 H POC ABG pO2 Sodium Potassium 5.4 H Chloride Carbon Dioxide BUN 98 H Creatinine 4.3 H Glucose 217 H POC Glucose 176 H Lactic Acid Uric Acid Calcium 8.3 L Total Bilirubin AST ALT Total Creatine Kinase CK-MB (CK-2) CK-MB (CK-2) Rel Index Troponin T C-Reactive Protein NT-Pro-B Natriuret Pep 73650 H Total Protein Albumin LDL Cholesterol Direct Urine WBC (Auto) 08/25/18 08/25/18 08/25/18 06:56 08:59 11:38 WBC RBC Hgb Hct MCV RDW Plt Count Lymph % (Auto) [place] % (Auto) Eos % (Auto) Baso % (Auto) Lymph # Seg Neuts % (Manual) Lymphocytes % (Manual) Monocytes % (Manual) Basophils % (Manual) Nucleated RBC % Seg Neutrophils # Man Lymphocytes # (Manual) Monocytes # (Manual) PT INR D-Dimer POC ABG pH 7.348 L POC ABG pCO2 48.6 H POC ABG pO2 Sodium Potassium Chloride Carbon Dioxide BUN Creatinine Glucose POC Glucose 247 H 235 H Lactic Acid Uric Acid Calcium Total Bilirubin AST ALT Total Creatine Kinase CK-MB (CK-2) CK-MB (CK-2) Rel Index Troponin T C-Reactive Protein NT-Pro-B Natriuret Pep Total Protein Albumin LDL Cholesterol Direct Urine WBC (Auto) 08/25/18 08/25/18 08/25/18 12:29 16:43 16:43 WBC 14.7 H RBC 2.90 L Hgb 8.9 L Hct 27.4 L MCV 95 H RDW 17.3 H Plt Count 119 L Lymph % (Auto) [place] % (Auto) Eos % (Auto) Baso % (Auto) Lymph # Seg Neuts % (Manual) 94.0 H Lymphocytes % (Manual) 2.0 L Monocytes % (Manual) Basophils % (Manual) Nucleated RBC % Seg Neutrophils # Man 13.8 H Lymphocytes # (Manual) 0.3 L Monocytes # (Manual) PT 15.6 H INR 1.27 H D-Dimer POC ABG pH POC ABG pCO2 POC ABG pO2 Sodium Potassium Chloride Carbon Dioxide BUN Creatinine Glucose POC Glucose 237 H Lactic Acid Uric Acid Calcium Total Bilirubin AST ALT Total Creatine Kinase CK-MB (CK-2) CK-MB (CK-2) Rel Index Troponin T C-Reactive Protein NT-Pro-B Natriuret Pep Total Protein Albumin LDL Cholesterol Direct Urine WBC (Auto) 08/25/18 08/26/18 08/26/18 17:22 00:16 04:56 WBC RBC Hgb Hct MCV RDW Plt Count Lymph % (Auto) [place] % (Auto) Eos % (Auto) Baso % (Auto) Lymph # Seg Neuts % (Manual) Lymphocytes % (Manual) Monocytes % (Manual) Basophils % (Manual) Nucleated RBC % Seg Neutrophils # Man Lymphocytes # (Manual) Monocytes # (Manual) PT INR D-Dimer POC ABG pH POC ABG pCO2 45.2 H POC ABG pO2 Sodium Potassium Chloride Carbon Dioxide BUN Creatinine Glucose POC Glucose 200 H 180 H Lactic Acid Uric Acid Calcium Total Bilirubin AST ALT Total Creatine Kinase CK-MB (CK-2) CK-MB (CK-2) Rel Index Troponin T C-Reactive Protein NT-Pro-B Natriuret Pep Total Protein Albumin LDL Cholesterol Direct Urine WBC (Auto) 08/26/18 08/26/18 08/26/18 05:53 06:20 08:48 WBC RBC Hgb Hct MCV RDW Plt Count Lymph % (Auto) [place] % (Auto) Eos % (Auto) Baso % (Auto) Lymph # Seg Neuts % (Manual) Lymphocytes % (Manual) Monocytes % (Manual) Basophils % (Manual) Nucleated RBC % Seg Neutrophils # Man Lymphocytes # (Manual) Monocytes # (Manual) PT INR D-Dimer POC ABG pH POC ABG pCO2 POC ABG pO2 Sodium Potassium Chloride Carbon Dioxide BUN 106 H Creatinine 3.9 H Glucose 137 H POC Glucose 131 H 126 H Lactic Acid Uric Acid Calcium 8.1 L Total Bilirubin AST ALT Total Creatine Kinase CK-MB (CK-2) CK-MB (CK-2) Rel Index Troponin T C-Reactive Protein NT-Pro-B Natriuret Pep > 92077 H Total Protein Albumin LDL Cholesterol Direct Urine WBC (Auto) 08/26/18 08/26/18 08/26/18 11:39 17:33 18:02 WBC RBC Hgb Hct MCV RDW Plt Count Lymph % (Auto) [place] % (Auto) Eos % (Auto) Baso % (Auto) Lymph # Seg Neuts % (Manual) Lymphocytes % (Manual) Monocytes % (Manual) Basophils % (Manual) Nucleated RBC % Seg Neutrophils # Man Lymphocytes # (Manual) Monocytes # (Manual) PT INR D-Dimer POC ABG pH POC ABG pCO2 POC ABG pO2 58 L Sodium Potassium Chloride Carbon Dioxide BUN Creatinine Glucose POC Glucose 156 H 173 H Lactic Acid Uric Acid Calcium Total Bilirubin AST ALT Total Creatine Kinase CK-MB (CK-2) CK-MB (CK-2) Rel Index Troponin T C-Reactive Protein NT-Pro-B Natriuret Pep Total Protein Albumin LDL Cholesterol Direct Urine WBC (Auto) 08/26/18 08/27/18 08/27/18 23:12 04:59 11:51 WBC RBC Hgb Hct MCV RDW Plt Count Lymph % (Auto) [place] % (Auto) Eos % (Auto) Baso % (Auto) Lymph # Seg Neuts % (Manual) Lymphocytes % (Manual) Monocytes % (Manual) Basophils % (Manual) Nucleated RBC % Seg Neutrophils # Man Lymphocytes # (Manual) Monocytes # (Manual) PT INR D-Dimer POC ABG pH 7.563 H POC ABG pCO2 < 30 L POC ABG pO2 69 L Sodium Potassium Chloride Carbon Dioxide BUN Creatinine Glucose POC Glucose 130 H 107 H Lactic Acid Uric Acid Calcium Total Bilirubin AST ALT Total Creatine Kinase CK-MB (CK-2) CK-MB (CK-2) Rel Index Troponin T C-Reactive Protein NT-Pro-B Natriuret Pep Total Protein Albumin LDL Cholesterol Direct Urine WBC (Auto) 08/27/18 08/27/18 08/27/18 11:58 11:58 11:58 WBC RBC 2.66 L Hgb 8.1 L Hct 24.7 L MCV RDW 16.7 H Plt Count Lymph % (Auto) [place] % (Auto) Eos % (Auto) Baso % (Auto) Lymph # Seg Neuts % (Manual) Lymphocytes % (Manual) Monocytes % (Manual) Basophils % (Manual) Nucleated RBC % Seg Neutrophils # Man Lymphocytes # (Manual) Monocytes # (Manual) PT INR D-Dimer POC ABG pH POC ABG pCO2 POC ABG pO2 Sodium Potassium Chloride Carbon Dioxide BUN 71 H Creatinine 2.9 H Glucose POC Glucose Lactic Acid Uric Acid Calcium 7.6 L Total Bilirubin AST ALT Total Creatine Kinase CK-MB (CK-2) CK-MB (CK-2) Rel Index Troponin T C-Reactive Protein NT-Pro-B Natriuret Pep > 36973 H Total Protein 6.1 L Albumin 2.4 L LDL Cholesterol Direct Urine WBC (Auto) 08/28/18 08/28/18 08/28/18 04:38 04:49 04:49 WBC RBC 2.65 L Hgb 8.3 L Hct 25.3 L MCV 96 H RDW 17.3 H Plt Count 83 L Lymph % (Auto) [place] % (Auto) Eos % (Auto) Baso % (Auto) Lymph # Seg Neuts % (Manual) Lymphocytes % (Manual) Monocytes % (Manual) Basophils % (Manual) Nucleated RBC % Seg Neutrophils # Man Lymphocytes # (Manual) Monocytes # (Manual) PT INR D-Dimer POC ABG pH POC ABG pCO2 POC ABG pO2 112 H Sodium Potassium Chloride Carbon Dioxide BUN Creatinine Glucose POC Glucose Lactic Acid Uric Acid Calcium Total Bilirubin AST ALT Total Creatine Kinase CK-MB (CK-2) CK-MB (CK-2) Rel Index Troponin T C-Reactive Protein NT-Pro-B Natriuret Pep > 03324 H Total Protein Albumin LDL Cholesterol Direct Urine WBC (Auto) 08/28/18 08/28/18 08/29/18 04:49 14:24 00:11 WBC RBC Hgb Hct MCV RDW Plt Count Lymph % (Auto) [place] % (Auto) Eos % (Auto) Baso % (Auto) Lymph # Seg Neuts % (Manual) Lymphocytes % (Manual) Monocytes % (Manual) Basophils % (Manual) Nucleated RBC % Seg Neutrophils # Man Lymphocytes # (Manual) Monocytes # (Manual) PT INR D-Dimer POC ABG pH 7.278 L POC ABG pCO2 57.9 H POC ABG pO2 79 L Sodium Potassium Chloride Carbon Dioxide BUN 69 H Creatinine 2.4 H Glucose POC Glucose 171 H Lactic Acid Uric Acid Calcium 7.7 L Total Bilirubin AST ALT Total Creatine Kinase CK-MB (CK-2) CK-MB (CK-2) Rel Index Troponin T C-Reactive Protein NT-Pro-B Natriuret Pep Total Protein 5.4 L Albumin 2.2 L LDL Cholesterol Direct Urine WBC (Auto) 08/29/18 08/29/18 08/29/18 04:39 05:35 05:35 WBC 13.6 H RBC 3.09 L Hgb 9.4 L Hct 29.5 L MCV 96 H RDW 17.9 H Plt Count 127 L Lymph % (Auto) [place] % (Auto) Eos % (Auto) Baso % (Auto) Lymph # Seg Neuts % (Manual) Lymphocytes % (Manual) Monocytes % (Manual) Basophils % (Manual) Nucleated RBC % Seg Neutrophils # Man Lymphocytes # (Manual) Monocytes # (Manual) PT INR D-Dimer POC ABG pH 7.312 L POC ABG pCO2 57.6 H POC ABG pO2 79 L Sodium Potassium Chloride Carbon Dioxide BUN 42 H Creatinine 1.9 H Glucose 107 H POC Glucose Lactic Acid Uric Acid Calcium Total Bilirubin AST ALT Total Creatine Kinase CK-MB (CK-2) CK-MB (CK-2) Rel Index Troponin T C-Reactive Protein NT-Pro-B Natriuret Pep Total Protein Albumin LDL Cholesterol Direct Urine WBC (Auto) 08/29/18 08/29/18 08/29/18 05:48 11:37 15:32 WBC RBC Hgb Hct MCV RDW Plt Count Lymph % (Auto) [place] % (Auto) Eos % (Auto) Baso % (Auto) Lymph # Seg Neuts % (Manual) Lymphocytes % (Manual) Monocytes % (Manual) Basophils % (Manual) Nucleated RBC % Seg Neutrophils # Man Lymphocytes # (Manual) Monocytes # (Manual) PT INR D-Dimer POC ABG pH POC ABG pCO2 47.0 H POC ABG pO2 78 L Sodium Potassium Chloride Carbon Dioxide BUN Creatinine Glucose POC Glucose 114 H 116 H Lactic Acid Uric Acid Calcium Total Bilirubin AST ALT Total Creatine Kinase CK-MB (CK-2) CK-MB (CK-2) Rel Index Troponin T C-Reactive Protein NT-Pro-B Natriuret Pep Total Protein Albumin LDL Cholesterol Direct Urine WBC (Auto) 08/29/18 08/30/18 08/30/18 17:28 00:17 04:41 WBC RBC Hgb Hct MCV RDW Plt Count Lymph % (Auto) [place] % (Auto) Eos % (Auto) Baso % (Auto) Lymph # Seg Neuts % (Manual) Lymphocytes % (Manual) Monocytes % (Manual) Basophils % (Manual) Nucleated RBC % Seg Neutrophils # Man Lymphocytes # (Manual) Monocytes # (Manual) PT INR D-Dimer POC ABG pH POC ABG pCO2 48.1 H POC ABG pO2 Sodium Potassium Chloride Carbon Dioxide BUN Creatinine Glucose POC Glucose 174 H 132 H Lactic Acid Uric Acid Calcium Total Bilirubin AST ALT Total Creatine Kinase CK-MB (CK-2) CK-MB (CK-2) Rel Index Troponin T C-Reactive Protein NT-Pro-B Natriuret Pep Total Protein Albumin LDL Cholesterol Direct Urine WBC (Auto) 08/30/18 08/30/18 08/30/18 05:17 05:34 06:10 WBC RBC 2.68 L Hgb 8.2 L Hct 25.6 L MCV 96 H RDW 17.2 H Plt Count 118 L Lymph % (Auto) [place] % (Auto) Eos % (Auto) Baso % (Auto) Lymph # Seg Neuts % (Manual) Lymphocytes % (Manual) Monocytes % (Manual) Basophils % (Manual) Nucleated RBC % Seg Neutrophils # Man Lymphocytes # (Manual) Monocytes # (Manual) PT INR D-Dimer POC ABG pH POC ABG pCO2 POC ABG pO2 Sodium Potassium Chloride Carbon Dioxide BUN 54 H Creatinine 2.4 H Glucose 120 H POC Glucose 141 H Lactic Acid Uric Acid Calcium Total Bilirubin AST ALT Total Creatine Kinase CK-MB (CK-2) CK-MB (CK-2) Rel Index Troponin T C-Reactive Protein NT-Pro-B Natriuret Pep Total Protein Albumin LDL Cholesterol Direct Urine WBC (Auto) 08/30/18 08/30/18 08/30/18 13:11 18:11 23:55 WBC RBC Hgb Hct MCV RDW Plt Count Lymph % (Auto) [place] % (Auto) Eos % (Auto) Baso % (Auto) Lymph # Seg Neuts % (Manual) Lymphocytes % (Manual) Monocytes % (Manual) Basophils % (Manual) Nucleated RBC % Seg Neutrophils # Man Lymphocytes # (Manual) Monocytes # (Manual) PT INR D-Dimer POC ABG pH POC ABG pCO2 POC ABG pO2 Sodium Potassium Chloride Carbon Dioxide BUN Creatinine Glucose POC Glucose 167 H 144 H 144 H Lactic Acid Uric Acid Calcium Total Bilirubin AST ALT Total Creatine Kinase CK-MB (CK-2) CK-MB (CK-2) Rel Index Troponin T C-Reactive Protein NT-Pro-B Natriuret Pep Total Protein Albumin LDL Cholesterol Direct Urine WBC (Auto) 08/31/18 08/31/18 08/31/18 05:07 05:07 05:44 WBC RBC 2.62 L Hgb 8.1 L Hct 25.0 L MCV 96 H RDW 17.5 H Plt Count 128 L Lymph % (Auto) [place] % (Auto) Eos % (Auto) Baso % (Auto) Lymph # Seg Neuts % (Manual) Lymphocytes % (Manual) Monocytes % (Manual) Basophils % (Manual) Nucleated RBC % Seg Neutrophils # Man Lymphocytes # (Manual) Monocytes # (Manual) PT INR D-Dimer POC ABG pH POC ABG pCO2 POC ABG pO2 Sodium Potassium Chloride Carbon Dioxide BUN 58 H Creatinine 2.3 H Glucose 103 H POC Glucose 109 H Lactic Acid Uric Acid Calcium Total Bilirubin AST ALT Total Creatine Kinase CK-MB (CK-2) CK-MB (CK-2) Rel Index Troponin T C-Reactive Protein NT-Pro-B Natriuret Pep Total Protein Albumin LDL Cholesterol Direct Urine WBC (Auto) 08/31/18 08/31/18 08/31/18 11:26 13:54 19:05 WBC RBC Hgb Hct MCV RDW Plt Count Lymph % (Auto) [place] % (Auto) Eos % (Auto) Baso % (Auto) Lymph # Seg Neuts % (Manual) Lymphocytes % (Manual) Monocytes % (Manual) Basophils % (Manual) Nucleated RBC % Seg Neutrophils # Man Lymphocytes # (Manual) Monocytes # (Manual) PT INR D-Dimer POC ABG pH POC ABG pCO2 POC ABG pO2 Sodium Potassium Chloride Carbon Dioxide BUN Creatinine Glucose POC Glucose 117 H 186 H Lactic Acid Uric Acid 9.6 H Calcium Total Bilirubin AST ALT Total Creatine Kinase CK-MB (CK-2) CK-MB (CK-2) Rel Index Troponin T C-Reactive Protein NT-Pro-B Natriuret Pep Total Protein Albumin LDL Cholesterol Direct Urine WBC (Auto) 08/31/18 09/01/18 09/01/18 23:50 06:27 09:21 WBC RBC 2.74 L Hgb 8.6 L Hct 25.8 L MCV RDW 17.3 H Plt Count Lymph % (Auto) [place] % (Auto) Eos % (Auto) Baso % (Auto) Lymph # Seg Neuts % (Manual) Lymphocytes % (Manual) Monocytes % (Manual) Basophils % (Manual) Nucleated RBC % Seg Neutrophils # Man Lymphocytes # (Manual) Monocytes # (Manual) PT INR D-Dimer POC ABG pH POC ABG pCO2 POC ABG pO2 Sodium Potassium Chloride Carbon Dioxide BUN Creatinine Glucose POC Glucose 141 H 62 L Lactic Acid Uric Acid Calcium Total Bilirubin AST ALT Total Creatine Kinase CK-MB (CK-2) CK-MB (CK-2) Rel Index Troponin T C-Reactive Protein NT-Pro-B Natriuret Pep Total Protein Albumin LDL Cholesterol Direct Urine WBC (Auto) 09/01/18 09/01/18 09/01/18 09:21 12:27 17:51 WBC RBC Hgb Hct MCV RDW Plt Count Lymph % (Auto) [place] % (Auto) Eos % (Auto) Baso % (Auto) Lymph # Seg Neuts % (Manual) Lymphocytes % (Manual) Monocytes % (Manual) Basophils % (Manual) Nucleated RBC % Seg Neutrophils # Man Lymphocytes # (Manual) Monocytes # (Manual) PT INR D-Dimer POC ABG pH POC ABG pCO2 POC ABG pO2 Sodium Potassium 3.0 L D Chloride 109.8 H Carbon Dioxide BUN 45 H Creatinine 1.7 H Glucose POC Glucose 106 H 108 H Lactic Acid Uric Acid Calcium 7.1 L D Total Bilirubin AST ALT Total Creatine Kinase CK-MB (CK-2) CK-MB (CK-2) Rel Index Troponin T C-Reactive Protein NT-Pro-B Natriuret Pep Total Protein Albumin LDL Cholesterol Direct Urine WBC (Auto) 09/02/18 09/02/18 09/02/18 05:16 05:16 12:01 WBC RBC 2.60 L Hgb 8.1 L Hct 24.8 L MCV 95 H RDW 17.1 H Plt Count Lymph % (Auto) [place] % (Auto) Eos % (Auto) Baso % (Auto) Lymph # Seg Neuts % (Manual) Lymphocytes % (Manual) Monocytes % (Manual) Basophils % (Manual) Nucleated RBC % Seg Neutrophils # Man Lymphocytes # (Manual) Monocytes # (Manual) PT INR D-Dimer POC ABG pH POC ABG pCO2 POC ABG pO2 Sodium Potassium Chloride Carbon Dioxide BUN 49 H Creatinine 1.8 H Glucose 107 H POC Glucose 124 H Lactic Acid Uric Acid Calcium 8.1 L Total Bilirubin AST ALT Total Creatine Kinase CK-MB (CK-2) CK-MB (CK-2) Rel Index Troponin T C-Reactive Protein NT-Pro-B Natriuret Pep Total Protein Albumin LDL Cholesterol Direct Urine WBC (Auto) 09/02/18 09/02/18 09/03/18 18:38 23:12 08:22 WBC RBC Hgb Hct MCV RDW Plt Count Lymph % (Auto) [place] % (Auto) Eos % (Auto) Baso % (Auto) Lymph # Seg Neuts % (Manual) Lymphocytes % (Manual) Monocytes % (Manual) Basophils % (Manual) Nucleated RBC % Seg Neutrophils # Man Lymphocytes # (Manual) Monocytes # (Manual) PT INR D-Dimer POC ABG pH POC ABG pCO2 POC ABG pO2 Sodium Potassium Chloride Carbon Dioxide BUN Creatinine Glucose POC Glucose 164 H 128 H 115 H Lactic Acid Uric Acid Calcium Total Bilirubin AST ALT Total Creatine Kinase CK-MB (CK-2) CK-MB (CK-2) Rel Index Troponin T C-Reactive Protein NT-Pro-B Natriuret Pep Total Protein Albumin LDL Cholesterol Direct Urine WBC (Auto) 09/03/18 09/03/18 09/03/18 11:48 16:37 20:48 WBC RBC Hgb Hct MCV RDW Plt Count Lymph % (Auto) [place] % (Auto) Eos % (Auto) Baso % (Auto) Lymph # Seg Neuts % (Manual) Lymphocytes % (Manual) Monocytes % (Manual) Basophils % (Manual) Nucleated RBC % Seg Neutrophils # Man Lymphocytes # (Manual) Monocytes # (Manual) PT INR D-Dimer POC ABG pH POC ABG pCO2 POC ABG pO2 Sodium Potassium Chloride Carbon Dioxide BUN Creatinine Glucose POC Glucose 203 H 146 H 150 H Lactic Acid Uric Acid Calcium Total Bilirubin AST ALT Total Creatine Kinase CK-MB (CK-2) CK-MB (CK-2) Rel Index Troponin T C-Reactive Protein NT-Pro-B Natriuret Pep Total Protein Albumin LDL Cholesterol Direct Urine WBC (Auto) 09/04/18 09/04/18 09/04/18 08:29 12:08 13:32 WBC RBC Hgb Hct MCV RDW Plt Count Lymph % (Auto) [place] % (Auto) Eos % (Auto) Baso % (Auto) Lymph # Seg Neuts % (Manual) Lymphocytes % (Manual) Monocytes % (Manual) Basophils % (Manual) Nucleated RBC % Seg Neutrophils # Man Lymphocytes # (Manual) Monocytes # (Manual) PT INR D-Dimer POC ABG pH POC ABG pCO2 POC ABG pO2 Sodium 136 L Potassium Chloride Carbon Dioxide BUN 42 H Creatinine 1.6 H Glucose 180 H POC Glucose 129 H 149 H Lactic Acid Uric Acid Calcium Total Bilirubin AST ALT Total Creatine Kinase CK-MB (CK-2) CK-MB (CK-2) Rel Index Troponin T C-Reactive Protein NT-Pro-B Natriuret Pep Total Protein Albumin LDL Cholesterol Direct Urine WBC (Auto) 09/04/18 09/05/18 09/05/18 16:33 07:03 07:03 WBC RBC 2.92 L Hgb 9.1 L Hct 27.4 L MCV RDW 17.3 H Plt Count Lymph % (Auto) [place] % (Auto) Eos % (Auto) Baso % (Auto) Lymph # Seg Neuts % (Manual) 81.0 H Lymphocytes % (Manual) 7.0 L Monocytes % (Manual) 8.0 H Basophils % (Manual) Nucleated RBC % Seg Neutrophils # Man Lymphocytes # (Manual) 0.5 L Monocytes # (Manual) PT INR D-Dimer POC ABG pH POC ABG pCO2 POC ABG pO2 Sodium Potassium Chloride Carbon Dioxide BUN 40 H Creatinine Glucose 153 H POC Glucose 165 H Lactic Acid Uric Acid Calcium Total Bilirubin AST ALT Total Creatine Kinase CK-MB (CK-2) CK-MB (CK-2) Rel Index Troponin T C-Reactive Protein NT-Pro-B Natriuret Pep Total Protein Albumin LDL Cholesterol Direct Urine WBC (Auto) 09/05/18 09/05/18 09/05/18 08:00 11:51 21:20 WBC RBC Hgb Hct MCV RDW Plt Count Lymph % (Auto) [place] % (Auto) Eos % (Auto) Baso % (Auto) Lymph # Seg Neuts % (Manual) Lymphocytes % (Manual) Monocytes % (Manual) Basophils % (Manual) Nucleated RBC % Seg Neutrophils # Man Lymphocytes # (Manual) Monocytes # (Manual) PT INR D-Dimer POC ABG pH POC ABG pCO2 POC ABG pO2 Sodium Potassium Chloride Carbon Dioxide BUN Creatinine Glucose POC Glucose 146 H 207 H 114 H Lactic Acid Uric Acid Calcium Total Bilirubin AST ALT Total Creatine Kinase CK-MB (CK-2) CK-MB (CK-2) Rel Index Troponin T C-Reactive Protein NT-Pro-B Natriuret Pep Total Protein Albumin LDL Cholesterol Direct Urine WBC (Auto) 09/06/18 09/06/18 09/06/18 06:42 06:42 11:38 WBC RBC 2.90 L Hgb 9.0 L Hct 27.0 L MCV RDW 17.4 H Plt Count 130 L Lymph % (Auto) [place] % (Auto) Eos % (Auto) Baso % (Auto) Lymph # Seg Neuts % (Manual) 79.0 H Lymphocytes % (Manual) 6.0 L Monocytes % (Manual) 12.0 H Basophils % (Manual) 2.0 H Nucleated RBC % Seg Neutrophils # Man Lymphocytes # (Manual) 0.3 L Monocytes # (Manual) PT INR D-Dimer POC ABG pH POC ABG pCO2 POC ABG pO2 Sodium 136 L Potassium Chloride Carbon Dioxide BUN 39 H Creatinine Glucose 106 H POC Glucose 265 H Lactic Acid Uric Acid Calcium Total Bilirubin AST ALT Total Creatine Kinase CK-MB (CK-2) CK-MB (CK-2) Rel Index Troponin T C-Reactive Protein NT-Pro-B Natriuret Pep Total Protein Albumin LDL Cholesterol Direct Urine WBC (Auto) 09/06/18 09/06/18 09/07/18 16:37 20:55 05:12 WBC RBC 2.80 L Hgb 8.7 L Hct 26.5 L MCV 95 H RDW 17.7 H Plt Count Lymph % (Auto) 13.3 L [place] % (Auto) 14.2 H Eos % (Auto) Baso % (Auto) 1.9 H Lymph # 0.7 L Seg Neuts % (Manual) Lymphocytes % (Manual) Monocytes % (Manual) Basophils % (Manual) Nucleated RBC % Seg Neutrophils # Man Lymphocytes # (Manual) Monocytes # (Manual) PT INR D-Dimer POC ABG pH POC ABG pCO2 POC ABG pO2 Sodium Potassium Chloride Carbon Dioxide BUN Creatinine Glucose POC Glucose 131 H 135 H Lactic Acid Uric Acid Calcium Total Bilirubin AST ALT Total Creatine Kinase CK-MB (CK-2) CK-MB (CK-2) Rel Index Troponin T C-Reactive Protein NT-Pro-B Natriuret Pep Total Protein Albumin LDL Cholesterol Direct Urine WBC (Auto) 09/07/18 09/07/18 09/07/18 05:12 11:28 15:32 WBC RBC Hgb Hct MCV RDW Plt Count Lymph % (Auto) [place] % (Auto) Eos % (Auto) Baso % (Auto) Lymph # Seg Neuts % (Manual) Lymphocytes % (Manual) Monocytes % (Manual) Basophils % (Manual) Nucleated RBC % Seg Neutrophils # Man Lymphocytes # (Manual) Monocytes # (Manual) PT INR D-Dimer POC ABG pH POC ABG pCO2 POC ABG pO2 Sodium Potassium Chloride Carbon Dioxide BUN 36 H Creatinine Glucose POC Glucose 176 H 131 H Lactic Acid Uric Acid Calcium Total Bilirubin AST ALT Total Creatine Kinase CK-MB (CK-2) CK-MB (CK-2) Rel Index Troponin T C-Reactive Protein NT-Pro-B Natriuret Pep Total Protein Albumin LDL Cholesterol Direct Urine WBC (Auto) 09/07/18 09/08/18 09/08/18 21:50 05:23 05:23 WBC RBC 2.72 L Hgb 8.5 L Hct 26.9 L MCV 99 H RDW 18.0 H Plt Count 136 L Lymph % (Auto) 13.1 L [place] % (Auto) 15.7 H Eos % (Auto) Baso % (Auto) 1.9 H Lymph # 0.7 L Seg Neuts % (Manual) Lymphocytes % (Manual) Monocytes % (Manual) Basophils % (Manual) Nucleated RBC % Seg Neutrophils # Man Lymphocytes # (Manual) Monocytes # (Manual) PT INR D-Dimer POC ABG pH POC ABG pCO2 POC ABG pO2 Sodium 134 L Potassium 5.2 H Chloride Carbon Dioxide BUN 36 H Creatinine Glucose POC Glucose 160 H Lactic Acid Uric Acid Calcium Total Bilirubin AST ALT Total Creatine Kinase CK-MB (CK-2) CK-MB (CK-2) Rel Index Troponin T C-Reactive Protein NT-Pro-B Natriuret Pep Total Protein Albumin LDL Cholesterol Direct Urine WBC (Auto) 09/08/18 09/08/18 09/09/18 12:33 16:57 05:52 WBC RBC 2.64 L Hgb 8.1 L Hct 25.2 L MCV 95 H RDW 17.8 H Plt Count Lymph % (Auto) [place] % (Auto) 14.3 H Eos % (Auto) Baso % (Auto) 1.9 H Lymph # 0.6 L Seg Neuts % (Manual) Lymphocytes % (Manual) Monocytes % (Manual) Basophils % (Manual) Nucleated RBC % Seg Neutrophils # Man Lymphocytes # (Manual) Monocytes # (Manual) PT INR D-Dimer POC ABG pH POC ABG pCO2 POC ABG pO2 Sodium Potassium Chloride Carbon Dioxide BUN Creatinine Glucose POC Glucose 198 H 195 H Lactic Acid Uric Acid Calcium Total Bilirubin AST ALT Total Creatine Kinase CK-MB (CK-2) CK-MB (CK-2) Rel Index Troponin T C-Reactive Protein NT-Pro-B Natriuret Pep Total Protein Albumin LDL Cholesterol Direct Urine WBC (Auto) 09/09/18 09/09/18 09/09/18 05:52 11:50 16:28 WBC RBC Hgb Hct MCV RDW Plt Count Lymph % (Auto) [place] % (Auto) Eos % (Auto) Baso % (Auto) Lymph # Seg Neuts % (Manual) Lymphocytes % (Manual) Monocytes % (Manual) Basophils % (Manual) Nucleated RBC % Seg Neutrophils # Man Lymphocytes # (Manual) Monocytes # (Manual) PT INR D-Dimer POC ABG pH POC ABG pCO2 POC ABG pO2 Sodium 136 L Potassium Chloride Carbon Dioxide BUN 34 H Creatinine Glucose POC Glucose 122 H 170 H Lactic Acid Uric Acid Calcium 8.1 L Total Bilirubin AST ALT Total Creatine Kinase CK-MB (CK-2) CK-MB (CK-2) Rel Index Troponin T C-Reactive Protein NT-Pro-B Natriuret Pep Total Protein Albumin LDL Cholesterol Direct Urine WBC (Auto) 09/09/18 09/10/18 09/10/18 22:02 05:09 05:09 WBC 3.9 L RBC 2.63 L Hgb 8.2 L Hct 25.0 L MCV 95 H RDW 17.4 H Plt Count Lymph % (Auto) [place] % (Auto) 15.9 H Eos % (Auto) Baso % (Auto) 2.0 H Lymph # 0.6 L Seg Neuts % (Manual) Lymphocytes % (Manual) Monocytes % (Manual) Basophils % (Manual) Nucleated RBC % Seg Neutrophils # Man Lymphocytes # (Manual) Monocytes # (Manual) PT INR D-Dimer POC ABG pH POC ABG pCO2 POC ABG pO2 Sodium Potassium 5.1 H Chloride Carbon Dioxide BUN 31 H Creatinine Glucose 106 H POC Glucose 144 H Lactic Acid Uric Acid Calcium 8.3 L Total Bilirubin AST ALT Total Creatine Kinase CK-MB (CK-2) CK-MB (CK-2) Rel Index Troponin T C-Reactive Protein NT-Pro-B Natriuret Pep Total Protein Albumin LDL Cholesterol Direct Urine WBC (Auto) 09/10/18 09/10/18 09/10/18 13:09 17:07 21:13 WBC RBC Hgb Hct MCV RDW Plt Count Lymph % (Auto) [place] % (Auto) Eos % (Auto) Baso % (Auto) Lymph # Seg Neuts % (Manual) Lymphocytes % (Manual) Monocytes % (Manual) Basophils % (Manual) Nucleated RBC % Seg Neutrophils # Man Lymphocytes # (Manual) Monocytes # (Manual) PT INR D-Dimer POC ABG pH POC ABG pCO2 POC ABG pO2 Sodium Potassium Chloride Carbon Dioxide BUN Creatinine Glucose POC Glucose 134 H 117 H 154 H Lactic Acid Uric Acid Calcium Total Bilirubin AST ALT Total Creatine Kinase CK-MB (CK-2) CK-MB (CK-2) Rel Index Troponin T C-Reactive Protein NT-Pro-B Natriuret Pep Total Protein Albumin LDL Cholesterol Direct Urine WBC (Auto) 09/11/18 09/11/18 09/11/18 06:00 06:00 09:11 WBC 3.5 L RBC 2.41 L Hgb 7.4 L Hct 23.0 L MCV 96 H RDW 18.1 H Plt Count Lymph % (Auto) [place] % (Auto) 15.3 H Eos % (Auto) 5.2 H Baso % (Auto) 2.6 H Lymph # 0.6 L Seg Neuts % (Manual) Lymphocytes % (Manual) Monocytes % (Manual) Basophils % (Manual) Nucleated RBC % Seg Neutrophils # Man Lymphocytes # (Manual) Monocytes # (Manual) PT INR D-Dimer POC ABG pH POC ABG pCO2 POC ABG pO2 Sodium Potassium 5.4 H Chloride Carbon Dioxide BUN 30 H Creatinine Glucose 108 H POC Glucose 124 H Lactic Acid Uric Acid Calcium Total Bilirubin AST ALT Total Creatine Kinase CK-MB (CK-2) CK-MB (CK-2) Rel Index Troponin T C-Reactive Protein NT-Pro-B Natriuret Pep Total Protein Albumin LDL Cholesterol Direct Urine WBC (Auto) 09/11/18 09/11/18 09/11/18 12:06 16:18 21:26 WBC RBC Hgb Hct MCV RDW Plt Count Lymph % (Auto) [place] % (Auto) Eos % (Auto) Baso % (Auto) Lymph # Seg Neuts % (Manual) Lymphocytes % (Manual) Monocytes % (Manual) Basophils % (Manual) Nucleated RBC % Seg Neutrophils # Man Lymphocytes # (Manual) Monocytes # (Manual) PT INR D-Dimer POC ABG pH POC ABG pCO2 POC ABG pO2 Sodium Potassium Chloride Carbon Dioxide BUN Creatinine Glucose POC Glucose 144 H 138 H 163 H Lactic Acid Uric Acid Calcium Total Bilirubin AST ALT Total Creatine Kinase CK-MB (CK-2) CK-MB (CK-2) Rel Index Troponin T C-Reactive Protein NT-Pro-B Natriuret Pep Total Protein Albumin LDL Cholesterol Direct Urine WBC (Auto) 09/12/18 09/12/18 09/12/18 09:17 09:17 11:16 WBC 4.0 L RBC 2.62 L Hgb 8.1 L Hct 25.0 L MCV 96 H RDW 17.8 H Plt Count Lymph % (Auto) [place] % (Auto) Eos % (Auto) Baso % (Auto) Lymph # Seg Neuts % (Manual) Lymphocytes % (Manual) Monocytes % (Manual) Basophils % (Manual) Nucleated RBC % Seg Neutrophils # Man Lymphocytes # (Manual) Monocytes # (Manual) PT INR D-Dimer POC ABG pH POC ABG pCO2 POC ABG pO2 Sodium Potassium 5.3 H Chloride Carbon Dioxide BUN 27 H Creatinine Glucose 113 H POC Glucose 147 H Lactic Acid Uric Acid Calcium Total Bilirubin AST ALT Total Creatine Kinase CK-MB (CK-2) CK-MB (CK-2) Rel Index Troponin T C-Reactive Protein NT-Pro-B Natriuret Pep Total Protein Albumin LDL Cholesterol Direct Urine WBC (Auto) 09/12/18 09/12/18 09/13/18 15:31 21:23 06:48 WBC 3.7 L RBC 2.49 L Hgb 7.7 L Hct 23.7 L MCV 95 H RDW 17.4 H Plt Count Lymph % (Auto) [place] % (Auto) Eos % (Auto) Baso % (Auto) Lymph # Seg Neuts % (Manual) Lymphocytes % (Manual) Monocytes % (Manual) Basophils % (Manual) Nucleated RBC % Seg Neutrophils # Man Lymphocytes # (Manual) Monocytes # (Manual) PT INR D-Dimer POC ABG pH POC ABG pCO2 POC ABG pO2 Sodium Potassium Chloride Carbon Dioxide BUN Creatinine Glucose POC Glucose 126 H 116 H Lactic Acid Uric Acid Calcium Total Bilirubin AST ALT Total Creatine Kinase CK-MB (CK-2) CK-MB (CK-2) Rel Index Troponin T C-Reactive Protein NT-Pro-B Natriuret Pep Total Protein Albumin LDL Cholesterol Direct Urine WBC (Auto) 09/13/18 09/13/18 09/13/18 06:48 16:49 21:44 WBC RBC Hgb Hct MCV RDW Plt Count Lymph % (Auto) [place] % (Auto) Eos % (Auto) Baso % (Auto) Lymph # Seg Neuts % (Manual) Lymphocytes % (Manual) Monocytes % (Manual) Basophils % (Manual) Nucleated RBC % Seg Neutrophils # Man Lymphocytes # (Manual) Monocytes # (Manual) PT INR D-Dimer POC ABG pH POC ABG pCO2 POC ABG pO2 Sodium Potassium 5.5 H Chloride Carbon Dioxide BUN 25 H Creatinine Glucose 106 H POC Glucose 112 H 117 H Lactic Acid Uric Acid Calcium Total Bilirubin AST ALT Total Creatine Kinase CK-MB (CK-2) CK-MB (CK-2) Rel Index Troponin T C-Reactive Protein NT-Pro-B Natriuret Pep Total Protein Albumin LDL Cholesterol Direct Urine WBC (Auto) 09/14/18 09/14/18 09/14/18 04:44 11:43 16:35 WBC RBC Hgb Hct MCV RDW Plt Count Lymph % (Auto) [place] % (Auto) Eos % (Auto) Baso % (Auto) Lymph # Seg Neuts % (Manual) Lymphocytes % (Manual) Monocytes % (Manual) Basophils % (Manual) Nucleated RBC % Seg Neutrophils # Man Lymphocytes # (Manual) Monocytes # (Manual) PT INR D-Dimer POC ABG pH POC ABG pCO2 POC ABG pO2 Sodium Potassium 5.1 H Chloride Carbon Dioxide BUN 23 H Creatinine Glucose 112 H POC Glucose 166 H 140 H Lactic Acid Uric Acid Calcium 8.2 L Total Bilirubin AST ALT Total Creatine Kinase CK-MB (CK-2) CK-MB (CK-2) Rel Index Troponin T C-Reactive Protein NT-Pro-B Natriuret Pep Total Protein Albumin LDL Cholesterol Direct Urine WBC (Auto) 09/14/18 09/15/18 09/15/18 21:44 11:41 16:34 WBC RBC Hgb Hct MCV RDW Plt Count Lymph % (Auto) [place] % (Auto) Eos % (Auto) Baso % (Auto) Lymph # Seg Neuts % (Manual) Lymphocytes % (Manual) Monocytes % (Manual) Basophils % (Manual) Nucleated RBC % Seg Neutrophils # Man Lymphocytes # (Manual) Monocytes # (Manual) PT INR D-Dimer POC ABG pH POC ABG pCO2 POC ABG pO2 Sodium Potassium Chloride Carbon Dioxide BUN Creatinine Glucose POC Glucose 172 H 143 H 144 H Lactic Acid Uric Acid Calcium Total Bilirubin AST ALT Total Creatine Kinase CK-MB (CK-2) CK-MB (CK-2) Rel Index Troponin T C-Reactive Protein NT-Pro-B Natriuret Pep Total Protein Albumin LDL Cholesterol Direct Urine WBC (Auto) 09/15/18 21:18 WBC RBC Hgb Hct MCV RDW Plt Count Lymph % (Auto) [place] % (Auto) Eos % (Auto) Baso % (Auto) Lymph # Seg Neuts % (Manual) Lymphocytes % (Manual) Monocytes % (Manual) Basophils % (Manual) Nucleated RBC % Seg Neutrophils # Man Lymphocytes # (Manual) Monocytes # (Manual) PT INR D-Dimer POC ABG pH POC ABG pCO2 POC ABG pO2 Sodium Potassium Chloride Carbon Dioxide BUN Creatinine Glucose POC Glucose 166 H Lactic Acid Uric Acid Calcium Total Bilirubin AST ALT Total Creatine Kinase CK-MB (CK-2) CK-MB (CK-2) Rel Index Troponin T C-Reactive Protein NT-Pro-B Natriuret Pep Total Protein Albumin LDL Cholesterol Direct Urine WBC (Auto) Allied health notes reviewed: RT
[2018-09-16] MEDS: HumaLOG SUB-Q SCH ×4 (07:30→22:13)
[2018-09-16] MEDS: DUONEB *Not for PRN Use IH SCH ×2 (08:20→20:35)
[2018-09-16] MEDS: PULMICORT IH SCH ×2 (08:20→20:35)
[2018-09-16] MEDS: BROVANA NEBU IH SCH ×2 (08:20→20:35)
--- NOTE | 2018-09-16 10:39 | Progress Note ---
Assessment and Plan Assessment and plan: Acute on chronic respiratory failure. Etiology secondary to COPD exacerbation. Continue O2 and nebulizers. Improving. Acute kidney injury on CKD stage III. Off hemodialysis now. Creatinine remained stable despite off hemodialysis. Acute COPD exacerbation. We'll continue nebulizers, antibiotics and O2 continuously. Patient doing well. Awaiting longterm placement Hyperkalemia. Now resolved after multiple doses kayexalate Pneumonia may be gram-negative nini continue current antibiotics per ID. Sepsis. Improved. Leukocytosis resolved. Pulseless electrical activity status post cardiorespiratory arrest. Cont. beta renetta and aspirin. Supportive care. Seizure disorder. EEG Normal Morbid obesity. supportive care Disposition. Awaiting fdc placement. History Interval history: Feels better No shortness of breath currently Hospitalist Physical - Physical exam Narrative exam: Gen: Not in acute distress, lying in bed, morbidly obese HEENT: Normocephalic, atraumatic Neck: supple, no JVD Heart: S1 and S2 reg, no murmurs, rubs or gallop Lungs: Decreased breath sounds bilaterally, no crackles or wheeze Abd: soft, non tender, non distended, normal BS Ext: No edema, no clubbing, no cyanosis Neuro:awake,alert, Oriented X 3. No focal signs - Constitutional Vitals: Temp Pulse Resp BP Pulse Ox 98.0 F 99 H 18 121/62 97 09/16/18 07:55 09/16/18 08:56 09/16/18 08:56 09/16/18 07:55 09/16/18 08:25 General appearance: Present: no acute distress, other (intubated, chronically ill appearing) Results - Labs CBC & Chem 7: 09/13/18 06:48 09/15/18 07:49 Labs: Laboratory Last Values WBC 3.7 K/mm3 (4.5-11.0) L 09/13/18 06:48 RBC 2.49 M/mm3 (3.65-5.03) L 09/13/18 06:48 Hgb 7.7 gm/dl (11.8-15.2) L 09/13/18 06:48 Hct 23.7 % (35.5-45.6) L 09/13/18 06:48 MCV 95 fl (84-94) H 09/13/18 06:48 MCH 31 pg (28-32) 09/13/18 06:48 MCHC 33 % (32-34) 09/13/18 06:48 RDW 17.4 % (13.2-15.2) H 09/13/18 06:48 Plt Count 178 K/mm3 (140-440) 09/13/18 06:48 Lymph % (Auto) 16.1 % (13.4-35.0) 09/11/18 06:00 [place] % (Auto) 15.3 % (0.0-7.3) H 09/11/18 06:00 Eos % (Auto) 5.2 % (0.0-4.3) H 09/11/18 06:00 Baso % (Auto) 2.6 % (0.0-1.8) H 09/11/18 06:00 Lymph # 0.6 K/mm3 (1.2-5.4) L 09/11/18 06:00 Person # 0.5 K/mm3 (0.0-0.8) 09/11/18 06:00 Eos # 0.2 K/mm3 (0.0-0.4) 09/11/18 06:00 Baso # 0.1 K/mm3 (0.0-0.1) 09/11/18 06:00 Add Manual Diff Complete 09/06/18 06:42 Total Counted 100 09/06/18 06:42 Seg Neutrophils % 60.8 % (40.0-70.0) 09/11/18 06:00 Seg Neuts % (Manual) 79.0 % (40.0-70.0) H 09/06/18 06:42 0 % 09/06/18 06:42 6.0 % (13.4-35.0) L 09/06/18 06:42 Reactive Lymphs % (Man) 0 % 09/06/18 06:42 12.0 % (0.0-7.3) H 09/06/18 06:42 1.0 % (0.0-4.3) 09/06/18 06:42 2.0 % (0.0-1.8) H 09/06/18 06:42 0 % 09/06/18 06:42 0 % 09/06/18 06:42 0 % 09/06/18 06:42 0 % 09/06/18 06:42 Nucleated RBC % Not Reportable 09/06/18 06:42 Seg Neutrophils # 2.1 K/mm3 (1.8-7.7) 09/11/18 06:00 Seg Neutrophils # Man 3.9 K/mm3 (1.8-7.7) 09/06/18 06:42 Band Neutrophils # 0.0 K/mm3 09/06/18 06:42 0.3 K/mm3 (1.2-5.4) L 09/06/18 06:42 Abs React Lymphs (Man) 0.0 K/mm3 09/06/18 06:42 0.6 K/mm3 (0.0-0.8) 09/06/18 06:42 0.0 K/mm3 (0.0-0.4) 09/06/18 06:42 0.1 K/mm3 (0.0-0.1) 09/06/18 06:42 0.0 K/mm3 09/06/18 06:42 0.0 K/mm3 09/06/18 06:42 0.0 K/mm3 09/06/18 06:42 Blast Cells # 0.0 K/mm3 09/06/18 06:42 WBC Morphology Not Reportable 09/06/18 06:42 Hypersegmented Neuts Not Reportable 09/06/18 06:42 Hyposegmented Neuts Not Reportable 09/06/18 06:42 Hypogranular Neuts Not Reportable 09/06/18 06:42 Not Reportable 09/06/18 06:42 Not Reportable 09/06/18 06:42 Not Reportable 09/06/18 06:42 Not Reportable 09/06/18 06:42 Not Reportable 09/06/18 06:42 Not Reportable 09/06/18 06:42 Consistent w auto 09/06/18 06:42 Not Reportable 09/06/18 06:42 Plt Clumps, EDTA Not Reportable 09/06/18 06:42 Not Reportable 09/06/18 06:42 Not Reportable 09/06/18 06:42 Not Reportable 09/06/18 06:42 Plt Morphology Comment Not Reportable 09/06/18 06:42 RBC Morphology Not Reportable 09/06/18 06:42 Dimorphic RBCs Not Reportable 09/06/18 06:42 Not Reportable 09/06/18 06:42 Not Reportable 09/06/18 06:42 Not Reportable 09/06/18 06:42 1+ 09/06/18 06:42 Not Reportable 09/06/18 06:42 1+ 09/06/18 06:42 Not Reportable 09/06/18 06:42 Not Reportable 09/06/18 06:42 Not Reportable 09/06/18 06:42 Not Reportable 09/06/18 06:42 Not Reportable 09/06/18 06:42 Not Reportable 09/06/18 06:42 Not Reportable 09/06/18 06:42 Not Reportable 09/06/18 06:42 Not Reportable 09/06/18 06:42 Not Reportable 09/06/18 06:42 Not Reportable 09/06/18 06:42 Not Reportable 09/06/18 06:42 Not Reportable 09/06/18 06:42 Acanthocytes (Spur) Not Reportable 09/06/18 06:42 Rouleaux Not Reportable 09/06/18 06:42 Not Reportable 09/06/18 06:42 Not Reportable 09/06/18 06:42 Not Reportable 09/06/18 06:42 Not Reportable 09/06/18 06:42 Hem Pathologist Commnt No 09/06/18 06:42 PT 15.6 Sec. (12.2-14.9) H 08/25/18 16:43 INR 1.27 (0.87-1.13) H 08/25/18 16:43 APTT 30.8 Sec. (24.2-36.6) 08/21/18 04:42 1978.25 ng/mlDDU (0-234) H 08/24/18 13:41 POC ABG pH 7.410 (7.35-7.45) 08/30/18 13:35 POC ABG pCO2 41.4 (35-45) 08/30/18 13:35 POC ABG pO2 99 (80-105) 08/30/18 13:35 POC ABG HCO3 26.2 (22-26 mml/L) 08/30/18 13:35 POC ABG Total CO2 27 (23-27mmol/L) 08/30/18 13:35 POC ABG O2 Sat 98 07/03/19 13:35 POC ABG Base Excess 2 ((-2) - (+3)mmol/L) 08/30/18 13:35 30 % 08/30/18 13:35 Sodium 141 mmol/L (137-145) 09/14/18 04:44 Potassium 4.8 mmol/L (3.6-5.0) 09/15/18 07:49 Chloride 104.4 mmol/L (98-107) 09/14/18 04:44 Carbon Dioxide 28 mmol/L (22-30) 09/14/18 04:44 14 mmol/L 09/14/18 04:44 BUN 23 mg/dL (9-20) H 09/14/18 04:44 1.4 mg/dL (0.8-1.5) 09/14/18 04:44 Estimated GFR 50 ml/min 09/14/18 04:44 16 % 09/14/18 04:44 Glucose 112 mg/dL (75-100) H 09/14/18 04:44 POC Glucose 92 (70-105) 09/16/18 08:03 317 Mosm/kg 08/31/18 13:54 Lactic Acid 1.30 mmol/L (0.7-2.0) 08/21/18 20:50 9.6 mg/dL (3.5-7.6) H 08/31/18 13:54 Calcium 8.2 mg/dL (8.4-10.2) L 09/14/18 04:44 Magnesium 2.00 mg/dL (1.7-2.3) 09/02/18 05:16 0.60 mg/dL (0.1-1.2) 08/28/18 04:49 AST 27 units/L (5-40) 08/28/18 04:49 ALT 12 units/L (7-56) 08/28/18 04:49 87 units/L (35-129) 08/28/18 04:49 222 units/L (55-170) H 08/21/18 10:45 CK-MB (CK-2) 9.2 ng/mL (0.0-4.0) H 08/21/18 10:45 CK-MB (CK-2) Rel Index 4.1 (0-4) H 08/21/18 10:45 0.020 ng/mL (0.00-0.029) 09/08/18 09:06 9.00 mg/dL (0.00-1.30) H 08/24/18 13:41 NT-Pro-B Natriuret Pep > 10270 pg/mL (0-900) H 08/28/18 04:49 5.4 g/dL (6.3-8.2) L 08/28/18 04:49 2.2 g/dL (3.9-5) L 08/28/18 04:49 0.7 % 08/28/18 04:49 Triglycerides 87 mg/dL (2-149) 08/21/18 04:42 Cholesterol 93 mg/dL (50-199) 08/21/18 04:42 44 mg/dL (50-130) L 08/21/18 04:42 41 mg/dL (40-59) 08/21/18 04:42 2.26 % 08/21/18 04:42 Yellow (Yellow) 08/21/18 15:03 Slightly-cloudy (Clear) 08/21/18 15:03 5.0 (5.0-7.0) 08/21/18 15:03 Ur Specific [place] 1.015 (1.003-1.030) 08/21/18 15:03 30 mg/dl mg/dL (Negative) 08/21/18 15:03 Neg mg/dL (Negative) 08/21/18 15:03 Neg mg/dL (Negative) 08/21/18 15:03 Mod (Negative) 08/21/18 15:03 Neg (Negative) 08/21/18 15:03 Neg (Negative) 08/21/18 15:03 < 2.0 mg/dL (<2.0) 08/21/18 15:03 Ur Leukocyte Esterase Tr (Negative) 08/21/18 15:03 13.0 /HPF (0.0-6.0) H 08/21/18 15:03 15.0 /HPF (0.0-6.0) 08/21/18 15:03 U Epithel Cells (Auto) 1.0 /HPF (0-13.0) 08/21/18 15:03 1+ /HPF (Negative) 08/21/18 15:03 Few /HPF 08/21/18 15:03 Random Vancomycin 10.5 ug/mL (0-40.0) 08/26/18 05:53 Levetiracetam 25.7 mcg/mL (12.0-46.0) 08/26/18 13:42 Hepatitis A IgM Ab Non-reactive (NonReactive) 08/27/18 23:25 Hep Bs Antigen Non-reactive (Negative) 08/27/18 23:25 Hep B Core IgM Ab Non-reactive (NonReactive) 08/27/18 23:25 Non-reactive (NonReactive) 08/27/18 23:25 Active Medications - Current Medications Current Medications: Generic Name Dose Route Start Last Admin Trade Name Freq PRN Reason Stop Dose Admin Acetaminophen 650 mg 08/21/18 06:31 09/01/18 21:12 Tylenol PO 650 mg Q4H PRN Administration Pain MILD(1-3)/Fever >100.5/COOK Albuterol/Ipratropium 1 ampul 08/24/18 20:00 09/16/18 08:20 Duoneb *Not For Prn Use* IH 1 ampul BIDRT LUIS Administration Lipase/Protease/Amylase 1 each 08/26/18 12:07 Pancreamaris [place] 10,500 Unit FEEDTUBE PRN PRN For Clogged Feeding Tube Arformoterol Tartrate 15 mcg 08/24/18 20:00 09/16/18 08:20 Brovana Nebu IH 15 mcg Q12HRT LUIS Administration Bisacodyl 10 mg 09/02/18 12:42 Dulcolax IN QDAY PRN Constipation Budesonide 0.5 mg 08/24/18 20:00 09/16/18 08:20 Pulmicort IH 0.5 mg Q12HRT LUIS Administration Dextrose 50 ml 08/21/18 06:48 D50w (25gm) Syringe IV PRN PRN Hypoglycemia Diphenhydramine HCl 25 mg 09/11/18 06:07 09/14/18 12:28 Benadryl PO 25 mg Q6H PRN Administration Itching Heparin Sodium (Porcine) 5,000 unit 08/22/18 10:00 09/15/18 22:39 Heparin SUB-Q 5,000 unit Q12HR LUIS Administration Hydralazine HCl 50 mg 09/08/18 10:00 09/15/18 22:34 Apresoline PO 50 mg BID LUIS Administration Insulin Human Lispro 0 unit 08/31/18 22:00 09/15/18 22:42 Humalog SUB-Q 2 unit ACHS LUIS Administration Protocol Levetiracetam 750 mg 09/04/18 22:00 09/15/18 22:35 Keppra PO 750 mg BID LUIS Administration Metoclopramide HCl 10 mg 09/05/18 18:35 09/10/18 03:02 Reglan IV 10 mg Q6H PRN Administration Nausea And Vomiting Morphine Sulfate 2 mg 08/26/18 14:24 08/30/18 01:40 Morphine IV 2 mg Q6H PRN Administration Pain, Moderate (4-6) Ondansetron HCl 4 mg 08/21/18 06:31 Zofran IV Q8H PRN Nausea And Vomiting Sodium Chloride 10 ml 08/21/18 10:00 09/15/18 22:36 Sodium Chloride Flush Syringe 10 Ml IV 10 ml BID LUIS Administration Zolpidem Tartrate 5 mg 09/09/18 00:19 09/16/18 00:49 Ambien PO 5 mg QHS PRN Administration Sleep Nutrition/Malnutrition Assess - Dietary Evaluation Nutrition/Malnutrition Findings: Nutrition Notes Start: 08/21/18 16:58 Freq: Status: Active Protocol: Document 09/12/18 14:04 RM (Rec: 09/12/18 14:12 [id number]) Nutrition Notes Initial or Follow up Reassessment Current Diagnosis CKD(stage I-IV),Diabetes, Sepsis,Heart Failure Other Pertinent Diagnosis COPD exacerbation, pneu, s/p cardiac arrest Current Diet Cardiac/Consistent CHO Labs/Tests Reviewed Pertinent Medications Reviewed Height 5 ft 6 in Weight 138.1 kg [place] Body Weight (kg) 64.54 BMI 49.1 Weight change and time frame Current wt obtained from [facility]. Wt loss possibly d/t fluid change Subjective/Other Information Glucerna no longer in diet order. Pt stated that he eats 1/3 to 50% of his meals. Stated that he was drinking the Glucerna previously but has not received any the past few days. Repairing Calibrator brought pt 2 Glucerna. Burn Absent Trauma Absent #1 Nutrition Diagnosis Inadequate oral intake Diagnosis Progress(for reassessment Continues documentation) Is patient on ventilator? No Is Patient Ambulatory and/or Out of Bed No [facility] 2493.756 Kcal/Kg value to use for calculation 12 Approximate Energy Requirements Using 1657 kcal/Kg Calculation Used for Recommendations Kcal/kg Additional Notes Pro needs 1-1.2g/kg adjBW: 105-127g/day Fluid needs 1ml/kcal Nutrition Intervention Change Diet Order: Continue current Add Supplement/Snack (indicate name/kcal Glucerna Chocolate, [place] /protein ) BID Provides kCal: 440 Provides Protein (gm) 20 Goal #1 Meet at least 75% of kcal and protein needs via PO intakes Anticipated Discharge Needs: Cardiac/Consistent CHO Follow-Up By: 09/18/18 Additional Comments Follow for PO and ONS intakes
[2018-09-16] MEDS: HEPARIN SUB-Q SCH ×2 (11:37→21:43)
[2018-09-16] MEDS: KEPPRA PO SCH ×2 (11:37→22:17)
[2018-09-16] MEDS: APRESOLINE PO SCH ×2 (11:38→22:18)
[2018-09-16] MEDS: SODIUM CHLORIDE FLUSH SYRINGE 10 ML IV SCH ×2 (11:38→22:18)
[2018-09-16] MEDS: BENADRYL PO PRN (21:41)
[2018-09-16] MEDS: MORPHINE IV PRN (22:14)
[2018-09-17] MEDS: AMBIEN PO PRN (00:30)
[2018-09-17 06:26] LABS: Hematocrit 22.9 % (35.5-45.6); Hemoglobin 7.5 gm/dl (11.8-15.2); Mean Corpuscular HGB Conc 33 % (32-34); Mean Corpuscular Hemoglobin 31 pg (28-32); Mean Corpuscular Volume 95 fl (84-94); Platelet Count 197 K/mm3 (140-440); Red Blood Count 2.41 M/mm3 (3.65-5.03); Red Cell Distribution Width 16.6 % (13.2-15.2)
[2018-09-17 06:40] LABS: Calcium 7.9 mg/dL (8.4-10.2)
[2018-09-17] MEDS: HumaLOG SUB-Q SCH ×4 (07:30→22:47)
[2018-09-17] MEDS: DUONEB *Not for PRN Use IH SCH ×2 (07:53→20:44)
[2018-09-17] MEDS: BROVANA NEBU IH SCH ×2 (07:54→20:44)
[2018-09-17] MEDS: PULMICORT IH SCH ×2 (07:54→20:44)
[2018-09-17] MEDS ORDERED: NACL 0.9% 1000 ML 1,000 ML IV SCH (08:00)
--- NOTE | 2018-09-17 09:26 | Progress Note ---
Assessment and Plan Assessment and plan: Acute on chronic respiratory failure. Etiology secondary to COPD exacerbation. Continue O2 and nebulizers. Improving. Acute kidney injury on CKD stage III. Off hemodialysis now. Cr 1.6 today. Start NS, recheck BMP in am Acute COPD exacerbation. We'll continue nebulizers, antibiotics and O2 cont inuously. Patient doing well. Awaiting long term placement Hyperkalemia. Now resolved after multiple doses kayexalate Pneumonia may be gram-negative nini continue current antibiotics per ID. Sepsis. Improved. Leukocytosis resolved. Pulseless electrical activity status post cardiorespiratory arrest. Cont. beta renetta and aspirin. Supportive care. Seizure disorder. EEG Normal Morbid obesity. supportive care Disposition. Awaiting intermediate placement. History Interval history: Feels better No shortness of breath currently Hospitalist Physical - Physical exam Narrative exam: Gen: Not in acute distress, lying in bed, morbidly obese HEENT: Normocephalic, atraumatic Neck: supple, no JVD Heart: S1 and S2 reg, no murmurs, rubs or gallop Lungs: Decreased breath sounds bilaterally, no crackles or wheeze Abd: soft, non tender, non distended, normal BS Ext: No edema, no clubbing, no cyanosis Neuro:awake,alert, Oriented X 3. No focal signs - Constitutional Vitals: Temp Pulse Resp BP Pulse Ox 98.4 F 94 H 18 125/48 94 09/17/18 07:25 09/17/18 07:54 09/17/18 07:54 09/17/18 07:25 09/17/18 07:58 General appearance: Present: no acute distress, other (intubated, chronically ill appearing) Results - Labs CBC & Chem 7: 09/17/18 04:51 09/17/18 04:51 Labs: Laboratory Last Values WBC 3.5 K/mm3 (4.5-11.0) L 09/17/18 04:51 RBC 2.41 M/mm3 (3.65-5.03) L 09/17/18 04:51 Hgb 7.5 gm/dl (11.8-15.2) L 09/17/18 04:51 Hct 22.9 % (35.5-45.6) L 09/17/18 04:51 MCV 95 fl (84-94) H 09/17/18 04:51 MCH 31 pg (28-32) 09/17/18 04:51 MCHC 33 % (32-34) 09/17/18 04:51 RDW 16.6 % (13.2-15.2) H 09/17/18 04:51 Plt Count 197 K/mm3 (140-440) 09/17/18 04:51 Lymph % (Auto) 16.1 % (13.4-35.0) 09/11/18 06:00 [place] % (Auto) 15.3 % (0.0-7.3) H 09/11/18 06:00 Eos % (Auto) 5.2 % (0.0-4.3) H 09/11/18 06:00 Baso % (Auto) 2.6 % (0.0-1.8) H 09/11/18 06:00 Lymph # 0.6 K/mm3 (1.2-5.4) L 09/11/18 06:00 [place] # 0.5 K/mm3 (0.0-0.8) 09/11/18 06:00 Eos # 0.2 K/mm3 (0.0-0.4) 09/11/18 06:00 Baso # 0.1 K/mm3 (0.0-0.1) 09/11/18 06:00 Add Manual Diff Complete 09/06/18 06:42 Total Counted 100 09/06/18 06:42 Seg Neutrophils % 60.8 % (40.0-70.0) 09/11/18 06:00 Seg Neuts % (Manual) 79.0 % (40.0-70.0) H 09/06/18 06:42 0 % 09/06/18 06:42 6.0 % (13.4-35.0) L 09/06/18 06:42 Reactive Lymphs % (Man) 0 % 09/06/18 06:42 12.0 % (0.0-7.3) H 09/06/18 06:42 1.0 % (0.0-4.3) 09/06/18 06:42 2.0 % (0.0-1.8) H 09/06/18 06:42 0 % 09/06/18 06:42 0 % 09/06/18 06:42 0 % 09/06/18 06:42 0 % 09/06/18 06:42 Nucleated RBC % Not Reportable 09/06/18 06:42 Seg Neutrophils # 2.1 K/mm3 (1.8-7.7) 09/11/18 06:00 Seg Neutrophils # Man 3.9 K/mm3 (1.8-7.7) 09/06/18 06:42 Band Neutrophils # 0.0 K/mm3 09/06/18 06:42 0.3 K/mm3 (1.2-5.4) L 09/06/18 06:42 Abs React Lymphs (Man) 0.0 K/mm3 09/06/18 06:42 0.6 K/mm3 (0.0-0.8) 09/06/18 06:42 0.0 K/mm3 (0.0-0.4) 09/06/18 06:42 0.1 K/mm3 (0.0-0.1) 09/06/18 06:42 0.0 K/mm3 09/06/18 06:42 0.0 K/mm3 09/06/18 06:42 0.0 K/mm3 09/06/18 06:42 Blast Cells # 0.0 K/mm3 09/06/18 06:42 WBC Morphology Not Reportable 09/06/18 06:42 Hypersegmented Neuts Not Reportable 09/06/18 06:42 Hyposegmented Neuts Not Reportable 09/06/18 06:42 Hypogranular Neuts Not Reportable 09/06/18 06:42 Not Reportable 09/06/18 06:42 Not Reportable 09/06/18 06:42 Not Reportable 09/06/18 06:42 Not Reportable 09/06/18 06:42 Not Reportable 09/06/18 06:42 Not Reportable 09/06/18 06:42 Consistent w auto 09/06/18 06:42 Not Reportable 09/06/18 06:42 Plt Clumps, EDTA Not Reportable 09/06/18 06:42 Not Reportable 09/06/18 06:42 Not Reportable 09/06/18 06:42 Not Reportable 09/06/18 06:42 Plt Morphology Comment Not Reportable 09/06/18 06:42 RBC Morphology Not Reportable 09/06/18 06:42 Dimorphic RBCs Not Reportable 09/06/18 06:42 Not Reportable 09/06/18 06:42 Not Reportable 09/06/18 06:42 Not Reportable 09/06/18 06:42 1+ 09/06/18 06:42 Not Reportable 09/06/18 06:42 1+ 09/06/18 06:42 Not Reportable 09/06/18 06:42 Not Reportable 09/06/18 06:42 Not Reportable 09/06/18 06:42 Not Reportable 09/06/18 06:42 Not Reportable 09/06/18 06:42 Not Reportable 09/06/18 06:42 Not Reportable 09/06/18 06:42 Not Reportable 09/06/18 06:42 Not Reportable 09/06/18 06:42 Not Reportable 09/06/18 06:42 Not Reportable 09/06/18 06:42 Not Reportable 09/06/18 06:42 Not Reportable 09/06/18 06:42 Acanthocytes (Spur) Not Reportable 09/06/18 06:42 Rouleaux Not Reportable 09/06/18 06:42 Not Reportable 09/06/18 06:42 Not Reportable 09/06/18 06:42 Not Reportable 09/06/18 06:42 Not Reportable 09/06/18 06:42 Hem Pathologist Commnt No 09/06/18 06:42 PT 15.6 Sec. (12.2-14.9) H 08/25/18 16:43 INR 1.27 (0.87-1.13) H 08/25/18 16:43 APTT 30.8 Sec. (24.2-36.6) 08/21/18 04:42 1978.25 ng/mlDDU (0-234) H 08/24/18 13:41 POC ABG pH 7.410 (7.35-7.45) 08/30/18 13:35 POC ABG pCO2 41.4 (35-45) 08/30/18 13:35 POC ABG pO2 99 (80-105) 08/30/18 13:35 POC ABG HCO3 26.2 (22-26 mml/L) 08/30/18 13:35 POC ABG Total CO2 27 (23-27mmol/L) 08/30/18 13:35 POC ABG O2 Sat 98 08/30/18 13:35 POC ABG Base Excess 2 ((-2) - (+3)mmol/L) 08/30/18 13:35 30 % 08/30/18 13:35 Sodium 138 mmol/L (137-145) 09/17/18 04:51 Potassium 4.6 mmol/L (3.6-5.0) 09/17/18 04:51 Chloride 101.5 mmol/L (98-107) 09/17/18 04:51 Carbon Dioxide 26 mmol/L (22-30) 09/17/18 04:51 15 mmol/L 09/17/18 04:51 BUN 24 mg/dL (9-20) H 09/17/18 04:51 1.6 mg/dL (0.8-1.5) H 09/17/18 04:51 Estimated GFR 43 ml/min 09/17/18 04:51 15 % 09/17/18 04:51 Glucose 116 mg/dL (75-100) H 09/17/18 04:51 POC Glucose 102 (70-105) 09/17/18 07:35 317 Mosm/kg 08/31/18 13:54 Lactic Acid 1.30 mmol/L (0.7-2.0) 08/21/18 20:50 9.6 mg/dL (3.5-7.6) H 08/31/18 13:54 Calcium 7.9 mg/dL (8.4-10.2) L 09/17/18 04:51 Magnesium 2.00 mg/dL (1.7-2.3) 09/02/18 05:16 0.60 mg/dL (0.1-1.2) 08/28/18 04:49 AST 27 units/L (5-40) 08/28/18 04:49 ALT 12 units/L (7-56) 08/28/18 04:49 87 units/L (35-129) 08/28/18 04:49 222 units/L (55-170) H 08/21/18 10:45 CK-MB (CK-2) 9.2 ng/mL (0.0-4.0) H 08/21/18 10:45 CK-MB (CK-2) Rel Index 4.1 (0-4) H 08/21/18 10:45 0.020 ng/mL (0.00-0.029) 09/08/18 09:06 9.00 mg/dL (0.00-1.30) H 08/24/18 13:41 NT-Pro-B Natriuret Pep > 69857 pg/mL (0-900) H 08/28/18 04:49 5.4 g/dL (6.3-8.2) L 08/28/18 04:49 2.2 g/dL (3.9-5) L 08/28/18 04:49 0.7 % 08/28/18 04:49 Triglycerides 87 mg/dL (2-149) 08/21/18 04:42 Cholesterol 93 mg/dL (50-199) 08/21/18 04:42 44 mg/dL (50-130) L 08/21/18 04:42 41 mg/dL (40-59) 08/21/18 04:42 2.26 % 08/21/18 04:42 Yellow (Yellow) 08/21/18 15:03 Slightly-cloudy (Clear) 08/21/18 15:03 5.0 (5.0-7.0) 08/21/18 15:03 Ur Specific [place] 1.015 (1.003-1.030) 08/21/18 15:03 30 mg/dl mg/dL (Negative) 08/21/18 15:03 Neg mg/dL (Negative) 08/21/18 15:03 Neg mg/dL (Negative) 08/21/18 15:03 Mod (Negative) 08/21/18 15:03 Neg (Negative) 08/21/18 15:03 Neg (Negative) 08/21/18 15:03 < 2.0 mg/dL (<2.0) 08/21/18 15:03 Ur Leukocyte Esterase Tr (Negative) 08/21/18 15:03 13.0 /HPF (0.0-6.0) H 08/21/18 15:03 15.0 /HPF (0.0-6.0) 08/21/18 15:03 U Epithel Cells (Auto) 1.0 /HPF (0-13.0) 08/21/18 15:03 1+ /HPF (Negative) 08/21/18 15:03 Few /HPF 08/21/18 15:03 Random Vancomycin 10.5 ug/mL (0-40.0) 08/26/18 05:53 Levetiracetam 25.7 mcg/mL (12.0-46.0) 08/26/18 13:42 Hepatitis A IgM Ab Non-reactive (NonReactive) 08/27/18 23:25 Hep Bs Antigen Non-reactive (Negative) 08/27/18 23:25 Hep B Core IgM Ab Non-reactive (NonReactive) 08/27/18 23:25 Non-reactive (NonReactive) 08/27/18 23:25 Active Medications - Current Medications Current Medications: Generic Name Dose Route Start Last Admin Trade Name Freq PRN Reason Stop Dose Admin Acetaminophen 650 mg 08/21/18 06:31 09/01/18 21:12 Tylenol PO 650 mg Q4H PRN Administration Pain MILD(1-3)/Fever >100.5/COOK Albuterol/Ipratropium 1 ampul 08/24/18 20:00 09/17/18 07:53 Duoneb *Not For Prn Use* IH 1 ampul BIDRT LUIS Administration Lipase/Protease/Amylase 1 each 08/26/18 12:07 Pancreamaris [place] 10,500 Unit FEEDTUBE PRN PRN For Clogged Feeding Tube Arformoterol Tartrate 15 mcg 08/24/18 20:00 09/17/18 07:54 Brovana Nebu IH 15 mcg Q12HRT LUIS Administration Bisacodyl 10 mg 09/02/18 12:42 Dulcolax AL QDAY PRN Constipation Budesonide 0.5 mg 08/24/18 20:00 09/17/18 07:54 Pulmicort IH 0.5 mg Q12HRT LUIS Administration Dextrose 50 ml 08/21/18 06:48 D50w (25gm) Syringe IV PRN PRN Hypoglycemia Diphenhydramine HCl 25 mg 09/11/18 06:07 09/16/18 21:41 Benadryl PO 25 mg Q6H PRN Administration Itching Heparin Sodium (Porcine) 5,000 unit 08/22/18 10:00 09/16/18 21:43 Heparin SUB-Q 5,000 unit Q12HR LUIS Administration Hydralazine HCl 50 mg 09/08/18 10:00 09/16/18 22:18 Apresoline PO 50 mg BID LUIS Administration Sodium Chloride 1,000 mls @ 42 mls/hr 09/17/18 08:00 Nacl 0.9% 1000 Ml IV DIRECT LUIS Insulin Human Lispro 0 unit 08/31/18 22:00 09/17/18 07:30 Humalog SUB-Q Not Given ACHS [facility] Protocol Levetiracetam 750 mg 09/04/18 22:00 09/16/18 22:17 Keppra PO 750 mg BID LUIS Administration Metoclopramide HCl 10 mg 09/05/18 18:35 09/10/18 03:02 Reglan IV 10 mg Q6H PRN Administration Nausea And Vomiting Morphine Sulfate 2 mg 08/26/18 14:24 09/16/18 22:14 Morphine IV 2 mg Q6H PRN Administration Pain, Moderate (4-6) Ondansetron HCl 4 mg 08/21/18 06:31 Zofran IV Q8H PRN Nausea And Vomiting Sodium Chloride 10 ml 08/21/18 10:00 09/16/18 22:18 Sodium Chloride Flush Syringe 10 Ml IV 10 ml BID LUIS Administration Zolpidem Tartrate 5 mg 09/09/18 00:19 09/17/18 00:30 Ambien PO 5 mg QHS PRN Administration Sleep Nutrition/Malnutrition Assess - Dietary Evaluation Nutrition/Malnutrition Findings: Nutrition Notes Start: 08/21/18 16:58 Freq: Status: Active Protocol: Document 09/12/18 14:04 RM (Rec: 09/12/18 14:12 [id number]) Nutrition Notes Initial or Follow up Reassessment Current Diagnosis CKD(stage I-IV),Diabetes, Sepsis,Heart Failure Other Pertinent Diagnosis COPD exacerbation, pneu, s/p cardiac arrest Current Diet Cardiac/Consistent CHO Labs/Tests Reviewed Pertinent Medications Reviewed Height 5 ft 6 in Weight 138.1 kg [place] Body Weight (kg) 64.54 BMI 49.1 Weight change and time frame Current wt obtained from [facility]. Wt loss possibly d/t fluid change Subjective/Other Information Glucerna no longer in diet order. Pt stated that he eats 1/3 to 50% of his meals. Stated that he was drinking the Glucerna previously but has not received any the past few days. Development Administrator brought pt 2 Glucerna. Burn Absent Trauma Absent #1 Nutrition Diagnosis Inadequate oral intake Diagnosis Progress(for reassessment Continues documentation) Is patient on ventilator? No Is Patient Ambulatory and/or Out of Bed No REE-([facility]-confined to bed) 2493.756 Kcal/Kg value to use for calculation 12 Approximate Energy Requirements Using 1657 kcal/Kg Calculation Used for Recommendations Kcal/kg Additional Notes Pro needs 1-1.2g/kg adjBW: 105-127g/day Fluid needs 1ml/kcal Nutrition Intervention Change Diet Order: Continue current Add Supplement/Snack (indicate name/kcal Glucerna Chocolate, Mica /protein ) BID Provides kCal: 440 Provides Protein (gm) 20 Goal #1 Meet at least 75% of kcal and protein needs via PO intakes Anticipated Discharge Needs: Cardiac/Consistent CHO Follow-Up By: 09/18/18 Additional Comments Follow for PO and ONS intakes
[2018-09-17] MEDS: KEPPRA PO SCH ×2 (10:35→21:53)
[2018-09-17] MEDS: HEPARIN SUB-Q SCH ×2 (10:35→22:39)
[2018-09-17] MEDS: APRESOLINE PO SCH ×2 (10:35→21:53)
[2018-09-17] MEDS: SODIUM CHLORIDE FLUSH SYRINGE 10 ML IV SCH ×2 (10:36→21:54)
--- NOTE | 2018-09-17 19:32 | Progress Note ---
Assessment and Plan -s/p Cardiopulmonary arrest with ROSC -Acute on chronic hypoxemic respiratory failure s/p MVS -Lactic acidosis, resolved -Acute metabolic/respiratory acidosis -Acute on chronic renal failure (multifactorial) -Sepsis probably secondary to aspiration PNA, resolving -AE-COPD -Acute metabolic-toxic encephalopathy -Morbid obesity -NSTEMI- probably type 2 ischemia -Type 2 DM -h/o Liver disease -h/o Colon CA -Hyperkalemia -LEFT TMJ JOINT DISLOCATION-POA -Supplemental oxygen to keep O2 sats 88-90% -Restrictive oxygen therapy -Bronchodilators -Modified diet with aspiration precautions -Accuchecks with glycemic control. Target blood glucose <180mg/dL -Prevention of delirium, maintenance of sleep-wake cycle -Antibiotics per ID -Avoid nephrotoxic agents, adjust all antibiotics and medications for CrCL and GFR -VTE and Stress ulcer prophylaxis( Heparin/Famotidine) --PT/OT to treat -increase activity -Will need maxillo facial evaluation -Nocturnal BIPAP and prn during the day Discussed with RT/RN Updated the patient and his at the bedside. CONDITION: IMPROVING PROGNOSIS:FAIR CODE STATUS: FULL CODE Subjective Date of service: 09/17/18 Principal diagnosis: s/p cardiac arrest; severe sepsis; acute hypoxemic-hyp ercapnic resp failure Interval history: Patient is seen today for: cardiopulmonary arrest, severe sepsis, acute hypoxemic-hypercapnic respiratory failure s/p MVS, KHRIS on CKD on HD Seen and examined at bedside; 24hour events reviewed; nursing and respiratory care staff consulted; no adverse overnight events reported to me; Awake and alert, obeying simple commands, being fed by his . Making good amounts of urine, HD on hold for now. He denies any chest pain, no shortness of breath, no nausea or vomiting, no fevers Objective Vital Signs - 12hr 09/17/18 09/17/18 07:54 07:58 Pulse Rate [ 94 H Anterior Bilateral Throughout] Respiratory 18 Rate [Anterior Bilateral Throughout] O2 Sat by Pulse 94 Oximetry Constitutional: no acute distress, alert Eyes: non-icteric ENT: oropharynx moist, other Neck: supple, no JVD, other (short neck) Effort: mildly labored Ascultation: Bilateral: diminished breath sounds, rhonchi (coarse BS bilaterally) Percussion: Bilateral: not dull Cardiovascular: regular rate and rhythm, other (S1,S2, no murmurs, no gallops or rubs) Gastrointestinal: normoactive bowel sounds, soft, non-tender, non-distended, other (Madison catheter in place, clear urine) Integumentary: normal, other (right femoral HD catheter) Extremities: no cyanosis, no edema, pink and warm, pulses normal, no ischemia or petechiae Neurologic: non-focal exam (grossly), pupils equal and round, motor strength normal and, other (awake and alert, obeying one step commands) Psychiatric: mood appropriate, affect normal CBC and BMP: 09/17/18 04:51 09/17/18 04:51 ABG, PT/INR, D-dimer: ABG POC ABG pH 7.410 (7.35-7.45) 08/30/18 13:35 POC ABG pCO2 41.4 (35-45) 08/30/18 13:35 POC ABG pO2 99 (80-105) 08/30/18 13:35 POC ABG HCO3 26.2 (22-26 mml/L) 08/30/18 13:35 POC ABG Total CO2 27 (23-27mmol/L) 08/30/18 13:35 POC ABG O2 Sat 98 08/30/18 13:35 PT/INR, D-dimer PT 15.6 Sec. (12.2-14.9) H 08/25/18 16:43 INR 1.27 (0.87-1.13) H 08/25/18 16:43 1978.25 ng/mlDDU (0-234) H 08/24/18 13:41 Abnormal lab findings: Abnormal Labs 08/21/18 08/21/18 08/21/18 04:42 04:42 04:42 WBC 19.1 H RBC 2.49 L Hgb 7.7 L Hct 24.5 L MCV 98 H RDW 17.7 H Plt Count Lymph % (Auto) [facility] % (Auto) Eos % (Auto) Baso % (Auto) Lymph # Seg Neuts % (Manual) 84.0 H Lymphocytes % (Manual) 7.0 L Monocytes % (Manual) 9.0 H Basophils % (Manual) Nucleated RBC % Seg Neutrophils # Man 16.0 H Lymphocytes # (Manual) Monocytes # (Manual) 1.7 H PT 20.1 H INR 1.76 H D-Dimer POC ABG pH POC ABG pCO2 POC ABG pO2 Sodium Potassium Chloride Carbon Dioxide BUN Creatinine Glucose POC Glucose Lactic Acid Uric Acid Calcium Total Bilirubin AST ALT Total Creatine Kinase CK-MB (CK-2) CK-MB (CK-2) Rel Index Troponin T 0.032 H C-Reactive Protein NT-Pro-B Natriuret Pep Total Protein Albumin LDL Cholesterol Direct 44 L Urine WBC (Auto) 08/21/18 08/21/18 08/21/18 04:42 04:42 04:42 WBC RBC Hgb Hct MCV RDW Plt Count Lymph % (Auto) [facility] % (Auto) Eos % (Auto) Baso % (Auto) Lymph # Seg Neuts % (Manual) Lymphocytes % (Manual) Monocytes % (Manual) Basophils % (Manual) Nucleated RBC % Seg Neutrophils # Man Lymphocytes # (Manual) Monocytes # (Manual) PT INR D-Dimer POC ABG pH POC ABG pCO2 POC ABG pO2 Sodium Potassium 6.0 H Chloride Carbon Dioxide 15 L BUN 57 H Creatinine 4.3 H Glucose 111 H POC Glucose Lactic Acid 5.80 H* Uric Acid Calcium Total Bilirubin 1.80 H AST 212 H ALT 94 H Total Creatine Kinase CK-MB (CK-2) CK-MB (CK-2) Rel Index Troponin T C-Reactive Protein NT-Pro-B Natriuret Pep 49039 H Total Protein Albumin 3.2 L LDL Cholesterol Direct Urine WBC (Auto) 08/21/18 08/21/18 08/21/18 05:08 05:58 05:58 WBC RBC Hgb Hct MCV RDW Plt Count Lymph % (Auto) [facility] % (Auto) Eos % (Auto) Baso % (Auto) Lymph # Seg Neuts % (Manual) Lymphocytes % (Manual) Monocytes % (Manual) Basophils % (Manual) Nucleated RBC % Seg Neutrophils # Man Lymphocytes # (Manual) Monocytes # (Manual) PT INR D-Dimer POC ABG pH 7.164 L POC ABG pCO2 46.3 H POC ABG pO2 229 H Sodium Potassium Chloride Carbon Dioxide BUN Creatinine Glucose POC Glucose Lactic Acid 5.10 H* Uric Acid Calcium Total Bilirubin AST ALT Total Creatine Kinase CK-MB (CK-2) CK-MB (CK-2) Rel Index Troponin T 0.035 H C-Reactive Protein NT-Pro-B Natriuret Pep Total Protein Albumin LDL Cholesterol Direct Urine WBC (Auto) 08/21/18 08/21/18 08/21/18 06:45 06:45 06:53 WBC RBC Hgb Hct MCV RDW Plt Count Lymph % (Auto) [facility] % (Auto) Eos % (Auto) Baso % (Auto) Lymph # Seg Neuts % (Manual) Lymphocytes % (Manual) Monocytes % (Manual) Basophils % (Manual) Nucleated RBC % Seg Neutrophils # Man Lymphocytes # (Manual) Monocytes # (Manual) PT INR D-Dimer POC ABG pH 7.160 L POC ABG pCO2 46.8 H POC ABG pO2 Sodium Potassium Chloride Carbon Dioxide BUN Creatinine Glucose POC Glucose Lactic Acid 4.70 H* Uric Acid Calcium Total Bilirubin AST ALT Total Creatine Kinase 234 H CK-MB (CK-2) 9.1 H CK-MB (CK-2) Rel Index Troponin T 0.032 H C-Reactive Protein NT-Pro-B Natriuret Pep Total Protein Albumin LDL Cholesterol Direct Urine WBC (Auto) 08/21/18 08/21/18 08/21/18 10:43 10:43 10:45 WBC RBC Hgb Hct MCV RDW Plt Count Lymph % (Auto) [facility] % (Auto) Eos % (Auto) Baso % (Auto) Lymph # Seg Neuts % (Manual) Lymphocytes % (Manual) Monocytes % (Manual) Basophils % (Manual) Nucleated RBC % Seg Neutrophils # Man Lymphocytes # (Manual) Monocytes # (Manual) PT INR D-Dimer POC ABG pH POC ABG pCO2 POC ABG pO2 Sodium Potassium Chloride Carbon Dioxide 17 L BUN 59 H Creatinine 4.2 H Glucose POC Glucose Lactic Acid 3.70 H* Uric Acid Calcium Total Bilirubin AST ALT Total Creatine Kinase 222 H CK-MB (CK-2) 9.2 H CK-MB (CK-2) Rel Index 4.1 H Troponin T 0.044 H D C-Reactive Protein NT-Pro-B Natriuret Pep Total Protein Albumin LDL Cholesterol Direct Urine WBC (Auto) 08/21/18 08/21/18 08/21/18 11:38 12:33 15:03 WBC RBC Hgb Hct MCV RDW Plt Count Lymph % (Auto) [facility] % (Auto) Eos % (Auto) Baso % (Auto) Lymph # Seg Neuts % (Manual) Lymphocytes % (Manual) Monocytes % (Manual) Basophils % (Manual) Nucleated RBC % Seg Neutrophils # Man Lymphocytes # (Manual) Monocytes # (Manual) PT INR D-Dimer POC ABG pH 7.250 L POC ABG pCO2 POC ABG pO2 121 H Sodium Potassium Chloride Carbon Dioxide BUN Creatinine Glucose POC Glucose 129 H Lactic Acid Uric Acid Calcium Total Bilirubin AST ALT Total Creatine Kinase CK-MB (CK-2) CK-MB (CK-2) Rel Index Troponin T C-Reactive Protein NT-Pro-B Natriuret Pep Total Protein Albumin LDL Cholesterol Direct Urine WBC (Auto) 13.0 H 08/21/18 08/22/18 08/22/18 15:47 00:01 04:27 WBC RBC Hgb Hct MCV RDW Plt Count Lymph % (Auto) [facility] % (Auto) Eos % (Auto) Baso % (Auto) Lymph # Seg Neuts % (Manual) Lymphocytes % (Manual) Monocytes % (Manual) Basophils % (Manual) Nucleated RBC % Seg Neutrophils # Man Lymphocytes # (Manual) Monocytes # (Manual) PT INR D-Dimer POC ABG pH 7.457 H POC ABG pCO2 POC ABG pO2 117 H Sodium Potassium Chloride Carbon Dioxide BUN Creatinine Glucose POC Glucose 211 H Lactic Acid 2.70 H* Uric Acid Calcium Total Bilirubin AST ALT Total Creatine Kinase CK-MB (CK-2) CK-MB (CK-2) Rel Index Troponin T C-Reactive Protein NT-Pro-B Natriuret Pep Total Protein Albumin LDL Cholesterol Direct Urine WBC (Auto) 08/22/18 08/22/18 08/22/18 05:46 06:10 06:10 WBC RBC 2.27 L Hgb 7.0 L Hct 21.2 L MCV RDW 16.8 H Plt Count 129 L Lymph % (Auto) [facility] % (Auto) Eos % (Auto) Baso % (Auto) Lymph # Seg Neuts % (Manual) 95.0 H Lymphocytes % (Manual) 1.0 L Monocytes % (Manual) Basophils % (Manual) Nucleated RBC % 1.0 H Seg Neutrophils # Man 7.8 H Lymphocytes # (Manual) 0.1 L Monocytes # (Manual) PT INR D-Dimer POC ABG pH POC ABG pCO2 POC ABG pO2 Sodium Potassium Chloride Carbon Dioxide 20 L BUN 63 H Creatinine 3.9 H Glucose 205 H POC Glucose 223 H Lactic Acid Uric Acid Calcium Total Bilirubin AST ALT Total Creatine Kinase CK-MB (CK-2) CK-MB (CK-2) Rel Index Troponin T C-Reactive Protein NT-Pro-B Natriuret Pep Total Protein Albumin LDL Cholesterol Direct Urine WBC (Auto) 08/22/18 08/22/18 08/22/18 06:10 12:57 16:21 WBC RBC Hgb Hct MCV RDW Plt Count Lymph % (Auto) [facility] % (Auto) Eos % (Auto) Baso % (Auto) Lymph # Seg Neuts % (Manual) Lymphocytes % (Manual) Monocytes % (Manual) Basophils % (Manual) Nucleated RBC % Seg Neutrophils # Man Lymphocytes # (Manual) Monocytes # (Manual) PT INR D-Dimer POC ABG pH 7.477 H POC ABG pCO2 POC ABG pO2 Sodium Potassium Chloride Carbon Dioxide BUN Creatinine Glucose POC Glucose 166 H Lactic Acid Uric Acid Calcium Total Bilirubin AST ALT Total Creatine Kinase CK-MB (CK-2) CK-MB (CK-2) Rel Index Troponin T C-Reactive Protein 23.60 H NT-Pro-B Natriuret Pep Total Protein Albumin LDL Cholesterol Direct Urine WBC (Auto) 08/22/18 08/22/18 08/23/18 17:41 23:42 04:38 WBC RBC Hgb Hct MCV RDW Plt Count Lymph % (Auto) [facility] % (Auto) Eos % (Auto) Baso % (Auto) Lymph # Seg Neuts % (Manual) Lymphocytes % (Manual) Monocytes % (Manual) Basophils % (Manual) Nucleated RBC % Seg Neutrophils # Man Lymphocytes # (Manual) Monocytes # (Manual) PT INR D-Dimer POC ABG pH 7.249 L POC ABG pCO2 53.5 H POC ABG pO2 73 L Sodium Potassium Chloride Carbon Dioxide BUN Creatinine Glucose POC Glucose 131 H 168 H Lactic Acid Uric Acid Calcium Total Bilirubin AST ALT Total Creatine Kinase CK-MB (CK-2) CK-MB (CK-2) Rel Index Troponin T C-Reactive Protein NT-Pro-B Natriuret Pep Total Protein Albumin LDL Cholesterol Direct Urine WBC (Auto) 08/23/18 08/23/18 08/23/18 04:52 04:52 04:52 WBC RBC 2.39 L Hgb 7.5 L Hct 22.8 L MCV 95 H RDW 17.6 H Plt Count Lymph % (Auto) [facility] % (Auto) Eos % (Auto) Baso % (Auto) Lymph # Seg Neuts % (Manual) Lymphocytes % (Manual) Monocytes % (Manual) Basophils % (Manual) Nucleated RBC % Seg Neutrophils # Man Lymphocytes # (Manual) Monocytes # (Manual) PT INR D-Dimer POC ABG pH POC ABG pCO2 POC ABG pO2 Sodium Potassium 5.6 H 5.6 H Chloride Carbon Dioxide 21 L BUN 71 H 72 H Creatinine 4.1 H 4.0 H Glucose 141 H 140 H POC Glucose Lactic Acid Uric Acid Calcium 8.3 L 8.2 L Total Bilirubin AST 247 H ALT 220 H Total Creatine Kinase CK-MB (CK-2) CK-MB (CK-2) Rel Index Troponin T C-Reactive Protein NT-Pro-B Natriuret Pep Total Protein Albumin 2.8 L LDL Cholesterol Direct Urine WBC (Auto) 08/23/18 08/23/18 08/23/18 05:50 08:38 12:21 WBC RBC Hgb Hct MCV RDW Plt Count Lymph % (Auto) [facility] % (Auto) Eos % (Auto) Baso % (Auto) Lymph # Seg Neuts % (Manual) Lymphocytes % (Manual) Monocytes % (Manual) Basophils % (Manual) Nucleated RBC % Seg Neutrophils # Man Lymphocytes # (Manual) Monocytes # (Manual) PT INR D-Dimer POC ABG pH POC ABG pCO2 POC ABG pO2 Sodium Potassium Chloride Carbon Dioxide BUN Creatinine Glucose POC Glucose 160 H 177 H Lactic Acid Uric Acid Calcium Total Bilirubin AST ALT Total Creatine Kinase CK-MB (CK-2) CK-MB (CK-2) Rel Index Troponin T C-Reactive Protein NT-Pro-B Natriuret Pep 61341 H Total Protein Albumin LDL Cholesterol Direct Urine WBC (Auto) 08/23/18 08/23/18 08/23/18 12:36 14:24 18:05 WBC RBC Hgb Hct MCV RDW Plt Count Lymph % (Auto) [facility] % (Auto) Eos % (Auto) Baso % (Auto) Lymph # Seg Neuts % (Manual) Lymphocytes % (Manual) Monocytes % (Manual) Basophils % (Manual) Nucleated RBC % Seg Neutrophils # Man Lymphocytes # (Manual) Monocytes # (Manual) PT INR D-Dimer POC ABG pH 7.337 L POC ABG pCO2 POC ABG pO2 145 H Sodium 136 L Potassium 5.2 H Chloride Carbon Dioxide BUN 76 H Creatinine 4.2 H Glucose 158 H POC Glucose 169 H Lactic Acid Uric Acid Calcium 8.1 L Total Bilirubin AST ALT Total Creatine Kinase CK-MB (CK-2) CK-MB (CK-2) Rel Index Troponin T C-Reactive Protein NT-Pro-B Natriuret Pep Total Protein Albumin LDL Cholesterol Direct Urine WBC (Auto) 08/23/18 08/23/18 08/24/18 22:43 23:42 05:16 WBC RBC Hgb Hct MCV RDW Plt Count Lymph % (Auto) [facility] % (Auto) Eos % (Auto) Baso % (Auto) Lymph # Seg Neuts % (Manual) Lymphocytes % (Manual) Monocytes % (Manual) Basophils % (Manual) Nucleated RBC % Seg Neutrophils # Man Lymphocytes # (Manual) Monocytes # (Manual) PT INR D-Dimer POC ABG pH POC ABG pCO2 POC ABG pO2 Sodium 136 L Potassium 5.3 H 5.2 H Chloride 97.9 L Carbon Dioxide BUN 80 H 86 H Creatinine 4.0 H 4.3 H Glucose 164 H 202 H POC Glucose 183 H Lactic Acid Uric Acid Calcium 7.9 L Total Bilirubin AST ALT Total Creatine Kinase CK-MB (CK-2) CK-MB (CK-2) Rel Index Troponin T C-Reactive Protein NT-Pro-B Natriuret Pep Total Protein Albumin LDL Cholesterol Direct Urine WBC (Auto) 08/24/18 08/24/18 08/24/18 05:21 05:29 10:10 WBC RBC 2.47 L Hgb 7.5 L Hct 23.3 L MCV RDW 17.5 H Plt Count 118 L Lymph % (Auto) [facility] % (Auto) Eos % (Auto) Baso % (Auto) Lymph # Seg Neuts % (Manual) 92.0 H Lymphocytes % (Manual) 2.0 L Monocytes % (Manual) Basophils % (Manual) Nucleated RBC % Seg Neutrophils # Man 8.8 H Lymphocytes # (Manual) 0.2 L Monocytes # (Manual) PT INR D-Dimer POC ABG pH 7.243 L POC ABG pCO2 56.8 H POC ABG pO2 Sodium Potassium Chloride Carbon Dioxide BUN Creatinine Glucose POC Glucose 209 H Lactic Acid Uric Acid Calcium Total Bilirubin AST ALT Total Creatine Kinase CK-MB (CK-2) CK-MB (CK-2) Rel Index Troponin T C-Reactive Protein NT-Pro-B Natriuret Pep Total Protein Albumin LDL Cholesterol Direct Urine WBC (Auto) 08/24/18 08/24/18 08/24/18 10:10 11:19 13:41 WBC RBC Hgb Hct MCV RDW Plt Count Lymph % (Auto) [facility] % (Auto) Eos % (Auto) Baso % (Auto) Lymph # Seg Neuts % (Manual) Lymphocytes % (Manual) Monocytes % (Manual) Basophils % (Manual) Nucleated RBC % Seg Neutrophils # Man Lymphocytes # (Manual) Monocytes # (Manual) PT INR D-Dimer 1978.25 H POC ABG pH POC ABG pCO2 POC ABG pO2 Sodium Potassium Chloride Carbon Dioxide BUN Creatinine Glucose POC Glucose 212 H Lactic Acid Uric Acid Calcium Total Bilirubin AST ALT Total Creatine Kinase CK-MB (CK-2) CK-MB (CK-2) Rel Index Troponin T C-Reactive Protein NT-Pro-B Natriuret Pep 64290 H Total Protein Albumin LDL Cholesterol Direct Urine WBC (Auto) 08/24/18 08/24/18 08/24/18 13:41 14:27 17:23 WBC RBC Hgb Hct MCV RDW Plt Count Lymph % (Auto) [facility] % (Auto) Eos % (Auto) Baso % (Auto) Lymph # Seg Neuts % (Manual) Lymphocytes % (Manual) Monocytes % (Manual) Basophils % (Manual) Nucleated RBC % Seg Neutrophils # Man Lymphocytes # (Manual) Monocytes # (Manual) PT INR D-Dimer POC ABG pH POC ABG pCO2 POC ABG pO2 Sodium 136 L Potassium 5.1 H Chloride 97.8 L Carbon Dioxide BUN 90 H Creatinine 4.1 H Glucose 157 H POC Glucose 155 H Lactic Acid Uric Acid Calcium 8.0 L Total Bilirubin AST ALT Total Creatine Kinase CK-MB (CK-2) CK-MB (CK-2) Rel Index Troponin T C-Reactive Protein 9.00 H NT-Pro-B Natriuret Pep Total Protein Albumin LDL Cholesterol Direct Urine WBC (Auto) 08/25/18 08/25/18 08/25/18 00:38 05:22 05:57 WBC RBC Hgb Hct MCV RDW Plt Count Lymph % (Auto) [facility] % (Auto) Eos % (Auto) Baso % (Auto) Lymph # Seg Neuts % (Manual) Lymphocytes % (Manual) Monocytes % (Manual) Basophils % (Manual) Nucleated RBC % Seg Neutrophils # Man Lymphocytes # (Manual) Monocytes # (Manual) PT INR D-Dimer POC ABG pH 7.238 L POC ABG pCO2 58.2 H POC ABG pO2 Sodium Potassium 5.4 H Chloride Carbon Dioxide BUN 98 H Creatinine 4.3 H Glucose 217 H POC Glucose 176 H Lactic Acid Uric Acid Calcium 8.3 L Total Bilirubin AST ALT Total Creatine Kinase CK-MB (CK-2) CK-MB (CK-2) Rel Index Troponin T C-Reactive Protein NT-Pro-B Natriuret Pep 16118 H Total Protein Albumin LDL Cholesterol Direct Urine WBC (Auto) 08/25/18 08/25/18 08/25/18 06:56 08:59 11:38 WBC RBC Hgb Hct MCV RDW Plt Count Lymph % (Auto) [facility] % (Auto) Eos % (Auto) Baso % (Auto) Lymph # Seg Neuts % (Manual) Lymphocytes % (Manual) Monocytes % (Manual) Basophils % (Manual) Nucleated RBC % Seg Neutrophils # Man Lymphocytes # (Manual) Monocytes # (Manual) PT INR D-Dimer POC ABG pH 7.348 L POC ABG pCO2 48.6 H POC ABG pO2 Sodium Potassium Chloride Carbon Dioxide BUN Creatinine Glucose POC Glucose 247 H 235 H Lactic Acid Uric Acid Calcium Total Bilirubin AST ALT Total Creatine Kinase CK-MB (CK-2) CK-MB (CK-2) Rel Index Troponin T C-Reactive Protein NT-Pro-B Natriuret Pep Total Protein Albumin LDL Cholesterol Direct Urine WBC (Auto) 08/25/18 08/25/18 08/25/18 12:29 16:43 16:43 WBC 14.7 H RBC 2.90 L Hgb 8.9 L Hct 27.4 L MCV 95 H RDW 17.3 H Plt Count 119 L Lymph % (Auto) [facility] % (Auto) Eos % (Auto) Baso % (Auto) Lymph # Seg Neuts % (Manual) 94.0 H Lymphocytes % (Manual) 2.0 L Monocytes % (Manual) Basophils % (Manual) Nucleated RBC % Seg Neutrophils # Man 13.8 H Lymphocytes # (Manual) 0.3 L Monocytes # (Manual) PT 15.6 H INR 1.27 H D-Dimer POC ABG pH POC ABG pCO2 POC ABG pO2 Sodium Potassium Chloride Carbon Dioxide BUN Creatinine Glucose POC Glucose 237 H Lactic Acid Uric Acid Calcium Total Bilirubin AST ALT Total Creatine Kinase CK-MB (CK-2) CK-MB (CK-2) Rel Index Troponin T C-Reactive Protein NT-Pro-B Natriuret Pep Total Protein Albumin LDL Cholesterol Direct Urine WBC (Auto) 08/25/18 08/26/18 08/26/18 17:22 00:16 04:56 WBC RBC Hgb Hct MCV RDW Plt Count Lymph % (Auto) [facility] % (Auto) Eos % (Auto) Baso % (Auto) Lymph # Seg Neuts % (Manual) Lymphocytes % (Manual) Monocytes % (Manual) Basophils % (Manual) Nucleated RBC % Seg Neutrophils # Man Lymphocytes # (Manual) Monocytes # (Manual) PT INR D-Dimer POC ABG pH POC ABG pCO2 45.2 H POC ABG pO2 Sodium Potassium Chloride Carbon Dioxide BUN Creatinine Glucose POC Glucose 200 H 180 H Lactic Acid Uric Acid Calcium Total Bilirubin AST ALT Total Creatine Kinase CK-MB (CK-2) CK-MB (CK-2) Rel Index Troponin T C-Reactive Protein NT-Pro-B Natriuret Pep Total Protein Albumin LDL Cholesterol Direct Urine WBC (Auto) 08/26/18 08/26/18 08/26/18 05:53 06:20 08:48 WBC RBC Hgb Hct MCV RDW Plt Count Lymph % (Auto) [facility] % (Auto) Eos % (Auto) Baso % (Auto) Lymph # Seg Neuts % (Manual) Lymphocytes % (Manual) Monocytes % (Manual) Basophils % (Manual) Nucleated RBC % Seg Neutrophils # Man Lymphocytes # (Manual) Monocytes # (Manual) PT INR D-Dimer POC ABG pH POC ABG pCO2 POC ABG pO2 Sodium Potassium Chloride Carbon Dioxide BUN 106 H Creatinine 3.9 H Glucose 137 H POC Glucose 131 H 126 H Lactic Acid Uric Acid Calcium 8.1 L Total Bilirubin AST ALT Total Creatine Kinase CK-MB (CK-2) CK-MB (CK-2) Rel Index Troponin T C-Reactive Protein NT-Pro-B Natriuret Pep > 81996 H Total Protein Albumin LDL Cholesterol Direct Urine WBC (Auto) 08/26/18 08/26/18 08/26/18 11:39 17:33 18:02 WBC RBC Hgb Hct MCV RDW Plt Count Lymph % (Auto) [facility] % (Auto) Eos % (Auto) Baso % (Auto) Lymph # Seg Neuts % (Manual) Lymphocytes % (Manual) Monocytes % (Manual) Basophils % (Manual) Nucleated RBC % Seg Neutrophils # Man Lymphocytes # (Manual) Monocytes # (Manual) PT INR D-Dimer POC ABG pH POC ABG pCO2 POC ABG pO2 58 L Sodium Potassium Chloride Carbon Dioxide BUN Creatinine Glucose POC Glucose 156 H 173 H Lactic Acid Uric Acid Calcium Total Bilirubin AST ALT Total Creatine Kinase CK-MB (CK-2) CK-MB (CK-2) Rel Index Troponin T C-Reactive Protein NT-Pro-B Natriuret Pep Total Protein Albumin LDL Cholesterol Direct Urine WBC (Auto) 08/26/18 08/27/18 08/27/18 23:12 04:59 11:51 WBC RBC Hgb Hct MCV RDW Plt Count Lymph % (Auto) [facility] % (Auto) Eos % (Auto) Baso % (Auto) Lymph # Seg Neuts % (Manual) Lymphocytes % (Manual) Monocytes % (Manual) Basophils % (Manual) Nucleated RBC % Seg Neutrophils # Man Lymphocytes # (Manual) Monocytes # (Manual) PT INR D-Dimer POC ABG pH 7.563 H POC ABG pCO2 < 30 L POC ABG pO2 69 L Sodium Potassium Chloride Carbon Dioxide BUN Creatinine Glucose POC Glucose 130 H 107 H Lactic Acid Uric Acid Calcium Total Bilirubin AST ALT Total Creatine Kinase CK-MB (CK-2) CK-MB (CK-2) Rel Index Troponin T C-Reactive Protein NT-Pro-B Natriuret Pep Total Protein Albumin LDL Cholesterol Direct Urine WBC (Auto) 08/27/18 08/27/18 08/27/18 11:58 11:58 11:58 WBC RBC 2.66 L Hgb 8.1 L Hct 24.7 L MCV RDW 16.7 H Plt Count Lymph % (Auto) [facility] % (Auto) Eos % (Auto) Baso % (Auto) Lymph # Seg Neuts % (Manual) Lymphocytes % (Manual) Monocytes % (Manual) Basophils % (Manual) Nucleated RBC % Seg Neutrophils # Man Lymphocytes # (Manual) Monocytes # (Manual) PT INR D-Dimer POC ABG pH POC ABG pCO2 POC ABG pO2 Sodium Potassium Chloride Carbon Dioxide BUN 71 H Creatinine 2.9 H Glucose POC Glucose Lactic Acid Uric Acid Calcium 7.6 L Total Bilirubin AST ALT Total Creatine Kinase CK-MB (CK-2) CK-MB (CK-2) Rel Index Troponin T C-Reactive Protein NT-Pro-B Natriuret Pep > 76911 H Total Protein 6.1 L Albumin 2.4 L LDL Cholesterol Direct Urine WBC (Auto) 08/28/18 08/28/18 08/28/18 04:38 04:49 04:49 WBC RBC 2.65 L Hgb 8.3 L Hct 25.3 L MCV 96 H RDW 17.3 H Plt Count 83 L Lymph % (Auto) [facility] % (Auto) Eos % (Auto) Baso % (Auto) Lymph # Seg Neuts % (Manual) Lymphocytes % (Manual) Monocytes % (Manual) Basophils % (Manual) Nucleated RBC % Seg Neutrophils # Man Lymphocytes # (Manual) Monocytes # (Manual) PT INR D-Dimer POC ABG pH POC ABG pCO2 POC ABG pO2 112 H Sodium Potassium Chloride Carbon Dioxide BUN Creatinine Glucose POC Glucose Lactic Acid Uric Acid Calcium Total Bilirubin AST ALT Total Creatine Kinase CK-MB (CK-2) CK-MB (CK-2) Rel Index Troponin T C-Reactive Protein NT-Pro-B Natriuret Pep > 35972 H Total Protein Albumin LDL Cholesterol Direct Urine WBC (Auto) 08/28/18 08/28/18 08/29/18 04:49 14:24 00:11 WBC RBC Hgb Hct MCV RDW Plt Count Lymph % (Auto) [facility] % (Auto) Eos % (Auto) Baso % (Auto) Lymph # Seg Neuts % (Manual) Lymphocytes % (Manual) Monocytes % (Manual) Basophils % (Manual) Nucleated RBC % Seg Neutrophils # Man Lymphocytes # (Manual) Monocytes # (Manual) PT INR D-Dimer POC ABG pH 7.278 L POC ABG pCO2 57.9 H POC ABG pO2 79 L Sodium Potassium Chloride Carbon Dioxide BUN 69 H Creatinine 2.4 H Glucose POC Glucose 171 H Lactic Acid Uric Acid Calcium 7.7 L Total Bilirubin AST ALT Total Creatine Kinase CK-MB (CK-2) CK-MB (CK-2) Rel Index Troponin T C-Reactive Protein NT-Pro-B Natriuret Pep Total Protein 5.4 L Albumin 2.2 L LDL Cholesterol Direct Urine WBC (Auto) 08/29/18 08/29/18 08/29/18 04:39 05:35 05:35 WBC 13.6 H RBC 3.09 L Hgb 9.4 L Hct 29.5 L MCV 96 H RDW 17.9 H Plt Count 127 L Lymph % (Auto) [place] % (Auto) Eos % (Auto) Baso % (Auto) Lymph # Seg Neuts % (Manual) Lymphocytes % (Manual) Monocytes % (Manual) Basophils % (Manual) Nucleated RBC % Seg Neutrophils # Man Lymphocytes # (Manual) Monocytes # (Manual) PT INR D-Dimer POC ABG pH 7.312 L POC ABG pCO2 57.6 H POC ABG pO2 79 L Sodium Potassium Chloride Carbon Dioxide BUN 42 H Creatinine 1.9 H Glucose 107 H POC Glucose Lactic Acid Uric Acid Calcium Total Bilirubin AST ALT Total Creatine Kinase CK-MB (CK-2) CK-MB (CK-2) Rel Index Troponin T C-Reactive Protein NT-Pro-B Natriuret Pep Total Protein Albumin LDL Cholesterol Direct Urine WBC (Auto) 08/29/18 08/29/18 08/29/18 05:48 11:37 15:32 WBC RBC Hgb Hct MCV RDW Plt Count Lymph % (Auto) [place] % (Auto) Eos % (Auto) Baso % (Auto) Lymph # Seg Neuts % (Manual) Lymphocytes % (Manual) Monocytes % (Manual) Basophils % (Manual) Nucleated RBC % Seg Neutrophils # Man Lymphocytes # (Manual) Monocytes # (Manual) PT INR D-Dimer POC ABG pH POC ABG pCO2 47.0 H POC ABG pO2 78 L Sodium Potassium Chloride Carbon Dioxide BUN Creatinine Glucose POC Glucose 114 H 116 H Lactic Acid Uric Acid Calcium Total Bilirubin AST ALT Total Creatine Kinase CK-MB (CK-2) CK-MB (CK-2) Rel Index Troponin T C-Reactive Protein NT-Pro-B Natriuret Pep Total Protein Albumin LDL Cholesterol Direct Urine WBC (Auto) 08/29/18 08/30/18 08/30/18 17:28 00:17 04:41 WBC RBC Hgb Hct MCV RDW Plt Count Lymph % (Auto) [facility] % (Auto) Eos % (Auto) Baso % (Auto) Lymph # Seg Neuts % (Manual) Lymphocytes % (Manual) Monocytes % (Manual) Basophils % (Manual) Nucleated RBC % Seg Neutrophils # Man Lymphocytes # (Manual) Monocytes # (Manual) PT INR D-Dimer POC ABG pH POC ABG pCO2 48.1 H POC ABG pO2 Sodium Potassium Chloride Carbon Dioxide BUN Creatinine Glucose POC Glucose 174 H 132 H Lactic Acid Uric Acid Calcium Total Bilirubin AST ALT Total Creatine Kinase CK-MB (CK-2) CK-MB (CK-2) Rel Index Troponin T C-Reactive Protein NT-Pro-B Natriuret Pep Total Protein Albumin LDL Cholesterol Direct Urine WBC (Auto) 08/30/18 08/30/1819 05:17 05:34 06:10 WBC RBC 2.68 L Hgb 8.2 L Hct 25.6 L MCV 96 H RDW 17.2 H Plt Count 118 L Lymph % (Auto) [facility] % (Auto) Eos % (Auto) Baso % (Auto) Lymph # Seg Neuts % (Manual) Lymphocytes % (Manual) Monocytes % (Manual) Basophils % (Manual) Nucleated RBC % Seg Neutrophils # Man Lymphocytes # (Manual) Monocytes # (Manual) PT INR D-Dimer POC ABG pH POC ABG pCO2 POC ABG pO2 Sodium Potassium Chloride Carbon Dioxide BUN 54 H Creatinine 2.4 H Glucose 120 H POC Glucose 141 H Lactic Acid Uric Acid Calcium Total Bilirubin AST ALT Total Creatine Kinase CK-MB (CK-2) CK-MB (CK-2) Rel Index Troponin T C-Reactive Protein NT-Pro-B Natriuret Pep Total Protein Albumin LDL Cholesterol Direct Urine WBC (Auto) 08/30/18 08/30/18 08/30/18 13:11 18:11 23:55 WBC RBC Hgb Hct MCV RDW Plt Count Lymph % (Auto) [facility] % (Auto) Eos % (Auto) Baso % (Auto) Lymph # Seg Neuts % (Manual) Lymphocytes % (Manual) Monocytes % (Manual) Basophils % (Manual) Nucleated RBC % Seg Neutrophils # Man Lymphocytes # (Manual) Monocytes # (Manual) PT INR D-Dimer POC ABG pH POC ABG pCO2 POC ABG pO2 Sodium Potassium Chloride Carbon Dioxide BUN Creatinine Glucose POC Glucose 167 H 144 H 144 H Lactic Acid Uric Acid Calcium Total Bilirubin AST ALT Total Creatine Kinase CK-MB (CK-2) CK-MB (CK-2) Rel Index Troponin T C-Reactive Protein NT-Pro-B Natriuret Pep Total Protein Albumin LDL Cholesterol Direct Urine WBC (Auto) 08/31/18 08/31/18 08/31/18 05:07 05:07 05:44 WBC RBC 2.62 L Hgb 8.1 L Hct 25.0 L MCV 96 H RDW 17.5 H Plt Count 128 L Lymph % (Auto) [facility] % (Auto) Eos % (Auto) Baso % (Auto) Lymph # Seg Neuts % (Manual) Lymphocytes % (Manual) Monocytes % (Manual) Basophils % (Manual) Nucleated RBC % Seg Neutrophils # Man Lymphocytes # (Manual) Monocytes # (Manual) PT INR D-Dimer POC ABG pH POC ABG pCO2 POC ABG pO2 Sodium Potassium Chloride Carbon Dioxide BUN 58 H Creatinine 2.3 H Glucose 103 H POC Glucose 109 H Lactic Acid Uric Acid Calcium Total Bilirubin AST ALT Total Creatine Kinase CK-MB (CK-2) CK-MB (CK-2) Rel Index Troponin T C-Reactive Protein NT-Pro-B Natriuret Pep Total Protein Albumin LDL Cholesterol Direct Urine WBC (Auto) 08/31/18 08/31/18 08/31/18 11:26 13:54 19:05 WBC RBC Hgb Hct MCV RDW Plt Count Lymph % (Auto) [facility] % (Auto) Eos % (Auto) Baso % (Auto) Lymph # Seg Neuts % (Manual) Lymphocytes % (Manual) Monocytes % (Manual) Basophils % (Manual) Nucleated RBC % Seg Neutrophils # Man Lymphocytes # (Manual) Monocytes # (Manual) PT INR D-Dimer POC ABG pH POC ABG pCO2 POC ABG pO2 Sodium Potassium Chloride Carbon Dioxide BUN Creatinine Glucose POC Glucose 117 H 186 H Lactic Acid Uric Acid 9.6 H Calcium Total Bilirubin AST ALT Total Creatine Kinase CK-MB (CK-2) CK-MB (CK-2) Rel Index Troponin T C-Reactive Protein NT-Pro-B Natriuret Pep Total Protein Albumin LDL Cholesterol Direct Urine WBC (Auto) 08/31/18 09/01/18 09/01/18 23:50 06:27 09:21 WBC RBC 2.74 L Hgb 8.6 L Hct 25.8 L MCV RDW 17.3 H Plt Count Lymph % (Auto) [facility] % (Auto) Eos % (Auto) Baso % (Auto) Lymph # Seg Neuts % (Manual) Lymphocytes % (Manual) Monocytes % (Manual) Basophils % (Manual) Nucleated RBC % Seg Neutrophils # Man Lymphocytes # (Manual) Monocytes # (Manual) PT INR D-Dimer POC ABG pH POC ABG pCO2 POC ABG pO2 Sodium Potassium Chloride Carbon Dioxide BUN Creatinine Glucose POC Glucose 141 H 62 L Lactic Acid Uric Acid Calcium Total Bilirubin AST ALT Total Creatine Kinase CK-MB (CK-2) CK-MB (CK-2) Rel Index Troponin T C-Reactive Protein NT-Pro-B Natriuret Pep Total Protein Albumin LDL Cholesterol Direct Urine WBC (Auto) 09/01/18 09/01/18 09/01/18 09:21 12:27 17:51 WBC RBC Hgb Hct MCV RDW Plt Count Lymph % (Auto) [facility] % (Auto) Eos % (Auto) Baso % (Auto) Lymph # Seg Neuts % (Manual) Lymphocytes % (Manual) Monocytes % (Manual) Basophils % (Manual) Nucleated RBC % Seg Neutrophils # Man Lymphocytes # (Manual) Monocytes # (Manual) PT INR D-Dimer POC ABG pH POC ABG pCO2 POC ABG pO2 Sodium Potassium 3.0 L D Chloride 109.8 H Carbon Dioxide BUN 45 H Creatinine 1.7 H Glucose POC Glucose 106 H 108 H Lactic Acid Uric Acid Calcium 7.1 L D Total Bilirubin AST ALT Total Creatine Kinase CK-MB (CK-2) CK-MB (CK-2) Rel Index Troponin T C-Reactive Protein NT-Pro-B Natriuret Pep Total Protein Albumin LDL Cholesterol Direct Urine WBC (Auto) 09/02/18 09/02/18 09/02/18 05:16 05:16 12:01 WBC RBC 2.60 L Hgb 8.1 L Hct 24.8 L MCV 95 H RDW 17.1 H Plt Count Lymph % (Auto) [facility] % (Auto) Eos % (Auto) Baso % (Auto) Lymph # Seg Neuts % (Manual) Lymphocytes % (Manual) Monocytes % (Manual) Basophils % (Manual) Nucleated RBC % Seg Neutrophils # Man Lymphocytes # (Manual) Monocytes # (Manual) PT INR D-Dimer POC ABG pH POC ABG pCO2 POC ABG pO2 Sodium Potassium Chloride Carbon Dioxide BUN 49 H Creatinine 1.8 H Glucose 107 H POC Glucose 124 H Lactic Acid Uric Acid Calcium 8.1 L Total Bilirubin AST ALT Total Creatine Kinase CK-MB (CK-2) CK-MB (CK-2) Rel Index Troponin T C-Reactive Protein NT-Pro-B Natriuret Pep Total Protein Albumin LDL Cholesterol Direct Urine WBC (Auto) 09/02/18 09/02/18 09/03/18 18:38 23:12 08:22 WBC RBC Hgb Hct MCV RDW Plt Count Lymph % (Auto) [facility] % (Auto) Eos % (Auto) Baso % (Auto) Lymph # Seg Neuts % (Manual) Lymphocytes % (Manual) Monocytes % (Manual) Basophils % (Manual) Nucleated RBC % Seg Neutrophils # Man Lymphocytes # (Manual) Monocytes # (Manual) PT INR D-Dimer POC ABG pH POC ABG pCO2 POC ABG pO2 Sodium Potassium Chloride Carbon Dioxide BUN Creatinine Glucose POC Glucose 164 H 128 H 115 H Lactic Acid Uric Acid Calcium Total Bilirubin AST ALT Total Creatine Kinase CK-MB (CK-2) CK-MB (CK-2) Rel Index Troponin T C-Reactive Protein NT-Pro-B Natriuret Pep Total Protein Albumin LDL Cholesterol Direct Urine WBC (Auto) 09/03/18 09/03/18 09/03/18 11:48 16:37 20:48 WBC RBC Hgb Hct MCV RDW Plt Count Lymph % (Auto) [facility] % (Auto) Eos % (Auto) Baso % (Auto) Lymph # Seg Neuts % (Manual) Lymphocytes % (Manual) Monocytes % (Manual) Basophils % (Manual) Nucleated RBC % Seg Neutrophils # Man Lymphocytes # (Manual) Monocytes # (Manual) PT INR D-Dimer POC ABG pH POC ABG pCO2 POC ABG pO2 Sodium Potassium Chloride Carbon Dioxide BUN Creatinine Glucose POC Glucose 203 H 146 H 150 H Lactic Acid Uric Acid Calcium Total Bilirubin AST ALT Total Creatine Kinase CK-MB (CK-2) CK-MB (CK-2) Rel Index Troponin T C-Reactive Protein NT-Pro-B Natriuret Pep Total Protein Albumin LDL Cholesterol Direct Urine WBC (Auto) 09/04/18 09/04/18 09/04/18 08:29 12:08 13:32 WBC RBC Hgb Hct MCV RDW Plt Count Lymph % (Auto) [facility] % (Auto) Eos % (Auto) Baso % (Auto) Lymph # Seg Neuts % (Manual) Lymphocytes % (Manual) Monocytes % (Manual) Basophils % (Manual) Nucleated RBC % Seg Neutrophils # Man Lymphocytes # (Manual) Monocytes # (Manual) PT INR D-Dimer POC ABG pH POC ABG pCO2 POC ABG pO2 Sodium 136 L Potassium Chloride Carbon Dioxide BUN 42 H Creatinine 1.6 H Glucose 180 H POC Glucose 129 H 149 H Lactic Acid Uric Acid Calcium Total Bilirubin AST ALT Total Creatine Kinase CK-MB (CK-2) CK-MB (CK-2) Rel Index Troponin T C-Reactive Protein NT-Pro-B Natriuret Pep Total Protein Albumin LDL Cholesterol Direct Urine WBC (Auto) 09/04/18 09/05/18 09/05/18 16:33 07:03 07:03 WBC RBC 2.92 L Hgb 9.1 L Hct 27.4 L MCV RDW 17.3 H Plt Count Lymph % (Auto) [facility] % (Auto) Eos % (Auto) Baso % (Auto) Lymph # Seg Neuts % (Manual) 81.0 H Lymphocytes % (Manual) 7.0 L Monocytes % (Manual) 8.0 H Basophils % (Manual) Nucleated RBC % Seg Neutrophils # Man Lymphocytes # (Manual) 0.5 L Monocytes # (Manual) PT INR D-Dimer POC ABG pH POC ABG pCO2 POC ABG pO2 Sodium Potassium Chloride Carbon Dioxide BUN 40 H Creatinine Glucose 153 H POC Glucose 165 H Lactic Acid Uric Acid Calcium Total Bilirubin AST ALT Total Creatine Kinase CK-MB (CK-2) CK-MB (CK-2) Rel Index Troponin T C-Reactive Protein NT-Pro-B Natriuret Pep Total Protein Albumin LDL Cholesterol Direct Urine WBC (Auto) 09/05/18 09/05/18 09/05/18 08:00 11:51 21:20 WBC RBC Hgb Hct MCV RDW Plt Count Lymph % (Auto) [facility] % (Auto) Eos % (Auto) Baso % (Auto) Lymph # Seg Neuts % (Manual) Lymphocytes % (Manual) Monocytes % (Manual) Basophils % (Manual) Nucleated RBC % Seg Neutrophils # Man Lymphocytes # (Manual) Monocytes # (Manual) PT INR D-Dimer POC ABG pH POC ABG pCO2 POC ABG pO2 Sodium Potassium Chloride Carbon Dioxide BUN Creatinine Glucose POC Glucose 146 H 207 H 114 H Lactic Acid Uric Acid Calcium Total Bilirubin AST ALT Total Creatine Kinase CK-MB (CK-2) CK-MB (CK-2) Rel Index Troponin T C-Reactive Protein NT-Pro-B Natriuret Pep Total Protein Albumin LDL Cholesterol Direct Urine WBC (Auto) 09/06/18 09/06/18 09/06/18 06:42 06:42 11:38 WBC RBC 2.90 L Hgb 9.0 L Hct 27.0 L MCV RDW 17.4 H Plt Count 130 L Lymph % (Auto) [facility] % (Auto) Eos % (Auto) Baso % (Auto) Lymph # Seg Neuts % (Manual) 79.0 H Lymphocytes % (Manual) 6.0 L Monocytes % (Manual) 12.0 H Basophils % (Manual) 2.0 H Nucleated RBC % Seg Neutrophils # Man Lymphocytes # (Manual) 0.3 L Monocytes # (Manual) PT INR D-Dimer POC ABG pH POC ABG pCO2 POC ABG pO2 Sodium 136 L Potassium Chloride Carbon Dioxide BUN 39 H Creatinine Glucose 106 H POC Glucose 265 H Lactic Acid Uric Acid Calcium Total Bilirubin AST ALT Total Creatine Kinase CK-MB (CK-2) CK-MB (CK-2) Rel Index Troponin T C-Reactive Protein NT-Pro-B Natriuret Pep Total Protein Albumin LDL Cholesterol Direct Urine WBC (Auto) 09/06/18 09/06/18 09/07/18 16:37 20:55 05:12 WBC RBC 2.80 L Hgb 8.7 L Hct 26.5 L MCV 95 H RDW 17.7 H Plt Count Lymph % (Auto) 13.[address] [facility] % (Auto) 14.2 H Eos % (Auto) Baso % (Auto) 1.9 H Lymph # 0.7 L Seg Neuts % (Manual) Lymphocytes % (Manual) Monocytes % (Manual) Basophils % (Manual) Nucleated RBC % Seg Neutrophils # Man Lymphocytes # (Manual) Monocytes # (Manual) PT INR D-Dimer POC ABG pH POC ABG pCO2 POC ABG pO2 Sodium Potassium Chloride Carbon Dioxide BUN Creatinine Glucose POC Glucose 131 H 135 H Lactic Acid Uric Acid Calcium Total Bilirubin AST ALT Total Creatine Kinase CK-MB (CK-2) CK-MB (CK-2) Rel Index Troponin T C-Reactive Protein NT-Pro-B Natriuret Pep Total Protein Albumin LDL Cholesterol Direct Urine WBC (Auto) 09/07/18 09/07/18 09/07/18 05:12 11:28 15:32 WBC RBC Hgb Hct MCV RDW Plt Count Lymph % (Auto) [facility] % (Auto) Eos % (Auto) Baso % (Auto) Lymph # Seg Neuts % (Manual) Lymphocytes % (Manual) Monocytes % (Manual) Basophils % (Manual) Nucleated RBC % Seg Neutrophils # Man Lymphocytes # (Manual) Monocytes # (Manual) PT INR D-Dimer POC ABG pH POC ABG pCO2 POC ABG pO2 Sodium Potassium Chloride Carbon Dioxide BUN 36 H Creatinine Glucose POC Glucose 176 H 131 H Lactic Acid Uric Acid Calcium Total Bilirubin AST ALT Total Creatine Kinase CK-MB (CK-2) CK-MB (CK-2) Rel Index Troponin T C-Reactive Protein NT-Pro-B Natriuret Pep Total Protein Albumin LDL Cholesterol Direct Urine WBC (Auto) 09/07/18 09/08/18 09/08/18 21:50 05:23 05:23 WBC RBC 2.72 L Hgb 8.5 L Hct 26.9 L MCV 99 H RDW 18.0 H Plt Count 136 L Lymph % (Auto) 13.[address] [facility] % (Auto) 15.7 H Eos % (Auto) Baso % (Auto) 1.9 H Lymph # 0.7 L Seg Neuts % (Manual) Lymphocytes % (Manual) Monocytes % (Manual) Basophils % (Manual) Nucleated RBC % Seg Neutrophils # Man Lymphocytes # (Manual) Monocytes # (Manual) PT INR D-Dimer POC ABG pH POC ABG pCO2 POC ABG pO2 Sodium 134 L Potassium 5.2 H Chloride Carbon Dioxide BUN 36 H Creatinine Glucose POC Glucose 160 H Lactic Acid Uric Acid Calcium Total Bilirubin AST ALT Total Creatine Kinase CK-MB (CK-2) CK-MB (CK-2) Rel Index Troponin T C-Reactive Protein NT-Pro-B Natriuret Pep Total Protein Albumin LDL Cholesterol Direct Urine WBC (Auto) 09/08/18 09/08/18 09/09/18 12:33 16:57 05:52 WBC RBC 2.64 L Hgb 8.1 L Hct 25.2 L MCV 95 H RDW 17.8 H Plt Count Lymph % (Auto) [facility] % (Auto) 14.3 H Eos % (Auto) Baso % (Auto) 1.9 H Lymph # 0.6 L Seg Neuts % (Manual) Lymphocytes % (Manual) Monocytes % (Manual) Basophils % (Manual) Nucleated RBC % Seg Neutrophils # Man Lymphocytes # (Manual) Monocytes # (Manual) PT INR D-Dimer POC ABG pH POC ABG pCO2 POC ABG pO2 Sodium Potassium Chloride Carbon Dioxide BUN Creatinine Glucose POC Glucose 198 H 195 H Lactic Acid Uric Acid Calcium Total Bilirubin AST ALT Total Creatine Kinase CK-MB (CK-2) CK-MB (CK-2) Rel Index Troponin T C-Reactive Protein NT-Pro-B Natriuret Pep Total Protein Albumin LDL Cholesterol Direct Urine WBC (Auto) 09/09/18 09/09/18 09/09/18 05:52 11:50 16:28 WBC RBC Hgb Hct MCV RDW Plt Count Lymph % (Auto) [facility] % (Auto) Eos % (Auto) Baso % (Auto) Lymph # Seg Neuts % (Manual) Lymphocytes % (Manual) Monocytes % (Manual) Basophils % (Manual) Nucleated RBC % Seg Neutrophils # Man Lymphocytes # (Manual) Monocytes # (Manual) PT INR D-Dimer POC ABG pH POC ABG pCO2 POC ABG pO2 Sodium 136 L Potassium Chloride Carbon Dioxide BUN 34 H Creatinine Glucose POC Glucose 122 H 170 H Lactic Acid Uric Acid Calcium 8.1 L Total Bilirubin AST ALT Total Creatine Kinase CK-MB (CK-2) CK-MB (CK-2) Rel Index Troponin T C-Reactive Protein NT-Pro-B Natriuret Pep Total Protein Albumin LDL Cholesterol Direct Urine WBC (Auto) 09/09/18 09/10/18 09/10/18 22:02 05:09 05:09 WBC 3.9 L RBC 2.63 L Hgb 8.2 L Hct 25.0 L MCV 95 H RDW 17.4 H Plt Count Lymph % (Auto) [facility] % (Auto) 15.9 H Eos % (Auto) Baso % (Auto) 2.0 H Lymph # 0.6 L Seg Neuts % (Manual) Lymphocytes % (Manual) Monocytes % (Manual) Basophils % (Manual) Nucleated RBC % Seg Neutrophils # Man Lymphocytes # (Manual) Monocytes # (Manual) PT INR D-Dimer POC ABG pH POC ABG pCO2 POC ABG pO2 Sodium Potassium 5.1 H Chloride Carbon Dioxide BUN 31 H Creatinine Glucose 106 H POC Glucose 144 H Lactic Acid Uric Acid Calcium 8.3 L Total Bilirubin AST ALT Total Creatine Kinase CK-MB (CK-2) CK-MB (CK-2) Rel Index Troponin T C-Reactive Protein NT-Pro-B Natriuret Pep Total Protein Albumin LDL Cholesterol Direct Urine WBC (Auto) 09/10/18 09/10/18 09/10/18 13:09 17:07 21:13 WBC RBC Hgb Hct MCV RDW Plt Count Lymph % (Auto) [facility] % (Auto) Eos % (Auto) Baso % (Auto) Lymph # Seg Neuts % (Manual) Lymphocytes % (Manual) Monocytes % (Manual) Basophils % (Manual) Nucleated RBC % Seg Neutrophils # Man Lymphocytes # (Manual) Monocytes # (Manual) PT INR D-Dimer POC ABG pH POC ABG pCO2 POC ABG pO2 Sodium Potassium Chloride Carbon Dioxide BUN Creatinine Glucose POC Glucose 134 H 117 H 154 H Lactic Acid Uric Acid Calcium Total Bilirubin AST ALT Total Creatine Kinase CK-MB (CK-2) CK-MB (CK-2) Rel Index Troponin T C-Reactive Protein NT-Pro-B Natriuret Pep Total Protein Albumin LDL Cholesterol Direct Urine WBC (Auto) 09/11/18 09/11/18 09/11/18 06:00 06:00 09:11 WBC 3.5 L RBC 2.41 L Hgb 7.4 L Hct 23.0 L MCV 96 H RDW 18.1 H Plt Count Lymph % (Auto) [facility] % (Auto) 15.3 H Eos % (Auto) 5.2 H Baso % (Auto) 2.6 H Lymph # 0.6 L Seg Neuts % (Manual) Lymphocytes % (Manual) Monocytes % (Manual) Basophils % (Manual) Nucleated RBC % Seg Neutrophils # Man Lymphocytes # (Manual) Monocytes # (Manual) PT INR D-Dimer POC ABG pH POC ABG pCO2 POC ABG pO2 Sodium Potassium 5.4 H Chloride Carbon Dioxide BUN 30 H Creatinine Glucose 108 H POC Glucose 124 H Lactic Acid Uric Acid Calcium Total Bilirubin AST ALT Total Creatine Kinase CK-MB (CK-2) CK-MB (CK-2) Rel Index Troponin T C-Reactive Protein NT-Pro-B Natriuret Pep Total Protein Albumin LDL Cholesterol Direct Urine WBC (Auto) 09/11/18 09/11/18 09/11/18 12:06 16:18 21:26 WBC RBC Hgb Hct MCV RDW Plt Count Lymph % (Auto) [facility] % (Auto) Eos % (Auto) Baso % (Auto) Lymph # Seg Neuts % (Manual) Lymphocytes % (Manual) Monocytes % (Manual) Basophils % (Manual) Nucleated RBC % Seg Neutrophils # Man Lymphocytes # (Manual) Monocytes # (Manual) PT INR D-Dimer POC ABG pH POC ABG pCO2 POC ABG pO2 Sodium Potassium Chloride Carbon Dioxide BUN Creatinine Glucose POC Glucose 144 H 138 H 163 H Lactic Acid Uric Acid Calcium Total Bilirubin AST ALT Total Creatine Kinase CK-MB (CK-2) CK-MB (CK-2) Rel Index Troponin T C-Reactive Protein NT-Pro-B Natriuret Pep Total Protein Albumin LDL Cholesterol Direct Urine WBC (Auto) 09/12/18 09/12/18 09/12/18 09:17 09:17 11:16 WBC 4.0 L RBC 2.62 L Hgb 8.1 L Hct 25.0 L MCV 96 H RDW 17.8 H Plt Count Lymph % (Auto) [facility] % (Auto) Eos % (Auto) Baso % (Auto) Lymph # Seg Neuts % (Manual) Lymphocytes % (Manual) Monocytes % (Manual) Basophils % (Manual) Nucleated RBC % Seg Neutrophils # Man Lymphocytes # (Manual) Monocytes # (Manual) PT INR D-Dimer POC ABG pH POC ABG pCO2 POC ABG pO2 Sodium Potassium 5.3 H Chloride Carbon Dioxide BUN 27 H Creatinine Glucose 113 H POC Glucose 147 H Lactic Acid Uric Acid Calcium Total Bilirubin AST ALT Total Creatine Kinase CK-MB (CK-2) CK-MB (CK-2) Rel Index Troponin T C-Reactive Protein NT-Pro-B Natriuret Pep Total Protein Albumin LDL Cholesterol Direct Urine WBC (Auto) 09/12/18 09/12/18 09/13/18 15:31 21:23 06:48 WBC 3.7 L RBC 2.49 L Hgb 7.7 L Hct 23.7 L MCV 95 H RDW 17.4 H Plt Count Lymph % (Auto) [facility] % (Auto) Eos % (Auto) Baso % (Auto) Lymph # Seg Neuts % (Manual) Lymphocytes % (Manual) Monocytes % (Manual) Basophils % (Manual) Nucleated RBC % Seg Neutrophils # Man Lymphocytes # (Manual) Monocytes # (Manual) PT INR D-Dimer POC ABG pH POC ABG pCO2 POC ABG pO2 Sodium Potassium Chloride Carbon Dioxide BUN Creatinine Glucose POC Glucose 126 H 116 H Lactic Acid Uric Acid Calcium Total Bilirubin AST ALT Total Creatine Kinase CK-MB (CK-2) CK-MB (CK-2) Rel Index Troponin T C-Reactive Protein NT-Pro-B Natriuret Pep Total Protein Albumin LDL Cholesterol Direct Urine WBC (Auto) 09/13/18 09/13/18 09/13/18 06:48 16:49 21:44 WBC RBC Hgb Hct MCV RDW Plt Count Lymph % (Auto) [facility] % (Auto) Eos % (Auto) Baso % (Auto) Lymph # Seg Neuts % (Manual) Lymphocytes % (Manual) Monocytes % (Manual) Basophils % (Manual) Nucleated RBC % Seg Neutrophils # Man Lymphocytes # (Manual) Monocytes # (Manual) PT INR D-Dimer POC ABG pH POC ABG pCO2 POC ABG pO2 Sodium Potassium 5.5 H Chloride Carbon Dioxide BUN 25 H Creatinine Glucose 106 H POC Glucose 112 H 117 H Lactic Acid Uric Acid Calcium Total Bilirubin AST ALT Total Creatine Kinase CK-MB (CK-2) CK-MB (CK-2) Rel Index Troponin T C-Reactive Protein NT-Pro-B Natriuret Pep Total Protein Albumin LDL Cholesterol Direct Urine WBC (Auto) 09/14/18 09/14/18 09/14/18 04:44 11:43 16:35 WBC RBC Hgb Hct MCV RDW Plt Count Lymph % (Auto) [facility] % (Auto) Eos % (Auto) Baso % (Auto) Lymph # Seg Neuts % (Manual) Lymphocytes % (Manual) Monocytes % (Manual) Basophils % (Manual) Nucleated RBC % Seg Neutrophils # Man Lymphocytes # (Manual) Monocytes # (Manual) PT INR D-Dimer POC ABG pH POC ABG pCO2 POC ABG pO2 Sodium Potassium 5.1 H Chloride Carbon Dioxide BUN 23 H Creatinine Glucose 112 H POC Glucose 166 H 140 H Lactic Acid Uric Acid Calcium 8.2 L Total Bilirubin AST ALT Total Creatine Kinase CK-MB (CK-2) CK-MB (CK-2) Rel Index Troponin T C-Reactive Protein NT-Pro-B Natriuret Pep Total Protein Albumin LDL Cholesterol Direct Urine WBC (Auto) 09/14/18 09/15/18 09/15/18 21:44 11:41 16:34 WBC RBC Hgb Hct MCV RDW Plt Count Lymph % (Auto) [facility] % (Auto) Eos % (Auto) Baso % (Auto) Lymph # Seg Neuts % (Manual) Lymphocytes % (Manual) Monocytes % (Manual) Basophils % (Manual) Nucleated RBC % Seg Neutrophils # Man Lymphocytes # (Manual) Monocytes # (Manual) PT INR D-Dimer POC ABG pH POC ABG pCO2 POC ABG pO2 Sodium Potassium Chloride Carbon Dioxide BUN Creatinine Glucose POC Glucose 172 H 143 H 144 H Lactic Acid Uric Acid Calcium Total Bilirubin AST ALT Total Creatine Kinase CK-MB (CK-2) CK-MB (CK-2) Rel Index Troponin T C-Reactive Protein NT-Pro-B Natriuret Pep Total Protein Albumin LDL Cholesterol Direct Urine WBC (Auto) 09/15/18 09/16/18 09/16/18 21:18 11:54 16:51 WBC RBC Hgb Hct MCV RDW Plt Count Lymph % (Auto) [facility] % (Auto) Eos % (Auto) Baso % (Auto) Lymph # Seg Neuts % (Manual) Lymphocytes % (Manual) Monocytes % (Manual) Basophils % (Manual) Nucleated RBC % Seg Neutrophils # Man Lymphocytes # (Manual) Monocytes # (Manual) PT INR D-Dimer POC ABG pH POC ABG pCO2 POC ABG pO2 Sodium Potassium Chloride Carbon Dioxide BUN Creatinine Glucose POC Glucose 166 H 188 H 139 H Lactic Acid Uric Acid Calcium Total Bilirubin AST ALT Total Creatine Kinase CK-MB (CK-2) CK-MB (CK-2) Rel Index Troponin T C-Reactive Protein NT-Pro-B Natriuret Pep Total Protein Albumin LDL Cholesterol Direct Urine WBC (Auto) 09/16/18 09/17/18 09/17/18 22:05 04:51 04:51 WBC 3.5 L RBC 2.41 L Hgb 7.5 L Hct 22.9 L MCV 95 H RDW 16.6 H Plt Count Lymph % (Auto) [facility] % (Auto) Eos % (Auto) Baso % (Auto) Lymph # Seg Neuts % (Manual) Lymphocytes % (Manual) Monocytes % (Manual) Basophils % (Manual) Nucleated RBC % Seg Neutrophils # Man Lymphocytes # (Manual) Monocytes # (Manual) PT INR D-Dimer POC ABG pH POC ABG pCO2 POC ABG pO2 Sodium Potassium Chloride Carbon Dioxide BUN 24 H Creatinine 1.6 H Glucose 116 H POC Glucose 182 H Lactic Acid Uric Acid Calcium 7.9 L Total Bilirubin AST ALT Total Creatine Kinase CK-MB (CK-2) CK-MB (CK-2) Rel Index Troponin T C-Reactive Protein NT-Pro-B Natriuret Pep Total Protein Albumin LDL Cholesterol Direct Urine WBC (Auto) 09/17/18 09/17/18 11:34 15:52 WBC RBC Hgb Hct MCV RDW Plt Count Lymph % (Auto) [facility] % (Auto) Eos % (Auto) Baso % (Auto) Lymph # Seg Neuts % (Manual) Lymphocytes % (Manual) Monocytes % (Manual) Basophils % (Manual) Nucleated RBC % Seg Neutrophils # Man Lymphocytes # (Manual) Monocytes # (Manual) PT INR D-Dimer POC ABG pH POC ABG pCO2 POC ABG pO2 Sodium Potassium Chloride Carbon Dioxide BUN Creatinine Glucose POC Glucose 152 H 119 H Lactic Acid Uric Acid Calcium Total Bilirubin AST ALT Total Creatine Kinase CK-MB (CK-2) CK-MB (CK-2) Rel Index Troponin T C-Reactive Protein NT-Pro-B Natriuret Pep Total Protein Albumin LDL Cholesterol Direct Urine WBC (Auto) Allied health notes reviewed: RT
[2018-09-17] MEDS ORDERED: MORPHINE PO PRN (20:47)
[2018-09-18] MEDS: AMBIEN PO PRN ×2 (00:24→22:41)
[2018-09-18 06:18] LABS: Calcium 8.2 mg/dL (8.4-10.2)
[2018-09-18] MEDS: BROVANA NEBU IH SCH ×2 (07:35→20:15)
[2018-09-18] MEDS: DUONEB *Not for PRN Use IH SCH ×2 (07:35→22:42)
[2018-09-18] MEDS: PULMICORT IH SCH ×2 (07:35→20:15)
[2018-09-18] MEDS: HumaLOG SUB-Q SCH ×4 (08:25→23:33)
--- NOTE | 2018-09-18 09:32 | Progress Note ---
Assessment and Plan Assessment and plan: Acute on chronic respiratory failure. Etiology secondary to COPD exacerbation. Continue O2 and nebulizers. Improving. s/p cardiac arrest Stable Acute kidney injury on CKD stage III. Resolved, Off hemodialysis now. [place] removed today and he passed urine Acute COPD exacerbation, resolved. Patient doing well. Awaiting longterm placement Hyperkalemia. Now resolved after multiple doses kayexalate Pneumonia Completed Abx. Sepsis. Improved. Leukocytosis resolved. Pulseless electrical activity status post cardiorespiratory arrest. Cont. beta renetta and aspirin. Supportive care. Seizure disorder. EEG Normal Morbid obesity. supportive care Disposition. Stable to go to SNF. Discharge orders put in but SNF says they will accept in am History Interval history: Feels better No shortness of breath currently dc orders put in but SNF will take in am Hospitalist Physical - Physical exam Narrative exam: Gen: Not in acute distress, lying in bed, morbidly obese HEENT: Normocephalic, atraumatic Neck: supple, no JVD Heart: S1 and S2 reg, no murmurs, rubs or gallop Lungs: Decreased breath sounds bilaterally, no crackles or wheeze Abd: soft, non tender, non distended, normal BS Ext: No edema, no clubbing, no cyanosis Neuro:awake,alert, Oriented X 3. No focal signs - Constitutional Vitals: Temp Pulse Resp BP Pulse Ox 98.4 F 100 H 20 134/61 98 09/18/18 01:58 09/18/18 08:04 09/18/18 08:04 09/18/18 01:58 09/18/18 07:35 General appearance: Present: no acute distress Results - Labs CBC & Chem 7: 09/17/18 04:51 09/18/18 05:23 Labs: Laboratory Last Values WBC 3.5 K/mm3 (4.5-11.0) L 09/17/18 04:51 RBC 2.41 M/mm3 (3.65-5.03) L 09/17/18 04:51 Hgb 7.5 gm/dl (11.8-15.2) L 09/17/18 04:51 Hct 22.9 % (35.5-45.6) L 09/17/18 04:51 MCV 95 fl (84-94) H 09/17/18 04:51 MCH 31 pg (28-32) 09/17/18 04:51 MCHC 33 % (32-34) 09/17/18 04:51 RDW 16.6 % (13.2-15.2) H 09/17/18 04:51 Plt Count 197 K/mm3 (140-440) 09/17/18 04:51 Lymph % (Auto) 16.1 % (13.4-35.0) 09/11/18 06:00 [place] % (Auto) 15.3 % (0.0-7.3) H 09/11/18 06:00 Eos % (Auto) 5.2 % (0.0-4.3) H 09/11/18 06:00 Baso % (Auto) 2.6 % (0.0-1.8) H 09/11/18 06:00 Lymph # 0.6 K/mm3 (1.2-5.4) L 09/11/18 06:00 [place] # 0.5 K/mm3 (0.0-0.8) 09/11/18 06:00 Eos # 0.2 K/mm3 (0.0-0.4) 09/11/18 06:00 Baso # 0.1 K/mm3 (0.0-0.1) 09/11/18 06:00 Add Manual Diff Complete 09/06/18 06:42 Total Counted 100 09/06/18 06:42 Seg Neutrophils % 60.8 % (40.0-70.0) 09/11/18 06:00 Seg Neuts % (Manual) 79.0 % (40.0-70.0) H 09/06/18 06:42 0 % 09/06/18 06:42 6.0 % (13.4-35.0) L 09/06/18 06:42 Reactive Lymphs % (Man) 0 % 09/06/18 06:42 12.0 % (0.0-7.3) H 09/06/18 06:42 1.0 % (0.0-4.3) 09/06/18 06:42 2.0 % (0.0-1.8) H 09/06/18 06:42 0 % 09/06/18 06:42 0 % 09/06/18 06:42 0 % 09/06/18 06:42 0 % 09/06/18 06:42 Nucleated RBC % Not Reportable 09/06/18 06:42 Seg Neutrophils # 2.1 K/mm3 (1.8-7.7) 09/11/18 06:00 Seg Neutrophils # Man 3.9 K/mm3 (1.8-7.7) 09/06/18 06:42 Band Neutrophils # 0.0 K/mm3 09/06/18 06:42 0.3 K/mm3 (1.2-5.4) L 09/06/18 06:42 Abs React Lymphs (Man) 0.0 K/mm3 09/06/18 06:42 0.6 K/mm3 (0.0-0.8) 09/06/18 06:42 0.0 K/mm3 (0.0-0.4) 09/06/18 06:42 0.1 K/mm3 (0.0-0.1) 09/06/18 06:42 0.0 K/mm3 09/06/18 06:42 0.0 K/mm3 09/06/18 06:42 0.0 K/mm3 09/06/18 06:42 Blast Cells # 0.0 K/mm3 09/06/18 06:42 WBC Morphology Not Reportable 09/06/18 06:42 Hypersegmented Neuts Not Reportable 09/06/18 06:42 Hyposegmented Neuts Not Reportable 09/06/18 06:42 Hypogranular Neuts Not Reportable 09/06/18 06:42 Not Reportable 09/06/18 06:42 Not Reportable 09/06/18 06:42 Not Reportable 09/06/18 06:42 Not Reportable 09/06/18 06:42 Not Reportable 09/06/18 06:42 Not Reportable 09/06/18 06:42 Consistent w auto 09/06/18 06:42 Not Reportable 09/06/18 06:42 Plt Clumps, EDTA Not Reportable 09/06/18 06:42 Not Reportable 09/06/18 06:42 Not Reportable 09/06/18 06:42 Not Reportable 09/06/18 06:42 Plt Morphology Comment Not Reportable 09/06/18 06:42 RBC Morphology Not Reportable 09/06/18 06:42 Dimorphic RBCs Not Reportable 09/06/18 06:42 Not Reportable 09/06/18 06:42 Not Reportable 09/06/18 06:42 Not Reportable 09/06/18 06:42 1+ 09/06/18 06:42 Not Reportable 09/06/18 06:42 1+ 09/06/18 06:42 Not Reportable 09/06/18 06:42 Not Reportable 09/06/18 06:42 Not Reportable 09/06/18 06:42 Not Reportable 09/06/18 06:42 Not Reportable 09/06/18 06:42 Not Reportable 09/06/18 06:42 Not Reportable 09/06/18 06:42 Not Reportable 09/06/18 06:42 Not Reportable 09/06/18 06:42 Not Reportable 09/06/18 06:42 Not Reportable 09/06/18 06:42 Not Reportable 09/06/18 06:42 Not Reportable 09/06/18 06:42 Acanthocytes (Spur) Not Reportable 09/06/18 06:42 Rouleaux Not Reportable 09/06/18 06:42 Not Reportable 09/06/18 06:42 Not Reportable 09/06/18 06:42 Not Reportable 09/06/18 06:42 Not Reportable 09/06/18 06:42 Hem Pathologist Commnt No 09/06/18 06:42 PT 15.6 Sec. (12.2-14.9) H 08/25/18 16:43 INR 1.27 (0.87-1.13) H 08/25/18 16:43 APTT 30.8 Sec. (24.2-36.6) 08/21/18 04:42 1978.25 ng/mlDDU (0-234) H 08/24/18 13:41 POC ABG pH 7.410 (7.35-7.45) 08/30/18 13:35 POC ABG pCO2 41.4 (35-45) 08/30/18 13:35 POC ABG pO2 99 (80-105) 08/30/18 13:35 POC ABG HCO3 26.2 (22-26 mml/L) 08/30/18 13:35 POC ABG Total CO2 27 (23-27mmol/L) 08/30/18 13:35 POC ABG O2 Sat 98 08/30/18 13:35 POC ABG Base Excess 2 ((-2) - (+3)mmol/L) 08/30/18 13:35 30 % 08/30/18 13:35 Sodium 137 mmol/L (137-145) 09/18/18 05:23 Potassium 4.8 mmol/L (3.6-5.0) 09/18/18 05:23 Chloride 102.4 mmol/L (98-107) 09/18/18 05:23 Carbon Dioxide 24 mmol/L (22-30) 09/18/18 05:23 15 mmol/L 09/18/18 05:23 BUN 26 mg/dL (9-20) H 09/18/18 05:23 1.5 mg/dL (0.8-1.5) 09/18/18 05:23 Estimated GFR 46 ml/min 09/18/18 05:23 17 % 09/18/18 05:23 Glucose 112 mg/dL (75-100) H 09/18/18 05:23 POC Glucose 106 (70-105) H 09/18/18 08:09 317 Mosm/kg 08/31/18 13:54 Lactic Acid 1.30 mmol/L (0.7-2.0) 08/21/18 20:50 9.6 mg/dL (3.5-7.6) H 08/31/18 13:54 Calcium 8.2 mg/dL (8.4-10.2) L 09/18/18 05:23 Magnesium 2.00 mg/dL (1.7-2.3) 09/02/18 05:16 0.60 mg/dL (0.1-1.2) 08/28/18 04:49 AST 27 units/L (5-40) 08/28/18 04:49 ALT 12 units/L (7-56) 08/28/18 04:49 87 units/L (35-129) 08/28/18 04:49 222 units/L (55-170) H 08/21/18 10:45 CK-MB (CK-2) 9.2 ng/mL (0.0-4.0) H 08/21/18 10:45 CK-MB (CK-2) Rel Index 4.1 (0-4) H 08/21/18 10:45 0.020 ng/mL (0.00-0.029) 09/08/18 09:06 9.00 mg/dL (0.00-1.30) H 08/24/18 13:41 NT-Pro-B Natriuret Pep > 13723 pg/mL (0-900) H 08/28/18 04:49 5.4 g/dL (6.3-8.2) L 08/28/18 04:49 2.2 g/dL (3.9-5) L 08/28/18 04:49 0.7 % 08/28/18 04:49 Triglycerides 87 mg/dL (2-149) 08/21/18 04:42 Cholesterol 93 mg/dL (50-199) 08/21/18 04:42 44 mg/dL (50-130) L 08/21/18 04:42 41 mg/dL (40-59) 08/21/18 04:42 2.26 % 08/21/18 04:42 Yellow (Yellow) 08/21/18 15:03 Slightly-cloudy (Clear) 08/21/18 15:03 5.0 (5.0-7.0) 08/21/18 15:03 Ur Specific [place] 1.015 (1.003-1.030) 08/21/18 15:03 30 mg/dl mg/dL (Negative) 08/21/18 15:03 Neg mg/dL (Negative) 08/21/18 15:03 Neg mg/dL (Negative) 08/21/18 15:03 Mod (Negative) 08/21/18 15:03 Neg (Negative) 08/21/18 15:03 Neg (Negative) 08/21/18 15:03 < 2.0 mg/dL (<2.0) 08/21/18 15:03 Ur Leukocyte Esterase Tr (Negative) 08/21/18 15:03 13.0 /HPF (0.0-6.0) H 08/21/18 15:03 15.0 /HPF (0.0-6.0) 08/21/18 15:03 U Epithel Cells (Auto) 1.0 /HPF (0-13.0) 08/21/18 15:03 1+ /HPF (Negative) 08/21/18 15:03 Few /HPF 08/21/18 15:03 Random Vancomycin 10.5 ug/mL (0-40.0) 08/26/18 05:53 Levetiracetam 25.7 mcg/mL (12.0-46.0) 08/26/18 13:42 Hepatitis A IgM Ab Non-reactive (NonReactive) 08/27/18 23:25 Hep Bs Antigen Non-reactive (Negative) 08/27/18 23:25 Hep B Core IgM Ab Non-reactive (NonReactive) 08/27/18 23:25 Non-reactive (NonReactive) 08/27/18 23:25 Active Medications - Current Medications Current Medications: Generic Name Dose Route Start Last Admin Trade Name Freq PRN Reason Stop Dose Admin Acetaminophen 650 mg 08/21/18 06:31 09/01/18 21:12 Tylenol PO 650 mg Q4H PRN Administration Pain MILD(1-3)/Fever >100.5/COOK Albuterol/Ipratropium 1 ampul 08/24/18 20:00 09/18/18 07:35 Duoneb *Not For Prn Use* IH 1 ampul BIDRT LUIS Administration Lipase/Protease/Amylase 1 each 08/26/18 12:07 [place] 10,500 Unit FEEDTUBE PRN PRN For Clogged Feeding Tube Arformoterol Tartrate 15 mcg 08/24/18 20:00 09/18/18 07:35 Brovana Nebu IH 15 mcg Q12HRT LUIS Administration Bisacodyl 10 mg 09/02/18 12:42 Dulcolax DC QDAY PRN Constipation Budesonide 0.5 mg 08/24/18 20:00 09/18/18 07:35 Pulmicort IH 0.5 mg Q12HRT LUIS Administration Dextrose 50 ml 08/21/18 06:48 D50w (25gm) Syringe IV PRN PRN Hypoglycemia Diphenhydramine HCl 25 mg 09/11/18 06:07 09/16/18 21:41 Benadryl PO 25 mg Q6H PRN Administration Itching Heparin Sodium (Porcine) 5,000 unit 08/22/18 10:00 09/17/18 22:39 Heparin SUB-Q 5,000 unit Q12HR LUIS Administration Hydralazine HCl 50 mg 09/08/18 10:00 09/17/18 21:53 Apresoline PO 50 mg BID LUIS Administration Sodium Chloride 1,000 mls @ 42 mls/hr 09/17/18 08:00 09/17/18 10:34 Nacl 0.9% 1000 Ml IV 42 mls/hr DIRECT LUIS Administration Insulin Human Lispro 0 unit 08/31/18 22:00 09/18/18 08:25 Humalog SUB-Q Not Given ACHS [facility] Protocol Levetiracetam 750 mg 09/04/18 22:00 09/17/18 21:53 Keppra PO 750 mg BID LUIS Administration Metoclopramide HCl 10 mg 09/05/18 18:35 09/10/18 03:02 Reglan IV 10 mg Q6H PRN Administration Nausea And Vomiting Morphine Sulfate 2 mg 08/26/18 14:24 09/16/18 22:14 Morphine IV 2 mg Q6H PRN Administration Pain, Moderate (4-6) Morphine Sulfate 2 mg 09/17/18 20:47 09/17/18 21:51 Morphine PO 2 mg Q6H PRN Administration Pain , Severe (7-10) Ondansetron HCl 4 mg 08/21/18 06:31 Zofran IV Q8H PRN Nausea And Vomiting Sodium Chloride 10 ml 08/21/18 10:00 09/17/18 21:54 Sodium Chloride Flush Syringe 10 Ml IV 10 ml BID LUIS Administration Zolpidem Tartrate 5 mg 09/09/18 00:19 09/18/18 00:24 Ambien PO 5 mg QHS PRN Administration Sleep Nutrition/Malnutrition Assess - Dietary Evaluation Nutrition/Malnutrition Findings: Nutrition Notes Start: 08/21/18 16:58 Freq: Status: Active Protocol: Document 09/12/18 14:04 RM (Rec: 09/12/18 14:12 [id number]) Nutrition Notes Initial or Follow up Reassessment Current Diagnosis CKD(stage I-IV),Diabetes, Sepsis,Heart Failure Other Pertinent Diagnosis COPD exacerbation, pneu, s/p cardiac arrest Current Diet Cardiac/Consistent CHO Labs/Tests Reviewed Pertinent Medications Reviewed Height 5 ft 6 in Weight 138.1 kg [place] Body Weight (kg) 64.54 BMI 49.1 Weight change and time frame Current wt obtained from [facility]. Wt loss possibly d/t fluid change Subjective/Other Information Glucerna no longer in diet order. Pt stated that he eats 1/3 to 50% of his meals. Stated that he was drinking the Glucerna previously but has not received any the past few days. Crime Scene Analyst brought pt 2 Glucerna. Burn Absent Trauma Absent #1 Nutrition Diagnosis Inadequate oral intake Diagnosis Progress(for reassessment Continues documentation) Is patient on ventilator? No Is Patient Ambulatory and/or Out of Bed No REE-([facility]-confined to bed) 2493.756 Kcal/Kg value to use for calculation 12 Approximate Energy Requirements Using 1657 kcal/Kg Calculation Used for Recommendations Kcal/kg Additional Notes Pro needs 1-1.2g/kg adjBW: 105-127g/day Fluid needs 1ml/kcal Nutrition Intervention Change Diet Order: Continue current Add Supplement/Snack (indicate name/kcal Glucerna Chocolate, [place] /protein ) BID Provides kCal: 440 Provides Protein (gm) 20 Goal #1 Meet at least 75% of kcal and protein needs via PO intakes Anticipated Discharge Needs: Cardiac/Consistent CHO Follow-Up By: 09/18/18 Additional Comments Follow for PO and ONS intakes
[2018-09-18] MEDS: KEPPRA PO SCH ×2 (10:01→22:41)
[2018-09-18] MEDS: APRESOLINE PO SCH ×2 (10:01→22:40)
[2018-09-18] MEDS: HEPARIN SUB-Q SCH ×2 (10:02→22:44)
[2018-09-18] MEDS: SODIUM CHLORIDE FLUSH SYRINGE 10 ML IV SCH ×2 (10:02→22:43)
--- NOTE | 2018-09-18 14:34 | Discharge Summary ---
Providers - Providers Date of Admission: 08/21/18 06:30 Date of discharge: 09/18/18 Attending physician: EBENEZER KINNEY 08/21/18 09:08 Consult to Physician [CONS] Routine Comment: Consulting Provider: TRUNG FARIA Physician Instructions: Reason For Exam: CCM, MV management 08/21/18 09:13 Consult to Physician [CONS] Routine Comment: Consulting Provider: ALEX HUYNH Physician Instructions: Reason For Exam: ARF, hyperkalemia, severe acidosis 08/21/18 11:34 Consult to Dietitian/Nutrition [CONS] Routine Physician Instructions: Reason For Exam: Reason for Consult: Evaluate nutritional intake 08/22/18 08:47 Midline [Consult to PICC Line RN] [CONS] Routine Reason For Exam: respiratory failure, on drips Type Line:: Midline 08/22/18 10:39 Consult to Physician [CONS] Routine Comment: Consulting Provider: SHAUN SAGE Physician Instructions: Reason For Exam: postive sputum culture, hx of MRSA 08/24/18 13:26 Consult to Physician [CONS] Routine Comment: Consulting Provider: TED FLETCHER Physician Instructions: Reason For Exam: Acute encephalopathy; s/p cardiac arrest 08/25/18 09:51 Consult to Physician [CONS] Routine Comment: Consulting Provider: LARRY ARGUELLO Physician Instructions: Reason For Exam: SBO 08/26/18 12:07 Consult to Dietitian/Nutrition [CONS] Routine Physician Instructions: Assess nutrtn needs, initiate, modify, manage TF Reason For Exam: Reason for Consult: Write/Manage Tube Feeding Reason for Consult: Write/Manage Tube Feeding 08/26/18 16:26 Consult to Dietitian/Nutrition [CONS] Routine Physician Instructions: Reason For Exam: Reason for Consult: Evaluate nutritional intake 08/26/18 17:02 Consult to Dietitian/Nutrition [CONS] Routine Physician Instructions: Reason For Exam: Reason for Consult: Evaluate nutritional intake 08/29/18 10:18 Consult to Dietitian/Nutrition [CONS] Routine Physician Instructions: Assess nutrtn needs, initiate, modify, manage TF Reason For Exam: Reason for Consult: Write/Manage Tube Feeding Reason for Consult: Write/Manage Tube Feeding 08/30/18 18:19 Physical Therapy Evaluation and Treat [CONS] Stat Comment: Reason For Exam: eval Speech Therapy Evaluation and Treat [CONS] Urgent Reason For Exam: s/p extubation 08/30/18 18:21 Occupational Therapy Evaluate and Treat [CONS] Stat Comment: Reason For Exam: eval 09/02/18 14:21 Consult to Physician [CONS] Routine Comment: Consulting Provider: ADALID RUIZ Physician Instructions: Reason For Exam: permacath removal 09/06/18 08:01 Consult to Wound/ET Nurse [CONS] Routine Reason For Exam: skin rash around private area Primary care physician: KATARINA HIGGINBOTHAM MD Hospitalization Condition: Fair Disposition: DC/[place]-03 SNF W [facility] CERT Exam - Constitutional Vitals: Temp Pulse Resp BP Pulse Ox 98.3 F 107 H 20 136/58 98 09/18/18 08:03 09/18/18 10:01 09/18/18 08:04 09/18/18 10:01 09/18/18 08:03 Plan Activity: advance as tolerated Diet: low fat, low cholesterol, low salt, diabetic Special Instructions: home oxygen via Additional Instructions: 1.Follow up with Physician at SNF in 2-3 days. 2.F ollow up with Titus Thomsa in 1 week. 3.Follow up with [facility] cardiology in 1 week. 4.Continue Oxygen at 2 l/min Follow up with: PRIMARY CAREMD [Referring] - 3-5 Days Prescriptions: Hydralazine HCl 50 mg PO BID #60 tablet levETIRAcetam [Keppra TAB] 750 mg PO BID #60 tablet
--- NOTE | 2018-09-18 19:16 | Progress Note ---
Assessment and Plan Patient is awake and resting on CPAP with 2 litres O2. O2 saturation is 98%. No acute respiratory distress. Patient is afebrile. No leukocytosis. - Patient Problems (1) COPD (chronic obstructive pulmonary disease) Current Visit: Yes Status: Acute Plan to address problem: CPAP with 2 litres O2. 2 litres O2 when he is not on BIPAP. Albuterol and atrovent aeorosol treatment q6 hours PRN for shortness of breath. Brovanna/ budesonide aeorsol treatment q 12 hours continue subq heparin. Patient is on reglan. (2) Acute on chronic respiratory failure Current Visit: Yes Status: Acute Plan to address problem: CPAP with 2 litres O2. 2 litres O2 when she is on BIPAP. Albuterol and atrovent aeorosol treatment q6 hours PRN for shortness of breath. Brovanna/ budesonide aeorsol treatment q 12 hours continue subq heparin. Patient is on reglan. (3) Acute HFrEF (heart failure with reduced ejection fraction) Current Visit: Yes Status: Resolved Plan to address problem: Management as per cardiology. (4) Acute renal failure Current Visit: Yes Status: Acute Plan to address problem: Management as per Nephrology. (5) Altered mental status Current Visit: Yes Status: Acute Plan to address problem: Management as per primary care and neurology. (6) Bacteremia due to coagulase-negative Staphylococcus Current Visit: Yes Status: Acute Plan to address problem: management as per infectious diseases. (7) Anemia Current Visit: Yes Status: Acute Plan to address problem: Management as per primary care. Subjective Date of service: 09/18/18 Principal diagnosis: s/p cardiac arrest; severe sepsis; acute hypoxemic- hypercapnic resp failure Interval history: Patient is awake and resting on CPAP with 2 litres O2. O2 saturation is 98%. No acute respiratory distress. Patient is afebrile. No leukocytosis. Objective Vital Signs - 12hr 09/18/18 09/18/18 09/18/18 07:35 08:03 08:04 Temperature 98.3 F Pulse Rate 107 H Pulse Rate [ 100 H Anterior Bilateral Throughout] Respiratory 20 Rate Respiratory 20 Rate [Anterior Bilateral Throughout] Blood Pressure 136/58 O2 Sat by Pulse 98 98 Oximetry 09/18/18 10:01 Temperature Pulse Rate 107 H Pulse Rate [ Anterior Bilateral Throughout] Respiratory Rate Respiratory Rate [Anterior Bilateral Throughout] Blood Pressure 136/58 O2 Sat by Pulse Oximetry Constitutional: no acute distress, alert, other (Resting on CPAP) Eyes: non-icteric ENT: oropharynx moist, other Neck: supple, no JVD, other (short neck) Effort: mildly labored Ascultation: Bilateral: diminished breath sounds, rhonchi (coarse BS bilaterally) Percussion: Bilateral: not dull Cardiovascular: regular rate and rhythm, other (S1,S2, no murmurs, no gallops or rubs) Gastrointestinal: normoactive bowel sounds, soft, non-tender, non-distended, other (Madison catheter in place, clear urine) Integumentary: normal, other (right femoral HD catheter) Extremities: no cyanosis, no edema, pink and warm, pulses normal, no ischemia or petechiae Neurologic: non-focal exam (grossly), pupils equal and round, motor strength normal and, other (awake and alert, obeying one step commands) Psychiatric: mood appropriate, affect normal CBC and BMP: 09/17/18 04:51 09/18/18 05:23 ABG, PT/INR, D-dimer: ABG POC ABG pH 7.410 (7.35-7.45) 08/30/18 13:35 POC ABG pCO2 41.4 (35-45) 08/30/18 13:35 POC ABG pO2 99 (80-105) 08/30/18 13:35 POC ABG HCO3 26.2 (22-26 mml/L) 08/30/18 13:35 POC ABG Total CO2 27 (23-27mmol/L) 08/30/18 13:35 POC ABG O2 Sat 98 08/30/18 13:35 PT/INR, D-dimer PT 15.6 Sec. (12.2-14.9) H 08/25/18 16:43 INR 1.27 (0.87-1.13) H 08/25/18 16:43 1978.25 ng/mlDDU (0-234) H 08/24/18 13:41 Abnormal lab findings: Abnormal Labs 08/21/18 08/21/18 08/21/18 04:42 04:42 04:42 WBC 19.1 H RBC 2.49 L Hgb 7.7 L Hct 24.5 L MCV 98 H RDW 17.7 H Plt Count Lymph % (Auto) Lea % (Auto) Eos % (Auto) Baso % (Auto) Lymph # Seg Neuts % (Manual) 84.0 H Lymphocytes % (Manual) 7.0 L Monocytes % (Manual) 9.0 H Basophils % (Manual) Nucleated RBC % Seg Neutrophils # Man 16.0 H Lymphocytes # (Manual) Monocytes # (Manual) 1.7 H PT 20.1 H INR 1.76 H D-Dimer POC ABG pH POC ABG pCO2 POC ABG pO2 Sodium Potassium Chloride Carbon Dioxide BUN Creatinine Glucose POC Glucose Lactic Acid Uric Acid Calcium Total Bilirubin AST ALT Total Creatine Kinase CK-MB (CK-2) CK-MB (CK-2) Rel Index Troponin T 0.032 H C-Reactive Protein NT-Pro-B Natriuret Pep Total Protein Albumin LDL Cholesterol Direct 44 L Urine WBC (Auto) 08/21/18 08/21/18 08/21/18 04:42 04:42 04:42 WBC RBC Hgb Hct MCV RDW Plt Count Lymph % (Auto) [place] % (Auto) Eos % (Auto) Baso % (Auto) Lymph # Seg Neuts % (Manual) Lymphocytes % (Manual) Monocytes % (Manual) Basophils % (Manual) Nucleated RBC % Seg Neutrophils # Man Lymphocytes # (Manual) Monocytes # (Manual) PT INR D-Dimer POC ABG pH POC ABG pCO2 POC ABG pO2 Sodium Potassium 6.0 H Chloride Carbon Dioxide 15 L BUN 57 H Creatinine 4.3 H Glucose 111 H POC Glucose Lactic Acid 5.80 H* Uric Acid Calcium Total Bilirubin 1.80 H AST 212 H ALT 94 H Total Creatine Kinase CK-MB (CK-2) CK-MB (CK-2) Rel Index Troponin T C-Reactive Protein NT-Pro-B Natriuret Pep 80496 H Total Protein Albumin 3.2 L LDL Cholesterol Direct Urine WBC (Auto) 08/21/18 08/21/18 08/21/18 05:08 05:58 05:58 WBC RBC Hgb Hct MCV RDW Plt Count Lymph % (Auto) [place] % (Auto) Eos % (Auto) Baso % (Auto) Lymph # Seg Neuts % (Manual) Lymphocytes % (Manual) Monocytes % (Manual) Basophils % (Manual) Nucleated RBC % Seg Neutrophils # Man Lymphocytes # (Manual) Monocytes # (Manual) PT INR D-Dimer POC ABG pH 7.164 L POC ABG pCO2 46.3 H POC ABG pO2 229 H Sodium Potassium Chloride Carbon Dioxide BUN Creatinine Glucose POC Glucose Lactic Acid 5.10 H* Uric Acid Calcium Total Bilirubin AST ALT Total Creatine Kinase CK-MB (CK-2) CK-MB (CK-2) Rel Index Troponin T 0.035 H C-Reactive Protein NT-Pro-B Natriuret Pep Total Protein Albumin LDL Cholesterol Direct Urine WBC (Auto) 08/21/18 08/21/18 08/21/18 06:45 06:45 06:53 WBC RBC Hgb Hct MCV RDW Plt Count Lymph % (Auto) [place] % (Auto) Eos % (Auto) Baso % (Auto) Lymph # Seg Neuts % (Manual) Lymphocytes % (Manual) Monocytes % (Manual) Basophils % (Manual) Nucleated RBC % Seg Neutrophils # Man Lymphocytes # (Manual) Monocytes # (Manual) PT INR D-Dimer POC ABG pH 7.160 L POC ABG pCO2 46.8 H POC ABG pO2 Sodium Potassium Chloride Carbon Dioxide BUN Creatinine Glucose POC Glucose Lactic Acid 4.70 H* Uric Acid Calcium Total Bilirubin AST ALT Total Creatine Kinase 234 H CK-MB (CK-2) 9.1 H CK-MB (CK-2) Rel Index Troponin T 0.032 H C-Reactive Protein NT-Pro-B Natriuret Pep Total Protein Albumin LDL Cholesterol Direct Urine WBC (Auto) 08/21/18 08/21/18 08/21/18 10:43 10:43 10:45 WBC RBC Hgb Hct MCV RDW Plt Count Lymph % (Auto) [place] % (Auto) Eos % (Auto) Baso % (Auto) Lymph # Seg Neuts % (Manual) Lymphocytes % (Manual) Monocytes % (Manual) Basophils % (Manual) Nucleated RBC % Seg Neutrophils # Man Lymphocytes # (Manual) Monocytes # (Manual) PT INR D-Dimer POC ABG pH POC ABG pCO2 POC ABG pO2 Sodium Potassium Chloride Carbon Dioxide 17 L BUN 59 H Creatinine 4.2 H Glucose POC Glucose Lactic Acid 3.70 H* Uric Acid Calcium Total Bilirubin AST ALT Total Creatine Kinase 222 H CK-MB (CK-2) 9.2 H CK-MB (CK-2) Rel Index 4.1 H Troponin T 0.044 H D C-Reactive Protein NT-Pro-B Natriuret Pep Total Protein Albumin LDL Cholesterol Direct Urine WBC (Auto) 08/21/18 08/21/18 08/21/18 11:38 12:33 15:03 WBC RBC Hgb Hct MCV RDW Plt Count Lymph % (Auto) [place] % (Auto) Eos % (Auto) Baso % (Auto) Lymph # Seg Neuts % (Manual) Lymphocytes % (Manual) Monocytes % (Manual) Basophils % (Manual) Nucleated RBC % Seg Neutrophils # Man Lymphocytes # (Manual) Monocytes # (Manual) PT INR D-Dimer POC ABG pH 7.250 L POC ABG pCO2 POC ABG pO2 121 H Sodium Potassium Chloride Carbon Dioxide BUN Creatinine Glucose POC Glucose 129 H Lactic Acid Uric Acid Calcium Total Bilirubin AST ALT Total Creatine Kinase CK-MB (CK-2) CK-MB (CK-2) Rel Index Troponin T C-Reactive Protein NT-Pro-B Natriuret Pep Total Protein Albumin LDL Cholesterol Direct Urine WBC (Auto) 13.0 H 08/21/18 08/22/18 08/22/18 15:47 00:01 04:27 WBC RBC Hgb Hct MCV RDW Plt Count Lymph % (Auto) [place] % (Auto) Eos % (Auto) Baso % (Auto) Lymph # Seg Neuts % (Manual) Lymphocytes % (Manual) Monocytes % (Manual) Basophils % (Manual) Nucleated RBC % Seg Neutrophils # Man Lymphocytes # (Manual) Monocytes # (Manual) PT INR D-Dimer POC ABG pH 7.457 H POC ABG pCO2 POC ABG pO2 117 H Sodium Potassium Chloride Carbon Dioxide BUN Creatinine Glucose POC Glucose 211 H Lactic Acid 2.70 H* Uric Acid Calcium Total Bilirubin AST ALT Total Creatine Kinase CK-MB (CK-2) CK-MB (CK-2) Rel Index Troponin T C-Reactive Protein NT-Pro-B Natriuret Pep Total Protein Albumin LDL Cholesterol Direct Urine WBC (Auto) 08/22/18 08/22/18 08/22/18 05:46 06:10 06:10 WBC RBC 2.27 L Hgb 7.0 L Hct 21.2 L MCV RDW 16.8 H Plt Count 129 L Lymph % (Auto) [place] % (Auto) Eos % (Auto) Baso % (Auto) Lymph # Seg Neuts % (Manual) 95.0 H Lymphocytes % (Manual) 1.0 L Monocytes % (Manual) Basophils % (Manual) Nucleated RBC % 1.0 H Seg Neutrophils # Man 7.8 H Lymphocytes # (Manual) 0.1 L Monocytes # (Manual) PT INR D-Dimer POC ABG pH POC ABG pCO2 POC ABG pO2 Sodium Potassium Chloride Carbon Dioxide 20 L BUN 63 H Creatinine 3.9 H Glucose 205 H POC Glucose 223 H Lactic Acid Uric Acid Calcium Total Bilirubin AST ALT Total Creatine Kinase CK-MB (CK-2) CK-MB (CK-2) Rel Index Troponin T C-Reactive Protein NT-Pro-B Natriuret Pep Total Protein Albumin LDL Cholesterol Direct Urine WBC (Auto) 08/22/18 08/22/18 08/22/18 06:10 12:57 16:21 WBC RBC Hgb Hct MCV RDW Plt Count Lymph % (Auto) [place] % (Auto) Eos % (Auto) Baso % (Auto) Lymph # Seg Neuts % (Manual) Lymphocytes % (Manual) Monocytes % (Manual) Basophils % (Manual) Nucleated RBC % Seg Neutrophils # Man Lymphocytes # (Manual) Monocytes # (Manual) PT INR D-Dimer POC ABG pH 7.477 H POC ABG pCO2 POC ABG pO2 Sodium Potassium Chloride Carbon Dioxide BUN Creatinine Glucose POC Glucose 166 H Lactic Acid Uric Acid Calcium Total Bilirubin AST ALT Total Creatine Kinase CK-MB (CK-2) CK-MB (CK-2) Rel Index Troponin T C-Reactive Protein 23.60 H NT-Pro-B Natriuret Pep Total Protein Albumin LDL Cholesterol Direct Urine WBC (Auto) 08/22/18 08/22/18 08/23/18 17:41 23:42 04:38 WBC RBC Hgb Hct MCV RDW Plt Count Lymph % (Auto) [place] % (Auto) Eos % (Auto) Baso % (Auto) Lymph # Seg Neuts % (Manual) Lymphocytes % (Manual) Monocytes % (Manual) Basophils % (Manual) Nucleated RBC % Seg Neutrophils # Man Lymphocytes # (Manual) Monocytes # (Manual) PT INR D-Dimer POC ABG pH 7.249 L POC ABG pCO2 53.5 H POC ABG pO2 73 L Sodium Potassium Chloride Carbon Dioxide BUN Creatinine Glucose POC Glucose 131 H 168 H Lactic Acid Uric Acid Calcium Total Bilirubin AST ALT Total Creatine Kinase CK-MB (CK-2) CK-MB (CK-2) Rel Index Troponin T C-Reactive Protein NT-Pro-B Natriuret Pep Total Protein Albumin LDL Cholesterol Direct Urine WBC (Auto) 08/23/18 08/23/18 08/23/18 04:52 04:52 04:52 WBC RBC 2.39 L Hgb 7.5 L Hct 22.8 L MCV 95 H RDW 17.6 H Plt Count Lymph % (Auto) [place] % (Auto) Eos % (Auto) Baso % (Auto) Lymph # Seg Neuts % (Manual) Lymphocytes % (Manual) Monocytes % (Manual) Basophils % (Manual) Nucleated RBC % Seg Neutrophils # Man Lymphocytes # (Manual) Monocytes # (Manual) PT INR D-Dimer POC ABG pH POC ABG pCO2 POC ABG pO2 Sodium Potassium 5.6 H 5.6 H Chloride Carbon Dioxide 21 L BUN 71 H 72 H Creatinine 4.1 H 4.0 H Glucose 141 H 140 H POC Glucose Lactic Acid Uric Acid Calcium 8.3 L 8.2 L Total Bilirubin AST 247 H ALT 220 H Total Creatine Kinase CK-MB (CK-2) CK-MB (CK-2) Rel Index Troponin T C-Reactive Protein NT-Pro-B Natriuret Pep Total Protein Albumin 2.8 L LDL Cholesterol Direct Urine WBC (Auto) 08/23/18 08/23/18 08/23/18 05:50 08:38 12:21 WBC RBC Hgb Hct MCV RDW Plt Count Lymph % (Auto) [place] % (Auto) Eos % (Auto) Baso % (Auto) Lymph # Seg Neuts % (Manual) Lymphocytes % (Manual) Monocytes % (Manual) Basophils % (Manual) Nucleated RBC % Seg Neutrophils # Man Lymphocytes # (Manual) Monocytes # (Manual) PT INR D-Dimer POC ABG pH POC ABG pCO2 POC ABG pO2 Sodium Potassium Chloride Carbon Dioxide BUN Creatinine Glucose POC Glucose 160 H 177 H Lactic Acid Uric Acid Calcium Total Bilirubin AST ALT Total Creatine Kinase CK-MB (CK-2) CK-MB (CK-2) Rel Index Troponin T C-Reactive Protein NT-Pro-B Natriuret Pep 80699 H Total Protein Albumin LDL Cholesterol Direct Urine WBC (Auto) 08/23/18 08/23/18 08/23/18 12:36 14:24 18:05 WBC RBC Hgb Hct MCV RDW Plt Count Lymph % (Auto) [place] % (Auto) Eos % (Auto) Baso % (Auto) Lymph # Seg Neuts % (Manual) Lymphocytes % (Manual) Monocytes % (Manual) Basophils % (Manual) Nucleated RBC % Seg Neutrophils # Man Lymphocytes # (Manual) Monocytes # (Manual) PT INR D-Dimer POC ABG pH 7.337 L POC ABG pCO2 POC ABG pO2 145 H Sodium 136 L Potassium 5.2 H Chloride Carbon Dioxide BUN 76 H Creatinine 4.2 H Glucose 158 H POC Glucose 169 H Lactic Acid Uric Acid Calcium 8.1 L Total Bilirubin AST ALT Total Creatine Kinase CK-MB (CK-2) CK-MB (CK-2) Rel Index Troponin T C-Reactive Protein NT-Pro-B Natriuret Pep Total Protein Albumin LDL Cholesterol Direct Urine WBC (Auto) 08/23/18 08/23/18 08/24/18 22:43 23:42 05:16 WBC RBC Hgb Hct MCV RDW Plt Count Lymph % (Auto) [place] % (Auto) Eos % (Auto) Baso % (Auto) Lymph # Seg Neuts % (Manual) Lymphocytes % (Manual) Monocytes % (Manual) Basophils % (Manual) Nucleated RBC % Seg Neutrophils # Man Lymphocytes # (Manual) Monocytes # (Manual) PT INR D-Dimer POC ABG pH POC ABG pCO2 POC ABG pO2 Sodium 136 L Potassium 5.3 H 5.2 H Chloride 97.9 L Carbon Dioxide BUN 80 H 86 H Creatinine 4.0 H 4.3 H Glucose 164 H 202 H POC Glucose 183 H Lactic Acid Uric Acid Calcium 7.9 L Total Bilirubin AST ALT Total Creatine Kinase CK-MB (CK-2) CK-MB (CK-2) Rel Index Troponin T C-Reactive Protein NT-Pro-B Natriuret Pep Total Protein Albumin LDL Cholesterol Direct Urine WBC (Auto) 08/24/18 08/24/18 08/24/18 05:21 05:29 10:10 WBC RBC 2.47 L Hgb 7.5 L Hct 23.3 L MCV RDW 17.5 H Plt Count 118 L Lymph % (Auto) [place] % (Auto) Eos % (Auto) Baso % (Auto) Lymph # Seg Neuts % (Manual) 92.0 H Lymphocytes % (Manual) 2.0 L Monocytes % (Manual) Basophils % (Manual) Nucleated RBC % Seg Neutrophils # Man 8.8 H Lymphocytes # (Manual) 0.2 L Monocytes # (Manual) PT INR D-Dimer POC ABG pH 7.243 L POC ABG pCO2 56.8 H POC ABG pO2 Sodium Potassium Chloride Carbon Dioxide BUN Creatinine Glucose POC Glucose 209 H Lactic Acid Uric Acid Calcium Total Bilirubin AST ALT Total Creatine Kinase CK-MB (CK-2) CK-MB (CK-2) Rel Index Troponin T C-Reactive Protein NT-Pro-B Natriuret Pep Total Protein Albumin LDL Cholesterol Direct Urine WBC (Auto) 08/24/18 08/24/18 08/24/18 10:10 11:19 13:41 WBC RBC Hgb Hct MCV RDW Plt Count Lymph % (Auto) [place] % (Auto) Eos % (Auto) Baso % (Auto) Lymph # Seg Neuts % (Manual) Lymphocytes % (Manual) Monocytes % (Manual) Basophils % (Manual) Nucleated RBC % Seg Neutrophils # Man Lymphocytes # (Manual) Monocytes # (Manual) PT INR D-Dimer 1978.25 H POC ABG pH POC ABG pCO2 POC ABG pO2 Sodium Potassium Chloride Carbon Dioxide BUN Creatinine Glucose POC Glucose 212 H Lactic Acid Uric Acid Calcium Total Bilirubin AST ALT Total Creatine Kinase CK-MB (CK-2) CK-MB (CK-2) Rel Index Troponin T C-Reactive Protein NT-Pro-B Natriuret Pep 00946 H Total Protein Albumin LDL Cholesterol Direct Urine WBC (Auto) 08/24/18 08/24/18 08/24/18 13:41 14:27 17:23 WBC RBC Hgb Hct MCV RDW Plt Count Lymph % (Auto) [place] % (Auto) Eos % (Auto) Baso % (Auto) Lymph # Seg Neuts % (Manual) Lymphocytes % (Manual) Monocytes % (Manual) Basophils % (Manual) Nucleated RBC % Seg Neutrophils # Man Lymphocytes # (Manual) Monocytes # (Manual) PT INR D-Dimer POC ABG pH POC ABG pCO2 POC ABG pO2 Sodium 136 L Potassium 5.1 H Chloride 97.8 L Carbon Dioxide BUN 90 H Creatinine 4.1 H Glucose 157 H POC Glucose 155 H Lactic Acid Uric Acid Calcium 8.0 L Total Bilirubin AST ALT Total Creatine Kinase CK-MB (CK-2) CK-MB (CK-2) Rel Index Troponin T C-Reactive Protein 9.00 H NT-Pro-B Natriuret Pep Total Protein Albumin LDL Cholesterol Direct Urine WBC (Auto) 08/25/18 08/25/18 08/25/18 00:38 05:22 05:57 WBC RBC Hgb Hct MCV RDW Plt Count Lymph % (Auto) [place] % (Auto) Eos % (Auto) Baso % (Auto) Lymph # Seg Neuts % (Manual) Lymphocytes % (Manual) Monocytes % (Manual) Basophils % (Manual) Nucleated RBC % Seg Neutrophils # Man Lymphocytes # (Manual) Monocytes # (Manual) PT INR D-Dimer POC ABG pH 7.238 L POC ABG pCO2 58.2 H POC ABG pO2 Sodium Potassium 5.4 H Chloride Carbon Dioxide BUN 98 H Creatinine 4.3 H Glucose 217 H POC Glucose 176 H Lactic Acid Uric Acid Calcium 8.3 L Total Bilirubin AST ALT Total Creatine Kinase CK-MB (CK-2) CK-MB (CK-2) Rel Index Troponin T C-Reactive Protein NT-Pro-B Natriuret Pep 76474 H Total Protein Albumin LDL Cholesterol Direct Urine WBC (Auto) 08/25/18 08/25/18 08/25/18 06:56 08:59 11:38 WBC RBC Hgb Hct MCV RDW Plt Count Lymph % (Auto) [place] % (Auto) Eos % (Auto) Baso % (Auto) Lymph # Seg Neuts % (Manual) Lymphocytes % (Manual) Monocytes % (Manual) Basophils % (Manual) Nucleated RBC % Seg Neutrophils # Man Lymphocytes # (Manual) Monocytes # (Manual) PT INR D-Dimer POC ABG pH 7.348 L POC ABG pCO2 48.6 H POC ABG pO2 Sodium Potassium Chloride Carbon Dioxide BUN Creatinine Glucose POC Glucose 247 H 235 H Lactic Acid Uric Acid Calcium Total Bilirubin AST ALT Total Creatine Kinase CK-MB (CK-2) CK-MB (CK-2) Rel Index Troponin T C-Reactive Protein NT-Pro-B Natriuret Pep Total Protein Albumin LDL Cholesterol Direct Urine WBC (Auto) 08/25/18 08/25/18 08/25/18 12:29 16:43 16:43 WBC 14.7 H RBC 2.90 L Hgb 8.9 L Hct 27.4 L MCV 95 H RDW 17.3 H Plt Count 119 L Lymph % (Auto) [place] % (Auto) Eos % (Auto) Baso % (Auto) Lymph # Seg Neuts % (Manual) 94.0 H Lymphocytes % (Manual) 2.0 L Monocytes % (Manual) Basophils % (Manual) Nucleated RBC % Seg Neutrophils # Man 13.8 H Lymphocytes # (Manual) 0.3 L Monocytes # (Manual) PT 15.6 H INR 1.27 H D-Dimer POC ABG pH POC ABG pCO2 POC ABG pO2 Sodium Potassium Chloride Carbon Dioxide BUN Creatinine Glucose POC Glucose 237 H Lactic Acid Uric Acid Calcium Total Bilirubin AST ALT Total Creatine Kinase CK-MB (CK-2) CK-MB (CK-2) Rel Index Troponin T C-Reactive Protein NT-Pro-B Natriuret Pep Total Protein Albumin LDL Cholesterol Direct Urine WBC (Auto) 08/25/18 08/26/18 08/26/18 17:22 00:16 04:56 WBC RBC Hgb Hct MCV RDW Plt Count Lymph % (Auto) [place] % (Auto) Eos % (Auto) Baso % (Auto) Lymph # Seg Neuts % (Manual) Lymphocytes % (Manual) Monocytes % (Manual) Basophils % (Manual) Nucleated RBC % Seg Neutrophils # Man Lymphocytes # (Manual) Monocytes # (Manual) PT INR D-Dimer POC ABG pH POC ABG pCO2 45.2 H POC ABG pO2 Sodium Potassium Chloride Carbon Dioxide BUN Creatinine Glucose POC Glucose 200 H 180 H Lactic Acid Uric Acid Calcium Total Bilirubin AST ALT Total Creatine Kinase CK-MB (CK-2) CK-MB (CK-2) Rel Index Troponin T C-Reactive Protein NT-Pro-B Natriuret Pep Total Protein Albumin LDL Cholesterol Direct Urine WBC (Auto) 08/26/18 08/26/18 08/26/18 05:53 06:20 08:48 WBC RBC Hgb Hct MCV RDW Plt Count Lymph % (Auto) [place] % (Auto) Eos % (Auto) Baso % (Auto) Lymph # Seg Neuts % (Manual) Lymphocytes % (Manual) Monocytes % (Manual) Basophils % (Manual) Nucleated RBC % Seg Neutrophils # Man Lymphocytes # (Manual) Monocytes # (Manual) PT INR D-Dimer POC ABG pH POC ABG pCO2 POC ABG pO2 Sodium Potassium Chloride Carbon Dioxide BUN 106 H Creatinine 3.9 H Glucose 137 H POC Glucose 131 H 126 H Lactic Acid Uric Acid Calcium 8.1 L Total Bilirubin AST ALT Total Creatine Kinase CK-MB (CK-2) CK-MB (CK-2) Rel Index Troponin T C-Reactive Protein NT-Pro-B Natriuret Pep > 47685 H Total Protein Albumin LDL Cholesterol Direct Urine WBC (Auto) 08/26/18 08/26/1808/26/19 11:39 17:33 18:02 WBC RBC Hgb Hct MCV RDW Plt Count Lymph % (Auto) [place] % (Auto) Eos % (Auto) Baso % (Auto) Lymph # Seg Neuts % (Manual) Lymphocytes % (Manual) Monocytes % (Manual) Basophils % (Manual) Nucleated RBC % Seg Neutrophils # Man Lymphocytes # (Manual) Monocytes # (Manual) PT INR D-Dimer POC ABG pH POC ABG pCO2 POC ABG pO2 58 L Sodium Potassium Chloride Carbon Dioxide BUN Creatinine Glucose POC Glucose 156 H 173 H Lactic Acid Uric Acid Calcium Total Bilirubin AST ALT Total Creatine Kinase CK-MB (CK-2) CK-MB (CK-2) Rel Index Troponin T C-Reactive Protein NT-Pro-B Natriuret Pep Total Protein Albumin LDL Cholesterol Direct Urine WBC (Auto) 08/26/18 08/27/18 08/27/18 23:12 04:59 11:51 WBC RBC Hgb Hct MCV RDW Plt Count Lymph % (Auto) [place] % (Auto) Eos % (Auto) Baso % (Auto) Lymph # Seg Neuts % (Manual) Lymphocytes % (Manual) Monocytes % (Manual) Basophils % (Manual) Nucleated RBC % Seg Neutrophils # Man Lymphocytes # (Manual) Monocytes # (Manual) PT INR D-Dimer POC ABG pH 7.563 H POC ABG pCO2 < 30 L POC ABG pO2 69 L Sodium Potassium Chloride Carbon Dioxide BUN Creatinine Glucose POC Glucose 130 H 107 H Lactic Acid Uric Acid Calcium Total Bilirubin AST ALT Total Creatine Kinase CK-MB (CK-2) CK-MB (CK-2) Rel Index Troponin T C-Reactive Protein NT-Pro-B Natriuret Pep Total Protein Albumin LDL Cholesterol Direct Urine WBC (Auto) 08/27/18 08/27/18 08/27/18 11:58 11:58 11:58 WBC RBC 2.66 L Hgb 8.1 L Hct 24.7 L MCV RDW 16.7 H Plt Count Lymph % (Auto) [place] % (Auto) Eos % (Auto) Baso % (Auto) Lymph # Seg Neuts % (Manual) Lymphocytes % (Manual) Monocytes % (Manual) Basophils % (Manual) Nucleated RBC % Seg Neutrophils # Man Lymphocytes # (Manual) Monocytes # (Manual) PT INR D-Dimer POC ABG pH POC ABG pCO2 POC ABG pO2 Sodium Potassium Chloride Carbon Dioxide BUN 71 H Creatinine 2.9 H Glucose POC Glucose Lactic Acid Uric Acid Calcium 7.6 L Total Bilirubin AST ALT Total Creatine Kinase CK-MB (CK-2) CK-MB (CK-2) Rel Index Troponin T C-Reactive Protein NT-Pro-B Natriuret Pep > 53357 H Total Protein 6.1 L Albumin 2.4 L LDL Cholesterol Direct Urine WBC (Auto) 08/28/18 08/28/18 08/28/18 04:38 04:49 04:49 WBC RBC 2.65 L Hgb 8.3 L Hct 25.3 L MCV 96 H RDW 17.3 H Plt Count 83 L Lymph % (Auto) [place] % (Auto) Eos % (Auto) Baso % (Auto) Lymph # Seg Neuts % (Manual) Lymphocytes % (Manual) Monocytes % (Manual) Basophils % (Manual) Nucleated RBC % Seg Neutrophils # Man Lymphocytes # (Manual) Monocytes # (Manual) PT INR D-Dimer POC ABG pH POC ABG pCO2 POC ABG pO2 112 H Sodium Potassium Chloride Carbon Dioxide BUN Creatinine Glucose POC Glucose Lactic Acid Uric Acid Calcium Total Bilirubin AST ALT Total Creatine Kinase CK-MB (CK-2) CK-MB (CK-2) Rel Index Troponin T C-Reactive Protein NT-Pro-B Natriuret Pep > 86723 H Total Protein Albumin LDL Cholesterol Direct Urine WBC (Auto) 08/28/18 08/28/18 08/29/18 04:49 14:24 00:11 WBC RBC Hgb Hct MCV RDW Plt Count Lymph % (Auto) [place] % (Auto) Eos % (Auto) Baso % (Auto) Lymph # Seg Neuts % (Manual) Lymphocytes % (Manual) Monocytes % (Manual) Basophils % (Manual) Nucleated RBC % Seg Neutrophils # Man Lymphocytes # (Manual) Monocytes # (Manual) PT INR D-Dimer POC ABG pH 7.278 L POC ABG pCO2 57.9 H POC ABG pO2 79 L Sodium Potassium Chloride Carbon Dioxide BUN 69 H Creatinine 2.4 H Glucose POC Glucose 171 H Lactic Acid Uric Acid Calcium 7.7 L Total Bilirubin AST ALT Total Creatine Kinase CK-MB (CK-2) CK-MB (CK-2) Rel Index Troponin T C-Reactive Protein NT-Pro-B Natriuret Pep Total Protein 5.4 L Albumin 2.2 L LDL Cholesterol Direct Urine WBC (Auto) 08/29/18 08/29/18 08/29/18 04:39 05:35 05:35 WBC 13.6 H RBC 3.09 L Hgb 9.4 L Hct 29.5 L MCV 96 H RDW 17.9 H Plt Count 127 L Lymph % (Auto) Lea % (Auto) Eos % (Auto) Baso % (Auto) Lymph # Seg Neuts % (Manual) Lymphocytes % (Manual) Monocytes % (Manual) Basophils % (Manual) Nucleated RBC % Seg Neutrophils # Man Lymphocytes # (Manual) Monocytes # (Manual) PT INR D-Dimer POC ABG pH 7.312 L POC ABG pCO2 57.6 H POC ABG pO2 79 L Sodium Potassium Chloride Carbon Dioxide BUN 42 H Creatinine 1.9 H Glucose 107 H POC Glucose Lactic Acid Uric Acid Calcium Total Bilirubin AST ALT Total Creatine Kinase CK-MB (CK-2) CK-MB (CK-2) Rel Index Troponin T C-Reactive Protein NT-Pro-B Natriuret Pep Total Protein Albumin LDL Cholesterol Direct Urine WBC (Auto) 08/29/18 08/29/18 08/29/18 05:48 11:37 15:32 WBC RBC Hgb Hct MCV RDW Plt Count Lymph % (Auto) Lea % (Auto) Eos % (Auto) Baso % (Auto) Lymph # Seg Neuts % (Manual) Lymphocytes % (Manual) Monocytes % (Manual) Basophils % (Manual) Nucleated RBC % Seg Neutrophils # Man Lymphocytes # (Manual) Monocytes # (Manual) PT INR D-Dimer POC ABG pH POC ABG pCO2 47.0 H POC ABG pO2 78 L Sodium Potassium Chloride Carbon Dioxide BUN Creatinine Glucose POC Glucose 114 H 116 H Lactic Acid Uric Acid Calcium Total Bilirubin AST ALT Total Creatine Kinase CK-MB (CK-2) CK-MB (CK-2) Rel Index Troponin T C-Reactive Protein NT-Pro-B Natriuret Pep Total Protein Albumin LDL Cholesterol Direct Urine WBC (Auto) 08/29/18 08/30/18 08/30/18 17:28 00:17 04:41 WBC RBC Hgb Hct MCV RDW Plt Count Lymph % (Auto) [place] % (Auto) Eos % (Auto) Baso % (Auto) Lymph # Seg Neuts % (Manual) Lymphocytes % (Manual) Monocytes % (Manual) Basophils % (Manual) Nucleated RBC % Seg Neutrophils # Man Lymphocytes # (Manual) Monocytes # (Manual) PT INR D-Dimer POC ABG pH POC ABG pCO2 48.1 H POC ABG pO2 Sodium Potassium Chloride Carbon Dioxide BUN Creatinine Glucose POC Glucose 174 H 132 H Lactic Acid Uric Acid Calcium Total Bilirubin AST ALT Total Creatine Kinase CK-MB (CK-2) CK-MB (CK-2) Rel Index Troponin T C-Reactive Protein NT-Pro-B Natriuret Pep Total Protein Albumin LDL Cholesterol Direct Urine WBC (Auto) 08/30/18 08/30/18 08/30/18 05:17 05:34 06:10 WBC RBC 2.68 L Hgb 8.2 L Hct 25.6 L MCV 96 H RDW 17.2 H Plt Count 118 L Lymph % (Auto) [place] % (Auto) Eos % (Auto) Baso % (Auto) Lymph # Seg Neuts % (Manual) Lymphocytes % (Manual) Monocytes % (Manual) Basophils % (Manual) Nucleated RBC % Seg Neutrophils # Man Lymphocytes # (Manual) Monocytes # (Manual) PT INR D-Dimer POC ABG pH POC ABG pCO2 POC ABG pO2 Sodium Potassium Chloride Carbon Dioxide BUN 54 H Creatinine 2.4 H Glucose 120 H POC Glucose 141 H Lactic Acid Uric Acid Calcium Total Bilirubin AST ALT Total Creatine Kinase CK-MB (CK-2) CK-MB (CK-2) Rel Index Troponin T C-Reactive Protein NT-Pro-B Natriuret Pep Total Protein Albumin LDL Cholesterol Direct Urine WBC (Auto) 08/30/18 08/30/18 08/30/18 13:11 18:11 23:55 WBC RBC Hgb Hct MCV RDW Plt Count Lymph % (Auto) [place] % (Auto) Eos % (Auto) Baso % (Auto) Lymph # Seg Neuts % (Manual) Lymphocytes % (Manual) Monocytes % (Manual) Basophils % (Manual) Nucleated RBC % Seg Neutrophils # Man Lymphocytes # (Manual) Monocytes # (Manual) PT INR D-Dimer POC ABG pH POC ABG pCO2 POC ABG pO2 Sodium Potassium Chloride Carbon Dioxide BUN Creatinine Glucose POC Glucose 167 H 144 H 144 H Lactic Acid Uric Acid Calcium Total Bilirubin AST ALT Total Creatine Kinase CK-MB (CK-2) CK-MB (CK-2) Rel Index Troponin T C-Reactive Protein NT-Pro-B Natriuret Pep Total Protein Albumin LDL Cholesterol Direct Urine WBC (Auto) 08/31/18 08/31/1808/31/19 05:07 05:07 05:44 WBC RBC 2.62 L Hgb 8.1 L Hct 25.0 L MCV 96 H RDW 17.5 H Plt Count 128 L Lymph % (Auto) [place] % (Auto) Eos % (Auto) Baso % (Auto) Lymph # Seg Neuts % (Manual) Lymphocytes % (Manual) Monocytes % (Manual) Basophils % (Manual) Nucleated RBC % Seg Neutrophils # Man Lymphocytes # (Manual) Monocytes # (Manual) PT INR D-Dimer POC ABG pH POC ABG pCO2 POC ABG pO2 Sodium Potassium Chloride Carbon Dioxide BUN 58 H Creatinine 2.3 H Glucose 103 H POC Glucose 109 H Lactic Acid Uric Acid Calcium Total Bilirubin AST ALT Total Creatine Kinase CK-MB (CK-2) CK-MB (CK-2) Rel Index Troponin T C-Reactive Protein NT-Pro-B Natriuret Pep Total Protein Albumin LDL Cholesterol Direct Urine WBC (Auto) 08/31/18 08/31/18 08/31/18 11:26 13:54 19:05 WBC RBC Hgb Hct MCV RDW Plt Count Lymph % (Auto) [place] % (Auto) Eos % (Auto) Baso % (Auto) Lymph # Seg Neuts % (Manual) Lymphocytes % (Manual) Monocytes % (Manual) Basophils % (Manual) Nucleated RBC % Seg Neutrophils # Man Lymphocytes # (Manual) Monocytes # (Manual) PT INR D-Dimer POC ABG pH POC ABG pCO2 POC ABG pO2 Sodium Potassium Chloride Carbon Dioxide BUN Creatinine Glucose POC Glucose 117 H 186 H Lactic Acid Uric Acid 9.6 H Calcium Total Bilirubin AST ALT Total Creatine Kinase CK-MB (CK-2) CK-MB (CK-2) Rel Index Troponin T C-Reactive Protein NT-Pro-B Natriuret Pep Total Protein Albumin LDL Cholesterol Direct Urine WBC (Auto) 08/31/18 09/01/18 09/01/18 23:50 06:27 09:21 WBC RBC 2.74 L Hgb 8.6 L Hct 25.8 L MCV RDW 17.3 H Plt Count Lymph % (Auto) [place] % (Auto) Eos % (Auto) Baso % (Auto) Lymph # Seg Neuts % (Manual) Lymphocytes % (Manual) Monocytes % (Manual) Basophils % (Manual) Nucleated RBC % Seg Neutrophils # Man Lymphocytes # (Manual) Monocytes # (Manual) PT INR D-Dimer POC ABG pH POC ABG pCO2 POC ABG pO2 Sodium Potassium Chloride Carbon Dioxide BUN Creatinine Glucose POC Glucose 141 H 62 L Lactic Acid Uric Acid Calcium Total Bilirubin AST ALT Total Creatine Kinase CK-MB (CK-2) CK-MB (CK-2) Rel Index Troponin T C-Reactive Protein NT-Pro-B Natriuret Pep Total Protein Albumin LDL Cholesterol Direct Urine WBC (Auto) 09/01/18 09/01/18 09/01/18 09:21 12:27 17:51 WBC RBC Hgb Hct MCV RDW Plt Count Lymph % (Auto) [place] % (Auto) Eos % (Auto) Baso % (Auto) Lymph # Seg Neuts % (Manual) Lymphocytes % (Manual) Monocytes % (Manual) Basophils % (Manual) Nucleated RBC % Seg Neutrophils # Man Lymphocytes # (Manual) Monocytes # (Manual) PT INR D-Dimer POC ABG pH POC ABG pCO2 POC ABG pO2 Sodium Potassium 3.0 L D Chloride 109.8 H Carbon Dioxide BUN 45 H Creatinine 1.7 H Glucose POC Glucose 106 H 108 H Lactic Acid Uric Acid Calcium 7.1 L D Total Bilirubin AST ALT Total Creatine Kinase CK-MB (CK-2) CK-MB (CK-2) Rel Index Troponin T C-Reactive Protein NT-Pro-B Natriuret Pep Total Protein Albumin LDL Cholesterol Direct Urine WBC (Auto) 09/02/18 09/02/18 09/02/18 05:16 05:16 12:01 WBC RBC 2.60 L Hgb 8.1 L Hct 24.8 L MCV 95 H RDW 17.1 H Plt Count Lymph % (Auto) [place] % (Auto) Eos % (Auto) Baso % (Auto) Lymph # Seg Neuts % (Manual) Lymphocytes % (Manual) Monocytes % (Manual) Basophils % (Manual) Nucleated RBC % Seg Neutrophils # Man Lymphocytes # (Manual) Monocytes # (Manual) PT INR D-Dimer POC ABG pH POC ABG pCO2 POC ABG pO2 Sodium Potassium Chloride Carbon Dioxide BUN 49 H Creatinine 1.8 H Glucose 107 H POC Glucose 124 H Lactic Acid Uric Acid Calcium 8.1 L Total Bilirubin AST ALT Total Creatine Kinase CK-MB (CK-2) CK-MB (CK-2) Rel Index Troponin T C-Reactive Protein NT-Pro-B Natriuret Pep Total Protein Albumin LDL Cholesterol Direct Urine WBC (Auto) 09/02/18 09/02/18 09/03/18 18:38 23:12 08:22 WBC RBC Hgb Hct MCV RDW Plt Count Lymph % (Auto) [place] % (Auto) Eos % (Auto) Baso % (Auto) Lymph # Seg Neuts % (Manual) Lymphocytes % (Manual) Monocytes % (Manual) Basophils % (Manual) Nucleated RBC % Seg Neutrophils # Man Lymphocytes # (Manual) Monocytes # (Manual) PT INR D-Dimer POC ABG pH POC ABG pCO2 POC ABG pO2 Sodium Potassium Chloride Carbon Dioxide BUN Creatinine Glucose POC Glucose 164 H 128 H 115 H Lactic Acid Uric Acid Calcium Total Bilirubin AST ALT Total Creatine Kinase CK-MB (CK-2) CK-MB (CK-2) Rel Index Troponin T C-Reactive Protein NT-Pro-B Natriuret Pep Total Protein Albumin LDL Cholesterol Direct Urine WBC (Auto) 09/03/18 09/03/18 09/03/18 11:48 16:37 20:48 WBC RBC Hgb Hct MCV RDW Plt Count Lymph % (Auto) [place] % (Auto) Eos % (Auto) Baso % (Auto) Lymph # Seg Neuts % (Manual) Lymphocytes % (Manual) Monocytes % (Manual) Basophils % (Manual) Nucleated RBC % Seg Neutrophils # Man Lymphocytes # (Manual) Monocytes # (Manual) PT INR D-Dimer POC ABG pH POC ABG pCO2 POC ABG pO2 Sodium Potassium Chloride Carbon Dioxide BUN Creatinine Glucose POC Glucose 203 H 146 H 150 H Lactic Acid Uric Acid Calcium Total Bilirubin AST ALT Total Creatine Kinase CK-MB (CK-2) CK-MB (CK-2) Rel Index Troponin T C-Reactive Protein NT-Pro-B Natriuret Pep Total Protein Albumin LDL Cholesterol Direct Urine WBC (Auto) 09/04/18 09/04/18 09/04/18 08:29 12:08 13:32 WBC RBC Hgb Hct MCV RDW Plt Count Lymph % (Auto) [place] % (Auto) Eos % (Auto) Baso % (Auto) Lymph # Seg Neuts % (Manual) Lymphocytes % (Manual) Monocytes % (Manual) Basophils % (Manual) Nucleated RBC % Seg Neutrophils # Man Lymphocytes # (Manual) Monocytes # (Manual) PT INR D-Dimer POC ABG pH POC ABG pCO2 POC ABG pO2 Sodium 136 L Potassium Chloride Carbon Dioxide BUN 42 H Creatinine 1.6 H Glucose 180 H POC Glucose 129 H 149 H Lactic Acid Uric Acid Calcium Total Bilirubin AST ALT Total Creatine Kinase CK-MB (CK-2) CK-MB (CK-2) Rel Index Troponin T C-Reactive Protein NT-Pro-B Natriuret Pep Total Protein Albumin LDL Cholesterol Direct Urine WBC (Auto) 09/04/18 09/05/18 09/05/18 16:33 07:03 07:03 WBC RBC 2.92 L Hgb 9.1 L Hct 27.4 L MCV RDW 17.3 H Plt Count Lymph % (Auto) [place] % (Auto) Eos % (Auto) Baso % (Auto) Lymph # Seg Neuts % (Manual) 81.0 H Lymphocytes % (Manual) 7.0 L Monocytes % (Manual) 8.0 H Basophils % (Manual) Nucleated RBC % Seg Neutrophils # Man Lymphocytes # (Manual) 0.5 L Monocytes # (Manual) PT INR D-Dimer POC ABG pH POC ABG pCO2 POC ABG pO2 Sodium Potassium Chloride Carbon Dioxide BUN 40 H Creatinine Glucose 153 H POC Glucose 165 H Lactic Acid Uric Acid Calcium Total Bilirubin AST ALT Total Creatine Kinase CK-MB (CK-2) CK-MB (CK-2) Rel Index Troponin T C-Reactive Protein NT-Pro-B Natriuret Pep Total Protein Albumin LDL Cholesterol Direct Urine WBC (Auto) 09/05/18 09/05/18 09/05/18 08:00 11:51 21:20 WBC RBC Hgb Hct MCV RDW Plt Count Lymph % (Auto) [place] % (Auto) Eos % (Auto) Baso % (Auto) Lymph # Seg Neuts % (Manual) Lymphocytes % (Manual) Monocytes % (Manual) Basophils % (Manual) Nucleated RBC % Seg Neutrophils # Man Lymphocytes # (Manual) Monocytes # (Manual) PT INR D-Dimer POC ABG pH POC ABG pCO2 POC ABG pO2 Sodium Potassium Chloride Carbon Dioxide BUN Creatinine Glucose POC Glucose 146 H 207 H 114 H Lactic Acid Uric Acid Calcium Total Bilirubin AST ALT Total Creatine Kinase CK-MB (CK-2) CK-MB (CK-2) Rel Index Troponin T C-Reactive Protein NT-Pro-B Natriuret Pep Total Protein Albumin LDL Cholesterol Direct Urine WBC (Auto) 09/06/18 09/06/18 09/06/18 06:42 06:42 11:38 WBC RBC 2.90 L Hgb 9.0 L Hct 27.0 L MCV RDW 17.4 H Plt Count 130 L Lymph % (Auto) [place] % (Auto) Eos % (Auto) Baso % (Auto) Lymph # Seg Neuts % (Manual) 79.0 H Lymphocytes % (Manual) 6.0 L Monocytes % (Manual) 12.0 H Basophils % (Manual) 2.0 H Nucleated RBC % Seg Neutrophils # Man Lymphocytes # (Manual) 0.3 L Monocytes # (Manual) PT INR D-Dimer POC ABG pH POC ABG pCO2 POC ABG pO2 Sodium 136 L Potassium Chloride Carbon Dioxide BUN 39 H Creatinine Glucose 106 H POC Glucose 265 H Lactic Acid Uric Acid Calcium Total Bilirubin AST ALT Total Creatine Kinase CK-MB (CK-2) CK-MB (CK-2) Rel Index Troponin T C-Reactive Protein NT-Pro-B Natriuret Pep Total Protein Albumin LDL Cholesterol Direct Urine WBC (Auto) 09/06/18 09/06/18 09/07/18 16:37 20:55 05:12 WBC RBC 2.80 L Hgb 8.7 L Hct 26.5 L MCV 95 H RDW 17.7 H Plt Count Lymph % (Auto) 13.3 L [place] % (Auto) 14.2 H Eos % (Auto) Baso % (Auto) 1.9 H Lymph # 0.7 L Seg Neuts % (Manual) Lymphocytes % (Manual) Monocytes % (Manual) Basophils % (Manual) Nucleated RBC % Seg Neutrophils # Man Lymphocytes # (Manual) Monocytes # (Manual) PT INR D-Dimer POC ABG pH POC ABG pCO2 POC ABG pO2 Sodium Potassium Chloride Carbon Dioxide BUN Creatinine Glucose POC Glucose 131 H 135 H Lactic Acid Uric Acid Calcium Total Bilirubin AST ALT Total Creatine Kinase CK-MB (CK-2) CK-MB (CK-2) Rel Index Troponin T C-Reactive Protein NT-Pro-B Natriuret Pep Total Protein Albumin LDL Cholesterol Direct Urine WBC (Auto) 09/07/18 09/07/18 09/07/18 05:12 11:28 15:32 WBC RBC Hgb Hct MCV RDW Plt Count Lymph % (Auto) [place] % (Auto) Eos % (Auto) Baso % (Auto) Lymph # Seg Neuts % (Manual) Lymphocytes % (Manual) Monocytes % (Manual) Basophils % (Manual) Nucleated RBC % Seg Neutrophils # Man Lymphocytes # (Manual) Monocytes # (Manual) PT INR D-Dimer POC ABG pH POC ABG pCO2 POC ABG pO2 Sodium Potassium Chloride Carbon Dioxide BUN 36 H Creatinine Glucose POC Glucose 176 H 131 H Lactic Acid Uric Acid Calcium Total Bilirubin AST ALT Total Creatine Kinase CK-MB (CK-2) CK-MB (CK-2) Rel Index Troponin T C-Reactive Protein NT-Pro-B Natriuret Pep Total Protein Albumin LDL Cholesterol Direct Urine WBC (Auto) 09/07/18 09/08/18 09/08/18 21:50 05:23 05:23 WBC RBC 2.72 L Hgb 8.5 L Hct 26.9 L MCV 99 H RDW 18.0 H Plt Count 136 L Lymph % (Auto) 13.1 L [place] % (Auto) 15.7 H Eos % (Auto) Baso % (Auto) 1.9 H Lymph # 0.7 L Seg Neuts % (Manual) Lymphocytes % (Manual) Monocytes % (Manual) Basophils % (Manual) Nucleated RBC % Seg Neutrophils # Man Lymphocytes # (Manual) Monocytes # (Manual) PT INR D-Dimer POC ABG pH POC ABG pCO2 POC ABG pO2 Sodium 134 L Potassium 5.2 H Chloride Carbon Dioxide BUN 36 H Creatinine Glucose POC Glucose 160 H Lactic Acid Uric Acid Calcium Total Bilirubin AST ALT Total Creatine Kinase CK-MB (CK-2) CK-MB (CK-2) Rel Index Troponin T C-Reactive Protein NT-Pro-B Natriuret Pep Total Protein Albumin LDL Cholesterol Direct Urine WBC (Auto) 09/08/18 09/08/18 09/09/18 12:33 16:57 05:52 WBC RBC 2.64 L Hgb 8.1 L Hct 25.2 L MCV 95 H RDW 17.8 H Plt Count Lymph % (Auto) [place] % (Auto) 14.3 H Eos % (Auto) Baso % (Auto) 1.9 H Lymph # 0.6 L Seg Neuts % (Manual) Lymphocytes % (Manual) Monocytes % (Manual) Basophils % (Manual) Nucleated RBC % Seg Neutrophils # Man Lymphocytes # (Manual) Monocytes # (Manual) PT INR D-Dimer POC ABG pH POC ABG pCO2 POC ABG pO2 Sodium Potassium Chloride Carbon Dioxide BUN Creatinine Glucose POC Glucose 198 H 195 H Lactic Acid Uric Acid Calcium Total Bilirubin AST ALT Total Creatine Kinase CK-MB (CK-2) CK-MB (CK-2) Rel Index Troponin T C-Reactive Protein NT-Pro-B Natriuret Pep Total Protein Albumin LDL Cholesterol Direct Urine WBC (Auto) 09/09/18 09/09/18 09/09/18 05:52 11:50 16:28 WBC RBC Hgb Hct MCV RDW Plt Count Lymph % (Auto) [place] % (Auto) Eos % (Auto) Baso % (Auto) Lymph # Seg Neuts % (Manual) Lymphocytes % (Manual) Monocytes % (Manual) Basophils % (Manual) Nucleated RBC % Seg Neutrophils # Man Lymphocytes # (Manual) Monocytes # (Manual) PT INR D-Dimer POC ABG pH POC ABG pCO2 POC ABG pO2 Sodium 136 L Potassium Chloride Carbon Dioxide BUN 34 H Creatinine Glucose POC Glucose 122 H 170 H Lactic Acid Uric Acid Calcium 8.1 L Total Bilirubin AST ALT Total Creatine Kinase CK-MB (CK-2) CK-MB (CK-2) Rel Index Troponin T C-Reactive Protein NT-Pro-B Natriuret Pep Total Protein Albumin LDL Cholesterol Direct Urine WBC (Auto) 09/09/18 09/10/18 09/10/18 22:02 05:09 05:09 WBC 3.9 L RBC 2.63 L Hgb 8.2 L Hct 25.0 L MCV 95 H RDW 17.4 H Plt Count Lymph % (Auto) [place] % (Auto) 15.9 H Eos % (Auto) Baso % (Auto) 2.0 H Lymph # 0.6 L Seg Neuts % (Manual) Lymphocytes % (Manual) Monocytes % (Manual) Basophils % (Manual) Nucleated RBC % Seg Neutrophils # Man Lymphocytes # (Manual) Monocytes # (Manual) PT INR D-Dimer POC ABG pH POC ABG pCO2 POC ABG pO2 Sodium Potassium 5.1 H Chloride Carbon Dioxide BUN 31 H Creatinine Glucose 106 H POC Glucose 144 H Lactic Acid Uric Acid Calcium 8.3 L Total Bilirubin AST ALT Total Creatine Kinase CK-MB (CK-2) CK-MB (CK-2) Rel Index Troponin T C-Reactive Protein NT-Pro-B Natriuret Pep Total Protein Albumin LDL Cholesterol Direct Urine WBC (Auto) 09/10/18 09/10/18 09/10/18 13:09 17:07 21:13 WBC RBC Hgb Hct MCV RDW Plt Count Lymph % (Auto) [place] % (Auto) Eos % (Auto) Baso % (Auto) Lymph # Seg Neuts % (Manual) Lymphocytes % (Manual) Monocytes % (Manual) Basophils % (Manual) Nucleated RBC % Seg Neutrophils # Man Lymphocytes # (Manual) Monocytes # (Manual) PT INR D-Dimer POC ABG pH POC ABG pCO2 POC ABG pO2 Sodium Potassium Chloride Carbon Dioxide BUN Creatinine Glucose POC Glucose 134 H 117 H 154 H Lactic Acid Uric Acid Calcium Total Bilirubin AST ALT Total Creatine Kinase CK-MB (CK-2) CK-MB (CK-2) Rel Index Troponin T C-Reactive Protein NT-Pro-B Natriuret Pep Total Protein Albumin LDL Cholesterol Direct Urine WBC (Auto) 09/11/18 09/11/18 09/11/18 06:00 06:00 09:11 WBC 3.5 L RBC 2.41 L Hgb 7.4 L Hct 23.0 L MCV 96 H RDW 18.1 H Plt Count Lymph % (Auto) [place] % (Auto) 15.3 H Eos % (Auto) 5.2 H Baso % (Auto) 2.6 H Lymph # 0.6 L Seg Neuts % (Manual) Lymphocytes % (Manual) Monocytes % (Manual) Basophils % (Manual) Nucleated RBC % Seg Neutrophils # Man Lymphocytes # (Manual) Monocytes # (Manual) PT INR D-Dimer POC ABG pH POC ABG pCO2 POC ABG pO2 Sodium Potassium 5.4 H Chloride Carbon Dioxide BUN 30 H Creatinine Glucose 108 H POC Glucose 124 H Lactic Acid Uric Acid Calcium Total Bilirubin AST ALT Total Creatine Kinase CK-MB (CK-2) CK-MB (CK-2) Rel Index Troponin T C-Reactive Protein NT-Pro-B Natriuret Pep Total Protein Albumin LDL Cholesterol Direct Urine WBC (Auto) 09/11/18 09/11/18 09/11/18 12:06 16:18 21:26 WBC RBC Hgb Hct MCV RDW Plt Count Lymph % (Auto) [place] % (Auto) Eos % (Auto) Baso % (Auto) Lymph # Seg Neuts % (Manual) Lymphocytes % (Manual) Monocytes % (Manual) Basophils % (Manual) Nucleated RBC % Seg Neutrophils # Man Lymphocytes # (Manual) Monocytes # (Manual) PT INR D-Dimer POC ABG pH POC ABG pCO2 POC ABG pO2 Sodium Potassium Chloride Carbon Dioxide BUN Creatinine Glucose POC Glucose 144 H 138 H 163 H Lactic Acid Uric Acid Calcium Total Bilirubin AST ALT Total Creatine Kinase CK-MB (CK-2) CK-MB (CK-2) Rel Index Troponin T C-Reactive Protein NT-Pro-B Natriuret Pep Total Protein Albumin LDL Cholesterol Direct Urine WBC (Auto) 09/12/18 09/12/18 09/12/18 09:17 09:17 11:16 WBC 4.0 L RBC 2.62 L Hgb 8.1 L Hct 25.0 L MCV 96 H RDW 17.8 H Plt Count Lymph % (Auto) [place] % (Auto) Eos % (Auto) Baso % (Auto) Lymph # Seg Neuts % (Manual) Lymphocytes % (Manual) Monocytes % (Manual) Basophils % (Manual) Nucleated RBC % Seg Neutrophils # Man Lymphocytes # (Manual) Monocytes # (Manual) PT INR D-Dimer POC ABG pH POC ABG pCO2 POC ABG pO2 Sodium Potassium 5.3 H Chloride Carbon Dioxide BUN 27 H Creatinine Glucose 113 H POC Glucose 147 H Lactic Acid Uric Acid Calcium Total Bilirubin AST ALT Total Creatine Kinase CK-MB (CK-2) CK-MB (CK-2) Rel Index Troponin T C-Reactive Protein NT-Pro-B Natriuret Pep Total Protein Albumin LDL Cholesterol Direct Urine WBC (Auto) 09/12/18 09/12/18 09/13/18 15:31 21:23 06:48 WBC 3.7 L RBC 2.49 L Hgb 7.7 L Hct 23.7 L MCV 95 H RDW 17.4 H Plt Count Lymph % (Auto) [place] % (Auto) Eos % (Auto) Baso % (Auto) Lymph # Seg Neuts % (Manual) Lymphocytes % (Manual) Monocytes % (Manual) Basophils % (Manual) Nucleated RBC % Seg Neutrophils # Man Lymphocytes # (Manual) Monocytes # (Manual) PT INR D-Dimer POC ABG pH POC ABG pCO2 POC ABG pO2 Sodium Potassium Chloride Carbon Dioxide BUN Creatinine Glucose POC Glucose 126 H 116 H Lactic Acid Uric Acid Calcium Total Bilirubin AST ALT Total Creatine Kinase CK-MB (CK-2) CK-MB (CK-2) Rel Index Troponin T C-Reactive Protein NT-Pro-B Natriuret Pep Total Protein Albumin LDL Cholesterol Direct Urine WBC (Auto) 09/13/18 09/13/18 09/13/18 06:48 16:49 21:44 WBC RBC Hgb Hct MCV RDW Plt Count Lymph % (Auto) [place] % (Auto) Eos % (Auto) Baso % (Auto) Lymph # Seg Neuts % (Manual) Lymphocytes % (Manual) Monocytes % (Manual) Basophils % (Manual) Nucleated RBC % Seg Neutrophils # Man Lymphocytes # (Manual) Monocytes # (Manual) PT INR D-Dimer POC ABG pH POC ABG pCO2 POC ABG pO2 Sodium Potassium 5.5 H Chloride Carbon Dioxide BUN 25 H Creatinine Glucose 106 H POC Glucose 112 H 117 H Lactic Acid Uric Acid Calcium Total Bilirubin AST ALT Total Creatine Kinase CK-MB (CK-2) CK-MB (CK-2) Rel Index Troponin T C-Reactive Protein NT-Pro-B Natriuret Pep Total Protein Albumin LDL Cholesterol Direct Urine WBC (Auto) 09/14/18 09/14/18 09/14/18 04:44 11:43 16:35 WBC RBC Hgb Hct MCV RDW Plt Count Lymph % (Auto) [place] % (Auto) Eos % (Auto) Baso % (Auto) Lymph # Seg Neuts % (Manual) Lymphocytes % (Manual) Monocytes % (Manual) Basophils % (Manual) Nucleated RBC % Seg Neutrophils # Man Lymphocytes # (Manual) Monocytes # (Manual) PT INR D-Dimer POC ABG pH POC ABG pCO2 POC ABG pO2 Sodium Potassium 5.1 H Chloride Carbon Dioxide BUN 23 H Creatinine Glucose 112 H POC Glucose 166 H 140 H Lactic Acid Uric Acid Calcium 8.2 L Total Bilirubin AST ALT Total Creatine Kinase CK-MB (CK-2) CK-MB (CK-2) Rel Index Troponin T C-Reactive Protein NT-Pro-B Natriuret Pep Total Protein Albumin LDL Cholesterol Direct Urine WBC (Auto) 09/14/18 09/15/18 09/15/18 21:44 11:41 16:34 WBC RBC Hgb Hct MCV RDW Plt Count Lymph % (Auto) [place] % (Auto) Eos % (Auto) Baso % (Auto) Lymph # Seg Neuts % (Manual) Lymphocytes % (Manual) Monocytes % (Manual) Basophils % (Manual) Nucleated RBC % Seg Neutrophils # Man Lymphocytes # (Manual) Monocytes # (Manual) PT INR D-Dimer POC ABG pH POC ABG pCO2 POC ABG pO2 Sodium Potassium Chloride Carbon Dioxide BUN Creatinine Glucose POC Glucose 172 H 143 H 144 H Lactic Acid Uric Acid Calcium Total Bilirubin AST ALT Total Creatine Kinase CK-MB (CK-2) CK-MB (CK-2) Rel Index Troponin T C-Reactive Protein NT-Pro-B Natriuret Pep Total Protein Albumin LDL Cholesterol Direct Urine WBC (Auto) 09/15/18 09/16/18 09/16/18 21:18 11:54 16:51 WBC RBC Hgb Hct MCV RDW Plt Count Lymph % (Auto) [place] % (Auto) Eos % (Auto) Baso % (Auto) Lymph # Seg Neuts % (Manual) Lymphocytes % (Manual) Monocytes % (Manual) Basophils % (Manual) Nucleated RBC % Seg Neutrophils # Man Lymphocytes # (Manual) Monocytes # (Manual) PT INR D-Dimer POC ABG pH POC ABG pCO2 POC ABG pO2 Sodium Potassium Chloride Carbon Dioxide BUN Creatinine Glucose POC Glucose 166 H 188 H 139 H Lactic Acid Uric Acid Calcium Total Bilirubin AST ALT Total Creatine Kinase CK-MB (CK-2) CK-MB (CK-2) Rel Index Troponin T C-Reactive Protein NT-Pro-B Natriuret Pep Total Protein Albumin LDL Cholesterol Direct Urine WBC (Auto) 09/16/18 09/17/18 09/17/18 22:05 04:51 04:51 WBC 3.5 L RBC 2.41 L Hgb 7.5 L Hct 22.9 L MCV 95 H RDW 16.6 H Plt Count Lymph % (Auto) [place] % (Auto) Eos % (Auto) Baso % (Auto) Lymph # Seg Neuts % (Manual) Lymphocytes % (Manual) Monocytes % (Manual) Basophils % (Manual) Nucleated RBC % Seg Neutrophils # Man Lymphocytes # (Manual) Monocytes # (Manual) PT INR D-Dimer POC ABG pH POC ABG pCO2 POC ABG pO2 Sodium Potassium Chloride Carbon Dioxide BUN 24 H Creatinine 1.6 H Glucose 116 H POC Glucose 182 H Lactic Acid Uric Acid Calcium 7.9 L Total Bilirubin AST ALT Total Creatine Kinase CK-MB (CK-2) CK-MB (CK-2) Rel Index Troponin T C-Reactive Protein NT-Pro-B Natriuret Pep Total Protein Albumin LDL Cholesterol Direct Urine WBC (Auto) 09/17/18 09/17/18 09/17/18 11:34 15:52 21:37 WBC RBC Hgb Hct MCV RDW Plt Count Lymph % (Auto) [place] % (Auto) Eos % (Auto) Baso % (Auto) Lymph # Seg Neuts % (Manual) Lymphocytes % (Manual) Monocytes % (Manual) Basophils % (Manual) Nucleated RBC % Seg Neutrophils # Man Lymphocytes # (Manual) Monocytes # (Manual) PT INR D-Dimer POC ABG pH POC ABG pCO2 POC ABG pO2 Sodium Potassium Chloride Carbon Dioxide BUN Creatinine Glucose POC Glucose 152 H 119 H 163 H Lactic Acid Uric Acid Calcium Total Bilirubin AST ALT Total Creatine Kinase CK-MB (CK-2) CK-MB (CK-2) Rel Index Troponin T C-Reactive Protein NT-Pro-B Natriuret Pep Total Protein Albumin LDL Cholesterol Direct Urine WBC (Auto) 09/18/18 09/18/18 09/18/18 05:23 08:09 12:19 WBC RBC Hgb Hct MCV RDW Plt Count Lymph % (Auto) [place]a % (Auto) Eos % (Auto) Baso % (Auto) Lymph # Seg Neuts % (Manual) Lymphocytes % (Manual) Monocytes % (Manual) Basophils % (Manual) Nucleated RBC % Seg Neutrophils # Man Lymphocytes # (Manual) Monocytes # (Manual) PT INR D-Dimer POC ABG pH POC ABG pCO2 POC ABG pO2 Sodium Potassium Chloride Carbon Dioxide BUN 26 H Creatinine Glucose 112 H POC Glucose 106 H 190 H Lactic Acid Uric Acid Calcium 8.2 L Total Bilirubin AST ALT Total Creatine Kinase CK-MB (CK-2) CK-MB (CK-2) Rel Index Troponin T C-Reactive Protein NT-Pro-B Natriuret Pep Total Protein Albumin LDL Cholesterol Direct Urine WBC (Auto) 09/18/18 16:29 WBC RBC Hgb Hct MCV RDW Plt Count Lymph % (Auto) Lea % (Auto) Eos % (Auto) Baso % (Auto) Lymph # Seg Neuts % (Manual) Lymphocytes % (Manual) Monocytes % (Manual) Basophils % (Manual) Nucleated RBC % Seg Neutrophils # Man Lymphocytes # (Manual) Monocytes # (Manual) PT INR D-Dimer POC ABG pH POC ABG pCO2 POC ABG pO2 Sodium Potassium Chloride Carbon Dioxide BUN Creatinine Glucose POC Glucose 144 H Lactic Acid Uric Acid Calcium Total Bilirubin AST ALT Total Creatine Kinase CK-MB (CK-2) CK-MB (CK-2) Rel Index Troponin T C-Reactive Protein NT-Pro-B Natriuret Pep Total Protein Albumin LDL Cholesterol Direct Urine WBC (Auto) Allied health notes reviewed: RT
[2018-09-18] MEDS: TYLENOL PO PRN (22:41)
[2018-09-19] MEDS: BENADRYL PO PRN (00:34)
[2018-09-19] MEDS: HumaLOG SUB-Q SCH (08:30)
[2018-09-19] MEDS: DUONEB *Not for PRN Use IH SCH (08:53)
[2018-09-19] MEDS: BROVANA NEBU IH SCH (08:53)
[2018-09-19] MEDS: PULMICORT IH SCH (08:54)
[2018-09-19] MEDS: KEPPRA PO SCH (09:20)
[2018-09-19] MEDS: APRESOLINE PO SCH (09:22)
[2018-09-19] MEDS: HEPARIN SUB-Q SCH (09:23)
[2018-09-19] MEDS: SODIUM CHLORIDE FLUSH SYRINGE 10 ML IV SCH (09:23)
[2018-09-19 09:42] VITALS: BP 145/74
--- NOTE | 2018-09-19 14:01 | Progress Note ---
Assessment and Plan Patient is awake and resting on CPAP with 2 litres O2. O2 saturation is 98%. No acute respiratory distress. Patient is afebrile. No leukocytosis. - Patient Problems (1) COPD (chronic obstructive pulmonary disease) Current Visit: Yes Status: Acute Plan to address problem: CPAP with 2 litres O2. 2 litres O2 when he is not on BIPAP. Albuterol and atrovent aeorosol treatment q6 hours PRN for shortness of breath. Brovanna/ budesonide aeorsol treatment q 12 hours continue subq heparin. Patient is on reglan. (2) Acute on chronic respiratory failure Current Visit: Yes Status: Acute Plan to address problem: CPAP with 2 litres O2. 2 litres O2 when she is on BIPAP. Albuterol and atrovent aeorosol treatment q6 hours PRN for shortness of breath. Brovanna/ budesonide aeorsol treatment q 12 hours continue subq heparin. Patient is on reglan. (3) Acute HFrEF (heart failure with reduced ejection fraction) Current Visit: Yes Status: Resolved Plan to address problem: Management as per cardiology. (4) Acute renal failure Current Visit: Yes Status: Acute Plan to address problem: Management as per Nephrology. (5) Altered mental status Current Visit: Yes Status: Acute Plan to address problem: Management as per primary care and neurology. (6) Bacteremia due to coagulase-negative Staphylococcus Current Visit: Yes Status: Acute Plan to address problem: management as per infectious diseases. (7) Anemia Current Visit: Yes Status: Acute Plan to address problem: Management as per primary care. Subjective Date of service: 09/19/18 Principal diagnosis: s/p cardiac arrest; severe sepsis; acute hypoxemic- hypercapnic resp failure Interval history: Patient is awake and resting on CPAP with 2 litres O2. O2 saturation is 98%. No acute respiratory distress. Patient is afebrile. No leukocytosis. Objective Vital Signs - 12hr 09/19/18 09/19/18 09/19/18 07:13 07:44 08:55 Temperature 99.4 F Pulse Rate 96 H Pulse Rate [ Anterior Bilateral Throughout] Pulse Rate [ 114 H Apical] Respiratory 20 Rate Respiratory Rate [Anterior Bilateral Throughout] Blood Pressure 139/62 O2 Sat by Pulse 94 99 Oximetry 09/19/18 09/19/18 08:56 09:22 Temperature Pulse Rate 103 H Pulse Rate [ 108 H Anterior Bilateral Throughout] Pulse Rate [ Apical] Respiratory Rate Respiratory 18 Rate [Anterior Bilateral Throughout] Blood Pressure 145/74 O2 Sat by Pulse Oximetry Constitutional: no acute distress, alert, other (Resting on CPAP) Eyes: non-icteric ENT: oropharynx moist, other Neck: supple, no JVD, other (short neck) Effort: mildly labored Ascultation: Bilateral: diminished breath sounds, rhonchi (coarse BS bilaterally) Percussion: Bilateral: not dull Cardiovascular: regular rate and rhythm, other (S1,S2, no murmurs, no gallops or rubs) Gastrointestinal: normoactive bowel sounds, soft, non-tender, non-distended, other (Madison catheter in place, clear urine) Integumentary: normal, other (right femoral HD catheter) Extremities: no cyanosis, no edema, pink and warm, pulses normal, no ischemia or petechiae Neurologic: non-focal exam (grossly), pupils equal and round, motor strength n ormal and, other (awake and alert, obeying one step commands) Psychiatric: mood appropriate, affect normal CBC and BMP: 09/17/18 04:51 09/18/18 05:23 ABG, PT/INR, D-dimer: ABG POC ABG pH 7.410 (7.35-7.45) 08/30/18 13:35 POC ABG pCO2 41.4 (35-45) 08/30/18 13:35 POC ABG pO2 99 (80-105) 08/30/18 13:35 POC ABG HCO3 26.2 (22-26 mml/L) 08/30/18 13:35 POC ABG Total CO2 27 (23-27mmol/L) 08/30/18 13:35 POC ABG O2 Sat 98 08/30/18 13:35 PT/INR, D-dimer PT 15.6 Sec. (12.2-14.9) H 08/25/18 16:43 INR 1.27 (0.87-1.13) H 08/25/18 16:43 1978.25 ng/mlDDU (0-234) H 08/24/18 13:41 Abnormal lab findings: Abnormal Labs 08/21/18 08/21/18 08/21/18 04:42 04:42 04:42 WBC 19.1 H RBC 2.49 L Hgb 7.7 L Hct 24.5 L MCV 98 H RDW 17.7 H Plt Count Lymph % (Auto) [place] % (Auto) Eos % (Auto) Baso % (Auto) Lymph # Seg Neuts % (Manual) 84.0 H Lymphocytes % (Manual) 7.0 L Monocytes % (Manual) 9.0 H Basophils % (Manual) Nucleated RBC % Seg Neutrophils # Man 16.0 H Lymphocytes # (Manual) Monocytes # (Manual) 1.7 H PT 20.1 H INR 1.76 H D-Dimer POC ABG pH POC ABG pCO2 POC ABG pO2 Sodium Potassium Chloride Carbon Dioxide BUN Creatinine Glucose POC Glucose Lactic Acid Uric Acid Calcium Total Bilirubin AST ALT Total Creatine Kinase CK-MB (CK-2) CK-MB (CK-2) Rel Index Troponin T 0.032 H C-Reactive Protein NT-Pro-B Natriuret Pep Total Protein Albumin LDL Cholesterol Direct 44 L Urine WBC (Auto) 08/21/18 08/21/18 08/21/18 04:42 04:42 04:42 WBC RBC Hgb Hct MCV RDW Plt Count Lymph % (Auto) [place] % (Auto) Eos % (Auto) Baso % (Auto) Lymph # Seg Neuts % (Manual) Lymphocytes % (Manual) Monocytes % (Manual) Basophils % (Manual) Nucleated RBC % Seg Neutrophils # Man Lymphocytes # (Manual) Monocytes # (Manual) PT INR D-Dimer POC ABG pH POC ABG pCO2 POC ABG pO2 Sodium Potassium 6.0 H Chloride Carbon Dioxide 15 L BUN 57 H Creatinine 4.3 H Glucose 111 H POC Glucose Lactic Acid 5.80 H* Uric Acid Calcium Total Bilirubin 1.80 H AST 212 H ALT 94 H Total Creatine Kinase CK-MB (CK-2) CK-MB (CK-2) Rel Index Troponin T C-Reactive Protein NT-Pro-B Natriuret Pep 51020 H Total Protein Albumin 3.2 L LDL Cholesterol Direct Urine WBC (Auto) 08/21/18 08/21/18 08/21/18 05:08 05:58 05:58 WBC RBC Hgb Hct MCV RDW Plt Count Lymph % (Auto) [place] % (Auto) Eos % (Auto) Baso % (Auto) Lymph # Seg Neuts % (Manual) Lymphocytes % (Manual) Monocytes % (Manual) Basophils % (Manual) Nucleated RBC % Seg Neutrophils # Man Lymphocytes # (Manual) Monocytes # (Manual) PT INR D-Dimer POC ABG pH 7.164 L POC ABG pCO2 46.3 H POC ABG pO2 229 H Sodium Potassium Chloride Carbon Dioxide BUN Creatinine Glucose POC Glucose Lactic Acid 5.10 H* Uric Acid Calcium Total Bilirubin AST ALT Total Creatine Kinase CK-MB (CK-2) CK-MB (CK-2) Rel Index Troponin T 0.035 H C-Reactive Protein NT-Pro-B Natriuret Pep Total Protein Albumin LDL Cholesterol Direct Urine WBC (Auto) 08/21/18 08/21/18 08/21/18 06:45 06:45 06:53 WBC RBC Hgb Hct MCV RDW Plt Count Lymph % (Auto) [place] % (Auto) Eos % (Auto) Baso % (Auto) Lymph # Seg Neuts % (Manual) Lymphocytes % (Manual) Monocytes % (Manual) Basophils % (Manual) Nucleated RBC % Seg Neutrophils # Man Lymphocytes # (Manual) Monocytes # (Manual) PT INR D-Dimer POC ABG pH 7.160 L POC ABG pCO2 46.8 H POC ABG pO2 Sodium Potassium Chloride Carbon Dioxide BUN Creatinine Glucose POC Glucose Lactic Acid 4.70 H* Uric Acid Calcium Total Bilirubin AST ALT Total Creatine Kinase 234 H CK-MB (CK-2) 9.1 H CK-MB (CK-2) Rel Index Troponin T 0.032 H C-Reactive Protein NT-Pro-B Natriuret Pep Total Protein Albumin LDL Cholesterol Direct Urine WBC (Auto) 08/21/18 08/21/18 08/21/18 10:43 10:43 10:45 WBC RBC Hgb Hct MCV RDW Plt Count Lymph % (Auto) [place] % (Auto) Eos % (Auto) Baso % (Auto) Lymph # Seg Neuts % (Manual) Lymphocytes % (Manual) Monocytes % (Manual) Basophils % (Manual) Nucleated RBC % Seg Neutrophils # Man Lymphocytes # (Manual) Monocytes # (Manual) PT INR D-Dimer POC ABG pH POC ABG pCO2 POC ABG pO2 Sodium Potassium Chloride Carbon Dioxide 17 L BUN 59 H Creatinine 4.2 H Glucose POC Glucose Lactic Acid 3.70 H* Uric Acid Calcium Total Bilirubin AST ALT Total Creatine Kinase 222 H CK-MB (CK-2) 9.2 H CK-MB (CK-2) Rel Index 4.1 H Troponin T 0.044 H D C-Reactive Protein NT-Pro-B Natriuret Pep Total Protein Albumin LDL Cholesterol Direct Urine WBC (Auto) 08/21/18 08/21/18 08/21/18 11:38 12:33 15:03 WBC RBC Hgb Hct MCV RDW Plt Count Lymph % (Auto) [place] % (Auto) Eos % (Auto) Baso % (Auto) Lymph # Seg Neuts % (Manual) Lymphocytes % (Manual) Monocytes % (Manual) Basophils % (Manual) Nucleated RBC % Seg Neutrophils # Man Lymphocytes # (Manual) Monocytes # (Manual) PT INR D-Dimer POC ABG pH 7.250 L POC ABG pCO2 POC ABG pO2 121 H Sodium Potassium Chloride Carbon Dioxide BUN Creatinine Glucose POC Glucose 129 H Lactic Acid Uric Acid Calcium Total Bilirubin AST ALT Total Creatine Kinase CK-MB (CK-2) CK-MB (CK-2) Rel Index Troponin T C-Reactive Protein NT-Pro-B Natriuret Pep Total Protein Albumin LDL Cholesterol Direct Urine WBC (Auto) 13.0 H 08/21/18 08/22/18 08/22/18 15:47 00:01 04:27 WBC RBC Hgb Hct MCV RDW Plt Count Lymph % (Auto) [place] % (Auto) Eos % (Auto) Baso % (Auto) Lymph # Seg Neuts % (Manual) Lymphocytes % (Manual) Monocytes % (Manual) Basophils % (Manual) Nucleated RBC % Seg Neutrophils # Man Lymphocytes # (Manual) Monocytes # (Manual) PT INR D-Dimer POC ABG pH 7.457 H POC ABG pCO2 POC ABG pO2 117 H Sodium Potassium Chloride Carbon Dioxide BUN Creatinine Glucose POC Glucose 211 H Lactic Acid 2.70 H* Uric Acid Calcium Total Bilirubin AST ALT Total Creatine Kinase CK-MB (CK-2) CK-MB (CK-2) Rel Index Troponin T C-Reactive Protein NT-Pro-B Natriuret Pep Total Protein Albumin LDL Cholesterol Direct Urine WBC (Auto) 08/22/18 08/22/18 08/22/18 05:46 06:10 06:10 WBC RBC 2.27 L Hgb 7.0 L Hct 21.2 L MCV RDW 16.8 H Plt Count 129 L Lymph % (Auto) [place] % (Auto) Eos % (Auto) Baso % (Auto) Lymph # Seg Neuts % (Manual) 95.0 H Lymphocytes % (Manual) 1.0 L Monocytes % (Manual) Basophils % (Manual) Nucleated RBC % 1.0 H Seg Neutrophils # Man 7.8 H Lymphocytes # (Manual) 0.1 L Monocytes # (Manual) PT INR D-Dimer POC ABG pH POC ABG pCO2 POC ABG pO2 Sodium Potassium Chloride Carbon Dioxide 20 L BUN 63 H Creatinine 3.9 H Glucose 205 H POC Glucose 223 H Lactic Acid Uric Acid Calcium Total Bilirubin AST ALT Total Creatine Kinase CK-MB (CK-2) CK-MB (CK-2) Rel Index Troponin T C-Reactive Protein NT-Pro-B Natriuret Pep Total Protein Albumin LDL Cholesterol Direct Urine WBC (Auto) 08/22/18 08/22/18 08/22/18 06:10 12:57 16:21 WBC RBC Hgb Hct MCV RDW Plt Count Lymph % (Auto) [place] % (Auto) Eos % (Auto) Baso % (Auto) Lymph # Seg Neuts % (Manual) Lymphocytes % (Manual) Monocytes % (Manual) Basophils % (Manual) Nucleated RBC % Seg Neutrophils # Man Lymphocytes # (Manual) Monocytes # (Manual) PT INR D-Dimer POC ABG pH 7.477 H POC ABG pCO2 POC ABG pO2 Sodium Potassium Chloride Carbon Dioxide BUN Creatinine Glucose POC Glucose 166 H Lactic Acid Uric Acid Calcium Total Bilirubin AST ALT Total Creatine Kinase CK-MB (CK-2) CK-MB (CK-2) Rel Index Troponin T C-Reactive Protein 23.60 H NT-Pro-B Natriuret Pep Total Protein Albumin LDL Cholesterol Direct Urine WBC (Auto) 08/22/18 08/22/18 08/23/18 17:41 23:42 04:38 WBC RBC Hgb Hct MCV RDW Plt Count Lymph % (Auto) [place] % (Auto) Eos % (Auto) Baso % (Auto) Lymph # Seg Neuts % (Manual) Lymphocytes % (Manual) Monocytes % (Manual) Basophils % (Manual) Nucleated RBC % Seg Neutrophils # Man Lymphocytes # (Manual) Monocytes # (Manual) PT INR D-Dimer POC ABG pH 7.249 L POC ABG pCO2 53.5 H POC ABG pO2 73 L Sodium Potassium Chloride Carbon Dioxide BUN Creatinine Glucose POC Glucose 131 H 168 H Lactic Acid Uric Acid Calcium Total Bilirubin AST ALT Total Creatine Kinase CK-MB (CK-2) CK-MB (CK-2) Rel Index Troponin T C-Reactive Protein NT-Pro-B Natriuret Pep Total Protein Albumin LDL Cholesterol Direct Urine WBC (Auto) 08/23/18 08/23/18 08/23/18 04:52 04:52 04:52 WBC RBC 2.39 L Hgb 7.5 L Hct 22.8 L MCV 95 H RDW 17.6 H Plt Count Lymph % (Auto) [place] % (Auto) Eos % (Auto) Baso % (Auto) Lymph # Seg Neuts % (Manual) Lymphocytes % (Manual) Monocytes % (Manual) Basophils % (Manual) Nucleated RBC % Seg Neutrophils # Man Lymphocytes # (Manual) Monocytes # (Manual) PT INR D-Dimer POC ABG pH POC ABG pCO2 POC ABG pO2 Sodium Potassium 5.6 H 5.6 H Chloride Carbon Dioxide 21 L BUN 71 H 72 H Creatinine 4.1 H 4.0 H Glucose 141 H 140 H POC Glucose Lactic Acid Uric Acid Calcium 8.3 L 8.2 L Total Bilirubin AST 247 H ALT 220 H Total Creatine Kinase CK-MB (CK-2) CK-MB (CK-2) Rel Index Troponin T C-Reactive Protein NT-Pro-B Natriuret Pep Total Protein Albumin 2.8 L LDL Cholesterol Direct Urine WBC (Auto) 08/23/18 08/23/18 08/23/18 05:50 08:38 12:21 WBC RBC Hgb Hct MCV RDW Plt Count Lymph % (Auto) [place] % (Auto) Eos % (Auto) Baso % (Auto) Lymph # Seg Neuts % (Manual) Lymphocytes % (Manual) Monocytes % (Manual) Basophils % (Manual) Nucleated RBC % Seg Neutrophils # Man Lymphocytes # (Manual) Monocytes # (Manual) PT INR D-Dimer POC ABG pH POC ABG pCO2 POC ABG pO2 Sodium Potassium Chloride Carbon Dioxide BUN Creatinine Glucose POC Glucose 160 H 177 H Lactic Acid Uric Acid Calcium Total Bilirubin AST ALT Total Creatine Kinase CK-MB (CK-2) CK-MB (CK-2) Rel Index Troponin T C-Reactive Protein NT-Pro-B Natriuret Pep 85869 H Total Protein Albumin LDL Cholesterol Direct Urine WBC (Auto) 08/23/18 08/23/18 08/23/18 12:36 14:24 18:05 WBC RBC Hgb Hct MCV RDW Plt Count Lymph % (Auto) [place] % (Auto) Eos % (Auto) Baso % (Auto) Lymph # Seg Neuts % (Manual) Lymphocytes % (Manual) Monocytes % (Manual) Basophils % (Manual) Nucleated RBC % Seg Neutrophils # Man Lymphocytes # (Manual) Monocytes # (Manual) PT INR D-Dimer POC ABG pH 7.337 L POC ABG pCO2 POC ABG pO2 145 H Sodium 136 L Potassium 5.2 H Chloride Carbon Dioxide BUN 76 H Creatinine 4.2 H Glucose 158 H POC Glucose 169 H Lactic Acid Uric Acid Calcium 8.1 L Total Bilirubin AST ALT Total Creatine Kinase CK-MB (CK-2) CK-MB (CK-2) Rel Index Troponin T C-Reactive Protein NT-Pro-B Natriuret Pep Total Protein Albumin LDL Cholesterol Direct Urine WBC (Auto) 08/23/18 08/23/18 08/24/18 22:43 23:42 05:16 WBC RBC Hgb Hct MCV RDW Plt Count Lymph % (Auto) [place] % (Auto) Eos % (Auto) Baso % (Auto) Lymph # Seg Neuts % (Manual) Lymphocytes % (Manual) Monocytes % (Manual) Basophils % (Manual) Nucleated RBC % Seg Neutrophils # Man Lymphocytes # (Manual) Monocytes # (Manual) PT INR D-Dimer POC ABG pH POC ABG pCO2 POC ABG pO2 Sodium 136 L Potassium 5.3 H 5.2 H Chloride 97.9 L Carbon Dioxide BUN 80 H 86 H Creatinine 4.0 H 4.3 H Glucose 164 H 202 H POC Glucose 183 H Lactic Acid Uric Acid Calcium 7.9 L Total Bilirubin AST ALT Total Creatine Kinase CK-MB (CK-2) CK-MB (CK-2) Rel Index Troponin T C-Reactive Protein NT-Pro-B Natriuret Pep Total Protein Albumin LDL Cholesterol Direct Urine WBC (Auto) 08/24/18 08/24/18 08/24/18 05:21 05:29 10:10 WBC RBC 2.47 L Hgb 7.5 L Hct 23.3 L MCV RDW 17.5 H Plt Count 118 L Lymph % (Auto) [place] % (Auto) Eos % (Auto) Baso % (Auto) Lymph # Seg Neuts % (Manual) 92.0 H Lymphocytes % (Manual) 2.0 L Monocytes % (Manual) Basophils % (Manual) Nucleated RBC % Seg Neutrophils # Man 8.8 H Lymphocytes # (Manual) 0.2 L Monocytes # (Manual) PT INR D-Dimer POC ABG pH 7.243 L POC ABG pCO2 56.8 H POC ABG pO2 Sodium Potassium Chloride Carbon Dioxide BUN Creatinine Glucose POC Glucose 209 H Lactic Acid Uric Acid Calcium Total Bilirubin AST ALT Total Creatine Kinase CK-MB (CK-2) CK-MB (CK-2) Rel Index Troponin T C-Reactive Protein NT-Pro-B Natriuret Pep Total Protein Albumin LDL Cholesterol Direct Urine WBC (Auto) 08/24/18 08/24/18 08/24/18 10:10 11:19 13:41 WBC RBC Hgb Hct MCV RDW Plt Count Lymph % (Auto) [place] % (Auto) Eos % (Auto) Baso % (Auto) Lymph # Seg Neuts % (Manual) Lymphocytes % (Manual) Monocytes % (Manual) Basophils % (Manual) Nucleated RBC % Seg Neutrophils # Man Lymphocytes # (Manual) Monocytes # (Manual) PT INR D-Dimer 1978.25 H POC ABG pH POC ABG pCO2 POC ABG pO2 Sodium Potassium Chloride Carbon Dioxide BUN Creatinine Glucose POC Glucose 212 H Lactic Acid Uric Acid Calcium Total Bilirubin AST ALT Total Creatine Kinase CK-MB (CK-2) CK-MB (CK-2) Rel Index Troponin T C-Reactive Protein NT-Pro-B Natriuret Pep 37138 H Total Protein Albumin LDL Cholesterol Direct Urine WBC (Auto) 08/24/18 08/24/18 08/24/18 13:41 14:27 17:23 WBC RBC Hgb Hct MCV RDW Plt Count Lymph % (Auto) [place] % (Auto) Eos % (Auto) Baso % (Auto) Lymph # Seg Neuts % (Manual) Lymphocytes % (Manual) Monocytes % (Manual) Basophils % (Manual) Nucleated RBC % Seg Neutrophils # Man Lymphocytes # (Manual) Monocytes # (Manual) PT INR D-Dimer POC ABG pH POC ABG pCO2 POC ABG pO2 Sodium 136 L Potassium 5.1 H Chloride 97.8 L Carbon Dioxide BUN 90 H Creatinine 4.1 H Glucose 157 H POC Glucose 155 H Lactic Acid Uric Acid Calcium 8.0 L Total Bilirubin AST ALT Total Creatine Kinase CK-MB (CK-2) CK-MB (CK-2) Rel Index Troponin T C-Reactive Protein 9.00 H NT-Pro-B Natriuret Pep Total Protein Albumin LDL Cholesterol Direct Urine WBC (Auto) 08/25/18 08/25/18 08/25/18 00:38 05:22 05:57 WBC RBC Hgb Hct MCV RDW Plt Count Lymph % (Auto) [place] % (Auto) Eos % (Auto) Baso % (Auto) Lymph # Seg Neuts % (Manual) Lymphocytes % (Manual) Monocytes % (Manual) Basophils % (Manual) Nucleated RBC % Seg Neutrophils # Man Lymphocytes # (Manual) Monocytes # (Manual) PT INR D-Dimer POC ABG pH 7.238 L POC ABG pCO2 58.2 H POC ABG pO2 Sodium Potassium 5.4 H Chloride Carbon Dioxide BUN 98 H Creatinine 4.3 H Glucose 217 H POC Glucose 176 H Lactic Acid Uric Acid Calcium 8.3 L Total Bilirubin AST ALT Total Creatine Kinase CK-MB (CK-2) CK-MB (CK-2) Rel Index Troponin T C-Reactive Protein NT-Pro-B Natriuret Pep 05252 H Total Protein Albumin LDL Cholesterol Direct Urine WBC (Auto) 08/25/18 08/25/18 08/25/18 06:56 08:59 11:38 WBC RBC Hgb Hct MCV RDW Plt Count Lymph % (Auto) [place] % (Auto) Eos % (Auto) Baso % (Auto) Lymph # Seg Neuts % (Manual) Lymphocytes % (Manual) Monocytes % (Manual) Basophils % (Manual) Nucleated RBC % Seg Neutrophils # Man Lymphocytes # (Manual) Monocytes # (Manual) PT INR D-Dimer POC ABG pH 7.348 L POC ABG pCO2 48.6 H POC ABG pO2 Sodium Potassium Chloride Carbon Dioxide BUN Creatinine Glucose POC Glucose 247 H 235 H Lactic Acid Uric Acid Calcium Total Bilirubin AST ALT Total Creatine Kinase CK-MB (CK-2) CK-MB (CK-2) Rel Index Troponin T C-Reactive Protein NT-Pro-B Natriuret Pep Total Protein Albumin LDL Cholesterol Direct Urine WBC (Auto) 08/25/18 08/25/18 08/25/18 12:29 16:43 16:43 WBC 14.7 H RBC 2.90 L Hgb 8.9 L Hct 27.4 L MCV 95 H RDW 17.3 H Plt Count 119 L Lymph % (Auto) [place] % (Auto) Eos % (Auto) Baso % (Auto) Lymph # Seg Neuts % (Manual) 94.0 H Lymphocytes % (Manual) 2.0 L Monocytes % (Manual) Basophils % (Manual) Nucleated RBC % Seg Neutrophils # Man 13.8 H Lymphocytes # (Manual) 0.3 L Monocytes # (Manual) PT 15.6 H INR 1.27 H D-Dimer POC ABG pH POC ABG pCO2 POC ABG pO2 Sodium Potassium Chloride Carbon Dioxide BUN Creatinine Glucose POC Glucose 237 H Lactic Acid Uric Acid Calcium Total Bilirubin AST ALT Total Creatine Kinase CK-MB (CK-2) CK-MB (CK-2) Rel Index Troponin T C-Reactive Protein NT-Pro-B Natriuret Pep Total Protein Albumin LDL Cholesterol Direct Urine WBC (Auto) 08/25/18 08/26/18 08/26/18 17:22 00:16 04:56 WBC RBC Hgb Hct MCV RDW Plt Count Lymph % (Auto) [place] % (Auto) Eos % (Auto) Baso % (Auto) Lymph # Seg Neuts % (Manual) Lymphocytes % (Manual) Monocytes % (Manual) Basophils % (Manual) Nucleated RBC % Seg Neutrophils # Man Lymphocytes # (Manual) Monocytes # (Manual) PT INR D-Dimer POC ABG pH POC ABG pCO2 45.2 H POC ABG pO2 Sodium Potassium Chloride Carbon Dioxide BUN Creatinine Glucose POC Glucose 200 H 180 H Lactic Acid Uric Acid Calcium Total Bilirubin AST ALT Total Creatine Kinase CK-MB (CK-2) CK-MB (CK-2) Rel Index Troponin T C-Reactive Protein NT-Pro-B Natriuret Pep Total Protein Albumin LDL Cholesterol Direct Urine WBC (Auto) 08/26/18 08/26/18 08/26/18 05:53 06:20 08:48 WBC RBC Hgb Hct MCV RDW Plt Count Lymph % (Auto) [place] % (Auto) Eos % (Auto) Baso % (Auto) Lymph # Seg Neuts % (Manual) Lymphocytes % (Manual) Monocytes % (Manual) Basophils % (Manual) Nucleated RBC % Seg Neutrophils # Man Lymphocytes # (Manual) Monocytes # (Manual) PT INR D-Dimer POC ABG pH POC ABG pCO2 POC ABG pO2 Sodium Potassium Chloride Carbon Dioxide BUN 106 H Creatinine 3.9 H Glucose 137 H POC Glucose 131 H 126 H Lactic Acid Uric Acid Calcium 8.1 L Total Bilirubin AST ALT Total Creatine Kinase CK-MB (CK-2) CK-MB (CK-2) Rel Index Troponin T C-Reactive Protein NT-Pro-B Natriuret Pep > 69424 H Total Protein Albumin LDL Cholesterol Direct Urine WBC (Auto) 08/26/18 08/26/18 08/26/18 11:39 17:33 18:02 WBC RBC Hgb Hct MCV RDW Plt Count Lymph % (Auto) [place] % (Auto) Eos % (Auto) Baso % (Auto) Lymph # Seg Neuts % (Manual) Lymphocytes % (Manual) Monocytes % (Manual) Basophils % (Manual) Nucleated RBC % Seg Neutrophils # Man Lymphocytes # (Manual) Monocytes # (Manual) PT INR D-Dimer POC ABG pH POC ABG pCO2 POC ABG pO2 58 L Sodium Potassium Chloride Carbon Dioxide BUN Creatinine Glucose POC Glucose 156 H 173 H Lactic Acid Uric Acid Calcium Total Bilirubin AST ALT Total Creatine Kinase CK-MB (CK-2) CK-MB (CK-2) Rel Index Troponin T C-Reactive Protein NT-Pro-B Natriuret Pep Total Protein Albumin LDL Cholesterol Direct Urine WBC (Auto) 08/26/18 08/27/18 08/27/18 23:12 04:59 11:51 WBC RBC Hgb Hct MCV RDW Plt Count Lymph % (Auto) [place] % (Auto) Eos % (Auto) Baso % (Auto) Lymph # Seg Neuts % (Manual) Lymphocytes % (Manual) Monocytes % (Manual) Basophils % (Manual) Nucleated RBC % Seg Neutrophils # Man Lymphocytes # (Manual) Monocytes # (Manual) PT INR D-Dimer POC ABG pH 7.563 H POC ABG pCO2 < 30 L POC ABG pO2 69 L Sodium Potassium Chloride Carbon Dioxide BUN Creatinine Glucose POC Glucose 130 H 107 H Lactic Acid Uric Acid Calcium Total Bilirubin AST ALT Total Creatine Kinase CK-MB (CK-2) CK-MB (CK-2) Rel Index Troponin T C-Reactive Protein NT-Pro-B Natriuret Pep Total Protein Albumin LDL Cholesterol Direct Urine WBC (Auto) 08/27/18 08/27/18 08/27/18 11:58 11:58 11:58 WBC RBC 2.66 L Hgb 8.1 L Hct 24.7 L MCV RDW 16.7 H Plt Count Lymph % (Auto) [place] % (Auto) Eos % (Auto) Baso % (Auto) Lymph # Seg Neuts % (Manual) Lymphocytes % (Manual) Monocytes % (Manual) Basophils % (Manual) Nucleated RBC % Seg Neutrophils # Man Lymphocytes # (Manual) Monocytes # (Manual) PT INR D-Dimer POC ABG pH POC ABG pCO2 POC ABG pO2 Sodium Potassium Chloride Carbon Dioxide BUN 71 H Creatinine 2.9 H Glucose POC Glucose Lactic Acid Uric Acid Calcium 7.6 L Total Bilirubin AST ALT Total Creatine Kinase CK-MB (CK-2) CK-MB (CK-2) Rel Index Troponin T C-Reactive Protein NT-Pro-B Natriuret Pep > 66414 H Total Protein 6.1 L Albumin 2.4 L LDL Cholesterol Direct Urine WBC (Auto) 08/28/18 08/28/18 08/28/18 04:38 04:49 04:49 WBC RBC 2.65 L Hgb 8.3 L Hct 25.3 L MCV 96 H RDW 17.3 H Plt Count 83 L Lymph % (Auto) [place] % (Auto) Eos % (Auto) Baso % (Auto) Lymph # Seg Neuts % (Manual) Lymphocytes % (Manual) Monocytes % (Manual) Basophils % (Manual) Nucleated RBC % Seg Neutrophils # Man Lymphocytes # (Manual) Monocytes # (Manual) PT INR D-Dimer POC ABG pH POC ABG pCO2 POC ABG pO2 112 H Sodium Potassium Chloride Carbon Dioxide BUN Creatinine Glucose POC Glucose Lactic Acid Uric Acid Calcium Total Bilirubin AST ALT Total Creatine Kinase CK-MB (CK-2) CK-MB (CK-2) Rel Index Troponin T C-Reactive Protein NT-Pro-B Natriuret Pep > 20114 H Total Protein Albumin LDL Cholesterol Direct Urine WBC (Auto) 08/28/18 08/28/18 08/29/18 04:49 14:24 00:11 WBC RBC Hgb Hct MCV RDW Plt Count Lymph % (Auto) [place] % (Auto) Eos % (Auto) Baso % (Auto) Lymph # Seg Neuts % (Manual) Lymphocytes % (Manual) Monocytes % (Manual) Basophils % (Manual) Nucleated RBC % Seg Neutrophils # Man Lymphocytes # (Manual) Monocytes # (Manual) PT INR D-Dimer POC ABG pH 7.278 L POC ABG pCO2 57.9 H POC ABG pO2 79 L Sodium Potassium Chloride Carbon Dioxide BUN 69 H Creatinine 2.4 H Glucose POC Glucose 171 H Lactic Acid Uric Acid Calcium 7.7 L Total Bilirubin AST ALT Total Creatine Kinase CK-MB (CK-2) CK-MB (CK-2) Rel Index Troponin T C-Reactive Protein NT-Pro-B Natriuret Pep Total Protein 5.4 L Albumin 2.2 L LDL Cholesterol Direct Urine WBC (Auto) 08/29/18 08/29/18 08/29/18 04:39 05:35 05:35 WBC 13.6 H RBC 3.09 L Hgb 9.4 L Hct 29.5 L MCV 96 H RDW 17.9 H Plt Count 127 L Lymph % (Auto) [place] % (Auto) Eos % (Auto) Baso % (Auto) Lymph # Seg Neuts % (Manual) Lymphocytes % (Manual) Monocytes % (Manual) Basophils % (Manual) Nucleated RBC % Seg Neutrophils # Man Lymphocytes # (Manual) Monocytes # (Manual) PT INR D-Dimer POC ABG pH 7.312 L POC ABG pCO2 57.6 H POC ABG pO2 79 L Sodium Potassium Chloride Carbon Dioxide BUN 42 H Creatinine 1.9 H Glucose 107 H POC Glucose Lactic Acid Uric Acid Calcium Total Bilirubin AST ALT Total Creatine Kinase CK-MB (CK-2) CK-MB (CK-2) Rel Index Troponin T C-Reactive Protein NT-Pro-B Natriuret Pep Total Protein Albumin LDL Cholesterol Direct Urine WBC (Auto) 08/29/18 08/29/18 08/29/18 05:48 11:37 15:32 WBC RBC Hgb Hct MCV RDW Plt Count Lymph % (Auto) [place] % (Auto) Eos % (Auto) Baso % (Auto) Lymph # Seg Neuts % (Manual) Lymphocytes % (Manual) Monocytes % (Manual) Basophils % (Manual) Nucleated RBC % Seg Neutrophils # Man Lymphocytes # (Manual) Monocytes # (Manual) PT INR D-Dimer POC ABG pH POC ABG pCO2 47.0 H POC ABG pO2 78 L Sodium Potassium Chloride Carbon Dioxide BUN Creatinine Glucose POC Glucose 114 H 116 H Lactic Acid Uric Acid Calcium Total Bilirubin AST ALT Total Creatine Kinase CK-MB (CK-2) CK-MB (CK-2) Rel Index Troponin T C-Reactive Protein NT-Pro-B Natriuret Pep Total Protein Albumin LDL Cholesterol Direct Urine WBC (Auto) 08/29/18 08/30/18 08/30/18 17:28 00:17 04:41 WBC RBC Hgb Hct MCV RDW Plt Count Lymph % (Auto) [place] % (Auto) Eos % (Auto) Baso % (Auto) Lymph # Seg Neuts % (Manual) Lymphocytes % (Manual) Monocytes % (Manual) Basophils % (Manual) Nucleated RBC % Seg Neutrophils # Man Lymphocytes # (Manual) Monocytes # (Manual) PT INR D-Dimer POC ABG pH POC ABG pCO2 48.1 H POC ABG pO2 Sodium Potassium Chloride Carbon Dioxide BUN Creatinine Glucose POC Glucose 174 H 132 H Lactic Acid Uric Acid Calcium Total Bilirubin AST ALT Total Creatine Kinase CK-MB (CK-2) CK-MB (CK-2) Rel Index Troponin T C-Reactive Protein NT-Pro-B Natriuret Pep Total Protein Albumin LDL Cholesterol Direct Urine WBC (Auto) 08/30/18 08/30/18 08/30/18 05:17 05:34 06:10 WBC RBC 2.68 L Hgb 8.2 L Hct 25.6 L MCV 96 H RDW 17.2 H Plt Count 118 L Lymph % (Auto) [place] % (Auto) Eos % (Auto) Baso % (Auto) Lymph # Seg Neuts % (Manual) Lymphocytes % (Manual) Monocytes % (Manual) Basophils % (Manual) Nucleated RBC % Seg Neutrophils # Man Lymphocytes # (Manual) Monocytes # (Manual) PT INR D-Dimer POC ABG pH POC ABG pCO2 POC ABG pO2 Sodium Potassium Chloride Carbon Dioxide BUN 54 H Creatinine 2.4 H Glucose 120 H POC Glucose 141 H Lactic Acid Uric Acid Calcium Total Bilirubin AST ALT Total Creatine Kinase CK-MB (CK-2) CK-MB (CK-2) Rel Index Troponin T C-Reactive Protein NT-Pro-B Natriuret Pep Total Protein Albumin LDL Cholesterol Direct Urine WBC (Auto) 08/30/18 08/30/18 08/30/18 13:11 18:11 23:55 WBC RBC Hgb Hct MCV RDW Plt Count Lymph % (Auto) [place] % (Auto) Eos % (Auto) Baso % (Auto) Lymph # Seg Neuts % (Manual) Lymphocytes % (Manual) Monocytes % (Manual) Basophils % (Manual) Nucleated RBC % Seg Neutrophils # Man Lymphocytes # (Manual) Monocytes # (Manual) PT INR D-Dimer POC ABG pH POC ABG pCO2 POC ABG pO2 Sodium Potassium Chloride Carbon Dioxide BUN Creatinine Glucose POC Glucose 167 H 144 H 144 H Lactic Acid Uric Acid Calcium Total Bilirubin AST ALT Total Creatine Kinase CK-MB (CK-2) CK-MB (CK-2) Rel Index Troponin T C-Reactive Protein NT-Pro-B Natriuret Pep Total Protein Albumin LDL Cholesterol Direct Urine WBC (Auto) 08/31/18 08/31/18 08/31/18 05:07 05:07 05:44 WBC RBC 2.62 L Hgb 8.1 L Hct 25.0 L MCV 96 H RDW 17.5 H Plt Count 128 L Lymph % (Auto) [place] % (Auto) Eos % (Auto) Baso % (Auto) Lymph # Seg Neuts % (Manual) Lymphocytes % (Manual) Monocytes % (Manual) Basophils % (Manual) Nucleated RBC % Seg Neutrophils # Man Lymphocytes # (Manual) Monocytes # (Manual) PT INR D-Dimer POC ABG pH POC ABG pCO2 POC ABG pO2 Sodium Potassium Chloride Carbon Dioxide BUN 58 H Creatinine 2.3 H Glucose 103 H POC Glucose 109 H Lactic Acid Uric Acid Calcium Total Bilirubin AST ALT Total Creatine Kinase CK-MB (CK-2) CK-MB (CK-2) Rel Index Troponin T C-Reactive Protein NT-Pro-B Natriuret Pep Total Protein Albumin LDL Cholesterol Direct Urine WBC (Auto) 08/31/18 08/31/18 08/31/18 11:26 13:54 19:05 WBC RBC Hgb Hct MCV RDW Plt Count Lymph % (Auto) [place] % (Auto) Eos % (Auto) Baso % (Auto) Lymph # Seg Neuts % (Manual) Lymphocytes % (Manual) Monocytes % (Manual) Basophils % (Manual) Nucleated RBC % Seg Neutrophils # Man Lymphocytes # (Manual) Monocytes # (Manual) PT INR D-Dimer POC ABG pH POC ABG pCO2 POC ABG pO2 Sodium Potassium Chloride Carbon Dioxide BUN Creatinine Glucose POC Glucose 117 H 186 H Lactic Acid Uric Acid 9.6 H Calcium Total Bilirubin AST ALT Total Creatine Kinase CK-MB (CK-2) CK-MB (CK-2) Rel Index Troponin T C-Reactive Protein NT-Pro-B Natriuret Pep Total Protein Albumin LDL Cholesterol Direct Urine WBC (Auto) 08/31/18 09/01/18 09/01/18 23:50 06:27 09:21 WBC RBC 2.74 L Hgb 8.6 L Hct 25.8 L MCV RDW 17.3 H Plt Count Lymph % (Auto) [place] % (Auto) Eos % (Auto) Baso % (Auto) Lymph # Seg Neuts % (Manual) Lymphocytes % (Manual) Monocytes % (Manual) Basophils % (Manual) Nucleated RBC % Seg Neutrophils # Man Lymphocytes # (Manual) Monocytes # (Manual) PT INR D-Dimer POC ABG pH POC ABG pCO2 POC ABG pO2 Sodium Potassium Chloride Carbon Dioxide BUN Creatinine Glucose POC Glucose 141 H 62 L Lactic Acid Uric Acid Calcium Total Bilirubin AST ALT Total Creatine Kinase CK-MB (CK-2) CK-MB (CK-2) Rel Index Troponin T C-Reactive Protein NT-Pro-B Natriuret Pep Total Protein Albumin LDL Cholesterol Direct Urine WBC (Auto) 09/01/18 09/01/18 09/01/18 09:21 12:27 17:51 WBC RBC Hgb Hct MCV RDW Plt Count Lymph % (Auto) [place] % (Auto) Eos % (Auto) Baso % (Auto) Lymph # Seg Neuts % (Manual) Lymphocytes % (Manual) Monocytes % (Manual) Basophils % (Manual) Nucleated RBC % Seg Neutrophils # Man Lymphocytes # (Manual) Monocytes # (Manual) PT INR D-Dimer POC ABG pH POC ABG pCO2 POC ABG pO2 Sodium Potassium 3.0 L D Chloride 109.8 H Carbon Dioxide BUN 45 H Creatinine 1.7 H Glucose POC Glucose 106 H 108 H Lactic Acid Uric Acid Calcium 7.1 L D Total Bilirubin AST ALT Total Creatine Kinase CK-MB (CK-2) CK-MB (CK-2) Rel Index Troponin T C-Reactive Protein NT-Pro-B Natriuret Pep Total Protein Albumin LDL Cholesterol Direct Urine WBC (Auto) 09/02/18 09/02/18 09/02/18 05:16 05:16 12:01 WBC RBC 2.60 L Hgb 8.1 L Hct 24.8 L MCV 95 H RDW 17.1 H Plt Count Lymph % (Auto) [place] % (Auto) Eos % (Auto) Baso % (Auto) Lymph # Seg Neuts % (Manual) Lymphocytes % (Manual) Monocytes % (Manual) Basophils % (Manual) Nucleated RBC % Seg Neutrophils # Man Lymphocytes # (Manual) Monocytes # (Manual) PT INR D-Dimer POC ABG pH POC ABG pCO2 POC ABG pO2 Sodium Potassium Chloride Carbon Dioxide BUN 49 H Creatinine 1.8 H Glucose 107 H POC Glucose 124 H Lactic Acid Uric Acid Calcium 8.1 L Total Bilirubin AST ALT Total Creatine Kinase CK-MB (CK-2) CK-MB (CK-2) Rel Index Troponin T C-Reactive Protein NT-Pro-B Natriuret Pep Total Protein Albumin LDL Cholesterol Direct Urine WBC (Auto) 09/02/18 09/02/18 09/03/18 18:38 23:12 08:22 WBC RBC Hgb Hct MCV RDW Plt Count Lymph % (Auto) [place] % (Auto) Eos % (Auto) Baso % (Auto) Lymph # Seg Neuts % (Manual) Lymphocytes % (Manual) Monocytes % (Manual) Basophils % (Manual) Nucleated RBC % Seg Neutrophils # Man Lymphocytes # (Manual) Monocytes # (Manual) PT INR D-Dimer POC ABG pH POC ABG pCO2 POC ABG pO2 Sodium Potassium Chloride Carbon Dioxide BUN Creatinine Glucose POC Glucose 164 H 128 H 115 H Lactic Acid Uric Acid Calcium Total Bilirubin AST ALT Total Creatine Kinase CK-MB (CK-2) CK-MB (CK-2) Rel Index Troponin T C-Reactive Protein NT-Pro-B Natriuret Pep Total Protein Albumin LDL Cholesterol Direct Urine WBC (Auto) 09/03/18 09/03/18 09/03/18 11:48 16:37 20:48 WBC RBC Hgb Hct MCV RDW Plt Count Lymph % (Auto) [place] % (Auto) Eos % (Auto) Baso % (Auto) Lymph # Seg Neuts % (Manual) Lymphocytes % (Manual) Monocytes % (Manual) Basophils % (Manual) Nucleated RBC % Seg Neutrophils # Man Lymphocytes # (Manual) Monocytes # (Manual) PT INR D-Dimer POC ABG pH POC ABG pCO2 POC ABG pO2 Sodium Potassium Chloride Carbon Dioxide BUN Creatinine Glucose POC Glucose 203 H 146 H 150 H Lactic Acid Uric Acid Calcium Total Bilirubin AST ALT Total Creatine Kinase CK-MB (CK-2) CK-MB (CK-2) Rel Index Troponin T C-Reactive Protein NT-Pro-B Natriuret Pep Total Protein Albumin LDL Cholesterol Direct Urine WBC (Auto) 09/04/18 09/04/18 09/04/18 08:29 12:08 13:32 WBC RBC Hgb Hct MCV RDW Plt Count Lymph % (Auto) [place] % (Auto) Eos % (Auto) Baso % (Auto) Lymph # Seg Neuts % (Manual) Lymphocytes % (Manual) Monocytes % (Manual) Basophils % (Manual) Nucleated RBC % Seg Neutrophils # Man Lymphocytes # (Manual) Monocytes # (Manual) PT INR D-Dimer POC ABG pH POC ABG pCO2 POC ABG pO2 Sodium 136 L Potassium Chloride Carbon Dioxide BUN 42 H Creatinine 1.6 H Glucose 180 H POC Glucose 129 H 149 H Lactic Acid Uric Acid Calcium Total Bilirubin AST ALT Total Creatine Kinase CK-MB (CK-2) CK-MB (CK-2) Rel Index Troponin T C-Reactive Protein NT-Pro-B Natriuret Pep Total Protein Albumin LDL Cholesterol Direct Urine WBC (Auto) 09/04/18 09/05/18 09/05/18 16:33 07:03 07:03 WBC RBC 2.92 L Hgb 9.1 L Hct 27.4 L MCV RDW 17.3 H Plt Count Lymph % (Auto) [place] % (Auto) Eos % (Auto) Baso % (Auto) Lymph # Seg Neuts % (Manual) 81.0 H Lymphocytes % (Manual) 7.0 L Monocytes % (Manual) 8.0 H Basophils % (Manual) Nucleated RBC % Seg Neutrophils # Man Lymphocytes # (Manual) 0.5 L Monocytes # (Manual) PT INR D-Dimer POC ABG pH POC ABG pCO2 POC ABG pO2 Sodium Potassium Chloride Carbon Dioxide BUN 40 H Creatinine Glucose 153 H POC Glucose 165 H Lactic Acid Uric Acid Calcium Total Bilirubin AST ALT Total Creatine Kinase CK-MB (CK-2) CK-MB (CK-2) Rel Index Troponin T C-Reactive Protein NT-Pro-B Natriuret Pep Total Protein Albumin LDL Cholesterol Direct Urine WBC (Auto) 09/05/18 09/05/18 09/05/18 08:00 11:51 21:20 WBC RBC Hgb Hct MCV RDW Plt Count Lymph % (Auto) [place] % (Auto) Eos % (Auto) Baso % (Auto) Lymph # Seg Neuts % (Manual) Lymphocytes % (Manual) Monocytes % (Manual) Basophils % (Manual) Nucleated RBC % Seg Neutrophils # Man Lymphocytes # (Manual) Monocytes # (Manual) PT INR D-Dimer POC ABG pH POC ABG pCO2 POC ABG pO2 Sodium Potassium Chloride Carbon Dioxide BUN Creatinine Glucose POC Glucose 146 H 207 H 114 H Lactic Acid Uric Acid Calcium Total Bilirubin AST ALT Total Creatine Kinase CK-MB (CK-2) CK-MB (CK-2) Rel Index Troponin T C-Reactive Protein NT-Pro-B Natriuret Pep Total Protein Albumin LDL Cholesterol Direct Urine WBC (Auto) 09/06/18 09/06/18 09/06/18 06:42 06:42 11:38 WBC RBC 2.90 L Hgb 9.0 L Hct 27.0 L MCV RDW 17.4 H Plt Count 130 L Lymph % (Auto) [place] % (Auto) Eos % (Auto) Baso % (Auto) Lymph # Seg Neuts % (Manual) 79.0 H Lymphocytes % (Manual) 6.0 L Monocytes % (Manual) 12.0 H Basophils % (Manual) 2.0 H Nucleated RBC % Seg Neutrophils # Man Lymphocytes # (Manual) 0.3 L Monocytes # (Manual) PT INR D-Dimer POC ABG pH POC ABG pCO2 POC ABG pO2 Sodium 136 L Potassium Chloride Carbon Dioxide BUN 39 H Creatinine Glucose 106 H POC Glucose 265 H Lactic Acid Uric Acid Calcium Total Bilirubin AST ALT Total Creatine Kinase CK-MB (CK-2) CK-MB (CK-2) Rel Index Troponin T C-Reactive Protein NT-Pro-B Natriuret Pep Total Protein Albumin LDL Cholesterol Direct Urine WBC (Auto) 09/06/18 09/06/18 09/07/18 16:37 20:55 05:12 WBC RBC 2.80 L Hgb 8.7 L Hct 26.5 L MCV 95 H RDW 17.7 H Plt Count Lymph % (Auto) 13.3 L [place] % (Auto) 14.2 H Eos % (Auto) Baso % (Auto) 1.9 H Lymph # 0.7 L Seg Neuts % (Manual) Lymphocytes % (Manual) Monocytes % (Manual) Basophils % (Manual) Nucleated RBC % Seg Neutrophils # Man Lymphocytes # (Manual) Monocytes # (Manual) PT INR D-Dimer POC ABG pH POC ABG pCO2 POC ABG pO2 Sodium Potassium Chloride Carbon Dioxide BUN Creatinine Glucose POC Glucose 131 H 135 H Lactic Acid Uric Acid Calcium Total Bilirubin AST ALT Total Creatine Kinase CK-MB (CK-2) CK-MB (CK-2) Rel Index Troponin T C-Reactive Protein NT-Pro-B Natriuret Pep Total Protein Albumin LDL Cholesterol Direct Urine WBC (Auto) 09/07/18 09/07/18 09/07/18 05:12 11:28 15:32 WBC RBC Hgb Hct MCV RDW Plt Count Lymph % (Auto) [place] % (Auto) Eos % (Auto) Baso % (Auto) Lymph # Seg Neuts % (Manual) Lymphocytes % (Manual) Monocytes % (Manual) Basophils % (Manual) Nucleated RBC % Seg Neutrophils # Man Lymphocytes # (Manual) Monocytes # (Manual) PT INR D-Dimer POC ABG pH POC ABG pCO2 POC ABG pO2 Sodium Potassium Chloride Carbon Dioxide BUN 36 H Creatinine Glucose POC Glucose 176 H 131 H Lactic Acid Uric Acid Calcium Total Bilirubin AST ALT Total Creatine Kinase CK-MB (CK-2) CK-MB (CK-2) Rel Index Troponin T C-Reactive Protein NT-Pro-B Natriuret Pep Total Protein Albumin LDL Cholesterol Direct Urine WBC (Auto) 09/07/18 09/08/18 09/08/18 21:50 05:23 05:23 WBC RBC 2.72 L Hgb 8.5 L Hct 26.9 L MCV 99 H RDW 18.0 H Plt Count 136 L Lymph % (Auto) 13.1 L [place] % (Auto) 15.7 H Eos % (Auto) Baso % (Auto) 1.9 H Lymph # 0.7 L Seg Neuts % (Manual) Lymphocytes % (Manual) Monocytes % (Manual) Basophils % (Manual) Nucleated RBC % Seg Neutrophils # Man Lymphocytes # (Manual) Monocytes # (Manual) PT INR D-Dimer POC ABG pH POC ABG pCO2 POC ABG pO2 Sodium 134 L Potassium 5.2 H Chloride Carbon Dioxide BUN 36 H Creatinine Glucose POC Glucose 160 H Lactic Acid Uric Acid Calcium Total Bilirubin AST ALT Total Creatine Kinase CK-MB (CK-2) CK-MB (CK-2) Rel Index Troponin T C-Reactive Protein NT-Pro-B Natriuret Pep Total Protein Albumin LDL Cholesterol Direct Urine WBC (Auto) 09/08/18 09/08/18 09/09/18 12:33 16:57 05:52 WBC RBC 2.64 L Hgb 8.1 L Hct 25.2 L MCV 95 H RDW 17.8 H Plt Count Lymph % (Auto) [place] % (Auto) 14.3 H Eos % (Auto) Baso % (Auto) 1.9 H Lymph # 0.6 L Seg Neuts % (Manual) Lymphocytes % (Manual) Monocytes % (Manual) Basophils % (Manual) Nucleated RBC % Seg Neutrophils # Man Lymphocytes # (Manual) Monocytes # (Manual) PT INR D-Dimer POC ABG pH POC ABG pCO2 POC ABG pO2 Sodium Potassium Chloride Carbon Dioxide BUN Creatinine Glucose POC Glucose 198 H 195 H Lactic Acid Uric Acid Calcium Total Bilirubin AST ALT Total Creatine Kinase CK-MB (CK-2) CK-MB (CK-2) Rel Index Troponin T C-Reactive Protein NT-Pro-B Natriuret Pep Total Protein Albumin LDL Cholesterol Direct Urine WBC (Auto) 09/09/18 09/09/18 09/09/18 05:52 11:50 16:28 WBC RBC Hgb Hct MCV RDW Plt Count Lymph % (Auto) [place] % (Auto) Eos % (Auto) Baso % (Auto) Lymph # Seg Neuts % (Manual) Lymphocytes % (Manual) Monocytes % (Manual) Basophils % (Manual) Nucleated RBC % Seg Neutrophils # Man Lymphocytes # (Manual) Monocytes # (Manual) PT INR D-Dimer POC ABG pH POC ABG pCO2 POC ABG pO2 Sodium 136 L Potassium Chloride Carbon Dioxide BUN 34 H Creatinine Glucose POC Glucose 122 H 170 H Lactic Acid Uric Acid Calcium 8.1 L Total Bilirubin AST ALT Total Creatine Kinase CK-MB (CK-2) CK-MB (CK-2) Rel Index Troponin T C-Reactive Protein NT-Pro-B Natriuret Pep Total Protein Albumin LDL Cholesterol Direct Urine WBC (Auto) 09/09/18 09/10/18 09/10/18 22:02 05:09 05:09 WBC 3.9 L RBC 2.63 L Hgb 8.2 L Hct 25.0 L MCV 95 H RDW 17.4 H Plt Count Lymph % (Auto) [place] % (Auto) 15.9 H Eos % (Auto) Baso % (Auto) 2.0 H Lymph # 0.6 L Seg Neuts % (Manual) Lymphocytes % (Manual) Monocytes % (Manual) Basophils % (Manual) Nucleated RBC % Seg Neutrophils # Man Lymphocytes # (Manual) Monocytes # (Manual) PT INR D-Dimer POC ABG pH POC ABG pCO2 POC ABG pO2 Sodium Potassium 5.1 H Chloride Carbon Dioxide BUN 31 H Creatinine Glucose 106 H POC Glucose 144 H Lactic Acid Uric Acid Calcium 8.3 L Total Bilirubin AST ALT Total Creatine Kinase CK-MB (CK-2) CK-MB (CK-2) Rel Index Troponin T C-Reactive Protein NT-Pro-B Natriuret Pep Total Protein Albumin LDL Cholesterol Direct Urine WBC (Auto) 09/10/18 09/10/18 09/10/18 13:09 17:07 21:13 WBC RBC Hgb Hct MCV RDW Plt Count Lymph % (Auto) [place] % (Auto) Eos % (Auto) Baso % (Auto) Lymph # Seg Neuts % (Manual) Lymphocytes % (Manual) Monocytes % (Manual) Basophils % (Manual) Nucleated RBC % Seg Neutrophils # Man Lymphocytes # (Manual) Monocytes # (Manual) PT INR D-Dimer POC ABG pH POC ABG pCO2 POC ABG pO2 Sodium Potassium Chloride Carbon Dioxide BUN Creatinine Glucose POC Glucose 134 H 117 H 154 H Lactic Acid Uric Acid Calcium Total Bilirubin AST ALT Total Creatine Kinase CK-MB (CK-2) CK-MB (CK-2) Rel Index Troponin T C-Reactive Protein NT-Pro-B Natriuret Pep Total Protein Albumin LDL Cholesterol Direct Urine WBC (Auto) 09/11/18 09/11/18 09/11/18 06:00 06:00 09:11 WBC 3.5 L RBC 2.41 L Hgb 7.4 L Hct 23.0 L MCV 96 H RDW 18.1 H Plt Count Lymph % (Auto) [place] % (Auto) 15.3 H Eos % (Auto) 5.2 H Baso % (Auto) 2.6 H Lymph # 0.6 L Seg Neuts % (Manual) Lymphocytes % (Manual) Monocytes % (Manual) Basophils % (Manual) Nucleated RBC % Seg Neutrophils # Man Lymphocytes # (Manual) Monocytes # (Manual) PT INR D-Dimer POC ABG pH POC ABG pCO2 POC ABG pO2 Sodium Potassium 5.4 H Chloride Carbon Dioxide BUN 30 H Creatinine Glucose 108 H POC Glucose 124 H Lactic Acid Uric Acid Calcium Total Bilirubin AST ALT Total Creatine Kinase CK-MB (CK-2) CK-MB (CK-2) Rel Index Troponin T C-Reactive Protein NT-Pro-B Natriuret Pep Total Protein Albumin LDL Cholesterol Direct Urine WBC (Auto) 09/11/18 09/11/18 09/11/18 12:06 16:18 21:26 WBC RBC Hgb Hct MCV RDW Plt Count Lymph % (Auto) [place] % (Auto) Eos % (Auto) Baso % (Auto) Lymph # Seg Neuts % (Manual) Lymphocytes % (Manual) Monocytes % (Manual) Basophils % (Manual) Nucleated RBC % Seg Neutrophils # Man Lymphocytes # (Manual) Monocytes # (Manual) PT INR D-Dimer POC ABG pH POC ABG pCO2 POC ABG pO2 Sodium Potassium Chloride Carbon Dioxide BUN Creatinine Glucose POC Glucose 144 H 138 H 163 H Lactic Acid Uric Acid Calcium Total Bilirubin AST ALT Total Creatine Kinase CK-MB (CK-2) CK-MB (CK-2) Rel Index Troponin T C-Reactive Protein NT-Pro-B Natriuret Pep Total Protein Albumin LDL Cholesterol Direct Urine WBC (Auto) 09/12/18 09/12/18 09/12/18 09:17 09:17 11:16 WBC 4.0 L RBC 2.62 L Hgb 8.1 L Hct 25.0 L MCV 96 H RDW 17.8 H Plt Count Lymph % (Auto) [place] % (Auto) Eos % (Auto) Baso % (Auto) Lymph # Seg Neuts % (Manual) Lymphocytes % (Manual) Monocytes % (Manual) Basophils % (Manual) Nucleated RBC % Seg Neutrophils # Man Lymphocytes # (Manual) Monocytes # (Manual) PT INR D-Dimer POC ABG pH POC ABG pCO2 POC ABG pO2 Sodium Potassium 5.3 H Chloride Carbon Dioxide BUN 27 H Creatinine Glucose 113 H POC Glucose 147 H Lactic Acid Uric Acid Calcium Total Bilirubin AST ALT Total Creatine Kinase CK-MB (CK-2) CK-MB (CK-2) Rel Index Troponin T C-Reactive Protein NT-Pro-B Natriuret Pep Total Protein Albumin LDL Cholesterol Direct Urine WBC (Auto) 09/12/18 09/12/18 09/13/18 15:31 21:23 06:48 WBC 3.7 L RBC 2.49 L Hgb 7.7 L Hct 23.7 L MCV 95 H RDW 17.4 H Plt Count Lymph % (Auto) [place] % (Auto) Eos % (Auto) Baso % (Auto) Lymph # Seg Neuts % (Manual) Lymphocytes % (Manual) Monocytes % (Manual) Basophils % (Manual) Nucleated RBC % Seg Neutrophils # Man Lymphocytes # (Manual) Monocytes # (Manual) PT INR D-Dimer POC ABG pH POC ABG pCO2 POC ABG pO2 Sodium Potassium Chloride Carbon Dioxide BUN Creatinine Glucose POC Glucose 126 H 116 H Lactic Acid Uric Acid Calcium Total Bilirubin AST ALT Total Creatine Kinase CK-MB (CK-2) CK-MB (CK-2) Rel Index Troponin T C-Reactive Protein NT-Pro-B Natriuret Pep Total Protein Albumin LDL Cholesterol Direct Urine WBC (Auto) 09/13/18 09/13/18 09/13/18 06:48 16:49 21:44 WBC RBC Hgb Hct MCV RDW Plt Count Lymph % (Auto) [place] % (Auto) Eos % (Auto) Baso % (Auto) Lymph # Seg Neuts % (Manual) Lymphocytes % (Manual) Monocytes % (Manual) Basophils % (Manual) Nucleated RBC % Seg Neutrophils # Man Lymphocytes # (Manual) Monocytes # (Manual) PT INR D-Dimer POC ABG pH POC ABG pCO2 POC ABG pO2 Sodium Potassium 5.5 H Chloride Carbon Dioxide BUN 25 H Creatinine Glucose 106 H POC Glucose 112 H 117 H Lactic Acid Uric Acid Calcium Total Bilirubin AST ALT Total Creatine Kinase CK-MB (CK-2) CK-MB (CK-2) Rel Index Troponin T C-Reactive Protein NT-Pro-B Natriuret Pep Total Protein Albumin LDL Cholesterol Direct Urine WBC (Auto) 09/14/18 09/14/18 09/14/18 04:44 11:43 16:35 WBC RBC Hgb Hct MCV RDW Plt Count Lymph % (Auto) [place] % (Auto) Eos % (Auto) Baso % (Auto) Lymph # Seg Neuts % (Manual) Lymphocytes % (Manual) Monocytes % (Manual) Basophils % (Manual) Nucleated RBC % Seg Neutrophils # Man Lymphocytes # (Manual) Monocytes # (Manual) PT INR D-Dimer POC ABG pH POC ABG pCO2 POC ABG pO2 Sodium Potassium 5.1 H Chloride Carbon Dioxide BUN 23 H Creatinine Glucose 112 H POC Glucose 166 H 140 H Lactic Acid Uric Acid Calcium 8.2 L Total Bilirubin AST ALT Total Creatine Kinase CK-MB (CK-2) CK-MB (CK-2) Rel Index Troponin T C-Reactive Protein NT-Pro-B Natriuret Pep Total Protein Albumin LDL Cholesterol Direct Urine WBC (Auto) 09/14/18 09/15/18 09/15/18 21:44 11:41 16:34 WBC RBC Hgb Hct MCV RDW Plt Count Lymph % (Auto) [place] % (Auto) Eos % (Auto) Baso % (Auto) Lymph # Seg Neuts % (Manual) Lymphocytes % (Manual) Monocytes % (Manual) Basophils % (Manual) Nucleated RBC % Seg Neutrophils # Man Lymphocytes # (Manual) Monocytes # (Manual) PT INR D-Dimer POC ABG pH POC ABG pCO2 POC ABG pO2 Sodium Potassium Chloride Carbon Dioxide BUN Creatinine Glucose POC Glucose 172 H 143 H 144 H Lactic Acid Uric Acid Calcium Total Bilirubin AST ALT Total Creatine Kinase CK-MB (CK-2) CK-MB (CK-2) Rel Index Troponin T C-Reactive Protein NT-Pro-B Natriuret Pep Total Protein Albumin LDL Cholesterol Direct Urine WBC (Auto) 09/15/18 09/16/18 09/16/18 21:18 11:54 16:51 WBC RBC Hgb Hct MCV RDW Plt Count Lymph % (Auto) [place] % (Auto) Eos % (Auto) Baso % (Auto) Lymph # Seg Neuts % (Manual) Lymphocytes % (Manual) Monocytes % (Manual) Basophils % (Manual) Nucleated RBC % Seg Neutrophils # Man Lymphocytes # (Manual) Monocytes # (Manual) PT INR D-Dimer POC ABG pH POC ABG pCO2 POC ABG pO2 Sodium Potassium Chloride Carbon Dioxide BUN Creatinine Glucose POC Glucose 166 H 188 H 139 H Lactic Acid Uric Acid Calcium Total Bilirubin AST ALT Total Creatine Kinase CK-MB (CK-2) CK-MB (CK-2) Rel Index Troponin T C-Reactive Protein NT-Pro-B Natriuret Pep Total Protein Albumin LDL Cholesterol Direct Urine WBC (Auto) 09/16/18 09/17/18 09/17/18 22:05 04:51 04:51 WBC 3.5 L RBC 2.41 L Hgb 7.5 L Hct 22.9 L MCV 95 H RDW 16.6 H Plt Count Lymph % (Auto) [place] % (Auto) Eos % (Auto) Baso % (Auto) Lymph # Seg Neuts % (Manual) Lymphocytes % (Manual) Monocytes % (Manual) Basophils % (Manual) Nucleated RBC % Seg Neutrophils # Man Lymphocytes # (Manual) Monocytes # (Manual) PT INR D-Dimer POC ABG pH POC ABG pCO2 POC ABG pO2 Sodium Potassium Chloride Carbon Dioxide BUN 24 H Creatinine 1.6 H Glucose 116 H POC Glucose 182 H Lactic Acid Uric Acid Calcium 7.9 L Total Bilirubin AST ALT Total Creatine Kinase CK-MB (CK-2) CK-MB (CK-2) Rel Index Troponin T C-Reactive Protein NT-Pro-B Natriuret Pep Total Protein Albumin LDL Cholesterol Direct Urine WBC (Auto) 09/17/18 09/17/18 09/17/18 11:34 15:52 21:37 WBC RBC Hgb Hct MCV RDW Plt Count Lymph % (Auto) [place] % (Auto) Eos % (Auto) Baso % (Auto) Lymph # Seg Neuts % (Manual) Lymphocytes % (Manual) Monocytes % (Manual) Basophils % (Manual) Nucleated RBC % Seg Neutrophils # Man Lymphocytes # (Manual) Monocytes # (Manual) PT INR D-Dimer POC ABG pH POC ABG pCO2 POC ABG pO2 Sodium Potassium Chloride Carbon Dioxide BUN Creatinine Glucose POC Glucose 152 H 119 H 163 H Lactic Acid Uric Acid Calcium Total Bilirubin AST ALT Total Creatine Kinase CK-MB (CK-2) CK-MB (CK-2) Rel Index Troponin T C-Reactive Protein NT-Pro-B Natriuret Pep Total Protein Albumin LDL Cholesterol Direct Urine WBC (Auto) 09/18/18 09/18/18 09/18/18 05:23 08:09 12:19 WBC RBC Hgb Hct MCV RDW Plt Count Lymph % (Auto) [place] % (Auto) Eos % (Auto) Baso % (Auto) Lymph # Seg Neuts % (Manual) Lymphocytes % (Manual) Monocytes % (Manual) Basophils % (Manual) Nucleated RBC % Seg Neutrophils # Man Lymphocytes # (Manual) Monocytes # (Manual) PT INR D-Dimer POC ABG pH POC ABG pCO2 POC ABG pO2 Sodium Potassium Chloride Carbon Dioxide BUN 26 H Creatinine Glucose 112 H POC Glucose 106 H 190 H Lactic Acid Uric Acid Calcium 8.2 L Total Bilirubin AST ALT Total Creatine Kinase CK-MB (CK-2) CK-MB (CK-2) Rel Index Troponin T C-Reactive Protein NT-Pro-B Natriuret Pep Total Protein Albumin LDL Cholesterol Direct Urine WBC (Auto) 09/18/18 09/18/18 09/19/18 16:29 21:36 07:22 WBC RBC Hgb Hct MCV RDW Plt Count Lymph % (Auto) [place] % (Auto) Eos % (Auto) Baso % (Auto) Lymph # Seg Neuts % (Manual) Lymphocytes % (Manual) Monocytes % (Manual) Basophils % (Manual) Nucleated RBC % Seg Neutrophils # Man Lymphocytes # (Manual) Monocytes # (Manual) PT INR D-Dimer POC ABG pH POC ABG pCO2 POC ABG pO2 Sodium Potassium Chloride Carbon Dioxide BUN Creatinine Glucose POC Glucose 144 H 158 H 113 H Lactic Acid Uric Acid Calcium Total Bilirubin AST ALT Total Creatine Kinase CK-MB (CK-2) CK-MB (CK-2) Rel Index Troponin T C-Reactive Protein NT-Pro-B Natriuret Pep Total Protein Albumin LDL Cholesterol Direct Urine WBC (Auto) Allied health notes reviewed: RT
--- NOTE | 2018-09-19 16:39 | Event Note ---
Date: 09/19/18 Patient left before I was able to see them. Per Nursing staff, patient is clinically stable.
== END 2018-09-19 10:40 | DRG 870 ==
LOC: ED 03:56 → SUATTDRO 03:56 → CC1 06:30 → 4A 08-31 15:41 → 2B-ACE 09-13 16:33
PROVIDERS: ADMIT Internal Medicine; ATTEND Internal Medicine
PROC: 5A12012 Performance of Cardiac Output, Single, Manual (ICD-10-PCS; principal; 2018-08-21)
PROC: 5A1955Z Respiratory Ventilation, Greater than 96 Consecutive Hours (ICD-10-PCS; 2018-08-21)
PROC: 4A033R1 Measurement of Arterial Saturation, Peripheral, Percutaneous Approach (ICD-10-PCS; 2018-08-21)
PROC: 0BH17EZ Insertion of Endotracheal Airway into Trachea, Via Natural or Artificial Opening (ICD-10-PCS; 2018-08-21)
PROC: 06HY33Z Insertion of Infusion Device into Lower Vein, Percutaneous Approach (ICD-10-PCS; 2018-08-21)
PROC: 0D9670Z Drainage of Stomach with Drainage Device, Via Natural or Artificial Opening (ICD-10-PCS; 2018-08-22)
PROC: 05HY33Z Insertion of Infusion Device into Upper Vein, Percutaneous Approach (ICD-10-PCS; 2018-08-23)
PROC: 0JHL3XZ Insertion of Tunneled Vascular Access Device into Right Upper Leg Subcutaneous Tissue and Fascia, Percutaneous Approach (ICD-10-PCS; 2018-08-25)
PROC: 06HM33Z Insertion of Infusion Device into Right Femoral Vein, Percutaneous Approach (ICD-10-PCS; 2018-08-25)
PROC: B51B1ZA Fluoroscopy of Right Lower Extremity Veins using Low Osmolar Contrast, Guidance (ICD-10-PCS; 2018-08-25)
PROC: B54BZZA Ultrasonography of Right Lower Extremity Veins, Guidance (ICD-10-PCS; 2018-08-25)
PROC: 05JY3ZZ Inspection of Upper Vein, Percutaneous Approach (ICD-10-PCS; 2018-08-25)
PROC: B5181ZZ Fluoroscopy of Superior Vena Cava using Low Osmolar Contrast (ICD-10-PCS; 2018-08-25)
PROC: B51M1ZZ Fluoroscopy of Right Upper Extremity Veins using Low Osmolar Contrast (ICD-10-PCS; 2018-08-25)
PROC: 5A1D70Z Performance of Urinary Filtration, Intermittent, Less than 6 Hours Per Day (ICD-10-PCS; 2018-08-26)
PROC: 5A1D70Z Performance of Urinary Filtration, Intermittent, Less than 6 Hours Per Day (ICD-10-PCS; 2018-08-28)
PROC: 5A09357 Assistance with Respiratory Ventilation, Less than 24 Consecutive Hours, Continuous Positive Airway Pressure (ICD-10-PCS; 2018-08-30)
PROC: 5A09357 Assistance with Respiratory Ventilation, Less than 24 Consecutive Hours, Continuous Positive Airway Pressure (ICD-10-PCS; 2018-08-31)
PROC: 5A09357 Assistance with Respiratory Ventilation, Less than 24 Consecutive Hours, Continuous Positive Airway Pressure (ICD-10-PCS; 2018-09-03)
PROC: 0JPW3XZ Removal of Tunneled Vascular Access Device from Lower Extremity Subcutaneous Tissue and Fascia, Percutaneous Approach (ICD-10-PCS; 2018-09-04)
PROC: 06PY33Z Removal of Infusion Device from Lower Vein, Percutaneous Approach (ICD-10-PCS; 2018-09-04)
PROC: 5A09357 Assistance with Respiratory Ventilation, Less than 24 Consecutive Hours, Continuous Positive Airway Pressure (ICD-10-PCS; 2018-09-05)
PROC: 5A09357 Assistance with Respiratory Ventilation, Less than 24 Consecutive Hours, Continuous Positive Airway Pressure (ICD-10-PCS; 2018-09-07)
PROC: 5A09357 Assistance with Respiratory Ventilation, Less than 24 Consecutive Hours, Continuous Positive Airway Pressure (ICD-10-PCS; 2018-09-08)
PROC: 5A09357 Assistance with Respiratory Ventilation, Less than 24 Consecutive Hours, Continuous Positive Airway Pressure (ICD-10-PCS; 2018-09-09)
DX: A41.1 Sepsis due to other specified staphylococcus (principal); I46.9 Cardiac arrest, cause unspecified; J18.9 Pneumonia, unspecified organism; I21.A1 Myocardial infarction type 2; I50.21 Acute systolic (congestive) heart failure; J96.21 Acute and chronic respiratory failure with hypoxia; G92 Toxic encephalopathy; N17.0 Acute kidney failure with tubular necrosis; I13.0 Hypertensive heart and chronic kidney disease with heart failure and stage 1 through stage 4 chronic kidney disease, or unspecified chronic kidney disease; J44.1 Chronic obstructive pulmonary disease with (acute) exacerbation; J44.0 Chronic obstructive pulmonary disease with (acute) lower respiratory infection; Z68.42 Body mass index [BMI] 45.0-49.9, adult; G93.1 Anoxic brain damage, not elsewhere classified; K92.2 Gastrointestinal hemorrhage, unspecified; I42.9 Cardiomyopathy, unspecified; Z99.11 Dependence on respirator [ventilator] status; R65.20 Severe sepsis without septic shock; E87.5 Hyperkalemia; E66.01 Morbid (severe) obesity due to excess calories; N18.3 Chronic kidney disease, stage 3 (moderate); S03.02XA Dislocation of jaw, left side, initial encounter; G40.909 Epilepsy, unspecified, not intractable, without status epilepticus; E11.22 Type 2 diabetes mellitus with diabetic chronic kidney disease; S00.83XA Contusion of other part of head, initial encounter; X58.XXXA Exposure to other specified factors, initial encounter; E11.40 Type 2 diabetes mellitus with diabetic neuropathy, unspecified; G47.33 Obstructive sleep apnea (adult) (pediatric); Z82.49 Family history of ischemic heart disease and other diseases of the circulatory system; Z90.49 Acquired absence of other specified parts of digestive tract; Z79.899 Other long term (current) drug therapy; Z85.038 Personal history of other malignant neoplasm of large intestine; Z99.81 Dependence on supplemental oxygen; Z88.0 Allergy status to penicillin; Z87.891 Personal history of nicotine dependence; Y93.89 Activity, other specified; Y92.89 Other specified places as the place of occurrence of the external cause; Y99.8 Other external cause status; Z79.84 Long term (current) use of oral hypoglycemic drugs
CPT/HCPCS: 36415; 36558; 36600; 70450; 70486; 71045; 71250; 74018; 74176; 76770; 77001; 78582; 80048; 80053; 80061; 80074; 80177; 80202; 81001; 82140; 82550; 82553; 82803; 82962; 83735; 83880; 83930; 84132; 84484; 84550; 85007; 85025; 85027; 85379; 85610; 85730; 86140; 87040; 87070; 87076; 87086; 87186; 87205; 93005; 93010; 93306; 93970; 93975; 94002; 94003; 94640; 94644; 94660; 94760; 95819; G0378; A9540; A9558; C1750; C1769; J0171; J0360; J0690; J0885; J1205; J1644; J1815; J1940; J1953; J1956; J2250; J2270; J2704; J2765; J2785; J2920; J2930; J3010; J3370; J7030; J7040; J7070; Q9967

== ENCOUNTER 2018-10-18 12:07 | Emergency (ER) | payer MEDICARE ==
[2018-10-18 12:21] VITALS: BP 139/79
[2018-10-18 12:51] LABS: Basophils # (Auto) 0.1 K/mm3 (0.0-0.1); Eosinophils # (Auto) 0.3 K/mm3 (0.0-0.4); Eosinophils % (Auto) 5.8 % (0.0-4.3); Hematocrit 21.8 % (35.5-45.6); Hemoglobin 7.4 gm/dl (11.8-15.2); Lymphocytes # (Auto) 0.6 K/mm3 (1.2-5.4); Lymphocytes % (Auto) 10.7 % (13.4-35.0); Mean Corpuscular HGB Conc 34 % (32-34); Mean Corpuscular Volume 90 fl (84-94); Monocytes # (Auto) 0.6 K/mm3 (0.0-0.8); Monocytes % (Auto) 10.9 % (0.0-7.3); Platelet Count 180 K/mm3 (140-440); Red Blood Count 2.42 M/mm3 (3.65-5.03)
--- NOTE | 2018-10-18 12:55 | Emergency Department Report ---
ED General Adult HPI - General Chief complaint: Medical Clearance Stated complaint: HTN Time Seen by Provider: 10/18/18 12:34 Source: patient, EMS Mode of arrival: Stretcher Limitations: No Limitations - History of Present Illness Initial comments: Patient is 73 years old male with history of COPD, on oxygen at home and CPAP. Patient also has history of chronic kidney disease received dialysis while he was in the hospital recently. Patient brought to the emergency room via EMS from rehabilitation facility for hemoglobin of 6.8. Patient stated that blood was taken 2 days ago. Patient denied any current symptom except for his chronic shortness of breath for which he asked for CPAP. Patient denied any chest pain, abdominal pain, nausea or vomiting. Patient stated that he did not receive any dialysis since he left the hospital in August. - Related Data Home Medications Medication Instructions Recorded Confirmed Last Taken AtorvaSTATin [Lipitor] 10 mg PO QHS 08/21/18 08/21/18 Unknown Ferrous Sulfate [Feosol 325 MG tab] 325 mg PO QDAY 08/21/18 08/21/18 Unknown Melatonin [Melatonin 10MG CAP] 10 mg PO DAILY 08/21/18 08/21/18 Unknown Sennosides Tab [Senokot] 1 tab PO HS 08/21/18 08/21/18 Unknown Tamsulosin [Flomax] 2 cap PO HS 08/21/18 08/21/18 Unknown Venlafaxine HCl [Venlafaxin ER] 75 mg PO QDAY 08/21/18 08/21/18 Unknown buPROPion [Wellbutrin] 100 mg PO DAILY 08/21/18 08/21/18 Unknown Previous Rx's Medication Instructions Recorded Last Taken Type Arformoterol Nebu [Brovana Nebu] 15 mcg IH Q12HRT ml 09/18/18 Unknown Rx Budesonide [Pulmicort Respules] 0.5 mg IH Q12HRT nebu 09/18/18 Unknown Rx Hydralazine HCl 50 mg PO BID #60 tablet 09/18/18 Unknown Rx Ipratropium/Albuterol Sulfate 1 ampul IH BIDRT ampul.neb 09/18/18 Unknown Rx [DUONEB *Not for PRN Use*] levETIRAcetam [Keppra TAB] 750 mg PO BID #60 tablet 09/18/18 Unknown Rx Allergies Allergy/AdvReac Type Severity Reaction Status Date / Time Penicillins Allergy Unknown Verified 08/21/18 04:49 -cillins Allergy Unknown Uncoded 08/21/18 04:49 ED Review of Systems ROS: Stated complaint: HTN Other details as noted in HPI Comment: All other systems reviewed and negative Constitutional: denies: chills, fever Respiratory: shortness of breath Cardiovascular: denies: chest pain, palpitations, dyspnea on exertion Gastrointestinal: denies: abdominal pain, nausea, vomiting, diarrhea, constipation, hematemesis, melena, hematochezia ED Past Medical Hx - Past Medical History Hx Hypertension: Yes Hx Diabetes: Yes Hx Deep Vein Thrombosis: No Hx GERD: Yes Hx Liver Disease: Yes Hx Renal Disease: Yes Hx COPD: Yes Hx HIV: No Additional medical history: sleep apnea, lympedema, cellulitis, hx intestinal CA, [employer] [place] - Surgical History Hx Pacemaker: No Hx Internal Defibrillator: No Additional Surgical History: unknown - Social History Smoking Status: Never Smoker Substance Use Type: None - Medications Home Medications: Home Medications Medication Instructions Recorded Confirmed Last Taken Type AtorvaSTATin [Lipitor] 10 mg PO QHS 08/21/18 08/21/18 Unknown History Ferrous Sulfate [Feosol 325 MG tab] 325 mg PO QDAY 08/21/18 08/21/18 Unknown History Melatonin [Melatonin 10MG CAP] 10 mg PO DAILY 08/21/18 08/21/18 Unknown History Sennosides Tab [Senokot] 1 tab PO HS 08/21/18 08/21/18 Unknown History Tamsulosin [Flomax] 2 cap PO HS 08/21/18 08/21/18 Unknown History Venlafaxine HCl [Venlafaxin ER] 75 mg PO QDAY 08/21/18 08/21/18 Unknown History buPROPion [Wellbutrin] 100 mg PO DAILY 08/21/18 08/21/18 Unknown History Arformoterol Nebu [Brovana Nebu] 15 mcg IH Q12HRT ml 09/18/18 Unknown Rx Budesonide [Pulmicort Respules] 0.5 mg IH Q12HRT nebu 09/18/18 Unknown Rx Hydralazine HCl 50 mg PO BID #60 tablet 09/18/18 Unknown Rx Ipratropium/Albuterol Sulfate 1 ampul IH BIDRT ampul.neb 09/18/18 Unknown Rx [DUONEB *Not for PRN Use*] levETIRAcetam [Keppra TAB] 750 mg PO BID #60 tablet 09/18/18 Unknown Rx ED Physical Exam - General Limitations: No Limitations General appearance: alert, in no apparent distress - Head Head exam: Present: atraumatic, normocephalic, normal inspection - Eye Eye exam: Present: normal appearance, PERRL - ENT ENT exam: Present: normal exam, normal orophraynx, mucous membranes moist - Neck Neck exam: Present: normal inspection, full ROM. Absent: tenderness, meningismus, lymphadenopathy, thyromegaly - Respiratory Respiratory exam: Present: normal lung sounds bilaterally - Cardiovascular Cardiovascular Exam: Present: tachycardia - GI/Abdominal GI/Abdominal exam: Present: soft, normal bowel sounds. Absent: distended, tenderness, guarding, rebound, rigid, mass, bruit, pulsatile mass - Extremities Exam Extremities exam: Present: normal inspection, full ROM, normal capillary refill. Absent: calf tenderness - Back Exam Back exam: Present: normal inspection, full ROM. Absent: CVA tenderness (R), CVA tenderness (L) - Neurological Exam Neurological exam: Present: alert, oriented X3, CN II-XII intact - Skin Skin exam: Present: warm, intact, normal color ED Course Vital Signs 10/18/18 10/18/18 12:11 12:32 Temperature 98.6 F 98.6 F Pulse Rate 117 H 117 H Respiratory 22 Rate Blood Pressure 139/79 O2 Sat by Pulse 98 Oximetry ED Medical Decision Making - Lab Data Result diagrams: 10/18/18 Unknown 10/18/18 Unknown - EKG Data -: EKG Interpreted by Ut EKG shows normal: sinus rhythm Rate: tachycardia - EKG Data Interpretation: no acute changes - Radiology Data Radiology results: report reviewed - Medical Decision Making Patient is 73 years old male with history of COPD, on oxygen at home and CPAP. Patient also has history of chronic kidney disease received dialysis while he was in the hospital recently. Patient brought to the emergency room via EMS from rehabilitation facility for hemoglobin of 6.8. Patient stated that blood was taken 2 days ago. Patient denied any current symptom except for his chronic shortness of breath for which he asked for CPAP. Patient denied any chest pain, abdominal pain, nausea or vomiting. Patient stated that he did not receive any dialysis since he left the hospital in August. Patient remained asymptomatic in the emergency room. Hemoglobin came back at 7.4. Rest of the patient last reviewed that is unremarkable except for a slightly elevated creatinine. Chest x-ray showing bilateral opacity consistent with pulmonary edema. Patient indicated that his shortness of breath is same with no exacerbation now. Patient discharged back to the rehabilitation center and advised to follow-up with his primary care physician in the next 2-3 days and to return to the ER if patient develops any new symptoms. Critical care attestation.: If time is entered above; I have spent that time in minutes in the direct care of this critically ill patient, excluding procedure time. ED Disposition Clinical Impression: Anemia, Abnormal laboratory test result Disposition: - TO HOME OR SELFCARE Is pt being admited?: No Condition: Stable Instructions: Anemia (ED) Referrals: PRIMARY CARE [Primary Care Provider] - 3-5 Days
--- NOTE | 2018-10-18 13:06 | XRay Report ---
CHEST 1 VIEW 10/18/2018 12:43 PM INDICATION / CLINICAL INFORMATION: sob. COMPARISON: Chest x-ray on 09/04/2018. FINDINGS: SUPPORT DEVICES: None. HEART / MEDIASTINUM: Stable moderate cardiomegaly. LUNGS / PLEURA: Interval development of bilateral perihilar and infrahilar parenchymal opacities most likely reflecting pulmonary edema. No pneumothorax. ADDITIONAL FINDINGS: No significant additional findings. IMPRESSION: 1. Bilateral perihilar and infrahilar parenchymal opacities most likely reflecting pulmonary edema. A typical infectious process is also possible. Signer Name: Bulmaro Dewitt MD Signed: 10/18/2018 1:02 PM Workstation Name: [id number]
[2018-10-18 13:14] LABS: Albumin 2.9 g/dL (3.9-5); Bilirubin,Direct 0.2 mg/dL (0-0.2); Calcium 8.6 mg/dL (8.4-10.2)
[2018-10-18 13:37] LABS: INR 1.1 (0.87-1.13)
[2018-10-18 13:38] LABS: Partial Thromboplastin Time 31.9 Sec. (24.2-36.6)
== END 2018-10-18 16:40 | disposition home or self-care (01) ==
LOC: ED 12:07
DX: D64.9 Anemia, unspecified (principal); R79.89 Other specified abnormal findings of blood chemistry; E11.22 Type 2 diabetes mellitus with diabetic chronic kidney disease; I12.9 Hypertensive chronic kidney disease with stage 1 through stage 4 chronic kidney disease, or unspecified chronic kidney disease; N18.9 Chronic kidney disease, unspecified; J44.9 Chronic obstructive pulmonary disease, unspecified; Z99.81 Dependence on supplemental oxygen; G47.30 Sleep apnea, unspecified; Z85.068 Personal history of other malignant neoplasm of small intestine; Z88.0 Allergy status to penicillin; Z88.1 Allergy status to other antibiotic agents; Z79.899 Other long term (current) drug therapy
CPT/HCPCS: 36415; 71045; 80048; 80076; 82962; 85025; 85610; 85730; 86850; 86900; 86901; 93005; 93010